=== PATIENT | male | born 1950 | race Caucasian/White ===

== ENCOUNTER → 2017-10-13 13:36 | Outpatient (CLI) | payer MEDICARE, SELFPAY ==
[2017-10-13 14:50] LABS: Prostate Specific Ag, Diagnost 7.73 ng/mL (0.0-4.0)
== END ==
PROVIDERS: Visit Provider Urology
DX: R97.20 Elevated prostate specific antigen [PSA] (principal)
CPT/HCPCS: 36415; 84153

== ENCOUNTER → 2017-10-31 13:07 | Outpatient (CLI) | payer MEDICARE, SELFPAY ==
--- NOTE | 2017-10-31 13:09 | XR_ITS ---
XR foot wt bearing LT 3V HISTORY: Left foot pain ORDERING PHYSICIAN: Aleena Tobin DPM PATIENT AGE: 67 years COMPARISON: None FINDINGS: No fracture or dislocation. No lytic or blastic change. There is normal mineralization.. Minimal osteoarthritic changes at the first metatarsophalangeal joint with minimal pes planus. Vascular calcifications are present. Small bone island involves the proximal phalanx of the second toe distally. IMPRESSION: 1. No acute finding. 2. Minimal osteoarthritic change first metatarsophalangeal joint with mild pes planus
== END ==
PROVIDERS: Visit Provider Podiatrist
DX: M79.673 Pain in unspecified foot (principal); B35.1 Tinea unguium
CPT/HCPCS: 73630; 87102; 87206; 87220

== ENCOUNTER → 2017-11-07 09:15 | Outpatient (CLI) | payer MEDICARE, OTHER, SELFPAY ==
--- NOTE | 2017-11-07 09:21 | US_ITS ---
US Arterial Ankle Brachial Ind ITS.REASON: skin changes, previous smoker ORDERING PHYSICIAN: Aleena Tobin DPM PATIENT AGE: 67 years TECHNIQUE: Segmental pressures obtained of both right and left leg. These are compared to brachial blood pressure to yield index at each level sampled including summary CORY. The data sheets from the procedure are available in PACS FINDINGS Rest study only performed today No prior studies available for comparison. Blood pressures reported are in millimeters mercury. RIGHT LEG CORY = 1.4. Right TBI is 1.0 Brachial BP: 169 Thigh BP: 173 Calf BP: 226 Ankle PT: 235 Ankle DP : 226 Digit =168 LEFT LEG CORY = 1.4 Left TBI is 0.8 Brachial BPD: 155 Thigh BP: 178 Calf BP: 247 Ankle PT:238 Ankle DP: 228 Digit = 133 Pulses and waveforms: Normal IMPRESSION: The ABIs as reported above are upper limits of normal at. The TBI's are within normal limits. Waveforms and pulses are unremarkable.
== END ==
PROVIDERS: Family Provider Nurse Practitioner Family; PCP Nurse Practitioner Family; Visit Provider Podiatrist
DX: R09.89 Other specified symptoms and signs involving the circulatory and respiratory systems (principal); R23.4 Changes in skin texture
CPT/HCPCS: 93922

== ENCOUNTER → 2018-04-19 08:45 | Outpatient (CLI) | payer MEDICARE, OTHER, SELFPAY ==
[2018-04-19 09:32] LABS: Blood Urea Nitrogen 12 mg/dL (7-18); Creatinine,Serum 0.98 mg/dL (0.70-1.30); Estimated Glomerular Filt Rate 77 ml/min (>60); GFR (African American) 93 ML/MIN (>60)
--- NOTE | 2018-04-19 09:44 | CT_ITS ---
CT chest w con HISTORY: Anemia, acute hemorrhagic anemia ITS.REASON: ANEMIA ORDERING PHYSICIAN: Olga Licea PATIENT AGE: 67 years COMPARISON: None TECHNIQUE: Axial images obtained following the administration of 75 mL of Isovue 370 . Sagittal, and coronal reformatted images are also generated and reviewed. All CT scans at the facility use one or more dose reduction, viz: automated exposure control, ma/kV adjustment per patient size (including targeted exams where dose is matched to indication, i.e. head), or iterative reconstruction technique. FINDINGS: No mediastinal or hilar mass or adenopathy. There are coronary artery calcifications present. No evidence of aortic aneurysm or dissection. No central pulmonary embolus. No central obstructing lesions are evident. No suspicious pulmonary masses. There is bronchiectasis involving the right lower lobe bronchi with bronchial thickening with some mild right basilar atelectasis. A nodular opacity is present in the right lung base medially at 8 mm and may contain some central calcification No lobar consolidation or collapse. There are minimal fibrotic changes in left apex. There are mild degenerative changes in the thoracic spine. IMPRESSION: 1. Mild diffuse bronchiectasis in the basilar segments of the right lower lobe with mild atelectatic change. 2. Otherwise negative the chest with contrast
--- NOTE | 2018-04-19 09:45 | CT_ITS ---
CT abdomen pelvis w con CLINICAL INDICATION: ITS.REASON: ANEMIA ORDERING PHYSICIAN: Olga Licea PATIENT AGE: 67 years COMPARISON: None TECHNIQUE: Axial images obtained with sagittal and coronal reformats. All CT scans at the facility use one or more dose reduction, viz: automated exposure control, ma/kV adjustment per patient size (including targeted exams where dose is matched to indication, i.e. head), or iterative reconstruction technique. PROCEDURE: Oral Contrast: Redicat IV Contrast: 75 mL of Isovue-370 performed in conjunction with chest CT. FINDINGS: The liver, gallbladder, spleen, adrenal glands, and pancreas have an unremarkable appearance. There are punctate bilateral renal calculi measuring up to 3 mm in the lower pole on the right and 3 mm in the mid polar region on the left. No renal mass or hydronephrosis. No ureteral calculi. No evidence of appendicitis or diverticulitis. There is mild diffuse diverticulosis of the descending and sigmoid colon. No pelvic mass abnormal fluid collection or focal inflammatory change evident within the pelvis. The prostate measures approximately 4 x 5 x 3.7 cm. Prior left inguinal hernia repair. There are degenerative changes in the lumbar spine with bulging disc at L2-L3, L3-L4, L4-L5, and L5-S1 IMPRESSION: 1. No acute abdominal or pelvic findings. 2. Diffuse diverticulosis of the descending and sigmoid colon. 3. Nonobstructing bilateral renal calculi. 4. Mild prostate enlargement
== END ==
PROVIDERS: Family Provider Nurse Practitioner Family; PCP Nurse Practitioner Family; Visit Provider Nurse Practitioner Family
DX: D62 Acute posthemorrhagic anemia (principal)
CPT/HCPCS: 36415; 71260; 74177; 82565; 84520; Q9967

== ENCOUNTER → 2018-08-14 08:51 | Outpatient (POV) | payer MEDICARE, OTHER, SELFPAY | PROVIDERS: Visit Provider Nurse Practitioner Acute Care | DX: Z00.00 Encounter for general adult medical examination without abnormal findings (principal) ==

== ENCOUNTER → 2018-11-09 11:45 | Outpatient (CLI) | payer MEDICARE, OTHER, SELFPAY ==
[2018-11-11 06:42] LABS: PSA, Free 7.24 ng/mL; Prostate Specific Ag 14.8 ng/mL (0.0-4.0)
== END ==
PROVIDERS: Visit Provider Urology
DX: R97.20 Elevated prostate specific antigen [PSA] (principal)
CPT/HCPCS: 36415; 84153; 84154

== ENCOUNTER → 2019-02-26 14:13 | Outpatient (POV) | payer MEDICARE, OTHER, SELFPAY | PROVIDERS: PCP Nurse Practitioner Family; Visit Provider Nurse Practitioner Family | DX: Z00.00 Encounter for general adult medical examination without abnormal findings (principal) ==

== ENCOUNTER → 2019-03-08 14:01 | Outpatient (CLI) | payer MEDICARE, OTHER, SELFPAY ==
[2019-03-08 14:37] LABS: Basophils % 0.5 % (0.1-2.0); Eosinophils # 0.2 K/mm3 (0.0-0.4); Eosinophils % 2.7 % (0.1-12.0); Hematocrit 39.5 % (42.0-52.0); Hemoglobin 13.1 g/dL (14.1-18.0); Lymphocytes # 1.5 K/mm3 (0.7-4.5); Lymphocytes % 16.3 % (10-50); Mean Corpuscular HGB Conc 33.3 g/dL (31.8-35.4); Mean Corpuscular Hemoglobin 31.1 pg (27.0-31.2); Mean Corpuscular Volume 93.3 fl (80-94); Mean Platelet Volume 6.8 fl (7.4-10.4); Monocytes # 0.6 K/mm3 (0.1-1.0); Monocytes % 6.7 % (1.7-9.3); Neutrophils # 6.8 K/mm3 (1.8-7.8); Platelet Count 202 K/mm3 (142-424); Red Blood Count 4.23 M/mm3 (4.60-6.20); Red Cell Distribution Width 13.1 % (11.5-17.5); White Blood Count 9.2 K/mm3 (4.8-10.8)
[2019-03-08 16:36] LABS: Alanine Aminotransferase 19 U/L (12-78); Albumin Level 3.8 gm/dL (3.4-5.0); Albumin/Globulin Ratio 1.5 (1.1-1.8); Alkaline Phosphatase 68 U/L (46-116); Anion Gap 11.6 mEq/L (5-15); Aspartate Amino Transferase 17 U/L (15-37); Bilirubin,Total 0.4 mg/dL (0.2-1.0); Blood Urea Nitrogen 12 mg/dL (7-18); C-Reactive Protein 0.3 mg/dL (0.0-0.9); Calcium 8.6 mg/dL (8.5-10.1); Carbon Dioxide 27 mmol/L (21.0-32.0); Chloride 104 mmol/L (98-107); Creatinine,Serum 1.06 mg/dL (0.70-1.30); Estimated Glomerular Filt Rate 70 ml/min (>60); Ferritin 25 ng/mL (8-388); GFR (African American) 85 ML/MIN (>60); Globulin 2.6 gm/dl (1.3-3.2); Glucose 89 mg/dL (74-106); Potassium 3.6 mmoL/L (3.5-5.1); Sodium 139 mmol/L (136-145); Total Protein,Serum 6.4 gm/dL (6.4-8.2)
[2019-03-08 16:39] LABS: Prostate Specific Ag, Diagnost 4.56 ng/mL (0.0-4.0)
[2019-03-08 17:38] LABS: Erythrocyte Sedimentation Rate 17 mm/hr (0-20)
[2019-03-10 08:26] LABS: Iron 79 ug/dL (38-169); UIBC 203 ug/dL (111-343)
[2019-03-10 12:50] LABS: Iron Saturation 28 % (15-55)
[2019-03-10 12:51] LABS: Vitamin B12 811 pg/mL (232-1245); Vitamin D 25 Hydroxy 35.8 ng/mL (30.0-100.0)
== END ==
PROVIDERS: Nurse Practitioner Family; Visit Provider Urology
DX: R97.20 Elevated prostate specific antigen [PSA] (principal); K51.90 Ulcerative colitis, unspecified, without complications; K92.1 Melena
CPT/HCPCS: 36415; 80053; 82607; 82652; 82728; 83540; 83550; 84153; 85025; 85651; 86140

== ENCOUNTER → 2019-04-16 15:51 | Outpatient (POV) | payer MEDICARE, OTHER, SELFPAY | PROVIDERS: PCP Nurse Practitioner; Visit Provider Nurse Practitioner Family | DX: Z00.00 Encounter for general adult medical examination without abnormal findings (principal) ==

== ENCOUNTER → 2019-06-21 12:38 | Outpatient (CLI) | payer MEDICARE, OTHER, SELFPAY ==
[2019-06-22 10:48] LABS: PSA, Free 5.57 ng/mL; Prostate Specific Ag 12.2 ng/mL (0.0-4.0)
== END ==
PROVIDERS: Visit Provider Urology
DX: R97.20 Elevated prostate specific antigen [PSA] (principal); N39.9 Disorder of urinary system, unspecified
CPT/HCPCS: 36415; 84153; 84154

== ENCOUNTER → 2020-06-23 13:39 | Outpatient (CLI) | payer MEDICARE, OTHER, SELFPAY ==
[2020-06-25 11:53] LABS: PSA, Free 3.53 ng/mL; Prostate Specific Ag 8.9 ng/mL (0.0-4.0)
== END ==
PROVIDERS: Visit Provider Urology
DX: R97.20 Elevated prostate specific antigen [PSA] (principal)
CPT/HCPCS: 36415; 84153; 84154

== ENCOUNTER → 2021-01-29 10:20 | Outpatient (CLI) | payer MEDICARE, OTHER, SELFPAY ==
--- NOTE | 2021-01-29 10:23 | CT_ITS ---
PROCEDURE: CT CHEST WO/W CON CLINCAL INDICATION: COUGH Cough and left-sided chest COMPARISON: CT CHESTW CT chest w con from 04/19/2018 TECHNIQUE: IV Contrast: 75ml Isovue 370 Axial images obtained with sagittal and coronal reformats. All CT scans at the facility use one or more dose reduction, viz: automated exposure control, ma/kV adjustment per patient size (including targeted exams where dose is matched to indication, i.e. head), or iterative reconstruction technique. FINDINGS: HEART AND MEDIASTINAL STRUCTURES: No mediastinal or hilar mass or adenopathy. Coronary artery calcifications are present. The LUNGS AND PLEURAL SPACES: There is some scarring in the left apex. The right hemidiaphragm is elevated with atelectatic changes in the right lower lobe. Bronchiectasis is noted in the right lower lobe. 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 This has developed since the previous exam BONY STRUCTURES: There is an old 8th rib fracture posterior laterally on the left which was not present previously. There is also widening of the left 7th and 8th rib interspace with some herniation of lung into that interspace laterally. Has the patient had interval surgery or trauma on the left? Pleural thickening is present at the region of the 8th rib fracture. Atelectatic or fibrotic changes are present in the left lung base posterior laterally. ADDITIONAL FINDINGS: Fatty liver IMPRESSION: Persistent bronchiectasis in the right lower lobe. 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 There is some minimal pleural calcification between the 7th and 8th rib. Dictated by: Justice Santiago MD 01/29/2021 12:33 Justice Santiago MD in [place] 01/29/2021 12:33
[2021-01-29 11:08] LABS: Chloride 105 mmol/L (98-107)
[2021-01-29 11:09] LABS: Potassium 4.2 mmoL/L (3.5-5.1); Sodium 138 mmol/L (136-145)
[2021-01-29 11:11] LABS: Alanine Aminotransferase 16 U/L (12-78); Alkaline Phosphatase 79 U/L (38-126); Anion Gap 12.2 mEq/L (5-15); Aspartate Amino Transferase 28 U/L (17-59); Bilirubin,Total 0.7 mg/dl (0.2-1.3); Blood Urea Nitrogen 6 mg/dl (9-20); Carbon Dioxide 25 mmol/L (22.0-30.0); Estimated Glomerular Filt Rate 84 ml/min (>60); GFR (African American) 102 ML/MIN (>60)
[2021-01-29 11:12] LABS: Albumin Level 4.1 g/dl (3.5-5.0); Albumin/Globulin Ratio 1.5 (1.1-1.8); Globulin 2.7 g/dL (1.3-3.2); Glucose 97 mg/dl (74-100); Total Protein,Serum 6.8 g/dl (6.3-8.2)
== END ==
PROVIDERS: PCP Nurse Practitioner; Visit Provider Nurse Practitioner
DX: R05 Cough (principal); I10 Essential (primary) hypertension
CPT/HCPCS: 36415; 71270; 80053; Q9967

== ENCOUNTER → 2021-03-03 11:27 | Outpatient (CLI) | payer MEDICARE, OTHER, SELFPAY ==
[2021-03-03 10:40] VITALS: PULSE 78; PULSE 80
== END ==
PROVIDERS: PCP Nurse Practitioner; Visit Provider Internal Medicine Pulmonary Disease
DX: R06.00 Dyspnea, unspecified (principal)
CPT/HCPCS: 94060; 94618; 94640; 94726; 94729

== ENCOUNTER → 2021-03-06 12:42 | Outpatient (CLI) | payer MEDICARE, OTHER, SELFPAY | PROVIDERS: PCP Nurse Practitioner; Visit Provider Internal Medicine Pulmonary Disease | DX: R06.00 Dyspnea, unspecified (principal) | CPT/HCPCS: 94762 ==

== ENCOUNTER → 2021-06-23 13:27 | Outpatient (CLI) | payer MEDICARE, OTHER, SELFPAY ==
[2021-06-25 08:16] LABS: Prostate Specific Ag 10.3 ng/mL (0.0-4.0)
== END ==
PROVIDERS: Visit Provider Urology
DX: R97.20 Elevated prostate specific antigen [PSA] (principal)
CPT/HCPCS: 36415; 84153; 84154

== ENCOUNTER → 2021-10-29 11:12 | Outpatient (CLI) | payer MEDICARE, OTHER, SELFPAY ==
[2021-10-29 14:29] LABS: Alanine Aminotransferase 27 U/L (12-78); Albumin Level 3.7 g/dl (3.5-5.0); Albumin/Globulin Ratio 1.5 (1.1-1.8); Alkaline Phosphatase 61 U/L (38-126); Anion Gap 9.4 mEq/L (5-15); Aspartate Amino Transferase 27 U/L (17-59); Basophils # 0.1 K/mm3 (0-0.2); Basophils % 0.7 % (0.1-2.0); Bilirubin,Total 0.6 mg/dl (0.2-1.3); Blood Urea Nitrogen 12 mg/dl (9-20); Calcium 8.3 mg/dl (8.4-10.2); Carbon Dioxide 26 mmol/L (22.0-30.0); Chloride 106 mmol/L (98-107); Eosinophils # 0.2 K/mm3 (0.0-0.4); Eosinophils % 2.5 % (0.1-12.0); Estimated Glomerular Filt Rate 96 ml/min (>60); GFR (African American) 116 ML/MIN (>60); Globulin 2.4 g/dL (1.3-3.2); Glucose 146 mg/dl (74-100); Hematocrit 37.2 % (42.0-52.0); Hemoglobin 12.4 g/dL (14.1-18.0); Lymphocytes # 1.5 K/mm3 (0.7-4.5); Mean Corpuscular HGB Conc 33.4 g/dL (31.8-35.4); Mean Corpuscular Volume 95.8 fl (80-94); Mean Platelet Volume 7.9 fl (7.4-10.4); Monocytes # 0.5 K/mm3 (0.1-1.0); Monocytes % 6.7 % (1.7-9.3); Neutrophils # 5.6 K/mm3 (1.8-7.8); Platelet Count 181 K/mm3 (142-424); Potassium 3.4 mmoL/L (3.5-5.1); Red Blood Count 3.89 M/mm3 (4.60-6.20); Red Cell Distribution Width 14.4 % (11.5-17.5); Sodium 138 mmol/L (136-145); Total Protein,Serum 6.1 g/dl (6.3-8.2); White Blood Count 7.8 K/mm3 (4.8-10.8)
[2021-10-29 14:47] LABS: 25-OH Vitamin D, Total 33.4 ng/mL (30-100)
[2021-10-29 15:18] LABS: Vitamin B12 762 pg/mL (239-931)
== END ==
PROVIDERS: Visit Provider Nurse Practitioner Family
DX: K52.9 Noninfective gastroenteritis and colitis, unspecified (principal); E55.9 Vitamin D deficiency, unspecified; R14.0 Abdominal distension (gaseous)
CPT/HCPCS: 36415; 80053; 82306; 82607; 85025

== ENCOUNTER → 2021-11-12 09:03 | Outpatient (CLI) | payer MEDICARE, OTHER, SELFPAY ==
[2021-11-12 14:30] LABS: Iron 84 ug/dL (49-181)
[2021-11-12 14:39] LABS: Total Iron Binding Capacity 337 ug/dL (261-462)
[2021-11-12 15:05] LABS: Ferritin 13.5 ng/ml (17.9-464)
== END ==
PROVIDERS: Visit Provider Nurse Practitioner Family
DX: D64.9 Anemia, unspecified (principal)
CPT/HCPCS: 36415; 82728; 83540; 83550

== ENCOUNTER → 2021-12-05 09:00 | Outpatient (CLI) | payer MEDICARE, OTHER, SELFPAY ==
[2021-12-08 14:37] LABS: Occult Blood,Stool Negative (Negative)
== END ==
PROVIDERS: Visit Provider Nurse Practitioner Family
DX: D64.9 Anemia, unspecified (principal)
CPT/HCPCS: 82272; G0328

== ENCOUNTER → 2021-12-06 09:40 | Outpatient (CLI) | payer MEDICARE, OTHER, SELFPAY ==
[2021-12-08 14:38] LABS: Occult Blood,Stool Negative (Negative)
== END ==
PROVIDERS: Visit Provider Nurse Practitioner Family
DX: D64.9 Anemia, unspecified (principal)
CPT/HCPCS: 82272; G0328

== ENCOUNTER → 2021-12-07 09:20 | Outpatient (CLI) | payer MEDICARE, OTHER, SELFPAY ==
[2021-12-08 14:38] LABS: Occult Blood,Stool Negative (Negative)
== END ==
PROVIDERS: Visit Provider Nurse Practitioner Family
DX: D64.9 Anemia, unspecified (principal)
CPT/HCPCS: 82272; G0328

== ENCOUNTER 2024-06-06 06:56 | Day surgery (SDC) | payer MEDICARE, OTHER, SELFPAY ==
[2024-06-05 08:33] VITALS: BMI 38.0
[2024-06-06 07:12] VITALS: BP 156/81; PULSE 86; RESP 16; TEMP 36.6; O2SAT 96
[2024-06-06] MEDS: LACTATED RINGERS 1000ML 1,000 ML 25 ML IV (07:19)
--- NOTE | 2024-06-06 07:24 | EXP.ANES.CKL ---
[facility] Disclaimer: The information contained in this section may have been updated after the patient was seen, as this information can be updated by other users. Medical History Seasonal allergies BPH (benign prostatic hyperplasia) Hypertension Surgical History History of bilateral knee arthroplasty H/O colonoscopy Family History Other No significant family history Social History Smoking Status: Never smoker alcohol intake: current alcohol intake frequency: a few times a month substance use type: denies use current occupational status: employed Travel in the last 8 weeks: None household members: spouse housing: house caffeine: No [facility] Anesthesia Checklist Patient Identification Patient Identification: Arm Band Structural Data Admitted From: Home Planned Operative Procedure/s: Colonoscopy Consent for Planned Operative Procedure(s) Verified: Yes Verified Documents: Surgical Consent and History and Physical NPO Status Verified Time NPO: 00:00 Additional verifications Anesthesia Reactions: No Hx Blood Transfusions: No Blood Transfusion Reaction: No Airway Assessment Mallampati Score:: Class II C-Spine Mobility Assessed: Yes TMJ Mobility Assessed: Yes Dentition: Dentures-good fit (removed) Neurological Assessment Level of Consciousness: Awake, Alert and Appropriate Anesthesia Plan Anesthesia Risk discussed: Yes Anesthesia Plan: Verified ASA Class: II Anesthesia Type: MAC
[2024-06-06 07:56] VITALS: O2SAT 96
--- NOTE | 2024-06-06 07:59 | P.HP_ITS ---
History of Present Illness *Admission Date: 06/06/24 *Reason for visit:: Personal history of adenomatous colon polyps *History of present illness: Mr. Mendieta is a 73-year-old gentleman who is here for surveillance colonoscopy secondary to a personal history of adenomatous polyps. He had a colonoscopy in May 2018 and had a 6 to 7 mm ascending tubular adenoma removed. He had another colonoscopy last year with me at which time a large advanced adenoma was removed. The examination is deemed medically necessary for colonoscopy. The patient has been seen, interviewed and examined prior to the procedure by both myself and the anesthesia provider. [facility] Disclaimer: The information contained in this section may have been updated after the patient was seen, as this information can be updated by other users. Medical History (Updated 06/06/24 @ 08:00 by Drake Mix II, MD) Seasonal allergies BPH (benign prostatic hyperplasia) Hypertension Surgical History History of bilateral knee arthroplasty H/O colonoscopy Family History Other No significant family history Social History Smoking Status: Never smoker alcohol intake: current alcohol intake frequency: a few times a month substance use type: denies use current occupational status: employed Travel in the last 8 weeks: None household members: spouse housing: house caffeine: No Other Medical History Have you received the Flu Vaccine for this season: Yes Have you received the Pneumonia Vaccine: Yes Review of Systems Review of Systems Review of systems (narrative): Negative *Cardiovascular Comments: Negative *Gastrointestinal Comments: Negative *Genitourinary Comments: Negative *Musculoskeletal Comments: Negative *Neurologic Comments: Negative Meds Home Medications and Allergies Home Medications ?Medication ?Instructions ?Recorded ?Confirmed ?Type finasteride 5 mg tablet 5 mg PO DAILY prostate 10/13/17 06/05/24 History lorazepam 1 mg tablet 0.5 mg PO QHS Anxiety 10/13/17 06/05/24 History montelukast 10 mg tablet 10 mg PO QHS allergies 10/13/17 06/05/24 History duloxetine 30 mg capsule,delayed 30 mg PO BID Depression 10/31/17 06/05/24 History release tamsulosin 0.4 mg capsule 0.4 mg PO DAILY prostate 04/13/18 06/05/24 History trazodone 150 mg tablet 150 mg PO DAILY sleep 04/13/18 06/05/24 History sulfasalazine 500 mg tablet 0.5 g PO BID 11/09/18 06/05/24 History albuterol sulfate 90 mcg/actuation 1 inh inhalation QID PRN shortness 02/05/21 06/05/24 Rx aerosol inhaler of breath or wheezing #8.5 grams azelastine 137 mcg (0.1 %) nasal 1 spray intranasal BID #30 mL 02/05/21 06/05/24 Rx spray esomeprazole magnesium 40 mg 40 mg PO DAILY #30 caps 02/05/21 06/05/24 Rx capsule,delayed release (Nexium) fluticasone propionate 50 1 spray intranasal DAILY #16 grams 02/05/21 06/05/24 Rx mcg/actuation nasal spray,suspension (Children's Flonase Allergy Relief) gabapentin 300 mg capsule 300 mg PO TID 02/05/21 06/05/24 History loratadine 10 mg tablet (Allergy 10 mg PO DAILY 02/05/21 06/05/24 History Relief (loratadine)) losartan 100 mg tablet 100 mg PO DAILY 02/05/21 06/05/24 History New Prescriptions to Start Prescriptions: Allergies Allergy/AdvReac Type Severity Reaction Status Date / Time No Known Allergies Allergy Verified 06/06/24 07:11 Exam Data for Last 24 hours Vital signs and Labs for Last 24 Hours: Temp Pulse Resp BP Pulse Ox O2 Del Method 97.8 F 86 16 156/81 H 96 Room Air 06/06/24 07:12 06/06/24 07:12 06/06/24 07:12 06/06/24 07:12 06/06/24 07:12 06/06/24 07:12 I & O for Last 24 hours: Intake & Output 06/03/24 06/04/24 06/05/24 06/06/24 23:59 23:59 23:59 23:59 Weight 250 lb *Routine HEENT Exam Head: Present normocephalic Eye: Present EOMI and PERRL ENT: Present mucous membranes moist *Routine Neck Exam Neck: Present supple *Routine Respiratory Exam Respiratory: Present CTA bilaterally *Routine Cardiovascular Exam Cardiovascular: Present RRR *Routine Abdominal Exam Abdominal: Present soft and normoactive bowel sounds; Absent tenderness *Routine Rectal Exam Rectal:: deferred *Routine Genitalia Exam Genitalia:: deferred *Routine Extremities Exam Extremities: Absent cyanosis, clubbing or edema *Routine Skin Exam Skin: Present warm; Absent rash *Routine Neurological Exam Neurological: Present alert and oriented X3 Assessment and Plan *Assessment and plan (1) Personal history of adenomatous and serrated colon polyps: Status: Acute Category: Medical Code(s): Z86.0101 - Personal history of adenomatous and serrated colon polyps Plan A/P: 1. Personal history of adenomatous polyps is the preprocedural diagnosis. The patient will be anesthetized/sedated using MAC sedation. The patient has been seen and examined. Cardiac and lung assessment prior to the examination is stable. Proceed with planned colonoscopy
--- NOTE | 2024-06-06 08:03 | HMH.PROCNOTE ---
[facility] Procedure Note Date: 06/06/24 Time: 08:21 Procedure Note:: Colonoscopy Procedure Report: Colonoscopy with cold snare polypectomy Endoscopist: Drake Mix II, MD Referring physician: BARRON Sexton Date of Procedure: June 06, 2024 Equipment: Olympus 190 variable stiffness pediatric colonoscope Sedation: MAC sedation Indication: Mr. Mendieta is a 73-year-old gentleman with a personal history of Colon polyps. He had a colonoscopy in May 2018 at which time a single ascending 6 to 7 mm tubular adenoma was removed. His follow-up surveillance colonoscopy last year revealed a larger advanced adenoma and adenomatous polyps. He is here for repeat surveillance. The patient reports no abdominal pain, weight loss, change in his bowel habits or rectal bleeding. He reports no family history of colon cancer. Procedure: Prior to the procedure, a history and physical exam was performed, and patient's medications and allergies were reviewed. The risks, benefits and alternatives of the sedation and procedure were discussed with the patient. All questions were answered and informed consent was obtained. The patient was brought to the procedure room. Patient identification and proposed procedure were verified by the physician and the nurse. The patient was placed in a left lateral decubitus position and the scope was passed under direct vision. Throughout the procedure, the patient's blood pressure, pulse, and oxygen saturations were monitored continuously. The colonoscopy was accomplished without difficulty. The patient tolerated the procedure well. Findings: On digital rectal examination there was normal rectal tone. There were no external hemorrhoids. The prostate was 2+, mildly firm but symmetric without nodules. The colonoscope was introduced through the anal canal to the rectum and advanced to the cecum. The ileocecal valve and appendiceal orifice were identified. The scope was advanced a short distance into the ileum which appeared grossly normal. The scope was then withdrawn into the colon. There were 6 polyps (cecum x 1 (4 mm), ascending x 2 (4 and 8 mm) and descending x 3 (3, 4 and 4 mm)). These were all removed via cold snare polypectomy. The remaining cecum, ascending and transverse colon and mucosa were grossly normal. There were scattered extensive diverticuli throughout the descending and sigmoid colon (LEFT colon). The rectum itself was normal. Upon retroflexion within the rectum there were grade 2 internal hemorrhoids. The preparation was excellent throughout with [place] Preparation Score of 9. The cecal time was 14 minutes. Impression: 1. Diminutive colonic polyps x 6 2. Extensive left-sided diverticulosis 3. Grade 2 internal hemorrhoids Plan: I will follow-up the polyp histology and recommend repeat surveillance colonoscopy in 3 years based upon his personal history of multiple adenomatous polyps and advanced adenoma. I would continue psyllium fiber supplementation on a maintenance basis.
[2024-06-06 08:26] VITALS: BP 102/65; PULSE 86; RESP 16; TEMP 36.6; O2SAT 91
[2024-06-06 08:36] VITALS: BP 104/66; PULSE 81; RESP 16; O2SAT 93
[2024-06-06 08:46] VITALS: BP 114/76; PULSE 87; RESP 18; O2SAT 93
[2024-06-06 08:56] VITALS: BP 127/68; PULSE 92; RESP 18; O2SAT 94
== END 2024-06-06 09:05 | disposition home or self-care (01) ==
PROVIDERS: PCP Nurse Practitioner; Visit Provider Internal Medicine Gastroenterology
PROC: (CPT 45385; principal; 2024-06-06 08:30)
DX: Z86.0101 Personal history of adenomatous and serrated colon polyps (principal); K63.5 Polyp of colon; K57.30 Diverticulosis of large intestine without perforation or abscess without bleeding; K64.1 Second degree hemorrhoids
CPT/HCPCS: 45385; 88305; J7120

== ENCOUNTER 2024-07-29 15:36 | Emergency (ER) | payer MEDICARE, OTHER, SELFPAY ==
[2024-07-29 15:38] VITALS: BP 174/105; PULSE 93; RESP 20; TEMP 36.8; O2SAT 93; BMI 36.9
--- NOTE | 2024-07-29 15:38 | ED_ITS ---
<Statement entered by India Clements DO - 07/29/24 18:43> I was consulted by the HORACIO, and we discussed the complexity of the problems being addressed. I approved the treatment and management plan for this patient's care in the emergency department, thus performing a substantive portion of the medical decision making. India Clements DO Discharge Plan Disposition Patient Disposition: Home, Self-Care Condition: Good Prescriptions Prescriptions: New prednisone 50 mg tablet 50 mg PO DAILY 5 Days Qty: 5 0RF albuterol sulfate 90 mcg/actuation HFA aerosol inhaler 1 inh inhalation Q4H PRN (Reason: shortness of breath or wheezing) Qty: 8.5 0RF [id number] [Bromfed DM] 2-30-10 mg/5 mL syrup 5 ml PO Q4H PRN (Reason: sinus symptoms) Qty: 118 0RF doxycycline hyclate 100 mg capsule 100 mg PO BID 10 Days Qty: 20 0RF No Action lorazepam 1 mg tablet 0.5 mg PO QHS montelukast 10 mg tablet 10 mg PO QHS finasteride 5 mg tablet 5 mg PO DAILY tamsulosin 0.4 mg capsule 0.4 mg PO DAILY trazodone 150 mg tablet 150 mg PO DAILY sulfasalazine 500 mg tablet 0.5 g PO BID losartan 100 mg tablet 100 mg PO DAILY loratadine [Allergy Relief (loratadine)] 10 mg tablet 10 mg PO DAILY gabapentin 300 mg capsule 300 mg PO TID azelastine 137 mcg (0.1 %) aerosol,spray 1 spray INTRANASAL BID Qty: 30 3RF Rx Instructions: administer into each nostril fluticasone propionate [Children's Flonase Allergy Rlf] 50 mcg/actuation spray,suspension 1 spray INTRANASAL DAILY Qty: 16 4RF Rx Instructions: administer into each nostril albuterol sulfate 90 mcg/actuation HFA aerosol inhaler 1 inh INHALATION QID PRN (Reason: shortness of breath or wheezing) Qty: 8.5 12RF esomeprazole magnesium [Nexium] 40 mg capsule,delayed release(DR/EC) 40 mg PO DAILY Qty: 30 2RF duloxetine 30 mg capsule,delayed release(DR/EC) 30 mg PO BID Referrals Follow up/Referrals: Maya Torres, [facility] [Primary Care Provider] - See instructions Chelsey Larsen MD [Physician] - See instructions Activity Restrictions/Add. Instructions Additional Instructions/Restrictions: Please take your antibiotic till it is all gone. Please call tomorrow to make your appointment with pulmonology. Follow-up with your PCP if your symptoms do not improve change or worsen or return to the ER as needed. Clinical Impressions Clinical Impression: Bronchiectasis Qualifiers: Bronchiectasis type: with acute lower respiratory infection Qualified Code(s): J47.0 - Bronchiectasis with acute lower respiratory infection Print Language Print Language: Urdu Discharge ED Provider: India Clements HPI <SOILA Johns - Last Filed: 07/29/24 18:30> General Chief Complaint: Shortness of Breath/Dyspnea Stated Complaint: SOA,congestion Time Seen by Provider: 07/29/24 15:38 History of Present Illness HPI narrative: Patient presents for 3 days of increasing shortness of breath/dyspnea. Patient reports that he has been feeling short of breath with a deep coarse nonproductive cough as well. He denies fever chills hemoptysis hematochezia melena nausea vomiting diarrhea chest pain headache diaphoresis. He does have a known history of bronchiectasis but is not on maintenance medication currently according to him. Related Data Home Medications ?Medication ?Instructions ?Recorded ?Confirmed finasteride 5 mg tablet 5 mg PO DAILY prostate 10/13/17 06/05/24 lorazepam 1 mg tablet 0.5 mg PO QHS Anxiety 10/13/17 06/05/24 montelukast 10 mg tablet 10 mg PO QHS allergies 10/13/17 06/05/24 duloxetine 30 mg capsule,delayed 30 mg PO BID Depression 10/31/17 06/05/24 release tamsulosin 0.4 mg capsule 0.4 mg PO DAILY prostate 04/13/18 06/05/24 trazodone 150 mg tablet 150 mg PO DAILY sleep 04/13/18 06/05/24 sulfasalazine 500 mg tablet 0.5 g PO BID 11/09/18 06/05/24 gabapentin 300 mg capsule 300 mg PO TID 02/05/21 06/05/24 loratadine 10 mg tablet (Allergy 10 mg PO DAILY 02/05/21 06/05/24 Relief (loratadine)) losartan 100 mg tablet 100 mg PO DAILY 02/05/21 06/05/24 Previous Rx's ?Medication ?Instructions ?Recorded albuterol sulfate 90 mcg/actuation 1 inh inhalation QID PRN shortness 02/05/21 aerosol inhaler of breath or wheezing #8.5 grams azelastine 137 mcg (0.1 %) nasal 1 spray intranasal BID #30 mL 02/05/21 spray esomeprazole magnesium 40 mg 40 mg PO DAILY #30 caps 02/05/21 capsule,delayed release (Nexium) fluticasone propionate 50 1 spray intranasal DAILY #16 grams 02/05/21 mcg/actuation nasal spray,suspension (Children's Flonase Allergy Relief) albuterol sulfate 90 mcg/actuation 1 inh inhalation Q4H PRN shortness 07/29/24 aerosol inhaler of breath or wheezing #8.5 grams kqoxjfouwjqeinu-jwmypjpxkyfhetj-FZ 5 ml PO Q4H PRN sinus symptoms 07/29/24 2 mg-30 mg-10 mg/5 mL oral syrup #118 mL (Bromfed DM) doxycycline hyclate 100 mg capsule 100 mg PO BID 10 days #20 caps 07/29/24 prednisone 50 mg tablet 50 mg PO DAILY 5 days #5 tabs 07/29/24 Allergies Allergy/AdvReac Type Severity Reaction Status Date / Time No Known Allergies Allergy Verified 06/06/24 07:11 [facility] <SOILA Johns - Last Filed: 07/29/24 18:30> [facility] Disclaimer: The information contained in this section may have been updated after the patient was seen, as this information can be updated by other users. Medical History (Updated 07/29/24 @ 17:02 by SOILA Johns) Seasonal allergies BPH (benign prostatic hyperplasia) Hypertension Surgical History History of bilateral knee arthroplasty H/O colonoscopy Family History Other No significant family history Social History Smoking Status: Never smoker alcohol intake: current alcohol intake frequency: a few times a month substance use type: denies use current occupational status: employed Travel in the last 8 weeks: None household members: spouse housing: house caffeine: No Have you lived/traveled outside [place] in past 30 days?: No Contact w/someone who lives/traveled outside [place] past 30 days?: No Exposure to someone with infectious disease in past 14 days?: No Do you have a fever (greater than 100.4 F or 38 C)?: No Have you tested positive for COVID-19: No Exposed to someone with COVID-19 in past 14 days?: No Do you have a sore throat?: No Do you have a cough?: Yes Do you have any weakness?: No Do you have any diarrhea?: No Are you experiencing any unusual bleeding?: No Do you have any muscle aches/pain?: No Do you have any abdominal pain?: No Are you experiencing loss of taste or smell?: No Other Medical History Have you received the Flu Vaccine for this season: Yes Have you received the Pneumonia Vaccine: Yes <SOILA Johns - Last Filed: 07/29/24 18:30> ROS Obtained: Yes Systems reviewed as appropriate & no additional complaints except as documented Physical Exam <SOILA Johns - Last Filed: 07/29/24 18:30> General General appearance: alert and in no apparent distress Respiratory Respiratory exam: Present normal lung sounds bilaterally Cardiovascular Cardiovascular exam: Present regular rate Neurological Exam Neurological exam: Present alert and oriented X3 HEART Score <SOILA Johns - Last Filed: 07/29/24 18:30> HEART Score HEART Score assessment performed?: Yes History (anamnesis): Slightly suspicious ECG: Non-specific disturbance Age: >65 years Risk factors: 3 or more risk factors Troponin: </= normal limit HEART Score: 5 Critical Care <SOILA Johns - Last Filed: 07/29/24 18:30> Critical Care Time Critical Care Time: No Medical Decision Making <SOILA Johns - Last Filed: 07/29/24 18:30> Medical Records Medical records reviewed: Yes I reviewed the patient's medical records. Joel Inquiry Pt receiving controlled substance: No Vital Signs Vital Signs: 07/29/24 15:38 07/29/24 16:00 07/29/24 16:30 Temperature 98.2 F Temperature Source Oral Pulse Rate 92 H 91 H Pulse Rate [Right Radial] 93 H Respiratory Rate 20 13 20 Blood Pressure 156/85 H 146/80 H Blood Pressure [Right Arm] 174/105 H Blood Pressure Mean [Right Arm] 128 02 Sat by Pulse Oximetry 93 L 91 L 92 L Oxygen Delivery Method Room Air Room Air Room Air 07/29/24 17:20 Temperature 97.8 F Temperature Source Oral Pulse Rate 84 Pulse Rate [Right Radial] Respiratory Rate 21 Blood Pressure 146/80 H Blood Pressure [Right Arm] Blood Pressure Mean [Right Arm] 02 Sat by Pulse Oximetry Oxygen Delivery Method Room Air Lab Data Lab results reviewed: Yes I reviewed the patient's lab results. Labs: Lab Results 07/29/24 15:40: SARS-CoV-2 (PCR) Not detected, Influenza Type A (PCR) Not detected, Influenza Type B (PCR) Not detected, RSV (PCR) Not detected, Rhinovirus (PCR) Not detected 07/29/24 15:46: WBC 9.1, RBC 4.10 L, Hgb 12.6 L, Hct 37.0 L, MCV 90.2, MCH 30.7, MCHC 34.1, RDW 12.9, Plt Count 233, MPV 9.5, Neut % (Auto) 64.8, Lymph % (Auto) 18.8, Harmon % (Auto) 9.2, Eos % (Auto) 5.4, Baso % (Auto) 0.9, Neut # (Auto) 5.9, Lymph # (Auto) 1.7, Harmon # (Auto) 0.8, Eos # (Auto) 0.5 H, Baso # (Auto) 0.1, PT 10.8, INR 0.96, D-Dimer 0.93 H, Sodium 141, Potassium 3.7, Chloride 104, Carbon Dioxide 31 H, Anion Gap 9.7, BUN 12, Creatinine 0.90, Estimated Creat Clear 109, Estimated GFR 83, Est GFR ( Amer) 101, Glucose 97, Calcium 8.9, Total Bilirubin 0.3, AST 33, ALT 25, Alkaline Phosphatase 67, Troponin I < 0.01, NT-Pro-B Natriuret Pep 46.4, Total Protein 6.7, Albumin 4.0, Globulin 2.7, Albumin/Globulin Ratio 1.5, Procalcitonin 0.049, TSH 2.82, Free T4 Index 1.9 L, Thyroxine (T4) 5.4 L, T3 Uptake 35 07/29/24 15:51: VBG pH 7.37, VBG pCO2 45.6, VBG pO2 54.6 H, VBG HCO3 25.8, VBG Total CO2 27.2 H, VBG O2 Saturation 87.0 H, VBG Base Excess 0.5, VBG Lactic Acid 1.8, Urine Color Yellow, Urine Appearance Clear, Urine pH 7.5, Ur Specific [place] 1.020, Urine Protein Negative, Urine Glucose (UA) Negative, Urine Ketones Negative, Urine Blood Negative, Urine Nitrate Negative, Urine Bilirubin Negative, Urine Urobilinogen 0.2, Ur Leukocyte Esterase Negative, Urine RBC None, Urine WBC Occasional, Ur Squamous Epith Cells Occasional, Urine Bacteria Trace 07/29/24 15:46 07/29/24 15:46 Response Orders (Tests/Meds): ED MEDICATIONS Discontinued Medications Generic Name Dose Route Start Last Admin Trade Name Freq PRN Reason Stop Dose Admin Albuterol/Ipratropium 3 ml 07/29/24 15:49 07/29/24 16:17 Ipratropium/Albuterol 3 Ml Neb IH 07/29/24 15:50 3 ml ONCE ONE Administration Dexamethasone Sodium Phosphate 10 mg 07/29/24 15:49 07/29/24 16:17 Dexamethasone 4mg/Ml 5ml Mdv IV 07/29/24 15:50 10 mg ONCE ONE Administration Doxycycline Hyclate 100 mg 07/29/24 17:03 07/29/24 17:12 Doxycycline Hycl 100 Mg Tablet PO 07/29/24 17:04 100 mg ONCE ONE Administration ORDERS Category Date Time Status Chest XR 2 view (NOT portable) [XR chest 2V] Stat Exams 07/29/24 15:49 Completed BNP [NT Pro Brain Natriuretic Pep.] Stat Lab 07/29/24 15:46 Completed CBC w/Auto Diff [Complete Blood Count Auto Diff] Stat Lab 07/29/24 15:46 Completed CMP [Comprehensive Metabolic Panel] Stat Lab 07/29/24 15:46 Completed D-Dimer Stat Lab 07/29/24 15:46 Completed INR [Prothrombin Time INR] Stat Lab 07/29/24 15:46 Completed Mini Respiratory Panel Stat Lab 07/29/24 15:40 Completed Procalcitonin Stat Lab 07/29/24 15:46 Completed Thyroid Panel Stat Lab 07/29/24 15:46 Completed Trop I [Troponin I] Stat Lab 07/29/24 15:46 Completed UA [Urinalysis and Microscopic] Stat Lab 07/29/24 15:51 Completed Blood Culture Stat Micro 07/29/24 15:51 Received VBG [Venous Blood Gas] Stat RT 07/29/24 15:51 Completed MDM Narrative Medical Decision Narrative: In summary patient is a 73-year-old male who presents to the emergency department for evaluation of cough and shortness of breath. Patient is initially hypertensive at 174/105 with a pulse of 93 breathing 20 times a minute satting at 93% on room air upon arrival, and afebrile at 98.2. Physical exam is remarkable for tachypnea and increased work of breathing but no accessory muscle use currently, breath sounds show late inspiratory and expiratory wheezes/rales. Heart sounds are normal patient has 2+ dependent edema in the bilateral lower extremities but denies history of heart failure or heart attack. Differential diagnosis includes bronchiectasis flare versus lower respiratory tract infection versus ACS versus CHF etc. Initial workup will be conducted with hematologic labs respiratory swabs urinalysis plain film chest x-ray. Initial interventions include DuoNeb Decadron for now. Initial workup reviewed by me and his CBC shows a white count of 9.1 with no shift, INR is 0.96, D-dimer 0.93 and via years criteria patient is excluded for PE, VBG shows a pH of 7.37 with a pCO2 of 45.6 venous blood gas shows a lactate of 1.8, CMP is significant for CO2 of 31 and the remainder of his CMP is nonactionable, his initial troponin is undetectable at less than 0.01, urinalysis is bland with no protein or blood or ketones, and his respiratory panel is negative for flu COVID RSV and rhinovirus. My informal interpretation of his plain film chest x-ray shows questionable opacities in the right lower lobe prior to radiology read.. Upon repeat evaluation patient actually is breathing better is not coughing now after initial interventions. Breath sounds are now clear and equal bilaterally to the bases. Given this patient is appropriate for discharge with a prescription for prednisone albuterol inhaler and a prescription for doxycycline with the first dose given here. He will also be referred back to pulmonology for further evaluation and ongoing management. <India Clements, DO - Last Filed: 07/29/24 17:39> Vital Signs Vital Signs: 07/29/24 15:38 07/29/24 16:00 07/29/24 16:30 Temperature 98.2 F Temperature Source Oral Pulse Rate 92 H 91 H Pulse Rate [Right Radial] 93 H Respiratory Rate 20 13 20 Blood Pressure 156/85 H 146/80 H Blood Pressure [Right Arm] 174/105 H Blood Pressure Mean [Right Arm] 128 02 Sat by Pulse Oximetry 93 L 91 L 92 L Oxygen Delivery Method Room Air Room Air Room Air 07/29/24 17:20 Temperature 97.8 F Temperature Source Oral Pulse Rate 84 Pulse Rate [Right Radial] Respiratory Rate 21 Blood Pressure 146/80 H Blood Pressure [Right Arm] Blood Pressure Mean [Right Arm] 02 Sat by Pulse Oximetry Oxygen Delivery Method Room Air Lab Data Labs: Lab Results 07/29/24 15:40: SARS-CoV-2 (PCR) Not detected, Influenza Type A (PCR) Not detected, Influenza Type B (PCR) Not detected, RSV (PCR) Not detected, Rhinovirus (PCR) Not detected 07/29/24 15:46: WBC 9.1, RBC 4.10 L, Hgb 12.6 L, Hct 37.0 L, MCV 90.2, MCH 30.7, MCHC 34.1, RDW 12.9, Plt Count 233, MPV 9.5, Neut % (Auto) 64.8, Lymph % (Auto) 18.8, Harmon % (Auto) 9.2, Eos % (Auto) 5.4, Baso % (Auto) 0.9, Neut # (Auto) 5.9, Lymph # (Auto) 1.7, Harmon # (Auto) 0.8, Eos # (Auto) 0.5 H, Baso # (Auto) 0.1, PT 10.8, INR 0.96, D-Dimer 0.93 H, Sodium 141, Potassium 3.7, Chloride 104, Carbon Dioxide 31 H, Anion Gap 9.7, BUN 12, Creatinine 0.90, Estimated Creat Clear 109, Estimated GFR 83, Est GFR ( Amer) 101, Glucose 97, Calcium 8.9, Total Bilirubin 0.3, AST 33, ALT 25, Alkaline Phosphatase 67, Troponin I < 0.01, NT-Pro-B Natriuret Pep 46.4, Total Protein 6.7, Albumin 4.0, Globulin 2.7, Albumin/Globulin Ratio 1.5, Procalcitonin 0.049, TSH 2.82, Free T4 Index 1.9 L, Thyroxine (T4) 5.4 L, T3 Uptake 35 07/29/24 15:51: VBG pH 7.37, VBG pCO2 45.6, VBG pO2 54.6 H, VBG HCO3 25.8, VBG Total CO2 27.2 H, VBG O2 Saturation 87.0 H, VBG Base Excess 0.5, VBG Lactic Acid 1.8, Urine Color Yellow, Urine Appearance Clear, Urine pH 7.5, Ur Specific [place] 1.020, Urine Protein Negative, Urine Glucose (UA) Negative, Urine Ketones Negative, Urine Blood Negative, Urine Nitrate Negative, Urine Bilirubin Negative, Urine Urobilinogen 0.2, Ur Leukocyte Esterase Negative, Urine RBC None, Urine WBC Occasional, Ur Squamous Epith Cells Occasional, Urine Bacteria Trace Response Orders (Tests/Meds): ED MEDICATIONS Discontinued Medications Generic Name Dose Route Start Last Admin Trade Name Freq PRN Reason Stop Dose Admin Albuterol/Ipratropium 3 ml 07/29/24 15:49 07/29/24 16:17 Ipratropium/Albuterol 3 Ml Neb IH 07/29/24 15:50 3 ml ONCE ONE Administration Dexamethasone Sodium Phosphate 10 mg 07/29/24 15:49 07/29/24 16:17 Dexamethasone 4mg/Ml 5ml Mdv IV 07/29/24 15:50 10 mg ONCE ONE Administration Doxycycline Hyclate 100 mg 07/29/24 17:03 07/29/24 17:12 Doxycycline Hycl 100 Mg Tablet PO 07/29/24 17:04 100 mg ONCE ONE Administration ORDERS Category Date Time Status Chest XR 2 view (NOT portable) [XR chest 2V] Stat Exams 07/29/24 15:49 Completed BNP [NT Pro Brain Natriuretic Pep.] Stat Lab 07/29/24 15:46 Completed CBC w/Auto Diff [Complete Blood Count Auto Diff] Stat Lab 07/29/24 15:46 Completed CMP [Comprehensive Metabolic Panel] Stat Lab 07/29/24 15:46 Completed D-Dimer Stat Lab 07/29/24 15:46 Completed INR [Prothrombin Time INR] Stat Lab 07/29/24 15:46 Completed Mini Respiratory Panel Stat Lab 07/29/24 15:40 Completed Procalcitonin Stat Lab 07/29/24 15:46 Completed Thyroid Panel Stat Lab 07/29/24 15:46 Completed Trop I [Troponin I] Stat Lab 07/29/24 15:46 Completed UA [Urinalysis and Microscopic] Stat Lab 07/29/24 15:51 Completed Blood Culture Stat Micro 07/29/24 15:51 Received VBG [Venous Blood Gas] Stat RT 07/29/24 15:51 Completed ECG Data Tracing #1: Attestation: I reviewed this ECG and interpreted as documented below: ECG Narrative: First-degree AV block with a ventricular rate of 88 bpm. PVCs noted. No acute STEMI. ECG initial impression date: 07/29/24 ECG initial impression time: 15:48
--- NOTE | 2024-07-29 15:46 | ECG_ITS ---
APPROVED REPORT Exam: Resting ECG HR:88 bpm ECG Measurements Heart Rate 88 AXES QRSd 125 QRS -50 QT 359 T 76 QTc 405 Conclusion UNCERTAIN IRREGULAR RHYTHM POSSIBLE RIGHT VENTRICULAR CONDUCTION DELAY [RSR (QR) IN V1/V2] LEFT ANTERIOR FASCICULAR BLOCK [QRS AXIS <= -45, QR IN I, RS IN II] NONSPECIFIC T-WAVE ABNORMALITY Electronically signed by : KIMBERLY CASAREZ, 07/29/2024 23:40:46
--- NOTE | 2024-07-29 15:49 | XR_ITS ---
PROCEDURE INFORMATION: Exam: XR Chest Exam date and time: 07/29/2024 3:52 PM Age: 73 years old Clinical indication: Cough and dyspnea TECHNIQUE: Imaging protocol: Radiologic exam of the chest. Views: 2 views. COMPARISON: CT CHEST WO/W CON 01/29/2021 11:27 AM FINDINGS: Tubes, catheters and devices: Neurostimulator overlies the thoracic canal Lungs: Opacity in the right middle lobe and right lower lobe may represent atelectasis or pneumonia. Pleural spaces: Unremarkable. No pleural effusion. No pneumothorax. Heart/Mediastinum: Unremarkable. No cardiomegaly. Bones/joints: Unremarkable. IMPRESSION: Opacity in the right middle lobe and right lower lobe may represent atelectasis or pneumonia.
[2024-07-29 16:00] VITALS: BP 156/85; PULSE 92; RESP 13; O2SAT 91
[2024-07-29 16:03] LABS: Basophils # 0.1 K/mm3 (0-0.2); Basophils % 0.9 % (0.1-2.0); Eosinophils # 0.5 K/mm3 (0.0-0.4); Eosinophils % 5.4 % (0.1-12.0); Hemoglobin 12.6 g/dL (14.1-18.0); Lymphocytes # 1.7 K/mm3 (0.7-4.5); Lymphocytes % 18.8 % (10-50); Mean Corpuscular HGB Conc 34.1 g/dL (31.8-35.4); Mean Corpuscular Hemoglobin 30.7 pg (27.0-31.2); Mean Corpuscular Volume 90.2 fl (80-94); Mean Platelet Volume 9.5 fl (7.4-10.4); Monocytes # 0.8 K/mm3 (0.1-1.0); Monocytes % 9.2 % (1.7-9.3); Neutrophils # 5.9 K/mm3 (1.8-7.8); Neutrophils % 64.8 % (37.0-80.0); Platelet Count 233 K/mm3 (142-424); Red Cell Distribution Width 12.9 % (11.5-17.5); White Blood Count 9.1 K/mm3 (4.8-10.8)
[2024-07-29 16:09] LABS: Alanine Aminotransferase 25 U/L (12-78); Albumin/Globulin Ratio 1.5 (1.1-1.8); Anion Gap 9.7 mEq/L (5-15); Aspartate Amino Transferase 33 U/L (17-59); Bilirubin,Total 0.3 mg/dl (0.2-1.3); Blood Urea Nitrogen 12 mg/dl (9-20); Calcium 8.9 mg/dl (8.4-10.2); Carbon Dioxide 31 mmol/L (22.0-30.0); Chloride 104 mmol/L (98-107); Creatinine Clearance Estimated 109 mL/min (50-200); Estimated Glomerular Filt Rate 83 ml/min (>60); GFR (African American) 101 ML/MIN (>60); Globulin 2.7 g/dL (1.3-3.2); Glucose 97 mg/dl (74-100); Potassium 3.7 mmoL/L (3.5-5.1); Sodium 141 mmol/L (136-145); Total Protein,Serum 6.7 g/dl (6.3-8.2)
[2024-07-29 16:10] LABS: Alkaline Phosphatase 67 U/L (38-126); INR 0.96 (0.9-1.1); Prothrombin Time 10.8 seconds (10.1-12.5)
[2024-07-29 16:15] LABS: Lactate Venous 1.8 mmol/L (0.4-2.0); VBG Base Excess 0.5 mmol/L (-2.4-2.3); VBG HCO3 25.8 mmol/L (23-30); VBG PCO2 45.6 mmol/L (35-51); VBG PH 7.37 mmol/L (7.31-7.41); VBG PO2 54.6 mmol/L (28-40); VBG Total CO2 27.2 mmol/L (23-27)
[2024-07-29 16:16] LABS: D-Dimer 0.93 ug/mL (0.0-0.5)
[2024-07-29] MEDS: IPRATROPIUM/ALBUTEROL 3 ML NEB IH (16:17)
[2024-07-29] MEDS: DEXAMETHASONE 4MG/ML 5ML MDV 10 MG IV (16:17)
[2024-07-29 16:19] LABS: Coronavirus 19, PCR Not Detected (NotDetected); Human Rhinovirus Not Detected (NotDetected); Influenza A, PCR Not Detected (NotDetected); Influenza B, PCR Not Detected (NotDetected); Respiratory Syncytial Virus Not Detected (NotDetected)
[2024-07-29 16:21] LABS: NT Pro Brain Natriuretic Pep. 46.4 pg/mL (0-125); Troponin I < 0.01 ng/ml (0.00-0.034)
[2024-07-29 16:26] LABS: Procalcitonin 0.049 ng/mL (0.0-2.0)
[2024-07-29 16:30] VITALS: BP 146/80; PULSE 91; RESP 20; O2SAT 92
[2024-07-29 16:40] LABS: Free Thyroxine Index 1.9 ug/dL (5.93-13.13); T4 (Thyroxine) 5.4 ug/dl (5.53-11.0); Triiodothryronine (T3) Uptake 35 % (23.5-40.5)
[2024-07-29 16:54] LABS: Thyroid Stimulating Hormone 2.82 uIU/mL (0.465-4.68)
[2024-07-29 16:55] LABS: Microscopic, Urine URINE MICROSCOPIC (MICROSCOPIC)
[2024-07-29 16:56] LABS: Appearance,Urine CLEAR (Clear); Bilirubin,Urine Negative (Negative); Blood, Urine Negative (Negative); Color,Urine YELLOW (Yellow); Glucose,Urine (UA) Negative (Negative); Ketones,Urine Negative (Negative); Leukocyte Esterase,Urine Negative (Negative); Nitrate,Urine Negative (Negative); PH,Urine 7.5 (5.0-8.5); Protein,Urine Negative (Negative); Urobilinogen,Urine 0.2 EU/dl (0.2)
[2024-07-29] MEDS: DOXYCYCLINE HYCL 100 MG TABLET PO (17:12)
[2024-07-29 17:20] VITALS: BP 146/80; PULSE 84; RESP 21; TEMP 36.6; O2SAT 89
[2024-07-29 17:40] LABS: Squamous Epithelial Cell,Urine Occasional #/hpf (0-5); WBC,Urine Occasional #/hpf (0-3)
[2024-07-29 17:41] LABS: Bacteria,Urine Trace /lpf
== END 2024-07-29 17:21 | disposition home or self-care (01) ==
PROVIDERS: Physician Assistant; Emergency Provider Emergency Medicine; PCP Nurse Practitioner
DX: J47.0 Bronchiectasis with acute lower respiratory infection (principal); R06.02 Shortness of breath; R06.00 Dyspnea, unspecified; R05.9 Cough, unspecified; R09.81 Nasal congestion
CPT/HCPCS: 71046; 80053; 81001; 82803; 83880; 84145; 84436; 84443; 84479; 84484; 85025; 85378; 85610; 87040; 87631; 93005; 96374; 99284; J1100; J7620

== ENCOUNTER 2025-07-06 10:14 | Outpatient (CLI) | payer MEDICARE, OTHER, SELFPAY ==
--- OUTSIDE RECORDS SUMMARY | 2022-12-01 11:56 | XMS_ITS | Encounter Summary ---
[facility] [address] [place] [address] Care Team Providers Care Broadcast Supervisor Name Role Phone Maya Torres Primary Care Provider + [phone] Encounter Details Date Type Department Care Team (Late st Contact Info) Description 12/01/2022 12:56 PM EDT Hospital Encounter [facility] PULMONARY & CRITICAL CARE MEDICINE [facility] [place] [address] Social History Tobacco Use Types [...] Narrative 12/01/2022 1:31 PM EDT Stephane Annton [id number] 12/01/2022 Chest X-Ray PA & Lateral Indication: [...] but occasionally words are mistranscribed. us Roman Caballeor DO IMG DIAGNOSTIC IMAG ING ORDERABLES Final Result documented in this encounter Visit Diagnoses Not on filedocumented in this encounter Care Teams Broadcast Supervisor Relationship Specialty Start Date End Date Maya Torres [address] [place] [address] PCP - General Nurse Practitioner 09/28/22 documented as of this encounter
--- OUTSIDE RECORDS SUMMARY | 2024-04-27 06:30 | XMS_ITS ---
Author Organization [facility] Address [address] [place] [address] Care Team Providers Care Channel Development Director Name Role Phone Jerome Morrissey II Unavailable Michael COLEMAN -Pramod Velazquez MD, Issa Unavailable [phone] Allergies No Known Allergies REASON FOR VISIT [...] Diagnosis [facility] [address] [place] [address] 04/27/2024 Jerome Morrissey Other correction (current) drug therapy Z79.899 ; Spondylosis without myelopathy or radiculopathy, cervical region M47.812 ; Postlaminectomy syndrome, not elsewhere classified M96.1 and Spondylosis without myelopathy or radiculopathy, lumbar region M47.816 Assessments Encounter Date Diagnosis (ICD Code) Assessment Notes Treatment Notes Treatment Clinical Notes Section Notes 04/27/2024 Other terminal clerk (current) drug therapy (ICD-10 - Z79.899) 04/02/2024 1. Discontinue [place] 5/325mg QD PRN 2. FU 1 month with [facility] 3. [facility] to change SCS settings 4. S/P [...] no relief with TFESI LT in January. [facility] rep in the room changing SCS settings. [...] no relief with TFESI LT in January. Stunable rep in the room changing SCS settings. [...] no relief with TFESI LT in January. Stunable rep in the room changing SCS settings. [...] no relief with TFESI LT in January. Stunable rep in the room changing SCS settings. [...] correction (current) drug therapy 04/02/2024 1. Discontinue [place] 5/325mg QD PRN 2. FU 1 month with Yuni 3. [facility]able rep to change SCS settings 4. S/P [...] Stephane YANEZ ADOB: 3 (74 yo M)Acc No.[id number]:04/27/2024 FollowUP Patient: Stephane RODRIGUEZ Provider: Reji Morrissey II, M.D. :1950 A ge:73 Y S ex:Male Date:04/27/2024 Address:[address] [place], [place] [id number] Subjective: * Chief Complaints: * 1 . [...] relief for 1 hour 0 08/09/2022SCS Trial [place] 80% relief for 1 week 0 02/13/2024#1 [...] * Vitals: * Examination: G eneral Examination: Nurse/Bricklayer'S Assistant: Phill McnamaraMA-Shamar)Madeleine 04/02/2024 9:48:48 AM > . [...] Assessment: * Assessment: 1. O ther terminal clerk (current) drug therapy - Z79.899 (Primary) 2 [...] no relief with TFESI LT in January. [facility]able rep in the room changing SCS settings. [...] signature of Raymon Morrissey II, M.D. on 07/06/2025 at 09:20 AM SILK TRIMMER Sign off status: Pending * Provider: Reji Morrissey II, M.D. Date: 1 Generated for Irwin spears/Davon/Bentleyitting on: 1 09/06/2024 09:20 AM SILK TRIMMER History and Physical Notes * HPI (History [...] to advanced foraminal encroachment PHYSICAL/AQUA THERAPY/DME/OTHER HISTORY: 6744-8314 Chiropractic therapy program complete 06/2023-Present: Patient continues a prescribed home exercise program 3-5 times per week which includes walking, lumbar stretches, and alternating leg lifts PERTINENT SURGICAL EVALUATIONS/SPECIALIST CONSULTS 04/2022 - Dr. Rodriguez - No surgery recommened, recommends SCS trial PREVIOUS INJECTION\PROCEDURE HISTORY: 08/21/2019 #1 SIJI RT 20% relief for 1 hour 08/09/2022 SCS Trial [place] 80% relief for 1 week 02/13/2024 #1 [...] wi th an antalgic gait, pitched forward Nurse/Bricklayer'S Assistant: Mendez SHARMA-Shamar)Francisco J 04/02/2024 9:48:48 AM > [...]
--- OUTSIDE RECORDS SUMMARY | 2024-05-28 10:30 | XMS_ITS ---
Author Organization [facility] Address [address] [place] [address] Care Team Providers Care Men'S Golf Coach Name Role Phone Jerome Morrissey II Unavailable [phone] Michael COLEMAN -Pramod Velazquez MD, Issa Unavailable [phone] Allergies No Known Allergies REASON FOR VISIT [...] Diagnosis [facility] [address] [address] 05/28/2024 Jerome Morrissey Other watermaster (current) drug therapy Z79.899 ; Spondylosis without myelopathy or radiculopathy, cervical region M47.812 ; Postlaminectomy syndrome, not elsewhere classified M96.1 and Spondylosis without myelopathy or radiculopathy, lumbar region M47.816 Assessments Encounter Date Diagnosis (ICD Code) Assessment Notes Treatment Notes Treatment Clinical Notes Section Notes 05/28/2024 Other chcf (current) drug therapy (ICD-10 - Z79.899) 04/02/2024 1. Discontinue [place] 5/325mg QD PRN 2. FU 1 month with [facility] 3. [employer] rep to change SCS settings 4. S/P [...] no relief with TFESI LT in January. [employer] rep in the room changing SCS settings. [...] no relief with TFESI LT in January. [employer] rep in the room changing SCS settings. [...] no relief with TFESI LT in January. [employer] in the room changing SCS settings. Patient [...] no relief with TFESI LT in January. [employer] rep in the room changing SCS settings. [...] Of Treatment Treatment Notes Assessment Notes Other watermaster (current) drug therapy 04/02/2024 1. Discontinue [place] 5/325mg QD PRN 2. FU 1 month with [facility] 3. [employer] rep to change SCS settings 4. S/P [...] Stephane MENDIETA ADOB: 3 (74 yo M)Acc No.[id number]:05/28/2024 Progress NOte Patient: Stephane RODRIGUEZ Provider: Reji Morrissey II, M.D. :1950 A ge:73 Y S ex:Male Date:05/28/2024 Address:[address] [place] [phone] Subjective: * Chief Complaints: * 1 . [...] for 1 hour 0 08/09/2022 SCS Trial Hymvjj82% relief for 1 week 0 02/08/2024- #1 [...] * Vitals: * Examination: G eneral Examination: Nurse/Freezer Person: Madeleine Gonzalez (MA-Lex) 04/02/2024 9:48:48 AM > [...] scars. Assessment: * Assessment: 1. O ther chcf (current) drug therapy - Z79.899 (Primary) 2 [...] no relief with TFESI LT in January. [employer] rep in the room changing SCS settings. [...] Raymon Morrissey II, M.D. on 07/06/2025 at 09:21 AM HANDBAG OPERATOR Sign off status: Pending * Provider: Reji Morrissey II, M.D. Date: 07/28/2023 Generated for Irwin spears/Davon/Nicholasransmitting on: 09/06/2024 09:21 AM HANDBAG OPERATOR History and Physical Notes * HPI [...] to advanced foraminal encroachment PHYSICAL/AQUA THERAPY/DME/OTHER HISTORY: 1812-3318 Chiropractic therapy program complete 06/2023-Present: Patient continues a prescribed home exercise program 3-5 times per week which includes walking, lumbar stretches, and alternating leg lifts PERTINENT SURGICAL EVALUATIONS/SPECIALIST CONSULTS 04/2022 - Dr. Rodriguez - No surgery recommened, recommends SCS trial PREVIOUS INJECTION\PROCEDURE HISTORY: 08/21/2019 #1 SIJAYLYN RT 20% relief for 1 hour 08/09/2022 SCS Trial [place] 80% relief for 1 week 02/08/2024 - [...] wi th an antalgic gait, pitched forward Nurse/Freezer Person: Mendez (ALEJANDRINA-Shamar)Francisco J 04/02/2024 9:48:48 AM > [...]
--- OUTSIDE RECORDS SUMMARY | 2025-07-06 10:19 | XMS_ITS | Encounter Summary ---
Author Organization [employer] ([place], [place], [place], [place], [place]) Address [address] [place] [address] Care Team Providers Care Wound/Ostomy Clinical Nurse Specialist Name Role Phone Maya Torres Reji BELCHER Primary Care Provider [phone]- [phone] Encounter Details Date Type Department Care Team (Late st Contact Info) Description 10/27/2020 Transcribed Document [facility] Family Medicine [address] [place] [address] ProviderJean MD [address] [place] [address] Social History Tobacco Use Types Packs/Day Years Used Date Smoking Tobacco: Never Assessed Sex and Gender Information Value Date Recorded Sex Assigned at Not on file Legal Sex Male 5:19 PM CDT Gender Identity Not on file Sexual Orientation Not on file documented as of this encounter Miscellaneous Notes * [employer] Conversion Note - Jean ProviderMD - 10/27/2020 11:59 AM CDT [place] Violence Assessment Entered On: 10/27/2020 12:32 EDT Performed On: 10/27/2020 12:21 EDT by Jasmin Thornton RN Broset Violence Assessment Broset Violence Checklist of Symptoms : None Broset Violence Symptoms Subtotal : 0 Broset Violence Symptoms Indicator : Low risk (0) Jasmin Thornton RN - 10/27/2020 12:21 EDT Electronically signed by Becky Tejeda Conversion Wet And Dry Sugar Bin Operator [employer] at 11/04/2022 3:33 PM CDT documented in this encounter Plan of Treatment Not on file documented as of this encounter Visit Diagnoses Not on filedocumented in this encounter Care Teams Wound/Ostomy Clinical Nurse Specialist Relationship Specialty Start Date End Date Maya Torres, SECOND HAND [address] [phone] PCP - General Family Medicine 08/27/22 documented as of this encounter
--- OUTSIDE RECORDS SUMMARY | 2025-07-06 10:19 | XMS_ITS | Encounter Summary ---
Author Organization [employer] ([place], [place], [place], [place], [place]) Address [address] [place] [address] Care Team Providers Care Flatwork Finisher Name Role Phone Maya Torres Reji BELCHER Primary Care Provider +1- [phone] Encounter Details Date Type Department Care Team (Late st Contact Info) Description 10/27/2020 Transcribed Document [facility] Family Medicine [address] [place] [address] ProviderJean MD [address] [id number] Social History Tobacco Use Types Packs/Day Years Used Date Smoking Tobacco: Never Assessed Sex and Gender Information Value Date Recorded Sex Assigned at Not on file Legal Sex Male 5:19 PM CDT Gender Identity Not on file Sexual Orientation Not on file documented as of this encounter Miscellaneous Notes * Cerner Conversion Note - Jean ProviderMD - 10/27/2020 11:59 AM CDT [place] Suicide Severity Rating Scale (C-SSRS) Entered On: 10/27/2020 12:32 EDT Performed On: 10/27/2020 12:21 EDT by Jasmin Thornton RN [place] Suicide Severity Rating Scale (C-SSRS) CSSRS Past Month Wish to be : No CSSRS Past Month Suicidal Thoughts : No CSSRS Lifetime Suicide Behavior : No Suicide Severity Rating Score : 0 Suicide Severity Rating : No Additional Care Required at this time Jasmin Thornton RN - 10/27/2020 12:21 EDT Electronically signed by Becky Tejeda Conversion President And Chief Operating Officer [employer] at 11/04/2022 3:15 PM CDT documented in this encounter Plan of Treatment Not on file documented as of this encounter Visit Diagnoses Not on filedocumented in this encounter Care Teams Flatwork Finisher Relationship Specialty Start Date End Date Maya Torres, CIVIL DRAFTSMAN [address] [phone] PCP - General Family Medicine 08/27/22 documented as of this encounter
--- OUTSIDE RECORDS SUMMARY | 2025-07-06 10:19 | XMS_ITS | Encounter Summary ---
Author Organization [employer] ([place], [place], [place], [place], [place]) Address [address] [place] [address] Care Team Providers Care Key Filer Name Role Phone Maya Torres Reji BELCHER Primary Care Provider [phone]- [phone] Encounter Details Date Type Department Care Team (Late st Contact Info) Description 10/27/2020 Transcribed Document [facility] [place] Family Medicine [address] [place] [address] ProviderJean MD [address] [place] [address] Social History Tobacco Use Types Packs/Day Years Used Date Smoking Tobacco: Never Assessed Sex and Gender Information Value Date Recorded Sex Assigned at Not on file Legal Sex Male 5:19 PM CDT Gender Identity Not on file Sexual Orientation Not on file documented as of this encounter Miscellaneous Notes * Cerner Conversion Note - Jean Sawant MD - 10/27/2020 12:36 PM CDT Vital Signs ED Entered On: 10/27/2020 12:36 EDT Performed On: 10/27/2020 12:36 EDT by Jasmin Thornton RN Vital Signs ED Temperature Mode : Fahrenheit Blood Pressure Location : Arm, left upper Systolic Blood Pressure : 123 mmHg Diastolic Blood Pressure : 75 mmHg Jasmin Thornton RN - 10/27/2020 12:36 EDT documented in this encounter Plan of Treatment Not on file documented as of this encounter Visit Diagnoses Not on filedocumented in this encounter Care Teams Key Filer Relationship Specialty Start Date End Date Maya Torres, STEAM BOX TENDER [address] [phone] PCP - General Family Medicine 08/27/22 documented as of this encounter
--- OUTSIDE RECORDS SUMMARY | 2025-07-06 10:19 | XMS_ITS | Clinical Summary ---
Author Organization Healthcare Address [address] [place] [address] Care Team Providers Care Bottom Filler Name Role Phone Unavailable Primary Care Provider Unavailabl e Family History Medical History Relation Name Comments Lung cancer Father Diabetes Mother Relation Name Status Comments Father Mother Social History Tobacco Use Types Packs/Day Years Used Date Smoking Tobacco: Former Alcohol Use Standard Drinks/Week Comments No 0 (1 standard drink = 0.6 oz pur e alcohol) Sex and Gender Information Value Date Recorded Sex Assigned at Not on file Legal Sex Male 7:32 PM EDT Gender Identity Not on file Sexual Orientation Not on file Last Filed Vital Signs Vital Sign Reading Time Taken Comments Blood Pressure - - Pulse - - Temperature - - Respiratory Rate - - Oxygen Saturation - - Inhaled Oxygen Concentration - - Weight 88 kg (194 lb 0.1 oz) 05/14/2015 2:50 PM EDT Height 175.3 cm (5' 9 ) 05/14/2015 2:50 PM EDT Body Mass Index 28.65 05/14/2015 2:50 PM EDT Plan of Treatment Not on file
--- OUTSIDE RECORDS SUMMARY | 2025-07-06 10:19 | XMS_ITS | Encounter Summary ---
Author Organization [employer] ([place], [place], [place], [place], [place]) Address [address] [place] [address] Care Team Providers Care Under Trimmer Name Role Phone Maya Torres Reji BELCHER Primary Care Provider [phone] Encounter Details Date Type Department Care Team (Late st Contact Info) Description 10/27/2020 Transcribed Document [facility] [place] Family Medicine [address] [place] [address] ProviderJean MD [address] [place] [address] Social History Tobacco Use Types Packs/Day Years Used Date Smoking Tobacco: Never Assessed Sex and Gender Information Value Date Recorded Sex Assigned at Not on file Legal Sex Male 5:19 PM CDT Gender Identity Not on file Sexual Orientation Not on file documented as of this encounter Miscellaneous Notes * Cerner Conversion Note - Jean Sawant MD - 10/27/2020 6:36 PM CDT [facility] [place], [place] [id number] ISATU MENDIETA :1950 Visit Time:10/27/2020 Your Visit Summary Your Care Team Primary Provider: ROSAURA THEODORE Secondary Provider: Your Diagnosis General medical Intercostal muscle tear Medical screening exam Traumatic hematoma of abdominal wall Medical Information You may obtain a copy of your Emergency Department visit from Medical Records by calling the hospital phone number listed above and asking to be directed to the Medical Records Department. If you had special tests, such as EKG???s or X-rays, the interpretation of your tests given to you by the Emergency Department Physician is a preliminary report. Some fractures and illnesses fail to show up on preliminary tests. These will be reviewed again and we will call you if there are any new suggestions. If your symptoms continue notify your physician. After you leave, you should follow the instructions provided. What to do next Follow-Up Appointments Follow Up with MAYA TORRES When Within 2 to 3 days Where: [place] [place] [address] [facility] (1) Allergies No Known Medication Allergies Immunizations This Visit No Immunizations Found Medications What How Much When Instructions Next Dose codeine-guaifenesin (codeine-guaifenesin 6.3 mg-100 mg/ 5 mL oral liquid) 7.5 Milliliter(s) Oral Every 6 Hours as needed for for cough dextromethorphan-guaifenesin (dextromethorphan-guaifenesin 5 mg-100 mg/ 5 mL oral liquid) 5 Milliliter(s) Oral Every 6 Hours as needed for Cough DULoxetine (Cymbalta 60 mg oral delayed release capsule) 1 Capsule(s) Oral Every Day (do not crush or chew) finasteride (finasteride 5 mg oral tablet) 1 Tablet(s) Oral Every Evening lansoprazole (Prevacid OTC 15 mg oral delayed release capsule) 1 Capsule(s) Oral Every Day loratadine-pseudoephedrine (Claritin-D 24 Hour) 1 Tablet(s) Oral Every Day LORazepam (LORazepam 1 mg oral tablet) 1 Tablet(s) Oral Two Times A Day losartan (losartan 100 mg oral tablet) 1 Tablet(s) Oral Every Evening montelukast (montelukast 10 mg oral tablet) 1 Tablet(s) Oral Every Evening predniSONE (predniSONE 5 mg oral tablet) See instructions Taper, patient still taking for upper respiratory infection sulfaSALAzine (sulfaSALAzine 500 mg oral delayed release tablet) 1 Tablet(s) Oral Two Times A Day tamsulosin (tamsulosin 0.4 mg oral capsule) 1 Capsule(s) Oral Two Times A Day traZODone (traZODone 150 mg oral tablet) 1 Tablet(s) Oral At Bedtime triamcinolone nasal (Nasacort Allergy 24HR 55 mcg/ inh nasal spray) 1 Rankin(s) Nasal Two Times A Day The home medications listed are only as accurate as the information you provided. Please continue taking all of your medications prescribed by your Primary Care Provider unless specifically told to change or discontinue the medication. Please direct any questions regarding your home medications to your Primary Care Provider. Take your medications faithfully. Do NOT skip medication. Do NOT stop taking medications without the direction of a physician. Carry a list of your medications with you at all times, and take this medication list with you to your first follow up visit. Report any side effects. Avoid herbal remedies unless discussed with your physician. As part of your treatment plan, your physician may have prescribed a limited course of a controlled substance. This medication may be given to help people with moderate or severe pain or for other medical conditions, but there are risks involved with treatment. Common side effects may include nausea, constipation, drowsiness, sweating, itching, dry mouth, and rash. More serious side effects may include cognitive and motor impairment, like problems with thinking, concentrating, alertness, and movement (e.g. slowed reflexes), and driving and operating heavy machinery can be dangerous. It is important for you to talk to your physician if you have these side effects or questions. These controlled substances can produce physical dependence and be habit-forming if taken for an extended period of time, which means that the body has gotten used to them and may experience withdrawal symptoms if they are abruptly stopped. Withdrawal symptoms can include runny nose, sweating, goose bumps, diarrhea, abdominal cramping, rapid heartbeat, difficulty sleeping, and nervousness. Please dispose of unused and medications per pharmacy guidance. Test Results Laboratory or Other Results This Visit (last charted value for your 10/27/2020 visit) Hematology 10/27/2020 12:53 PM WBC: 13.4 K/uL -- Normal range between ( 3.6 and 9.5 ) RBC: 4.03 Million/uL -- Normal range between ( 4.20 and 5.70 ) Hct: 37.9 % -- Normal range between ( 40.1 and 51.0 ) Hgb: 12.2 g/dL -- Normal range between ( 13.5 and 17.3 ) Platelet Count: 217 K/uL -- Normal range between ( 163 and 369 ) MCH: 30.3 pg -- Normal range between ( 25.6 and 32.2 ) MCHC: 32.2 Gram/dL -- Normal range between ( 32.2 and 36.5 ) MCV: 94.0 fL -- Normal range between ( 79.0 and 94.8 ) Slide Review: Add Diff Man Myelo Percent Man: 2 % -- Normal range between ( 0 and 1 ) ALYC #: 1 K/uL Band Percent Man: 2 % -- Normal range between ( 5 and 11 ) RBC Morphology: Normal RDW: 13.2 % -- Normal range between ( 11.7 and 14.9 ) ANC #: 12 K/uL [place] Percent Man: 2 % -- Normal range between ( 4 and 5 ) Baso Percent Man: 1 % -- Normal range between ( 0 and 1 ) Neutrophil Percent Man: 84 % -- Normal range between ( 50 and 65 ) Eos Percent Man: 1 % -- Normal range between ( 0 and 3 ) Platelet Ct Estimate: Adequate MPV: 8.9 fL -- Normal range between ( 9.4 and 12.4 ) Lymph Percent Man: 8 % -- Normal range between ( 24 and 44 ) Urinalysis 10/27/2020 2:01 PM Urine Nitrite: Negative Urine Leukocyte Esterase: Negative Urine Appearance: Clear Urine Glucose Dipstick: Negative Urine Blood Dipstick: Negative Urine Urobilinogen Dipstick: 0.2 EU/dL Urine Protein Dipstick: Negative Urine Color: Yellow Urine Ketones Dipstick: Negative Urine pH Dipstick: 6.5 -- Normal range between ( 6.0 and 8.0 ) Urine Bilirubin Dipstick: Negative Urine Specific Hustler: 1.006 -- Normal range between ( 1.005 and 1.030 ) Urine Type.: U CleanCatch Urine Culture if Indicated: Not Indicated Microbiology 10/27/2020 12:53 PM SARS-CoV-2 (COVID19 PCR): Negative General Chemistry 10/27/2020 12:53 PM Creatinine Level: 1.00 mg/dL -- Normal range between ( 0.70 and 1.30 ) Sodium Level: 137 mmol/L -- Normal range between ( 136 and 146 ) Potassium Level: 3.8 mmol/L -- Normal range between ( 3.5 and 5.1 ) Chloride Level: 106 mmol/L -- Normal range between ( 102 and 112 ) Carbon Dioxide Level: 29 mmol/L -- Normal range between ( 21 and 32 ) Anion Gap: 6 -- Normal range between ( 9 and 20 ) Bilirubin Total: 0.5 mg/dL -- Normal range between ( 0.2 and 1.2 ) A/G Ratio: 1.0 -- Normal range between ( 1.1 and 2.5 ) ALT: 25 Units/Liter -- Normal range between ( 16 and 61 ) AST: 19 Units/Liter -- Normal range between ( 5 and 37 ) Globulin: 3.2 Gram/dL -- Normal range between ( 1.5 and 4.5 ) Alk Phos: 74 Units/Liter -- Normal range between ( 27 and 136 ) Bun/Creatinine: 13.0 -- Normal range between ( 8.0 and 20.0 ) Calcium Level: 8.9 mg/dL -- Normal range between ( 8.4 and 10.1 ) eGFR : >60 mL/min/1.73m2 eGFR NonAfrican: >60 mL/min/1.73m2 Glucose Level: 102 mg/dL -- Normal range between ( 74 and 106 ) Magnesium Level: 2.1 mg/dL -- Normal range between ( 1.5 and 2.4 ) Blood Urea Nitrogen: 13 mg/dL -- Normal range between ( 7 and 22 ) Lactic Acid Level: 1.6 mmol/L -- Normal range between ( 0.4 and 2.0 ) Protein Total: 6.3 Gram/dL -- Normal range between ( 6.4 and 8.2 ) Albumin Level: 3.1 Gram/dL -- Normal range between ( 3.4 and 5.0 ) Lipase Level: 157 Units/Liter -- Normal range between ( 73 and 393 ) Cardiac Specific Markers 10/27/2020 12:53 PM Troponin I Ultra: <0.015 ng/mL -- Normal range between ( 0.015 and 0.045 ) ProBNP: 22 pg/mL -- Normal range between ( 0 and 125 ) Coagulation 10/27/2020 12:53 PM INR: 0.9 -- Normal range between ( 0.9 and 1.2 ) PTT: 25.2 Second(s) -- Normal range between ( 22.0 and 33.0 ) PT: 9.9 Second(s) -- Normal range between ( 9.2 and 12.0 ) Endocrinology 10/27/2020 12:53 PM Procalcitonin: <0.25 ng/mL -- Normal range between ( 0.00 and 2.00 ) Education Materials Contusion A contusion is a deep bruise. Contusions are the result of a blunt injury to tissues and muscle fibers under the skin. The injury causes bleeding under the skin. The skin overlying the contusion may turn blue, purple, or yellow. Minor injuries will give you a painless contusion, but more severe injuries cause contusions that may stay painful and swollen for a few weeks. Follow these instructions at home: Pay attention to any changes in your symptoms. Let your health care provider know about them. Take these actions to relieve your pain. Managing pain, stiffness, and swelling ??? Use resting, icing, applying pressure (compression), and raising (elevating) the injured area. This is often called the RICE strategy. ? Rest the injured area. Return to your normal activities as told by your health care provider. Ask your health care provider what activities are safe for you. ? If directed, put ice on the injured area: ? Put ice in a plastic bag. ? Place a towel between your skin and the bag. ? Leave the ice on for 20 minutes, 2???3 times per day. ? If directed, apply light compression to the injured area using an elastic bandage. Make sure the bandage is not wrapped too tightly. Remove and reapply the bandage as directed by your health care provider. ? If possible, raise (elevate) the injured area above the level of your heart while you are sitting or lying down. General instructions ??? Take irsu-pco-tgdfyis and prescription medicines only as told by your health care provider. ??? Keep all follow-up visits as told by your health care provider. This is important. Contact a health care provider if: ??? Your symptoms do not improve after several days of treatment. ??? Your symptoms get worse. ??? You have difficulty moving the injured area. Get help right away if: ??? You have severe pain. ??? You have numbness in a hand or foot. ??? Your hand or foot turns pale or cold. Summary ??? A contusion is a deep bruise. ??? Contusions are the result of a blunt injury to tissues and muscle fibers under the skin. ??? It is treated with rest, ice, compression, and elevation. You may be given zdtx-kib-sazphkj medicines for pain. ??? Contact a health care provider if your symptoms do not improve, or get worse. ??? Get help right away if you have severe pain, have numbness, or the area turns pale or cold. This information is not intended to replace advice given to you by your health care provider. Make sure you discuss any questions you have with your health care provider. Document Revised: 02/22/2019 Document Reviewed: 02/22/2019 [employer] Patient Education ?? 2020 [employer]. Emergency Awareness and Preventative Care STROKE is an EMERGENCY Every Minute Counts Act FAST and Check for these signs: FACE Does the face look uneven? ARM Does one arm drift down? SPEECH Does their speech sound strange? TIME Call at any sign of stroke Stroke Risk Factors Atrial Fibrillation (irregular heartbeat) Diabetes Family history of stroke Heart Disease Heavy alcohol use High Blood Pressure High Cholesterol Physical inactivity and obesity Smoking Cigarette Smoking The facts are clear, cigarette smoking will shorten your life. Smoking can cause many illnesses along the way. As a healthcare provider, we recommend that you stop smoking. Assistance with quitting is available by contacting 3-506-NMQL-NOW. This is a free resource providing counseling, support, and referral. Or you may contact your personal physician. National Suicide Prevention Lifeline: The National Suicide Prevention Lifeline is a national network of local crisis centers that provides free and confidential emotional support to people in suicidal crisis or emotional distress 24 hours a day, 7 days a week. Don't Wait! Stop a Heart Attack Before it Starts What is a heart attack? A heart attack is damage or to a part of the heart from severely decreased or lack of blood flow to the heart. Over time, arteries can become narrow from the buildup of fat and cholesterol, which is called plaque. The plaque can rupture causing a blood clot to form. When the blood clot forms, the artery can become severely narrowed or completely blocked, causing a heart attack. Heart attack is the leading cause of in the [place]. 85% of muscle damage occurs within the first 2 hours. Delay in the recognition of heart attack symptoms increases the chances of . Know the early symptoms of a heart attack: Nausea Feeling of fullness in chest Jaw Pain Pain that travels down one or both arms Fatigue/being tired Anxiety Back Pain Chest pressure, squeezing, or discomfort Shortness of breath Sweating, or a cold sweat Feeling of impending doom There are unusual signs of a heart attack, too! Women, the elderly, and diabetics may present with atypical symptoms: Fainting/dizziness Weakness Confusion Risk Factors for a Heart Attack Some heart disease risk factors, such as age and family history, cannot be changed. Others, like smoking and lack of exercise, can be changed. Smoking High Cholesterol High Blood Pressure Family History Obesity Age Gender (Males are at higher risk) Lack of Exercise Diabetes Diet Stress Excessive Alcohol Intake If you or someone you know is experiencing the signs and symptoms of a heart attack, DON???T DELAY. Call immediately and seek help. If someone collapses, perform CPR! Do not attempt to drive if you are having symptoms of heart attack. Hands-Only CPR Why Hands-Only CPR? Hands-Only CPR has been shown to be as effective as conventional CPR for cardiac arrests that occur outside of a hospital. Survival depends on immediately receiving CPR from someone nearby. How do you perform Hands-Only CPR? There are two easy steps: Call if you see a teen or adult collapse Push hard and fast in the center of the chest at a beat of 100 beats per minute. Save a life! 4 WAYS TO GET AHEAD OF SEPSIS SEPSIS is a MEDICAL EMERGENCY. Time matters! Infections put you and your family at risk for a life-threatening condition called sepsis. Sepsis is the body's extreme response to an infection. It is life-threatening, and without timely treatment, sepsis can rapidly lead to tissue damage, organ failure, and . Sepsis happens when an infection you already have-in your skin, lungs, urinary tract or somewhere else-triggers a chain reaction throughout your body. 1 PREVENT INFECTIONS Take good care of chronic conditions. Talk to your doctor about getting the recommended vaccines. 2 PRACTICE GOOD HYGIENE Wash your hands frequently. Keep cuts or open sores clean and covered until they are healed. 3 KNOW THE SYMPTOMS Confusion or disorientation Shortness of breath High heart rate Fever, shivering, or feeling very cold Extreme pain or discomfort Clammy or sweaty skin 4 ACT FAST Get medical care IMMEDIATELY if you suspect sepsis or if you have an infection that is not getting better or is getting worse. To learn more about sepsis and how to prevent infections, visit www.cdc.gov/sepsis. The examination and treatment you have received in the Emergency Department has been done to provide an appropriate evaluation and stabilizing treatment on an emergency basis only. Given the limited resources, it is not meant to be a substitute for complete medical care. The follow-up doctor you named will receive a copy of your records and all test reports. IT IS IMPORTANT THAT YOU SCHEDULE A FOLLOW-UP APPOINTMENT AND ARE RE-EVALUATED. You should report any new complaints, symptoms, or remaining problems at that time. IT IS IMPOSSIBLE FOR THE EMERGENCY DEPARTMENT TO RECOGNIZE AND TREAT ALL ELEMENTS OF INJURY OR ILLNESS IN A SINGLE VISIT. If you have been referred to a specialist physician, it means that we believe you may have a condition that requires the expertise of a specialist. These physicians work in partnership with the hospital and have agreed to see referred patients in their office for further evaluation. KEEP IN MIND THAT THE SPECIALIST HAS HIS/HER OWN OFFICE POLICIES WHICH MAY REQUIRE PROPER INSURANCE OR PAYMENT UP FRONT BEFORE THE SPECIALIST WILL SEE YOU. It is your responsibility to call the specialist physician to make an appointment. We do not have the ability to refer patients to specialists/physicians that work with specific insurance companies. Please be advised that all financial charges or billing practices are determined by that practice, not the hospital. If your insurance company requires that you see a specialist from their approved list, it is your responsibility to contact your insurance company to make those arrangements. It is also your responsibility to follow any other requirements of your insurance company necessary to obtain coverage for claims submitted. We will bill your insurance; however, you are responsible today for any co-pay amounts. You will receive a separate bill for any services you may have received including: emergency, radiology, or pathology physicians. Patient Name:ISATU MENDIETA I have received this information and was given the opportunity to ask questions. Patient/Executive Associate Name: Patient/Executive Associate Signature: Relationship to Patient: Clinician/Hospital Executive Associate Signature: Please Provide a Telephone Number Where You Can Be Reached: Is it Permissible To Leave a Message? Date: documented in this encounter Plan of Treatment Not on file documented as of this encounter Visit Diagnoses Not on filedocumented in this encounter Care Teams Under Trimmer Relationship Specialty Start Date End Date Maya Torres, SIMI [address] [phone] PCP - General Family Medicine 08/27/22 documented as of this encounter
--- OUTSIDE RECORDS SUMMARY | 2025-07-06 10:19 | XMS_ITS | Encounter Summary ---
Author Organization [email or web address] ([place], [place], [place], [place], [place]) Address [address] [place] [address] Care Team Providers Care Boiler Setter Name Role Phone Maya Torres Reji BELCHER Primary Care Provider [phone]- [phone] Encounter Details Date Type Department Care Team (Late st Contact Info) Description 10/27/2020 Transcribed Document [facility] [place] Family Medicine [address] [place] [address] ProviderJean MD [address] [place] [address] Social History Tobacco Use Types Packs/Day Years Used Date Smoking Tobacco: Never Assessed Sex and Gender Information Value Date Recorded Sex Assigned at Not on file Legal Sex Male 5:19 PM CDT Gender Identity Not on file Sexual Orientation Not on file documented as of this encounter Miscellaneous Notes * Cerner Conversion Note - Jean Sawant MD - 10/27/2020 12:44 PM CDT Pain Assessment Entered On: 10/27/2020 14:11 EDT Performed On: 10/27/2020 14:11 EDT by Omar Solorzano Rn Intervention Information: [email or web address] Performed by Omar Solorzano Rn on 10/27/2020 12:55:00 EDT fentaNYL,50mcg IV Push,Left Antecubital Crapo Pain Assessment Pain Scale Used : 0-10 Scale Pain Improved by Intervention : Yes Omar Solorzano Rn - 10/27/2020 14:11 EDT Pain Scale Intensity : 4 Omar Solorzano Rn - 10/27/2020 14:11 EDT Image 4 - Images currently included in the form version of this document have not been included in the text rendition version of the form. documented in this encounter Plan of Treatment Not on file documented as of this encounter Visit Diagnoses Not on filedocumented in this encounter Care Teams Boiler Setter Relationship Specialty Start Date End Date Maya Torres, CLINICAL TRANSFORMATION SPECIALIST [address] [phone] PCP - General Family Medicine 08/27/22 documented as of this encounter
--- OUTSIDE RECORDS SUMMARY | 2025-07-06 10:19 | XMS_ITS | Encounter Summary ---
Author Organization [employer] ([place], [place], [place], [place], [place]) Address [address] [place] [address] Care Team Providers Care Laundry Attendant Name Role Phone Maya Torres SIMI Primary Care Provider +1- [phone] Encounter Details Date Type Department Care Team (Late st Contact Info) Description 10/27/2020 Transcribed Document [facility] [place] Family Medicine [facility] [place] [address] ProviderJean MD [address] [place] [id number] Social History Tobacco Use Types Packs/Day Years Used Date Smoking Tobacco: Never Assessed Sex and Gender Information Value Date Recorded Sex Assigned at Not on file Legal Sex Male 5:19 PM CDT Gender Identity Not on file Sexual Orientation Not on file documented as of this encounter Miscellaneous Notes * Cerner Conversion Note - Jean Sawant MD - 10/27/2020 12:46 PM CDT Patient: ISATU MENDIETA Age: 70 years Sex: Male : 1950 Associated Diagnoses: Traumatic hematoma of abdominal wall; Intercostal muscle tear Author: NONA GALICIA MD-EMR Basic Information Additional information: Chief Complaint from Nursing Triage Note : Chief Complaint 10/27/2020 12:04 EDT Chief Complaint pt here for abn bruising to lower abd ,states tore a muscle last week, had FU but not any better, states no blood thinners, pt c/o fullnes to abd, . History of Present Illness The patient is a 70-year-old white male. He presents with ongoing chest wall and abdominal wall pain. He was seen on 10/18/2020 for left-sided intercostal injury. 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 He also reports that he was coughing significantly during the time of the injury. He presents at this time with increasing pain on the left chest wall as well as abdominal wall. He has developed significant ecchymosis of the abdominal wall. No fever no chills. He still continues to have a dry nonproductive cough. He reports he has been tested negative for Covid within the last couple of weeks. No known Covid exposure. He is a non-smoker nondrinker. Very minimal NSAID use. He is not anticoagulated. Review of Systems Constitutional symptoms: Negative except as documented in HPI. Skin symptoms: Negative except as documented in HPI. Eye symptoms: Negative except as documented in HPI. ENMT symptoms: Negative except as documented in HPI. Respiratory symptoms: Negative except as documented in HPI. Cardiovascular symptoms: Negative except as documented in HPI. Gastrointestinal symptoms: Negative except as documented in HPI. Genitourinary symptoms: Negative except as documented in HPI. Musculoskeletal symptoms: Negative except as documented in HPI. Neurologic symptoms: Negative except as documented in HPI. Psychiatric symptoms: Negative except as documented in HPI. Endocrine symptoms: Negative except as documented in HPI. Hematologic/Lymphatic symptoms: Negative except as documented in HPI. Allergy/immunologic symptoms: Negative except as documented in HPI. Additional review of systems information: All other systems reviewed and otherwise negative, All systems reviewed as documented in chart. Health Status Allergies: Allergic Reactions (Selected) No Known Medication Allergies. Past Medical/ Family/ Social History Surgical history: right shoulder rotator cuff. hernia. skin cancer removal. cyst removed from left hand. bilateral cataracts. colonoscopy.. Family history: No family history items have been selected or recorded.. Social history: Social & Psychosocial Habits Alcohol 06/16/2018 Alcohol Use History, Social Habits Yes Alcohol Use Frequency Rarely Nutrition/Health 06/16/2018 Type of diet: Regular Substance Abuse 06/16/2018 Recreational Drug Use History No Tobacco 06/16/2018 Smoking Status Former smoker, quit more Smokeless Tobacco Status Never Month Tobacco Last Used quit 10 yr ago . Problem list: Active Problems (4) At risk for sleep apnea Enlarged prostate Hypertension Seasonal allergies . Physical Examination Vital Signs Vital Signs/Vital Measures 10/27/2020 12:36 EDT Blood Pressure Location Arm, left upper Systolic Blood Pressure 123 mmHg Diastolic Blood Pressure 75 mmHg Temperature Mode Fahrenheit 10/27/2020 12:35 EDT Blood Pressure Location Arm, right upper Systolic Blood Pressure 145 mmHg HI Diastolic Blood Pressure 73 mmHg Temperature Mode Fahrenheit 10/27/2020 12:04 EDT Systolic Blood Pressure 163 mmHg HI Diastolic Blood Pressure 80 mmHg Temperature Source Oral Temperature Mode Fahrenheit Temperature, Fahrenheit 97.9 Deg F Clinical Temperature, C 36.6 Deg C Peripheral Pulse Rate 91 bpm Respiratory Rate 18 Breaths/Min Oxygen Saturation 96 % Oxygen Therapy Mode Room air . Measurements 10/27/2020 12:04 EDT Height Source Stated Height Entry Format [place] Height/Length, BARBADIAN (ft) 5 ft Height/Length BARBADIAN 8 Inch CLINICALHEIGHT 172.72 cm Preston Body Weight 67.45 kg Weight Source, ED Critical estimated dosing weight Weight Entry Format [place] Weight Marshallese lb 250 lb CLINICALWEIGHT 113.64 kg Body Surface Area (BSA) 2.25 m2 Body Mass Index 38.1 kg/m2 HI . Oxygen Saturation 10/27/2020 12:04 EDT Oxygen Saturation 96 % . General: Alert, no acute distress. Skin: Ecchymosis noted in bilateral lower quadrants. Head: Normocephalic, atraumatic. Neck: Supple. Eye: Pupils are equal, round and reactive to light, extraocular movements are intact. Ears, nose, mouth and throat: Oral mucosa moist. Cardiovascular: Regular rate and rhythm, No murmur. Respiratory: Decreased breath sounds in the bases otherwise clear. Chest wall: Tenderness left anterior chest wall without crepitus.. Musculoskeletal: Normal ROM, normal strength. Gastrointestinal: Abdomen is obese normal bowel sounds. There is mild to moderate tenderness bilateral lower quadrants most concentrated in the left lower quadrant. No guarding no rebound. Neurological: Alert and oriented to person, place, time, and situation, No focal neurological deficit observed, normal sensory observed, normal motor observed. Psychiatric: Cooperative. Medical Decision Making Documents reviewed: Emergency department nurses' notes. Electrocardiogram: Time 10/27/2020 12:17:00, rate 83, normal sinus rhythm, Normal sinus rhythm with first-degree AV block. No acute ST-T wave changes. Results review: Lab results : Lab Results 10/27/2020 14:01 EDT Urine Type. U CleanCatch Urine Color Yellow Urine Appearance Clear Urine Specific [place] 1.006 Urine pH Dipstick 6.5 Urine Leukocyte Esterase Negative Urine Nitrite Negative Urine Protein Dipstick Negative Urine Glucose Dipstick Negative Urine Ketones Dipstick Negative Urine Urobilinogen Dipstick 0.2 EU/dL Urine Bilirubin Dipstick Negative Urine Blood Dipstick Negative Urine Culture if Indicated Not Indicated 10/27/2020 12:53 EDT Sodium Level 137 mmol/L Potassium Level 3.8 mmol/L Chloride Level 106 mmol/L Carbon Dioxide Level 29 mmol/L Anion Gap 6 LOW Glucose Level 102 mg/dL Blood Urea Nitrogen 13 mg/dL Creatinine Level 1.00 mg/dL eGFR >60 mL/min/1.73m2 eGFR NonAfrican >60 mL/min/1.73m2 Bun/Creatinine 13.0 Calcium Level 8.9 mg/dL Protein Total 6.3 Gram/dL LOW Albumin Level 3.1 Gram/dL LOW Globulin 3.2 Gram/dL A/G Ratio 1.0 LOW Bilirubin Total 0.5 mg/dL Alk Phos 74 Units/Liter AST 19 Units/Liter ALT 25 Units/Liter Magnesium Level 2.1 mg/dL Lipase Level 157 Units/Liter Lactic Acid Level 1.6 mmol/L Troponin I Ultra <0.015 ng/mL ProBNP 22 pg/mL WBC 13.4 K/uL HI RBC 4.03 Million/uL LOW Hgb 12.2 g/dL LOW Hct 37.9 % LOW MCV 94.0 fL MCH 30.3 pg MCHC 32.2 Gram/dL Platelet Count 217 K/uL MPV 8.9 fL LOW RDW 13.2 % Neutrophil Percent Man 84 % HI Band Percent Man 2 % LOW ANC # 12 K/uL NA Lymph Percent Man 8 % LOW ALYC # 1 K/uL NA Wilkes Percent Man 2 % LOW Eos Percent Man 1 % Baso Percent Man 1 % Myelo Percent Man 2 % HI RBC Morphology Normal Platelet Ct Estimate Adequate Slide Review Add Diff Man PT 9.9 Second(s) INR 0.9 PTT 25.2 Second(s) Procalcitonin <0.25 ng/mL SARS-CoV-2 (COVID19 PCR) Negative . Radiology results: Radiology Results (Last 48 hours) [id number] -- 10/27/2020 11:59 CT Abdomen Pelvis W (10/27/2020 17:14) Result: CT OF THE CHEST, ABDOMEN AND PELVISHISTORY: Abdominal trauma, blunt.PROCEDURE: Routine axial images were obtained from the lung apices tothe pubic symphysis following IV contrast administration. This study wasperformed with techniques to keep radiation doses as low as reasonablyachievable, (ALARA). Individualized dose reduction techniques usingautomated exposure control or adjustment of mA and/or kV according tothe patient size were employed.COMPARISON: None.FINDINGS: Chest: There is a small left pleural effusion. There is increaseddistance between the left seventh and eighth ribs with broad-basedherniation of lung between them. There is right basilar atelectasis. Thelungs are otherwise clear. There is no adenopathy.Abdomen: The gallbladder is unremarkable. There are small/tiny bilateralnonobstructing renal calculi, 2 on the right and one on the left side.The solid abdominal organs and ureters are otherwise unremarkable. TheGI tract is unremarkable, with no sign of appendicitis. There is deepsubcutaneous fat stranding involving the left greater than rightflank's, probably due to contusion given the history of recent trauma.Pelvis: The urinary bladder is unremarkable. There is no pelvic orabdominal ascites, adenopathy or acute osseous abnormality.IMPRESSION: Mild right basilar atelectasis and small left pleuraleffusion. Left greater than right flank contusion. Small bilateralnonobstructing renal calculi.Images reviewed, interpreted, and dictated by Dr. Isatu Porter.Transcribed by Saman Prakash. CT Chest W (10/27/2020 17:14) Result: CT OF THE CHEST, ABDOMEN AND PELVISHISTORY: Abdominal trauma, blunt.PROCEDURE: Routine axial images were obtained from the lung apices tothe pubic symphysis following IV contrast administration. This study wasperformed with techniques to keep radiation doses as low as reasonablyachievable, (ALARA). Individualized dose reduction techniques usingautomated exposure control or adjustment of mA and/or kV according tothe patient size were employed.COMPARISON: None.FINDINGS: Chest: There is a small left pleural effusion. There is increaseddistance between the left seventh and eighth ribs with broad-basedherniation of lung between them. There is right basilar atelectasis. Thelungs are otherwise clear. There is no adenopathy.Abdomen: The gallbladder is unremarkable. There are small/tiny bilateralnonobstructing renal calculi, 2 on the right and one on the left side.The solid abdominal organs and ureters are otherwise unremarkable. TheGI tract is unremarkable, with no sign of appendicitis. There is deepsubcutaneous fat stranding involving the left greater than rightflank's, probably due to contusion given the history of recent trauma.Pelvis: The urinary bladder is unremarkable. There is no pelvic orabdominal ascites, adenopathy or acute osseous abnormality.IMPRESSION: Mild right basilar atelectasis and small left pleuraleffusion. Left greater than right flank contusion. Small bilateralnonobstructing renal calculi.Images reviewed, interpreted, and dictated by Dr. Isatu Porter.Transcribed by Saman Prakash. . Reexamination/ Reevaluation Time: 10/27/2020 16:26:00 . Interventions: At this time patient is stable. Still awaiting CAT scan of chest and abdomen. Time: 10/27/2020 18:30:00 . Notes: On reevaluation, patient is feeling better. Abdominal pain is improved. The redness and sloughing is consistent with deep muscle bruising. As far as the chest CT goes, there is no significant change from previous. The patient did follow-up with cardiothoracic surgery. There is no operative involvement. The patient will maintain his previously scheduled cardiothoracic surgery follow-up. Patient was given strict return precautions. Verbalized understanding.. Impression and Plan Diagnosis Traumatic hematoma of abdominal wall - Discharge, Medical Intercostal muscle tear - Discharge, Medical Plan Condition: Improved. Disposition: Discharged Admit/Transfer/Discharge: Discharge (Order): Start: 10/27/2020 18:32 EDT, Discharge to: Home , Patient care transitioned to: Time: 10/27/2020 16:26:00, ROSAURA THEODORE MD. Patient was given the following educational materials: Contusion. Follow up with: MAYA TORRES Within 2 to 3 days. Counseled: Patient, Regarding diagnosis, Regarding diagnostic results, Regarding treatment plan, Patient indicated understanding of instructions. documented in this encounter Plan of Treatment Not on file documented as of this encounter Visit Diagnoses Not on filedocumented in this encounter Care Teams Laundry Attendant Relationship Specialty Start Date End Date Maya Torres, AUTOMATION TENDER [address] [phone] PCP - General Family Medicine 08/27/22 documented as of this encounter
--- OUTSIDE RECORDS SUMMARY | 2025-07-06 10:19 | XMS_ITS | Encounter Summary ---
Author Organization [employer] ([place], [place], [place], [place], [place]) Address [address] [place] [address] Care Team Providers Care Survey Methodologist Name Role Phone Maya Torres Reji BELCHER Primary Care Provider +1- [phone] Encounter Details Date Type Department Care Team (Late st Contact Info) Description 10/27/2020 Transcribed Document [facility] [place] Family Medicine [facility] [place] [address] ProviderJean MD [address] [place] [address] Social History Tobacco Use Types Packs/Day Years Used Date Smoking Tobacco: Never Assessed Sex and Gender Information Value Date Recorded Sex Assigned at Not on file Legal Sex Male 5:19 PM CDT Gender Identity Not on file Sexual Orientation Not on file documented as of this encounter Miscellaneous Notes * Cerner Conversion Note - Jean Sawant MD - 10/27/2020 12:35 PM CDT Vital Signs ED Entered On: 10/27/2020 12:36 EDT Performed On: 10/27/2020 12:35 EDT by Jasmin Thornton RN Vital Signs ED Temperature Mode : Fahrenheit Blood Pressure Location : Arm, right upper Systolic Blood Pressure : 145 mmHg (HI) Diastolic Blood Pressure : 73 mmHg Jasmin Thornton RN - 10/27/2020 12:35 EDT Electronically signed by Becky Tejeda Conversion Laser Beam Color Scanner Operator Cerner at 11/04/2022 3:22 PM CDT documented in this encounter Plan of Treatment Not on file documented as of this encounter Visit Diagnoses Not on filedocumented in this encounter Care Teams Survey Methodologist Relationship Specialty Start Date End Date Maya Torres, DECONTAMINATION TECHNICIAN [address] [phone] PCP - General Family Medicine 08/27/22 documented as of this encounter
--- OUTSIDE RECORDS SUMMARY | 2025-07-06 10:19 | XMS_ITS | Encounter Summary ---
Author Organization [employer] ([place], [place], [place], [place], [place]) Address [address] [place] [address] Care Team Providers Care Mathematical Physicist Name Role Phone Maya Torres Reji BELCHER Primary Care Provider +1- [phone] Encounter Details Date Type Department Care Team (Late st Contact Info) Description 10/27/2020 Transcribed Document [facility] [place] [facility] [place] [address] ProviderJean MD [address] [place] [address] Social History Tobacco Use Types Packs/Day Years Used Date Smoking Tobacco: Never Assessed Sex and Gender Information Value Date Recorded Sex Assigned at Not on file Legal Sex Male 5:19 PM CDT Gender Identity Not on file Sexual Orientation Not on file documented as of this encounter Miscellaneous Notes * Cerner Conversion Note - Jean Sawant MD - 10/27/2020 11:59 AM CDT ED Triage Entered On: 10/27/2020 12:07 EDT Performed On: 10/27/2020 12:04 EDT by Alina Easley Flex Team parts representative Triage Across the Room Chief Complaint : pt here for abn bruising to lower abd ,states tore a muscle last week, had FU but not any better, states no blood thinners, pt c/o fullnes to abd, Triage Date/Time : 10/27/2020 12:04 EDT Alina Easley Flex Team Rn - 10/27/2020 12:04 EDT DCP GENERIC CODE Tracking Acuity : 2 - Emergent Tracking Group : [facility] ED Alina Easley Flex Team Rn - 10/27/2020 12:04 EDT Mode of Arrival : Ambulatory Transported to ED by : Private vehicle To Room Via : Wheelchair Accompanied By : Spouse ED Vital Signs : Document Height & Weight : Document ED Allergies : Document ED Reason for Visit : Document Tetanus Immunization : Less than 5 years Help Desk Consultant Needed : No Alina Easley Flex Team Rn - 10/27/2020 12:04 EDT Infectious Disease History Has the patient ever been tested for COVID-19? : No, Patient stated Does patient have symptoms of COVID-19? : No COVID19 Screening : No Experiencing Infectious Disease Symptoms : No symptoms Physical contact outside [place] in the last 30 days : No Infectious Disease History : Influenza, Measles, Mumps Tuberculosis Symptoms : None Alina Easley Flex Team Rn - 10/27/2020 12:04 EDT Vital Signs ED Temperature Source : Oral Temperature Mode : Fahrenheit Temperature, Fahrenheit : 97.9 Deg F ED Pain : Yes Clinical Temperature, C : 36.6 Deg C Oxygen Therapy Mode : Room air Peripheral Pulse Rate : 91 bpm Respiratory Rate : 18 Breaths/Min Systolic Blood Pressure : 163 mmHg (HI) Diastolic Blood Pressure : 80 mmHg Oxygen Saturation : 96 % Alina Easley Flex Team Rn - 10/27/2020 12:04 EDT Allergy (As Of: 10/27/2020 12:07:02 EDT) Allergies (Active) No Known Medication Allergies Estimated Onset Date: Unspecified ; Created By: Shavonne Jimenez RN; Reaction Status: Active ; Category: Drug ; Substance: No Known Medication Allergies ; Type: Allergy ; Updated By: Shavonne Jimenez RN; Reviewed Date: 10/27/2020 12:06 EDT Diagnosis Control ED (As Of: 10/27/2020 12:07:02 EDT) Problems(Active) At risk for sleep apnea (IMO :47087847 ) Name of Problem: At risk for sleep apnea ; Recorder: SYSTEM, SYSTEM; Confirmation: Confirmed ; Classification: Medical ; Code: [id number] ; Last Updated: 06/16/2018 8:18 EST ; Life Cycle Date: 06/16/2018 ; Life Cycle Status: Active ; Vocabulary: IMO Enlarged prostate (SNOMED CT :917101358 ) Name of Problem: Enlarged prostate ; Recorder: Shavonne Jimenez RN; Confirmation: Confirmed ; Classification: Medical ; Code: [id number] ; Contributor System: PowerChart ; Last Updated: 06/16/2018 8:22 EST ; Life Cycle Date: 06/16/2018 ; Life Cycle Status: Active ; Vocabulary: SNOMED CT Hypertension (SNOMED CT :4749202524 ) Name of Problem: Hypertension ; Recorder: Shavonne Jimenez RN; Confirmation: Confirmed ; Classification: Medical ; Code: [id number] ; Contributor System: PowerChart ; Last Updated: 06/16/2018 8:21 EST ; Life Cycle Date: 06/16/2018 ; Life Cycle Status: Active ; Vocabulary: SNOMED CT Seasonal allergies (SNOMED CT :7564209617 ) Name of Problem: Seasonal allergies ; Recorder: Shavonne Jimenez RN; Confirmation: Confirmed ; Classification: Medical ; Code: [id number] ; Contributor System: MEDEMChart ; Last Updated: 06/16/2018 8:22 EST ; Life Cycle Date: 06/16/2018 ; Life Cycle Status: Active ; Vocabulary: SNOMED CT Diagnoses(Active) Medical screening exam Date: 10/27/2020 ; Diagnosis Type: Reason For Visit ; Confirmation: Complaint of ; Clinical Dx: Medical screening exam ; Classification: Medical ; Clinical Service: Non-Specified ; Code: PNED ; Probability: 0 ; Diagnosis Code: [id number] ED Height and Weight Height Source : Stated Height Entry Format : [place] Height, Feet : 5 ft(Converted to: 152 cm, 60 Inch) Height, Inches : 8 Inch(Converted to: 0 ft 8 Inch, 20.32 cm) Clinical Height : 172.72 cm Weight Source, ED : Critical estimated dosing weight Weight Entry Format : [place] Weight, Pounds : 250 lb Clinical Dosing Weight : 113.64 kg Body Surface Area (BSA) : 2.25 m2 Body Mass Index : 38.1 kg/m2 (HI) Higgins Body Weight (IBW) : 67.45 kg Alina Easley Flex Team Bean - 10/27/2020 12:04 EDT Pain Assessment Pain Assessment : Initial assessment Pain Scale Used : 0-10 Scale Location : Abdominal Alina Easley Flex Team Rn - 10/27/2020 12:04 EDT Pain Scale Intensity : 7 Alina Easley Flex Team Rn - 10/27/2020 12:04 EDT Image 4 - Images currently included in the form version of this document have not been included in the text rendition version of the form. documented in this encounter Plan of Treatment Not on file documented as of this encounter Visit Diagnoses Not on filedocumented in this encounter Care Teams Mathematical Physicist Relationship Specialty Start Date End Date Maya Torres, CUSTOMER PRICING MANAGER [address] [phone] PCP - General Family Medicine 08/27/22 documented as of this encounter
--- OUTSIDE RECORDS SUMMARY | 2025-07-06 10:19 | XMS_ITS | Encounter Summary ---
Author Organization [employer] ([place], [place], [place], [place], [place]) Address [address] [place] [address] Care Team Providers Care Primary Care Pediatrician Name Role Phone Maya Torres Reji BELCHER Primary Care Provider +1- [phone] Encounter Details Date Type Department Care Team (Late st Contact Info) Description 10/27/2020 Transcribed Document [facility] [place] [facility] [place] [address] ProviderJean MD [address] [place], [place] [id number] Social History Tobacco Use Types Packs/Day Years Used Date Smoking Tobacco: Never Assessed Sex and Gender Information Value Date Recorded Sex Assigned at Not on file Legal Sex Male 5:19 PM CDT Gender Identity Not on file Sexual Orientation Not on file documented as of this encounter Miscellaneous Notes * Cerner Conversion Note - Jean Sawant MD - 10/27/2020 6:35 PM CDT ED Discharge Entered On: 10/27/2020 18:36 EDT Performed On: 10/27/2020 18:35 EDT by Omar Solorzano Rn Discharge Process Patient Disposition : Discharge Personal Belongings With Patient : Yes Patient Education Completed : Yes Teaching Evaluation : Verbalizes understanding IV Discontinued : Yes Nursing Documentation Completed : Yes Omar Solorzano Rn - 10/27/2020 18:35 EDT ED Discharge Discharge To : Home with ambulatory/outpatient follow-up Mode Of Departure : Private vehicle Discharge Instructions Reviewed With, Opportunity For Questions Given : Patient Omar Solorzano Rn - 10/27/2020 18:35 EDT documented in this encounter Plan of Treatment Not on file documented as of this encounter Visit Diagnoses Not on filedocumented in this encounter Care Teams Primary Care Pediatrician Relationship Specialty Start Date End Date Maya Torres, INDUSTRIAL GREEN SYSTEMS DESIGNER [address] [phone] PCP - General Family Medicine 08/27/22 documented as of this encounter
--- OUTSIDE RECORDS SUMMARY | 2025-07-06 10:19 | XMS_ITS | Encounter Summary ---
Author Organization [employer] ([place], [place], [place], [place], [place]) Address [address] [place] [address] Care Team Providers Care Polytechnic Teacher Name Role Phone Maya Torres APRN Primary Care Provider +1- [phone] Encounter Details Date Type Department Care Team (Late st Contact Info) Description 10/27/2020 Transcribed Document [facility] [place] Family [place] [address] [place] [address] ProviderJean MD [address] [place] [address] Social History Tobacco Use Types Packs/Day Years Used Date Smoking Tobacco: Never Assessed Sex and Gender Information Value Date Recorded Sex Assigned at Not on file Legal Sex Male 5:19 PM CDT Gender Identity Not on file Sexual Orientation Not on file documented as of this encounter Miscellaneous Notes * Cerner Conversion Note - Historical ProviderMD - 10/27/2020 6:32 PM CDT Electronically signed by [facility] Conversion Construction Mgr Cerner at 11/04/2022 3:28 PM CDT documented in this encounter Plan of Treatment Not on file documented as of this encounter Visit Diagnoses Not on filedocumented in this encounter Care Teams Polytechnic Teacher Relationship Specialty Start Date End Date Maya Torres APRN [address] [facility] [address] [place] [phone] PCP - General Family Medicine 08/27/22 documented as of this encounter
--- OUTSIDE RECORDS SUMMARY | 2025-07-06 10:20 | XMS_ITS | Clinical Summary ---
Author Organization [facility] , [facility] Address [address] [place] [address] Phone Care Team Providers Care Wine Steward/Stewardess Name Role Phone Jose Cruz COLEMAN, Domingo Jett Unavailable [phone] Olga Licea APRN Unavailable [phone] Reason for Visit and Chief Complaint [Patient Encounter] Problems Includes: Problems addressed during this encounter and other active Problems All Visits Onset Date Date of Diagnosis Resolved Date Provider Condition Status Soft Tissue Pain Hand 12/05/2024 12/05/2024 Flako Pulido PA-C Active Last Documented On 5 1:43AM ; [facility], [facility] History of Lower Back Pain M idline Right Side 04/12/2022 04/12/2022 Holden Modi PA-C Active Last Documented On 5 1:41AM ; [facility], [facility] Joint Pain Left Thumb 03/12/2021 03/12/2021 Charles Hernandez MD Active Last Documented On 5 1:40AM ; [facility], [facility] Joint Pain in Both Knees 04/05/2019 04/05/2019 Arlet Billingsley MD Active Last Documented On 5 1:39AM ; [facility], [facility] Plan of Treatment Future Appointments Date Time Location Provi t[place]ira Post Op 07/19/2025 11:00AM [facility] Holden Modi PA-C Last Documented On 5 10:29AM ; [facility], [facility] Assessments Includes: Assessments from this encounter No Assessments Recorded Medical Equipment - Implanted Devices Includes: Current Devices No Medical Equipment Recorded Medications Includes: Medications discussed during this encounter and other current Medications New / Renewed during this visit Issa Rodriguez MD on 07/03/2025 Percocet 5-325 MG Oral Tablet Provider: Issa Rodriguez MD 15 day supply: 40 tablet, 0 refills Diagnosis: 1 po q 4h prn pain Pharmacy: [facility][id number] - [address] , [facility], [id number] - Last Documented On 8:39AM By Issa Rodriguez ; [facility], [facility] Current Medications (continue as prescribed) Clindamycin HCl 300 MG Oral Capsule 01/07/2025 Provi tahira: Holden Modi PA-C Diagnosis: Last Documented On 10:36AM By Quentin Burk ; [facility], [facility] oxyCODONE-Acetaminophen 5-325 MG Oral Tablet Provider: Issa Rodriguez MD Diagnosis: Last Documented On 9:50AM By Quentin Burk ; [facility], [facility] Pantoprazole Sodium 40 MG Or al Tablet Delayed Release 12/09/2024 Provider: Maya Torres [employer]ER [employer]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 Diagnosis: Last Documented On 9:50AM By Quentin Burk ; [facility], [facility] LORazepam 1 MG Oral Tablet 12/04/2024 Provider: Nancy Torres [employer]ER Diagnosis: Last Documented On 9:50AM By Quentin Burk ; [facility], [facility] Doxycycline Hyclate 100 MG Oral Capsule 12/04/2024 P rosoniader: Diagnosis: Last Documented On 9:50AM By Quentin Burk ; [facility], [facility] sulfaSALAzine 500 MG Oral Tablet 11/27/2024 Provider : Maya Torres [employer] DES[employer]ER Diagnosis: Last Documented On 9:50AM By Quentin Burk ; [facility], [facility] Albuterol Sulfate HFA 108 (9 0 Base) MCG/ACT Inhalation Aerosol Solution 11/07/2024 Provider: Maya anderson [employer]ER Diagnosis: Last Documented On 06/13/202 5 9:50AM By Quentin Burk ; [facility] Finasteride 5 MG Oral Tablet 11/03/2024 Provider: Maya Torres APRN Diagnosis: Last Documented On 5 9:50AM By Quentin Burk ; [facility] Tamsulosin HCl 0.4 MG Oral Capsule 11/03/2024 Provid er: Maya Torres APRN Diagnosis: Last Documented On 5 3:49PM By Marifer Nuñez ; [facility] Amoxicillin 875 MG Oral Tablet 09/11/2024 Provider: Diagnosis: Last Documented On 5 9:50AM By Quentin Burk ; [facility] predniSONE 10 MG Oral Tablet 03/11/2021 Provider: Jarek Muñiz DO Diagnosis: Last Documented On 8:34AM By Deborah Lowery ; [facility] Amoxicillin 500 MG Oral Capsule 03/11/2021 Provider: Jarek Muñiz DO Diagnosis: Last Documented On 8:34AM By Deborah Lowery ; [facility] Cephalexin 500 MG Oral Capsule 03/10/2021 Provider: Diagnosis: Last Documented On 8:34AM By Deborah Lowery ; [facility] HYDROcodone-Acetaminophen 5-325 MG Oral Tablet 021 Provider: Diagnosis: Last Documented On 8:34AM By Deborah Lowery ; [facility] Gabapentin 300 MG Oral Capsule 03/06/2021 Provider: Diagnosis: Last Documented On 8:34AM By Deborah Lowery ; [facility] LORazepam 1 MG Oral Tablet 03/06/2021 Provider: Diagnosis: Last Documented On 8:34AM By Deborah Lowery ; [facility] Esomeprazole Magnesium 40 MG Oral Capsule Delayed Rele ase 03/04/2021 Provider: Diagnosis: Last Documented On 8:34AM By Deborah Lowery ; [facility] Esomeprazole Magnesium 40 MG Oral Capsule Delayed Rele ase 03/04/2021 Provider: Diagnosis: Last Documented On 8:34AM By Deborah Lowery ; [facility] Fluticasone Propionate 50 MCG/ACT Nasal Suspension Provider: Diagnosis: Last Documented On 8:35AM By Deborah Lowery ; [facility] Medications Administered Includes: Administered Medications from this encounter No Administered Medications Recorded Results Includes: Results discussed during this encounter No Results Recorded For Specified Dates History of Present Illness Includes: History of Present Illness from this encounter No History of Present Illness Recorded Social History Description Last Updated Sex - Male 07/05/2025 Last Documented On 5 2:08PM ; [facility], [facility] Smoking Status Unknown Medical History Includes: Medical History addressed during this encounter No Medical History Recorded Family History Includes: Family History addressed during this encounter No Family History Recorded Review of Systems Includes: Review of Systems from this encounter No Review of Systems Recorded Physical Exam Includes: Physical Exam from this encounter No Physical Exam Recorded Allergies Includes: Active Allergies No Known Allergies Care Wine Steward/Stewardess Name (Identifier) Role/Relation Location/Telecom Last Documented By Domingo Billingsley MD ([id number]) Assigned practitioner (occupation) tel:[phone] Last Documented On 07/05/2025 2:08PM ; [facility], [facility] Olga Vicki Licea APRN ([id number]) [address] [place] [address], [facility], [address] tel:[phone] Last Documented On 04/05/2019 9:06AM ; [facility] Encounters Encounter Provider Location (Healthcare Service Location) Date Check-In Time Check-Out Time Diagnosis Encounter Disposition [Patient Encounter] Issa Rodriguez MD 2024 8:31AM 11:59PM Payer Includes: Active Insurance Policies Plan Name (Payer ID) Coverage Type Member ID Group # Subscriber (ID) Relationship Effective Dates 1 - Medicare Part B [facility] ([id number]) [id number] Stephane Mendieta Self (Checked on 06/03/2025) Last Documented On 9 7:57AM ; [facility] [id number] Stephane [place] 09/15/2017 - Unknown Last Documented On 9 8:40AM ; [facility], [facility]
--- OUTSIDE RECORDS SUMMARY | 2025-07-06 10:20 | XMS_ITS | Continuity of Care Document ---
Author Organization [employer] [facility]un [facility] Address [address] [place] [address] Assessment No assessment recorded. Plan of Treatment Reminders Order Date Submit Date Provider Last Modified By Organization Details Last Modified Time Details Appointments SAME DAY ACCESS 30 2025 02:30P M Stephanie Torres APRN Not available Not available Not available FOLLOW UP 15 2025 10:30A M Stephanie Torres APRN Not available Not available Not available Lab None recorded. Referral None recorded. Procedures None recorded. Surgeries None recorded. Imaging None recorded. Medication Orders lorazepam 1 mg tablet 2024 025 [facility] (Now [facility]), [address] [facility], [place], [address], 05/09/2025 18:00:59 Patient TargetsNo targets recorded. Patient InstructionsNo instructions recorded. Reason for Referral None Reported. Problems Name Problem SNOMED Code Status Onset Date Resolution Date Notes Provider Name and Address Organization Details Recorded Time Generali zed anxiety disorder [id number] Completed 201609/21/2016 Problem Code: F41.1; Problem Code Type: ICD-10; Maya Torres APRN [address] [place], [address] , [employer] 3 11:40:35 Allergic rhinitis caused by pollen 88900526 Completed 201610/08/2016 Problem Code: J30.1; Problem Code Type: ICD-10; Not Available [facility] 2 21:50:51 Pain in right knee Completed 201608/23/2016 Problem Code: M25.561; Problem Code Type: ICD-10; Not Available [facility] 21:50:53 Pain in left knee Completed 201608/23/2016 Problem Code: M25.562; Problem Code Type: ICD-10; Not Available [facility] 21:51:03 Knee pain Completed 201608/23/2016 Problem Code: 719.46; Problem Code Type: ICD-9; [facility] Acute sinusiti s [id number] Completed 201610/05/2016 Problem Code: J01.90; Problem Code Type: ICD-10; JUAN ANTONIO mortensen, [employer] 11:16:05 Pain in right knee Completed 201611/04/2016 Problem Code: M25.561; Problem Code Type: ICD-10; Not Available [facility] 21:50:53 Prepatel lar bursitis of right knee [id number] 9100 Completed 201612/20/2016 Not Available [facility] 21:50:54 Knee pain Completed 201611/04/2016 Problem Code: 719.46; Problem Code Type: ICD-9; JUAN ANTONIO mortensen [employer] 11:16:05 Prepatel lar bursitis 53581237 Completed 201612/20/2016 Problem Code: 726.65; Problem Code Type: ICD-9; Not Available [facility] 21:51:17 Pain in right knee Completed 201612/13/2016 Problem Code: M25.561; Problem Code Type: ICD-10; Not Available [facility] 21:51:02 Knee pain Completed 201612/13/2016 Problem Code: 719.46; Problem Code Type: ICD-9; JUAN ANTONIO mortensen [employer] 10/18/202 2 11:16:05 Allergic rhinitis 46487400 Completed 201603/11/2017 Problem Code: J30.9; Problem Code Type: ICD-10; Not Available [facility] 2 21:50:51 Allergic rhinitis 53661643 Completed 201605/06/2017 Problem Code: J30.9; Problem Code Type: ICD-10; Not Available [facility] 2 21:50:51 Allergic rhinitis caused by pollen 08818571 Completed 201608/02/2017 Problem Code: J30.1; Problem Code Type: ICD-10; Not Available [facility] 2 21:50:51 Hyperten sive disorder 60755873 Completed 201708/30/2017 Problem Code: I10; Problem Code Type: ICD-10; Not Available [facility] 2 21:50:50 Acute sinusiti s 52329274 Completed 201708/12/2017 Problem Code: J01.90; Problem Code Type: ICD-10; JUAN ANTONIO mortensen [employer] 11:16:05 Benign essentia l hyperten marquis 4775549 Completed 201701/17/2018 Problem Code: 401.1; Problem Code Type: ICD-9; Not Available [facility] 2 21:51:06 Tinea pedis 1350989 Completed 201711/25/2017 Problem Code: B35.3; Problem Code Type: ICD-10; Not Available [facility] 2 21:50:48 Neck pain 54284133 Completed 201711/25/2017 Not Available [facility] 2 21:50:53 Hyperest hesia 41039180 Completed 201711/25/2017 Problem Code: R20.3; Problem Code Type: ICD-10; Not Available [facility] 2 21:50:55 Skin sensatio n disturba nce 70795163 Completed 201711/25/2017 Problem Code: 782.0; Problem Code Type: ICD-9; Not Available [facility] 2 21:51:11 Acquired deformit y of toe 91826522 Completed 201701/09/2021 Problem Code: 735.8; Problem Code Type: ICD-9; Not Available [facility] 2 21:51:11 Onychomy cosis due to dermatop hyte 275288348 Completed 201711/25/2017 Problem Code: 110.1; Problem Code Type: ICD-9; Not Available [facility] 2 21:51:15 Acute sinusiti s 11026722 Completed 201701/31/2018 Problem Code: J01.90; Problem Code Type: ICD-10; JUAN ANTONIO mortensen, [employer] 11:16:05 Non-neop lastic nevus 800386667 Completed 201706/28/2019 Not Available [facility] 2 21:50:58 Large prostate 603671193 Completed 201703/10/2018 Problem Code: N40.0; Problem Code Type: ICD-10; Not Available [facility] 2 21:51:05 Generali zed atherosc lerosis 28196710 Completed 201701/09/2021 Problem Code: 440.9; Problem Code Type: ICD-9; Not Available [facility] 2 21:51:08 Benign prostati c hyperpla mel 916031958 Completed 201701/09/2021 Problem Code: 600.00; Problem Code Type: ICD-9; Not Available [facility] 2 21:51:09 Lacerati on of finger with foreign body 495618308 Completed 201704/25/2018 Problem Code: S61.222A ; Problem Code Type: ICD-10; Not Available [facility] 2 21:50:56 Pre-surg marjorie evaluati on Completed 201704/25/2018 Not Available [facility] 2 21:50:58 Open wound of finger with complica tion 79688289 Completed 201704/25/2018 Problem Code: 883.1; Problem Code Type: ICD-9; Not Available [facility] 21:51:10 Abnormal weight gain 826489487 Completed 201705/09/2018 Problem Code: R63.5; Problem Code Type: ICD-10; Not Available [facility] 21:50:55 Mixed hyperlip idemia 491273470 Completed 201701/09/2021 Problem Code: 272.2; Problem Code Type: ICD-9; Tamar mortensen [facility] [employer] [facility]. 09:56:03 Anemia of chronic disease 449596203 Completed 201706/28/2019 Problem Code: D63.8; Problem Code Type: ICD-10; Not Available [facility] 21:50:49 Prostate specific antigen above referenc e range 573516085 Completed 201705/12/2018 Problem Code: R97.20; Problem Code Type: ICD-10; Not Available [facility] 21:50:56 Iron deficien cy anemia secondar y to inadequa te dietary iron intake 582688645 Completed 201705/27/2018 Problem Code: D50.8; Problem Code Type: ICD-10; Not Available [facility] 21:50:49 Ulcerati ve pancolit is 942307751 Completed 201706/28/2019 Problem Code: K51.00; Problem Code Type: ICD-10; Not Available [facility] 21:50:52 Abscess of limb 218234136 Completed 201705/27/2018 Problem Code: L02.415; Problem Code Type: ICD-10; Not Available [facility] 21:51:00 Abscess of leg, except foot 06911999 Completed 201705/27/2018 Not Available [facility] 21:51:10 Ulcerati ve colitis 14213499 Completed 201701/09/2021 Problem Code: 556.6; Problem Code Type: ICD-9; Not Available [facility] 21:51:16 Anemia due to chronic blood loss 925347136 Active 2017 Problem Code: D50.0; Problem Code Type: ICD-10; Not Available [facility] 2 21:50:49 Ulcerati ve pancolit is 296409117 Completed 201706/28/2019 Problem Code: K51.00; Problem Code Type: ICD-10; Not Available [facility] 2 21:50:52 Ulcerati ve colitis 04050216 Completed 201701/09/2021 Problem Code: 556.6; Problem Code Type: ICD-9; Not Available [facility] 2 21:51:17 Acute posthemo rrhagic anemia 223510752 Completed 201706/12/2018 Problem Code: D62; Problem Code Type: ICD-10; Not Available [facility] 2 21:50:49 Acute posthemo rrhagic anemia 654241632 Completed 201706/17/2018 Problem Code: D62; Problem Code Type: ICD-10; Not Available [facility] 2 21:50:49 Acute posthemo rrhagic anemia 110635926 Completed 201706/24/2018 Problem Code: D62; Problem Code Type: ICD-10; Not Available [facility] 2 21:50:49 Pain in right knee Completed 201705/01/2018 Problem Code: M25.561; Problem Code Type: ICD-10; Not Available [facility] 2 21:50:53 Pain in left knee Completed 201705/01/2018 Problem Code: M25.562; Problem Code Type: ICD-10; Not Available [facility] 2 21:50:54 Knee pain Completed 201705/04/2022 Problem Code: 719.46; Problem Code Type: ICD-9; JUAN ANTONIO mortensen [employer] 2 11:16:05 Acute sinusiti s 70363126 Completed 201707/03/2018 Problem Code: J01.90; Problem Code Type: ICD-10; JUAN ANTONIO mortensen [employer] 11:16:05 Acute bronchit is 57665239 Completed 201708/18/2018 Problem Code: J20.9; Problem Code Type: ICD-10; Not Available [facility] 2 21:50:51 Idiopath ic osteoart hritis 497207479 Active 2018 Problem Code: M17.0; Problem Code Type: ICD-10; Not Available [facility] 2 21:51:01 Allergic sensitiz ation 273627150 Completed 201805/04/2022 JUAN ANTONIO mortensen, [employer] 11:16:05 Mixed hyperlip idemia 383985843 Active 2018 Problem Code: E78.2; Problem Code Type: ICD-10; Tamar mortensen, [employer] 5 09:56:03 Large prostate 573436476 Active 2018 Problem Code: N40.0; Problem Code Type: ICD-10; Not Available [facility] 2 21:50:54 Dysthymi a 68265424 Active 2018 Problem Code: R53.81; Problem Code Type: ICD-10; Not Available [facility] 21:51:11 Primary insomnia 7901293 Active 2018 Problem Code: F51.01; Problem Code Type: ICD-10; Not Available [facility] 2 21:50:50 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 11:16:05 Body mass index 30+ - obesity 629294783 Active 2018 Problem Code: Z68.35; Problem Code Type: ICD-10; Not Available [facility] 2 21:50:59 Diabetes mellitus screenin g Completed 201805/04/2022 Problem Code: Z13.1; Problem Code Type: ICD-10; JUAN ANTONIO mortensen [employer] 2 11:16:05 Body mass index 30+ - obesity 434630692 Completed 201807/17/2020 Problem Code: Z68.35; Problem Code Type: ICD-10; Not Available [facility] 21:51:01 Atelecta sis 22307508 Completed 201812/14/2019 Problem Code: J98.11; Problem Code Type: ICD-10; Not Available [facility] 2 21:50:52 General examinat ion of patient Completed 201806/28/2019 JUAN ANTONIO mortensen [employer] 2 11:16:05 Body mass index 30+ - obesity 717027907 Completed 201807/17/2020 Problem Code: Z68.35; Problem Code Type: ICD-10; Not Available [facility] 2 21:51:01 Body mass index 30+ - obesity 065641788 Completed 201807/17/2020 Problem Code: Z68.35; Problem Code Type: ICD-10; Not Available [facility] 2 21:51:00 Body mass index 30+ - obesity 156911843 Completed 201907/17/2020 Problem Code: Z68.36; Problem Code Type: ICD-10; Not Available [facility] 2 21:51:13 Disorder of skin and/or subcutan eous tissue 32091946 Completed 201905/04/2022 JUAN ANTONIO mortensen, [employer] 11:16:05 Body mass index 30+ - obesity 768818620 Completed 201907/17/2020 Problem Code: Z68.36; Problem Code Type: ICD-10; Not Available [facility] 21:51:00 General examinat ion of patient Completed 201905/04/2022 JUAN ANTONIO mortensen, [employer] 11:16:05 General examinat ion of patient Completed 202009/15/2020 JUAN ANTONIO mortensen, [employer] 11:16:05 Body mass index 30+ - obesity 849444909 Completed 202009/15/2020 Problem Code: Z68.36; Problem Code Type: ICD-10; Not Available [facility] 21:51:14 Cough 69803337 Completed 202004/02/2021 Problem Code: R05; Problem Code Type: ICD-10; Not Available [facility] 21:50:54 Acute sinusiti s 80603517 Completed 202005/04/2022 Problem Code: J01; Problem Code Type: ICD-10; JUAN ANTONIO mortensen, [employer] 11:16:05 Eruption 278263757 Completed 202005/04/2022 Problem Code: R21; Problem Code Type: ICD-10; JUAN ANTONIO mortensen, [employer] 11:16:05 Contusio n of anterior abdomina l wall 201659315 Completed 202005/04/2022 JUAN ANTONIO mortensen, [employer] 11:16:05 Malignan t neoplasm of skin 592541040 Completed 202004/02/2021 Problem Code: C44.90; Problem Code Type: ICD-10; Not Available [facility] 09/05/202 2 21:50:49 Allergic rhinitis 29079727 Active 2020 Problem Code: J30.9; Problem Code Type: ICD-10; Not Available [facility] 2 21:50:52 Abrasion of skin of palm of hand 704314564 Completed 202109/24/2021 Not Available [facility] 2 21:50:56 Current drug user 537187806 Active 2021 Problem Code: Z79.899; Problem Code Type: ICD-10; Not Available [facility] 2 21:51:02 Acute frontal sinusiti s 30741203 Completed 202105/04/2022 Problem Code: J01.1; Problem Code Type: ICD-10; JUAN ANTONIO mortensen, [employer] 2 11:16:06 Generali zed anxiety disorder 79960596 Active 2022 Problem Code: F41.1; Problem Code Type: ICD-10; Maya Torres, SIMI [address] [place] [address], [address] , [employer] 3 11:40:35 Problem Notes None recorded. Procedures Surgical History Date Name Laterality Status Provider Name and Address Organization Details Recorded Time 7 hernia repair completed Not Available [facility] 03/23/2022 22:56:15 Imaging Results None recorded. Procedure Notes None recorded. Medical Equipment None Reported. Allergies No known drug allergies Medications Name Sig Start Date Stop Date Status Note LastModified by Organization Details LastModified Time losartan 50 mg tablet Take 1 tablet(s) by mouth daily 01/17 completed Not Available Not Available Not Available cetirizine 5 mg-pseudoep hedrine ER 120 mg tablet,exte nded release,12h r Take 1 tablet(s) by mouth daily 10/01 completed Not Available Not Available Not Available amoxicillin 500 mg capsule TAKE 1 CAPSULE BY MOUTH THREE TIMES DAILY 05/04 completed Not Available Not Available Not Available methocarbam ol 500 mg tablet TAKE 2 TABLETS BY MOUTH EVERY 6 HOURS NEEDED 01/30 completed Not Available Not Available Not Available prednisone 10 mg tablet TAKE 1 TABLET EVERY DAY 2024 active Not Available Not Available Not Avai lable doxycycline hyclate 100 mg capsule TAKE 1 CAPSULE BY MOUTH TWICE DAILY WITH MEALS FOR 7 DAYS FOR POSTOPERA TIVE CARE 02/01 completed Not Available Not Available Not Available ipratropium 0.5 mg-albutero l 3 mg (2.5 mg base)/3 mL nebulizatio n soln Inhale 3 mL 4 times a day by nebulizat ion route as needed. 2024 active Not Available Not Available Not Avai [employer]able sulfasalazi ne 500 mg tablet TAKE 2 TABLETS TWICE DAILY 2024 active Not Available Not Available Not [employer] clindamycin HCl 300 mg capsule TAKE 1 CAPSULE BY MOUTH THREE TIMES DAILY 01/29 completed Not Available Not Available Not Available cetirizine 10 mg tablet TAKE 1 TABLET AT BEDTIME 2024 active Not Available Not Available Not Avai [employer]able azithromyci n 250 mg tablet 09/27 completed Not Available Not Available Not Available hydrocodone 5 mg-acetamin ophen 325 mg tablet TAKE 1 TABLET BY MOUTH EVERY 4 HOURS FOR PAIN 09/27 completed Not Available Not Available Not Available ondansetron HCl 4 mg tablet TAKE 1 TABLET BY MOUTH EVERY 6 HOURS NEEDED FOR NAUSEA AND VOMITING 05/04 completed Not Available Not Available Not Available prednisone 20 mg tablet TAKE 3 TABLETS BY MOUTH ONCE DAILY FOR 3 DAYS THEN 2 ONCE DAILY FOR 3 DAYS THEN 1 ONCE DAILY FOR 3 DAYS active Not Available Not Available No t Available prednisone 5 mg tablet TAKE 1 TABLET ONE TIME DAILY 02/01 completed Not Available Not Available Not Available potassium chloride ER 10 mEq tablet,exte nded release Take 1 tablet(s) by mouth daily 01/16 completed Not Available Not Available Not Available dextrometho rphan-guaif enesin 10 mg-100 mg/5 mL oral syrup Take 1 teaspoon by mouth q4h prn for cough 08/01 completed Not Available Not Available Not Available ciprofloxac in 500 mg tablet 09/27 completed Not Available Not Available Not Available sulfamethox azole 800 mg-trimetho prim 160 mg tablet TAKE 1 TABLET BY MOUTH EVERY 12 HOURS 05/09 completed Not Available Not Available Not Available omeprazole 40 mg capsule,del ayed release TAKE 1 CAPSULE ONE TIME DAILY BEFORE A MEAL 12/31 completed Not Available Not Available Not Available tramadol 50 mg tablet Take 1 tablet(s) by mouth q 4 to 6 hr 06/24 completed Not Available Not Available Not Available Depo-Medrol 80 mg/mL suspension for injection Take 1 mL by injection route. 01/30 completed Not Available Not Available Not Available prednisone 10 mg tablets in a dose pack TAKE 6 TABLETS ON DAY 1 THEN TAKE 5 TABLETS ON DAY 2 THEN TAKE 4 TABLETS ON DAY 3 THEN TAKE 3 TABLETS ON DAY 4 THEN TAKE 2 TABLETS ON DAY 5 THEN TAKE 1 TABLET ON DAY 6. TAKE ALL DOSES WITH FOOD. 02/01 completed Not Available Not Available Not Available ceftriaxone 1 gram solution for injection Take 1 g by injection route. 09/27 completed Not Available Not Available Not Available amoxicillin 875 mg tablet TAKE 1 TABLET BY MOUTH TWICE DAILY FOR 10 DAYS active Not Available Not Available No t Available amitriptyli ne 25 mg tablet 07/15 completed Not Available Not Available Not Available Claritin-D 24 Hour 10 mg-240 mg tablet,exte nded release Take 1 tablet(s) by mouth daily prn for allergies 11/18 completed Not Available Not Available Not Available tamsulosin 0.4 mg capsule TAKE 1 CAPSULE TWICE DAILY 2024 active Not Available Not Available Not Avai lable benzonatate 100 mg capsule Take 1 capsule 3 times a day by oral route as directed for 10 days. 08/02 completed Not Available Not Available Not Available cephalexin 500 mg capsule TAKE 1 CAPSULE BY MOUTH TWICE DAILY FOR 10 DAYS 04/03 completed Not Available Not Available Not Available pantoprazol e 40 mg tablet,emma yed release TAKE 1 TABLET EVERY DAY 2024 active Not Available Not Available Not Avai lable trazodone 150 mg tablet TAKE 1 TABLET AT BEDTIME 2024 active Not Available Not Available Not Avai lable esomeprazol e magnesium 40 mg capsule,del ayed release TAKE 1 CAPSULE BY MOUTH ONCE DAILY 10/18 /2022 completed Not Available Not Available Not Available Promethazin e VC 6.25 mg-5 mg/5 mL oral syrup TAKE 5 ML BY MOUTH EVERY 6 HOURS NEEDED FOR CONGESTIO N AND FOR COUGH AND COLD MAY CAUSE DROWSINES S 05/04 completed Not Available Not Available Not Available lisinopril 10 mg tablet Take 1 tablet(s) by mouth daily 08/16 completed Not Available Not Available Not Available prednisone 50 mg tablet 09/27 completed Not Available Not Available Not Available promethazin e 25 mg tablet take 1 tablet (25 mg) by oral route q HS PRN for cough 11/11 completed Not Available Not Available Not Available fluticasone 500 mcg-salmete rol 50 mcg/dose blistr powdr for inhalation INHALE 1 PUFF TWICE DAILY active Not Available Not Available No t Available gabapentin 300 mg capsule Take 1 capsule(s ) by mouth at bedtime 07/31 completed Not Available Not Available Not Available Claritin-D 12 Hour 5 mg-120 mg tablet,exte nded release Take 1 tablet(s) by mouth bid 04/22 completed Not Available Not Available Not Available balsalazide 750 mg capsule Take 3 capsule(s ) by mouth tid 02/24 completed Not Available Not Available Not Available diclofenac sodium 75 mg tablet,emma yed release Take 1 tablet(s) by mouth bid 01/16 completed Not Available Not Available Not Available montelukast 10 mg tablet TAKE 1 TABLET EVERY EVENING 2024 active Not Available Not Available Not Avai lable codeine 10 mg-guaifene sin 100 mg/5 mL oral liquid take 10 millilite rs by oral route every 4 hours as needed 11/11 completed Not Available Not Available Not Available mupirocin 2 % topical ointment APPLY TOPICALLY TO THE AFFECTED AREA THREE TIMES DAILY 05/04 completed Not Available Not Available Not Available lorazepam 1 mg tablet Take 1 tablet(s) by mouth tid 2024 active Not Available Not Available Not Avai lable azelastine 137 mcg (0.1 %) nasal spray spray 1 spray (137 mcg) in each nostril by intranasa l route 2 times per day 05/29 completed Not Available Not Available Not Available levofloxaci n 500 mg tablet TAKE 1 TABLET BY MOUTH EVERY 24 HOURS FOR 6 DAYS 10/01 completed Not Available Not Available Not Available levofloxaci n 750 mg tablet TAKE 1 TABLET BY MOUTH ONCE DAILY 10/02 completed Not Available Not Available Not Available methylpredn isolone 4 mg tablets in a dose pack TAKE BY MOUTH DIRECTED ON INSIDE OF PACKAGE 04/03 completed Not Available Not Available Not Available hydrocodone 10 mg-chlorphe niramine 8 mg/5 mL oral susp extend.rel 12hr take 5 millilite rs by oral route every 12 hours PRN cough 05/04 completed Not Available Not Available Not Available albuterol sulfate HFA 90 mcg/actuati on aerosol inhaler INHALE 1 PUFF BY MOUTH EVERY 4 HOURS NEEDED FOR SHORTNESS OF BREATH OR WHEEZING active Not Available Not Available No t Available ipratropium bromide 42 mcg (0.06 %) nasal spray USE 2 SPRAY(S) IN EACH NOSTRIL THREE TIMES DAILY active Not Available Not Available No t Available ketorolac 60 mg/2 mL intramuscul ar solution Inject 2 mL every day by intramusc ular route for 1 day. 01/30 completed Not Available Not Available Not Available celecoxib 100 mg capsule take 1 capsule (100 mg) by oral route 2 times per day 05/04 completed Not Available Not Available Not Available bromphenira mine-pseudo ephedrine-D M 2 mg-30 mg-10 mg/5 mL oral syrup TAKE 5 ML BY MOUTH EVERY 4 HOURS NEEDED FOR SINUS SYMPTOMS 09/27 completed Not Available Not Available Not Available cefdinir 300 mg capsule TAKE 1 CAPSULE BY MOUTH TWICE DAILY 02/01 completed Not Available Not Available Not Available losartan 100 mg tablet TAKE 1 TABLET EVERY DAY 2024 active Not Available Not Available Not Avai lable fluticasone propionate 50 mcg/actuati on nasal spray,suspe nsion USE 1 SPRAY IN EACH NOSTRIL TWICE DAILY 2024 active Not Available Not Available Not Avai lable doxycycline hyclate 100 mg tablet TAKE 1 TABLET BY MOUTH TWICE DAILY WITH MEALS FOR 5 DAYS FOR POSTOPERA TIVE CARE 12/03 completed Not Available Not Available Not Available finasteride 5 mg tablet TAKE 1 TABLET EVERY DAY 2024 active Not Available Not Available Not Avai lable loratadine 10 mg tablet Take 1 tablet(s) by mouth daily 07/20 completed Not Available Not Available Not Available amoxicillin 875 mg-potassiu m clavulanate 125 mg tablet Take 1 tablet every 12 hours by oral route for 10 days. 03/25 completed Not Available Not Available Not Available amoxicillin 500 mg-potassiu m clavulanate 125 mg tablet take 1 tablet by oral route every 12 hours 05/04 completed Not Available Not Available Not Available Advil Cold and Sinus 30 mg-200 mg tablet TAKE 1 TABLET BY MOUTH EVERY 4 TO 6 HOURS NEEDED 10/01 completed Not Available Not Available Not Available Mucinex 600 mg tablet, extended release Take 1 tablet every 12 hours by oral route. 08/04 completed Not Available Not Available Not Available Sucraid 8,500 unit/mL oral solution 05/04 completed Not Available Not Available Not Available nitrofurant oin monohydrate /macrocryst als 100 mg capsule TAKE 1 CAPSULE BY MOUTH TWICE DAILY FOR 7 DAYS 01/30 completed Not Available Not Available Not Available duloxetine 30 mg capsule,del ayed release 3 pills daily 01/17 completed Not Available Not Available Not Available duloxetine 60 mg capsule,del ayed release TAKE 1 CAPSULE EVERY DAY 2024 active Not Available Not Available Not Avai lable Prevacid OTC 1 qd 05/29 completed Not Available Not Available Not Available Advil Allergy Sinus one tablet 3 times a day active Not Available Not Available No t Available cholecalcif santa (vitamin D3) 1,250 mcg (50,000 unit) capsule Take 1 capsule(s ) by mouth q week 01/16 completed Not Available Not Available Not Available Xyzal 5 mg tablet Take 1 tablet(s) by mouth each evening 05/17 completed Not Available Not Available Not Available Mucinex 1,200 mg tablet, extended release Take 1 tablet twice a day by oral route. 08/04 completed Not Available Not Available Not Available omeprazole 20 mg tablet,emma yed release gerd 05/04 completed Not Available Not Available Not Available BD Allergy Syringe 1 mL 28 gauge USE DIRECTED active Not Available Not Available No t Available Gavilyte-C 240 gram-22.72 gram-6.72 gram-5.84 gram oral solution TAKE DIRECTED 12/31 completed Not Available Not Available Not Available sodium,pota ssium,mag sulfates 17.5 gram-3.13 gram-1.6 gram oral soln DILUTE AND DRINK FULL AMOUNT EARLY EVENING BEFORE AND THE NEXT MORNING AT LEAST 2 HOURS BEFORE PROCEDURE . FOLLOW WITH 960ML OF WATER BY MOUTH active Not Available Not Available No t Available potassium chloride ER 20 mEq tablet,exte nded release TAKE ONE TABLET BY MOUTH EVERY DAY FOR 3 DAYS active Not Available Not Available No t Available Nasacort 55 mcg nasal spray aerosol 2 spray(s) in each nostril daily 12/13 completed Not Available Not Available Not Available Vitals Date Recorded Body height Body mass index (BMI) Body weight Heart rate Oxygen saturation Systolic And Diastolic Provider Name and Address Organization Details Last Updated DateTime 5 175.26 cm 36.8 kg/m2 804836. 5 g 83 /min 91 % 134/85 mm[Hg] Tamar Durham [employer] 5 10:47:28 Social History Question Answer Notes LastModified by Organizat ion Details LastModified Time Tobacco Smoking Status Former Smoker JUAN ANTONIO mortensen, [employer], [employer] 05/04/2022 11:17:53 Do You Have An Advance Directive? No [email or web address] Information n ot available 06/04/2022 Are You Blind Or Do You Have Difficulty Seeing? No [email or web address] Information n ot available 05/04/2022 What Is Your Level Of Caffeine Consumption? Moderate Information not available 11/30/2022 Are You A Caregiver? No [email or web address] Information not available 06/04/2022 In The 14 Days Before Symptom Onset, Have You Had Close Contact With A Laboratory-confirm ed COVID-19 While That Case Was Ill? No [email or web address] Information n ot available 10/01/2022 In The 14 Days Before Symptom Onset, Have You Had Close Contact With A Person Who Is Under Investigation For COVID-19 While That Person Was Ill? No [email or web address] Information not available 10/01/2022 Have You Been To An Area Known To Be High Risk For COVID-19? No [email or web address] Information not available 10/01/2022 Are You Deaf Or Do You Have Serious Difficulty Hearing? No Information not available 05/04/2022 What Type Of Diet Are You Following? REGULAR [email or web address] Information n ot available 06/04/2022 Have There Been Any Changes To Your Family Or Social Situation? No [email or web address] Information no t available 06/04/2022 When Did You Quit Smoking? 6-10yearssinc elastcigarett e Information not available 06/01/2024 Do You Have A Medical Power Of Janitorial Services Supervisor? No Information not available 06/04/2022 What Was The Date Of Your Most Recent Tobacco Screening? 05/09/2025 Information not available 05/09/2025 What Is Your Current Pack Years? 20-29packyear s [email or web address] Information not available 05/04/2022 What Is Your Relationship Status? [email or web address] Information not available 05/04/2022 Do You Use Your Seat Belt Or Car Seat Routinely? Yes Information not available 06/04/2022 Do You Have Smoke And Carbon Monoxide Detectors In Your Home? Yes [email or web address] Information not available 06/04/2022 How Much Tobacco Do You Smoke? 1 PPD Information not available 06/01/2024 Do You Use Sunscreen Routinely? No [email or web address] Information not available 06/04/2022 Have You Recently Traveled Abroad? No [email or web address] Information not available 06/04/2022 Do You Have Difficulty Walking Or Climbing Stairs? No Information not available 05/04/2022 Are You Currently In School? No [email or web address] Information not available 06/04/2022 Do You Have Any Dietary Restrictions? No Information not available 06/04/2022 Sex: Male Functional Status Question Answer Note LastModified by Organizat ion Details LastModified Time Do you use any illicit or recreational drugs? No Information not available 11/30/2022 What is your level of alcohol consumption? None [email or web address] Information not available 05/04/2022 Are you currently employed? No [email or web address] Information not available 06/04/2022 Do you have transportation difficulties? No Information not available 05/04/2022 Are you able to walk independently without assistance or assistive devices? YESWOREST [email or web address] Information not available 05/04/2022 Do you have difficulty doing errands alone? No [email or web address] Information not available 05/04/2022 Are you able to care for yourself independently? Yes [email or web address] Information not available 05/04/2022 Do you have difficulty dressing, bathing, grooming, or toileting? No [email or web address] Information not available 05/04/2022 What is your exercise level? None [email or web address] Information not available 06/04/2022 Mental Status Question Answer Note LastModified by Organization D etails LastModified Time Do you have difficulty concentrating, remembering or making decisions? No [email or web address] Information no t available 05/04/2022 Family History Relationship Description Onset Age of this Age Resolved Age Notes LastModified by Organization Details LastModified Time Unspecified Relation Family history of Hypertension [email or web address] Not available 11:16:26 Unspecified Relation Family history of malignant neoplasm [email or web address] Not available 05/04 11:16:34 Unspecified Relation Family history of polyp of colon [email or web address] Not available 05/04 11:16:39 Medical History Condition Response Allergies (Food, seasonal, environmental ) Y Hypertension Y GI Problems Y Immunizations Vaccine Type Date Status Note Provider Name and Address Organization Details Recorded Time zoster recombinant 024 cancelled patient objection Maya Torres APRN [address] [place], [address], [employer] 10/03/2023 13:15:21 pneumococcal polysaccharide PPV23 019 completed Tamar mortensen, [employer] 05/09/2025 10:23:09 Pneumococcal conjugate PCV 13 10/08/2 018 completed Tamar Durham null, [employer] 05/09/2025 10:23:09 COVID-19, mRNA, LNP-S, PF, 100 mcg/0.5mL dose or 50 mcg/0.25mL dose 021 completed Tamar Castellony null, [employer] 05/09/2025 10:23:09 COVID-19, mRNA, LNP-S, PF, 100 mcg/0.5mL dose or 50 mcg/0.25mL dose 021 completed Tamar Castellony null, [employer] 05/09/2025 10:23:09 COVID-19, mRNA, LNP-S, PF, 100 mcg/0.5mL dose or 50 mcg/0.25mL dose 021 completed Tamar Marva null, [employer] 05/09/2025 10:23:09 Influenza, high-dose, trivalent, PF 019 completed JUAN ANTONIO EILEEN null, [employer] 07/02/2022 11:24:10 Influenza, split virus, trivalent, PF 017 completed JUAN ANTONIO EILEEN null, [employer] 07/02/2022 11:24:10 Influenza, MDCK, quadrivalent, PF completed JUAN ANTONIO EILEEN null, [employer] 07/02/2022 11:24:10 Tdap 016 completed JUAN ANTONIO EILEEN null, [employer] 07/02/2022 11:24:10 Influenza, high-dose, trivalent, PF 018 completed JUAN ANTONIO EILEEN null, [employer] 07/02/2022 11:24:10 COVID-19, mRNA, LNP-S, bivalent, PF, 50 mcg/0.5 mL or 25mcg/0.25 mL dose 022 completed JUAN ANTONIO EILEEN null, [employer] 07/02/2022 11:24:10 Influenza, high-dose, quadrivalent, PF 022 completed [facility] ANTONIO mort[facility], [facility] 07/02/2022 11:24:10 Influenza, high-dose, quadrivalent, PF 021 completed [facility]ensen [facility] 07/02/2022 11:24:10 RSV, recombinant, protein subunit RSVpreF, adjuvant reconstituted, 0.5 mL, PF 023 completed Not Available [facility] 05/09/2025 10:21:48 Influenza, high-dose, quadrivalent, PF 023 completed Not Available [facility] 05/09/2025 10:21:48 Influenza, high-dose, trivalent, PF 024 completed Not Available [facility] 05/09/2025 10:21:48 Pneumococcal conjugate PCV20, polysaccharide [id number] conjugate, adjuvant, PF 025 completed Not Available [facility] 05/09/2025 10:21:48 Influenza, high-dose, trivalent, PF 025 completed Not Available [facility] 05/09/2025 10:21:48 Influenza, high-dose, quadrivalent, PF 020 completed [facility] mortensen, [facility] 05/09/2025 10:23:09 Past Encounters Encounter ID Performer Location Encounter Start Date Encounter Closed Date Diagnosis/Indication Diagnosis SNOMED-CT Code Diagnosis ICD10 Code Diagnosis IMO Codes Diagnosis Note [id number] Maya Torres [address] [address] 05/09/2025 10:20:23 05/09/2025 11:27:11 Generalized anxiety disorder 87994498 F41.1 controlled substance agreement and drug screen UTD at this time. Essential hypertension 08430303 I10 Gastroesop hageal reflux disease without esophagitis 814266855 K21.9 Allergic rhinitis 038290 04 J30.9 Body mass index 30+ - obesity 323183058 Z68.36 365307 Health Concerns Section Related Observation LastModified by Organization Detai ls LastModified Time None Recorded Concern Status LastModified by Organization Details LastModified Time None Recorded Payers Encounter Date Sequence Insurance Name Policy Number Policy [place] Covered Member ID [place] Member ID Guarantor Name 05/09/2025 2 [employer] - [employer] (MEDICARE SUPPLEMENT) Stephane Lozano Anam [id number] Stephane Mendieta 05/09/2025 1 [place] Stephane Mendieta [id number] Stephane Mnedieta Notes Date Note Type Note Provider Name and Address Organization Details Recorded Time 05/09/2025 text/html pt here today for medication refills. pt states hes doing well on current medication regime and has no new complaints today. pt requested more trelegy samples and i gave him 4. Maya Torres, FAMILY SUPPORT SPECIALIST [address] [facility], [place], [address], [facility] [employer] 05/09/2025 18:02:01
--- OUTSIDE RECORDS SUMMARY | 2025-07-06 10:20 | XMS_ITS | Clinical Summary ---
Author Organization [employer] ([place], [place], [place], [place], [place]) Address [address] [place] [address] Care Team Providers Care Customer Service Clerk Name Role Phone Maya Torres APRN Primary Care Provider [phone] Allergies No known active allergies Medications traZODone (DESYREL) 150 MG tablet Take by mouth. 08/20/2022 Active tamsulosin (FLOMAX) 0.4 mg Cap 24 hr capsule Take by mouth. 08/20/2022 Active sulfaSALAzine (AZULFIDINE) 500 mg tablet Take by mouth. 07/02/2022 Active predniSONE (DELTASONE) 5 MG tablet Take by mouth. 08/20/2022 Active omeprazole (PriLOSEC) 40 MG capsule Take by mouth. 07/22/2022 Active montelukast (SINGULAIR) 10 mg tablet Take by mouth. 07/30/2022 Active methylPREDNISolo ne (MEDROL DOSEPACK) 4 mg tablet Take by mouth. 07/15/2022 Active losartan (COZAAR) 100 MG tablet Take by mouth. 07/30/2022 Active LORazepam (ATIVAN) 1 MG tablet Take by mouth. 08/03/2022 Active gabapentin (NEURONTIN) 300 MG capsule Take by mouth. 08/03/2022 Active finasteride (PROSCAR) 5 mg tablet Take by mouth. 08/20/2022 Active DULoxetine (CYMBALTA) 60 MG capsule Take by mouth. 08/20/2022 Active doxycycline (VIBRAMYCIN) 100 MG capsule Take by mouth. 07/15/2022 Active benzonatate (TESSALON) 100 MG capsule Take by mouth. 07/15/2022 Active Social History Tobacco Use Types Packs/Day Years Used Date Smoking Tobacco: Former Smokeless Tobacco: Never Alcohol Use Standard Drinks/Week Comments Never 0 (1 standard drink = 0.6 oz pur e alcohol) Employment Answer Date Recorded Help finding and keeping a job Not on file 0 08/04/2023 Family and Community Support Answer Mick e Recorded Help with Day to Day Activities Not on file 08/04/2023 Feeling Lonely or Isolated Not on file 08/04 Educational Attainment Answer Date Jan rded Speak language other than Croatian at home Not on file 08/04/2023 Want help with school or training Not on file 08/04/2023 Substance Use Answer Date Recorded Used prescription meds for non-medical reasons N ot on file 08/04/2023 Used illegal drugs past 12 months Not on file 08/04/2023 Sex and Gender Information Value Date Recorded Sex Assigned at Not on file Legal Sex Male 5:19 PM CDT Gender Identity Not on file Sexual Orientation Not on file Plan of Treatment Health Maintenance Due Date Last Done Comments CT Colonography 1952 Colonoscopy 1952 Colorectal Cancer Screening 1952 FOBT/FIT 1952 Fit-DNA (Cologuard) 1952 Sigmoidoscopy 1952 Depression Screening (12+) 1964 Tobacco Cessation Counseling and Screening (12+) 1964 Hepatitis C Screening 1970 Shingles Vaccine (Zoster) (1 of 2) 2002 Medicare Initial AWV [id number] 09/16/2018 Falls Risk Screening 07/18/2024 COVID-19 VACCINE (2024-2 6 season) 2025 04/28/2022, 04/28/2022, 05/09/2021, Additional history exists Influenza Vaccine (#1) 2025 , 03/25/2023, 04/28/2022, Additional history exists DTAP/TDAP/TD VACCINES (2 - T d or Tdap) 11/19/2025 11/20/2015 Respiratory Syncytial Virus (RSV) Adult or (1 - 1-dose 75+ series) 10/07/2027 Pneumococcal 50+ years Completed 04/24/2019, 2017 Insurance MEDICARE PART A B [facility] Care Teams Customer Service Clerk Relationship Specialty Start Date End Date Maya Torres, REGISTERED RESPIRATORY THERAPIST [address] [address] PCP - General Family Medicine 08/27/22
--- OUTSIDE RECORDS SUMMARY | 2025-07-06 10:20 | XMS_ITS | Clinical Summary ---
Author Organization [facility] Address [address] [place] [address] Phone Care Team Providers Care Sheet Metal Apprentice Name Role Phone Jose Cruz COLEMAN, Domingo Jett Unavailable [phone] Olga Licea APRN Unavailable [phone] Reason for Visit and Chief Complaint The Chief Complaint is: back pain Problems Includes: Problems addressed during this encounter and other active Problems All Visits Onset Date Date of Diagnosis Resolved Date Provider Condition Status Soft Tissue Pain Hand 12/05/2024 12/05/2024 Flako Pulido PA-C Active Last Documented On 5 1:43AM ; [facility] History of Lower Back Pain M idline Right Side 04/12/2022 04/12/2022 Holden Mdoi PA-C Active Last Documented On 5 1:41AM ; [facility], [facility] Joint Pain Left Thumb 03/12/2021 03/12/2021 Charles Hernandez MD Active Last Documented On 5 1:40AM ; [facility], [facility] Joint Pain in Both Knees 04/05/2019 04/05/2019 Arlet Billingsley MD Active Last Documented On 5 1:39AM ; [facility] Plan of Treatment - Patient screened for future fall risk: documentation of any fall with injury in past year - Last Documented On 06/11/2025 1:20PM ; [facility], [facility] Fall Risk Assessment: This patient has been identified as a fall risk. Balance/gait along with postural blood pressure, vision and home fall hazards have been assessed. Medications have been reviewed, and recommendations made with regard to contributing factors for future falls. Plan of care: Consideration of vitamin D supplementation along with balance and strength training with consideration for formal physical therapy has been discussed with the patient. - Last Documented On 06/11/2025 1:20PM ; [facility], [facility] Future Appointments Date Time Location Provi tahira Post Op 07/19/2025 11:00AM [facility] MIAH Modi PA-C Last Documented On 5 10:29AM ; [facility], [facility] Instructions to patient Lose weight Last Documented On 8:58AM ; [facility], [facility] Assessments Includes: Assessments from this encounter Findings - Overweight - Last Documented On 06/11/2025 1:20PM ; [facility], [facility] Instructions Includes: Instructions from this encounter Instructions to patient Lose weight Last Documented On 8:58AM ; [facility], [facility] Medical Equipment - Implanted Devices Includes: Current Devices No Medical Equipment Recorded Medications Includes: Medications discussed during this encounter and other current Medications Current Medications (continue as prescribed) Percocet 5-325 MG Oral Tablet 07/03/2025 - 07/18/2025 Provider: Issa Rodriguez MD Diagnosis: 1 po q 4h prn pain Last Documented On 5 8:39AM By Issa Rodriguez ; [facility], [facility] Clindamycin HCl 300 MG Oral Capsule 01/07/2025 Provi tahira: Holden Modi PA-C Diagnosis: Last Documented On 5 10:36AM By Quentin Burk ; [facility], [facility] oxyCODONE-Acetaminophen 5-325 MG Oral Tablet Provider: Issa Rodriguez MD Diagnosis: Last Documented On 5 9:50AM By Quentin Burk ; [facility], [facility] Pantoprazole Sodium 40 MG Or al Tablet Delayed Release 12/09/2024 Provider: Maya Torres APRN Diagnosis: Last Documented On 5 9:50AM By Quentin Burk ; [facility], [facility] LORazepam 1 MG Oral Tablet 12/04/2024 Provider: M ichelle Stone GAS PUMPER Diagnosis: Last Documented On 5 9:50AM By Quentin Burk ; [facility], [facility] Doxycycline Hyclate 100 MG Oral Capsule 12/04/2024 Papito washingtonder: Diagnosis: Last Documented On 5 9:50AM By Quentin Burk ; [facility], [facility] sulfaSALAzine 500 MG Oral Tablet 11/27/2024 Provider : Maya Torres GAS PUMPER Diagnosis: Last Documented On 5 9:50AM By Quentin Burk ; [facility], [facility] Albuterol Sulfate HFA 108 (9 0 Base) MCG/ACT Inhalation Aerosol Solution 11/07/2024 Provider: Maya anderson GAS PUMPER Diagnosis: Last Documented On 5 9:50AM By Quentin Burk ; [facility], [facility] Finasteride 5 MG Oral Tablet 11/03/2024 Provider: Maya Torres GAS PUMPER Diagnosis: Last Documented On 5 9:50AM By Quentin Burk ; [facility], [facility] Tamsulosin HCl 0.4 MG Oral Capsule 11/03/2024 Provid er: Maya Torres GAS PUMPER Diagnosis: Last Documented On 5 3:49PM By Marifer Nuñez ; [facility] Amoxicillin 875 MG Oral Tablet 09/11/2024 Provider: Diagnosis: Last Documented On 5 9:50AM By Quentin Burk ; [facility], [facility] predniSONE 10 MG Oral Tablet 03/11/2021 Provider: Jarek Muñiz DO Diagnosis: Last Documented On 8:34AM By Deborah Lowery ; [facility] Amoxicillin 500 MG Oral Capsule 03/11/2021 Provider: Jarek Muñiz DO Diagnosis: Last Documented On 8:34AM By Deborah Lowery ; [facility] Cephalexin 500 MG Oral Capsule 03/10/2021 Provider: Diagnosis: Last Documented On 8:34AM By Deborah Lowery ; [facility], [facility] HYDROcodone-Acetaminophen 5-325 MG Oral Tablet Provider: Diagnosis: Last Documented On 8:34AM By Deborah Lowery ; [facility] Gabapentin 300 MG Oral Capsule 03/06/2021 Provider: Diagnosis: Last Documented On 8:34AM By Deborah Lowery ; [facility], [facility] LORazepam 1 MG Oral Tablet 03/06/2021 Provider: Diagnosis: Last Documented On 8:34AM By Deborah Lowery ; [facility], [facility] Esomeprazole Magnesium 40 MG Oral Capsule Delayed Rele ase 03/04/2021 Provider: Diagnosis: Last Documented On 8:34AM By Deborah Lowery ; [facility], [facility] Esomeprazole Magnesium 40 MG Oral Capsule Delayed Rele ase 03/04/2021 Provider: Diagnosis: Last Documented On 8:34AM By Deborah Lowery ; [facility] Fluticasone Propionate 50 MCG/ACT Nasal Suspension Provider: Diagnosis: Last Documented On 8:35AM By Deborah Lowery ; [facility], [facility] Past Medications on file Clindamycin HCl 300 MG Oral Capsule 01/07/2025 - 01/09/2025 Provider: Holden Steiner Diagnosis: take 2 pills, 3 three times a day Last Documented On 5 11:06AM By Quentin Burk ; [facility] Clindamycin HCl 300 MG Oral Capsule 12/28/2024 - 01/08/2025 Provider: Holden Steiner Diagnosis: three times a day Last Documented On 5 10:10AM By Quentin Burk ; [facility], [facility] Percocet 5-325 MG Oral Tablet 12/19/2024 - 01/03/2025 Provider: Issa Rodriguez MD Diagnosis: 1 po q 4h prn pain Last Documented On 5 8:40AM By Issa Rodriguez ; [facility], [facility] Losartan Potassium 100 MG Oral Tablet 12/05/2024 - Provider: Diagnosis: Last Documented On 5 3:50PM By Marifer Nuñez ; [facility], [facility] DULoxetine HCl 60 MG Oral Ca psule Delayed Release Particles 12/05/2024 - 03/05/2025 Provider: Diagnosis: Last Documented On 5 3:49PM By Marifer Nuñez ; [facility], [facility] Montelukast Sodium 10 MG Oral Tablet 12/05/2024 - 02/15 Provider: Diagnosis: Last Documented On 5 3:49PM By Marifer Nuñez ; [facility] Medications Administered Includes: Administered Medications from this encounter No Administered Medications Recorded Vital Signs Includes: Vital Signs from this encounter Vital Name 06/06/2025 09:02A Height (in) 69 Weight (lb) 252 Body Mass Index 37.2 Body Surface Area 2.3 Pain Level 5 Last Documented: On 06/06/2025 9:02AM ; [facility], [facility] Results Includes: Results discussed during this encounter No Results Recorded For Specified Dates History of Present Illness Includes: History of Present Illness from this encounter RAMEZ Mendieta is a 74 year old male. - Allergy list reviewed - Problem list reviewed - Medication list reviewed - No previous treatment. - - Review of medications documented Social History Description Last Updated Tobacco non-user 04/22/2022 Last Documented On 5 8:58AM ; [facility] No recent change in diet 04/22/2022 Last Documented On 5 8:58AM ; [facility] Not a current smoker. 04/22/2022 Last Documented On 5 8:58AM ; [facility] Non-smoker 03/12/2021 Last Documented On 5 8:58AM ; [facility] No tobacco use 04/05/2019 Last Documented On 5 8:58AM ; [facility] Smoking status : Never smoker 04/05/2019 Last Documented On 5 8:58AM ; [facility], [facility] Caffeine use 04/05/2019 Last Documented On 5 8:58AM ; [facility] No recent change in diet 04/05/2019 Last Documented On 5 8:58AM ; [facility] Not a current smoker 04/05/2019 Last Documented On 5 8:58AM ; [facility] Not exercising regularly 04/05/2019 Last Documented On 5 8:58AM ; [facility] Not using alcohol 04/05/2019 Last Documented On 5 8:58AM ; [facility] Not using drugs 04/05/2019 Last Documented On 5 8:58AM ; [facility] Sex - Male 07/05/2025 Last Documented On 5 2:08PM ; [facility] Procedures and Surgical History Includes: Procedures from this encounter Procedures Code Diagnosis Performing Provider Service Location Service Date X-RAY EXAM OF TRUNK SPINE [address] Encntr for adjust and mgmt of implanted nervous sys device, Presence of neurostimulator Issa Rodriguez [facility] 06/06/2025 Last Documented On 5 2:21PM ; [facility] Surgical History Last Updated History of hernia repair 04/05/2019 Last Documented On 5 8:58AM ; [facility] Medical History Includes: Medical History addressed during this encounter Description Last Updated No recent immunization for flu Last Documented On 5 8:58AM ; [facility] No recent immunization for pneumococcal pneumonia 03/12/2021 Last Documented On 5 8:58AM ; [facility] cataracs 04/05/2019 Last Documented On 5 8:58AM ; [facility] Arthritic joint problems 04/05/2019 Last Documented On 5 8:58AM ; [facility] Intermittent hypertension 04/05/2019 Last Documented On 5 8:58AM ; [facility] Family History Includes: Family History addressed during this encounter Description Last Updated Family history of cancer 04/05/2019 Last Documented On 5 8:58AM ; [facility] Family history of hypertension 9 Last Documented On 5 8:58AM ; [facility] Review of Systems Includes: Review of Systems from this encounter Systemic: No symptoms, not feeling tired, no recent weight loss, and no recent weight gain. Head: No headache and no sinus pain. Eyes: No vision problems, no Cataracts, no Glasses/Contacts, and no Glaucoma. Otolaryngeal: Hearing loss. No tinnitus. Cardiovascular: No chest pain or discomfort, no palpitations, no Hypertension, and no High Cholesterol. Pulmonary: No daytime asthma symptoms and no chronic cough. No wheezing. Gastrointestinal: No heartburn and no abdominal pain. No Indigestion, no Peptic Ulcer, no GI Stomach Bleed, no Ulcers, and no Acid Reflux. Endocrine: No hot flashes, no muscle weakness, no Diabetes, no Hypothyroid, and no Hyperthyroid. Hematologic: No easy bleeding, no tendency for easy bruising, and no Anemia. Musculoskeletal: No Arthritis and no lower back pain. No soft tissue swelling and no localized joint pain. Neurological: No dizziness, no convulsions, and no numbness. Psychological: Anxiety. No emotional lability, no depression, and no insomnia. Not crying for no reason. Skin: No dry skin. No Ulcers, no Scars, and no rash. Allergic and Immunologic: No complaint of seasonal allergic reaction. Mental Status Includes: Mental Status from this encounter Description Anxiety Last Documented On 5 8:58AM ; [facility] Physical Exam Includes: Physical Exam from this encounter Allergies Includes: Active Allergies No Known Allergies Care Sheet Metal Apprentice Name (Identifier) Role/Relation Location/Telecom Last Documented By Domingo Billingsley MD ([id number]) Assigned practitioner (occupation) tel:[phone] Last Documented On 07/05/2025 2:08PM ; [facility] Olga Cohen Vinayak BELCHER ([id number]) [address] [place] [address], [address] tel:[phone] Last Documented On 04/05/2019 9:06AM ; [facility] Encounters Encounter Provider Location (Healthcare Service Location) Date Check-In Time Check-Out Time Diagnosis Encounter Disposition Follow Up Issa Rodriguez MD [facility] 2024 8:53AM 10:11AM Overweight Payer Includes: Active Insurance Policies Plan Name (Payer ID) Coverage Type Member ID Group # Subscriber (ID) Relationship Effective Dates 1 - Medicare Part B [facility] ([id number]) [id number] Stephane Lozano Anam Self (Checked on 06/03/2025) Last Documented On 9 7:57AM ; [facility] 2 - [employer] Medicare Supplemen t Insurance [id number] Stephane Mendieta Self 09/15/2017 - Unknown Last Documented On 9 8:40AM ; [facility], [facility] Clinical Notes Includes: Clinical Notes from this encounter * Progress note Date Encounter Last Documented by 06/06/2025 Follow Up Last documented on 06/11/2025; 1:20 PM, Issa Rodriguez MD; [facility], [facility] Active Problems & Conditions - History of Lower Back Pain Midline Right Side - Joint Pain in Both Knees - Joint Pain Left Thumb - Soft Tissue Pain Hand Chief Complaint - back pain Referred Here Referred by self. History of Present Illness Stephane Mendieta is a 74 year old male. - Allergy list reviewed - Problem list reviewed - Medication list reviewed - No previous treatment. - - Review of medications documented Current Medication - Albuterol Sulfate HFA 108 (90 Base) MCG/ACT Inhalation Aerosol Solution 50 days, 0 refills - Amoxicillin 500 MG Oral Capsule take as directed 10 days, 0 refills - Amoxicillin 875 MG Oral Tablet 14 days, 0 refills - Cephalexin 500 MG Oral Capsule take as directed 7 days, 0 refills - Clindamycin HCl 300 MG Oral Capsule 4 days, 0 refills - Doxycycline Hyclate 100 MG Oral Capsule 7 days, 0 refills - Esomeprazole Magnesium 40 MG Oral Capsule Delayed Release take as directed 30 days, 0 refills - Esomeprazole Magnesium 40 MG Oral Capsule Delayed Release take as directed 30 days, 0 refills - Finasteride 5 MG Oral Tablet 90 days, 0 refills - Fluticasone Propionate 50 MCG/ACT Nasal Suspension take as directed 90 days, 0 refills - Gabapentin 300 MG Oral Capsule take as directed 30 days, 0 refills - HYDROcodone-Acetaminophen 5-325 MG Oral Tablet take as directed 2 days, 0 refills - LORazepam 1 MG Oral Tablet take as directed 30 days, 0 refills - LORazepam 1 MG Oral Tablet 30 days, 0 refills - oxyCODONE-Acetaminophen 5-325 MG Oral Tablet 15 days, 0 refills - Pantoprazole Sodium 40 MG Oral Tablet Delayed Release 90 days, 0 refills - predniSONE 10 MG Oral Tablet take as directed 15 days, 0 refills - sulfaSALAzine 500 MG Oral Tablet 90 days, 0 refills - Tamsulosin HCl 0.4 MG Oral Capsule 90 days, 0 refills Past Medical/Surgical History Reported: Medical: Arthritic joint problems. Intermittent hypertension. Immunization History: No recent immunization for flu and not for pneumococcal pneumonia. Cataracs. Surgical: - Hernia repair Social History Not a current smoker. Current diet: No recent change in diet. No recent change in diet. Behavioral: Tobacco non-user. Not a current smoker. Caffeine: Caffeine use. Tobacco use: No tobacco use. Non-smoker. Smoking status: Never smoker. Alcohol: Not using alcohol. Drug Use: Not using drugs. Habits: Not exercising regularly. Allergies - No Known Allergies Family History Malignant neoplasm Systemic hypertension Review Of Systems Systemic: No symptoms, not feeling tired, no recent weight loss, and no recent weight gain. Head: No headache and no sinus pain. Eyes: No vision problems, no Cataracts, no Glasses/Contacts, and no Glaucoma. Otolaryngeal: Hearing loss. No tinnitus. Cardiovascular: No chest pain or discomfort, no palpitations, no Hypertension, and no High Cholesterol. Pulmonary: No daytime asthma symptoms and no chronic cough. No wheezing. Gastrointestinal: No heartburn and no abdominal pain. No Indigestion, no Peptic Ulcer, no GI Stomach Bleed, no Ulcers, and no Acid Reflux. Endocrine: No hot flashes, no muscle weakness, no Diabetes, no Hypothyroid, and no Hyperthyroid. Hematologic: No easy bleeding, no tendency for easy bruising, and no Anemia. Musculoskeletal: No Arthritis and no lower back pain. No soft tissue swelling and no localized joint pain. Neurological: No dizziness, no convulsions, and no numbness. Psychological: Anxiety. No emotional lability, no depression, and no insomnia. Not crying for no reason. Skin: No dry skin. No Ulcers, no Scars, and no rash. Allergic and Immunologic: No complaint of seasonal allergic reaction. Physical Findings - Vitals taken 06/06/2025 09:02 am Height 69 in Weight 252 lbs Body Mass Index 37.2 kg/m2 Body Surface Area 2.3 m2 Pain Level 5 Assessment - Overweight Previous Tests Available previous imaging studies were reviewed Available previous history reviewed Counseling/Education - Tobacco non-user - Use of tobacco assessment performed - Lose weight Plan - Patient screened for future fall risk: documentation of any fall with injury in past year Fall Risk Assessment: This patient has been identified as a fall risk. Balance/gait along with postural blood pressure, vision and home fall hazards have been assessed. Medications have been reviewed, and recommendations made with regard to contributing factors for future falls. Plan of care: Consideration of vitamin D supplementation along with balance and strength training with consideration for formal physical therapy has been discussed with the patient. Notes This dictation was done with voice recognition software and may contain errors and omissions. 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 The battery is uncomfortable and he has an ulceration because it is becoming superficial. X- rays show the path of the battery. I have recommended we revised the battery and make it deeper and a different pocket. I discussed the risks benefits alternatives of surgery with him and he wishes to proceed Care Team - Olga Licea APRN - [employer] Health Reminders - Assess BMI satisfied 06/06/2025. - Assess Tobacco Use satisfied 04/05/2019. - Follow Up Plan BMI Management satisfied 06/06/2025.
--- OUTSIDE RECORDS SUMMARY | 2025-07-06 10:20 | XMS_ITS | Encounter Summary ---
Author Organization [email or web address] ([place], [place], [place], [place], [place]) Address [address] [place] [address] Care Team Providers Care Quantometer Operator Name Role Phone Maya Torres APRN Primary Care Provider [phone] Encounter Details Date Type Department Care Team (Late st Contact Info) Description 10/30/2020 Transcribed Document [facility] [place] [address] ProviderJean MD [address] [place] [address] Social History Tobacco Use Types Packs/Day Years Used Date Smoking Tobacco: Never Assessed Sex and Gender Information Value Date Recorded Sex Assigned at Not on file Legal Sex Male 5:19 PM CDT Gender Identity Not on file Sexual Orientation Not on file documented as of this encounter Miscellaneous Notes * Cerner Conversion Note - Historical ProviderMD - 10/30/2020 1:42 PM CDT SARS-CoV-2 (COVID19 PCR) - - Negative 10/27/2020 15:43 10/30/2020 13:42 (MILLIE ANAYA PA-C) Reviewed by Provider, No further action required documented in this encounter Plan of Treatment Not on file documented as of this encounter Visit Diagnoses Not on filedocumented in this encounter Care Teams Quantometer Operator Relationship Specialty Start Date End Date Maya Torres APRN [address] [facility] [address] [place] [address] PCP - General Family Medicine 08/27/22 documented as of this encounter
--- OUTSIDE RECORDS SUMMARY | 2025-07-06 10:20 | XMS_ITS ---
Care Plan - [facility], [facility] Created on: July 06, 2025 Stephane Mendieta : 1950 Sex: Male Author Organization [facility] Address [address] [place] [address] Phone Care Team Providers Care Radio Reporter Name Role Phone Jose Cruz COLEMAN, Domingo Jett Unavailable [phone] Olga Licea APRN Unavailable [phone]
--- OUTSIDE RECORDS SUMMARY | 2025-07-06 10:20 | XMS_ITS | Referral Summary ---
Author Organization [employer] ([place], [place], [place], [place], [place]) Address [address] [place] [address] Care Team Providers Care [employer] Senior Officer Name Role Phone Maya Torres APRN Primary Care Provider [phone] Allergies No known active allergies Medications traZODone [...] Date Jan rded Speak language other than German at home Not on file 08/04/2023 Want [...] Orientation Not on file Plan of Treatment Not on file [facility] Care Teams [employer] Senior Officer Relationship Specialty Start Date End Date Maya Torres, GOVERNMENT SERVICES PROFESSIONAL [address] [id number] PCP - General Family Medicine 08/27/22
--- OUTSIDE RECORDS SUMMARY | 2025-07-06 10:21 | XMS_ITS | Data Portability ---
Author Organization [employer] Address [address] [place] [address] Assessment No assessment recorded. Plan of Treatment Reminders Order Date Submit Date Provider Last Modified By Organization Details Last Modified Time Details Appointments SAME DAY ACCESS 2025 02:30P Nancy Torres APRN Not available Not available Not available FOLLOW UP 2025 10:30A M Stephanie Torres APRN Not available Not available Not available Lab lipid panel, serum 2024 025 [facility]), [address] [place], [address], 03/09/2025 08:10:55 CBC w/ auto diff 2024 025 [place] [facility] [address] [place], [address], 03/09/2025 08:10:54 TSH + free T4, serum 2024 025 [place] [facility]), [address] [place], [address], 03/09/2025 08:10:54 CMP, serum or plasma 2024 025 [place] [facility]), [address] [place], [address], 03/09/2025 08:10:55 HbA1c (hemoglob in A1c), blood 2024 025 [facility]), [address] [place], [address], 03/09/2025 08:10:56 vitamin D, 25-hydrox y, total, serum 2024 025 [facility]), [address] [place], [address], 03/09/2025 08:10:57 PSA, total, serum or plasma 2024 025 [facility]), [address] [place], [address], 03/09/2025 08:10:56 cobalamin and folate panel, serum 2024 025 [facility]), [address] [place], [address], 03/09/2025 08:10:56 drug screen, 14 drugs (detect ed), urine - Lorazepam last taken this AM. 2024 025 [facility]), [address] [place], [address], 10/04/2024 14:08:41 Referral None recorded. Procedures None recorded. Surgeries None recorded. Imaging None recorded. Medication Orders lorazepam 1 mg tablet 2024 [facility] (Now [facility]), [address], [place], [address], 05/09/2025 18:00:59 amoxicill in 875 mg-potass ium clavulana te 125 mg tablet 2024 [facility], [address] [place] [address], [address], 03/25/2025 05:01:32 duloxetin e 60 mg capsule,d elayed release 2024 [facility], [address] [facility], [place], [address], 02/01/2025 12:20:54 cetirizin e 10 mg tablet 2024 025 [facility], [address] [facility], [place], [address], 02/01/2025 12:20:59 fluticaso ne propionat e 50 mcg/actua tion nasal spray,kvng pension 2024 025 [facility], [address] [facility], [place], [address], 02/01/2025 12:20:55 finasteri de 5 mg tablet 2024 025 [facility], [address] [facility], [place], [address], 02/01/2025 12:20:56 tamsulosi n 0.4 mg capsule 2024 025 [facility], [address] [facility], [place], [address], 02/01/2025 12:20:55 prednison e 10 mg tablet 2024 025 [facility], [address] [facility], [place], [address], 02/01/2025 12:20:58 ipratropi um 0.5 mg-albute rol 3 mg (2.5 mg base)/3 mL nebulizat ion soln 2024 025 [facility], [address] [facility], [place], [address], 02/01/2025 12:20:58 prednison e 5 mg tablet 2024 025 [facility], [address] [facility], [place], [address], 02/01/2025 10:52:54 lorazepam 1 mg tablet 2024 025 [facility], [address] , [place], [address], 12/03/2024 14:16:48 pantopraz ole 40 mg tablet,de layed release 2024 025 [facility], [address] , [place], [address], 09/27/2024 11:49:11 Patient TargetsNo targets recorded. Patient Instructions Encounter Date Encounter Id Patient Instructions Last Modified By Organization Details Last Modified Time 09/27/2024 [id number] controlled substance agreement* [email or web address] Not available 09/27/2024 11:49:09 02/01/2025 [id number] learning about healthy weight [email or web address] Not available 02/01/2025 18:33:18 Reason for Referral None Reported. Results Created Date Observation Date Name Description Value Unit Range Abnormal Flag Note LastModifiedBy Organization Detail LastModifiedTime 09/28/1910/04/2024 COMPL IANCE DRUG CHARISSA SIS, UR summary report (summary) FINAL ===== ===== ===== ===== ===== ===== ===== ===== ===== ===== ===== ===== ===== === TOXAS SURE COMP DRUG CHARISSA SIS,U R ===== ===== ===== ===== ===== ===== ===== ===== ===== ===== ===== ===== ===== === Test Resul t Flag Units Drug Prese nt Loraz epam 1183 ng/mg creat Sourc e of loraz epam is a sched uled presc ripti on medic ation . Ephed rine/ Pseud oephe drine PRESE NT Pheny lprop anola mine PRESE NT Sourc e of ephed rine/ pseud oephe drine is most commo nly pseud oephe drine in over- the-c ounte r or presc ripti on cold and aller gy medic ation s. Pheny lprop anola mine is an expec mginon metab olite of ephed rine/ pseud oephe drine . Trazo done PRESE NT 1,3 chlor ophen yl piper azine PRESE NT 1,3-c hloro pheny l piper azine is an expec mignon metab olite of trazo done. Aceta minop hen PRESE NT Salic ylate PRESE NT Ibupr ofen PRESE NT Guaif enesi n PRESE NT Guaif enesi n may be admin ister ed as an over- the-c ounte r or presc ripti on drug; it may also be prese nt as a break down produ ct of metho carba mol. ===== ===== ===== ===== ===== ===== ===== ===== ===== ===== ===== ===== ===== === Test Resul t Flag Units Ref Range Creat inine 41 mg/dL >=20 ===== ===== ===== ===== ===== ===== ===== ===== ===== ===== ===== ===== ===== === Decla red Medic ation s: Medic ation list was not provi ded. ===== ===== ===== ===== ===== ===== ===== ===== ===== ===== ===== ===== ===== === For clini mirella consu ltati on, pleas e call . ===== ===== ===== ===== ===== ===== ===== ===== ===== ===== ===== ===== ===== === Not Available [facility] [address] [facility] [place], [address], 10/04/2024 14:08:41 09/28/19 25 10/04/2024 COMPL IANCE DRUG CHARISSA SIS, UR pdf . Not Available [facility]) [address] [place], [address], 10/04/2024 14:08:41 03/08/20 25 03/09/2025 TSH+F REE T4 TSH 3.680 uIU/m L 0.450- 4.500 normal Not Available [facility]) [address] [facility], [place], [address], 03/09/2025 08:10:54 03/08/20 25 03/09/2025 TSH+F REE T4 T4,free(dire ct) 0.89 NG/dL 0.82-1 .77 normal Not Available [facility] [address] [place], [address], 03/09/2025 08:10:54 03/08/20 25 03/09/2025 CBC WITH DIFFE RENTI AL/PL ATELE T WBC 8.4 x10e3 /uL 3.4-10 .8 normal Not Available [facility]) [address] [place], [address], 03/09/2025 08:10:54 03/08/20 25 03/09/2025 CBC WITH DIFFE RENTI AL/PL ATELE T RBC 3.97 x10e6 /uL 4.14-5 .80 below low normal Not Available [facility] [address] [place], [address], 03/09/2025 08:10:54 03/08/20 25 03/09/2025 CBC WITH DIFFE RENTI AL/PL ATELE T hemoglobin 11.1 g/dL 13.0-1 7.7 below low normal Not Available [facility]) [address] [place], [address], 03/09/2025 08:10:54 03/08/20 25 03/09/2025 CBC WITH DIFFE RENTI AL/PL ATELE T hematocrit 35.3 % 37.5-5 1.0 below low normal Not Available [facility]) [address] [place], [address], 03/09/2025 08:10:54 03/08/2003/09/2025 CBC WITH DIFFE RENTI AL/PL ATELE T MCV 89 fL 79-97 normal Not Available [facility]) [address] [place], [address], 03/09/2025 08:10:54 03/08/20 25 03/09/2025 CBC WITH DIFFE RENTI AL/PL ATELE T MCH 28.0 pg 26.6-3 3.0 normal Not Available [facility]) [address] [place], [address], 03/09/2025 08:10:54 03/08/20 25 03/09/2025 CBC WITH DIFFE RENTI AL/PL ATELE T MCHC 31.4 g/dL 31.5-3 5.7 below low normal Not Available [facility]) [address] [place], [address], 03/09/2025 08:10:54 03/08/20 25 03/09/2025 CBC WITH DIFFE RENTI AL/PL ATELE T RDW 14.4 % 11.6-1 5.4 Not Available [facility]) [address] [place], [address], 03/09/2025 08:10:54 03/08/20 25 03/09/2025 CBC WITH DIFFE RENTI AL/PL ATELE T platelets 238 x10e3 /uL 150-45 0 normal Not Available [facility] [address] [place], [address], 03/09/2025 08:10:54 03/08/20 25 03/09/2025 CBC WITH DIFFE RENTI AL/PL ATELE T neutrophils 68 % not estab. normal Not Available [facility] [address] [place], [address], 03/09/2025 08:10:54 03/08/20 25 03/09/2025 CBC WITH DIFFE RENTI AL/PL ATELE T lymphs 18 % not estab. normal Not Available [facility]) [address] [place], [address], 03/09/2025 08:10:54 03/08/20 25 03/09/2025 CBC WITH DIFFE RENTI AL/PL ATELE T monocytes 9 % not estab. normal Not Available [facility]) [address] [place], [address], 03/09/2025 08:10:54 03/08/20 25 03/09/2025 CBC WITH DIFFE RENTI AL/PL ATELE T eos 3 % not estab. normal Not Available [facility]) [address] [place], [address], 03/09/2025 08:10:54 03/08/20 25 03/09/2025 CBC WITH DIFFE RENTI AL/PL ATELE T basos 1 % not estab. normal Not Available [facility] [address] [place], [address], 03/09/2025 08:10:54 03/08/20 25 03/09/2025 CBC WITH DIFFE RENTI AL/PL ATELE T immature cells ASSISTANT ENGINEER Not Available [facility]) [address] [facility] [place], [address], 03/09/2025 08:10:54 03/08/20 25 03/09/2025 CBC WITH DIFFE RENTI AL/PL ATELE T neutrophils (absolute) 5.9 x10e3 /uL 1.4-7. 0 normal Not Available [facility] [address] [facility], [place], [address], 03/09/2025 08:10:54 03/08/20 25 03/09/2025 CBC WITH DIFFE RENTI AL/PL ATELE T lymphs (absolute) 1.5 x10e3 /uL 0.7-3. 1 normal Not Available [facility] [address] [facility], [place], [address], 03/09/2025 08:10:54 03/08/20 25 03/09/2025 CBC WITH DIFFE RENTI AL/PL ATELE T monocytes(ab solute) 0.8 x10e3 /uL 0.1-0. 9 normal Not Available [facility] [address] [place], [address], 03/09/2025 08:10:54 03/08/20 25 03/09/2025 CBC WITH DIFFE RENTI AL/PL ATELE T eos (absolute) 0.2 x10e3 /uL 0.0-0. 4 normal Not Available [facility] [address] [facility], [place], [address], 03/09/2025 08:10:54 03/08/20 25 03/09/2025 CBC WITH DIFFE RENTI AL/PL ATELE T baso (absolute) 0.1 x10e3 /uL 0.0-0. 2 normal Not Available [facility] [address] [place], [address], 03/09/2025 08:10:54 03/08/20 25 03/09/2025 CBC WITH DIFFE RENTI AL/PL ATELE T immature granulocytes 1 % not estab. Not Available [facility] [address] [facility], [place], [address], 03/09/2025 08:10:54 03/08/20 25 03/09/2025 CBC WITH DIFFE RENTI AL/PL ATELE T immature grans (abs) 0.1 x10e3 /uL 0.0-0. 1 Not Available [facility] [address] [facility], [place], [address], 03/09/2025 08:10:54 03/08/20 25 03/09/2025 CBC WITH DIFFE RENTI AL/PL ATELE T NRBC ASSISTANT ENGINEER Not Available [facility] [address] [facility], [place], [address], 03/09/2025 08:10:54 03/08/20 25 03/09/2025 CBC WITH DIFFE RENTI AL/PL ATELE T hematology comments: ASSISTANT ENGINEER Not Available [facility] [address] [facility], [place], [address], 03/09/2025 08:10:54 03/08/20 25 03/09/2025 COMP. METAB OLIC PANEL (14) glucose 84 mg/dL 70-99 normal Not Available [facility] [address] [place], [address], 03/09/2025 08:10:55 03/08/20 25 03/09/2025 COMP. METAB OLIC PANEL (14) BUN 12 mg/dL 8-27 normal Not Available [facility] [address] [place], [address], 03/09/2025 08:10:55 03/08/20 25 03/09/2025 COMP. METAB OLIC PANEL (14) creatinine 0.89 mg/dL 0.76-1 .27 normal Not Available [facility] [address] [facility], [place], [address], 03/09/2025 08:10:55 03/08/20 25 03/09/2025 COMP. METAB OLIC PANEL (14) eGFR 91 mL/mi n/1.7 3 >59 normal Not Available [facility] [address] [place], [address], 03/09/2025 08:10:55 03/08/20 25 03/09/2025 COMP. METAB OLIC PANEL (14) BUN/creatini ne ratio 13 10-24 normal Not Available [facility] [address] [place], [address], 03/09/2025 08:10:55 03/08/20 25 03/09/2025 COMP. METAB OLIC PANEL (14) sodium 139 mmol/ L 134-14 4 normal Not Available [facility] [address] [place], [address], 03/09/2025 08:10:55 03/08/20 25 03/09/2025 COMP. METAB OLIC PANEL (14) potassium 3.5 mmol/ L 3.5-5. 2 normal Not Available [facility] [address] [place], [address], 03/09/2025 08:10:55 03/08/20 25 03/09/2025 COMP. METAB OLIC PANEL (14) chloride 103 mmol/ L 96-106 normal Not Available [facility] [address] [place], [address], 03/09/2025 08:10:55 03/08/20 25 03/09/2025 COMP. METAB OLIC PANEL (14) carbon dioxide, total 21 mmol/ L 20-29 normal Not Available [facility] [address] [place], [address], 03/09/2025 08:10:55 03/08/20 25 03/09/2025 COMP. METAB OLIC PANEL (14) calcium 8.8 mg/dL 8.6-10 .2 normal Not Available [facility] [address] [place], [address], 03/09/2025 08:10:55 03/08/20 25 03/09/2025 COMP. METAB OLIC PANEL (14) protein, total 6.7 g/dL 6.0-8. 5 normal Not Available [facility] [address] [place], [address], 03/09/2025 08:10:55 03/08/20 25 03/09/2025 COMP. METAB OLIC PANEL (14) albumin 4.2 g/dL 3.8-4. 8 normal Not Available [facility] [address] [place], [address], 03/09/2025 08:10:55 03/08/20 25 03/09/2025 COMP. METAB OLIC PANEL (14) globulin, total 2.5 g/dL 1.5-4. 5 Not Available [facility] [address] [place], [address], 03/09/2025 08:10:55 03/08/20 25 03/09/2025 COMP. METAB OLIC PANEL (14) bilirubin, total 0.6 mg/dL 0.0-1. 2 normal Not Available [facility] [address] [place], [address], 03/09/2025 08:10:55 03/08/20 25 03/09/2025 COMP. METAB OLIC PANEL (14) alkaline phosphatase 61 IU/L 44-121 normal Not Available [facility] [address] [place], [address], 03/09/2025 08:10:55 03/08/20 25 03/09/2025 COMP. METAB OLIC PANEL (14) AST (SGOT) 18 IU/L 0-40 normal Not Available [facility] [address] [place], [address], 03/09/2025 08:10:55 03/08/20 25 03/09/2025 COMP. METAB OLIC PANEL (14) ALT (SGPT) 14 IU/L 0-44 normal Not Available [facility] [address] [place], [address], 03/09/2025 08:10:55 03/08/20 25 03/09/2025 LIPID PANEL cholesterol, total 144 mg/dL 100-19 9 normal Not Available [facility] [address] [place], [address], 03/09/2025 08:10:55 03/08/20 25 03/09/2025 LIPID PANEL triglyceride s 165 mg/dL 0-149 above high normal Not Available [facility]) [address] [place], [address], 03/09/2025 08:10:55 03/08/20 25 03/09/2025 LIPID PANEL HDL cholesterol 40 mg/dL >39 normal Not Available [facility] [address] [place], [address], 03/09/2025 08:10:55 03/08/20 25 03/09/2025 LIPID PANEL VLDL cholesterol mirella 28 mg/dL 5-40 Not Available [facility] [address] [place], [address], 03/09/2025 08:10:55 03/08/20 25 03/09/2025 LIPID PANEL LDL chol calc ([facility]) 76 mg/dL 0-99 Not Available [facility]) [address] [place], [address], 03/09/2025 08:10:55 03/08/2003/09/2025 LIPID PANEL LDL calc comment: ASSISTANT ENGINEER Not Available [facility] [address] [facility], [place], [address], 03/09/2025 08:10:55 03/08/20 25 03/09/2025 VITAM IN B12 AND FOLAT E vitamin B12 399 pg/mL 232-12 45 normal Not Available [facility]) [address] [facility], [place], [address], 03/09/2025 08:10:56 03/08/2003/09/2025 VITAM IN B12 AND FOLAT E folate (folic acid), serum 5.0 NG/mL >3.0 normal A serum folat e scar ntrat ion of less than 3.1 ng/mL is consi dered to repre sent clini mirella defic iency . Not Available [facility] ([facility]) [address] [facility], [place], [address], 03/09/2025 08:10:56 03/08/2003/09/2025 HEMOG LOBIN A1C hemoglobin A1C 5.7 % 4.8-5. 6 above high normal Predi abete s: 5.7 - 6.4 Diabe sami: >6.4 Glyce mathew contr ol for adult s with diabe sami: <7.0 Not Available [facility] ([facility]) [address] [facility], [place], [address], 03/09/2025 08:10:56 03/08/2003/09/2025 PROST ATE-S PECIF IC AG prostate specific Ag 5.7 NG/mL 0.0-4. 0 above high normal Isabelle ECLIA metho dolog y. Accor ding to the Ameri can Urolo gical Assoc iatio n, Serum PSA shoul d decre ase and remai n at undet ectab le level s after radic al prost atect ish. The AUA defin es bioch emica l recur rence as an initi al PSA value 0.2 ng/mL or great er follo wed by a subse quent confi rmato ry PSA value 0.2 ng/mL or great er. Value s obtai jason with diffe rent assay metho ds or kits canno t be used inter mckeon eably . Resul ts canno t be inter prete d as absol antwon evide nce of the prese nce or absen ce of jadyn restrepo se. Not Available [facility] ([facility]) [address] [facility], [place], [address], 03/09/2025 08:10:56 03/08/2003/09/2025 VITAM IN D, 25-HY DROXY vitamin D, 25-hydroxy 30.5 NG/mL 30.0-1 00.0 Vitam in D defic iency has been defin ed by the Insti tute of Medic ine and an Endoc rine Socie ty pract ice guide line as a level of serum 25-OH vitam in D less than 20 ng/mL (1,2) . The Endoc rine Socie ty went on to furth er defin e vitam in D insuf ficie ncy as a level betwe en 21 and 29 ng/mL (2). 1. IOM (Inst itute of Medic ine). 2009. Dieta ry refer ence intak es for calci um and D. Evelio amaya [place]: The Natio nal [facility] Press . 2. Myah rose [place], Romana laurent [place], Ambrose off-F errar i RODRIGES, et al. Evalu ation , treat ment, and preve ntion of vitam in D defic iency : an Endoc rine Socie ty clini mirella pract ice guide line. JCEM. 2010; 96(7) :1911 -30. Not Available [facility] ([facility]) [address] [facility], [place], [address], 03/09/2025 08:10:57 Result Notes None recorded. Problems Name Problem SNOMED Code Status Onset Date Resolution Date Notes Provider Name and Address Organization Details Recorded Time Generali zed anxiety disorder 18213073 Completed 201609/21/2016 Problem Code: F41.1; Problem Code Type: ICD-10; Maya Torres, T[employer] OPERATOR [address] [place], [address] , [employer] 3 11:40:35 Allergic rhinitis caused by pollen [id number] Completed 201610/08/2016 Problem Code: J30.1; Problem Code Type: ICD-10; Not Available [facility] 2 21:50:51 Pain in right knee Completed 201608/23/2016 Problem Code: M25.561; Problem Code Type: ICD-10; Not Available [facility] 2 21:50:53 Pain in left knee Completed 201608/23/2016 Problem Code: M25.562; Problem Code Type: ICD-10; Not Available [facility] 2 21:51:03 Knee pain Completed 201608/23/2016 Problem Code: 719.46; Problem Code Type: ICD-9; JUAN ANTONIO mortensen, [employer] 2 11:16:05 Acute sinusiti s [id number] Completed 201610/05/2016 Problem Code: J01.90; Problem Code Type: ICD-10; JUAN ANTONIO mortensen, [employer] 2 11:16:05 Pain in right knee Completed 201611/04/2016 Problem Code: M25.561; Problem Code Type: ICD-10; Not Available [facility] 2 21:50:53 Prepatel lar bursitis of right knee [id number] Completed 201612/20/2016 Not Available [facility] 2 21:50:54 Knee pain Completed 201611/04/2016 Problem Code: 719.46; Problem Code Type: ICD-9; JUAN ANTONIO mortensen [employer] 2 11:16:05 Prepatel lar bursitis [id number] Completed 201612/20/2016 Problem Code: 726.65; Problem Code Type: ICD-9; Not Available [facility] 2 21:51:17 Pain in right knee Completed 201612/13/2016 Problem Code: M25.561; Problem Code Type: ICD-10; Not Available [facility] 2 21:51:02 Knee pain Completed 201612/13/2016 Problem Code: 719.46; Problem Code Type: ICD-9; JUAN ANTONIO mortensen [employer] 2 11:16:05 Allergic rhinitis 49994820 Completed 201603/11/2017 Problem Code: J30.9; Problem Code Type: ICD-10; Not Available [facility] 2 21:50:51 Allergic rhinitis 35182588 Completed 201605/06/2017 Problem Code: J30.9; Problem Code Type: ICD-10; Not Available [facility] 2 21:50:51 Allergic rhinitis caused by pollen 78121591 Completed 201608/02/2017 Problem Code: J30.1; Problem Code Type: ICD-10; Not Available [facility] 2 21:50:51 Hyperten sive disorder 42702022 Completed 201708/30/2017 Problem Code: I10; Problem Code Type: ICD-10; Not Available [facility] 2 21:50:50 Acute sinusiti s 82341548 Completed 201708/12/2017 Problem Code: J01.90; Problem Code Type: ICD-10; JUAN ANTONIO mortensen [employer] 2 11:16:05 Benign essentia l hyperten marquis 3161162 Completed 201701/17/2018 Problem Code: 401.1; Problem Code Type: ICD-9; Not Available [facility] 2 21:51:06 Tinea pedis 8123426 Completed 201711/25/2017 Problem Code: B35.3; Problem Code Type: ICD-10; Not Available [facility] 2 21:50:48 Neck pain 76486260 Completed 201711/25/2017 Not Available [facility] 21:50:53 Hyperest hesia 69691630 Completed 201711/25/2017 Problem Code: R20.3; Problem Code Type: ICD-10; Not Available [facility] 2 21:50:55 Skin sensatio n disturba nce 92341102 Completed 201711/25/2017 Problem Code: 782.0; Problem Code Type: ICD-9; Not Available [facility] 2 21:51:11 Acquired deformit y of toe 89153375 Completed 201701/09/2021 Problem Code: 735.8; Problem Code Type: ICD-9; Not Available [facility] 21:51:11 Onychomy cosis due to dermatop hyte 313021737 Completed 201711/25/2017 Problem Code: 110.1; Problem Code Type: ICD-9; Not Available [facility] 2 21:51:15 Acute sinusiti s 91591362 Completed 201701/31/2018 Problem Code: J01.90; Problem Code Type: ICD-10; JUAN ANTONIO mortensen, [place] [employer] 11:16:05 Non-neop lastic nevus 616213605 Completed 201706/28/2019 Not Available [facility] 21:50:58 Large prostate 610197836 Completed 201703/10/2018 Problem Code: N40.0; Problem Code Type: ICD-10; Not Available [facility] 2 21:51:05 Generali zed atherosc lerosis 41581166 Completed 201701/09/2021 Problem Code: 440.9; Problem Code Type: ICD-9; Not Available [facility] 2 21:51:08 Benign prostati c hyperpla mel 089857765 Completed 201701/09/2021 Problem Code: 600.00; Problem Code Type: ICD-9; Not Available [facility] 2 21:51:09 Lacerati on of finger with foreign body 519019974 Completed 201704/25/2018 Problem Code: S61.222A ; Problem Code Type: ICD-10; Not Available [facility] 21:50:56 Pre-surg marjorie evaluati on Completed 201704/25/2018 Not Available [facility] 21:50:58 Open wound of finger with complica tion 86855780 Completed 201704/25/2018 Problem Code: 883.1; Problem Code Type: ICD-9; Not Available [facility] 21:51:10 Abnormal weight gain 479448880 Completed 201705/09/2018 Problem Code: R63.5; Problem Code Type: ICD-10; Not Available [facility] 21:50:55 Mixed hyperlip idemia 461125149 Completed 201701/09/2021 Problem Code: 272.2; Problem Code Type: ICD-9; Tamar mortensen, [employer] 5 09:56:03 Anemia of chronic disease 701113631 Completed 201706/28/2019 Problem Code: D63.8; Problem Code Type: ICD-10; Not Available [facility] 21:50:49 Prostate specific antigen above referenc e range 675189231 Completed 201705/12/2018 Problem Code: R97.20; Problem Code Type: ICD-10; Not Available [facility] 21:50:56 Iron deficien cy anemia secondar y to inadequa te dietary iron intake [id number] Completed 201705/27/2018 Problem Code: D50.8; Problem Code Type: ICD-10; Not Available [facility] 21:50:49 Ulcerati ve pancolit is 785952581 Completed 201706/28/2019 Problem Code: K51.00; Problem Code Type: ICD-10; Not Available [facility] 21:50:52 Abscess of limb 079286555 Completed 201705/27/2018 Problem Code: L02.415; Problem Code Type: ICD-10; Not Available [facility] 2 21:51:00 Abscess of leg, except foot 47909163 Completed 201705/27/2018 Not Available [facility] 2 21:51:10 Ulcerati ve colitis 63711015 Completed 201701/09/2021 Problem Code: 556.6; Problem Code Type: ICD-9; Not Available [facility] 2 21:51:16 Anemia due to chronic blood loss 146052738 Active 2017 Problem Code: D50.0; Problem Code Type: ICD-10; Not Available [facility] 21:50:49 Ulcerati ve pancolit is 243070151 Completed 201706/28/2019 Problem Code: K51.00; Problem Code Type: ICD-10; Not Available [facility] 2 21:50:52 Ulcerati ve colitis 54272969 Completed 201701/09/2021 Problem Code: 556.6; Problem Code Type: ICD-9; Not Available [facility] 2 21:51:17 Acute posthemo rrhagic anemia 333064365 Completed 201706/12/2018 Problem Code: D62; Problem Code Type: ICD-10; Not Available [facility] 2 21:50:49 Acute posthemo rrhagic anemia 577516522 Completed 201706/17/2018 Problem Code: D62; Problem Code Type: ICD-10; Not Available [facility] 2 21:50:49 Acute posthemo rrhagic anemia 079318290 Completed 201706/24/2018 Problem Code: D62; Problem Code Type: ICD-10; Not Available [facility] 2 21:50:49 Pain in right knee Completed 201705/01/2018 Problem Code: M25.561; Problem Code Type: ICD-10; Not Available [facility] 2 21:50:53 Pain in left knee Completed 201705/01/2018 Problem Code: M25.562; Problem Code Type: ICD-10; Not Available [facility] 2 21:50:54 Knee pain Completed 201705/04/2022 Problem Code: 719.46; Problem Code Type: ICD-9; JUAN ANTONIO BROWNNER festus, [employer] 2 11:16:05 Acute sinusiti s 88061998 Completed 201707/03/2018 Problem Code: J01.90; Problem Code Type: ICD-10; JUAN ANTONIO BROWNNER festus, [employer] 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 Active 2018 Problem Code: M17.0; Problem Code Type: ICD-10; Not Available [facility] 2 21:51:01 Allergic sensitiz ation 320127022 Completed 201805/04/2022 JUAN ANTONIO mortensen, [employer] 2 11:16:05 Mixed hyperlip idemia 678486709 Active 2018 Problem Code: E78.2; Problem Code Type: ICD-10; Tamar Durham festus, [employer] 5 09:56:03 Large prostate 001653693 Active 2018 Problem Code: N40.0; Problem Code Type: ICD-10; Not Available [facility] 2 21:50:54 Dysthymi a 74970414 Active 2018 Problem Code: R53.81; Problem Code Type: ICD-10; Not Available [facility] 2 21:51:11 Primary insomnia 0715711 Active 2018 Problem Code: F51.01; Problem Code Type: ICD-10; Not Available [facility] 2 21:50:50 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 23295294 Active 2018 Problem Code: M50.00; Problem Code Type: ICD-10; Not Available [facility] 21:50:54 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 55849502 Active 2018 Problem Code: G90.09; Problem Code Type: ICD-10; Not Available [facility] 21:50:50 Pain in left knee Active 2018 Problem Code: M25.562; Problem Code Type: ICD-10; Not Available [facility] 2 21:50:53 Post-mahesh gical wound care Completed 201805/04/2022 Problem Code: Z48.02; Problem Code Type: ICD-10; JUAN ANTOINO mortensen [employer] 11:16:05 Body mass index 30+ - obesity 388021450 Active 2018 Problem Code: Z68.35; Problem Code Type: ICD-10; Not Available [facility] 21:50:59 Diabetes mellitus screenin g Completed 201805/04/2022 Problem Code: Z13.1; Problem Code Type: ICD-10; JUAN ANTONIO mortensen [employer]. 11:16:05 Body mass index 30+ - obesity 033978349 Completed 201807/17/2020 Problem Code: Z68.35; Problem Code Type: ICD-10; Not Available [facility] 2 21:51:01 [facility] 37597641 Completed 201812/14/2019 Problem Code: J98.11; Problem Code Type: ICD-10; Not Available [facility] 21:50:52 General examinat ion of patient Completed 201806/28/2019 JUAN ANTONIO mortensen [employer] 2 11:16:05 Body mass index 30+ - obesity 935425938 Completed 201807/17/2020 Problem Code: Z68.35; Problem Code Type: ICD-10; Not Available [facility] 21:51:01 Body mass index 30+ - obesity 848516434 Completed 201807/17/2020 Problem Code: Z68.35; Problem Code Type: ICD-10; Not Available [facility] 2 21:51:00 Body mass index 30+ - obesity 212937185 Completed 201907/17/2020 Problem Code: Z68.36; Problem Code Type: ICD-10; Not Available [facility] 2 21:51:13 Disorder of skin and/or subcutan eous tissue 88250493 Completed 201905/04/2022 JUAN ANTONIO mortensen, [employer]. 11:16:05 Body mass index 30+ - obesity 260424124 Completed 201907/17/2020 Problem Code: Z68.36; Problem Code Type: ICD-10; Not Available [facility] 2 21:51:00 General examinat ion of patient Completed 201905/04/2022 JUAN ANTONIO ARELLANO [employer], [employer] 2 11:16:05 General examinat ion of patient Completed 202009/15/2020 JUAN ANTONIO EILEEN [employer], [employer]. 11:16:05 Body mass index 30+ - obesity 594497039 Completed 202009/15/2020 Problem Code: Z68.36; Problem Code Type: ICD-10; Not Available [facility] 2 21:51:14 Cough 07341575 Completed 202004/02/2021 Problem Code: R05; Problem Code Type: ICD-10; Not Available [facility] 21:50:54 Acute sinusiti s 32039084 Completed 202005/04/2022 Problem Code: J01; Problem Code Type: ICD-10; JUAN ANTONIO mortensen, [employer] 2 11:16:05 Eruption 070466763 Completed 202005/04/2022 Problem Code: R21; Problem Code Type: ICD-10; JUAN ANTONIO mortensen, [employer] 2 11:16:05 Contusio n of anterior abdomina l wall 730961283 Completed 202005/04/2022 JUAN ANTONIO mortensen, [employer] 2 11:16:05 Malignan t neoplasm of skin 971461906 Completed 202004/02/2021 Problem Code: C44.90; Problem Code Type: ICD-10; Not Available [facility] 2 21:50:49 Allergic rhinitis 46703541 Active 2020 Problem Code: J30.9; Problem Code Type: ICD-10; Not Available [facility] 21:50:52 Abrasion of skin of palm of hand 759999605 Completed 202109/24/2021 Not Available [facility] 21:50:56 Current drug user 540784533 Active 2021 Problem Code: Z79.899; Problem Code Type: ICD-10; Not Available [facility] 2 21:51:02 Acute frontal sinusiti s 93383269 Completed 202105/04/2022 Problem Code: J01.1; Problem Code Type: ICD-10; JUAN ANTONIO mortensen, [employer] 2 11:16:06 Generali zed anxiety disorder 61046545 Active 2022 Problem Code: F41.1; Problem Code Type: ICD-10; Maya Torres APRN [address] [place] [address], [id number] , [employer] 3 11:40:35 Problem Notes None recorded. Procedures Surgical History Date Name Laterality Status Provider Name and Address Organization Details Recorded Time 7 hernia repair completed Not Available [facility] 03/23/2022 22:56:15 Imaging Results None recorded. [...] TAKE 1 CAPSULE BY MOUTH ONCE DAILY 05/04 completed Not Available Not Available [...] Heart rate Oxygen saturation Systolic And Diastolic Systolic And Diastolic Systolic And Diastolic Provider Name and Address Organization Details Last Updated DateTime 5 175.26 cm 37.7 kg/m2 346106. 05 g 87 /min 94 % 192/72 mm[Hg] 158/78 mm[Hg] 132/76 mm[Hg] Tamar Durham [facility] [employer] 5 11:32:00 Date Recorded Body height Body mass index (BMI) Body weight Heart rate Oxygen saturation Systolic And Diastolic Provider Name and Address Organization Details Last Updated DateTime 5 175.26 cm 38.3 kg/m2 746503. 82 g 96 /min 92 % 130/80 mm[Hg] Tamar Durham [employer] 5 13:49:03 Date Recorded Body height Body mass index (BMI) Body weight Heart rate Oxygen saturation Systolic And Diastolic Provider Name and Address Organization Details Last Updated DateTime 5 175.26 cm 36.9 kg/m2 649929. 09 g 101 /min 92 % 130/79 mm[Hg] Tamar Durham [employer] 5 10:51:45 Date Recorded Body height Body mass index (BMI) Body weight Body temperature Heart rate Oxygen saturation Systolic And Diastolic Provider Name and Address Organization Details Last Updated DateTime 5 175.26 cm 36.9 kg/m2 352815. 09 g 97.3 [degF] 71 /min 90 % 138/81 mm[Hg] Tamar [employer] 5 08:44:21 Date Recorded Body height Body mass index (BMI) Body weight Heart rate Oxygen saturation Systolic And Diastolic Provider Name and Address Organization Details Last Updated DateTime 5 175.26 cm 36.8 kg/m2 318006. 5 g 83 /min 91 % 134/85 mm[Hg] Tamar [employer] 5 10:47:28 Social History Question Answer Notes LastModified by Organizat ion Details LastModified Time Tobacco Smoking Status Former Smoker JUAN ANTONIO mortensen [employer] 05/04/2022 11:17:53 Do You Have An Advance Directive? No [email or web address] Information n ot available 06/04/2022 Are You Blind Or Do You Have Difficulty Seeing? No [email or web address] Information n ot available 05/04/2022 What Is Your Level Of Caffeine Consumption? Moderate Information not available 11/30/2022 Are You A Caregiver? No Information not available 06/04/2022 In The 14 [...] Do You Have Serious Difficulty Hearing? No [email or web address] Information not available 05/04/2022 What Type Of Diet Are You Following? REGULAR [email or web address] Information n ot available 06/04/2022 Have There Been Any Changes To Your Family Or Social Situation? No [email or web address] Information no t available 06/04/2022 When Did You Quit Smoking? 6-10yearssinc [email or web address] e Information not available 06/01/2024 Do You Have A Medical Power Of Bed Bug Exterminator? No [email or web address] Information not available 06/04/2022 What Was The Date Of Your Most Recent Tobacco Screening? 05/09/2025 Information not available 05/09/2025 What Is Your Current Pack Years? 20-29packyear s Information not available 05/04/2022 What Is Your Relationship Status? [email or web address] Information not available 05/04/2022 Do You Use Your Seat Belt Or Car Seat Routinely? Yes [email or web address] Information not available 06/04/2022 Do You Have Smoke And Carbon Monoxide Detectors In Your Home? Yes [email or web address] Information not available 06/04/2022 How Much Tobacco Do You Smoke? 1 PPD Information not available 06/01/2024 Do You Use Sunscreen Routinely? No [email or web address] Information not available 06/04/2022 Have You Recently Traveled Abroad? No [email or web address] Information not available 06/04/2022 Do You Have Difficulty Walking Or Climbing Stairs? No Information not available 05/04/2022 Are You Currently In School? No [email or web address] Information not available 06/04/2022 Do You Have Any Dietary Restrictions? No [email or web address] Information not available 06/04/2022 Sex: Male Functional Status Question Answer Note LastModified by Organizat ion Details LastModified Time Do you use any illicit or recreational drugs? No Information not available 11/30/2022 What is your level of alcohol consumption? None [email or web address] Information not available 05/04/2022 Are you currently employed? No [email or web address] Information not available 06/04/2022 Do you have transportation difficulties? No [email or web address] Information not available 05/04/2022 Are you able to walk independently without assistance or assistive devices? YESWOREST [email or web address] Information not available 05/04/2022 Do you have difficulty doing errands alone? No [email or web address] Information not available 05/04/2022 Are you able to care for yourself independently? Yes [email or web address] Information not available 05/04/2022 Do you have difficulty dressing, bathing, grooming, or toileting? No [email or web address] Information not available 05/04/2022 What is your exercise level? None [email or web address] Information not available 06/04/2022 Mental Status Question Answer Note LastModified by Organization D etails LastModified Time Do you have difficulty concentrating, remembering or making decisions? No [email or web address] Information no t available 05/04/2022 Family History Relationship Description Onset Age of this Age Resolved Age Notes LastModified by Organization Details LastModified Time Unspecified Relation Family history of Hypertension [email or web address] Not available 11:16:26 Unspecified Relation Family history of malignant neoplasm [email or web address] Not available 05/04 11:16:34 Unspecified Relation Family history of polyp of colon [email or web address] Not available 05/04 11:16:39 Medical History Condition Response Allergies (Food, seasonal, environmental ) Y GI Problems Y Hypertension Y Immunizations Vaccine Type Date Status Note Provider Name and Address Organization Details Recorded Time zoster recombinant 024 cancelled patient objection Maya Torres APRN [address] [place], [id number], [employer] 10/03/2023 13:15:21 pneumococcal polysaccharide PPV23 019 completed Tamar mortensen [employer] 05/09/2025 10:23:09 Pneumococcal conjugate PCV 13 018 completed Tamar Durham null, [employer] 05/09/2025 10:23:09 COVID-19, mRNA, LNP-S, PF, 100 mcg/0.5mL dose or 50 mcg/0.25mL dose 021 completed Tamar Durham null, [employer] 05/09/2025 10:23:09 COVID-19, mRNA, LNP-S, PF, 100 mcg/0.5mL dose or 50 mcg/0.25mL dose 021 completed Tamar Durham null, [employer] 05/09/2025 10:23:09 COVID-19, mRNA, LNP-S, PF, 100 mcg/0.5mL dose or 50 mcg/0.25mL dose 021 completed Tamar Durham null, [employer] 05/09/2025 10:23:09 Influenza, high-dose, trivalent, PF 019 completed JUAN ANTONIO ARELLANO null, [employer] 07/02/2022 11:24:10 Influenza, split virus, trivalent, PF 017 completed JUAN ANTONIO ARELLANO null, [employer] 07/02/2022 11:24:10 Influenza, MDCK, quadrivalent, PF 016 completed JUAN ANTONIO ARELLANO null, [employer] 07/02/2022 11:24:10 Tdap 016 completed JUAN ANTONIO ARELLANO null, [employer] 07/02/2022 11:24:10 Influenza, high-dose, trivalent, PF 018 completed JUAN ANTONIO ARELLANO null, [employer] 07/02/2022 11:24:10 COVID-19, mRNA, LNP-S, bivalent, PF, 50 mcg/0.5 mL or 25mcg/0.25 mL dose 022 completed JUAN ANTONIO mortensen, [employer] 07/02/2022 11:24:10 Influenza, high-dose, quadrivalent, PF 022 completed JUAN ANTONIO mortensen, [employer] 07/02/2022 11:24:10 Influenza, high-dose, quadrivalent, PF 021 completed JUAN ANTONIO mortensen [employer] 07/02/2022 11:24:10 RSV, recombinant, protein subunit RSVpreF, adjuvant reconstituted, 0.5 mL, PF 023 completed Not Available [facility] 05/09/2025 10:21:48 Influenza, high-dose, quadrivalent, PF 023 completed Not Available [facility] 05/09/2025 10:21:48 Influenza, high-dose, trivalent, PF 024 completed Not Available [facility] 05/09/2025 10:21:48 Pneumococcal conjugate PCV20, polysaccharide [id number] conjugate, adjuvant, PF 025 completed Not Available [facility] 05/09/2025 10:21:48 Influenza, high-dose, trivalent, PF 025 completed Not Available [facility] 05/09/2025 10:21:48 Influenza, high-dose, quadrivalent, PF 020 completed Tamar mortensen, [employer] 05/09/2025 10:23:09 Past Encounters Encounter ID Performer Location Encounter Start Date Encounter Closed Date Diagnosis/Indication Diagnosis SNOMED-CT Code Diagnosis ICD10 Code Diagnosis IMO Codes Diagnosis Note [id number] Maya Torres [address] [address] 05/04/2022 11:06:44 05/04/2022 11:36:23 Dysthymia 73981787 R53.81 Idiopathic peripheral autonomic neuropathy 98844050 G90.09 [id number] Maya Torres [address] [address] 06/04/2022 10:50:55 06/04/2022 11:05:53 Idiopathic peripheral autonomic neuropathy 84215081 G90.09 Anxiety 16409742 F41.9 Allergic rhinitis 078121 04 J30.9 Body mass index 30+ - obesity 938620434 Z68.38 Acute sinusitis 67048123 J01.90 Dysthymia 90671195 R53.8 1 [id number] [place] [address] 07/02/2022 11:05:52 07/02/2022 11:41:18 Idiopathic peripheral autonomic neuropathy 45032158 G90.09 Mixed hyperlipidemia 267 674338 E78.2 Anxiety 96949069 F41.9 Body mass index 30+ - obesity 075851304 Z68.38 [id number] [place] [address] 07/15/2022 10:31:53 07/15/2022 13:11:18 Acute upper respiratory infection 13073886 J06.9 [id number] [place] [address] 0 08/02/2022 11:24:44 08/02/2022 11:46:36 Anxiety 17877644 F41.9 Allergic rhinitis 812009 04 J30.9 Idiopathic peripheral autonomic neuropathy 76865903 G90.09 Body mass index 30+ - obesity 935314611 Z68.38 [id number] [place] [address] 09/02/2022 11:07:10 09/02/2022 11:51:01 Dysthymia 10082175 R53.81 Anxiety 07838647 F41.9 Idiopathic peripheral autonomic neuropathy 65523774 G90.09 Body mass index 30+ - obesity 100284464 Z68.38 [id number] Maya Torres [place] [address] 0 10/01/2022 11:06:15 10/01/2022 11:37:36 Idiopathic peripheral autonomic neuropathy 70002813 G90.09 Anxiety 44295940 F41.9 Acute sinusitis 87363442 J01.90 [id number] [place] [address] 11/01/2022 10:18:50 11/01/2022 10:51:54 Cough 15910649 R05.9 Wheezing 21374487 R06.2 Idiopathic peripheral autonomic neuropathy 12573593 G90.09 Anxiety 02639877 F41.9 Body mass index 30+ - obesity 399267163 Z68.38 [id number] Maya Torres [address] 0 11/30/2022 10:11:55 11/30/2022 10:33:30 Gastroesophageal reflux disease without esophagitis 611285720 K21.9 Anxiety 98802513 F41.9 Idiopathic peripheral autonomic neuropathy 79779909 G90.09 Allergic rhinitis 697489 04 J30.9 [id number] Maya Torres [place] [address] 0 12/31/2022 10:19:21 12/31/2022 11:25:07 Fatigue 26348402 R53.83 Mixed hyperlipidemia 267 621082 E78.2 Nocturia 331318128 R35.1 Long-term drug therapy 203013449 Z79.899 Idiopathic peripheral autonomic neuropathy 23875008 G90.09 Anxiety 69894567 F41.9 Body mass index 30+ - obesity 475391118 Z68.38 [id number] [place] [address] 01/31/2023 10:35:26 01/31/2023 11:13:41 Idiopathic peripheral autonomic neuropathy 42712302 G90.09 Anxiety 11656484 F41.9 [id number] [place] [address] 03/03/2023 10:21:47 03/03/2023 10:54:56 Idiopathic peripheral autonomic neuropathy 36887332 G90.09 Anxiety 04235698 F41.9 Body mass index 30+ - obesity 898802886 Z68.38 [id number] [place] [address] 0 04/04/2023 11:25:04 04/04/2023 11:54:55 Allergic rhinitis 11771560 J30.9 Anxiety 67411623 F41.9 Idiopathic peripheral autonomic neuropathy 28654040 G90.09 Body mass index 30+ - obesity 306516745 Z68.38 [id number] [place] [address] 0 06/03/2023 10:34:54 06/03/2023 11:28:21 Dyspnea on exertion 14146484 R06.09 Essential hypertension 31285014 I10 Mixed hyperlipidemia 267 303226 E78.2 Idiopathic peripheral autonomic neuropathy 57755271 G90.09 Generalize d anxiety disorder 42014455 F41.1 Body mass index 30+ - obesity 811066336 Z68.38 [id number] [place] [address] 0 08/04/2023 10:38:40 08/04/2023 11:02:33 Dyspnea on exertion 25019045 R06.09 Anxiety 73462942 F41.9 Idiopathic peripheral autonomic neuropathy 33375507 G90.09 Body mass index 30+ - obesity 005971607 Z68.38 [id number] [place] [address] 0 10/03/2023 10:34:44 10/03/2023 11:27:11 Long-term drug therapy 435063179 Z79.899 Body mass index 30+ - obesity 897731439 Z68.38 Adult [facility] th examination 699541232 Z00.[address] vaccination declined 9632753931 102 Z28.20 Anxiety 06043273 F41.9 Idiopathic peripheral autonomic neuropathy 91694992 G90.09 Large prostate 654145551 N40.0 Mixed hyperlipidemia 267 684926 E78.2 Fatigue 12343186 R53.83 Chronic cough 10423130 R 05.3 [id number] Maya Torres, [employer] [place] [address] 12/02/2023 10:24:11 12/02/2023 11:04:47 Pain of left hip joint 1317723836 30946 M25.552 Anxiety 80178290 F41.9 Idiopathic peripheral autonomic neuropathy 14288420 G90.09 Body mass index 30+ - obesity 306462146 Z68.38 [id number] [place] [address] 01/31/2024 10:36:29 01/31/2024 11:31:01 Idiopathic peripheral autonomic neuropathy 69300374 G90.09 Anxiety 20399248 F41.9 Pain of le ft hip joint 2875414800 48866 M25.552 Body mass index 30+ - obesity 137263962 Z68.38 [id number] [place] [address] 04/03/2024 10:26:32 04/03/2024 10:52:47 Pain of left hip joint 9388001051 56524 M25.552 Idiopathic peripheral autonomic neuropathy 69854663 G90.09 Generalize d anxiety disorder 32682939 F41.1 Body mass index 30+ - obesity 861237592 Z68.38 [id number] [place] [address] 06/01/2024 13:40:03 06/01/2024 14:09:33 Idiopathic osteoarthritis 378347104 M17.0 Acute sinusitis 85813297 J01.90 Generalize d anxiety disorder 04005730 F41.1 Idiopathic peripheral autonomic neuropathy 46030045 G90.09 Body mass index 30+ - obesity 010217252 Z68.38 [id number] Maya Torres [place] [address] 07/31/2024 10:27:29 07/31/2024 13:01:30 Generalized anxiety disorder 95980504 F41.1 Pneumonia 020185781 J18. 9 Chronic ob structive pulmonary disease 97196231 J44.9 Abdominal pain 04005933 R10.9 Fatigue 16205203 R53.83 Hyperlipidemia 64112034 E78.5 Hyperglycemia 95892353 R 73.9 Vitamin D deficiency 347 60750 E55.9 Vitamin B deficiency 479 83203 E53.9 Nocturia 945236741 R35.1 Iron defic iency anemia 31104395 D50.9 Body mass index 30+ - obesity 492791443 Z68.38 [id number] [place] [address] 09/27/2024 11:09:36 09/27/2024 11:58:20 Long-term drug therapy 349284221 Z79.899 Gastroesop hageal reflux disease without esophagitis 922264990 K21.9 Generalize d anxiety disorder 77439229 F41.1 Body mass index 30+ - obesity 262579868 Z68.38 [id number] [place] [address] 12/03/2024 13:33:16 12/03/2024 14:18:36 Generalized anxiety disorder 56550001 F41.1 Idiopathic osteoarthritis 771734056 M17.0 Body mass index 30+ - obesity 623127542 Z68.38 626889 [id number] [place] [address] 02/01/2025 10:37:10 02/01/2025 11:13:22 Generalized anxiety disorder 75992497 F41.1 controlled substance agreement and drug screen UTD at this time. Body mass index 30+ - obesity 561565422 Z68.38 043965 Allergic rhinitis 533670 04 J30.9 Dysthymia 32029095 R53.8 1 Large prostate 431365409 N40.0 Chronic ob structive pulmonary disease 48347067 J44.9 Pain of mu ltiple joints 07676860 M25.50 974924 [id number] [place] [address] 03/08/2025 08:21:58 03/08/2025 10:43:55 Acute bacterial sinusitis 73462799 J01.90 B96.89 19784 Fatigue 03585879 R53.83 5046753 Mixed hyperlipidemia 267 590381 E78.2 92103 Hyperglycemia 88811964 R 73.9 68989 Nocturia 412561959 R35.1 32596 Vitamin D deficiency 347 20155 E55.9 92570 Cobalamin deficiency 190 739172 E53.8 81444 History an d physical examination, annual for health maintenance 93773295 Z00.00 2303821188 Body mass index 30+ - obesity 988634598 Z68.36 [id number] [place] [address] 05/09/2025 10:20:23 05/09/2025 11:27:11 Generalized anxiety disorder 59870737 F41.1 controlled substance agreement and drug screen UTD at this time. Essential hypertension 96503771 I10 Gastroesop hageal reflux disease without esophagitis 324113256 K21.9 Allergic rhinitis 903973 04 J30.9 Body mass index 30+ - obesity 090654777 Z68.36 614887 Health Concerns Section Related Observation LastModified by Organization Detai ls LastModified Time None Recorded Concern Status LastModified by Organization Details LastModified Time None Recorded Advance Directives Directive N: Payers Insurance Date Sequence Insurance Name Policy Number Policy Sutherland Covered Member ID Sutherland Member ID Guarantor Name 12/05/2024 [place] [employer] [facility] Stephane Mendieta [id number] Stephane Mendieta 05/06/2025 [place] [employer] [facility] Stephane Mendieta [id number] Stephane Mendieta 05/06/2025 2 [employer] SU[employer]LEMENTAL - [employer]URANCE (MEDICARE SUPPLEMENT) Stephane Mendieta [id number] Stephane Mendieta 05/06/2025 1 [place] Stephane Mendieta [id number] 4 Stephane Mendieta Notes Date Note Type Note Provider Name and Address Organization Details Recorded Time 09/27/2024 text/html 73 year old male presents for chronic disease fu. Denies acute concerns at this time. [facility] pulm gave him samples of trelegy but is unable to afford it monthly. Will give him samples today. States cough has improved. He recently got refill on lorazepam since he forgot to request febs refill. He is to let us know when he need his next refill. pt agrees Maya Torres APRN [address] [place], [id number], [employer], [employer] 09/27/2024 12:37:03 12/03/2024 text/html pt here today for medication refills. pt states hes doing well on current medication regime and has no new complaints today. pt states that he has recently had more skin cancers removed, and needs another one removed. he is having spinal sx again the first of december to replace a lead. Maya Torres APRN [address] [place], [id number], [employer], [employer]. 12/03/2024 15:29:36 02/01/2025 text/html pt here today for medication refills. pt states hes doing well on current medication regime. pt states that he has been doing alot of work lately on his truck and working on an old trailer trying to fix it up and his joints are hurting. states that he used to be prescribed 10mg of prednisone and it worked better with his joint pain. pt states that he is aware of the affects that it can cause on his bones and states that he is in so much pain now that he doesnt care. Maya Torres APRN [address] [place], [address], [employer] 02/01/2025 12:22:29 03/08/2025 text/html Annual WellnessReported by Patient pt here today for AWV and medication refills. pt states hes doing well on current medication regime. pt states that he has had sinus issues for the past week. states that he has green drainage and that he can taste the infection . on exam, pt sounds nasally, sinuses tender, lungs decreased. i will order abx. edcuated pt on new med. pt voiced understanding. increase fluids. return for worsening symptoms. Tamar mortensen, [employer] 03/08/2025 10:12:47 05/09/2025 text/html pt here today for medication refills. pt states hes doing well on current medication regime and has no new complaints today. pt requested more trelegy samples and i gave him 4. Maya Torres, SIMI [address] [place], [id number], [facility] [employer] 05/09/2025 18:02:01
--- OUTSIDE RECORDS SUMMARY | 2025-07-06 10:21 | XMS_ITS | Data Portability ---
Author Organization [facility] BROOKS GutierrezS [place] CLOSED Address [address] [place] [address] Care Team Providers Care University Extension Specialist Name Role Phone HERIBERTO PATEL Orthopedic Surgeon [phone] SHARMIN WHITAKER Primary Care Provider Assessment No assessment recorded. Plan of Treatment Reminders Order Date Submit Date Provider Last Modified By Organization Details Last Modified Time Details Appointments DERM ESTABLISH ED 2025 10:30A Nancy GONZALEZ MD Not available Not available Not available Lab surgical pathology study - Excision: Biopsy proven BCC check for clear margins 2024 05 025 [facility], [address] [place] [address], [phone], 11/22/2024 12:08:26 Referral None recorded. Procedures None recorded. Surgeries None recorded. Imaging None recorded. Medication Orders None recorded. Patient TargetsNo targets recorded. Patient InstructionsNo instructions recorded. Reason for Referral None Reported. Results Created Date Observation Date Name Description Value Unit Range Abnormal Flag Note LastModifiedBy Organization Detail LastModifiedTime 10/30/19 25 10/29/2024 SURGI MIRELLA surgical SEE BELOW abnormal Champion topat holog y Repor t NAME: ISATU CORMIER PATH: [id number] PROCE DURE DATE: 10/29 SIGNO UT DATE: 10/31 Copy to: Diagn osis: A: Right Poste rior Base of Neck - BASAL CELL CARCI NOMA, NODUL AR Comme nt: The de ns are free of tumor in the secti ons exami jason. AJCC: T1, Nx, Mx B: Right Dorsa l Forea rm - BASAL CELL CARCI NOMA Comme nt: One perip heral and deep de n is invol aden with tumor . AJCC: T1, Nx, Mx C: Right Radia l Forea rm - BASAL CELL CARCI NOMA Comme nt: The perip heral and deep de ns are invol aden with tumor . AJCC: T1, Nx, Mx D: Left Midli ne Tempo ral Scalp - BASAL CELL CARCI NOMA Comme nt: The perip heral and deep de ns are invol aden with tumor , AJCC: T1, Nx, Mx E: Right Super ior Foreh ead -SQUA MOUS CELL CARCI NOMA, SUPER FICIA L Comme nt: The de ns are free of tumor in the secti ons exami jason. AJCC: T1, Nx, Mx SOURC E OF SPECI MEN: 1) SKIN, R POSTE RIOR BASE OF NECK 2) SKIN, R DORSA L FOREA RM 3) SKIN, R RADIA L FOREA RM 4) SKIN, L MIDLI NE TEMPO RAL SCALP 5) SKIN, R SUPER IOR FOREH EAD CLINI MIRELLA INFOR MATIO N: A) R/O: BCC B) R/O: BCC C) R/O: BCC D) R/O: BCC E) R/O: BCC VS. SCC Gross Descr iptio n: A: The speci men consi sted of a loza fragm ent which was bisec mignon and measu red 8 x 6 x 1 mm. All submi tted in one casse tte. B: The speci men consi sted of a singl e loza tissu e fragm ent which measu red 12 x 7 x 1 mm. Speci men is seria lly secti oned (x4). All is submi tted in one casse tte. C: The speci men consi sted of a loza fragm ent which was trise cted and measu red 9 x 5 x 1 mm. All submi tted in one casse tte. D: The speci men consi sted of a loza fragm ent which was trise cted and measu red 9 x 7 x 1 mm. All submi tted in one casse tte. E: The speci men consi sted of a loza fragm ent which was bisec mignon and measu red 7 x 5 x 1 mm. All submi tted in one casse tte. Micro scopi c Descr iptio n: A: Solid aggre stovall of basal oid cells exhib it perip heral palis ading . B: Nests and aggre stovall of immat ure basal oid epith elial cells with perip heral palis ading are prese nt in the dermi s. C: Nests and aggre stovall of immat ure basal oid epith elial cells with perip heral palis ading are prese nt in the dermi s. D: Nests and aggre stovall of immat ure basal oid epith elial cells with perip heral palis ading are prese nt in the dermi s. E: The epide rmis conta ins foci of full thick ness kerat inocy te atypi a and disor ganiz ation . Small frond s of atypi mirella kerat inocy sami exten d into the super ficia l dermi s. NIKINA CORRINE PEREIRA MD Khalida d Out Date: 10/31 10:38 1 Not Available [facility] [address], [place], [address], 10/31/2024 10:39:11 11/21/19 25 11/20/2024 SURGI MIRELLA surgical SEE BELOW abnormal Champion topat holog y Repor t NAME: LANCE Irais ISATU PATH: [id number] PROCE DURE DATE: 11/20 SIGNO UT DATE: 11/22 Copy to: Diagn osis: A: Right Dorsa l Forea rm - REPAR ATIVE REACT ION FOLLO WING PREVI OUS PROCE DURE Comme nt: Subcu taneo us fat is ident ified . B: Right Radia l Forea rm - BASAL CELL CARCI NOMA Comme nt: The de ns are free of tumor . Subcu taneo us fat is ident ified . AJCC: T1, Nx, Mx SOURC E OF SPECI MEN: 1) SKIN, R DORSA L FOREA RM 2) SKIN, R RADIA L FOREA RM CLINI MIRELLA INFOR MATIO N: A: BX PROVE N: BCC. CHECK FOR CLEAR DE NS. B: BX PROVE N: BCC. CHECK FOR CLEAR DE NS. Gross Descr iptio n: A: Recei aden times one loza oval- shape d excis ion which measu red 21 x 18 x 4 mm. Speci men is inked with blue dye for de ns and seria lly secti oned (x6). All is submi tted in three casse ttes. B: Recei aden times one loza oval- shape d excis ion which measu red 18 x 18 x 3 mm. Speci men is inked with blue dye for de ns and seria lly secti oned (x6). All is submi tted in three casse ttes. Micro scopi c Descr iptio n: A: Focal granu latio n tissu e weaver the site of the previ ous proce dure. These is no evide nce of resid ual neopl asm. B: Nests and aggre stovall of immat ure basal oid epith elial cells with perip heral palis ading are prese nt in the dermi s. LETTY PEREIRA MD Khalida d Out Date: 11/22 12:08 1 Not Available [facility] [address] [place] [address], [phone], 11/22/2024 12:08:26 Result Notes None recorded. Problems No Known Problems Procedures Surgical History Date Name Laterality Status Provider Name and Address Organization Details Recorded Time 12/12/19 25 Suture/Staple removal completed Henny [facility] 12/11/2024 07:41:19 11/21/19 25 DAK - Lesion Excision, [place]; trunk,arms,legs completed NUVIA SIDDIQUI JR, MD [address] [place] [address], [phone], [facility] 11/20/2024 14:00:58 10/30/19 25 DAK - Biopsy, Tangential completed Janna [facility] 10/29/2024 10:31:00 12/26/19 24 Biopsy Skin Lesion; Tangential completed Kelsey RAME[facility] - [facility] 12/26/2023 11:19:57 12/26/19 24 Destruction Premalignant Lesion(s) completed Kelsey RAMEY - [facility] 12/26/2023 11:19:17 06/23/20 23 Biopsy Skin Lesion; Tangential completed Kelsey RAMEY - [facility] 06/23/2023 11:49:07 06/23/20 23 Destruction Premalignant Lesion(s) completed Kelseytiny RAMEY - [facility] 06/23/2023 11:45:10 03/24/20 18 Stress Test - Echo Dobutamine completed GILDA LAGUNAS [facility] [address] [place], [address], [facility] 03/24/2018 12:52:45 03/24/20 18 Echocardiogram - Dobutamine Stress Test completed GILDA LAGUNAS MD [address] [place], [phone] [place] [address] 03/24/2018 12:42:39 Hernia Repair completed Jazmin Short [facility] 02/14/2018 10:09:44 Other completed Jazmin Short [place] [facility] 02/14/2018 10:10:04 Other completed Jazmin Short [place] [facility] 02/14/2018 10:10:14 Other completed Jazmin Short [place] [facility] 02/14/2018 10:10:30 Other completed Jazmin Short [place] [facility] 02/14/2018 10:10:35 Other completed Jazmin Short [place] [facility] 03/03/2018 10:09:36 Imaging Results None recorded. Procedure Notes None recorded. Medical Equipment None Reported. Allergies No known drug allergies Medications Name Sig Start Date Stop Date Status Note LastModified by Organization Details LastModified Time doxycycli ne hyclate 100 mg capsule Take 1 capsule twice a day by oral route with meal(s) for 7 days, for postoper ative care. 12/18 completed Not Available Not Available Not Available Cardura 4 mg tablet Daily 03/03 completed Frequenc y: daily;Me dication Descript ion: doxazosi n; Dosage:1 ; Route:or al; refills: 0; Quantity :30 tablet Not Available Not Available Not Available Zyrtec 10 mg tablet Daily 03/03 completed Duration : 10 days;Jonas quency: daily;Me dication Descript ion: cetirizi ne; Dosage:1 ; Route:or al; refills: 0; Quantity :30 tablet Not Available Not Available Not Available tamsulosi n 0.4 mg capsule Take 1 capsule twice a day by oral route. 06/23 completed Not Available Not Available Not Available trazodone 150 mg tablet Take 1 tablet every day by oral route. 06/23 completed Not Available Not Available Not Available diclofena c sodium 75 mg tablet,de layed release Take 1 tablet twice a day by oral route. 06/23 completed Not Available Not Available Not Available monteluka st 10 mg tablet Take 1 tablet every day by oral route. 06/23 completed Not Available Not Available Not Available lorazepam 1 mg tablet Take 1 tablet 3 times a day by oral route. 06/23 completed Not Available Not Available Not Available losartan 100 mg tablet Take 1 tablet every day by oral route. 06/23 completed Not Available Not Available Not Available doxycycli ne hyclate 100 mg tablet Take 1 tablet twice a day by oral route with meal(s) for 5 days, for postoper ative care. 2024 active Not Available Not Available Not Avai lable finasteri de 5 mg tablet Take 1 tablet every day by oral route. 06/23 completed Not Available Not Available Not Available Asacol 400 mg tablet,de layed release Every four hours 03/03 completed Frequenc y: q4h;Medi cation Descript ion: mesalami ne; Dosage:1 ; Route:or al; refills: 0; Quantity :22 enteric coated tablet Not Available Not Available Not Available duloxetin e 60 mg capsule,d elayed release Take 1 capsule every day by oral route. 06/23 completed Not Available Not Available Not Available loratadin e active Not Available Not Available Not Available finasteri de active Not Available Not Available Not Available tamsulosi n active Not Available Not Available Not Available omeprazol e active Not Available Not Available Not Available lorazepam active Not Available Not Paola ilable Not Available sulfasala zine active Not Available Not Available Not Available monteluka st active Not Available Not Available Not Available losartan active Not Available Not Avai lable Not Available trazodone active Not Available Not Paola ilable Not Available gabapenti n active Not Available Not Available Not Available balsalazi de 250mg TID 06/23 completed Not Available Not Available Not Available duloxetin e active Not Available Not Available Not Available Vitals Date Recorded Systolic And Diastolic Provider Name and Address Organization Details Last Updated DateTime 11/20/2024 131/87 mm[Hg] Henny Tijerina [facility] 11/20/2024 11:58:18 Social History Question Answer Notes LastModified by Organizat ion Details LastModified Time Tobacco Smoking Status [facility]14[facility]2018 10:08:49 When Did You Quit Smoking? 16+yearssince lastcigarette Information not available 03/03/2018 Live Alone Or With Others? With Others [email or web address] Information not available 03/03/2018 Marital Status [email or web address] Informatio n not available 03/03/2018 What Was The Date Of Your Most Recent Tobacco Screening? 03/03/2018 Information n ot available 09/04/2019 Sex: Male Functional Status Question Answer Note LastModified by Organizat ion Details LastModified Time What is your level of alcohol consumption? None [email or web address] Information not available 02/14/2018 What is your occupation? [employer] Information not available 03/03/2018 Mental Status None recorded. Family History Relationship Description Onset Age of this Age Resolved Age Notes LastModified by Organization Details LastModified Time Unspecified Relation Family history of malignant neoplasm [email or web address] Not available 2017 10:08:14 Unspecified Relation Hypertensive disorder [email or web address] Not available 2017 10:08:34 Unspecified Relation Arthritis [email or web address] Not available 2017 10:08:43 Medical History Condition Response Arthritis Y Basal Cell Carcinoma Y Past Encounters Encounter ID Performer Location Encounter Start Date Encounter Closed Date Diagnosis/Indication Diagnosis SNOMED-CT Code Diagnosis ICD10 Code Diagnosis IMO Codes Diagnosis Note [id number] DEE FERNÁNDEZ MD CARDIOLOG Y [facility] CLOSED [address] [place] [address] 03/03/2018 09:58:12 03/03/2018 11:04:15 Atherosclerosis of arteries of the extremities [id number] I70.209 The patient has normal lower extremity pulses and essentiall y normal CORY. With findings of vascular calcificat ion recommend considerat ion for addition of statins and low-dose aspirin to his regimen. No further testing of his lower extremitie s is indicated at this time. Preoperati ve cardiovascular examination [id number] Z01.810 The patient requires knee replacemen t. He has no evidence of aortic stenosis, angina or CHF and therefore I would anticipate a low cardiovasc ular risk. In light of the presence of atheroscle rosis, I suggest a preoperati ve dobutamine stress echocardio gram. Results will be forwarded to his orthopedic surgeon once available. [id number] GILDA LAGUNAS MD [facility] CLOSED [address] [place] [address] 03/24/2018 08:18:43 03/31/2018 15:16:10 Coronary arteriosclerosis in [place] artery [id number] 107 I25.10 [id number] GILDA LAGUNAS MD [facility] [address] [facility] [address] [place] [address] 03/24/2018 08:19:09 03/24/2018 13:23:26 Coronary arteriosclerosis 73667409 I25.10 [id number] GIAN Espino, [employer] DAK [facility] [address] [place] [address] 06/23/2023 10:45:12 06/23/2023 11:56:59 History of malignant neoplasm of skin 246054185 Z85.828 Last skin cancer - 07/2022 - No evidence of recurrence today- Call with any worrisome lesions or if treated lesions return- Return at regular intervals for skin exam as recommende d Multiple b enign melanocytic nevi 931217871 D22.5 - Benign moles seen on exam today - SPF 30 or higher broad-spec trum sunscreen recommende d with re-applica tion every 2 hours - Discussed sun protection measures, including wide-brimm ed hat, sun-protec tive clothing, and avoidance of sun during peak hours of 10am-4pm - Avoid tanning beds as these can increase the chances of all 3 types of skin cancer - Instructed to monitor for changes and to call us for appointmen t with any changing or worrisome lesions Seborrheic keratosis 394 169355 L82.1 - Benign overgrowth s of skin - Hereditary Senile angioma 2285085 I 78.1 - Benign blood vessel growths - Hereditary Solar lentigo 07687124 L 81.4 - Benign brown spots - Sun-induce d Actinic keratosis 926027 007 L57.0 Actinic keratoses are precancero us lesions that may progress to squamous cell carcinoma if untreated. UV light and genetics may increase risk. Treated lesions should blister, scab over, and heal within a few weeks. If treated lesion(s) does not resolve within 1-2 months, patient agrees to follow up for re-evaluat ion. Neoplasm o f uncertain behavior of skin 64588738 D48.5 Recommend blade biopsy. Risks, benefit, and procedure discussed with patient. Consent obtained. [id number] RINKU KELLY MD [address] [address] 08/16/2023 08:26:04 08/19/2023 14:47:05 [id number] GIAN Espino APRN [address] [address] 12/26/2023 10:46:06 12/26/2023 11:27:25 History of malignant neoplasm of skin 370023846 Z85.828 last skin cancer - 06/2023 - No evidence of recurrence today- Call with any worrisome lesions or if treated lesions return- Return at regular intervals for skin exam as recommende d Multiple b enign melanocytic nevi 230223173 D22.5 - Benign moles seen on exam today - SPF 30 or higher broad-spec trum sunscreen recommende d with re-applica tion every 2 hours - Discussed sun protection measures, including wide-brimm ed hat, sun-protec tive clothing, and avoidance of sun during peak hours of 10am-4pm - Avoid tanning beds as these can increase the chances of all 3 types of skin cancer - Instructed to monitor for changes and to call us for appointmen t with any changing or worrisome lesions Seborrheic keratosis 394 861497 L82.1 - Benign overgrowth s of skin - Hereditary Senile angioma 7476926 I 78.1 - Benign blood vessel growths - Hereditary Solar lentigo 44080767 L 81.4 - Benign brown spots - Sun-induce d Neoplasm o f uncertain behavior of skin 34528720 D48.5 Recommend blade biopsy. Risks, benefit, and procedure discussed with patient. Consent obtained. Discussed the biopsy only takes the top layer of the lesion for testing. This does NOT treat the skin cancer if it is one. Advised they would need to return for more treatment given the type and depth of the skin cancer when the results come in. Actinic keratosis 007 L57.0 Actinic keratoses are precancero us lesions that may progress to squamous cell carcinoma if untreated. UV light and genetics may increase risk. Treated lesions should blister, scab over, and heal within a few weeks. If treated lesion(s) does not resolve within 1-2 months, patient agrees to follow up for re-evaluat ion. [id number] RINKU KELLY MD [address] [place] [address] 02/14/2024 08:21:31 02/16/2024 14:44:35 [id number] RINKU KELLY MD [address] [place] [address] 03/14/2024 09:34:47 03/22/2024 04:26:11 Postoperative visit 330486370 Z09 Scar 256687826 L90.5 History of malignant basal cell neoplasm of skin 779977813 Z85.828 No evidence of recurrence . Discussed risk of recurrence and new skin cancers, so regular self exam and profession al skin checks are recommende d. Sun protection with broad spectrum SPF 30 sunscreen and broad-brim med hat is recommende d. Sun protection with SPF 30 broad spectrum sunscreen and protective gear discussed. [id number] GIAN Espino APRN [address] [place] [address] 10/29/2024 09:42:30 10/29/2024 10:46:53 History of malignant neoplasm of skin 109736615 Z85.828 Most recent skin cancer 12/2023 - No evidence of recurrence today- Call with any worrisome lesions or if treated lesions return- Return at regular intervals for skin exam as recommende d Multiple b enign melanocytic nevi 799485326 D22.5 - Benign moles seen on exam today - SPF 30 or higher broad-spec trum sunscreen recommende d with re-applica tion every 2 hours - Discussed sun protection measures, including wide-brimm ed hat, sun-protec tive clothing, and avoidance of sun during peak hours of 10am-4pm - Avoid tanning beds as these can increase the chances of all 3 types of skin cancer - Instructed to monitor for changes and to call us for appointmen t with any changing or worrisome lesions Seborrheic keratosis 394 237301 L82.1 - Benign overgrowth s of skin - Hereditary Senile angioma 0395515 I 78.1 - Benign blood vessel growths - Hereditary Solar lentigo 21552463 L 81.4 - Benign brown spots - Sun-induce d Neoplasm o f uncertain behavior of skin 80294129 D48.5 Recommend blade biopsy. Risks, benefit, and procedure discussed with patient. Consent obtained. Discussed the biopsy only takes the top layer of the lesion for testing. This does NOT treat the skin cancer if it is one. Advised they would need to return for more treatment given the type and depth of the skin cancer when the results come in. [id number] MD DANNY HINKLE JR [place] [address] [facility] [address] 11/13/2024 09:51:03 11/13/2024 12:10:30 [id number] MD DANNY HINKLE [place] [address] [facility] [address] 11/20/2024 11:19:12 11/20/2024 13:33:38 Basal cell carcinoma of upper extremity 075288894 C44.612 [id number] MD DANNY HINKLE JR [place] [address] [place] [address] 11/27/2024 10:53:15 11/27/2024 14:06:05 [id number] NUVIA SIDDIQUI JR, MD [place] [address] [place] [address] 12/04/2024 09:54:33 12/04/2024 11:37:08 [id number] NUVIA SIDDIQUI JR, MD [place] [address] [place] [address] 12/11/2024 09:21:24 12/11/2024 09:46:54 Scar 520356927 L90.5 Wound in appropriat e stages of healing.No acute s/s of infection present.St aples removed at appt today, bandage applied.Candelario freedman instructed to continue to apply Vaseline BID for three days, may leave uncovered. Patient to follow up if any questions or concerns arise. Health Concerns Section Related Observation LastModified by Organization Detai ls LastModified Time None Recorded Concern Status LastModified by Organization Details LastModified Time None Recorded Advance Directives Directive None Recorded Payers Insurance Date Sequence Insurance Name Policy Number Policy Sutherland Covered Member ID Sutherland Member ID Guarantor Name 04/26/2025 2 [employer] SUPPLEMENTAL - [employer] INSURANCE (MEDICARE SUPPLEMENT) PLAN G Isatu Marta Anam [id number] Isatu Marta Anam 04/26/2025 1 [place] Isatu Marta Anam [id number] Isatu Mendieta 08/05/2023 2 [employer] Isatu Mendieta [id number] Isatu Mendieta 08/05/2023 1 [place] [id number] Isatu Menditea [id number] Isatu Mendieta Notes Date Note Type Note Provider Name and Address Organization Details Recorded Time 11/13/2024 text/html ROS as noted in the [facility] Patient presents today for an excision to right posterior base of neck for treatment of BCC. Procedure changed to Mohs procedure. Not Available [facility] 11/19/2024 08:16:02 11/20/2024 text/html ROS as noted in the [facility] Patient presents today for an excision to Right Dorsal Forearm and Right Radial Forearm for treatment of biopsy proven BCC. NUVIA SIDDIQUI JR, MD [address] [place] [address], [phone], [facility] 11/20/2024 14:03:55 12/11/2024 text/html ROS as noted in the HPI Patient present today for fourteen day staple removal following Excision procedure on 11/27/2024 toLeft Midline Temporal Scalp for treatment of BCC. NUVIA SIDDIQUI JR, MD [address] [place] [address], [phone], [facility] 12/11/2024 10:11:03
--- OUTSIDE RECORDS SUMMARY | 2025-07-06 10:21 | XMS_ITS | Clinical Summary ---
Author Organization [facility] Address [address] [place] [address] Care Team Providers Care Internal Medicine Hospitalist Name Role Phone Maya Torres Primary Care Provider + [phone] Allergies No known active allergies Medications DULoxetine (CYMBALTA) 60 MG capsule Take 1 capsule by mouth Daily. 5 9 Active finasteride (PROSCAR) 5 MG tablet Take 1 tablet by mouth Daily. 5 9 Active gabapentin (NEURONTIN) 300 MG capsule Take 1 capsule by mouth every night at bedtime. 2 9 Active LORazepam (ATIVAN) 1 MG tablet Take 1 tablet by mouth 3 (Three) Times a Day. 0 9 Active losartan (COZAAR) 100 MG tablet Take 1 tablet by mouth Daily. 9 Active montelukast (SINGULAIR) 10 MG tablet 9 Active traZODone (DESYREL) 150 MG tablet Take 1 tablet by mouth every night at bedtime. 5 9 Active Cetirizine HCl 10 MG capsule Take by mouth. A ctive multivitamin with minerals tablet tablet Take 1 tablet by mouth Daily. Active acetaminophen (TYLENOL) 500 MG tablet Take 1 tablet by mouth Every 6 (Six) Hours As Needed for Mild Pain. Active sulfaSALAzine (AZULFIDINE) 500 MG tablet 3 Active tamsulosin (FLOMAX) 0.4 MG capsule 24 hr capsule Take 1 capsule by mouth Daily. 3 Active fluticasone (FLONASE) 50 MCG/ACT nasal spray fluticasone propionate 50 mcg/actuation nasal spray,suspensio n Active GaviLyte-C 240 g solution See Admin Instructions. 3 Active Pseudoephedrine- Ibuprofen 30-200 MG tablet Advil Cold and Sinus 30 mg-200 mg tablet TAKE 1 TABLET BY MOUTH EVERY 4 TO 6 HOURS NEEDED Active pantoprazole (PROTONIX) 40 MG EC tabletIndication s:GERD without esophagitis Take 1 tablet by mouth 2 (Two) Times a Day. 180 tablet 11 3 Active guaiFENesin (Mucinex) 600 MG 12 hr tabletIndication s:Bronchiectasis without acute exacerbation Take 2 tablets by mouth 2 (Two) Times a Day. 90 tablet 3 3 Active predniSONE (DELTASONE) 10 MG tabletIndication s:Bronchiectasis with acute exacerbation Take 4 tabs daily x 4 days, then take 3 daily x 3 days, then take 2 daily for 2 days, then take 1 daily x 2 days 31 tablet 3 Active levoFLOXacin (Levaquin) 750 MG tabletIndication s:Bronchiectasis with acute exacerbation Take 1 tablet by mouth Daily. 7 tablet 3 Active pantoprazole (Protonix) 40 MG EC tablet Take once daily 30 minutes prior to eating on empty stomach. Elevate the head of the bed 2 to 6 inches and not eat or drink 2 hours prior to going to sleep. 90 tablet 3 3 Active albuterol sulfate HFA 108 (90 Base) MCG/ACT inhalerIndicatio ns:Bronchiectasi s without acute exacerbation INHALE 2 PUFFS EVERY 4 HOURS NEEDED FOR WHEEZING. APPT IS NEEDED FOR REFILLS 8 g 3 4 Active pantoprazole (PROTONIX) 40 MG EC tablet TAKE 1 TAB DAILY 30 MIN BEFORE EATING ON EMPTY STOMACH. ELEVATE HEAD OF BED 2-6 INCH AND NOT EAT/ DRINK 2 HRS PRIIOR TO BED 90 tablet 1 4 Active Active Problems Problem Noted Date Diagnosed Date Degenerative lumbar disc 04/05/2019 Cervical stenosis of spinal canal 02/01/2019 Immunizations Immunization Administration Dates Next Due Arexvy (RSV, Adults 60+ yrs) 03/25/2023 COVID-19 (MODERNA) 1st,2nd,3 rd Dose Monovalent 05/09/2021,10/16/2020,09/18/2020 COVID-19 (MODERNA) BIVALENT 12+YRS 04/28/2022 Flu Vaccine Split Quad 03/27/2020 Fluzone >6mos 03/29/2017 Fluzone High-Dose 65+YRS 04/24/2019,04/24/2018 Fluzone High-Dose 65+yrs 03/25/2023,04/28/2022,1 Tdap 11/20/2015 flucelvax quad pfs =>4 YRS 05/15/2016 Family History Medical History Relation Name Comments Cancer Father Relation Name Status Comments Father Mother Alive Social History Tobacco Use Types Packs/Day Years [...] Sign Reading Time Taken Comments Blood Pressure 140/82 05/27/2023 9:49 AM EST Pulse 73 05/27/2023 9:49 AM EST Temperature 37.1 C (98.7 F) 05/27/2023 9:49 AM EST Respiratory Rate 18 01/24/2023 2:21 PM EDT Oxygen Saturation 93% 05/27/2023 9:4 9 AM EST Room air at rest Inhaled Oxygen Concentration - - Weight 113 kg (249 lb 8 oz) 05/27/2023 9:49 AM EST Height 175.3 cm (5' 9.02 ) 05/27/2023 9 :49 AM EST Body Mass Index 36.82 05/27/2023 9:49 AM EST Plan of Treatment Health Maintenance Due Date Last Done Comments COLOGUARD 1997 COLON CANCER SCREENING 5 YEA R SIGMOIDOSCOPY 1997 COLONOSCOPY 1997 COLORECTAL CANCER SCREENING 1997 CT COLONOGRAPHY 1997 FECAL OCCULT BLOOD TEST 1997 FIT Testing (1 year) 1997 Pneumococcal Vaccine 50+ (1 of 1 - PCV) 2002 ZOSTER VACCINE (1 of 2) 2002 ANNUAL WELLNESS VISIT 02/01/2019 HEPATITIS C SCREENING 02/01/2019 INFLUENZA VACCINE 02/15/2025 03/25/2023, , 05/04/2021, Additional history exists COVID-19 Vaccine (5 - 2024-2 6 season) 2025 04/28/2022, 05/09/2021, 10/16/2020, Additional history exists TDAP/TD VACCINES (2 - Td or Tdap) 11/19/2025 016 AAA SCREEN ONCE Completed 10/27/2020 Medical Devices Implanted Type Area Principal Programmer Device Identifier Shelf Expiration Date Model / Serial / Lot Ld Stim Precsn Trial Lnr 8contct St/Tp50 - [id number] - [id number] Implanted:Qty : 1 on 10/05/2022 by Jerome Morrissey MD at [facility] Implant N/A: Spine Thoracic [employer] 08/30/2024 [id number] / [id number] / Ld Stim Precsn Trial Lnr 8contct St/Tp50 - [id number] - [id number] Implanted:Qty : 1 on 10/05/2022 by Jerome Morrissey MD at [facility] Implant N/A: Spine Thoracic [employer] 08/26/2024 [id number] / [id number] / Anchr Ld Scs Clikx Ea/St/2 - [id number] Implanted:Qty : 1 on 10/05/2022 by Jerome Morrissey MD at [facility] Implant N/A: Spine Thoracic [employer] 01/06/2024 [id number] / / [id number] Kt Ipg Wavewriter Alpha 16/Contct - [id number] - [id number] Implanted:Qty : 1 on 10/05/2022 by Jerome Morrissey MD at [facility] Implant N/A: Spine Thoracic [employer] [id number] 09/13/2024 [id number] / [id number] / [id number] Insurance MEDICARE A & B Member Subscriber Plan / Payer (Ef fective 2017-Present) Name:Stephane Mendieta Member ID:[id number] Relation to Subscriber:Self Name:Stephane Mendieta Subscriber ID:[id number] Payer ID:[id number] Group ID:Not on file Type:Not on file Address: [facility] [id number] [place] [id number] [facility] Pocket Change Care Teams Internal Medicine Hospitalist Relationship Specialty Start Date End Date Maya Torres Kaylyn [place] [id number] PCP - General Nurse Practitioner 09/28/22
--- OUTSIDE RECORDS SUMMARY | 2025-07-06 10:21 | XMS_ITS | Encounter Summary ---
Author Organization [facility] ([place], [place], [place], [place], [place]) Address [address] [place] [address] Care Team Providers Care Facility Maintenance Manager Name Role Phone Maya Torres Reji BELCHER Primary Care Provider [phone] Encounter Details Date Type Department Care Team (Late st Contact Info) Description 10/18/2020 Transcribed Document [facility] [place] Family [place] [facility] [place] [address] ProviderJean MD [address] [place] [address] Social History Tobacco Use Types Packs/Day Years Used Date Smoking Tobacco: Never Assessed Sex and Gender Information Value Date Recorded Sex Assigned at Not on file Legal Sex Male 5:19 PM CDT Gender Identity Not on file Sexual Orientation Not on file documented as of this encounter Miscellaneous Notes * Cerner Conversion Note - Jean Sawant MD - 10/18/2020 9:39 PM CDT ED Discharge Entered On: 10/18/2020 21:42 EDT Performed On: 10/18/2020 21:39 EDT by Dee Ocampo RN Discharge Process Patient Disposition : Discharge Personal Belongings With Patient : Yes Patient Education Completed : Yes Teaching Evaluation : Verbalizes understanding IV Discontinued : Not applicable Nursing Documentation Completed : Yes Dee Ocampo RN - 10/18/2020 21:39 EDT ED Discharge Discharge To : Home with ambulatory/outpatient follow-up Mode Of Departure : Ambulatory Accompanied By : Spouse Discharge Instructions Reviewed With, Opportunity For Questions Given : Patient Prescriptions Given to Patient : Yes Number of Prescriptions Given : 1 Medications Given to Patient : No Dee Ocampo RN - 10/18/2020 21:39 EDT documented in this encounter Plan of Treatment Not on file documented as of this encounter Visit Diagnoses Not on filedocumented in this encounter Care Teams Facility Maintenance Manager Relationship Specialty Start Date End Date Maya Torres, INSURANCE MARKETING SPECIALIST [address] [id number] PCP - General Family Medicine 08/27/22 documented as of this encounter
--- OUTSIDE RECORDS SUMMARY | 2025-07-06 10:21 | XMS_ITS | Patient Health Record ---
Author Organization [facility] Address [address] [facility] [address] [place] [address] Care Team Providers Care Fire Adjuster Name Role Phone Jerome Morrissey II Unavailable Michael COLEMAN -Issa Barry MD Unavailable [phone] Allergies No Known Allergies Reason For Referral No Information Medications Medication SIG (Take, Route, Frequency, Duration) Notes Start Date End Date Status Losartan 100 mg ; Duration: 90 Active montelukast 10 mg 1 tab(s) orally once a day; Duration: 30 day(s) 05/20/2022 Active LORazepam 1 mg 1 tab(s) orally once daily Active gabapentin 300 mg 1 cap(s) orally once a day Active sulfaSALAzine 500 mg ; Duration: 90 Active Fluticasone Propionate 50 mcg intranasal use 05/20/2022 Active omeprazole 40 mg ; Duration: 90 Active finasteride 5 mg ; Duration: 90 Active DULoxetine 60 mg 1 cap(s) orally once a day; Duration: 30 day(s) 05/20/2022 Active levoFLOXacin 500 mg 1 tab(s) orally ever y 24 hours; Duration: 6 day(s) 08/09/2022 Active tamsulosin 0.4 mg 1 cap(s) orally once a day; Duration: 30 day(s) 05/20/2022 Active traZODone 150 mg as directed orally 05/20/2022 Active Problems Problem Type SNOMED Code ICD Code Onset Dates Problem Status W/U Status Risk Notes Problem Chronic pain syndrome (550423316) Chronic pain syndrome (G89.4) Active confirmed Problem Complex regional pain syndrome of lower limb (disorder) (665509251) Complex regional pain syndrome I of unspecified lower limb (G90.529) Active confirmed Problem Cervical spondylosis without myelopathy (354129984) Other spondylosis with radiculopathy, cervical region (M47.22) Active confirmed Problem Cervical spondylosis without myelopathy (824804881) Spondylosis without myelopathy or radiculopathy, cervical region (M47.812) Active confirmed Problem Lumbosacral spondylosis without myelopathy (85285576) Spondylosis without myelopathy or radiculopathy, lumbar region (M47.816) Active confirmed Problem Cervicalgia (25427892) Cervicalgia (M54.2) Active confirmed Problem Post-laminectom y syndrome (79016051) Postlaminectomy syndrome, not elsewhere classified (M96.1) Active confirmed Problem Long-term current use of drug therapy (612603053) Other intermodal dispatcher (current) drug therapy (Z79.899) Active confirmed Problem Lumbar spondylosis (434938218) lumbar spondylosis (M47.816) Active confirmed Vital Signs Heart Rate 80 /min 10/19/2024 Blood pressure diastolic 75 mm Hg 10/19/2024 Height 69 in 10/19/2024 Blood pressure systolic 158 mm Hg 10/19/2024 Weight 250 lbs 10/19/2024 BMI 36.91 kg/m2 10/19/2024 Encounters Encounter Location Date Provider Diagnosis [facility] [address] [address] [place] [address] 10/19/2024 Jerome Morrissey Other group home (current) drug therapy Z79.899 ; Spondylosis without myelopathy or radiculopathy, cervical region M47.812 ; Postlaminectomy syndrome, not elsewhere classified M96.1 and Spondylosis without myelopathy or radiculopathy, lumbar region M47.816 Assessments Encounter Date Diagnosis (ICD Code) Assessment Notes Treatment Notes Treatment Clinical Notes Section Notes 10/19/2024 Spondylosis without myelopathy or radiculopathy, cervical region (ICD-10 - M47.812) Mr. Mendieta returns today for an office visit. He has been having some issues with stimulation in the appropriate distribution. The spinal cord stimulator was reprogrammed today and we were able to capture the painful distribution in the right hip and leg. Hopefully with these new parameters he will get back on cruise control. He did wonderfully with the stimulator for about a year and then the programming changed somewhat we have been trying to recapture that initial success hopefully today's changes will benefit him once again for the long-term. 10/19/2024 Other intermodal dispatcher (current) drug therapy (ICD-10 - Z79.899) 04/02/2024 1. Discontinue Humble 5/325mg QD PRN 2. FU PRn Mr. Mendieta returns today for an office visit. He has been having some issues with stimulation in the appropriate distribution. The spinal cord stimulator was reprogrammed today and we were able to capture the painful distribution in the right hip and leg. Hopefully with these new parameters he will get back on cruise control. He did wonderfully with the stimulator for about a year and then the programming changed somewhat we have been trying to recapture that initial success hopefully today's changes will benefit him once again for the long-term. 10/19/2024 Postlaminectomy syndrome, not elsewhere classified (ICD-10 - M96.1) Mr. Mendieta returns today for an office visit. He has been having some issues with stimulation in the appropriate distribution. The spinal cord stimulator was reprogrammed today and we were able to capture the painful distribution in the right hip and leg. Hopefully with these new parameters he will get back on cruise control. He did wonderfully with the stimulator for about a year and then the programming changed somewhat we have been trying to recapture that initial success hopefully today's changes will benefit him once again for the long-term. 10/19/2024 Spondylosis without myelopathy or radiculopathy, lumbar region (ICD-10 - M47.816) Mr. Mendieta returns today for an office visit. He has been having some issues with stimulation in the appropriate distribution. The spinal cord stimulator was reprogrammed today and we were able to capture the painful distribution in the right hip and leg. Hopefully with these new parameters he will get back on cruise control. He did wonderfully with the stimulator for about a year and then the programming changed somewhat we have been trying to recapture that initial success hopefully today's changes will benefit him once again for the long-term. Plan Of Treatment Pending Test Test Name Order Date Urine Test ANALYZER 05/26/2022 Urine Test ANALYZER 08/16/2022 Urine Test ANALYZER 09/23/2022 Urine Test ANALYZER 10/19/2024 Urine Test ANALYZER 01/03/2024 Urine Test ANALYZER 10/15/2022 Insurance Providers Payer Name Payer Address Payer Phone Subscriber Number Group Number Insured Name Patient Relationship to Insured Coverage Start Date Coverage End [place] [address] [place] [address] [id number] Stephane Mendieta Self - patient is the insured 8 [employer] Medicare Supplement [address] [place] [phone] [id number] Stephane Mendieta Self - patient is the insured 8 Medical (General) History Medical History History ICD Code anxiety / Managed by PCP Surgical History Surgery Date(Month/Year) Back surgery / Dr. Rodriguez 09/2019 right knee replacement
--- OUTSIDE RECORDS SUMMARY | 2025-07-06 10:21 | XMS_ITS | Encounter Summary ---
Author Organization [facility] ([place], [place], [place], [place], [place]) Address [address] [place] [address] Care Team Providers Care Crowning Hammer Operator Name Role Phone Maya Torres Reji BELCHER Primary Care Provider [phone]- [phone] Encounter Details Date Type Department Care Team (Late st Contact Info) Description 10/18/2020 Transcribed Document [facility] [place] [facility] [place] [address] [place] [address] ProviderJean MD [address] [place], [place] [address] Social History Tobacco Use Types Packs/Day Years Used Date Smoking Tobacco: Never Assessed Sex and Gender Information Value Date Recorded Sex Assigned at Not on file Legal Sex Male 5:19 PM CDT Gender Identity Not on file Sexual Orientation Not on file documented as of this encounter Miscellaneous Notes * Cerner Conversion Note - Jean ProviderMD - 10/18/2020 7:05 PM CDT [place] Suicide Severity Rating Scale (C-SSRS) Entered On: 10/18/2020 19:42 EDT Performed On: 10/18/2020 19:41 EDT by Dee Ocampo RN [place] Suicide Severity Rating Scale (C-SSRS) CSSRS Past Month Wish to be : No CSSRS Past Month Suicidal Thoughts : No CSSRS Lifetime Suicide Behavior : No Suicide Severity Rating Score : 0 Suicide Severity Rating : No Additional Care Required at this time Thoughts of Harming/Killing Others : No Dee Ocampo RN - 10/18/2020 19:41 EDT documented in this encounter Plan of Treatment Not on file documented as of this encounter Visit Diagnoses Not on filedocumented in this encounter Care Teams Crowning Hammer Operator Relationship Specialty Start Date End Date Maya Torres, METAL BUILDINGS ASSEMBLER [address] [address] PCP - General Family Medicine 08/27/22 documented as of this encounter
--- OUTSIDE RECORDS SUMMARY | 2025-07-06 10:21 | XMS_ITS | Encounter Summary ---
Author Organization [facility] ([place], [place], [place], [place], [place]) Address [address] [place] [address] Care Team Providers Care Metal Burnisher Name Role Phone Maya Torres APRN Primary Care Provider [phone]- [phone] Encounter Details Date Type Department Care Team (Late st Contact Info) Description 10/18/2020 Transcribed Document [facility] [place] [address] [place] [address] ProviderJean MD [address] [place] [address] Social History Tobacco Use Types Packs/Day Years Used Date Smoking Tobacco: Never Assessed Sex and Gender Information Value Date Recorded Sex Assigned at Not on file Legal Sex Male 5:19 PM CDT Gender Identity Not on file Sexual Orientation Not on file documented as of this encounter Miscellaneous Notes * Cerner Conversion Note - Historical ProviderMD - 10/18/2020 9:20 PM CDT Electronically signed by [facility] Conversion Thermostat Machine Tender Cerner at 11/04/2022 3:18 PM CDT documented in this encounter Plan of Treatment Not on file documented as of this encounter Visit Diagnoses Not on filedocumented in this encounter Care Teams Metal Burnisher Relationship Specialty Start Date End Date Maya Torres APRN [address] [facility] [address] [place] [address] PCP - General Family Medicine 08/27/22 documented as of this encounter
--- OUTSIDE RECORDS SUMMARY | 2025-07-06 10:21 | XMS_ITS | Clinical Summary ---
Author Organization [facility] , [facility] Address [address] [place] [address] Phone Care Team Providers Care Blurb Writer Name Role Phone Jose Cruz COLEMAN, Domingo Jett Unavailable [phone] Olga Licea APRN Unavailable [phone] Reason for Visit and Chief Complaint The Chief Complaint is: back pain Problems Includes: Problems addressed during this encounter and other active Problems All Visits Onset Date Date of Diagnosis Resolved Date Provider Condition Status Soft Tissue Pain Hand 12/05/2024 12/05/2024 Flako Pulido PA-C Active Last Documented On 5 1:43AM ; [facility], [facility] History of Lower Back Pain M idline Right Side 04/12/2022 04/12/2022 Holden Modi PA-C Active Last Documented On 5 1:41AM ; [facility], [facility] Joint Pain Left Thumb 03/12/2021 03/12/2021 Charles Hernandez MD Active Last Documented On 5 1:40AM ; [facility], [facility] Joint Pain in Both Knees 04/05/2019 04/05/2019 Arlet Billingsley MD Active Last Documented On 5 1:39AM ; [facility], [facility] Plan of Treatment Patient screened for future fall risk: documentation of any fall with injury in past year. - Last Documented On 12/28/2024 12:21PM ; [facility], [facility] Patient was seen by myself Holden Modi PA-C. Patient will follow up in his next regular scheduled appointment with me I did tell him though if this continues to drain a or get worse to let us know and we need to have him see Dr. Rodriguez next week. We will place him on antibiotic they need to continue to do a pressure dressing with this we just put an ABD pad with some paper tape over the incision sites at the battery site area and just a dressing over the laminectomy sites with paper tape and gauze - Last Documented On 12/28/2024 12:21PM ; [facility], [facility] Pending Tests Order Diagnosis Results Due Ordering P xena Radiology - MRI MRI Lumbar Spine 04/26/22 Chas Modi PA-C Last Documented On 2 1:06PM ; [facility], [facility] Future Appointments Date Time Location Provi t[place]ira Post Op 07/19/2025 11:00AM [facility] Holden Modi PA-C Last Documented On 5 10:29AM ; [facility] Instructions to patient Lose weight Last Documented On 5 9:50AM ; [facility] Assessments Includes: Assessments from this encounter Findings - Overweight - Last Documented On 12/28/2024 12:21PM ; [facility] Spinal cord stimulator placement with paddles system December 19, 2024 - Last Documented On 12/28/2024 12:21PM ; [facility] Instructions Includes: Instructions from this encounter Instructions to patient Lose weight Last Documented On 5 9:50AM ; [facility] Medical Equipment - Implanted Devices Includes: Current Devices No Medical Equipment Recorded Medications Includes: Medications discussed during this encounter and other current Medications New / Renewed during this visit Holden Modi PA-C on 12/28/2024 Clindamycin HCl 300 MG Oral Capsule Provider: Holden Modi PA-C 11 day supply: 33 capsule, 0 refills Diagnosis: three times a day Pharmacy: [facility] [id number] , [place], [id number] - Last Documented On 5 10:10AM By Quentin Burk ; [facility], [facility] Current Medications (continue as prescribed) Percocet 5-325 MG Oral Tablet 07/03/2025 - 07/18/2025 Provider: Issa Rodriguez MD Diagnosis: 1 po q 4h prn pain Last Documented On 5 8:39AM By Issa Rodriguez ; [facility], [facility] Clindamycin HCl 300 MG Oral Capsule 01/07/2025 Provi tahira: Holden Modi PA-C Diagnosis: Last Documented On 5 10:36AM By Quentin Burk ; [facility], [facility] oxyCODONE-Acetaminophen 5-325 MG Oral Tablet Provider: Issa Rodriguez MD Diagnosis: Last Documented On 5 9:50AM By Quentin Burk ; [facility], [facility] Pantoprazole Sodium 40 MG Or al Tablet Delayed Release 12/09/2024 Provider: Maya Torres [employer] Diagnosis: Last Documented On 5 9:50AM By Quentin Burk ; [facility], [facility] LORazepam 1 MG Oral Tablet 12/04/2024 Provider: Nancy Torres [employer] Diagnosis: Last Documented On 5 9:50AM By Quentin Burk ; [facility], [facility] Doxycycline Hyclate 100 MG Oral Capsule 12/04/2024 P rovider: Diagnosis: Last Documented On 5 9:50AM By Quentin Burk ; [facility], [facility] sulfaSALAzine 500 MG Oral Tablet 11/27/2024 Provider : Maya Torres [employer] Diagnosis: Last Documented On 5 9:50AM By Quentin Burk ; [facility], [facility] Albuterol Sulfate HFA 108 (9 0 Base) MCG/ACT Inhalation Aerosol Solution 11/07/2024 Provider: Maya anderson [employer] Diagnosis: Last Documented On 5 9:50AM By Quentin Burk ; [facility], [facility] Finasteride 5 MG Oral Tablet 11/03/2024 Provider: Maya Torres [employer] Diagnosis: Last Documented On 5 9:50AM By Quentin Burk ; [facility], [facility] Tamsulosin HCl 0.4 MG Oral Capsule 11/03/2024 Provid er: Maya Torres [employer] Diagnosis: Last Documented On 5 3:49PM By Marifer Nuñez ; [facility], [facility] Amoxicillin 875 MG Oral Tablet 09/11/2024 Provider: Diagnosis: Last Documented On 9:50AM By Quentin Burk ; [facility], [facility] predniSONE 10 MG Oral Tablet 03/11/2021 Provider: Jarek Muñiz DO Diagnosis: Last Documented On 8:34AM By Deborah Lowery ; [facility], [facility] Amoxicillin 500 MG Oral Capsule 03/11/2021 Provider: Jarek Muñiz DO Diagnosis: Last Documented On 8:34AM By Deborah Lowery ; [facility], [facility] Cephalexin 500 MG Oral Capsule 03/10/2021 Provider: Diagnosis: Last Documented On 8:34AM By Deborah Lowery ; [facility], [facility] HYDROcodone-Acetaminophen 5-325 MG Oral Tablet Provider: Diagnosis: Last Documented On 8:34AM By Deborah Lowery ; [facility], [facility] Gabapentin 300 MG Oral Capsule 03/06/2021 Provider: Diagnosis: Last Documented On 8:34AM By Deborah Lowery ; [facility], [facility] LORazepam 1 MG Oral Tablet 03/06/2021 Provider: Diagnosis: Last Documented On 8:34AM By Deborah Lowery ; [facility], [facility] Esomeprazole Magnesium 40 MG Oral Capsule Delayed Rele ase 03/04/2021 Provider: Diagnosis: Last Documented On 8:34AM By Deborah Lowery ; [facility], [facility] Esomeprazole Magnesium 40 MG Oral Capsule Delayed Rele ase 03/04/2021 Provider: Diagnosis: Last Documented On 8:34AM By Deborah Lowery ; [facility], [facility] Fluticasone Propionate 50 MCG/ACT Nasal Suspension Provider: Diagnosis: Last Documented On 8:35AM By Deborah Lowery ; [facility], [facility] Past Medications on file Clindamycin HCl 300 MG Oral Capsule 01/07/2025 - 01/09/2025 Provider: Holden Steiner Diagnosis: take 2 pills, 3 three times a day Last Documented On 5 11:06AM By Quentin Burk ; [facility], [facility] Percocet 5-325 MG Oral Tablet 12/19/2024 - 01/03/2025 Provider: Issa Rodriguez MD Diagnosis: 1 po q 4h prn pain Last Documented On 8:40AM By Issa Rodriguez ; [facility] Losartan Potassium 100 MG Oral Tablet 12/05/2024 - Provider: Diagnosis: Last Documented On 3:50PM By Marifer Nuñez ; [facility] DULoxetine HCl 60 MG Oral Ca psule Delayed Release Particles 12/05/2024 - 03/05/2025 Provider: Diagnosis: Last Documented On 3:49PM By Marifer Nuñez ; [facility] Montelukast Sodium 10 MG Oral Tablet 12/05/2024 - 02/15 Provider: Diagnosis: Last Documented On 3:49PM By Marifer Nuñez ; [facility] Medications Administered Includes: Administered Medications from this encounter No Administered Medications Recorded Vital Signs Includes: Vital Signs from this encounter Vital Name 12/28/2024 09:51A Height (in) 69 Weight (lb) 250 Body Mass Index 36.9 Body Surface Area 2.3 Last Documented: On 12/28/2024 9:51AM ; [facility] Results Includes: Results discussed during this encounter No Results Recorded For Specified Dates History of Present Illness Includes: History of Present Illness from this encounter RAMEZ Mendieta is a 74 year old male. - Allergy list reviewed - Problem list reviewed - Medication list reviewed - No previous treatment. - Review of medications documented Patient is here today for follow up he had a replacement of spinal cord stimulator with a paddle system he has been noticing since the surgery he has had some drainage over the left-sided battery site no fevers Social History Description Last Updated Tobacco non-user 04/22/2022 Last Documented On 5 9:50AM ; [facility] No recent change in diet 04/22/2022 Last Documented On 5 9:50AM ; [facility] Not a current smoker. 04/22/2022 Last Documented On 5 9:50AM ; [facility] Non-smoker 03/12/2021 Last Documented On 5 9:50AM ; [facility] No tobacco use 04/05/2019 Last Documented On 5 9:50AM ; [facility] Smoking status : Never smoker 04/05/2019 Last Documented On 5 9:50AM ; [facility] Caffeine use 04/05/2019 Last Documented On 5 9:50AM ; [facility] No recent change in diet 04/05/2019 Last Documented On 5 9:50AM ; [facility] Not a current smoker 04/05/2019 Last Documented On 5 9:50AM ; [facility] Not exercising regularly 04/05/2019 Last Documented On 5 9:50AM ; [facility] Not using alcohol 04/05/2019 Last Documented On 5 9:50AM ; [facility] Not using drugs 04/05/2019 Last Documented On 5 9:50AM ; [facility], [facility] Sex - Male 07/05/2025 Last Documented On 5 2:08PM ; [facility], [facility] Procedures and Surgical History Surgical History Last Updated History of hernia repair 04/05/2019 Last Documented On 5 9:50AM ; [facility], [facility] Medical History Includes: Medical History addressed during this encounter Description Last Updated No recent immunization for flu Last Documented On 5 9:50AM ; [facility] No recent immunization for pneumococcal pneumonia 03/12/2021 Last Documented On 5 9:50AM ; [facility] cataracs 04/05/2019 Last Documented On 5 9:50AM ; [facility] Arthritic joint problems 04/05/2019 Last Documented On 5 9:50AM ; [facility] Intermittent hypertension 04/05/2019 Last Documented On 5 9:50AM ; [facility] Family History Includes: Family History addressed during this encounter Description Last Updated Family history of cancer 04/05/2019 Last Documented On 5 9:50AM ; [facility] Family history of hypertension 9 Last Documented On 5 9:50AM ; [facility] Review of Systems Includes: Review of Systems [...] encounter Description Anxiety Last Documented On 5 9:50AM ; [facility] Physical Exam Includes: Physical Exam from this encounter Allergies Includes: Active Allergies No Known Allergies Care Blurb Writer Name (Identifier) Role/Relation Location/Telecom Last Documented By Domingo Billingsley MD ([id number]) Assigned practitioner (occupation) tel: Last Documented On 07/05/2025 2:08PM ; [facility] Olga Licea APRN ([id number]) [address] [place] [address], [id number] tel: Last Documented On 04/05/2019 9:06AM ; [facility] Encounters Encounter Provider Location (Healthcare Service Location) Date Check-In Time Check-Out Time Diagnosis Encounter Disposition Post Op Holden Modi PA-C [facility] 2024 9:29AM 10:09AM Overweight Payer Includes: Active Insurance Policies Plan Name (Payer ID) Coverage Type Member ID Group # Subscriber (ID) Relationship Effective Dates 1 - Medicare Part B [facility] ([id number]) [id number] Stephane Mendieta Self (Checked on 06/03/2025) Last Documented On 9 7:57AM ; [facility], [facility] 2 - [employer] Medicare Supplemen t Insurance [id number] Stephane Mendieta Self 09/15/2017 - Unknown Last Documented On 9 8:40AM ; [facility], [facility] Clinical Notes Includes: Clinical Notes from this encounter * Progress note Date Encounter Last Documented by 12/28/2024 Post Op Last documented on 12/28/2024; 12:21 PM, Holden Modi PA-C; [facility], [facility] Active Problems & Conditions - History of Lower Back Pain Midline Right Side - Joint Pain in Both Knees - Joint Pain Left Thumb - Pain in the Hands Chief Complaint The Chief Complaint is: Back pain. History of Present Illness Stephane Mendieta is a 74 year old male. - Allergy list reviewed - Problem list reviewed - Medication list reviewed - No previous treatment. - Review of medications documented Patient is here today for follow up he had a replacement of spinal cord stimulator with a paddle system he has been noticing since the surgery he has had some drainage over the left-sided battery site no fevers Current Medication - Albuterol Sulfate HFA 108 (90 Base) MCG/ACT Inhalation Aerosol Solution 50 days, 0 refills - Amoxicillin 500 MG Oral Capsule take as directed 10 days, 0 refills - Amoxicillin 875 MG Oral Tablet 14 days, 0 refills - Cephalexin 500 MG Oral Capsule take as directed 7 days, 0 refills - Doxycycline Hyclate 100 MG Oral Capsule 7 days, 0 refills - DULoxetine HCl 60 MG Oral Capsule Delayed Release Particles take as directed 90 days, 0 refills - Esomeprazole Magnesium 40 [...] Oral Tablet 30 days, 0 refills - Losartan Potassium 100 MG Oral Tablet take as directed 90 days, 0 refills - Montelukast Sodium 10 MG Oral Tablet take as directed 90 days, 0 refills - oxyCODONE-Acetaminophen 5-325 MG Oral Tablet 15 days, 0 refills - Pantoprazole Sodium 40 MG Oral Tablet Delayed Release 90 days, 0 refills - Percocet 5-325 MG Oral Tablet 1 po q 4h prn pain, 15 days, 0 refills - predniSONE 10 MG [...] Allergies - No Known Allergies Family History Cancer Systemic hypertension Review Of Systems Systemic: No [...] allergic reaction. Physical Findings - Vitals taken 12/28/2024 09:51 am Height 69 in Weight 250 lbs Body Mass Index 36.9 kg/m2 Body Surface Area 2.3 m2 He has some skin irritation to all the incisions from the likely adhesive that they has been using for the dressings. There is some serous drainage from the battery site there is no significant erythema from the laminectomy sites he has some mild erythema around the battery site Assessment - Overweight Spinal cord stimulator placement with paddles system December 19, 2024 Previous Tests Available previous imaging studies were reviewed Available previous history reviewed Counseling/Education Tobacco non-user. use of tobacco assessment performed. - Lose weight Plan StartCited - Other Clindamycin HCl 300 MG capsule three times a day, 11 days, 0 refills EndCited Patient screened for future fall risk: documentation of any fall with injury in past year. Patient was seen by myself Holden Modi PA-C. Patient will follow up in his next regular scheduled appointment with me I did tell him though if this continues to drain a or get worse to let us know and we need to have him see Dr. Rodriguez next week. We will place him on antibiotic they need to continue to do a pressure dressing with this we just put an ABD pad with some paper tape over the incision sites at the battery site area and just a dressing over the laminectomy sites with paper tape and gauze Notes This dictation was done with voice recognition software and may contain errors and omissions. Care Team - Olga Licea APRN - [employer] COORDINATOR
--- OUTSIDE RECORDS SUMMARY | 2025-07-06 10:21 | XMS_ITS | Clinical Summary ---
Author Organization [facility] , [facility] Address [address] [place] [address] Phone Care Team Providers Care Revenue Field Auditor Name Role Phone Jose Cruz COLEMAN, Domingo Jett Unavailable [phone] Olga Licea APRN Unavailable [phone] Reason for Visit and Chief Complaint The Chief Complaint is: back pain Problems Includes: Problems addressed during this encounter and other active Problems All Visits Onset Date Date of Diagnosis Resolved Date Provider Condition Status Soft Tissue Pain Hand 12/05/2024 12/05/2024 Flako Pulido PA-C Active Last Documented On 5 1:43AM ; [facility], [facility] History of Lower Back Pain M idline Right Side 04/12/2022 04/12/2022 Holden Modi PA-C Active Last Documented On 5 1:41AM ; [facility], [facility] Joint Pain Left Thumb 03/12/2021 03/12/2021 Charles Hernandez MD Active Last Documented On 5 1:40AM ; [facility], [facility] Joint Pain in Both Knees 04/05/2019 04/05/2019 Arlet Billingsley MD Active Last Documented On 5 1:39AM ; [facility], [facility] Plan of Treatment Patient screened for future fall risk: documentation of any fall with injury in past year. - Last Documented On 01/28/2025 11:48AM ; [facility], [facility] Patient was seen by myself Holden Modi PA-C. Patient will follow up 1 week we are going to keep him on clindamycin we will take the geronimo out of all the incisions today and recheck this in a week - Last Documented On 01/28/2025 11:48AM ; [facility] Pending Tests Order Diagnosis Results Due Ordering P xena Radiology - MRI MRI Lumbar Spine 04/26/22 Chas Modi PA-C Last Documented On 2 1:06PM ; [facility], [facility] Future Appointments Date Time Location Provi tahira Post Op 07/19/2025 11:00AM 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 - Last Documented On 01/28/2025 11:48AM ; [facility] Instructions Includes: Instructions from this encounter Instructions to patient Lose weight Last Documented On 5 10:49AM ; [facility] Medical Equipment - Implanted Devices Includes: Current Devices No Medical Equipment Recorded Medications Includes: Medications discussed during this encounter and other current Medications New / Renewed during this visit Holden Modi PA-C on 01/07/2025 Clindamycin HCl 300 MG Oral Capsule Provider: Holden Modi PA-C 2 day supply: 21 capsule, 0 refills Diagnosis: take 2 pills, 3 three times a day Pharmacy: [id number] [address] , [facility], [id number] - Last Documented On 5 11:06AM By Quentin Burk ; [facility] Current Medications (continue as prescribed) Percocet 5-325 MG Oral Tablet 07/03/2025 - 07/18/2025 Provider: Issa Rodriguez MD Diagnosis: 1 po q 4h prn pain Last Documented On 5 8:39AM By Issa Rodriguez ; [facility] Clindamycin HCl 300 MG Oral Capsule 01/07/2025 Provi tahira: Holden Modi PA-C Diagnosis: Last Documented On 5 10:36AM By Quentin Burk ; [facility], [facility] oxyCODONE-Acetaminophen 5-325 MG Oral Tablet Provider: Issa Rodriguez MD Diagnosis: Last Documented On 5 9:50AM By Quentin Burk ; [facility], [facility] Pantoprazole Sodium 40 MG Or al Tablet Delayed Release 12/09/2024 Provider: Maya Torres MEASUREMENT AND SENSING TECHNICIAN Diagnosis: Last Documented On 5 9:50AM By Quentin Burk ; [facility], [facility] LORazepam 1 MG Oral Tablet 12/04/2024 Provider: Nancy Torres MEASUREMENT AND SENSING TECHNICIAN Diagnosis: Last Documented On 5 9:50AM By Quentin Burk ; [facility], [facility] Doxycycline Hyclate 100 MG Oral Capsule 12/04/2024 P padminider: Diagnosis: Last Documented On 5 9:50AM By Quentin Burk ; [facility], [facility] sulfaSALAzine 500 MG Oral Tablet 11/27/2024 Provider : Maya Torres MEASUREMENT AND SENSING TECHNICIAN Diagnosis: Last Documented On 5 9:50AM By Quentin Burk ; [facility], [facility] Albuterol Sulfate HFA 108 (9 0 Base) MCG/ACT Inhalation Aerosol Solution 11/07/2024 Provider: Maya anderson MEASUREMENT AND SENSING TECHNICIAN Diagnosis: Last Documented On 5 9:50AM By Quentin Burk ; [facility], [facility] Finasteride 5 MG Oral Tablet 11/03/2024 Provider: Maya Torres MEASUREMENT AND SENSING TECHNICIAN Diagnosis: Last Documented On 5 9:50AM By Quentin Burk ; [facility], [facility] Tamsulosin HCl 0.4 MG Oral Capsule 11/03/2024 Provid er: Maya Torres MEASUREMENT AND SENSING TECHNICIAN Diagnosis: Last Documented On 5 3:49PM By Marifer Nuñez ; [facility], [facility] Amoxicillin 875 MG Oral Tablet 09/11/2024 Provider: Diagnosis: Last Documented On 5 9:50AM By Quentin Burk ; [facility], [facility] predniSONE 10 MG Oral Tablet 03/11/2021 Provider: Jarek Muñiz DO Diagnosis: Last Documented On 8:34AM By Deborah Lowery ; [facility], [facility] Amoxicillin 500 MG Oral Capsule 03/11/2021 Provider: Jarek Muñiz DO Diagnosis: Last Documented On 8:34AM By Deboarh Lowery ; [facility] Cephalexin 500 MG Oral Capsule 03/10/2021 Provider: Diagnosis: Last Documented On 8:34AM By Deborah Lowery ; [facility], [facility] HYDROcodone-Acetaminophen 5-325 MG Oral Tablet 021 Provider: Diagnosis: Last Documented On 8:34AM By Deborah Lowery ; [facility], [facility] Gabapentin 300 MG Oral Capsule 03/06/2021 Provider: Diagnosis: Last Documented On 8:34AM By Deborah Lowery ; [facility], [facility] LORazepam 1 MG Oral Tablet 03/06/2021 Provider: Diagnosis: Last Documented On 8:34AM By Deborah Lowery ; [facility], [facility] Esomeprazole Magnesium 40 MG Oral Capsule Delayed Rele ase 03/04/2021 Provider: Diagnosis: Last Documented On 8:34AM By Deborah Lowery ; [facility], [facility] Esomeprazole Magnesium 40 MG Oral Capsule Delayed Rele ase 03/04/2021 Provider: Diagnosis: Last Documented On 8:34AM By Deborah Lowery ; [facility], [facility] Fluticasone Propionate 50 MCG/ACT Nasal Suspension Provider: Diagnosis: Last Documented On 8:35AM By Deborah Lowery ; [facility], [facility] Past Medications on file Clindamycin HCl 300 MG Oral Capsule 12/28/2024 - 01/08/2025 Provider: Holden Steiner Diagnosis: three times a day Last Documented On 5 10:10AM By Quentin Burk ; [facility], [facility] Percocet 5-325 MG Oral Tablet 12/19/2024 - 01/03/2025 Provider: Issa Rodriguez MD Diagnosis: 1 po q 4h prn pain Last Documented On 5 8:40AM By Issa Rodriguez ; [facility], [facility] Losartan Potassium 100 MG Oral Tablet 12/05/2024 - Provider: Diagnosis: Last Documented On 3:50PM By Marifer Nuñez ; [facility] DULoxetine HCl 60 MG Oral Ca psule Delayed Release Particles 12/05/2024 - 03/05/2025 Provider: Diagnosis: Last Documented On 3:49PM By Marifer Nuñez ; [facility] Montelukast Sodium 10 MG Oral Tablet 12/05/2024 - 02/15 Provider: Diagnosis: Last Documented On 3:49PM By Marifer Nuñez ; [facility], [facility] Medications Administered Includes: Administered Medications from this encounter No Administered Medications Recorded Vital Signs Includes: Vital Signs from this encounter Vital Name 01/07/2025 11:15A 01/07/2025 10: 50A Temp-Oral (F) 97.5 Height (in) 69 Weight (lb) 250 Body Mass Index 36.9 Body Surface Area 2.3 Pain Level 2 Last Documented: On 01/07/2025 11:15A M ; [facility] On 01/07/2025 10:50AM ; [facility] Results Includes: Results discussed during this encounter No Results Recorded For Specified Dates History of Present Illness Includes: History of Present Illness from this encounter HPI Stephane Mendieta is a 74 year old male. - Allergy list reviewed - Problem list reviewed - Medication list reviewed - No previous treatment. - Review of medications documented Follow up on his spinal cord stimulator replacement with paddles systems 12/20/23 still noticing with the battery mainly a clear serous drainage. He is not having any pain has not any fevers Social History Description Last Updated Tobacco non-user 04/22/2022 Last Documented On 5 10:49AM ; [facility] No recent change in diet 04/22/2022 Last Documented On 5 10:49AM ; [facility] Not a current smoker. 04/22/2022 Last Documented On 5 10:49AM ; [facility] Non-smoker 03/12/2021 Last Documented On 5 10:49AM ; [facility] No tobacco use 04/05/2019 Last Documented On 5 10:49AM ; [facility], [facility] Smoking status : Never smoker 04/05/2019 Last Documented On 5 10:49AM ; [facility] Caffeine use 04/05/2019 Last Documented On 5 10:49AM ; [facility], [facility] No recent change in diet 04/05/2019 Last Documented On 5 10:49AM ; [facility] Not a current smoker 04/05/2019 Last Documented On 5 10:49AM ; [facility] Not exercising regularly 04/05/2019 Last Documented On 5 10:49AM ; [facility] Not using alcohol 04/05/2019 Last Documented On 5 10:49AM ; [facility], [facility] Not using drugs 04/05/2019 Last Documented On 5 10:49AM ; [facility], [facility] Sex - Male 07/05/2025 Last Documented On 5 2:08PM ; [facility], [facility] Procedures and Surgical History Surgical History Last Updated History of hernia repair 04/05/2019 Last Documented On 5 10:49AM ; [facility], [facility] Medical History Includes: Medical History addressed during this encounter Description Last Updated No recent immunization for flu Last Documented On 5 10:49AM ; [facility], [facility] No recent immunization for pneumococcal pneumonia 03/12/2021 Last Documented On 5 10:49AM ; [facility], [facility] cataracs 04/05/2019 Last Documented On 5 10:49AM ; [facility], [facility] Arthritic joint problems 04/05/2019 Last Documented On 5 10:49AM ; [facility], [facility] Intermittent hypertension 04/05/2019 Last Documented On 5 10:49AM ; [facility], [facility] Family History Includes: Family History addressed during this encounter Description Last Updated Family history of cancer 04/05/2019 Last Documented On 5 10:49AM ; [facility], [facility] Family history of hypertension 9 Last Documented On 10:49AM ; [facility] Review of Systems Includes: Review of [...] encounter Description Anxiety Last Documented On 5 10:49AM ; [facility] Physical Exam Includes: Physical Exam from this encounter Allergies Includes: Active Allergies No Known Allergies Care Revenue Field Auditor Name (Identifier) Role/Relation Location/Telecom Last Documented By Domingo Billingsley MD ([id number]) Assigned practitioner (occupation) tel: Last Documented On 07/05/2025 2:08PM ; [facility] Olga Lieca APRN ([id number]) [address] [place] [address], [id number] tel: Last Documented On 04/05/2019 9:06AM ; [facility] Encounters Encounter Provider Location (Healthcare Service Location) Date Check-In Time Check-Out Time Diagnosis Encounter Disposition Post Op Holden Modi PA-C [facility] 2024 10:33AM 11:15AM Overweight Payer Includes: Active Insurance Policies Plan Name (Payer ID) Coverage Type Member ID Group # Subscriber (ID) Relationship Effective Dates 1 - Medicare Part B [facility] ([id number]) [id number] Stephane Mendieta Self (Checked on 06/03/2025) Last Documented On 9 7:57AM ; [facility], [facility] 2 - [employer] [facility] [id number] Stephane Mendieta Self 09/15/2017 - Unknown Last Documented On 9 8:40AM ; [facility], [facility] Clinical Notes Includes: Clinical Notes from this encounter * Progress note Date Encounter Last Documented by 01/07/2025 Post Op Last documented on 01/28/2025; 11:48 AM, Holden Modi PA-C; [facility], [facility] Active Problems & Conditions - History of [...] previous treatment. - Review of medications documented Follow up on his spinal cord stimulator replacement with paddles systems 12/20/23 still noticing with the battery mainly a clear serous drainage. He is not having any pain has not any fevers Current Medication - Albuterol Sulfate HFA [...] allergic reaction. 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 use of tobacco assessment performed. - Lose weight Plan StartCited - Other Clindamycin HCl 300 MG capsule take 2 pills, 3 three times a day, 2 days, 0 refills EndCited Patient screened for future fall risk: documentation of any fall with injury in past year. Patient was seen by myself Holden Modi PA-C. Patient will follow up 1 week we are going to keep him on clindamycin we will take the geronimo out of all the incisions today and recheck this in a week Notes This dictation was done with voice recognition software and may contain errors and omissions. Care Team - Olga Licea APRN - VAT CLEANER
--- OUTSIDE RECORDS SUMMARY | 2025-07-06 10:21 | XMS_ITS | Encounter Summary ---
Author Organization [employer] ([place], [place], [place], [place], [place]) Address [address] [place] [address] Care Team Providers Care Landscaping Manager Name Role Phone Maya Torres Reji BELCHER Primary Care Provider [phone] Encounter Details Date Type Department Care Team (Late st Contact Info) Description 10/18/2020 Transcribed Document [facility] Family [place] [facility] [place] [address] ProviderJean MD [address] [place] [address] Social History Tobacco Use Types Packs/Day Years Used Date Smoking Tobacco: Never Assessed Sex and Gender Information Value Date Recorded Sex Assigned at Not on file Legal Sex Male 5:19 PM CDT Gender Identity Not on file Sexual Orientation Not on file documented as of this encounter Miscellaneous Notes * Cerner Conversion Note - Jean Sawant MD - 10/18/2020 9:38 PM CDT [facility] [place], [place] [id number] ISATU MENDIETA :1950 Visit Time:10/18/2020 Your Visit Summary Your Care Team Primary Provider: ROGER SONG PA-C Secondary Provider: Your Diagnosis Herniation of left lung Intercostal muscle tear Rib/trunk pain-swelling Medical Information You may obtain a copy [...] do next Follow-Up Appointments Follow Up with PADMINI GALLAGHER When Within 2 to 3 days Comments Call for follow-up appointment to be evaluated by cardiothoracic surgery. Take medications as prescribed. Return to ED if symptoms worsen. Where: [address] [facility] [address] [place] [address] Business (1) Follow Up with JACKIE LEONARD When Within 2 to 3 days Allergies No Known Medication Allergies Immunizations This Visit No Immunizations Found Medications What How Much When Instructions Next Dose codeine-guaifenesin (codeine-guaifenesin 6.3 mg-100 mg/ 5 mL oral liquid) 7.5 Milliliter(s) Oral Every 6 Hours as needed for for cough Pickup at [facility] dextromethorphan-guaifenesin (dextromethorphan-guaifenesin 5 mg-100 mg/ 5 mL [...] 24HR 55 mcg/ inh nasal spray) 1 Nash(s) Nasal Two Times A Day Pharmacy Information [facility]: [address] [place], [place] [id number] [phone] The home medications listed are only as [...] This Visit (last charted value for your 10/18/2020 visit) Computed Tomography 10/18/2020 7:[address] Chest WO: CT Chest WO Education Materials Chest Wall Pain Chest wall pain is pain in or around the bones and muscles of your chest. Sometimes, an injury causes this pain. Excessive coughing or overuse of arm and chest muscles may also cause chest wall pain. Sometimes, the cause may not be known. This pain may take several weeks or longer to get better. Follow these instructions at home: Managing pain, stiffness, and swelling ??? If directed, put ice on the painful area: ? Put ice in a plastic bag. ? Place a towel between your skin and the bag. ? Leave the ice on for 20 minutes, 2???3 times per day. Activity ??? Rest as told by your health care provider. ??? Avoid activities that cause pain. These include any activities that use your chest muscles or your abdominal and side muscles to lift heavy items. Ask your health care provider what activities are safe for you. General instructions ??? Take [id number]-[id number] and prescription medicines only as told by your health care provider. ??? Do not use any products that contain nicotine or tobacco, such as cigarettes, e-cigarettes, and chewing tobacco. These can delay healing after injury. If you need help quitting, ask your health care provider. ??? Keep all follow-up visits as told by your health care provider. This is important. Contact a health care provider if: ??? You have a fever. ??? Your chest pain becomes worse. ??? You have new symptoms. Get help right away if: ??? You have nausea or vomiting. ??? You feel sweaty or light-headed. ??? You have a cough with mucus from your lungs (sputum) or you cough up blood. ??? You develop shortness of breath. These symptoms may represent a serious problem that is an emergency. Do not wait to see if the symptoms will go away. Get medical help right away. Call your local emergency services (911 in the [place] Do not drive yourself to the hospital. Summary ??? Chest wall pain is pain in or around the bones and muscles of your chest. ??? Depending on the cause, it may be treated with ice, rest, medicines, and avoiding activities that cause pain. ??? Contact a health care provider if you have a fever, worsening chest pain, or new symptoms. ??? Get help right away if you feel light-headed or you develop shortness of breath. These symptoms may be an emergency. This information is not intended to replace advice given to you by your health care provider. Make sure you discuss any questions you have with your health care provider. Document Revised: 01/04/2019 Document Reviewed: 01/04/2019 [employer] Patient Education ?? 2020 [employer] Emergency Awareness and Preventative Care STROKE is [...] Assistance with quitting is available by contacting 3-278-IIOP-NOW. This is a free resource providing counseling, [...] was given the opportunity to ask questions. Patient/Electronic Assembler Group Leader Name: Patient/Electronic Assembler Group Leader Signature: Relationship to Patient: Clinician/Hospital Electronic Assembler Group Leader Signature: Please Provide a Telephone Number Where You Can Be Reached: Is it Permissible To Leave a Message? Date: documented in this encounter Plan of Treatment Not on file documented as of this encounter Visit Diagnoses Not on filedocumented in this encounter Care Teams Landscaping Manager Relationship Specialty Start Date End Date Maya Torres, SIMI [address] [id number] PCP - General Family Medicine 08/27/22 documented as of this encounter
--- OUTSIDE RECORDS SUMMARY | 2025-07-06 10:21 | XMS_ITS | Encounter Summary ---
Author Organization [employer] [facility] ([place], [place], [place], [place], [place]) Address [address] [place] [address] Care Team Providers Care Section Laborer Name Role Phone Maya Torres SIMI Primary Care Provider [phone] Encounter Details Date Type Department Care Team (Late st Contact Info) Description 10/18/2020 Transcribed Document [facility] [place] [facility] [address] [place] [address] ProviderJean MD [address] [place] [place], [place] [address] Social History Tobacco Use Types Packs/Day Years Used Date Smoking Tobacco: Never Assessed Sex and Gender Information Value Date Recorded Sex Assigned at Not on file Legal Sex Male 5:19 PM CDT Gender Identity Not on file Sexual Orientation Not on file documented as of this encounter Miscellaneous Notes * Cerner Conversion Note - Jean ProviderMD - 10/18/2020 7:05 PM CDT ED Assessment Entered On: 10/18/2020 19:42 EDT Performed On: 10/18/2020 19:41 EDT by Dee Ocampo RN ED Quick Look Assessment Level of Consciousness : Alert, Awake Affect/Behavior : Appropriate, Calm, Cooperative Orientation : Oriented x 4 Skin Temperature : Warm Dee Ocampo RN - 10/18/2020 19:41 EDT ED General-Functional Assess Information Obtained From : Patient Preferred Communication Mode : Verbal Communication Barrier : None Primary Language : Croatian Any Spiritual/Cultural Needs or Requests : No Currently in Unsafe Situation : No Dee Ocampo RN - 10/18/2020 19:41 EDT Social Habits Smoking Status : Former smoker, quit more than 30 days ago Smokeless Tobacco Status : Never Desires Tobacco Cessation Calc : 0 Dee Ocampo RN - 10/18/2020 19:41 EDT Social History (As Of: 10/18/2020 19:42:31 EDT) Tobacco: Former smoker, quit more than 30 days ago Smoking Status. Never Smokeless Tobacco Status. Last Used: quit 10 yr ago. (Last Updated: 06/16/2018 08:14:43 EST by Shavonne Jimenez, HOLA) Alcohol: Alcohol Use History Yes. Alcohol Use Frequency Rarely. (Last Updated: 06/16/2018 08:14:43 EST by Shavonne Jimenez, HOLA) Substance Abuse: Drug Use Hx: No. (Last Updated: 06/16/2018 08:14:43 EST by Shavonne Jimenez, HOLA) Nutrition/Health: Regular (Last Updated: 06/16/2018 08:14:43 EST by Shavonne Jimenez, HOLA) Cardiovascular ASMT, ED Cardiovascular Assessment WDL : WDL Dee Ocampo RN - 10/18/2020 19:41 EDT Respiratory Respiratory Assessment WDL : WDL Dee Ocampo RN - 10/18/2020 19:41 EDT Musculoskeletal Musculoskeletal Assessment WDL : WDL with exceptions (Comment: Pt has pain to the left chest wall, states around his ribs under his arm it feels like he has pulled a muscle or something. [Dee Ocampo RN - 10/18/2020 19:41 EDT] ) Dee Ocampo RN - 10/18/2020 19:41 EDT documented in this encounter Plan of Treatment Not on file documented as of this encounter Visit Diagnoses Not on filedocumented in this encounter Care Teams Section Laborer Relationship Specialty Start Date End Date Maya Torres, DIRECTOR OF COMMUNITY SERVICES [address] [id number] PCP - General Family Medicine 08/27/22 documented as of this encounter
--- OUTSIDE RECORDS SUMMARY | 2025-07-06 10:21 | XMS_ITS ---
Author Organization [facility] Address [address] [place] [address] Phone Care Team Providers Care Inside Polisher Name Role Phone Jose Cruz COLEMAN, Domingo Jett Unavailable [phone] Olga Licea APRN Unavailable [phone] Reason for Referral 11/29/2024 Encounter for Follow Up Date Recorded Target Due Date Referral Type Referring Prov ider Reason For Referral 11/29/2024 Issa Rodriguez MD See PCP for BP Last Documented On 5 3:07PM ; [facility], [facility] 11/29/2024 Issa Rodriguez MD referral to physician Last Documented On 5 3:07PM ; [facility] 04/22/2022 Encounter for Follow Up Date Recorded Target Due Date Referral Type Referring Prov ider Reason For Referral 04/22/2022 Issa Rodriguez MD See PCP for BP Last Documented On 2 10:14AM ; [facility], [facility] 05/02/2022 Issa Rodriguez MD referral to physician Last Documented On 2 10:49AM ; [facility], [facility] 04/12/2022 Encounter for Follow Up Date Recorded Target Due Date Referral Type Referring Prov ider Reason For Referral 04/12/2022 Holden Modi PA-C See PC P for BP Last Documented On 2 9:57AM ; [facility], [facility] 04/07/2021 Encounter for Follow Up Date Recorded Target Due Date Referral Type Referring Prov ider Reason For Referral 04/07/2021 Charles Hernandez MD See PCP for BP Last Documented On 1 8:13AM ; [facility] 03/12/2021 Encounter for Physician Specified Date Recorded Target Due Date Referral Type Referring Prov ider Reason For Referral 03/12/2021 Charles Hernandez MD See PCP for BP Last Documented On 1 8:43AM ; [facility], [facility] Problems Includes: Active, inactive, and resolved Problems All Visits Onset Date Date of Diagnosis Resolved Date Provider Condition Status Soft Tissue Pain Hand 12/05/2024 12/05/2024 Flako Puldio PA-C Active Last Documented On 5 1:43AM ; [facility] History of Lower Back Pain M idline Right Side 04/12/2022 04/12/2022 Holden Modi PA-C Active Last Documented On 5 1:41AM ; [facility] Joint Pain Left Thumb 03/12/2021 03/12/2021 Charles Hernandez MD Active Last Documented On 5 1:40AM ; [facility], [facility] Joint Pain in Both Knees 04/05/2019 04/05/2019 [facility] zachary Billingsley MD Active Last Documented On 5 1:39AM ; [facility], [facility] Plan of Treatment Findings Encounter Date Patient screened for future fall risk: documentation of any fall with injury in past year Follow Up with Issa Rodriguez MD 06/06/2025 Last Documented On 5 8:58AM ; [facility], [facility] Patient screened for future fall risk: documentation of any fall with injury in past year Post Op with Holden Modi PA-C 01/14/2025 Last Documented On 5 10:36AM ; [facility], [facility] Patient screened for future fall risk: documentation of any fall with injury in past year Post Op with Holden Modi PA-C 01/07/2025 Last Documented On 5 10:49AM ; [facility], [facility] Patient screened for future fall risk: documentation of any fall with injury in past year Post Op with Holden Modi PA-C 12/28/2024 Last Documented On 5 9:50AM ; [facility] Patient screened for future fall risk: documentation of any fall with injury in past year IN HOUSE REFERRAL with Flako Pulido PA-C 12/05/2024 Last Documented On 5 2:27PM ; [facility] Pending Tests Order Diagnosis Results Due Ordering P rovider Radiology - MRI MRI Lumbar Spine 04/26/22 Chas Modi PA-C Last Documented On 2 1:06PM ; [facility] Future Appointments Date Time Location Provi tahira Post Op 07/19/2025 11:00AM [facility] ELY SHOSHONEIrais Modi PA-C Last Documented On 5 10:29AM ; [facility] Instructions to patient Lose weight Last Documented On 5 8:58AM ; [facility] Lose weight Last Documented On 5 10:36AM ; [facility] Lose weight Last Documented On 5 10:49AM ; [facility] Lose weight Last Documented On 5 9:50AM ; [facility] Lose weight Last Documented On 5 2:27PM ; [facility] Lose weight Last Documented On 5 3:07PM ; [facility] Lose weight Last Documented On 2 10:14AM ; [facility] Lose weight Last Documented On 2 9:57AM ; [facility] Lose weight Last Documented On 1 8:13AM ; [facility] Lose weight Last Documented On 1 8:43AM ; [facility] Instructions for patient SEE PCP FOR BP AND WT Last Documented On 0 11:13AM ; [facility] Instructions for patient Last Documented On 0 3:05PM ; [facility] Instructions for patient Last Documented On 0 1:32PM ; [facility] Instructions for patient to see pcp for bp Last Documented On 0 1:48PM ; [facility] Instructions for patient to see pcp for bp Last Documented On 9 3:13PM ; [facility] Instructions for patient to see pcp for bp Last Documented On 9 2:58PM ; [facility] Instructions for patient to see pcp for bp Last Documented On 9 9:14AM ; [facility] Assessments Includes: Assessments for all patient encounters Findings Encounter Date Overweight Follow Up with Issa Rodriguez MD 06/06/2025 Last Documented On 5 8:58AM ; [facility] Overweight Post Op with Holden Modi PA-C 01/14/2025 Last Documented On 5 10:36AM ; [facility] Overweight Post Op with Holden Modi PA-C 01/07/2025 Last Documented On 5 10:49AM ; [facility] Overweight Post Op with Holden Modi PA-C 12/28/2024 Last Documented On 5 9:50AM ; [facility] Overweight IN HOUSE REFERRAL with Flako youssef PA-C 12/05/2024 Last Documented On 5 2:27PM ; [facility] Instructions Includes: Instructions for all patient encounters Instructions to patient Lose weight Last Documented On 5 8:58AM ; [facility] Lose weight Last Documented On 5 10:36AM ; [facility] Lose weight Last Documented On 5 10:49AM ; [facility] Lose weight Last Documented On 5 9:50AM ; [facility] Lose weight Last Documented On 5 2:27PM ; [facility] Lose weight Last Documented On 5 3:07PM ; [facility] Lose weight Last Documented On 2 10:14AM ; [facility] Lose weight Last Documented On 2 9:57AM ; [facility] Lose weight Last Documented On 1 8:13AM ; [facility] Lose weight Last Documented On 1 8:43AM ; [facility] Instructions for patient SEE PCP FOR BP AND WT Last Documented On 0 11:13AM ; [facility] Instructions for patient Last Documented On 0 3:05PM ; [facility] Instructions for patient Last Documented On 0 1:32PM ; [facility] Instructions for patient to see pcp for bp Last Documented On 0 1:48PM ; [facility] Instructions for patient to see pcp for bp Last Documented On 9 3:13PM ; [facility] Instructions for patient to see pcp for bp Last Documented On 9 2:58PM ; [facility], [facility] Instructions for patient to see pcp for bp Last Documented On 9 9:14AM ; [facility], [facility] Medical Equipment - Implanted Devices Includes: Current and historical Devices No Medical Equipment Recorded Medications Includes: Current and historical Medications Current Medications (continue as prescribed) Percocet 5-325 MG Oral Tablet 07/03/2025 - 07/18/2025 Provider: Issa Rodriguez MD Diagnosis: 1 po q 4h prn pain Last Documented On 5 8:39AM By Issa Rodriguez ; [facility], [facility] Clindamycin HCl 300 MG Oral Capsule 01/07/2025 Provi tahira: Holden Modi PA-C Diagnosis: Last Documented On 5 10:36AM By Quentin Burk ; [facility], [facility] oxyCODONE-Acetaminophen 5-325 MG Oral Tablet 5 Provider: Issa Rodriguez MD Diagnosis: Last Documented On 5 9:50AM By Quentin Burk ; [facility], [facility] Pantoprazole Sodium 40 MG Or al Tablet Delayed Release 12/09/2024 Provider: Maya Torres WHIP SAWYER Diagnosis: Last Documented On 5 9:50AM By Quentin Burk ; [facility], [facility] LORazepam 1 MG Oral Tablet 12/04/2024 Provider: Nancy Torres WHIP SAWYER Diagnosis: Last Documented On 5 9:50AM By Quentin Burk ; [facility], [facility] Doxycycline Hyclate 100 MG Oral Capsule 12/04/2024 Papito mccallum: Diagnosis: Last Documented On 5 9:50AM By Quentin Burk ; [facility] sulfaSALAzine 500 MG Oral Tablet 11/27/2024 Provider : Maya Torres WHIP SAWYER Diagnosis: Last Documented On 5 9:50AM By Quentin Burk ; [facility] Albuterol Sulfate HFA 108 (9 0 Base) MCG/ACT Inhalation Aerosol Solution 11/07/2024 Provider: Maya anderson WHIP SAWYER Diagnosis: Last Documented On 5 9:50AM By Quentin Burk ; [facility] Finasteride 5 MG Oral Tablet 11/03/2024 Provider: Maya Torres WHIP SAWYER Diagnosis: Last Documented On 5 9:50AM By Quentin Burk ; [facility] Tamsulosin HCl 0.4 MG Oral Capsule 11/03/2024 Provid er: Maya Torres WHIP SAWYER Diagnosis: Last Documented On 5 3:49PM By Marifer Nuñez ; [facility], [facility] Amoxicillin 875 MG Oral Tablet 09/11/2024 Provider: Diagnosis: Last Documented On 5 9:50AM By Quentin Burk ; [facility] predniSONE 10 MG Oral Tablet 03/11/2021 Provider: Jarek Muñiz DO Diagnosis: Last Documented On 8:34AM By Deborah Lowery ; [facility] Amoxicillin 500 MG Oral Capsule 03/11/2021 Provider: Jarek Muñiz DO Diagnosis: Last Documented On 8:34AM By Deborah Lowery ; [facility] Cephalexin 500 MG Oral Capsule 03/10/2021 Provider: Diagnosis: Last Documented On 8:34AM By Deborah Lowery ; [facility] HYDROcodone-Acetaminophen 5-325 MG Oral Tablet Provider: Diagnosis: Last Documented On 8:34AM By Deborah Lowery ; [facility] Gabapentin 300 MG Oral Capsule 03/06/2021 Provider: Diagnosis: Last Documented On 8:34AM By Deborah Lowery ; [facility] LORazepam 1 MG Oral Tablet 03/06/2021 Provider: Diagnosis: Last Documented On 1 8:34AM By Deborah Lowery ; [facility] Esomeprazole Magnesium 40 MG Oral Capsule Delayed Rele ase 03/04/2021 Provider: Diagnosis: Last Documented On 8:34AM By Deborah Lowery ; [facility], [facility] Esomeprazole Magnesium 40 MG Oral Capsule Delayed Rele ase 03/04/2021 Provider: Diagnosis: Last Documented On 1 8:34AM By Deborah Lowery ; [facility], [facility] Fluticasone Propionate 50 MCG/ACT Nasal Suspension Provider: Diagnosis: Last Documented On 8:35AM By Deborah Lowery ; [facility] Past Medications on file Clindamycin HCl 300 MG Oral Capsule 01/07/2025 - 01/09/2025 Provider: Holden Steiner Diagnosis: take 2 pills, 3 three times a day Last Documented On 5 11:06AM By Quentin Burk ; [facility] Clindamycin HCl 300 MG Oral Capsule 12/28/2024 - 01/08/2025 Provider: Holden Steiner Diagnosis: three times a day Last Documented On 5 10:10AM By Quentin Burk ; [facility] Percocet 5-325 MG Oral Tablet 12/19/2024 - 01/03/2025 Provider: Issa Rodriguez MD Diagnosis: 1 po q 4h prn pain Last Documented On 5 8:40AM By Issa Rodriguez ; [facility] Losartan Potassium 100 MG Oral Tablet 12/05/2024 - Provider: Diagnosis: Last Documented On 5 3:50PM By Marifer Nuñez ; [facility], [facility] DULoxetine HCl 60 MG Oral Ca psule Delayed Release Particles 12/05/2024 - 03/05/2025 Provider: Diagnosis: Last Documented On 5 3:49PM By Marifer Nuñez ; [facility], [facility] Montelukast Sodium 10 MG Oral Tablet 12/05/2024 - 02/15 Provider: Diagnosis: Last Documented On 5 3:49PM By Marifer Nuñez ; [facility], [facility] Losartan Potassium 100 MG Oral Tablet 03/03/2021 - Provider: Diagnosis: Last Documented On 5 3:50PM By Marifer Nuñez ; [facility], [facility] Montelukast Sodium 10 MG Oral Tablet 02/16/2021 - 11/16 Provider: Diagnosis: Last Documented On 5 3:49PM By Marifer Nuñez ; [facility], [facility] DULoxetine HCl 60 MG Oral Ca psule Delayed Release Particles 02/16/2021 - 12/05/2024 Provider: Diagnosis: Last Documented On 5 3:49PM By Marifer Nuñez ; [facility], [facility] Percocet 5-325 MG OR TABS 10/05/2019 - 03/12/2021 Prov ider: Issa Rodriguez MD Diagnosis: prn pain Last Documented On 1 8:36AM By Deborah Lowery ; [facility], [facility] Dilaudid 2 MG Oral Tablet 05/02/2019 - 03/12/2021 Provider: Domingo tan MD Diagnosis: 1-2 po q6h prn pain (RESCUE PAIN) DO NOT FILL TILL 05/04/2019 FOR SURGERY Last Documented On 1 8:36AM By Deborah Lowery ; [facility], [facility] Neurontin 300 MG Oral Capsule 05/02/2019 - 03/12/2021 Provider: Domingo tan MD Diagnosis: 1 every bedtime DO NOT SELVIN L TILL 05/04/2019 FOR SURGERY Last Documented On 1 8:36AM By Deborah Lowery ; [facility], [facility] traMADol HCl 50 MG Oral Tablet 05/02/2019 - 03/12/2021 Provider: Domingo tan MD Diagnosis: 1-2 po q6h prn pain DO NOT FILL TILL 05/04/2019 FOR SURGERY Last Documented On 1 8:35AM By Deborah Lowery ; [facility], [facility] oxyCODONE HCl 5 MG Oral Tablet 05/02/2019 - 03/12/2021 Provider: Domingo tan MD Diagnosis: 1-2 po q6h prn pain DO NOT FILL TILL 05/04/2019 FOR SURGERY Last Documented On 1 8:36AM By Deborah Lowery ; [facility] Zofran 4 MG Oral Tablet 05/02/2019 - 03/12/2021 Provid er: Domingo Billingsley MD Diagnosis: [id number] DO NOT FILL TILL 05/04/2019 FOR SURGERY Last Documented On 1 8:35AM By Deborah Lowery ; [facility] Keflex 500 MG Oral Capsule 05/02/2019 - 03/12/2021 Provider: Domingo tan MD Diagnosis: 1 every 6 hours DO NOT SELVIN L TILL 05/04/2019 FOR SURGERY Last Documented On 1 8:36AM By Deborah Lowery ; [facility] Acetaminophen 500 MG Oral Tablet 05/02/2019 - 03/12/2021 Provider: Domingo Billingsley MD Diagnosis: 2 three times a day DO NOT FILL TILL 05/04/2019 FOR SURGERY Last Documented On 1 8:36AM By Deborah Lowery ; [facility] Colace 100 MG Oral Capsule 05/02/2019 - 03/12/2021 Provider: Domingo tan MD Diagnosis: 1-2 tabs daily DO NOT FILL TILL 05/04/2019 FOR SURGERY Last Documented On 1 8:36AM By Deborah Lowery ; [facility], [facility] Mobic 15 MG Oral Tablet 05/02/2019 - 03/12/2021 Provid er: Domingo Billingsley MD Diagnosis: once a day DO NOT FILL TIL L 05/04/2019 FOR SURGERY Last Documented On 1 8:36AM By Deborah Lowery ; [facility] Mupirocin 2% External Ointment 04/09/2019 - 03/12/2021 Provider: Domingo tan MD Diagnosis: Apply to nostrils 3 times a day 5 days prior to surgery. Last Documented On 1 8:35AM By Deborah Lowery ; [facility] Gabapentin 300MG Oral Capsule 04/05/2019 - 03/12/2021 Provider: Diagnosis: Last Documented On 1 8:35AM By Deborah Lowery ; [facility], [facility] HM Loratadine 10MG Oral Tablet 04/05/2019 - 03/12/2021 Provider: Diagnosis: Last Documented On 1 8:35AM By Deborah Lowery ; [facility], [facility] sulfaSALAzine 500MG Oral Tablet 03/24/2019 - Provider: Olga Licea WHIP SAWYER Diagnosis: Last Documented On 1 8:35AM By Deborah Lowery ; [facility], [facility] Losartan Potassium 100MG Ora l Tablet 03/05/2019 - 03/12/2021 Provider: Olga Lozano PRN Diagnosis: Last Documented On 8:35AM By Deborah Lowery ; [facility], [facility] Montelukast Sodium 10MG Oral Tablet 03/04/2019 - 03/12/2021 Provider: Ogla Lozano PRN Diagnosis: Last Documented On 8:35AM By Deborah Lowery ; [facility], [facility] Tamsulosin HCl 0.4MG Oral Capsule 03/04/2019 - 03/12/2021 Provider: Olga Lozano PRN Diagnosis: Last Documented On 8:35AM By Deborah Lowery ; [facility], [facility] LORazepam 1MG Oral Tablet 02/22/2019 - 03/12/2021 Prov ider: Olga Licea WHIP SAWYER Diagnosis: Last Documented On 8:35AM By Deborah Lowery ; [facility], [facility] DULoxetine HCl 60MG Oral Capsule Delayed Release Particles 02/09/2019 - 03/12/2021 Provider: Olga Lozano PRN Diagnosis: Last Documented On 1 8:35AM By Deborah Lowery ; [facility], [facility] Finasteride 5MG Oral Tablet 01/21/2019 - 03/12/2021 Pr ovider: Olga Licea WHIP SAWYER Diagnosis: Last Documented On 1 8:35AM By Deborah Lowery ; [facility], [facility] traZODone HCl 150MG Oral Tablet 01/21/2019 - Provider: Olga Licea WHIP SAWYER Diagnosis: Last Documented On 8:35AM By Deborah Lowery ; [facility] Omeprazole 20MG Oral Tablet Delayed Release 12/07/2018 - 03/12/2021 Provider: ANDREA Abbott II, MD Diagnosis: Last Documented On 8:35AM By Deborah Lowery ; [facility] Medications Administered Includes: Administered Medications in patient's chart No Administered Medications Recorded Vital Signs Includes: Vital Signs from 07/06/2024 through 07/06/2025 Vital Name 06/06/2025 09:02A 01/14/2025 10:36A 01/07/2025 11:15A 01/07/2025 10:50A 12/28/2024 09:51A Height (in) 69 69 69 69 Weight (lb) 252 250 250 250 Body Mass Index 37.2 36.9 36.9 36.9 Body Surface Area 2.3 2.3 2.3 2.3 Pain Level 5 3 2 Temp-Oral (F) 97.5 Last Documented: On 06/06/2025 9:02AM ; [facility] On 01/14/2025 10:36AM ; [facility], [facility] On 01/07/2025 11:15AM ; [facility], [facility] On 01/07/2025 10:50AM ; [facility] On 12/28/2024 9:51AM ; [facility] Vital Name 12/05/2024 02:27P 11/29/2024 03: 21P Height (in) 69 68 Weight (lb) 250 250 Body Mass Index 36.9 38 Body Surface Area 2.3 2.2 Pain Level 8 Note: MCG Last Documented: On 12/05/2024 3:51PM ; [facility], [facility] On 11/29/2024 3:22PM ; [facility], [facility] Results Includes: Results from 07/06/2024 through 07/06/2025 No Results Recorded For Specified Dates Social History Description Last Updated Tobacco non-user 04/22/2022 Last Documented On 2 10:50AM ; [facility] No recent change in diet 04/22/2022 Last Documented On 2 10:50AM ; [facility] Not a current smoker. 04/22/2022 Last Documented On 2 10:50AM ; [facility] Non-smoker 03/12/2021 Last Documented On 1 8:44AM ; [facility] No tobacco use 04/05/2019 Last Documented On 9 10:53AM ; [facility], [facility] Smoking status : Never smoker 04/05/2019 Last Documented On 9 10:53AM ; [facility] Caffeine use 04/05/2019 Last Documented On 9 10:53AM ; [facility], [facility] No recent change in diet 04/05/2019 Last Documented On 9 10:53AM ; [facility], [facility] Not a current smoker 04/05/2019 Last Documented On 9 10:53AM ; [facility], [facility] Not exercising regularly 04/05/2019 Last Documented On 9 10:53AM ; [facility], [facility] Not using alcohol 04/05/2019 Last Documented On 9 10:53AM ; [facility], [facility] Not using drugs 04/05/2019 Last Documented On 9 10:53AM ; [facility], [facility] Sex - Male 07/05/2025 Last Documented On 5 2:08PM ; [facility], [facility] Procedures and Surgical History Includes: Procedures from 07/06/2024 through 07/06/2025 Procedures Code Diagnosis Performing Provider Service Location Service Date X-RAY EXAM OF TRUNK SPINE [address] Encntr for adjust and mgmt of implanted nervous sys device, Presence of neurostimulator Issa Rodriguez MD [facility] 06[facility]06/2025 Last Documented On 5 2:21PM ; [facility], [facility] Insertion or replacement of spinal neurostimulator pulse gen (Distinct procedure) [id number] Chronic pain syndrome Issa Rodriguez MD [facility] 12/19/2024 Last Documented On 5 5:16PM ; [facility], [facility] Revision including replacement, when [place] [id number] [facility] compl of implnt elec nstim of spinal cord lead, init Issa Rodriguez MD [facility] 12/19/2024 Last Documented On 5 5:16PM ; [facility] X-RAY EXAM OF FINGER(S) 2-3 VIEWS (Bilateral Procedure) [id number] Trigger finger, left middle finger, 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 [facility] 12/05/2024 Last Documented On 5 3:22PM ; [facility], [facility] Injection, betamethasone acetate 6mg per cc and betamethason J0702 Trigger finger, left middle finger, 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, r hand [facility] 12/05/2024 Last Documented On 5 3:22PM ; [facility] INJ TENDON SHEATH/LIGAMENT (LEFT HAND, THIRD DIGIT) 57636 Trigger finger, left middle finger [facility] 12/05/2024 Last Documented On 5 3:22PM ; [facility] DRAIN/INJECT, JOINT/BURSA (RIGHT) 16013 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, r hand [facility] 12/05/2024 Last Documented On 5 3:22PM ; [facility] X-RAY EXAM OF LOWER SPINE 2-3 VIEWS LIMITED 79266 Chronic pain syndrome Issa Rodriguez MD [facility] 11/29/2024 Last Documented On 5 11:33AM ; [facility] X-RAY EXAM OF THORACIC SPINE 2 VIEWS 27728 Chronic pain syndrome Issa Rodriguez MD [facility] 11/29/2024 Last Documented On 5 11:33AM ; [facility] Surgical History Last Updated History of hernia repair 04/05/2019 Last Documented On 9 10:53AM ; [facility], [facility] Medical History Includes: Medical History in patient's chart Description Last Updated No recent immunization for flu 1 Last Documented On 1 8:44AM ; [facility] No recent immunization for pneumococcal pneumonia 03/12/2021 Last Documented On 1 8:44AM ; [facility] cataracs 04/05/2019 Last Documented On 9 10:53AM ; [facility] Arthritic joint problems 04/05/2019 Last Documented On 9 10:53AM ; [facility] Intermittent hypertension 04/05/2019 Last Documented On 9 10:53AM ; [facility] Family History Includes: Family History in patient's chart Description Last Updated Family history of cancer 04/05/2019 Last Documented On 9 10:53AM ; [facility] Family history of hypertension 9 Last Documented On 9 10:53AM ; [facility] Mental Status Description Anxiety Last Documented On 5 8:58AM ; [facility] Anxiety Last Documented On 5 10:36AM ; [facility] Anxiety Last Documented On 5 10:49AM ; [facility] Anxiety Last Documented On 5 9:50AM ; [facility] Anxiety Last Documented On 5 2:27PM ; [facility] No anxiety Last Documented On 5 3:07PM ; [facility] No anxiety Last Documented On 2 10:16AM ; [facility] Anxiety Last Documented On 2 9:57AM ; [facility] Anxiety Last Documented On 1 8:55AM ; [facility] Anxiety Last Documented On 0 11:12AM ; [facility] Anxiety Last Documented On 0 3:05PM ; [facility] Anxiety Last Documented On 0 1:32PM ; [facility] Anxiety Last Documented On 0 1:48PM ; [facility] Anxiety Last Documented On 9 3:13PM ; [facility] Anxiety Last Documented On 9 2:58PM ; [facility] Anxiety Last Documented On 9 9:14AM ; [facility] Allergies Includes: Active, inactive, and resolved Allergies No Known Allergies Care Inside Polisher Name (Identifier) Role/Relation Location/Telecom Last Documented By Domingo Billingsley MD ([id number]) Assigned practitioner (occupation) tel:[phone] Last Documented On 07/05/2025 2:08PM ; [facility] Olga Licea WHIP SAWYER ([id number]) [address] [place] [address], [id number] tel: Last Documented On 04/05/2019 9:06AM ; [facility] Encounters Includes: Encounters from 07/06/2024 through 07/06/2025 Encounter Provider Location (Healthcare Service Location) Date Check-In Time Check-Out Time Diagnosis Encounter Disposition [Patient Encounter] Issa Rodriguez MD 202406/06/2025 8:31AM 06/06/2025 11:59PM Follow Up Issa Rodriguez MD [facility] 2024 8:53AM 10:11AM Overweight Post Op Holden Modi PA-C [facility] 2024 10:30AM 10:40AM Overweight Post Op Holden Modi PA-C [facility] 2024 10:33AM 11:15AM Overweight Post Op Holden Modi PA-C [facility] 2024 9:29AM 10:09AM Overweight [Patient Encounter] Issa Rodriguez MD 202412/05/2024 8:36AM 12/05/2024 11:59PM [facility] Issa Rodriguez MD Surgery 202412/23/2024 5:01PM 12/05/2024 11:59PM IN HOUSE REFERRAL Flako Pulido PA-C [facility] 2024 2:26PM 3:21PM Overweight Follow Up Issa Rodriguez MD [facility] 2024 3:04PM 3:32PM Payer Includes: Active Insurance Policies Plan Name (Payer ID) Coverage Type Member ID Group # Subscriber (ID) Relationship Effective Dates 1 - Medicare Part B [facility] ([id number]) [id number] Stephane Mendieta Self (Checked on 06/03/2025) Last Documented On 9 7:57AM ; [facility] 2 - [employer] Medicare Supplemen t Insurance [id number] Stephane Mendieta Self 09/15/2017 - Unknown Last Documented On 9 8:40AM ; [facility], [facility] Clinical Notes Includes: Signed Clinical Notes starting from 07/01/2022 * Progress note Date Encounter Last Documented by 06/06/2025 Follow Up Last documented on 06/11/2025; 1:20 PM, Issa Rodriguez MD; [facility], [facility] Active Problems & Conditions - [...] Care Team - Olga Licea APRN - SPECIAL INSPECTOR Health Reminders - Assess BMI satisfied 06/06/2025. - Assess Tobacco Use satisfied 04/05/2019. - Follow Up Plan BMI Management satisfied 06/06/2025. * Progress note Date Encounter Last Documented by 01/14/2025 Post Op Last documented on 01/14/2025; 10:41 AM, Holden Modi PA-C; [facility] Active Problems & Conditions - [...] Patient is here today for follow up of his replacement of the battery for spinal cord stimulator. The drainage has significantly slowed down with this is hardly draining at this point in time I did have him on antibiotic. His states over the last few days they have not noticed any drainage with this. Current Medication - Albuterol Sulfate HFA 108 [...] allergic reaction. Physical Findings - Vitals taken 01/14/2025 10:36 am Height 69 in Weight 250 lbs Body Mass Index 36.9 kg/m2 Body Surface Area 2.3 m2 Pain Level 3 The incision looks healed no significant active drainage no erythema Assessment - Overweight 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 December 19, 2024 Previous Tests Available previous imaging studies were reviewed Available previous history reviewed Counseling/Education Tobacco non-user. use of tobacco assessment performed. - Lose weight Plan Patient screened for future fall risk: documentation of any fall with injury in past year. Patient was seen by myself Holden Modi PA-C. Patient will follow up [address] Rodriguez we will finish out his antibiotic if something starts looking worse with the incision or starts draining more again then he is to let us know he can gradually start to do activities as tolerated. He can keep a dressing off of the incision at this point in time Notes This dictation was done with voice recognition software and may contain errors and omissions. Care Team - Olga Licea APRN - SPECIAL INSPECTOR * Progress note Date Encounter Last Documented by 01/07/2025 Post Op Last documented on 01/28/2025; 11:48 AM, Holden Modi PA-C; [facility], [facility] Active Problems & Conditions - [...] Care Team - Olga Licea APRN - SPECIAL INSPECTOR * Progress note Date Encounter Last Documented by 12/28/2024 Post Op Last documented on 12/28/2024; 12:21 PM, Holden Modi PA-C; [facility] Active Problems & Conditions - [...] Care Team - Olga Licea APRN - SPECIAL INSPECTOR * Progress note Date Encounter Last Documented by 12/05/2024 IN HOUSE REFERRAL Last documente d on 12/05/2024; 4:17 PM, Flako Pulido PA-C; [facility] Active Problems & Conditions - History of Lower Back Pain Midline Right Side - Joint Pain in Both Knees - Joint Pain Left Thumb - Pain in the Hands Chief Complaint The Chief Complaint is: Harshal Hand Pain. History of Present Illness Stephane Mendieta is a 74 year old male. - Symptoms Locking. - Allergy list reviewed - Problem list reviewed - Medication list reviewed - No previous treatment. - Review of medications documented 74-year-old male here for evaluation of his bilateral hand pain. He locates the majority of his left hand pain near the middle finger A1 yelitza. He has catching and locking of the middle finger. Symptoms have been present for about a month and not getting any better. Locates his right hand pain near the base of the right thumb. Denies any triggering of digits on the right. No numbness and tingling in the hands. Denies any previous treatment for these specific problems. Current Medication - Amoxicillin 500 MG Oral Capsule take as directed 10 days, 0 refills - Cephalexin 500 MG Oral Capsule take as directed 7 days, 0 refills - DULoxetine HCl 60 MG Oral Capsule Delayed Release Particles take as directed 90 days, 0 refills - Esomeprazole Magnesium 40 MG Oral Capsule Delayed Release take as directed 30 days, 0 refills - Esomeprazole Magnesium 40 MG Oral Capsule Delayed Release take as directed 30 days, 0 refills - Fluticasone Propionate 50 MCG/ACT Nasal Suspension take as directed 90 days, 0 refills - Gabapentin 300 MG Oral Capsule take as directed 30 days, 0 refills - HYDROcodone-Acetaminophen 5-325 MG Oral Tablet take as directed 2 days, 0 refills - LORazepam 1 MG Oral Tablet take as directed 30 days, 0 refills - Losartan Potassium 100 MG Oral Tablet take as directed 90 days, 0 refills - Montelukast Sodium 10 MG Oral Tablet take as directed 90 days, 0 refills - predniSONE 10 MG Oral Tablet take as directed 15 days, 0 refills - Tamsulosin HCl 0.4 [...] allergic reaction. Physical Findings - Vitals taken 12/05/2024 02:27 pm MCG Height 69 in Weight 250 lbs Body Mass Index 36.9 kg/m2 Body Surface Area 2.3 m2 PHYSICAL EXAM: CONSTITUTIONAL: Well developed, well groomed, well nourished patient in no acute distress who appears stated age, height and weight. PSYCHIATRIC: The patient is alert and oriented to person, place, date and situation. Mood and affect are normal for current situation. NEUROLOGICAL: Sensation normal bilateral upper and lower extremities. LYMPHATIC: No pitting edema noted in the lower extremities. SKIN: No lesions noted on upper or lower extremities. Skin is dry, warm and with normal turgor. VASCULAR: No swelling in upper or lower extremities other than described below in extremity exam. Pulses normal in both upper (radial) extremities. GAIT AND STATION: Normal gait without assistive devices. Station normal. BILATERAL WRIST/HAND: Able to make a full composite fist Able to fully flex and extend all fingers Hand is warm and well perfused Sensation intact to light touch distally in all nerve distributions Carpal compression test is negative Tinel of the median nerve at the wrist is negative There is tenderness to palpation of the left middle A1 yelitza with a tender palpable nodule, crepitus and triggering CMC is tender to palpation bilaterally CMC grind is positive for pain and crepitus bilaterally There is no tenderness to palpation over the dorsal compartments. Finklesteins is negative Flexion: 90 degrees Extension: 70 degrees Pronation: 90 degrees Supination: 90 degrees Strength: 5/5 wrist flexion, 5/5 extension, 5/5 supination, 5/5 pronation. User Defined 5 Three-view x-rays of bilateral hand x-rays shows no acute bony abnormality. There is evidence of wrist house 0 chondrosis. There is degenerative changes seen throughout the carpus as well as the 1st CMC. 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 Seems to be most symptomatic from the right CMC and left middle trigger digit. Recommend a right middle trigger injection in a right CMC injection. He agrees to proceed. I will have him follow up in 1 month for clinical recheck. The risks and benefits of a left MF trigger finger injection were discussed. I answered all of the patient's questions and they verbally consented to the procedure. The skin over the A1 yelitza was prepped with isopropyl alcohol and allowed to dry. Utilizing a sterile needle, I injected 1/2 cc of betamethasone and 1/2 cc of 1% lidocaine into the flexor tendon sheath. The needle was withdrawn and the injection site was dressed with a sterile Band-Aid. The patient tolerated the procedure well without any apparent complication. Post-injection instructions were discussed. The risks and benefits of a right CMC injection were discussed. I answered all of the patient's questions and they verbally consented to the procedure. The skin over the CMC joint was prepped with isopropyl alcohol and allowed to dry. Utilizing a sterile needle, I injected 1/2 cc of betamethasone and 1/2 cc of 1% lidocaine into the joint. The needle was withdrawn and the injection site was dressed with a sterile Band- Aid. The patient tolerated the procedure well without any apparent complication. Post-injection instructions were discussed. Assessment - Overweight Counseling/Education Tobacco non-user. use of tobacco assessment performed. - Lose weight Plan Patient screened for future fall risk: documentation of any fall with injury in past year. Notes This dictation was done with voice recognition software and may contain errors and omissions. Care Team - Olga Licea APRN - SPECIAL INSPECTOR * Progress note Date Encounter Last Documented by 11/29/2024 Follow Up Last documented on 12/17/2024; 10:39 AM, Issa Rodriguez MD; [facility] Active Problems & Conditions - History of Lower Back Pain Midline Right Side - Joint Pain in Both Knees - Joint Pain Left Thumb - Pain in the Hands Chief Complaint The Chief Complaint is: Lower back pain. Referred Here Referred by [facility]. History of Present Illness Stephane Mendieta is a 74 year old male. - Allergy list reviewed - Problem list reviewed - Medication reconciliation performed - Medication list reviewed - Medication list reviewed with patient Current Medication - Amoxicillin 500 MG Oral Capsule take as directed 10 days, 0 refills - Cephalexin 500 MG Oral Capsule take as directed 7 days, 0 refills - DULoxetine HCl 60 MG Oral Capsule Delayed Release Particles take as directed 90 days, 0 refills - Esomeprazole Magnesium 40 MG Oral Capsule Delayed Release take as directed 30 days, 0 refills - Esomeprazole Magnesium 40 MG Oral Capsule Delayed Release take as directed 30 days, 0 refills - Fluticasone Propionate 50 MCG/ACT Nasal Suspension take as directed 90 days, 0 refills - Gabapentin 300 MG Oral Capsule take as directed 30 days, 0 refills - HYDROcodone-Acetaminophen 5-325 MG Oral Tablet take as directed 2 days, 0 refills - LORazepam 1 MG Oral Tablet take as directed 30 days, 0 refills - Losartan Potassium 100 MG Oral Tablet take as directed 90 days, 0 refills - Montelukast Sodium 10 MG Oral Tablet take as directed 90 days, 0 refills - predniSONE 10 MG Oral Tablet take as directed 15 days, 0 refills - Tamsulosin HCl 0.4 [...] Cancer Systemic hypertension Review Of Systems Systemic: Not feeling tired, no recent weight loss, and no recent weight gain. No edema. Head: No headache and no sinus pain. Eyes: No vision problems and no glaucomatous visual field defect. Cataracts. No Glasses/Contacts and no Glaucoma. Otolaryngeal: No hearing loss and no tinnitus. No nasal symptoms. Cardiovascular: No chest pain or discomfort and no palpitations. Hypertension. No High Cholesterol. Pulmonary: No daytime asthma symptoms, no cough, and no chronic cough. No wheezing. Gastrointestinal: No heartburn and no abdominal pain. No Indigestion, no Peptic Ulcer, no GI Stomach Bleed, and no Ulcers. Acid Reflux. Endocrine: No hot flashes, no muscle weakness, no Diabetes, no Hypothyroid, and no Hyperthyroid. Hematologic: No easy bleeding, no tendency for easy bruising, and no Anemia. Musculoskeletal: Arthritis. No lower back pain. No soft tissue swelling and no localized joint pain. Neurological: No dizziness, no convulsions, and no numbness. Psychological: No anxiety, no emotional lability, no depression, and no insomnia. Not crying for no reason. Skin: No dry skin. No Ulcers, no Scars, no rash, and no ulcers. Allergic and Immunologic: Complaint of seasonal allergic reaction. Physical Findings - Vitals taken 11/29/2024 03:21 pm Height 68 in Weight 250 lbs Body Mass Index 38 kg/m2 Body Surface Area 2.2 m2 Pain Level 8 Standard Measurements: - Patient was overweight. Previous Tests Available previous imaging studies were reviewed Available previous history reviewed Therapy - Follow-up visit in one month. - Referral to physician See PCP for BP and to physician. - Pt received screening for fall risk. Counseling/Education - Lose weight Plan Fall Risk Assessment: This patient has been [...] contain errors and omissions. Patient is here with complaints of the spinal cord stimulator is not working for him. He had a percutaneous array placed in the past. The battery appears to be working 1 day interrogated by the [employer] reps. He is neurovascularly intact. He is overweight. X-rays show that the leads have been pulled out of where they are supposed to be originally placed. He would like to keep the stimulator and we discussed the risks benefits alternatives of thoracic laminectomy for insertion of a permanent paddle up behind T9 where it was originally placed. He understands the risks and wishes to proceed Practice Management Use of tobacco assessment performed and patient screened for future fall risk documentation of any fall with injury in past year. Care Team - Olga Licea APRN - SPECIAL INSPECTOR Health Reminders - Assess BMI satisfied 11/29/2024. - Assess Tobacco Use satisfied 04/05/2019. - Follow Up Plan BMI Management satisfied 11/29/2024.
--- OUTSIDE RECORDS SUMMARY | 2025-07-06 10:21 | XMS_ITS | Encounter Summary ---
Author Organization [facility] [employer] ([place], [place], [place], [place], [place]) Address [address] [place] [address] Care Team Providers Care Supervisor Mail Carriers Name Role Phone Maya Torres Reji BELCHER Primary Care Provider [phone]- [phone] Encounter Details Date Type Department Care Team (Late st Contact Info) Description 06/16/2018 Transcribed Document [facility] [place] Family Medicine [facility]ly [facility] [address] ProviderJean MD [address] [place], [place] [address] Social History Tobacco Use Types Packs/Day Years Used Date Smoking Tobacco: Never Assessed Sex and Gender Information Value Date Recorded Sex Assigned at Not on file Legal Sex Male 5:19 PM CDT Gender Identity Not on file Sexual Orientation Not on file documented as of this encounter Miscellaneous Notes * Cerner Conversion Note - Jean Sawant MD - 06/16/2018 8:43 AM SET UP MECHANIC COIL WINDING MACHINES Patient: ISATU MENDIETA Age: 67 Years Sex: Male : 1950 Chief Complaint Right Knee Pain PCP Olga Licea History of Present Illness This patient is a pleasant 67 yo WM who presents with right knee pain. The pain has been going on for 6 months but has gotten progressively worse. He describes it as an ache. It is now to the point that it is affecting his ADLs. He has tried NSAIDs and injections without relief of his pain. He has not fallen. He has not used an assistive device. 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 Pt was offered a Right Total Knee Arthroplasty and agreed to the procedure. Pt denies a h/o DVT/PE. No trouble with anesthesia in the past. No respiratory conditions including COPD/SUHAS/asthma. Review of Systems Constitutional: Neg for fevers or chills. Eyes: Neg for blurry vision or change in vision. ENT: Neg for sore throat, ear pain, or dizziness. Cardiac: Neg for chest pain or dyspnea on exertion. Respiratory: Neg for shortness of breath. Gastrointestinal: Neg for nausea, vomiting, diarrhea, or constipation. Musculoskeletal: Pos for right knee pain. Neurologic: Neg for headaches or seizures. Psychiatric: Neg for anxiety and depression. Integumentary: Neg for rash. Physical Exam Vitals & Measurements T: 37.1 ??C HR: 88 (Peripheral) RR: 20 BP: 131/85 SpO2: 97% HT: 175.26 cm WT: 100 kg BMI: 32.6 Constitutional: This is a pleasant 67 yo WM in no acute distress. HEENT: Normocephalic, atraumatic. PEERLA. Extraocular muscles intact. Conjunctiva pink without exudate. Oropharynx pink and moist. Neck supple. No JVD. Cardiac: SI, S2. RRR. No M/R/G. Respiratory: Lungs CTA bilaterally. No wheezes, rales, or rhonchi. Abdomen: Soft, nontender, nondistended. Active bowel sounds. No visible masses. Musculoskeletal: Bilateral LE without clubbing, cyanosis or edema. Integumentary: Skin is pink, warm and dry. No rashes. Neurologic: CN II-XII grossly intact. Psychiatric: Judgment and affect appropriate. Assessment/Plan 1. Preoperative Evaluation- Right Knee Pain secondary to DJD: Proceed with surgery as scheduled with Dr King on 06/21/2018. Pt underwent preoperative laboratory workup and diagnostic studies. 2. Hypertension- Continue Losartan. 3. BPH- Continue Finasteride and Flomax. 4. Depression- Continue Duloxetine. 5. Anxiety- Continue Lorazepam. 6. Seasonal Allergies- Continue Singulair. Problem List/Past Medical History At risk for sleep apnea Enlarged prostate Hypertension Seasonal allergies Procedure/Surgical History bilateral cataracts, colonoscopy, cyst removed from left hand, hernia, right shoulder rotator cuff, skin cancer removal. Medications Home DULoxetine, 60 mg, Oral, Daily finasteride 5 mg oral tablet, 5 mg, 1 Tab, Oral, Daily LORazepam 1 mg oral tablet, 1 mg, 1 Tab, Oral, BID losartan 100 mg oral tablet, 100 mg, 1 Tab, Oral, QPM montelukast 10 mg oral tablet, 10 mg, 1 Tab, Oral, Daily sulfaSALAzine 500 mg oral delayed release tablet, 500 mg, 1 Tab, Oral, BID tamsulosin 0.4 mg oral capsule, 0.4 mg, 1 Cap, Oral, BID traZODone 150 mg oral tablet, 150 mg, 1 Tab, Oral, Once a day (at bedtime) Allergies No Known Medication Allergies Social History Alcohol Alcohol Use History Yes. Alcohol Use Frequency Rarely. Nutrition/Health Regular Substance Abuse Drug Use Hx: No. Tobacco Former smoker, quit more than 30 days ago Smoking Status. Never Smokeless Tobacco Status. Last Used: quit 10 yr ago. Family History Pt mother is alive with Diabetes Mellitus. Pt father from Lung Cancer at 56. Lab Results UA- neg nitrites, neg LE CBC Results (Current Encounter/Past 24 Hours) WBC 8.4 K/uL 06/16/2018 10:05 Hct 39.5 % LOW 06/16/2018 10:05 Hgb 13.2 Gram/dL LOW 06/16/2018 10:05 Platelet Count 176 K/uL 06/16/2018 10:05 CMP Results (Current Encounter/Past 24 Hours) eGFR >60 mL/min/1.73m2 06/16/2018 10:24 eGFR NonAfrican >60 mL/min/1.73m2 06/16/2018 10:24 A/G Ratio 1.3 06/16/2018 10:24 Globulin 2.8 Gram/dL 06/16/2018 10:24 Creatinine Level 0.93 mg/dL 06/16/2018 10:24 Protein Total 6.5 Gram/dL 06/16/2018 10:24 Bun/Creatinine 16.1 06/16/2018 10:24 Sodium Level 139 mmol/L 06/16/2018 10:24 Potassium Level 3.7 mmol/L 06/16/2018 10:24 Chloride Level 106 mmol/L 06/16/2018 10:24 Carbon Dioxide Level 27 mmol/L 06/16/2018 10:24 Anion Gap 10 06/16/2018 10:24 Alk Phos 74 Units/Liter 06/16/2018 10:24 ALT 22 Units/Liter 06/16/2018 10:24 AST 13 Units/Liter 06/16/2018 10:24 Blood Urea Nitrogen 15 mg/dL 06/16/2018 10:24 Glucose Level 79 mg/dL 06/16/2018 10:24 Albumin Level 3.7 Gram/dL 06/16/2018 10:24 Bilirubin Total 0.4 mg/dL 06/16/2018 10:24 Calcium Level 8.6 mg/dL 06/16/2018 10:24 Diagnostic Results EKG- NSR, 84 CXR- NAD documented in this encounter Plan of Treatment Not on file documented as of this encounter Visit Diagnoses Not on filedocumented in this encounter Care Teams Supervisor Mail Carriers Relationship Specialty Start Date End Date Maya Torres, TRAY ROOM WORKER [address] [phone] PCP - General Family Medicine 08/27/22 documented as of this encounter
--- OUTSIDE RECORDS SUMMARY | 2025-07-06 10:22 | XMS_ITS | Encounter Summary ---
Author Organization [employer] ([place], [place], [place], [place], [place]) Address [address] [place] [address] Care Team Providers Care Performing Arts Technicians Name Role Phone Maya Torres Reji BELCHER Primary Care Provider [phone]- [phone] Encounter Details Date Type Department Care Team (Late st Contact Info) Description 10/18/2020 Transcribed Document [facility] [place] [facility] [place] [address] ProviderJean MD [address] [place], [place] [id number] Social History Tobacco Use Types Packs/Day Years Used Date Smoking Tobacco: Never Assessed Sex and Gender Information Value Date Recorded Sex Assigned at Not on file Legal Sex Male 5:19 PM CDT Gender Identity Not on file Sexual Orientation Not on file documented as of this encounter Miscellaneous Notes * Cerner Conversion Note - Jean Sawant MD - 10/18/2020 7:05 PM CDT ED Triage Entered On: 10/18/2020 19:13 EDT Performed On: 10/18/2020 19:09 EDT by SUSHMA MARQUEZ, PRINTED CIRCUIT BOARDS CONTACT PRINTER Triage Across the Room Chief Complaint : c/o LUQ/L rib pain after working under a house . denies trauma, but states it felt like he tore something. has a compression band around it, states this helps the pain. worse c cough Triage Date/Time : 10/18/2020 19:09 EDT SUSHMA MARQUEZ, RN - 10/18/2020 19:09 EDT DCP GENERIC CODE Tracking Acuity : 3 - Urgent Tracking Group : [facility] ED SUSHMA MARQUEZ RN - 10/18/2020 19:09 EDT Mode of Arrival : Ambulatory Transported to ED by : Private vehicle To Room Via : Ambulate Accompanied By : Spouse ED Vital Signs : Document Height & Weight : Document ED Allergies : Document ED Reason for Visit : Document Tetanus Immunization : Less than 5 years SUSHMA MARQUEZ RN - 10/18/2020 19:09 EDT Infectious Disease History Has the patient ever been tested for COVID-19? : Yes, Patient stated results Negative Date of COVID-19 test known? : No Does patient have symptoms of COVID-19? : No COVID19 Screening : No Experiencing Infectious Disease Symptoms : No symptoms Physical contact outside [place] in the last 30 days : No Infectious Disease History : Influenza, Measles, Mumps Tuberculosis Symptoms : None SUSHMA MARQUEZ RN - 10/18/2020 19:09 EDT Vital Signs ED Temperature Source : Temporal artery scanning Temperature Mode : Fahrenheit Temperature, Fahrenheit : 98.3 Deg F Clinical Temperature, C : 36.8 Deg C Oxygen Therapy Mode : Room air Peripheral Pulse Rate : 109 bpm (HI) Respiratory Rate : 17 Breaths/Min Systolic Blood Pressure : 157 mmHg (HI) Diastolic Blood Pressure : 75 mmHg Oxygen Saturation : 95 % SUSHMA MARQUEZ RN - 10/18/2020 19:09 EDT Allergy (As Of: 10/18/2020 19:13:26 EDT) Allergies (Active) No Known Medication Allergies Estimated Onset Date: Unspecified ; Created By: Shavonne Jimenez RN; Reaction Status: Active ; Category: Drug ; Substance: No Known Medication Allergies ; Type: Allergy ; Updated By: Shavonne Jimenez RN; Reviewed Date: 10/18/2020 19:09 EDT Diagnosis Control ED (As Of: 10/18/2020 19:13:26 EDT) Problems(Active) At risk for sleep apnea (IMO :30966671 ) Name of Problem: At risk for sleep apnea ; Recorder: SYSTEM, SYSTEM; Confirmation: Confirmed ; Classification: Medical ; Code: [id number] ; Last Updated: 06/16/2018 8:18 EST ; Life Cycle Date: 06/16/2018 ; Life Cycle Status: Active ; Vocabulary: IMO Enlarged prostate (SNOMED CT :498827835 ) Name of Problem: Enlarged prostate ; Recorder: Shavonne Jimenez RN; Confirmation: Confirmed ; Classification: Medical ; Code: [id number] ; Contributor System: ViajaNetChart ; Last Updated: 06/16/2018 8:22 EST ; Life Cycle Date: 06/16/2018 ; Life Cycle Status: Active ; Vocabulary: SNOMED CT Hypertension (SNOMED CT :6337751983 ) Name of Problem: Hypertension ; Recorder: Shavonne Jimenez RN; Confirmation: Confirmed ; Classification: Medical ; Code: [id number] ; Contributor System: ViajaNetChart ; Last Updated: 06/16/2018 8:21 EST ; Life Cycle Date: 06/16/2018 ; Life Cycle Status: Active ; Vocabulary: SNOMED CT Seasonal allergies (SNOMED CT :5792622090 ) Name of Problem: Seasonal allergies ; Recorder: Shavonne Jimeenz RN; Confirmation: Confirmed ; Classification: Medical ; Code: [id number] ; Contributor System: PowerChart ; Last Updated: 06/16/2018 8:22 EST ; Life Cycle Date: 06/16/2018 ; Life Cycle Status: Active ; Vocabulary: SNOMED CT Diagnoses(Active) Rib/trunk pain-swelling Date: 10/18/2020 ; Diagnosis Type: Reason For Visit ; Confirmation: Complaint of ; Clinical Dx: Rib/trunk pain-swelling ; Classification: Medical ; Clinical Service: Emergency medicine ; Code: PNED ; Probability: 0 ; Diagnosis Code: [id number] ED Height and Weight Height Source : Stated Height Entry Format : [place] Height, Feet : 5 ft(Converted to: 152 cm, 60 Inch) Height, Inches : 8 Inch(Converted to: 0 ft 8 Inch, 20.32 cm) Clinical Height : 172.72 cm Weight Source, ED : Critical estimated dosing weight Weight Entry Format : [place] Weight, Pounds : 240 lb Clinical Dosing Weight : 109.09 kg Body Surface Area (BSA) : 2.21 m2 Body Mass Index : 36.6 kg/m2 (HI) [place] Body Weight (IBW) : 67.45 kg SUSHMA MARQUEZ RN - 10/18/2020 19:09 EDT documented in this encounter Plan of Treatment Not on file documented as of this encounter Visit Diagnoses Not on filedocumented in this encounter Care Teams Performing Arts Technicians Relationship Specialty Start Date End Date Maya Torres, EMERGENCY DEPARTMENT COORDINATOR [address] [phone] PCP - General Family Medicine 08/27/22 documented as of this encounter
--- OUTSIDE RECORDS SUMMARY | 2025-07-06 10:22 | XMS_ITS | Encounter Summary ---
Author Organization [employer] ([place], [place], [place], [place], [place]) Address [address] [place] [address] Care Team Providers Care Commercial Lending Relationship Manager Name Role Phone Maya Torres Reji BELCHER Primary Care Provider +1- [phone] Encounter Details Date Type Department Care Team (Late st Contact Info) Description 10/18/[address] [facility] [place] Family Medicine [address] [place] [address] ProviderJean MD [address] [place] [address] Social History Tobacco Use Types Packs/Day Years Used Date Smoking Tobacco: Never Assessed Sex and Gender Information Value Date Recorded Sex Assigned at Not on file Legal Sex Male 5:19 PM CDT Gender Identity Not on file Sexual Orientation Not on file documented as of this encounter Miscellaneous Notes * Cerner Conversion Note - Jean ProviderMD - 10/18/2020 7:05 PM CDT Bro[place] Violence Assessment Entered On: 10/18/2020 19:42 EDT Performed On: 10/18/2020 19:41 EDT by Dee Ocampo RN Broset Violence Assessment Broset Violence Checklist of Symptoms : None Broset Violence Symptoms Subtotal : 0 Broset Violence Symptoms Indicator : Low risk (0) Broset Interventions : [place] precautions for safety used Dee Ocampo, HOLA - 10/18/2020 19:41 EDT Electronically signed by Ileana [place] Conversion Nursing Staff Development Coordinator Cerner at 11/04/2022 3:34 PM CDT documented in this encounter Plan of Treatment Not on file documented as of this encounter Visit Diagnoses Not on filedocumented in this encounter Care Teams Commercial Lending Relationship Manager Relationship Specialty Start Date End Date Maya Torres, LIVESTOCK TRUCKER [address] [phone] PCP - General Family Medicine 08/27/22 documented as of this encounter
--- OUTSIDE RECORDS SUMMARY | 2025-07-06 10:22 | XMS_ITS | Encounter Summary ---
Author Organization [employer] ([place], [place], [place], [place], [place]) Address [address] [place] [address] Care Team Providers Care Principal Trainer Name Role Phone Maya Torres Reji BELCHER Primary Care Provider +1- [phone] Encounter Details Date Type Department Care Team (Late st Contact Info) Description 10/27/2020 Transcribed Document [facility] Family Medicine [address] [place] [address] ProviderJean MD [address] [place] [address] Social History Tobacco Use Types Packs/Day Years Used Date Smoking Tobacco: Never Assessed Sex and Gender Information Value Date Recorded Sex Assigned at Not on file Legal Sex Male 5:19 PM CDT Gender Identity Not on file Sexual Orientation Not on file documented as of this encounter Miscellaneous Notes * Cerner Conversion Note - Jean ProviderMD - 10/27/2020 11:59 AM CDT ED Assessment Entered On: 10/27/2020 12:32 EDT Performed On: 10/27/2020 12:21 EDT by Jasmin Thornton SMASHER General-Functional Assess Preferred Communication Mode : Verbal Communication Barrier : None Primary Language : Guamanian Any Spiritual/Cultural Needs or Requests : No Currently in Unsafe Situation : No Jasmin Thornton RN - 10/27/2020 12:21 EDT Social Habits Smoking Status : Refused tobacco status screen Smokeless Tobacco Status : Refused tobacco status screen Desires Tobacco Cessation Calc : 0 Jasmin Thornton RN - 10/27/2020 12:21 EDT Social History (As Of: 10/27/2020 12:32:13 EDT) Tobacco: Former smoker, quit more than [...] Shavonne Jimenez, HOLA) Cardiovascular ASMT, ED Cardiovascular Symptoms : None Heart Rhythm : Regular Nail Bed Color : [place] Chest Pain : No Capillary Refill, Left Hand : Less than/Equal to (</=) 2 seconds Capillary Refill, Right Hand : Less than/Equal to (</=) 2 seconds Capillary Refill, Left Foot : Less than/Equal to (</=) 2 seconds Capillary Refill, Right Foot : Less than/Equal to (</=) 2 seconds Detailed Cardiovascular Assessment : Open Jasmin Thornton RN - 10/27/2020 12:21 EDT Cardiovascular ASMT, Detailed Cardiac Rhythm : Normal sinus rhythm, AV block, first degree Jasmin Thornton RN - 10/27/2020 12:21 EDT Respiratory Breath Sounds Auscultated : Posterior, Anterior Respiratory Assessment WDL : WDL with exceptions (Comment: pt c/o increase in soa, reports increase in a deep cough . pt shows no signs of respiratory distress. seen here october 19 2020 for a torn muscle in his abdomen and lung/rib area . pt reports fullness in abdomen causing increase in soa, adds a ripping/tearing feeling that does radiate to his back. denies any history of AAA. abdomen is soft, distended in nature, nontender upon palpation. + bruising noted to lower abdominal area (horizontal in nature) [Jasmin Thornton RN - 10/27/2020 12:21 EDT] ) Cough : None Jasmin Thornton RN - 10/27/2020 12:21 EDT Breath Sounds Assessment Grid All Lobes Breath Sounds : Clear FELIX : Clear LLL : Clear RUL : Clear RML : Clear RLL : Clear Jasmin Thornton RN - 10/27/2020 12:21 EDT Neurologic ASMT, ED Neurological Symptoms : None Level of Consciousness : Alert, Awake Affect/Behavior : Appropriate, Calm Speech : Clear Orientation : Oriented x 4 Pupils Equal, Round, Reactive to Light : Yes Pupil Description, Left : Regular, Round Pupil Reaction, Left : Brisk Pupil Description, Right : Regular, Round Pupil Reaction, Right : Brisk Pupil Size, Left : 3 mm Pupil Size, Right : 3 mm [place] Coma Scale Link : Open GCS Jasmin Thornton RN - 10/27/2020 12:21 EDT Diana Coma Diana Best Motor Response : Obey commands Diana Best Verbal Response : Oriented [place] Eye Opening Response : Spontaneous [place] Coma Score : 15 Jasmin Thornton RN - 10/27/2020 12:21 EDT Electronically signed by [facility] Conversion Credit Counselor Cerner at 11/04/2022 3:11 PM CDT documented in this encounter Plan of Treatment Not on file documented as of this encounter Visit Diagnoses Not on filedocumented in this encounter Care Teams Principal Trainer Relationship Specialty Start Date End Date Maya Torres, BUSINESS ANALYSIS CONSULTANT [address] [phone] PCP - General Family Medicine 08/27/22 documented as of this encounter
--- OUTSIDE RECORDS SUMMARY | 2025-07-06 10:22 | XMS_ITS | Clinical Summary ---
Author Organization [facility] , [facility] Address [address] [place] [address] Phone Care Team Providers Care Cylinder Machine Operator Name Role Phone Jose Cruz COLEMAN, Domingo Jett Unavailable [phone] Olga Licea APRN Unavailable [phone] Reason for Visit and Chief Complaint The Chief Complaint is: back pain Problems Includes: Problems addressed during this encounter and other active Problems All Visits Onset Date Date of Diagnosis Resolved Date Provider Condition Status Soft Tissue Pain Hand 12/05/2024 12/05/2024 Flako Pulido PA-C Active Last Documented On 5 1:43AM ; [facility], [facility] History of Lower Back Pain M idline Right Side 04/12/2022 04/12/2022 Holden Modi PA-C Active Last Documented On 5 1:41AM ; [facility], [facility] Joint Pain Left Thumb 03/12/2021 03/12/2021 Charles Hernandez MD Active Last Documented On 5 1:40AM ; [facility], [facility] Joint Pain in Both Knees 04/05/2019 04/05/2019 Arlet Billingsley MD Active Last Documented On 5 1:39AM ; [facility], [facility] Plan of Treatment Patient screened for future fall risk: documentation of any fall with injury in past year. - Last Documented On 01/14/2025 10:41AM ; [facility], [facility] Patient was seen by myself Holden [...] the incision at this point in time - Last Documented On 01/14/2025 10:41AM ; [facility], [facility] Pending Tests Order Diagnosis Results Due Ordering P rovider Radiology - MRI MRI Lumbar Spine 04/26/22 Chas Modi PA-C Last Documented On 2 1:06PM ; [facility], [facility] Future Appointments Date Time Location Provi tahira Post Op 07/19/2025 11:00AM [facility] Holden Modi PA-C Last Documented On 5 10:29AM ; [facility] Instructions to patient Lose weight Last Documented On 10:36AM ; [facility] Assessments Includes: Assessments from this encounter Findings - Overweight - Last Documented On 01/14/2025 10:41AM ; [facility] 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 December 19, 2024 - Last Documented On 01/14/2025 10:41AM ; [facility] Instructions Includes: Instructions from this encounter Instructions to patient Lose weight Last Documented On 10:36AM ; [facility] Medical Equipment - Implanted Devices Includes: Current Devices No Medical Equipment Recorded Medications Includes: Medications discussed during this encounter and other current Medications Current Medications (continue as prescribed) Percocet 5-325 MG Oral Tablet 07/03/2025 - 07/18/2025 Provider: Issa Rodriguez MD Diagnosis: 1 po q 4h prn pain Last Documented On 5 8:39AM By Issa Rodriguez ; [facility] Clindamycin HCl 300 MG Oral Capsule 01/07/2025 Provi tahira: Holden Modi PA-C Diagnosis: Last Documented On 5 10:36AM By Quentin Wm ; [facility] oxyCODONE-Acetaminophen 5-325 MG Oral Tablet Provider: Issa Rodriguez MD Diagnosis: Last Documented On 5 9:50AM By Quentin Burk ; [facility], [facility] Pantoprazole Sodium 40 MG Or al Tablet Delayed Release 12/09/2024 Provider: Maya Torres YARN SKEINS EXAMINER Diagnosis: Last Documented On 5 9:50AM By Quentin Burk ; [facility], [facility] LORazepam 1 MG Oral Tablet 12/04/2024 Provider: Nancy Torres YARN SKEINS EXAMINER Diagnosis: Last Documented On 5 9:50AM By Quentin Burk ; [facility], [facility] Doxycycline Hyclate 100 MG Oral Capsule 12/04/2024 P rosoniader: Diagnosis: Last Documented On 5 9:50AM By Quentin Burk ; [facility], [facility] sulfaSALAzine 500 MG Oral Tablet 11/27/2024 Provider : Maya Torres YARN SKEINS EXAMINER Diagnosis: Last Documented On 5 9:50AM By Quentin Burk ; [facility], [facility] Albuterol Sulfate HFA 108 (9 0 Base) MCG/ACT Inhalation Aerosol Solution 11/07/2024 Provider: Maya anderson YARN SKEINS EXAMINER Diagnosis: Last Documented On 5 9:50AM By Quentin Burk ; [facility], [facility] Finasteride 5 MG Oral Tablet 11/03/2024 Provider: Maya Torres YARN SKEINS EXAMINER Diagnosis: Last Documented On 5 9:50AM By Quentin Burk ; [facility], [facility] Tamsulosin HCl 0.4 MG Oral Capsule 11/03/2024 Provid er: Maya Torres YARN SKEINS EXAMINER Diagnosis: Last Documented On 5 3:49PM By Marifer Nuñez ; [facility], [facility] Amoxicillin 875 MG Oral Tablet 09/11/2024 Provider: Diagnosis: Last Documented On 5 9:50AM By Quentin Burk ; [facility], [facility] predniSONE 10 MG Oral Tablet 03/11/2021 Provider: Jarek Muñiz DO Diagnosis: Last Documented On 1 8:34AM By Deborah Lowery ; [facility], [facility] Amoxicillin 500 MG Oral Capsule 03/11/2021 Provider: Jarek Muñiz DO Diagnosis: Last Documented On 1 8:34AM By Deborah Lowery ; [facility], [facility] Cephalexin 500 MG Oral Capsule 03/10/2021 Provider: Diagnosis: Last Documented On 8:34AM By Deborah Lowery ; [facility], [facility] HYDROcodone-Acetaminophen 5-325 MG Oral Tablet 021 Provider: Diagnosis: Last Documented On 8:34AM By Deborah Lowery ; [facility], [facility] Gabapentin 300 MG Oral Capsule 03/06/2021 Provider: Diagnosis: Last Documented On 8:34AM By Deborah Lowery ; [facility], [facility] LORazepam 1 MG Oral Tablet 03/06/2021 Provider: Diagnosis: Last Documented On 8:34AM By Deborah Lowery ; [facility], [facility] Esomeprazole Magnesium 40 MG Oral Capsule Delayed Rele ase 03/04/2021 Provider: Diagnosis: Last Documented On 8:34AM By Deborah Lowery ; [facility], [facility] Esomeprazole Magnesium 40 MG Oral Capsule Delayed Rele ase 03/04/2021 Provider: Diagnosis: Last Documented On 8:34AM By Deborah Lowery ; [facility], [facility] Fluticasone Propionate 50 MCG/ACT Nasal Suspension Provider: Diagnosis: Last Documented On 8:35AM By Deborah Lowery ; [facility], [facility] Past Medications on file Clindamycin HCl 300 MG Oral Capsule 01/07/2025 - 01/09/2025 Provider: Holden Steiner Diagnosis: take 2 pills, 3 three times a day Last Documented On 5 11:06AM By Quentin Burk ; [facility], [facility] Clindamycin HCl 300 MG Oral Capsule 12/28/2024 - 01/08/2025 Provider: Holden Steiner Diagnosis: three times a day Last Documented On 5 10:10AM By Quentin Burk ; [facility], [facility] Percocet 5-325 MG Oral Tablet 12/19/2024 - 01/03/2025 Provider: Issa Rodriguez MD Diagnosis: 1 po q 4h prn pain Last Documented On 5 8:40AM By Issa Rodriguez ; [facility], [facility] Losartan Potassium 100 MG Oral Tablet 12/05/2024 - Provider: Diagnosis: Last Documented On 5 3:50PM By Marifer Nuñez ; [facility] DULoxetine HCl 60 MG Oral Ca psule Delayed Release Particles 12/05/2024 - 03/05/2025 Provider: Diagnosis: Last Documented On 5 3:49PM By Marifer [facility] Montelukast Sodium 10 MG Oral Tablet 12/05/2024 - 02/15 Provider: Diagnosis: Last Documented On 5 3:49PM By Marifer Nuñez ; [facility] Medications Administered Includes: Administered Medications from this encounter No Administered Medications Recorded Vital Signs Includes: Vital Signs from this encounter Vital Name 01/14/2025 10:36A Height (in) 69 Weight (lb) 250 Body Mass Index 36.9 Body Surface Area 2.3 Pain Level 3 Last Documented: On 01/14/2025 10:36A M ; [facility] Results Includes: Results discussed during this [...] have not noticed any drainage with this. Social History Description Last Updated Tobacco non-user 04/22/2022 Last Documented On 5 10:36AM ; [facility] No recent change in diet 04/22/2022 Last Documented On 5 10:36AM ; [facility] Not a current smoker. 04/22/2022 Last Documented On 5 10:36AM ; [facility] Non-smoker 03/12/2021 Last Documented On 5 10:36AM ; [facility] No tobacco use 04/05/2019 Last Documented On 5 10:36AM ; [facility] Smoking status : Never smoker 04/05/2019 Last Documented On 5 10:36AM ; [facility], [facility] Caffeine use 04/05/2019 Last Documented On 5 10:36AM ; [facility], [facility] No recent change in diet 04/05/2019 Last Documented On 5 10:36AM ; [facility], [facility] Not a current smoker 04/05/2019 Last Documented On 5 10:36AM ; [facility], [facility] Not exercising regularly 04/05/2019 Last Documented On 5 10:36AM ; [facility], [facility] Not using alcohol 04/05/2019 Last Documented On 5 10:36AM ; [facility], [facility] Not using drugs 04/05/2019 Last Documented On 5 10:36AM ; [facility], [facility] Sex - Male 07/05/2025 Last Documented On 5 2:08PM ; [facility], [facility] Procedures and Surgical History Surgical History Last Updated History of hernia repair 04/05/2019 Last Documented On 5 10:36AM ; [facility], [facility] Medical History Includes: Medical History addressed during this encounter Description Last Updated No recent immunization for flu Last Documented On 5 10:36AM ; [facility], [facility] No recent immunization for pneumococcal pneumonia 03/12/2021 Last Documented On 5 10:36AM ; [facility], [facility] cataracs 04/05/2019 Last Documented On 5 10:36AM ; [facility], [facility] Arthritic joint problems 04/05/2019 Last Documented On 5 10:36AM ; [facility], [facility] Intermittent hypertension 04/05/2019 Last Documented On 5 10:36AM ; [facility], [facility] Family History Includes: Family History addressed during this encounter Description Last Updated Family history of cancer 04/05/2019 Last Documented On 5 10:36AM ; [facility], [facility] Family history of hypertension 9 Last Documented On 5 10:36AM ; [facility], [facility] Review of Systems Includes: Review of [...] this encounter Description Anxiety Last Documented On 10:36AM ; [facility] Physical Exam Includes: Physical Exam from this encounter Allergies Includes: Active Allergies No Known Allergies Care Cylinder Machine Operator Name (Identifier) Role/Relation Location/Telecom Last Documented By Domingo Billingsley MD ([id number]) Assigned practitioner (occupation) tel:[phone] Last Documented On 07/05/2025 2:08PM ; [facility] Olga Vicki Licea APRN ([id number]) [address] [place] [address], [address] tel:[phone] Last Documented On 04/05/2019 9:06AM ; [facility] Encounters Encounter Provider Location (Healthcare Service Location) Date Check-In Time Check-Out Time Diagnosis Encounter Disposition Post Op [facility] 10:40AM Overweight Payer Includes: Active Insurance Policies Plan Name (Payer ID) Coverage Type Member ID Group # Subscriber (ID) Relationship Effective Dates 1 - Medicare Part B [facility] ([id number]) [id number] Stephane Mendieta Self (Checked on 06/03/2025) Last Documented On 9 7:57AM ; [facility], [facility] 2 - [employer] Medicare Supplemen t Insurance [id number] Stephane Mendieta Self 09/15/2017 - Unknown Last Documented On 9 8:40AM ; [facility], [facility] Clinical Notes Includes: Clinical Notes from this encounter * Progress note Date Encounter Last Documented by 01/14/2025 Post Op Last documented on 01/14/2025; 10:41 AM, Holden Modi PA-C; [facility], [facility] Active Problems & Conditions - History [...] Replacement spinal cord stimulator battery with the padShowroomprives system. December 19, 2024 Previous Tests Available [...] Care Team - Olga Licea APRN - CATEGORY PLANNER
[2025-07-06 10:24] VITALS: BP 190/95; PULSE 76; RESP 18; TEMP 36.6; O2SAT 96
[2025-07-06 10:33] VITALS: BMI 38.0
[2025-07-06 10:52] LABS: Hematocrit 34.4 % (42.0-52.0); Hemoglobin 11.1 g/dL (14.1-18.0); Immature Granulocytes % 1.1 %; Mean Corpuscular HGB Conc 32.3 g/dL (31.8-35.4); Mean Corpuscular Hemoglobin 28.5 pg (27.0-31.2); Mean Corpuscular Volume 88.4 fl (80-94); Nucleated Red Blood Cells % 0 %; Platelet Count 208 K/mm3 (142-424); Red Blood Count 3.89 M/mm3 (4.60-6.20); Red Cell Distribution Width-SD 46.3 fL; White Blood Count 12.0 K/mm3 (4.8-10.8)
[2025-07-06] MEDS: DAPTOmycin 1,000 MG in 0.9 % SODIUM CHLORIDE 50 ML 100 MG IV (10:59)
[2025-07-06] MEDS: SODIUM CHLORIDE 0.9% 10ML FLUSH SYRINGE 10 ML IV (11:00)
[2025-07-06 11:04] LABS: Albumin Level 4.1 g/dl (3.5-5.0); Chloride 104 mmol/L (98-107)
[2025-07-06 11:05] LABS: Potassium 3.6 mmoL/L (3.5-5.1); Sodium 137 mmol/L (136-145)
[2025-07-06 11:07] LABS: Alanine Aminotransferase 21 U/L (12-78); Alkaline Phosphatase 61 U/L (38-126); Anion Gap 8.6 mEq/L (5-15); Aspartate Amino Transferase 27 U/L (17-59); Bilirubin,Total 0.7 mg/dl (0.2-1.3); Blood Urea Nitrogen 12 mg/dl (9-20); Carbon Dioxide 28 mmol/L (22.0-30.0); Creatinine Clearance Estimated 107 mL/min (50-200); Creatinine,Serum 0.80 mg/dl (0.66-1.25); Estimated Glomerular Filt Rate 95 ml/min (>60); GFR (African American) 115 ML/MIN (>60)
[2025-07-06 11:08] LABS: Albumin/Globulin Ratio 1.4 (1.1-1.8); Calcium 9.4 mg/dl (8.4-10.2); Creatine Kinase 114 U/L (55-170); Globulin 3.0 g/dL (1.3-3.2); Glucose 127 mg/dl (74-100); Total Protein,Serum 7.1 g/dl (6.3-8.2)
[2025-07-06 11:13] LABS: C-Reactive Protein 52.8 mg/L (0-4)
[2025-07-06 12:29] VITALS: BP 187/103; PULSE 78; RESP 20; TEMP 36.7; O2SAT 97
== END 2025-07-06 12:25 | disposition home or self-care (01) ==
LOC: ED.OUT 10:18 → INF 10:22
PROVIDERS: Internal Medicine Infectious Disease; PCP Nurse Practitioner; Visit Provider Nurse Practitioner
DX: T85.73 Infection and inflammatory reaction due to nervous system devices, implants and graft (principal)
CPT/HCPCS: 80053; 82550; 85025; 85651; 86140; 96365; J0878

== ENCOUNTER 2025-07-07 10:15 | Outpatient (CLI) | payer MEDICARE, OTHER, SELFPAY ==
--- OUTSIDE RECORDS SUMMARY | 2022-12-01 11:56 | XMS_ITS | Encounter Summary ---
[facility] [address] [place] [address] Care Team Providers Care Supervisor Small Appliance Assembly Name Role Phone Maya Torres Primary Care Provider + [phone] Encounter Details Date Type Department Care Team (Late st Contact Info) Description 12/01/2022 12:56 PM EDT Hospital Encounter [facility] PULMONARY & CRITICAL CARE MEDICINE [facility] [place] [address] Social History Tobacco Use Types [...] Narrative 12/01/2022 1:31 PM EDT Stephane Annton [id number] 12/01/2022 Chest X-Ray PA & Lateral Indication: [...] on filedocumented in this encounter Care Teams Supervisor Small Appliance Assembly Relationship Specialty Start Date End Date Maya Torres [address] [place] [address] PCP - General Nurse Practitioner 09/28/22 documented as of this encounter
--- OUTSIDE RECORDS SUMMARY | 2024-04-27 06:30 | XMS_ITS ---
Author Organization [facility] Address [address] [place] [address] Care Team Providers Care Inspector Heating And Refrigeration Name Role Phone Jerome Morrissey II Unavailable Michael COLEMAN -Pramod Velazquez MD, Issa Unavailable [phone] Allergies No Known Allergies REASON FOR VISIT [...] Diagnosis [facility] [address] [place] [address] 04/27/2024 Jerome Morrissey Other penitentiary (current) drug therapy Z79.899 ; Spondylosis without myelopathy or radiculopathy, cervical region M47.812 ; Postlaminectomy syndrome, not elsewhere classified M96.1 and Spondylosis without myelopathy or radiculopathy, lumbar region M47.816 Assessments Encounter Date Diagnosis (ICD Code) Assessment Notes Treatment Notes Treatment Clinical Notes Section Notes 04/27/2024 Other medical terminologist (current) drug therapy (ICD-10 - Z79.899) 04/02/2024 1. Discontinue [place] 5/325mg QD PRN 2. FU 1 month with Yuni 3. [facility] to change SCS settings 4. S/P TFESI [...] no relief with TFESI LT in January. [employer] rep in the room changing SCS settings. [...] no relief with TFESI LT in January. [employer] rep in the room changing SCS settings. [...] no relief with TFESI LT in January. [employer] rep in the room changing SCS settings. [...] no relief with TFESI LT in January. [employer] rep in the room changing SCS settings. [...] Of Treatment Treatment Notes Assessment Notes Other penitentiary (current) drug therapy 04/02/2024 1. Discontinue [place] 5/325mg QD PRN 2. FU 1 month with [facility]uni 3. [employer] rep to change SCS settings 4. S/P [...] Stephane YANEZ ADOB: 3 (74 yo M)Acc No.[id number]:04/27/2024 FollowUP Patient: Stephane RODRIGUEZ Provider: Reji Morrissey II, M.D. :1950 A ge:73 Y S ex:Male Date:04/27/2024 Address:[address] [place], [place] [id number] Subjective: * Chief Complaints: * 1 . [...] relief for 1 hour 0 08/09/2022SCS Trial [place] 80% relief for 1 week 0 02/13/2024#1 [...] * Vitals: * Examination: G eneral Examination: Nurse/Tire Center Manager: Phill McnamaraMA-Shamar)Madeleine 04/02/2024 9:48:48 AM > . [...] scars. Assessment: * Assessment: 1. O ther medical terminologist (current) drug therapy - Z79.899 (Primary) 2 [...] no relief with TFESI LT in January. [employer] rep in the room changing SCS settings. [...] signature of Raymon Morrissey II, M.D. on 07/07/2025 at 09:17 AM COLLATING MACHINE OPERATOR Sign off status: Pending * Provider: Reji Morrissey II, M.D. Date: 1 Generated for Irwin spears/Davon/Eric on: 1 09/07/2024 09:17 AM COLLATING MACHINE OPERATOR History and Physical Notes * HPI [...] to advanced foraminal encroachment PHYSICAL/AQUA THERAPY/DME/OTHER HISTORY: 7235-7459 Chiropractic therapy program complete 06/2023-Present: Patient continues a prescribed home exercise program 3-5 times per week which includes walking, lumbar stretches, and alternating leg lifts PERTINENT SURGICAL EVALUATIONS/SPECIALIST CONSULTS 04/2022 - Dr. Rodriguez - No surgery recommened, recommends SCS trial PREVIOUS INJECTION\PROCEDURE HISTORY: 08/21/2019 #1 SIJI RT 20% relief for 1 hour 08/09/2022 SCS Trial [place] 80% relief for 1 week 02/13/2024 #1 [...] wi th an antalgic gait, pitched forward Nurse/Tire Center Manager: Mendez SHARMA-Shamar)Francisco J 04/02/2024 9:48:48 AM > [...]
--- OUTSIDE RECORDS SUMMARY | 2024-05-28 10:30 | XMS_ITS ---
Author Organization [facility] Address [address] [place] [address] Care Team Providers Care Heel Seat Fitter Machine Name Role Phone Jerome Morrissey II Unavailable Michael COLEMAN -Pramod Velazquez MD, Issa Unavailable [phone] Allergies No Known Allergies REASON FOR VISIT [...] Diagnosis [facility] [address] [address] 05/28/2024 Jerome Morrissey Other buttermaker (current) drug therapy Z79.899 ; Spondylosis without myelopathy or radiculopathy, cervical region M47.812 ; Postlaminectomy syndrome, not elsewhere classified M96.1 and Spondylosis without myelopathy or radiculopathy, lumbar region M47.816 Assessments Encounter Date Diagnosis (ICD Code) Assessment Notes Treatment Notes Treatment Clinical Notes Section Notes 05/28/2024 Other skilled nursing (current) drug therapy (ICD-10 - Z79.899) 04/02/2024 1. Discontinue [place] 5/325mg QD PRN 2. FU 1 month with [facility] 3. [employer] rep to change SCS settings 4. S/P [...] no relief with TFESI LT in January. [employer] rep in the room changing SCS settings. [...] no relief with TFESI LT in January. [employer] rep in the room changing SCS settings. [...] no relief with TFESI LT in January. [employer] in the room changing SCS settings. Patient [...] no relief with TFESI LT in January. [employer] rep in the room changing SCS settings. [...] Of Treatment Treatment Notes Assessment Notes Other buttermaker (current) drug therapy 04/02/2024 1. Discontinue [place] 5/325mg QD PRN 2. FU 1 month with [facility] 3. [employer] rep to change SCS settings 4. S/P [...] Stephane MENDIETA ADOB: 3 (74 yo M)Acc No.[id number]:05/28/2024 Progress NOte Patient: Stehpane RODRIGUEZ Provider: Reji Morrissey II, M.D. :1950 A ge:73 Y S ex:Male Date:05/28/2024 Address:[address] [place] [phone] Subjective: * Chief Complaints: * 1 . [...] for 1 hour 0 08/09/2022 SCS Trial Kdbbkl85% relief for 1 week 0 02/08/2024- #1 [...] * Vitals: * Examination: G eneral Examination: Nurse/Decal Transferrer: Madeleine Gonzalez (MA-Lex) 04/02/2024 9:48:48 AM > [...] scars. Assessment: * Assessment: 1. O ther skilled nursing (current) drug therapy - Z79.899 (Primary) 2 [...] no relief with TFESI LT in January. [employer] rep in the room changing SCS settings. [...] Raymon Morrissey II, M.D. on 07/07/2025 at 09:18 AM INTERNSHIP Sign off status: Pending * Provider: Reji Morrissey II, M.D. Date: 07/28/2023 Generated for Irwin spears/Davon/Nicholasransmitting on: 09/07/2024 09:18 AM INTERNSHIP History and Physical Notes * HPI (History [...] to advanced foraminal encroachment PHYSICAL/AQUA THERAPY/DME/OTHER HISTORY: 7046-2834 Chiropractic therapy program complete 06/2023-Present: Patient continues a prescribed home exercise program 3-5 times per week which includes walking, lumbar stretches, and alternating leg lifts PERTINENT SURGICAL EVALUATIONS/SPECIALIST CONSULTS 04/2022 - Dr. Rodriguez - No surgery recommened, recommends SCS trial PREVIOUS INJECTION\PROCEDURE HISTORY: 08/21/2019 #1 SIJAYLYN RT 20% relief for 1 hour 08/09/2022 SCS Trial [place] 80% relief for 1 week 02/08/2024 - [...] wi th an antalgic gait, pitched forward Nurse/Decal Transferrer: Mendez (ALEJANDRINA-Shamar)Francisco J 04/02/2024 9:48:48 AM > [...]
--- OUTSIDE RECORDS SUMMARY | 2025-07-05 15:39 | XMS_ITS | Continuity of Care Document ---
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 ; Obesity ; FAMILY HISTORY RELATION: Father Status: Cause of : Malignant tumor of lung Age at : 55 SNOMED-CT Diagnosis Age At Onset Information not available RELATION: Mother Status: Cause of : Unknown Age at : Unknown SNOMED-CT Diagnosis Age At Onset [id number] Diabetes mellitus PROBLEMS PATIENT PROBLEMS Code Description/Comments Category Status Upda gigi By [id number] Chronic back pain active [id number] on July 03, 2025 5:48:08 PM UT [id number] 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 active [id number] o n July 04, 2025 12:32:46 PM UT [id number] Obesity active [id number] on Jun 12:33:01 PM UT RESULTS Patient: RENATA Lozano Date of : [birth year] 4 LABORATORY RESULTS ORDER 2800: C-REACTIVE PROTE IN CRP (LOINC: 1987-5) ORDER DATE: July 03, 2025 10:18:00 PM UTC Specimen Source: PLASMA Specimen Type: Plasma specim en PERFORMING LAB: [address] [id number] Result Comment: Final Result Date: July 04, 2025 1:20:00 AM UTC (TECH: ME) LOINC TEST FLAG RESULT REFERENCE RANGE UPDA GIGI BY 1988-5 C reactive protein [Mass/volume] in Serum or Plasma H 0.9 mg/dL 0.05 mg/dL - 0.300 mg/dL July 04, 2025 1:20:00 AM UTC (TECH: ME) ORDER 2900: SED RATE (LOINC: 4537-7) ORDER DATE: July 03, 2025 10:18:00 PM UTC Specimen Source: EDTA Specimen Type: Blood specime n with EDTA PERFORMING LAB: [address] [id number] Result Comment: Final Result Date: July 04, 2025 1:08:00 AM UT (TECH: AY) LOINC TEST FLAG RESULT REFERENCE RANGE UPDA GIGI BY 4537-7 Erythrocyte sedimentation rate by Westergren method N 13 0 - 15 July 04, 2025 1:08:00 AM UTC (TECH: AY) ORDER 3000: CBC AUTO W DIFF (LOINC: 26633-0) ORDER DATE: July 03, 2025 10:18:00 PM UTC Specimen Source: EDTA Specimen Type: Blood specime n with EDTA PERFORMING LAB: [address] [id number] Result Comment: Final Result Date: July 04, 2025 2:36:00 AM UTC (TECH: AY) LOINC TEST FLAG RESULT REFERENCE RANGE UPDA GIGI BY 6690-2 Leukocytes [#/volume] in Blood by Automated count H 14.3 K/ul 4.0 K/ul - 10.5 K/ul July 04, 2025 2:36:00 AM UTC (TECH: AY) 789-8 Erythrocytes [#/volume] in Blood by Automated count L 3.9 M/mm3 4.7 M/mm3 - 6.1 M/mm3 July 04, 2025 2:36:00 AM UTC (TECH: AY) 718-7 Hemoglobin [Mass/volume] in Blood L 11.1 gm/dl 13.5 gm/dl - 18.0 gm/dl July 04, 2025 2:36:00 AM UTC (TECH: AY) 13965-0 Hematocrit [Volume Fraction] of Blood L 34.5 % 42.0 % - 52.0 % July 04, 2025 2:36:00 AM UTC (TECH: AY) 787-2 Erythrocyte mean corpuscular volume [Entitic volume] by Automated count N 89.4 fl 78 fl - 100 fl July 04, 2025 2:36:00 AM UTC (TECH: AY) 785-6 Erythrocyte mean corpuscular hemoglobin [Entitic mass] by Automated count N 28.8 pg 27 pg - 31 pg July 04, 2025 2:36:00 AM UTC (TECH: AY) 786-4 Erythrocyte mean corpuscular hemoglobin concentration [Mass/volume] by Automated count N 32.2 g/dl 32 g/dl - 36 g/dl July 04, 2025 2:36:00 AM UTC (TECH: AY) 58402-0 Erythrocyte distribution width [Ratio] H 14.1 % 11.5 % - 14.0 % July 04, 2025 2:36:00 AM UTC (TECH: AY) 777-3 Platelets [#/volume] in Blood by Automated count N 238 K/ul 150 K/ul - 450 K/ul July 04, 2025 2:36:00 AM UTC (TECH: AY) 33379-3 Platelet mean volume [Entitic volume] in Blood by Automated count N 9.2 fl 6 fl - 9.5 fl July 04, 2025 2:36:00 AM UTC (TECH: AY) 40585-0 Neutrophils/100 leukocytes in Blood H 94.3 % 43 % - 65 % July 04, 2025 2:36:00 AM UTC (TECH: AY) 736-9 Lymphocytes/100 leukocytes in Blood by Automated count L 3.3 % 20.5 % - 45.5 % July 04, 2025 2:36:00 AM UTC (TECH: AY) 5905-5 Monocytes/100 leukocytes in Blood by Automated count L 1.0 % 5.5 % - 11.7 % July 04, 2025 2:36:00 AM UTC (TECH: AY) 713-8 Eosinophils/100 leukocytes in Blood by Automated count L 0.0 % 0.9 % - 2.9 % July 04, 2025 2:36:00 AM UTC (TECH: AY) 706-2 Basophils/100 leukocytes in Blood by Automated count N 0.2 % 0.2 % - 1.0 % July 04, 2025 2:36:00 AM UT (TECH: AY) 60258-7 Immature granulocytes/100 leukocytes in Blood by Automated count H 1.2 % 0.0 % - 0.8 % July 04, 2025 2:36:00 AM UTC (TECH: AY) 72165-5 Nucleated cells [#/volume] in Blood N 0.0 % July 04, 2025 2:36:00 AM UTC (TECH: AY) 67755-7 Neutrophils [#/volume] in Blood H 13.5 K/uL 2.2 K/uL - 4.8 K/uL July 04, 2025 2:36:00 AM UT (TECH: AY) 731-0 Lymphocytes [#/volume] in Blood by Automated count L 0.5 CELL/MCL 1.3 CELL/MCL - 2.9 CELL/MCL July 04, 2025 2:36:00 AM UT (TECH: AY) 742-7 Monocytes [#/volume] in Blood by Automated count L 0.2 CELL/MCL 0.3 CELL/MCL - 0.8 CELL/MCL July 04, 2025 2:36:00 AM UT (TECH: AY) 711-2 Eosinophils [#/volume] in Blood by Automated count N 0.0 CELL/MCL 0 CELL/MCL - 0.2 CELL/MCL July 04, 2025 2:36:00 AM UT (TECH: AY) 704-7 Basophils [#/volume] in Blood by Automated count N 0.0 CELL/MCL 0.0 CELL/MCL - 1.0 CELL/MCL July 04, 2025 2:36:00 AM UTC (TECH: AY) 31888-0 Immature granulocytes [#/volume] in Blood N 0.17 K/ul July 04, 2025 2:36:00 AM UT (TECH: AY) 77227-5 Nucleated cells [#/volume] in Blood N 0.00 K/uL July 04, 2025 2:36:00 AM UT (TECH: AY) 93631-9 Manual Differential panel - Blood N YES July 04, 2025 2:36:00 AM UTC (TECH: AY) 90035-9 Neutrophils.segmente d/100 leukocytes in Blood by Automated count H 90 % 42 % - 76 % July 04, 2025 2:36:00 AM UTC (TECH: AY) 736-9 Lymphocytes/100 leukocytes in Blood by Automated count L 8 % 15 % - 41 % July 04, 2025 2:36:00 AM UTC (TECH: AY) 5905-5 Monocytes/100 leukocytes in Blood by Automated count N 2 % 2 % - 9 % July 04, 2025 2:36:00 AM UTC (TECH: AY) 778-1 Platelets [#/volume] in Blood by Manual count N ADEQUATE ADEQUATE July 04, 2025 2:36:00 AM UT (TECH: AY) 9317-9 Platelet adequacy [Presence] in Blood by Light microscopy N NORMAL NORMAL July 04, 2025 2:36:00 AM UT (TECH: AY) 88251-6 Erythrocytes [Morphology] in Blood by Automated count N NORMAL NORMAL July 04, 2025 2:36:00 AM UT (TECH: AY) ORDER 3100: COMP METABOLIC P SURINDER (LOINC: 65039-1) ORDER DATE: July 03, 2025 10:18:00 PM UT Specimen Source: PLASMA Specimen Type: Plasma specim en PERFORMING LAB: [address] [id number] Result Comment: Final Result Date: July 04, 2025 1:20:00 AM UT (TECH: ME) LOINC TEST FLAG RESULT REFERENCE RANGE UPDA GIGI BY 2951-2 Sodium [Moles/volume ] in Serum or Plasma N 139 mmol/L 136 mmol/L - 145 mmol/L July 04, 2025 1:20:00 AM UT (TECH: ME) 2823-3 Potassium [Moles/volume] in Serum or Plasma N 3.8 mmol/L 3.6 mmol/L - 5.0 mmol/L July 04, 2025 1:20:00 AM UT (TECH: ME) 2075-0 Chloride [Moles/volume] in Serum or Plasma N 101 mmol/L 98 mmol/L - 107 mmol/L July 04, 2025 1:20:00 AM UT ([employer]) 2027- Carbon dioxide, tota l [Moles/volume] in Serum or Plasma N 25.2 mmol/L 21.0 mmol/L - 32.0 mmol/L July 04, 2025 1:20:00 AM [facility] ([employer]) 89596-5 Anion gap in Blood N 16.6 D [id number] 1:20:00 AM UT (TECH: [place]) 2345-7 Glucose [Mass/volume ] in Serum or Plasma H 263 mg/dl 70 mg/dl - 120 mg/dl July 04, 2025 1:20:00 AM [facility] ([facility]: [place]) 6299-2 Urea nitrogen [Mass/volume] in Blood N 12 mg/dL 7 mg/dL - 18 mg/dL July 04, 2025 1:20:00 AM [facility] ([employer]) 97928-8 Creatinine [Moles/volume] in Blood N 1.3 mg/dL 0.6 mg/dL - 1.3 mg/dL July 04, 2025 1:20:00 AM [facility] ([employer]) 66663-2 Glomerular filtratio n rate/1.73 sq M.predicted by Creatinine-based formula (MDRD) L 58 mlpermin 60 mlpermin July 04, 2025 1:20:00 AM [facility] ([employer]) 78289-8 Osmolality of Serum or Plasma by calculated by sum of electrolytes N 298 mosm/kg 275 mosm/kg - 301 mosm/kg July 04, 2025 1:20:00 AM [facility] ([employer]) 2885-2 Protein [Mass/volume ] in Serum or Plasma N 7.1 g/dl 6.4 g/dl - 8.2 g/dl July 04, 2025 1:20:00 AM [facility] (TECH: [place]) 1751-7 Albumin [Mass/volume ] in Serum or Plasma N 3.6 g/dl 3.4 g/dl - 5.0 g/dl July 04, 2025 1:20:00 AM [facility] ([facility]: [place]) 2336-6 Globulin [Mass/volum e] in Serum N 3.5 July 04, 2025 1:20:00 AM [facility] (TECH: [place]) 1759-0 Albumin/Globulin [Ma ss Ratio] in Serum or Plasma N 1.0 0.7 - 2 July 04, 2025 1:20:00 AM [facility] (TECH: [place]) 56386-3 Calcium [Mass/volume ] in Serum or Plasma N 8.7 mg/dl 8.5 mg/dl - 10.5 mg/dl July 04, 2025 1:20:00 AM [facility] (TECH: ME) 1975-2 Bilirubin.total [Mass/volume] in Serum or Plasma N 0.40 mg/dL 0.10 mg/dL - 1.00 mg/dL July 04, 2025 1:20:00 AM UT (TECH: ME) 1920-8 Aspartate aminotransferase [Enzymatic activity/volume] in Serum or Plasma N 14 U/L 0 U/L - 37 U/L July 04, 2025 1:20:00 AM [facility] (TECH: ME) 1742-6 Alanine aminotransferase [Enzymatic activity/volume] in Serum or Plasma N 23 U/L 0 U/L - 65 U/L July 04, 2025 1:20:00 AM [facility] (TECH: ME) 6768-6 Alkaline phosphatase [Enzymatic activity/volume] in Serum or Plasma N 69 U/L 46 U/L - 116 U/L July 04, 2025 1:20:00 AM [facility] (TECH: ME) ORDER 3500: BASIC METABOLIC PANEL (LOINC: 14205-7) ORDER DATE: July 03, 2025 10:19:00 PM [facility] Specimen Source: PLASMA Specimen Type: Plasma specim en PERFORMING LAB: [address] [id number] Result Comment: Final Result Date: July 04, 2025 11:56:00 AM UT (TECH: ARR) LOINC TEST FLAG RESULT REFERENCE RANGE UPDA GIGI BY 2951-2 Sodium [Moles/volume] in Serum or Plasma N 138 mmol/L 136 mmol/L - 145 mmol/L July 04, 2025 11:56:00 AM UT (TECH: ARR) 2823-3 Potassium [Moles/volume] in Serum or Plasma L 3.4 mmol/L 3.6 mmol/L - 5.0 mmol/L July 04, 2025 11:56:00 AM UT (TECH: ARR) 2075-0 Chloride [Moles/volume] in Serum or Plasma N 101 mmol/L 98 mmol/L - 107 mmol/L July 04, 2025 11:56:00 AM UTC (TECH: ARR) 8-9 Carbon dioxide, total [Moles/volume] in Serum or Plasma N 26.0 mmol/L 21.0 mmol/L - 32.0 mmol/L July 04, 2025 11:56:00 AM UTC (TECH: ARR) 91180-7 Anion gap in Blood N 14.4 D ec2024 11:56:00 AM UTC (TECH: ARR) 2345-7 Glucose [Mass/volume] in Serum or Plasma H 147 mg/dl 70 mg/dl - 120 mg/dl July 04, 2025 11:56:00 AM UTC (TECH: ARR) 6299-2 Urea nitrogen [Mass/volume] in Blood N 11 mg/dL 7 mg/dL - 18 mg/dL July 04, 2025 11:56:00 AM UTC (TECH: ARR) 84115-8 Creatinine [Moles/volume] in Blood N 1.2 mg/dL 0.6 mg/dL - 1.3 mg/dL July 04, 2025 11:56:00 AM UTC (TECH: ARR) 70496-5 Glomerular filtration rate/1.73 sq M.predicted by Creatinine-based formula (MDRD) N 64 mlpermin 60 mlpermin July 04, 2025 11:56:00 AM UTC (TECH: ARR) 86070-0 Osmolality of Serum or Plasma by calculated by sum of electrolytes N 289 mosm/kg 275 mosm/kg - 301 mosm/kg July 04, 2025 11:56:00 AM UTC (TECH: ARR) 64608-0 Calcium [Mass/volume] in Serum or Plasma L 8.4 mg/dl 8.5 mg/dl - 10.5 mg/dl July 04, 2025 11:56:00 AM UTC (TECH: ARR) ORDER 3600: PROCALCITONIN (L OINC: 61852-0) ORDER DATE: July 03, 2025 10:19:00 PM UT Specimen Source: PLASMA Specimen Type: Plasma specim en PERFORMING LAB: [address] [id number] Result Comment: Final Result Date: July 04, 2025 1:30:00 AM UT (TECH: AY) LOINC TEST FLAG [place] [address]-1 Procalcitonin [Mass/volume] in Serum or Plasma by Immunoassay N <0.05 ng/mL 0.00 ng/mL - 0.5 ng/mL July 04, 2025 1:30:00 AM UTC (TECH: AY) ORDER 3700: VANCOMYCIN TROUG H (LOINC: 4092-3) ORDER DATE: July 04, 2025 12:18:00 PM UTC Specimen Source: SERUM Specimen Type: Serum specime n PERFORMING LAB: [address] [id number] Result Comment: Final Result Date: July 05, 2025 9:58:00 AM UTC (TECH: TGD) LOINC TEST FLAG RESULT REFERENCE RANGE UPDA GIGI BY 4092-3 Vancomycin [Mass/volume] in Serum or Plasma --trough N 12.4 ug/mL 12 ug/mL - 20 ug/mL July 05, 2025 9:58:00 AM UTC (TECH: TGD) ORDER 4700: CREATINE KINASE CK (LOINC: 2157-6) ORDER DATE: July 05, 2025 12:17:00 PM UTC Specimen Source: PLASMA Specimen Type: Plasma specim en PERFORMING LAB: [address] [id number] Result Comment: Final Result Date: July 05, 2025 12:34:00 PM UTC (TECH: ADB) LOINC TEST FLAG RESULT REFERENCE RANGE UPDA GIGI BY 2157-6 Creatine kinase [Enzymatic activity/volume] in Serum or Plasma N 221 IU/l 35 IU/l - 232 IU/l July 05, 2025 12:34:00 PM UTC (TECH: ADB) LABORATORY NARRATIVE RESULTS Information is not available RADIOLOGY RESULTS ORDER 3200: CHEST PORTABLE ( LOINC: 50435-9) ORDER DATE: July 03, 2025 10:18:00 PM UTC PERFORMING LAB: [address] [id number] Final Result Date: July 04, 2025 1:49:26 PM UTC [facility] l [address] [place] [address] Name: ISATU YANEZ Exam Date: 07/04/2025 : 1950 Age 74 years Gender: M Physician: LANDON GARCIA Facility: [facility] Facility HSV: Outpatient Exam: CHEST PORTABLE PROCEDURE: XR CHEST 1 VIEW PORTABLE, 07/04/2025 2:02 AM [employer] CLINICAL INDICATION: pneumonia. COMPARISON: June 25, 2024 TECHNIQUE: Single frontal projection of the chest FINDINGS: Lines/Tubes: None Lungs: Hypoinflation. Costodiaphragmatic angles are within normal limits. No large pneumothorax. No large effusion. Mediastinum: Cardiomediastinal silhouette is within normal limits. Bones: Unremarkable. Soft tissues: Unremarkable. IMPRESSION: No specific evidence of acute cardiopulmonary process, within the limitations of hypoventilation. Electronically signed by: Nikki Szymanski MD 07/04/2025 08:49 AM [facility] Dictated By: Nikki Szymanski Transcribed By: Transcribed On: 07/04/2025 8:49 AM Electronically signed by: Nikki Szymanski 07/04/2025 Thank you for referring ISATU YANEZ to [facility]. Legally authenticated by KAMLA SHAVER 2025-07-04 08:49:26 PATHOLOGY NARRATIVE RESULTS Information is not available MICROBIOLOGY RESULTS No Micro Labs/Results Exist for Patient BLOOD ADMIN RESULTS Information is not available TREATMENT PLAN DISCHARGE MEDICATIONS Status RXNORM Medication Dose Route Frequency Dates Comments U pdated By Continued 775685 Losartan Potassium Oral Tablet 100 MG 100 MG ORAL ONCE DAILY Prescribe d: July 05, 2025 1:21:51 PM UT [id number] on July 05, 2025 1:21:51 PM UT Continued 306907 DAPTOMYCIN 1000 MG INTRAVENOUS EVERY 24 HOURS Prescribe d: July 05, 2025 1:21:51 PM UTC 100 ML/HR 10 MG/KG FOR ENDOCARDIT IS ONLY [id number] on July 05, 2025 1:21:51 PM UTC Continued 419584 LORazepam Oral Tablet 1 MG 1 MG ORAL THREE TIMES A DAY Prescribe d: July 05, 2025 1:21:51 PM UTC [id number] on July 05, 2025 1:21:51 PM UT Continued 6163620 sodium chloride 0.9% 50 ML INTRAVENOUS EVERY 24 HOURS Prescribe d: July 05, 2025 1:21:51 PM UT 100 ML/HR 10 MG/KG FOR ENDOCARDIT IS ONLY [id number] on July 05, 2025 1:21:51 PM UT Continued 623793 Finasteride Oral Tablet 5 MG 5 MG ORAL ONCE DAILY Prescribe d: July 05, 2025 1:21:51 PM UT [id number] on July 05, 2025 1:21:51 PM UT Continued 825352 DULoxetine HCl Oral Capsule Delayed Release Particles 60 MG 60 MG ORAL ONCE DAILY Prescribe d: July 05, 2025 1:21:51 PM UT [id number] on July 05, 2025 1:21:51 PM UT Continued 3826431 Trelegy Ellipta Inhalation Aerosol Powder Breath Activated 100-62.5-25 MCG/ACT 1 PUF INHALED ONCE DAILY Prescribe d: July 05, 2025 1:21:51 PM UT [id number] on July 05, 2025 1:21:51 PM UT Continued 467602 Tamsulosin HCl Oral Capsule 0.4 MG 2 TAB ORAL ONCE DAILY Prescribe d: July 05, 2025 1:21:51 PM UT [id number] on July 05, 2025 1:21:51 PM UT Continued 651808 Singulair Oral Tablet 10 MG 10 MG ORAL ONCE DAILY Prescribe d: July 05, 2025 1:21:51 PM UT [id number] on July 05, 2025 1:21:51 PM UT Continued 046323 Pantoprazol e Sodium Oral Tablet Delayed Release 40 MG 40 MG ORAL ONCE DAILY Prescribe d: July 05, 2025 1:21:51 PM UT [id number] on July 05, 2025 1:21:51 PM UT Continued 870601 traZODone HCl Oral Tablet 150 MG 150 MG ORAL ONCE DAILY Prescribe d: July 05, 2025 1:21:51 PM UT [id number] on July 05, 2025 1:21:51 PM UT Continued 7598611 Percocet Oral Tablet 5-325 MG 5 MG ORAL EVERY FOUR HOURS NEEDED Prescribe d: July 05, 2025 1:21:51 PM UT [id number] on July 05, 2025 1:21:51 PM [facility] PATIENT OPEN ORDERS Code System Descripti on Frequency Occurrenc es Priority Category Start Date Ordering Physicia n Updated By 6462-6 LOINC Bacteria identifie d in Wound by Culture ONE TIME 0 Routine July 03, 2025 5:20:00 PM UT MARINO TANYA [id number] on July 03, 2025 5:58:00 PM [facility] 8100-0 LOINC Specimen preparati on [Type] of Unspecifi ed spec ONE TIME 0 Routine July 03, 2025 5:22:00 PM UT PICHARDO TANYA [id number] on July 03, 2025 5:58:00 PM UT 635-3 LOINC Bacteria identifie d in Unspecifi ed specimen by ONE TIME 0 Routine July 03, 2025 5:32:00 PM UT PICHARDO TANYA [id number] on July 03, 2025 5:58:00 PM [facility] 600-7 LOINC Bacteria identifie d in Blood by Culture ONE TIME 0 Routine July 03, 2025 10:16:00 PM [facility] JOSE Stephen [id number] on July 03, 2025 10:16:00 PM [facility] 600-7 LOINC Bacteria identifie d in Blood by Culture ONE TIME 0 Routine July 03, 2025 10:16:00 PM [facility] JOSE Stephen [id number] on July 03, 2025 10:16:00 PM [facility] SCHEDULED PROCEDURES Code System Description Status Scheduled Date Upd ated By Patient scheduled procedure information is not available. MEDICATIONS HOME MEDICATIONS Status RXNORM [facility] Medication Dose Route Frequency Dates Comments Reported By Updated By Active 083867 17158 93095 0 DULoxetine HCl Oral Capsule Delayed Release Particles 60 MG 60.0 MG ORAL DAILY Last Dose: [facility] 2024 10:00: 00 PM [facility] [id number] on July 03, 2025 3:49:50 PM [facility] Active 549846 78957 57413 6 Finasteride Oral Tablet 5 MG 5.0 MG ORAL DAILY Last Dose: [id number] on June 27, 2025 4:37:32 PM [facility] Active 342822 96273 70105 1 LORazepam Oral Tablet 1 MG 1.0 MG ORAL TID Last Dose: [facility] 2024 1:00:0 0 PM [facility] [id number] on July 03, 2025 3:49:20 PM UT Active 509476 16338 73074 0 Losartan Potassium Oral Tablet 100 MG 100.0 MG ORAL DAILY Last Dose: [facility] 2024 3:30:0 0 AM [facility] [id number] on July 03, 2025 3:49:59 PM UT Active 041833 84895 67788 0 Pantoprazole Sodium Oral Tablet Delayed Release 40 MG 40.0 MG ORAL DAILY Last Dose: [id number] on June 27, 2025 4:37:40 PM UT Active 305141 52821 81543 3 Singulair Oral Tablet 10 MG 10.0 MG ORAL DAILY Last Dose: [facility] 2024 10:00: 00 PM [facility] [id number] on July 03, 2025 3:50:09 PM UT Active 161946 62142 16479 1 Tamsulosin HCl Oral Capsule 0.4 MG 2.0 TAB ORAL DAILY Last Dose: [facility] 2024 10:00: 00 PM [facility] [id number] on July 03, 2025 5:50:25 PM [facility] Active 071188 08406 78901 1 traZODone HCl Oral Tablet 150 MG 150.0 MG ORAL DAILY Last Dose: [facility] 2024 3:30:0 0 AM [facility] [id number] on July 03, 2025 3:50:33 PM [facility] Active 5947543 23737 01527 0 Trelegy Ellipta Inhalation Aerosol Powder Breath Activated 100-62.5-25 MCG/ACT 1.0 PUF INHALA TION DAILY Last Dose: [facility] 2024 1:00:0 0 PM [facility] [id number] on July 03, 2025 5:52:50 PM UT DISCHARGE MEDICATIONS Status RXNORM [facility] Medication Dose Route Frequency Dates Dis pense Data Comments Physician Updated By [facility] ed [id number] 1732 2019 330 Losartan Potassium Oral Tablet 100 MG 100.0 MG ORAL ONCE DAILY Prescr ibed: [facility] 2024 1:21:5 1 PM UT Fill Status = Unknown, Repeat Number = 0, Quantity = 0 AJ CM [id number] on July 05, 2025 1:21:51 PM [facility] ed [id number] 4424 2353 350 DAPTOMYCIN 1000. 0 MG INTRAV ENOUS EVERY 24 HOURS Prescr ibed: [facility] 2024 1:21:5 1 PM UT Fill Status = Unknown, Repeat Number = 0, Quantity = 0 100 ML/HR 10 MG/KG FOR ENDOCARDI TIS ONLY AJ CM [id number] on July 05, 2025 1:21:51 PM UT Continu ed 939203 9197 9391 301 LORazepam Oral Tablet 1 MG 1.0 MG ORAL THREE TIMES A DAY Prescr ibed: [facility] 2024 1:21:5 1 PM UTC Fill Status = Unknown, Repeat Number = 0, Quantity = 0 AJ CM [id number] on July 05, 2025 1:21:51 PM [facility] Continu ed [id number] 5146 8004 941 sodium chloride 0.9% 50.0 ML INTRAV ENOUS EVERY 24 HOURS Prescr ibed: [facility] 2024 1:21:5 1 PM UTC Fill Status = Unknown, Repeat Number = 0, Quantity = 0 100 ML/HR 10 MG/KG FOR ENDOCARDI TIS ONLY JA CM [id number] on July 05, 2025 1:21:51 PM [facility] Continu ed 572308 0506 3735 556 Finasteride Oral Tablet 5 MG 5.0 MG ORAL ONCE DAILY Prescr ibed: [facility] 2024 1:21:5 1 PM UTC Fill Status = Unknown, Repeat Number = 0, Quantity = 0 AJ CM [id number] on July 05, 2025 1:21:51 PM [facility] Continu ed [id number] 5325 7001 993 DULoxetine HCl Oral Capsule Delayed Release Particles 60 MG 60.0 MG ORAL ONCE DAILY Prescr ibed: [facility] 2024 1:21:5 1 PM UTC Fill Status = Unknown, Repeat Number = 0, Quantity = 0 AJ CM [id number] on July 05, 2025 1:21:51 PM UT Continu ed [id number] 5234 3087 710 Trelegy Ellipta Inhalation Aerosol Powder Breath Activated 100-62.5-25 MCG/ACT 1.0 PUF INHALE D ONCE DAILY Prescr ibed: [facility] 2024 1:21:5 1 PM UTC Fill Status = Unknown, Repeat Number = 0, Quantity = 0 AJ CM [id number] on July 05, 2025 1:21:51 PM UT Continu ed 379716 9981 120 601 Tamsulosin HCl Oral Capsule 0.4 MG 2.0 TAB ORAL ONCE DAILY Prescr ibed: [facility] 2024 1:21:5 1 PM UTC Fill Status = Unknown, Repeat Number = 0, Quantity = 0 AJ CM [id number] on July 05, 2025 1:21:51 PM [facility] Continu ed 323321 6967 5016 403 Singulair Oral Tablet 10 MG 10.0 MG ORAL ONCE DAILY Prescr ibed: [facility] 2024 1:21:5 1 PM UTC Fill Status = Unknown, Repeat Number = 0, Quantity = 0 AJ CM [id number] on July 05, 2025 1:21:51 PM [facility] Continu ed [id number] Pantoprazol e Sodium Oral Tablet Delayed Release 40 MG 40.0 MG ORAL ONCE DAILY Prescr ibed: [facility] 2024 1:21:5 1 PM UT Fill Status = Unknown, Repeat Number = 0, Quantity = 0 AJ CM [id number] on July 05, 2025 1:21:51 PM [facility] Continu ed [id number] traZODone HCl Oral Tablet 150 MG 150.0 MG ORAL ONCE DAILY Prescr ibed: [facility] 2024 1:21:5 1 PM UT Fill Status = Unknown, Repeat Number = 0, Quantity = 0 AJ CM [id number] on July 05, 2025 1:21:51 PM [facility] Continu ed [id number] Percocet Oral Tablet 5-325 MG 5.0 MG ORAL EVERY FOUR HOURS NEEDED Prescr ibed: [facility] 2024 1:21:5 1 PM UT Fill Status = Unknown, Repeat Number = 0, Quantity = 0 AJ CM [id number] on July 05, 2025 1:21:51 PM [facility] INPATIENT MEDICATIONS Status RXNORM [facility] Medication Dose Route Frequency Rat e Quantity Dates Indication Dispense Data Comments Physician Updated [facility] [phone] NOZIN NASAL BRIM CURLER POPSWAB SWAB 1.0 EA NASAL ONE TIME ADMINISTRA TION (UNSCHEDUL ED) Start: [facility] 2024 11:00: 00 AM UT End: [facility] 2024 3:48:2 3 PM UT Fill Status = Completed , Repeat Number = 0, Quantity = 0.000 AJ CM [id number] on July 03, 2025 3:48:00 PM UTC Discont inued [id number] 2086 7084 001 ceFAZolin (ANCEF) 2 GM SOLR 2.0 GM INTRAV ENOUS ONE TIME ADMINISTRA TION (UNSCHEDUL ED) Start: [facility] 2024 11:00: 00 AM UTC End: [facility] 2024 3:48:2 3 PM UTC Fill Status = Completed , Repeat Number = 0, Quantity = 0.000 AJ CM [id number] on July 03, 2025 3:48:00 PM UTC Discont inued 075204 6962 8011 704 LACTATED RINGERS SOLN 1000. 0 ML INTRAV ENOUS ONE TIME ONLY (PACU) 25.0 ML/HR Start: [facility] 2024 10:56: 00 PM UTC End: [facility] 2024 9:50:3 6 PM UTC Fill Status = Completed , Repeat Number = 0, Quantity = 0.000 HENRIK Vanessa [id number] on July 03, 2025 9:50:00 PM UTC Discont inued [id number] 0040 9117 630 meperidine (DEMEROL) 25 MG/ML SOLN 12.5 MG INTRAV ENOUS NEEDED (PACU) Start: [facility] 2024 10:56: 00 PM UTC End: [facility] 2024 9:50:3 6 PM UTC Fill Status = Completed , Repeat Number = 0, Quantity = 0.000 HENRIK Vanessa [id number] on July 03, 2025 9:50:00 PM UTC Discont inued 1967194 0064 1624 725 fentaNYL (SUBLIMAZE) VIAL 50 MGC/ML SOLN 25.0 MCG INTRAV ENOUS EVERY 5 MINUTES NEEDED (PACU) Start: [facility] 2024 10:56: 00 PM UTC End: [facility] 2024 9:50:3 6 PM UTC Fill Status = Completed , Repeat Number = 0, Quantity = 0.000 HENRIK Vanessa [id number] on July 03, 2025 9:50:00 PM UTC Discont inued [id number] 5085 9426 401 HYDROmorpho ne (DILAUDID) 0.5 MG/0.5ML SOLN 0.5 MG INTRAV ENOUS EVERY 10 MINUTES NEEDED (PACU) Start: [facility] 2024 10:56: 00 PM UTC End: [facility] 2024 9:50:3 6 PM UTC Fill Status = Completed , Repeat Number = 0, Quantity = 0.000 HENRIK Vanessa [id number] on July 03, 2025 9:50:00 PM UTC Discont inued [id number] 5669 9128 331 HYDROmorpho ne (DILAUDID) 1 MG/ML SOLN 1.0 MG INTRAV ENOUS EVERY 10 MINUTES NEEDED (PACU) Start: [facility] 2024 10:56: 00 PM UTC End: [facility] 2024 9:50:3 6 PM UTC Fill Status = Completed , Repeat Number = 0, Quantity = 0.000 HENRIK Vanessa [id number] on July 03, 2025 9:50:00 PM UTC Discont inued [id number] 5239 5613 000 ondansetron (ZOFRAN) INJ 4 MG/2 ML SOLN 4.0 MG INTRAV ENOUS NEEDED (PACU) Start: [facility] 2024 10:56: 00 PM UTC End: [facility] 2024 9:50:3 6 PM UTC Fill Status = Completed , Repeat Number = 0, Quantity = 0.000 HENRIK Vanessa [id number] on July 03, 2025 9:50:00 PM UTC Discont inued 4707189 0051 7970 201 droperidol (INAPSINE) 2.5 MG/ML SOLN 0.625 MG INTRAV ENOUS NEEDED (PACU) Start: [facility] 2024 10:56: 00 PM UTC End: [facility] 2024 2:12:5 7 PM UTC Fill Status = Completed , Repeat Number = 0, Quantity = 0.000 HENRIK Vanessa [id number] on July 04, 2025 2:12:00 PM UTC Discont inued [id number] 7830 3041 112 midazolam (VERSED) 2 MG/2 ML SOLN 1.0 MG INTRAV ENOUS EVERY FIVE MINUTES NEEDED Start: [facility] 2024 10:56: 00 PM UTC End: [facility] 2024 9:50:3 6 PM UTC Fill Status = Completed , Repeat Number = 0, Quantity = 0.000 HENRIK Vanessa [id number] on July 03, 2025 9:50:00 PM UTC Discont inued [id number] 8566 1092 825 promethazin e (PHENERGAN) 25 MG/ML SOLN 12.5 MG INTRAV ENOUS NEEDED (PACU) Start: [facility] 2024 10:56: 00 PM UTC End: [facility] 2024 9:50:3 6 PM UTC Fill Status = Completed , Repeat Number = 0, Quantity = 0.000 HENRIK Vanessa [id number] on July 03, 2025 9:50:00 PM UTC Discont inued XXXX XXX0 011 promethazin e (PHENERGAN) 12.5 MG GEL 12.5 MG TOPICA L NEEDED (PACU) Start: [facility] 2024 10:56: 00 PM UTC End: [facility] 2024 9:50:3 7 PM UTC Fill Status = Completed , Repeat Number = 0, Quantity = 0.000 HENRIK Vanessa [id number] on July 03, 2025 9:50:00 PM UTC Discont inued [id number] 5446 9909 332 PACU - fentaNYL (SUBLIMAZE) 100 MCG/2ML SOLN 100.0 MCG INTRAV ENOUS ONE TIME ONLY (SCHEDULED DOSE) Start: [facility] 2024 3:37:0 0 PM UTC End: [facility] 2024 3:37:0 0 PM UTC Fill Status = Completed , Repeat Number = 0, Quantity = 1.000 PICHARDO TANYA INTERFAC ED on July 03, 2025 3:36:00 PM UTC Discont inued [id number] 8960 3046 817 bupivacaine -MPF 0.25% w/EPI 10 ML SOLN 10.0 ML INTRAV ENOUS ONE TIME ONLY (SCHEDULED DOSE) Start: [facility] 2024 4:49:0 0 PM UTC End: [facility] 2024 4:49:0 0 PM UTC Fill Status = Completed , Repeat Number = 0, Quantity = 1.000 PICHARDO TANYA INTERFAC ED on July 03, 2025 4:48:00 PM UTC Discont inued 8043959 5611 3028 420 vancomycin (VANCOCIN) 1000 MG SOLR 1000. 0 MG INTRAV ENOUS ONE TIME ONLY (SCHEDULED DOSE) Start: [facility] 2024 5:23:0 0 PM UTC End: [facility] 2024 5:23:0 0 PM UTC Fill Status = Completed , Repeat Number = 0, Quantity = 1.000 MARINO MARTÍNEZ [facility] ED on July 03, 2025 5:22:00 PM UTC Discont inued 232991 6012 6016 088 tamsulosin (FLOMAX) 0.4 MG CAPS 0.4 MG ORAL ONCE DAILY Start: [facility] 2024 2:00:0 0 PM UTC End: [facility] 2024 2:00:0 0 PM UTC Fill Status = Completed , Repeat Number = 0, Quantity = 0.000 YVETTE Stephen [id number] on July 03, 2025 6:56:00 PM UTC Discont inued 8942886 5154 3088 714 TRELEGY ELLIPTA 100-62.5-25 MCG/ACT AEPB 1.0 INH INHALE D ONCE DAILY Start: [facility] 2024 2:00:0 0 PM UTC End: [facility] 2024 1:21:5 1 PM UTC Fill Status = Completed , Repeat Number = 0, Quantity = 1.000 YVETTE Stephen [id number] on July 03, 2025 5:54:00 PM UTC Discont inued Free Text Med Singulair Oral Tablet 10 MG 10.0 MG ORAL ONCE DAILY Start: [facility] 2024 2:00:0 0 PM UTC End: [facility] 2024 2:00:0 0 PM UTC Fill Status = Completed , Repeat Number = 0, Quantity = 0.000 YVETTE Stephen [id number] on July 03, 2025 6:54:00 PM UTC Discont inued Free Text Med traZODone HCl Oral Tablet 150 MG 150.0 MG ORAL ONCE DAILY Start: [facility] 2024 2:00:0 0 PM UTC End: [facility] 2024 2:00:0 0 PM UTC Fill Status = Completed , Repeat Number = 0, Quantity = 0.000 YVETTE Stephen [id number] on July 03, 2025 6:55:00 PM UT Active 553049 6850 2070 290 losartan potassium (COZAAR) 100 MG TABS 100.0 MG ORAL ONCE DAILY Start: [facility] 2024 2:00:0 0 PM UTC End: [facility] 2024 7:39:0 0 PM UTC Fill Status = Completed , Repeat Number = 0, Quantity = 2.000 YVETTE KIERRA T [id number] on July 03, 2025 5:54:00 PM UT Active 673765 4191 4081 309 pantoprazol e (PROTONIX) 40 MG TBEC 40.0 MG ORAL ONCE DAILY Start: [facility] 2024 2:00:0 0 PM UTC End: [facility] 2024 7:39:0 0 PM UTC Fill Status = Completed , Repeat Number = 0, Quantity = 2.000 YVETTE KIERRA T [id number] on July 03, 2025 5:54:00 PM UT Active 335768 2549 9009 001 finasteride (PROSCAR) 5 MG TABS 5.0 MG ORAL ONCE DAILY Start: [facility] 2024 2:00:0 0 PM UTC End: [facility] 2024 7:39:0 0 PM UTC Fill Status = Completed , Repeat Number = 0, Quantity = 2.000 YVETTE KIERRA T [id number] on July 03, 2025 5:54:00 PM UT Active 422673 0977 1024 105 LORazepam (ATIVAN) 1 MG TABS 1.0 MG ORAL THREE TIMES A DAY Start: [facility] 2024 7:00:0 0 PM UTC End: [facility] 2024 7:39:0 0 PM UTC Fill Status = Completed , Repeat Number = 0, Quantity = 6.000 YVETTE KIERRA T [id number] on July 03, 2025 5:54:00 PM UT Discont inued Free Text Med DULoxetine HCl Oral Capsule Delayed Release Particles 60 MG 60.0 MG ORAL ONCE DAILY Start: [facility] 2024 2:00:0 0 PM UTC End: [facility] 2024 2:00:0 0 PM UTC Fill Status = Completed , Repeat Number = 0, Quantity = 0.000 YVETTEHO Stephen [id number] on July 03, 2025 6:55:00 PM UTC Discont inued 0829 0306 546 sodium chloride 0.9% FLUSH 10 ML SOLN 10.0 ML INTRAV ENOUS NEEDED Start: [facility] 2024 5:54:0 0 PM UTC End: [facility] 2024 1:21:5 1 PM UTC Fill Status = Completed , Repeat Number = 0, Quantity = 0.000 YVETTE Stephen [id number] on July 03, 2025 6:11:00 PM UTC Discont inued 0057334 8619 8010 250 PERCOCET 5-325 MG TABS 1.0 TAB ORAL EVERY FOUR HOURS NEEDED Start: [facility] 2024 5:54:0 0 PM UTC End: [facility] 2024 1:21:5 1 PM UTC Fill Status = Completed , Repeat Number = 0, Quantity = 0.000 YVETTE Stephen [id number] on July 03, 2025 6:11:00 PM UTC Discont inued 4104622 6332 3045 201 morphine sulfate (FK) 2 MG/ML SOLN 2.0 MG INTRAV ENOUS EVERY TWO HOURS NEEDED Start: [facility] 2024 5:54:0 0 PM UTC End: [facility] 2024 1:21:5 1 PM UTC Fill Status = Completed , Repeat Number = 0, Quantity = 0.000 YVETTE Stephen [id number] on July 03, 2025 6:11:00 PM UTC Discont inued 0090 4053 961 multiple vitamin (ONE-A-DAY) TABS 1.0 TAB ORAL ONCE DAILY Start: [facility] 2024 2:00:0 0 PM UTC End: [facility] 2024 1:21:5 1 PM UTC Fill Status = Completed , Repeat Number = 0, Quantity = 2.000 YVETTE Stephen [id number] on July 03, 2025 6:11:00 PM UTC Discont inued 9865072 2842 7012 901 docusate sodium (COLACE) 100 MG CAPS 100.0 MG ORAL EVERY TWELVE HOURS NEEDED Start: [facility] 2024 5:54:0 0 PM UTC End: [facility] 2024 1:21:5 1 PM UTC Fill Status = Completed , Repeat Number = 0, Quantity = 0.000 YVETTE Stephen [id number] on July 03, 2025 6:11:00 PM UTC Discont inued 0012 1043 130 MILK OF MAGNESIA 7.75 % 400 MG/5 ML SUSP 15.0 ML ORAL ONCE DAILY NEEDED Start: [facility] 2024 5:54:0 0 PM UTC End: [facility] 2024 1:21:5 1 PM UTC Fill Status = Completed , Repeat Number = 0, Quantity = 0.000 YVETTE Stephen [id number] on July 03, 2025 6:11:00 PM UTC Discont inued 708537 1643 4705 012 BISACODYL 10 MG SUPP 10.0 MG PER RECTUM - COMBAT SYSTEMS OFFICER AL ONCE DAILY NEEDED Start: [facility] 2024 5:54:0 0 PM UTC End: [facility] 2024 1:21:5 1 PM UTC Fill Status = Completed , Repeat Number = 0, Quantity = 0.000 YVETTE Stephen [id number] on July 03, 2025 6:11:00 PM UTC Discont inued 287341 3065 1034 708 famotidine (PEPCID) 20 MG TABS 20.0 MG ORAL TWICE A DAY Start: [facility] 2024 2:00:0 0 AM UTC End: [facility] 2024 1:21:5 1 PM UTC Fill Status = Completed , Repeat Number = 0, Quantity = 4.000 YVETTE Stephen [id number] on July 03, 2025 6:11:00 PM UTC Discont inued 815965 4166 0041 501 cyclobenzap rine (FLEXERIL) 10 MG TABS 10.0 MG ORAL EVERY EIGHT HOURS NEEDED Start: [facility] 2024 5:54:0 0 PM UTC End: [facility] 2024 1:21:5 1 PM UTC Fill Status = Completed , Repeat Number = 0, Quantity = 1.000 YVETTE Stephen [id number] on July 03, 2025 6:11:00 PM UTC Discont inued 455071 3107 4017 901 zolpidem tartrate (AMBIEN) 5 MG TABS 5.0 MG ORAL AT BEDTIME NEEDED Start: [facility] 2024 2:00:0 0 AM UTC End: [facility] 2024 1:21:5 1 PM UTC Fill Status = Completed , Repeat Number = 0, Quantity = 0.000 YVETTE Stephen [id number] on July 03, 2025 6:11:00 PM UTC Discont inued 4779553 0040 9710 102 sodium chloride 0.9% SOLN 250.0 ML INTRAV ENOUS EVERY TWELVE HOURS 275.0 ML/HR Start: [facility] 2024 5:54:0 0 PM UTC End: [facility] 2024 8:27:0 4 PM UTC Fill Status = Completed , Repeat Number = 0, Quantity = 0.000 YVETTE RIA Zafar [id number] on July 03, 2025 8:27:00 PM UTC Active 131928 0236 4087 501 montelukast sodium (SINGULAIR) 10 MG TABS 10.0 MG ORAL ONCE DAILY Start: [facility] 2024 2:00:0 0 PM UTC End: [facility] 2024 7:39:0 0 PM UTC Fill Status = Completed , Repeat Number = 0, Quantity = 2.000 YVETTE RIA Zafar [id number] on July 03, 2025 6:54:00 PM UTC Discont inued 382805 7615 2084 501 traZODone (DESYREL) 50 MG TABS 150.0 MG ORAL AT BEDTIME Start: [facility] 2024 2:00:0 0 AM UTC End: [facility] 2024 1:21:5 1 PM UTC Fill Status = Completed , Repeat Number = 0, Quantity = 6.000 YVETTE Stephen [id number] on July 03, 2025 6:55:00 PM UTC Discont inued 856877 4588 1009 809 DULoxetine (CYMBALTA) 30 MG CPEP 60.0 MG ORAL ONCE DAILY Start: [facility] 2024 2:00:0 0 PM UTC End: [facility] 2024 1:21:5 1 PM UTC Fill Status = Completed , Repeat Number = 0, Quantity = 4.000 YVETTEIrais Stephen [id number] on July 03, 2025 6:55:00 PM UTC Discont inued 1382309 6745 7082 499 vancomycin (VANCOCIN) 1500 MG SOLR 1500. 0 MG INTRAV ENOUS EVERY TWELVE HOURS 250.0 ML/HR Start: [facility] 2024 9:00:0 0 PM UTC End: [facility] 2024 11:46: 38 AM UTC Fill Status = Completed , Repeat Number = 0, Quantity = 16.000 YVETTE Stephen [id number] on July 05, 2025 11:46:00 AM UTC Discont inued 9524113 5105 9020 901 PROPOFOL 200 MG/20ML EMUL 400.0 MG INTRAV ENOUS ONE TIME ONLY (SCHEDULED DOSE) 16.667 MG/HR Start: [facility] 2024 8:39:0 0 PM UTC End: [facility] 2024 8:40:5 5 PM UTC Fill Status = Completed , Repeat Number = 0, Quantity = 2.000 MARINO MARTÍNEZ [id number] on July 03, 2025 8:41:00 PM UTC Discont inued 2806321 6967 3016 505 DEXAMETHASO NE SODIUM PHOSPHATE 20.0 MG INTRAV ENOUS ONE TIME ONLY (SCHEDULED DOSE) 0.833 MG/HR Start: [facility] 2024 8:39:0 0 PM UTC End: [facility] 2024 8:40:5 5 PM UTC Fill Status = Completed , Repeat Number = 0, Quantity = 1.000 MARINO TANYA [id number] on July 03, 2025 8:41:00 PM UTC Discont inued 0596418 3849 5613 000 ONDANSETRON HCL 4 MG/2ML SOLN 4.0 MG INTRAV ENOUS ONE TIME ONLY (SCHEDULED DOSE) 0.167 MG/HR Start: [facility] 2024 8:39:0 0 PM UTC End: [facility] 2024 8:40:5 5 PM UTC Fill Status = Completed , Repeat Number = 0, Quantity = 1.000 PICHARDO TANYA [id number] on July 03, 2025 8:41:00 PM UTC Discont inued 6702269 9793 9662 902 QUELICIN 20 MG/ML SOLN 200.0 MG INTRAV ENOUS ONE TIME ONLY (SCHEDULED DOSE) 8.333 MG/HR Start: [facility] 2024 8:39:0 0 PM UTC End: [facility] 2024 8:40:5 5 PM UTC Fill Status = Completed , Repeat Number = 0, Quantity = 1.000 MARINO [id number] on July 03, 2025 8:41:00 PM UTC Discont inued 9785 8409 101 PHENYLEPHRI NE HCL (PRESSORS) 1 1.0 MG INTRAV ENOUS ONE TIME ONLY (SCHEDULED DOSE) 0.042 MG/HR Start: [facility] 2024 8:39:0 0 PM UTC End: [facility] 2024 8:40:5 5 PM UTC Fill Status = Completed , Repeat Number = 0, Quantity = 1.000 MARINO MARTÍNEZ [id number] on July 03, 2025 8:41:00 PM UTC Discont inued 576337 [id number] 1828 7180 525 GLYCOPYRROL ATE 1 MG/5ML SOLN 1.0 MG INTRAV ENOUS ONE TIME ONLY (SCHEDULED DOSE) 0.042 MG/HR Start: [facility] 2024 8:39:0 0 PM UTC End: [facility] 2024 8:40:5 5 PM UTC Fill Status = Completed , Repeat Number = 0, Quantity = 1.000 MARINO [id number] on July 03, 2025 8:41:00 PM UTC Discont inued 7676177 1878 9467 202 LIDOCAINE HCL (PF) 2 % SOLN 10.0 ML ONE TIME ONLY (SCHEDULED DOSE) Start: [facility] 2024 8:39:0 0 PM UTC End: [facility] 2024 8:40:5 5 PM UTC Fill Status = Completed , Repeat Number = 0, Quantity = 1.000 MARINO MARTÍNEZ [id number] on July 03, 2025 8:41:00 PM UTC Discont inued 9826922 1839 7024 110 cefepime (MAXIPIME) 2 GM SOLR 2.0 GM INTRAV ENOUS EVERY TWELVE HOURS 25.0 ML/HR Start: [facility] 2024 1:00:0 0 PM UTC End: [facility] 2024 11:46: 38 AM UTC Fill Status = Completed , Repeat Number = 0, Quantity = 14.000 JOSE Stephen [id number] on July 05, 2025 11:46:00 AM UTC Discont inued 6232837 4849 4036 009 potassium chloride (K-DUR) 20 MEQ TBCR 40.0 MEQ ORAL GIVE ONE DOSE NOW Start: [facility] 2024 6:18:0 0 PM UTC End: [facility] 2024 6:34:4 6 PM UTC Fill Status = Completed , Repeat Number = 0, Quantity = 2.000 KYLEIGH TORRES [id number] on July 04, 2025 6:34:00 PM UTC Discont inued 118714 0444 3061 401 hydrALAZINE (APRESOLINE ) 20 MG/ML SOLN 10.0 MG INTRAV ENOUS GIVE ONE DOSE NOW Start: [facility] 2024 8:30:0 0 AM UTC End: [facility] 2024 8:40:1 2 AM UTC Fill Status = Completed , Repeat Number = 0, Quantity = 1.000 YOLIS BRYANT [id number] on July 05, 2025 8:40:00 AM UT Active 2063458 6745 7081 350 DAPTOMYCIN 500 MG SOLR 1000. 0 MG INTRAV ENOUS EVERY 24 HOURS 100.0 ML/HR Start: [facility] 2024 5:00:0 0 PM UTC End: [facility] 2024 7:39:0 0 PM UTC Fill Status = Completed , Repeat Number = 0, Quantity = 6.000 JOSE Stephen [id number] on July 05, 2025 11:47:00 AM UT Active 1263696 0033 8004 941 sodium chloride 0.9% SOLN 50.0 ML INTRAV ENOUS EVERY 24 HOURS 100.0 ML/HR Start: [facility] 2024 5:00:0 0 PM UTC End: [facility] 2024 7:39:0 0 PM UTC Fill Status = Completed , Repeat Number = 0, Quantity = 6.000 JOSE Stephen [id number] on July 05, 2025 11:47:00 AM UT SOCIAL HISTORY SOCIAL HISTORY - Smoking Status SNOMED-CT Social History Element Description Effective Dates Offered Cessation Comment Updated By [id number] Current Tobacco smoking status Former Smoker [id number] on June 27, 2025 4:39:10 PM UT SOCIAL HISTORY - Gender Sex: Male SOCIAL HISTORY - Status : status i nformation is not available Intention in Next Year: intention information is not available SOCIAL HISTORY - Assessments Code System Description Status Date Value of Assessment Updated By Comment Assessment Information is no t available SOCIAL HISTORY - [employer] Affiliation [employer] information is not av ailable SOCIAL HISTORY - Legal Sex Legal Sex : Male (finding) SOCIAL HISTORY - Sexual Behavior Sexual Orientation Gender Identity SNOMED-CT Description SNO MED -CT Description Activity Level No of Partners Partner Type UpdatedBy Information is not available SOCIAL HISTORY - Occupation Occupation information is no t available VITAL SIGNS PATIENT VITAL SIGNS This section displays the mo st recent value for each vital sign as of July 05, 2025 8:39:05 PM UTC Loinc Code Vital Sign Activity Date Result Updated By 8302-2 Body height July 03 3:48:50 PM UTC 172.72 cm (68.0 in) [id number] on July 03, 2025 3:48:50 PM UTC 76948-4 Body mass index (BMI ) [Ratio] July 03, 2025 3:48:50 PM UTC 39.052 kg/m2 [id number] on July 03, 2025 3:48:50 PM UTC 3140-1 Body Surface Area Derived From Formula July 03, 2025 3:48:50 PM UTC 2.2732 m2 [id number] on July 03, 2025 3:48:50 PM UTC 8310-5 Body temperature July 05 5:16:00 PM UTC 97.6 [degF] [id number] on July 05, 2025 8:09:50 PM UTC 50009-6 Body weight Measured June 3:48:50 PM UTC 116.5 kg (257.0 lb) [id number] on July 03, 2025 3:48:50 PM UTC 8462-4 Diastolic blood pressure July 05, 2025 5:49:00 PM UTC 102.0 mm[Hg] [id number] on July 05, 2025 5:49:36 PM UTC 8867-4 Heart rate July 05 5:52:00 PM UTC 84 /min [id number] on July 05, 2025 5:52:47 PM UTC 8478-0 Mean blood pressure July 05, 2025 4:59:00 AM UTC 127.0 mm[Hg] [id number] on July 05, 2025 4:59:31 AM [facility] 08604-9 Oxygen saturation in Arterial blood by Pulse oximetry July 05, 2025 5:16:00 PM UTC 96.0 % [id number] on July 05, 2025 8:09:50 PM [place] 9279-1 Respiratory rate July 05 5:16:00 PM UTC 20 /min [id number] on July 05, 2025 8:09:50 PM [facility] 8480-6 Systolic blood pressure July 05, 2025 5:49:00 PM UTC 181.0 mm[Hg] [id number] on July 05, 2025 5:49:36 PM [facility] 99442-4 Vital capacity [Volume] Respiratory system by Spirometry July 05, 2025 1:45:00 PM [place] 1250.0 ml [id number] on July 05, 2025 4:39:43 PM [facility] PEDIATRIC GROWTH CHART - VITAL SIGNS This section displays Head C ircumference Percentile, Weight for Length Percentile and BMI Percentile Loinc Code Pediatric Measure Age (Months) Result Updat ed By No Pediatric Growth Chart Pe rcentile Information Available. ENCOUNTERS ENCOUNTER INFORMATION Reason for Visit REVISION OF SCS AUBRIE ROGEL IN LEFT BUTTOCK Admission July 04, 2025 6:08:[address] [address] Discharge July 05, 2025 7:39:00 PM [facility] DISCHARGED TO HOME OR SELF CARE ENCOUNTER DIAGNOSES Notes information is not christa ilable. Code System Diagnosis Onset Date Diagnosis information is not available. 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 HOSPITAL DISCHARGE INSTRUCTION DISCHARGE INSTRUCTION Encounter [id number] Admit Date July 04, 2025 6: 08:00 PM UTC Discharge Date July 05, 2025 7: 39:00 PM [facility] PATIENT EDUCATION SUMMARY Patient/Visit Information: Patient Name: ISATU YANEZ Diag: Attending Caregiver: MARIANA HUMPHREY Discharge Instruction Sheets Provided: Medication Side Effects Suicide - Managing your Feelings Dr. Pichardo Spinal Cord Stimulator Fall Prevention in Hospitals and in the Home Anesthesia, [facility] DC Instructions After BEFAST-Stroke Warning Signs Discharge Information [facility] - Medication Management KYNECT- HELP Chronic Back Pain, [id number] Patient Instructions: Followup Appointments/Instructions: CONSULTATION NOTE DISCHARGE SUMMARY NOTE DISCHARGE SUMMARY NOTE Note Title Dr. Garcia Infusion Orders for Home Health Date Of Service July 05, 2025 12 :18:23 PM [facility] Created By [id number] on July 05, 2025 12:18:23 PM [place] Signed By DAVON on July 05, 2025 12:19:30 PM [facility] Dr. Garcia Office Informati on [facility] Infectious Disease LANDON GARCIA MD [address] [place] [address] Diagnosis Spinal stimulator infection Antibiotic dose, frequency, and duration Daptomycin 1000 mg intravenously Q 24 hours through 08/15/24. Weekly labs to be drawn and faxed weekly to Dr. Garcia at [phone] Total CK, CRP, ESR, CMP, CBC PICC line dressing weekly Home health for PICC line dressing changes (weekly) and IV antibiotic instructions. THANH Kit THANH kit to be supplied to patient (home health instruct on use) Electronically signed by JOSE DAMON on 0719 PROGRESS NOTE CARE TEAM CARE wildlife ecologist Role on Team Location Telecom Status Start Date End Mick e Updated By MARIANA DAMON Consulting [address] [place] [address] normal July 04, 2025 5:54:31 PM [facility] July 05, 2025 7:39:00 PM [facility] [id number] on July 04, 2025 5:54:31 PM [facility] JOSE DAMON Consulting [facility] [address] [place] [address] normal July 03, 2025 6:55:39 PM [facility] July 05, 2025 7:39:00 PM [facility] [id number] on July 04, 2025 5:54:31 PM [facility] MARIANA DAMON Attending [address] [place] [address] normal July 03, 2025 6:53:21 PM UTC July 05, 2025 7:39:00 PM UTC [id number] on July 04, 2025 5:54:31 PM UTC PICHARDO TANYA PHY Consulting [address] , [facility], [place], [address] normal July 03, 2025 6:11:50 PM UTC July 05, 2025 7:39:00 PM UTC [id number] on July 04, 2025 5:54:31 PM UTC SHERMAN Mendoza [facility] [address], [place], [address] normal June 17, 2025 7:33:53 PM UTC July 04, 2025 6:08:26 PM UTC [id number] on July 04, 2025 5:54:31 PM UTC PICHARDO TANYA MAY Attending [address] , [facility], [place], [address] normal June 17, 2025 7:33:53 PM UTC July 03, 2025 6:53:21 PM UTC [id number] on July 04, 2025 5:54:31 PM UTC PICHARDO TANYA PHY Admitting [address] [facility], [place], [address] normal June 17, 2025 7:33:53 PM UTC July 05, 2025 7:39:00 PM UTC [id number] on July 04, 2025 5:54:31 PM UTC INSURANCE PROVIDERS INSURANCE PROVIDER Coverage Status - Effective Date Coverage Type Payor Plan Order Relationship To Subscriber Insurance Plan No Insurance Plan 2027-07-18 M PRIMARY 18 [id number] MEDICARE 2027-07-18 C SECONDARY [id number] [facility]
[2025-07-07 10:15] VITALS: BMI 38.0
--- OUTSIDE RECORDS SUMMARY | 2025-07-07 10:17 | XMS_ITS | Encounter Summary ---
Author Organization [employer] ([place], [place], [place], [place], [place]) Address [address] [place] [address] Care Team Providers Care Elementary [employer] Science Teacher Name Role Phone Maya Torres Reji BELCHER Primary Care Provider [phone] Encounter Details Date Type Department Care Team (Late st Contact Info) Description 10/27/2020 Transcribed Document [facility] [place] Family Medicine [address] [place] [address] ProviderJean MD [address] [place], [place] [id number] Social History Tobacco Use Types Packs/Day Years Used Date Smoking Tobacco: Never Assessed Sex and Gender Information Value Date Recorded Sex Assigned at Not on file Legal Sex Male 5:19 PM CDT Gender Identity Not on file Sexual Orientation Not on file documented as of this encounter Miscellaneous Notes * Cerner Conversion Note - Jean ProviderMD - 10/27/2020 11:59 AM CDT [place] Suicide Severity Rating Scale (C-SSRS) Entered On: 10/27/2020 12:32 EDT Performed On: 10/27/2020 12:21 EDT by Jasmin Thornton RN [place] Suicide Severity Rating Scale (C-SSRS) CSSRS Past Month Wish to be : No CSSRS Past Month Suicidal Thoughts : No CSSRS Lifetime Suicide Behavior : No Suicide Severity Rating Score : 0 Suicide Severity Rating : No Additional Care Required at this time Jasmin Thornton RN - 10/27/2020 12:21 EDT documented in this encounter Plan of Treatment Not on file documented as of this encounter Visit Diagnoses Not on filedocumented in this encounter Care Teams Elementary [employer] Science Teacher Relationship Specialty Start Date End Date Maya Torres, BEHAVIORAL HEALTH ASSOCIATE [address] [phone] PCP - General Family Medicine 08/27/22 documented as of this encounter
--- OUTSIDE RECORDS SUMMARY | 2025-07-07 10:17 | XMS_ITS | Encounter Summary ---
Author Organization [employer] ([place], [place], [place], [place], [place]) Address [address] [place] [address] Care Team Providers Care Professor Of Spanish Name Role Phone Maya Torres Reji BELCHER Primary Care Provider [phone] Encounter Details Date Type Department Care Team (Late st Contact Info) Description 10/27/2020 Transcribed Document [facility] [place] [facility] [place] [address] ProviderJean MD [address] [place] [address] Social History Tobacco Use Types [...] Jasmin Thornton RN - 10/27/2020 12:35 EDT documented in this encounter Plan of Treatment Not on file documented as of this encounter Visit Diagnoses Not on filedocumented in this encounter Care Teams Professor Of Spanish Relationship Specialty Start Date End Date Maya Torres, COMPUTER EQUIPMENT INSTALLER [address] [phone] PCP - General Family Medicine 08/27/22 documented as of this encounter
--- OUTSIDE RECORDS SUMMARY | 2025-07-07 10:17 | XMS_ITS | Encounter Summary ---
Author Organization [employer] ([place], [place], [place], [place], [place]) Address [address] [place] [address] Care Team Providers Care Barrel Cutter Name Role Phone Maya Torres Reji BELCHER Primary Care Provider [phone] Encounter Details Date Type Department Care Team (Late st Contact Info) Description 10/27/2020 Transcribed Document [facility] [place] Family Medicine [address] [place] [address] ProviderJean MD [address] [place] [address] Social History Tobacco Use Types [...] on filedocumented in this encounter Care Teams Barrel Cutter Relationship Specialty Start Date End Date Maya Torres, APARTMENT MAINTENANCE [address] [phone] PCP - General Family Medicine 08/27/22 documented as of this encounter
--- OUTSIDE RECORDS SUMMARY | 2025-07-07 10:17 | XMS_ITS | Clinical Summary ---
Author Organization [facility] Address [address] [place] [address] Care Team Providers Care Motorboat Operator Name Role Phone Unavailable Primary Care Provider [...]
--- OUTSIDE RECORDS SUMMARY | 2025-07-07 10:17 | XMS_ITS | Encounter Summary ---
Author Organization [employer] ([place], [place], [place], [place], [place]) Address [address] [place] [address] Care Team Providers Care Production Line Operator Name Role Phone Maya Torres Reji BELCHER Primary Care Provider [phone]- [phone] Encounter Details Date Type Department Care Team (Late st Contact Info) Description 10/27/2020 Transcribed Document [facility] [place] [address] ProviderJean MD [address] [place], [place] [id number] Social History Tobacco Use Types Packs/Day Years [...] on filedocumented in this encounter Care Teams Production Line Operator Relationship Specialty Start Date End Date Maya Torres, CABINET ASSEMBLER [address] [phone] PCP - General Family Medicine 08/27/22 documented as of this encounter
--- OUTSIDE RECORDS SUMMARY | 2025-07-07 10:17 | XMS_ITS | Encounter Summary ---
Author Organization [employer] ([place], [place], [place], [place], [place]) Address [address] [place] [address] Care Team Providers Care Emt/Dispatcher Name Role Phone Maya Torres Reji BELCHER Primary Care Provider [phone]- [phone] Encounter Details Date Type Department Care Team (Late st Contact Info) Description 10/27/2020 Transcribed Document [facility] [place] [address] [place] [address] ProviderJean MD [address] [place] [address] Social History Tobacco Use Types [...] 10/27/2020 12:55:00 EDT fentaNYL,50mcg IV Push,Left Antecubital [place] Pain Assessment Pain Scale Used : 0-10 [...] on filedocumented in this encounter Care Teams Emt/Dispatcher Relationship Specialty Start Date End Date Maya Torres, TOBACCO SORTER [address] [phone] PCP - General Family Medicine 08/27/22 documented as of this encounter
--- OUTSIDE RECORDS SUMMARY | 2025-07-07 10:18 | XMS_ITS | Clinical Summary ---
Author Organization [facility] Address [address] [place] [address] Phone Care Team Providers Care Crap Game Box Person Name Role Phone Jose Cruz COLEMAN, Domingo Jett Unavailable [phone] Olga Licea APRN Unavailable [phone] Reason for Visit and Chief Complaint The Chief Complaint is: back pain Problems Includes: Problems addressed during this encounter and other active Problems All Visits Onset Date Date of Diagnosis Resolved Date Provider Condition Status Soft Tissue Pain Hand 12/05/2024 12/05/2024 Flako Pulido PA-C Active Last Documented On 5 1:43AM ; [facility] History of Lower Back Pain M idline Right Side 04/12/2022 04/12/2022 Holden Modi PA-C Active Last Documented On 5 1:41AM ; [facility] Joint Pain Left Thumb 03/12/2021 03/12/2021 Charles Hernandez MD Active Last Documented On 5 1:40AM ; [facility] Joint Pain in Both Knees 04/05/2019 04/05/2019 Arlet Billingsley MD Active Last Documented On 5 1:39AM ; [facility] Plan of Treatment - Patient screened for future fall risk: documentation of any fall with injury in past year - Last Documented On 06/11/2025 1:20PM ; [facility], [facility] Fall Risk Assessment: This patient has [...] - Last Documented On 06/11/2025 1:20PM ; [facility] Future Appointments Date Time Location Provi t[place] Post Op 07/19/2025 11:00AM [facility] MIAH Modi PA-C Last Documented On 5 10:29AM ; [facility] Instructions to patient Lose weight Last Documented On 8:58AM ; [facility] Assessments Includes: Assessments from this encounter Findings - Overweight - Last Documented On 06/11/2025 1:20PM ; [facility] Instructions Includes: Instructions from this encounter Instructions to patient Lose weight Last Documented On 8:58AM ; [facility] Medical Equipment - Implanted Devices Includes: Current Devices No Medical Equipment Recorded Medications Includes: Medications discussed during this encounter and other current Medications Current Medications (continue as prescribed) Percocet 5-325 MG Oral Tablet 07/03/2025 - 07/18/2025 Provider: Issa Rodriguez MD Diagnosis: 1 po q 4h prn pain Last Documented On 5 8:39AM By Issa Rodriguez ; [facility] Clindamycin HCl 300 MG Oral Capsule 01/07/2025 Provi tahira: Holden Modi PA-C Diagnosis: Last Documented On 5 10:36AM By Quentin Burk ; [facility] oxyCODONE-Acetaminophen 5-325 MG Oral Tablet Provider: Issa Rodriguez MD Diagnosis: Last Documented On 5 9:50AM By Quentin Burk ; [facility] Pantoprazole Sodium 40 MG Or al Tablet Delayed Release 12/09/2024 Provider: Maya Torres APRN Diagnosis: Last Documented On 5 9:50AM By Quentin Burk ; [facility] LORazepam 1 MG Oral Tablet 12/04/2024 Provider: M ichelle Stone MANAGER COUNTRY Diagnosis: Last Documented On 5 9:50AM By Quentin Burk ; [facility] Doxycycline Hyclate 100 MG Oral Capsule 12/04/2024 Papito washingtonder: Diagnosis: Last Documented On 5 9:50AM By Quentin Burk ; [facility] sulfaSALAzine 500 MG Oral Tablet 11/27/2024 Provider : Maya Torres MANAGER COUNTRY Diagnosis: Last Documented On 5 9:50AM By Quentin Burk ; [facility] Albuterol Sulfate HFA 108 (9 0 Base) MCG/ACT Inhalation Aerosol Solution 11/07/2024 Provider: Maya anderson MANAGER COUNTRY Diagnosis: Last Documented On 5 9:50AM By Quentin Burk ; [facility] Finasteride 5 MG Oral Tablet 11/03/2024 Provider: Maya Torres MANAGER COUNTRY Diagnosis: Last Documented On 5 9:50AM By Quentin Burk ; [facility] Tamsulosin HCl 0.4 MG Oral Capsule 11/03/2024 Provid er: Maya Torres MANAGER COUNTRY Diagnosis: Last Documented On 5 3:49PM By Marifer Nuñez ; [facility] Amoxicillin 875 MG Oral Tablet 09/11/2024 Provider: Diagnosis: Last Documented On 5 9:50AM By Quentin Burk ; [facility] predniSONE 10 MG Oral Tablet 03/11/2021 Provider: Jarek Muñiz DO Diagnosis: Last Documented On 8:34AM By Deborah Lowery ; [facility] Amoxicillin 500 MG Oral Capsule 03/11/2021 Provider: Jarek Muñiz DO Diagnosis: Last Documented On 8:34AM By Deborah Lowery ; [facility] Cephalexin 500 MG Oral Capsule 03/10/2021 Provider: Diagnosis: Last Documented On 8:34AM By Deborah Lowery ; [facility] HYDROcodone-Acetaminophen 5-325 MG Oral Tablet Provider: Diagnosis: Last Documented On 8:34AM By Deborah Lowery ; [facility] Gabapentin 300 MG Oral Capsule 03/06/2021 Provider: Diagnosis: Last Documented On 8:34AM By Deborah Lowery ; [facility] LORazepam 1 MG Oral Tablet 03/06/2021 Provider: Diagnosis: Last Documented On 8:34AM By Deborah Lowery ; [facility] Esomeprazole Magnesium 40 MG Oral Capsule Delayed Rele ase 03/04/2021 Provider: Diagnosis: Last Documented On 8:34AM By Deborah Lowery ; [facility] Esomeprazole Magnesium 40 MG Oral Capsule Delayed Rele ase 03/04/2021 Provider: Diagnosis: Last Documented On 8:34AM By Deborah Lowery ; [facility] Fluticasone Propionate 50 MCG/ACT Nasal Suspension Provider: Diagnosis: Last Documented On 8:35AM By Deborah Lowery ; [facility] Past Medications on file Clindamycin HCl 300 MG Oral Capsule 01/07/2025 - 01/09/2025 Provider: Holden Steiner Diagnosis: take 2 pills, 3 three times a day Last Documented On 5 11:06AM By Quentin Burk ; [facility] Clindamycin HCl 300 MG Oral Capsule 12/28/2024 - 01/08/2025 Provider: Holden Steiner Diagnosis: three times a day Last Documented On 5 10:10AM By Quentin Burk ; [facility] Percocet 5-325 MG Oral Tablet 12/19/2024 - 01/03/2025 Provider: Issa Rodriguez MD Diagnosis: 1 po q 4h prn pain Last Documented On 5 8:40AM By Issa Rodriguez ; [facility] Losartan Potassium 100 MG Oral Tablet 12/05/2024 - Provider: Diagnosis: Last Documented On 5 3:50PM By Marifer Nuñez ; [facility] DULoxetine HCl 60 MG Oral Ca psule Delayed Release Particles 12/05/2024 - 03/05/2025 Provider: Diagnosis: Last Documented On 5 3:49PM By Marifer Nuñez ; [facility] Montelukast Sodium 10 MG Oral Tablet 12/05/2024 - 02/15 Provider: Diagnosis: Last Documented On 5 3:49PM By Marifer Nuñez ; [facility] Medications Administered Includes: Administered Medications from this encounter No Administered Medications Recorded Vital Signs Includes: Vital Signs from this encounter Vital Name 06/06/2025 09:02A Height (in) 69 Weight (lb) 252 Body Mass Index 37.2 Body Surface Area 2.3 Pain Level 5 Last Documented: On 06/06/2025 9:02AM ; [facility] Results Includes: Results discussed during [...] Documented On 5 8:58AM ; [facility] No recent change in diet 04/22/2022 Last Documented On 5 8:58AM ; [facility] Not a current smoker. 04/22/2022 Last Documented On 5 8:58AM ; [facility] Non-smoker 03/12/2021 Last Documented On 5 8:58AM ; [facility] No tobacco use 04/05/2019 Last Documented On 5 8:58AM ; [facility] Smoking status : Never smoker 04/05/2019 Last Documented On 5 8:58AM ; [facility] Caffeine use 04/05/2019 Last Documented On 5 8:58AM ; [facility] No recent change in diet 04/05/2019 Last Documented On 5 8:58AM ; [facility] Not a current smoker 04/05/2019 Last Documented On 5 8:58AM ; [facility] Not exercising regularly 04/05/2019 Last Documented On 5 8:58AM ; [facility] Not using alcohol 04/05/2019 Last Documented On 5 8:58AM ; [facility] Not using drugs 04/05/2019 Last Documented On 5 8:58AM ; [facility] Sex - Male 07/05/2025 Last Documented On 5 2:08PM ; [facility] Procedures and Surgical History Includes: Procedures from this encounter Procedures Code Diagnosis Performing Provider Service Location Service Date X-RAY EXAM OF TRUNK SPINE [address] Encntr for adjust and mgmt of implanted nervous sys device, Presence of neurostimulator Issa Rodriguez MD [facility] 06/06/2025 Last Documented On 5 2:21PM ; [facility] Surgical History Last Updated History of hernia repair 04/05/2019 Last Documented On 5 8:58AM ; [facility] Medical History Includes: Medical History addressed during this encounter Description Last Updated No recent immunization for flu Last Documented On 5 8:58AM ; [facility] No recent immunization for pneumococcal pneumonia 03/12/2021 Last Documented On 5 8:58AM ; [facility] cataracs 04/05/2019 Last Documented On 5 8:58AM ; [facility] Arthritic joint problems 04/05/2019 Last Documented On 5 8:58AM ; [facility] Intermittent hypertension 04/05/2019 Last Documented On 5 8:58AM ; [facility] Family History Includes: Family History addressed during this encounter Description Last Updated Family history of cancer 04/05/2019 Last Documented On 5 8:58AM ; [facility] Family history of hypertension 9 Last Documented On 5 8:58AM ; [facility] Review of Systems Includes: Review of [...] Anxiety Last Documented On 5 8:58AM ; [facility] Physical Exam Includes: Physical Exam from this encounter Allergies Includes: Active Allergies No Known Allergies Care Crap Game Box Person Name (Identifier) Role/Relation Location/Telecom Last Documented By Domingo Billingsley MD ([id number]) Assigned practitioner (occupation) tel:[phone] Last Documented On 07/05/2025 2:08PM ; [facility] Olga Cohen Vinayak BELCHER ([id number]) [address] [place] [address], [address] tel:[phone] Last Documented On 04/05/2019 9:06AM ; [facility] Encounters Encounter Provider Location (Healthcare Service Location) Date Check-In Time Check-Out Time Diagnosis Encounter Disposition Follow Up Issa Rodriguez MD [facility] 2024 8:53AM 10:11AM Overweight Payer Includes: Active Insurance Policies Plan Name (Payer ID) Coverage Type Member ID Group # Subscriber (ID) Relationship Effective Dates 1 - Medicare Part B [facility] ([id number]) [id number] Stephane Lozano Anam Self (Checked on 06/03/2025) Last Documented On 9 7:57AM ; [facility] 2 - C[employer] Medicare Supplemen t Insurance [id number] Stephane Mendieta Self 09/15/2017 - Unknown Last Documented On 9 8:40AM ; [facility] Clinical Notes Includes: Clinical Notes from this encounter * Progress note Date Encounter Last Documented by 06/06/2025 Follow Up Last documented on 06/11/2025; 1:20 PM, Issa Rodriguez MD; [facility] Active Problems & Conditions - [...] Care Team - Olga Licea APRN - TRIM STENCIL MAKER Health Reminders - Assess BMI satisfied 06/06/2025. - Assess Tobacco Use satisfied 04/05/2019. - Follow Up Plan BMI Management satisfied 06/06/2025.
--- OUTSIDE RECORDS SUMMARY | 2025-07-07 10:18 | XMS_ITS | Encounter Summary ---
Author Organization [employer] ([place], [place], [place], [place], [place]) Address [address] [place] [address] Care Team Providers Care Potable Water Treatment Operator Name Role Phone Maya Torres Reji BELCHER Primary Care Provider [phone] Encounter Details Date Type Department Care Team (Late st Contact Info) Description 10/18/2020 Transcribed Document [facility] [place] [address] ProviderJean MD [address] [place] [address] Social History Tobacco Use Types Packs/Day Years [...] Dee Ocampo RN - 10/18/2020 21:39 EDT Electronically signed by Ile[facility] Conversion Logging Equipment Operator Cerner at 11/04/2022 3:31 PM CDT documented in this encounter Plan of Treatment Not on file documented as of this encounter Visit Diagnoses Not on filedocumented in this encounter Care Teams Potable Water Treatment Operator Relationship Specialty Start Date End Date Maya Torres, MARKETING AUTOMATION MANAGER [address] [phone] PCP - General Family Medicine 08/27/22 documented as of this encounter
--- OUTSIDE RECORDS SUMMARY | 2025-07-07 10:18 | XMS_ITS | Encounter Summary ---
Author Organization [employer] ([place], [place], [place], [place], [place]) Address [address] [place] [address] Care Team Providers Care Director Financial Systems Name Role Phone Maya Torres Reji BELCHER Primary Care Provider [phone] Encounter Details Date Type Department Care Team (Late st Contact Info) Description 06/16/2018 Transcribed Document [facility] [place] [facility] [address] ProviderJean MD [address] [place], [place] [id number] Social History Tobacco Use Types Packs/Day Years Used Date Smoking Tobacco: Never Assessed Sex and Gender Information Value Date Recorded Sex Assigned at Not on file Legal Sex Male 5:19 PM CDT Gender Identity Not on file Sexual Orientation Not on file documented as of this encounter Miscellaneous Notes * Cerner Conversion Note - Jean Sawant MD - 06/16/2018 8:43 AM CAREER DEVELOPMENT DIRECTOR Patient: ISATU MENDIETA Age: 67 Years Sex: [...] Diagnostic Results EKG- NSR, 84 CXR- NAD Electronically signed by Ileana, [facility] Conversion Gas Welder Apprentice Cerner at 11/04/2022 3:24 PM CDT documented in this encounter Plan of Treatment Not on file documented as of this encounter Visit Diagnoses Not on filedocumented in this encounter Care Teams Director Financial Systems Relationship Specialty Start Date End Date Maya Torres, CLINICAL TRIAL ASSOCIATE [address] [phone] PCP - General Family Medicine 08/27/22 documented as of this encounter
--- OUTSIDE RECORDS SUMMARY | 2025-07-07 10:18 | XMS_ITS | Encounter Summary ---
Author Organization [employer] ([place], [place], [place], [place], [place]) Address [address] [place] [address] Care Team Providers Care Copy Center Operator Name Role Phone Maya Torres SIMI Primary Care Provider [phone]- [phone] Encounter Details Date Type Department Care Team (Late st Contact Info) Description 10/18/2020 Transcribed Document [facility] [place] [place] Family Medicine [address] [place] [address] ProviderJean MD [address] [place], [place] [address] Social History Tobacco Use Types Packs/Day Years [...] Communication Barrier : None Primary Language : Spanish Any Spiritual/Cultural Needs or Requests : No [...] on filedocumented in this encounter Care Teams Copy Center Operator Relationship Specialty Start Date End Date Maya Torres, BEAUTY CULTURIST APPRENTICE [address] [phone] PCP - General Family Medicine 08/27/22 documented as of this encounter
--- OUTSIDE RECORDS SUMMARY | 2025-07-07 10:18 | XMS_ITS | Encounter Summary ---
Author Organization [employer] ([place], [place], [place], [place], [place]) Address [address] [place] [address] Care Team Providers Care School Health Assistant Name Role Phone Maya Torres APRN Primary Care Provider +1- [phone] Encounter Details Date Type Department Care Team (Late st Contact Info) Description 10/27/2020 Transcribed Document [facility] [place] Family Medicine [address] [place] [address] ProviderJean MD [address] [place], [place] [id number] Social History Tobacco Use Types Packs/Day Years [...] 10/27/2020 6:32 PM CDT Electronically signed by [facility] Conversion Black Top Raker Cerner at 11/04/2022 3:28 PM CDT documented in this encounter Plan of Treatment Not on file documented as of this encounter Visit Diagnoses Not on filedocumented in this encounter Care Teams School Health Assistant Relationship Specialty Start Date End Date Maya Torres APRN [address] [facility] [address] [place] [address] PCP - General Family Medicine 08/27/22 documented as of this encounter
--- OUTSIDE RECORDS SUMMARY | 2025-07-07 10:18 | XMS_ITS | Encounter Summary ---
Author Organization [employer] ([place], [place], [place], [place], [place]) Address [address] [place] [address] Care Team Providers Care Corn Detasseler Name Role Phone Maya Torres Reji BELCHER Primary Care Provider [phone]- [phone] Encounter Details Date Type Department Care Team (Late st Contact Info) Description 10/27/2020 Transcribed Document [facility] [place] [facility] [place] [address] ProviderJean MD [address] [place] [address] Social History Tobacco Use Types [...] 12:04 EDT by Alina Easley Flex Team construction operations manager Triage Across the Room Chief Complaint : pt here for abn bruising to lower abd ,states tore a muscle last week, had FU but not any better, states no blood thinners, pt c/o fullnes to abd, Triage Date/Time : 10/27/2020 12:04 EDT Alina Easley Flex Team Rn - 10/27/2020 12:04 EDT DCP GENERIC CODE Tracking Acuity : 2 - Emergent Tracking Group : [facility] ED Alina Easley Flex Team Rn - 10/27/2020 12:04 EDT Mode of Arrival : Ambulatory Transported to ED by : Private vehicle To Room Via : Wheelchair Accompanied By : Spouse ED Vital Signs : Document Height & Weight : Document ED Allergies : Document ED Reason for Visit : Document Tetanus Immunization : Less than 5 years Pollution Control Engineer Needed : No Alina Easley Flex Team [...] Problems(Active) At risk for sleep apnea (IMO :43161382 ) Name of Problem: At risk for sleep apnea ; Recorder: SYSTEM, SYSTEM; Confirmation: Confirmed ; Classification: Medical ; Code: [id number] ; Last Updated: 06/16/2018 8:18 EST ; Life Cycle Date: 06/16/2018 ; Life Cycle Status: Active ; Vocabulary: IMO Enlarged prostate (SNOMED CT :212777505 ) Name of Problem: Enlarged prostate ; Recorder: Shavonne Jimenez RN; Confirmation: Confirmed ; Classification: Medical ; Code: [id number] ; Contributor System: Power[employer] ; Last Updated: 06/16/2018 8:22 EST ; Life Cycle Date: 06/16/2018 ; Life Cycle Status: Active ; Vocabulary: SNOMED CT Hypertension (SNOMED CT :2790264786 ) Name of Problem: Hypertension ; Recorder: Shavonne Jimenez RN; Confirmation: Confirmed ; Classification: Medical ; Code: [id number] ; Contributor System: PowerChart ; Last Updated: 06/16/2018 8:21 EST ; Life Cycle Date: 06/16/2018 ; Life Cycle Status: Active ; Vocabulary: SNOMED CT Seasonal allergies (SNOMED CT :7486060690 ) Name of Problem: Seasonal allergies ; Recorder: Shavonne Jimenez RN; Confirmation: Confirmed ; Classification: Medical ; Code: [id number] ; Contributor System: [employer] ; Last Updated: 06/16/2018 8:22 EST ; Life Cycle Date: 06/16/2018 ; Life Cycle Status: Active ; Vocabulary: SNOMED CT Diagnoses(Active) Medical screening exam Date: 10/27/2020 ; Diagnosis Type: Reason For Visit ; Confirmation: Complaint of ; Clinical Dx: Medical screening exam ; Classification: Medical ; Clinical Service: Non-Specified ; Code: PNED ; Probability: 0 ; Diagnosis Code: [id number] ED Height and Weight Height Source : Stated Height Entry Format : [place] Height, Feet : 5 ft(Converted to: 152 cm, 60 Inch) Height, Inches : 8 Inch(Converted to: 0 ft 8 Inch, 20.32 cm) Clinical Height : 172.72 cm Weight Source, ED : Critical estimated dosing weight Weight Entry Format : [place] Weight, Pounds : 250 lb Clinical Dosing Weight : 113.64 kg Body Surface Area (BSA) : 2.25 m2 Body Mass Index : 38.1 kg/m2 (HI) [place] Body Weight (IBW) : 67.45 kg Alina [...] on filedocumented in this encounter Care Teams Corn Detasseler Relationship Specialty Start Date End Date Maya Torres, [employer] MEMBER [address] [phone] PCP - General Family Medicine 08/27/22 documented as of this encounter
--- OUTSIDE RECORDS SUMMARY | 2025-07-07 10:18 | XMS_ITS | Encounter Summary ---
Author Organization [employer] ([place], [place], [place], [place], [place]) Address [address] [place] [address] Care Team Providers Care Insurance Claims Adjuster Name Role Phone Maya Torres Reji BELCHER Primary Care Provider [phone]- [phone] Encounter Details Date Type Department Care Team (Late st Contact Info) Description 10/27/2020 Transcribed Document [facility] [place] [address] [place] [address] ProviderJean MD [address] [place] [address] Social History Tobacco Use Types [...] on filedocumented in this encounter Care Teams Insurance Claims Adjuster Relationship Specialty Start Date End Date Maya Torres, ASSISTANT GUEST SERVICES MANAGER [address] [phone] PCP - General Family Medicine 08/27/22 documented as of this encounter
--- OUTSIDE RECORDS SUMMARY | 2025-07-07 10:18 | XMS_ITS ---
Care Plan - [facility], [facility] Created on: July 07, 2025 Stephane Mendieta : 1950 Sex: Male Author Organization [facility] Address [address] [place] [address] Phone Care Team Providers Care Engineer Assistant Name Role Phone Jose Cruz COLEMAN, Domingo Jett Unavailable [phone] Olga Licea APRN Unavailable [phone]
--- OUTSIDE RECORDS SUMMARY | 2025-07-07 10:18 | XMS_ITS | Clinical Summary ---
Author Organization [facility] , [facility] Address [address] [place] [address] Phone Care Team Providers Care It Applications Manager Name Role Phone Jose Cruz COLEMAN, Domingo Jett Unavailable [phone] Olga Licea APRN Unavailable [phone] Reason for Visit and Chief Complaint The Chief Complaint is: back pain Problems Includes: Problems addressed during this encounter and other active Problems All Visits Onset Date Date of Diagnosis Resolved Date Provider Condition Status Soft Tissue Pain Hand 12/05/2024 12/05/2024 Flako Pulido PA-C Active Last Documented On 5 1:43AM ; [facility], [facility] History of Lower Back Pain M idline Right Side 04/12/2022 04/12/2022 Holden Modi PA-C Active Last Documented On 5 1:41AM ; [facility], [facility] Joint Pain Left Thumb 03/12/2021 03/12/2021 Charles Hernandez MD Active Last Documented On 5 1:40AM ; [facility], [facility] Joint Pain in Both Knees 04/05/2019 04/05/2019 Arlet Billingsley MD Active Last Documented On 5 1:39AM ; [facility], [facility] Plan of Treatment Patient screened for future fall risk: documentation of any fall with injury in past year. - Last Documented On 12/28/2024 12:21PM ; [facility], [facility] Patient was seen by myself [...] - Last Documented On 12/28/2024 12:21PM ; [facility], [facility] Pending Tests Order Diagnosis Results Due Ordering P xena Radiology - MRI MRI Lumbar Spine 04/26/22 Chas Modi PA-C Last Documented On 2 1:06PM ; [facility], [facility] Future Appointments Date Time Location Provi tahira Post Op 07/19/2025 11:00AM [facility] Holden Modi PA-C Last Documented On 5 10:29AM ; [facility] Instructions to patient Lose weight Last Documented On 5 9:50AM ; [facility] Assessments Includes: Assessments from this encounter Findings - Overweight - Last Documented On 12/28/2024 12:21PM ; [facility] Spinal cord stimulator placement with paddles system December 19, 2024 - Last Documented On 12/28/2024 12:21PM ; [facility] Instructions Includes: Instructions from this encounter Instructions to patient Lose weight Last Documented On 5 9:50AM ; [facility] Medical Equipment - Implanted Devices Includes: Current Devices No Medical Equipment Recorded Medications Includes: Medications discussed during this encounter and other current Medications New / Renewed during this visit Holden Modi PA-C on 12/28/2024 Clindamycin HCl 300 MG Oral Capsule Provider: Holden Modi PA-C 11 day supply: 33 capsule, 0 refills Diagnosis: three times a day Pharmacy: [facility] [address] , [facility], [id number] - Last Documented On 5 10:10AM By Quentin Burk ; [facility], [facility] Current Medications (continue as prescribed) Percocet 5-325 MG Oral Tablet 07/03/2025 - 07/18/2025 Provider: Issa Rodriguez MD Diagnosis: 1 po q 4h prn pain Last Documented On 5 8:39AM By Issa Rodriguez ; [facility], [facility] Clindamycin HCl 300 MG Oral Capsule 01/07/2025 Provi thaira: Holden Modi PA-C Diagnosis: Last Documented On 5 10:36AM By Quentin Burk ; [facility], [facility] oxyCODONE-Acetaminophen 5-325 MG Oral Tablet Provider: Issa Rodriguez MD Diagnosis: Last Documented On 5 9:50AM By Quentin Burk ; [facility], [facility] Pantoprazole Sodium 40 MG Or al Tablet Delayed Release 12/09/2024 Provider: Maya Torres BOOTMAKER HAND Diagnosis: Last Documented On 5 9:50AM By Quentin Burk ; [facility], [facility] LORazepam 1 MG Oral Tablet 12/04/2024 Provider: Nancy Torres [employer]OTMAKER HAND Diagnosis: Last Documented On 5 9:50AM By Quentin Burk ; [facility], [facility] Doxycycline Hyclate 100 MG Oral Capsule 12/04/2024 P rovider: Diagnosis: Last Documented On 5 9:50AM By Quentin Burk ; [facility], [facility] sulfaSALAzine 500 MG Oral Tablet 11/27/2024 Provider : Maya Torres [employer]OTMAKER HAND Diagnosis: Last Documented On 5 9:50AM By Quentin Burk ; [facility], [facility] Albuterol Sulfate HFA 108 (9 0 Base) MCG/ACT Inhalation Aerosol Solution 11/07/2024 Provider: Maya anderson [employer]KER HAND Diagnosis: Last Documented On 5 9:50AM By Quentin Burk ; [facility], [facility] Finasteride 5 MG Oral Tablet 11/03/2024 Provider: Maya Torres BOOTMAKER HAND Diagnosis: Last Documented On 5 9:50AM By Quentin Burk ; [facility], [facility] Tamsulosin HCl 0.4 MG Oral Capsule 11/03/2024 Provid er: Maya Torres [employer]OTMAKER HAND Diagnosis: Last Documented On 5 3:49PM By Marifer Nuñez ; [facility], [facility] Amoxicillin 875 MG Oral Tablet 09/11/2024 Provider: Diagnosis: Last Documented On 9:50AM By Quentin Burk ; [facility], [facility] predniSONE 10 MG Oral Tablet 03/11/2021 Provider: Jarek Muñiz DO Diagnosis: Last Documented On 8:34AM By Deborah Lowery ; [facility], [facility] Amoxicillin 500 MG Oral Capsule 03/11/2021 Provider: Jarek Muñiz DO Diagnosis: Last Documented On 8:34AM By Deborah Lowery ; [facility], [facility] Cephalexin 500 MG Oral Capsule 03/10/2021 Provider: Diagnosis: Last Documented On 8:34AM By Deborah Lowery ; [facility], [facility] HYDROcodone-Acetaminophen 5-325 MG Oral Tablet Provider: Diagnosis: Last Documented On 8:34AM By Deborah Lowery ; [facility], [facility] Gabapentin 300 MG Oral Capsule 03/06/2021 Provider: Diagnosis: Last Documented On 8:34AM By Deborah Lowery ; [facility], [facility] LORazepam 1 MG Oral Tablet 03/06/2021 Provider: Diagnosis: Last Documented On 8:34AM By Deborah Lowery ; [facility], [facility] Esomeprazole Magnesium 40 MG Oral Capsule Delayed Rele ase 03/04/2021 Provider: Diagnosis: Last Documented On 8:34AM By Deborah Lowery ; [facility], [facility] Esomeprazole Magnesium 40 MG Oral Capsule Delayed Rele ase 03/04/2021 Provider: Diagnosis: Last Documented On 8:34AM By Deborah Lowery ; [facility], [facility] Fluticasone Propionate 50 MCG/ACT Nasal Suspension Provider: Diagnosis: Last Documented On 8:35AM By Deborah Lowery ; [facility], [facility] Past Medications on file Clindamycin HCl 300 MG Oral Capsule 01/07/2025 - 01/09/2025 Provider: Holden Steiner Diagnosis: take 2 pills, 3 three times a day Last Documented On 5 11:06AM By Quentin Burk ; [facility], [facility] Percocet 5-325 MG Oral Tablet 12/19/2024 - 01/03/2025 Provider: Issa Rodriguez MD Diagnosis: 1 po q 4h prn pain Last Documented On 8:40AM By Issa Rodriguez ; [facility] Losartan Potassium 100 MG Oral Tablet 12/05/2024 - Provider: Diagnosis: Last Documented On 3:50PM By Marifer Nuñez ; [facility] DULoxetine HCl 60 MG Oral Ca psule Delayed Release Particles 12/05/2024 - 03/05/2025 Provider: Diagnosis: Last Documented On 3:49PM By Marifer Nuñez ; [facility] Montelukast Sodium 10 MG Oral Tablet 12/05/2024 - 02/15 Provider: Diagnosis: Last Documented On 3:49PM By Marifer Nuñez ; [facility] Medications Administered Includes: Administered Medications from this encounter No Administered Medications Recorded Vital Signs Includes: Vital Signs from this encounter Vital Name 12/28/2024 09:51A Height (in) 69 Weight (lb) 250 Body Mass Index 36.9 Body Surface Area 2.3 Last Documented: On 12/28/2024 9:51AM ; [facility] Results Includes: Results discussed during [...] Documented On 5 9:50AM ; [facility] No recent change in diet 04/22/2022 Last Documented On 5 9:50AM ; [facility] Not a current smoker. 04/22/2022 Last Documented On 5 9:50AM ; [facility] Non-smoker 03/12/2021 Last Documented On 5 9:50AM ; [facility], [facility] No tobacco use 04/05/2019 Last Documented On 5 9:50AM ; [facility], [facility] Smoking status : Never smoker 04/05/2019 Last Documented On 5 9:50AM ; [facility] Caffeine use 04/05/2019 Last Documented On 5 9:50AM ; [facility] No recent change in diet 04/05/2019 Last Documented On 5 9:50AM ; [facility] Not a current smoker 04/05/2019 Last Documented On 5 9:50AM ; [facility] Not exercising regularly 04/05/2019 Last Documented On 5 9:50AM ; [facility] Not using alcohol 04/05/2019 Last Documented On 5 9:50AM ; [facility], [facility] Not using drugs 04/05/2019 Last Documented On 5 9:50AM ; [facility], [facility] Sex - Male 07/05/2025 Last Documented On 5 2:08PM ; [facility], [facility] Procedures and Surgical History Surgical History Last Updated History of hernia repair 04/05/2019 Last Documented On 5 9:50AM ; [facility], [facility] Medical History Includes: Medical History addressed during this encounter Description Last Updated No recent immunization for flu Last Documented On 5 9:50AM ; [facility], [facility] No recent immunization for pneumococcal pneumonia 03/12/2021 Last Documented On 5 9:50AM ; [facility], [facility] cataracs 04/05/2019 Last Documented On 5 9:50AM ; [facility], [facility] Arthritic joint problems 04/05/2019 Last Documented On 5 9:50AM ; [facility], [facility] Intermittent hypertension 04/05/2019 Last Documented On 5 9:50AM ; [facility], [facility] Family History Includes: Family History addressed during this encounter Description Last Updated Family history of cancer 04/05/2019 Last Documented On 5 9:50AM ; [facility] Family history of hypertension 9 Last Documented On 5 9:50AM ; [facility] Review of Systems Includes: Review of Systems [...] Anxiety Last Documented On 5 9:50AM ; [facility] Physical Exam Includes: Physical Exam from this encounter Allergies Includes: Active Allergies No Known Allergies Care It Applications Manager Name (Identifier) Role/Relation Location/Telecom Last Documented By Domingo Billingsley MD ([id number]) Assigned practitioner (occupation) tel: Last Documented On 07/05/2025 2:08PM ; [facility] Olga Licea APRN ([phone]) [address] [place] [address], [id number] tel: Last Documented On 04/05/2019 9:06AM ; [facility] Encounters Encounter Provider Location (Healthcare Service Location) Date Check-In Time Check-Out Time Diagnosis Encounter Disposition Post Op Holden Modi PA-C [facility] 2024 9:29AM 10:09AM Overweight Payer Includes: Active Insurance Policies Plan Name (Payer ID) Coverage Type Member ID Group # Subscriber (ID) Relationship Effective Dates 1 - Medicare Part B [facility] ([id number]) [id number] Stephane Mendieta Self (Checked on 06/03/2025) Last Documented On 9 7:57AM ; [facility], [facility] 2 - [employer] Medicare Supplemen t Insurance [id number] Stephane Mendieta Self 09/15/2017 - Unknown Last Documented On 9 8:40AM ; [facility], [facility] Clinical Notes Includes: Clinical Notes from this encounter * Progress note Date Encounter Last Documented by 12/28/2024 Post Op Last documented on 12/28/2024; 12:21 PM, Holden Modi PA-C; [facility], [facility] Active Problems & Conditions [...] Care Team - Olga Licea APRN - SUPERVISOR [employer]
--- OUTSIDE RECORDS SUMMARY | 2025-07-07 10:18 | XMS_ITS | Clinical Summary ---
Author Organization [facility] Address [address] [place] [address] Phone Care Team Providers Care Radiologist Physician Name Role Phone Jose Cruz COLEMAN, Domingo Jett Unavailable [phone] Olga Licea APRN Unavailable [phone] Reason for Visit and Chief Complaint The Chief Complaint is: back pain Problems Includes: Problems addressed during this encounter and other active Problems All Visits Onset Date Date of Diagnosis Resolved Date Provider Condition Status Soft Tissue Pain Hand 12/05/2024 12/05/2024 Flako Pulido PA-C Active Last Documented On 5 1:43AM ; [facility], [facility] History of Lower Back Pain M idline Right Side 04/12/2022 04/12/2022 Holden Modi PA-C Active Last Documented On 5 1:41AM ; [facility], [facility] Joint Pain Left Thumb 03/12/2021 03/12/2021 Charles Hernandez MD Active Last Documented On 5 1:40AM ; [facility], [facility] Joint Pain in Both Knees 04/05/2019 04/05/2019 Arlet Billingsley MD Active Last Documented On 5 1:39AM ; [facility], [facility] Plan of Treatment Patient screened for future fall risk: documentation of any fall with injury in past year. - Last Documented On 01/28/2025 11:48AM ; [facility], [facility] Patient was seen by myself Holden Modi PA-C. Patient will follow up 1 week we are going to keep him on clindamycin we will take the geronimo out of all the incisions today and recheck this in a week - Last Documented On 01/28/2025 11:48AM ; [facility] Pending Tests Order Diagnosis Results Due Ordering P xena Radiology - MRI MRI Lumbar Spine 04/26/22 Chas Modi PA-C Last Documented On 2 1:06PM ; [facility], [facility] Future Appointments Date Time Location Provi tahira Post Op 07/19/2025 11:00AM [facility] Holden Modi PA-C Last Documented On 5 10:29AM ; [facility] Instructions to patient Lose weight Last Documented On 5 10:49AM ; [facility] Assessments Includes: Assessments from this encounter Findings - Overweight - Last Documented On 01/28/2025 11:48AM ; [facility] 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 - Last Documented On 01/28/2025 11:48AM ; [facility] Instructions Includes: Instructions from this encounter Instructions to patient Lose weight Last Documented On 5 10:49AM ; [facility] Medical Equipment - Implanted Devices Includes: Current Devices No Medical Equipment Recorded Medications Includes: Medications discussed during this encounter and other current Medications New / Renewed during this visit Holden Modi PA-C on 01/07/2025 Clindamycin HCl 300 MG Oral Capsule Provider: Holden Modi PA-C 2 day supply: 21 capsule, 0 refills Diagnosis: take 2 pills, 3 three times a day Pharmacy: [facility] [id number] , [facility], [address] - Last Documented On 5 11:06AM By Quentin Burk ; [facility] Current Medications (continue as prescribed) Percocet 5-325 MG Oral Tablet 07/03/2025 - 07/18/2025 Provider: Issa Rodriguez MD Diagnosis: 1 po q 4h prn pain Last Documented On 5 8:39AM By Issa Rodriguez ; [facility] Clindamycin HCl 300 MG Oral Capsule 01/07/2025 Provi tahira: Holden Modi PA-C Diagnosis: Last Documented On 5 10:36AM By Quentin Burk ; [facility], [facility] oxyCODONE-Acetaminophen 5-325 MG Oral Tablet Provider: Issa Rodriguez MD Diagnosis: Last Documented On 5 9:50AM By Quentin Burk ; [facility], [facility] Pantoprazole Sodium 40 MG Or al Tablet Delayed Release 12/09/2024 Provider: Maya Torres BUTTON PUSHER Diagnosis: Last Documented On 5 9:50AM By Quentin Burk ; [facility], [facility] LORazepam 1 MG Oral Tablet 12/04/2024 Provider: Nancy Torres BUTTON PUSHER Diagnosis: Last Documented On 5 9:50AM By Quentin Burk ; [facility], [facility] Doxycycline Hyclate 100 MG Oral Capsule 12/04/2024 P padminider: Diagnosis: Last Documented On 5 9:50AM By Quentin Burk ; [facility], [facility] sulfaSALAzine 500 MG Oral Tablet 11/27/2024 Provider : Maya Torres BUTTON PUSHER Diagnosis: Last Documented On 5 9:50AM By Quentin Burk ; [facility], [facility] Albuterol Sulfate HFA 108 (9 0 Base) MCG/ACT Inhalation Aerosol Solution 11/07/2024 Provider: Maya anderson BUTTON PUSHER Diagnosis: Last Documented On 5 9:50AM By Quentin Burk ; [facility], [facility] Finasteride 5 MG Oral Tablet 11/03/2024 Provider: Maya Torres BUTTON PUSHER Diagnosis: Last Documented On 5 9:50AM By Quentin Burk ; [facility], [facility] Tamsulosin HCl 0.4 MG Oral Capsule 11/03/2024 Provid er: Maya Torres BUTTON PUSHER Diagnosis: Last Documented On 5 3:49PM By Marifer Nuñez ; [facility] Amoxicillin 875 MG Oral Tablet 09/11/2024 Provider: Diagnosis: Last Documented On 5 9:50AM By Quentin Burk ; [facility], [facility] predniSONE 10 MG Oral Tablet 03/11/2021 Provider: Jarek Muñiz DO Diagnosis: Last Documented On 8:34AM By Deborah Lowery ; [facility] Amoxicillin 500 MG Oral Capsule 03/11/2021 Provider: Jarek Muñiz DO Diagnosis: Last Documented On 8:34AM By Deborah Lowery ; [facility] Cephalexin 500 MG Oral Capsule 03/10/2021 Provider: Diagnosis: Last Documented On 8:34AM By Deborah Lowery ; [facility], [facility] HYDROcodone-Acetaminophen 5-325 MG Oral Tablet 021 Provider: Diagnosis: Last Documented On 8:34AM By Deborah Lowery ; [facility], [facility] Gabapentin 300 MG Oral Capsule 03/06/2021 Provider: Diagnosis: Last Documented On 8:34AM By Deborah Lowery ; [facility], [facility] LORazepam 1 MG Oral Tablet 03/06/2021 Provider: Diagnosis: Last Documented On 8:34AM By Deborah Lowery ; [facility] Esomeprazole Magnesium 40 MG Oral Capsule Delayed Rele ase 03/04/2021 Provider: Diagnosis: Last Documented On 8:34AM By Deborah Lowery ; [facility] Esomeprazole Magnesium 40 MG Oral Capsule Delayed Rele ase 03/04/2021 Provider: Diagnosis: Last Documented On 8:34AM By Deborah Lowery ; [facility], [facility] Fluticasone Propionate 50 MCG/ACT Nasal Suspension Provider: Diagnosis: Last Documented On 8:35AM By Deborah Lowery ; [facility], [facility] Past Medications on file Clindamycin HCl 300 MG Oral Capsule 12/28/2024 - 01/08/2025 Provider: Holdne Steiner Diagnosis: three times a day Last Documented On 5 10:10AM By Quentin Burk ; [facility] Percocet 5-325 MG Oral Tablet 12/19/2024 - 01/03/2025 Provider: Issa Rodriguez MD Diagnosis: 1 po q 4h prn pain Last Documented On 5 8:40AM By Issa Rodriguez ; [facility] Losartan Potassium 100 MG Oral Tablet 12/05/2024 - Provider: Diagnosis: Last Documented On 3:50PM By Marifer Nuñez ; [facility] DULoxetine HCl 60 MG Oral Ca psule Delayed Release Particles 12/05/2024 - 03/05/2025 Provider: Diagnosis: Last Documented On 3:49PM By Marifer Nuñez ; [facility] Montelukast Sodium 10 MG Oral Tablet 12/05/2024 - 02/15 Provider: Diagnosis: Last Documented On 3:49PM By Marifer Nuñez ; [facility] Medications Administered Includes: Administered Medications from this encounter No Administered Medications Recorded Vital Signs Includes: Vital Signs from this encounter Vital Name 01/07/2025 11:15A 01/07/2025 10: 50A Temp-Oral (F) 97.5 Height (in) 69 Weight (lb) 250 Body Mass Index 36.9 Body Surface Area 2.3 Pain Level 2 Last Documented: On 01/07/2025 11:15A M ; [facility] On 01/07/2025 10:50AM ; [facility] Results Includes: Results discussed during [...] Documented On 5 10:49AM ; [facility] No recent change in diet 04/22/2022 Last Documented On 5 10:49AM ; [facility] Not a current smoker. 04/22/2022 Last Documented On 5 10:49AM ; [facility] Non-smoker 03/12/2021 Last Documented On 5 10:49AM ; [facility] No tobacco use 04/05/2019 Last Documented On 5 10:49AM ; [facility] Smoking status : Never smoker 04/05/2019 Last Documented On 5 10:49AM ; [facility] Caffeine use 04/05/2019 Last Documented On 5 10:49AM ; [facility] No recent change in diet 04/05/2019 Last Documented On 5 10:49AM ; [facility] Not a current smoker 04/05/2019 Last Documented On 5 10:49AM ; [facility] Not exercising regularly 04/05/2019 Last Documented On 5 10:49AM ; [facility] Not using alcohol 04/05/2019 Last Documented On 5 10:49AM ; [facility] Not using drugs 04/05/2019 Last Documented On 5 10:49AM ; [facility] Sex - Male 07/05/2025 Last Documented On 5 2:08PM ; [facility] Procedures and Surgical History Surgical History Last Updated History of hernia repair 04/05/2019 Last Documented On 5 10:49AM ; [facility] Medical History Includes: Medical History addressed during this encounter Description Last Updated No recent immunization for flu Last Documented On 5 10:49AM ; [facility] No recent immunization for pneumococcal pneumonia 03/12/2021 Last Documented On 5 10:49AM ; [facility] cataracs 04/05/2019 Last Documented On 5 10:49AM ; [facility] Arthritic joint problems 04/05/2019 Last Documented On 5 10:49AM ; [facility] Intermittent hypertension 04/05/2019 Last Documented On 5 10:49AM ; [facility] Family History Includes: Family History addressed during this encounter Description Last Updated Family history of cancer 04/05/2019 Last Documented On 5 10:49AM ; [facility] Family history of hypertension 9 Last Documented On 10:49AM ; [facility] Review of Systems Includes: Review of [...] Anxiety Last Documented On 5 10:49AM ; [facility] Physical Exam Includes: Physical Exam from this encounter Allergies Includes: Active Allergies No Known Allergies Care Radiologist Physician Name (Identifier) Role/Relation Location/Telecom Last Documented By Domingo Billingsley MD ([id number]) Assigned practitioner (occupation) tel: Last Documented On 07/05/2025 2:08PM ; [facility] Olga Licea APRN ([id number]) [address] [place] [address], [address] tel: Last Documented On 04/05/2019 9:06AM ; [facility] Encounters Encounter Provider Location (Healthcare Service Location) Date Check-In Time Check-Out Time Diagnosis Encounter Disposition Post Op Holden Modi PA-C [facility] 2024 10:33AM 11:15AM Overweight Payer Includes: Active Insurance Policies Plan Name (Payer ID) Coverage Type Member ID Group # Subscriber (ID) Relationship Effective Dates 1 - Medicare Part B [facility] ([id number]) [id number] Stephane Mendieta Self (Checked on 06/03/2025) Last Documented On 9 7:57AM ; [facility], [facility] 2 - [employer] [facility] [id number] Stephane Mendieta Self 09/15/2017 - Unknown Last Documented On 9 8:40AM ; [facility], [facility] Clinical Notes Includes: Clinical Notes from this encounter * Progress note Date Encounter Last Documented by 01/07/2025 Post Op Last documented on 01/28/2025; 11:48 AM, Holden Modi PA-C; [facility], [facility] Active Problems & Conditions - [...] Care Team - Olga Licea APRN - WEBSITE DEVELOPER
--- OUTSIDE RECORDS SUMMARY | 2025-07-07 10:18 | XMS_ITS | Encounter Summary ---
Author Organization [employer] ([place], [place], [place], [place], [place]) Address [address] [place] [address] Care Team Providers Care Race Engine Builder Name Role Phone Maya Torres APRN Primary Care Provider [phone] Encounter Details Date Type Department Care Team (Late st Contact Info) Description 10/30/2020 Transcribed Document [facility] Family Medicine [facility] [place] [address] ProviderJean MD [address] [place] [address] Social History Tobacco Use Types [...] on filedocumented in this encounter Care Teams Race Engine Builder Relationship Specialty Start Date End Date Maya Torres APRN [address] [facility] [address] [place] [address] PCP - General Family Medicine 08/27/22 documented as of this encounter
--- OUTSIDE RECORDS SUMMARY | 2025-07-07 10:18 | XMS_ITS | Encounter Summary ---
Author Organization [employer] ([place], [place], [place], [place], [place]) Address [address] [place] [address] Care Team Providers Care Filterer Name Role Phone Maya Torres Reji BELCHER Primary Care Provider [phone] Encounter Details Date Type Department Care Team (Late st Contact Info) Description 10/27/2020 Transcribed Document [facility] Family Medicine [address] [place] [address] ProviderJean MD [address] [place] [address] Social History Tobacco Use Types [...] Sawant MD - 10/27/2020 6:36 PM CDT [facility] [place], [place] [id number] ISATU MENDIETA :1950 Visit Time:10/27/2020 Your Visit [...] to 3 days Where: [place] [address] [facility] (1) Allergies No Known Medication Allergies [...] 24HR 55 mcg/ inh nasal spray) 1 [place](s) Nasal Two Times A Day The home [...] and 14.9 ) ANC #: 12 K/uL [place] Percent Man: 2 % -- Normal range [...] ) Urine Bilirubin Dipstick: Negative Urine Specific [place]: 1.006 -- Normal range between ( 1.005 [...] or lying down. General instructions ??? Take ebbb-qua-ssjnlob and prescription medicines only as told by [...] compression, and elevation. You may be given myip-lyq-ihcaqsl medicines for pain. ??? Contact a health [...] provider. Document Revised: 02/22/2019 Document Reviewed: 02/22/2019 [employer] Patient Education ?? 2020 [employer]. Emergency Awareness and Preventative Care STROKE is [...] Assistance with quitting is available by contacting 0-360-TOJD-NOW. This is a free resource providing counseling, [...] was given the opportunity to ask questions. Patient/C Winforms Developer Name: Patient/C Winforms Developer Signature: Relationship to Patient: Clinician/Hospital C Winforms Developer Signature: Please Provide a Telephone Number Where You Can Be Reached: Is it Permissible To Leave a Message? Date: documented in this encounter Plan of Treatment Not on file documented as of this encounter Visit Diagnoses Not on filedocumented in this encounter Care Teams Filterer Relationship Specialty Start Date End Date Maya Torres, SIMI [address] [id number] PCP - General Family Medicine 08/27/22 documented as of this encounter
--- OUTSIDE RECORDS SUMMARY | 2025-07-07 10:18 | XMS_ITS | Clinical Summary ---
Author Organization [facility] Address [address] [place] [address] Phone Care Team Providers Care Information Consultant Name Role Phone Jose Cruz COLEMAN, Domingo Jett Unavailable [phone] Olga Licea APRN Unavailable [phone] Reason for Visit and Chief Complaint [Patient Encounter] Problems Includes: Problems addressed during this encounter and other active Problems All Visits Onset Date Date of Diagnosis Resolved Date Provider Condition Status Soft Tissue Pain Hand 12/05/2024 12/05/2024 Flako Pulido PA-C Active Last Documented On 5 1:43AM ; [facility] History of Lower Back Pain M idline Right Side 04/12/2022 04/12/2022 Holden Modi PA-C Active Last Documented On 5 1:41AM ; [facility] Joint Pain Left Thumb 03/12/2021 03/12/2021 Charles Hernandez MD Active Last Documented On 5 1:40AM ; [facility] Joint Pain in Both Knees 04/05/2019 04/05/2019 Arlet Billingsley MD Active Last Documented On 5 1:39AM ; [facility] Plan of Treatment Future Appointments Date Time Location Provi tahira Post Op 07/19/2025 11:00AM [facility] Holden Modi PA-C Last Documented On 5 10:29AM ; [facility] Assessments Includes: Assessments from this encounter No [...] q 4h prn pain Pharmacy: [facility] #[id number] - [address] , [place], [address] - Last Documented On 8:39AM By Issa Rodriguez ; [facility] Current Medications (continue as prescribed) Clindamycin HCl 300 MG Oral Capsule 01/07/2025 Provi tahira: Holden Modi PA-C Diagnosis: Last Documented On 10:36AM By Quentin Burk ; [facility], [facility] oxyCODONE-Acetaminophen 5-325 MG Oral Tablet Provider: Issa Rodriguez MD Diagnosis: Last Documented On 9:50AM By Quentin Burk ; [facility], [facility] Pantoprazole Sodium 40 MG Or al Tablet Delayed Release 12/09/2024 Provider: Maya Torres QUALITY ASSURANCE INTERN Diagnosis: Last Documented On 9:50AM By Quentin Burk ; [facility], [facility] LORazepam 1 MG Oral Tablet 12/04/2024 Provider: Nancy Torres QUALITY ASSURANCE INTERN Diagnosis: Last Documented On 9:50AM By Quentin Burk ; [facility], [facility] Doxycycline Hyclate 100 MG Oral Capsule 12/04/2024 P rosoniader: Diagnosis: Last Documented On 9:50AM By Quentin Burk ; [facility] sulfaSALAzine 500 MG Oral Tablet 11/27/2024 Provider : Maya Torres QUALITY ASSURANCE INTERN Diagnosis: Last Documented On 9:50AM By Quentin Burk ; [facility], [facility] Albuterol Sulfate HFA 108 (9 0 Base) MCG/ACT Inhalation Aerosol Solution 11/07/2024 Provider: Maya anderson QUALITY ASSURANCE INTERN Diagnosis: Last Documented On 06/13/202 5 9:50AM By Quentin Burk ; [facility] Finasteride 5 MG Oral Tablet 11/03/2024 Provider: Maya Torres APRN Diagnosis: Last Documented On 5 9:50AM By Quentin Burk ; [facility] Tamsulosin HCl 0.4 MG Oral Capsule 11/03/2024 Provid er: Maya Torres APRN Diagnosis: Last Documented On 5 3:49PM By Marifer Nuñez ; [facility] Amoxicillin 875 MG Oral Tablet 09/11/2024 Provider: Diagnosis: Last Documented On 5 9:50AM By Quentin Burk ; [facility] predniSONE 10 MG Oral Tablet 03/11/2021 Provider: Jarek Muñiz DO Diagnosis: Last Documented On 8:34AM By Deborah Lowery ; [facility] Amoxicillin 500 MG Oral Capsule 03/11/2021 Provider: Jarek Muñiz DO Diagnosis: Last Documented On 8:34AM By Deborah Lowery ; [facility] Cephalexin 500 MG Oral Capsule 03/10/2021 Provider: Diagnosis: Last Documented On 8:34AM By Deborah Lowery ; [facility] HYDROcodone-Acetaminophen 5-325 MG Oral Tablet 021 Provider: Diagnosis: Last Documented On 8:34AM By Deborah Lowery ; [facility] Gabapentin 300 MG Oral Capsule 03/06/2021 Provider: Diagnosis: Last Documented On 8:34AM By Deborah Lowery ; [facility] LORazepam 1 MG Oral Tablet 03/06/2021 Provider: Diagnosis: Last Documented On 8:34AM By Deborah Lowery ; [facility] Esomeprazole Magnesium 40 MG Oral Capsule Delayed Rele ase 03/04/2021 Provider: Diagnosis: Last Documented On 8:34AM By Deborah Lowery ; [facility] Esomeprazole Magnesium 40 MG Oral Capsule Delayed Rele ase 03/04/2021 Provider: Diagnosis: Last Documented On 8:34AM By Deborah Lowery ; [facility] Fluticasone Propionate 50 MCG/ACT Nasal Suspension Provider: Diagnosis: Last Documented On 8:35AM By Deborah Lowery ; [facility] Medications Administered Includes: Administered Medications from this encounter No Administered Medications Recorded Results Includes: Results discussed during this encounter No Results Recorded For Specified Dates History of Present Illness Includes: History of Present Illness from this encounter No History of Present Illness Recorded Social History Description Last Updated Sex - Male 07/05/2025 Last Documented On 5 2:08PM ; [facility] Smoking Status Unknown Medical History Includes: Medical [...] Includes: Active Allergies No Known Allergies Care Information Consultant Name (Identifier) Role/Relation Location/Telecom Last Documented By Domingo Billingsley MD ([id number]) Assigned practitioner (occupation) tel:[phone] Last Documented On 07/05/2025 2:08PM ; [facility] Olga Vicki Licea APRN ([id number]) [address] [place] [address], [facility], [address] tel:[phone] Last Documented On 04/05/2019 9:06AM ; [facility] Encounters Encounter Provider Location (Healthcare Service Location) Date Check-In Time Check-Out Time Diagnosis Encounter Disposition [Patient Encounter] Issa Rodriguez MD 2024 8:31AM 11:59PM Payer Includes: Active Insurance Policies Plan Name (Payer ID) Coverage Type Member ID Group # Subscriber (ID) Relationship Effective Dates 1 - Medicare Part B [facility] ([id number]) [id number] Stephane Mendieta Self (Checked on 06/03/2025) Last Documented On 9 7:57AM ; [facility] [id number] Stephane Marta AnnBland Self 09/15/2017 - Unknown Last Documented On 9 8:40AM ; [facility]
--- OUTSIDE RECORDS SUMMARY | 2025-07-07 10:18 | XMS_ITS | Encounter Summary ---
Author Organization [employer] ([place], [place], [place], [place], [place]) Address [address] [place] [address] Care Team Providers Care Hot Head Machine Operator Name Role Phone Maya Torres APRN Primary Care Provider +1- [phone] Encounter Details Date Type Department Care Team (Late st Contact Info) Description 10/18/2020 Transcribed Document [facility] [place] [address] [place] [address] ProviderJean MD [address] [place] [address] Social History Tobacco Use Types [...] 10/18/2020 9:20 PM CDT Electronically signed by [facility] Conversion Foot Tender Cerner at 11/04/2022 3:18 PM CDT documented in this encounter Plan of Treatment Not on file documented as of this encounter Visit Diagnoses Not on filedocumented in this encounter Care Teams Hot Head Machine Operator Relationship Specialty Start Date End Date Maya Torres APRN [address] [facility] [address] [place] [address] PCP - General Family Medicine 08/27/22 documented as of this encounter
--- OUTSIDE RECORDS SUMMARY | 2025-07-07 10:18 | XMS_ITS | Encounter Summary ---
Author Organization [employer] ([place], [place], [place], [place], [place]) Address [address] [place] [address] Care Team Providers Care Corner Cutter Machine Operator Name Role Phone Maya Torres Reji BELCHER Primary Care Provider +1- [phone] Encounter Details Date Type Department Care Team (Late st Contact Info) Description 10/18/2020 Transcribed Document [facility] Family Medicine [address] [place] [address] ProviderJean MD [address] [place], [place] [id number] Social History Tobacco Use Types Packs/Day Years Used Date Smoking Tobacco: Never Assessed Sex and Gender Information Value Date Recorded Sex Assigned at Not on file Legal Sex Male 5:19 PM CDT Gender Identity Not on file Sexual Orientation Not on file documented as of this encounter Miscellaneous Notes * Cerner Conversion Note - Jean ProviderMD - 10/18/2020 7:05 PM CDT [place] Suicide Severity Rating Scale (C-SSRS) Entered On: 10/18/2020 19:42 EDT Performed On: 10/18/2020 19:41 EDT by Dee Ocampo RN [place] Suicide Severity Rating Scale (C-SSRS) CSSRS Past [...] on filedocumented in this encounter Care Teams Corner Cutter Machine Operator Relationship Specialty Start Date End Date Maya Torres, LEVELER HELPER [address] [address] PCP - General Family Medicine 08/27/22 documented as of this encounter
--- OUTSIDE RECORDS SUMMARY | 2025-07-07 10:18 | XMS_ITS | Clinical Summary ---
Author Organization [employer] ([place], [place], [place], [place], [place]) Address [address] [place] [address] Care Team Providers Care Arm Maker Name Role Phone Maya Torres APRN Primary Care Provider +1- [phone] Allergies No known active allergies Medications traZODone [...] Date Jan rded Speak language other than Hungarian at home Not on file 08/04/2023 Want [...] 04/24/2019, 2017 Insurance MEDICARE PART A B [facility] Care Teams Arm Maker Relationship Specialty Start Date End Date Maya Torres, COBBLER UPPER [address] [phone] PCP - General Family Medicine 08/27/22
--- OUTSIDE RECORDS SUMMARY | 2025-07-07 10:18 | XMS_ITS | Encounter Summary ---
Author Organization [employer] ([place], [place], [place], [place], [place]) Address [address] [place] [address] Care Team Providers Care Senior Stock Plan Administrator Name Role Phone Maya Torres SIMI Primary Care Provider +1- [phone] Encounter Details Date Type Department Care Team (Late st Contact Info) Description 10/27/2020 Transcribed Document [facility] [place] [facility] [place] [address] ProviderJean MD [address] [place] [id number] Social History Tobacco Use Types Packs/Day Years [...] EDT Height Source Stated Height Entry Format [place] Height/Length, BAHRAINI (ft) 5 ft Height/Length BAHRAINI 8 Inch CLINICALHEIGHT 172.72 cm [place] Body Weight 67.45 kg Weight Source, ED Critical estimated dosing weight Weight Entry Format [place] Weight Malagasy lb 250 lb CLINICALWEIGHT 113.64 kg Body [...] Color Yellow Urine Appearance Clear Urine Specific [place] 1.006 Urine pH Dipstick 6.5 Urine Leukocyte [...] % LOW ALYC # 1 K/uL NA [place] Percent Man 2 % LOW Eos Percent Man 1 % Baso Percent Man 1 % Myelo Percent Man 2 % HI RBC Morphology Normal Platelet Ct Estimate Adequate Slide Review Add Diff Man PT 9.9 Second(s) INR 0.9 PTT 25.2 Second(s) Procalcitonin <0.25 ng/mL SARS-CoV-2 (COVID19 PCR) Negative . Radiology results: Radiology Results (Last 48 hours) [id number] -- 10/27/2020 11:59 CT Abdomen Pelvis W [...] on filedocumented in this encounter Care Teams Senior Stock Plan Administrator Relationship Specialty Start Date End Date Maya Torres, BLOCK AND CASE MAKER [address] [address] PCP - General Family Medicine 08/27/22 documented as of this encounter
--- OUTSIDE RECORDS SUMMARY | 2025-07-07 10:18 | XMS_ITS | Referral Summary ---
Author Organization [employer] ([place], [place], [place], [place], [place]) Address [address] [place] [address] Care Team Providers Care Technical Writing Lead/Mgr Name Role Phone Maya Torres APRN Primary Care Provider +1- [phone] Allergies No known active allergies Medications traZODone [...] Date Jan rded Speak language other than Kiswahili at home Not on file 08/04/2023 Want [...] on file Insurance MEDICARE PART A [facility] [place] [address] Care Teams Technical Writing Lead/Mgr Relationship Specialty Start Date End Date Maya Torres, CEMENT [address] [phone] PCP - General Family Medicine 08/27/22
--- OUTSIDE RECORDS SUMMARY | 2025-07-07 10:19 | XMS_ITS | Encounter Summary ---
Author Organization [employer] ([place], [place], [place], [place], [place]) Address [address] [place] [address] Care Team Providers Care Transportation Engineer Name Role Phone Maya Torres Reji BELCHER Primary Care Provider +1- [phone] Encounter Details Date Type Department Care Team (Late st Contact Info) Description 10/18/2020 Transcribed Document [facility] [place] [address] [place] [address] ProviderJean MD [address] [place], [place] [id number] Social History Tobacco Use Types Packs/Day Years [...] : Low risk (0) [place] Interventions : [place] precautions for safety used Dee Ocampo, HOLA - 10/18/2020 19:41 EDT Electronically signed by [facility] Conversion Leather Whitener Cerner at 11/04/2022 3:34 PM CDT documented in this encounter Plan of Treatment Not on file documented as of this encounter Visit Diagnoses Not on filedocumented in this encounter Care Teams Transportation Engineer Relationship Specialty Start Date End Date Maya Torres, TEMPERATURE REGULATOR [address] [phone] PCP - General Family Medicine 08/27/22 documented as of this encounter
--- OUTSIDE RECORDS SUMMARY | 2025-07-07 10:19 | XMS_ITS | Patient Health Record ---
Author Organization [facility] Address [address] [facility] [address] [place] [address] Care Team Providers Care Cdc Associate Name Role Phone Jerome Morrissey II Unavailable Michael COLEMAN -Issa Barry MD Unavailable [phone] Allergies No Known Allergies Reason For Referral [...] Status Risk Notes Problem Chronic pain syndrome (128718828) Chronic pain syndrome (G89.4) Active confirmed Problem Complex regional pain syndrome of lower limb (disorder) (565891315) Complex regional pain syndrome I of unspecified lower limb (G90.529) Active confirmed Problem Cervical spondylosis without myelopathy (924491476) Other spondylosis with radiculopathy, cervical region (M47.22) Active confirmed Problem Cervical spondylosis without myelopathy (723079961) Spondylosis without myelopathy or radiculopathy, cervical region (M47.812) Active confirmed Problem Lumbosacral spondylosis without myelopathy (27362275) Spondylosis without myelopathy or radiculopathy, lumbar region (M47.816) Active confirmed Problem Cervicalgia (08660609) Cervicalgia (M54.2) Active confirmed Problem Post-laminectom y syndrome (74627905) Postlaminectomy syndrome, not elsewhere classified (M96.1) Active confirmed Problem Long-term current use of drug therapy (102641593) Other termite exterminator (current) drug therapy (Z79.899) Active confirmed Problem Lumbar spondylosis (658392851) lumbar spondylosis (M47.816) Active confirmed Vital Signs Heart Rate 80 /min 10/19/2024 Blood pressure diastolic 75 mm Hg 10/19/2024 Height 69 in 10/19/2024 Blood pressure systolic 158 mm Hg 10/19/2024 Weight 250 lbs 10/19/2024 BMI 36.91 kg/m2 10/19/2024 Encounters Encounter Location Date Provider Diagnosis [facility] [address] [place] [address] [place] [address] 10/19/2024 Jerome Morrissey Other residential (current) drug therapy Z79.899 ; Spondylosis without [...] once again for the long-term. 10/19/2024 Other termite exterminator (current) drug therapy (ICD-10 - Z79.899) 04/02/2024 1. Discontinue Perkins 5/325mg QD PRN 2. FU PRn Mr. [...] Urine Test ANALYZER 08/16/2022 Urine Test ANALYZER 10/19/2024 Urine Test ANALYZER 09/23/2022 Urine Test ANALYZER 01/03/2024 Urine Test ANALYZER 10/15/2022 Insurance Providers Payer Name Payer Address Payer Phone Subscriber Number Group Number Insured Name Patient Relationship to Insured Coverage Start Date Coverage End Date [place] [address] [place] [address] [id number] Stephane Mendieta Self - patient is the insured 8 [employer] Medicare Supplement [address] [place] [phone] [id number] Stephane Mendieta Self - patient is the insured 8 Medical (General) History Medical History History ICD Code anxiety / Managed by PCP Surgical History Surgery Date(Month/Year) Back surgery / Dr. Rodriguez 09/2019 right knee replacement
--- OUTSIDE RECORDS SUMMARY | 2025-07-07 10:19 | XMS_ITS | Encounter Summary ---
Author Organization [employer] ([place], [place], [place], [place], [place]) Address [address] [place] [address] Care Team Providers Care Shearing Machine Operator Name Role Phone Maya Torres Reji BELCHER Primary Care Provider +1- [phone] Encounter Details Date Type Department Care Team (Late st Contact Info) Description 10/18/2020 Transcribed Document [facility] [place] [address] ProviderJean MD [address] [place], [place] [id number] Social History Tobacco Use Types Packs/Day Years [...] On: 10/18/2020 19:09 EDT by SUSHMA MARQUEZ, SALESPERSON [place] Triage Across the Room Chief Complaint : [...] : 3 - Urgent Tracking Group : [facility] ED SUSHMA MARQUEZ RN - 10/18/2020 19:09 [...] Measles, Mumps Tuberculosis Symptoms : None SUSHMA MARQEUZ RN - 10/18/2020 19:09 EDT Vital Signs [...] Problems(Active) At risk for sleep apnea (IMO :76278906 ) Name of Problem: At risk for sleep apnea ; Recorder: SYSTEM, SYSTEM; Confirmation: Confirmed ; Classification: Medical ; Code: [id number] ; Last Updated: 06/16/2018 8:18 EST ; Life Cycle Date: 06/16/2018 ; Life Cycle Status: Active ; Vocabulary: IMO Enlarged prostate (SNOMED CT :492889230 ) Name of Problem: Enlarged prostate ; Recorder: Shavonne Jimenez RN; Confirmation: Confirmed ; Classification: Medical ; Code: [id number] ; Contributor System: FortnoxChart ; Last Updated: 06/16/2018 8:22 EST ; Life Cycle Date: 06/16/2018 ; Life Cycle Status: Active ; Vocabulary: SNOMED CT Hypertension (SNOMED CT :0982915684 ) Name of Problem: Hypertension ; Recorder: Shavonne Jimenez RN; Confirmation: Confirmed ; Classification: Medical ; Code: [id number] ; Contributor System: FortnoxChart ; Last Updated: 06/16/2018 8:21 EST ; Life Cycle Date: 06/16/2018 ; Life Cycle Status: Active ; Vocabulary: SNOMED CT Seasonal allergies (SNOMED CT :3278229383 ) Name of Problem: Seasonal allergies ; Recorder: Shavonne Jimenez RN; Confirmation: Confirmed ; Classification: Medical ; Code: [id number] ; Contributor System: PowerChart ; Last Updated: 06/16/2018 8:22 EST ; Life Cycle Date: 06/16/2018 ; Life Cycle Status: Active ; Vocabulary: SNOMED CT Diagnoses(Active) Rib/trunk pain-swelling Date: 10/18/2020 ; Diagnosis Type: Reason For Visit ; Confirmation: Complaint of ; Clinical Dx: Rib/trunk pain-swelling ; Classification: Medical ; Clinical Service: Emergency medicine ; Code: PNED ; Probability: 0 ; Diagnosis Code: [id number] ED Height and Weight Height Source : Stated Height Entry Format : [place] Height, Feet : 5 ft(Converted to: 152 cm, 60 Inch) Height, Inches : 8 Inch(Converted to: 0 ft 8 Inch, 20.32 cm) Clinical Height : 172.72 cm Weight Source, ED : Critical estimated dosing weight Weight Entry Format : [place] Weight, Pounds : 240 lb Clinical Dosing Weight : 109.09 kg Body Surface Area (BSA) : 2.21 m2 Body Mass Index : 36.6 kg/m2 (HI) [place] Body Weight (IBW) : 67.45 kg SUSHMA MARQUEZ RN - 10/18/2020 19:09 EDT documented in this encounter Plan of Treatment Not on file documented as of this encounter Visit Diagnoses Not on filedocumented in this encounter Care Teams Shearing Machine Operator Relationship Specialty Start Date End Date Maya Torres, SILK SCREEN PRINTER [address] [phone] PCP - General Family Medicine 08/27/22 documented as of this encounter
--- OUTSIDE RECORDS SUMMARY | 2025-07-07 10:19 | XMS_ITS ---
Author Organization [facility] Address [address] [place] [address] Phone Care Team Providers Care Outside Food Server Name Role Phone Jose Cruz COLEMAN, Domingo Jett Unavailable [phone] Olga Licea APRN Unavailable [phone] Reason for Referral 11/29/2024 Encounter for Follow Up Date Recorded Target Due Date Referral Type Referring Prov ider Reason For Referral 11/29/2024 Issa Rodriguez MD See PCP for BP Last Documented On 5 3:07PM ; [facility] 11/29/2024 Issa Rodriguez MD referral to physician Last Documented On 5 3:07PM ; [facility] 04/22/2022 Encounter for Follow Up Date Recorded Target Due Date Referral Type Referring Prov ider Reason For Referral 04/22/2022 Issa Rodriguez MD See PCP for BP Last Documented On 2 10:14AM ; [facility] 05/02/2022 Issa Rodriguez MD referral to physician Last Documented On 2 10:49AM ; [facility] 04/12/2022 Encounter for Follow Up Date Recorded Target Due Date Referral Type Referring Prov ider Reason For Referral 04/12/2022 Holden Modi PA-C See PC P for BP Last Documented On 2 9:57AM ; [facility] 04/07/2021 Encounter for Follow Up Date Recorded [...] BP Last Documented On 1 8:43AM ; [facility] Problems Includes: Active, inactive, and resolved Problems All Visits Onset Date Date of Diagnosis Resolved Date Provider Condition Status Soft Tissue Pain Hand 12/05/2024 12/05/2024 Flako Pulido PA-C Active Last Documented On 5 1:43AM ; [facility] History of Lower Back Pain M idline Right Side 04/12/2022 04/12/2022 Holden Modi PA-C Active Last Documented On 5 1:41AM ; [facility] Joint Pain Left Thumb 03/12/2021 03/12/2021 Charles Hernandez MD Active Last Documented On 5 1:40AM ; [facility] Joint Pain in Both Knees 04/05/2019 04/05/2019 [facility] zachary Billingsley MD Active Last Documented On 5 1:39AM ; [facility] Plan of Treatment Findings Encounter Date Patient screened for future fall risk: documentation of any fall with injury in past year Follow Up with Issa Rodriguez MD 06/06/2025 Last Documented On 5 8:58AM ; [facility] Patient screened for future fall risk: documentation of any fall with injury in past year Post Op with Holden Modi PA-C 01/14/2025 Last Documented On 5 10:36AM ; [facility] Patient screened for future fall risk: documentation of any fall with injury in past year Post Op with Holden Modi PA-C 01/07/2025 Last Documented On 5 10:49AM ; [facility] Patient screened for future fall risk: documentation of any fall with injury in past year Post Op with Holden Modi PA-C 12/28/2024 Last Documented On 5 9:50AM ; [facility] Patient screened for future fall risk: documentation of any fall with injury in past year IN HOUSE REFERRAL with Flako Pulido PA-C 12/05/2024 Last Documented On 5 2:27PM ; [facility] Pending Tests Order Diagnosis Results Due Ordering P rovider Radiology - MRI MRI Lumbar Spine 04/26/22 Chas Modi PA-C Last Documented On 2 1:06PM ; [facility] Future Appointments Date Time Location Provi tahira Post Op 07/19/2025 11:00AM [facility] TAZLINAIrais Modi PA-C Last Documented On 5 10:29AM ; [facility] Instructions to patient Lose weight Last Documented On 5 8:58AM ; [facility] Lose weight Last Documented On 5 10:36AM ; [facility] Lose weight Last Documented On 5 10:49AM ; [facility] Lose weight Last Documented On 5 9:50AM ; [facility] Lose weight Last Documented On 5 2:27PM ; [facility] Lose weight Last Documented On 5 3:07PM ; [facility] Lose weight Last Documented On 2 10:14AM ; [facility] Lose weight Last Documented On 2 9:57AM ; [facility] Lose weight Last Documented On 1 8:13AM ; [facility] Lose weight Last Documented On 1 8:43AM ; [facility] Instructions for patient SEE PCP FOR BP AND WT Last Documented On 0 11:13AM ; [facility] Instructions for patient Last Documented On 0 3:05PM ; [facility] Instructions for patient Last Documented On 0 1:32PM ; [facility] Instructions for patient to see [...] 12/28/2024 Last Documented On 5 9:50AM ; [facility] Overweight IN HOUSE REFERRAL with [...] WT Last Documented On 0 11:13AM ; [facility] Instructions for patient Last Documented On 0 3:05PM ; [facility] Instructions for patient Last Documented On 0 1:32PM ; [facility] Instructions for patient to see pcp for bp Last Documented On 0 1:48PM ; [facility] Instructions for patient to see pcp for bp Last Documented On 9 3:13PM ; [facility] Instructions for patient to see pcp for bp Last Documented On 9 2:58PM ; [facility] Instructions for patient to see pcp for bp Last Documented On 9 9:14AM ; [facility] Medical Equipment - Implanted Devices Includes: Current and historical Devices No Medical Equipment Recorded Medications Includes: Current and historical Medications Current Medications (continue as prescribed) Percocet 5-325 MG Oral Tablet 07/03/2025 - 07/18/2025 Provider: Issa Rodriguez MD Diagnosis: 1 po q 4h prn pain Last Documented On 5 8:39AM By Issa Rodriguez ; [facility] Clindamycin HCl 300 MG Oral Capsule 01/07/2025 Provi tahira: Holden Modi PA-C Diagnosis: Last Documented On 5 10:36AM By Quentin Burk ; [facility] oxyCODONE-Acetaminophen 5-325 MG Oral Tablet 5 Provider: Issa Rodriguez MD Diagnosis: Last Documented On 5 9:50AM By Quentin Burk ; [facility] Pantoprazole Sodium 40 MG Or al Tablet Delayed Release 12/09/2024 Provider: Maya Torres RIFFLER TENDER Diagnosis: Last Documented On 5 9:50AM By Quentin Burk ; [facility] LORazepam 1 MG Oral Tablet 12/04/2024 Provider: Nancy Torres RIFFLER TENDER Diagnosis: Last Documented On 5 9:50AM By Quentin Burk ; [facility] Doxycycline Hyclate 100 MG Oral Capsule 12/04/2024 Papito mccallum: Diagnosis: Last Documented On 5 9:50AM By Quentin Burk ; [facility] sulfaSALAzine 500 MG Oral Tablet 11/27/2024 Provider : Maya Torres RIFFLER TENDER Diagnosis: Last Documented On 5 9:50AM By Quentin Burk ; [facility] Albuterol Sulfate HFA 108 (9 0 Base) MCG/ACT Inhalation Aerosol Solution 11/07/2024 Provider: Maya anderson RIFFLER TENDER Diagnosis: Last Documented On 5 9:50AM By Quentin Burk ; [facility] Finasteride 5 MG Oral Tablet 11/03/2024 Provider: Maya Torres RIFFLER TENDER Diagnosis: Last Documented On 5 9:50AM By Quentin Burk ; [facility] Tamsulosin HCl 0.4 MG Oral Capsule 11/03/2024 Provid er: Maya Torres RIFFLER TENDER Diagnosis: Last Documented On 5 3:49PM By Marifer Nuñez ; [facility] Amoxicillin 875 MG Oral Tablet 09/11/2024 Provider: Diagnosis: Last Documented On 5 9:50AM By Quentin Burk ; [facility] predniSONE 10 MG Oral Tablet 03/11/2021 Provider: Jarek Muñiz DO Diagnosis: Last Documented On 8:34AM By Deborah Lowery ; [facility] Amoxicillin 500 MG Oral Capsule 03/11/2021 Provider: Jarek Muñiz DO Diagnosis: Last Documented On 8:34AM By Deborah Lowery ; [facility] Cephalexin 500 MG Oral Capsule 03/10/2021 Provider: Diagnosis: Last Documented On 8:34AM By Deborah Lowery ; [facility] HYDROcodone-Acetaminophen 5-325 MG Oral Tablet Provider: Diagnosis: Last Documented On 8:34AM By Deborah Lowery ; [facility] Gabapentin 300 MG Oral Capsule 03/06/2021 Provider: Diagnosis: Last Documented On 8:34AM By Deborah Lowery ; [facility] LORazepam 1 MG Oral Tablet 03/06/2021 Provider: Diagnosis: Last Documented On 1 8:34AM By Deborah Lowery ; [facility] Esomeprazole Magnesium 40 MG Oral Capsule Delayed Rele ase 03/04/2021 Provider: Diagnosis: Last Documented On 8:34AM By Deborah Lowery ; [facility] Esomeprazole Magnesium 40 MG Oral Capsule Delayed Rele ase 03/04/2021 Provider: Diagnosis: Last Documented On 1 8:34AM By Deborah Lowery ; [facility] Fluticasone Propionate 50 MCG/ACT Nasal Suspension Provider: Diagnosis: Last Documented On 8:35AM By Deborah Lowery ; [facility] Past Medications on file Clindamycin HCl 300 MG Oral Capsule 01/07/2025 - 01/09/2025 Provider: Holden Steiner Diagnosis: take 2 pills, 3 three times a day Last Documented On 5 11:06AM By Quentin Burk ; [facility] Clindamycin HCl 300 MG Oral Capsule 12/28/2024 - 01/08/2025 Provider: Holden Steiner Diagnosis: three times a day Last Documented On 5 10:10AM By Quentin Burk ; [facility] Percocet 5-325 MG Oral Tablet 12/19/2024 - 01/03/2025 Provider: Issa Rodriguez MD Diagnosis: 1 po q 4h prn pain Last Documented On 5 8:40AM By Issa Rodriguez ; [facility] Losartan Potassium 100 MG Oral Tablet 12/05/2024 - Provider: Diagnosis: Last Documented On 5 3:50PM By Marifer Nuñez ; [facility] DULoxetine HCl 60 MG Oral Ca psule Delayed Release Particles 12/05/2024 - 03/05/2025 Provider: Diagnosis: Last Documented On 5 3:49PM By Marifer Nuñez ; [facility] Montelukast Sodium 10 MG Oral Tablet 12/05/2024 - 02/15 Provider: Diagnosis: Last Documented On 5 3:49PM By Marifer Nuñez ; [facility] Losartan Potassium 100 MG Oral Tablet 03/03/2021 - Provider: Diagnosis: Last Documented On 5 3:50PM By Marifer Nuñez ; [facility] Montelukast Sodium 10 MG Oral Tablet 02/16/2021 - 11/16 Provider: Diagnosis: Last Documented On 5 3:49PM By Marifer Nuñez ; [facility] DULoxetine HCl 60 MG Oral Ca psule Delayed Release Particles 02/16/2021 - 12/05/2024 Provider: Diagnosis: Last Documented On 5 3:49PM By Marifer Nuñez ; [facility] Percocet 5-325 MG OR TABS 10/05/2019 - 03/12/2021 Prov ider: Issa Rodriguez MD Diagnosis: prn pain Last Documented On 1 8:36AM By Deborah Lowery ; [facility] Dilaudid 2 MG Oral Tablet 05/02/2019 - 03/12/2021 Provider: Domingo tan MD Diagnosis: 1-2 po q6h prn pain (RESCUE PAIN) DO NOT FILL TILL 05/04/2019 FOR SURGERY Last Documented On 1 8:36AM By Deborah Lowery ; [facility] Neurontin 300 MG Oral Capsule 05/02/2019 - 03/12/2021 Provider: Domingo tan MD Diagnosis: 1 every bedtime DO NOT SELVIN L TILL 05/04/2019 FOR SURGERY Last Documented On 1 8:36AM By Deborah Lowery ; [facility] traMADol HCl 50 MG Oral Tablet 05/02/2019 - 03/12/2021 Provider: Domingo tan MD Diagnosis: 1-2 po q6h prn pain DO NOT FILL TILL 05/04/2019 FOR SURGERY Last Documented On 1 8:35AM By Deboarh Lowery ; [facility] oxyCODONE HCl 5 MG Oral Tablet 05/02/2019 - 03/12/2021 Provider: Domingo tna MD Diagnosis: 1-2 po q6h prn pain DO NOT FILL TILL 05/04/2019 FOR SURGERY Last Documented On 1 8:36AM By Deborah Lowery ; [facility] Zofran 4 MG Oral Tablet 05/02/2019 - 03/12/2021 Provid er: Domingo Billingsley MD Diagnosis: [id number] DO NOT FILL TILL 05/04/2019 FOR SURGERY Last Documented On 1 8:35AM By Deborah Lowery ; [facility] Keflex 500 MG Oral Capsule 05/02/2019 - 03/12/2021 Provider: Domingo tan MD Diagnosis: 1 every 6 hours DO NOT SELVIN L TILL 05/04/2019 FOR SURGERY Last Documented On 1 8:36AM By Deborah Lowery ; [facility] Acetaminophen 500 MG Oral Tablet 05/02/2019 - 03/12/2021 Provider: Domingo Billingsley MD Diagnosis: 2 three times a day DO NOT FILL TILL 05/04/2019 FOR SURGERY Last Documented On 1 8:36AM By Deborah Lowery ; [facility] Colace 100 MG Oral Capsule 05/02/2019 - 03/12/2021 Provider: Domingo tan MD Diagnosis: 1-2 tabs daily DO NOT FILL TILL 05/04/2019 FOR SURGERY Last Documented On 1 8:36AM By Deborah Lowery ; [facility] Mobic 15 MG Oral Tablet 05/02/2019 - 03/12/2021 Provid er: Domingo Billingsley MD Diagnosis: once a day DO NOT FILL TIL L 05/04/2019 FOR SURGERY Last Documented On 1 8:36AM By Deborah Lowery ; [facility] Mupirocin 2% External Ointment 04/09/2019 - 03/12/2021 Provider: Domingo tan MD Diagnosis: Apply to nostrils 3 times a day 5 days prior to surgery. Last Documented On 1 8:35AM By Deborah Lowery ; [facility] Gabapentin 300MG Oral Capsule 04/05/2019 - 03/12/2021 Provider: Diagnosis: Last Documented On 1 8:35AM By Deborah Lowery ; [facility] HM Loratadine 10MG Oral Tablet 04/05/2019 - 03/12/2021 Provider: Diagnosis: Last Documented On 1 8:35AM By Deborah Lowery ; [facility] sulfaSALAzine 500MG Oral Tablet 03/24/2019 - Provider: Olga Licea RIFFLER TENDER Diagnosis: Last Documented On 1 8:35AM By Deborah Lowery ; [facility] Losartan Potassium 100MG Ora l Tablet 03/05/2019 - 03/12/2021 Provider: Olga Lozano PRN Diagnosis: Last Documented On 8:35AM By Deborah Lowery ; [facility] Montelukast Sodium 10MG Oral Tablet 03/04/2019 - 03/12/2021 Provider: Olga Lozano PRN Diagnosis: Last Documented On 8:35AM By Deborah Lowery ; [facility] Tamsulosin HCl 0.4MG Oral Capsule 03/04/2019 - 03/12/2021 Provider: Olga Lozano PRN Diagnosis: Last Documented On 8:35AM By Deborah Lowery ; [facility] LORazepam 1MG Oral Tablet 02/22/2019 - 03/12/2021 Prov ider: Olga Licea RIFFLER TENDER Diagnosis: Last Documented On 8:35AM By Deborah Lowery ; [facility] DULoxetine HCl 60MG Oral Capsule Delayed Release Particles 02/09/2019 - 03/12/2021 Provider: Olga Lozano PRN Diagnosis: Last Documented On 1 8:35AM By Deborah Lowery ; [facility] Finasteride 5MG Oral Tablet 01/21/2019 - 03/12/2021 Pr ovider: Olga Licea RIFFLER TENDER Diagnosis: Last Documented On 1 8:35AM By Deborah Loewry ; [facility] traZODone HCl 150MG Oral Tablet 01/21/2019 - Provider: Olga Licea RIFFLER TENDER Diagnosis: Last Documented On 8:35AM By Deborah Lowery ; [facility] Omeprazole 20MG Oral Tablet Delayed Release 12/07/2018 - 03/12/2021 Provider: ANDREA Abbott II, MD Diagnosis: Last Documented On 8:35AM By Deborah Lowery ; [facility] Medications Administered Includes: Administered Medications in patient's chart No Administered Medications Recorded Vital Signs Includes: Vital Signs from 07/07/2024 through 07/07/2025 Vital Name 06/06/2025 09:02A 01/14/2025 10:36A 01/07/2025 11:15A 01/07/2025 10:50A 12/28/2024 09:51A Height (in) 69 69 69 69 Weight (lb) 252 250 250 250 Body Mass Index 37.2 36.9 36.9 36.9 Body Surface Area 2.3 2.3 2.3 2.3 Pain Level 5 3 2 Temp-Oral (F) 97.5 Last Documented: On 06/06/2025 9:02AM ; [facility] On 01/14/2025 10:36AM ; [facility] On 01/07/2025 11:15AM ; [facility] On 01/07/2025 10:50AM ; [facility] On 12/28/2024 9:51AM ; [facility] Vital Name 12/05/2024 02:27P 11/29/2024 03: 21P Height (in) 69 68 Weight (lb) 250 250 Body Mass Index 36.9 38 Body Surface Area 2.3 2.2 Pain Level 8 Note: MCG Last Documented: On 12/05/2024 3:51PM ; [facility] On 11/29/2024 3:22PM ; [facility] Results Includes: Results from 07/07/2024 through 07/07/2025 No Results Recorded For Specified Dates Social History Description Last Updated Tobacco non-user 04/22/2022 Last Documented On 2 10:50AM ; [facility] No recent change in diet 04/22/2022 Last Documented On 2 10:50AM ; [facility] Not a current smoker. 04/22/2022 Last Documented On 2 10:50AM ; [facility] Non-smoker 03/12/2021 Last Documented On 1 8:44AM ; [facility] No tobacco use 04/05/2019 Last Documented On 9 10:53AM ; [facility] Smoking status : Never smoker 04/05/2019 Last Documented On 9 10:53AM ; [facility] Caffeine use 04/05/2019 Last Documented On 9 10:53AM ; [facility] No recent change in diet 04/05/2019 Last Documented On 9 10:53AM ; [facility] Not a current smoker 04/05/2019 Last Documented On 9 10:53AM ; [facility] Not exercising regularly 04/05/2019 Last Documented On 9 10:53AM ; [facility] Not using alcohol 04/05/2019 Last Documented On 9 10:53AM ; [facility] Not using drugs 04/05/2019 Last Documented On 9 10:53AM ; [facility] Sex - Male 07/05/2025 Last Documented On 5 2:08PM ; [facility] Procedures and Surgical History Includes: Procedures from 07/07/2024 through 07/07/2025 Procedures Code Diagnosis Performing Provider Service Location Service Date X-RAY EXAM OF TRUNK SPINE 478[address] Encntr for adjust and mgmt of implanted nervous sys device, Presence of neurostimulator Issa Rodriguez MD [facility] 06/06/2025 Last Documented On 5 2:21PM ; [facility] Insertion or replacement of spinal neurostimulator pulse gen (Distinct procedure) 43417 Chronic pain syndrome Issa Rodriguez MD [facility] 12/19/2024 Last Documented On 5 5:16PM ; [facility] Revision including replacement, [place] [address] [facility] compl of implnt elec nstim of spinal cord lead, init Issa Rodriguez MD [facility] 12/19/2024 Last Documented On 5 5:16PM ; [facility] X-RAY EXAM OF FINGER(S) 2-3 VIEWS (Bilateral Procedure) 47571 Trigger finger, left middle finger, 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 12/05/2024 Last Documented On 5 3:22PM ; [facility] INJ TENDON SHEATH/LIGAMENT (LEFT HAND, THIRD DIGIT) 92973 Trigger finger, left middle finger 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 12/05/2024 Last Documented On 5 3:22PM ; [facility] X-RAY EXAM OF LOWER SPINE 2-3 VIEWS LIMITED 35179 Chronic pain syndrome Issa Rodriguez MD [facility] 11/29/2024 Last Documented On 5 11:33AM ; [facility] X-RAY EXAM OF THORACIC SPINE 2 VIEWS 12082 Chronic pain syndrome Issa Rodriguez MD [facility] 11/29/2024 Last Documented On 5 11:33AM ; [facility] Surgical History Last Updated History of hernia repair 04/05/2019 Last Documented On 9 10:53AM ; [facility] Medical History Includes: Medical History in patient's [...] and resolved Allergies No Known Allergies Care Outside Food Server Name (Identifier) Role/Relation Location/Telecom Last Documented By Domingo Billingsley MD ([id number]) Assigned practitioner (occupation) tel:[phone] Last Documented On 07/05/2025 2:08PM ; [facility] Olga Licea RIFFLER TENDER ([id number]) [address] [place] [address], [phone] tel: Last Documented On 04/05/2019 9:06AM ; [facility] Encounters Includes: Encounters from 07/07/2024 through 07/07/2025 Encounter Provider Location (Healthcare Service Location) Date Check-In Time Check-Out Time Diagnosis Encounter Disposition [Patient Encounter] Issa Rodriguez MD 202406/06/2025 8:31AM 06/06/2025 11:59PM Follow Up Issa Rodriguez MD [facility] 2024 8:53AM 10:11AM Overweight Post Op Holden Modi PA-C [facility] 2024 10:30AM 10:40AM Overweight Post Op Holden Modi PA-C [facility] 2024 10:33AM 11:15AM Overweight Post Op Holden Modi PA-C [facility] 2024 9:29AM 10:09AM Overweight [Patient Encounter] Issa Rodriguez MD 202412/05/2024 8:36AM 12/05/2024 11:59PM [facility] Issa [facility] MD Surgery 202412/23/2024 5:01PM 12/05/2024 11:59PM IN HOUSE REFERRAL Flako Pulido PA-C [facility] 2024 2:26PM 3:21PM Overweight Follow Up Issa Rodriguez MD [facility] 2024 3:04PM 3:32PM Payer Includes: Active Insurance Policies Plan Name (Payer ID) Coverage Type Member ID Group # Subscriber (ID) Relationship Effective Dates 1 - Medicare Part B [facility] ([id number]) [id number] Stephane Mendieta Self (Checked on 06/03/2025) Last Documented On 9 7:57AM ; [facility] 2 - [employer] Medicare Supplemen t Insurance [id number] Stephane Mendieta Self 09/15/2017 - Unknown Last Documented On 9 8:40AM ; [facility] [facility] Clinical Notes Includes: Signed Clinical Notes starting from 07/01/2022 * Progress note Date Encounter Last Documented by 06/06/2025 Follow Up Last documented on 06/11/2025; 1:20 PM, Issa Rodriguez MD; [facility] Active Problems & Conditions - [...] Care Team - Olga Licea APRN - [facility] Reminders - Assess BMI satisfied 06/06/2025. - Assess Tobacco Use satisfied 04/05/2019. - Follow Up Plan BMI Management satisfied 06/06/2025. * Progress note Date Encounter Last Documented by 01/14/2025 Post Op Last documented on 01/14/2025; 10:41 AM, Holden Modi PA-C; [facility] Active Problems & Conditions - [...] Care Team - Olga Licea APRN - [facility] * Progress note Date Encounter Last Documented by 01/07/2025 Post Op Last documented on 01/28/2025; 11:48 AM, Holden Modi PA-C; [facility] Active Problems & Conditions - [...] Care Team - Olga Licea APRN - [facility] * Progress note Date Encounter Last Documented by 12/28/2024 Post Op Last documented on 12/28/2024; 12:21 PM, Holden Modi PA-C; [facility] Active Problems & Conditions - [...] Care Team - Olga Licea APRN - [facility] * Progress note Date Encounter Last Documented by 12/05/2024 IN HOUSE REFERRAL Last documente d on 12/05/2024; 4:17 PM, Flako Pulido PA-C; [facility] Active Problems & Conditions - [...] Care Team - Olga Licea APRN - [facility] * Progress note Date Encounter Last Documented by 11/29/2024 Follow Up Last documented on 12/17/2024; 10:39 AM, Issa Rodriguez MD; [facility] Active Problems & Conditions - [...] 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 He is neurovascularly intact. He is [...] Care Team - Olga Licea APRN - [facility] Reminders - Assess BMI satisfied 11/29/2024. - Assess Tobacco Use satisfied 04/05/2019. - Follow Up Plan BMI Management satisfied 11/29/2024.
--- OUTSIDE RECORDS SUMMARY | 2025-07-07 10:19 | XMS_ITS | Clinical Summary ---
Author Organization [facility] Address [address] [place] [address] Care Team Providers Care Creative Engagement Director Name Role Phone Maya Torres Primary Care Provider + [phone] Allergies No known active allergies Medications DULoxetine [...] Completed 10/27/2020 Medical Devices Implanted Type Area Pillowcase Cleaner Device Identifier Shelf Expiration Date Model / Serial / Lot Ld Stim Precsn Trial Lnr 8contct St/Tp50 - [id number] - [id number] Implanted:Qty : 1 on 10/05/2022 by Jerome Morrissey MD at [facility] Implant N/A: Spine Thoracic [employer] 08/30/2024 [id number] / [id number] / Ld Stim Precsn Trial Lnr 8contct St/Tp50 - [id number] - [id number] Implanted:Qty : 1 on 10/05/2022 by Jerome Morrissey MD at [facility] Implant N/A: Spine Thoracic [employer] 08/26/2024 [id number] / [id number] / Anchr Ld Scs Clikx Ea/St/2 - [id number] Implanted:Qty : 1 on 10/05/2022 by Jerome Morrissey MD at [facility] Implant N/A: Spine Thoracic [employer] 01/06/2024 [id number] / / [id number] Kt Ipg Wavewriter Alpha 16/Contct - [id number] - [id number] Implanted:Qty : 1 on 10/05/2022 by Jerome Morrissey MD at [facility] Implant N/A: Spine Thoracic [employer] [id number] 09/13/2024 [id number] / [id number] / [id number] Insurance MEDICARE A & B Member Subscriber Plan / Payer (Ef fective 2017-Present) Name:Stephane Mendieta Member ID:[id number] Relation to Subscriber:Self Name:Stephane Mendieta Subscriber ID:[id number] Payer ID:[id number] Group ID:Not on file Type:Not on file Address: [facility] [id number] [place] [id number] [facility] Decisionlink Care Teams Creative Engagement Director Relationship Specialty Start Date End Date Maya Torres Kaylyn [place] [id number] PCP - General Nurse Practitioner 09/28/22
--- OUTSIDE RECORDS SUMMARY | 2025-07-07 10:19 | XMS_ITS | Clinical Summary ---
Author Organization [facility] Address [address] [place] [address] Phone Care Team Providers Care Hair Spinning Machine Operator Name Role Phone Jose Cruz COLEMAN, Domingo Jett Unavailable [phone] Olga Licea APRN Unavailable [phone] Reason for Visit and Chief Complaint The Chief Complaint is: back pain Problems Includes: Problems addressed during this encounter and other active Problems All Visits Onset Date Date of Diagnosis Resolved Date Provider Condition Status Soft Tissue Pain Hand 12/05/2024 12/05/2024 Flako Pulido PA-C Active Last Documented On 5 1:43AM ; [facility], [facility] History of Lower Back Pain M idline Right Side 04/12/2022 04/12/2022 Holden Modi PA-C Active Last Documented On 5 1:41AM ; [facility], [facility] Joint Pain Left Thumb 03/12/2021 03/12/2021 Charles Hernandez MD Active Last Documented On 5 1:40AM ; [facility], [facility] Joint Pain in Both Knees 04/05/2019 04/05/2019 Arlet Billingsley MD Active Last Documented On 5 1:39AM ; [facility] Plan of Treatment Patient screened for future fall risk: documentation of any fall with injury in past year. - Last Documented On 01/14/2025 10:41AM ; [facility] Patient was seen by myself [...] - Last Documented On 01/14/2025 10:41AM ; [facility], [facility] Pending Tests Order Diagnosis Results Due Ordering P rovider Radiology - MRI MRI Lumbar Spine 04/26/22 Chas Modi PA-C Last Documented On 2 1:06PM ; [facility], [facility] Future Appointments Date Time Location Provi tahira Post Op 07/19/2025 11:00AM [facility] Holden Modi PA-C Last Documented On 5 10:29AM ; [facility] Instructions to patient Lose weight Last Documented On 10:36AM ; [facility] Assessments Includes: Assessments from this encounter Findings - Overweight - Last Documented On 01/14/2025 10:41AM ; [facility] 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 December 19, 2024 - Last Documented On 01/14/2025 10:41AM ; [facility] Instructions Includes: Instructions from this encounter Instructions to patient Lose weight Last Documented On 10:36AM ; [facility] Medical Equipment - Implanted Devices Includes: Current Devices No Medical Equipment Recorded Medications Includes: Medications discussed during this encounter and other current Medications Current Medications (continue as prescribed) Percocet 5-325 MG Oral Tablet 07/03/2025 - 07/18/2025 Provider: Issa Rodriguez MD Diagnosis: 1 po q 4h prn pain Last Documented On 5 8:39AM By Issa Rodriguez ; [facility] Clindamycin HCl 300 MG Oral Capsule 01/07/2025 Provi tahira: Holden Modi PA-C Diagnosis: Last Documented On 5 10:36AM By Quentin Wm ; [facility] oxyCODONE-Acetaminophen 5-325 MG Oral Tablet Provider: Issa Rodriguez MD Diagnosis: Last Documented On 5 9:50AM By Quentin Burk ; [facility], [facility] Pantoprazole Sodium 40 MG Or al Tablet Delayed Release 12/09/2024 Provider: Maya Torres ARTIFICIAL FLY TIER Diagnosis: Last Documented On 5 9:50AM By Quentin Burk ; [facility], [facility] LORazepam 1 MG Oral Tablet 12/04/2024 Provider: Nancy Torres ARTIFICIAL FLY TIER Diagnosis: Last Documented On 5 9:50AM By Quentin Burk ; [facility], [facility] Doxycycline Hyclate 100 MG Oral Capsule 12/04/2024 P rosoniader: Diagnosis: Last Documented On 5 9:50AM By Quentin Burk ; [facility], [facility] sulfaSALAzine 500 MG Oral Tablet 11/27/2024 Provider : Maya Torres ARTIFICIAL FLY TIER Diagnosis: Last Documented On 5 9:50AM By Quentin Burk ; [facility], [facility] Albuterol Sulfate HFA 108 (9 0 Base) MCG/ACT Inhalation Aerosol Solution 11/07/2024 Provider: Maya anderson ARTIFICIAL FLY TIER Diagnosis: Last Documented On 5 9:50AM By Quentin Burk ; [facility], [facility] Finasteride 5 MG Oral Tablet 11/03/2024 Provider: Maya Torres ARTIFICIAL FLY TIER Diagnosis: Last Documented On 5 9:50AM By Quentin Burk ; [facility], [facility] Tamsulosin HCl 0.4 MG Oral Capsule 11/03/2024 Provid er: Maya Torres ARTIFICIAL FLY TIER Diagnosis: Last Documented On 5 3:49PM By Marifer Nuñez ; [facility] Amoxicillin 875 MG Oral Tablet 09/11/2024 Provider: Diagnosis: Last Documented On 5 9:50AM By Quentin Burk ; [facility], [facility] predniSONE 10 MG Oral Tablet 03/11/2021 Provider: Jarek Muñiz DO Diagnosis: Last Documented On 1 8:34AM By Deborah Lowery ; [facility], [facility] Amoxicillin 500 MG Oral Capsule 03/11/2021 Provider: Jarek Muñiz DO Diagnosis: Last Documented On 1 8:34AM By Deborah Lowery ; [facility] Cephalexin 500 MG Oral Capsule 03/10/2021 Provider: Diagnosis: Last Documented On 8:34AM By Deborah Lowery ; [facility] HYDROcodone-Acetaminophen 5-325 MG Oral Tablet 021 Provider: Diagnosis: Last Documented On 8:34AM By Deborah Lowery ; [facility], [facility] Gabapentin 300 MG Oral Capsule 03/06/2021 Provider: Diagnosis: Last Documented On 8:34AM By Deborah Lowery ; [facility] LORazepam 1 MG Oral Tablet 03/06/2021 Provider: Diagnosis: Last Documented On 8:34AM By Deborah Lowery ; [facility], [facility] Esomeprazole Magnesium 40 MG Oral Capsule Delayed Rele ase 03/04/2021 Provider: Diagnosis: Last Documented On 8:34AM By Deborah Lowery ; [facility], [facility] Esomeprazole Magnesium 40 MG Oral Capsule Delayed Rele ase 03/04/2021 Provider: Diagnosis: Last Documented On 8:34AM By Deborah Lowery ; [facility], [facility] Fluticasone Propionate 50 MCG/ACT Nasal Suspension Provider: Diagnosis: Last Documented On 8:35AM By Deborah Lowery ; [facility] Past Medications on file Clindamycin HCl 300 MG Oral Capsule 01/07/2025 - 01/09/2025 Provider: Holden Steiner Diagnosis: take 2 pills, 3 three times a day Last Documented On 5 11:06AM By Quentin Burk ; [facility], [facility] Clindamycin HCl 300 MG Oral Capsule 12/28/2024 - 01/08/2025 Provider: Holden Steiner Diagnosis: three times a day Last Documented On 5 10:10AM By Quentin Burk ; [facility], [facility] Percocet 5-325 MG Oral Tablet 12/19/2024 - 01/03/2025 Provider: Issa Rodriguez MD Diagnosis: 1 po q 4h prn pain Last Documented On 5 8:40AM By Issa Rodriguez ; [facility], [facility] Losartan Potassium 100 MG Oral Tablet 12/05/2024 - Provider: Diagnosis: Last Documented On 5 3:50PM By Marifer Nuñez ; [facility] DULoxetine HCl 60 MG Oral Ca psule Delayed Release Particles 12/05/2024 - 03/05/2025 Provider: Diagnosis: Last Documented On 5 3:49PM By Marifer [facility] Montelukast Sodium 10 MG Oral Tablet 12/05/2024 - 02/15 Provider: Diagnosis: Last Documented On 5 3:49PM By Marifer Nuñez ; [facility] Medications Administered Includes: Administered Medications from this encounter No Administered Medications Recorded Vital Signs Includes: Vital Signs from this encounter Vital Name 01/14/2025 10:36A Height (in) 69 Weight (lb) 250 Body Mass Index 36.9 Body Surface Area 2.3 Pain Level 3 Last Documented: On 01/14/2025 10:36A M ; [facility] Results Includes: Results discussed during [...] Documented On 5 10:36AM ; [facility] No recent change in diet 04/22/2022 Last Documented On 5 10:36AM ; [facility] Not a current smoker. 04/22/2022 Last Documented On 5 10:36AM ; [facility] Non-smoker 03/12/2021 Last Documented On 5 10:36AM ; [facility] No tobacco use 04/05/2019 Last Documented On 5 10:36AM ; [facility] Smoking status : Never smoker 04/05/2019 Last Documented On 5 10:36AM ; [facility] Caffeine use 04/05/2019 Last Documented On 5 10:36AM ; [facility] No recent change in diet 04/05/2019 Last Documented On 5 10:36AM ; [facility] Not a current smoker 04/05/2019 Last Documented On 5 10:36AM ; [facility] Not exercising regularly 04/05/2019 Last Documented On 5 10:36AM ; [facility] Not using alcohol 04/05/2019 Last Documented On 5 10:36AM ; [facility] Not using drugs 04/05/2019 Last Documented On 5 10:36AM ; [facility] Sex - Male 07/05/2025 Last Documented On 5 2:08PM ; [facility] Procedures and Surgical History Surgical History Last Updated History of hernia repair 04/05/2019 Last Documented On 5 10:36AM ; [facility] Medical History Includes: Medical History addressed during this encounter Description Last Updated No recent immunization for flu Last Documented On 5 10:36AM ; [facility] No recent immunization for pneumococcal pneumonia 03/12/2021 Last Documented On 5 10:36AM ; [facility] cataracs 04/05/2019 Last Documented On 5 10:36AM ; [facility] Arthritic joint problems 04/05/2019 Last Documented On 5 10:36AM ; [facility] Intermittent hypertension 04/05/2019 Last Documented On 5 10:36AM ; [facility] Family History Includes: Family History addressed during this encounter Description Last Updated Family history of cancer 04/05/2019 Last Documented On 5 10:36AM ; [facility] Family history of hypertension 9 Last Documented On 5 10:36AM ; [facility] Review of Systems Includes: Review [...] Description Anxiety Last Documented On 10:36AM ; [facility] Physical Exam Includes: Physical Exam from this encounter Allergies Includes: Active Allergies No Known Allergies Care Hair Spinning Machine Operator Name (Identifier) Role/Relation Location/Telecom Last Documented By Domingo Billingsley MD ([id number]) Assigned practitioner (occupation) tel:[phone] Last Documented On 07/05/2025 2:08PM ; [facility] Ogla Vicki Licea APRN ([id number]) [address] [place] [address], [address] tel:[phone] Last Documented On 04/05/2019 9:06AM ; [facility] Encounters Encounter Provider Location (Healthcare Service Location) Date Check-In Time Check-Out Time Diagnosis Encounter Disposition Post Op [facility]:30[facility] 10:40AM Overweight Payer Includes: Active Insurance Policies Plan Name (Payer ID) Coverage Type Member ID Group # Subscriber (ID) Relationship Effective Dates 1 - Medicare Part B [facility] ([id number]) [id number] Stephane Mendieta Self (Checked on 06/03/2025) Last Documented On 9 7:57AM ; [facility] 2 - [employer] Medicare Supplemen t Insurance [id number] Stephane Mendieta Self 09/15/2017 - Unknown Last Documented On 9 8:40AM ; [facility] Clinical Notes Includes: Clinical Notes from this encounter * Progress note Date Encounter Last Documented by 01/14/2025 Post Op Last documented on 01/14/2025; 10:41 AM, Holden Modi PA-C; [facility] Active Problems & Conditions - History of Lower Back Pain Midline Right Side - Joint Pain in Both Knees - Joint Pain Left Thumb - Pain in the Hands Chief Complaint The Chief Complaint is: Back pain. History of Present Illness tSephane Mendieta is a 74 year old male. [...] Replacement spinal cord stimulator battery with the padOpenovate Labss system. December 19, 2024 Previous Tests Available [...] Care Team - Olga Licea APRN - CONSTRUCTION ACCOUNTANT
--- OUTSIDE RECORDS SUMMARY | 2025-07-07 10:19 | XMS_ITS | Encounter Summary ---
Author Organization [employer] ([place], [place], [place], [place], [place]) Address [address] [place] [address] Care Team Providers Care Administrative Services Manager Name Role Phone Maya Torres Reji BELCHER Primary Care Provider [phone] Encounter Details Date Type Department Care Team (Late st Contact Info) Description 10/18/2020 Transcribed Document [facility] [place] [facility] [place] [address] ProviderJean MD [address] [place] [address] Social History Tobacco Use Types [...] Sawant MD - 10/18/2020 9:38 PM CDT [facility] [place], [place] [id number] ISATU MENDIETA :1950 Visit Time:10/18/2020 Your Visit [...] to ED if symptoms worsen. Where: [address] [facility] [address] [place] [address] Business (1) Follow Up with JACKIE LEONARD When Within 2 to 3 days Allergies No Known Medication Allergies Immunizations This Visit No Immunizations Found Medications What How Much When Instructions Next Dose codeine-guaifenesin (codeine-guaifenesin 6.3 mg-100 mg/ 5 mL oral liquid) 7.5 Milliliter(s) Oral Every 6 Hours as needed for for cough Pickup at [facility] dextromethorphan-guaifenesin (dextromethorphan-guaifenesin 5 mg-100 [...] 24HR 55 mcg/ inh nasal spray) 1 Napanoch(s) Nasal Two Times A Day Pharmacy Information [facility]: [address] [place], [place] [phone] The home medications listed are only as [...] safe for you. General instructions ??? Take czum-fzz-hzkhmyr and prescription medicines only as told by [...] Reviewed: 01/04/2019 Vince Patient Education ?? 2020 [employer]. Emergency Awareness and Preventative Care STROKE is [...] Assistance with quitting is available by contacting 9-000-MGXU-NOW. This is a free resource providing counseling, [...] was given the opportunity to ask questions. Patient/Plant Pathology Teacher Name: Patient/Plant Pathology Teacher Signature: Relationship to Patient: Clinician/Hospital Plant Pathology Teacher Signature: Please Provide a Telephone Number Where You Can Be Reached: Is it Permissible To Leave a Message? Date: documented in this encounter Plan of Treatment Not on file documented as of this encounter Visit Diagnoses Not on filedocumented in this encounter Care Teams Administrative Services Manager Relationship Specialty Start Date End Date Maya Torres, SIMI [address] [phone] PCP - General Family Medicine 08/27/22 documented as of this encounter
--- OUTSIDE RECORDS SUMMARY | 2025-07-07 10:19 | XMS_ITS | Encounter Summary ---
Author Organization [employer] ([place], [place], [place], [place], [place]) Address [address] [place] [address] Care Team Providers Care Public Address Systems Mechanic Name Role Phone Maya Torres Reji BELCHER Primary Care Provider [phone] Encounter Details Date Type Department Care Team (Late st Contact Info) Description 10/27/2020 Transcribed Document [facility] Family Medicine [address] [place] [address] ProviderJean MD [address] [place] [address] Social History Tobacco Use Types [...] On: 10/27/2020 12:21 EDT by Jasmin Thornton STRATEGIC INTELLIGENCE OFFICER General-Functional Assess Preferred Communication Mode : Verbal Communication Barrier : None Primary Language : Slovak Any Spiritual/Cultural Needs or Requests : No [...] Rhythm : Regular Nail Bed Color : [place] Chest Pain : No Capillary Refill, Left [...] mm Pupil Size, Right : 3 mm Peralta Coma Scale Link : Open [facility] Jasmin Thornton RN - 10/27/2020 12:21 EDT Diana Coma Diana Best Motor Response : Obey commands Diana Best Verbal Response : Oriented Peralta Eye Opening Response : Spontaneous Peralta Coma Score : 15 Jasmin Thornton RN - 10/27/2020 12:21 EDT Electronically signed by [facility] Conversion Esthetician Cerner at 11/04/2022 3:11 PM CDT documented in this encounter Plan of Treatment Not on file documented as of this encounter Visit Diagnoses Not on filedocumented in this encounter Care Teams Public Address Systems Mechanic Relationship Specialty Start Date End Date Maya Torres, AREA SECRETARY [address] [phone] PCP - General Family Medicine 08/27/22 documented as of this encounter
[2025-07-07 10:30] VITALS: BP 134/89; PULSE 79; RESP 18; TEMP 36.8; O2SAT 98
[2025-07-07] MEDS: DAPTOmycin 1,000 MG in 0.9 % SODIUM CHLORIDE 50 ML 100 MG IV (11:09)
[2025-07-07] MEDS: SODIUM CHLORIDE 0.9% 10ML FLUSH SYRINGE 10 ML IV (11:10)
[2025-07-07 12:14] VITALS: BP 182/91; PULSE 76; RESP 18; TEMP 36.7; O2SAT 97
== END 2025-07-07 12:15 | disposition home or self-care (01) ==
LOC: INF 10:16
PROVIDERS: PCP Nurse Practitioner; Visit Provider Nurse Practitioner
DX: T85.73 Infection and inflammatory reaction due to nervous system devices, implants and graft (principal)
CPT/HCPCS: 96365; 99212; G0463; J0878

== ENCOUNTER 2025-07-08 10:22 | Outpatient (CLI) | payer MEDICARE, OTHER, SELFPAY ==
--- OUTSIDE RECORDS SUMMARY | 2022-12-01 11:56 | XMS_ITS | Encounter Summary ---
[facility] [address] [place] [address] Care Team Providers Care Feed House Supervisor Name Role Phone Maya Torres Primary Care Provider + [phone] Encounter Details Date Type Department Care Team (Late st Contact Info) Description 12/01/2022 12:56 PM EDT Hospital Encounter [facility] PULMONARY & CRITICAL CARE MEDICINE [facility] [place] [address] Social History Tobacco Use Types [...] Narrative 12/01/2022 1:31 PM EDT Stephane Annton [id number] 12/01/2022 Chest X-Ray PA & Lateral Indication: [...] on filedocumented in this encounter Care Teams Feed House Supervisor Relationship Specialty Start Date End Date Maya Torres [address] [place] [address] PCP - General Nurse Practitioner 09/28/22 documented as of this encounter
--- OUTSIDE RECORDS SUMMARY | 2024-04-27 06:30 | XMS_ITS ---
Author Organization [facility] Address [address] [place] [address] Care Team Providers Care Technical Sales Engineer Name Role Phone Jerome Morrissey II Unavailable Michael COLEMAN -Pramod Velazquez MD, Issa Unavailable [phone] Allergies No Known Allergies REASON FOR VISIT [...] Diagnosis [facility] [address] [place] [address] 04/27/2024 Jerome Morrissey Other longterm (current) drug therapy Z79.899 ; Spondylosis without myelopathy or radiculopathy, cervical region M47.812 ; Postlaminectomy syndrome, not elsewhere classified M96.1 and Spondylosis without myelopathy or radiculopathy, lumbar region M47.816 Assessments Encounter Date Diagnosis (ICD Code) Assessment Notes Treatment Notes Treatment Clinical Notes Section Notes 04/27/2024 Other red cross worker (current) drug therapy (ICD-10 - Z79.899) 04/02/2024 1. Discontinue [place] 5/325mg QD PRN 2. FU 1 month with [facility] 3. [employer] [facility] to change SCS settings 4. [...] no relief with TFESI LT in January. [employer] rep in the room changing SCS settings. [...] no relief with TFESI LT in January. [employer] rep in the room changing SCS settings. [...] no relief with TFESI LT in January. [employer] rep in the room changing SCS settings. [...] no relief with TFESI LT in January. [employer] rep in the room changing SCS settings. [...] Of Treatment Treatment Notes Assessment Notes Other longterm (current) drug therapy 04/02/2024 1. Discontinue [place] 5/325mg QD PRN 2. FU 1 month with [facility] 3. [employer] rep to change SCS settings 4. S/P [...] Stephane YANEZ ADOB: 3 (74 yo M)Acc No.[id number]:04/27/2024 FollowUP Patient: Stephane RODRIGUEZ Provider: Reji Morrissey II, M.D. :1950 A ge:73 Y S ex:Male Date:04/27/2024 Address:[address] [place], [place] [id number] Subjective: * Chief Complaints: * 1 . [...] relief for 1 hour 0 08/09/2022SCS Trial [place] 80% relief for 1 week 0 02/13/2024#1 [...] * Vitals: * Examination: G eneral Examination: Nurse/Dowel Pin Worker: Phill McnamaraMA-Shamar)Madeleine 04/02/2024 9:48:48 AM > . [...] scars. Assessment: * Assessment: 1. O ther red cross worker (current) drug therapy - Z79.899 (Primary) 2 [...] no relief with TFESI LT in January. [employer] rep in the room changing SCS settings. [...] signature of Raymon Morrissey II, M.D. on 07/08/2025 at 09:27 AM ESCROW CLOSER Sign off status: Pending * Provider: Reji Morrissey II, M.D. Date: 1 Generated for Irwin spears/Davon/Eric on: 1 09/08/2024 09:27 AM ESCROW CLOSER History and Physical Notes * HPI (History [...] to advanced foraminal encroachment PHYSICAL/AQUA THERAPY/DME/OTHER HISTORY: 5475-7321 Chiropractic therapy program complete 06/2023-Present: Patient continues a prescribed home exercise program 3-5 times per week which includes walking, lumbar stretches, and alternating leg lifts PERTINENT SURGICAL EVALUATIONS/SPECIALIST CONSULTS 04/2022 - Dr. Rodriguez - No surgery recommened, recommends SCS trial PREVIOUS INJECTION\PROCEDURE HISTORY: 08/21/2019 #1 SIJI RT 20% relief for 1 hour 08/09/2022 SCS Trial [place] 80% relief for 1 week 02/13/2024 #1 [...] wi th an antalgic gait, pitched forward Nurse/Dowel Pin Worker: Mendez SHARMA-Shamar)Francisco J 04/02/2024 9:48:48 AM > [...]
--- OUTSIDE RECORDS SUMMARY | 2024-05-28 10:30 | XMS_ITS ---
Author Organization [facility] Address [address] [place] [address] Care Team Providers Care Physician/Allergy/Immunology Name Role Phone Jerome Morrissey II Unavailable [phone] Michael COLEMAN -Pramod Velazquez MD, Issa Unavailable [phone] Allergies No Known Allergies REASON FOR VISIT [...] Diagnosis [facility] [address] [address] 05/28/2024 Jerome Morrissey Other ticket collector or usher (current) drug therapy Z79.899 ; Spondylosis without myelopathy or radiculopathy, cervical region M47.812 ; Postlaminectomy syndrome, not elsewhere classified M96.1 and Spondylosis without myelopathy or radiculopathy, lumbar region M47.816 Assessments Encounter Date Diagnosis (ICD Code) Assessment Notes Treatment Notes Treatment Clinical Notes Section Notes 05/28/2024 Other penitentiary (current) drug therapy (ICD-10 - Z79.899) 04/02/2024 1. Discontinue [place] 5/325mg QD PRN 2. FU 1 month with [facility] 3. [employer] rep to change SCS settings 4. S/P [...] no relief with TFESI LT in January. [employer] rep in the room changing SCS settings. [...] no relief with TFESI LT in January. [employer] rep in the room changing SCS settings. [...] no relief with TFESI LT in January. [employer] in the room changing SCS settings. Patient [...] no relief with TFESI LT in January. [employer] rep in the room changing SCS settings. [...] Of Treatment Treatment Notes Assessment Notes Other ticket collector or usher (current) drug therapy 04/02/2024 1. Discontinue [place] 5/325mg QD PRN 2. FU 1 month with [facility] 3. [employer] rep to change SCS settings 4. S/P [...] Stephane MENDIETA ADOB: 3 (74 yo M)Acc No.[id number]:05/28/2024 Progress NOte Patient: Stephane RODRIGUEZ Provider: Reji Morrissey II, M.D. :1950 A ge:73 Y S ex:Male Date:05/28/2024 Address:[address] [place] [phone] Subjective: * Chief Complaints: * 1 . [...] for 1 hour 0 08/09/2022 SCS Trial Xwmles89% relief for 1 week 0 02/08/2024- #1 [...] * Vitals: * Examination: G eneral Examination: Nurse/Operations Support Analyst: Madeleine Gonzalez (MA-Lex) 04/02/2024 9:48:48 AM > [...] scars. Assessment: * Assessment: 1. O ther penitentiary (current) drug therapy - Z79.899 (Primary) 2 [...] no relief with TFESI LT in January. [employer] rep in the room changing SCS settings. [...] Raymon Morrissey II, M.D. on 07/08/2025 at 09:28 AM REFRIGERATING ENGINEER HEAD Sign off status: Pending * Provider: Reji Morrissey II, M.D. Date: 07/28/2023 Generated for Irwin spears/Davon/Nicholasransmitting on: 09/08/2024 09:28 AM REFRIGERATING ENGINEER HEAD History and Physical Notes * HPI (History [...] to advanced foraminal encroachment PHYSICAL/AQUA THERAPY/DME/OTHER HISTORY: 6404-1814 Chiropractic therapy program complete 06/2023-Present: Patient continues a prescribed home exercise program 3-5 times per week which includes walking, lumbar stretches, and alternating leg lifts PERTINENT SURGICAL EVALUATIONS/SPECIALIST CONSULTS 04/2022 - Dr. Rodriguez - No surgery recommened, recommends SCS trial PREVIOUS INJECTION\PROCEDURE HISTORY: 08/21/2019 #1 SIJAYLYN RT 20% relief for 1 hour 08/09/2022 SCS Trial [place] 80% relief for 1 week 02/08/2024 - [...] wi th an antalgic gait, pitched forward Nurse/Operations Support Analyst: Mendez (ALEJANDRINA-[facility])Francisco J 04/02/2024 9:48:48 AM > [...]
--- OUTSIDE RECORDS SUMMARY | 2025-07-08 10:27 | XMS_ITS | Encounter Summary ---
Author Organization [employer] ([place], [place], [place], [place], [place]) Address [address] [place] [address] Care Team Providers Care Computer Operations Analyst Name Role Phone Maya Trores Reji BELCHER Primary Care Provider [phone] Encounter Details Date Type Department Care Team (Late st Contact Info) Description 10/27/[address] [facility] [place] [place] Family Medicine [address] [place] [address] ProviderJean MD [address] [place] [address] Social History Tobacco Use Types [...] 10/27/2020 12:55:00 EDT fentaNYL,50mcg IV Push,Left Antecubital [place] Pain Assessment Pain Scale Used : 0-10 [...] on filedocumented in this encounter Care Teams Computer Operations Analyst Relationship Specialty Start Date End Date Maya Torres, PROGRAM OFFICER [address] [phone] PCP - General Family Medicine 08/27/22 documented as of this encounter
--- OUTSIDE RECORDS SUMMARY | 2025-07-08 10:27 | XMS_ITS | Referral Summary ---
Author Organization [employer] ([place], [place], [place], [place], [place]) Address [address] [place] [address] Care Team Providers Care Boomswing Operator Name Role Phone Maya Torres APRN Primary Care Provider [phone] Allergies No known active allergies Medications traZODone [...] Date Jan rded Speak language other than Greenlandic at home Not on file 08/04/2023 Want [...] on file Insurance MEDICARE PART A B [facility] Care Teams Boomswing Operator Relationship Specialty Start Date End Date Maya Torres, CONTACT REPRESENTATIVE [address] [phone] PCP - General Family Medicine 08/27/22
--- OUTSIDE RECORDS SUMMARY | 2025-07-08 10:27 | XMS_ITS | Clinical Summary ---
Author Organization [facility] Address [address] [place] [address] Care Team Providers Care Gear Cutting Machine Set Up Operator Name Role Phone Unavailable Primary Care [...]
--- OUTSIDE RECORDS SUMMARY | 2025-07-08 10:27 | XMS_ITS | Encounter Summary ---
Author Organization [employer] ([place], [place], [place], [place], [place]) Address [address] [place] [address] Care Team Providers Care Flange Turner Name Role Phone Maya Torres Reji BELCHER Primary Care Provider [phone]- [phone] Encounter Details Date Type Department Care Team (Late st Contact Info) Description 10/27/2020 Transcribed Document [facility] [place] [facility] [place] [address] ProviderJean MD [address] [place], [place] [address] Social History Tobacco Use Types Packs/Day Years [...] on filedocumented in this encounter Care Teams Flange Turner Relationship Specialty Start Date End Date Maya Torres, ELECTRICAL PROSPECTING OPERATOR [address] [phone] PCP - General Family Medicine 08/27/22 documented as of this encounter
--- OUTSIDE RECORDS SUMMARY | 2025-07-08 10:27 | XMS_ITS | Encounter Summary ---
Author Organization [employer] ([place], [place], [place], [place], [place]) Address [address] [place] [address] Care Team Providers Care Metal Window Screen Assembler Name Role Phone Maya Torres Reji BELCHER Primary Care Provider [phone] Encounter Details Date Type Department Care Team (Late st Contact Info) Description 10/27/2020 Transcribed Document [facility] Family Medicine [facility] [place] [address] ProviderJean MD [address] [place] [address] Social History Tobacco Use Types [...] 12:04 EDT by Alina Easley Flex Team clam sorter Triage Across the Room Chief Complaint : pt here for abn bruising to lower abd ,states tore a muscle last week, had FU but not any better, states no blood thinners, pt c/o fullnes to abd, Triage Date/Time : 10/27/2020 12:04 EDT Alina Easley Flex Team Rn - 10/27/2020 12:04 EDT DCP GENERIC CODE Tracking Acuity : 2 - Emergent Tracking Group : [facility] ED Alina Easley Flex Team Rn - 10/27/2020 12:04 EDT Mode of Arrival : Ambulatory Transported to ED by : Private vehicle To Room Via : Wheelchair Accompanied By : Spouse ED Vital Signs : Document Height & Weight : Document ED Allergies : Document ED Reason for Visit : Document Tetanus Immunization : Less than 5 years Civil Rights Representative Needed : No Alina Easley Flex Team [...] Problems(Active) At risk for sleep apnea (IMO :34959670 ) Name of Problem: At risk for sleep apnea ; Recorder: SYSTEM, SYSTEM; Confirmation: Confirmed ; Classification: Medical ; Code: [id number] ; Last Updated: 06/16/2018 8:18 EST ; Life Cycle Date: 06/16/2018 ; Life Cycle Status: Active ; Vocabulary: IMO Enlarged prostate (SNOMED CT :169242843 ) Name of Problem: Enlarged prostate ; Recorder: Shavonne Jimenez RN; Confirmation: Confirmed ; Classification: Medical ; Code: [id number] ; Contributor System: PowerChart ; Last Updated: 06/16/2018 8:22 EST ; Life Cycle Date: 06/16/2018 ; Life Cycle Status: Active ; Vocabulary: SNOMED CT Hypertension (SNOMED CT :9315610315 ) Name of Problem: Hypertension ; Recorder: Shavonne Jimenez RN; Confirmation: Confirmed ; Classification: Medical ; Code: [id number] ; Contributor System: PowerChart ; Last Updated: 06/16/2018 8:21 EST ; Life Cycle Date: 06/16/2018 ; Life Cycle Status: Active ; Vocabulary: SNOMED CT Seasonal allergies (SNOMED CT :8412686019 ) Name of Problem: Seasonal allergies ; Recorder: Shavonne Jimenez RN; Confirmation: Confirmed ; Classification: Medical ; Code: [id number] ; Contributor System: MedineChart ; Last Updated: 06/16/2018 8:22 EST ; Life Cycle Date: 06/16/2018 ; Life Cycle Status: Active ; Vocabulary: SNOMED CT Diagnoses(Active) Medical screening exam Date: 10/27/2020 ; Diagnosis Type: Reason For Visit ; Confirmation: Complaint of ; Clinical Dx: Medical screening exam ; Classification: Medical ; Clinical Service: Non-Specified ; Code: PNED ; Probability: 0 ; Diagnosis Code: [id number] ED Height and Weight Height Source : Stated Height Entry Format : [place] Height, Feet : 5 ft(Converted to: 152 cm, 60 Inch) Height, Inches : 8 Inch(Converted to: 0 ft 8 Inch, 20.32 cm) Clinical Height : 172.72 cm Weight Source, ED : Critical estimated dosing weight Weight Entry Format : [place] Weight, Pounds : 250 lb Clinical Dosing Weight : 113.64 kg Body Surface Area (BSA) : 2.25 m2 Body Mass Index : 38.1 kg/m2 (HI) [place] Body Weight (IBW) : 67.45 kg Alina [...] filedocumented in this encounter Care Teams Metal Window Screen Assembler Relationship Specialty Start Date End Date Maya Torres, FIRE TECHNICIAN [address] [phone] PCP - General Family Medicine 08/27/22 documented as of this encounter
--- OUTSIDE RECORDS SUMMARY | 2025-07-08 10:27 | XMS_ITS | Encounter Summary ---
Author Organization [employer] ([place], [place], [place], [place], [place]) Address [address] [place] [address] Care Team Providers Care Bulk Plant Supervisor Name Role Phone Maya Torres Reji BELCHER Primary Care Provider [phone]- [phone] Encounter Details Date Type Department Care Team (Late st Contact Info) Description 10/27/2020 Transcribed Document [facility] [place] [address] [place] [address] ProviderJean MD [address] [place], [place] [id number] Social History Tobacco Use Types Packs/Day Years Used Date Smoking Tobacco: Never Assessed Sex and Gender Information Value Date Recorded Sex Assigned at Not on file Legal Sex Male 5:19 PM CDT Gender Identity Not on file Sexual Orientation Not on file documented as of this encounter Miscellaneous Notes * Cerner Conversion Note - Jean ProviderMD - 10/27/2020 11:59 AM CDT [place] Suicide Severity Rating Scale (C-SSRS) Entered On: 10/27/2020 12:32 EDT Performed On: 10/27/2020 12:21 EDT by Jasmin Thornton RN [place] Suicide Severity Rating Scale (C-SSRS) CSSRS Past Month Wish to be : No CSSRS Past Month Suicidal Thoughts : No CSSRS Lifetime Suicide Behavior : No Suicide Severity Rating Score : 0 Suicide Severity Rating : No Additional Care Required at this time Jasmin Thornton RN - 10/27/2020 12:21 EDT Electronically signed by Becky Tejeda Conversion Edge Banding Machine Offbearer Cerner at 11/04/2022 3:15 PM CDT documented in this encounter Plan of Treatment Not on file documented as of this encounter Visit Diagnoses Not on filedocumented in this encounter Care Teams Bulk Plant Supervisor Relationship Specialty Start Date End Date Maya Torres, BILINGUAL MANAGER [address] [phone] PCP - General Family Medicine 08/27/22 documented as of this encounter
--- OUTSIDE RECORDS SUMMARY | 2025-07-08 10:27 | XMS_ITS | Encounter Summary ---
Author Organization [employer] ([place], [place], [place], [place], [place]) Address [address] [place] [address] Care Team Providers Care Showroom Salesperson Name Role Phone Maya Torres Reji BELCHER Primary Care Provider [phone]- [phone] Encounter Details Date Type Department Care Team (Late st Contact Info) Description 10/18/2020 Transcribed Document [facility] [place] Family Medicine [address] [place] [address] ProviderJean MD [address] [place], [place] [id number] Social History Tobacco Use Types Packs/Day Years Used Date Smoking Tobacco: Never Assessed Sex and Gender Information Value Date Recorded Sex Assigned at Not on file Legal Sex Male 5:19 PM CDT Gender Identity Not on file Sexual Orientation Not on file documented as of this encounter Miscellaneous Notes * Cerner Conversion Note - Jean ProviderMD - 10/18/2020 7:05 PM CDT [place] Suicide Severity Rating Scale (C-SSRS) Entered On: 10/18/2020 19:42 EDT Performed On: 10/18/2020 19:41 EDT by Dee Ocampo RN [place] Suicide Severity Rating Scale (C-SSRS) CSSRS Past [...] on filedocumented in this encounter Care Teams Showroom Salesperson Relationship Specialty Start Date End Date Maya Torres, OIL WELL SERVICES SUPERINTENDENT [address] [phone] PCP - General Family Medicine 08/27/22 documented as of this encounter
--- OUTSIDE RECORDS SUMMARY | 2025-07-08 10:27 | XMS_ITS | Clinical Summary ---
Author Organization [facility] Address [address] [place] [address] Phone Care Team Providers Care Biodiesel Production Associate Name Role Phone Jose Cruz COLEMAN, Domingo Jett Unavailable [phone] Olga Licea APRN Unavailable [phone] Reason for Visit and Chief Complaint The Chief Complaint is: back pain Problems Includes: Problems addressed during this encounter and other active Problems All Visits Onset Date Date of Diagnosis Resolved Date Provider Condition Status Soft Tissue Pain Hand 12/05/2024 12/05/2024 Flako Pulido PA-C Active Last Documented On 5 1:43AM ; [facility] History of Lower Back Pain M idline Right Side 04/12/2022 04/12/2022 Holden Modi PA-C Active Last Documented On 5 1:41AM ; [facility] Joint Pain Left Thumb 03/12/2021 03/12/2021 Charles Hernandez MD Active Last Documented On 5 1:40AM ; [facility] Joint Pain in Both Knees 04/05/2019 04/05/2019 Arlet Billingsley MD Active Last Documented On 5 1:39AM ; [facility] Plan of Treatment Patient screened for future fall risk: documentation of any fall with injury in past year. - Last Documented On 01/28/2025 11:48AM ; [facility] Patient was seen by myself Holden Modi PA-C. Patient will follow up 1 week we are going to keep him on clindamycin we will take the geronimo out of all the incisions today and recheck this in a week - Last Documented On 01/28/2025 11:48AM ; [facility] Pending Tests Order Diagnosis Results Due Ordering P xena Radiology - MRI MRI Lumbar Spine 04/26/22 Chas Modi PA-C Last Documented On 2 1:06PM ; [facility] Future Appointments Date Time Location Provi tahira Post Op 07/19/2025 11:00AM [facility] Holden Modi PA-C Last Documented On 5 10:29AM ; [facility] Instructions to patient Lose weight Last Documented On 5 10:49AM ; [facility] Assessments Includes: Assessments from this encounter Findings - Overweight - Last Documented On 01/28/2025 11:48AM ; [facility] 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 - Last Documented On 01/28/2025 11:48AM ; [facility] Instructions Includes: Instructions from this encounter Instructions to patient Lose weight Last Documented On 5 10:49AM ; [facility] Medical Equipment - Implanted [...] pills, 3 three times a day Pharmacy: [facility] [id number] , [facility], [address] - Last Documented On 5 11:06AM By Quentin Burk ; [facility] Current Medications (continue as prescribed) Percocet 5-325 MG Oral Tablet 07/03/2025 - 07/18/2025 Provider: Issa Rodriguez MD Diagnosis: 1 po q 4h prn pain Last Documented On 5 8:39AM By Issa Rodriguez ; [facility] Clindamycin HCl 300 MG Oral Capsule 01/07/2025 Provi tahira: Holden Modi PA-C Diagnosis: Last Documented On 5 10:36AM By Quentin Burk ; [facility] oxyCODONE-Acetaminophen 5-325 MG Oral Tablet Provider: Issa Rodriguez MD Diagnosis: Last Documented On 5 9:50AM By Quentin Burk ; [facility] Pantoprazole Sodium 40 MG Or al Tablet Delayed Release 12/09/2024 Provider: Maya Torres RFID ENGINEER Diagnosis: Last Documented On 5 9:50AM By Quentin Burk ; [facility] LORazepam 1 MG Oral Tablet 12/04/2024 Provider: Nancy Torres RFID ENGINEER Diagnosis: Last Documented On 5 9:50AM By Quentin Burk ; [facility] Doxycycline Hyclate 100 MG Oral Capsule 12/04/2024 P padminider: Diagnosis: Last Documented On 5 9:50AM By Quentin Burk ; [facility] sulfaSALAzine 500 MG Oral Tablet 11/27/2024 Provider : Maya Torres RFID ENGINEER Diagnosis: Last Documented On 5 9:50AM By Quentin Burk ; [facility] Albuterol Sulfate HFA 108 (9 0 Base) MCG/ACT Inhalation Aerosol Solution 11/07/2024 Provider: Maya anderson RFID ENGINEER Diagnosis: Last Documented On 5 9:50AM By Quentin Burk ; [facility] Finasteride 5 MG Oral Tablet 11/03/2024 Provider: Maya Torres RFID ENGINEER Diagnosis: Last Documented On 5 9:50AM By Quentin Burk ; [facility] Tamsulosin HCl 0.4 MG Oral Capsule 11/03/2024 Provid er: Maya Torres RFID ENGINEER Diagnosis: Last Documented On 5 3:49PM By Marifer Nuñez ; [facility] Amoxicillin 875 MG Oral Tablet 09/11/2024 Provider: Diagnosis: Last Documented On 5 9:50AM By Quentin Burk ; [facility] predniSONE 10 MG Oral Tablet 03/11/2021 Provider: Jarek Muñiz DO Diagnosis: Last Documented On 8:34AM By Deborah Lowery ; [facility] Amoxicillin 500 MG Oral Capsule 03/11/2021 Provider: Jarek Muñiz DO Diagnosis: Last Documented On 8:34AM By Deborah Lowery ; [facility] Cephalexin 500 MG Oral Capsule 03/10/2021 Provider: Diagnosis: Last Documented On 8:34AM By Deborah Lowery ; [facility] HYDROcodone-Acetaminophen 5-325 MG Oral Tablet 021 Provider: Diagnosis: Last Documented On 8:34AM By Deborah Lowery ; [facility] Gabapentin 300 MG Oral Capsule 03/06/2021 Provider: Diagnosis: Last Documented On 8:34AM By Deborah Lowery ; [facility] LORazepam 1 MG Oral Tablet 03/06/2021 Provider: Diagnosis: Last Documented On 8:34AM By Deborah Lowery ; [facility] Esomeprazole Magnesium 40 MG Oral Capsule Delayed Rele ase 03/04/2021 Provider: Diagnosis: Last Documented On 8:34AM By Deborah Lowery ; [facility] Esomeprazole Magnesium 40 MG Oral Capsule Delayed Rele ase 03/04/2021 Provider: Diagnosis: Last Documented On 8:34AM By Deborah Lowery ; [facility] Fluticasone Propionate 50 MCG/ACT Nasal Suspension Provider: Diagnosis: Last Documented On 8:35AM By Deborah Lowery ; [facility] Past Medications on file Clindamycin HCl 300 MG Oral Capsule 12/28/2024 - 01/08/2025 Provider: Holden Steiner Diagnosis: three times a day Last Documented On 5 10:10AM By Quentin Burk ; [facility] Percocet 5-325 MG Oral Tablet 12/19/2024 - 01/03/2025 Provider: Issa Rodriguez MD Diagnosis: 1 po q 4h prn pain Last Documented On 5 8:40AM By Issa Rodriguez ; [facility] Losartan Potassium 100 MG Oral Tablet 12/05/2024 - Provider: Diagnosis: Last Documented On 3:50PM By Marifer Nuñez ; [facility] DULoxetine HCl 60 MG Oral Ca psule Delayed Release Particles 12/05/2024 - 03/05/2025 Provider: Diagnosis: Last Documented On 3:49PM By Marifer Nuñez ; [facility] Montelukast Sodium 10 MG Oral Tablet 12/05/2024 - 02/15 Provider: Diagnosis: Last Documented On 3:49PM By Marifer Nuñez ; [facility] Medications Administered Includes: Administered Medications from this encounter No Administered Medications Recorded Vital Signs Includes: Vital Signs from this encounter Vital Name 01/07/2025 11:15A 01/07/2025 10: 50A Temp-Oral (F) 97.5 Height (in) 69 Weight (lb) 250 Body Mass Index 36.9 Body Surface Area 2.3 Pain Level 2 Last Documented: On 01/07/2025 11:15A M ; [facility] On 01/07/2025 10:50AM ; [facility] Results Includes: Results discussed during [...] Documented On 5 10:49AM ; [facility] No recent change in diet 04/22/2022 Last Documented On 5 10:49AM ; [facility] Not a current smoker. 04/22/2022 Last Documented On 5 10:49AM ; [facility] Non-smoker 03/12/2021 Last Documented On 5 10:49AM ; [facility] No tobacco use 04/05/2019 Last Documented On 5 10:49AM ; [facility] Smoking status : Never smoker 04/05/2019 Last Documented On 5 10:49AM ; [facility] Caffeine use 04/05/2019 Last Documented On 5 10:49AM ; [facility] No recent change in diet 04/05/2019 Last Documented On 5 10:49AM ; [facility] Not a current smoker 04/05/2019 Last Documented On 5 10:49AM ; [facility] Not exercising regularly 04/05/2019 Last Documented On 5 10:49AM ; [facility] Not using alcohol 04/05/2019 Last Documented On 5 10:49AM ; [facility] Not using drugs 04/05/2019 Last Documented On 5 10:49AM ; [facility] Sex - Male 07/05/2025 Last Documented On 5 2:08PM ; [facility] Procedures and Surgical History Surgical History Last Updated History of hernia repair 04/05/2019 Last Documented On 5 10:49AM ; [facility] Medical History Includes: Medical History addressed during this encounter Description Last Updated No recent immunization for flu Last Documented On 5 10:49AM ; [facility] No recent immunization for pneumococcal pneumonia 03/12/2021 Last Documented On 5 10:49AM ; [facility] cataracs 04/05/2019 Last Documented On 5 10:49AM ; [facility] Arthritic joint problems 04/05/2019 Last Documented On 5 10:49AM ; [facility] Intermittent hypertension 04/05/2019 Last Documented On 5 10:49AM ; [facility] Family History Includes: Family History addressed during this encounter Description Last Updated Family history of cancer 04/05/2019 Last Documented On 5 10:49AM ; [facility] Family history of hypertension 9 Last Documented On 10:49AM ; [facility] Review of Systems Includes: [...] Anxiety Last Documented On 5 10:49AM ; [facility] Physical Exam Includes: Physical Exam from this encounter Allergies Includes: Active Allergies No Known Allergies Care Biodiesel Production Associate Name (Identifier) Role/Relation Location/Telecom Last Documented By Domingo Billingsley MD ([id number]) Assigned practitioner (occupation) tel: Last Documented On 07/05/2025 2:08PM ; [facility] Olga Licea APRN ([id number]) [address] [place] [address], [id number] tel: Last Documented On 04/05/2019 9:06AM ; [facility] Encounters Encounter Provider Location (Healthcare Service Location) Date Check-In Time Check-Out Time Diagnosis Encounter Disposition Post Op Hloden Modi PA-C [facility] 2024 10:33AM 11:15AM Overweight Payer Includes: Active Insurance Policies Plan Name (Payer ID) Coverage Type Member ID Group # Subscriber (ID) Relationship Effective Dates 1 - Medicare Part B [facility] ([id number]) [id number] Stephane Mendieta Self (Checked on 06/03/2025) Last Documented On 9 7:57AM ; [facility] 2 - [employer] Medicare [facility] [id number] Stephane Mendieta Self 09/15/2017 - Unknown Last Documented On 9 8:40AM ; [facility] Clinical Notes Includes: Clinical Notes from this encounter * Progress note Date Encounter Last Documented by 01/07/2025 Post Op Last documented on 01/28/2025; 11:48 AM, Holden Modi PA-C; [facility] Active Problems & Conditions - [...] Care Team - Olga Licea APRN - INVESTIGATIONS DIRECTOR
--- OUTSIDE RECORDS SUMMARY | 2025-07-08 10:27 | XMS_ITS | Encounter Summary ---
Author Organization [employer] ([place], [place], [place], [place], [place]) Address [address] [place] [address] Care Team Providers Care Pricing Coordinator Name Role Phone Maya Torres SIMI Primary Care Provider [phone] Encounter Details Date Type Department Care Team (Late st Contact Info) Description 10/27/2020 Transcribed Document [facility] [place] [facility] [place] [address] ProviderJean MD [address] [place] [id number] Social History Tobacco Use Types Packs/Day Years [...] EDT Height Source Stated Height Entry Format [place] Height/Length, NEPALESE (ft) 5 ft Height/Length NEPALESE 8 Inch CLINICALHEIGHT 172.72 cm Serafina Body Weight 67.45 kg Weight Source, ED Critical estimated dosing weight Weight Entry Format [place] Weight [place] lb 250 lb CLINICALWEIGHT 113.64 kg Body [...] Color Yellow Urine Appearance Clear Urine Specific Metaline 1.006 Urine pH Dipstick 6.5 Urine Leukocyte [...] % LOW ALYC # 1 K/uL NA [place] Percent Man 2 % LOW Eos Percent Man 1 % Baso Percent Man 1 % Myelo Percent Man 2 % HI RBC Morphology Normal Platelet Ct Estimate Adequate Slide Review Add Diff Man PT 9.9 Second(s) INR 0.9 PTT 25.2 Second(s) Procalcitonin <0.25 ng/mL SARS-CoV-2 (COVID19 PCR) Negative . Radiology results: Radiology Results (Last 48 hours) [id number] -- 10/27/2020 11:59 CT Abdomen Pelvis W [...] treatment plan, Patient indicated understanding of instructions. Electronically signed by Becky Tejeda Conversion Workers' Compensation Claims Supervisor [employer]ner at 11/04/2022 3:20 PM CDT documented in this encounter Plan of Treatment Not on file documented as of this encounter Visit Diagnoses Not on filedocumented in this encounter Care Teams Pricing Coordinator Relationship Specialty Start Date End Date Maya Torres, FOSTER CARE WORKER [address] [address] PCP - General Family Medicine 08/27/22 documented as of this encounter
--- OUTSIDE RECORDS SUMMARY | 2025-07-08 10:27 | XMS_ITS ---
Care Plan - [facility] Created on: July 08, 2025 Stephane Mendieta : 1950 Sex: Male Author Organization [facility] Address [address] [place] [address] Phone Care Team Providers Care Companion Caregiver Name Role Phone Jose Cruz COLEMAN, Domingo Jett Unavailable [phone] Olga Licea APRN Unavailable [phone]
--- OUTSIDE RECORDS SUMMARY | 2025-07-08 10:27 | XMS_ITS | Clinical Summary ---
Author Organization [facility] Address [address] [place] [address] Phone Care Team Providers Care Research And Development Specialist Name Role Phone Jose Cruz COLEMAN, Domingo Jett Unavailable + [phone] Olga Licea APRN Unavailable [phone] Reason for Visit and Chief Complaint The Chief Complaint is: back pain Problems Includes: Problems addressed during this encounter and other active Problems All Visits Onset Date Date of Diagnosis Resolved Date Provider Condition Status Soft Tissue Pain Hand 12/05/2024 12/05/2024 Flako Pulido PA-C Active Last Documented On 5 1:43AM ; [facility], [facility] History of Lower Back Pain M idline Right Side 04/12/2022 04/12/2022 Holden Modi PA-C Active Last Documented On 5 1:41AM ; [facility], [facility] Joint Pain Left Thumb 03/12/2021 03/12/2021 Charles Hernandez MD Active Last Documented On 5 1:40AM ; [facility], [facility] Joint Pain in Both Knees 04/05/2019 04/05/2019 Arlet Billingsley MD Active Last Documented On 5 1:39AM ; [facility], [facility] Plan of Treatment Patient screened for future fall risk: documentation of any fall with injury in past year. - Last Documented On 12/28/2024 12:21PM ; [facility], [facility] Patient was seen by myself Holden Modi [...] - Last Documented On 12/28/2024 12:21PM ; [facility], [facility] Pending Tests Order Diagnosis Results Due Ordering P xena Radiology - MRI MRI Lumbar Spine 04/26/22 Chas Modi PA-C Last Documented On 2 1:06PM ; [facility], [facility] Future Appointments Date Time Location Provi tahira Post Op 07/19/2025 11:00AM [facility] Holden Modi PA-C Last Documented On 5 10:29AM ; [facility] Instructions to patient Lose weight Last Documented On 5 9:50AM ; [facility] Assessments Includes: Assessments from this encounter Findings - Overweight - Last Documented On 12/28/2024 12:21PM ; [facility] Spinal cord stimulator placement with paddles system December 19, 2024 - Last Documented On 12/28/2024 12:21PM ; [facility] Instructions Includes: Instructions from this encounter Instructions to patient Lose weight Last Documented On 5 9:50AM ; [facility] Medical Equipment - Implanted Devices Includes: Current Devices No Medical Equipment Recorded Medications Includes: Medications discussed during this encounter and other current Medications New / Renewed during this visit Holden Modi PA-C on 12/28/2024 Clindamycin HCl 300 MG Oral Capsule Provider: Holden Modi PA-C 11 day supply: 33 capsule, 0 refills Diagnosis: three times a day Pharmacy: [facility] [address] , [facility], [address] - Last Documented On 5 10:10AM By Quentin Burk ; [facility], [facility] Current Medications (continue as prescribed) Percocet 5-325 MG Oral Tablet 07/03/2025 - 07/18/2025 Provider: Issa Rodriguez MD Diagnosis: 1 po q 4h prn pain Last Documented On 5 8:39AM By Issa Rodriguez ; [facility], [facility] Clindamycin HCl 300 MG Oral Capsule 01/07/2025 Provi tahira: Holden Modi PA-C Diagnosis: Last Documented On 5 10:36AM By Quentin Burk ; [facility], [facility] oxyCODONE-Acetaminophen 5-325 MG Oral Tablet Provider: Issa Rodriguez MD Diagnosis: Last Documented On 5 9:50AM By Quentin Burk ; [facility], [facility] Pantoprazole Sodium 40 MG Or al Tablet Delayed Release 12/09/2024 Provider: Maya Torres ORTHOPHOTO TECH/DRAFTSMAN Diagnosis: Last Documented On 5 9:50AM By Quentin Burk ; [facility], [facility] LORazepam 1 MG Oral Tablet 12/04/2024 Provider: Nancy Torres ORTHOPHOTO TECH/DRAFTSMAN Diagnosis: Last Documented On 5 9:50AM By Quentin Burk ; [facility], [facility] Doxycycline Hyclate 100 MG Oral Capsule 12/04/2024 P rovider: Diagnosis: Last Documented On 5 9:50AM By Quentin Burk ; [facility], [facility] sulfaSALAzine 500 MG Oral Tablet 11/27/2024 Provider : Maya Torres ORTHOPHOTO TECH/DRAFTSMAN Diagnosis: Last Documented On 5 9:50AM By Quentin Burk ; [facility], [facility] Albuterol Sulfate HFA 108 (9 0 Base) MCG/ACT Inhalation Aerosol Solution 11/07/2024 Provider: Maya anderson ORTHOPHOTO TECH/DRAFTSMAN Diagnosis: Last Documented On 5 9:50AM By Quentin Burk ; [facility], [facility] Finasteride 5 MG Oral Tablet 11/03/2024 Provider: Maya Torres ORTHOPHOTO TECH/DRAFTSMAN Diagnosis: Last Documented On 5 9:50AM By Quentin Burk ; [facility], [facility] Tamsulosin HCl 0.4 MG Oral Capsule 11/03/2024 Provid er: Maya Torres ORTHOPHOTO TECH/DRAFTSMAN Diagnosis: Last Documented On 5 3:49PM By Marifer Nuñez ; [facility], [facility] Amoxicillin 875 MG Oral Tablet 09/11/2024 Provider: Diagnosis: Last Documented On 9:50AM By Quentin Burk ; [facility] predniSONE 10 MG Oral Tablet 03/11/2021 Provider: Jarek Muñiz DO Diagnosis: Last Documented On 8:34AM By Deborah Lowery ; [facility], [facility] Amoxicillin 500 MG Oral Capsule 03/11/2021 Provider: Jarek Muñiz DO Diagnosis: Last Documented On 8:34AM By Deborah Lowery ; [facility] Cephalexin 500 MG Oral Capsule 03/10/2021 Provider: Diagnosis: Last Documented On 8:34AM By Deborah Lowery ; [facility] HYDROcodone-Acetaminophen 5-325 MG Oral Tablet Provider: Diagnosis: Last Documented On 8:34AM By Deborah Lowery ; [facility] Gabapentin 300 MG Oral Capsule 03/06/2021 Provider: Diagnosis: Last Documented On 8:34AM By Deborah Lowery ; [facility], [facility] LORazepam 1 MG Oral Tablet 03/06/2021 Provider: Diagnosis: Last Documented On 8:34AM By Deborah Lowery ; [facility], [facility] Esomeprazole Magnesium 40 MG Oral Capsule Delayed Rele ase 03/04/2021 Provider: Diagnosis: Last Documented On 8:34AM By Deborah Lowery ; [facility] Esomeprazole Magnesium 40 MG Oral Capsule Delayed Rele ase 03/04/2021 Provider: Diagnosis: Last Documented On 8:34AM By Deborah Lowery ; [facility] Fluticasone Propionate 50 MCG/ACT Nasal Suspension Provider: Diagnosis: Last Documented On 8:35AM By Deborah Lowery ; [facility], [facility] Past Medications on file Clindamycin HCl 300 MG Oral Capsule 01/07/2025 - 01/09/2025 Provider: Holden Steiner Diagnosis: take 2 pills, 3 three times a day Last Documented On 5 11:06AM By Quentin Burk ; [facility], [facility] Percocet 5-325 MG Oral Tablet 12/19/2024 - 01/03/2025 Provider: Issa Rodriguez MD Diagnosis: 1 po q 4h prn pain Last Documented On 8:40AM By Issa Rodriguez ; [facility] Losartan Potassium 100 MG Oral Tablet 12/05/2024 - Provider: Diagnosis: Last Documented On 3:50PM By Marifer Nuñez ; [facility] DULoxetine HCl 60 MG Oral Ca psule Delayed Release Particles 12/05/2024 - 03/05/2025 Provider: Diagnosis: Last Documented On 3:49PM By Marifer Nuñez ; [facility] Montelukast Sodium 10 MG Oral Tablet 12/05/2024 - 02/15 Provider: Diagnosis: Last Documented On 3:49PM By Marifer Nuñez ; [facility] Medications Administered Includes: Administered Medications from this encounter No Administered Medications Recorded Vital Signs Includes: Vital Signs from this encounter Vital Name 12/28/2024 09:51A Height (in) 69 Weight (lb) 250 Body Mass Index 36.9 Body Surface Area 2.3 Last Documented: On 12/28/2024 9:51AM ; [facility] Results Includes: Results discussed during this encounter [...] Documented On 5 9:50AM ; [facility] No recent change in diet 04/22/2022 Last Documented On 5 9:50AM ; [facility] Not a current smoker. 04/22/2022 Last Documented On 5 9:50AM ; [facility] Non-smoker 03/12/2021 Last Documented On 5 9:50AM ; [facility], [facility] No tobacco use 04/05/2019 Last Documented On 5 9:50AM ; [facility] Smoking status : Never smoker 04/05/2019 Last Documented On 5 9:50AM ; [facility] Caffeine use 04/05/2019 Last Documented On 5 9:50AM ; [facility] No recent change in diet 04/05/2019 Last Documented On 5 9:50AM ; [facility] Not a current smoker 04/05/2019 Last Documented On 5 9:50AM ; [facility] Not exercising regularly 04/05/2019 Last Documented On 5 9:50AM ; [facility] Not using alcohol 04/05/2019 Last Documented On 5 9:50AM ; [facility], [facility] Not using drugs 04/05/2019 Last Documented On 5 9:50AM ; [facility] Sex - Male 07/05/2025 Last Documented On 5 2:08PM ; [facility] Procedures and Surgical History Surgical History Last Updated History of hernia repair 04/05/2019 Last Documented On 5 9:50AM ; [facility] Medical History Includes: Medical History addressed during this encounter Description Last Updated No recent immunization for flu Last Documented On 5 9:50AM ; [facility] No recent immunization for pneumococcal pneumonia 03/12/2021 Last Documented On 5 9:50AM ; [facility] cataracs 04/05/2019 Last Documented On 5 9:50AM ; [facility] Arthritic joint problems 04/05/2019 Last Documented On 5 9:50AM ; [facility] Intermittent hypertension 04/05/2019 Last Documented On 5 9:50AM ; [facility] Family History Includes: Family History addressed during this encounter Description Last Updated Family history of cancer 04/05/2019 Last Documented On 5 9:50AM ; [facility] Family history of hypertension 9 Last Documented On 5 9:50AM ; [facility] Review of Systems Includes: Review of [...] Anxiety Last Documented On 5 9:50AM ; [facility] Physical Exam Includes: Physical Exam from this encounter Allergies Includes: Active Allergies No Known Allergies Care Research And Development Specialist Name (Identifier) Role/Relation Location/Telecom Last Documented By Domingo Billingsley MD ([id number]) Assigned practitioner (occupation) tel: Last Documented On 07/05/2025 2:08PM ; [facility] Olga Licea APRN ([id number]) [address] [place] [address], [id number] tel: Last Documented On 04/05/2019 9:06AM ; [facility] Encounters Encounter Provider Location (Healthcare Service Location) Date Check-In Time Check-Out Time Diagnosis Encounter Disposition Post Op Holden Modi PA-C [facility] CRAIG 2024 9:29AM 10:09AM Overweight Payer Includes: Active Insurance Policies Plan Name (Payer ID) Coverage Type Member ID Group # Subscriber (ID) Relationship Effective Dates 1 - Medicare Part B [facility] ([id number]) [id number] Stephane Mendieta Self (Checked on 06/03/2025) Last Documented On 9 7:57AM ; [facility] 2 - [employer] Medicare Supplemen t Insurance [id number] Stephane Mendieta Self 09/15/2017 - Unknown Last Documented On 9 8:40AM ; [facility], [facility] Clinical Notes Includes: Clinical Notes from this encounter * Progress note Date Encounter Last Documented by 12/28/2024 Post Op Last documented on 12/28/2024; 12:21 PM, Holden Modi PA-C; [facility] Active Problems & Conditions - History of [...] Care Team - Olga Licea APRN - REINFORCING STEEL MACHINE OPERATOR
--- OUTSIDE RECORDS SUMMARY | 2025-07-08 10:27 | XMS_ITS | Encounter Summary ---
Author Organization [employer] ([place], [place], [place], [place], [place]) Address [address] [place] [address] Care Team Providers Care Poultry Culler Name Role Phone Maya Torres Reji BELCHER Primary Care Provider [phone] Encounter Details Date Type Department Care Team (Late st Contact Info) Description 10/27/2020 Transcribed Document [facility] [place] [address] [place] [address] ProviderJean MD [address] [place] [address] Social History Tobacco Use Types [...] Sawant MD - 10/27/2020 6:36 PM CDT [facility] [place], [place] [id number] ISATU MENDIETA :1950 Visit Time:10/27/2020 Your Visit [...] to 3 days Where: [place] [place] [address] [facility] (1) Allergies No Known Medication Allergies [...] 24HR 55 mcg/ inh nasal spray) 1 [place](s) Nasal Two Times A Day The home [...] and 14.9 ) ANC #: 12 K/uL [place] Percent Man: 2 % -- Normal range [...] ) Urine Bilirubin Dipstick: Negative Urine Specific [place]: 1.006 -- Normal range between ( 1.005 [...] or lying down. General instructions ??? Take fyvx-dhn-oyenagt and prescription medicines only as told by [...] compression, and elevation. You may be given sebj-ouq-bsyjplz medicines for pain. ??? Contact a health [...] provider. Document Revised: 02/22/2019 Document Reviewed: 02/22/2019 [employer] Patient Education ?? 2020 [employer]. Emergency Awareness and Preventative Care STROKE is [...] Assistance with quitting is available by contacting 2-674-IBCK-NOW. This is a free resource providing counseling, [...] was given the opportunity to ask questions. Patient/Corporate Communications Intern Name: Patient/Corporate Communications Intern Signature: Relationship to Patient: Clinician/Hospital Corporate Communications Intern Signature: Please Provide a Telephone Number Where You Can Be Reached: Is it Permissible To Leave a Message? Date: documented in this encounter Plan of Treatment Not on file documented as of this encounter Visit Diagnoses Not on filedocumented in this encounter Care Teams Poultry Culler Relationship Specialty Start Date End Date Maya Torres, SIMI [address] [phone] PCP - General Family Medicine 08/27/22 documented as of this encounter
--- OUTSIDE RECORDS SUMMARY | 2025-07-08 10:27 | XMS_ITS | Encounter Summary ---
Author Organization [employer] ([place], [place], [place], [place], [place]) Address [address] [place] [address] Care Team Providers Care Food Service Employee Name Role Phone Maya Torres Reji BELCHER Primary Care Provider [phone]- [phone] Encounter Details Date Type Department Care Team (Late st Contact Info) Description 10/27/2020 Transcribed Document [facility] [address] [place] [address] ProviderJean MD [address] [place] [address] Social History Tobacco Use Types [...] on filedocumented in this encounter Care Teams Food Service Employee Relationship Specialty Start Date End Date Maya Torres, SOAKER HIDES [address] [phone] PCP - General Family Medicine 08/27/22 documented as of this encounter
--- OUTSIDE RECORDS SUMMARY | 2025-07-08 10:27 | XMS_ITS | Encounter Summary ---
Author Organization [employer] ([place], [place], [place], [place], [place]) Address [address] [place] [address] Care Team Providers Care Professor Of Counseling Name Role Phone Maya Torres SIMI Primary Care Provider [phone]- [phone] Encounter Details Date Type Department Care Team (Late st Contact Info) Description 10/18/2020 Transcribed Document [facility] Family Medicine [address] [place] [address] ProviderJean MD [address] [place], [place] [address] Social History Tobacco Use Types Packs/Day Years [...] Communication Barrier : None Primary Language : American Any Spiritual/Cultural Needs or Requests : No [...] in this encounter Care Teams Professor Of Counseling Relationship Specialty Start Date End Date Maya Torres, QUALITY CONTROL SYSTEMS MANAGER [address] [phone] PCP - General Family Medicine 08/27/22 documented as of this encounter
--- OUTSIDE RECORDS SUMMARY | 2025-07-08 10:27 | XMS_ITS | Encounter Summary ---
Author Organization [employer] ([place], [place], [place], [place], [place]) Address [address] [place] [address] Care Team Providers Care Wafer Line Worker Name Role Phone Maya Torres APRN Primary Care Provider [phone]- [phone] Encounter Details Date Type Department Care Team (Late st Contact Info) Description 10/27/2020 Transcribed Document [facility] [address] [place] [address] ProviderJean MD [address] [place] [address] Social History Tobacco Use Types [...] 10/27/2020 6:32 PM CDT Electronically signed by [facility] Conversion Transformer Shop Supervisor Cerner at 11/04/2022 3:28 PM CDT documented in this encounter Plan of Treatment Not on file documented as of this encounter Visit Diagnoses Not on filedocumented in this encounter Care Teams Wafer Line Worker Relationship Specialty Start Date End Date Maya Torres APRN [address] [facility] [address] [place] [address] PCP - General Family Medicine 08/27/22 documented as of this encounter
--- OUTSIDE RECORDS SUMMARY | 2025-07-08 10:27 | XMS_ITS | Encounter Summary ---
Author Organization [employer] ([place], [place], [place], [place], [place]) Address [address] [place] [address] Care Team Providers Care Groover And Turner Name Role Phone Maya Torres APRN Primary Care Provider [phone]- [phone] Encounter Details Date Type Department Care Team (Late st Contact Info) Description 10/18/2020 Transcribed Document [facility] [place] Family Medicine [address] [place] [address] ProviderJean MD [address] [place] [address] Social History Tobacco Use Types [...] 10/18/2020 9:20 PM CDT Electronically signed by [facility] Conversion Knowledge Management Consultant Cerner at 11/04/2022 3:18 PM CDT documented in this encounter Plan of Treatment Not on file documented as of this encounter Visit Diagnoses Not on filedocumented in this encounter Care Teams Groover And Turner Relationship Specialty Start Date End Date Maya Torres APRN [address] [facility] [address] [place] [address] PCP - General Family Medicine 08/27/22 documented as of this encounter
--- OUTSIDE RECORDS SUMMARY | 2025-07-08 10:27 | XMS_ITS | Clinical Summary ---
Author Organization [facility] , [facility] Address [address] [place] [address] Phone Care Team Providers Care Animal Husbandry Worker Name Role Phone Jose Cruz COLEMAN, Domingo Jett Unavailable + [phone] Olag Licea APRN Unavailable [phone] Reason for Visit and Chief Complaint The Chief Complaint is: back pain Problems Includes: Problems addressed during this encounter and other active Problems All Visits Onset Date Date of Diagnosis Resolved Date Provider Condition Status Soft Tissue Pain Hand 12/05/2024 12/05/2024 Flako Pulido PA-C Active Last Documented On 5 1:43AM ; [facility] History of Lower Back Pain M idline Right Side 04/12/2022 04/12/2022 Holden Modi PA-C Active Last Documented On 5 1:41AM ; [facility], [facility] Joint Pain Left Thumb 03/12/2021 03/12/2021 Charles Hernandez MD Active Last Documented On 5 1:40AM ; [facility], [facility] Joint Pain in Both Knees 04/05/2019 04/05/2019 Arlet Billingsley MD Active Last Documented On 5 1:39AM ; [facility] Plan of Treatment - Patient screened for future fall risk: documentation of any fall with injury in past year - Last Documented On 06/11/2025 1:20PM ; [facility], [facility] Fall Risk Assessment: This patient has [...] - Last Documented On 06/11/2025 1:20PM ; [facility], [facility] Future Appointments Date Time Location Provi tahira Post Op 07/19/2025 11:00AM [facility] MIAH Modi PA-C Last Documented On 5 10:29AM ; [facility], [facility] Instructions to patient Lose weight Last Documented On 8:58AM ; [facility], [facility] Assessments Includes: Assessments from this encounter Findings - Overweight - Last Documented On 06/11/2025 1:20PM ; [facility], [facility] Instructions Includes: Instructions from this encounter Instructions to patient Lose weight Last Documented On 8:58AM ; [facility], [facility] Medical Equipment - Implanted Devices Includes: Current Devices No Medical Equipment Recorded Medications Includes: Medications discussed during this encounter and other current Medications Current Medications (continue as prescribed) Percocet 5-325 MG Oral Tablet 07/03/2025 - 07/18/2025 Provider: Issa Rodriguez MD Diagnosis: 1 po q 4h prn pain Last Documented On 5 8:39AM By Issa Rodriguez ; [facility], [facility] Clindamycin HCl 300 MG Oral Capsule 01/07/2025 Provi tahira: Holden Modi PA-C Diagnosis: Last Documented On 5 10:36AM By Quentin Burk ; [facility], [facility] oxyCODONE-Acetaminophen 5-325 MG Oral Tablet Provider: Issa Rodriguez MD Diagnosis: Last Documented On 5 9:50AM By Quentin Burk ; [facility], [facility] Pantoprazole Sodium 40 MG Or al Tablet Delayed Release 12/09/2024 Provider: Maya Torres APRN Diagnosis: Last Documented On 5 9:50AM By Quentin Burk ; [facility], [facility] LORazepam 1 MG Oral Tablet 12/04/2024 Provider: M ichelle Stone PRINTED CIRCUIT BOARDS ROUTER Diagnosis: Last Documented On 5 9:50AM By Quentin Burk ; [facility], [facility] Doxycycline Hyclate 100 MG Oral Capsule 12/04/2024 Papito washingtonder: Diagnosis: Last Documented On 5 9:50AM By Quentin Burk ; [facility], [facility] sulfaSALAzine 500 MG Oral Tablet 11/27/2024 Provider : Maya Torres [employer]ED [employer] BOAR[employer] ROUTER Diagnosis: Last Documented On 5 9:50AM By Quentin Burk ; [facility], [facility] Albuterol Sulfate HFA 108 (9 0 Base) MCG/ACT Inhalation Aerosol Solution 11/07/2024 Provider: Maya anderson [employer]AR[employer] ROUTER Diagnosis: Last Documented On 5 9:50AM By Quentin Burk ; [facility], [facility] Finasteride 5 MG Oral Tablet 11/03/2024 Provider: Maya Torres [employer]AR[employer]OUTER Diagnosis: Last Documented On 5 9:50AM By Quentin Burk ; [facility], [facility] Tamsulosin HCl 0.4 MG Oral Capsule 11/03/2024 Provid er: Maya Torres [employer]AR[employer]TER Diagnosis: Last Documented On 5 3:49PM By Marifer Nuñez ; [facility], [facility] Amoxicillin 875 MG Oral Tablet 09/11/2024 Provider: Diagnosis: Last Documented On 5 9:50AM By Quentin Burk ; [facility], [facility] predniSONE 10 MG Oral Tablet 03/11/2021 Provider: Jarek Muñiz DO Diagnosis: Last Documented On 8:34AM By Deborah Lowery ; [facility], [facility] Amoxicillin 500 MG Oral Capsule 03/11/2021 Provider: Jarek Muñiz DO Diagnosis: Last Documented On 8:34AM By Deborah Lowery ; [facility], [facility] Cephalexin 500 MG Oral Capsule 03/10/2021 Provider: Diagnosis: Last Documented On 8:34AM By Deborah Lowery ; [facility], [facility] HYDROcodone-Acetaminophen 5-325 MG Oral Tablet Provider: Diagnosis: Last Documented On 8:34AM By Deborah Lowery ; [facility] Gabapentin 300 MG Oral Capsule 03/06/2021 Provider: Diagnosis: Last Documented On 8:34AM By Deborah Lowery ; [facility], [facility] LORazepam 1 MG Oral Tablet 03/06/2021 Provider: Diagnosis: Last Documented On 8:34AM By Deborah Lowery ; [facility], [facility] Esomeprazole Magnesium 40 MG Oral Capsule Delayed Rele ase 03/04/2021 Provider: Diagnosis: Last Documented On 8:34AM By Deborah Lowery ; [facility], [facility] Esomeprazole Magnesium 40 MG Oral Capsule Delayed Rele ase 03/04/2021 Provider: Diagnosis: Last Documented On 8:34AM By Deborah Lowery ; [facility], [facility] Fluticasone Propionate 50 MCG/ACT Nasal Suspension Provider: Diagnosis: Last Documented On 8:35AM By Deborah Lowery ; [facility], [facility] Past Medications on file Clindamycin HCl 300 MG Oral Capsule 01/07/2025 - 01/09/2025 Provider: Holden Steiner Diagnosis: take 2 pills, 3 three times a day Last Documented On 5 11:06AM By Quentin Burk ; [facility], [facility] Clindamycin HCl 300 MG Oral Capsule 12/28/2024 - 01/08/2025 Provider: Holden Steiner Diagnosis: three times a day Last Documented On 5 10:10AM By Quentin Burk ; [facility], [facility] Percocet 5-325 MG Oral Tablet 12/19/2024 - 01/03/2025 Provider: Issa Rodriguez MD Diagnosis: 1 po q 4h prn pain Last Documented On 5 8:40AM By Issa Rodriguez ; [facility], [facility] Losartan Potassium 100 MG Oral Tablet 12/05/2024 - Provider: Diagnosis: Last Documented On 5 3:50PM By Marifer Nuñez ; [facility], [facility] DULoxetine HCl 60 MG Oral Ca psule Delayed Release Particles 12/05/2024 - 03/05/2025 Provider: Diagnosis: Last Documented On 5 3:49PM By Marifer Nuñez ; [facility], [facility] Montelukast Sodium 10 MG Oral Tablet 12/05/2024 - 02/15 Provider: Diagnosis: Last Documented On 5 3:49PM By Marifer Nuñez ; [facility] Medications Administered Includes: Administered Medications from this encounter No Administered Medications Recorded Vital Signs Includes: Vital Signs from this encounter Vital Name 06/06/2025 09:02A Height (in) 69 Weight (lb) 252 Body Mass Index 37.2 Body Surface Area 2.3 Pain Level 5 Last Documented: On 06/06/2025 9:02AM ; [facility] Results Includes: Results discussed during this [...] Documented On 5 8:58AM ; [facility], [facility] No recent change in diet 04/22/2022 Last Documented On 5 8:58AM ; [facility] Not a current smoker. 04/22/2022 Last Documented On 5 8:58AM ; [facility] Non-smoker 03/12/2021 Last Documented On 5 8:58AM ; [facility] No tobacco use 04/05/2019 Last Documented On 5 8:58AM ; [facility] Smoking status : Never smoker 04/05/2019 Last Documented On 5 8:58AM ; [facility], [facility] Caffeine use 04/05/2019 Last Documented On 5 8:58AM ; [facility] No recent change in diet 04/05/2019 Last Documented On 5 8:58AM ; [facility] Not a current smoker 04/05/2019 Last Documented On 5 8:58AM ; [facility] Not exercising regularly 04/05/2019 Last Documented On 5 8:58AM ; [facility] Not using alcohol 04/05/2019 Last Documented On 5 8:58AM ; [facility] Not using drugs 04/05/2019 Last Documented On 5 8:58AM ; [facility] Sex - Male 07/05/2025 Last Documented On 5 2:08PM ; [facility] Procedures and Surgical History Includes: Procedures from this encounter Procedures Code Diagnosis Performing Provider Service Location Service Date X-RAY EXAM OF TRUNK SPINE [address] Encntr for adjust and mgmt of implanted nervous sys device, Presence of neurostimulator Issa Rodriguez MD [facility] 06/06/2025 Last Documented On 5 2:21PM ; [facility] Surgical History Last Updated History of hernia repair 04/05/2019 Last Documented On 5 8:58AM ; [facility] Medical History Includes: Medical History addressed during this encounter Description Last Updated No recent immunization for flu Last Documented On 5 8:58AM ; [facility] No recent immunization for pneumococcal pneumonia 03/12/2021 Last Documented On 5 8:58AM ; [facility] cataracs 04/05/2019 Last Documented On 5 8:58AM ; [facility] Arthritic joint problems 04/05/2019 Last Documented On 5 8:58AM ; [facility] Intermittent hypertension 04/05/2019 Last Documented On 5 8:58AM ; [facility] Family History Includes: Family History addressed during this encounter Description Last Updated Family history of cancer 04/05/2019 Last Documented On 5 8:58AM ; [facility] Family history of hypertension 9 Last Documented On 5 8:58AM ; [facility] Review of Systems Includes: Review [...] Anxiety Last Documented On 5 8:58AM ; [facility] Physical Exam Includes: Physical Exam from this encounter Allergies Includes: Active Allergies No Known Allergies Care Animal Husbandry Worker Name (Identifier) Role/Relation Location/Telecom Last Documented By Domingo Billingsley MD ([id number]) Assigned practitioner (occupation) tel:[phone] Last Documented On 07/05/2025 2:08PM ; [facility] Olga Cohen Vinayak BELCHER ([id number]) [address] [place] [address], [address] tel:[phone] Last Documented On 04/05/2019 9:06AM ; [facility] Encounters Encounter Provider Location (Healthcare Service Location) Date Check-In Time Check-Out Time Diagnosis Encounter Disposition Follow Up Issa Rodriguez MD [facility] 2024 8:53AM 10:11AM Overweight Payer Includes: Active Insurance Policies Plan Name (Payer ID) Coverage Type Member ID Group # Subscriber (ID) Relationship Effective Dates 1 - Medicare Part B [facility] ([id number]) [id number] Stephane Lozano Anam Self (Checked on 06/03/2025) Last Documented On 9 7:57AM ; [facility] 2 - [employer] Medicare Supplemen t Insurance [id number] Stephane Mendieta Self 09/15/2017 - Unknown Last Documented On 9 8:40AM ; [facility], [facility] Clinical Notes Includes: Clinical Notes from this encounter * Progress note Date Encounter Last Documented by 06/06/2025 Follow Up Last documented on 06/11/2025; 1:20 PM, Issa Rodriguez MD; [facility], [facility] Active Problems & Conditions - History [...] Care Team - Olga Licea APRN - OUTSIDE PLANT ENGINEER Health Reminders - Assess BMI satisfied 06/06/2025. - Assess Tobacco Use satisfied 04/05/2019. - Follow Up Plan BMI Management satisfied 06/06/2025.
--- OUTSIDE RECORDS SUMMARY | 2025-07-08 10:27 | XMS_ITS | Encounter Summary ---
Author Organization [employer] ([place], [place], [place], [place], [place]) Address [address] [place] [address] Care Team Providers Care Automobile Body Customizer Name Role Phone Maya Torres Reji BELCHER Primary Care Provider [phone] Encounter Details Date Type Department Care Team (Late st Contact Info) Description 10/18/2020 Transcribed Document [facility] [place] [facility] [place] [address] ProviderJean MD [address] [place] [address] Social History Tobacco Use Types Packs/Day Years [...] 10/18/2020 21:39 EDT Electronically signed by Ileana [facility] Conversion Slag Dumper Cerner at 11/04/2022 3:31 PM CDT documented in this encounter Plan of Treatment Not on file documented as of this encounter Visit Diagnoses Not on filedocumented in this encounter Care Teams Automobile Body Customizer Relationship Specialty Start Date End Date Maya Torres, DECORATING EQUIPMENT SETTER [address] [phone] PCP - General Family Medicine 08/27/22 documented as of this encounter
--- OUTSIDE RECORDS SUMMARY | 2025-07-08 10:27 | XMS_ITS | Clinical Summary ---
Author Organization [employer] ([place], [place], [place], [place], [place]) Address [address] [place] [address] Care Team Providers Care Clinical Dietetic Technician Name Role Phone Maya Torres APRN Primary Care Provider [phone] Allergies No known active allergies Medications traZODone [...] Date Jan rded Speak language other than Kinyarwanda at home Not on file 08/04/2023 Want [...] 04/24/2019, 2017 Insurance MEDICARE PART A B [facility] Care Teams Clinical Dietetic Technician Relationship Specialty Start Date End Date Maya Torres, ENVIRONMENTAL PROGRAMS MANAGER [address] [phone] PCP - General Family Medicine 08/27/22
--- OUTSIDE RECORDS SUMMARY | 2025-07-08 10:27 | XMS_ITS | Encounter Summary ---
Author Organization [employer] ([place], [place], [place], [place]) Address [address] [place] [address] Care Team Providers Care Carbon Accountant Name Role Phone Maya Torres APRN Primary Care Provider [phone]- [phone] Encounter Details Date Type Department Care Team (Late st Contact Info) Description 10/30/2020 Transcribed Document [facility] [place] Family Medicine [facility] [place] [address] ProviderJean MD [address] [place] [address] Social History Tobacco Use Types [...] on filedocumented in this encounter Care Teams Carbon Accountant Relationship Specialty Start Date End Date Maya Torres APRN [address] [facility] [address] [place] [address] PCP - General Family Medicine 08/27/22 documented as of this encounter
--- OUTSIDE RECORDS SUMMARY | 2025-07-08 10:27 | XMS_ITS | Encounter Summary ---
Author Organization [employer] ([place], [place], [place], [place], [place]) Address [address] [place] [address] Care Team Providers Care Sales Engagement Manager Name Role Phone Maya Torres Reji BELCHER Primary Care Provider [phone]- [phone] Encounter Details Date Type Department Care Team (Late st Contact Info) Description 10/27/2020 Transcribed Document [facility] [place] [address] [place] [address] ProviderJean MD [address] [place] [address] Social History Tobacco Use Types [...] on filedocumented in this encounter Care Teams Sales Engagement Manager Relationship Specialty Start Date End Date Maya Torres, BOND ANALYST [address] [phone] PCP - General Family Medicine 08/27/22 documented as of this encounter
--- OUTSIDE RECORDS SUMMARY | 2025-07-08 10:27 | XMS_ITS | Encounter Summary ---
Author Organization [employer] ([place], [place], [place], [place], [place]) Address [address] [place] [address] Care Team Providers Care Hat Body Sorter Name Role Phone Maya Torres Reji BELCHER Primary Care Provider [phone]- [phone] Encounter Details Date Type Department Care Team (Late st Contact Info) Description 10/27/2020 Transcribed Document [facility] [place] [facility] [place] [address] ProviderJean MD [address] [place] [address] Social History Tobacco Use Types [...] on filedocumented in this encounter Care Teams Hat Body Sorter Relationship Specialty Start Date End Date Maya Torres, ANTHROPOLOGY PROFESSOR [address] [phone] PCP - General Family Medicine 08/27/22 documented as of this encounter
--- OUTSIDE RECORDS SUMMARY | 2025-07-08 10:27 | XMS_ITS | Encounter Summary ---
Author Organization [employer] ([place], [place], [place], [place], [place]) Address [address] [place] [address] Care Team Providers Care Fleet Sales Manager Name Role Phone Maya Torres Reji BELCHER Primary Care Provider [phone]- [phone] Encounter Details Date Type Department Care Team (Late st Contact Info) Description 06/16/2018 Transcribed Document [facility] [place] [facility] [place] [address] ProviderJean MD [address] [place], [place] [id number] Social History Tobacco Use Types Packs/Day Years Used Date Smoking Tobacco: Never Assessed Sex and Gender Information Value Date Recorded Sex Assigned at Not on file Legal Sex Male 5:19 PM CDT Gender Identity Not on file Sexual Orientation Not on file documented as of this encounter Miscellaneous Notes * Cerner Conversion Note - Jean Sawant MD - 06/16/2018 8:43 AM ELECTRICIAN MAINTENANCE Patient: ISATU MENDIETA Age: 67 Years Sex: [...] 84 CXR- NAD Electronically signed by Ileana, [facility] Conversion Broadcast Operations Director Cerner at 11/04/2022 3:24 PM CDT documented in this encounter Plan of Treatment Not on file documented as of this encounter Visit Diagnoses Not on filedocumented in this encounter Care Teams Fleet Sales Manager Relationship Specialty Start Date End Date Maya Torres, RN ACLS [address] [phone] PCP - General Family Medicine 08/27/22 documented as of this encounter
[2025-07-08 10:28] VITALS: BP 158/81; PULSE 80; RESP 16; TEMP 36.7; O2SAT 98; BMI 38.0
--- OUTSIDE RECORDS SUMMARY | 2025-07-08 10:28 | XMS_ITS | Clinical Summary ---
Author Organization [facility] , [facility] Address [address] [place] [address] Phone Care Team Providers Care Cardiology Nurse Practitioner Name Role Phone Jose Cruz COLEMAN, Domingo Jett Unavailable [phone] Olga Licea APRN Unavailable [phone] Reason for Visit and Chief Complaint [Patient Encounter] Problems Includes: Problems addressed during this encounter and other active Problems All Visits Onset Date Date of Diagnosis Resolved Date Provider Condition Status Soft Tissue Pain Hand 12/05/2024 12/05/2024 Flako Pulido PA-C Active Last Documented On 5 1:43AM ; [facility], [facility] History of Lower Back Pain M idline Right Side 04/12/2022 04/12/2022 Holden Modi PA-C Active Last Documented On 5 1:41AM ; [facility], [facility] Joint Pain Left Thumb 03/12/2021 03/12/2021 Charles Hernandez MD Active Last Documented On 5 1:40AM ; [facility], [facility] Joint Pain in Both Knees 04/05/2019 04/05/2019 Arlet Billingsley MD Active Last Documented On 5 1:39AM ; [facility], [facility] Plan of Treatment Future Appointments Date Time Location Provi tahira Post Op 07/19/2025 11:00AM [facility] [place] Holden Modi PA-C Last Documented On 5 10:29AM ; [facility], [facility] Assessments Includes: Assessments from this encounter [...] 4h prn pain Pharmacy: GERARDO SANTOS [facility][id number] - [address] , [facility], [id number] - Last Documented On 8:39AM By Issa Rodriguez ; [facility], [facility] Current Medications (continue as prescribed) Clindamycin HCl 300 MG Oral Capsule 01/07/2025 Provi tahira: Holden Modi PA-C Diagnosis: Last Documented On 10:36AM By Quentin Burk ; [facility], [facility] oxyCODONE-Acetaminophen 5-325 MG Oral Tablet Provider: Issa Rodriguez MD Diagnosis: Last Documented On 9:50AM By Quentin Burk ; [facility], [facility] Pantoprazole Sodium 40 MG Or al Tablet Delayed Release 12/09/2024 Provider: Maya Torres TITLE INVESTIGATOR Diagnosis: Last Documented On 9:50AM By Quentin Burk ; [facility], [facility] LORazepam 1 MG Oral Tablet 12/04/2024 Provider: Nancy Torres TITLE INVESTIGATOR Diagnosis: Last Documented On 9:50AM By Quentin Burk ; [facility], [facility] Doxycycline Hyclate 100 MG Oral Capsule 12/04/2024 P rosoniader: Diagnosis: Last Documented On 9:50AM By Quentin Burk ; [facility], [facility] sulfaSALAzine 500 MG Oral Tablet 11/27/2024 Provider : Maya Torres TITLE INVESTIGATOR Diagnosis: Last Documented On 9:50AM By Quentin Burk ; [facility], [facility] Albuterol Sulfate HFA 108 (9 0 Base) MCG/ACT Inhalation Aerosol Solution 11/07/2024 Provider: Maya anderson TITLE INVESTIGATOR Diagnosis: Last Documented On 06/13/202 5 9:50AM By Quentin Burk ; [facility] Finasteride 5 MG Oral Tablet 11/03/2024 Provider: Maya Torres APRN Diagnosis: Last Documented On 5 9:50AM By Quentin Burk ; [facility] Tamsulosin HCl 0.4 MG Oral Capsule 11/03/2024 Provid er: Maya Torres APRN Diagnosis: Last Documented On 5 3:49PM By Marifer Nuñez ; [facility] Amoxicillin 875 MG Oral Tablet 09/11/2024 Provider: Diagnosis: Last Documented On 5 9:50AM By Quentin Burk ; [facility] predniSONE 10 MG Oral Tablet 03/11/2021 Provider: Jarek Muñiz DO Diagnosis: Last Documented On 8:34AM By Deborah Lowery ; [facility] Amoxicillin 500 MG Oral Capsule 03/11/2021 Provider: Jarek Muñiz DO Diagnosis: Last Documented On 8:34AM By Deborah Lowery ; [facility] Cephalexin 500 MG Oral Capsule 03/10/2021 Provider: Diagnosis: Last Documented On 8:34AM By Deborah Lowery ; [facility] HYDROcodone-Acetaminophen 5-325 MG Oral Tablet 021 Provider: Diagnosis: Last Documented On 8:34AM By Deborah Lowery ; [facility] Gabapentin 300 MG Oral Capsule 03/06/2021 Provider: Diagnosis: Last Documented On 8:34AM By Deborah Lowery ; [facility] LORazepam 1 MG Oral Tablet 03/06/2021 Provider: Diagnosis: Last Documented On 8:34AM By Deborah Lowery ; [facility] Esomeprazole Magnesium 40 MG Oral Capsule Delayed Rele ase 03/04/2021 Provider: Diagnosis: Last Documented On 8:34AM By Deborah Lowery ; [facility] Esomeprazole Magnesium 40 MG Oral Capsule Delayed Rele ase 03/04/2021 Provider: Diagnosis: Last Documented On 8:34AM By Deborah Lowery ; [facility] Fluticasone Propionate 50 MCG/ACT Nasal Suspension Provider: Diagnosis: Last Documented On 8:35AM By Deborah Lowery ; [facility] Medications Administered Includes: Administered Medications from this encounter No Administered Medications Recorded Results Includes: Results discussed during this encounter No Results Recorded For Specified Dates History of Present Illness Includes: History of Present Illness from this encounter No History of Present Illness Recorded Social History Description Last Updated Sex - Male 07/05/2025 Last Documented On 5 2:08PM ; [facility], [facility] Smoking Status Unknown Medical History Includes: [...] Includes: Active Allergies No Known Allergies Care Cardiology Nurse Practitioner Name (Identifier) Role/Relation Location/Telecom Last Documented By Domingo Billingsley MD ([id number]) Assigned practitioner (occupation) tel:[phone] Last Documented On 07/05/2025 2:08PM ; [facility] Olga Vicki Licea APRN ([id number]) [address] [place] [address], [facility], [address] tel:[phone] Last Documented On 04/05/2019 9:06AM ; [facility] Encounters Encounter Provider Location (Healthcare Service Location) Date Check-In Time Check-Out Time Diagnosis Encounter Disposition [Patient Encounter] Issa Rodriguez MD 2024 8:31AM 11:59PM Payer Includes: Active Insurance Policies Plan Name (Payer ID) Coverage Type Member ID Group # Subscriber (ID) Relationship Effective Dates 1 - Medicare Part B [facility] ([id number]) [id number] Stephane Mendieta Self (Checked on 06/03/2025) Last Documented On 9 7:57AM ; [facility] Insurance [id number] Stephane Marta [facility] Self 09/15/2017 - Unknown Last Documented On 9 8:40AM ; [facility], [facility]
--- OUTSIDE RECORDS SUMMARY | 2025-07-08 10:28 | XMS_ITS | Encounter Summary ---
Author Organization [employer] ([place], [place], [place], [place], [place]) Address [address] [place] [address] Care Team Providers Care Ceramic Artist Name Role Phone Maya Torres Reji BELCHER Primary Care Provider [phone] Encounter Details Date Type Department Care Team (Late st Contact Info) Description 10/18/2020 Transcribed Document [facility] Family Medicine [address] [place] [address] ProviderJean MD [address] [place] [address] Social History Tobacco Use Types [...] : Low risk (0) [place] Interventions : [place] precautions for safety used Dee Ocampo, HOLA - 10/18/2020 19:41 EDT Electronically signed by Ileana [facility] Conversion [employer] Developer Cerner at 11/04/2022 3:34 PM CDT documented in this encounter Plan of Treatment Not on file documented as of this encounter Visit Diagnoses Not on filedocumented in this encounter Care Teams Ceramic Artist Relationship Specialty Start Date End Date Maya Torres, SCREEN CUTTER AND TRIMMER [address] [id number] PCP - General Family Medicine 08/27/22 documented as of this encounter
--- OUTSIDE RECORDS SUMMARY | 2025-07-08 10:28 | XMS_ITS | Clinical Summary ---
Author Organization [facility] , [facility] Address [address] [place] [address] Phone Care Team Providers Care Mds Coordinator Name Role Phone Jose Cruz COLEMAN, Domingo Jett Unavailable [phone] Olga Licea APRN Unavailable [phone] Reason for Visit and Chief Complaint The Chief Complaint is: back pain Problems Includes: Problems addressed during this encounter and other active Problems All Visits Onset Date Date of Diagnosis Resolved Date Provider Condition Status Soft Tissue Pain Hand 12/05/2024 12/05/2024 Flako Pulido PA-C Active Last Documented On 5 1:43AM ; [facility], [facility] History of Lower Back Pain M idline Right Side 04/12/2022 04/12/2022 Holden Modi PA-C Active Last Documented On 5 1:41AM ; [facility], [facility] Joint Pain Left Thumb 03/12/2021 03/12/2021 Charles Hernandez MD Active Last Documented On 5 1:40AM ; [facility], [facility] Joint Pain in Both Knees 04/05/2019 04/05/2019 Arlet Billingsley MD Active Last Documented On 5 1:39AM ; [facility], [facility] Plan of Treatment Patient screened for future fall risk: documentation of any fall with injury in past year. - Last Documented On 01/14/2025 10:41AM ; [facility], [facility] Patient was seen by myself Holden Modi [...] - Last Documented On 01/14/2025 10:41AM ; [facility], [facility] Pending Tests Order Diagnosis Results Due Ordering P rovider Radiology - MRI MRI Lumbar Spine 04/26/22 Chas Modi PA-C Last Documented On 2 1:06PM ; [facility], [facility] Future Appointments Date Time Location Provi tahira Post Op 07/19/2025 11:00AM [facility] Holden Modi PA-C Last Documented On 5 10:29AM ; [facility] Instructions to patient Lose weight Last Documented On 10:36AM ; [facility] Assessments Includes: Assessments from this encounter Findings - Overweight - Last Documented On 01/14/2025 10:41AM ; [facility] 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 December 19, 2024 - Last Documented On 01/14/2025 10:41AM ; [facility] Instructions Includes: Instructions from this encounter Instructions to patient Lose weight Last Documented On 10:36AM ; [facility] Medical Equipment - Implanted Devices Includes: Current Devices No Medical Equipment Recorded Medications Includes: Medications discussed during this encounter and other current Medications Current Medications (continue as prescribed) Percocet 5-325 MG Oral Tablet 07/03/2025 - 07/18/2025 Provider: Issa Rodriguez MD Diagnosis: 1 po q 4h prn pain Last Documented On 5 8:39AM By Issa Rodriguez ; [facility] Clindamycin HCl 300 MG Oral Capsule 01/07/2025 Provi tahira: Holden Modi PA-C Diagnosis: Last Documented On 5 10:36AM By Quentin Wm ; [facility] oxyCODONE-Acetaminophen 5-325 MG Oral Tablet Provider: Issa Rodriguez MD Diagnosis: Last Documented On 5 9:50AM By Quentin Burk ; [facility], [facility] Pantoprazole Sodium 40 MG Or al Tablet Delayed Release 12/09/2024 Provider: Maya Torres SEED CLEANER Diagnosis: Last Documented On 5 9:50AM By Quentin Burk ; [facility], [facility] LORazepam 1 MG Oral Tablet 12/04/2024 Provider: Nancy Torres SEED CLEANER Diagnosis: Last Documented On 5 9:50AM By Quentin Burk ; [facility], [facility] Doxycycline Hyclate 100 MG Oral Capsule 12/04/2024 P rosoniader: Diagnosis: Last Documented On 5 9:50AM By Quentin Burk ; [facility], [facility] sulfaSALAzine 500 MG Oral Tablet 11/27/2024 Provider : Maya Torres SEED CLEANER Diagnosis: Last Documented On 5 9:50AM By Quentin Burk ; [facility], [facility] Albuterol Sulfate HFA 108 (9 0 Base) MCG/ACT Inhalation Aerosol Solution 11/07/2024 Provider: Maya anderson SEED CLEANER Diagnosis: Last Documented On 5 9:50AM By Quentin Burk ; [facility], [facility] Finasteride 5 MG Oral Tablet 11/03/2024 Provider: Maya Torres SEED CLEANER Diagnosis: Last Documented On 5 9:50AM By Quentin Burk ; [facility], [facility] Tamsulosin HCl 0.4 MG Oral Capsule 11/03/2024 Provid er: Maya Torres SEED CLEANER Diagnosis: Last Documented On 5 3:49PM By Marifer Nuñez ; [facility], [facility] Amoxicillin 875 MG Oral Tablet 09/11/2024 Provider: Diagnosis: Last Documented On 5 9:50AM By Quentin Burk ; [facility], [facility] predniSONE 10 MG Oral Tablet 03/11/2021 Provider: Jarek Muñiz DO Diagnosis: Last Documented On 1 8:34AM By Deborah Lowery ; [facility], [facility] Amoxicillin 500 MG Oral Capsule 03/11/2021 Provider: Jarek Muñiz DO Diagnosis: Last Documented On 1 8:34AM By Deborah Lowery ; [facility], [facility] Cephalexin 500 MG Oral Capsule 03/10/2021 Provider: Diagnosis: Last Documented On 8:34AM By Deborah Lowery ; [facility], [facility] HYDROcodone-Acetaminophen 5-325 MG Oral Tablet 021 Provider: Diagnosis: Last Documented On 8:34AM By Deborah Lowery ; [facility], [facility] Gabapentin 300 MG Oral Capsule 03/06/2021 Provider: Diagnosis: Last Documented On 8:34AM By Deborah Lowery ; [facility], [facility] LORazepam 1 MG Oral Tablet 03/06/2021 Provider: Diagnosis: Last Documented On 8:34AM By Deborah Lowery ; [facility], [facility] Esomeprazole Magnesium 40 MG Oral Capsule Delayed Rele ase 03/04/2021 Provider: Diagnosis: Last Documented On 8:34AM By Deborah Lowery ; [facility], [facility] Esomeprazole Magnesium 40 MG Oral Capsule Delayed Rele ase 03/04/2021 Provider: Diagnosis: Last Documented On 8:34AM By Deborah Lowery ; [facility], [facility] Fluticasone Propionate 50 MCG/ACT Nasal Suspension Provider: Diagnosis: Last Documented On 8:35AM By Deborah Lowery ; [facility], [facility] Past Medications on file Clindamycin HCl 300 MG Oral Capsule 01/07/2025 - 01/09/2025 Provider: Holden Steiner Diagnosis: take 2 pills, 3 three times a day Last Documented On 5 11:06AM By Quentin Burk ; [facility], [facility] Clindamycin HCl 300 MG Oral Capsule 12/28/2024 - 01/08/2025 Provider: Holden Steiner Diagnosis: three times a day Last Documented On 5 10:10AM By Quentin Burk ; [facility], [facility] Percocet 5-325 MG Oral Tablet 12/19/2024 - 01/03/2025 Provider: Issa Rodriguez MD Diagnosis: 1 po q 4h prn pain Last Documented On 5 8:40AM By Issa Rodriguez ; [facility], [facility] Losartan Potassium 100 MG Oral Tablet 12/05/2024 - Provider: Diagnosis: Last Documented On 5 3:50PM By Mariefr Nuñez ; [facility] DULoxetine HCl 60 MG Oral Ca psule Delayed Release Particles 12/05/2024 - 03/05/2025 Provider: Diagnosis: Last Documented On 5 3:49PM By Marifer DANGELO [facility] Montelukast Sodium 10 MG Oral Tablet 12/05/2024 - 02/15 Provider: Diagnosis: Last Documented On 5 3:49PM By Marifer Nuñez ; [facility] Medications Administered Includes: Administered Medications from this encounter No Administered Medications Recorded Vital Signs Includes: Vital Signs from this encounter Vital Name 01/14/2025 10:36A Height (in) 69 Weight (lb) 250 Body Mass Index 36.9 Body Surface Area 2.3 Pain Level 3 Last Documented: On 01/14/2025 10:36A M ; [facility] Results Includes: Results discussed during this encounter [...] Documented On 5 10:36AM ; [facility], [facility] No recent change in diet 04/22/2022 Last Documented On 5 10:36AM ; [facility], [facility] Not a current smoker. 04/22/2022 Last Documented On 5 10:36AM ; [facility], [facility] Non-smoker 03/12/2021 Last Documented On 5 10:36AM ; [facility], [facility] No tobacco use 04/05/2019 Last Documented On 5 10:36AM ; [facility] Smoking status : Never smoker 04/05/2019 Last Documented On 5 10:36AM ; [facility], [facility] Caffeine use 04/05/2019 Last Documented On 5 10:36AM ; [facility], [facility] No recent change in diet 04/05/2019 Last Documented On 5 10:36AM ; [facility], [facility] Not a current smoker 04/05/2019 Last Documented On 5 10:36AM ; [facility], [facility] Not exercising regularly 04/05/2019 Last Documented On 5 10:36AM ; [facility], [facility] Not using alcohol 04/05/2019 Last Documented On 5 10:36AM ; [facility], [facility] Not using drugs 04/05/2019 Last Documented On 5 10:36AM ; [facility], [facility] Sex - Male 07/05/2025 Last Documented On 5 2:08PM ; [facility], [facility] Procedures and Surgical History Surgical History Last Updated History of hernia repair 04/05/2019 Last Documented On 5 10:36AM ; [facility], [facility] Medical History Includes: Medical History addressed during this encounter Description Last Updated No recent immunization for flu Last Documented On 5 10:36AM ; [facility], [facility] No recent immunization for pneumococcal pneumonia 03/12/2021 Last Documented On 5 10:36AM ; [facility], [facility] cataracs 04/05/2019 Last Documented On 5 10:36AM ; [facility], [facility] Arthritic joint problems 04/05/2019 Last Documented On 5 10:36AM ; [facility], [facility] Intermittent hypertension 04/05/2019 Last Documented On 5 10:36AM ; [facility], [facility] Family History Includes: Family History addressed during this encounter Description Last Updated Family history of cancer 04/05/2019 Last Documented On 5 10:36AM ; [facility], [facility] Family history of hypertension 9 Last Documented On 5 10:36AM ; [facility], [facility] Review of Systems Includes: Review of Systems [...] Description Anxiety Last Documented On 10:36AM ; [facility] Physical Exam Includes: Physical Exam from this encounter Allergies Includes: Active Allergies No Known Allergies Care Mds Coordinator Name (Identifier) Role/Relation Location/Telecom Last Documented By Domingo Billingsley MD ([id number]) Assigned practitioner (occupation) tel:[phone] Last Documented On 07/05/2025 2:08PM ; [facility] Olga Vicki Licea APRN ([id number]) [address] [place] [address], [address] tel:[phone] Last Documented On 04/05/2019 9:06AM ; [facility] Encounters Encounter Provider Location (Healthcare Service Location) Date Check-In Time Check-Out Time Diagnosis Encounter Disposition Post Op [facility] 10:40AM Overweight Payer Includes: Active Insurance Policies Plan Name (Payer ID) Coverage Type Member ID Group # Subscriber (ID) Relationship Effective Dates 1 - Medicare Part B [facility] ([id number]) [id number] Stephane Mendieta Self (Checked on 06/03/2025) Last Documented On 9 7:57AM ; [facility], [facility] 2 - [employer] Medicare Supplemen t Insurance [id number] Stephane Mendieta Self 09/15/2017 - Unknown Last Documented On 9 8:40AM ; [facility], [facility] Clinical Notes Includes: Clinical Notes from this encounter * Progress note Date Encounter Last Documented by 01/14/2025 Post Op Last documented on 01/14/2025; 10:41 AM, Holden Modi PA-C; [facility], [facility] Active Problems & Conditions - History of [...] Replacement spinal cord stimulator battery with the padCertify Data Systemss system. December 19, 2024 Previous Tests Available [...] Care Team - Olga Licea APRN - WASTEWATER TREATMENT OPERATOR
--- OUTSIDE RECORDS SUMMARY | 2025-07-08 10:28 | XMS_ITS | Patient Health Record ---
Author Organization [facility] Address [address] [facility] [address] [place] [address] Care Team Providers Care Program Scheduler Name Role Phone Jerome Morrissey II Unavailable [phone] Michael COLEMAN -Issa Barry MD Unavailable [phone] Allergies No Known Allergies Reason For Referral [...] Status Risk Notes Problem Chronic pain syndrome (347953888) Chronic pain syndrome (G89.4) Active confirmed Problem Complex regional pain syndrome of lower limb (disorder) (878250357) Complex regional pain syndrome I of unspecified lower limb (G90.529) Active confirmed Problem Cervical spondylosis without myelopathy (946967487) Other spondylosis with radiculopathy, cervical region (M47.22) Active confirmed Problem Cervical spondylosis without myelopathy (829079873) Spondylosis without myelopathy or radiculopathy, cervical region (M47.812) Active confirmed Problem Lumbosacral spondylosis without myelopathy (90582336) Spondylosis without myelopathy or radiculopathy, lumbar region (M47.816) Active confirmed Problem Cervicalgia (13970907) Cervicalgia (M54.2) Active confirmed Problem Post-laminectom y syndrome (58446618) Postlaminectomy syndrome, not elsewhere classified (M96.1) Active confirmed Problem Long-term current use of drug therapy (964455253) Other watermaster (current) drug therapy (Z79.899) Active confirmed Problem Lumbar spondylosis (312501540) lumbar spondylosis (M47.816) Active confirmed Vital Signs Heart Rate 80 /min 10/19/2024 Blood pressure diastolic 75 mm Hg 10/19/2024 Height 69 in 10/19/2024 Blood pressure systolic 158 mm Hg 10/19/2024 Weight 250 lbs 10/19/2024 BMI 36.91 kg/m2 10/19/2024 Encounters Encounter Location Date Provider Diagnosis [facility] [address] [facility] [address] [place] [address] 10/19/2024 Jerome Morrissey Other mcc (current) drug therapy Z79.899 ; Spondylosis without [...] once again for the long-term. 10/19/2024 Other watermaster (current) drug therapy (ICD-10 - Z79.899) 04/02/2024 1. Discontinue [place] 5/325mg QD PRN 2. FU PRn Mr. [...] Urine Test ANALYZER 09/23/2022 Urine Test ANALYZER 10/15/2022 Urine Test ANALYZER 01/03/2024 Urine Test ANALYZER 10/19/2024 Insurance Providers Payer Name Payer Address Payer Phone Subscriber Number Group Number Insured Name Patient Relationship to Insured Coverage Start Date Coverage End [place] [address] [place] [address] [id number] Stephane Mendieta Self - patient is the insured 8 [employer] Medicare Supplement [address] [place] [phone] [id number] Stephane Mendieta Self - patient is the insured 8 Medical (General) History Medical History History ICD Code anxiety / Managed by PCP Surgical History Surgery Date(Month/Year) Back surgery / Dr. Rodriguez 09/2019 right knee replacement
--- OUTSIDE RECORDS SUMMARY | 2025-07-08 10:28 | XMS_ITS | Encounter Summary ---
Author Organization [employer] ([place], [place], [place], [place], [place]) Address [address] [place] [address] Care Team Providers Care Chain Maker Machine Name Role Phone Maya Torres Reji BELCHER Primary Care Provider [phone]- [phone] Encounter Details Date Type Department Care Team (Late st Contact Info) Description 10/18/2020 Transcribed Document [facility] [place] [facility] [place] [address] ProviderJean MD [address] [place] [address] Social History Tobacco Use Types [...] Sawant MD - 10/18/2020 9:38 PM CDT [facility] [place], [place] [id number] ISATU MENDIETA :1950 Visit Time:10/18/2020 Your Visit [...] to ED if symptoms worsen. Where: [address] [facility] [address] [place] [address] Business (1) Follow Up with JACKIE LEONARD When Within 2 to 3 days Allergies No Known Medication Allergies Immunizations This Visit No Immunizations Found Medications What How Much When Instructions Next Dose codeine-guaifenesin (codeine-guaifenesin 6.3 mg-100 mg/ 5 mL oral liquid) 7.5 Milliliter(s) Oral Every 6 Hours as needed for for cough Pickup at [facility] dextromethorphan-guaifenesin (dextromethorphan-guaifenesin 5 mg-100 [...] 24HR 55 mcg/ inh nasal spray) 1 Leggett(s) Nasal Two Times A Day Pharmacy Information [facility]: [address] [place], [place] [id number] [phone] The home medications listed are only as [...] safe for you. General instructions ??? Take edce-zwg-sdkhjvd and prescription medicines only as told by [...] Reviewed: 01/04/2019 Vince Patient Education ?? 2020 Targeter App. Emergency Awareness and Preventative Care STROKE is [...] Assistance with quitting is available by contacting 6-563-ARRI-NOW. This is a free resource providing counseling, [...] was given the opportunity to ask questions. Patient/Call Center Assistant Name: Patient/Call Center Assistant Signature: Relationship to Patient: Clinician/Hospital Call Center Assistant Signature: Please Provide a Telephone Number Where You Can Be Reached: Is it Permissible To Leave a Message? Date: documented in this encounter Plan of Treatment Not on file documented as of this encounter Visit Diagnoses Not on filedocumented in this encounter Care Teams Chain Maker Machine Relationship Specialty Start Date End Date Maya Torres, SIMI [address] [id number] PCP - General Family Medicine 08/27/22 documented as of this encounter
--- OUTSIDE RECORDS SUMMARY | 2025-07-08 10:28 | XMS_ITS | Encounter Summary ---
Author Organization [employer] ([place], [place], [place], [place], [place]) Address [address] [place] [address] Care Team Providers Care Coding Compliance Auditor Name Role Phone Maya Torres Reji BELCHER Primary Care Provider [phone]- [phone] Encounter Details Date Type Department Care Team (Late st Contact Info) Description 10/18/2020 Transcribed Document [facility] [place] [address] ProviderJean MD [address] [place], [place] [id number] Social History Tobacco Use Types Packs/Day Years [...] On: 10/18/2020 19:09 EDT by SUSHMA MARQUEZ, MAT CLEANING MACHINE OPERATOR Triage Across the Room Chief Complaint : [...] : 3 - Urgent Tracking Group : [facility] SUSHMA MARQUEZ RN - 10/18/2020 [...] Problems(Active) At risk for sleep apnea (IMO :82553353 ) Name of Problem: At risk for sleep apnea ; Recorder: SYSTEM, SYSTEM; Confirmation: Confirmed ; Classification: Medical ; Code: [id number] ; Last Updated: 06/16/2018 8:18 EST ; Life Cycle Date: 06/16/2018 ; Life Cycle Status: Active ; Vocabulary: IMO Enlarged prostate (SNOMED CT :303071205 ) Name of Problem: Enlarged prostate ; Recorder: Shavonne Jimenez RN; Confirmation: Confirmed ; Classification: Medical ; Code: [id number] ; Contributor System: IndeedChart ; Last Updated: 06/16/2018 8:22 EST ; Life Cycle Date: 06/16/2018 ; Life Cycle Status: Active ; Vocabulary: SNOMED CT Hypertension (SNOMED CT :0271490605 ) Name of Problem: Hypertension ; Recorder: Shavonne Jimenez RN; Confirmation: Confirmed ; Classification: Medical ; Code: [id number] ; Contributor System: IndeedChart ; Last Updated: 06/16/2018 8:21 EST ; Life Cycle Date: 06/16/2018 ; Life Cycle Status: Active ; Vocabulary: SNOMED CT Seasonal allergies (SNOMED CT :3222680824 ) Name of Problem: Seasonal allergies ; Recorder: Shavonne Jimenez RN; Confirmation: Confirmed ; Classification: Medical ; Code: [id number] ; Contributor System: PowerChart ; Last Updated: 06/16/2018 8:22 EST ; Life Cycle Date: 06/16/2018 ; Life Cycle Status: Active ; Vocabulary: SNOMED CT Diagnoses(Active) Rib/trunk pain-swelling Date: 10/18/2020 ; Diagnosis Type: Reason For Visit ; Confirmation: Complaint of ; Clinical Dx: Rib/trunk pain-swelling ; Classification: Medical ; Clinical Service: Emergency medicine ; Code: PNED ; Probability: 0 ; Diagnosis Code: [id number] ED Height and Weight Height Source : Stated Height Entry Format : [place] Height, Feet : 5 ft(Converted to: 152 cm, 60 Inch) Height, Inches : 8 Inch(Converted to: 0 ft 8 Inch, 20.32 cm) Clinical Height : 172.72 cm Weight Source, ED : Critical estimated dosing weight Weight Entry Format : [place] Weight, Pounds : 240 lb Clinical Dosing Weight : 109.09 kg Body Surface Area (BSA) : 2.21 m2 Body Mass Index : 36.6 kg/m2 (HI) Cache Body Weight (IBW) : 67.45 kg SUSHMA MARQUEZ RN - 10/18/2020 19:09 EDT documented in this encounter Plan of Treatment Not on file documented as of this encounter Visit Diagnoses Not on filedocumented in this encounter Care Teams Coding Compliance Auditor Relationship Specialty Start Date End Date Maya Torres, PRODUCTION INSPECTOR [address] [phone] PCP - General Family Medicine 08/27/22 documented as of this encounter
--- OUTSIDE RECORDS SUMMARY | 2025-07-08 10:28 | XMS_ITS ---
Author Organization [facility] Address [address] [place] [address] Phone Care Team Providers Care Sexual Abuse Counsellor Name Role Phone Jose Cruz COLEMAN, Domingo Jett Unavailable [phone] Olga Licea APRN Unavailable [phone] Reason for Referral 11/29/2024 Encounter for Follow Up Date Recorded Target Due Date Referral Type Referring Prov ider Reason For Referral 11/29/2024 Issa Rodriguez MD See PCP for BP Last Documented On 5 3:07PM ; [facility] 11/29/2024 Issa Rodriguez MD referral to physician Last Documented On 5 3:07PM ; [facility] 04/22/2022 Encounter for Follow Up Date Recorded Target Due Date Referral Type Referring Prov ider Reason For Referral 04/22/2022 Issa Rodriguez MD See PCP for BP Last Documented On 2 10:14AM ; [facility] 05/02/2022 Issa Rodriguez MD referral to physician Last Documented On 2 10:49AM ; [facility] 04/12/2022 Encounter for Follow Up Date Recorded Target Due Date Referral Type Referring Prov ider Reason For Referral 04/12/2022 Holden Modi PA-C See PC P for BP Last Documented On 2 9:57AM ; [facility] 04/07/2021 Encounter for Follow Up [...] BP Last Documented On 1 8:43AM ; [facility] Problems Includes: Active, inactive, and resolved Problems All Visits Onset Date Date of Diagnosis Resolved Date Provider Condition Status Soft Tissue Pain Hand 12/05/2024 12/05/2024 Flako Pulido PA-C Active Last Documented On 5 1:43AM ; [facility] History of Lower Back Pain M idline Right Side 04/12/2022 04/12/2022 Holden Modi PA-C Active Last Documented On 5 1:41AM ; [facility] Joint Pain Left Thumb 03/12/2021 03/12/2021 Charles Hernandez MD Active Last Documented On 5 1:40AM ; [facility] Joint Pain in Both Knees 04/05/2019 04/05/2019 [facility] zachary Billingsley MD Active Last Documented On 5 1:39AM ; [facility] Plan of Treatment Findings Encounter Date Patient screened for future fall risk: documentation of any fall with injury in past year Follow Up with Issa Rodriguez MD 06/06/2025 Last Documented On 5 8:58AM ; [facility] Patient screened for future fall risk: documentation of any fall with injury in past year Post Op with Holden Modi PA-C 01/14/2025 Last Documented On 5 10:36AM ; [facility] Patient screened for future fall risk: documentation of any fall with injury in past year Post Op with Holden Modi PA-C 01/07/2025 Last Documented On 5 10:49AM ; [facility] Patient screened for future fall risk: documentation of any fall with injury in past year Post Op with Holden Modi PA-C 12/28/2024 Last Documented On 5 9:50AM ; [facility] Patient screened for future fall risk: documentation of any fall with injury in past year IN HOUSE REFERRAL with Flako Pulido PA-C 12/05/2024 Last Documented On 5 2:27PM ; [facility] Pending Tests Order Diagnosis Results Due Ordering P rovider Radiology - MRI MRI Lumbar Spine 04/26/22 Chas Modi PA-C Last Documented On 2 1:06PM ; [facility] Future Appointments Date Time Location Provi tahira Post Op 07/19/2025 11:00AM [facility]OCK[place]IDGEIrais Modi PA-C Last Documented On 5 10:29AM ; [facility] Instructions to patient Lose weight Last Documented On 5 8:58AM ; [facility] Lose weight Last Documented On 5 10:36AM ; [facility] Lose weight Last Documented On 5 10:49AM ; [facility] Lose weight Last Documented On 5 9:50AM ; [facility] Lose weight Last Documented On 5 2:27PM ; [facility] Lose weight Last Documented On 5 3:07PM ; [facility] Lose weight Last Documented On 2 10:14AM ; [facility] Lose weight Last Documented On 2 9:57AM ; [facility] Lose weight Last Documented On 1 8:13AM ; [facility] Lose weight Last Documented On 1 8:43AM ; [facility] Instructions for patient SEE PCP FOR BP AND WT Last Documented On 0 11:13AM ; [facility] Instructions for patient Last Documented On 0 3:05PM ; [facility] Instructions for patient Last Documented On 0 1:32PM ; [facility] Instructions for patient [...] 12/28/2024 Last Documented On 5 9:50AM ; [facility] Overweight IN HOUSE [...] bp Last Documented On 0 1:48PM ; [facility] Instructions for patient to see pcp for bp Last Documented On 9 3:13PM ; [facility] Instructions for patient to see pcp for bp Last Documented On 9 2:58PM ; [facility] Instructions for patient to see pcp for bp Last Documented On 9 9:14AM ; [facility] Medical Equipment - Implanted Devices Includes: Current and historical Devices No Medical Equipment Recorded Medications Includes: Current and historical Medications Current Medications (continue as prescribed) Percocet 5-325 MG Oral Tablet 07/03/2025 - 07/18/2025 Provider: Issa Rodriguez MD Diagnosis: 1 po q 4h prn pain Last Documented On 5 8:39AM By Issa Rodriguez ; [facility] Clindamycin HCl 300 MG Oral Capsule 01/07/2025 Provi tahira: Holden Modi PA-C Diagnosis: Last Documented On 5 10:36AM By Quentin Burk ; [facility] oxyCODONE-Acetaminophen 5-325 MG Oral Tablet 5 Provider: Issa Rodriguez MD Diagnosis: Last Documented On 5 9:50AM By Quentin Burk ; [facility] Pantoprazole Sodium 40 MG Or al Tablet Delayed Release 12/09/2024 Provider: Maya Torres [employer] Diagnosis: Last Documented On 5 9:50AM By Quentin Burk ; [facility] LORazepam 1 MG Oral Tablet 12/04/2024 Provider: Nancy Torres [employer] Diagnosis: Last Documented On 5 9:50AM By Quentin Burk ; [facility] Doxycycline Hyclate 100 MG Oral Capsule 12/04/2024 Papito mccallum: Diagnosis: Last Documented On 5 9:50AM By Quentin Burk ; [facility] sulfaSALAzine 500 MG Oral Tablet 11/27/2024 Provider : Maya Torres [employer] Diagnosis: Last Documented On 5 9:50AM By Quentin Burk ; [facility] Albuterol Sulfate HFA 108 (9 0 Base) MCG/ACT Inhalation Aerosol Solution 11/07/2024 Provider: Maya anderson [employer] Diagnosis: Last Documented On 5 9:50AM By Quentin Burk ; [facility] Finasteride 5 MG Oral Tablet 11/03/2024 Provider: Maya Torres [employer] Diagnosis: Last Documented On 5 9:50AM By Quentin Burk ; [facility] Tamsulosin HCl 0.4 MG Oral Capsule 11/03/2024 Provid er: Maya Torres [employer] Diagnosis: Last Documented On 5 3:49PM By Marifer Nuñez ; [facility] Amoxicillin 875 MG Oral Tablet 09/11/2024 Provider: Diagnosis: Last Documented On 5 9:50AM By Quentin Burk ; [facility] predniSONE 10 MG Oral Tablet 03/11/2021 Provider: Jarek Muñiz DO Diagnosis: Last Documented On 8:34AM By Deborah Lowery ; [facility] Amoxicillin 500 MG Oral Capsule 03/11/2021 Provider: Jarek Muñiz DO Diagnosis: Last Documented On 8:34AM By Deborah Lowery ; [facility] Cephalexin 500 MG Oral Capsule 03/10/2021 Provider: Diagnosis: Last Documented On 8:34AM By Deborah Lowery ; [facility] HYDROcodone-Acetaminophen 5-325 MG Oral Tablet Provider: Diagnosis: Last Documented On 8:34AM By Deborah Lowery ; [facility] Gabapentin 300 MG Oral Capsule 03/06/2021 Provider: Diagnosis: Last Documented On 8:34AM By Deborah Lowery ; [facility] LORazepam 1 MG Oral Tablet 03/06/2021 Provider: Diagnosis: Last Documented On 1 8:34AM By Deborah Lowery ; [facility] Esomeprazole Magnesium 40 MG Oral Capsule Delayed Rele ase 03/04/2021 Provider: Diagnosis: Last Documented On 8:34AM By Deborah Lowery ; [facility] Esomeprazole Magnesium 40 MG Oral Capsule Delayed Rele ase 03/04/2021 Provider: Diagnosis: Last Documented On 1 8:34AM By Deborah Lowery ; [facility] Fluticasone Propionate 50 MCG/ACT Nasal Suspension Provider: Diagnosis: Last Documented On 8:35AM By Deborah Lowery ; [facility] Past Medications on file Clindamycin HCl 300 MG Oral Capsule 01/07/2025 - 01/09/2025 Provider: Holden Steiner Diagnosis: take 2 pills, 3 three times a day Last Documented On 5 11:06AM By Quentin Burk ; [facility] Clindamycin HCl 300 MG Oral Capsule 12/28/2024 - 01/08/2025 Provider: Holden Steiner Diagnosis: three times a day Last Documented On 5 10:10AM By Quentin Burk ; [facility] Percocet 5-325 MG Oral Tablet 12/19/2024 - 01/03/2025 Provider: Issa Rodriguez MD Diagnosis: 1 po q 4h prn pain Last Documented On 5 8:40AM By Issa Rodriguez ; [facility] Losartan Potassium 100 MG Oral Tablet 12/05/2024 - Provider: Diagnosis: Last Documented On 5 3:50PM By Marifer Nuñez ; [facility] DULoxetine HCl 60 MG Oral Ca psule Delayed Release Particles 12/05/2024 - 03/05/2025 Provider: Diagnosis: Last Documented On 5 3:49PM By Marifer Nuñez ; [facility] Montelukast Sodium 10 MG Oral Tablet 12/05/2024 - 02/15 Provider: Diagnosis: Last Documented On 5 3:49PM By Marifer Nuñez ; [facility] Losartan Potassium 100 MG Oral Tablet 03/03/2021 - Provider: Diagnosis: Last Documented On 5 3:50PM By Marifer Nuñez ; [facility] Montelukast Sodium 10 MG Oral Tablet 02/16/2021 - 11/16 Provider: Diagnosis: Last Documented On 5 3:49PM By Marifer Nuñez ; [facility] DULoxetine HCl 60 MG Oral Ca psule Delayed Release Particles 02/16/2021 - 12/05/2024 Provider: Diagnosis: Last Documented On 5 3:49PM By Marifer Nuñez ; [facility] Percocet 5-325 MG OR TABS 10/05/2019 - 03/12/2021 Prov ider: Issa Rodriguez MD Diagnosis: prn pain Last Documented On 1 8:36AM By Deborah Lowery ; [facility] Dilaudid 2 MG Oral Tablet 05/02/2019 - 03/12/2021 Provider: Domingo tan MD Diagnosis: 1-2 po q6h prn pain (RESCUE PAIN) DO NOT FILL TILL 05/04/2019 FOR SURGERY Last Documented On 1 8:36AM By Deborah Lowery ; [facility] Neurontin 300 MG Oral Capsule 05/02/2019 - 03/12/2021 Provider: Domingo tan MD Diagnosis: 1 every bedtime DO NOT SELVIN L TILL 05/04/2019 FOR SURGERY Last Documented On 1 8:36AM By Deborah Lowery ; [facility] traMADol HCl 50 MG Oral Tablet 05/02/2019 - 03/12/2021 Provider: Domingo tan MD Diagnosis: 1-2 po q6h prn pain DO NOT FILL TILL 05/04/2019 FOR SURGERY Last Documented On 1 8:35AM By Deborah Lowery ; [facility] oxyCODONE HCl 5 MG Oral Tablet 05/02/2019 - 03/12/2021 Provider: Domingo tan MD Diagnosis: 1-2 po q6h prn pain DO NOT FILL TILL 05/04/2019 FOR SURGERY Last Documented On 1 8:36AM By Deborah Lowery ; [facility] Zofran 4 MG Oral Tablet 05/02/2019 - 03/12/2021 Provid er: Domingo Billingsley MD Diagnosis: 3ezx7-8q DO NOT FILL TILL 05/04/2019 FOR SURGERY Last Documented On 1 8:35AM By Deborah Lowery ; [facility] Keflex 500 MG Oral Capsule 05/02/2019 - 03/12/2021 Provider: Domingo tan MD Diagnosis: 1 every 6 hours DO NOT SELVIN L TILL 05/04/2019 FOR SURGERY Last Documented On 1 8:36AM By Deborah Lowery ; [facility] Acetaminophen 500 MG Oral Tablet 05/02/2019 - 03/12/2021 Provider: Domingo Billingsley MD Diagnosis: 2 three times a day DO NOT FILL TILL 05/04/2019 FOR SURGERY Last Documented On 1 8:36AM By Deborah Lowery ; [facility] Colace 100 MG Oral Capsule 05/02/2019 - 03/12/2021 Provider: Domingo tan MD Diagnosis: 1-2 tabs daily DO NOT FILL TILL 05/04/2019 FOR SURGERY Last Documented On 1 8:36AM By Deborah Lowery ; [facility] Mobic 15 MG Oral Tablet 05/02/2019 - 03/12/2021 Provid er: Domingo Billingsley MD Diagnosis: once a day DO NOT FILL TIL L 05/04/2019 FOR SURGERY Last Documented On 1 8:36AM By Deborah Lowery ; [facility] Mupirocin 2% External Ointment 04/09/2019 - 03/12/2021 Provider: Domingo tan MD Diagnosis: Apply to nostrils 3 times a day 5 days prior to surgery. Last Documented On 1 8:35AM By Deborah Lowery ; [facility] Gabapentin 300MG Oral Capsule 04/05/2019 - 03/12/2021 Provider: Diagnosis: Last Documented On 1 8:35AM By Deborah Lowery ; [facility] HM Loratadine 10MG Oral Tablet 04/05/2019 - 03/12/2021 Provider: Diagnosis: Last Documented On 1 8:35AM By Deborah Lowery ; [facility] sulfaSALAzine 500MG Oral Tablet 03/24/2019 - Provider: Olga Licea [employer] Diagnosis: Last Documented On 1 8:35AM By Deborah Lowery ; [facility] Losartan Potassium 100MG Ora l Tablet 03/05/2019 - 03/12/2021 Provider: Olga Lozano PRN Diagnosis: Last Documented On 8:35AM By Deborah Lowery ; [facility] Montelukast Sodium 10MG Oral Tablet 03/04/2019 - 03/12/2021 Provider: Olga Lozano PRN Diagnosis: Last Documented On 8:35AM By Deborah Lowery ; [facility] Tamsulosin HCl 0.4MG Oral Capsule 03/04/2019 - 03/12/2021 Provider: Olga Lozano PRN Diagnosis: Last Documented On 8:35AM By Deborah Lowery ; [facility] LORazepam 1MG Oral Tablet 02/22/2019 - 03/12/2021 Prov ider: Olga Licea [employer] Diagnosis: Last Documented On 8:35AM By Deborah Lowery ; [facility] DULoxetine HCl 60MG Oral Capsule Delayed Release Particles 02/09/2019 - 03/12/2021 Provider: Olga Lozano PRN Diagnosis: Last Documented On 1 8:35AM By Deborah Lowery ; [facility] Finasteride 5MG Oral Tablet 01/21/2019 - 03/12/2021 Pr ovider: Olga Licea [employer] Diagnosis: Last Documented On 1 8:35AM By Deborah Lowery ; [facility] traZODone HCl 150MG Oral Tablet 01/21/2019 - Provider: Olga Licea [employer] Diagnosis: Last Documented On 8:35AM By Deborah Lowery ; [facility] Omeprazole 20MG Oral Tablet Delayed Release 12/07/2018 - 03/12/2021 Provider: ANDREA Abbott II, MD Diagnosis: Last Documented On 8:35AM By Deborah Lowery ; [facility] Medications Administered Includes: Administered Medications in patient's chart No Administered Medications Recorded Vital Signs Includes: Vital Signs from 07/08/2024 through 07/08/2025 Vital Name 06/06/2025 09:02A 01/14/2025 10:36A 01/07/2025 11:15A 01/07/2025 10:50A 12/28/2024 09:51A Height (in) 69 69 69 69 Weight (lb) 252 250 250 250 Body Mass Index 37.2 36.9 36.9 36.9 Body Surface Area 2.3 2.3 2.3 2.3 Pain Level 5 3 2 Temp-Oral (F) 97.5 Last Documented: On 06/06/2025 9:02AM ; [facility] On 01/14/2025 10:36AM ; [facility] On 01/07/2025 11:15AM ; [facility] On 01/07/2025 10:50AM ; [facility] On 12/28/2024 9:51AM ; [facility] Vital Name 12/05/2024 02:27P 11/29/2024 03: 21P Height (in) 69 68 Weight (lb) 250 250 Body Mass Index 36.9 38 Body Surface Area 2.3 2.2 Pain Level 8 Note: MCG Last Documented: On 12/05/2024 3:51PM ; [facility] On 11/29/2024 3:22PM ; [facility] Results Includes: Results from 07/08/2024 through 07/08/2025 No Results Recorded For Specified Dates Social History Description Last Updated Tobacco non-user 04/22/2022 Last Documented On 2 10:50AM ; [facility] No recent change in diet 04/22/2022 Last Documented On 2 10:50AM ; [facility] Not a current smoker. 04/22/2022 Last Documented On 2 10:50AM ; [facility] Non-smoker 03/12/2021 Last Documented On 1 8:44AM ; [facility] No tobacco use 04/05/2019 Last Documented On 9 10:53AM ; [facility] Smoking status : Never smoker 04/05/2019 Last Documented On 9 10:53AM ; [facility] Caffeine use 04/05/2019 Last Documented On 9 10:53AM ; [facility] No recent change in diet 04/05/2019 Last Documented On 9 10:53AM ; [facility] Not a current smoker 04/05/2019 Last Documented On 9 10:53AM ; [facility] Not exercising regularly 04/05/2019 Last Documented On 9 10:53AM ; [facility] Not using alcohol 04/05/2019 Last Documented On 9 10:53AM ; [facility] Not using drugs 04/05/2019 Last Documented On 9 10:53AM ; [facility] Sex - Male 07/05/2025 Last Documented On 5 2:08PM ; [facility] Procedures and Surgical History Includes: Procedures from 07/08/2024 through 07/08/2025 Procedures Code Diagnosis Performing Provider Service Location Service Date X-RAY EXAM OF TRUNK SPINE 24967 Encntr for adjust and mgmt of implanted nervous sys device, Presence of neurostimulator Issa Rodriguez MD [facility] 06/06/2025 Last Documented On 5 2:21PM ; [facility] Insertion or replacement of spinal neurostimulator pulse gen (Distinct procedure) 31928 Chronic pain syndrome Issa Rodriguez MD [facility] 12/19/2024 Last Documented On 5 5:16PM ; [facility] Revision including replacement, when [place] [address] [facility] compl of implnt elec nstim of spinal cord lead, init Issa Rodriguez MD [facility] 12/19/2024 Last Documented On 5 5:16PM ; [facility] X-RAY EXAM OF FINGER(S) 2-3 VIEWS (Bilateral Procedure) 63172 Trigger finger, left middle finger, 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 [facility] 12/05/2024 Last Documented On 5 3:22PM ; [facility] Injection, betamethasone acetate 6mg per cc and betamethason J0702 Trigger finger, left middle finger, 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, r hand [facility] 12/05/2024 Last Documented On 5 3:22PM ; [facility] INJ TENDON SHEATH/LIGAMENT (LEFT HAND, THIRD DIGIT) 85413 Trigger finger, left middle finger [facility] 12/05/2024 Last Documented On 5 3:22PM ; [facility] DRAIN/INJECT, JOINT/BURSA (RIGHT) 49940 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, r hand [facility] 12/05/2024 Last Documented On 5 3:22PM ; [facility] X-RAY EXAM OF LOWER SPINE 2-3 VIEWS LIMITED 88058 Chronic pain syndrome Issa Rodriguez MD [facility] 11/29/2024 Last Documented On 5 11:33AM ; [facility] X-RAY EXAM OF THORACIC SPINE 2 VIEWS 78217 Chronic pain syndrome Issa Rodriguez MD [facility] 11/29/2024 Last Documented On 5 11:33AM ; [facility] Surgical History Last Updated History of hernia repair 04/05/2019 Last Documented On 9 10:53AM ; [facility] Medical History Includes: Medical History [...] and resolved Allergies No Known Allergies Care Sexual Abuse Counsellor Name (Identifier) Role/Relation Location/Telecom Last Documented By Domingo Billingsley MD ([id number]) Assigned practitioner (occupation) tel:[phone] Last Documented On 07/05/2025 2:08PM ; [facility] Olga Licea [employer] ([id number]) [address] [place] [address], [address] tel: Last Documented On 04/05/2019 9:06AM ; [facility] Encounters Includes: Encounters from 07/08/2024 through 07/08/2025 Encounter Provider Location (Healthcare Service Location) Date Check-In Time Check-Out Time Diagnosis Encounter Disposition [Patient Encounter] Issa Rodriguez MD 202406/06/2025 8:31AM 06/06/2025 11:59PM Follow Up Issa Rodriguez MD [facility] 2024 8:53AM 10:11AM Overweight Post Op Holden Modi PA-C [facility] 2024 10:30AM 10:40AM Overweight Post Op Holden Modi PA-C [facility] 2024 10:33AM 11:15AM Overweight Post Op Holden Modi PA-C [facility] 2024 9:29AM 10:09AM Overweight [Patient Encounter] Issa Rodriguez MD 202412/05/2024 8:36AM 12/05/2024 11:59PM [facility] Issa Rodriguez MD Surgery 202412/23/2024 5:01PM 12/05/2024 11:59PM IN HOUSE REFERRAL Flako Pulido PA-C [facility] 2024 2:26PM 3:21PM Overweight Follow Up Issa Rodriguez MD [facility] 2024 3:04PM 3:32PM Payer Includes: Active Insurance Policies Plan Name (Payer ID) Coverage Type Member ID Group # Subscriber (ID) Relationship Effective Dates 1 - Medicare Part B [facility] ([id number]) [id number] Stephane Mendieta Self (Checked on 06/03/2025) Last Documented On 9 7:57AM ; [facility] 2 - [employer] Medicare Supplemen t Insurance [id number] Stephane Mendieta Self 09/15/2017 - Unknown Last Documented On 9 8:40AM ; [facility] Clinical Notes Includes: Signed Clinical Notes starting from 07/01/2022 * Progress note Date Encounter Last Documented by 06/06/2025 Follow Up Last documented on 06/11/2025; 1:20 PM, Issa Rodriguez MD; [facility] Active Problems & Conditions - [...] Care Team - Olga Licea APRN - [employer] SALES CONSULTANT Health Reminders - Assess BMI satisfied 06/06/2025. - Assess Tobacco Use satisfied 04/05/2019. - Follow Up Plan BMI Management satisfied 06/06/2025. * Progress note Date Encounter Last Documented by 01/14/2025 Post Op Last documented on 01/14/2025; 10:41 AM, Holden Modi PA-C; [facility], [facility] Active Problems & Conditions - [...] Care Team - Olga Licea APRN - [employer] SALES CONSULTANT * Progress note Date Encounter Last Documented by 01/07/2025 Post Op Last documented on 01/28/2025; 11:48 AM, Holden Modi PA-C; [facility] Active Problems & Conditions - [...] Care Team - Olga Licea APRN - BRIDAL SALES CONSULTANT * Progress note Date Encounter Last Documented by 12/28/2024 Post Op Last documented on 12/28/2024; 12:21 PM, Holden Mdoi PA-C; [facility] Active Problems & Conditions - [...] Care Team - Olga Licea APRN - [employer]IDAL SALES CONSULTANT * Progress note Date Encounter Last Documented by 12/05/2024 IN HOUSE REFERRAL Last documente d on 12/05/2024; 4:17 PM, Flako Pulido PA-C; [facility] Active Problems & Conditions - [...] Care Team - Olga Licea APRN - [employer]AL SALES CONSULTANT * Progress note Date Encounter Last Documented by 11/29/2024 Follow Up Last documented on 12/17/2024; 10:39 AM, Issa Rodriguez MD; [facility] Active Problems & Conditions - [...] be working 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 He is neurovascularly intact. He is [...] Care Team - Olga Licea APRN - [employer] SALES CONSULTANT Health Reminders - Assess BMI satisfied 11/29/2024. - Assess Tobacco Use satisfied 04/05/2019. - Follow Up Plan BMI Management satisfied 11/29/2024.
--- OUTSIDE RECORDS SUMMARY | 2025-07-08 10:28 | XMS_ITS | Clinical Summary ---
[facility] Address [address] [place] [address] Care Team Providers Care Storyboard Artist Name Role Phone Maya Torres Primary Care Provider + [phone] Allergies No known active allergies Medications DULoxetine [...] Completed 10/27/2020 Medical Devices Implanted Type Area Convention Services Director Device Identifier Shelf Expiration Date Model / Serial / Lot Ld Stim Precsn Trial Lnr 8contct St/Tp50 - [id number] - [id number] Implanted:Qty : 1 on 10/05/2022 by Jerome Morrissey MD at [facility] Implant N/A: Spine Thoracic [employer] 08/30/2024 [id number] / [id number] / Ld Stim Precsn Trial Lnr 8contct St/Tp50 - [id number] - [id number] Implanted:Qty : 1 on 10/05/2022 by Jerome Morrissey MD at [facility] Implant N/A: Spine Thoracic [employer] 08/26/2024 [id number] / [id number] / Anchr Ld Scs Clikx Ea/St/2 - [id number] Implanted:Qty : 1 on 10/05/2022 by Jerome Morrissey MD at [facility] Implant N/A: Spine Thoracic [employer] 01/06/2024 [id number] / / [id number] Kt Ipg Wavewriter Alpha 16/Contct - [id number] - [id number] Implanted:Qty : 1 on 10/05/2022 by Jerome Morrissey MD at [facility] Implant N/A: Spine Thoracic [employer] [id number] 09/13/2024 [id number] / [id number] / [id number] Insurance MEDICARE A & B Member Subscriber Plan / Payer (Ef fective 2017-Present) Name:Stephane Mendieta Member ID:[id number] Relation to Subscriber:Self Name:Stephane Mendieta Subscriber ID:[id number] Payer ID:[id number] Group ID:Not on file Type:Not on file Address: [facility] [id number] [place] [id number] [facility] [employer] Care Teams Storyboard Artist Relationship Specialty Start Date End Date Maya Torres Kaylyn [place] [phone] PCP - General Nurse Practitioner 09/28/22
--- OUTSIDE RECORDS SUMMARY | 2025-07-08 10:29 | XMS_ITS | Encounter Summary ---
Author Organization [facility] ([place], [place], [place], [place], [place]) Address [address] [place] [address] Care Team Providers Care Mixer Runner Name Role Phone Maya Torres Reji BELCHER Primary Care Provider [phone]- [phone] Encounter Details Date Type Department Care Team (Late st Contact Info) Description 10/27/2020 Transcribed Document [facility] Family Medicine [address] [place] [address] ProviderJean MD [address] [place] [address] Social History Tobacco Use Types [...] On: 10/27/2020 12:21 EDT by Jasmin Thornton D[employer]UTTER [employer]OND General-Functional Assess Preferred Communication Mode : Verbal Communication Barrier : None Primary Language : Argentine Any Spiritual/Cultural Needs or Requests : No [...] (Last Updated: 06/16/2018 08:14:43 EST by Shavonne iJmenez, HOLA) Alcohol: Alcohol Use History Yes. Alcohol Use Frequency Rarely. (Last Updated: 06/16/2018 08:14:43 EST by Shavonne Jimenez, HOLA) Substance Abuse: Drug Use Hx: No. (Last Updated: 06/16/2018 08:14:43 EST by Shavonne Jimenez, HOLA) Nutrition/Health: Regular (Last Updated: 06/16/2018 08:14:43 EST by Shavonne Jimenez, HOLA) Cardiovascular ASMT, ED Cardiovascular Symptoms : None Heart Rhythm : Regular Nail Bed Color : Doyle Chest Pain : No Capillary Refill, Left [...] mm Pupil Size, Right : 3 mm [place] Coma Scale Link : Open GCS Jasmin Thornton RN - 10/27/2020 12:21 EDT Diana Coma Diana Best Motor Response : Obey commands Diana Best Verbal Response : Oriented [place] Eye Opening Response : Spontaneous [place] Coma Score : 15 Jasmin Thornton RN - 10/27/2020 12:21 EDT Electronically signed by [facility] Conversion Adult Services Librarian Cerner at 11/04/2022 3:11 PM CDT documented in this encounter Plan of Treatment Not on file documented as of this encounter Visit Diagnoses Not on filedocumented in this encounter Care Teams Mixer Runner Relationship Specialty Start Date End Date Maya Torres, [facility] DIRECTOR [address] [phone] PCP - General Family Medicine 08/27/22 documented as of this encounter
[2025-07-08 10:42] LABS: Hematocrit 32.7 % (42.0-52.0); Hemoglobin 10.5 g/dL (14.1-18.0); Immature Granulocytes % 1.1 %; Mean Corpuscular HGB Conc 32.1 g/dL (31.8-35.4); Mean Corpuscular Hemoglobin 28.6 pg (27.0-31.2); Mean Corpuscular Volume 89.1 fl (80-94); Nucleated Red Blood Cells % 0 %; Platelet Count 221 K/mm3 (142-424); Red Blood Count 3.67 M/mm3 (4.60-6.20); Red Cell Distribution Width-SD 46.0 fL; White Blood Count 10.5 K/mm3 (4.8-10.8)
[2025-07-08 10:50] LABS: Alanine Aminotransferase 22 U/L (12-78); Albumin Level 4.0 g/dl (3.5-5.0); Albumin/Globulin Ratio 1.3 (1.1-1.8); Alkaline Phosphatase 67 U/L (38-126); Anion Gap 9.1 mEq/L (5-15); Aspartate Amino Transferase 30 U/L (17-59); Bilirubin,Total 0.7 mg/dl (0.2-1.3); Blood Urea Nitrogen 12 mg/dl (9-20); Calcium 8.9 mg/dl (8.4-10.2); Carbon Dioxide 28 mmol/L (22.0-30.0); Chloride 104 mmol/L (98-107); Creatine Kinase 117 U/L (55-170); Creatinine Clearance Estimated 107 mL/min (50-200); Creatinine,Serum 1.00 mg/dl (0.66-1.25); Estimated Glomerular Filt Rate 73 ml/min (>60); GFR (African American) 89 ML/MIN (>60); Globulin 3.1 g/dL (1.3-3.2); Glucose 159 mg/dl (74-100); Potassium 3.1 mmoL/L (3.5-5.1); Sodium 138 mmol/L (136-145); Total Protein,Serum 7.1 g/dl (6.3-8.2)
[2025-07-08] MEDS: DAPTOmycin 1,000 MG in 0.9 % SODIUM CHLORIDE 50 ML 100 MG IV (10:52)
[2025-07-08 10:55] LABS: C-Reactive Protein 33.5 mg/L (0-4)
[2025-07-08 11:30] VITALS: BP 165/90; PULSE 74; RESP 16; TEMP 36.7; O2SAT 94
[2025-07-08] MEDS: SODIUM CHLORIDE 0.9% 10ML FLUSH SYRINGE 10 ML IV (12:10)
== END 2025-07-08 11:40 | disposition home or self-care (01) ==
LOC: INF 10:24
PROVIDERS: PCP Nurse Practitioner; Visit Provider Internal Medicine Infectious Disease
DX: T85.73 Infection and inflammatory reaction due to nervous system devices, implants and graft (principal)
CPT/HCPCS: 80053; 82550; 85025; 85651; 86140; 96365; J0878

== ENCOUNTER 2025-07-09 10:25 | Outpatient (CLI) | payer MEDICARE, OTHER, SELFPAY ==
--- OUTSIDE RECORDS SUMMARY | 2022-12-01 11:56 | XMS_ITS | Encounter Summary ---
[facility] [address] [place] [address] Care Team Providers Care Marketing Intelligence Manager Name Role Phone Maya Torres Primary Care Provider + [phone] Encounter Details Date Type Department Care Team (Late st Contact Info) Description 12/01/2022 12:56 PM EDT Hospital Encounter [facility] PULMONARY & CRITICAL CARE MEDICINE [facility] [place] [address] Social History Tobacco Use Types [...] Narrative 12/01/2022 1:31 PM EDT Stephane Annton [id number] 12/01/2022 Chest X-Ray PA & Lateral Indication: [...] on filedocumented in this encounter Care Teams Marketing Intelligence Manager Relationship Specialty Start Date End Date Maya Torres [address] [place] [address] PCP - General Nurse Practitioner 09/28/22 documented as of this encounter
--- OUTSIDE RECORDS SUMMARY | 2024-04-27 06:30 | XMS_ITS ---
Author Organization [facility] Address [address] [place] [address] Care Team Providers Care National Account Manager Name Role Phone Jerome Morrissey II Unavailable [phone] Michael COLEMAN -Pramod Velazquez MD, Issa Unavailable [phone] Allergies No Known Allergies REASON FOR VISIT [...] Diagnosis [facility] [address] [place] [address] 04/27/2024 Jerome Morrissey Other alf (current) drug therapy Z79.899 ; Spondylosis without myelopathy or radiculopathy, cervical region M47.812 ; Postlaminectomy syndrome, not elsewhere classified M96.1 and Spondylosis without myelopathy or radiculopathy, lumbar region M47.816 Assessments Encounter Date Diagnosis (ICD Code) Assessment Notes Treatment Notes Treatment Clinical Notes Section Notes 04/27/2024 Other terminal operations manager (current) drug therapy (ICD-10 - Z79.899) 04/02/2024 1. Discontinue [place] 5/325mg QD PRN 2. FU 1 month with Yuni 3. [facility] to change SCS settings 4. [...] no relief with TFESI LT in January. [facility] rep in the room changing SCS settings. [...] no relief with TFESI LT in January. [facility] rep in the room changing SCS settings. [...] no relief with TFESI LT in January. [facility] rep in the room changing SCS settings. [...] no relief with TFESI LT in January. [facility]um rep in the room changing SCS settings. [...] Of Treatment Treatment Notes Assessment Notes Other alf (current) drug therapy 04/02/2024 1. Discontinue [place] 5/325mg QD PRN 2. FU 1 month with Yuni 3. [facility] rep to change SCS settings 4. S/P [...] Stephane YANEZ ADOB: 3 (74 yo M)Acc No.[id number]:04/27/2024 FollowUP Patient: Stephane RODRIGUEZ Provider: Reji Morrissey II, M.D. :1950 A ge:73 Y S ex:Male Date:04/27/2024 Address:[address] [place], [place] [id number] Subjective: * Chief Complaints: * 1 . [...] relief for 1 hour 0 08/09/2022SCS Trial [place] 80% relief for 1 week 0 02/13/2024#1 [...] * Vitals: * Examination: G eneral Examination: Nurse/Court Liaison: Phill McnamaraMA-Shamar)Madeleine 04/02/2024 9:48:48 AM > . [...] Assessment: * Assessment: 1. O ther terminal operations manager (current) drug therapy - Z79.899 (Primary) 2 [...] no relief with TFESI LT in January. Plum rep in the room changing SCS settings. [...] signature of Raymon Morrissey II, M.D. on 07/09/2025 at 09:30 AM JACQUARD LOOM FIXER Sign off status: Pending * Provider: Reji Morrissey II, M.D. Date: 1 Generated for Irwin spears/Davon/Bentleyitting on: 1 09/09/2024 09:30 AM JACQUARD LOOM FIXER History and Physical Notes * HPI (History [...] to advanced foraminal encroachment PHYSICAL/AQUA THERAPY/DME/OTHER HISTORY: 1120-1462 Chiropractic therapy program complete 06/2023-Present: Patient continues a prescribed home exercise program 3-5 times per week which includes walking, lumbar stretches, and alternating leg lifts PERTINENT SURGICAL EVALUATIONS/SPECIALIST CONSULTS 04/2022 - Dr. Rodriguez - No surgery recommened, recommends SCS trial PREVIOUS INJECTION\PROCEDURE HISTORY: 08/21/2019 #1 SIJI RT 20% relief for 1 hour 08/09/2022 SCS Trial [place] 80% relief for 1 week 02/13/2024 #1 [...] wi th an antalgic gait, pitched forward Nurse/Court Liaison: Mendez SHARMA-Shamar)Francisco J 04/02/2024 9:48:48 AM > [...]
--- OUTSIDE RECORDS SUMMARY | 2024-05-28 10:30 | XMS_ITS ---
Author Organization [facility] Address [address] [place] [address] Care Team Providers Care Hydro Generation Supervisor Name Role Phone Jerome Morrissey II Unavailable Michael COLEMAN -Pramod Velazquez MD, Issa Unavailable [phone] Allergies No Known Allergies REASON FOR VISIT Leg Pain (LT), Low back pain Medications Medication SIG (Take, Route, Frequency, Duration) Notes Start Date End Date Status finasteride 5 mg ; Duration: 90 Active DULoxetine 60 mg 1 cap(s) orally once a day; Duration: 30 day(s) 05/20/2022 Active traZODone 150 mg as directed orally 05/20/2022 Active tamsulosin 0.4 mg 1 cap(s) orally once a day; Duration: 30 day(s) 05/20/2022 Active Fluticasone Propionate 50 mcg intranasal use 05/20/2022 Active sulfaSALAzine 500 mg ; Duration: 90 Active omeprazole 40 mg ; Duration: 90 Active montelukast 10 mg 1 tab(s) orally once a day; Duration: 30 day(s) 05/20/2022 Active Losartan 100 mg ; Duration: 90 Active gabapentin 300 mg 1 cap(s) orally once a day Active LORazepam 1 mg 1 tab(s) orally once daily Active levoFLOXacin 500 mg 1 tab(s) orally ever y 24 hours; Duration: 6 day(s) 08/09/2022 Active Encounters Encounter Location Date Provider Diagnosis [facility] [address] [address] 05/28/2024 Jerome Morrissey Other termite exterminator helper (current) drug therapy Z79.899 ; Spondylosis without myelopathy or radiculopathy, cervical region M47.812 ; Postlaminectomy syndrome, not elsewhere classified M96.1 and Spondylosis without myelopathy or radiculopathy, lumbar region M47.816 Assessments Encounter Date Diagnosis (ICD Code) Assessment Notes Treatment Notes Treatment Clinical Notes Section Notes 05/28/2024 Other mcc (current) drug therapy (ICD-10 - Z79.899) 04/02/2024 1. Discontinue [place] 5/325mg QD PRN 2. FU 1 month with [facility] 3. [employer] rep to change SCS settings 4. S/P TFESI LT L5/S1 Mr. Mendieta returns today for an office visit. He [...] no relief with TFESI LT in January. [employer] rep in the room changing SCS settings. [...] - #1 TFESI LT L5/S1 no relief 05/28/2024 Spondylosis without myelopathy or radiculopathy, cervical region (ICD-10 - M47.812) Mr. Mendieta returns today for an office visit. He [...] no relief with TFESI LT in January. [employer] rep in the room changing SCS settings. [...] - #1 TFESI LT L5/S1 no relief 05/28/2024 Postlaminectomy syndrome, not elsewhere classified (ICD-10 - M96.1) Mr. Mendieta returns today for an office visit. He [...] no relief with TFESI LT in January. [employer] in the room changing SCS settings. Patient [...] - #1 TFESI LT L5/S1 no relief 05/28/2024 Spondylosis without myelopathy or radiculopathy, lumbar region (ICD-10 - M47.816) Mr. Mendieta returns today for an office visit. He [...] no relief with TFESI LT in January. [employer] rep in the room changing SCS settings. [...] Of Treatment Treatment Notes Assessment Notes Other termite exterminator helper (current) drug therapy 04/02/2024 1. Discontinue [place] 5/325mg QD PRN 2. FU 1 month with [facility] 3. [employer] rep to change SCS settings 4. S/P TFESI LT L5/S1 Pending Test Test Name Order Date Urine Test ANALYZER 05/28/2024 Procedure Notes * Category Sub-Category Detail Notes PROVIDER ENCOUNTER AND OVERSIGHT Consult Performed By: Cedric GARLAND-Mack DOCKERY 04/02/2024 9:45:22 AM > collaborated treatment plan with Jerome crandall M.D., supervising physician who was present in office during consultation Progress Notes * Stephane MENDIETA ADOB: 3 (74 yo M)Acc No.[id number]:05/28/2024 Progress NOte Patient: Stephane RODRIGUEZ Provider: Reji Morrissey II, M.D. :1950 A ge:73 Y S ex:Male Date:05/28/2024 Address:[address] [place] [id number] Subjective: * Chief Complaints: * 1 . Leg Pain (LT). 2. Low back pain. * HPI: T ODAYS PAIN EVALUATION: 73 year old male presents with c/o MEDICATION FOLLOW UP: P atient does not wnat any more opioids. CURRENT PAIN SYMPTOMS: L ocation of Worst Pain: L ow Back, Leg(s) Left, P ain Frequency: c onstant, P ain Description: s Marta angulo verstanton Pain Score VAS: 1 0, P ain Exacerbation: walking, P ain Alleviation: s itting, A DL/Quality of Life Interference: Everything. P AIN MANAGEMENT TREATMENT HISTORY: IMAGING HISTORY: 1 MRI Lumbar:Interval postoperative changes at L4/5. Overall stable to slightly progressed degenerative changes of the lumbar spine with multilevel moderate to advanced foraminal encroachment . P REVIOUS INJECTION\PROCEDURE HISTORY:? 0 08/21/2019 #1 SIJI RT20% relief for 1 hour 0 08/09/2022 SCS Trial Ieiobc07% relief for 1 week 0 02/08/2024- #1 TFESI LT L5/S1 no relief. P HYSICAL/AQUA THERAPY/DME/OTHER HISTORY: 2 -2023 Chiropractic therapy program complete 1 08/2022-Present: Patient continues a prescribed home exercise program 3-5 times per week which includes walking, lumbar stretches, and alternating leg lifts . P ERTINENT SURGICAL EVALUATIONS/SPECIALIST CONSULTS 1 - Dr. Rodriguez - No surgery recommened, recommends SCS trial . P REVIOUS PAIN CLINIC CARE: D richardies . S MIGEL OF INITIAL EVALUATION: 1 : New patient consult referred by Michael COLEMAN for chronic back pain onset in 2019 without incident ?Stephane was referred here in consultation for evaluation [...] C igarettes Denies. * Medications: T aking finasteride 5 mg tablet , Taking levoFLOXacin 500 mg tablet 1 tab(s) orally [...] capsule 1 cap(s) orally once a day * Allergies: N .K.D.A. Objective: * Vitals: * Examination: G eneral Examination: Nurse/Automatic Mold Sander: Madeleine Gonzalez (MA-Lex) 04/02/2024 9:48:48 AM > . General Appearance: [...] scars. Assessment: * Assessment: 1. O ther mcc (current) drug therapy - Z79.899 (Primary) 2 . S pondylosis without myelopathy or radiculopathy, cervical region - M47.812 3 . P ostlaminectomy syndrome, not elsewhere classified - M96.1 4 . S pondylosis without myelopathy or radiculopathy, lumbar region - M47.816 Mr. Mendieta returns today for an office visit. He [...] no relief with TFESI LT in January. [employer] rep in the room changing SCS settings. [...] AND OVERSIGHT: Consult Performed By: Dania apodaca (SIMI-Mack DOCKERY 04/02/2024 9:45:22 AM > . c ollaborated treatment plan with Reji Morrissey M.D., supervising physician who was present in office during consultation. * * Electronic signature of Raymon Morrissey II, M.D. on 07/09/2025 at 09:31 AM GREENHOUSE SPECIALIST Sign off status: Pending * Provider: Reji Morrissey II, M.D. Date: 07/28/2023 Generated for Irwin spears/Davon/Nicholasransmitting on: 09/09/2024 09:31 AM GREENHOUSE SPECIALIST History and Physical Notes * HPI (History of Present Illness) Category Sub-Category Detail Notes Category Not es PAIN MANAGEMENT TREATMENT HISTORY SUMMARY OF INITIAL EVALUATION: 04/19/2019: New patient consult referred by Michael COLEMAN [...] to advanced foraminal encroachment PHYSICAL/AQUA THERAPY/DME/OTHER HISTORY: 6224-6705 Chiropractic therapy program complete 06/2023-Present: Patient continues a prescribed home exercise program 3-5 times per week which includes walking, lumbar stretches, and alternating leg lifts PERTINENT SURGICAL EVALUATIONS/SPECIALIST CONSULTS 04/2022 - Dr. Rodriguez - No surgery recommened, recommends SCS trial PREVIOUS INJECTION\PROCEDURE HISTORY: 08/21/2019 #1 SIJAYLYN RT 20% relief for 1 hour 08/09/2022 SCS Trial [place] 80% relief for 1 week 02/08/2024 - #1 TFESI LT L5/S1 no relief PREVIOUS PAIN CLINIC CARE: Denies COMPLIANCE RISK ASSESSMENT AND STRATIFICATI ON: RISK GROUP: MODERATE RISK URINE DRUG TESTIN01/11/2024 Screen Expected Definitive Expected 02/08/2024 Screen Expected Definitive Expected 04/02/2024 Screen Expected MONITORING: Morphine Equivalent (MME): 0 HANY reviewed today and appropriate TESTING/RISK ASSESSMENTS ORT Score/Result: TODAYS PAIN EVALUATION MEDICATION FOLLOW UP: Micaela ient does not wnat any more opioids CURRENT [...] wi th an antalgic gait, pitched forward Nurse/Automatic Mold Sander: Mendez (ALEJANDRINA-[facility])Francisco J 04/02/2024 9:48:48 AM > Cervical Spine/Neck [...]
--- OUTSIDE RECORDS SUMMARY | 2025-07-09 10:18 | XMS_ITS | Continuity of Care Document ---
Author Organization 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 ; Obesity ; FAMILY HISTORY RELATION: Father Status: Cause of : Malignant tumor of lung Age at : 55 SNOMED-CT Diagnosis Age At Onset Information not available RELATION: Mother Status: Cause of : Unknown Age at : Unknown SNOMED-CT Diagnosis Age At Onset [id number] Diabetes mellitus PROBLEMS PATIENT PROBLEMS Code Description/Comments Category Status Upda gigi By [id number] Chronic back pain active [id number] on July 03, 2025 5:48:08 PM UT [id number] 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 active [id number] o n July 04, 2025 12:32:46 PM UT [id number] Obesity active [id number] on Jun 12:33:01 PM UT RESULTS Patient: RENATA Lozano Date of : [birth year] 4 LABORATORY RESULTS ORDER 2800: C-REACTIVE PROTE IN CRP (LOINC: 1987-11) ORDER DATE: July 03, 2025 10:18:00 PM UTC Specimen Source: PLASMA Specimen Type: Plasma specim en PERFORMING LAB: [address] [id number] Result Comment: Final Result Date: July 04, 2025 1:20:00 AM UTC (TECH: ME) LOINC TEST FLAG RESULT REFERENCE RANGE UPDA GIGI BY 1987- C reactive protein [Mass/volume] in Serum or Plasma H 0.9 mg/dL 0.05 mg/dL - 0.300 mg/dL July 04, 2025 1:20:00 AM UTC (TECH: ME) ORDER 2900: SED RATE (LOINC: 4537-7) ORDER DATE: July 03, 2025 10:18:00 PM UTC Specimen Source: EDTA Specimen Type: Blood specime n with EDTA PERFORMING LAB: [address] [id number] Result Comment: Final Result Date: July 04, 2025 1:08:00 AM UTC (TECH: AY) LOINC TEST FLAG RESULT REFERENCE RANGE UPDA GIGI BY 4537-7 Erythrocyte sedimentation rate by Westergren method N 13 0 - 15 July 04, 2025 1:08:00 AM UTC (TECH: AY) ORDER 3000: CBC AUTO W DIFF (LOINC: 08041-3) ORDER DATE: July 03, 2025 10:18:00 PM UTC Specimen Source: EDTA Specimen Type: Blood specime n with EDTA PERFORMING LAB: [address] [id number] Result Comment: Final Result Date: July 04, [...] 04, 2025 2:36:00 AM UTC (TECH: AY) 74896-0 Hematocrit [Volume Fraction] of Blood L 34.5 [...] 04, 2025 2:36:00 AM UTC (TECH: AY) 04349-0 Erythrocyte distribution width [Ratio] H 14.1 % 11.5 % - 14.0 % July 04, 2025 2:36:00 AM UTC (TECH: AY) 777-3 Platelets [#/volume] in Blood by Automated count N 238 K/ul 150 K/ul - 450 K/ul July 04, 2025 2:36:00 AM UT (TECH: AY) 67680-1 Platelet mean volume [Entitic volume] in Blood by Automated count N 9.2 fl 6 fl - 9.5 fl July 04, 2025 2:36:00 AM UTC (TECH: AY) 47940-2 Neutrophils/100 leukocytes in Blood H 94.3 % [...] 1.0 % July 04, 2025 2:36:00 AM UTC (TECH: AY) 63896-3 Immature granulocytes/100 leukocytes in Blood by Automated count H 1.2 % 0.0 % - 0.8 % July 04, 2025 2:36:00 AM UTC (TECH: AY) 39800-5 Nucleated cells [#/volume] in Blood N 0.0 % July 04, 2025 2:36:00 AM UTC (TECH: AY) 70467-4 Neutrophils [#/volume] in Blood H 13.5 K/uL 2.2 K/uL - 4.8 K/uL July 04, 2025 2:36:00 AM UTC (TECH: AY) 731-0 Lymphocytes [#/volume] in Blood by Automated count L 0.5 CELL/MCL 1.3 CELL/MCL - 2.9 CELL/MCL July 04, 2025 2:36:00 AM UTC (TECH: AY) 742-7 Monocytes [#/volume] in Blood by Automated count L 0.2 CELL/MCL 0.3 CELL/MCL - 0.8 CELL/MCL July 04, 2025 2:36:00 AM UTC (TECH: AY) 711-2 Eosinophils [#/volume] in Blood by Automated count N 0.0 CELL/MCL 0 CELL/MCL - 0.2 CELL/MCL July 04, 2025 2:36:00 AM UTC (TECH: AY) 704-7 Basophils [#/volume] in Blood by Automated count N 0.0 CELL/MCL 0.0 CELL/MCL - 1.0 CELL/MCL July 04, 2025 2:36:00 AM UTC (TECH: AY) 51197-8 Immature granulocytes [#/volume] in Blood N 0.17 K/ul July 04, 2025 2:36:00 AM UTC (TECH: AY) 01119-4 Nucleated cells [#/volume] in Blood N 0.00 K/uL July 04, 2025 2:36:00 AM UTC (TECH: AY) 72039-0 Manual Differential panel - Blood N YES July 04, 2025 2:36:00 AM UT (TECH: AY) 46036-7 Neutrophils.segmente d/100 leukocytes in Blood by Automated count H 90 % 42 % - 76 % July 04, 2025 2:36:00 AM UT (TECH: AY) 736-9 Lymphocytes/100 leukocytes in Blood by Automated count L 8 % 15 % - 41 % July 04, 2025 2:36:00 AM UTC (TECH: AY) 5905-5 Monocytes/100 leukocytes in Blood by Automated count N 2 % 2 % - 9 % July 04, 2025 2:36:00 AM UT (TECH: AY) 778-1 Platelets [#/volume] in Blood by Manual count N ADEQUATE ADEQUATE July 04, 2025 2:36:00 AM UT (TECH: AY) 9317-9 Platelet adequacy [Presence] in Blood by Light microscopy N NORMAL NORMAL July 04, 2025 2:36:00 AM UT (TECH: AY) 09458-9 Erythrocytes [Morphology] in Blood by Automated count N NORMAL NORMAL July 04, 2025 2:36:00 AM [facility] (TECH: AY) ORDER 3100: COMP METABOLIC P SURINDER (LOINC: 68727-1) ORDER DATE: July 03, 2025 10:18:00 PM UT Specimen Source: PLASMA Specimen Type: Plasma specim en PERFORMING LAB: [address] [id number] Result Comment: Final Result Date: July 04, 2025 1:20:00 AM UT (TECH: [employer]) LOINC TEST FLAG RESULT REFERENCE RANGE UPDA [...] July 04, 2025 1:20:00 AM UT (TECH: [employer]) 8-9 Carbon dioxide, tota l [Moles/volume] in Serum or Plasma N 25.2 mmol/L 21.0 mmol/L - 32.0 mmol/L July 04, 2025 1:20:00 AM UT (TECH: [employer]) 67653-7 Anion gap in Blood N 16.6 D [id number] 1:20:00 AM UTC (TECH: [employer]) 2345-7 Glucose [Mass/volume ] in Serum or Plasma H 263 mg/dl 70 mg/dl - 120 mg/dl July 04, 2025 1:20:00 AM UT (TECH: [employer]) 6299-2 Urea nitrogen [Mass/volume] in Blood N 12 mg/dL 7 mg/dL - 18 mg/dL July 04, 2025 1:20:00 AM UT (TECH: [employer]) 64732-5 Creatinine [Moles/volume] in Blood N 1.3 mg/dL 0.6 mg/dL - 1.3 mg/dL July 04, 2025 1:20:00 AM UT (TECH: [employer]) 01948-9 Glomerular filtratio n rate/1.73 sq M.predicted by Creatinine-based formula (MDRD) L 58 mlpermin 60 mlpermin July 04, 2025 1:20:00 AM [facility] (TECH: [employer]) 83466-7 Osmolality of Serum or Plasma by calculated by sum of electrolytes N 298 mosm/kg 275 mosm/kg - 301 mosm/kg July 04, 2025 1:20:00 AM UT (TECH: [employer]) 2885-2 Protein [Mass/volume ] in Serum or Plasma N 7.1 g/dl 6.4 g/dl - 8.2 g/dl July 04, 2025 1:20:00 AM UT (TECH: [employer]) 1751-7 Albumin [Mass/volume ] in Serum or Plasma N 3.6 g/dl 3.4 g/dl - 5.0 g/dl July 04, 2025 1:20:00 AM UT (TECH: [employer]) 2336-6 Globulin [Mass/volum e] in Serum N 3.5 July 04, 2025 1:20:00 AM UT (TECH: ME) 1759-0 Albumin/Globulin [Ma ss Ratio] in Serum or Plasma N 1.0 0.7 - 2 July 04, 2025 1:20:00 AM [facility] (TECH: ME) 15690-1 Calcium [Mass/volume ] in Serum or Plasma N 8.7 mg/dl 8.5 mg/dl - 10.5 mg/dl July 04, 2025 1:20:00 AM [facility] (TECH: ME) 1975-2 Bilirubin.total [Mass/volume] in Serum or Plasma N 0.40 mg/dL 0.10 mg/dL - 1.00 mg/dL July 04, 2025 1:20:00 AM [facility] (TECH: ME) 1920-8 Aspartate aminotransferase [Enzymatic activity/volume] in Serum or Plasma N 14 U/L 0 U/L - 37 U/L July 04, 2025 1:20:00 AM [facility] (TECH: [employer]) 1742-6 Alanine aminotransferase [Enzymatic activity/volume] in Serum or Plasma N 23 U/L 0 U/L - 65 U/L July 04, 2025 1:20:00 AM [facility] (TECH: ME) 6768-6 Alkaline phosphatase [Enzymatic activity/volume] in Serum or Plasma N 69 U/L 46 U/L - 116 U/L July 04, 2025 1:20:00 AM [facility] (TECH: ME) ORDER 3500: BASIC METABOLIC PANEL (LOINC: 42895-2) ORDER DATE: July 03, 2025 10:19:00 PM [facility] Specimen Source: PLASMA Specimen Type: Plasma specim en PERFORMING LAB: [address] [id number] Result Comment: Final Result Date: July 04, 2025 11:56:00 AM [facility] (TECH: ARR) LOINC TEST FLAG RESULT REFERENCE [...] 04, 2025 11:56:00 AM UTC (TECH: ARR) 2028-03 Carbon dioxide, total [Moles/volume] in Serum or Plasma N 26.0 mmol/L 21.0 mmol/L - 32.0 mmol/L July 04, 2025 11:56:00 AM UTC (TECH: ARR) 35377-7 Anion gap in Blood N 14.4 D [id number] 11:56:00 AM UTC (TECH: ARR) 2345-7 Glucose [Mass/volume] in Serum or Plasma H 147 mg/dl 70 mg/dl - 120 mg/dl July 04, 2025 11:56:00 AM UTC (TECH: ARR) 6299-2 Urea nitrogen [Mass/volume] in Blood N 11 mg/dL 7 mg/dL - 18 mg/dL July 04, 2025 11:56:00 AM UTC (TECH: ARR) 11743-5 Creatinine [Moles/volume] in Blood N 1.2 mg/dL 0.6 mg/dL - 1.3 mg/dL July 04, 2025 11:56:00 AM UTC (TECH: ARR) 66505-2 Glomerular filtration rate/1.73 sq M.predicted by Creatinine-based formula (MDRD) N 64 mlpermin 60 mlpermin July 04, 2025 11:56:00 AM UT (TECH: ARR) 70828-5 Osmolality of Serum or Plasma by calculated by sum of electrolytes N 289 mosm/kg 275 mosm/kg - 301 mosm/kg July 04, 2025 11:56:00 AM UTC (TECH: ARR) 30668-4 Calcium [Mass/volume] in Serum or Plasma L 8.4 mg/dl 8.5 mg/dl - 10.5 mg/dl July 04, 2025 11:56:00 AM UT (TECH: ARR) ORDER 3600: PROCALCITONIN (L OINC: 33413-2) ORDER DATE: July 03, 2025 10:19:00 PM UT Specimen Source: PLASMA Specimen Type: Plasma specim en PERFORMING LAB: [address] [id number] Result Comment: Final Result Date: July 04, 2025 1:30:00 AM UTC (TECH: AY) LOINC TEST [place] [address]-3 Procalcitonin [Mass/volume] in Serum or Plasma by Immunoassay N <0.05 ng/mL 0.00 ng/mL - 0.5 ng/mL July 04, 2025 1:30:00 AM UTC (TECH: AY) ORDER 3700: VANCOMYCIN TROUG H (LOINC: 4092-3) ORDER DATE: July 04, 2025 12:18:00 PM UTC Specimen Source: SERUM Specimen Type: Serum specime n PERFORMING LAB: [address] [id number] Result Comment: Final Result Date: July 05, [...] Specimen Type: Plasma specim en PERFORMING LAB: [address] [id number] Result Comment: Final Result Date: July 05, 2025 12:34:00 PM UTC (TECH: ADB) LOINC TEST FLAG RESULT REFERENCE RANGE UPDA GIGI BY 2157-6 Creatine kinase [Enzymatic activity/volume] in Serum or Plasma N 221 IU/l 35 IU/l - 232 IU/l July 05, 2025 12:34:00 PM UTC (TECH: ADB) LABORATORY NARRATIVE RESULTS Information is not available RADIOLOGY RESULTS ORDER 3200: CHEST PORTABLE ( LOINC: 27978-3) ORDER DATE: July 03, 2025 10:18:00 PM UTC PERFORMING LAB: [address] [id number] Final Result Date: July 04, 2025 1:49:26 PM UTC [facility] [address] [address] Name: ISATU YANEZ Exam Date: 07/04/2025 : 1950 Age 74 years Gender: M Physician: LANDON GARCIA Facility: [facility] Facility HSV: Outpatient Exam: CHEST PORTABLE PROCEDURE: XR CHEST 1 VIEW 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 COMPARISON: June 25, 2024 [...] by: Nikki Szymanski MD 07/04/2025 08:49 AM [facility] Dictated By: Nikki Szymanski Transcribed By: Transcribed On: 07/04/2025 8:49 AM Electronically signed by: Nikki Szymanski 07/04/2025 Thank you for referring [facility]. Legally authenticated by KAMLA SHAVER 2025-07-04 08:49:26 PATHOLOGY NARRATIVE RESULTS Information is not available MICROBIOLOGY RESULTS ORDER 700: CULTURE WOUND ( INC: 6462-6) ORDER DATE: July 03, 2025 5:58:00 PM UTC PERFORMING LAB: [address] [id number] Specimen Source: OTHER Specimen Type: Result Comment: July 04, 2025 2:59:00 PM UTC (TECH: MH2) INSUFFICIENT GROWTH; REINCUBATE Result Comment: July 05, 2025 8:54:00 AM UTC (TECH: MH2) FURTHER ISOLATION REQUIRED Result Comment: July 06, 2025 12:08:00 PM UTC (TECH: MH2) Moderate Growth Coagulase Positive Staphlococcus Final Result Date: July 07, 2025 10:38:00 AM UTC (TECH: MH2) ISOLATE #1 Organism: METHICILLIN RESISTANT STAPHLOCOCCUS AUREUS Result Comment: Final Result Date: July 07, 2025 10:38:00 AM UTC (TECH: MH2) [facility] ANTIBIOTIC JN TYPE VALUE U[place] B Y 02988-4 Amox/K Clav <= 0.0 Systemic R July 07, 2025 10:38:00 AM UTC (TECH: MH2) 21349-9 Ampicillin >8.0 Systemic R July 07, 2025 10:38:00 AM UTC (TECH: MH2) 38851-4 Amp/Sulbactam <= 0.0 Systemic R Decemb er 2024 10:38:00 AM UTC (TECH: MH2) 77166-4 Azithromycin >4.0 Systemic R Decembe r 2024 10:38:00 AM UTC (TECH: MH2) Cefoxitin Screen >4.0 Systemic R Dec ember 2024 10:38:00 AM UTC (TECH: MH2) Ceftaroline <= 0.5 Systemic S July 07, 2025 10:38:00 AM UTC (TECH: MH2) Daptomycin <= 1.0 Systemic S July 07, 2025 10:38:00 AM UTC (TECH: MH2) Inducible Clindamy 0.5 Systemic S D ecember 2024 10:38:00 AM UTC (TECH: MH2) Levofloxacin <= 1.0 Systemic S Decembe r 2024 10:38:00 AM UTC (TECH: MH2) Linezolid <= 2.0 Systemic S June 182024 10:38:00 AM UTC (TECH: MH2) Meropenem <= 4.0 Systemic R June 182024 10:38:00 AM UTC (TECH: MH2) 02754-7 Cefazolin <= 8.0 Systemic R June 182024 10:38:00 AM UTC (TECH: MH2) 26025-9 Ceftriaxone <= 8.0 Systemic R July 07, 2025 10:38:00 AM UTC (TECH: MH2) 15204-0 Ciprofloxacin <= 1.0 Systemic S Decemb er 2024 10:38:00 AM UTC (TECH: MH2) 80411-7 Clindamycin 1.0 Systemic I July 07, 2025 10:38:00 AM UTC (TECH: MH2) 94940-0 Erythromycin >4.0 Systemic R Decembe r 2024 10:38:00 AM UTC (TECH: MH2) 35180-1 Gentamicin <= 4.0 Systemic S July 07, 2025 10:38:00 AM UTC (TECH: MH2) 94635-8 Oxacillin >2.0 Systemic R June 182024 10:38:00 AM UTC (TECH: MH2) 63073-5 Penicillin >8.0 Systemic R July 07, 2025 10:38:00 AM UTC (TECH: MH2) 65156-5 Rifampin <= 1.0 Systemic S June 182024 10:38:00 AM UTC (TECH: MH2) 22331-1 Tetracycline <= 4.0 Systemic S Decembe r 2024 10:38:00 AM UTC (TECH: MH2) 00171-9 Trimeth/Sulfa 0.5 Systemic S Decemb er 2024 10:38:00 AM UTC (TECH: MH2) 52953-1 Vancomycin 2.0 Systemic S July 07, 2025 10:38:00 AM UTC (TECH: MH2) BLOOD ADMIN RESULTS Information is not available TREATMENT PLAN DISCHARGE MEDICATIONS Status RXNORM Medication Dose Route Frequency Dates Comments U pdated By Continued 737506 Losartan Potassium Oral Tablet 100 MG 100 MG ORAL ONCE DAILY Prescribe d: July 05, 2025 1:21:51 PM UT [id number] on July 05, 2025 1:21:51 PM UT Continued 223744 DAPTOMYCIN 1000 MG INTRAVENOUS EVERY 24 HOURS Prescribe d: July 05, 2025 1:21:51 PM UTC 100 ML/HR 10 MG/KG FOR ENDOCARDIT IS ONLY [id number] on July 05, 2025 1:21:51 PM UTC Continued 131436 LORazepam Oral Tablet 1 MG 1 MG ORAL THREE TIMES A DAY Prescribe d: July 05, 2025 1:21:51 PM UTC [id number] on July 05, 2025 1:21:51 PM UT Continued 2597120 sodium chloride 0.9% 50 ML INTRAVENOUS EVERY 24 HOURS Prescribe d: July 05, 2025 1:21:51 PM UTC 100 ML/HR 10 MG/KG FOR ENDOCARDIT IS ONLY [id number] on July 05, 2025 1:21:51 PM UTC Continued 727864 Finasteride Oral Tablet 5 MG 5 MG ORAL ONCE DAILY Prescribe d: July 05, 2025 1:21:51 PM [facility] [id number] on July 05, 2025 1:21:51 PM [facility] Continued 510910 DULoxetine HCl Oral Capsule Delayed Release Particles 60 MG 60 MG ORAL ONCE DAILY Prescribe d: July 05, 2025 1:21:51 PM [facility] [id number] on July 05, 2025 1:21:51 PM [facility] Continued 3770321 Trelegy Ellipta Inhalation Aerosol Powder Breath Activated 100-62.5-25 MCG/ACT 1 PUF INHALED ONCE DAILY Prescribe d: July 05, 2025 1:21:51 PM [facility] [id number] on July 05, 2025 1:21:51 PM [facility] Continued 356273 Tamsulosin HCl Oral Capsule 0.4 MG 2 TAB ORAL ONCE DAILY Prescribe d: July 05, 2025 1:21:51 PM [facility] [id number] on July 05, 2025 1:21:51 PM [facility] Continued 583738 Singulair Oral Tablet 10 MG 10 MG ORAL ONCE DAILY Prescribe d: July 05, 2025 1:21:51 PM [facility] [id number] on July 05, 2025 1:21:51 PM [facility] Continued 081929 Pantoprazol e Sodium Oral Tablet Delayed Release 40 MG 40 MG ORAL ONCE DAILY Prescribe d: July 05, 2025 1:21:51 PM [facility] [id number] on July 05, 2025 1:21:51 PM [facility] Continued 716943 traZODone HCl Oral Tablet 150 MG 150 MG ORAL ONCE DAILY Prescribe d: July 05, 2025 1:21:51 PM [facility] [id number] on July 05, 2025 1:21:51 PM [facility] Continued 6603627 Percocet Oral Tablet 5-325 MG 5 MG ORAL EVERY FOUR HOURS NEEDED Prescribe d: July 05, 2025 1:21:51 PM [facility] [id number] on July 05, 2025 1:21:51 PM [facility] PATIENT OPEN ORDERS Code System Descripti on Frequency Occurrenc es Priority Category Start Date Ordering Physicia n Updated By 8100-0 [facility] Specimen preparati on [Type] of Unspecifi ed spec ONE TIME 0 Routine July 03, 2025 5:22:00 PM [facility] MARINO MARTÍNEZ [id number] on July 03, 2025 5:58:00 PM [facility] SCHEDULED PROCEDURES Code System Description Status Scheduled Date Upd ated By Patient scheduled procedure information is not available. MEDICATIONS HOME MEDICATIONS Status RXNORM [facility] Medication Dose Route Frequency Dates Comments Reported By Updated By Active 910906 48463 36152 0 DULoxetine HCl Oral Capsule Delayed Release Particles 60 MG 60.0 MG ORAL DAILY Last Dose: [facility] 2024 10:00: 00 PM [facility] [id number] on July 03, 2025 3:49:50 PM [facility] Active 622445 80003 85770 6 Finasteride Oral Tablet 5 MG 5.0 MG ORAL DAILY Last Dose: [id number] on June 27, 2025 4:37:32 PM UT Active 829316 34854 92218 1 LORazepam Oral Tablet 1 MG 1.0 MG ORAL TID Last Dose: [facility] 2024 1:00:0 0 PM [facility] [id number] on July 03, 2025 3:49:20 PM [facility] Active 549460 26265 21225 0 Losartan Potassium Oral Tablet 100 MG 100.0 MG ORAL DAILY Last Dose: [facility] 2024 3:30:0 0 AM [facility] [id number] on July 03, 2025 3:49:59 PM [facility] Active 369382 00583 91245 0 Pantoprazole Sodium Oral Tablet Delayed Release 40 MG 40.0 MG ORAL DAILY Last Dose: [id number] on June 27, 2025 4:37:40 PM [facility] Active 956857 02627 37116 3 Singulair Oral Tablet 10 MG 10.0 MG ORAL DAILY Last Dose: [facility] 2024 10:00: 00 PM [facility] [id number] on July 03, 2025 3:50:09 PM [facility] Active 670501 16038 99983 1 Tamsulosin HCl Oral Capsule 0.4 MG 2.0 TAB ORAL DAILY Last Dose: [facility] 2024 10:00: 00 PM [facility] [id number] on July 03, 2025 5:50:25 PM [facility] Active 658468 65492 47191 1 traZODone HCl Oral Tablet 150 MG 150.0 MG ORAL DAILY Last Dose: [facility] 2024 3:30:0 0 AM [facility] [id number] on July 03, 2025 3:50:33 PM [facility] Active 5490189 34992 33609 0 Trelegy Ellipta Inhalation Aerosol Powder Breath Activated 100-62.5-25 MCG/ACT 1.0 PUF INHALA TION DAILY Last Dose: [facility] 2024 1:00:0 0 PM UT [id number] on July 03, 2025 5:52:50 PM UT DISCHARGE MEDICATIONS Status RXNORM [facility] Medication Dose Route Frequency Dates Dis pense Data Comments Physician Updated By Continu ed [id number] 6603 5006 471 Losartan Potassium Oral Tablet 100 MG 100.0 MG ORAL ONCE DAILY Prescr ibed: [facility] 2024 1:21:5 1 PM UTC Fill Status = Unknown, Repeat Number = 0, Quantity = 0 AJ CM [id number] on July 05, 2025 1:21:51 PM UT Continu ed [id number] 3950 7004 350 DAPTOMYCIN 1000. 0 MG INTRAV ENOUS EVERY 24 HOURS Prescr ibed: [facility] 2024 1:21:5 1 PM UTC Fill Status = Unknown, Repeat Number = 0, Quantity = 0 100 ML/HR 10 MG/KG FOR ENDOCARDI TIS ONLY AJ CM [id number] on July 05, 2025 1:21:51 PM UT Continu ed [id number] 6461 2884 301 LORazepam Oral Tablet 1 MG 1.0 MG ORAL THREE TIMES A DAY Prescr ibed: [facility] 2024 1:21:5 1 PM UTC Fill Status = Unknown, Repeat Number = 0, Quantity = 0 AJ CM [id number] on July 05, 2025 1:21:51 PM UT Continu ed [id number] 5636 8004 941 sodium chloride 0.9% 50.0 ML INTRAV ENOUS EVERY 24 HOURS Prescr ibed: [facility] 2024 1:21:5 1 PM UTC Fill Status = Unknown, Repeat Number = 0, Quantity = 0 100 ML/HR 10 MG/KG FOR ENDOCARDI TIS ONLY AJ CM [id number] on July 05, 2025 1:21:51 PM UT Continu ed [id number] 8390 3735 556 Finasteride Oral Tablet 5 MG 5.0 MG ORAL ONCE DAILY Prescr ibed: [facility] 2024 1:21:5 1 PM UTC Fill Status = Unknown, Repeat Number = 0, Quantity = 0 AJ CM [id number] on July 05, 2025 1:21:51 PM [facility] Continu ed [id number] 9642 171 DULoxetine HCl Oral Capsule Delayed Release Particles 60 MG 60.0 MG ORAL ONCE DAILY Prescr ibed: [facility] 2024 1:21:5 1 PM UTC Fill Status = Unknown, Repeat Number = 0, Quantity = 0 AJ CM [id number] on July 05, 2025 1:21:51 PM [facility] Continu ed [id number] 1430 3088 710 Trelegy Ellipta Inhalation Aerosol Powder Breath Activated 100-62.5-25 MCG/ACT 1.0 PUF INHALE D ONCE DAILY Prescr ibed: [facility] 2024 1:21:5 1 PM UTC Fill Status = Unknown, Repeat Number = 0, Quantity = 0 AJ CM [id number] on July 05, 2025 1:21:51 PM [facility] Continu ed [id number] 8116 1207 601 Tamsulosin HCl Oral Capsule 0.4 MG 2.0 TAB ORAL ONCE DAILY Prescr ibed: [facility] 2024 1:21:5 1 PM UTC Fill Status = Unknown, Repeat Number = 0, Quantity = 0 AJ CM [id number] on July 05, 2025 1:21:51 PM [facility] Continu ed [id number] 0019 5016 403 Singulair Oral Tablet 10 MG 10.0 MG ORAL ONCE DAILY Prescr ibed: [facility] 2024 1:21:5 1 PM UTC Fill Status = Unknown, Repeat Number = 0, Quantity = 0 AJ CM [id number] on July 05, 2025 1:21:51 PM [facility] Continu ed [id number] 6444 1078 230 Pantoprazol e Sodium Oral Tablet Delayed Release 40 MG 40.0 MG ORAL ONCE DAILY Prescr ibed: [facility] 2024 1:21:5 1 PM UTC Fill Status = Unknown, Repeat Number = 0, Quantity = 0 AJ CM [id number] on July 05, 2025 1:21:51 PM UT Continu ed [id number] 7538 273 traZODone HCl Oral Tablet 150 MG 150.0 MG ORAL ONCE DAILY Prescr ibed: [facility] 2024 1:21:5 1 PM UTC Fill Status = Unknown, Repeat Number = 0, Quantity = 0 AJ CM [id number] on July 05, 2025 1:21:51 PM UT Continu ed [id number] Percocet Oral Tablet 5-325 MG 5.0 MG ORAL EVERY FOUR HOURS NEEDED Prescr ibed: [facility] 2024 1:21:5 1 PM UTC Fill Status = Unknown, Repeat Number = 0, Quantity = 0 AJ CM [id number] on July 05, 2025 1:21:51 PM [facility] INPATIENT MEDICATIONS Status RXNORM [facility] Medication Dose Route Frequency Rat e Quantity Dates Indication Dispense Data Comments Physician Updated By Discont inued [id number] 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 POPSWAB SWAB 1.0 EA NASAL ONE TIME ADMINISTRA TION (UNSCHEDUL ED) Start: [facility] 2024 11:00: 00 AM UTC End: [facility] 2024 3:48:2 3 PM UTC Fill Status = Completed , Repeat Number = 0, Quantity = 0.000 AJ CM [id number] on July 03, 2025 3:48:00 PM UTC Discont inued [id number] ceFAZolin (ANCEF) 2 GM SOLR 2.0 GM INTRAV ENOUS ONE TIME ADMINISTRA TION (UNSCHEDUL ED) Start: [facility] 2024 11:00: 00 AM UTC End: [facility] 2024 3:48:2 3 PM UTC Fill Status = Completed , Repeat Number = 0, Quantity = 0.000 AJ CM [id number] on July 03, 2025 3:48:00 PM UTC Discont inued [id number] LACTATED RINGERS SOLN 1000. 0 ML INTRAV ENOUS ONE TIME ONLY (PACU) 25.0 ML/HR Start: [facility] 2024 10:56: 00 PM UTC End: [facility] 2024 9:50:3 6 PM UTC Fill Status = Completed , Repeat Number = 0, Quantity = 0.000 HENRIK Vanessa [id number] on July 03, 2025 9:50:00 PM UTC Discont inued [id number] meperidine (DEMEROL) 25 MG/ML SOLN 12.5 MG INTRAV ENOUS NEEDED (PACU) Start: [facility] er 2024 10:56: 00 PM UTC End: [facility] er 2024 9:50:3 6 PM UTC Fill Status = Completed , Repeat Number = 0, Quantity = 0.000 HENRIK Vanessa [id number] on July 03, 2025 9:50:00 PM UTC Discont inued [id number] 0064 1624 725 fentaNYL (SUBLIMAZE) VIAL 50 MGC/ML SOLN 25.0 MCG INTRAV ENOUS EVERY 5 MINUTES NEEDED (PACU) Start: [facility] er 2024 10:56: 00 PM UTC End: [facility] er 2024 9:50:3 6 PM UTC Fill Status = Completed , Repeat Number = 0, Quantity = 0.000 HENRIK Vanessa [id number] on July 03, 2025 9:50:00 PM UTC Discont inued [id number] 0168 9426 401 HYDROmorpho ne (DILAUDID) 0.5 MG/0.5ML SOLN 0.5 MG INTRAV ENOUS EVERY 10 MINUTES NEEDED (PACU) Start: [facility] er 2024 10:56: 00 PM UTC End: [facility] er 2024 9:50:3 6 PM UTC Fill Status = Completed , Repeat Number = 0, Quantity = 0.000 HENRIK Vanessa [id number] on July 03, 2025 9:50:00 PM UTC Discont inued [id number] 3055 9128 331 HYDROmorpho ne (DILAUDID) 1 MG/ML SOLN 1.0 MG INTRAV ENOUS EVERY 10 MINUTES NEEDED (PACU) Start: [facility] er 2024 10:56: 00 PM UTC End: [facility] er 2024 9:50:3 6 PM UTC Fill Status = Completed , Repeat Number = 0, Quantity = 0.000 HENRIK Vanessa [id number] on July 03, 2025 9:50:00 PM UTC Discont inued [id number] 5458 5613 000 ondansetron (ZOFRAN) INJ 4 MG/2 ML SOLN 4.0 MG INTRAV ENOUS NEEDED (PACU) Start: [facility] 2024 10:56: 00 PM UTC End: [facility] 2024 9:50:3 6 PM UTC Fill Status = Completed , Repeat Number = 0, Quantity = 0.000 HENRIK Vanessa [id number] on July 03, 2025 9:50:00 PM UTC Discont inued [id number] 0051 7970 201 droperidol (INAPSINE) 2.5 MG/ML SOLN 0.625 MG INTRAV ENOUS NEEDED (PACU) Start: [facility] 2024 10:56: 00 PM UTC End: [facility] 2024 2:12:5 7 PM UTC Fill Status = Completed , Repeat Number = 0, Quantity = 0.000 HENRIK Vanessa [id number] on July 04, 2025 2:12:00 PM UTC Discont inued [id number] 6561 3041 112 midazolam (VERSED) 2 MG/2 ML SOLN 1.0 MG INTRAV ENOUS EVERY FIVE MINUTES NEEDED Start: [facility] 2024 10:56: 00 PM UTC End: [facility] 2024 9:50:3 6 PM UTC Fill Status = Completed , Repeat Number = 0, Quantity = 0.000 HENRIK Vanessa [id number] on July 03, 2025 9:50:00 PM UTC Discont inued 797331 6578 1092 825 promethazin e (PHENERGAN) 25 MG/ML SOLN 12.5 MG INTRAV ENOUS NEEDED (PACU) Start: [facility] 2024 10:56: 00 PM UTC End: [facility] 2024 9:50:3 6 PM UTC Fill Status = Completed , Repeat Number = 0, Quantity = 0.000 HENRIK Vanessa [id number] on July 03, 2025 9:50:00 PM UTC Discont inued XXXX [id number] 011 promethazin e (PHENERGAN) 12.5 MG GEL 12.5 MG TOPICA L NEEDED (PACU) Start: [facility] 2024 10:56: 00 PM UTC End: [facility] 2024 9:50:3 7 PM UTC Fill Status = Completed , Repeat Number = 0, Quantity = 0.000 HENRIK Vanessa [id number] on July 03, 2025 9:50:00 PM UTC Discont inued [id number] 8754 9909 332 PACU - fentaNYL (SUBLIMAZE) 100 MCG/2ML SOLN 100.0 MCG INTRAV ENOUS ONE TIME ONLY (SCHEDULED DOSE) Start: [facility] 2024 3:37:0 0 PM UTC End: [facility] 2024 3:37:0 0 PM UTC Fill Status = Completed , Repeat Number = 0, Quantity = 1.000 [facility] on July 03, 2025 3:36:00 PM UTC Discont inued 0490249 7773 3046 817 bupivacaine -MPF 0.25% w/EPI 10 ML SOLN 10.0 ML INTRAV ENOUS ONE TIME ONLY (SCHEDULED DOSE) Start: [facility] 2024 4:49:0 0 PM UTC End: [facility] 2024 4:49:0 0 PM UTC Fill Status = Completed , Repeat Number = 0, Quantity = 1.000 [facility] ED on July 03, 2025 4:48:00 PM UTC Discont inued [id number] 9262 3028 420 vancomycin (VANCOCIN) 1000 MG SOLR 1000. 0 MG INTRAV ENOUS ONE TIME ONLY (SCHEDULED DOSE) Start: [facility] 2024 5:23:0 0 PM UTC End: [facility] 2024 5:23:0 0 PM UTC Fill Status = Completed , Repeat Number = 0, Quantity = 1.000 [facility] ED on July 03, 2025 5:22:00 PM UTC Discont inued 793250 0595 6016 088 tamsulosin (FLOMAX) 0.4 MG CAPS 0.4 MG ORAL ONCE DAILY Start: [facility] 2024 2:00:0 0 PM UTC End: [facility] 2024 2:00:0 0 PM UTC Fill Status = Completed , Repeat Number = 0, Quantity = 0.000 YVETTE Stephen [id number] on July 03, 2025 6:56:00 PM UTC Discont inued [id number] 1403 3088 714 TRELEGY ELLIPTA 100-62.5-25 MCG/ACT AEPB 1.0 INH INHALE D ONCE DAILY Start: [facility] 2024 2:00:0 0 PM UTC End: [facility] 2024 1:21:5 1 PM UTC Fill Status = Completed , Repeat Number = 0, Quantity = 1.000 YVETTEIrais Stephen [id number] on July 06, 2025 5:25:00 AM UTC Discont inued Free Text Med Singulair Oral Tablet 10 MG 10.0 MG ORAL ONCE DAILY Start: [facility] 2024 2:00:0 0 PM UTC End: [facility] 2024 2:00:0 0 PM UTC Fill Status = Completed , Repeat Number = 0, Quantity = 0.000 YVETTE RIA T [id number] on July 03, 2025 6:54:00 PM UTC Discont inued Free Text Med traZODone HCl Oral Tablet 150 MG 150.0 MG ORAL ONCE DAILY Start: [facility] 2024 2:00:0 0 PM UTC End: [facility] 2024 2:00:0 0 PM UTC Fill Status = Completed , Repeat Number = 0, Quantity = 0.000 YVETTE LOZADA T [id number] on July 03, 2025 6:55:00 PM UTC Discont inued [id number] 5113 2070 290 losartan potassium (COZAAR) 100 MG TABS 100.0 MG ORAL ONCE DAILY Start: [facility] 2024 2:00:0 0 PM UTC End: [facility] 2024 7:39:0 0 PM UTC Fill Status = Completed , Repeat Number = 0, Quantity = 2.000 YVETTE LOZADA T [id number] on July 06, 2025 5:25:00 AM UTC Discont inued 814712 0512 4081 309 pantoprazol e (PROTONIX) 40 MG TBEC 40.0 MG ORAL ONCE DAILY Start: [facility] 2024 2:00:0 0 PM UTC End: [facility] 2024 7:39:0 0 PM UTC Fill Status = Completed , Repeat Number = 0, Quantity = 2.000 YVETTE LOZADA T [id number] on July 06, 2025 5:25:00 AM UTC Discont inued [id number] 5353008 8187 7825 001 finasteride (PROSCAR) 5 MG TABS 5.0 MG ORAL ONCE DAILY Start: [facility] 2024 2:00:0 0 PM UTC End: [facility] 2024 7:39:0 0 PM UTC Fill Status = Completed , Repeat Number = 0, Quantity = 2.000 YVETTE KIERRA T [id number] on July 06, 2025 5:25:00 AM UTC Discont inued 453689 8669 1024 105 LORazepam (ATIVAN) 1 MG TABS 1.0 MG ORAL THREE TIMES A DAY Start: [facility] 2024 7:00:0 0 PM UTC End: [facility] 2024 7:39:0 0 PM UTC Fill Status = Completed , Repeat Number = 0, Quantity = 6.000 YVETTE KIERRA T [id number] on July 06, 2025 5:25:00 AM UTC Discont inued Free Text Med DULoxetine HCl Oral Capsule Delayed Release Particles 60 MG 60.0 MG ORAL ONCE DAILY Start: [facility] 2024 2:00:0 0 PM UTC End: [facility] 2024 2:00:0 0 PM UTC Fill Status = Completed , Repeat Number = 0, Quantity = 0.000 YVETTE KIERRA T [id number] on July 03, 2025 6:55:00 PM UTC Discont inued 0586 0396 546 sodium chloride 0.9% FLUSH 10 ML SOLN 10.0 ML INTRAV ENOUS NEEDED Start: [facility] 2024 5:54:0 0 PM UTC End: [facility] 2024 1:21:5 1 PM UTC Fill Status = Completed , Repeat Number = 0, Quantity = 0.000 YVETTE KIERRA T [id number] on July 06, 2025 5:25:00 AM UTC Discont inued 6462915 6110 8010 250 PERCOCET 5-325 MG TABS 1.0 TAB ORAL EVERY FOUR HOURS NEEDED Start: [facility] 2024 5:54:0 0 PM UTC End: [facility] 2024 1:21:5 1 PM UTC Fill Status = Completed , Repeat Number = 0, Quantity = 0.000 YVETTE KIERRA T [id number] on July 06, 2025 5:25:00 AM UTC Discont inued 4851473 6332 9326 201 morphine sulfate (FK) 2 MG/ML SOLN 2.0 MG INTRAV ENOUS EVERY TWO HOURS NEEDED Start: [facility] 2024 5:54:0 0 PM UTC End: [facility] 2024 1:21:5 1 PM UTC Fill Status = Completed , Repeat Number = 0, Quantity = 0.000 YVETTE KIERRA T [id number] on July 06, 2025 5:25:00 AM UTC Discont inued 0090 3668 961 multiple vitamin (ONE-A-DAY) TABS 1.0 TAB ORAL ONCE DAILY Start: [facility] 2024 2:00:0 0 PM UTC End: [facility] 2024 1:21:5 1 PM UTC Fill Status = Completed , Repeat Number = 0, Quantity = 2.000 YVETTE KIERRA T [id number] on July 06, 2025 5:25:00 AM UTC Discont inued 0489862 0108 7053 901 docusate sodium (COLACE) 100 MG CAPS 100.0 MG ORAL EVERY TWELVE HOURS NEEDED Start: [facility] 2024 5:54:0 0 PM UTC End: [facility] 2024 1:21:5 1 PM UTC Fill Status = Completed , Repeat Number = 0, Quantity = 0.000 YVETTE KIERRA T [id number] on July 06, 2025 5:25:00 AM UTC Discont inued 0012 1043 130 MILK OF MAGNESIA 7.75 % 400 MG/5 ML SUSP 15.0 ML ORAL ONCE DAILY NEEDED Start: [facility] 2024 5:54:0 0 PM UTC End: [facility] 2024 1:21:5 1 PM UTC Fill Status = Completed , Repeat Number = 0, Quantity = 0.000 YVETTE KIERRA T [id number] on July 06, 2025 5:25:00 AM UTC Discont inued 276623 4873 4700 012 BISACODYL 10 MG SUPP 10.0 MG PER RECTUM - SPEECH LANGUAGE SPECIALIST AL ONCE DAILY NEEDED Start: [facility] 2024 5:54:0 0 PM UTC End: [facility] 2024 1:21:5 1 PM UTC Fill Status = Completed , Repeat Number = 0, Quantity = 0.000 YVETTE KIERRA T [id number] on July 06, 2025 5:25:00 AM UTC Discont inued 790231 3506 1039 708 famotidine (PEPCID) 20 MG TABS 20.0 MG ORAL TWICE A DAY Start: [facility] 2024 2:00:0 0 AM UTC End: [facility] 2024 1:21:5 1 PM UTC Fill Status = Completed , Repeat Number = 0, Quantity = 4.000 YVETTEIrais Stephen [id number] on July 06, 2025 5:25:00 AM UTC Discont inued 728948 3931 0041 501 cyclobenzap rine (FLEXERIL) 10 MG TABS 10.0 MG ORAL EVERY EIGHT HOURS NEEDED Start: [facility] 2024 5:54:0 0 PM UTC End: [facility] 2024 1:21:5 1 PM UTC Fill Status = Completed , Repeat Number = 0, Quantity = 1.000 YVETTE Stephen [id number] on July 06, 2025 5:25:00 AM UTC Discont inued 776261 2035 4018 901 zolpidem tartrate (AMBIEN) 5 MG TABS 5.0 MG ORAL AT BEDTIME NEEDED Start: [facility] 2024 2:00:0 0 AM UTC End: [facility] 2024 1:21:5 1 PM UTC Fill Status = Completed , Repeat Number = 0, Quantity = 0.000 YVETTE LOZADA T [id number] on July 06, 2025 5:25:00 AM UTC Discont inued 2434418 0040 9710 102 sodium chloride 0.9% SOLN 250.0 ML INTRAV ENOUS EVERY TWELVE HOURS 275.0 ML/HR Start: [facility] 2024 5:54:0 0 PM UTC End: [facility] 2024 8:27:0 4 PM UTC Fill Status = Completed , Repeat Number = 0, Quantity = 0.000 YVETTE Stephen [id number] on July 03, 2025 8:27:00 PM UTC Discont inued 081265 7921 4087 501 montelukast sodium (SINGULAIR) 10 MG TABS 10.0 MG ORAL ONCE DAILY Start: [facility] 2024 2:00:0 0 PM UTC End: [facility] 2024 7:39:0 0 PM UTC Fill Status = Completed , Repeat Number = 0, Quantity = 2.000 YVETTE Stephen [id number] on July 06, 2025 5:25:00 AM UTC Discont inued [id number] 8275 356 traZODone (DESYREL) 50 MG TABS 150.0 MG ORAL AT BEDTIME Start: [facility] 2024 2:00:0 0 AM UTC End: [facility] 2024 1:21:5 1 PM UTC Fill Status = Completed , Repeat Number = 0, Quantity = 6.000 YVETTE Stephen [id number] on July 06, 2025 5:25:00 AM UTC Discont inued 007341 7111 1009 809 DULoxetine (CYMBALTA) 30 MG CPEP 60.0 MG ORAL ONCE DAILY Start: [facility] 2024 2:00:0 0 PM UTC End: [facility] 2024 1:21:5 1 PM UTC Fill Status = Completed , Repeat Number = 0, Quantity = 4.000 YVETTE Stephen [id number] on July 06, 2025 5:25:00 AM UTC Discont inued [id number] 8436 1440 499 vancomycin (VANCOCIN) 1500 MG SOLR 1500. 0 MG INTRAV ENOUS EVERY TWELVE HOURS 250.0 ML/HR Start: [facility] 2024 9:00:0 0 PM UTC End: [facility] 2024 11:46: 38 AM UTC Fill Status = Completed , Repeat Number = 0, Quantity = 16.000 YVETTE Stephen [id number] on July 05, 2025 11:46:00 AM UTC Discont inued 0881747 9943 9020 901 PROPOFOL 200 MG/20ML EMUL 400.0 MG INTRAV ENOUS ONE TIME ONLY (SCHEDULED DOSE) 16.667 MG/HR Start: [facility] 2024 8:39:0 0 PM UTC End: [facility] 2024 8:40:5 5 PM UTC Fill Status = Completed , Repeat Number = 0, Quantity = 2.000 PICHARDO TANYA [id number] on July 03, 2025 8:41:00 PM UTC Discont inued 4897117 7943 3016 505 DEXAMETHASO NE SODIUM PHOSPHATE 20.0 MG INTRAV ENOUS ONE TIME ONLY (SCHEDULED DOSE) 0.833 MG/HR Start: [facility] 2024 8:39:0 0 PM UTC End: [facility] 2024 8:40:5 5 PM UTC Fill Status = Completed , Repeat Number = 0, Quantity = 1.000 MARINO TANYA [id number] on July 03, 2025 8:41:00 PM UTC Discont inued 5391568 0453 5619 000 ONDANSETRON HCL 4 MG/2ML SOLN 4.0 MG INTRAV ENOUS ONE TIME ONLY (SCHEDULED DOSE) 0.167 MG/HR Start: [facility] 2024 8:39:0 0 PM UTC End: [facility] 2024 8:40:5 5 PM UTC Fill Status = Completed , Repeat Number = 0, Quantity = 1.000 MARINO TANYA [id number] on July 03, 2025 8:41:00 PM UTC Discont inued 6729990 1041 5314 352 QUELICIN 20 MG/ML SOLN 200.0 MG INTRAV ENOUS ONE TIME ONLY (SCHEDULED DOSE) 8.333 MG/HR Start: [facility] 2024 8:39:0 0 PM UTC End: [facility] 2024 8:40:5 5 PM UTC Fill Status = Completed , Repeat Number = 0, Quantity = 1.000 MARINO TANYA [id number] on July 03, 2025 8:41:00 PM UTC Discont inued 5026 6901 101 PHENYLEPHRI NE HCL (PRESSORS) 1 1.0 MG INTRAV ENOUS ONE TIME ONLY (SCHEDULED DOSE) 0.042 MG/HR Start: [facility] 2024 8:39:0 0 PM UTC End: [facility] 2024 8:40:5 5 PM UTC Fill Status = Completed , Repeat Number = 0, Quantity = 1.000 MARINO TANYA [id number] on July 03, 2025 8:41:00 PM UTC Discont inued 275725 2898 7460 525 GLYCOPYRROL ATE 1 MG/5ML SOLN 1.0 MG INTRAV ENOUS ONE TIME ONLY (SCHEDULED DOSE) 0.042 MG/HR Start: [facility] 2024 8:39:0 0 PM UTC End: [facility] 2024 8:40:5 5 PM UTC Fill Status = Completed , Repeat Number = 0, Quantity = 1.000 MARINO [id number] on July 03, 2025 8:41:00 PM UTC Discont inued 9729193 9944 9490 202 LIDOCAINE HCL (PF) 2 % SOLN 10.0 ML ONE TIME ONLY (SCHEDULED DOSE) Start: [facility] 2024 8:39:0 0 PM UTC End: [facility] 2024 8:40:5 5 PM UTC Fill Status = Completed , Repeat Number = 0, Quantity = 1.000 MARINO MARTÍNEZ [id number] on July 03, 2025 8:41:00 PM UTC Discont inued 8025127 3507 7024 110 cefepime (MAXIPIME) 2 GM SOLR 2.0 GM INTRAV ENOUS EVERY TWELVE HOURS 25.0 ML/HR Start: [facility] 2024 1:00:0 0 PM UTC End: [facility] 2024 11:46: 38 AM UTC Fill Status = Completed , Repeat Number = 0, Quantity = 14.000 JOSE Stephen [id number] on July 05, 2025 11:46:00 AM UTC Discont inued 7066786 8951 4033 009 potassium chloride (K-DUR) 20 MEQ TBCR 40.0 MEQ ORAL GIVE ONE DOSE NOW Start: [facility] 2024 6:18:0 0 PM UTC End: [facility] 2024 6:34:4 6 PM UTC Fill Status = Completed , Repeat Number = 0, Quantity = 2.000 KYLEIGH TORRES [id number] on July 04, 2025 6:34:00 PM UTC Discont inued 748771 6775 3065 401 hydrALAZINE (APRESOLINE ) 20 MG/ML SOLN 10.0 MG INTRAV ENOUS GIVE ONE DOSE NOW Start: [facility] 2024 8:30:0 0 AM UTC End: [facility] 2024 8:40:1 2 AM UTC Fill Status = Completed , Repeat Number = 0, Quantity = 1.000 YOLIS BRYANT [id number] on July 05, 2025 8:40:00 AM UTC Discont inued 9969409 6745 7081 350 DAPTOMYCIN 500 MG SOLR 1000. 0 MG INTRAV ENOUS EVERY 24 HOURS 100.0 ML/HR Start: [facility] er 2024 5:00:0 0 PM UTC End: [facility] 2024 7:39:0 0 PM UTC Fill Status = Completed , Repeat Number = 0, Quantity = 6.000 JOSE Stephen [id number] on July 06, 2025 5:25:00 AM UT SOCIAL HISTORY SOCIAL HISTORY - Smoking Status SNOMED-CT Social History Element Description Effective Dates Offered Cessation Comment Updated By [id number] Current Tobacco smoking status Former Smoker [id number] on June 27, 2025 4:39:10 PM UT SOCIAL HISTORY - Gender Sex: Male SOCIAL HISTORY - Status : status i nformation is not available Intention in Next Year: intention information is not available SOCIAL HISTORY - Assessments Code System Description Status Date Value of Assessment Updated By Comment Assessment Information is no t available SOCIAL HISTORY - Pic[place]une Affiliation Picayune information is not av ailable SOCIAL HISTORY [...] for each vital sign as of July 09, 2025 3:18:25 PM UT Loinc Code Vital Sign Activity Date Result Updated By 8302-2 Body height July 03 3:48:50 PM UTC 172.72 cm (68.0 in) [id number] on July 03, 2025 3:48:50 [place] [address]-0 Body mass index (BMI ) [Ratio] July 03, 2025 3:48:50 PM UTC 39.052 kg/m2 [id number] on July 03, 2025 3:48:50 PM UT 3140-1 Body Surface Area Derived From Formula July 03, 2025 3:48:50 PM UTC 2.2732 m2 [id number] on July 03, 2025 3:48:50 PM UT 8310-5 Body temperature July 05 5:16:00 PM UT 97.6 [degF] [id number] on July 05, 2025 8:09:50 PM UTC 17842-0 Body weight Measured June 3:48:50 PM UTC 116.5 kg (257.0 lb) [id number] on July 03, 2025 3:48:50 PM UTC 8462-4 Diastolic blood pressure July 05, 2025 5:49:00 PM UTC 102.0 mm[Hg] [id number] on July 05, 2025 5:49:36 PM UTC 8867-4 Heart rate July 05 5:52:00 PM UTC 84 /min [id number] on July 05, 2025 5:52:47 PM UTC 8478-0 Mean blood pressure July 05, 2025 4:59:00 AM UTC 127.0 mm[Hg] [id number] on July 05, 2025 4:59:31 AM UTC 27636-6 Oxygen saturation in Arterial blood by Pulse oximetry July 05, 2025 5:16:00 PM UTC 96.0 % [id number] on July 05, 2025 8:09:50 PM UTC 9279-1 Respiratory rate July 05 5:16:00 PM UTC 20 /min [id number] on July 05, 2025 8:09:50 PM UTC 8480-6 Systolic blood pressure July 05, 2025 5:49:00 PM UTC 181.0 mm[Hg] [id number] on July 05, 2025 5:49:36 PM UTC 04703-4 Vital capacity [Volume] Respiratory system by Spirometry July 05, 2025 1:45:00 PM UTC 1250.0 ml [id number] on July 05, 2025 4:39:43 PM UT PEDIATRIC GROWTH CHART - VITAL SIGNS This section displays Head C ircumference Percentile, Weight for Length Percentile and BMI Percentile Loinc Code Pediatric Measure Age (Months) Result Updat ed By No Pediatric Growth Chart Pe rcentile Information Available. ENCOUNTERS ENCOUNTER INFORMATION Reason for Visit REVISION OF SCS AUBRIE ROGLE IN LEFT BUTTOCK Admission July 04, 2025 6:08:00 PM UTC [facility] [address] [facility] [address] Discharge July 05, 2025 7:39:00 PM UT DISCHARGED TO HOME OR SELF CARE ENCOUNTER DIAGNOSES Notes information is not christa ilable. Code System Diagnosis Onset Date Diagnosis information is not available. 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 [id number] on July 08, 2025 3:13:33 PM UTC I10 ICD10 ESSENTIAL (PRIMA RY) HYPERTENSION [id number] on July 08, 2025 3:13:33 PM UT E66.9 ICD10 OBESITY, UNSPECIFIED [id number] on July 08, 2025 3:13:33 PM UT F41.9 ICD10 ANXIETY DISORDER, UNSPECIFIE D [id number] on July 08, 2025 3:13:33 PM UT K21.9 ICD10 GASTRO-ESOPHAGEA L REFLUX DISEASE WITHOUT ESOPHAGITIS [id number] on July 08, 2025 3:13:33 PM UTC E78.5 ICD10 HYPERLIPIDEMIA, UNSPECIFIED [id number] on July 08, 2025 3:13:33 PM UT Z87.891 ICD10 PERSONAL HISTORY OF NICOTINE DEPENDENCE [id number] on July 08, 2025 3:13:33 PM UT F39 ICD10 UNSPECIFIED MOOD [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 [id number] on July 08, 2025 3:13:33 PM UT G89.29 ICD10 OTHER CHRONIC PAIN [id number] o n July 08, 2025 3:13:33 PM UTC M54.9 ICD10 DORSALGIA, UNSPECIFIED [id number] 11 on July 08, 2025 3:13:33 PM UTC F32.A ICD10 DEPRESSION, UNSPECIFIED [id number] 811 on July 08, 2025 3:13:33 PM UT A49.01 ICD10 METHICILLIN SUSC EPTIBLE STAPHYLOCOCCUS AUREUS INFECTION, UNSPECIFIED SITE [id number] on July 08, 2025 3:13:33 PM UTC Z68.39 ICD10 BODY MASS INDEX [BMI] 39.0-39.9, ADULT [id number] on July 08, 2025 3:13:33 PM UTC CARE TEAM Care Fishing Captain Role TANYA PICHARDO Admitting MILAGRO PEÑA Primary Attending TANYA PICHARDO Consulting MILAGRO PEÑA Consulting LANDON GARCIA Consulting SHARMIN WHITAKER Primary Care TANYA PICHARDO Surgeon HOSPITAL DISCHARGE INSTRUCTION DISCHARGE INSTRUCTION Encounter [id number] Admit Date July 04, 2025 6: 08:00 PM UTC Discharge Date July 05, 2025 7: 39:00 PM UT PATIENT EDUCATION SUMMARY Patient/Visit Information: Patient Name: ISATU YANEZ Diag: Attending Caregiver: MARIANA HUMPHREY Discharge Instruction Sheets Provided: Medication Side Effects Suicide - Managing your Feelings Dr. Pichardo Spinal Cord Stimulator Fall Prevention in Hospitals and in the Home Anesthesia, [facility] DC Instructions After BEFAST-Stroke Warning Signs Discharge Information [facility] - Medication Management KYNECT- HELP Chronic Back Pain, [id number] Patient Instructions: Followup Appointments/Instructions: CONSULTATION NOTE DISCHARGE SUMMARY NOTE DISCHARGE SUMMARY NOTE Note Title Dr. Garcia Infusion Orders for Home Health Date Of Service July 05, 2025 12 :18:23 PM UT Created By [id number] on July 05, 2025 12:18:23 PM UTC Signed By DAVON on July 05, 2025 12:19:30 PM [facility] Dr. Garcia Office Informati on [facility] Infectious Disease LANDON GARCIA MD [address] [place] [address], [address] [place] [address] Diagnosis Spinal stimulator infection Antibiotic dose, frequency, and duration Daptomycin 1000 mg intravenously Q 24 hours through 08/15/24. Weekly labs to be drawn and faxed weekly to Dr. Garcia at [phone] Total CK, CRP, ESR, CMP, CBC PICC line dressing weekly Home health for PICC line dressing changes (weekly) and IV antibiotic instructions. THANH Kit THANH kit to be supplied to patient (home health instruct on use) Electronically signed by JOSE DAMON on 0719 PROGRESS NOTE CARE TEAM CARE music specialist Role on Team Location Telecom Status Start Date End Mick e Updated By MARINO DAMON Surgeon [address] [place] [address], [phone] normal July 05, 2025 6:00:00 AM UTC July 05, 2025 7:39:00 PM UTC [id number] on July 08, 2025 3:14:00 PM UTC MARIANA ISMAEEL [facility] [address] [place], [address] normal July 04, 2025 5:54:31 PM UTC July 05, 2025 7:39:00 PM UTC [id number] on July 08, 2025 3:14:00 PM UTC JOSE Stephen [facility] [address] [facility] [address], [place], [address] normal July 03, 2025 6:55:39 PM UTC July 05, 2025 7:39:00 PM UTC [id number] on July 08, 2025 3:14:00 PM UTC MARIANA ISSOLANGEL PHY Attending [address] [place] [address], [address] normal July 03, 2025 6:53:21 PM UTC July 04, 2025 5:00:00 AM UTC [id number] on July 08, 2025 3:14:00 PM UTC PICHARDO TANYA PHY Consulting [address] [facility], [place], [address] normal July 03, 2025 6:11:50 PM UTC July 05, 2025 7:39:00 PM UTC [id number] on July 08, 2025 3:14:00 PM UTC SHERMAN Mendoza PCP [address] [facility] [place], [address] normal June 17, 2025 7:33:53 PM UTC July 04, 2025 6:08:26 PM UTC [id number] on July 08, 2025 3:14:00 PM UTC PICHARDO TANYA PHY Attending [address] [place], [address] normal June 17, 2025 7:33:53 PM UTC July 03, 2025 6:53:21 PM UTC [id number] on July 08, 2025 3:14:00 PM UTC PICHARDO TANYA PHY Admitting [address] [place], [address] normal June 17, 2025 7:33:53 PM UTC July 04, 2025 5:00:00 AM [facility] [id number] on July 08, 2025 3:14:00 PM [facility] INSURANCE PROVIDERS INSURANCE PROVIDER Coverage Status - Effective Date Coverage Type Payor Plan Order Relationship To Subscriber Insurance Plan No Insurance Plan 2027-07-18 M PRIMARY 18 [id number] MEDICARE 2027-07-18 C SECONDARY [id number] [facility]
--- OUTSIDE RECORDS SUMMARY | 2025-07-09 10:29 | XMS_ITS | Clinical Summary ---
Author Organization [employer] ([place], [place], [place], [place], [place]) Address [address] [place] [address] Care Team Providers Care Body Trimmer Upholsterer Name Role Phone Maya Torres APRN Primary Care Provider +1- [phone] Allergies No known active allergies Medications traZODone [...] Date Jan rded Speak language other than Italian at home Not on file 08/04/2023 Want [...] 04/24/2019, 2017 Insurance MEDICARE PART A B [facility] Care Teams Body Trimmer Upholsterer Relationship Specialty Start Date End Date Maya Torres, PRODUCT SAFETY SPECIALIST [address] [address] PCP - General Family Medicine 08/27/22
--- OUTSIDE RECORDS SUMMARY | 2025-07-09 10:29 | XMS_ITS ---
Care Plan - [facility], [facility] Created on: July 09, 2025 Stephane Mendieta : 1950 Sex: Male Author Organization [facility] Address [address] [place] [address] Phone Care Team Providers Care Wave Soldering Machine Operator Name Role Phone Jose Cruz COLEMAN, Domingo Jett Unavailable + [phone] Olga Licea APRN Unavailable [phone]
--- OUTSIDE RECORDS SUMMARY | 2025-07-09 10:29 | XMS_ITS | Encounter Summary ---
Author Organization [employer] ([place], [place], [place], [place], [place]) Address [address] [place] [address] Care Team Providers Care Visual Artist Name Role Phone Maya Torres SIMI Primary Care Provider +1- [phone] Encounter Details Date Type Department Care Team (Late st Contact Info) Description 10/27/2020 Transcribed Document [facility] [place] Medicine [facility] [place] [address] ProviderJean MD [address] [place] [id number] Social History Tobacco Use Types Packs/Day Years [...] EDT Height Source Stated Height Entry Format Isabella Height/Length, GRENADIAN (ft) 5 ft Height/Length GRENADIAN 8 Inch CLINICALHEIGHT 172.72 cm Dupont Body Weight 67.45 kg Weight Source, ED Critical estimated dosing weight Weight Entry Format Isabella Weight [place] Citizen lb 250 lb CLINICALWEIGHT 113.64 kg Body [...] Color Yellow Urine Appearance Clear Urine Specific Pheba 1.006 Urine pH Dipstick 6.5 Urine Leukocyte [...] % LOW ALYC # 1 K/uL NA Cottle Percent Man 2 % LOW Eos Percent Man 1 % Baso Percent Man 1 % Myelo Percent Man 2 % HI RBC Morphology Normal Platelet Ct Estimate Adequate Slide Review Add Diff Man PT 9.9 Second(s) INR 0.9 PTT 25.2 Second(s) Procalcitonin <0.25 ng/mL SARS-CoV-2 (COVID19 PCR) Negative . Radiology results: Radiology Results (Last 48 hours) [id number] -- 10/27/2020 11:59 CT Abdomen Pelvis W [...] on filedocumented in this encounter Care Teams Visual Artist Relationship Specialty Start Date End Date Maya Torres, ENGINEERING TEAM SUPERVISOR [address] [address] PCP - General Family Medicine 08/27/22 documented as of this encounter
--- OUTSIDE RECORDS SUMMARY | 2025-07-09 10:29 | XMS_ITS | Referral Summary ---
Author Organization [employer] ([place], [place], [place], [place], [place]) Address [address] [place] [address] Care Team Providers Care Carburetor Rebuilder Name Role Phone Maya Torres APRN Primary Care Provider +1- [phone] Allergies No known active allergies Medications traZODone [...] Date Jan rded Speak language other than Macedonian at home Not on file 08/04/2023 Want [...] on file Insurance MEDIC[facility] Care Teams Carburetor Rebuilder Relationship Specialty Start Date End Date Maya Torres, 911 OPERATOR [address] [phone] PCP - General Family Medicine 08/27/22
--- OUTSIDE RECORDS SUMMARY | 2025-07-09 10:29 | XMS_ITS | Encounter Summary ---
Author Organization [employer] ([place], [place], [place], [place], [place]) Address [address] [place] [address] Care Team Providers Care Corn Sheller Name Role Phone Maya Torres Reji BELCHER Primary Care Provider +1- [phone] Encounter Details Date Type Department Care Team (Late st Contact Info) Description 10/27/2020 Transcribed Document [facility] [place] Family [place] [facility] [address] ProviderJean MD [address] [place] [address] Social History Tobacco Use Types [...] filedocumented in this encounter Care Teams Corn Sheller Relationship Specialty Start Date End Date Maya Torres, WEAVER TIRE CORD [address] [phone] PCP - General Family Medicine 08/27/22 documented as of this encounter
--- OUTSIDE RECORDS SUMMARY | 2025-07-09 10:29 | XMS_ITS | Encounter Summary ---
Author Organization [employer] ([place], [place], [place], [place]) Address [address] [place] [address] Care Team Providers Care Entry Level Machine Operator Name Role Phone Maya Torres Reji BELCHER Primary Care Provider +1- [phone] Encounter Details Date Type Department Care Team (Late st Contact Info) Description 10/27/2020 Transcribed Document [facility] [place] [address] [place] [address] ProviderJean MD [address] [place] [address] Social History Tobacco Use Types [...] 10/27/2020 12:55:00 EDT fentaNYL,50mcg IV Push,Left Antecubital [place] Pain Assessment Pain Scale Used : 0-10 [...] on filedocumented in this encounter Care Teams Entry Level Machine Operator Relationship Specialty Start Date End Date Maya Torres, BODY PRESS OPERATOR [address] [address] PCP - General Family Medicine 08/27/22 documented as of this encounter
--- OUTSIDE RECORDS SUMMARY | 2025-07-09 10:29 | XMS_ITS | Encounter Summary ---
Author Organization [employer] ([place], [place], [place], [place], [place]) Address [address] [place] [address] Care Team Providers Care Imaging Nurse Name Role Phone Maya Torres APRN Primary Care Provider +1- [phone] Encounter Details Date Type Department Care Team (Late st Contact Info) Description 10/30/2020 Transcribed Document [facility] [place] [facility] [place] [address] ProviderJean MD [address] [place] [address] Social History Tobacco Use Types [...] on filedocumented in this encounter Care Teams Imaging Nurse Relationship Specialty Start Date End Date Maya Torres APRN [address] [facility] [address] [place] [address] PCP - General Family Medicine 08/27/22 documented as of this encounter
--- OUTSIDE RECORDS SUMMARY | 2025-07-09 10:29 | XMS_ITS | Encounter Summary ---
Author Organization [employer] ([place], [place], [place], [place], [place]) Address [address] [place] [address] Care Team Providers Care Astrochemist Name Role Phone Maya Torres Reji BELCHER Primary Care Provider +1- [phone] Encounter Details Date Type Department Care Team (Late st Contact Info) Description 10/27/2020 Transcribed Document [facility] [place] [facility] [place] [address] ProviderJean MD [address] [place], [place] [address] Social History Tobacco Use Types Packs/Day Years [...] on filedocumented in this encounter Care Teams Astrochemist Relationship Specialty Start Date End Date Maya Torres, COLD WORKING SUPERVISOR [address] [address] PCP - General Family Medicine 08/27/22 documented as of this encounter
--- OUTSIDE RECORDS SUMMARY | 2025-07-09 10:29 | XMS_ITS | Encounter Summary ---
Author Organization [employer] ([place], [place], [place], [place], [place]) Address [address] [place] [address] Care Team Providers Care Electronics Research Engineer Name Role Phone Maya Torres Reji BELCHER Primary Care Provider +1- [phone] Encounter Details Date Type Department Care Team (Late st Contact Info) Description 10/27/2020 Transcribed Document [facility] [place] [address] [place] [address] ProviderJean MD [address] [place] [address] Social History Tobacco Use Types [...] Sawant MD - 10/27/2020 6:36 PM CDT [facility] [place], [place] [id number] ISATU MENDIETA :1950 Visit Time:10/27/2020 Your Visit [...] to 3 days Where: [place] [address] [facility] (1) Allergies No Known Medication Allergies Immunizations [...] 24HR 55 mcg/ inh nasal spray) 1 Gause(s) Nasal Two Times A Day The home [...] and 14.9 ) ANC #: 12 K/uL Dickens Percent Man: 2 % -- Normal range [...] ) Urine Bilirubin Dipstick: Negative Urine Specific Stone[place]: 1.006 -- Normal range between ( 1.005 [...] or lying down. General instructions ??? Take qdhk-dkw-pcrlchf and prescription medicines only as told by [...] compression, and elevation. You may be given ijrp-gsz-gszdise medicines for pain. ??? Contact a health [...] provider. Document Revised: 02/22/2019 Document Reviewed: 02/22/2019 [employer] Patient Education ?? 2020 [employer]. Emergency Awareness and Preventative Care STROKE is [...] Assistance with quitting is available by contacting 6-163-SYLT-NOW. This is a free resource providing counseling, [...] was given the opportunity to ask questions. Patient/Correction Lieutenant Name: Patient/Correction Lieutenant Signature: Relationship to Patient: Clinician/Hospital Correction Lieutenant Signature: Please Provide a Telephone Number Where You Can Be Reached: Is it Permissible To Leave a Message? Date: documented in this encounter Plan of Treatment Not on file documented as of this encounter Visit Diagnoses Not on filedocumented in this encounter Care Teams Electronics Research Engineer Relationship Specialty Start Date End Date Maya Torres, SIMI [address] [phone] PCP - General Family Medicine 08/27/22 documented as of this encounter
--- OUTSIDE RECORDS SUMMARY | 2025-07-09 10:29 | XMS_ITS | Encounter Summary ---
Author Organization [employer] ([place], [place], [place], [place], [place]) Address [address] [place] [address] Care Team Providers Care Glassware Finisher Name Role Phone Maya Torres Reji BELCHER Primary Care Provider +1- [phone] Encounter Details Date Type Department Care Team (Late st Contact Info) Description 10/27/2020 Transcribed Document [facility] [place] Family Medicine [address] [place] [address] ProviderJean MD [address] [place] [address] Social History Tobacco Use Types [...] on filedocumented in this encounter Care Teams Glassware Finisher Relationship Specialty Start Date End Date Maya Torres, MOLDING LINE OPERATOR [address] [phone] PCP - General Family Medicine 08/27/22 documented as of this encounter
--- OUTSIDE RECORDS SUMMARY | 2025-07-09 10:29 | XMS_ITS | Encounter Summary ---
Author Organization [employer] ([place], [place], [place], [place], [place]) Address [address] [place] [address] Care Team Providers Care Instrument Mechanic Name Role Phone Maya Torres Reji BELCHER Primary Care Provider +1- [phone] Encounter Details Date Type Department Care Team (Late st Contact Info) Description 10/27/2020 Transcribed Document [facility] [place] [address] [place] [address] ProviderJean MD [address] [place] [address] Social History Tobacco Use Types [...] on filedocumented in this encounter Care Teams Instrument Mechanic Relationship Specialty Start Date End Date Maya Torres, CARPET CLEANING TECHNICIAN [address] [phone] PCP - General Family Medicine 08/27/22 documented as of this encounter
--- OUTSIDE RECORDS SUMMARY | 2025-07-09 10:29 | XMS_ITS | Encounter Summary ---
Author Organization [employer] ([place], [place], [place], [place], [place]) Address [address] [place] [address] Care Team Providers Care Geological Engineering Teacher Name Role Phone Maya Torres Reji BELCHER Primary Care Provider +1- [phone] Encounter Details Date Type Department Care Team (Late st Contact Info) Description 10/27/2020 Transcribed Document [facility] [place] Family Medicine [address] [place] [address] ProviderJean MD [address] [place], [place] [id number] Social History Tobacco Use Types Packs/Day Years Used Date Smoking Tobacco: Never Assessed Sex and Gender Information Value Date Recorded Sex Assigned at Not on file Legal Sex Male 5:19 PM CDT Gender Identity Not on file Sexual Orientation Not on file documented as of this encounter Miscellaneous Notes * [employer] Conversion Note - Jean ProviderMD - 10/27/2020 11:59 AM CDT [place] Suicide Severity Rating Scale (C-SSRS) Entered On: 10/27/2020 12:32 EDT Performed On: 10/27/2020 12:21 EDT by Jasmin Thornton RN [place] Suicide Severity Rating Scale (C-SSRS) CSSRS Past [...] on filedocumented in this encounter Care Teams Geological Engineering Teacher Relationship Specialty Start Date End Date Maya Torres, BLOW MOLD MACHINE OPERATOR [address] [phone] PCP - General Family Medicine 08/27/22 documented as of this encounter
--- OUTSIDE RECORDS SUMMARY | 2025-07-09 10:29 | XMS_ITS | Encounter Summary ---
Author Organization [employer] ([place], [place], [place], [place], [place]) Address [address] [place] [address] Care Team Providers Care Cylinder Batcher Name Role Phone Maya Torres Reji BELCHER Primary Care Provider +1- [phone] Encounter Details Date Type Department Care Team (Late st Contact Info) Description 10/27/2020 Transcribed Document [facility] [place] Family Medicine [facility] [place] [address] ProviderJean MD [address] [place] [address] Social History Tobacco Use Types [...] 12:04 EDT by Alina Easley Flex Team service advisor Triage Across the Room Chief Complaint : [...] Tetanus Immunization : Less than 5 years Steam Distribution Supervisor Needed : No Alina Easley Flex Team [...] Problems(Active) At risk for sleep apnea (IMO :05373713 ) Name of Problem: At risk for sleep apnea ; Recorder: SYSTEM, SYSTEM; Confirmation: Confirmed ; Classification: Medical ; Code: [id number] ; Last Updated: 06/16/2018 8:18 EST ; Life Cycle Date: 06/16/2018 ; Life Cycle Status: Active ; Vocabulary: IMO Enlarged prostate (SNOMED CT :342836482 ) Name of Problem: Enlarged prostate ; Recorder: Shavonne Jimenez RN; Confirmation: Confirmed ; Classification: Medical ; Code: [id number] ; Contributor System: PowerChart ; Last Updated: 06/16/2018 8:22 EST ; Life Cycle Date: 06/16/2018 ; Life Cycle Status: Active ; Vocabulary: SNOMED CT Hypertension (SNOMED CT :4621984960 ) Name of Problem: Hypertension ; Recorder: Shavonne Jimenez RN; Confirmation: Confirmed ; Classification: Medical ; Code: [id number] ; Contributor System: PowerChart ; Last Updated: 06/16/2018 8:21 EST ; Life Cycle Date: 06/16/2018 ; Life Cycle Status: Active ; Vocabulary: SNOMED CT Seasonal allergies (SNOMED CT :0258150018 ) Name of Problem: Seasonal allergies ; Recorder: Shavonne Jimenez RN; Confirmation: Confirmed ; Classification: Medical ; Code: [id number] ; Contributor System: [employer]Chart ; Last Updated: 06/16/2018 8:22 EST ; Life Cycle Date: 06/16/2018 ; Life Cycle Status: Active ; Vocabulary: SNOMED CT Diagnoses(Active) Medical screening exam Date: 10/27/2020 ; Diagnosis Type: Reason For Visit ; Confirmation: Complaint of ; Clinical Dx: Medical screening exam ; Classification: Medical ; Clinical Service: Non-Specified ; Code: PNED ; Probability: 0 ; Diagnosis Code: [id number] ED Height and Weight Height Source : Stated Height Entry Format : Angelina Height, Feet : 5 ft(Converted to: 152 cm, 60 Inch) Height, Inches : 8 Inch(Converted to: 0 ft 8 Inch, 20.32 cm) Clinical Height : 172.72 cm Weight Source, ED : Critical estimated dosing weight Weight Entry Format : Angelina Weight, Pounds : 250 lb Clinical Dosing Weight : 113.64 kg Body Surface Area (BSA) : 2.25 m2 Body Mass Index : 38.1 kg/m2 (HI) [place] Body Weight (IBW) : 67.45 kg Alina [...] the text rendition version of the form. Electronically signed by Becky Tejeda Conversion Smooth And Burr Worker [employer]posites Cerner at 11/04/2022 3:20 PM CDT documented in this encounter Plan of Treatment Not on file documented as of this encounter Visit Diagnoses Not on filedocumented in this encounter Care Teams Cylinder Batcher Relationship Specialty Start Date End Date Maya Torres, MANAGER PAYROLL [address] [phone] PCP - General Family Medicine 08/27/22 documented as of this encounter
--- OUTSIDE RECORDS SUMMARY | 2025-07-09 10:29 | XMS_ITS | Clinical Summary ---
Author Organization [facility] Address [address] [place] [address] Care Team Providers Care Clerk Entry Level Name Role Phone Unavailable Primary Care Provider [...]
--- OUTSIDE RECORDS SUMMARY | 2025-07-09 10:29 | XMS_ITS | Encounter Summary ---
Author Organization [employer] ([place], [place], [place], [place], [place]) Address [address] [place] [address] Care Team Providers Care Bakery Manager Name Role Phone Maya Torres APRN Primary Care Provider +1- [phone] Encounter Details Date Type Department Care Team (Late st Contact Info) Description 10/27/2020 Transcribed Document [facility] [place] [address] [place] [address] ProviderJean MD [address] [place] [address] Social History Tobacco Use Types [...] 10/27/2020 6:32 PM CDT Electronically signed by [facility] Conversion Site Planner Cerner at 11/04/2022 3:28 PM CDT documented in this encounter Plan of Treatment Not on file documented as of this encounter Visit Diagnoses Not on filedocumented in this encounter Care Teams Bakery Manager Relationship Specialty Start Date End Date Maya Torres APRN [address] [facility] [address] [place] [phone] PCP - General Family Medicine 08/27/22 documented as of this encounter
--- OUTSIDE RECORDS SUMMARY | 2025-07-09 10:30 | XMS_ITS | Clinical Summary ---
Author Organization [facility] Address [address] [place] [address] Phone Care Team Providers Care Threader Name Role Phone Jose Cruz COLEMAN, Domingo Jett Unavailable [phone] Olga Licea APRN Unavailable [phone] Reason for Visit and Chief Complaint [Patient Encounter] Problems Includes: Problems addressed during this encounter and other active Problems All Visits Onset Date Date of Diagnosis Resolved Date Provider Condition Status Soft Tissue Pain Hand 12/05/2024 12/05/2024 Flako Pulido PA-C Active Last Documented On 5 1:43AM ; [facility], [facility] History of Lower Back Pain M idline Right Side 04/12/2022 04/12/2022 Holden Modi PA-C Active Last Documented On 5 1:41AM ; [facility], [facility] Joint Pain Left Thumb 03/12/2021 03/12/2021 Charles Hernandez MD Active Last Documented On 5 1:40AM ; [facility], [facility] Joint Pain in Both Knees 04/05/2019 04/05/2019 Arlet Billingsley MD Active Last Documented On 5 1:39AM ; [facility], [facility] Plan of Treatment Future Appointments Date Time Location Provi [place] Post Op 07/19/2025 11:00AM [facility] Holden Modi PA-C Last Documented On 5 10:29AM ; [facility], [facility] Assessments Includes: Assessments from this [...] q 4h prn pain Pharmacy: [facility] #[id number] - [address] , [facility], [address] - Last Documented On 8:39AM By Issa Rodriguez ; [facility], [facility] Current Medications (continue as prescribed) Clindamycin HCl 300 MG Oral Capsule 01/07/2025 Provi tahira: Holden Modi PA-C Diagnosis: Last Documented On 10:36AM By Quentin Burk ; [facility], [facility] oxyCODONE-Acetaminophen 5-325 MG Oral Tablet Provider: Issa Rodriguez MD Diagnosis: Last Documented On 9:50AM By Quentin Burk ; [facility], [facility] Pantoprazole Sodium 40 MG Or al Tablet Delayed Release 12/09/2024 Provider: Maya Torres TECHNOLOGY SPECIALIST Diagnosis: Last Documented On 9:50AM By Quentin Burk ; [facility], [facility] LORazepam 1 MG Oral Tablet 12/04/2024 Provider: Nancy Torres TECHNOLOGY SPECIALIST Diagnosis: Last Documented On 9:50AM By Quentin Burk ; [facility], [facility] Doxycycline Hyclate 100 MG Oral Capsule 12/04/2024 P rosoniader: Diagnosis: Last Documented On 9:50AM By Quentin Burk ; [facility], [facility] sulfaSALAzine 500 MG Oral Tablet 11/27/2024 Provider : Maya Torres TECHNOLOGY SPECIALIST Diagnosis: Last Documented On 9:50AM By Quentin Burk ; [facility], [facility] Albuterol Sulfate HFA 108 (9 0 Base) MCG/ACT Inhalation Aerosol Solution 11/07/2024 Provider: Maya anderson TECHNOLOGY SPECIALIST Diagnosis: Last Documented On 06/13/202 5 9:50AM By Quentin Burk ; [facility] Finasteride 5 MG Oral Tablet 11/03/2024 Provider: Maya Torres APRN Diagnosis: Last Documented On 5 9:50AM By Quentin Burk ; [facility] Tamsulosin HCl 0.4 MG Oral Capsule 11/03/2024 Provid er: Maya Torres APRN Diagnosis: Last Documented On 5 3:49PM By Marifer Nuñez ; [facility] Amoxicillin 875 MG Oral Tablet 09/11/2024 Provider: Diagnosis: Last Documented On 5 9:50AM By Quentin Burk ; [facility] predniSONE 10 MG Oral Tablet 03/11/2021 Provider: Jarek Muñiz DO Diagnosis: Last Documented On 8:34AM By Deborah Lowery ; [facility] Amoxicillin 500 MG Oral Capsule 03/11/2021 Provider: Jarek Muñiz DO Diagnosis: Last Documented On 8:34AM By Deborah Lowery ; [facility] Cephalexin 500 MG Oral Capsule 03/10/2021 Provider: Diagnosis: Last Documented On 8:34AM By Deborah Lowery ; [facility] HYDROcodone-Acetaminophen 5-325 MG Oral Tablet 021 Provider: Diagnosis: Last Documented On 8:34AM By Deborah Lowery ; [facility] Gabapentin 300 MG Oral Capsule 03/06/2021 Provider: Diagnosis: Last Documented On 8:34AM By Deborah Lowery ; [facility] LORazepam 1 MG Oral Tablet 03/06/2021 Provider: Diagnosis: Last Documented On 8:34AM By Deborah Lowery ; [facility] Esomeprazole Magnesium 40 MG Oral Capsule Delayed Rele ase 03/04/2021 Provider: Diagnosis: Last Documented On 8:34AM By Deborah Lowery ; [facility] Esomeprazole Magnesium 40 MG Oral Capsule Delayed Rele ase 03/04/2021 Provider: Diagnosis: Last Documented On 8:34AM By Deborah Lowery ; [facility] Fluticasone Propionate 50 MCG/ACT Nasal Suspension Provider: Diagnosis: Last Documented On 8:35AM By Deborah Lowery ; [facility] Medications Administered Includes: Administered Medications from this encounter No Administered Medications Recorded Results Includes: Results discussed during this encounter No Results Recorded For Specified Dates History of Present Illness Includes: History of Present Illness from this encounter No History of Present Illness Recorded Social History Description Last Updated Sex - Male 07/05/2025 Last Documented On 5 2:08PM ; [facility] Smoking Status Unknown Medical History Includes: [...] Includes: Active Allergies No Known Allergies Care Threader Name (Identifier) Role/Relation Location/Telecom Last Documented By Domingo Billingsley MD ([id number]) Assigned practitioner (occupation) tel:[phone] Last Documented On 07/05/2025 2:08PM ; [facility] Olga Vicki Licea APRN ([id number]) [address] [place] [address], [facility], [address] tel:[phone] Last Documented On 04/05/2019 9:06AM ; [facility] Encounters Encounter Provider Location (Healthcare Service Location) Date Check-In Time Check-Out Time Diagnosis Encounter Disposition [Patient Encounter] Issa Rodriguez MD 2024 8:31AM 11:59PM Payer Includes: Active Insurance Policies Plan Name (Payer ID) Coverage Type Member ID Group # Subscriber (ID) Relationship Effective Dates 1 - Medicare Part B [facility] ([id number]) [id number] Stephane Mendieta Self (Checked on 06/03/2025) Last Documented On 9 7:57AM ; [facility] [id number] [place] 09/15/2017 - Unknown Last Documented On 9 8:40AM ; [facility]
--- OUTSIDE RECORDS SUMMARY | 2025-07-09 10:30 | XMS_ITS | Continuity of Care Document ---
Author Organization [employer] [facility] Address [address] [place] [address] Assessment No assessment recorded. Plan of Treatment [...] Orders lorazepam 1 mg tablet 2024 025 [facility] (Now [facility]), [address] [facility], [place], [address], 05/09/2025 18:00:59 Patient TargetsNo targets recorded. Patient InstructionsNo instructions recorded. Reason for Referral None Reported. Problems Name Problem SNOMED Code Status Onset Date Resolution Date Notes Provider Name and Address Organization Details Recorded Time Generali zed anxiety disorder [id number] Completed 201609/21/2016 Problem Code: F41.1; Problem Code Type: ICD-10; Maya Torres APRN [address] [place], [address] , [employer]. 3 11:40:35 Allergic rhinitis caused by pollen 48626161 Completed 201610/08/2016 Problem Code: J30.1; Problem Code Type: ICD-10; Not Available [facility] 2 21:50:51 Pain in right knee Completed 201608/23/2016 Problem Code: M25.561; Problem Code Type: ICD-10; Not Available [facility] 21:50:53 Pain in left knee Completed 201608/23/2016 Problem Code: M25.562; Problem Code Type: ICD-10; Not Available [facility] 21:51:03 Knee pain Completed 201608/23/2016 Problem Code: 719.46; Problem Code Type: ICD-9; [employer]. 11:16:05 Acute sinusiti s 86364875 Completed 201610/05/2016 Problem Code: J01.90; Problem Code Type: ICD-10; JUAN ANTONIO mortensen, [employer]. 11:16:05 Pain in right knee Completed 201611/04/2016 Problem Code: M25.561; Problem Code Type: ICD-10; Not Available [facility] 21:50:53 Prepatel lar bursitis of right knee [id number] 9100 Completed 201612/20/2016 Not Available [facility] 21:50:54 Knee pain Completed 201611/04/2016 Problem Code: 719.46; Problem Code Type: ICD-9; JUAN ANTONIO mortensen [employer]. 11:16:05 Prepatel lar bursitis 80336309 Completed 201612/20/2016 Problem Code: 726.65; Problem Code Type: ICD-9; Not Available [facility] 21:51:17 Pain in right knee Completed 201612/13/2016 Problem Code: M25.561; Problem Code Type: ICD-10; Not Available [facility] 21:51:02 Knee pain Completed 201612/13/2016 Problem Code: 719.46; Problem Code Type: ICD-9; JUAN ANTONIO mortensen [employer]. 10/18/202 2 11:16:05 Allergic rhinitis 50789612 Completed 201603/11/2017 Problem Code: J30.9; Problem Code Type: ICD-10; Not Available [facility] 2 21:50:51 Allergic rhinitis 53381685 Completed 201605/06/2017 Problem Code: J30.9; Problem Code Type: ICD-10; Not Available [facility] 2 21:50:51 Allergic rhinitis caused by pollen 38804030 Completed 201608/02/2017 Problem Code: J30.1; Problem Code Type: ICD-10; Not Available [facility] 2 21:50:51 Hyperten sive disorder 01644721 Completed 201708/30/2017 Problem Code: I10; Problem Code Type: ICD-10; Not Available [facility] 2 21:50:50 Acute sinusiti s 76935726 Completed 201708/12/2017 Problem Code: J01.90; Problem Code Type: ICD-10; JUAN ANTONIO mortensen [employer]. 11:16:05 Benign essentia l hyperten marquis 5959713 Completed 201701/17/2018 Problem Code: 401.1; Problem Code Type: ICD-9; Not Available [facility] 2 21:51:06 Tinea pedis 9436144 Completed 201711/25/2017 Problem Code: B35.3; Problem Code Type: ICD-10; Not Available [facility] 2 21:50:48 Neck pain 61827213 Completed 201711/25/2017 Not Available [facility] 2 21:50:53 Hyperest hesia 19807331 Completed 201711/25/2017 Problem Code: R20.3; Problem Code Type: ICD-10; Not Available [facility] 2 21:50:55 Skin sensatio n disturba nce 71274160 Completed 201711/25/2017 Problem Code: 782.0; Problem Code Type: ICD-9; Not Available [facility] 2 21:51:11 Acquired deformit y of toe 65467229 Completed 201701/09/2021 Problem Code: 735.8; Problem Code Type: ICD-9; Not Available [facility] 2 21:51:11 Onychomy cosis due to dermatop hyte 229424464 Completed 201711/25/2017 Problem Code: 110.1; Problem Code Type: ICD-9; Not Available [facility] 2 21:51:15 Acute sinusiti s 24275345 Completed 201701/31/2018 Problem Code: J01.90; Problem Code Type: ICD-10; JUAN ANTONIO mortensen, [employer]. 11:16:05 Non-neop lastic nevus 692568309 Completed 201706/28/2019 Not Available [facility] 2 21:50:58 Large prostate 209635551 Completed 201703/10/2018 Problem Code: N40.0; Problem Code Type: ICD-10; Not Available [facility] 2 21:51:05 Generali zed atherosc lerosis 11628045 Completed 201701/09/2021 Problem Code: 440.9; Problem Code Type: ICD-9; Not Available [facility] 2 21:51:08 Benign prostati c hyperpla mel 868602561 Completed 201701/09/2021 Problem Code: 600.00; Problem Code Type: ICD-9; Not Available [facility] 2 21:51:09 Lacerati on of finger with foreign body 347873636 Completed 201704/25/2018 Problem Code: S61.222A ; Problem Code Type: ICD-10; Not Available [facility] 2 21:50:56 Pre-surg marjorie evaluati on Completed 201704/25/2018 Not Available [facility] 2 21:50:58 Open wound of finger with complica tion 89734255 Completed 201704/25/2018 Problem Code: 883.1; Problem Code Type: ICD-9; [facility] Available [facility] 21:51:10 Abnormal weight gain 047940159 Completed 201705/09/2018 Problem Code: R63.5; Problem Code Type: ICD-10; Not Available [facility] 21:50:55 Mixed hyperlip idemia 519924706 Completed 201701/09/2021 Problem Code: 272.2; Problem Code Type: ICD-9; Tamar mortensen [facility]. 09:56:03 Anemia of chronic disease 877076013 Completed 201706/28/2019 Problem Code: D63.8; Problem Code Type: ICD-10; Not Available [facility] 21:50:49 Prostate specific antigen above referenc e range 304009374 Completed 201705/12/2018 Problem Code: R97.20; Problem Code Type: ICD-10; Not Available [facility] 21:50:56 Iron deficien cy anemia secondar y to inadequa te dietary iron intake 873268152 Completed 201705/27/2018 Problem Code: D50.8; Problem Code Type: ICD-10; Not Available [facility] 21:50:49 Ulcerati ve pancolit is 435057138 Completed 201706/28/2019 Problem Code: K51.00; Problem Code Type: ICD-10; Not Available [facility] 21:50:52 Abscess of limb 073679160 Completed 201705/27/2018 Problem Code: L02.415; Problem Code Type: ICD-10; Not Available [facility] 21:51:00 Abscess of leg, except foot 14686292 Completed 201705/27/2018 Not Available [facility] 21:51:10 Ulcerati ve colitis 33289972 Completed 201701/09/2021 Problem Code: 556.6; Problem Code Type: ICD-9; Not Available [facility] 21:51:16 Anemia due to chronic blood loss 332891832 Active 2017 Problem Code: D50.0; Problem Code Type: ICD-10; Not Available [facility] 2 21:50:49 Ulcerati ve pancolit is 896393537 Completed 201706/28/2019 Problem Code: K51.00; Problem Code Type: ICD-10; Not Available [facility] 2 21:50:52 Ulcerati ve colitis 27736833 Completed 201701/09/2021 Problem Code: 556.6; Problem Code Type: ICD-9; Not Available [facility] 2 21:51:17 Acute posthemo rrhagic anemia 137907684 Completed 201706/12/2018 Problem Code: D62; Problem Code Type: ICD-10; Not Available [facility] 2 21:50:49 Acute posthemo rrhagic anemia 149859783 Completed 201706/17/2018 Problem Code: D62; Problem Code Type: ICD-10; Not Available [facility] 2 21:50:49 Acute posthemo rrhagic anemia 258771622 Completed 201706/24/2018 Problem Code: D62; Problem Code Type: ICD-10; Not Available [facility] 2 21:50:49 Pain in right knee Completed 201705/01/2018 Problem Code: M25.561; Problem Code Type: ICD-10; Not Available [facility] 2 21:50:53 Pain in left knee Completed 201705/01/2018 Problem Code: M25.562; Problem Code Type: ICD-10; Not Available [facility] 2 21:50:54 Knee pain Completed 201705/04/2022 Problem Code: 719.46; Problem Code Type: ICD-9; JUAN ANTONIO mortensen [employer] 2 11:16:05 Acute sinusiti s 33702902 Completed 201707/03/2018 Problem Code: J01.90; Problem Code Type: ICD-10; JUAN ANTONIO mortensen [employer] 11:16:05 Acute bronchit is 13667177 Completed 201708/18/2018 Problem Code: J20.9; Problem Code Type: ICD-10; Not Available [facility] 2 21:50:51 Idiopath ic osteoart hritis 703492970 Active 2018 Problem Code: M17.0; Problem Code Type: ICD-10; Not Available [facility] 2 21:51:01 Allergic sensitiz ation 300998015 Completed 201805/04/2022 JUAN ANTONIO mortensen, [employer] 11:16:05 Mixed hyperlip idemia 825240469 Active 2018 Problem Code: E78.2; Problem Code Type: ICD-10; Tamar mortensen, [employer] 5 09:56:03 Large prostate 497739812 Active 2018 Problem Code: N40.0; Problem Code Type: ICD-10; Not Available [facility] 2 21:50:54 Dysthymi a 90570512 Active 2018 Problem Code: R53.81; Problem Code Type: ICD-10; Not Available [facility] 21:51:11 Primary insomnia 6041707 Active 2018 Problem Code: F51.01; Problem Code Type: ICD-10; Not Available [facility] 2 21:50:50 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 11:16:05 Body mass index 30+ - obesity 804301735 Active 2018 Problem Code: Z68.35; Problem Code Type: ICD-10; Not Available [facility] 2 21:50:59 Diabetes mellitus screenin g Completed 201805/04/2022 Problem Code: Z13.1; Problem Code Type: ICD-10; JUAN ANTONIO mortensen [employer] 2 11:16:05 Body mass index 30+ - obesity 541260124 Completed 201807/17/2020 Problem Code: Z68.35; Problem Code Type: ICD-10; Not Available [facility] 21:51:01 Atelecta sis 79293084 Completed 201812/14/2019 Problem Code: J98.11; Problem Code Type: ICD-10; Not Available [facility] 2 21:50:52 General examinat ion of patient Completed 201806/28/2019 JUAN ANTONIO mortensen [employer] 2 11:16:05 Body mass index 30+ - obesity 041542242 Completed 201807/17/2020 Problem Code: Z68.35; Problem Code Type: ICD-10; Not Available [facility] 2 21:51:01 Body mass index 30+ - obesity 675377871 Completed 201807/17/2020 Problem Code: Z68.35; Problem Code Type: ICD-10; Not Available [facility] 2 21:51:00 Body mass index 30+ - obesity 503428689 Completed 201907/17/2020 Problem Code: Z68.36; Problem Code Type: ICD-10; Not Available [facility] 2 21:51:13 Disorder of skin and/or subcutan eous tissue 12031661 Completed 201905/04/2022 JUAN ANTONIO mortensen, [employer]. 11:16:05 Body mass index 30+ - obesity 665615024 Completed 201907/17/2020 Problem Code: Z68.36; Problem Code Type: ICD-10; Not Available [facility] 21:51:00 General examinat ion of patient Completed 201905/04/2022 JUAN ANTONIO mortensen, [employer] 11:16:05 General examinat ion of patient Completed 202009/15/2020 JUAN ANTONIO mortensen, [employer]. 11:16:05 Body mass index 30+ - obesity 104690459 Completed 202009/15/2020 Problem Code: Z68.36; Problem Code Type: ICD-10; Not Available [facility] 21:51:14 Cough 24088028 Completed 202004/02/2021 Problem Code: R05; Problem Code Type: ICD-10; Not Available [facility] 21:50:54 Acute sinusiti s 91249798 Completed 202005/04/2022 Problem Code: J01; Problem Code Type: ICD-10; JUAN ANTONIO mortensen, [employer]. 11:16:05 Eruption 798060784 Completed 202005/04/2022 Problem Code: R21; Problem Code Type: ICD-10; JUAN ANTONIO mortensen, [employer]. 11:16:05 Contusio n of anterior abdomina l wall 606874567 Completed 202005/04/2022 JUAN ANTONIO mortensen, [employer]. 11:16:05 Malignan t neoplasm of skin 304646101 Completed 202004/02/2021 Problem Code: C44.90; Problem Code Type: ICD-10; Not Available [facility] 09/05/202 2 21:50:49 Allergic rhinitis 99892140 Active 2020 Problem Code: J30.9; Problem Code Type: ICD-10; Not Available [facility] 2 21:50:52 Abrasion of skin of palm of hand 749529941 Completed 202109/24/2021 Not Available [facility] 2 21:50:56 Current drug user 301846126 Active 2021 Problem Code: Z79.899; Problem Code Type: ICD-10; Not Available [facility] 2 21:51:02 Acute frontal sinusiti s 26624925 Completed 202105/04/2022 Problem Code: J01.1; Problem Code Type: ICD-10; JUAN ANTONIO mortensen, [employer] 2 11:16:06 Generali zed anxiety disorder 04893281 Active 2022 Problem Code: F41.1; Problem Code Type: ICD-10; Maya Torres, SIMI [address] [place] [address], [address] , [employer] 3 11:40:35 Problem Notes None recorded. Procedures Surgical History Date Name Laterality Status Provider Name and Address Organization Details Recorded Time 7 hernia repair completed Not Available [facility] 03/23/2022 22:56:15 Imaging Results None recorded. Procedure [...] Updated DateTime 5 175.26 cm 36.8 kg/m2 957571. 5 g 83 /min 91 % 134/85 mm[Hg] Tamar Durham [employer] 5 10:47:28 Social History Question Answer Notes LastModified by Organizat ion Details LastModified Time Tobacco Smoking Status Former Smoker JUAN ANTONIO mortensen, [employer] 05/04/2022 11:17:53 Do You Have An Advance Directive? No Information n ot available 06/04/2022 Are You Blind Or Do You Have Difficulty Seeing? No Information n ot available 05/04/2022 What Is Your Level Of Caffeine Consumption? Moderate Information not available 11/30/2022 Are You A Caregiver? No [email or web address] Information not available 06/04/2022 In The 14 [...] Type Of Diet Are You Following? REGULAR [email or web address] Information n ot available 06/04/2022 Have There Been Any Changes To Your Family Or Social Situation? No [email or web address] Information no t available 06/04/2022 When Did You Quit Smoking? 6-10yearssinc [email or web address] e Information not available 06/01/2024 Do You Have A Medical Power Of Veterinary Bacteriologist? No Information not available 06/04/2022 What Was The Date Of Your Most Recent Tobacco Screening? 05/09/2025 Information not available 05/09/2025 What Is Your Current Pack Years? 20-29packyear s [email or web address] Information not available 05/04/2022 What Is Your Relationship Status? [email or web address] Information not available 05/04/2022 Do You Use Your Seat Belt Or Car Seat Routinely? Yes [email or web address] Information not available 06/04/2022 Do You Have Smoke And Carbon Monoxide Detectors In Your Home? Yes [email or web address] Information not available 06/04/2022 How Much Tobacco Do You Smoke? 1 PPD Information not available 06/01/2024 Do You Use Sunscreen Routinely? No Information not available 06/04/2022 Have You Recently Traveled Abroad? No [email or web address] Information not available 06/04/2022 Do You Have Difficulty Walking Or Climbing Stairs? No [email or web address] Information not available 05/04/2022 Are You Currently In School? No [email or web address] Information not available 06/04/2022 Do You Have Any Dietary Restrictions? No Information not available 06/04/2022 Sex: Male Functional Status Question Answer Note LastModified by Organizat ion Details LastModified Time Do you use any illicit or recreational drugs? No Information not available 11/30/2022 What is your level of alcohol consumption? None [email or web address] Information not available 05/04/2022 Are you currently employed? No [email or web address] Information not available 06/04/2022 Do you have transportation difficulties? No [email or web address] Information not available 05/04/2022 Are you able to walk independently without assistance or assistive devices? YESWOREST [email or web address] Information not available 05/04/2022 Do you have difficulty doing errands alone? No [email or web address] Information not available 05/04/2022 Are you able to care for yourself independently? Yes [email or web address] Information not available 05/04/2022 Do you have difficulty dressing, bathing, grooming, or toileting? No Information not available 05/04/2022 What is your exercise level? None [email or web address] Information not available 06/04/2022 Mental Status Question Answer Note LastModified by Organization D etails LastModified Time Do you have difficulty concentrating, remembering or making decisions? No [email or web address] Information no t available 05/04/2022 Family History Relationship Description Onset Age of this Age Resolved Age Notes LastModified by Organization Details LastModified Time Unspecified Relation Family history of Hypertension [email or web address] Not available 11:16:26 Unspecified Relation Family history of malignant neoplasm Not available 05/04 11:16:34 Unspecified Relation Family history of polyp of colon [email or web address] Not available 05/04 11:16:39 Medical History Condition Response Allergies (Food, seasonal, environmental ) Y Hypertension Y GI Problems Y Immunizations Vaccine Type Date Status Note Provider Name and Address Organization Details Recorded Time zoster recombinant 024 cancelled patient objection Maya Torres APRN [address] [place], [address], [employer] 10/03/2023 13:15:21 pneumococcal polysaccharide PPV23 019 completed Tamar mortensen, [employer] 05/09/2025 10:23:09 Pneumococcal conjugate PCV 13 10/08/2 018 completed Tamar Durham null, [employer] 05/09/2025 10:23:09 COVID-19, mRNA, LNP-S, PF, 100 mcg/0.5mL dose or 50 mcg/0.25mL dose 021 completed Tamar Castellony null, [employer] 05/09/2025 10:23:09 COVID-19, mRNA, LNP-S, PF, 100 mcg/0.5mL dose or 50 mcg/0.25mL dose 021 completed Tamar Castellony null, [employer] 05/09/2025 10:23:09 COVID-19, mRNA, LNP-S, PF, 100 mcg/0.5mL dose or 50 mcg/0.25mL dose 021 completed Tamar Marva null, [employer] 05/09/2025 10:23:09 Influenza, high-dose, trivalent, PF 019 completed JUAN ANTONIO EILEEN null, [employer] 07/02/2022 11:24:10 Influenza, split virus, trivalent, PF 017 completed JUAN ANTONIO EILEEN null, [employer] 07/02/2022 11:24:10 Influenza, MDCK, quadrivalent, PF completed JUAN ANTONIO EILEEN null, [employer] 07/02/2022 11:24:10 Tdap 016 completed JUAN ANTONIO EILEEN null, [employer] 07/02/2022 11:24:10 Influenza, high-dose, trivalent, PF 018 completed JUAN ANTONIO EILEEN null, [employer] 07/02/2022 11:24:10 COVID-19, mRNA, LNP-S, bivalent, PF, 50 mcg/0.5 mL or 25mcg/0.25 mL dose 022 completed JUAN ANTONIO EILEEN null, [employer] 07/02/2022 11:24:10 Influenza, high-dose, quadrivalent, PF 022 completed JUAN ANTONIO mortensen, [facility] 07/02/2022 11:24:10 Influenza, high-dose, quadrivalent, PF 021 completed JUAN ANTONIO mortensen [facility] 07/02/2022 11:24:10 RSV, recombinant, protein subunit RSVpreF, adjuvant reconstituted, 0.5 mL, PF 023 completed Not Available [facility] 05/09/2025 10:21:48 Influenza, high-dose, quadrivalent, PF 023 completed Not Available [facility] 05/09/2025 10:21:48 Influenza, high-dose, trivalent, PF 024 completed Not Available [facility] 05/09/2025 10:21:48 Pneumococcal conjugate PCV20, polysaccharide NJT022 conjugate, adjuvant, PF 025 completed Not Available [facility] 05/09/2025 10:21:48 Influenza, high-dose, trivalent, PF 025 completed Not Available [facility] 05/09/2025 10:21:48 Influenza, high-dose, quadrivalent, PF 020 completed Tamar mortensen, [facility] 05/09/2025 10:23:09 Past Encounters Encounter ID Performer Location Encounter Start Date Encounter Closed Date Diagnosis/Indication Diagnosis SNOMED-CT Code Diagnosis ICD10 Code Diagnosis IMO Codes Diagnosis Note [id number] Maya Torres [address] [address] 05/09/2025 10:20:23 05/09/2025 11:27:11 Generalized anxiety disorder 80779247 F41.1 controlled substance agreement and drug screen UTD at this time. Essential hypertension 92950572 I10 Gastroesop hageal reflux disease without esophagitis 084640412 K21.9 Allergic rhinitis 129798 04 J30.9 Body mass index 30+ - obesity 205337983 Z68.36 814241 Health Concerns Section Related Observation LastModified by Organization Detai ls LastModified Time None Recorded Concern Status LastModified by Organization Details LastModified Time None Recorded Payers Encounter Date Sequence Insurance Name Policy Number Policy Sutherland Covered Member ID Sutherland Member ID Guarantor Name 05/09/2025 1 [place] Stephane Mendieta [id number] Stephane Mendieta 05/09/2025 2 [employer] SUPPLEMENTAL - [employer] (MEDICARE SUPPLEMENT) Stephane Lozano Anam [id number] Stephane Mendieta Notes Date Note Type Note Provider Name and Address Organization Details Recorded Time 05/09/2025 text/html pt here today for medication refills. pt states hes doing well on current medication regime and has no new complaints today. pt requested more trelegy samples and i gave him 4. Maya Torres, [employer] [address] [facility], [place], [address], [facility] [[email or web address] for[employer] 05/09/2025 18:02:01
--- OUTSIDE RECORDS SUMMARY | 2025-07-09 10:30 | XMS_ITS | Clinical Summary ---
Author Organization [facility] , [facility] Address [address] [place] [address] Phone Care Team Providers Care Form Press Operator Name Role Phone Jose Cruz COLEMAN, Domingo Jett Unavailable [phone] Olga Licea APRN Unavailable [phone] Reason for Visit and Chief Complaint The Chief Complaint is: back pain Problems Includes: Problems addressed during this encounter and other active Problems All Visits Onset Date Date of Diagnosis Resolved Date Provider Condition Status Soft Tissue Pain Hand 12/05/2024 12/05/2024 Flako Pulido PA-C Active Last Documented On 5 1:43AM ; [facility], [facility] History of Lower Back Pain M idline Right Side 04/12/2022 04/12/2022 Holden Modi PA-C Active Last Documented On 5 1:41AM ; [facility], [facility] Joint Pain Left Thumb 03/12/2021 03/12/2021 Charles Hernandez MD Active Last Documented On 5 1:40AM ; [facility], [facility] Joint Pain in Both Knees 04/05/2019 04/05/2019 Arlet Billingsley MD Active Last Documented On 5 1:39AM ; [facility] Plan of Treatment - Patient screened for future fall risk: documentation of any fall with injury in past year - Last Documented On 06/11/2025 1:20PM ; [facility], [facility] Fall Risk Assessment: This patient has been [...] - Last Documented On 06/11/2025 1:20PM ; [facility], [facility] Future Appointments Date Time Location Provi tahira Post Op 07/19/2025 11:00AM [facility] MIAH Modi PA-C Last Documented On 5 10:29AM ; [facility], [facility] Instructions to patient Lose weight Last Documented On 8:58AM ; [facility], [facility] Assessments Includes: Assessments from this encounter Findings - Overweight - Last Documented On 06/11/2025 1:20PM ; [facility], [facility] Instructions Includes: Instructions from this encounter Instructions to patient Lose weight Last Documented On 8:58AM ; [facility], [facility] Medical Equipment - Implanted Devices Includes: Current Devices No Medical Equipment Recorded Medications Includes: Medications discussed during this encounter and other current Medications Current Medications (continue as prescribed) Percocet 5-325 MG Oral Tablet 07/03/2025 - 07/18/2025 Provider: Issa Rodriguez MD Diagnosis: 1 po q 4h prn pain Last Documented On 5 8:39AM By Issa Rodriguez ; [facility], [facility] Clindamycin HCl 300 MG Oral Capsule 01/07/2025 Provi tahira: Holden Modi PA-C Diagnosis: Last Documented On 5 10:36AM By Quentin Burk ; [facility], [facility] oxyCODONE-Acetaminophen 5-325 MG Oral Tablet Provider: Issa Rodriguez MD Diagnosis: Last Documented On 5 9:50AM By Quentin Burk ; [facility], [facility] Pantoprazole Sodium 40 MG Or al Tablet Delayed Release 12/09/2024 Provider: Maya Torres APRN Diagnosis: Last Documented On 5 9:50AM By Quentin Burk ; [facility], [facility] LORazepam 1 MG Oral Tablet 12/04/2024 Provider: M ichelle Stone AVIATION SAFETY INSPECTOR Diagnosis: Last Documented On 5 9:50AM By Quentin Burk ; [facility], [facility] Doxycycline Hyclate 100 MG Oral Capsule 12/04/2024 Papito washingtonder: Diagnosis: Last Documented On 5 9:50AM By Quentin Burk ; [facility], [facility] sulfaSALAzine 500 MG Oral Tablet 11/27/2024 Provider : Maya Torres AVIATION SAFETY INSPECTOR Diagnosis: Last Documented On 5 9:50AM By Quentin Burk ; [facility], [facility] Albuterol Sulfate HFA 108 (9 0 Base) MCG/ACT Inhalation Aerosol Solution 11/07/2024 Provider: Maya anderson AVIATION SAFETY INSPECTOR Diagnosis: Last Documented On 5 9:50AM By Quentin Burk ; [facility], [facility] Finasteride 5 MG Oral Tablet 11/03/2024 Provider: Maya Torres AVIATION SAFETY INSPECTOR Diagnosis: Last Documented On 5 9:50AM By Quentin Burk ; [facility], [facility] Tamsulosin HCl 0.4 MG Oral Capsule 11/03/2024 Provid er: Maya Torres AVIATION SAFETY INSPECTOR Diagnosis: Last Documented On 5 3:49PM By Marifer Nuñez ; [facility], [facility] Amoxicillin 875 MG Oral Tablet 09/11/2024 Provider: Diagnosis: Last Documented On 5 9:50AM By Quentin Burk ; [facility], [facility] predniSONE 10 MG Oral Tablet 03/11/2021 Provider: Jarek Muñiz DO Diagnosis: Last Documented On 8:34AM By Deborah Lowery ; [facility], [facility] Amoxicillin 500 MG Oral Capsule 03/11/2021 Provider: Jarek Muñiz DO Diagnosis: Last Documented On 8:34AM By Deborah Lowery ; [facility], [facility] Cephalexin 500 MG Oral Capsule 03/10/2021 Provider: Diagnosis: Last Documented On 8:34AM By Deborah Lowery ; [facility], [facility] HYDROcodone-Acetaminophen 5-325 MG Oral Tablet Provider: Diagnosis: Last Documented On 8:34AM By Deborah Lowery ; [facility] Gabapentin 300 MG Oral Capsule 03/06/2021 Provider: Diagnosis: Last Documented On 8:34AM By Deborah Lowery ; [facility], [facility] LORazepam 1 MG Oral Tablet 03/06/2021 Provider: Diagnosis: Last Documented On 8:34AM By Deborah Lowery ; [facility], [facility] Esomeprazole Magnesium 40 MG Oral Capsule Delayed Rele ase 03/04/2021 Provider: Diagnosis: Last Documented On 8:34AM By Deborah Lowery ; [facility], [facility] Esomeprazole Magnesium 40 MG Oral Capsule Delayed Rele ase 03/04/2021 Provider: Diagnosis: Last Documented On 8:34AM By Deborah Lowery ; [facility], [facility] Fluticasone Propionate 50 MCG/ACT Nasal Suspension Provider: Diagnosis: Last Documented On 8:35AM By Deborah Lowery ; [facility], [facility] Past Medications on file Clindamycin HCl 300 MG Oral Capsule 01/07/2025 - 01/09/2025 Provider: Holden Steiner Diagnosis: take 2 pills, 3 three times a day Last Documented On 5 11:06AM By Quentin Burk ; [facility], [facility] Clindamycin HCl 300 MG Oral Capsule 12/28/2024 - 01/08/2025 Provider: Holden Steiner Diagnosis: three times a day Last Documented On 5 10:10AM By Quentin Burk ; [facility], [facility] Percocet 5-325 MG Oral Tablet 12/19/2024 - 01/03/2025 Provider: Issa Rodriguez MD Diagnosis: 1 po q 4h prn pain Last Documented On 5 8:40AM By Issa Rodriguez ; [facility], [facility] Losartan Potassium 100 MG Oral Tablet 12/05/2024 - Provider: Diagnosis: Last Documented On 5 3:50PM By Marifer Nuñez ; [facility], [facility] DULoxetine HCl 60 MG Oral Ca psule Delayed Release Particles 12/05/2024 - 03/05/2025 Provider: Diagnosis: Last Documented On 5 3:49PM By Marifer Nuñez ; [facility], [facility] Montelukast Sodium 10 MG Oral Tablet 12/05/2024 - 02/15 Provider: Diagnosis: Last Documented On 5 3:49PM By Marifer Nuñez ; [facility] Medications Administered Includes: Administered Medications from this encounter No Administered Medications Recorded Vital Signs Includes: Vital Signs from this encounter Vital Name 06/06/2025 09:02A Height (in) 69 Weight (lb) 252 Body Mass Index 37.2 Body Surface Area 2.3 Pain Level 5 Last Documented: On 06/06/2025 9:02AM ; [facility], [facility] Results Includes: Results discussed during this encounter [...] Documented On 5 8:58AM ; [facility], [facility] No recent change in diet 04/22/2022 Last Documented On 5 8:58AM ; [facility], [facility] Not a current smoker. 04/22/2022 Last Documented On 5 8:58AM ; [facility] Non-smoker 03/12/2021 Last Documented On 5 8:58AM ; [facility], [facility] No tobacco use 04/05/2019 Last Documented On 5 8:58AM ; [facility], [facility] Smoking status : Never smoker 04/05/2019 Last Documented On 5 8:58AM ; [facility], [facility] Caffeine use 04/05/2019 Last Documented On 5 8:58AM ; [facility], [facility] No recent change in diet 04/05/2019 Last Documented On 5 8:58AM ; [facility], [facility] Not a current smoker 04/05/2019 Last Documented On 5 8:58AM ; [facility], [facility] Not exercising regularly 04/05/2019 Last Documented On 5 8:58AM ; [facility], [facility] Not using alcohol 04/05/2019 Last Documented On 5 8:58AM ; [facility] Not using drugs 04/05/2019 Last Documented On 5 8:58AM ; [facility] Sex - Male 07/05/2025 Last Documented On 5 2:08PM ; [facility] Procedures and Surgical History Includes: Procedures from this encounter Procedures Code Diagnosis Performing Provider Service Location Service Date X-RAY EXAM OF TRUNK SPINE [address] Encntr for adjust and mgmt of implanted nervous sys device, Presence of neurostimulator Issa Rodriguez MD [facility] 06/06/2025 Last Documented On 5 2:21PM ; [facility] Surgical History Last Updated History of hernia repair 04/05/2019 Last Documented On 5 8:58AM ; [facility] Medical History Includes: Medical History addressed during this encounter Description Last Updated No recent immunization for flu Last Documented On 5 8:58AM ; [facility] No recent immunization for pneumococcal pneumonia 03/12/2021 Last Documented On 5 8:58AM ; [facility] cataracs 04/05/2019 Last Documented On 5 8:58AM ; [facility] Arthritic joint problems 04/05/2019 Last Documented On 5 8:58AM ; [facility] Intermittent hypertension 04/05/2019 Last Documented On 5 8:58AM ; [facility] Family History Includes: Family History addressed during this encounter Description Last Updated Family history of cancer 04/05/2019 Last Documented On 5 8:58AM ; [facility] Family history of hypertension 9 Last Documented On 5 8:58AM ; [facility] Review of Systems Includes: Review [...] Anxiety Last Documented On 5 8:58AM ; [facility] Physical Exam Includes: Physical Exam from this encounter Allergies Includes: Active Allergies No Known Allergies Care Form Press Operator Name (Identifier) Role/Relation Location/Telecom Last Documented By Domingo Billingsley MD ([id number]) Assigned practitioner (occupation) tel:[phone] Last Documented On 07/05/2025 2:08PM ; [facility] Olga Cohen Vinayak BELCHER ([id number]) [address] [place] [address], [id number] tel:[phone] Last Documented On 04/05/2019 9:06AM ; [facility] Encounters Encounter Provider Location (Healthcare Service Location) Date Check-In Time Check-Out Time Diagnosis Encounter Disposition Follow Up Issa Rodriguez MD [facility] 2024 8:53AM 10:11AM Overweight Payer Includes: Active Insurance Policies Plan Name (Payer ID) Coverage Type Member ID Group # Subscriber (ID) Relationship Effective Dates 1 - Medicare Part B [facility] ([id number]) [id number] Stephane Lozano Anam Self (Checked on 06/03/2025) Last Documented On 9 7:57AM ; [facility] 2 - [employer] Medicare Supplemen t Insurance [id number] Stephane Mendieta Self 09/15/2017 - Unknown Last Documented On 9 8:40AM ; [facility], [facility] Clinical Notes Includes: Clinical Notes from this encounter * Progress note Date Encounter Last Documented by 06/06/2025 Follow Up Last documented on 06/11/2025; 1:20 PM, Issa Rodriguez MD; [facility], [facility] Active Problems & Conditions - History of [...] Care Team - Olga Licea APRN - FILE DRAWER FINISHER Health Reminders - Assess BMI satisfied 06/06/2025. - Assess Tobacco Use satisfied 04/05/2019. - Follow Up Plan BMI Management satisfied 06/06/2025.
--- OUTSIDE RECORDS SUMMARY | 2025-07-09 10:31 | XMS_ITS | Encounter Summary ---
Author Organization [employer] ([place], [place], [place], [place], [place]) Address [address] [place] [address] Care Team Providers Care Icu Registered Nurse Name Role Phone Maya Torres Reji BELCHER Primary Care Provider [phone] Encounter Details Date Type Department Care Team (Late st Contact Info) Description 06/16/2018 Transcribed Document [facility] Family Medicine [facility] [place] [address] ProviderJean MD [address] [place], [place] [id number] Social History Tobacco Use Types Packs/Day Years Used Date Smoking Tobacco: Never Assessed Sex and Gender Information Value Date Recorded Sex Assigned at Not on file Legal Sex Male 5:19 PM CDT Gender Identity Not on file Sexual Orientation Not on file documented as of this encounter Miscellaneous Notes * [employer]ner Conversion Note - Jean Sawant MD - 06/16/2018 8:43 AM VOLUNTEER SERVICES COORDINATOR Patient: ISATU MENDIETA Age: 67 Years Sex: [...] 84 CXR- NAD Electronically signed by Ileana, [facility] Conversion Curatorial Assistant Cerner at 11/04/2022 3:24 PM CDT documented in this encounter Plan of Treatment Not on file documented as of this encounter Visit Diagnoses Not on filedocumented in this encounter Care Teams Icu Registered Nurse Relationship Specialty Start Date End Date Maya Torres, JEWELRY DIPPER [address] [id number] PCP - General Family Medicine 08/27/22 documented as of this encounter
--- OUTSIDE RECORDS SUMMARY | 2025-07-09 10:31 | XMS_ITS | Clinical Summary ---
Author Organization [facility] , [facility] Address [address] [place] [address] Phone Care Team Providers Care Labels Molder Name Role Phone Jose Cruz COLEMAN, Domingo Jett Unavailable [phone] Olga Licea APRN Unavailable [phone] Reason for Visit and Chief Complaint The Chief Complaint is: back pain Problems Includes: Problems addressed during this encounter and other active Problems All Visits Onset Date Date of Diagnosis Resolved Date Provider Condition Status Soft Tissue Pain Hand 12/05/2024 12/05/2024 Flako Pulido PA-C Active Last Documented On 5 1:43AM ; [facility], [facility] History of Lower Back Pain M idline Right Side 04/12/2022 04/12/2022 Holden Modi PA-C Active Last Documented On 5 1:41AM ; [facility], [facility] Joint Pain Left Thumb 03/12/2021 03/12/2021 Charles Hernandez MD Active Last Documented On 5 1:40AM ; [facility], [facility] Joint Pain in Both Knees 04/05/2019 04/05/2019 Arlet Billingsley MD Active Last Documented On 5 1:39AM ; [facility], [facility] Plan of Treatment Patient screened for future fall risk: documentation of any fall with injury in past year. - Last Documented On 01/14/2025 10:41AM ; [facility], [facility] Patient was seen by myself Holden [...] - Last Documented On 01/14/2025 10:41AM ; [facility], [facility] Pending Tests Order Diagnosis Results Due Ordering P rovider Radiology - MRI MRI Lumbar Spine 04/26/22 Chas Modi PA-C Last Documented On 2 1:06PM ; [facility], [facility] Future Appointments Date Time Location Provi tahira Post Op 07/19/2025 11:00AM [facility] Holden Modi PA-C Last Documented On 5 10:29AM ; [facility] Instructions to patient Lose weight Last Documented On 10:36AM ; [facility] Assessments Includes: Assessments from this encounter Findings - Overweight - Last Documented On 01/14/2025 10:41AM ; 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 December 19, 2024 - Last Documented On 01/14/2025 10:41AM ; [facility] Instructions Includes: Instructions from this encounter Instructions to patient Lose weight Last Documented On 10:36AM ; [facility] Medical Equipment - Implanted Devices Includes: Current Devices No Medical Equipment Recorded Medications Includes: Medications discussed during this encounter and other current Medications Current Medications (continue as prescribed) Percocet 5-325 MG Oral Tablet 07/03/2025 - 07/18/2025 Provider: Issa Rodriguez MD Diagnosis: 1 po q 4h prn pain Last Documented On 5 8:39AM By Issa Rodriguez ; [facility] Clindamycin HCl 300 MG Oral Capsule 01/07/2025 Provi tahira: Holden Modi PA-C Diagnosis: Last Documented On 5 10:36AM By Quentin Wm ; [facility] oxyCODONE-Acetaminophen 5-325 MG Oral Tablet Provider: Issa Rodriguez MD Diagnosis: Last Documented On 5 9:50AM By Quentin Burk ; [facility], [facility] Pantoprazole Sodium 40 MG Or al Tablet Delayed Release 12/09/2024 Provider: Maya Torres TIMBER FELLER Diagnosis: Last Documented On 5 9:50AM By Quentin Burk ; [facility], [facility] LORazepam 1 MG Oral Tablet 12/04/2024 Provider: Nancy Torres TIMBER FELLER Diagnosis: Last Documented On 5 9:50AM By Quentin Burk ; [facility], [facility] Doxycycline Hyclate 100 MG Oral Capsule 12/04/2024 P rosoniader: Diagnosis: Last Documented On 5 9:50AM By Quentin Burk ; [facility], [facility] sulfaSALAzine 500 MG Oral Tablet 11/27/2024 Provider : Maya Torres TIMBER FELLER Diagnosis: Last Documented On 5 9:50AM By Quentin Burk ; [facility], [facility] Albuterol Sulfate HFA 108 (9 0 Base) MCG/ACT Inhalation Aerosol Solution 11/07/2024 Provider: Maya anderson TIMBER FELLER Diagnosis: Last Documented On 5 9:50AM By Quentin Burk ; [facility], [facility] Finasteride 5 MG Oral Tablet 11/03/2024 Provider: aMya Torres TIMBER FELLER Diagnosis: Last Documented On 5 9:50AM By Quentin Burk ; [facility], [facility] Tamsulosin HCl 0.4 MG Oral Capsule 11/03/2024 Provid er: Maya Torres TIMBER FELLER Diagnosis: Last Documented On 5 3:49PM By Marifer Nuñez ; [facility], [facility] Amoxicillin 875 MG Oral Tablet 09/11/2024 Provider: Diagnosis: Last Documented On 5 9:50AM By Quentin Burk ; [facility], [facility] predniSONE 10 MG Oral Tablet 03/11/2021 Provider: Jarek Muñiz DO Diagnosis: Last Documented On 1 8:34AM By Deborah Lowery ; [facility], [facility] Amoxicillin 500 MG Oral Capsule 03/11/2021 Provider: Jarek Muñiz DO Diagnosis: Last Documented On 1 8:34AM By Deborah Lowery ; [facility], [facility] Cephalexin 500 MG Oral Capsule 03/10/2021 Provider: Diagnosis: Last Documented On 8:34AM By Deborah Lowery ; [facility], [facility] HYDROcodone-Acetaminophen 5-325 MG Oral Tablet 021 Provider: Diagnosis: Last Documented On 8:34AM By Deborah Lowery ; [facility], [facility] Gabapentin 300 MG Oral Capsule 03/06/2021 Provider: Diagnosis: Last Documented On 8:34AM By Deborah Lowery ; [facility], [facility] LORazepam 1 MG Oral Tablet 03/06/2021 Provider: Diagnosis: Last Documented On 8:34AM By Deborah Lowery ; [facility], [facility] Esomeprazole Magnesium 40 MG Oral Capsule Delayed Rele ase 03/04/2021 Provider: Diagnosis: Last Documented On 8:34AM By Deborah Lowery ; [facility], [facility] Esomeprazole Magnesium 40 MG Oral Capsule Delayed Rele ase 03/04/2021 Provider: Diagnosis: Last Documented On 8:34AM By Deborah Lowery ; [facility], [facility] Fluticasone Propionate 50 MCG/ACT Nasal Suspension Provider: Diagnosis: Last Documented On 8:35AM By Deborah Lowery ; [facility], [facility] Past Medications on file Clindamycin HCl 300 MG Oral Capsule 01/07/2025 - 01/09/2025 Provider: Holden Steiner Diagnosis: take 2 pills, 3 three times a day Last Documented On 5 11:06AM By Quentin Burk ; [facility], [facility] Clindamycin HCl 300 MG Oral Capsule 12/28/2024 - 01/08/2025 Provider: Holden Steiner Diagnosis: three times a day Last Documented On 5 10:10AM By Quentin Burk ; [facility], [facility] Percocet 5-325 MG Oral Tablet 12/19/2024 - 01/03/2025 Provider: Issa Rodriguez MD Diagnosis: 1 po q 4h prn pain Last Documented On 5 8:40AM By Issa Rodriguez ; [facility], [facility] Losartan Potassium 100 MG Oral Tablet 12/05/2024 - Provider: Diagnosis: Last Documented On 5 3:50PM By Marifer Nuñez ; [facility] DULoxetine HCl 60 MG Oral Ca psule Delayed Release Particles 12/05/2024 - 03/05/2025 Provider: Diagnosis: Last Documented On 5 3:49PM By Marifer DANGELO [facility] Montelukast Sodium 10 MG Oral Tablet 12/05/2024 - 02/15 Provider: Diagnosis: Last Documented On 5 3:49PM By Marifer Nuñez ; [facility], [facility] Medications Administered Includes: Administered Medications from this encounter No Administered Medications Recorded Vital Signs Includes: Vital Signs from this encounter Vital Name 01/14/2025 10:36A Height (in) 69 Weight (lb) 250 Body Mass Index 36.9 Body Surface Area 2.3 Pain Level 3 Last Documented: On 01/14/2025 10:36A M ; [facility] Results Includes: Results discussed during this [...] Documented On 5 10:36AM ; [facility], [facility] No recent change in diet 04/22/2022 Last Documented On 5 10:36AM ; [facility], [facility] Not a current smoker. 04/22/2022 Last Documented On 5 10:36AM ; [facility], [facility] Non-smoker 03/12/2021 Last Documented On 5 10:36AM ; [facility], [facility] No tobacco use 04/05/2019 Last Documented On 5 10:36AM ; [facility] Smoking status : Never smoker 04/05/2019 Last Documented On 5 10:36AM ; [facility], [facility] Caffeine use 04/05/2019 Last Documented On 5 10:36AM ; [facility], [facility] No recent change in diet 04/05/2019 Last Documented On 5 10:36AM ; [facility], [facility] Not a current smoker 04/05/2019 Last Documented On 5 10:36AM ; [facility], [facility] Not exercising regularly 04/05/2019 Last Documented On 5 10:36AM ; [facility], [facility] Not using alcohol 04/05/2019 Last Documented On 5 10:36AM ; [facility], [facility] Not using drugs 04/05/2019 Last Documented On 5 10:36AM ; [facility], [facility] Sex - Male 07/05/2025 Last Documented On 5 2:08PM ; [facility], [facility] Procedures and Surgical History Surgical History Last Updated History of hernia repair 04/05/2019 Last Documented On 5 10:36AM ; [facility], [facility] Medical History Includes: Medical History addressed during this encounter Description Last Updated No recent immunization for flu Last Documented On 5 10:36AM ; [facility], [facility] No recent immunization for pneumococcal pneumonia 03/12/2021 Last Documented On 5 10:36AM ; [facility], [facility] cataracs 04/05/2019 Last Documented On 5 10:36AM ; [facility], [facility] Arthritic joint problems 04/05/2019 Last Documented On 5 10:36AM ; [facility], [facility] Intermittent hypertension 04/05/2019 Last Documented On 5 10:36AM ; [facility], [facility] Family History Includes: Family History addressed during this encounter Description Last Updated Family history of cancer 04/05/2019 Last Documented On 5 10:36AM ; [facility], [facility] Family history of hypertension 9 Last Documented On 5 10:36AM ; [facility], [facility] Review of Systems Includes: Review of [...] Description Anxiety Last Documented On 10:36AM ; [facility] Physical Exam Includes: Physical Exam from this encounter Allergies Includes: Active Allergies No Known Allergies Care Labels Molder Name (Identifier) Role/Relation Location/Telecom Last Documented By Domingo Billingsley MD ([id number]) Assigned practitioner (occupation) tel:[phone] Last Documented On 07/05/2025 2:08PM ; [facility] Olga Vicki Licea APRN ([id number]) [address] [place] [address], [address] tel:[phone] Last Documented On 04/05/2019 9:06AM ; [facility] Encounters Encounter Provider Location (Healthcare Service Location) Date Check-In Time Check-Out Time Diagnosis Encounter Disposition Post [facility]:30[facility] 10:40AM Overweight Payer Includes: Active Insurance Policies Plan Name (Payer ID) Coverage Type Member ID Group # Subscriber (ID) Relationship Effective Dates 1 - Medicare Part B [facility] ([id number]) [id number] Stephane Mendieta Self (Checked on 06/03/2025) Last Documented On 9 7:57AM ; [facility], [facility] 2 - Cigna Medicare Supplemen t Insurance [id number] Stephane Mendieta Self 09/15/2017 - Unknown Last Documented On 9 8:40AM ; [facility], [facility] Clinical Notes Includes: Clinical Notes from this encounter * Progress note Date Encounter Last Documented by 01/14/2025 Post Op Last documented on 01/14/2025; 10:41 AM, Holden Modi PA-C; [facility], [facility] Active Problems & Conditions - History [...] Replacement spinal cord stimulator battery with the padTwinklrs system. December 19, 2024 Previous Tests Available [...] Care Team - Olga Licea APRN - PIPE LINE GAUGER
--- OUTSIDE RECORDS SUMMARY | 2025-07-09 10:31 | XMS_ITS | Encounter Summary ---
Author Organization [employer] ([place], [place], [place], [place], [place]) Address [address] [place] [address] Care Team Providers Care Tubing Drier Name Role Phone Maya Torres Reji BELCHER Primary Care Provider [phone] Encounter Details Date Type Department Care Team (Late st Contact Info) Description 10/18/2020 Transcribed Document [facility] [place] [address] [place] [address] ProviderJean MD [address], [place] [id number] Social History Tobacco Use Types Packs/Day Years [...] : Low risk (0) Broset Interventions : Sunray precautions for safety used Dee Ocampo, HOLA - 10/18/2020 19:41 EDT Electronically signed by I[facility] Conversion Lead Handler Cerner at 11/04/2022 3:34 PM CDT documented in this encounter Plan of Treatment Not on file documented as of this encounter Visit Diagnoses Not on filedocumented in this encounter Care Teams Tubing Drier Relationship Specialty Start Date End Date Maya Torres, CUSTOMER SUCCESS MANAGER [address] [phone] PCP - General Family Medicine 08/27/22 documented as of this encounter
--- OUTSIDE RECORDS SUMMARY | 2025-07-09 10:31 | XMS_ITS | Encounter Summary ---
Author Organization [employer] ([place], [place], [place], [place], [place]) Address [address] [place] [address] Care Team Providers Care Roof Designer Name Role Phone Maya Torres Reji BELCHER Primary Care Provider [phone] Encounter Details Date Type Department Care Team (Late st Contact Info) Description 10/18/2020 Transcribed Document [facility] [place] [address] [place] [address] ProviderJean MD [address], [place] [id number] Social History Tobacco Use Types Packs/Day Years Used Date Smoking Tobacco: Never Assessed Sex and Gender Information Value Date Recorded Sex Assigned at Not on file Legal Sex Male 5:19 PM CDT Gender Identity Not on file Sexual Orientation Not on file documented as of this encounter Miscellaneous Notes * [employer]ner Conversion Note - Jean ProviderMD - 10/18/2020 7:05 PM CDT Sob[place]ki Suicide Severity Rating Scale (C-SSRS) Entered On: 10/18/2020 19:42 EDT Performed On: 10/18/2020 19:41 EDT by Dee Ocampo RN [place] Suicide Severity Rating Scale (C-SSRS) CSSRS Past [...] on filedocumented in this encounter Care Teams Roof Designer Relationship Specialty Start Date End Date Maya Torres, AIRLINE RADIO OPERATOR [address] [phone] PCP - General Family Medicine 08/27/22 documented as of this encounter
--- OUTSIDE RECORDS SUMMARY | 2025-07-09 10:31 | XMS_ITS | Patient Health Record ---
Author Organization [facility] Address [address] [facility] [address] [place] [address] Care Team Providers Care Supply Cataloguer Name Role Phone Jerome Morrissey II Unavailable Michael COLEMAN -Issa Barry MD Unavailable [phone] Allergies No Known Allergies Reason For Referral [...] Status Risk Notes Problem Chronic pain syndrome (662352998) Chronic pain syndrome (G89.4) Active confirmed Problem Complex regional pain syndrome of lower limb (disorder) (860307163) Complex regional pain syndrome I of unspecified lower limb (G90.529) Active confirmed Problem Cervical spondylosis without myelopathy (840686218) Other spondylosis with radiculopathy, cervical region (M47.22) Active confirmed Problem Cervical spondylosis without myelopathy (143191425) Spondylosis without myelopathy or radiculopathy, cervical region (M47.812) Active confirmed Problem Lumbosacral spondylosis without myelopathy (81983314) Spondylosis without myelopathy or radiculopathy, lumbar region (M47.816) Active confirmed Problem Cervicalgia (79797269) Cervicalgia (M54.2) Active confirmed Problem Post-laminectom y syndrome (48069674) Postlaminectomy syndrome, not elsewhere classified (M96.1) Active confirmed Problem Long-term current use of drug therapy (274310493) Other predatory animal exterminator (current) drug therapy (Z79.899) Active confirmed Problem Lumbar spondylosis (649614481) lumbar spondylosis (M47.816) Active confirmed Vital Signs Heart Rate 80 /min 10/19/2024 Blood pressure diastolic 75 mm Hg 10/19/2024 Height 69 in 10/19/2024 Blood pressure systolic 158 mm Hg 10/19/2024 Weight 250 lbs 10/19/2024 BMI 36.91 kg/m2 10/19/2024 Encounters Encounter Location Date Provider Diagnosis [facility] [address] [place] [address] [place] [address] 10/19/2024 Jerome Morrissey Other [facility] (current) drug therapy [...] once again for the long-term. 10/19/2024 Other predatory animal exterminator (current) drug therapy (ICD-10 - Z79.899) 04/02/2024 1. Discontinue Smock 5/325mg QD PRN 2. FU PRn Mr. [...] Urine Test ANALYZER 05/26/2022 Urine Test ANALYZER 09/23/2022 Urine Test ANALYZER 10/15/2022 Urine Test ANALYZER 10/19/2024 Urine Test ANALYZER 01/03/2024 Urine Test ANALYZER 08/16/2022 Insurance Providers Payer Name Payer Address Payer Phone Subscriber Number Group Number Insured Name Patient Relationship to Insured Coverage Start Date Coverage End Date [place] [address] [place] [address] [id number] Stephane Mendieta Self - patient is the insured 8 C[employer] Medicare Supplement [address] [place] [phone] [id number] Stephane Mendieta Self - patient is the insured 8 Medical (General) History Medical History History ICD Code anxiety / Managed by PCP Surgical History Surgery Date(Month/Year) Back surgery / Dr. Rodriguez 09/2019 right knee replacement
--- OUTSIDE RECORDS SUMMARY | 2025-07-09 10:31 | XMS_ITS | Encounter Summary ---
Author Organization [employer] ([place], [place], [place], [place], [place]) Address [address] [place] [address] Care Team Providers Care X Ray Equipment Tester Name Role Phone Maya Torres SIMI Primary Care Provider [phone] Encounter Details Date Type Department Care Team (Late st Contact Info) Description 10/18/2020 Transcribed Document [facility] [place] [address] [place] [address] ProviderJean MD [address], [place] [address] Social History Tobacco Use Types Packs/Day Years [...] Communication Barrier : None Primary Language : Faroese Any Spiritual/Cultural Needs or Requests : No [...] on filedocumented in this encounter Care Teams X Ray Equipment Tester Relationship Specialty Start Date End Date Maya Torres, TOY ASSEMBLY SUPERVISOR [address] [phone] PCP - General Family Medicine 08/27/22 documented as of this encounter
--- OUTSIDE RECORDS SUMMARY | 2025-07-09 10:31 | XMS_ITS | Encounter Summary ---
Author Organization [employer] ([place], [place], [place], [place], [place]) Address [address] [place] [address] Care Team Providers Care Wallpaper Hanger Name Role Phone Maya Torres Reji BELCHER Primary Care Provider [phone]- [phone] Encounter Details Date Type Department Care Team (Late st Contact Info) Description 10/27/2020 Transcribed Document [facility] [place] [address] [place] [address] ProviderJean MD [address] [place] [address] Social History Tobacco Use Types [...] On: 10/27/2020 12:21 EDT by Jasmin Thornton DEALER ACCOUNTS INVESTIGATOR General-Functional Assess Preferred Communication Mode : Verbal Communication Barrier : None Primary Language : Nigerian Any Spiritual/Cultural Needs or Requests : No [...] Rhythm : Regular Nail Bed Color : Refton Chest Pain : No Capillary Refill, Left [...] mm Pupil Size, Right : 3 mm [place] Coma Scale Link : Open GCS Jasmin Thornton RN - 10/27/2020 12:21 EDT Diana Coma Diana Best Motor Response : Obey commands Diana Best Verbal Response : Oriented [place] Eye Opening Response : Spontaneous [place] Coma Score : 15 Jasmin Thornton RN - 10/27/2020 12:21 EDT Electronically signed by [facility] Conversion Manager Hvac Cerner at 11/04/2022 3:11 PM CDT documented in this encounter Plan of Treatment Not on file documented as of this encounter Visit Diagnoses Not on filedocumented in this encounter Care Teams Wallpaper Hanger Relationship Specialty Start Date End Date Maya Torres, SHAMPOOER [address] [phone] PCP - General Family Medicine 08/27/22 documented as of this encounter
--- OUTSIDE RECORDS SUMMARY | 2025-07-09 10:31 | XMS_ITS | Data Portability ---
Author Organization [facility] Address [address] [place] [address] Assessment No assessment recorded. Plan of Treatment Reminders Order Date Submit Date Provider Last Modified By Organization Details Last Modified Time Details Appointments SAME DAY ACCESS 2025 02:30P Nancy Torres APRN Not available Not available Not available FOLLOW UP 2025 10:30A M Stephanie Torres APRN Not available Not available Not available Lab lipid panel, serum 2024 025 [facility] [address] [place], [address], 03/09/2025 08:10:55 CBC w/ auto diff 2024 025 [place] [facility] [address] [place], [address], 03/09/2025 08:10:54 TSH + free T4, serum 2024 025 [place] [facility] [address] [place], [address], 03/09/2025 08:10:54 CMP, serum or plasma 2024 025 [place] [facility] [address] [place], [address], 03/09/2025 08:10:55 HbA1c (hemoglob in A1c), blood 2024 025 [facility]), [address] [place], [address], 03/09/2025 08:10:56 vitamin D, 25-hydrox y, total, serum 2024 025 [facility]), [address] [place], [address], 03/09/2025 08:10:57 PSA, total, serum or plasma 2024 025 [facility]), [address] [place], [address], 03/09/2025 08:10:56 cobalamin and folate panel, serum 2024 025 [facility]), [address] [place], [address], 03/09/2025 08:10:56 drug screen, 14 drugs (detect ed), urine - Lorazepam last taken this AM. 2024 025 [facility]), [address] [place], [address], 10/04/2024 14:08:41 Referral None recorded. Procedures None recorded. Surgeries None recorded. Imaging None recorded. Medication Orders lorazepam 1 mg tablet 2024 [facility] (Now [facility]), [address], [place], [address], 05/09/2025 18:00:59 amoxicill in 875 mg-potass ium clavulana te 125 mg tablet 2024 [facility], [address] [place] [address], [address], 03/25/2025 05:01:32 duloxetin e 60 mg capsule,d elayed release 2024 [facility], [address], [place], [address], 02/01/2025 12:20:54 cetirizin e 10 mg tablet 2024 025 [facility], [address], [place], [address], 02/01/2025 12:20:59 fluticaso ne propionat e 50 mcg/actua tion nasal spray,kvng pension 2024 025 [facility], [address], [place], [address], 02/01/2025 12:20:55 finasteri de 5 mg tablet 2024 025 [facility], [address], [place], [address], 02/01/2025 12:20:56 tamsulosi n 0.4 mg capsule 2024 025 [facility], [address], [place], [address], 02/01/2025 12:20:55 prednison e 10 mg tablet 2024 025 [facility], [address], [place], [address], 02/01/2025 12:20:58 ipratropi um 0.5 mg-albute rol 3 mg (2.5 mg base)/3 mL nebulizat ion soln 2024 025 [facility], [address], [place], [address], 02/01/2025 12:20:58 prednison e 5 mg tablet 2024 025 [facility], [address], [place], [address], 02/01/2025 10:52:54 lorazepam 1 mg tablet 2024 025 [facility], [address] , [place], [address], 12/03/2024 14:16:48 pantopraz ole 40 mg tablet,de layed release 2024 025 [facility], [address] , [place], [address], 09/27/2024 11:49:11 Patient TargetsNo targets recorded. Patient Instructions Encounter Date Encounter Id Patient Instructions Last Modified By Organization Details Last Modified Time 09/27/2024 [id number] controlled substance agreement* [email or web address] Not available 09/27/2024 11:49:09 02/01/2025 [id number] learning about healthy weight [email or web address] Not available 02/01/2025 18:33:18 Reason for Referral [...] Pheny lprop anola mine is an expec mignon metab olite of ephed rine/ pseud oephe [...] mirella consu ltati on, pleas e call [phone]. ===== ===== ===== ===== ===== ===== ===== ===== ===== ===== ===== ===== ===== === Not Available [facility] ([facility]) [address] [facility] [place], [address], 10/04/2024 14:08:41 09/28/19 25 10/04/2024 COMPL IANCE DRUG CHARISSA SIS, UR pdf . Not Available [facility] ([facility]) [address] [facility] [place], [address], 10/04/2024 14:08:41 03/08/20 25 03/09/2025 TSH+F REE T4 TSH 3.680 uIU/m L 0.450- 4.500 normal Not Available [facility] ([facility]) [address] [facility], [place], [address], 03/09/2025 08:10:54 03/08/20 25 03/09/2025 TSH+F REE T4 T4,free(dire ct) 0.89 NG/dL 0.82-1 .77 normal Not Available [facility] ([facility]) [address] [facility] [place], [address], 03/09/2025 08:10:54 03/08/20 25 03/09/2025 CBC WITH DIFFE RENTI AL/PL ATELE T WBC 8.4 x10e3 /uL 3.4-10 .8 normal Not Available [facility] ([facility]) [address] [place], [address], 03/09/2025 08:10:54 03/08/20 25 03/09/2025 CBC WITH DIFFE RENTI AL/PL ATELE T RBC 3.97 x10e6 /uL 4.14-5 .80 below low normal Not Available [facility] ([facility]) [address] [facility] [place], [address], 03/09/2025 08:10:54 03/08/20 25 03/09/2025 CBC WITH DIFFE RENTI AL/PL ATELE T hemoglobin 11.1 g/dL 13.0-1 7.7 below low normal Not Available [facility] ([facility]) [address] [place], [address], 03/09/2025 08:10:54 03/08/20 25 03/09/2025 CBC WITH DIFFE RENTI AL/PL ATELE T hematocrit 35.3 % 37.5-5 1.0 below low normal Not Available [facility] ([facility]) [address] [place], [address], 03/09/2025 08:10:54 03/08/2003/09/2025 CBC WITH DIFFE RENTI AL/PL ATELE T MCV 89 fL 79-97 normal Not Available [facility] ([facility]) [address] [place], [address], 03/09/2025 08:10:54 03/08/20 25 03/09/2025 CBC WITH DIFFE RENTI AL/PL ATELE T MCH 28.0 pg 26.6-3 3.0 normal Not Available [facility] ([facility]) [address] [place], [address], 03/09/2025 08:10:54 03/08/20 25 03/09/2025 CBC WITH DIFFE RENTI AL/PL ATELE T MCHC 31.4 g/dL 31.5-3 5.7 below low normal Not Available [facility] ([facility]) [address] [place], [address], 03/09/2025 08:10:54 03/08/20 25 03/09/2025 CBC WITH DIFFE RENTI AL/PL ATELE T RDW 14.4 % 11.6-1 5.4 Not Available [facility] ([facility]) [address] [place], [address], 03/09/2025 08:10:54 03/08/20 25 03/09/2025 CBC WITH DIFFE RENTI AL/PL ATELE T platelets 238 x10e3 /uL 150-45 0 normal Not Available [facility] ([facility]) [address] [place], [address], 03/09/2025 08:10:54 03/08/20 25 03/09/2025 CBC WITH DIFFE RENTI AL/PL ATELE T neutrophils 68 % not estab. normal Not Available [facility] ([facility]) [address] [place], [address], 03/09/2025 08:10:54 03/08/20 25 03/09/2025 CBC WITH DIFFE RENTI AL/PL ATELE T lymphs 18 % not estab. normal Not Available [facility] ([facility]) [address] [place], [address], 03/09/2025 08:10:54 03/08/20 25 03/09/2025 CBC WITH DIFFE RENTI AL/PL ATELE T monocytes 9 % not estab. normal Not Available [facility] ([facility]) [address] [place], [address], 03/09/2025 08:10:54 03/08/20 25 03/09/2025 CBC WITH DIFFE RENTI AL/PL ATELE T eos 3 % not estab. normal Not Available [facility] ([facility]) [address] [place], [address], 03/09/2025 08:10:54 03/08/20 25 03/09/2025 CBC WITH DIFFE RENTI AL/PL ATELE T basos 1 % not estab. normal Not Available [facility] ([facility]) [address] [place], [address], 03/09/2025 08:10:54 03/08/20 25 03/09/2025 CBC WITH DIFFE RENTI AL/PL ATELE T immature cells TRADE PROMOTION ANALYST Not Available [facility] ([facility]) [address] [place], [address], 03/09/2025 08:10:54 03/08/20 25 03/09/2025 CBC WITH DIFFE RENTI AL/PL ATELE T neutrophils (absolute) 5.9 x10e3 /uL 1.4-7. 0 normal Not Available [facility] ([facility]) [address] [facility], [place], [address], 03/09/2025 08:10:54 03/08/20 25 03/09/2025 CBC WITH DIFFE RENTI AL/PL ATELE T lymphs (absolute) 1.5 x10e3 /uL 0.7-3. 1 normal Not Available [facility] ([facility]) [address] [facility], [place], [address], 03/09/2025 08:10:54 03/08/20 25 03/09/2025 CBC WITH DIFFE RENTI AL/PL ATELE T monocytes(ab solute) 0.8 x10e3 /uL 0.1-0. 9 normal Not Available [facility] ([facility]) [address] [place], [address], 03/09/2025 08:10:54 03/08/20 25 03/09/2025 CBC WITH DIFFE RENTI AL/PL ATELE T eos (absolute) 0.2 x10e3 /uL 0.0-0. 4 normal Not Available [facility] ([facility]) [address] [facility], [place], [address], 03/09/2025 08:10:54 03/08/20 25 03/09/2025 CBC WITH DIFFE RENTI AL/PL ATELE T baso (absolute) 0.1 x10e3 /uL 0.0-0. 2 normal Not Available [facility] ([facility]) [address] [place], [address], 03/09/2025 08:10:54 03/08/20 25 03/09/2025 CBC WITH DIFFE RENTI AL/PL ATELE T immature granulocytes 1 % not estab. Not Available [facility] ([facility]) [address] [facility], [place], [address], 03/09/2025 08:10:54 03/08/20 25 03/09/2025 CBC WITH DIFFE RENTI AL/PL ATELE T immature grans (abs) 0.1 x10e3 /uL 0.0-0. 1 Not Available [facility] ([facility]) [address] [facility], [place], [address], 03/09/2025 08:10:54 03/08/20 25 03/09/2025 CBC WITH DIFFE RENTI AL/PL ATELE T NRBC TRADE PROMOTION ANALYST Not Available [facility] ([facility]) [address] [facility], [place], [address], 03/09/2025 08:10:54 03/08/20 25 03/09/2025 CBC WITH DIFFE RENTI AL/PL ATELE T hematology comments: TRADE PROMOTION ANALYST Not Available [facility] ([facility]) [address] [facility], [place], [address], 03/09/2025 08:10:54 03/08/20 25 03/09/2025 COMP. METAB OLIC PANEL (14) glucose 84 mg/dL 70-99 normal Not Available [facility] ([facility]) [address] [place], [address], 03/09/2025 08:10:55 03/08/20 25 03/09/2025 COMP. METAB OLIC PANEL (14) BUN 12 mg/dL 8-27 normal Not Available [facility] ([facility]) [address] [place], [address], 03/09/2025 08:10:55 03/08/20 25 03/09/2025 COMP. METAB OLIC PANEL (14) creatinine 0.89 mg/dL 0.76-1 .27 normal Not Available [facility] ([facility]) [address] [facility], [place], [address], 03/09/2025 08:10:55 03/08/20 25 03/09/2025 COMP. METAB OLIC PANEL (14) eGFR 91 mL/mi n/1.7 3 >59 normal Not Available [facility] ([facility]) [address] [facility] [place], [address], 03/09/2025 08:10:55 03/08/20 25 03/09/2025 COMP. METAB OLIC PANEL (14) BUN/creatini ne ratio 13 10-24 normal Not Available [facility] ([facility]) [address] [facility] [place], [address], 03/09/2025 08:10:55 03/08/20 25 03/09/2025 COMP. METAB OLIC PANEL (14) sodium 139 mmol/ L 134-14 4 normal Not Available [facility] ([facility]) [address] [facility] [place], [address], 03/09/2025 08:10:55 03/08/20 25 03/09/2025 COMP. METAB OLIC PANEL (14) potassium 3.5 mmol/ L 3.5-5. 2 normal Not Available [facility] ([facility]) [address] [facility] [place], [address], 03/09/2025 08:10:55 03/08/20 25 03/09/2025 COMP. METAB OLIC PANEL (14) chloride 103 mmol/ L 96-106 normal Not Available [facility] ([facility]) [address] [facility] [place], [address], 03/09/2025 08:10:55 03/08/20 25 03/09/2025 COMP. METAB OLIC PANEL (14) carbon dioxide, total 21 mmol/ L 20-29 normal Not Available [facility] ([facility]) [address] [facility] [place], [address], 03/09/2025 08:10:55 03/08/20 25 03/09/2025 COMP. METAB OLIC PANEL (14) calcium 8.8 mg/dL 8.6-10 .2 normal Not Available [facility] ([facility]) [address] [facility] [place], [address], 03/09/2025 08:10:55 03/08/20 25 03/09/2025 COMP. METAB OLIC PANEL (14) protein, total 6.7 g/dL 6.0-8. 5 normal Not Available [facility] ([facility]) [address] [facility] [place], [address], 03/09/2025 08:10:55 03/08/20 25 03/09/2025 COMP. METAB OLIC PANEL (14) albumin 4.2 g/dL 3.8-4. 8 normal Not Available [facility] ([facility]) [address] [facility] [place], [address], 03/09/2025 08:10:55 03/08/20 25 03/09/2025 COMP. METAB OLIC PANEL (14) globulin, total 2.5 g/dL 1.5-4. 5 Not Available [facility] ([facility]) [address] [facility] [place], [address], 03/09/2025 08:10:55 03/08/20 25 03/09/2025 COMP. METAB OLIC PANEL (14) bilirubin, total 0.6 mg/dL 0.0-1. 2 normal Not Available [facility] ([facility]) [address] [facility] [place], [address], 03/09/2025 08:10:55 03/08/20 25 03/09/2025 COMP. METAB OLIC PANEL (14) alkaline phosphatase 61 IU/L 44-121 normal Not Available [facility] ([facility]) [address] [facility] [place], [address], 03/09/2025 08:10:55 03/08/20 25 03/09/2025 COMP. METAB OLIC PANEL (14) AST (SGOT) 18 IU/L 0-40 normal Not Available [facility] ([facility]) [address] [facility] [place], [address], 03/09/2025 08:10:55 03/08/20 25 03/09/2025 COMP. METAB OLIC PANEL (14) ALT (SGPT) 14 IU/L 0-44 normal Not Available [facility] ([facility]) [address] [facility] [place], [address], 03/09/2025 08:10:55 03/08/20 25 03/09/2025 LIPID PANEL cholesterol, total 144 mg/dL 100-19 9 normal Not Available [facility] ([facility]) [address] [place], [address], 03/09/2025 08:10:55 03/08/20 25 03/09/2025 LIPID PANEL triglyceride s 165 mg/dL 0-149 above high normal Not Available [facility] ([facility]) [address] [place], [address], 03/09/2025 08:10:55 03/08/20 25 03/09/2025 LIPID PANEL HDL cholesterol 40 mg/dL >39 normal Not Available [facility] ([facility]) [address] [place], [address], 03/09/2025 08:10:55 03/08/20 25 03/09/2025 LIPID PANEL VLDL cholesterol mirella 28 mg/dL 5-40 Not Available [facility] ([facility]) [address] [place], [address], 03/09/2025 08:10:55 03/08/20 25 03/09/2025 LIPID PANEL LDL chol calc ([facility]) 76 mg/dL 0-99 Not Available [facility] ([facility]) [address] [place], [address], 03/09/2025 08:10:55 03/08/2003/09/2025 LIPID PANEL LDL calc comment: TRADE PROMOTION ANALYST Not Available [facility] ([facility]) [address] [facility], [place], [address], 03/09/2025 08:10:55 03/08/20 25 03/09/2025 VITAM IN B12 AND FOLAT E vitamin B12 399 pg/mL 232-12 45 normal Not Available [facility] ([facility]) [address] [facility], [place], [address], 03/09/2025 08:10:56 03/08/2003/09/2025 VITAM IN B12 AND FOLAT E folate (folic acid), serum 5.0 NG/mL >3.0 normal A serum folat e scar ntrat ion of less than 3.1 ng/mL is consi dered to repre sent clini mirella defic iency . Not Available [facility] ([facility]) [address] [facility], [place], [address], 03/09/2025 08:10:56 03/08/2003/09/2025 HEMOG LOBIN A1C hemoglobin A1C 5.7 % 4.8-5. 6 above high normal Predi abete s: 5.7 - 6.4 Diabe sami: >6.4 Glyce mathew contr ol for adult s with diabe sami: <7.0 Not Available [facility] ([facility]) [address] [facility], [place], [address], 03/09/2025 08:10:56 03/08/2003/09/2025 PROST ATE-S PECIF IC [...] of jadyn restrepo se. Not Available [facility] ([facility]) [address] [facility], [place], [address], 03/09/2025 08:10:56 03/08/2003/09/2025 VITAM IN D, 25-HY [...] Evelio amaya [place]: [employer] [facility] [employer] . 2. Myah rose [place], Romana laurent [place], Ambrose off-F errar i RODRIGES, et al. Evalu ation , treat ment, and preve ntion of vitam in D defic iency : an Endoc rine Socie ty clini mirella pract ice guide line. JCEM. 2010; 96(7) :1911 -30. Not Available [facility] ([facility]) [address] [facility], [place], [address], 03/09/2025 08:10:57 Result Notes None recorded. Problems Name Problem SNOMED Code Status Onset Date Resolution Date Notes Provider Name and Address Organization Details Recorded Time Generali zed anxiety disorder [id number] Completed 201609/21/2016 Problem Code: F41.1; Problem Code Type: ICD-10; Maya Torres, TECHNICAL SERVICES ANALYST [address] [place], [address] , [employer] 3 11:40:35 Allergic rhinitis caused by pollen [id number] Completed 201610/08/2016 Problem Code: J30.1; Problem Code Type: ICD-10; Not Available [facility] 2 21:50:51 Pain in right knee Completed 201608/23/2016 Problem Code: M25.561; Problem Code Type: ICD-10; Not Available [facility] 2 21:50:53 Pain in left knee Completed 201608/23/2016 Problem Code: M25.562; Problem Code Type: ICD-10; Not Available [facility] 2 21:51:03 Knee pain Completed 201608/23/2016 Problem Code: 719.46; Problem Code Type: ICD-9; JUAN ANTONIO mortensen, [employer] 2 11:16:05 Acute sinusiti s [id number] Completed 201610/05/2016 Problem Code: J01.90; Problem Code Type: ICD-10; JUAN ANTONIO mortensen, [employer] 2 11:16:05 Pain in right knee Completed 201611/04/2016 Problem Code: M25.561; Problem Code Type: ICD-10; Not Available [facility] 2 21:50:53 Prepatel lar bursitis of right knee [id number] Completed 201612/20/2016 Not Available [facility] 2 21:50:54 Knee pain Completed 201611/04/2016 Problem Code: 719.46; Problem Code Type: ICD-9; JUAN ANTONIO mortensen [employer] 2 11:16:05 Prepatel lar bursitis 10091735 Completed 201612/20/2016 Problem Code: 726.65; Problem Code Type: ICD-9; Not Available [facility] 2 21:51:17 Pain in right knee Completed 201612/13/2016 Problem Code: M25.561; Problem Code Type: ICD-10; Not Available [facility] 2 21:51:02 Knee pain Completed 201612/13/2016 Problem Code: 719.46; Problem Code Type: ICD-9; JUAN ANTONIO mortensen [employer] 2 11:16:05 Allergic rhinitis 00329774 Completed 201603/11/2017 Problem Code: J30.9; Problem Code Type: ICD-10; Not Available [facility] 2 21:50:51 Allergic rhinitis 00248807 Completed 201605/06/2017 Problem Code: J30.9; Problem Code Type: ICD-10; Not Available [facility] 2 21:50:51 Allergic rhinitis caused by pollen 59737380 Completed 201608/02/2017 Problem Code: J30.1; Problem Code Type: ICD-10; Not Available [facility] 2 21:50:51 Hyperten sive disorder 70383357 Completed 201708/30/2017 Problem Code: I10; Problem Code Type: ICD-10; Not Available [facility] 2 21:50:50 Acute sinusiti s 36842592 Completed 201708/12/2017 Problem Code: J01.90; Problem Code Type: ICD-10; JUAN ANTONIO mortensen [employer] 2 11:16:05 Benign essentia l hyperten marquis 8849317 Completed 201701/17/2018 Problem Code: 401.1; Problem Code Type: ICD-9; Not Available [facility] 2 21:51:06 Tinea pedis 3142065 Completed 201711/25/2017 Problem Code: B35.3; Problem Code Type: ICD-10; Not Available [facility] 2 21:50:48 Neck pain 53007335 Completed 201711/25/2017 Not Available [facility] 21:50:53 Hyperest hesia 52442274 Completed 201711/25/2017 Problem Code: R20.3; Problem Code Type: ICD-10; Not Available [facility] 2 21:50:55 Skin sensatio n disturba nce 19338679 Completed 201711/25/2017 Problem Code: 782.0; Problem Code Type: ICD-9; Not Available [facility] 2 21:51:11 Acquired deformit y of toe 74233290 Completed 201701/09/2021 Problem Code: 735.8; Problem Code Type: ICD-9; Not Available [facility] 21:51:11 Onychomy cosis due to dermatop hyte 595821301 Completed 201711/25/2017 Problem Code: 110.1; Problem Code Type: ICD-9; Not Available [facility] 2 21:51:15 Acute sinusiti s 98821886 Completed 201701/31/2018 Problem Code: J01.90; Problem Code Type: ICD-10; JUAN ANTONIO mortensen, [place] [employer] 11:16:05 Non-neop lastic nevus 412612247 Completed 201706/28/2019 Not Available [facility] 21:50:58 Large prostate 264880692 Completed 201703/10/2018 Problem Code: N40.0; Problem Code Type: ICD-10; Not Available [facility] 2 21:51:05 Generali zed atherosc lerosis 50726804 Completed 201701/09/2021 Problem Code: 440.9; Problem Code Type: ICD-9; Not Available [facility] 2 21:51:08 Benign prostati c hyperpla mel 134089470 Completed 201701/09/2021 Problem Code: 600.00; Problem Code Type: ICD-9; Not Available [facility] 2 21:51:09 Lacerati on of finger with foreign body 692381567 Completed 201704/25/2018 Problem Code: S61.222A ; Problem Code Type: ICD-10; Not Available [facility] 21:50:56 Pre-surg marjorie evaluati on Completed 201704/25/2018 Not Available [facility] 21:50:58 Open wound of finger with complica tion 01080044 Completed 201704/25/2018 Problem Code: 883.1; Problem Code Type: ICD-9; Not Available [facility] 21:51:10 Abnormal weight gain 063914520 Completed 201705/09/2018 Problem Code: R63.5; Problem Code Type: ICD-10; Not Available [facility] 21:50:55 Mixed hyperlip idemia 373209447 Completed 201701/09/2021 Problem Code: 272.2; Problem Code Type: ICD-9; Tamar mortensen, [employer] 5 09:56:03 Anemia of chronic disease 007455221 Completed 201706/28/2019 Problem Code: D63.8; Problem Code Type: ICD-10; Not Available [facility] 21:50:49 Prostate specific antigen above referenc e range 728555024 Completed 201705/12/2018 Problem Code: R97.20; Problem Code Type: ICD-10; Not Available [facility] 21:50:56 Iron deficien cy anemia secondar y to inadequa te dietary iron intake 515777693 Completed 201705/27/2018 Problem Code: D50.8; Problem Code Type: ICD-10; Not Available [facility] 21:50:49 Ulcerati ve pancolit is 362588196 Completed 201706/28/2019 Problem Code: K51.00; Problem Code Type: ICD-10; Not Available [facility] 21:50:52 Abscess of limb 706206400 Completed 201705/27/2018 Problem Code: L02.415; Problem Code Type: ICD-10; Not Available [facility] 2 21:51:00 Abscess of leg, except foot 22898575 Completed 201705/27/2018 Not Available [facility] 2 21:51:10 Ulcerati ve colitis 64337778 Completed 201701/09/2021 Problem Code: 556.6; Problem Code Type: ICD-9; Not Available [facility] 2 21:51:16 Anemia due to chronic blood loss 887961627 Active 2017 Problem Code: D50.0; Problem Code Type: ICD-10; Not Available [facility] 21:50:49 Ulcerati ve pancolit is 045478677 Completed 201706/28/2019 Problem Code: K51.00; Problem Code Type: ICD-10; Not Available [facility] 2 21:50:52 Ulcerati ve colitis 28228578 Completed 201701/09/2021 Problem Code: 556.6; Problem Code Type: ICD-9; Not Available [facility] 2 21:51:17 Acute posthemo rrhagic anemia 882120305 Completed 201706/12/2018 Problem Code: D62; Problem Code Type: ICD-10; Not Available [facility] 2 21:50:49 Acute posthemo rrhagic anemia 218864131 Completed 201706/17/2018 Problem Code: D62; Problem Code Type: ICD-10; Not Available [facility] 2 21:50:49 Acute posthemo rrhagic anemia 237513843 Completed 201706/24/2018 Problem Code: D62; Problem Code Type: ICD-10; Not Available [facility] 2 21:50:49 Pain in right knee Completed 201705/01/2018 Problem Code: M25.561; Problem Code Type: ICD-10; Not Available [facility] 2 21:50:53 Pain in left knee Completed 201705/01/2018 Problem Code: M25.562; Problem Code Type: ICD-10; Not Available [facility] 2 21:50:54 Knee pain Completed 201705/04/2022 Problem Code: 719.46; Problem Code Type: ICD-9; JUAN ANTONIO BROWNNER [facility], [facility] 2 11:16:05 Acute sinusiti s 20633408 Completed 201707/03/2018 Problem Code: J01.90; Problem Code Type: ICD-10; JUAN ANTONIO BROWNNER [facility], [facility] 2 11:16:05 Acute bronchit is 96504785 Completed 201708/18/2018 Problem Code: J20.9; Problem Code Type: ICD-10; Not Available [facility] 2 21:50:51 Idiopath ic osteoart hritis 888196872 Active 2018 Problem Code: M17.0; Problem Code Type: ICD-10; Not Available [facility] 2 21:51:01 Allergic sensitiz ation 920106212 Completed 201805/04/2022 JUAN ANTONIO mortensen, [employer] 2 11:16:05 Mixed hyperlip idemia 190847290 Active 2018 Problem Code: E78.2; Problem Code Type: ICD-10; Tamar Durham [place], [facility] 5 09:56:03 Large prostate 139367487 Active 2018 Problem Code: N40.0; Problem Code Type: ICD-10; Not Available [facility] 2 21:50:54 Dysthymi a 40466336 Active 2018 Problem Code: R53.81; Problem Code Type: ICD-10; Not Available [facility] 2 21:51:11 Primary insomnia 5481145 Active 2018 Problem Code: F51.01; Problem Code Type: ICD-10; Not Available [facility] 2 21:50:50 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 05117750 Active 2018 Problem Code: M50.00; Problem Code Type: ICD-10; Not Available [facility] 21:50:54 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 93250959 Active 2018 Problem Code: G90.09; Problem Code Type: ICD-10; Not Available [facility] 21:50:50 Pain in left knee Active 2018 Problem Code: M25.562; Problem Code Type: ICD-10; Not Available [facility] 2 21:50:53 Post-mahesh gical wound care Completed 201805/04/2022 Problem Code: Z48.02; Problem Code Type: ICD-10; JUAN ANTONIO mortensen [facility] 11:16:05 Body mass index 30+ - obesity 141125352 Active 2018 Problem Code: Z68.35; Problem Code Type: ICD-10; Not Available [facility] 21:50:59 Diabetes mellitus screenin g Completed 201805/04/2022 Problem Code: Z13.1; Problem Code Type: ICD-10; JUAN ANTONIO mortensen [facility]. 11:16:05 Body mass index 30+ - obesity 375054606 Completed 201807/17/2020 Problem Code: Z68.35; Problem Code Type: ICD-10; Not Available [facility] 2 21:51:01 [facility] 16510010 Completed 201812/14/2019 Problem Code: J98.11; Problem Code Type: ICD-10; Not Available [facility] 21:50:52 General examinat ion of patient Completed 201806/28/2019 JUAN ANTONIO mortensen [facility] 2 11:16:05 Body mass index 30+ - obesity 956379716 Completed 201807/17/2020 Problem Code: Z68.35; Problem Code Type: ICD-10; Not Available [facility] 21:51:01 Body mass index 30+ - obesity 407998985 Completed 201807/17/2020 Problem Code: Z68.35; Problem Code Type: ICD-10; Not Available [facility] 2 21:51:00 Body mass index 30+ - obesity 810014818 Completed 201907/17/2020 Problem Code: Z68.36; Problem Code Type: ICD-10; Not Available [facility] 2 21:51:13 Disorder of skin and/or subcutan eous tissue 39275908 Completed 201905/04/2022 JUAN ANTONIO mortensen, [facility]. 11:16:05 Body mass index 30+ - obesity 207138010 Completed 201907/17/2020 Problem Code: Z68.36; Problem Code Type: ICD-10; Not Available [facility] 2 21:51:00 General examinat ion of patient Completed 201905/04/2022 JUAN ANTONIO ARELLANO [employer] 2 11:16:05 General examinat ion of patient Completed 202009/15/2020 JUAN ANTONIO EILEEN [employer], [facility] 11:16:05 Body mass index 30+ - obesity 588283723 Completed 202009/15/2020 Problem Code: Z68.36; Problem Code Type: ICD-10; Not Available [facility] 2 21:51:14 Cough 78928109 Completed 202004/02/2021 Problem Code: R05; Problem Code Type: ICD-10; Not Available [facility] 21:50:54 Acute sinusiti s 66640645 Completed 202005/04/2022 Problem Code: J01; Problem Code Type: ICD-10; JUAN ANTONIO mortensen, [employer] 2 11:16:05 Eruption 083825864 Completed 202005/04/2022 Problem Code: R21; Problem Code Type: ICD-10; JUAN ANTONIO mortensen, [employer] 2 11:16:05 Contusio n of anterior abdomina l wall 846838925 Completed 202005/04/2022 JUAN ANTONIO mortensen, [employer] 2 11:16:05 Malignan t neoplasm of skin 217444832 Completed 202004/02/2021 Problem Code: C44.90; Problem Code Type: ICD-10; Not Available [facility] 2 21:50:49 Allergic rhinitis 45029386 Active 2020 Problem Code: J30.9; Problem Code Type: ICD-10; Not Available [facility] 21:50:52 Abrasion of skin of palm of hand 642210212 Completed 202109/24/2021 Not Available [facility] 21:50:56 Current drug user 305217310 Active 2021 Problem Code: Z79.899; Problem Code Type: ICD-10; Not Available [facility] 2 21:51:02 Acute frontal sinusiti s 47337718 Completed 202105/04/2022 Problem Code: J01.1; Problem Code Type: ICD-10; UJAN ANTONIO mortensen, [employer] 2 11:16:06 Generali zed anxiety disorder 95619447 Active 2022 Problem Code: F41.1; Problem Code Type: ICD-10; Maya Torres APRN [address] [place] [address], [address] , [employer] 3 11:40:35 Problem Notes None recorded. Procedures Surgical History Date Name Laterality Status Provider Name and Address Organization Details Recorded Time 7 hernia repair completed Not Available [facility] 03/23/2022 22:56:15 Imaging Results None recorded. Procedure [...] Updated DateTime 5 175.26 cm 37.7 kg/m2 672433. 05 g 87 /min 94 % 192/72 mm[Hg] 158/78 mm[Hg] 132/76 mm[Hg] Tamar Durham [facility] [employer] 5 11:32:00 Date Recorded Body height Body mass index (BMI) Body weight Heart rate Oxygen saturation Systolic And Diastolic Provider Name and Address Organization Details Last Updated DateTime 5 175.26 cm 38.3 kg/m2 265543. 82 g 96 /min 92 % 130/80 mm[Hg] Tamar Durham [employer] 5 13:49:03 Date Recorded Body height Body mass index (BMI) Body weight Heart rate Oxygen saturation Systolic And Diastolic Provider Name and Address Organization Details Last Updated DateTime 5 175.26 cm 36.9 kg/m2 839467. 09 g 101 /min 92 % 130/79 mm[Hg] Tamar Durham [employer] 5 10:51:45 Date Recorded Body height Body mass index (BMI) Body weight Body temperature Heart rate Oxygen saturation Systolic And Diastolic Provider Name and Address Organization Details Last Updated DateTime 5 175.26 cm 36.9 kg/m2 487087. 09 g 97.3 [degF] 71 /min 90 % 138/81 mm[Hg] Tamar [employer] 5 08:44:21 Date Recorded Body height Body mass index (BMI) Body weight Heart rate Oxygen saturation Systolic And Diastolic Provider Name and Address Organization Details Last Updated DateTime 5 175.26 cm 36.8 kg/m2 712824. 5 g 83 /min 91 % 134/85 mm[Hg] Tamar [employer] 5 10:47:28 Social History Question Answer Notes LastModified by Organizat ion Details LastModified Time Tobacco Smoking Status Former Smoker JUAN ANTONIO mortensen [facility] 05/04/2022 11:17:53 Do You Have An Advance Directive? No [email or web address] Information n ot available 06/04/2022 Are You Blind Or Do You Have Difficulty Seeing? No [email or web address] Information n ot available 05/04/2022 What Is Your Level Of Caffeine Consumption? Moderate Information not available 11/30/2022 Are You A Caregiver? No [email or web address] Information not available 06/04/2022 In The 14 [...] Type Of Diet Are You Following? REGULAR Information n ot available 06/04/2022 Have There Been Any Changes To Your Family Or Social Situation? No [email or web address] Information no t available 06/04/2022 When Did You Quit Smoking? 6-10yearssinc [email or web address] e Information not available 06/01/2024 Do You Have A Medical Power Of Commercial Intern? No Information not available 06/04/2022 What Was The Date Of Your Most Recent Tobacco Screening? 05/09/2025 Information not available 05/09/2025 What Is Your Current Pack Years? 20-29packyear s [email or web address] Information not available 05/04/2022 What Is Your Relationship Status? Information not available 05/04/2022 Do You Use Your Seat Belt Or Car Seat Routinely? Yes [email or web address] Information not available 06/04/2022 Do You Have Smoke And Carbon Monoxide Detectors In Your Home? Yes [email or web address] Information not available 06/04/2022 How Much Tobacco Do You Smoke? 1 PPD Information not available 06/01/2024 Do You Use Sunscreen Routinely? No [email or web address] Information not available 06/04/2022 Have You Recently Traveled Abroad? No Information not available 06/04/2022 Do You Have Difficulty Walking Or Climbing Stairs? No [email or web address] Information not available 05/04/2022 Are You Currently In School? No Information not available 06/04/2022 Do You Have Any Dietary Restrictions? No [email or web address] Information not available 06/04/2022 Sex: Male Functional Status Question Answer Note LastModified by Organizat ion Details LastModified Time Do you use any illicit or recreational drugs? No Information not available 11/30/2022 What is your level of alcohol consumption? None Information not available 05/04/2022 Are you currently employed? No [email or web address] Information not available 06/04/2022 Do you have transportation difficulties? No [email or web address] Information not available 05/04/2022 Are you able to walk independently without assistance or assistive devices? YESWOREST [email or web address] Information not available 05/04/2022 Do you have difficulty doing errands alone? No [email or web address] Information not available 05/04/2022 Are you able to care for yourself independently? Yes [email or web address] Information not available 05/04/2022 Do you have difficulty dressing, bathing, grooming, or toileting? No [email or web address] Information not available 05/04/2022 What is your exercise level? None [email or web address] Information not available 06/04/2022 Mental Status Question Answer Note LastModified by Organization D etails LastModified Time Do you have difficulty concentrating, remembering or making decisions? No Information no t available 05/04/2022 Family History Relationship Description Onset Age of this Age Resolved Age Notes LastModified by Organization Details LastModified Time Unspecified Relation Family history of Hypertension [email or web address] Not available 11:16:26 Unspecified Relation Family history of malignant neoplasm Not available 05/04 11:16:34 Unspecified Relation Family history of polyp of colon [email or web address] Not available 05/04 11:16:39 Medical History Condition Response Allergies (Food, seasonal, environmental ) Y Hypertension Y GI Problems Y Immunizations Vaccine Type Date Status Note Provider Name and Address Organization Details Recorded Time zoster recombinant 024 cancelled patient objection Maya Torres APRN [address] [place], [address], [employer] 10/03/2023 13:15:21 pneumococcal polysaccharide PPV23 019 completed Tamar mortensen [employer] 05/09/2025 10:23:09 Pneumococcal conjugate PCV 13 018 completed Tamar Durham null, [employer] 05/09/2025 10:23:09 COVID-19, mRNA, LNP-S, PF, 100 mcg/0.5mL dose or 50 mcg/0.25mL dose 021 completed Tamar Durham null, [employer] 05/09/2025 10:23:09 COVID-19, mRNA, LNP-S, PF, 100 mcg/0.5mL dose or 50 mcg/0.25mL dose 021 completed Tamar Durham null, [employer] 05/09/2025 10:23:09 COVID-19, mRNA, LNP-S, PF, 100 mcg/0.5mL dose or 50 mcg/0.25mL dose 021 completed Tamar Durham null, [employer] 05/09/2025 10:23:09 Influenza, high-dose, trivalent, PF 019 completed JUAN ANTONIO ARELLANO null, [employer] 07/02/2022 11:24:10 Influenza, split virus, trivalent, PF 017 completed JUAN ANTONIO ARELLANO null, [employer] 07/02/2022 11:24:10 Influenza, MDCK, quadrivalent, PF 016 completed JUAN ANTONIO ARELLANO null, [employer] 07/02/2022 11:24:10 Tdap 016 completed JUAN ANTONIO ARELLANO null, [employer] 07/02/2022 11:24:10 Influenza, high-dose, trivalent, PF 018 completed JUAN ANTONIO ARELLANO null, [employer] 07/02/2022 11:24:10 COVID-19, mRNA, LNP-S, bivalent, PF, 50 mcg/0.5 mL or 25mcg/0.25 mL dose 022 completed JUAN ANTONIO mortensen, [employer] 07/02/2022 11:24:10 Influenza, high-dose, quadrivalent, PF 022 completed JUAN ANTONIO mortensen, [employer] 07/02/2022 11:24:10 Influenza, high-dose, quadrivalent, PF 021 completed JUAN ANTONIO mortensen [employer] 07/02/2022 11:24:10 RSV, recombinant, protein subunit RSVpreF, adjuvant reconstituted, 0.5 mL, PF 023 completed Not Available [facility] 05/09/2025 10:21:48 Influenza, high-dose, quadrivalent, PF 023 completed Not Available [facility] 05/09/2025 10:21:48 Influenza, high-dose, trivalent, PF 024 completed Not Available [facility] 05/09/2025 10:21:48 Pneumococcal conjugate PCV20, polysaccharide [id number] conjugate, adjuvant, PF 025 completed Not Available [facility] 05/09/2025 10:21:48 Influenza, high-dose, trivalent, PF 025 completed Not Available [facility] 05/09/2025 10:21:48 Influenza, high-dose, quadrivalent, PF 020 completed Tamar mortensen, [place] [employer] 05/09/2025 10:23:09 Past Encounters Encounter ID Performer Location Encounter Start Date Encounter Closed Date Diagnosis/Indication Diagnosis SNOMED-CT Code Diagnosis ICD10 Code Diagnosis IMO Codes Diagnosis Note [id number] Maya Torres [address] [address] 05/04/2022 11:06:44 05/04/2022 11:36:23 Dysthymia 29179540 R53.81 Idiopathic peripheral autonomic neuropathy 99095445 G90.09 [id number] Maya Torres [address] [address] 06/04/2022 10:50:55 06/04/2022 11:05:53 Idiopathic peripheral autonomic neuropathy 63969000 G90.09 Anxiety 82884235 F41.9 Allergic rhinitis 334759 04 J30.9 Body mass index 30+ - obesity 669878903 Z68.38 Acute sinusitis 46562140 J01.90 Dysthymia 92454532 R53.8 1 [id number] [place] [address] 07/02/2022 11:05:52 07/02/2022 11:41:18 Idiopathic peripheral autonomic neuropathy 91856224 G90.09 Mixed hyperlipidemia 267 912148 E78.2 Anxiety 84996103 F41.9 Body mass index 30+ - obesity 211570594 Z68.38 [id number] [place] [address] 0 07/15/2022 10:31:53 07/15/2022 13:11:18 Acute upper respiratory infection 06588000 J06.9 [id number] [place] [address] 0 08/02/2022 11:24:44 08/02/2022 11:46:36 Anxiety 56672179 F41.9 Allergic rhinitis 796898 04 J30.9 Idiopathic peripheral autonomic neuropathy 38915881 G90.09 Body mass index 30+ - obesity 340701200 Z68.38 [id number] [place] [address] 0 09/02/2022 11:07:10 09/02/2022 11:51:01 Dysthymia 41266466 R53.81 Anxiety 90505391 F41.9 Idiopathic peripheral autonomic neuropathy 75485383 G90.09 Body mass index 30+ - obesity 454164769 Z68.38 [id number] Maya Torres [place] [address] 0 10/01/2022 11:06:15 10/01/2022 11:37:36 Idiopathic peripheral autonomic neuropathy 74821978 G90.09 Anxiety 55796360 F41.9 Acute sinusitis 07503525 J01.90 [id number] [place] [address] 11/01/2022 10:18:50 11/01/2022 10:51:54 Cough 19578436 R05.9 Wheezing 98285035 R06.2 Idiopathic peripheral autonomic neuropathy 12233392 G90.09 Anxiety 71517004 F41.9 Body mass index 30+ - obesity 273231015 Z68.38 [id number] Maya Torres [address] 0 11/30/2022 10:11:55 11/30/2022 10:33:30 Gastroesophageal reflux disease without esophagitis 878278910 K21.9 Anxiety 86920926 F41.9 Idiopathic peripheral autonomic neuropathy 60031886 G90.09 Allergic rhinitis 467808 04 J30.9 [id number] Maya Torres [place] [address] 0 12/31/2022 10:19:21 12/31/2022 11:25:07 Fatigue 12071505 R53.83 Mixed hyperlipidemia 267 600142 E78.2 Nocturia 844202737 R35.1 Long-term drug therapy 743626699 Z79.899 Idiopathic peripheral autonomic neuropathy 00943666 G90.09 Anxiety 78469226 F41.9 Body mass index 30+ - obesity 804121848 Z68.38 [id number] [place] [address] 01/31/2023 10:35:26 01/31/2023 11:13:41 Idiopathic peripheral autonomic neuropathy 78288901 G90.09 Anxiety 79945214 F41.9 [id number] [place] [address] 03/03/2023 10:21:47 03/03/2023 10:54:56 Idiopathic peripheral autonomic neuropathy 67926458 G90.09 Anxiety 89264325 F41.9 Body mass index 30+ - obesity 429208263 Z68.38 [id number] [place] [address] 0 04/04/2023 11:25:04 04/04/2023 11:54:55 Allergic rhinitis 75292425 J30.9 Anxiety 48320575 F41.9 Idiopathic peripheral autonomic neuropathy 92317716 G90.09 Body mass index 30+ - obesity 082034645 Z68.38 [id number] [place] [address] 0 06/03/2023 10:34:54 06/03/2023 11:28:21 Dyspnea on exertion 62600311 R06.09 Essential hypertension 90665285 I10 Mixed hyperlipidemia 267 300837 E78.2 Idiopathic peripheral autonomic neuropathy 82193064 G90.09 Generalize d anxiety disorder 20095565 F41.1 Body mass index 30+ - obesity 575899274 Z68.38 [id number] [place] [address] 0 08/04/2023 10:38:40 08/04/2023 11:02:33 Dyspnea on exertion 11702392 R06.09 Anxiety 38781066 F41.9 Idiopathic peripheral autonomic neuropathy 56315552 G90.09 Body mass index 30+ - obesity 241132177 Z68.38 [id number] [place] [address] 0 10/03/2023 10:34:44 10/03/2023 11:27:11 Long-term drug therapy 032332320 Z79.899 Body mass index 30+ - obesity 922701875 Z68.38 Adult [facility] th examination 529306521 Z00.[address] vaccination declined 1436695469 102 Z28.20 Anxiety 74435392 F41.9 Idiopathic peripheral autonomic neuropathy 18353394 G90.09 Large prostate 357354847 N40.0 Mixed hyperlipidemia 267 255446 E78.2 Fatigue 48985969 R53.83 Chronic cough 95407224 R 05.3 [id number] Maya Torres, TECHNICAL SERVICES ANALYST [place] [address] 12/02/2023 10:24:11 12/02/2023 11:04:47 Pain of left hip joint 8584050949 26341 M25.552 Anxiety 68934956 F41.9 Idiopathic peripheral autonomic neuropathy 38982416 G90.09 Body mass index 30+ - obesity 554940520 Z68.38 [id number] [place] [address] 01/31/2024 10:36:29 01/31/2024 11:31:01 Idiopathic peripheral autonomic neuropathy 59606675 G90.09 Anxiety 25919050 F41.9 Pain of le ft hip joint 6425937567 01063 M25.552 Body mass index 30+ - obesity 011998239 Z68.38 [id number] [place] [address] 04/03/2024 10:26:32 04/03/2024 10:52:47 Pain of left hip joint 3449618159 34808 M25.552 Idiopathic peripheral autonomic neuropathy 52617438 G90.09 Generalize d anxiety disorder 99447838 F41.1 Body mass index 30+ - obesity 134328274 Z68.38 [id number] [place] [address] 06/01/2024 13:40:03 06/01/2024 14:09:33 Idiopathic osteoarthritis 987299436 M17.0 Acute sinusitis 25539648 J01.90 Generalize d anxiety disorder 82984192 F41.1 Idiopathic peripheral autonomic neuropathy 38062541 G90.09 Body mass index 30+ - obesity 465012978 Z68.38 [id number] Maya Torres [place] [address] 07/31/2024 10:27:29 07/31/2024 13:01:30 Generalized anxiety disorder 40171240 F41.1 Pneumonia 823549034 J18. 9 Chronic ob structive pulmonary disease 78981129 J44.9 Abdominal pain 85047105 R10.9 Fatigue 50046282 R53.83 Hyperlipidemia 90876402 E78.5 Hyperglycemia 97528914 R 73.9 Vitamin D deficiency 347 92159 E55.9 Vitamin B deficiency 479 36591 E53.9 Nocturia 170323237 R35.1 Iron defic iency anemia 10473823 D50.9 Body mass index 30+ - obesity 855485789 Z68.38 [id number] [place] [address] 09/27/2024 11:09:36 09/27/2024 11:58:20 Long-term drug therapy 374011460 Z79.899 Gastroesop hageal reflux disease without esophagitis 606978125 K21.9 Generalize d anxiety disorder 18756570 F41.1 Body mass index 30+ - obesity 082577564 Z68.38 [id number] [place] [address] 12/03/2024 13:33:16 12/03/2024 14:18:36 Generalized anxiety disorder 10312062 F41.1 Idiopathic osteoarthritis 782037586 M17.0 Body mass index 30+ - obesity 046438133 Z68.38 510117 [id number] [place] [address] 02/01/2025 10:37:10 02/01/2025 11:13:22 Generalized anxiety disorder 55976406 F41.1 controlled substance agreement and drug screen UTD at this time. Body mass index 30+ - obesity 792364479 Z68.38 646482 Allergic rhinitis 762216 04 J30.9 Dysthymia 79830400 R53.8 1 Large prostate 550000846 N40.0 Chronic ob structive pulmonary disease 33457301 J44.9 Pain of mu ltiple joints 29421755 M25.50 939854 [id number] [place] [address] 03/08/2025 08:21:58 03/08/2025 10:43:55 Acute bacterial sinusitis 44319096 J01.90 B96.89 76453 Fatigue 55220995 R53.83 8238343 Mixed hyperlipidemia 267 435471 E78.2 90347 Hyperglycemia 45284975 R 73.9 77498 Nocturia 137843360 R35.1 91671 Vitamin D deficiency 347 17585 E55.9 80417 Cobalamin deficiency 190 056592 E53.8 32130 History an d physical examination, annual for health maintenance 98940359 Z00.00 8488625318 Body mass index 30+ - obesity 318247627 Z68.36 833723 [id number] [place] [address] 05/09/2025 10:20:23 05/09/2025 11:27:11 Generalized anxiety disorder 62763581 F41.1 controlled substance agreement and drug screen UTD at this time. Essential hypertension 52003357 I10 Gastroesop hageal reflux disease without esophagitis 724165054 K21.9 Allergic rhinitis 817422 04 J30.9 Body mass index 30+ - obesity 454770208 Z68.36 789638 Health Concerns Section Related Observation LastModified by Organization Detai ls LastModified Time None Recorded Concern Status LastModified by Organization Details LastModified Time None Recorded Advance Directives Directive N: Payers Insurance Date Sequence Insurance Name Policy Number Policy Sutherland Covered Member ID Sutherland Member ID Guarantor Name 12/05/2024 [place] [facility] Stephane Mendieta [id number] Stephane Mendieta 05/06/2025 [place] [facility] Stephane Mendieta [id number] Stephane Mendieta 05/06/2025 2 [employer] SU[employer]AL - [employer] (MEDICARE SUPPLEMENT) Stephane Mendieta [id number] Stephane Mendieta 05/06/2025 1 [place] Stephane Mendieta [id number] Stephane Mendieta Notes Date Note Type Note Provider Name and Address Organization Details Recorded Time 09/27/2024 text/html 73 year old male presents for chronic disease fu. Denies acute concerns at this time. [facility] pulm gave him samples of trelegy but is unable to afford it monthly. Will give him samples today. States cough has improved. He recently got refill on lorazepam since he forgot to request febs refill. He is to let us know when he need his next refill. pt agrees Maya Torres APRN [address] [place], [address], [employer] 09/27/2024 12:37:03 12/03/2024 text/html pt here today for medication refills. pt states hes doing well on current medication regime and has no new complaints today. pt states that he has recently had more skin cancers removed, and needs another one removed. he is having spinal sx again the first of december to replace a lead. Maya Torres APRN [address] [place], [address], [employer], [employer] 12/03/2024 15:29:36 02/01/2025 text/html pt here today [...] he doesnt care. Maya Torres APRN [address] [place], [address], [employer] 02/01/2025 12:22:29 03/08/2025 text/html Annual WellnessReported [...] fluids. return for worsening symptoms. Tamar mortensen, [employer] 03/08/2025 10:12:47 05/09/2025 text/html pt here today for medication refills. pt states hes doing well on current medication regime and has no new complaints today. pt requested more trelegy samples and i gave him 4. Maya Torres, SIM[address] [place], [address], [employer] 05/09/2025 18:02:01
--- OUTSIDE RECORDS SUMMARY | 2025-07-09 10:31 | XMS_ITS | Clinical Summary ---
[facility] Organization [facility] Address [address] [place] [address] Care Team Providers Care Quality Process Lead Name Role Phone Maya Torres Primary Care Provider + [phone] Allergies No known active allergies Medications DULoxetine [...] Completed 10/27/2020 Medical Devices Implanted Type Area Emergency Department Manager Device Identifier Shelf Expiration Date Model / Serial / Lot Ld Stim Precsn Trial Lnr 8contct St/Tp50 - [id number] - [id number] Implanted:Qty : 1 on 10/05/2022 by Jerome Morrissey MD at [facility] Implant N/A: Spine Thoracic [employer] 08/30/2024 [id number] / [id number] / Ld Stim Precsn Trial Lnr 8contct St/Tp50 - [id number] - [id number] Implanted:Qty : 1 on 10/05/2022 by Jerome Morrissey MD at [facility] Implant N/A: Spine Thoracic [employer] 08/26/2024 [id number] / [id number] / Anchr Ld Scs Clikx Ea/St/2 - [id number] Implanted:Qty : 1 on 10/05/2022 by Jerome Morrissey MD at [facility] Implant N/A: Spine Thoracic [employer] 01/06/2024 [id number] / / [id number] Kt Ipg Wave[employer] Alpha 16/Contct - [id number] - [id number] Implanted:Qty : 1 on 10/05/2022 by Jerome Morrissey MD at [facility] Implant N/A: Spine Thoracic [employer] [id number] 09/13/2024 [id number] / [id number] / [id number] Insurance MEDICARE A & B Member Subscriber Plan / Payer (Ef fective 2017-Present) Name:Stephane Mendieta Member ID:[id number] Relation to Subscriber:Self Name:Stephane Mendieta Subscriber ID:[id number] Payer ID:[id number] Group ID:Not on file Type:Not on file Address: [facility] [id number] [place] [id number] [facility] [employer] Care Teams Quality Process Lead Relationship Specialty Start Date End Date Maya Torres Kaylyn [place] [id number] PCP - General Nurse Practitioner 09/28/22
--- OUTSIDE RECORDS SUMMARY | 2025-07-09 10:31 | XMS_ITS | Encounter Summary ---
Author Organization [employer] ([place], [place], [place], [place], [place]) Address [address] [place] [address] Care Team Providers Care Data Abstractor Name Role Phone Maya Torres APRN Primary Care Provider [phone]- [phone] Encounter Details Date Type Department Care Team (Late st Contact Info) Description 10/18/2020 Transcribed Document [facility] [place] [address] [place] [address] ProviderJean MD [address] [place] [address] Social History Tobacco Use Types [...] 10/18/2020 9:20 PM CDT Electronically signed by [facility] [employer]version [employer] Machine [employer]ner at 11/04/2022 3:18 PM CDT documented in this encounter Plan of Treatment Not on file documented as of this encounter Visit Diagnoses Not on filedocumented in this encounter Care Teams Data Abstractor Relationship Specialty Start Date End Date Maya Torres APRN [address] [facility] [address] [place] [address] PCP - General Family Medicine 08/27/22 documented as of this encounter
--- OUTSIDE RECORDS SUMMARY | 2025-07-09 10:31 | XMS_ITS ---
Author Organization [facility] Address [address] [place] [address] Phone Care Team Providers Care Vocational Education Teacher Name Role Phone Jose Cruz COLEMAN, Domingo Jett Unavailable [phone] Olga Licea APRN Unavailable [phone] Reason for Referral 11/29/2024 Encounter for Follow Up Date Recorded Target Due Date Referral Type Referring Prov ider Reason For Referral 11/29/2024 Issa Rodriguez MD See PCP for BP Last Documented On 5 3:07PM ; [facility] 11/29/2024 Issa Rodriguez MD referral to physician Last Documented On 5 3:07PM ; [facility] 04/22/2022 Encounter for Follow Up Date Recorded Target Due Date Referral Type Referring Prov ider Reason For Referral 04/22/2022 Issa Rodriguez MD See PCP for BP Last Documented On 2 10:14AM ; [facility] 05/02/2022 Issa Rodriguez MD referral to physician Last Documented On 2 10:49AM ; [facility], [facility] 04/12/2022 Encounter for Follow Up Date Recorded Target Due Date Referral Type Referring Prov ider Reason For Referral 04/12/2022 Holden Modi PA-C See PC P for BP Last Documented On 2 9:57AM ; [facility] 04/07/2021 Encounter for Follow Up Date Recorded [...] 1 8:43AM ; [facility] Problems Includes: Active, inactive, and resolved Problems [...] 5 1:40AM ; [facility] Joint Pain in Both Knees 04/05/2019 04/05/2019 [facility] zachary Billingsley MD Active Last Documented On 5 1:39AM ; [facility] Plan of Treatment Findings Encounter Date Patient screened for future fall risk: documentation of any fall with injury in past year Follow Up with Issa Rodriguez MD 06/06/2025 Last Documented On 5 8:58AM ; [facility] Patient screened for future fall risk: documentation of any fall with injury in past year Post Op with Holden Modi PA-C 01/14/2025 Last Documented On 5 10:36AM ; [facility] Patient screened for future fall risk: documentation of any fall with injury in past year Post Op with Holden Modi PA-C 01/07/2025 Last Documented On 5 10:49AM ; [facility] Patient screened for future fall risk: documentation of any fall with injury in past year Post Op with Holden Modi PA-C 12/28/2024 Last Documented On 5 9:50AM ; [facility] Patient screened [...] PA-C Last Documented On 2 1:06PM ; [facility] Future Appointments Date Time Location Provi tahira Post Op 07/19/2025 11:00AM [facility] PAIUTE-SHOSHONEIrais Modi PA-C Last Documented On 5 10:29AM ; [facility] Instructions to patient Lose weight Last Documented On 5 8:58AM ; [facility] Lose weight Last Documented On 5 10:36AM ; [facility] Lose weight Last Documented On 5 10:49AM ; [facility] Lose weight Last Documented On 5 9:50AM ; [facility] Lose weight Last Documented On 5 2:27PM ; [facility] Lose weight Last Documented On 5 3:07PM ; [facility] Lose weight Last Documented On 2 10:14AM ; [facility] Lose weight Last Documented On 2 9:57AM ; [facility] Lose weight Last Documented On 1 8:13AM ; [facility] Lose weight Last Documented On 1 8:43AM ; [facility] Instructions for patient SEE PCP FOR BP AND WT Last Documented On 0 11:13AM ; [facility] Instructions for patient Last Documented On 0 3:05PM ; [facility] Instructions for patient Last Documented On 0 1:32PM ; [facility] Instructions for [...] 12/28/2024 Last Documented On 5 9:50AM ; [facility] Overweight IN [...] WT Last Documented On 0 11:13AM ; [facility] Instructions for patient Last Documented On 0 3:05PM ; [facility] Instructions for patient Last Documented On 0 1:32PM ; [facility] Instructions for patient to see pcp for bp Last Documented On 0 1:48PM ; [facility] Instructions for patient to see pcp for bp Last Documented On 9 3:13PM ; [facility] Instructions for patient to see pcp for bp Last Documented On 9 2:58PM ; [facility], [facility] Instructions for patient to see pcp for bp Last Documented On 9 9:14AM ; [facility], [facility] Medical Equipment - Implanted Devices Includes: Current and historical Devices No Medical Equipment Recorded Medications Includes: Current and historical Medications Current Medications (continue as prescribed) Percocet 5-325 MG Oral Tablet 07/03/2025 - 07/18/2025 Provider: Issa Rodriguez MD Diagnosis: 1 po q 4h prn pain Last Documented On 5 8:39AM By Issa Rodriguez ; [facility], [facility] Clindamycin HCl 300 MG Oral Capsule 01/07/2025 Provi tahira: Holden Modi PA-C Diagnosis: Last Documented On 5 10:36AM By Quentin Burk ; [facility], [facility] oxyCODONE-Acetaminophen 5-325 MG Oral Tablet 5 Provider: Issa Rodriguez MD Diagnosis: Last Documented On 5 9:50AM By Quentin Burk ; [facility], [facility] Pantoprazole Sodium 40 MG Or al Tablet Delayed Release 12/09/2024 Provider: Maya Torres AVIATION ELECTRONIC WARFARE OPERATOR Diagnosis: Last Documented On 5 9:50AM By Quentin Burk ; [facility] LORazepam 1 MG Oral Tablet 12/04/2024 Provider: Nancy Torres AVIATION ELECTRONIC WARFARE OPERATOR Diagnosis: Last Documented On 5 9:50AM By Quentin Burk ; [facility], [facility] Doxycycline Hyclate 100 MG Oral Capsule 12/04/2024 Papito mccallum: Diagnosis: Last Documented On 5 9:50AM By Quentin Burk ; [facility] sulfaSALAzine 500 MG Oral Tablet 11/27/2024 Provider : Maya Torres AVIATION ELECTRONIC WARFARE OPERATOR Diagnosis: Last Documented On 5 9:50AM By Quentin Burk ; [facility] Albuterol Sulfate HFA 108 (9 0 Base) MCG/ACT Inhalation Aerosol Solution 11/07/2024 Provider: Maya anderson AVIATION ELECTRONIC WARFARE OPERATOR Diagnosis: Last Documented On 5 9:50AM By Quentin Burk ; [facility] Finasteride 5 MG Oral Tablet 11/03/2024 Provider: Maya Torres AVIATION ELECTRONIC WARFARE OPERATOR Diagnosis: Last Documented On 5 9:50AM By Quentin Burk ; [facility] Tamsulosin HCl 0.4 MG Oral Capsule 11/03/2024 Provid er: Maya Torres AVIATION ELECTRONIC WARFARE OPERATOR Diagnosis: Last Documented On 5 3:49PM By Marifer Nuñez ; [facility], [facility] Amoxicillin 875 MG Oral Tablet 09/11/2024 Provider: Diagnosis: Last Documented On 5 9:50AM By Quentin Burk ; [facility] predniSONE 10 MG Oral Tablet [...] On 1 8:34AM By Deborah Lowery ; [facility] Esomeprazole Magnesium 40 MG Oral Capsule Delayed Rele ase 03/04/2021 Provider: Diagnosis: Last Documented On 8:34AM By Deborah Lowery ; [facility], [facility] Esomeprazole Magnesium 40 MG Oral Capsule Delayed Rele ase 03/04/2021 Provider: Diagnosis: Last Documented On 1 8:34AM By Deborah Lowery ; [facility], [facility] Fluticasone Propionate 50 MCG/ACT Nasal Suspension Provider: Diagnosis: Last Documented On 8:35AM By Deborah Lowery ; [facility] Past Medications on file Clindamycin HCl 300 MG Oral Capsule 01/07/2025 - 01/09/2025 Provider: Holden Steiner Diagnosis: take 2 pills, 3 three times a day Last Documented On 5 11:06AM By Quentin Burk ; [facility] Clindamycin HCl 300 MG Oral Capsule 12/28/2024 - 01/08/2025 Provider: Holden Steiner Diagnosis: three times a day Last Documented On 5 10:10AM By Quentin Burk ; [facility] Percocet 5-325 MG Oral Tablet 12/19/2024 - 01/03/2025 Provider: Issa Rodriguez MD Diagnosis: 1 po q 4h prn pain Last Documented On 5 8:40AM By Issa Rodriguez ; [facility] Losartan Potassium 100 MG Oral Tablet 12/05/2024 - Provider: Diagnosis: Last Documented On 5 3:50PM By Marifer Nuñez ; [facility], [facility] DULoxetine HCl 60 MG Oral Ca psule Delayed Release Particles 12/05/2024 - 03/05/2025 Provider: Diagnosis: Last Documented On 5 3:49PM By Marifer Nuñez ; [facility], [facility] Montelukast Sodium 10 MG Oral Tablet 12/05/2024 - 02/15 Provider: Diagnosis: Last Documented On 5 3:49PM By Marifer Nuñez ; [facility] Losartan Potassium 100 MG Oral Tablet 03/03/2021 - Provider: Diagnosis: Last Documented On 5 3:50PM By Marifer Nuñez ; [facility], [facility] Montelukast Sodium 10 MG Oral Tablet 02/16/2021 - 11/16 Provider: Diagnosis: Last Documented On 5 3:49PM By Marifer Nuñez ; [facility], [facility] DULoxetine HCl 60 MG Oral Ca psule Delayed Release Particles 02/16/2021 - 12/05/2024 Provider: Diagnosis: Last Documented On 5 3:49PM By Marifer Nuñez ; [facility], [facility] Percocet 5-325 MG OR TABS 10/05/2019 - 03/12/2021 Prov ider: Issa Rodriguez MD Diagnosis: prn pain Last Documented On 1 8:36AM By Deborah Lowery ; [facility] Dilaudid 2 MG Oral Tablet 05/02/2019 - 03/12/2021 Provider: Domingo tan MD Diagnosis: 1-2 po q6h prn pain (RESCUE PAIN) DO NOT FILL TILL 05/04/2019 FOR SURGERY Last Documented On 1 8:36AM By Deborah Lowery ; [facility], [facility] Neurontin 300 MG Oral Capsule 05/02/2019 - 03/12/2021 Provider: Domingo tan MD Diagnosis: 1 every bedtime DO NOT SELVIN L TILL 05/04/2019 FOR SURGERY Last Documented On 1 8:36AM By Deborah Lowery ; [facility] traMADol HCl 50 MG Oral Tablet 05/02/2019 - 03/12/2021 Provider: Domingo tan MD Diagnosis: 1-2 po q6h prn pain DO NOT FILL TILL 05/04/2019 FOR SURGERY Last Documented On 1 8:35AM By Deborah Lowery ; [facility] oxyCODONE HCl 5 MG Oral Tablet 05/02/2019 - 03/12/2021 Provider: Domingo tan MD Diagnosis: 1-2 po q6h prn pain DO NOT FILL TILL 05/04/2019 FOR SURGERY Last Documented On 1 8:36AM By Deborah Lowery ; [facility] Zofran 4 MG Oral Tablet 05/02/2019 - 03/12/2021 Provid er: Domingo Billingsley MD Diagnosis: 6zlo3-9g DO NOT FILL TILL 05/04/2019 FOR SURGERY [...] Deborah Lowery ; [facility] Mobic 15 MG Oral Tablet 05/02/2019 - 03/12/2021 Provid er: Domingo Billingsley MD Diagnosis: once a day DO NOT FILL TIL L 05/04/2019 FOR SURGERY Last Documented On 1 8:36AM By Deborah Lowery ; [facility] Mupirocin 2% External Ointment 04/09/2019 - 03/12/2021 Provider: Domingo tan MD Diagnosis: Apply to nostrils 3 times a day 5 days prior to surgery. Last Documented On 1 8:35AM By Deborah Lowery ; [facility] Gabapentin 300MG Oral Capsule 04/05/2019 - 03/12/2021 Provider: Diagnosis: Last Documented On 1 8:35AM By Deborah Lowery ; [facility] HM Loratadine 10MG Oral Tablet 04/05/2019 - 03/12/2021 Provider: Diagnosis: Last Documented On 1 8:35AM By Deborah Lowery ; [facility] sulfaSALAzine 500MG Oral Tablet 03/24/2019 - Provider: Olga Licea AV[employer] ELECTRONIC WARFARE OPERATOR Diagnosis: Last Documented On 1 8:35AM By Deborah Lowery ; [facility] Losartan Potassium 100MG Ora l Tablet 03/05/2019 - 03/12/2021 Provider: Olga Lozano PRN Diagnosis: Last Documented On 8:35AM By Deborah Lowery ; [facility] Montelukast Sodium 10MG Oral Tablet 03/04/2019 - 03/12/2021 Provider: Olga Lozano PRN Diagnosis: Last Documented On 8:35AM By Deborah Lowery ; [facility] Tamsulosin HCl 0.4MG Oral Capsule 03/04/2019 - 03/12/2021 Provider: Olga Lozano PRN Diagnosis: Last Documented On 8:35AM By Deborah Lowery ; [facility] LORazepam 1MG Oral Tablet 02/22/2019 - 03/12/2021 Prov ider: Olga Licea AVIATION ELECTRONIC WARFARE OPERATOR Diagnosis: Last Documented On 8:35AM By Deborah Lwoery ; [facility] DULoxetine HCl 60MG Oral Capsule Delayed Release Particles 02/09/2019 - 03/12/2021 Provider: Olga Lozano PRN Diagnosis: Last Documented On 1 8:35AM By Deborah Lowery ; [facility] Finasteride 5MG Oral Tablet 01/21/2019 - 03/12/2021 Pr ovider: Olga Licea AV[employer] ELECTRONIC WARFARE OPERATOR Diagnosis: Last Documented On 1 8:35AM By Deborah Lowery ; [facility] traZODone HCl 150MG Oral Tablet 01/21/2019 - Provider: Olga Licea AV[employer] ELECTRON[employer] WARFARE OPERATOR Diagnosis: Last Documented On 8:35AM By Deborah Lowery ; [facility] Omeprazole 20MG Oral Tablet Delayed Release 12/07/2018 - 03/12/2021 Provider: ANDREA Abbott II, MD Diagnosis: Last Documented On 8:35AM By Deborah Lowery ; [facility] Medications Administered Includes: Administered Medications in patient's chart No Administered Medications Recorded Vital Signs Includes: Vital Signs from 07/09/2024 through 07/09/2025 Vital Name 06/06/2025 09:02A 01/14/2025 10:36A 01/07/2025 11:15A 01/07/2025 10:50A 12/28/2024 09:51A Height (in) 69 69 69 69 Weight (lb) 252 250 250 250 Body Mass Index 37.2 36.9 36.9 36.9 Body Surface Area 2.3 2.3 2.3 2.3 Pain Level 5 3 2 Temp-Oral (F) 97.5 Last Documented: On 06/06/2025 9:02AM ; [facility] On 01/14/2025 10:36AM ; [facility] On 01/07/2025 11:15AM ; [facility] On 01/07/2025 10:50AM ; [facility] On 12/28/2024 9:51AM ; [facility] Vital Name 12/05/2024 02:27P 11/29/2024 03: 21P Height (in) 69 68 Weight (lb) 250 250 Body Mass Index 36.9 38 Body Surface Area 2.3 2.2 Pain Level 8 Note: MCG Last Documented: On 12/05/2024 3:51PM ; [facility] On 11/29/2024 3:22PM ; [facility] Results Includes: Results from 07/09/2024 through 07/09/2025 No Results Recorded For Specified Dates Social History Description Last Updated Tobacco non-user 04/22/2022 Last Documented On 2 10:50AM ; [facility] No recent change in diet 04/22/2022 Last Documented On 2 10:50AM ; [facility] Not a current smoker. 04/22/2022 Last Documented On 2 10:50AM ; [facility] Non-smoker 03/12/2021 Last Documented On 1 8:44AM ; [facility] No tobacco use 04/05/2019 Last Documented On 9 10:53AM ; [facility] Smoking status : Never smoker 04/05/2019 Last Documented On 9 10:53AM ; [facility] Caffeine use 04/05/2019 Last Documented On 9 10:53AM ; [facility] No recent change in diet 04/05/2019 Last Documented On 9 10:53AM ; [facility] Not a current smoker 04/05/2019 Last Documented On 9 10:53AM ; [facility] Not exercising regularly 04/05/2019 Last Documented On 9 10:53AM ; [facility] Not using alcohol 04/05/2019 Last Documented On 9 10:53AM ; [facility] Not using drugs 04/05/2019 Last Documented On 9 10:53AM ; [facility] Sex - Male 07/05/2025 Last Documented On 5 2:08PM ; [facility] Procedures and Surgical History Includes: Procedures from 07/09/2024 through 07/09/2025 Procedures Code Diagnosis Performing Provider Service Location Service Date X-RAY EXAM OF TRUNK SPINE 62225 Encntr for adjust and mgmt of implanted nervous sys device, Presence of neurostimulator Issa Rodriguez MD [facility] 06/06/2025 Last Documented On 5 2:21PM ; [facility] Insertion or replacement of spinal neurostimulator pulse gen (Distinct procedure) 09717 Chronic pain syndrome Issa Rodriguez MD [facility] 12/19/2024 Last Documented On 5 5:16PM ; [facility] Revision including replacement, when [place] [address] [facility] compl of implnt elec nstim of spinal cord lead, init Issa Rodriguez MD [facility] 12/19/2024 Last Documented On 5 5:16PM ; [facility] X-RAY EXAM OF FINGER(S) 2-3 VIEWS (Bilateral Procedure) 42492 Trigger finger, left middle finger, 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 [facility] 12/05/2024 Last Documented On 5 3:22PM ; [facility] Injection, betamethasone acetate 6mg per cc and betamethason J0702 Trigger finger, left middle finger, 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, r hand [facility] 12/05/2024 Last Documented On 5 3:22PM ; [facility] INJ TENDON SHEATH/LIGAMENT (LEFT HAND, THIRD DIGIT) 72132 Trigger finger, left middle finger [facility] 12/05/2024 Last Documented On 5 3:22PM ; [facility] DRAIN/INJECT, JOINT/BURSA (RIGHT) 43905 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, r hand [facility] 12/05/2024 Last Documented On 5 3:22PM ; [facility] X-RAY EXAM OF LOWER SPINE 2-3 VIEWS LIMITED 96719 Chronic pain syndrome Issa Rodriguez MD [facility] 11/29/2024 Last Documented On 5 11:33AM ; [facility] X-RAY EXAM OF THORACIC SPINE 2 VIEWS 38315 Chronic pain syndrome Issa Rodriguez MD [facility] 11/29/2024 Last Documented On 5 11:33AM ; [facility] Surgical History Last Updated History of hernia repair 04/05/2019 Last Documented On 9 10:53AM ; [facility] Medical History Includes: Medical History in patient's [...] and resolved Allergies No Known Allergies Care Vocational Education Teacher Name (Identifier) Role/Relation Location/Telecom Last Documented By Domingo Billingsley MD ([id number]) Assigned practitioner (occupation) tel:[phone] Last Documented On 07/05/2025 2:08PM ; [facility] Olga Licea AVIATION ELECTRONIC WARFARE OPERATOR ([id number]) [address] [place] [address], [id number] tel: Last Documented On 04/05/2019 9:06AM ; [facility] Encounters Includes: Encounters from 07/09/2024 through 07/09/2025 Encounter Provider Location (Healthcare Service Location) Date Check-In Time Check-Out Time Diagnosis Encounter Disposition [Patient Encounter] Issa Rodriguez MD 202406/06/2025 8:31AM 06/06/2025 11:59PM Follow Up Issa Rodriguez MD [facility] 2024 8:53AM 10:11AM Overweight Post Op Holden Modi PA-C [facility] 2024 10:30AM 10:40AM Overweight Post Op Holden Modi PA-C [facility] 2024 10:33AM 11:15AM Overweight Post Op Holden Modi PA-C [facility] 2024 9:29AM 10:09AM Overweight [Patient Encounter] Issa Rodriguez MD 202412/05/2024 8:36AM 12/05/2024 11:59PM [facility] Issa Rodriguez MD Surgery 202412/23/2024 5:01PM 12/05/2024 11:59PM IN HOUSE REFERRAL Flako Pulido PA-C [facility] 2024 2:26PM 3:21PM Overweight Follow Up Issa Rodriguez MD [facility] 2024 3:04PM 3:32PM Payer Includes: Active Insurance Policies Plan Name (Payer ID) Coverage Type Member ID Group # Subscriber (ID) Relationship Effective Dates 1 - Medicare Part B [facility] ([id number]) [id number] Stephane Mendieta Self (Checked on 06/03/2025) Last Documented On 9 7:57AM ; [facility] 2 - [employer] Medicare Supplemen t Insurance [id number] Stephane Mendieta Self 09/15/2017 - Unknown Last Documented On 9 8:40AM ; [facility] Clinical Notes Includes: Signed Clinical Notes starting from 07/01/2022 * Progress note Date Encounter Last Documented by 06/06/2025 Follow Up Last documented on 06/11/2025; 1:20 PM, Issa Rodriguez MD; [facility] Active Problems & Conditions - History of [...] Care Team - Olga Licea APRN - HELP DESK SPECIALIST Health Reminders - Assess BMI satisfied 06/06/2025. - Assess Tobacco Use satisfied 04/05/2019. - Follow Up Plan BMI Management satisfied 06/06/2025. * Progress note Date Encounter Last Documented by 01/14/2025 Post Op Last documented on 01/14/2025; 10:41 AM, Holden Modi PA-C; [facility] Active Problems & Conditions - History of [...] Care Team - Olga Licea APRN - HELP DESK SPECIALIST * Progress note Date Encounter Last Documented by 01/07/2025 Post Op Last documented on 01/28/2025; 11:48 AM, Holden Modi PA-C; [facility] Active Problems & Conditions - History of [...] Care Team - Olga Licea APRN - HELP DESK SPECIALIST * Progress note Date Encounter Last Documented by 12/28/2024 Post Op Last documented on 12/28/2024; 12:21 PM, Holden Modi PA-C; [facility] Active Problems & Conditions - History of [...] year. Patient was seen by myself Holden Mdoi PA-C. Patient will follow up in his [...] Care Team - Olga Licea APRN - HELP DESK SPECIALIST * Progress note Date Encounter Last Documented by 12/05/2024 IN HOUSE REFERRAL Last documente d on 12/05/2024; 4:17 PM, Flako Pulido PA-C; [facility] Active Problems & Conditions - History of [...] Care Team - Olga Licea APRN - HELP DESK SPECIALIST * Progress note Date Encounter Last Documented by 11/29/2024 Follow Up Last documented on 12/17/2024; 10:39 AM, Issa Rodriguez MD; [facility] Active Problems & Conditions - History of [...] 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 He is neurovascularly intact. He is [...] Care Team - Olga Licea APRN - HELP DESK SPECIALIST Health Reminders - Assess BMI satisfied 11/29/2024. - Assess Tobacco Use satisfied 04/05/2019. - Follow Up Plan BMI Management satisfied 11/29/2024.
--- OUTSIDE RECORDS SUMMARY | 2025-07-09 10:31 | XMS_ITS | Data Portability ---
Author Organization [facility] BROOKS GutierrezS COMMERCE CLOSED Address [address] [facility] [address] [place] [address] Care Team Providers Care Property Loss Insurance Claim Adjuster Name Role Phone HERIBERTO PATEL Orthopedic Surgeon [phone] SHARMIN WHITAKER Primary Care Provider [phone] Assessment No assessment recorded. Plan of Treatment Reminders Order Date Submit Date Provider Last Modified By Organization Details Last Modified Time Details Appointments DERM ESTABLISH ED 2025 10:30A Nancy GONZALEZ MD Not available Not available Not available Lab surgical pathology study - Excision: Biopsy proven BCC check for clear margins 2024 05 025 [facility], [address] [place] [address], [phone], 11/22/2024 12:08:26 Referral None recorded. Procedures None recorded. Surgeries None recorded. Imaging None recorded. Medication Orders None recorded. Patient TargetsNo targets recorded. Patient InstructionsNo instructions recorded. Reason for Referral None Reported. Results Created Date Observation Date Name Description Value Unit Range Abnormal Flag Note LastModifiedBy Organization Detail LastModifiedTime 10/30/1910/29/2024 SURGI MIRELLA surgical SEE BELOW abnormal [place] topat holog y Repor t NAME: ISATU [...] Out Date: 10/31 10:38 1 Not Available [facility] [address], [place], [address], 10/31/2024 10:39:11 11/21/19 25 11/20/2024 SURGI MIRELLA surgical SEE BELOW abnormal [place] topat holog y Repor t NAME: LANCE [...] BX PROVE N: BCC. CHECK FOR CLEAR ED NS. B: BX PROVE N: BCC. CHECK [...] Out Date: 11/22 12:08 1 Not Available [facility] [address] [place] [address], [phone], 11/22/2024 12:08:26 Result Notes None recorded. Problems No Known Problems Procedures Surgical History Date Name Laterality Status Provider Name and Address Organization Details Recorded Time 12/12/19 25 Suture/Staple removal completed Henny Wheatland [facility] 12/11/2024 07:41:19 11/21/19 25 DAK - Lesion Excision, [place]; trunk,arms,legs completed NUVIA SIDDIQUI JR, MD [address] [place] [address], [phone], [facility] 11/20/2024 14:00:58 10/30/19 25 DAK - Biopsy, Tangential completed Janna Zhou [facility] 10/29/2024 10:31:00 12/26/19 24 Biopsy Skin Lesion; Tangential completed Kelsey RAMEY - [facility] 12/26/2023 11:19:57 12/26/19 24 Destruction Premalignant Lesion(s) completed Kelsey RAMEY - [facility] 12/26/2023 11:19:17 06/23/20 23 Biopsy Skin Lesion; Tangential completed Kelsey RAMEY - [facility] 06/23/2023 11:49:07 06/23/20 23 Destruction Premalignant Lesion(s) completed Kelseytiny RAMEY - [facility] 06/23/2023 11:45:10 03/24/20 18 Stress Test - Echo Dobutamine completed GILDA LAGUNAS MD [address] [place], [address], [facility] 03/24/2018 12:52:45 03/24/20 18 Echocardiogram - Dobutamine Stress Test completed GILDA LAGUNAS MD [address] [place], [id number] [place] [address] 03/24/2018 12:42:39 Hernia Repair completed Jazmin Short [facility] 02/14/2018 10:09:44 Other completed Jazmin Short [place] [facility] 02/14/2018 10:10:04 Other completed Jazmin Short [place] - [facility] 02/14/2018 10:10:14 Other completed Jazmin Short [place] [facility] 02/14/2018 10:10:30 Other completed Jazmin Short [place] [facility] 02/14/2018 10:10:35 Other completed Jazmin Short [place] [facility] 03/03/2018 10:09:36 Imaging Results None recorded. Procedure [...] Updated DateTime 11/20/2024 131/87 mm[Hg] Henny [facility] 11/20/2024 11:58:18 Social History Question Answer Notes LastModified by Organizat ion Details LastModified Time Tobacco Smoking Status [facility] 02/14/2018 10:08:49 When Did You Quit Smoking? 16+yearssince lastcigarette [email or web address] Information not available 03/03/2018 Live Alone Or With Others? With Others [email or web address] Information not available 03/03/2018 Marital Status Informatio n not available 03/03/2018 What Was The Date Of Your Most Recent Tobacco Screening? 03/03/2018 Information n ot available 09/04/2019 Sex: Male Functional Status Question Answer Note LastModified by Organizat ion Details LastModified Time What is your level of alcohol consumption? None [email or web address] Information not available 02/14/2018 What is your occupation? [employer] [email or web address] Information not available 03/03/2018 Mental Status None recorded. Family History Relationship Description Onset Age of this Age Resolved Age Notes LastModified by Organization Details LastModified Time Unspecified Relation Family history of malignant neoplasm [email or web address] Not available 2017 10:08:14 Unspecified Relation Hypertensive disorder [email or web address] Not available 2017 10:08:34 Unspecified Relation Arthritis [email or web address] Not available 2017 10:08:43 Medical History Condition Response Arthritis Y Basal Cell Carcinoma Y Past Encounters Encounter ID Performer Location Encounter Start Date Encounter Closed Date Diagnosis/Indication Diagnosis SNOMED-CT Code Diagnosis ICD10 Code Diagnosis IMO Codes Diagnosis Note [id number] DEE FERNÁNDEZ MD CARDIOLOG Y [facility] CLOSED [address] [place] [address] 03/03/2018 09:58:12 03/03/2018 11:04:15 Atherosclerosis of arteries of the extremities 91677621 I70.209 The patient has normal lower extremity pulses and essentiall y normal CORY. With findings of vascular calcificat ion recommend considerat ion for addition of statins and low-dose aspirin to his regimen. No further testing of his lower extremitie s is indicated at this time. Preoperati ve cardiovascular examination 745238752 Z01.810 The patient requires knee replacemen t. He has no evidence of aortic stenosis, angina or CHF and therefore I would anticipate a low cardiovasc ular risk. In light of the presence of atheroscle rosis, I suggest a preoperati ve dobutamine stress echocardio gram. Results will be forwarded to his orthopedic surgeon once available. [id number] GILDA LAGUNAS MD [facility] CLOSED [address] [facility] [place] [address] 03/24/2018 08:18:43 03/31/2018 15:16:10 Coronary arteriosclerosis in [place] artery [id number] 107 I25.10 [id number] GILDA LAGUNAS MD [facility] [address] [facility] [address] [place] [address] 03/24/2018 08:19:09 03/24/2018 13:23:26 Coronary arteriosclerosis 24993542 I25.10 [id number] GIAN Espino, HOT BLAST WORKER DAK [facility] [address] [place] [address] 06/23/2023 10:45:12 06/23/2023 11:56:59 History of malignant neoplasm of skin 834040529 Z85.828 Last skin cancer - 07/2022 - No evidence of recurrence today- Call with any worrisome lesions or if treated lesions return- Return at regular intervals for skin exam as recommende d Multiple b enign melanocytic nevi 199738731 D22.5 - Benign moles seen on exam [...] changing or worrisome lesions Seborrheic keratosis 394 637214 L82.1 - Benign overgrowth s of skin - Hereditary Senile angioma 2151430 I 78.1 - Benign blood vessel growths - Hereditary Solar lentigo 35525935 L 81.4 - Benign brown spots - Sun-induce d Actinic keratosis 778694 007 L57.0 Actinic keratoses are precancero us lesions that may progress to squamous cell carcinoma if untreated. UV light and genetics may increase risk. Treated lesions should blister, scab over, and heal within a few weeks. If treated lesion(s) does not resolve within 1-2 months, patient agrees to follow up for re-evaluat ion. Neoplasm o f uncertain behavior of skin 17286066 D48.5 Recommend blade biopsy. Risks, benefit, and procedure discussed with patient. Consent obtained. [id number] RINKU KELLY MD [address] [address] 08/16/2023 08:26:04 08/19/2023 14:47:05 [id number] GIAN Espino APRN [address] [address] 12/26/2023 10:46:06 12/26/2023 11:27:25 History of malignant neoplasm of skin 074682192 Z85.828 last skin cancer - 06/2023 - No evidence of recurrence today- Call with any worrisome lesions or if treated lesions return- Return at regular intervals for skin exam as recommende d Multiple b enign melanocytic nevi 922697922 D22.5 - Benign moles seen on exam [...] changing or worrisome lesions Seborrheic keratosis 394 295680 L82.1 - Benign overgrowth s of skin - Hereditary Senile angioma 4672433 I 78.1 - Benign blood vessel growths - Hereditary Solar lentigo 56432199 L 81.4 - Benign brown spots - Sun-induce d Neoplasm o f uncertain behavior of skin 82085539 D48.5 Recommend blade biopsy. Risks, benefit, and [...] agrees to follow up for re-evaluat ion. [id number] RINKU KELLY MD [address] [place] [address] 02/14/2024 08:21:31 02/16/2024 14:44:35 [id number] RINKU KELLY MD [address] [place] [address] 03/14/2024 09:34:47 03/22/2024 04:26:11 Postoperative visit 567711542 Z09 Scar 260149038 L90.5 History of malignant basal cell neoplasm of skin 029458711 Z85.828 No evidence of recurrence . Discussed risk of recurrence and new skin cancers, so regular self exam and profession al skin checks are recommende d. Sun protection with broad spectrum SPF 30 sunscreen and broad-brim med hat is recommende d. Sun protection with SPF 30 broad spectrum sunscreen and protective gear discussed. [id number] GIAN Espino APRN [address] [place] [address] 10/29/2024 09:42:30 10/29/2024 10:46:53 History of malignant neoplasm of skin 696519172 Z85.828 Most recent skin cancer 12/2023 - No evidence of recurrence today- Call with any worrisome lesions or if treated lesions return- Return at regular intervals for skin exam as recommende d Multiple b enign melanocytic nevi 682785236 D22.5 - Benign moles seen on exam [...] changing or worrisome lesions Seborrheic keratosis 394 774434 L82.1 - Benign overgrowth s of skin - Hereditary Senile angioma 4281005 I 78.1 - Benign blood vessel growths - Hereditary Solar lentigo 77905594 L 81.4 - Benign brown spots - Sun-induce d Neoplasm o f uncertain behavior of skin 30697100 D48.5 Recommend blade biopsy. Risks, benefit, and procedure discussed with patient. Consent obtained. Discussed the biopsy only takes the top layer of the lesion for testing. This does NOT treat the skin cancer if it is one. Advised they would need to return for more treatment given the type and depth of the skin cancer when the results come in. [id number] MD DANNY HINKLE JR [place] [address] [facility] [place] [address] 11/13/2024 09:51:03 11/13/2024 12:10:30 [id number] MD DANNY HINKLE JR [place] [address] [facility] [place] [address] 11/20/2024 11:19:12 11/20/2024 13:33:38 Basal cell carcinoma of upper extremity 837730832 C44.612 [id number] MD DANNY HINKLE JR [place] [address] [place] [address] 11/27/2024 10:53:15 11/27/2024 14:06:05 [id number] NUVIA SIDDIQUI JR, MD [place] [address] [place] [address] 12/04/2024 09:54:33 12/04/2024 11:37:08 [id number] NUVIA SIDDIQUI JR, MD [place] [address] [place] [address] 12/11/2024 09:21:24 12/11/2024 09:46:54 Scar 665248720 L90.5 Wound in appropriat e stages of [...] (MEDICARE SUPPLEMENT) PLAN G Isatu Marta Anam [id number] Isatu Marta Anam 04/26/2025 1 [place] (MED[place] Isatu Marta Anam [id number] Isatu Mendieta 08/05/2023 2 [employer] Isatu Mendieta [id number] Isatu Mendieta 08/05/2023 1 [place] [id number] Isatu Mendieta [id number] Isatu Mendieta Notes Date Note Type Note Provider Name and Address Organization Details Recorded Time 11/13/2024 text/html ROS as noted in the [facility] Patient presents today for an excision to right posterior base of neck for treatment of BCC. Procedure changed to Mohs procedure. Not Available [employer] 11/19/2024 08:16:02 11/20/2024 text/html ROS as noted in the [facility] Patient presents today for an excision to Right Dorsal Forearm and Right Radial Forearm for treatment of biopsy proven BCC. NUVIA SIDDIQUI JR, MD [address] [place] [address], [phone], [facility] 11/20/2024 14:03:55 12/11/2024 text/html ROS as noted in the HPI Patient present today for fourteen day staple removal following Excision procedure on 11/27/2024 toLeft Midline Temporal Scalp for treatment of BCC. NUVIA SIDDIQUI JR, MD [address] [place] [address], [phone], [facility] 12/11/2024 10:11:03
--- OUTSIDE RECORDS SUMMARY | 2025-07-09 10:31 | XMS_ITS | Encounter Summary ---
Author Organization [employer] ([place], [place], [place], [place], [place]) Address [address] [place] [address] Care Team Providers Care Electrical Technology Instructor Name Role Phone Maya Torres Reji BELCHER Primary Care Provider [phone] Encounter Details Date Type Department Care Team (Late st Contact Info) Description 10/18/2020 Transcribed Document [facility] Family Medicine [facility] [place] [address] ProviderJean MD [address] [place] [address] Social History Tobacco Use Types Packs/Day Years [...] 10/18/2020 21:39 EDT Electronically signed by Ileana [facility] Conversion Reporting Consultant Cerner at 11/04/2022 3:31 PM CDT documented in this encounter Plan of Treatment Not on file documented as of this encounter Visit Diagnoses Not on filedocumented in this encounter Care Teams Electrical Technology Instructor Relationship Specialty Start Date End Date Maya Torres, SURFACE LOGGING SYSTEMS LOGGER [address] [address] PCP - General Family Medicine 08/27/22 documented as of this encounter
--- OUTSIDE RECORDS SUMMARY | 2025-07-09 10:31 | XMS_ITS | Clinical Summary ---
Author Organization [facility] , [facility] Address [address] [place] [address] Phone Care Team Providers Care Quality Controller Name Role Phone Jose Cruz COLEMAN, Domingo Jett Unavailable [phone] Olga Licea APRN Unavailable [phone] Reason for Visit and Chief Complaint The Chief Complaint is: back pain Problems Includes: Problems addressed during this encounter and other active Problems All Visits Onset Date Date of Diagnosis Resolved Date Provider Condition Status Soft Tissue Pain Hand 12/05/2024 12/05/2024 Flako Pulido PA-C Active Last Documented On 5 1:43AM ; [facility], [facility] History of Lower Back Pain M idline Right Side 04/12/2022 04/12/2022 Holden Modi PA-C Active Last Documented On 5 1:41AM ; [facility], [facility] Joint Pain Left Thumb 03/12/2021 03/12/2021 Charles Hernandez MD Active Last Documented On 5 1:40AM ; [facility], [facility] Joint Pain in Both Knees 04/05/2019 04/05/2019 Arlet Billingsley MD Active Last Documented On 5 1:39AM ; [facility], [facility] Plan of Treatment Patient screened for future fall risk: documentation of any fall with injury in past year. - Last Documented On 12/28/2024 12:21PM ; [facility], [facility] Patient was seen by myself Holden [...] - Last Documented On 12/28/2024 12:21PM ; [facility], [facility] Pending Tests Order Diagnosis Results Due Ordering P xena Radiology - MRI MRI Lumbar Spine 04/26/22 Chas Modi PA-C Last Documented On 2 1:06PM ; [facility], [facility] Future Appointments Date Time Location Provi tahira Post Op 07/19/2025 11:00AM [facility] Holden Modi PA-C Last Documented On 5 10:29AM ; [facility] Instructions to patient Lose weight Last Documented On 5 9:50AM ; [facility] Assessments Includes: Assessments from this encounter Findings - Overweight - Last Documented On 12/28/2024 12:21PM ; [facility] Spinal cord stimulator placement with paddles system December 19, 2024 - Last Documented On 12/28/2024 12:21PM ; [facility] Instructions Includes: Instructions from this encounter Instructions to patient Lose weight Last Documented On 5 9:50AM ; [facility] Medical Equipment - Implanted Devices Includes: Current Devices No Medical Equipment Recorded Medications Includes: Medications discussed during this encounter and other current Medications New / Renewed during this visit Holden Modi PA-C on 12/28/2024 Clindamycin HCl 300 MG Oral Capsule Provider: Holden Modi PA-C 11 day supply: 33 capsule, 0 refills Diagnosis: three times a day Pharmacy: [facility] [phone] , [facility], [id number] - Last Documented On 5 10:10AM By Quentin Burk ; [facility], [facility] Current Medications (continue as prescribed) Percocet 5-325 MG Oral Tablet 07/03/2025 - 07/18/2025 Provider: Issa Rodriguez MD Diagnosis: 1 po q 4h prn pain Last Documented On 5 8:39AM By Issa Rodriguez ; [facility], [facility] Clindamycin HCl 300 MG Oral Capsule 01/07/2025 Provi tahira: Holden Modi PA-C Diagnosis: Last Documented On 5 10:36AM By Quentin Burk ; [facility], [facility] oxyCODONE-Acetaminophen 5-325 MG Oral Tablet Provider: Issa Rodriguez MD Diagnosis: Last Documented On 5 9:50AM By Quentin Burk ; [facility], [facility] Pantoprazole Sodium 40 MG Or al Tablet Delayed Release 12/09/2024 Provider: Maya Torres TOP CAGER Diagnosis: Last Documented On 5 9:50AM By Quentin Burk ; [facility], [facility] LORazepam 1 MG Oral Tablet 12/04/2024 Provider: Nancy Torres TOP CAGER Diagnosis: Last Documented On 5 9:50AM By Quentin Burk ; [facility], [facility] Doxycycline Hyclate 100 MG Oral Capsule 12/04/2024 P rovider: Diagnosis: Last Documented On 5 9:50AM By Quentin Burk ; [facility], [facility] sulfaSALAzine 500 MG Oral Tablet 11/27/2024 Provider : Maya Torres TOP CAGER Diagnosis: Last Documented On 5 9:50AM By Quentin Burk ; [facility], [facility] Albuterol Sulfate HFA 108 (9 0 Base) MCG/ACT Inhalation Aerosol Solution 11/07/2024 Provider: Maya anderson TOP CAGER Diagnosis: Last Documented On 5 9:50AM By Quentin Burk ; [facility], [facility] Finasteride 5 MG Oral Tablet 11/03/2024 Provider: Maya Torres TOP CAGER Diagnosis: Last Documented On 5 9:50AM By Quentin Burk ; [facility], [facility] Tamsulosin HCl 0.4 MG Oral Capsule 11/03/2024 Provid er: Maya Torres TOP CAGER Diagnosis: Last Documented On 5 3:49PM By Marifer Nuñez ; [facility], [facility] Amoxicillin 875 MG Oral Tablet 09/11/2024 Provider: Diagnosis: Last Documented On 9:50AM By Quentin Burk ; [facility], [facility] predniSONE 10 MG Oral Tablet 03/11/2021 Provider: Jarek Muñiz DO Diagnosis: Last Documented On 8:34AM By Deborah Lowery ; [facility], [facility] Amoxicillin 500 MG Oral Capsule 03/11/2021 Provider: Jarek Muñiz DO Diagnosis: Last Documented On 8:34AM By Deborah Lowery ; [facility], [facility] Cephalexin 500 MG Oral Capsule 03/10/2021 Provider: Diagnosis: Last Documented On 8:34AM By Deborah Lowery ; [facility], [facility] HYDROcodone-Acetaminophen 5-325 MG Oral Tablet Provider: Diagnosis: Last Documented On 8:34AM By Deborah Lowery ; [facility], [facility] Gabapentin 300 MG Oral Capsule 03/06/2021 Provider: Diagnosis: Last Documented On 8:34AM By Deborah Lowery ; [facility], [facility] LORazepam 1 MG Oral Tablet 03/06/2021 Provider: Diagnosis: Last Documented On 8:34AM By Deborah Lowery ; [facility], [facility] Esomeprazole Magnesium 40 MG Oral Capsule Delayed Rele ase 03/04/2021 Provider: Diagnosis: Last Documented On 8:34AM By Deborah Lowery ; [facility], [facility] Esomeprazole Magnesium 40 MG Oral Capsule Delayed Rele ase 03/04/2021 Provider: Diagnosis: Last Documented On 8:34AM By Deborah Lowery ; [facility], [facility] Fluticasone Propionate 50 MCG/ACT Nasal Suspension Provider: Diagnosis: Last Documented On 8:35AM By Deborah Lowery ; [facility], [facility] Past Medications on file Clindamycin HCl 300 MG Oral Capsule 01/07/2025 - 01/09/2025 Provider: Holden Stiener Diagnosis: take 2 pills, 3 three times a day Last Documented On 5 11:06AM By Quentin Burk ; [facility], [facility] Percocet 5-325 MG Oral Tablet 12/19/2024 - 01/03/2025 Provider: Issa Rodriguez MD Diagnosis: 1 po q 4h prn pain Last Documented On 8:40AM By Issa Rodriguez ; [facility] Losartan Potassium 100 MG Oral Tablet 12/05/2024 - Provider: Diagnosis: Last Documented On 3:50PM By Marifer Nuñez ; [facility] DULoxetine HCl 60 MG Oral Ca psule Delayed Release Particles 12/05/2024 - 03/05/2025 Provider: Diagnosis: Last Documented On 3:49PM By Marifer Nuñez ; [facility] Montelukast Sodium 10 MG Oral Tablet 12/05/2024 - 02/15 Provider: Diagnosis: Last Documented On 3:49PM By Marifer Nuñez ; [facility] Medications Administered Includes: Administered Medications from this encounter No Administered Medications Recorded Vital Signs Includes: Vital Signs from this encounter Vital Name 12/28/2024 09:51A Height (in) 69 Weight (lb) 250 Body Mass Index 36.9 Body Surface Area 2.3 Last Documented: On 12/28/2024 9:51AM ; [facility] Results Includes: Results discussed during this [...] Documented On 5 9:50AM ; [facility] No recent change in diet 04/22/2022 Last Documented On 5 9:50AM ; [facility] Not a current smoker. 04/22/2022 Last Documented On 5 9:50AM ; [facility] Non-smoker 03/12/2021 Last Documented On 5 9:50AM ; [facility] No tobacco use 04/05/2019 Last Documented On 5 9:50AM ; [facility] Smoking status : Never smoker 04/05/2019 Last Documented On 5 9:50AM ; [facility] Caffeine use 04/05/2019 Last Documented On 5 9:50AM ; [facility] No recent change in diet 04/05/2019 Last Documented On 5 9:50AM ; [facility] Not a current smoker 04/05/2019 Last Documented On 5 9:50AM ; [facility] Not exercising regularly 04/05/2019 Last Documented On 5 9:50AM ; [facility] Not using alcohol 04/05/2019 Last Documented On 5 9:50AM ; [facility] Not using drugs 04/05/2019 Last Documented On 5 9:50AM ; [facility] Sex - Male 07/05/2025 Last Documented On 5 2:08PM ; [facility] Procedures and Surgical History Surgical History Last Updated History of hernia repair 04/05/2019 Last Documented On 5 9:50AM ; [facility] Medical History Includes: Medical History addressed during this encounter Description Last Updated No recent immunization for flu Last Documented On 5 9:50AM ; [facility] No recent immunization for pneumococcal pneumonia 03/12/2021 Last Documented On 5 9:50AM ; [facility] cataracs 04/05/2019 Last Documented On 5 9:50AM ; [facility] Arthritic joint problems 04/05/2019 Last Documented On 5 9:50AM ; [facility] Intermittent hypertension 04/05/2019 Last Documented On 5 9:50AM ; [facility] Family History Includes: Family History addressed during this encounter Description Last Updated Family history of cancer 04/05/2019 Last Documented On 5 9:50AM ; [facility] Family history of hypertension 9 Last Documented On 5 9:50AM ; [facility] Review of Systems Includes: Review [...] Anxiety Last Documented On 5 9:50AM ; [facility] Physical Exam Includes: Physical Exam from this encounter Allergies Includes: Active Allergies No Known Allergies Care Quality Controller Name (Identifier) Role/Relation Location/Telecom Last Documented By Domingo Billingsley MD ([id number]) Assigned practitioner (occupation) tel: Last Documented On 07/05/2025 2:08PM ; [facility] Olga Licea APRN ([id number]) [address] [place] [address], [id number] tel: Last Documented On 04/05/2019 9:06AM ; [facility] Encounters Encounter Provider Location (Healthcare Service Location) Date Check-In Time Check-Out Time Diagnosis Encounter Disposition Post Op Holden Modi PA-C [facility] [place] 2024 9:29AM 10:09AM Overweight Payer Includes: Active Insurance Policies Plan Name (Payer ID) Coverage Type Member ID Group # Subscriber (ID) Relationship Effective Dates 1 - Medicare Part B [place] ([id number]) [id number] Stephane Mendieta Self (Checked on 06/03/2025) Last Documented On 9 7:57AM ; [facility], [facility] 2 - [employer] Medicare Supplemen t Insurance [id number] Stephane Mendieta Self 09/15/2017 - Unknown Last Documented On 9 8:40AM ; [facility] Clinical Notes Includes: Clinical Notes from this encounter * Progress note Date Encounter Last Documented by 12/28/2024 Post Op Last documented on 12/28/2024; 12:21 PM, Holden Modi PA-C; [facility] Active Problems & Conditions - History [...] Care Team - Olga Licea APRN - [facility]
--- OUTSIDE RECORDS SUMMARY | 2025-07-09 10:31 | XMS_ITS | Clinical Summary ---
Author Organization [facility] , [facility] Address [address] [place] [address] Phone Care Team Providers Care Senior Bi Architect Name Role Phone Jose Cruz COLEMAN, Domingo Jett Unavailable [phone] Olga Licea APRN Unavailable [phone] Reason for Visit and Chief Complaint The Chief Complaint is: back pain Problems Includes: Problems addressed during this encounter and other active Problems All Visits Onset Date Date of Diagnosis Resolved Date Provider Condition Status Soft Tissue Pain Hand 12/05/2024 12/05/2024 Flako Pulido PA-C Active Last Documented On 5 1:43AM ; [facility], [facility] History of Lower Back Pain M idline Right Side 04/12/2022 04/12/2022 Holden Modi PA-C Active Last Documented On 5 1:41AM ; [facility] Joint Pain Left Thumb 03/12/2021 03/12/2021 Charles Hernandez MD Active Last Documented On 5 1:40AM ; [facility] Joint Pain in Both Knees 04/05/2019 04/05/2019 Arlet Billingsley MD Active Last Documented On 5 1:39AM ; [facility], [facility] Plan of Treatment Patient screened for future fall risk: documentation of any fall with injury in past year. - Last Documented On 01/28/2025 11:48AM ; [facility], [facility] Patient was seen by myself Holden Modi PA-C. Patient will follow up 1 week we are going to keep him on clindamycin we will take the geronimo out of all the incisions today and recheck this in a week - Last Documented On 01/28/2025 11:48AM ; [facility] Pending Tests Order Diagnosis Results Due Ordering P xena Radiology - MRI MRI Lumbar Spine 04/26/22 Chas Modi PA-C Last Documented On 2 1:06PM ; [facility] Future Appointments Date Time Location Provi tahira Post Op 07/19/2025 11:00AM 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 - Last Documented On 01/28/2025 11:48AM ; [facility] Instructions Includes: Instructions from this encounter Instructions to patient Lose weight Last Documented On 5 10:49AM ; [facility] Medical Equipment - [...] pills, 3 three times a day Pharmacy: [facility] [phone] , [facility], [id number] - Last Documented On 5 11:06AM By Quentin Burk ; [facility] Current Medications (continue as prescribed) Percocet 5-325 MG Oral Tablet 07/03/2025 - 07/18/2025 Provider: Issa Rodriguez MD Diagnosis: 1 po q 4h prn pain Last Documented On 5 8:39AM By Issa Rodriguez ; [facility] Clindamycin HCl 300 MG Oral Capsule 01/07/2025 Provi tahira: Holden Modi PA-C Diagnosis: Last Documented On 5 10:36AM By Quentin Burk ; [facility] oxyCODONE-Acetaminophen 5-325 MG Oral Tablet Provider: Issa Rodriguez MD Diagnosis: Last Documented On 5 9:50AM By Quentin Burk ; [facility] Pantoprazole Sodium 40 MG Or al Tablet Delayed Release 12/09/2024 Provider: Maya Torres DIRECTORY CARRIER Diagnosis: Last Documented On 5 9:50AM By Quentin Burk ; [facility] LORazepam 1 MG Oral Tablet 12/04/2024 Provider: Nancy Torres DIRECTORY CARRIER Diagnosis: Last Documented On 5 9:50AM By Quentin Burk ; [facility] Doxycycline Hyclate 100 MG Oral Capsule 12/04/2024 P padminider: Diagnosis: Last Documented On 5 9:50AM By Quentin Burk ; [facility] sulfaSALAzine 500 MG Oral Tablet 11/27/2024 Provider : Maya Torres DIRECTORY CARRIER Diagnosis: Last Documented On 5 9:50AM By Quentin Burk ; [facility] Albuterol Sulfate HFA 108 (9 0 Base) MCG/ACT Inhalation Aerosol Solution 11/07/2024 Provider: Maya anderson DIRECTORY CARRIER Diagnosis: Last Documented On 5 9:50AM By Quentin Burk ; [facility] Finasteride 5 MG Oral Tablet 11/03/2024 Provider: Maya Torres DIRECTORY CARRIER Diagnosis: Last Documented On 5 9:50AM By Quentin Burk ; [facility] Tamsulosin HCl 0.4 MG Oral Capsule 11/03/2024 Provid er: Maya Torres DIRECTORY CARRIER Diagnosis: Last Documented On 5 3:49PM By Marifer Nuñez ; [facility] Amoxicillin 875 MG Oral Tablet 09/11/2024 Provider: Diagnosis: Last Documented On 5 9:50AM By Quentin Burk ; [facility] predniSONE 10 MG Oral Tablet 03/11/2021 Provider: Jarek Muñiz DO Diagnosis: Last Documented On 8:34AM By Deborah Lowery ; [facility], [facility] Amoxicillin 500 MG Oral Capsule 03/11/2021 Provider: Jarek Muñiz DO Diagnosis: Last Documented On 8:34AM By Deborah Lowery ; [facility] Cephalexin 500 MG Oral Capsule 03/10/2021 Provider: Diagnosis: Last Documented On 8:34AM By Deborah Lowery ; [facility], [facility] HYDROcodone-Acetaminophen 5-325 MG Oral Tablet 021 Provider: Diagnosis: Last Documented On 8:34AM By Deborah Lowery ; [facility] Gabapentin 300 MG Oral Capsule 03/06/2021 Provider: Diagnosis: Last Documented On 8:34AM By Deborah Lowery ; [facility], [facility] LORazepam 1 MG Oral Tablet 03/06/2021 Provider: Diagnosis: Last Documented On 8:34AM By Deborah Lowery ; [facility], [facility] Esomeprazole Magnesium 40 MG Oral Capsule Delayed Rele ase 03/04/2021 Provider: Diagnosis: Last Documented On 8:34AM By Deborah Lowery ; [facility] Esomeprazole Magnesium 40 MG Oral Capsule Delayed Rele ase 03/04/2021 Provider: Diagnosis: Last Documented On 8:34AM By Deborah Lowery ; [facility], [facility] Fluticasone Propionate 50 MCG/ACT Nasal Suspension Provider: Diagnosis: Last Documented On 8:35AM By Deborah Lowery ; [facility] Past Medications on file Clindamycin HCl 300 MG Oral Capsule 12/28/2024 - 01/08/2025 Provider: Holden Steiner Diagnosis: three times a day Last Documented On 5 10:10AM By Quentin Burk ; [facility] Percocet 5-325 MG Oral Tablet 12/19/2024 - 01/03/2025 Provider: Issa Rodriguez MD Diagnosis: 1 po q 4h prn pain Last Documented On 5 8:40AM By Issa Rodriguez ; [facility] Losartan Potassium 100 MG Oral Tablet 12/05/2024 - Provider: Diagnosis: Last Documented On 3:50PM By Marifer Nuñez ; [facility] DULoxetine HCl 60 MG Oral Ca psule Delayed Release Particles 12/05/2024 - 03/05/2025 Provider: Diagnosis: Last Documented On 3:49PM By Marifer Nuñez ; [facility] Montelukast Sodium 10 MG Oral Tablet 12/05/2024 - 02/15 Provider: Diagnosis: Last Documented On 3:49PM By Marifer Nuñez ; [facility], [facility] Medications Administered Includes: Administered Medications from this encounter No Administered Medications Recorded Vital Signs Includes: Vital Signs from this encounter Vital Name 01/07/2025 11:15A 01/07/2025 10: 50A Temp-Oral (F) 97.5 Height (in) 69 Weight (lb) 250 Body Mass Index 36.9 Body Surface Area 2.3 Pain Level 2 Last Documented: On 01/07/2025 11:15A M ; [facility] On 01/07/2025 10:50AM ; [facility] Results Includes: Results discussed during this encounter [...] Documented On 5 10:49AM ; [facility] No recent change in diet 04/22/2022 Last Documented On 5 10:49AM ; [facility] Not a current smoker. 04/22/2022 Last Documented On 5 10:49AM ; [facility] Non-smoker 03/12/2021 Last Documented On 5 10:49AM ; [facility] No tobacco use 04/05/2019 Last Documented On 5 10:49AM ; [facility] Smoking status : Never smoker 04/05/2019 Last Documented On 5 10:49AM ; [facility] Caffeine use 04/05/2019 Last Documented On 5 10:49AM ; [facility] No recent change in diet 04/05/2019 Last Documented On 5 10:49AM ; [facility] Not a current smoker 04/05/2019 Last Documented On 5 10:49AM ; [facility] Not exercising regularly 04/05/2019 Last Documented On 5 10:49AM ; [facility] Not using alcohol 04/05/2019 Last Documented On 5 10:49AM ; [facility] Not using drugs 04/05/2019 Last Documented On 5 10:49AM ; [facility] Sex - Male 07/05/2025 Last Documented On 5 2:08PM ; [facility] Procedures and Surgical History Surgical History Last Updated History of hernia repair 04/05/2019 Last Documented On 5 10:49AM ; [facility] Medical History Includes: Medical History addressed during this encounter Description Last Updated No recent immunization for flu Last Documented On 5 10:49AM ; [facility] No recent immunization for pneumococcal pneumonia 03/12/2021 Last Documented On 5 10:49AM ; [facility] cataracs 04/05/2019 Last Documented On 5 10:49AM ; [facility] Arthritic joint problems 04/05/2019 Last Documented On 5 10:49AM ; [facility] Intermittent hypertension 04/05/2019 Last Documented On 5 10:49AM ; [facility] Family History Includes: Family History addressed during this encounter Description Last Updated Family history of cancer 04/05/2019 Last Documented On 5 10:49AM ; [facility] Family history of hypertension 9 Last Documented On 10:49AM ; [facility] Review of Systems [...] Anxiety Last Documented On 5 10:49AM ; [facility] Physical Exam Includes: Physical Exam from this encounter Allergies Includes: Active Allergies No Known Allergies Care Senior Bi Architect Name (Identifier) Role/Relation Location/Telecom Last Documented By Domingo Billingsley MD ([id number]) Assigned practitioner (occupation) tel: Last Documented On 07/05/2025 2:08PM ; [facility] Olga Licea APRN ([id number]) [address] [place] [address], [address] tel: Last Documented On 04/05/2019 9:06AM ; [facility] Encounters Encounter Provider Location (Healthcare Service Location) Date Check-In Time Check-Out Time Diagnosis Encounter Disposition Post Op Holden Modi PA-C [facility] 2024 10:33AM 11:15AM Overweight Payer Includes: Active Insurance Policies Plan Name (Payer ID) Coverage Type Member ID Group # Subscriber (ID) Relationship Effective Dates 1 - Medicare Part B [facility] ([id number]) [id number] Stephane Mendieta Self (Checked on 06/03/2025) Last Documented On 9 7:57AM ; [facility], [facility] 2 - [employer] Medicare [facility] [id number] Stephane Mendieta Self 09/15/2017 - Unknown Last Documented On 9 8:40AM ; [facility], [facility] Clinical Notes Includes: Clinical Notes from this encounter * Progress note Date Encounter Last Documented by 01/07/2025 Post Op Last documented on 01/28/2025; 11:48 AM, Holden Modi PA-C; [facility] Active Problems & Conditions - History of [...] Care Team - Olga Licea APRN - CASINO MANAGER
--- OUTSIDE RECORDS SUMMARY | 2025-07-09 10:31 | XMS_ITS | Encounter Summary ---
Author Organization [employer] ([place], [place], [place], [place], [place]) Address [address] [place] [address] Care Team Providers Care Tobacco Curer Name Role Phone Maya Torres Reji BELCHER Primary Care Provider [phone] Encounter Details Date Type Department Care Team (Late st Contact Info) Description 10/18/2020 Transcribed Document [facility] Family [facility] [place] [address] ProviderJean MD [address] [place], [place] [id number] Social History Tobacco Use Types Packs/Day Years [...] On: 10/18/2020 19:09 EDT by SUSHMA MARQUEZ, AEROSPACE PROJECT MANAGER Triage Across the Room Chief Complaint : [...] : 3 - Urgent Tracking Group : [facility] ED SUSHMA MARQUEZ RN - [...] Problems(Active) At risk for sleep apnea (IMO :[id number] ) Name of Problem: At risk for sleep apnea ; Recorder: SYSTEM, SYSTEM; Confirmation: Confirmed ; Classification: Medical ; Code: [id number] ; Last Updated: 06/16/2018 8:18 EST ; Life Cycle Date: 06/16/2018 ; Life Cycle Status: Active ; Vocabulary: IMO Enlarged prostate (SNOMED CT :988818267 ) Name of Problem: Enlarged prostate ; Recorder: Shavonne Jimenez RN; Confirmation: Confirmed ; Classification: Medical ; Code: [id number] ; Contributor System: LinkytChart ; Last Updated: 06/16/2018 8:22 EST ; Life Cycle Date: 06/16/2018 ; Life Cycle Status: Active ; Vocabulary: SNOMED CT Hypertension (SNOMED CT :1358953793 ) Name of Problem: Hypertension ; Recorder: Shavonne Jimenez RN; Confirmation: Confirmed ; Classification: Medical ; Code: [id number] ; Contributor System: LinkytChart ; Last Updated: 06/16/2018 8:21 EST ; Life Cycle Date: 06/16/2018 ; Life Cycle Status: Active ; Vocabulary: SNOMED CT Seasonal allergies (SNOMED CT :1118471737 ) Name of Problem: Seasonal allergies ; Recorder: Shavonne Jimenez RN; Confirmation: Confirmed ; Classification: Medical ; Code: [id number] ; Contributor System: PowerChart ; Last Updated: 06/16/2018 8:22 EST ; Life Cycle Date: 06/16/2018 ; Life Cycle Status: Active ; Vocabulary: SNOMED CT Diagnoses(Active) Rib/trunk pain-swelling Date: 10/18/2020 ; Diagnosis Type: Reason For Visit ; Confirmation: Complaint of ; Clinical Dx: Rib/trunk pain-swelling ; Classification: Medical ; Clinical Service: Emergency medicine ; Code: PNED ; Probability: 0 ; Diagnosis Code: [id number] ED Height and Weight Height Source : Stated Height Entry Format : [place] Height, Feet : 5 ft(Converted to: 152 cm, 60 Inch) Height, Inches : 8 Inch(Converted to: 0 ft 8 Inch, 20.32 cm) Clinical Height : 172.72 cm Weight Source, ED : Critical estimated dosing weight Weight Entry Format : [place] Weight, Pounds : 240 lb Clinical Dosing Weight : 109.09 kg Body Surface Area (BSA) : 2.21 m2 Body Mass Index : 36.6 kg/m2 (HI) [place] Body Weight (IBW) : 67.45 kg SUSHMA MARQUEZ RN - 10/18/2020 19:09 EDT documented in this encounter Plan of Treatment Not on file documented as of this encounter Visit Diagnoses Not on filedocumented in this encounter Care Teams Tobacco Curer Relationship Specialty Start Date End Date Maya Torres, [employer] [address] [phone] PCP - General Family Medicine 08/27/22 documented as of this encounter
--- OUTSIDE RECORDS SUMMARY | 2025-07-09 10:31 | XMS_ITS | Encounter Summary ---
Author Organization [employer] ([place], [place], [place], [place], [place]) Address [address] [place] [address] Care Team Providers Care Professional Services Manager Name Role Phone Maya Torres Reji BELCHER Primary Care Provider [phone] Encounter Details Date Type Department Care Team (Late st Contact Info) Description 10/18/[address] [facility] Family Medicine [facility] [address] ProviderJean MD [address] [place] [address] Social History Tobacco Use Types [...] Sawant MD - 10/18/2020 9:38 PM CDT [facility] [place], [place] [id number] ISATU MENDIETA :1950 Visit Time:10/18/2020 Your Visit [...] to ED if symptoms worsen. Where: [address] [facility] [address] [place] [address] Business (1) Follow Up with JACKIE LEONARD When Within 2 to 3 days Allergies No Known Medication Allergies Immunizations This Visit No Immunizations Found Medications What How Much When Instructions Next Dose codeine-guaifenesin (codeine-guaifenesin 6.3 mg-100 mg/ 5 mL oral liquid) 7.5 Milliliter(s) Oral Every 6 Hours as needed for for cough Pickup at [facility] dextromethorphan-guaifenesin (dextromethorphan-guaifenesin 5 mg-100 mg/ [...] 24HR 55 mcg/ inh nasal spray) 1 Brilliant(s) Nasal Two Times A Day Pharmacy Information [facility]: [address] [place], [place] [id number] [phone] The home medications listed are only as [...] safe for you. General instructions ??? Take cnra-lje-ggfzmyv and prescription medicines only as told by [...] Reviewed: 01/04/2019 Vince Patient Education ?? 2020 [employer] Emergency Awareness and Preventative Care STROKE is [...] Assistance with quitting is available by contacting 3-881-HVHJ-NOW. This is a free resource providing counseling, [...] given the opportunity to ask questions. Patient/Executive Staff Assistant Name: Patient/Executive Staff Assistant Signature: Relationship to Patient: Clinician/Hospital Executive Staff Assistant Signature: Please Provide a Telephone Number Where You Can Be Reached: Is it Permissible To Leave a Message? Date: documented in this encounter Plan of Treatment Not on file documented as of this encounter Visit Diagnoses Not on filedocumented in this encounter Care Teams Professional Services Manager Relationship Specialty Start Date End Date Maya Torres, SIMI [address] [phone] PCP - General Family Medicine 08/27/22 documented as of this encounter
[2025-07-09] MEDS: DAPTOmycin 1,000 MG in 0.9 % SODIUM CHLORIDE 50 ML 100 MG IV (10:49)
[2025-07-09 10:50] VITALS: BP 174/85; PULSE 73; RESP 16; TEMP 36.9; O2SAT 96
[2025-07-09 11:22] VITALS: BP 161/82; PULSE 71; RESP 15; TEMP 36.7; O2SAT 96
[2025-07-09] MEDS: SODIUM CHLORIDE 0.9% 10ML FLUSH SYRINGE 10 ML IV (11:25)
== END 2025-07-09 11:30 | disposition home or self-care (01) ==
PROVIDERS: PCP Nurse Practitioner; Visit Provider Internal Medicine Infectious Disease
DX: T85.73 Infection and inflammatory reaction due to nervous system devices, implants and graft (principal)
CPT/HCPCS: 96365; J0878

== ENCOUNTER 2025-07-10 10:01 | Outpatient (CLI) | payer MEDICARE, OTHER, SELFPAY ==
--- OUTSIDE RECORDS SUMMARY | 2022-12-01 11:56 | XMS_ITS | Encounter Summary ---
[facility] [address] [place] [address] Care Team Providers Care Commissary Helper Name Role Phone Maya Torres Primary Care Provider + [phone] Encounter Details Date Type Department Care Team (Late st Contact Info) Description 12/01/2022 12:56 PM EDT Hospital Encounter [facility] PULMON[facility] & CRITICAL CARE MEDICINE [facility] [place] [address] Social History Tobacco Use Types Packs/Day Years Used Date Smoking Tobacco: Former Cigarettes Q uit: 2002 Smokeless Tobacco: Never Alcohol Use Standard Drinks/Week Comments Not Currently 0 (1 standard drink = 0.6 oz pur e alcohol) Abuse Screen Answer Date Recorded Unsafe at Home or Work/School Not on file Feels Threatened by Someone? Not on file Does Anyone Keep You from Co ntacting Others or Doint Things Outside the Home? Not on file 10/30/2023 Physical Sign of Abuse Present Not on file 0 10/30/2023 Housing Stability Answer Date Recorded Current Living Arrangements Not on file 10/16 Potentially Unsafe Housing Conditions Not on sy e 10/30/2023 Family and Community Support Answer Mick e Recorded Help with Day-to-Day Activities Not on file 04/28/2023 Lonely or Isolated Not on file 04/28/2023 Employment Answer Date Recorded Do you want help finding or keeping work or a birgit b? Not on file 04/28/2023 Disabilities Answer Date Recorded Concentrating, Remembering, or Making Decisions Difficulty Not on file 10/30/2023 Doing Errands Independently Difficulty Not on fi le 10/30/2023 Education Answer Date Recorded Help with school or training? Not on file Preferred Language Not on file 10/03/2023 Sex and Gender Information Value Date Recorded Sex Assigned at Not on file Legal Sex Male 10:48 AM EDT Gender Identity Not on file Sexual Orientation Not on file documented as of this encounter Plan of Treatment Not on file documented as of this encounter Procedures Procedure Name Priority Date/Time Associated Diagnosis Comments XR CHEST PA AND LATERAL Routine 12/01/2022 12:56 PM EDT Chronic cough documented in this encounter Results * XR Chest PA & Lateral (12/01/2022 12:56 PM EDT) Anatomical Region Laterality Modality Body, Chest N/A Radiographic Opal ging Narrative 12/01/2022 1:31 PM EDT Stephane Annton [id number] 12/01/2022 Chest X-Ray PA & Lateral Indication: Shortness of breath Findings: 2.2 cm right lower lobe nodular density. No effusions. Heart and mediastinum unremarkable. No pneumothorax. Interpretation: Is a 2.2 cm right lower lobe nodular density, likely some atelectatic changes, recommend CT of the chest for further evaluation. Cooper Caballero, DO Please note that portions of this note may have been completed with a voice recognition program. Efforts were made to edit the dictations, but occasionally words are mistranscribed. us Roman Caballero DO IMG DIAGNOSTIC IMAG ING ORDERABLES Final Result documented in this encounter Visit Diagnoses Not on filedocumented in this encounter Care Teams Commissary Helper Relationship Specialty Start Date End Date Maya Torres [address] [place] [address] PCP - General Nurse Practitioner 09/28/22 documented as of this encounter
--- OUTSIDE RECORDS SUMMARY | 2024-04-27 06:30 | XMS_ITS ---
Author Organization [facility] Address [address] [place] [address] Care Team Providers Care Director Of Direct Marketing Name Role Phone Jerome Morrissey II Unavailable [phone] Michael COLEMAN -Pramod Velazquez MD, Issa Unavailable [phone] Allergies No Known Allergies REASON FOR VISIT [...] Diagnosis [facility] [address] [place] [address] 04/27/2024 Jerome Morrissey Other fci (current) drug therapy Z79.899 ; Spondylosis without myelopathy or radiculopathy, cervical region M47.812 ; Postlaminectomy syndrome, not elsewhere classified M96.1 and Spondylosis without myelopathy or radiculopathy, lumbar region M47.816 Assessments Encounter Date Diagnosis (ICD Code) Assessment Notes Treatment Notes Treatment Clinical Notes Section Notes 04/27/2024 Other middle or intermediate school principal (current) drug therapy (ICD-10 - Z79.899) 04/02/2024 1. Discontinue [place] 5/325mg QD PRN 2. FU 1 month with [facility] 3. [facility] to change SCS settings 4. [...] no relief with TFESI LT in January. [facility] rep in the room changing SCS settings. [...] no relief with TFESI LT in January. [employer] rep in the room changing SCS settings. [...] no relief with TFESI LT in January. [employer] rep in the room changing SCS settings. [...] no relief with TFESI LT in January. [employer] rep in the room changing SCS settings. [...] Of Treatment Treatment Notes Assessment Notes Other fci (current) drug therapy 04/02/2024 1. Discontinue [place] 5/325mg QD PRN 2. FU 1 month with Yuni 3. [facility] rep to change SCS settings 4. S/P [...] Stephane YANEZ ADOB: 3 (74 yo M)Acc No.[id number]:04/27/2024 FollowUP Patient: Stephane RODRIGUEZ Provider: Reji Morrissey II, M.D. :1950 A ge:73 Y S ex:Male Date:04/27/2024 Address:[address] [place], [place] [id number] Subjective: * Chief Complaints: * 1 . [...] relief for 1 hour 0 08/09/2022SCS Trial [place] 80% relief for 1 week 0 02/13/2024#1 [...] * Vitals: * Examination: G eneral Examination: Nurse/Production Counter: Phill McnamaraMA-Shamar)Madeleine 04/02/2024 9:48:48 AM > . [...] no relief with TFESI LT in January. [facility] rep in the room changing SCS settings. [...] signature of Raymon Morrissey II, M.D. on 07/10/2025 at 09:04 AM SENIOR DATABASE PROGRAMMER Sign off status: Pending * Provider: Reji Morrissey II, M.D. Date: 1 Generated for Irwin spears/Davon/Eric on: 1 09/10/2024 09:04 AM SENIOR DATABASE PROGRAMMER History and Physical Notes * HPI (History [...] to advanced foraminal encroachment PHYSICAL/AQUA THERAPY/DME/OTHER HISTORY: 5421-4412 Chiropractic therapy program complete 06/2023-Present: Patient continues a prescribed home exercise program 3-5 times per week which includes walking, lumbar stretches, and alternating leg lifts PERTINENT SURGICAL EVALUATIONS/SPECIALIST CONSULTS 04/2022 - Dr. Rodriguez - No surgery recommened, recommends SCS trial PREVIOUS INJECTION\PROCEDURE HISTORY: 08/21/2019 #1 SIJI RT 20% relief for 1 hour 08/09/2022 SCS Trial [place] 80% relief for 1 week 02/13/2024 #1 [...] wi th an antalgic gait, pitched forward Nurse/Production Counter: Mendez SHARMA-Shamar)Francisco J 04/02/2024 9:48:48 AM > [...]
--- OUTSIDE RECORDS SUMMARY | 2024-05-28 10:30 | XMS_ITS ---
Author Organization [facility] Address [address] [place] [address] Care Team Providers Care Clinical Applications Specialist Name Role Phone Jerome Morrissey II Unavailable [phone] Michael COLEMAN -Pramod Velazquez MD, Issa Unavailable [phone] Allergies No Known Allergies REASON FOR VISIT [...] Diagnosis [facility] [address] [address] 05/28/2024 Jerome Morrissey Other oil heaterman (current) drug therapy Z79.899 ; Spondylosis without myelopathy or radiculopathy, cervical region M47.812 ; Postlaminectomy syndrome, not elsewhere classified M96.1 and Spondylosis without myelopathy or radiculopathy, lumbar region M47.816 Assessments Encounter Date Diagnosis (ICD Code) Assessment Notes Treatment Notes Treatment Clinical Notes Section Notes 05/28/2024 Other custodial (current) drug therapy (ICD-10 - Z79.899) 04/02/2024 1. Discontinue [place] 5/325mg QD PRN 2. FU 1 month with [facility] 3. [employer] rep to change SCS settings 4. S/P [...] no relief with TFESI LT in January. [employer] rep in the room changing SCS settings. [...] no relief with TFESI LT in January. [employer] rep in the room changing SCS settings. [...] no relief with TFESI LT in January. [employer] in the room changing SCS settings. Patient [...] no relief with TFESI LT in January. [employer] rep in the room changing SCS settings. [...] Of Treatment Treatment Notes Assessment Notes Other oil heaterman (current) drug therapy 04/02/2024 1. Discontinue [place] 5/325mg QD PRN 2. FU 1 month with [facility] 3. [employer] rep to change SCS settings 4. S/P [...] Stephane MENDIETA ADOB: 3 (74 yo M)Acc No.[id number]:05/28/2024 Progress NOte Patient: Stephane RODRIGUEZ Provider: Reji Morrissey II, M.D. :1950 A ge:73 Y S ex:Male Date:05/28/2024 Address:[address] [place] [phone] Subjective: * Chief Complaints: * 1 . [...] for 1 hour 0 08/09/2022 SCS Trial Fwqcdj17% relief for 1 week 0 02/08/2024- #1 [...] * Vitals: * Examination: G eneral Examination: Nurse/Technical Support Intern: Madeleine Gonzalez (MA-Lex) 04/02/2024 9:48:48 AM > [...] scars. Assessment: * Assessment: 1. O ther custodial (current) drug therapy - Z79.899 (Primary) 2 [...] no relief with TFESI LT in January. [employer] rep in the room changing SCS settings. [...] Raymon Morrissey II, M.D. on 07/10/2025 at 09:05 AM CYTOTECHNOLOGIST/HISTOTECHNOLOGIST Sign off status: Pending * Provider: Reji Morrissey II, M.D. Date: 07/28/2023 Generated for Irwin spears/Davon/Rumasmitting on: 09/10/2024 09:05 AM CYTOTECHNOLOGIST/HISTOTECHNOLOGIST History and Physical Notes * HPI (History [...] to advanced foraminal encroachment PHYSICAL/AQUA THERAPY/DME/OTHER HISTORY: 2163-5365 Chiropractic therapy program complete 06/2023-Present: Patient continues a prescribed home exercise program 3-5 times per week which includes walking, lumbar stretches, and alternating leg lifts PERTINENT SURGICAL EVALUATIONS/SPECIALIST CONSULTS 04/2022 - Dr. Rodriguez - No surgery recommened, recommends SCS trial PREVIOUS INJECTION\PROCEDURE HISTORY: 08/21/2019 #1 SIJAYLYN RT 20% relief for 1 hour 08/09/2022 SCS Trial [place] 80% relief for 1 week 02/08/2024 - [...] wi th an antalgic gait, pitched forward Nurse/Technical Support Intern: Mendez (ALEJANDRINA-Shamar)Francisco J 04/02/2024 9:48:48 AM > [...]
--- OUTSIDE RECORDS SUMMARY | 2025-07-09 21:00 | XMS_ITS | Continuity of Care Document ---
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 ; Obesity ; FAMILY HISTORY RELATION: Father Status: Cause of : Malignant tumor of lung Age at : 55 SNOMED-CT Diagnosis Age At Onset Information not available RELATION: Mother Status: Cause of : Unknown Age at : Unknown SNOMED-CT Diagnosis Age At Onset [id number] Diabetes mellitus PROBLEMS PATIENT PROBLEMS Code Description/Comments Category Status Upda gigi By [id number] Chronic back pain active [id number] on July 03, 2025 5:48:08 PM UT [id number] 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 active [id number] o n July 04, 2025 12:32:46 PM UT [id number] Obesity active [id number] on Jun 12:33:01 PM UT RESULTS Patient: RENATA Lozano Date of : [birth year] 4 LABORATORY RESULTS ORDER 2800: C-REACTIVE PROTE IN CRP (LOINC: 1987-11) ORDER DATE: July 03, 2025 10:18:00 PM UTC Specimen Source: PLASMA Specimen Type: Plasma specim en PERFORMING LAB: [address] [id number] Result Comment: Final Result Date: July 04, [...] Blood specime n with EDTA PERFORMING LAB: [address] [id number] Result Comment: Final Result Date: July 04, 2025 1:08:00 AM UTC (TECH: AY) LOINC TEST FLAG RESULT REFERENCE RANGE UPDA GIGI BY 4537-7 Erythrocyte sedimentation rate by Westergren method N 13 0 - 15 July 04, 2025 1:08:00 AM UTC (TECH: AY) ORDER 3000: CBC AUTO W DIFF (LOINC: 37886-7) ORDER DATE: July 03, 2025 10:18:00 PM UTC Specimen Source: EDTA Specimen Type: Blood specime n with EDTA PERFORMING LAB: [address] [id number] Result Comment: Final Result Date: July 04, [...] 04, 2025 2:36:00 AM UTC (TECH: AY) 34701-9 Hematocrit [Volume Fraction] of Blood L 34.5 [...] 04, 2025 2:36:00 AM UTC (TECH: AY) 65586-7 Erythrocyte distribution width [Ratio] H 14.1 % 11.5 % - 14.0 % July 04, 2025 2:36:00 AM UTC (TECH: AY) 777-3 Platelets [#/volume] in Blood by Automated count N 238 K/ul 150 K/ul - 450 K/ul July 04, 2025 2:36:00 AM UT (TECH: AY) 55578-2 Platelet mean volume [Entitic volume] in Blood by Automated count N 9.2 fl 6 fl - 9.5 fl July 04, 2025 2:36:00 AM UTC (TECH: AY) 47762-9 Neutrophils/100 leukocytes in Blood H 94.3 % [...] 04, 2025 2:36:00 AM UTC (TECH: AY) 02866-4 Immature granulocytes/100 leukocytes in Blood by Automated count H 1.2 % 0.0 % - 0.8 % July 04, 2025 2:36:00 AM UTC (TECH: AY) 39384-8 Nucleated cells [#/volume] in Blood N 0.0 % July 04, 2025 2:36:00 AM UTC (TECH: AY) 17641-1 Neutrophils [#/volume] in Blood H 13.5 K/uL [...] 04, 2025 2:36:00 AM UTC (TECH: AY) 18095-7 Immature granulocytes [#/volume] in Blood N 0.17 K/ul July 04, 2025 2:36:00 AM UTC (TECH: AY) 22905-3 Nucleated cells [#/volume] in Blood N 0.00 K/uL July 04, 2025 2:36:00 AM UTC (TECH: AY) 53615-2 Manual Differential panel - Blood N YES July 04, 2025 2:36:00 AM UT (TECH: AY) 14970-2 Neutrophils.segmente d/100 leukocytes in Blood by Automated [...] 04, 2025 2:36:00 AM UT (TECH: AY) 96729-1 Erythrocytes [Morphology] in Blood by Automated count N NORMAL NORMAL July 04, 2025 2:36:00 AM [facility] (TECH: AY) ORDER 3100: COMP METABOLIC P SURINDER (LOINC: 31033-8) ORDER DATE: July 03, 2025 10:18:00 PM UT Specimen Source: PLASMA Specimen Type: Plasma specim en PERFORMING LAB: [address] [id number] Result Comment: Final Result Date: July 04, 2025 1:20:00 AM UT (TECH: LOOKSIMA) LOINC TEST FLAG RESULT REFERENCE RANGE UPDA [...] July 04, 2025 1:20:00 AM UT (TECH: LOOKSIMA) 8-9 Carbon dioxide, tota l [Moles/volume] in Serum or Plasma N 25.2 mmol/L 21.0 mmol/L - 32.0 mmol/L July 04, 2025 1:20:00 AM UT (TECH: LOOKSIMA) 12763-7 Anion gap in Blood N 16.6 D ec2024 1:20:00 AM UTC (TECH: LOOKSIMA) 2345-7 Glucose [Mass/volume ] in Serum or Plasma H 263 mg/dl 70 mg/dl - 120 mg/dl July 04, 2025 1:20:00 AM UT (TECH: LOOKSIMA) 6299-2 Urea nitrogen [Mass/volume] in Blood N 12 mg/dL 7 mg/dL - 18 mg/dL July 04, 2025 1:20:00 AM UT (TECH: LOOKSIMA) 30637-9 Creatinine [Moles/volume] in Blood N 1.3 mg/dL 0.6 mg/dL - 1.3 mg/dL July 04, 2025 1:20:00 AM UT (TECH: LOOKSIMA) 63525-2 Glomerular filtratio n rate/1.73 sq M.predicted by Creatinine-based formula (MDRD) L 58 mlpermin 60 mlpermin July 04, 2025 1:20:00 AM [facility] (TECH: LOOKSIMA) 21077-9 Osmolality of Serum or Plasma by calculated by sum of electrolytes N 298 mosm/kg 275 mosm/kg - 301 mosm/kg July 04, 2025 1:20:00 AM UT (TECH: LOOKSIMA) 2885-2 Protein [Mass/volume ] in Serum or Plasma N 7.1 g/dl 6.4 g/dl - 8.2 g/dl July 04, 2025 1:20:00 AM UT (TECH: LOOKSIMA) 1751-7 Albumin [Mass/volume ] in Serum or Plasma N 3.6 g/dl 3.4 g/dl - 5.0 g/dl July 04, 2025 1:20:00 AM UT (TECH: LOOKSIMA) 2336-6 Globulin [Mass/volum e] in Serum N 3.5 July 04, 2025 1:20:00 AM UT (TECH: ME) 1759-0 Albumin/Globulin [Ma ss Ratio] in Serum or Plasma N 1.0 0.7 - 2 July 04, 2025 1:20:00 AM [facility] (TECH: ME) 43705-1 Calcium [Mass/volume ] in Serum or Plasma N 8.7 mg/dl 8.5 mg/dl - 10.5 mg/dl July 04, 2025 1:20:00 AM [facility] (TECH: ME) 1975-2 Bilirubin.total [Mass/volume] in Serum or Plasma N 0.40 mg/dL 0.10 mg/dL - 1.00 mg/dL July 04, 2025 1:20:00 AM [facility] (TECH: ME) 1920-8 Aspartate aminotransferase [Enzymatic activity/volume] in Serum or Plasma N 14 U/L 0 U/L - 37 U/L July 04, 2025 1:20:00 AM [facility] (TECH: LOOKSIMA) 1742-6 Alanine aminotransferase [Enzymatic activity/volume] in Serum or Plasma N 23 U/L 0 U/L - 65 U/L July 04, 2025 1:20:00 AM [facility] (TECH: ME) 6768-6 Alkaline phosphatase [Enzymatic activity/volume] in Serum or Plasma N 69 U/L 46 U/L - 116 U/L July 04, 2025 1:20:00 AM [facility] (TECH: ME) ORDER 3500: BASIC METABOLIC PANEL (LOINC: 80901-3) ORDER DATE: July 03, 2025 10:19:00 PM [facility] Specimen Source: PLASMA Specimen Type: Plasma specim en PERFORMING LAB: [address] [id number] Result Comment: Final Result Date: July 04, 2025 11:56:00 AM [facility] (TECH: ARR) LOINC TEST FLAG RESULT REFERENCE [...] 04, 2025 11:56:00 AM UTC (TECH: ARR) 53699-9 Anion gap in Blood N 14.4 D ec2024 11:56:00 AM UTC (TECH: ARR) 2345-7 Glucose [Mass/volume] in Serum or Plasma H 147 mg/dl 70 mg/dl - 120 mg/dl July 04, 2025 11:56:00 AM UTC (TECH: ARR) 6299-2 Urea nitrogen [Mass/volume] in Blood N 11 mg/dL 7 mg/dL - 18 mg/dL July 04, 2025 11:56:00 AM UTC (TECH: ARR) 90549-1 Creatinine [Moles/volume] in Blood N 1.2 mg/dL 0.6 mg/dL - 1.3 mg/dL July 04, 2025 11:56:00 AM UTC (TECH: ARR) 13353-4 Glomerular filtration rate/1.73 sq M.predicted by Creatinine-based formula (MDRD) N 64 mlpermin 60 mlpermin July 04, 2025 11:56:00 AM UT (TECH: ARR) 38422-6 Osmolality of Serum or Plasma by calculated by sum of electrolytes N 289 mosm/kg 275 mosm/kg - 301 mosm/kg July 04, 2025 11:56:00 AM UTC (TECH: ARR) 10292-5 Calcium [Mass/volume] in Serum or Plasma L 8.4 mg/dl 8.5 mg/dl - 10.5 mg/dl July 04, 2025 11:56:00 AM UT (TECH: ARR) ORDER 3600: PROCALCITONIN (L OINC: 48899-2) ORDER DATE: July 03, 2025 10:19:00 PM UT Specimen Source: PLASMA Specimen Type: Plasma specim en PERFORMING LAB: [address] [id number] Result Comment: Final Result Date: July 04, 2025 1:30:00 AM UTC (TECH: AY) LOINC TEST [place] [address]-6 Procalcitonin [Mass/volume] in Serum or Plasma by Immunoassay N <0.05 ng/mL 0.00 ng/mL - 0.5 ng/mL July 04, 2025 1:30:00 AM UTC (TECH: AY) ORDER 3700: VANCOMYCIN TROUG H (LOINC: 4092-3) ORDER DATE: July 04, 2025 12:18:00 PM UTC Specimen Source: SERUM Specimen Type: Serum specime n PERFORMING LAB: [address] [id number] Result Comment: Final Result Date: July 05, [...] Specimen Type: Plasma specim en PERFORMING LAB: [address] [id number] Result Comment: Final Result Date: July 05, 2025 12:34:00 PM UTC (TECH: ADB) LOINC TEST FLAG RESULT REFERENCE RANGE UPDA GIGI BY 2157-6 Creatine kinase [Enzymatic activity/volume] in Serum or Plasma N 221 IU/l 35 IU/l - 232 IU/l July 05, 2025 12:34:00 PM UTC (TECH: ADB) LABORATORY NARRATIVE RESULTS Information is not available RADIOLOGY RESULTS ORDER 3200: CHEST PORTABLE ( LOINC: 12126-6) ORDER DATE: July 03, 2025 10:18:00 PM UTC PERFORMING LAB: [address] [id number] Final Result Date: July 04, 2025 1:49:26 PM UTC [facility] [address] [address] Name: ISATU YANEZ Exam Date: 07/04/2025 : 1950 Age 74 years Gender: M Physician: LANDON GARCIA Facility: [facility] Facility HSV: Outpatient Exam: CHEST PORTABLE PROCEDURE: XR CHEST 1 VIEW PORTABLE, 07/04/2025 2:02 AM 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 COMPARISON: June 25, 2024 [...] 07/04/2025 08:49 AM [facility] [place] [place] Dictated By: Nikki Szymanski Transcribed By: Transcribed On: 07/04/2025 8:49 AM Electronically signed by: Nikki Szymanski 07/04/2025 Thank you for referring ISATU YANEZ to [facility]. Legally authenticated by KAMLA SHAVER 2025-07-04 08:49:26 PATHOLOGY NARRATIVE RESULTS Information is not available MICROBIOLOGY RESULTS ORDER 700: CULTURE WOUND ( INC: 6462-6) ORDER DATE: July 03, 2025 5:58:00 PM UTC PERFORMING LAB: [address] [id number] Specimen Source: OTHER Specimen Type: Result Comment: [...] 07, 2025 10:38:00 AM UTC (TECH: MH2) [facility] ANTIBIOTIC JN TYPE VALUE UPDATED B Y 97273-7 Amox/K Clav <= 0.0 Systemic R July 07, 2025 10:38:00 AM UTC (TECH: MH2) 81293-7 Ampicillin >8.0 Systemic R July 07, 2025 10:38:00 AM UTC (TECH: MH2) 37659-0 Amp/Sulbactam <= 0.0 Systemic R Decemb er 2024 10:38:00 AM UTC (TECH: MH2) 72024-7 Azithromycin >4.0 Systemic R Decembe r 2024 [...] June 182024 10:38:00 AM UTC (TECH: MH2) 48065-2 Cefazolin <= 8.0 Systemic R June 182024 10:38:00 AM UTC (TECH: MH2) 15493-7 Ceftriaxone <= 8.0 Systemic R July 07, 2025 10:38:00 AM UTC (TECH: MH2) 32220-9 Ciprofloxacin <= 1.0 Systemic S Decemb er 2024 10:38:00 AM UTC (TECH: MH2) 48687-9 Clindamycin 1.0 Systemic I July 07, 2025 10:38:00 AM UTC (TECH: MH2) 36413-8 Erythromycin >4.0 Systemic R Decembe r 2024 10:38:00 AM UTC (TECH: MH2) 57706-5 Gentamicin <= 4.0 Systemic S July 07, 2025 10:38:00 AM UTC (TECH: MH2) 86150-6 Oxacillin >2.0 Systemic R June 182024 10:38:00 AM UTC (TECH: MH2) 21330-9 Penicillin >8.0 Systemic R July 07, 2025 10:38:00 AM UTC (TECH: MH2) 08067-1 Rifampin <= 1.0 Systemic S June 182024 10:38:00 AM UTC (TECH: MH2) 15312-9 Tetracycline <= 4.0 Systemic S Decembe r 2024 10:38:00 AM UTC (TECH: MH2) 95051-2 Trimeth/Sulfa 0.5 Systemic S Decemb er 2024 10:38:00 AM UTC (TECH: MH2) 13038-7 Vancomycin 2.0 Systemic S July 07, 2025 10:38:00 AM UTC (TECH: MH2) BLOOD ADMIN RESULTS Information is not available TREATMENT PLAN DISCHARGE MEDICATIONS Status RXNORM Medication Dose Route Frequency Dates Comments U pdated By Continued 878311 Losartan Potassium Oral Tablet 100 MG 100 MG ORAL ONCE DAILY Prescribe d: July 05, 2025 1:21:51 PM UT [id number] on July 05, 2025 1:21:51 PM UT Continued 463396 DAPTOMYCIN 1000 MG INTRAVENOUS EVERY 24 HOURS Prescribe d: July 05, 2025 1:21:51 PM UTC 100 ML/HR 10 MG/KG FOR ENDOCARDIT IS ONLY [id number] on July 05, 2025 1:21:51 PM UTC Continued 906474 LORazepam Oral Tablet 1 MG 1 MG ORAL THREE TIMES A DAY Prescribe d: July 05, 2025 1:21:51 PM UTC [id number] on July 05, 2025 1:21:51 PM UT Continued 0977386 sodium chloride 0.9% 50 ML INTRAVENOUS EVERY 24 HOURS Prescribe d: July 05, 2025 1:21:51 PM UTC 100 ML/HR 10 MG/KG FOR ENDOCARDIT IS ONLY [id number] on July 05, 2025 1:21:51 PM UTC Continued 810617 Finasteride Oral Tablet 5 MG 5 MG ORAL ONCE DAILY Prescribe d: July 05, 2025 1:21:51 PM [facility] [id number] on July 05, 2025 1:21:51 PM [facility] Continued 981271 DULoxetine HCl Oral Capsule Delayed Release Particles 60 MG 60 MG ORAL ONCE DAILY Prescribe d: July 05, 2025 1:21:51 PM [facility] [id number] on July 05, 2025 1:21:51 PM [facility] Continued 3480438 Trelegy Ellipta Inhalation Aerosol Powder Breath Activated 100-62.5-25 MCG/ACT 1 PUF INHALED ONCE DAILY Prescribe d: July 05, 2025 1:21:51 PM [facility] [id number] on July 05, 2025 1:21:51 PM [facility] Continued 115450 Tamsulosin HCl Oral Capsule 0.4 MG 2 TAB ORAL ONCE DAILY Prescribe d: July 05, 2025 1:21:51 PM [facility] [id number] on July 05, 2025 1:21:51 PM [facility] Continued 113972 Singulair Oral Tablet 10 MG 10 MG ORAL ONCE DAILY Prescribe d: July 05, 2025 1:21:51 PM [facility] [id number] on July 05, 2025 1:21:51 PM [facility] Continued 910722 Pantoprazol e Sodium Oral Tablet Delayed Release 40 MG 40 MG ORAL ONCE DAILY Prescribe d: July 05, 2025 1:21:51 PM [facility] [id number] on July 05, 2025 1:21:51 PM [facility] Continued 606327 traZODone HCl Oral Tablet 150 MG 150 MG ORAL ONCE DAILY Prescribe d: July 05, 2025 1:21:51 PM [facility] [id number] on July 05, 2025 1:21:51 PM [facility] Continued 1280297 Percocet Oral Tablet 5-325 MG 5 MG ORAL EVERY FOUR HOURS NEEDED Prescribe d: July 05, 2025 1:21:51 PM [facility] [id number] on July 05, 2025 1:21:51 PM [facility] PATIENT OPEN ORDERS Code System Descripti on Frequency Occurrenc es Priority Category Start Date Ordering Physicia n Updated By 8100-0 [facility] Specimen preparati on [Type] of Unspecifi ed spec ONE TIME 0 Routine July 03, 2025 5:22:00 PM [facility] MARINO MARTÍNEZ [id number] on July 03, 2025 5:58:00 PM [facility] SCHEDULED PROCEDURES Code System Description Status Scheduled Date Upd ated By Patient scheduled procedure information is not available. MEDICATIONS HOME MEDICATIONS Status RXNORM [facility] Medication Dose Route Frequency Dates Comments Reported By Updated By Active 373575 08310 75840 0 DULoxetine HCl Oral Capsule Delayed Release Particles 60 MG 60.0 MG ORAL DAILY Last Dose: [facility] 2024 10:00: 00 PM [facility] [id number] on July 03, 2025 3:49:50 PM [facility] Active 653230 33451 70112 6 Finasteride Oral Tablet 5 MG 5.0 MG ORAL DAILY Last Dose: [id number] on June 27, 2025 4:37:32 PM UT Active 527237 33697 81150 1 LORazepam Oral Tablet 1 MG 1.0 MG ORAL TID Last Dose: [facility] 2024 1:00:0 0 PM [facility] [id number] on July 03, 2025 3:49:20 PM [facility] Active 059972 35399 59658 0 Losartan Potassium Oral Tablet 100 MG 100.0 MG ORAL DAILY Last Dose: [facility] 2024 3:30:0 0 AM [facility] [id number] on July 03, 2025 3:49:59 PM [facility] Active 179304 13861 58722 0 Pantoprazole Sodium Oral Tablet Delayed Release 40 MG 40.0 MG ORAL DAILY Last Dose: [id number] on June 27, 2025 4:37:40 PM [facility] Active 250931 57439 15966 3 Singulair Oral Tablet 10 MG 10.0 MG ORAL DAILY Last Dose: [facility] 2024 10:00: 00 PM [facility] [id number] on July 03, 2025 3:50:09 PM [facility] Active 342335 15909 51451 1 Tamsulosin HCl Oral Capsule 0.4 MG 2.0 TAB ORAL DAILY Last Dose: [facility] 2024 10:00: 00 PM [facility] [id number] on July 03, 2025 5:50:25 PM [facility] Active 860137 28692 99289 1 traZODone HCl Oral Tablet 150 MG 150.0 MG ORAL DAILY Last Dose: [facility] 2024 3:30:0 0 AM [facility] [id number] on July 03, 2025 3:50:33 PM [facility] Active 7739844 39468 37364 0 Trelegy Ellipta Inhalation Aerosol Powder Breath Activated 100-62.5-25 MCG/ACT 1.0 PUF INHALA TION DAILY Last Dose: [facility] 2024 1:00:0 0 PM UT [id number] on July 03, 2025 5:52:50 PM UT DISCHARGE MEDICATIONS Status RXNORM [facility] Medication Dose Route Frequency Dates Dis pense Data Comments Physician Updated By Continu ed [id number] 6113 8734 251 Losartan Potassium Oral Tablet 100 MG 100.0 MG ORAL ONCE DAILY Prescr ibed: [facility] 2024 1:21:5 1 PM UTC Fill Status = Unknown, Repeat Number = 0, Quantity = 0 AJ CM [id number] on July 05, 2025 1:21:51 PM UT Continu ed 274146 5453 7091 350 DAPTOMYCIN 1000. 0 MG INTRAV ENOUS EVERY 24 HOURS Prescr ibed: [facility] 2024 1:21:5 1 PM UTC Fill Status = Unknown, Repeat Number = 0, Quantity = 0 100 ML/HR 10 MG/KG FOR ENDOCARDI TIS ONLY AJ CM [id number] on July 05, 2025 1:21:51 PM UT Continu ed 591486 2902 4074 301 LORazepam Oral Tablet 1 MG 1.0 MG ORAL THREE TIMES A DAY Prescr ibed: [facility] 2024 1:21:5 1 PM UTC Fill Status = Unknown, Repeat Number = 0, Quantity = 0 AJ CM [id number] on July 05, 2025 1:21:51 PM UT Continu ed 3042473 2694 8004 941 sodium chloride 0.9% 50.0 ML INTRAV ENOUS EVERY 24 HOURS Prescr ibed: [facility] 2024 1:21:5 1 PM UTC Fill Status = Unknown, Repeat Number = 0, Quantity = 0 100 ML/HR 10 MG/KG FOR ENDOCARDI TIS ONLY AJ CM [id number] on July 05, 2025 1:21:51 PM UT Continu ed 827199 0582 3735 556 Finasteride Oral Tablet 5 MG 5.0 MG ORAL ONCE DAILY Prescr ibed: [facility] 2024 1:21:5 1 PM UTC Fill Status = Unknown, Repeat Number = 0, Quantity = 0 AJ CM [id number] on July 05, 2025 1:21:51 PM [facility] Continu ed [id number] 1751 433 DULoxetine HCl Oral Capsule Delayed Release Particles 60 MG 60.0 MG ORAL ONCE DAILY Prescr ibed: [facility] 2024 1:21:5 1 PM UTC Fill Status = Unknown, Repeat Number = 0, Quantity = 0 AJ CM [id number] on July 05, 2025 1:21:51 PM [facility] Continu ed 1270875 5364 3088 710 Trelegy Ellipta Inhalation Aerosol Powder Breath Activated 100-62.5-25 MCG/ACT 1.0 PUF INHALE D ONCE DAILY Prescr ibed: [facility] 2024 1:21:5 1 PM UTC Fill Status = Unknown, Repeat Number = 0, Quantity = 0 AJ CM [id number] on July 05, 2025 1:21:51 PM [facility] Continu ed 320904 5986 1207 601 Tamsulosin HCl Oral Capsule 0.4 MG 2.0 TAB ORAL ONCE DAILY Prescr ibed: [facility] 2024 1:21:5 1 PM UTC Fill Status = Unknown, Repeat Number = 0, Quantity = 0 AJ CM [id number] on July 05, 2025 1:21:51 PM [facility] Continu ed 702047 6876 5016 403 Singulair Oral Tablet 10 MG 10.0 MG ORAL ONCE DAILY Prescr ibed: [facility] 2024 1:21:5 1 PM UTC Fill Status = Unknown, Repeat Number = 0, Quantity = 0 AJ CM [id number] on July 05, 2025 1:21:51 PM [facility] Continu ed 621986 2469 1078 230 Pantoprazol e Sodium Oral Tablet Delayed Release 40 MG 40.0 MG ORAL ONCE DAILY Prescr ibed: [facility] 2024 1:21:5 1 PM UTC Fill Status = Unknown, Repeat Number = 0, Quantity = 0 AJ CM [id number] on July 05, 2025 1:21:51 PM UT Continu ed [id number] 49867509 1510 481 traZODone HCl Oral Tablet 150 MG 150.0 MG ORAL ONCE DAILY Prescr ibed: [facility] 2024 1:21:5 1 PM UTC Fill Status = Unknown, Repeat Number = 0, Quantity = 0 AJ CM [id number] on July 05, 2025 1:21:51 PM UT Continu ed [id number] 4070 1062 370 Percocet Oral Tablet 5-325 MG 5.0 MG ORAL EVERY FOUR HOURS NEEDED Prescr ibed: [facility] 2024 1:21:5 1 PM UTC Fill Status = Unknown, Repeat Number = 0, Quantity = 0 AJ CM [id number] on July 05, 2025 1:21:51 PM [facility] INPATIENT MEDICATIONS Status RXNORM [facility] Medication Dose Route Frequency Rat e Quantity Dates Indication Dispense Data Comments Physician Updated By Discont inued 8355 2786 655 NOZIN 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 POPSWAB SWAB 1.0 EA NASAL ONE TIME ADMINISTRA TION (UNSCHEDUL ED) Start: [facility] 2024 11:00: 00 AM UTC End: [facility] 2024 3:48:2 3 PM UTC Fill Status = Completed , Repeat Number = 0, Quantity = 0.000 AJ CM [id number] on July 03, 2025 3:48:00 PM UTC Discont inued [id number] 3945 7084 001 ceFAZolin (ANCEF) 2 GM SOLR 2.0 GM INTRAV ENOUS ONE TIME ADMINISTRA TION (UNSCHEDUL ED) Start: [facility] 2024 11:00: 00 AM UTC End: [facility] 2024 3:48:2 3 PM UTC Fill Status = Completed , Repeat Number = 0, Quantity = 0.000 AJ CM [id number] on July 03, 2025 3:48:00 PM UTC Discont inued 753655 3338 8011 704 LACTATED RINGERS SOLN 1000. 0 ML INTRAV ENOUS ONE TIME ONLY (PACU) 25.0 ML/HR Start: [facility] 2024 10:56: 00 PM UTC End: [facility] 2024 9:50:3 6 PM UTC Fill Status = Completed , Repeat Number = 0, Quantity = 0.000 HENRIK Vanessa [id number] on July 03, 2025 9:50:00 PM UTC Discont inued [id number] 0049 9163 630 meperidine (DEMEROL) 25 MG/ML SOLN 12.5 MG INTRAV ENOUS NEEDED (PACU) Start: [facility] 2024 10:56: 00 PM UTC End: [facility] 2024 9:50:3 6 PM UTC Fill Status = Completed , Repeat Number = 0, Quantity = 0.000 HENRIK Vanessa [id number] on July 03, 2025 9:50:00 PM UTC Discont inued 6354385 0064 1624 725 fentaNYL (SUBLIMAZE) VIAL 50 MGC/ML SOLN 25.0 MCG INTRAV ENOUS EVERY 5 MINUTES NEEDED (PACU) Start: [facility] 2024 10:56: 00 PM UTC End: [facility] 2024 9:50:3 6 PM UTC Fill Status = Completed , Repeat Number = 0, Quantity = 0.000 HENRIK Vanessa [id number] on July 03, 2025 9:50:00 PM UTC Discont inued 4591032 0562 9426 401 HYDROmorpho ne (DILAUDID) 0.5 MG/0.5ML SOLN 0.5 MG INTRAV ENOUS EVERY 10 MINUTES NEEDED (PACU) Start: [facility] 2024 10:56: 00 PM UTC End: [facility] 2024 9:50:3 6 PM UTC Fill Status = Completed , Repeat Number = 0, Quantity = 0.000 HENRIK Vanessa [id number] on July 03, 2025 9:50:00 PM UTC Discont inued 8062825 7986 9128 331 HYDROmorpho ne (DILAUDID) 1 MG/ML SOLN 1.0 MG INTRAV ENOUS EVERY 10 MINUTES NEEDED (PACU) Start: [facility] 2024 10:56: 00 PM UTC End: [facility] 2024 9:50:3 6 PM UTC Fill Status = Completed , Repeat Number = 0, Quantity = 0.000 HENRIK Vanessa [id number] on July 03, 2025 9:50:00 PM UTC Discont inued 1934921 4475 5613 000 ondansetron (ZOFRAN) INJ 4 MG/2 ML SOLN 4.0 MG INTRAV ENOUS NEEDED (PACU) Start: [facility] 2024 10:56: 00 PM UTC End: [facility] 2024 9:50:3 6 PM UTC Fill Status = Completed , Repeat Number = 0, Quantity = 0.000 HENRIK Vanessa [id number] on July 03, 2025 9:50:00 PM UTC Discont inued [id number] droperidol (INAPSINE) 2.5 MG/ML SOLN 0.625 MG INTRAV ENOUS NEEDED (PACU) Start: [facility] 2024 10:56: 00 PM UTC End: [facility] 2024 2:12:5 7 PM UTC Fill Status = Completed , Repeat Number = 0, Quantity = 0.000 HENRIK Vanessa [id number] on July 04, 2025 2:12:00 PM UTC Discont inued [id number] midazolam (VERSED) 2 MG/2 ML SOLN 1.0 MG INTRAV ENOUS EVERY FIVE MINUTES NEEDED Start: [facility] 2024 10:56: 00 PM UTC End: [facility] 2024 9:50:3 6 PM UTC Fill Status = Completed , Repeat Number = 0, Quantity = 0.000 HENRIK Vanessa [id number] on July 03, 2025 9:50:00 PM UTC Discont inued [id number] 6717 1092 825 promethazin e (PHENERGAN) 25 MG/ML SOLN 12.5 MG INTRAV ENOUS NEEDED (PACU) Start: [facility] 2024 10:56: 00 PM UTC End: [facility] 2024 9:50:3 6 PM UTC Fill Status = Completed , Repeat Number = 0, Quantity = 0.000 HENRIK Vanessa [id number] on July 03, 2025 9:50:00 PM UTC Discont inued XXXX XXX0 011 promethazin e (PHENERGAN) 12.5 MG GEL 12.5 MG TOPICA L NEEDED (PACU) Start: [facility] 2024 10:56: 00 PM UTC End: [facility] 2024 9:50:3 7 PM UTC Fill Status = Completed , Repeat Number = 0, Quantity = 0.000 HENRIK Vanessa [id number] on July 03, 2025 9:50:00 PM UTC Discont inued [id number] 4631 9909 332 PACU - fentaNYL (SUBLIMAZE) 100 MCG/2ML SOLN 100.0 MCG INTRAV ENOUS ONE TIME ONLY (SCHEDULED DOSE) Start: [facility] 2024 3:37:0 0 PM UTC End: [facility] 2024 3:37:0 0 PM UTC Fill Status = Completed , Repeat Number = 0, [facility]ity = [facility].000 [facility] on July 03, 2025 3:36:00 PM UTC Discont inued [id number] 1730 3046 817 bupivacaine -MPF 0.25% w/EPI 10 ML SOLN 10.0 ML INTRAV ENOUS ONE TIME ONLY (SCHEDULED DOSE) Start: [facility] 2024 4:49:0 0 PM UTC End: [facility] 2024 4:49:0 0 PM UTC Fill Status = Completed , Repeat Number = 0, Quantity = 1.000 [facility] ED on July 03, 2025 4:48:00 PM UTC Discont inued [id number] 5148 3028 420 vancomycin (VANCOCIN) 1000 MG SOLR 1000. 0 MG INTRAV ENOUS ONE TIME ONLY (SCHEDULED DOSE) Start: [facility] 2024 5:23:0 0 PM UTC End: [facility] 2024 5:23:0 0 PM UTC Fill Status = Completed , Repeat Number = 0, Quantity = 1.000 [facility] ED on July 03, 2025 5:22:00 PM UTC Discont inued 905232 2914 6016 088 tamsulosin (FLOMAX) 0.4 MG CAPS 0.4 MG ORAL ONCE DAILY Start: [facility] 2024 2:00:0 0 PM UTC End: [facility] 2024 2:00:0 0 PM UTC Fill Status = Completed , Repeat Number = 0, Quantity = 0.000 YVETTE Stephen [id number] on July 03, 2025 6:56:00 PM UTC Discont inued [id number] 8378 3088 714 TRELEGY ELLIPTA 100-62.5-25 MCG/ACT AEPB 1.0 INH INHALE D ONCE DAILY Start: [facility] 2024 2:00:0 0 PM UTC End: [facility] 2024 1:21:5 1 PM UTC Fill Status = Completed , Repeat Number = 0, Quantity = 1.000 YVETTEIrais Stephen [id number] on July 06, 2025 5:25:00 AM UTC Discont inued Free Text Med Singulair Oral Tablet 10 MG 10.0 MG ORAL ONCE DAILY Start: [facility] 2024 2:00:0 0 PM UTC End: [facility] 2024 2:00:0 0 PM UTC Fill Status = Completed , Repeat Number = 0, Quantity = 0.000 YVETTE RIA T [id number] on July 03, 2025 6:54:00 PM UTC Discont inued Free Text Med traZODone HCl Oral Tablet 150 MG 150.0 MG ORAL ONCE DAILY Start: [facility] 2024 2:00:0 0 PM UTC End: [facility] 2024 2:00:0 0 PM UTC Fill Status = Completed , Repeat Number = 0, Quantity = 0.000 YVETTE LOZADA T [id number] on July 03, 2025 6:55:00 PM UTC Discont inued [id number] 6913 2070 290 losartan potassium (COZAAR) 100 MG TABS 100.0 MG ORAL ONCE DAILY Start: [facility] 2024 2:00:0 0 PM UTC End: [facility] 2024 7:39:0 0 PM UTC Fill Status = Completed , Repeat Number = 0, Quantity = 2.000 YVETTE LOZADA T [id number] on July 06, 2025 5:25:00 AM UTC Discont inued 561736 2391 4081 309 pantoprazol e (PROTONIX) 40 MG TBEC 40.0 MG ORAL ONCE DAILY Start: [facility] 2024 2:00:0 0 PM UTC End: [facility] 2024 7:39:0 0 PM UTC Fill Status = Completed , Repeat Number = 0, Quantity = 2.000 YVETTE LZOADA T [id number] on July 06, 2025 5:25:00 AM UTC Discont inued 790735 2994238 9907 7431 001 finasteride (PROSCAR) 5 MG TABS 5.0 MG ORAL ONCE DAILY Start: [facility] 2024 2:00:0 0 PM UTC End: [facility] 2024 7:39:0 0 PM UTC Fill Status = Completed , Repeat Number = 0, Quantity = 2.000 YVETTE KIERRA T [id number] on July 06, 2025 5:25:00 AM UTC Discont inued 070494 8126 1024 105 LORazepam (ATIVAN) 1 MG TABS 1.0 MG ORAL THREE TIMES A DAY Start: [facility] 2024 7:00:0 0 PM UTC End: [facility] 2024 7:39:0 0 PM UTC Fill Status = Completed , Repeat Number = 0, Quantity = 6.000 YVETTE KIERRA T [id number] on July 06, 2025 5:25:00 AM UTC Discont inued Free Text Med DULoxetine HCl Oral Capsule Delayed Release Particles 60 MG 60.0 MG ORAL ONCE DAILY Start: [facility] 2024 2:00:0 0 PM UTC End: [facility] 2024 2:00:0 0 PM UTC Fill Status = Completed , Repeat Number = 0, Quantity = 0.000 YVETTE KIERRA T [id number] on July 03, 2025 6:55:00 PM UTC Discont inued 0277 4325 546 sodium chloride 0.9% FLUSH 10 ML SOLN 10.0 ML INTRAV ENOUS NEEDED Start: [facility] 2024 5:54:0 0 PM UTC End: [facility] 2024 1:21:5 1 PM UTC Fill Status = Completed , Repeat Number = 0, Quantity = 0.000 YVETTE KIERRA T [id number] on July 06, 2025 5:25:00 AM UTC Discont inued 9344476 5659 8010 250 PERCOCET 5-325 MG TABS 1.0 TAB ORAL EVERY FOUR HOURS NEEDED Start: [facility] 2024 5:54:0 0 PM UTC End: [facility] 2024 1:21:5 1 PM UTC Fill Status = Completed , Repeat Number = 0, Quantity = 0.000 YVETTE KIERRA T [id number] on July 06, 2025 5:25:00 AM UTC Discont inued 5378942 6332 6501 201 morphine sulfate (FK) 2 MG/ML SOLN 2.0 MG INTRAV ENOUS EVERY TWO HOURS NEEDED Start: [facility] 2024 5:54:0 0 PM UTC End: [facility] 2024 1:21:5 1 PM UTC Fill Status = Completed , Repeat Number = 0, Quantity = 0.000 YVETTE KIERRA T [id number] on July 06, 2025 5:25:00 AM UTC Discont inued 0090 5242 961 multiple vitamin (ONE-A-DAY) TABS 1.0 TAB ORAL ONCE DAILY Start: [facility] 2024 2:00:0 0 PM UTC End: [facility] 2024 1:21:5 1 PM UTC Fill Status = Completed , Repeat Number = 0, Quantity = 2.000 YVETTE KIERRA T [id number] on July 06, 2025 5:25:00 AM UTC Discont inued 4451429 3204 7023 901 docusate sodium (COLACE) 100 MG CAPS 100.0 MG ORAL EVERY TWELVE HOURS NEEDED Start: [facility] 2024 5:54:0 0 PM UTC End: [facility] 2024 1:21:5 1 PM UTC Fill Status = Completed , Repeat Number = 0, Quantity = 0.000 YVETTE KIERRA T [id number] on July 06, 2025 5:25:00 AM UTC Discont inued 0012 1043 130 MILK OF MAGNESIA 7.75 % 400 MG/5 ML SUSP 15.0 ML ORAL ONCE DAILY NEEDED Start: [facility] 2024 5:54:0 0 PM UTC End: [facility] 2024 1:21:5 1 PM UTC Fill Status = Completed , Repeat Number = 0, Quantity = 0.000 YVETTE KIERRA T [id number] on July 06, 2025 5:25:00 AM UTC Discont inued 373780 0901 4704 012 BISACODYL 10 MG SUPP 10.0 MG PER RECTUM - IT SECURITY MANAGER AL ONCE DAILY NEEDED Start: [facility] 2024 5:54:0 0 PM UTC End: [facility] 2024 1:21:5 1 PM UTC Fill Status = Completed , Repeat Number = 0, Quantity = 0.000 YVETTE KIERRA T [id number] on July 06, 2025 5:25:00 AM UTC Discont inued 044905 3416 1039 708 famotidine (PEPCID) 20 MG TABS 20.0 MG ORAL TWICE A DAY Start: [facility] 2024 2:00:0 0 AM UTC End: [facility] 2024 1:21:5 1 PM UTC Fill Status = Completed , Repeat Number = 0, Quantity = 4.000 YVETTEIrais Stephen [id number] on July 06, 2025 5:25:00 AM UTC Discont inued 574330 2566 0041 501 cyclobenzap rine (FLEXERIL) 10 MG TABS 10.0 MG ORAL EVERY EIGHT HOURS NEEDED Start: [facility] 2024 5:54:0 0 PM UTC End: [facility] 2024 1:21:5 1 PM UTC Fill Status = Completed , Repeat Number = 0, Quantity = 1.000 YVETTE Stephen [id number] on July 06, 2025 5:25:00 AM UTC Discont inued 715794 7984 4018 901 zolpidem tartrate (AMBIEN) 5 MG TABS 5.0 MG ORAL AT BEDTIME NEEDED Start: [facility] 2024 2:00:0 0 AM UTC End: [facility] 2024 1:21:5 1 PM UTC Fill Status = Completed , Repeat Number = 0, Quantity = 0.000 YVETET LOZADA T [id number] on July 06, 2025 5:25:00 AM UTC Discont inued 4351619 0040 9710 102 sodium chloride 0.9% SOLN 250.0 ML INTRAV ENOUS EVERY TWELVE HOURS 275.0 ML/HR Start: [facility] 2024 5:54:0 0 PM UTC End: [facility] 2024 8:27:0 4 PM UTC Fill Status = Completed , Repeat Number = 0, Quantity = 0.000 YVETTE Stephen [id number] on July 03, 2025 8:27:00 PM UTC Discont inued 941618 4455 4087 501 montelukast sodium (SINGULAIR) 10 MG TABS 10.0 MG ORAL ONCE DAILY Start: [facility] 2024 2:00:0 0 PM UTC End: [facility] 2024 7:39:0 0 PM UTC Fill Status = Completed , Repeat Number = 0, Quantity = 2.000 YVETTE Stephen [id number] on July 06, 2025 5:25:00 AM UTC Discont inued 175638 62580471 1849 338 traZODone (DESYREL) 50 MG TABS 150.0 MG ORAL AT BEDTIME Start: [facility] 2024 2:00:0 0 AM UTC End: [facility] 2024 1:21:5 1 PM UTC Fill Status = Completed , Repeat Number = 0, Quantity = 6.000 YVETTE Stephen RX0P23 on July 06, 2025 5:25:00 AM UTC Discont inued 874632 5347 1009 809 DULoxetine (CYMBALTA) 30 MG CPEP 60.0 MG ORAL ONCE DAILY Start: [facility] 2024 2:00:0 0 PM UTC End: [facility] 2024 1:21:5 1 PM UTC Fill Status = Completed , Repeat Number = 0, Quantity = 4.000 YVETTE Stephen [id number] on July 06, 2025 5:25:00 AM UTC Discont inued 4267029 4938 7988 499 vancomycin (VANCOCIN) 1500 MG SOLR 1500. 0 MG INTRAV ENOUS EVERY TWELVE HOURS 250.0 ML/HR Start: [facility] 2024 9:00:0 0 PM UTC End: [facility] 2024 11:46: 38 AM UTC Fill Status = Completed , Repeat Number = 0, Quantity = 16.000 YVETTE Stephen [id number] on July 05, 2025 11:46:00 AM UTC Discont inued 3932627 6282 9020 901 PROPOFOL 200 MG/20ML EMUL 400.0 MG INTRAV ENOUS ONE TIME ONLY (SCHEDULED DOSE) 16.667 MG/HR Start: [facility] 2024 8:39:0 0 PM UTC End: [facility] 2024 8:40:5 5 PM UTC Fill Status = Completed , Repeat Number = 0, Quantity = 2.000 PICHARDO TANYA [id number] on July 03, 2025 8:41:00 PM UTC Discont inued 8103879 0987 3016 505 DEXAMETHASO NE SODIUM PHOSPHATE 20.0 MG INTRAV ENOUS ONE TIME ONLY (SCHEDULED DOSE) 0.833 MG/HR Start: [facility] 2024 8:39:0 0 PM UTC End: [facility] 2024 8:40:5 5 PM UTC Fill Status = Completed , Repeat Number = 0, Quantity = 1.000 MARINO TANYA [id number] on July 03, 2025 8:41:00 PM UTC Discont inued 6866244 0158 561 000 ONDANSETRON HCL 4 MG/2ML SOLN 4.0 MG INTRAV ENOUS ONE TIME ONLY (SCHEDULED DOSE) 0.167 MG/HR Start: [facility] 2024 8:39:0 0 PM UTC End: [facility] 2024 8:40:5 5 PM UTC Fill Status = Completed , Repeat Number = 0, Quantity = 1.000 MARINO TANYA [id number] on July 03, 2025 8:41:00 PM UTC Discont inued 5495425 9820 7052 512 QUELICIN 20 MG/ML SOLN 200.0 MG INTRAV ENOUS ONE TIME ONLY (SCHEDULED DOSE) 8.333 MG/HR Start: [facility] 2024 8:39:0 0 PM UTC End: [facility] 2024 8:40:5 5 PM UTC Fill Status = Completed , Repeat Number = 0, Quantity = 1.000 MARINO TANYA [id number] on July 03, 2025 8:41:00 PM UTC Discont inued 9826 6901 101 PHENYLEPHRI NE HCL (PRESSORS) 1 1.0 MG INTRAV ENOUS ONE TIME ONLY (SCHEDULED DOSE) 0.042 MG/HR Start: [facility] 2024 8:39:0 0 PM UTC End: [facility] 2024 8:40:5 5 PM UTC Fill Status = Completed , Repeat Number = 0, Quantity = 1.000 MARINO TANYA [id number] on July 03, 2025 8:41:00 PM UTC Discont inued 620518 2764 7460 525 GLYCOPYRROL ATE 1 MG/5ML SOLN 1.0 MG INTRAV ENOUS ONE TIME ONLY (SCHEDULED DOSE) 0.042 MG/HR Start: [facility] 2024 8:39:0 0 PM UTC End: [facility] 2024 8:40:5 5 PM UTC Fill Status = Completed , Repeat Number = 0, Quantity = 1.000 MARINO [id number] on July 03, 2025 8:41:00 PM UTC Discont inued 9795345 5043 9410 202 LIDOCAINE HCL (PF) 2 % SOLN 10.0 ML ONE TIME ONLY (SCHEDULED DOSE) Start: [facility] 2024 8:39:0 0 PM UTC End: [facility] 2024 8:40:5 5 PM UTC Fill Status = Completed , Repeat Number = 0, Quantity = 1.000 MARINO MARTÍNEZ [id number] on July 03, 2025 8:41:00 PM UTC Discont inued 2302631 8265 7024 110 cefepime (MAXIPIME) 2 GM SOLR 2.0 GM INTRAV ENOUS EVERY TWELVE HOURS 25.0 ML/HR Start: [facility] 2024 1:00:0 0 PM UTC End: [facility] 2024 11:46: 38 AM UTC Fill Status = Completed , Repeat Number = 0, Quantity = 14.000 JOSE Stephen [id number] on July 05, 2025 11:46:00 AM UTC Discont inued 3229676 2739 4037 009 potassium chloride (K-DUR) 20 MEQ TBCR 40.0 MEQ ORAL GIVE ONE DOSE NOW Start: [facility] 2024 6:18:0 0 PM UTC End: [facility] 2024 6:34:4 6 PM UTC Fill Status = Completed , Repeat Number = 0, Quantity = 2.000 KYLEIGH TORRES [id number] on July 04, 2025 6:34:00 PM UTC Discont inued 264567 7536 3060 401 hydrALAZINE (APRESOLINE ) 20 MG/ML SOLN 10.0 MG INTRAV ENOUS GIVE ONE DOSE NOW Start: [facility] 2024 8:30:0 0 AM UTC End: [facility] 2024 8:40:1 2 AM UTC Fill Status = Completed , Repeat Number = 0, Quantity = 1.000 YOLIS BRYANT [id number] on July 05, 2025 8:40:00 AM UTC Discont inued 2583105 6745 7081 350 DAPTOMYCIN 500 MG SOLR 1000. 0 MG INTRAV ENOUS EVERY 24 HOURS 100.0 ML/HR Start: [facility] 2024 5:00:0 0 PM UTC End: [facility] 2024 7:39:0 0 PM UTC Fill Status = Completed , Repeat Number = 0, Quantity = 6.000 JOSE Stephen [id number] on July 06, 2025 5:25:00 AM UT SOCIAL HISTORY SOCIAL HISTORY - Smoking Status SNOMED-CT Social History Element Description Effective Dates Offered Cessation Comment Updated By [id number] Current Tobacco smoking status Former Smoker [id number] on June 27, 2025 4:39:10 PM UT SOCIAL HISTORY - Gender Sex: Male SOCIAL HISTORY - Status : status i nformation is not available Intention in Next Year: intention information is not available SOCIAL HISTORY - Assessments Code System Description Status Date Value of Assessment Updated By Comment Assessment Information is no t available SOCIAL HISTORY - [place] Affiliation [place] information is not av ailable SOCIAL HISTORY [...] for each vital sign as of July 10, 2025 2:00:40 AM UT Loinc Code Vital Sign Activity Date Result Updated By 8302-2 Body height July 03 3:48:50 PM UT 172.72 cm (68.0 in) [id number] on July 03, 2025 3:48:50 [place] [address]-0 Body mass index (BMI ) [Ratio] July 03, 2025 3:48:50 PM UTC 39.052 kg/m2 [id number] on July 03, 2025 3:48:50 PM UT 3140-1 Body Surface Area Derived From Formula July 03, 2025 3:48:50 PM UTC 2.2732 m2 [id number] on July 03, 2025 3:48:50 PM UT 8310-5 Body temperature July 05 5:16:00 PM UT 97.6 [degF] [id number] on July 05, 2025 8:09:50 PM UTC 71374-4 Body weight Measured June 3:48:50 PM UTC 116.5 kg (257.0 lb) [id number] on July 03, 2025 3:48:50 PM UTC 8462-4 Diastolic blood pressure July 05, 2025 5:49:00 PM UTC 102.0 mm[Hg] [id number] on July 05, 2025 5:49:36 PM UTC 8867-4 Heart rate July 05 5:52:00 PM UTC 84 /min [id number] on July 05, 2025 5:52:47 PM UTC 8478-0 Mean blood pressure July 05, 2025 4:59:00 AM UTC 127.0 mm[Hg] [id number] on July 05, 2025 4:59:31 AM UTC 35619-6 Oxygen saturation in Arterial blood by Pulse oximetry July 05, 2025 5:16:00 PM UTC 96.0 % [id number] on July 05, 2025 8:09:50 PM UTC 9279-1 Respiratory rate July 05 5:16:00 PM UTC 20 /min [id number] on July 05, 2025 8:09:50 PM UTC 8480-6 Systolic blood pressure July 05, 2025 5:49:00 PM UTC 181.0 mm[Hg] [id number] on July 05, 2025 5:49:36 PM UTC 68166-1 Vital capacity [Volume] Respiratory system by Spirometry July 05, 2025 1:45:00 PM UTC 1250.0 ml [id number] on July 05, 2025 4:39:43 PM UT [...] Admission July 04, 2025 6:08:00 PM UTC [facility] [address] [facility] [id number] Discharge July 05, 2025 7:39:00 PM UT DISCHARGED TO HOME OR SELF CARE ENCOUNTER DIAGNOSES Notes information is not christa ilable. Code System Diagnosis Onset Date Diagnosis information is not available. 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 [id number] on July 08, 2025 3:13:33 PM UTC I10 ICD10 ESSENTIAL (PRIMA RY) HYPERTENSION [id number] on July 08, 2025 3:13:33 PM UT E66.9 ICD10 OBESITY, UNSPECIFIED [id number] on July 08, 2025 3:13:33 PM UT F41.9 ICD10 ANXIETY DISORDER, UNSPECIFIE D [id number] on July 08, 2025 3:13:33 PM UT K21.9 ICD10 GASTRO-ESOPHAGEA L REFLUX DISEASE WITHOUT ESOPHAGITIS [id number] on July 08, 2025 3:13:33 PM UTC E78.5 ICD10 HYPERLIPIDEMIA, UNSPECIFIED [id number] on July 08, 2025 3:13:33 PM UT Z87.891 ICD10 PERSONAL HISTORY OF NICOTINE DEPENDENCE [id number] on July 08, 2025 3:13:33 PM UT F39 ICD10 UNSPECIFIED MOOD [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 [id number] on July 08, 2025 3:13:33 PM UT G89.29 ICD10 OTHER CHRONIC PAIN [id number] o n July 08, 2025 3:13:33 PM UTC M54.9 ICD10 DORSALGIA, UNSPECIFIED [id number] on July 08, 2025 3:13:33 PM UTC F32.A ICD10 DEPRESSION, UNSPECIFIED [id number] on July 08, 2025 3:13:33 PM UT A49.01 ICD10 METHICILLIN SUSC EPTIBLE STAPHYLOCOCCUS AUREUS INFECTION, UNSPECIFIED SITE [id number] on July 08, 2025 3:13:33 PM UTC Z68.39 ICD10 BODY MASS INDEX [BMI] 39.0-39.9, ADULT [id number] on July 08, 2025 3:13:33 PM UTC CARE TEAM Care Rn Heart Role TANYA PICHARDO Admitting MILAGRO PEÑA Primary Attending TANYA PICHARDO Consulting MILAGRO PEÑA Consulting LANDON GARCIA Consulting SHARMIN WHITAKER Primary Care TANYA PICHARDO Surgeon HOSPITAL DISCHARGE INSTRUCTION DISCHARGE INSTRUCTION Encounter [id number] Admit Date July 04, 2025 6: 08:00 PM UTC Discharge Date July 05, 2025 7: 39:00 PM UT PATIENT EDUCATION SUMMARY Patient/Visit Information: Patient Name: ISATU YANEZ Diag: Attending Caregiver: MARIANA HUMPHREY Discharge Instruction Sheets Provided: Medication Side Effects Suicide - Managing your Feelings Dr. Pichardo Spinal Cord Stimulator Fall Prevention in Hospitals and in the Home Anesthesia, [facility] DC Instructions After BEFAST-Stroke Warning Signs Discharge Information [facility] - Medication Management KYNECT- HELP Chronic Back Pain, Skhg-kr-Xchu Patient Instructions: Followup Appointments/Instructions: CONSULTATION NOTE DISCHARGE SUMMARY NOTE DISCHARGE SUMMARY NOTE Note Title Dr. Garcia Infusion Orders for Home Health Date Of Service July 05, 2025 12 :18:23 PM UT Created By [id number] on July 05, 2025 12:18:23 PM UTC Signed By DAVON on July 05, 2025 12:19:30 PM [facility] Dr. Garcia Office Informati on [facility] Infectious Disease LANDON GARCIA MD [address] [place] [address], [address] [place] [address] Diagnosis Spinal stimulator infection Antibiotic dose, frequency, and duration Daptomycin 1000 mg intravenously Q 24 hours through 08/15/24. Weekly labs to be drawn and faxed weekly to Dr. Garcia at [phone] Total CK, CRP, ESR, CMP, CBC PICC line dressing weekly Home health for PICC line dressing changes (weekly) and IV antibiotic instructions. THANH Kit THANH kit to be supplied to patient (home health instruct on use) Electronically signed by JOSE DAMON on 0719 PROGRESS NOTE CARE TEAM CARE pathology laboratory aides teacher Role on Team Location Telecom Status Start Date End Mick e Updated By MARINO DAMON Surgeon [address] [place] [address], [phone] normal July 05, 2025 6:00:00 AM UTC July 05, 2025 7:39:00 PM UTC [id number] on July 08, 2025 3:14:00 PM UTC MARIANA ISMAEEL PHY Consulting [address] [place], [address] normal July 04, 2025 5:54:31 PM UTC July 05, 2025 7:39:00 PM UTC [id number] on July 08, 2025 3:14:00 PM UTC JOSE Stephen PHY Consulting [address] [facility] [address], [place], [address] normal July 03, 2025 6:55:39 PM UTC July 05, 2025 7:39:00 PM UTC [id number] on July 08, 2025 3:14:00 PM UTC MARIANA ISSOLANGEL PHY Attending [address] [place] [address], [address] normal July 03, 2025 6:53:21 PM UTC July 04, 2025 5:00:00 AM UTC [id number] on July 08, 2025 3:14:00 PM UTC PICHARDO TANYA PHY Consulting [address] [facility], [place], [address] normal July 03, 2025 6:11:50 PM UTC July 05, 2025 7:39:00 PM UTC [id number] on July 08, 2025 3:14:00 PM UTC SHERMAN Mendoza PCP [address] [facility] , [place], [address] normal June 17, 2025 7:33:53 PM UTC July 04, 2025 6:08:26 PM UTC [id number] on July 08, 2025 3:14:00 PM UTC PICHARDO TANYA PHY Attending [address] [place], [address] normal June 17, 2025 7:33:53 PM UTC July 03, 2025 6:53:21 PM UTC [id number] on July 08, 2025 3:14:00 PM UTC PICHARDO TANYA PHY Admitting [address] [place], [address] normal June 17, 2025 7:33:53 PM UTC July 04, 2025 5:00:00 AM [facility] [id number] on July 08, 2025 3:14:00 PM [facility] INSURANCE PROVIDERS INSURANCE PROVIDER Coverage Status - Effective Date Coverage Type Payor Plan Order Relationship To Subscriber Insurance Plan No Insurance Plan 2027-07-18 M PRIMARY [id number] MEDICARE 2027-07-18 C SECONDARY [id number] [facility]
--- OUTSIDE RECORDS SUMMARY | 2025-07-10 10:04 | XMS_ITS | Encounter Summary ---
Author Organization [employer] ([place], [place], [place], [place], [place]) Address [address] [place] [address] Care Team Providers Care Electronic Drafter Name Role Phone Maya Torres Reji BELCHER Primary Care Provider +1- [phone] Encounter Details Date Type Department Care Team (Late st Contact Info) Description 10/27/2020 Transcribed Document [facility] [place] [address] [place] [address] ProviderJean MD [address] [place] [address] Social History Tobacco Use Types [...] on filedocumented in this encounter Care Teams Electronic Drafter Relationship Specialty Start Date End Date Maya Torres, MOLDED PARTS INSPECTOR [address] [phone] PCP - General Family Medicine 08/27/22 documented as of this encounter
--- OUTSIDE RECORDS SUMMARY | 2025-07-10 10:04 | XMS_ITS | Clinical Summary ---
Author Organization [employer] ([place], [place], [place], [place], [place]) Address [address] [place] [address] Care Team Providers Care Ship'S Master Name Role Phone Maya Torres APRN Primary Care Provider +1- [phone] Allergies No known active allergies Medications traZODone [...] 04/24/2019, 2017 Insurance MEDICARE PART A B [facility] Care Teams Ship'S Master Relationship Specialty Start Date End Date Maya Torres, MOTORCYCLE DELIVERY DRIVER [address] [phone] PCP - General Family Medicine 08/27/22
--- OUTSIDE RECORDS SUMMARY | 2025-07-10 10:04 | XMS_ITS | Encounter Summary ---
Author Organization [employer] ([place], [place], [place], [place], [place]) Address [address] [place] [address] Care Team Providers Care Personal Injury Law Specialist Name Role Phone Maya Torres Reji BELCHER Primary Care Provider +1- [phone] Encounter Details Date Type Department Care Team (Late st Contact Info) Description 10/27/2020 Transcribed Document [facility] [place] [address] [place] [address] ProviderJean MD [address] [place] [address] Social History Tobacco Use Types [...] Sawant MD - 10/27/2020 6:36 PM CDT [facility] [place], [place] [id number] ISATU MENDIETA :1950 Visit Time:10/27/2020 Your Visit [...] to 3 days Where: [place] [address] [facility] (1) Allergies No Known Medication Allergies [...] 24HR 55 mcg/ inh nasal spray) 1 [place](s) Nasal Two Times A Day The home [...] and 14.9 ) ANC #: 12 K/uL [place] Percent Man: 2 % -- Normal range [...] ) Urine Bilirubin Dipstick: Negative Urine Specific [place]: 1.006 -- Normal range between ( 1.005 [...] or lying down. General instructions ??? Take ynbm-hro-rhxghuf and prescription medicines only as told by [...] compression, and elevation. You may be given vzma-sol-uqffntg medicines for pain. ??? Contact a health [...] provider. Document Revised: 02/22/2019 Document Reviewed: 02/22/2019 [employer] Patient Education ?? 2020 [employer]. Emergency Awareness and Preventative Care STROKE is [...] Assistance with quitting is available by contacting 3-764-FVUK-NOW. This is a free resource providing counseling, [...] was given the opportunity to ask questions. Patient/Sheet Metal Shop Helper Name: Patient/Sheet Metal Shop Helper Signature: Relationship to Patient: Clinician/Hospital Sheet Metal Shop Helper Signature: Please Provide a Telephone Number Where You Can Be Reached: Is it Permissible To Leave a Message? Date: documented in this encounter Plan of Treatment Not on file documented as of this encounter Visit Diagnoses Not on filedocumented in this encounter Care Teams Personal Injury Law Specialist Relationship Specialty Start Date End Date Maya Torres, SIMI [address] [phone] PCP - General Family Medicine 08/27/22 documented as of this encounter
--- OUTSIDE RECORDS SUMMARY | 2025-07-10 10:04 | XMS_ITS | Encounter Summary ---
Author Organization [employer] ([place], [place], [place], [place], [place]) Address [address] [place] [address] Care Team Providers Care Morgue Keeper Name Role Phone Maya Torres APRN Primary Care Provider +1- [phone] Encounter Details Date Type Department Care Team (Late st Contact Info) Description 10/30/2020 Transcribed Document [facility] [place] [facility] [place] [address] ProviderJean MD [address] [place] [address] Social History Tobacco Use Types [...] on filedocumented in this encounter Care Teams Morgue Keeper Relationship Specialty Start Date End Date Maya Torres APRN [address] [facility] [address] [place] [address] PCP - General Family Medicine 08/27/22 documented as of this encounter
--- OUTSIDE RECORDS SUMMARY | 2025-07-10 10:04 | XMS_ITS | Encounter Summary ---
Author Organization [employer] ([place], [place], [place], [place], [place]) Address [address] [place] [address] Care Team Providers Care Natural Resources Professor Name Role Phone Maya Torres Reji BELCHER Primary Care Provider +1- [phone] Encounter Details Date Type Department Care Team (Late st Contact Info) Description 10/27/2020 Transcribed Document [facility] [place] Medicine [facility] [place] [address] ProviderJean MD [address] [place] [address] Social History Tobacco Use Types [...] 12:04 EDT by Alina Easley Flex Team child support case officer Triage Across the Room Chief Complaint : pt here for abn bruising to lower abd ,states tore a muscle last week, had FU but not any better, states no blood thinners, pt c/o fullnes to abd, Triage Date/Time : 10/27/2020 12:04 EDT Alina Easley Flex Team Rn - 10/27/2020 12:04 EDT DCP GENERIC CODE Tracking Acuity : 2 - Emergent Tracking Group : [facility] ED Ailna Easley Flex Team Rn - 10/27/2020 12:04 EDT Mode of Arrival : Ambulatory Transported to ED by : Private vehicle To Room Via : Wheelchair Accompanied By : Spouse ED Vital Signs : Document Height & Weight : Document ED Allergies : Document ED Reason for Visit : Document Tetanus Immunization : Less than 5 years Health And Wellness Coordinator Needed : No Alina Easley Flex Team [...] Problems(Active) At risk for sleep apnea (IMO :33331100 ) Name of Problem: At risk for sleep apnea ; Recorder: SYSTEM, SYSTEM; Confirmation: Confirmed ; Classification: Medical ; Code: [id number] ; Last Updated: 06/16/2018 8:18 EST ; Life Cycle Date: 06/16/2018 ; Life Cycle Status: Active ; Vocabulary: IMO Enlarged prostate (SNOMED CT :726072704 ) Name of Problem: Enlarged prostate ; Recorder: Shavonne Jimenez RN; Confirmation: Confirmed ; Classification: Medical ; Code: [id number] ; Contributor System: PowerChart ; Last Updated: 06/16/2018 8:22 EST ; Life Cycle Date: 06/16/2018 ; Life Cycle Status: Active ; Vocabulary: SNOMED CT Hypertension (SNOMED CT :5453534629 ) Name of Problem: Hypertension ; Recorder: Shavonne Jimenez RN; Confirmation: Confirmed ; Classification: Medical ; Code: [id number] ; Contributor System: PowerChart ; Last Updated: 06/16/2018 8:21 EST ; Life Cycle Date: 06/16/2018 ; Life Cycle Status: Active ; Vocabulary: SNOMED CT Seasonal allergies (SNOMED CT :1225905396 ) Name of Problem: Seasonal allergies ; Recorder: Shavonne Jimenez RN; Confirmation: Confirmed ; Classification: Medical ; Code: [id number] ; Contributor System: Aware LabsChart ; Last Updated: 06/16/2018 8:22 EST ; Life Cycle Date: 06/16/2018 ; Life Cycle Status: Active ; Vocabulary: SNOMED CT Diagnoses(Active) Medical screening exam Date: 10/27/2020 ; Diagnosis Type: Reason For Visit ; Confirmation: Complaint of ; Clinical Dx: Medical screening exam ; Classification: Medical ; Clinical Service: Non-Specified ; Code: PNED ; Probability: 0 ; Diagnosis Code: [id number] ED Height and Weight Height Source : Stated Height Entry Format : [place] Height, Feet : 5 ft(Converted to: 152 cm, 60 Inch) Height, Inches : 8 Inch(Converted to: 0 ft 8 Inch, 20.32 cm) Clinical Height : 172.72 cm Weight Source, ED : Critical estimated dosing weight Weight Entry Format : [place] Weight, Pounds : 250 lb Clinical Dosing Weight : 113.64 kg Body Surface Area (BSA) : 2.25 m2 Body Mass Index : 38.1 kg/m2 (HI) [place] Body Weight (IBW) : 67.45 kg Alina [...] on filedocumented in this encounter Care Teams Natural Resources Professor Relationship Specialty Start Date End Date Maya Torres, TENNIS NET MAKER [address] [phone] PCP - General Family Medicine 08/27/22 documented as of this encounter
--- OUTSIDE RECORDS SUMMARY | 2025-07-10 10:04 | XMS_ITS | Encounter Summary ---
Author Organization [employer] ([place], [place], [place], [place], [place]) Address [address] [place] [address] Care Team Providers Care Property Damage Claims Adjustor Name Role Phone Maya Torres APRN Primary Care Provider +1- [phone] Encounter Details Date Type Department Care Team (Late st Contact Info) Description 10/27/2020 Transcribed Document [facility] [place] Family Medicine [address] [place] [address] ProviderJean MD [address] [place] [address] Social History Tobacco Use Types [...] 10/27/2020 6:32 PM CDT Electronically signed by [facility] Conversion Special Agent In Charge Cerner at 11/04/2022 3:28 PM CDT documented in this encounter Plan of Treatment Not on file documented as of this encounter Visit Diagnoses Not on filedocumented in this encounter Care Teams Property Damage Claims Adjustor Relationship Specialty Start Date End Date Maya Torres APRN [address] [facility] [address] [place] [address] PCP - General Family Medicine 08/27/22 documented as of this encounter
--- OUTSIDE RECORDS SUMMARY | 2025-07-10 10:04 | XMS_ITS | Referral Summary ---
Author Organization [employer] ([place], [place], [place], [place], [place]) Address [address] [place] [address] Care Team Providers Care Special Educator Name Role Phone Maya Torres APRN Primary Care Provider +1- [phone] Allergies No known active allergies Medications traZODone [...] Date Jan rded Speak language other than Japanese at home Not on file 08/04/2023 Want [...] on file Insurance [facility] Care Teams Special Educator Relationship Specialty Start Date End Date Maya Torres, DERRICKMAN HELPER [address] [phone] PCP - General Family Medicine 08/27/22
--- OUTSIDE RECORDS SUMMARY | 2025-07-10 10:04 | XMS_ITS | Encounter Summary ---
Author Organization [employer] ([place], [place], [place], [place], [place]) Address [address] [place] [address] Care Team Providers Care Field Foreman Name Role Phone Maya Torres Reji BELCHER Primary Care Provider +1- [phone] Encounter Details Date Type Department Care Team (Late st Contact Info) Description 10/27/2020 Transcribed Document [facility] [place] [facility] [place] [address] ProviderJean MD [address] [place] [address] Social History Tobacco Use Types [...] on filedocumented in this encounter Care Teams Field Foreman Relationship Specialty Start Date End Date Maya Torres, STEAM TURBINE ASSEMBLER [address] [phone] PCP - General Family Medicine 08/27/22 documented as of this encounter
--- OUTSIDE RECORDS SUMMARY | 2025-07-10 10:04 | XMS_ITS | Encounter Summary ---
Author Organization [employer] ([place], [place], [place], [place], [place]) Address [address] [place] [address] Care Team Providers Care Wrister Name Role Phone Maya Torres SIMI Primary Care Provider +1- [phone] Encounter Details Date Type Department Care Team (Late st Contact Info) Description 10/27/2020 Transcribed Document [facility] [place] Medicine [facility] [place] [address] ProviderJean MD [address] [place] [id number] Social History Tobacco Use Types Packs/Day Years [...] EDT Height Source Stated Height Entry Format [place] Height/Length, [place] ISLANDER (ft) 5 ft Height/Length [place] ISLANDER 8 Inch CLINICALHEIGHT 172.72 cm Keymar Body Weight 67.45 kg Weight Source, ED Critical estimated dosing weight Weight Entry Format [place] Weight Mauritian lb 250 lb CLINICALWEIGHT 113.64 kg Body [...] Color Yellow Urine Appearance Clear Urine Specific [place] 1.006 Urine pH Dipstick 6.5 Urine Leukocyte [...] % LOW ALYC # 1 K/uL NA [place] Percent Man 2 % LOW Eos Percent Man 1 % Baso Percent Man 1 % Myelo Percent Man 2 % HI RBC Morphology Normal Platelet Ct Estimate Adequate Slide Review Add Diff Man PT 9.9 Second(s) INR 0.9 PTT 25.2 Second(s) Procalcitonin <0.25 ng/mL SARS-CoV-2 (COVID19 PCR) Negative . Radiology results: Radiology Results (Last 48 hours) [id number] -- 10/27/2020 11:59 CT Abdomen Pelvis W [...] on filedocumented in this encounter Care Teams Wrister Relationship Specialty Start Date End Date Maya Torres, EDITORIAL PROJECT MANAGER [address] [phone] PCP - General Family Medicine 08/27/22 documented as of this encounter
--- OUTSIDE RECORDS SUMMARY | 2025-07-10 10:04 | XMS_ITS | Encounter Summary ---
Author Organization [employer] ([place], [place], [place], [place], [place]) Address [address] [place] [address] Care Team Providers Care Safety Council Director Name Role Phone Maya Torres Reji BELCHER Primary Care Provider +1- [phone] Encounter Details Date Type Department Care Team (Late st Contact Info) Description 10/27/2020 Transcribed Document [facility] [place] Family Medicine [address] [place] [address] ProviderJean MD [address] [place], [place] [id number] Social History Tobacco Use Types Packs/Day Years Used Date Smoking Tobacco: Never Assessed Sex and Gender Information Value Date Recorded Sex Assigned at Not on file Legal Sex Male 5:19 PM CDT Gender Identity Not on file Sexual Orientation Not on file documented as of this encounter Miscellaneous Notes * [employer] Conversion Note - Jean ProviderMD - 10/27/2020 11:59 AM CDT [place] Suicide Severity Rating Scale (C-SSRS) Entered On: 10/27/2020 12:32 EDT Performed On: 10/27/2020 12:21 EDT by Jasmin Thornton RN [place] Suicide Severity Rating Scale (C-SSRS) CSSRS Past [...] on filedocumented in this encounter Care Teams Safety Council Director Relationship Specialty Start Date End Date Maya Torres, LEGAL COMPLIANCE OFFICER [address] [phone] PCP - General Family Medicine 08/27/22 documented as of this encounter
--- OUTSIDE RECORDS SUMMARY | 2025-07-10 10:04 | XMS_ITS | Clinical Summary ---
Author Organization [facility] Address [address] [place] [address] Care Team Providers Care Web Database Developer Name Role Phone Unavailable Primary Care Provider [...]
--- OUTSIDE RECORDS SUMMARY | 2025-07-10 10:04 | XMS_ITS | Encounter Summary ---
Author Organization [employer] ([place], [place], [place], [place], [place]) Address [address] [place] [address] Care Team Providers Care Creative Designer Name Role Phone Maya Torres Reji BELCHER Primary Care Provider +1- [phone] Encounter Details Date Type Department Care Team (Late st Contact Info) Description 10/27/2020 Transcribed Document [facility] [place] Family Medicine [address] [place] [address] ProviderJean MD [address] [place] [address] Social History Tobacco Use Types [...] EDT Performed On: 10/27/2020 12:36 EDT by Jasimn Thornton RN Vital Signs ED Temperature Mode : Fahrenheit Blood Pressure Location : Arm, left upper Systolic Blood Pressure : 123 mmHg Diastolic Blood Pressure : 75 mmHg Jasmin Thornton RN - 10/27/2020 12:36 EDT documented in this encounter Plan of Treatment Not on file documented as of this encounter Visit Diagnoses Not on filedocumented in this encounter Care Teams Creative Designer Relationship Specialty Start Date End Date Maya Torres, BARREL ASSEMBLER [address] [phone] PCP - General Family Medicine 08/27/22 documented as of this encounter
--- OUTSIDE RECORDS SUMMARY | 2025-07-10 10:04 | XMS_ITS | Encounter Summary ---
Author Organization [employer] ([place], [place], [place], [place], [place]) Address [address] [place] [address] Care Team Providers Care Elevator Mechanic Apprentice Name Role Phone Maya Torres Reji BELCHER Primary Care Provider +1- [phone] Encounter Details Date Type Department Care Team (Late st Contact Info) Description 10/27/2020 Transcribed Document [facility] [place] [address] ProviderJean MD [address] [place], [place] [address] Social History Tobacco Use Types Packs/Day Years [...] on filedocumented in this encounter Care Teams Elevator Mechanic Apprentice Relationship Specialty Start Date End Date Maya Torres, MANAGEMENT MANAGER [address] [phone] PCP - General Family Medicine 08/27/22 documented as of this encounter
--- OUTSIDE RECORDS SUMMARY | 2025-07-10 10:04 | XMS_ITS | Encounter Summary ---
Author Organization [employer] ([place], [place], [place], [place], [place]) Address [address] [place] [address] Care Team Providers Care Riveter Helper Name Role Phone Maya Torres Reji BELCHER Primary Care Provider +1- [phone] Encounter Details Date Type Department Care Team (Late st Contact Info) Description 10/27/2020 Transcribed Document [facility] [place] Family Medicine [address] [place] [address] ProviderJean MD [address] [place] [address] Social History Tobacco Use Types [...] 10/27/2020 12:55:00 EDT fentaNYL,50mcg IV Push,Left Antecubital [place] Pain Assessment Pain Scale Used : 0-10 [...] on filedocumented in this encounter Care Teams Riveter Helper Relationship Specialty Start Date End Date Maya Torres, ART PREPARATOR [address] [phone] PCP - General Family Medicine 08/27/22 documented as of this encounter
--- OUTSIDE RECORDS SUMMARY | 2025-07-10 10:05 | XMS_ITS | Encounter Summary ---
Author Organization [employer] ([place], [place], [place], [place], [place]) Address [address] [place] [address] Care Team Providers Care Foot Piece Assembler Name Role Phone Maya Torres SIMI Primary Care Provider +1- [phone] Encounter Details Date Type Department Care Team (Late st Contact Info) Description 10/18/2020 Transcribed Document [facility] [facility] [place] [address] [place] [address] ProviderJean MD [address] [place], [place] [address] Social History Tobacco Use Types Packs/Day Years [...] Communication Barrier : None Primary Language : Gambian Any Spiritual/Cultural Needs or Requests : No [...] Dee Ocampo RN - 10/18/2020 19:41 EDT Electronically signed by Becky Tejeda Conversion Database Administration Project Manager Cerner at 11/04/2022 3:29 PM CDT documented in this encounter Plan of Treatment Not on file documented as of this encounter Visit Diagnoses Not on filedocumented in this encounter Care Teams Foot Piece Assembler Relationship Specialty Start Date End Date Maya Torres, ENVIRONMENTAL HEALTH SAFETY MANAGER [address] [phone] PCP - General Family Medicine 08/27/22 documented as of this encounter
--- OUTSIDE RECORDS SUMMARY | 2025-07-10 10:05 | XMS_ITS | Encounter Summary ---
Author Organization [employer] ([place], [place], [place], [place], [place]) Address [address] [place] [address] Care Team Providers Care Typesetting Machine Tender Name Role Phone Maya Torres Reji BELCHER Primary Care Provider +1- [phone] Encounter Details Date Type Department Care Team (Late st Contact Info) Description 10/18/2020 Transcribed Document [facility] [place] Family Medicine [facility] [place] [address] ProviderJean MD [address] [place] [address] Social History Tobacco Use Types Packs/Day Years [...] 10/18/2020 21:39 EDT Electronically signed by [facility] Conversion Rn [employer] Cerner at 11/04/2022 3:31 PM CDT documented in this encounter Plan of Treatment Not on file documented as of this encounter Visit Diagnoses Not on filedocumented in this encounter Care Teams Typesetting Machine Tender Relationship Specialty Start Date End Date Maya Torres, HAY SORTER [address] [phone] PCP - General Family Medicine 08/27/22 documented as of this encounter
--- OUTSIDE RECORDS SUMMARY | 2025-07-10 10:05 | XMS_ITS | Encounter Summary ---
Author Organization [employer] ([place], [place], [place], [place], [place]) Address [address] [place] [address] Care Team Providers Care Managing Consultant Clinical Professor Name Role Phone Maya Torres Reji BELCHER Primary Care Provider +1- [phone] Encounter Details Date Type Department Care Team (Late st Contact Info) Description 10/27/2020 Transcribed Document [facility] [place] Family Medicine [address] [place] [address] ProviderJean MD [address] [place] [address] Social History Tobacco Use Types [...] On: 10/27/2020 12:21 EDT by Jasmin Thornton PAYROLL EXAMINER General-Functional Assess Preferred Communication Mode : Verbal [...] Rhythm : Regular Nail Bed Color : [place] Chest Pain : No Capillary Refill, Left [...] mm Pupil Size, Right : 3 mm [place] Coma Scale Link : Open GCS Jasmin Thornton RN - 10/27/2020 12:21 EDT Diana Coma Diana Best Motor Response : Obey commands Diana Best Verbal Response : Oriented [place] Eye Opening Response : Spontaneous [place] Coma Score : 15 Jasmin Thornton RN - 10/27/2020 12:21 EDT Electronically signed by [facility] Conversion Trim And Burr Operator Cerner at 11/04/2022 3:11 PM CDT documented in this encounter Plan of Treatment Not on file documented as of this encounter Visit Diagnoses Not on filedocumented in this encounter Care Teams Managing Consultant Clinical Professor Relationship Specialty Start Date End Date Maya Torres, CONGRESSIONAL AIDE [address] [phone] PCP - General Family Medicine 08/27/22 documented as of this encounter
--- OUTSIDE RECORDS SUMMARY | 2025-07-10 10:05 | XMS_ITS | Encounter Summary ---
Author Organization [employer] ([place], [place], [place], [place], [place]) Address [address] [place] [address] Care Team Providers Care 1St Pressman Name Role Phone Maya Torres Reji BELCHER Primary Care Provider +1- [phone] Encounter Details Date Type Department Care Team (Late st Contact Info) Description 10/18/2020 Transcribed Document [facility] [place] [facility] [place] [address] ProviderJean MD [address] [place], [place] [id number] Social History Tobacco Use Types Packs/Day Years [...] On: 10/18/2020 19:09 EDT by SUSHMA MARQUEZ, CCNA Triage Across the Room Chief Complaint : [...] : 3 - Urgent Tracking Group : [facility] ED SUSHMA MARQUEZ RN - 10/18/2020 [...] Problems(Active) At risk for sleep apnea (IMO :70152330 ) Name of Problem: At risk for sleep apnea ; Recorder: SYSTEM, SYSTEM; Confirmation: Confirmed ; Classification: Medical ; Code: 15028570 ; Last Updated: 06/16/2018 8:18 EST ; Life Cycle Date: 06/16/2018 ; Life Cycle Status: Active ; Vocabulary: IMO Enlarged prostate (SNOMED CT :794191392 ) Name of Problem: Enlarged prostate ; Recorder: Shavonne Jimenez RN; Confirmation: Confirmed ; Classification: Medical ; Code: 800794618 ; Contributor System: AxialMEDChart ; Last Updated: 06/16/2018 8:22 EST ; Life Cycle Date: 06/16/2018 ; Life Cycle Status: Active ; Vocabulary: SNOMED CT Hypertension (SNOMED CT :3789105430 ) Name of Problem: Hypertension ; Recorder: Shavonne Jimenez RN; Confirmation: Confirmed ; Classification: Medical ; Code: 5371748754 ; Contributor System: AxialMEDChart ; Last Updated: 06/16/2018 8:21 EST ; Life Cycle Date: 06/16/2018 ; Life Cycle Status: Active ; Vocabulary: SNOMED CT Seasonal allergies (SNOMED CT :3340562480 ) Name of Problem: Seasonal allergies ; Recorder: Shavonne Jimenez RN; Confirmation: Confirmed ; Classification: Medical ; Code: 2351047000 ; Contributor System: PowerChart ; Last Updated: 06/16/2018 8:22 EST ; Life Cycle Date: 06/16/2018 ; Life Cycle Status: Active ; Vocabulary: SNOMED CT Diagnoses(Active) Rib/trunk pain-swelling Date: 10/18/2020 ; Diagnosis Type: Reason For Visit ; Confirmation: Complaint of ; Clinical Dx: Rib/trunk pain-swelling ; Classification: Medical ; Clinical Service: Emergency medicine ; Code: PNED ; Probability: 0 ; Diagnosis Code: [id number] ED Height and Weight Height Source : Stated Height Entry Format : [place] Height, Feet : 5 ft(Converted to: 152 cm, 60 Inch) Height, Inches : 8 Inch(Converted to: 0 ft 8 Inch, 20.32 cm) Clinical Height : 172.72 cm Weight Source, ED : Critical estimated dosing weight Weight Entry Format : [place] Weight, Pounds : 240 lb Clinical Dosing Weight : 109.09 kg Body Surface Area (BSA) : 2.21 m2 Body Mass Index : 36.6 kg/m2 (HI) [place] Body Weight (IBW) : 67.45 kg SUSHMA MARQUEZ RN - 10/18/2020 19:09 EDT documented in this encounter Plan of Treatment Not on file documented as of this encounter Visit Diagnoses Not on filedocumented in this encounter Care Teams 1St Pressman Relationship Specialty Start Date End Date Maya Torres, BIT AND SHANK DEPARTMENT SUPERVISOR [address] [phone] PCP - General Family Medicine 08/27/22 documented as of this encounter
--- OUTSIDE RECORDS SUMMARY | 2025-07-10 10:05 | XMS_ITS | Encounter Summary ---
Author Organization [employer] ([place], [place], [place], [place], [place]) Address [address] [place] [address] Care Team Providers Care Rejected Items Clerk Name Role Phone Maya Torres Rjei BELCHER Primary Care Provider +1- [phone] Encounter Details Date Type Department Care Team (Late st Contact Info) Description 10/18/2020 Transcribed Document [facility] [place] Family Medicine [address] [place] [address] ProviderJean MD [address] [place], [place] [id number] Social History Tobacco Use Types Packs/Day Years [...] : Low risk (0) [place] Interventions : [place] precautions for safety used Dee Ocampo, HOLA - 10/18/2020 19:41 EDT Electronically signed by Ileana [facility] Conversion Ethics Instructor Cerner at 11/04/2022 3:34 PM CDT documented in this encounter Plan of Treatment Not on file documented as of this encounter Visit Diagnoses Not on filedocumented in this encounter Care Teams Rejected Items Clerk Relationship Specialty Start Date End Date Maya Torres, EXECUTIVE ADMINISTRATOR [address] [phone] PCP - General Family Medicine 08/27/22 documented as of this encounter
--- OUTSIDE RECORDS SUMMARY | 2025-07-10 10:05 | XMS_ITS | Encounter Summary ---
Author Organization [employer] ([place], [place], [place], [place], [place]) Address [address] [place] [address] Care Team Providers Care Global Engineering Manager Name Role Phone Maya Torres APRN Primary Care Provider +1- [phone] Encounter Details Date Type Department Care Team (Late st Contact Info) Description 10/18/2020 Transcribed Document [facility] [place] Family Medicine [address] [place] [address] ProviderJean MD [address] [place] [address] Social History Tobacco Use Types [...] CDT Electronically signed by [facility] Conversion Steam Pressure Chamber Operator Cerner at 11/04/2022 3:18 PM CDT documented in this encounter Plan of Treatment Not on file documented as of this encounter Visit Diagnoses Not on filedocumented in this encounter Care Teams Global Engineering Manager Relationship Specialty Start Date End Date Maya Torres APRN [address] [facility] [address] [place] [address] PCP - General Family Medicine 08/27/22 documented as of this encounter
--- OUTSIDE RECORDS SUMMARY | 2025-07-10 10:05 | XMS_ITS | Encounter Summary ---
Author Organization [employer] ([place], [place], [place], [place], [place]) Address [address] [place] [address] Care Team Providers Care Beam Carrier Hauler Pusher Name Role Phone Maya Torres Reji BELCHER Primary Care Provider +1- [phone] Encounter Details Date Type Department Care Team (Late st Contact Info) Description 06/16/2018 Transcribed Document [facility] [place] Medicine [facility] [place] [address] ProviderJean MD [address] [place], [place] [address] Social History Tobacco Use Types Packs/Day Years Used Date Smoking Tobacco: Never Assessed Sex and Gender Information Value Date Recorded Sex Assigned at Not on file Legal Sex Male 5:19 PM CDT Gender Identity Not on file Sexual Orientation Not on file documented as of this encounter Miscellaneous Notes * Cerner Conversion Note - Jean Sawant MD - 06/16/2018 8:43 AM ROTATING FIELD ASSEMBLER Patient: ISATU MENDIETA Age: 67 Years Sex: [...] 84 CXR- NAD Electronically signed by Ileana, [facility] Conversion Group Work Program Director Cerner at 11/04/2022 3:24 PM CDT documented in this encounter Plan of Treatment Not on file documented as of this encounter Visit Diagnoses Not on filedocumented in this encounter Care Teams Beam Carrier Hauler Pusher Relationship Specialty Start Date End Date Maya Torres, RETRIMMER [address] [phone] PCP - General Family Medicine 08/27/22 documented as of this encounter
--- OUTSIDE RECORDS SUMMARY | 2025-07-10 10:05 | XMS_ITS | Clinical Summary ---
[facility] Organization [facility] Address [address] [place] [address] Care Team Providers Care Cutter In Name Role Phone Maya Torres Primary Care Provider + [phone] Allergies No known active allergies Medications DULoxetine [...] e 10/30/2023 Family and Community Support Answer Imck e Recorded Help with Day-to-Day Activities Not [...] Completed 10/27/2020 Medical Devices Implanted Type Area Sail Maker Device Identifier Shelf Expiration Date Model / Serial / Lot Ld Stim Precsn Trial Lnr 8contct St/Tp50 - [id number] - [id number] Implanted:Qty : 1 on 10/05/2022 by Jerome Morrissey MD at [facility] Implant N/A: Spine Thoracic [employer] 08/30/2024 [id number] / [id number] / Ld Stim Precsn Trial Lnr 8contct St/Tp50 - [id number] - [id number] Implanted:Qty : 1 on 10/05/2022 by Jerome Morrissey MD at [facility] Implant N/A: Spine Thoracic [employer] 08/26/2024 [id number] / [id number] / Anchr Ld Scs Clikx Ea/St/2 - [id number] Implanted:Qty : 1 on 10/05/2022 by Jerome Morrissey MD at [facility] Implant N/A: Spine Thoracic [employer] 01/06/2024 [id number] / / [id number] Kt Ipg Wavewriter Alpha 16/Contct - [id number] - [id number] Implanted:Qty : 1 on 10/05/2022 by Jerome Morrissey MD at [facility] Implant N/A: Spine Thoracic [employer] [id number] 09/13/2024 [id number] / [id number] Insurance MEDICARE A & B Member Subscriber Plan / Payer (Ef fective 2017-Present) Name:Stephane Mendieta Member ID:[id number] Relation to Subscriber:Self Name:Stephane Mendieta Subscriber ID:[id number] Payer ID:[id number] Group ID:Not on file Type:Not on file Address: [facility] [address] [place] [id number] [facility] Care Teams Cutter In Relationship Specialty Start Date End Date Maya Torres Kaylyn [place] [id number] PCP - General Nurse Practitioner 09/28/22
--- OUTSIDE RECORDS SUMMARY | 2025-07-10 10:05 | XMS_ITS | Patient Health Record ---
Author Organization [facility] Address [address] [facility] [address] [place] [address] Care Team Providers Care Leasing Manager Name Role Phone Jerome Morrissey II Unavailable [phone] Michael COLEMAN -Issa Barry MD Unavailable [phone] Allergies No Known Allergies Reason For Referral [...] Status Risk Notes Problem Chronic pain syndrome (171495609) Chronic pain syndrome (G89.4) Active confirmed Problem Complex regional pain syndrome of lower limb (disorder) (141114547) Complex regional pain syndrome I of unspecified lower limb (G90.529) Active confirmed Problem Cervical spondylosis without myelopathy (262888507) Other spondylosis with radiculopathy, cervical region (M47.22) Active confirmed Problem Cervical spondylosis without myelopathy (586098437) Spondylosis without myelopathy or radiculopathy, cervical region (M47.812) Active confirmed Problem Lumbosacral spondylosis without myelopathy (87622085) Spondylosis without myelopathy or radiculopathy, lumbar region (M47.816) Active confirmed Problem Cervicalgia (72430239) Cervicalgia (M54.2) Active confirmed Problem Post-laminectom y syndrome (99860627) Postlaminectomy syndrome, not elsewhere classified (M96.1) Active confirmed Problem Long-term current use of drug therapy (484742117) 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 marine oil terminal superintendent (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) drug therapy (Z79.899) Active confirmed Problem Lumbar spondylosis (559336149) lumbar spondylosis (M47.816) Active confirmed Vital Signs Heart Rate 80 /min 10/19/2024 Blood pressure diastolic 75 mm Hg 10/19/2024 Height 69 in 10/19/2024 Blood pressure systolic 158 mm Hg 10/19/2024 Weight 250 lbs 10/19/2024 BMI 36.91 kg/m2 10/19/2024 Encounters Encounter Location Date Provider Diagnosis [facility] [address] [place] [address] [place] [address] 10/19/2024 Jerome Morrissey Other assisted (current) drug therapy Z79.899 ; Spondylosis without [...] once again for the long-term. 10/19/2024 Other marine oil terminal superintendent (current) drug therapy (ICD-10 - Z79.899) 04/02/2024 1. Discontinue Comfort 5/325mg QD PRN 2. FU PRn Mr. [...] Test Name Order Date Urine Test ANALYZER 08/16/2022 Urine Test ANALYZER 09/23/2022 Urine Test ANALYZER 10/15/2022 Urine Test ANALYZER 01/03/2024 Urine Test ANALYZER 10/19/2024 Urine Test ANALYZER 05/26/2022 Insurance Providers Payer Name Payer Address Payer Phone Subscriber Number Group Number Insured Name Patient Relationship to Insured Coverage Start Date Coverage End Date [place] [address] [place] [address] [id number] Stephane Mendieta Self - patient is the insured 8 [employer] Medicare Supplement [address] [place] [phone] [id number] Stephane Mendieta Self - patient is the insured 8 Medical (General) History Medical History History ICD Code anxiety / Managed by PCP Surgical History Surgery Date(Month/Year) right knee replacement Back surgery / Dr. Rodriguez 09/2019
--- OUTSIDE RECORDS SUMMARY | 2025-07-10 10:05 | XMS_ITS | Encounter Summary ---
Author Organization [employer] ([place], [place], [place], [place], [place]) Address [address] [place] [address] Care Team Providers Care Gyroscopic Instrument Tester Name Role Phone Maya Torres Reji BELCHER Primary Care Provider +1- [phone] Encounter Details Date Type Department Care Team (Late st Contact Info) Description 10/18/2020 Transcribed Document [facility] [place] Family Medicine [facility] [place] [address] ProviderJean MD [address] [place] [address] Social History Tobacco Use Types [...] MD - 10/18/2020 9:38 PM CDT [facility] [place], [place] [id number] ISATU MENDIETA :1950 Visit Time:10/18/2020 Your Visit [...] to ED if symptoms worsen. Where: [address] [facility] [address] [place] [address] Business (1) Follow Up with JACKIE LEONARD When Within 2 to 3 days Allergies No Known Medication Allergies Immunizations This Visit No Immunizations Found Medications What How Much When Instructions Next Dose codeine-guaifenesin (codeine-guaifenesin 6.3 mg-100 mg/ 5 mL oral liquid) 7.5 Milliliter(s) Oral Every 6 Hours as needed for for cough Pickup at [facility] dextromethorphan-guaifenesin (dextromethorphan-guaifenesin 5 mg-100 [...] 24HR 55 mcg/ inh nasal spray) 1 Polk(s) Nasal Two Times A Day Pharmacy Information [facility]: [address] [place], [place] [id number] [phone] The home medications listed are only as [...] safe for you. General instructions ??? Take gikv-fmo-tlastqo and prescription medicines only as told by [...] Reviewed: 01/04/2019 Vince Patient Education ?? 2020 iPositioning. Emergency Awareness and Preventative Care STROKE is [...] Assistance with quitting is available by contacting 5-699-DUCL-NOW. This is a free resource providing counseling, [...] was given the opportunity to ask questions. Patient/B2B Appointment Setter Name: Patient/B2B Appointment Setter Signature: Relationship to Patient: Clinician/Hospital B2B Appointment Setter Signature: Please Provide a Telephone Number Where You Can Be Reached: Is it Permissible To Leave a Message? Date: documented in this encounter Plan of Treatment Not on file documented as of this encounter Visit Diagnoses Not on filedocumented in this encounter Care Teams Gyroscopic Instrument Tester Relationship Specialty Start Date End Date Maya Torres, SIMI [address] [phone] PCP - General Family Medicine 08/27/22 documented as of this encounter
--- OUTSIDE RECORDS SUMMARY | 2025-07-10 10:05 | XMS_ITS | Encounter Summary ---
Author Organization [employer] ([place], [place], [place], [place], [place]) Address [address] [place] [address] Care Team Providers Care Vascular Tech Name Role Phone Maya Torres Reji BELCHER Primary Care Provider +1- [phone] Encounter Details Date Type Department Care Team (Late st Contact Info) Description 10/18/2020 Transcribed Document [facility] [place] [address] [place] [address] ProviderJean MD [address] [place], [place] [address] Social History Tobacco Use Types Packs/Day Years Used Date Smoking Tobacco: Never Assessed Sex and Gender Information Value Date Recorded Sex Assigned at Not on file Legal Sex Male 5:19 PM CDT Gender Identity Not on file Sexual Orientation Not on file documented as of this encounter Miscellaneous Notes * Cerner Conversion Note - Jean ProviderMD - 10/18/2020 7:05 PM CDT [place] Suicide Severity Rating Scale (C-SSRS) Entered On: 10/18/2020 19:42 EDT Performed On: 10/18/2020 19:41 EDT by Dee Ocampo RN [place] Suicide Severity Rating Scale (C-SSRS) CSSRS Past [...] on filedocumented in this encounter Care Teams Vascular Tech Relationship Specialty Start Date End Date Maya Torres, AUTO TECH [address] [phone] PCP - General Family Medicine 08/27/22 documented as of this encounter
[2025-07-10] MEDS: DAPTOmycin 1,000 MG in 0.9 % SODIUM CHLORIDE 50 ML 100 MG IV (11:11)
[2025-07-10 11:23] VITALS: BMI 38.0
== END 2025-07-10 23:59 | disposition home or self-care (01) ==
LOC: INF 10:02
PROVIDERS: PCP Nurse Practitioner; Visit Provider Internal Medicine Infectious Disease
DX: T85.73 Infection and inflammatory reaction due to nervous system devices, implants and graft (principal)
CPT/HCPCS: 96365; J0878

== ENCOUNTER 2025-07-11 10:02 | Outpatient (CLI) | payer MEDICARE, OTHER, SELFPAY ==
--- OUTSIDE RECORDS SUMMARY | 2022-12-01 11:56 | XMS_ITS | Encounter Summary ---
[facility] [address] [place] [address] Care Team Providers Care Physical Science Professor Name Role Phone Maya Torres Primary Care Provider + [phone] Encounter Details Date Type Department Care Team (Late st Contact Info) Description 12/01/2022 12:56 PM EDT Hospital Encounter [facility] PULMONARY & CRITICAL CARE MEDICINE [facility] [place] [address] Social History Tobacco Use Types [...] Narrative 12/01/2022 1:31 PM EDT Stephane Annton [id number] 12/01/2022 Chest X-Ray PA & Lateral Indication: [...] on filedocumented in this encounter Care Teams Physical Science Professor Relationship Specialty Start Date End Date Maya Torres [address] [place] [address] PCP - General Nurse Practitioner 09/28/22 documented as of this encounter
--- OUTSIDE RECORDS SUMMARY | 2024-04-27 06:30 | XMS_ITS ---
Author Organization [facility] Address [address] [place] [address] Care Team Providers Care Screw Machine Setter Name Role Phone Jerome Morrissey II Unavailable Michael COLEMAN -Pramod Velazquez MD, Issa Unavailable [phone] Allergies No Known Allergies REASON FOR VISIT [...] Diagnosis [facility] [address] [place] [address] 04/27/2024 Jerome Morrissey Other fpc (current) drug therapy Z79.899 ; Spondylosis without myelopathy or radiculopathy, cervical region M47.812 ; Postlaminectomy syndrome, not elsewhere classified M96.1 and Spondylosis without myelopathy or radiculopathy, lumbar region M47.816 Assessments Encounter Date Diagnosis (ICD Code) Assessment Notes Treatment Notes Treatment Clinical Notes Section Notes 04/27/2024 Other tank terminal gauger (current) drug therapy (ICD-10 - Z79.899) 04/02/2024 1. Discontinue [place] 5/325mg QD PRN 2. FU 1 month with [facility] 3. [facility] [facility] to change SCS settings 4. [...] no relief with TFESI LT in January. [employer] rep in the room changing SCS settings. [...] no relief with TFESI LT in January. [employer] rep in the room changing SCS settings. [...] no relief with TFESI LT in January. [employer] rep in the room changing SCS settings. [...] no relief with TFESI LT in January. [employer] rep in the room changing SCS settings. [...] Of Treatment Treatment Notes Assessment Notes Other fpc (current) drug therapy 04/02/2024 1. Discontinue [place] 5/325mg QD PRN 2. FU 1 month with [facility] 3. [employer] rep to change SCS settings 4. S/P [...] Stephane YANEZ ADOB: 3 (74 yo M)Acc No.[id number]:04/27/2024 FollowUP Patient: Stephane RODRIGUEZ Provider: Reji Morrissey II, M.D. :1950 A ge:73 Y S ex:Male Date:04/27/2024 Address:[address] [place], [place] [id number] Subjective: * Chief Complaints: * 1 . [...] relief for 1 hour 0 08/09/2022SCS Trial [place] 80% relief for 1 week 0 02/13/2024#1 [...] * Vitals: * Examination: G eneral Examination: Nurse/Pipe Setter: Phill McnamaraMA-Shamar)Madeleine 04/02/2024 9:48:48 AM > . [...] scars. Assessment: * Assessment: 1. O ther tank terminal gauger (current) drug therapy - Z79.899 [...] no relief with TFESI LT in January. [employer] rep in the room changing SCS settings. [...] signature of Raymon Morrissey II, M.D. on 07/11/2025 at 09:08 AM BAT CARRIER Sign off status: Pending * Provider: Reji Morrissey II, M.D. Date: 1 Generated for Irwin spears/Davon/Eric on: 1 09/11/2024 09:08 AM BAT CARRIER History and Physical Notes * HPI (History [...] to advanced foraminal encroachment PHYSICAL/AQUA THERAPY/DME/OTHER HISTORY: 9954-9667 Chiropractic therapy program complete 06/2023-Present: Patient continues a prescribed home exercise program 3-5 times per week which includes walking, lumbar stretches, and alternating leg lifts PERTINENT SURGICAL EVALUATIONS/SPECIALIST CONSULTS 04/2022 - Dr. Rodriguez - No surgery recommened, recommends SCS trial PREVIOUS INJECTION\PROCEDURE HISTORY: 08/21/2019 #1 SIJI RT 20% relief for 1 hour 08/09/2022 SCS Trial [place] 80% relief for 1 week 02/13/2024 #1 [...] wi th an antalgic gait, pitched forward Nurse/Pipe Setter: Mendez SHARMA-Shamar)Francisco J 04/02/2024 9:48:48 AM > [...]
--- OUTSIDE RECORDS SUMMARY | 2024-05-28 10:30 | XMS_ITS ---
Author Organization [facility] Address [address] [place] [address] Care Team Providers Care Attending Ambulatory Care Name Role Phone Jerome Morrissey II Unavailable [phone] Michael COLEMAN -Pramod Velazquez MD, Issa Unavailable [phone] Allergies No Known Allergies REASON FOR VISIT [...] Diagnosis [facility] [address] [address] 05/28/2024 Jerome Morrissey Other truck terminal manager (current) drug therapy Z79.899 ; Spondylosis without myelopathy or radiculopathy, cervical region M47.812 ; Postlaminectomy syndrome, not elsewhere classified M96.1 and Spondylosis without myelopathy or radiculopathy, lumbar region M47.816 Assessments Encounter Date Diagnosis (ICD Code) Assessment Notes Treatment Notes Treatment Clinical Notes Section Notes 05/28/2024 Other fpc (current) drug therapy (ICD-10 - Z79.899) 04/02/2024 1. Discontinue [place] 5/325mg QD PRN 2. FU 1 month with [facility] 3. [facility] rep to change SCS settings 4. S/P [...] no relief with TFESI LT in January. [facility] rep in the room changing SCS settings. [...] no relief with TFESI LT in January. [facility] rep in the room changing SCS settings. [...] no relief with TFESI LT in January. [employer] in the room changing SCS settings. Patient [...] no relief with TFESI LT in January. [facility] rep in the room changing SCS settings. [...] Of Treatment Treatment Notes Assessment Notes Other truck terminal manager (current) drug therapy 04/02/2024 1. Discontinue [place] 5/325mg QD PRN 2. FU 1 month with [facility] 3. [facility] rep to change SCS settings 4. S/P [...] Stephane MENDIETA ADOB: 3 (74 yo M)Acc No.[id number]:05/28/2024 Progress NOte Patient: Stephane RODRIGUEZ Provider: Reji Morrissey II, M.D. :1950 A ge:73 Y S ex:Male Date:05/28/2024 Address:[address] [place] [phone] Subjective: * Chief Complaints: * 1 . [...] for 1 hour 0 08/09/2022 SCS Trial Nvduar85% relief for 1 week 0 02/08/2024- #1 [...] * Vitals: * Examination: G eneral Examination: Nurse/Tax Accounting Assistant: Madeleine Gonzalez (MA-Lex) 04/02/2024 9:48:48 AM > [...] scars. Assessment: * Assessment: 1. O ther fpc (current) drug therapy - Z79.899 (Primary) 2 [...] no relief with TFESI LT in January. [facility] rep in the room changing SCS settings. [...] Raymon Morrissey II, M.D. on 07/11/2025 at 09:09 AM SPOT BILLING CLERK Sign off status: Pending * Provider: Reji Morrissey II, M.D. Date: 07/28/2023 Generated for Irwin spears/Davon/Nicholasransmitting on: 09/11/2024 09:09 AM SPOT BILLING CLERK History and Physical Notes * HPI (History [...] to advanced foraminal encroachment PHYSICAL/AQUA THERAPY/DME/OTHER HISTORY: 7659-5022 Chiropractic therapy program complete 06/2023-Present: Patient continues a prescribed home exercise program 3-5 times per week which includes walking, lumbar stretches, and alternating leg lifts PERTINENT SURGICAL EVALUATIONS/SPECIALIST CONSULTS 04/2022 - Dr. Rodriguez - No surgery recommened, recommends SCS trial PREVIOUS INJECTION\PROCEDURE HISTORY: 08/21/2019 #1 SIJAYLYN RT 20% relief for 1 hour 08/09/2022 SCS Trial [place] 80% relief for 1 week 02/08/2024 - [...] wi th an antalgic gait, pitched forward Nurse/Tax Accounting Assistant: Mendez (ALEJANDRINA-Shamar)Francisco J 04/02/2024 9:48:48 AM > [...]
[2025-07-11 10:02] VITALS: BP 169/109; PULSE 72; RESP 18; TEMP 36.5; O2SAT 92
--- OUTSIDE RECORDS SUMMARY | 2025-07-11 10:08 | XMS_ITS | Encounter Summary ---
Author Organization [employer] ([place], [place], [place], [place], [place]) Address [address] [place] [address] Care Team Providers Care Meteorological Engineer Name Role Phone Maya Torres Reji BELCHER Primary Care Provider +1- [phone] Encounter Details Date Type Department Care Team (Late st Contact Info) Description 10/27/2020 Transcribed Document [facility] [place] [facility] [place] [address] ProviderJean MD [address] [place] [address] Social History Tobacco Use Types [...] 12:04 EDT by Alina Easley Flex Team oil field rig builder Triage Across the Room Chief Complaint : pt here for abn bruising to lower abd ,states tore a muscle last week, had FU but not any better, states no blood thinners, pt c/o fullnes to abd, Triage Date/Time : 10/27/2020 12:04 EDT Alina Easley Flex Team Rn - 10/27/2020 12:04 EDT DCP GENERIC CODE Tracking Acuity : 2 - Emergent Tracking Group : [facility] ED Alina Easley Flex Team Rn - 10/27/2020 12:04 EDT Mode of Arrival : Ambulatory Transported to ED by : Private vehicle To Room Via : Wheelchair Accompanied By : Spouse ED Vital Signs : Document Height & Weight : Document ED Allergies : Document ED Reason for Visit : Document Tetanus Immunization : Less than 5 years Pipe Fitter Ammonia Needed : No Alina Easley Flex Team [...] Problems(Active) At risk for sleep apnea (IMO :45097938 ) Name of Problem: At risk for sleep apnea ; Recorder: SYSTEM, SYSTEM; Confirmation: Confirmed ; Classification: Medical ; Code: 34198668 ; Last Updated: 06/16/2018 8:18 EST ; Life Cycle Date: 06/16/2018 ; Life Cycle Status: Active ; Vocabulary: IMO Enlarged prostate (SNOMED CT :765115966 ) Name of Problem: Enlarged prostate ; Recorder: Shavonne Jimenez RN; Confirmation: Confirmed ; Classification: Medical ; Code: 072607057 ; Contributor System: PowerChart ; Last Updated: 06/16/2018 8:22 EST ; Life Cycle Date: 06/16/2018 ; Life Cycle Status: Active ; Vocabulary: SNOMED CT Hypertension (SNOMED CT :1736359620 ) Name of Problem: Hypertension ; Recorder: Shavonne Jimenez RN; Confirmation: Confirmed ; Classification: Medical ; Code: 7148486339 ; Contributor System: PowerChart ; Last Updated: 06/16/2018 8:21 EST ; Life Cycle Date: 06/16/2018 ; Life Cycle Status: Active ; Vocabulary: SNOMED CT Seasonal allergies (SNOMED CT :7274110346 ) Name of Problem: Seasonal allergies ; Recorder: Shavonne Jimenez RN; Confirmation: Confirmed ; Classification: Medical ; Code: 0072536106 ; Contributor System: UserEventsChart ; Last Updated: 06/16/2018 8:22 EST ; Life Cycle Date: 06/16/2018 ; Life Cycle Status: Active ; Vocabulary: SNOMED CT Diagnoses(Active) Medical screening exam Date: 10/27/2020 ; Diagnosis Type: Reason For Visit ; Confirmation: Complaint of ; Clinical Dx: Medical screening exam ; Classification: Medical ; Clinical Service: Non-Specified ; Code: PNED ; Probability: 0 ; Diagnosis Code: [id number] ED Height and Weight Height Source : Stated Height Entry Format : [place] Height, Feet : 5 ft(Converted to: 152 cm, 60 Inch) Height, Inches : 8 Inch(Converted to: 0 ft 8 Inch, 20.32 cm) Clinical Height : 172.72 cm Weight Source, ED : Critical estimated dosing weight Weight Entry Format : [place] Weight, Pounds : 250 lb Clinical Dosing Weight : 113.64 kg Body Surface Area (BSA) : 2.25 m2 Body Mass Index : 38.1 kg/m2 (HI) [place] Body Weight (IBW) : 67.45 kg Alina [...] on filedocumented in this encounter Care Teams Meteorological Engineer Relationship Specialty Start Date End Date Maya Torres, CLOTH EXAMINER HAND [address] [phone] PCP - General Family Medicine 08/27/22 documented as of this encounter
--- OUTSIDE RECORDS SUMMARY | 2025-07-11 10:08 | XMS_ITS | Encounter Summary ---
Author Organization [employer] ([place], [place], [place], [place], [place]) Address [address] [place] [address] Care Team Providers Care Mine Shifter Name Role Phone Maya Torres Reji BELCHER Primary Care Provider +1- [phone] Encounter Details Date Type Department Care Team (Late st Contact Info) Description 10/27/2020 Transcribed Document [facility] [place] [address] [place] [address] ProviderJean MD [address] [place], [place] [address] Social History Tobacco Use Types Packs/Day Years Used Date Smoking Tobacco: Never Assessed Sex and Gender Information Value Date Recorded Sex Assigned at Not on file Legal Sex Male 5:19 PM CDT Gender Identity Not on file Sexual Orientation Not on file documented as of this encounter Miscellaneous Notes * Cerner Conversion Note - Jean ProviderMD - 10/27/2020 11:59 AM CDT [place] Suicide Severity Rating Scale (C-SSRS) Entered On: 10/27/2020 12:32 EDT Performed On: 10/27/2020 12:21 EDT by Jasmin Thornton RN [place] Suicide Severity Rating Scale (C-SSRS) CSSRS Past Month Wish to be : No CSSRS Past Month Suicidal Thoughts : No CSSRS Lifetime Suicide Behavior : No Suicide Severity Rating Score : 0 Suicide Severity Rating : No Additional Care Required at this time Jasmin Thornton RN - 10/27/2020 12:21 EDT Electronically signed by Becky Tejeda Conversion Wave Soldering Machine Operator Cerner at 11/04/2022 3:15 PM CDT documented in this encounter Plan of Treatment Not on file documented as of this encounter Visit Diagnoses Not on filedocumented in this encounter Care Teams Mine Shifter Relationship Specialty Start Date End Date Maya Torres, STAGE HAND [address] [phone] PCP - General Family Medicine 08/27/22 documented as of this encounter
--- OUTSIDE RECORDS SUMMARY | 2025-07-11 10:08 | XMS_ITS | Encounter Summary ---
Author Organization [employer] ([place], [place], [place], [place], [place]) Address [address] [place] [address] Care Team Providers Care Greenhouse Florist Name Role Phone Maya Torres Reji BELCHER Primary Care Provider +1- [phone] Encounter Details Date Type Department Care Team (Late st Contact Info) Description 10/27/2020 Transcribed Document [facility] [place] [facility] [place] [address] ProviderJean MD [address] [place], [place] [address] Social History Tobacco Use Types Packs/Day Years [...] on filedocumented in this encounter Care Teams Greenhouse Florist Relationship Specialty Start Date End Date Maya Torres, CUSTODIAN [address] [phone] PCP - General Family Medicine 08/27/22 documented as of this encounter
--- OUTSIDE RECORDS SUMMARY | 2025-07-11 10:08 | XMS_ITS | Encounter Summary ---
Author Organization [employer] ([place], [place], [place], [place], [place]) Address [address] [place] [address] Care Team Providers Care Acupressure Therapist Name Role Phone Maya Torres Reji BELCHER Primary Care Provider +1- [phone] Encounter Details Date Type Department Care Team (Late st Contact Info) Description 10/27/2020 Transcribed Document [facility] [place] [facility] [place] [address] ProviderJean MD [address] [place] [address] Social History Tobacco Use Types [...] on filedocumented in this encounter Care Teams Acupressure Therapist Relationship Specialty Start Date End Date Maya Torres, SLAB INSTALLER [address] [phone] PCP - General Family Medicine 08/27/22 documented as of this encounter
--- OUTSIDE RECORDS SUMMARY | 2025-07-11 10:08 | XMS_ITS | Encounter Summary ---
Author Organization [employer] ([place], [place], [place], [place], [place]) Address [address] [place] [address] Care Team Providers Care Greenskeeper Supervisor Name Role Phone Maya Torres Reji BELCHER Primary Care Provider +1- [phone] Encounter Details Date Type Department Care Team (Late st Contact Info) Description 10/27/2020 Transcribed Document [facility] [place] [address] [place] [address] ProviderJean MD [address] [place] [address] Social History Tobacco Use Types [...] on filedocumented in this encounter Care Teams Greenskeeper Supervisor Relationship Specialty Start Date End Date Maya Torres, STEAM SERVICE INSPECTOR [address] [phone] PCP - General Family Medicine 08/27/22 documented as of this encounter
--- OUTSIDE RECORDS SUMMARY | 2025-07-11 10:08 | XMS_ITS | Clinical Summary ---
Author Organization Healthcare Address [address] [place] [address] Care Team Providers Care Staffing Coordinator Name Role Phone Unavailable Primary Care Provider [...]
--- OUTSIDE RECORDS SUMMARY | 2025-07-11 10:08 | XMS_ITS | Encounter Summary ---
Author Organization [employer] ([place], [place], [place], [place], [place]) Address [address] [place] [address] Care Team Providers Care Glove Tagger Name Role Phone Maya Torres Reji BELCHER Primary Care Provider +1- [phone] Encounter Details Date Type Department Care Team (Late st Contact Info) Description 10/27/2020 Transcribed Document [facility] [place] Medicine [address] [place] [address] ProviderJean MD [address] [place] [address] Social History Tobacco Use Types [...] 10/27/2020 12:55:00 EDT fentaNYL,50mcg IV Push,Left Antecubital [place] Pain Assessment Pain Scale Used : 0-10 [...] on filedocumented in this encounter Care Teams Glove Tagger Relationship Specialty Start Date End Date Maya Torres, CHOCOLATE REFINING ROLLER [address] [phone] PCP - General Family Medicine 08/27/22 documented as of this encounter
--- OUTSIDE RECORDS SUMMARY | 2025-07-11 10:09 | XMS_ITS | Clinical Summary ---
Author Organization [employer] ([place], [place], [place], [place], [place]) Address [address] [place] [address] Care Team Providers Care Medical Imaging Technologist Name Role Phone Maya Torres APRN Primary Care Provider +1- [phone] Allergies No known active allergies Medications traZODone [...] Date Jan rded Speak language other than Surinamese at home Not on file 08/04/2023 Want [...] 04/24/2019, 2017 Insurance MEDICARE PART A B [facility] Care Teams Medical Imaging Technologist Relationship Specialty Start Date End Date Maya Torres, GAME SHOW HOST [address] [phone] PCP - General Family Medicine 08/27/22
--- OUTSIDE RECORDS SUMMARY | 2025-07-11 10:09 | XMS_ITS | Encounter Summary ---
Author Organization [employer] ([place], [place], [place], [place], [place]) Address [address] [place] [address] Care Team Providers Care Edge Bonder Name Role Phone Maya Torres APRN Primary Care Provider +1- [phone] Encounter Details Date Type Department Care Team (Late st Contact Info) Description 10/30/2020 Transcribed Document [facility] [place] Family Medicine [facility] [place] [address] ProviderJean MD [address] [place] [address] Social History Tobacco Use Types [...] on filedocumented in this encounter Care Teams Edge Bonder Relationship Specialty Start Date End Date Maya Torres APRN [address] [facility] [address] [place] [address] PCP - General Family Medicine 08/27/22 documented as of this encounter
--- OUTSIDE RECORDS SUMMARY | 2025-07-11 10:09 | XMS_ITS | Encounter Summary ---
Author Organization [employer] ([place], [place], [place], [place], [place]) Address [address] [place] [address] Care Team Providers Care Plug Wirer Name Role Phone Maya Torres SIMI Primary Care Provider +1- [phone] Encounter Details Date Type Department Care Team (Late st Contact Info) Description 10/27/2020 Transcribed Document [facility] Family Medicine [facility] [place] [address] ProviderJean MD [address] [place] [id number] Social History Tobacco Use Types Packs/Day Years [...] EDT Height Source Stated Height Entry Format [place] Height/Length, LEBANESE (ft) 5 ft Height/Length LEBANESE 8 Inch CLINICALHEIGHT 172.72 cm [place] Body Weight 67.45 kg Weight Source, ED Critical estimated dosing weight Weight Entry Format [place] Weight Gibraltarian lb 250 lb CLINICALWEIGHT 113.64 kg Body [...] Color Yellow Urine Appearance Clear Urine Specific [place] 1.006 Urine pH Dipstick 6.5 Urine Leukocyte [...] % LOW ALYC # 1 K/uL NA [place] Percent Man 2 % LOW Eos Percent Man 1 % Baso Percent Man 1 % Myelo Percent Man 2 % HI RBC Morphology Normal Platelet Ct Estimate Adequate Slide Review Add Diff Man PT 9.9 Second(s) INR 0.9 PTT 25.2 Second(s) Procalcitonin <0.25 ng/mL SARS-CoV-2 (COVID19 PCR) Negative . Radiology results: Radiology Results (Last 48 hours) [id number] -- 10/27/2020 11:59 CT Abdomen Pelvis W [...] on filedocumented in this encounter Care Teams Plug Wirer Relationship Specialty Start Date End Date Maya Torres, DEICER REPAIRER [address] [phone] PCP - General Family Medicine 08/27/22 documented as of this encounter
--- OUTSIDE RECORDS SUMMARY | 2025-07-11 10:09 | XMS_ITS | Referral Summary ---
Author Organization [employer] ([place], [place], [place], [place], [place]) Address [address] [place] [address] Care Team Providers Care Geothermal Production Manager Name Role Phone Maya Torres APRN Primary Care Provider +1- [phone] Allergies No known active allergies Medications traZODone [...] Date Jan rded Speak language other than Syriac at home Not on file 08/04/2023 Want [...] on file Insurance MEDIC[facility] Care Teams Geothermal Production Manager Relationship Specialty Start Date End Date Maya Torres, BUSINESS CONTINUITY SPECIALIST [address] [phone] PCP - General Family Medicine 08/27/22
--- OUTSIDE RECORDS SUMMARY | 2025-07-11 10:09 | XMS_ITS | Encounter Summary ---
Author Organization [employer] ([place], [place], [place], [place], [place]) Address [address] [place] [address] Care Team Providers Care Boatswain Mate Name Role Phone Maya Torres Reji BELCHER Primary Care Provider +1- [phone] Encounter Details Date Type Department Care Team (Late st Contact Info) Description 10/27/2020 Transcribed Document [facility] [place] [address] [place] [address] ProviderJean MD [address] [place] [address] Social History Tobacco Use Types [...] Sawant MD - 10/27/2020 6:36 PM CDT [facility] [place], [place] [id number] ISATU MENDIETA :1950 Visit Time:10/27/2020 Your Visit [...] to 3 days Where: [place] [address] [place] [address] [facility] (1) Allergies No Known Medication Allergies [...] 24HR 55 mcg/ inh nasal spray) 1 [place]thorne(s) Nasal Two Times A Day The home [...] and 14.9 ) ANC #: 12 K/uL [place] Percent Man: 2 % -- Normal range [...] ) Urine Bilirubin Dipstick: Negative Urine Specific [place]: 1.006 -- Normal range between ( 1.005 [...] or lying down. General instructions ??? Take fcjt-hde-hefuoos and prescription medicines only as told by [...] compression, and elevation. You may be given fxok-vew-qsaiehd medicines for pain. ??? Contact a health [...] provider. Document Revised: 02/22/2019 Document Reviewed: 02/22/2019 [employer] Patient Education ?? 2020 [employer]. Emergency Awareness and Preventative Care STROKE is [...] Assistance with quitting is available by contacting 1-693-JYDF-NOW. This is a free resource providing counseling, [...] was given the opportunity to ask questions. Patient/Tree Scout Name: Patient/Tree Scout Signature: Relationship to Patient: Clinician/Hospital Tree Scout Signature: Please Provide a Telephone Number Where You Can Be Reached: Is it Permissible To Leave a Message? Date: documented in this encounter Plan of Treatment Not on file documented as of this encounter Visit Diagnoses Not on filedocumented in this encounter Care Teams Boatswain Mate Relationship Specialty Start Date End Date Maya Torres, SIMI [address] [phone] PCP - General Family Medicine 08/27/22 documented as of this encounter
--- OUTSIDE RECORDS SUMMARY | 2025-07-11 10:09 | XMS_ITS | Encounter Summary ---
Author Organization [employer] ([place], [place], [place], [place], [place]) Address [address] [place] [address] Care Team Providers Care Institutional Asset Manager Name Role Phone Maya Torres APRN Primary Care Provider +1- [phone] Encounter Details Date Type Department Care Team (Late st Contact Info) Description 10/27/2020 Transcribed Document [facility] [place] Medicine [address] [place] [address] ProviderJean MD [address] [place] [address] Social History Tobacco Use Types [...] 10/27/2020 6:32 PM CDT Electronically signed by [facility] Conversion Director Day Care Center Cerner at 11/04/2022 3:28 PM CDT documented in this encounter Plan of Treatment Not on file documented as of this encounter Visit Diagnoses Not on filedocumented in this encounter Care Teams Institutional Asset Manager Relationship Specialty Start Date End Date Maya Torres APRN [address] [facility] [address] [place] [address] PCP - General Family Medicine 08/27/22 documented as of this encounter
--- OUTSIDE RECORDS SUMMARY | 2025-07-11 10:09 | XMS_ITS | Encounter Summary ---
Author Organization [employer] ([place], [place], [place], [place], [place]) Address [address] [place] [address] Care Team Providers Care Speech Pathology Teacher Name Role Phone Maya Torres Reji BELCHER Primary Care Provider +1- [phone] Encounter Details Date Type Department Care Team (Late st Contact Info) Description 10/27/2020 Transcribed Document [facility] [place] [address] [place] [address] ProviderJean MD [address] [place] [address] Social History Tobacco Use Types [...] on filedocumented in this encounter Care Teams Speech Pathology Teacher Relationship Specialty Start Date End Date Maya Torres, BALL TRUING MACHINE OPERATOR [address] [phone] PCP - General Family Medicine 08/27/22 documented as of this encounter
--- OUTSIDE RECORDS SUMMARY | 2025-07-11 10:10 | XMS_ITS | Encounter Summary ---
Author Organization [employer] ([place], [place], [place], [place], [place]) Address [address] [place] [address] Care Team Providers Care Heating And Blending Supervisor Name Role Phone Maya Torres Reji BELCHER Primary Care Provider +1- [phone] Encounter Details Date Type Department Care Team (Late st Contact Info) Description 10/18/2020 Transcribed Document [facility] [place] [address] ProviderJean MD [address] [place] [address] Social History Tobacco Use Types Packs/Day Years [...] 10/18/2020 21:39 EDT Electronically signed by [facility] Conversion Mushroom Picker Cerner at 11/04/2022 3:31 PM CDT documented in this encounter Plan of Treatment Not on file documented as of this encounter Visit Diagnoses Not on filedocumented in this encounter Care Teams Heating And Blending Supervisor Relationship Specialty Start Date End Date Maya Torres, AIR CONDITIONING UNIT TESTER [address] [phone] PCP - General Family Medicine 08/27/22 documented as of this encounter
--- OUTSIDE RECORDS SUMMARY | 2025-07-11 10:10 | XMS_ITS | Encounter Summary ---
Author Organization [employer] ([place], [place], [place], [place], [place]) Address [address] [place] [address] Care Team Providers Care Truck Hopper Name Role Phone Maya Torres Reji BELCHER Primary Care Provider +1- [phone] Encounter Details Date Type Department Care Team (Late st Contact Info) Description 10/27/2020 Transcribed Document [facility] [place] [address] [place] [address] ProviderJean MD [address] [place] [address] Social History Tobacco Use Types [...] 10/27/2020 12:21 EDT by Jasmin Thornton DIE MAKER General-Functional Assess Preferred Communication Mode : Verbal Communication Barrier : None Primary Language : Portuguese Any Spiritual/Cultural Needs or Requests : No [...] Rhythm : Regular Nail Bed Color : [place] Chest Pain : No Capillary Refill, Left [...] mm Pupil Size, Right : 3 mm [place] Coma Scale Link : Open GCS Jasmin Thornton RN - 10/27/2020 12:21 EDT Diana Coma Diana Best Motor Response : Obey commands Diana Best Verbal Response : Oriented [place] Eye Opening Response : Spontaneous [place] Coma Score : 15 Jasmin Thornton RN - 10/27/2020 12:21 EDT Electronically signed by [facility] Conversion Quality Assurance Supervisor Trim Cerner at 11/04/2022 3:11 PM CDT documented in this encounter Plan of Treatment Not on file documented as of this encounter Visit Diagnoses Not on filedocumented in this encounter Care Teams Truck Hopper Relationship Specialty Start Date End Date Maya Torres, DIVING SUPERVISOR [address] [phone] PCP - General Family Medicine 08/27/22 documented as of this encounter
--- OUTSIDE RECORDS SUMMARY | 2025-07-11 10:10 | XMS_ITS | Clinical Summary ---
Author Organization [facility] Address [address] [place] [address] Care Team Providers Care Poker Supervisor Name Role Phone Maya Torres Primary Care Provider + [phone] Allergies No known active allergies Medications DULoxetine [...] Completed 10/27/2020 Medical Devices Implanted Type Area Ice Carver Device Identifier Shelf Expiration Date Model / Serial / Lot Ld Stim Precsn Trial Lnr 8contct St/Tp50 - [id number] - [id number] Implanted:Qty : 1 on 10/05/2022 by Jerome Morrissey MD at Implant N/A: Spine Thoracic [employer] 08/30/2024 [id number] / [id number] / Ld Stim Precsn Trial Lnr 8contct St/Tp50 - [id number] - [id number] Implanted:Qty : 1 on 10/05/2022 by Jerome Morrissey MD at Implant N/A: Spine Thoracic [employer] 08/26/2024 [id number] / [id number] / Anchr Ld Scs Clikx Ea/St/2 - [id number] Implanted:Qty : 1 on 10/05/2022 by Jerome Morrissey MD at Implant N/A: Spine Thoracic [employer] 01/06/2024 [id number] / / [id number] Kt Ipg Wavewriter Alpha 16/Contct - [id number] - [id number] Implanted:Qty : 1 on 10/05/2022 by Jerome Morrissey MD at Implant N/A: Spine Thoracic [employer] [id number] 09/13/2024 [id number] / [id number] Insurance MEDICARE A & B Member Subscriber Plan / Payer (Ef fective 2017-Present) Name:Stephane Mendieta Member ID:[id number] Relation to Subscriber:Self Name:Stephane Mendieta Subscriber ID:[id number] Payer ID:[id number] Group ID:Not on file Type:Not on file Address: [facility] [id number] [place] [id number] [facility] [employer] Care Teams Poker Supervisor Relationship Specialty Start Date End Date Maya Torres [address] [place] [place] [phone] PCP - General Nurse Practitioner 09/28/22
--- OUTSIDE RECORDS SUMMARY | 2025-07-11 10:10 | XMS_ITS | Continuity of Care Document ---
Author Organization [employer] [facility]un [facility] Address [address] [place] [address] Assessment No assessment recorded. Plan of Treatment [...] Orders lorazepam 1 mg tablet 2024 025 [facility] (Now [facility]), [address] [facility], [place], [address], 05/09/2025 18:00:59 Patient TargetsNo targets recorded. Patient InstructionsNo instructions recorded. Reason for Referral None Reported. Problems Name Problem SNOMED Code Status Onset Date Resolution Date Notes Provider Name and Address Organization Details Recorded Time Generali zed anxiety disorder [id number] Completed 201609/21/2016 Problem Code: F41.1; Problem Code Type: ICD-10; Maya Torres APRN [address] [place], [address] , [employer]. 3 11:40:35 Allergic rhinitis caused by pollen 87383425 Completed 201610/08/2016 Problem Code: J30.1; Problem Code Type: ICD-10; Not Available [facility] 2 21:50:51 Pain in right knee Completed 201608/23/2016 Problem Code: M25.561; Problem Code Type: ICD-10; Not Available [facility] 21:50:53 Pain in left knee Completed 201608/23/2016 Problem Code: M25.562; Problem Code Type: ICD-10; Not Available [facility] 21:51:03 Knee pain Completed 201608/23/2016 Problem Code: 719.46; Problem Code Type: ICD-9; [facility]AN ANTON[facility]. 11:16:05 Acute sinusiti s 02243822 Completed 201610/05/2016 Problem Code: J01.90; Problem Code Type: ICD-10; JUAN ANTONIO mortensen, [employer]. 11:16:05 Pain in right knee Completed 201611/04/2016 Problem Code: M25.561; Problem Code Type: ICD-10; Not Available [facility] 21:50:53 Prepatel lar bursitis of right knee [id number] 9100 Completed 201612/20/2016 Not Available [facility] 21:50:54 Knee pain Completed 201611/04/2016 Problem Code: 719.46; Problem Code Type: ICD-9; JUAN ANTONIO mortensen [employer]. 11:16:05 Prepatel lar bursitis 12530162 Completed 201612/20/2016 Problem Code: 726.65; Problem Code Type: ICD-9; Not Available [facility] 21:51:17 Pain in right knee Completed 201612/13/2016 Problem Code: M25.561; Problem Code Type: ICD-10; Not Available [facility] 21:51:02 Knee pain Completed 201612/13/2016 Problem Code: 719.46; Problem Code Type: ICD-9; JUAN ANTONIO mortensen [employer]. 10/18/202 2 11:16:05 Allergic rhinitis 97566097 Completed 201603/11/2017 Problem Code: J30.9; Problem Code Type: ICD-10; Not Available [facility] 2 21:50:51 Allergic rhinitis 03069515 Completed 201605/06/2017 Problem Code: J30.9; Problem Code Type: ICD-10; Not Available [facility] 2 21:50:51 Allergic rhinitis caused by pollen 27504742 Completed 201608/02/2017 Problem Code: J30.1; Problem Code Type: ICD-10; Not Available [facility] 2 21:50:51 Hyperten sive disorder 50211617 Completed 201708/30/2017 Problem Code: I10; Problem Code Type: ICD-10; Not Available [facility] 2 21:50:50 Acute sinusiti s 58056546 Completed 201708/12/2017 Problem Code: J01.90; Problem Code Type: ICD-10; JUAN ANTONIO mortensen [employer]. 11:16:05 Benign essentia l hyperten marquis 4457783 Completed 201701/17/2018 Problem Code: 401.1; Problem Code Type: ICD-9; Not Available [facility] 2 21:51:06 Tinea pedis 1608091 Completed 201711/25/2017 Problem Code: B35.3; Problem Code Type: ICD-10; Not Available [facility] 2 21:50:48 Neck pain 71969258 Completed 201711/25/2017 Not Available [facility] 2 21:50:53 Hyperest hesia 73288721 Completed 201711/25/2017 Problem Code: R20.3; Problem Code Type: ICD-10; Not Available [facility] 2 21:50:55 Skin sensatio n disturba nce 81750330 Completed 201711/25/2017 Problem Code: 782.0; Problem Code Type: ICD-9; Not Available [facility] 2 21:51:11 Acquired deformit y of toe 45598829 Completed 201701/09/2021 Problem Code: 735.8; Problem Code Type: ICD-9; Not Available [facility] 2 21:51:11 Onychomy cosis due to dermatop hyte 266400771 Completed 201711/25/2017 Problem Code: 110.1; Problem Code Type: ICD-9; Not Available [facility] 2 21:51:15 Acute sinusiti s 16440435 Completed 201701/31/2018 Problem Code: J01.90; Problem Code Type: ICD-10; JUAN ANTONIO mortensen, [employer]. 11:16:05 Non-neop lastic nevus 166396063 Completed 201706/28/2019 Not Available [facility] 2 21:50:58 Large prostate 480668992 Completed 201703/10/2018 Problem Code: N40.0; Problem Code Type: ICD-10; Not Available [facility] 2 21:51:05 Generali zed atherosc lerosis 76714516 Completed 201701/09/2021 Problem Code: 440.9; Problem Code Type: ICD-9; Not Available [facility] 2 21:51:08 Benign prostati c hyperpla mel 181346872 Completed 201701/09/2021 Problem Code: 600.00; Problem Code Type: ICD-9; Not Available [facility] 2 21:51:09 Lacerati on of finger with foreign body 533428182 Completed 201704/25/2018 Problem Code: S61.222A ; Problem Code Type: ICD-10; Not Available [facility] 2 21:50:56 Pre-surg marjorie evaluati on Completed 201704/25/2018 Not Available [facility] 2 21:50:58 Open wound of finger with complica tion 17217707 Completed 201704/25/2018 Problem Code: 883.1; Problem Code Type: ICD-9; Not Available [facility] 21:51:10 Abnormal weight gain 370969424 Completed 201705/09/2018 Problem Code: R63.5; Problem Code Type: ICD-10; Not Available [facility] 21:50:55 Mixed hyperlip idemia 478083338 Completed 201701/09/2021 Problem Code: 272.2; Problem Code Type: ICD-9; Tamar mortensen [facility]. 09:56:03 Anemia of chronic disease 166483966 Completed 201706/28/2019 Problem Code: D63.8; Problem Code Type: ICD-10; Not Available [facility] 21:50:49 Prostate specific antigen above referenc e range 525469914 Completed 201705/12/2018 Problem Code: R97.20; Problem Code Type: ICD-10; Not Available [facility] 21:50:56 Iron deficien cy anemia secondar y to inadequa te dietary iron intake 973214960 Completed 201705/27/2018 Problem Code: D50.8; Problem Code Type: ICD-10; Not Available [facility] 21:50:49 Ulcerati ve pancolit is 349055096 Completed 201706/28/2019 Problem Code: K51.00; Problem Code Type: ICD-10; Not Available [facility] 21:50:52 Abscess of limb 556319043 Completed 201705/27/2018 Problem Code: L02.415; Problem Code Type: ICD-10; Not Available [facility] 21:51:00 Abscess of leg, except foot 78670709 Completed 201705/27/2018 Not Available [facility] 21:51:10 Ulcerati ve colitis 60866558 Completed 201701/09/2021 Problem Code: 556.6; Problem Code Type: ICD-9; Not Available [facility] 21:51:16 Anemia due to chronic blood loss 957157383 Active 2017 Problem Code: D50.0; Problem Code Type: ICD-10; Not Available [facility] 2 21:50:49 Ulcerati ve pancolit is 390382962 Completed 201706/28/2019 Problem Code: K51.00; Problem Code Type: ICD-10; Not Available [facility] 2 21:50:52 Ulcerati ve colitis 72013718 Completed 201701/09/2021 Problem Code: 556.6; Problem Code Type: ICD-9; Not Available [facility] 2 21:51:17 Acute posthemo rrhagic anemia 059251622 Completed 201706/12/2018 Problem Code: D62; Problem Code Type: ICD-10; Not Available [facility] 2 21:50:49 Acute posthemo rrhagic anemia 837152960 Completed 201706/17/2018 Problem Code: D62; Problem Code Type: ICD-10; Not Available [facility] 2 21:50:49 Acute posthemo rrhagic anemia 017786949 Completed 201706/24/2018 Problem Code: D62; Problem Code Type: ICD-10; Not Available [facility] 2 21:50:49 Pain in right knee Completed 201705/01/2018 Problem Code: M25.561; Problem Code Type: ICD-10; Not Available [facility] 2 21:50:53 Pain in left knee Completed 201705/01/2018 Problem Code: M25.562; Problem Code Type: ICD-10; Not Available [facility] 2 21:50:54 Knee pain Completed 201705/04/2022 Problem Code: 719.46; Problem Code Type: ICD-9; JUAN ANTONIO mortensen [employer] 2 11:16:05 Acute sinusiti s 86785426 Completed 201707/03/2018 Problem Code: J01.90; Problem Code Type: ICD-10; JUAN ANTONIO mortensen [employer] 11:16:05 Acute bronchit is 06946260 Completed 201708/18/2018 Problem Code: J20.9; Problem Code Type: ICD-10; Not Available [facility] 2 21:50:51 Idiopath ic osteoart hritis 518367405 Active 2018 Problem Code: M17.0; Problem Code Type: ICD-10; Not Available [facility] 2 21:51:01 Allergic sensitiz ation 635828260 Completed 201805/04/2022 JUAN ANTONIO mortensen, [employer] 11:16:05 Mixed hyperlip idemia 862741675 Active 2018 Problem Code: E78.2; Problem Code Type: ICD-10; Tamar mortensen, [employer] 5 09:56:03 Large prostate 122806588 Active 2018 Problem Code: N40.0; Problem Code Type: ICD-10; Not Available [facility] 2 21:50:54 Dysthymi a 23339397 Active 2018 Problem Code: R53.81; Problem Code Type: ICD-10; Not Available [facility] 21:51:11 Primary insomnia 8526382 Active 2018 Problem Code: F51.01; Problem Code Type: ICD-10; Not Available [facility] 2 21:50:50 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 29237441 Active 2018 Problem Code: M50.00; Problem Code Type: ICD-10; Not Available [facility] 2 21:50:54 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 11:16:05 Body mass index 30+ - obesity 831697698 Active 2018 Problem Code: Z68.35; Problem Code Type: ICD-10; Not Available [facility] 2 21:50:59 Diabetes mellitus screenin g Completed 201805/04/2022 Problem Code: Z13.1; Problem Code Type: ICD-10; JUAN ANTONIO mortensen [employer] 2 11:16:05 Body mass index 30+ - obesity 714685994 Completed 201807/17/2020 Problem Code: Z68.35; Problem Code Type: ICD-10; Not Available [facility] 21:51:01 Atelecta sis 53033855 Completed 201812/14/2019 Problem Code: J98.11; Problem Code Type: ICD-10; Not Available [facility] 2 21:50:52 General examinat ion of patient Completed 201806/28/2019 JUAN ANTONIO mortensen [employer] 2 11:16:05 Body mass index 30+ - obesity 258812718 Completed 201807/17/2020 Problem Code: Z68.35; Problem Code Type: ICD-10; Not Available [facility] 2 21:51:01 Body mass index 30+ - obesity 828708997 Completed 201807/17/2020 Problem Code: Z68.35; Problem Code Type: ICD-10; Not Available [facility] 2 21:51:00 Body mass index 30+ - obesity 177583972 Completed 201907/17/2020 Problem Code: Z68.36; Problem Code Type: ICD-10; Not Available [facility] 2 21:51:13 Disorder of skin and/or subcutan eous tissue 07126977 Completed 201905/04/2022 JUAN ANTONIO mortensen, [employer]. 11:16:05 Body mass index 30+ - obesity 627219867 Completed 201907/17/2020 Problem Code: Z68.36; Problem Code Type: ICD-10; Not Available [facility] 21:51:00 General examinat ion of patient Completed 201905/04/2022 JUAN ANTONIO mortensen, [employer] 11:16:05 General examinat ion of patient Completed 202009/15/2020 JUAN ANTONIO mortensen, [employer]. 11:16:05 Body mass index 30+ - obesity 578136815 Completed 202009/15/2020 Problem Code: Z68.36; Problem Code Type: ICD-10; Not Available [facility] 21:51:14 Cough 12974434 Completed 202004/02/2021 Problem Code: R05; Problem Code Type: ICD-10; Not Available [facility] 21:50:54 Acute sinusiti s 85204045 Completed 202005/04/2022 Problem Code: J01; Problem Code Type: ICD-10; JUAN ANTONIO mortensen, [employer]. 11:16:05 Eruption 935477943 Completed 202005/04/2022 Problem Code: R21; Problem Code Type: ICD-10; JUAN ANTONIO mortensen, [employer]. 11:16:05 Contusio n of anterior abdomina l wall 774627872 Completed 202005/04/2022 JUAN ANTONIO mortensen, [employer]. 11:16:05 Malignan t neoplasm of skin 725380257 Completed 202004/02/2021 Problem Code: C44.90; Problem Code Type: ICD-10; Not Available [facility] 09/05/202 2 21:50:49 Allergic rhinitis 86075945 Active 2020 Problem Code: J30.9; Problem Code Type: ICD-10; Not Available [facility] 2 21:50:52 Abrasion of skin of palm of hand 894511971 Completed 202109/24/2021 Not Available [facility] 2 21:50:56 Current drug user 242264289 Active 2021 Problem Code: Z79.899; Problem Code Type: ICD-10; Not Available [facility] 2 21:51:02 Acute frontal sinusiti s 59932694 Completed 202105/04/2022 Problem Code: J01.1; Problem Code Type: ICD-10; JUAN ANTONIO mortensen, [employer] 2 11:16:06 Generali zed anxiety disorder 10109041 Active 2022 Problem Code: F41.1; Problem Code Type: ICD-10; Maya Torres, SIMI [address] [place] [address], [address] , [employer] 3 11:40:35 Problem Notes None recorded. Procedures Surgical History Date Name Laterality Status Provider Name and Address Organization Details Recorded Time 7 hernia repair completed Not Available [facility] 03/23/2022 22:56:15 Imaging Results None recorded. [...] Updated DateTime 5 175.26 cm 36.8 kg/m2 099771. 5 g 83 /min 91 % 134/85 mm[Hg] Tamar Durham [employer] 5 10:47:28 Social History Question Answer Notes LastModified by Organizat ion Details LastModified Time Tobacco Smoking Status Former Smoker JUAN ANTONIO mortensen, [employer] 05/04/2022 11:17:53 Do You Have An Advance Directive? No [email or web address] Information n ot available 06/04/2022 Are You Blind Or Do You Have Difficulty Seeing? No [email or web address] Information n ot available 05/04/2022 What Is Your Level Of Caffeine Consumption? Moderate Information not available 11/30/2022 Are You A Caregiver? No [email or web address] Information not available 06/04/2022 In The 14 [...] Do You Have Serious Difficulty Hearing? No [email or web address] Information not available 05/04/2022 What Type Of Diet Are You Following? REGULAR [email or web address] Information n ot available 06/04/2022 Have There Been Any Changes To Your Family Or Social Situation? No [email or web address] Information no t available 06/04/2022 When Did You Quit Smoking? 6-10yearssinc elastcigarett e Information not available 06/01/2024 Do You Have A Medical Power Of Telegraph Office Route Aide? No [email or web address] Information not available 06/04/2022 What Was The Date Of Your Most Recent Tobacco Screening? 05/09/2025 Information not available 05/09/2025 What Is Your Current Pack Years? 20-29packyear s [email or web address] Information not available 05/04/2022 What Is Your Relationship Status? [email or web address] Information not available 05/04/2022 Do You Use Your Seat Belt Or Car Seat Routinely? Yes [email or web address] Information not available 06/04/2022 Do You Have Smoke And Carbon Monoxide Detectors In Your Home? Yes [email or web address] Information not available 06/04/2022 How Much Tobacco Do You Smoke? 1 PPD Information not available 06/01/2024 Do You Use Sunscreen Routinely? No [email or web address] Information not available 06/04/2022 Have You Recently Traveled Abroad? No [email or web address] Information not available 06/04/2022 Do You Have Difficulty Walking Or Climbing Stairs? No [email or web address] Information not available 05/04/2022 Are You Currently In School? No [email or web address] Information not available 06/04/2022 Do You Have Any Dietary Restrictions? No [email or web address] Information not available 06/04/2022 Sex: Male Functional Status Question Answer Note LastModified by Organizat ion Details LastModified Time Do you use any illicit or recreational drugs? No Information not available 11/30/2022 What is your level of alcohol consumption? None [email or web address] Information not available 05/04/2022 Are you currently employed? No [email or web address] Information not available 06/04/2022 Do you have transportation difficulties? No [email or web address] Information not available 05/04/2022 Are you able to walk independently without assistance or assistive devices? YESWOREST [email or web address] Information not available 05/04/2022 Do you have difficulty doing errands alone? No [email or web address] Information not available 05/04/2022 Are you able to care for yourself independently? Yes [email or web address] Information not available 05/04/2022 Do you have difficulty dressing, bathing, grooming, or toileting? No [email or web address] Information not available 05/04/2022 What is your exercise level? None [email or web address] Information not available 06/04/2022 Mental Status Question Answer Note LastModified by Organization D etails LastModified Time Do you have difficulty concentrating, remembering or making decisions? No [email or web address] Information no t available 05/04/2022 Family History Relationship Description Onset Age of this Age Resolved Age Notes LastModified by Organization Details LastModified Time Unspecified Relation Family history of Hypertension [email or web address] Not available 11:16:26 Unspecified Relation Family history of malignant neoplasm [email or web address] Not available 05/04 11:16:34 Unspecified Relation Family history of polyp of colon [email or web address] Not available 05/04 11:16:39 Medical History Condition Response Allergies (Food, seasonal, environmental ) Y Hypertension Y GI Problems Y Immunizations Vaccine Type Date Status Note Provider Name and Address Organization Details Recorded Time zoster recombinant 024 cancelled patient objection Maya Torres APRN [address] [place], [address], [employer] 10/03/2023 13:15:21 pneumococcal polysaccharide PPV23 019 completed Tamar mortensen, [employer] 05/09/2025 10:23:09 Pneumococcal conjugate PCV 13 10/08/2 018 completed Tamar Durham null, [employer] 05/09/2025 10:23:09 COVID-19, mRNA, LNP-S, PF, 100 mcg/0.5mL dose or 50 mcg/0.25mL dose 021 completed Tamar Castellony null, [employer] 05/09/2025 10:23:09 COVID-19, mRNA, LNP-S, PF, 100 mcg/0.5mL dose or 50 mcg/0.25mL dose 021 completed Tamar Castellony null, [employer] 05/09/2025 10:23:09 COVID-19, mRNA, LNP-S, PF, 100 mcg/0.5mL dose or 50 mcg/0.25mL dose 021 completed Tamar Marva null, [employer] 05/09/2025 10:23:09 Influenza, high-dose, trivalent, PF 019 completed JUAN ANTONIO EILEEN null, [employer] 07/02/2022 11:24:10 Influenza, split virus, trivalent, PF 017 completed JUAN ANTONIO EILEEN null, [employer] 07/02/2022 11:24:10 Influenza, MDCK, quadrivalent, PF completed JUAN ANTONIO EILEEN null, [employer] 07/02/2022 11:24:10 Tdap 016 completed JUAN ANTONIO EILEEN null, [employer] 07/02/2022 11:24:10 Influenza, high-dose, trivalent, PF 018 completed JUAN ANTONIO EILEEN null, [employer] 07/02/2022 11:24:10 COVID-19, mRNA, LNP-S, bivalent, PF, 50 mcg/0.5 mL or 25mcg/0.25 mL dose 022 completed JUAN ANTONIO EILEEN null, [employer] 07/02/2022 11:24:10 Influenza, high-dose, quadrivalent, PF 022 completed [facility] ANTONIO mortensen, [facility] 07/02/2022 11:24:10 Influenza, high-dose, quadrivalent, PF 021 completed [facility] ANTONIO [facility]ensen [facility] 07/02/2022 11:24:10 RSV, recombinant, protein subunit RSVpreF, adjuvant reconstituted, 0.5 mL, PF 023 completed Not Available [facility] 05/09/2025 10:21:48 Influenza, high-dose, quadrivalent, PF 023 completed Not Available [facility] 05/09/2025 10:21:48 Influenza, high-dose, trivalent, PF 024 completed Not Available [facility] 05/09/2025 10:21:48 Pneumococcal conjugate PCV20, polysaccharide TMR192 conjugate, adjuvant, PF 025 completed Not Available [facility] 05/09/2025 10:21:48 Influenza, high-dose, trivalent, PF 025 completed Not Available [facility] 05/09/2025 10:21:48 Influenza, high-dose, quadrivalent, PF 020 completed Tamar mortensen, [facility] 05/09/2025 10:23:09 Past Encounters Encounter ID Performer Location Encounter Start Date Encounter Closed Date Diagnosis/Indication Diagnosis SNOMED-CT Code Diagnosis ICD10 Code Diagnosis IMO Codes Diagnosis Note [id number] Maya Torres [address] [address] 05/09/2025 10:20:23 05/09/2025 11:27:11 Generalized anxiety disorder 20631735 F41.1 controlled substance agreement and drug screen UTD at this time. Essential hypertension 76229854 I10 Gastroesop hageal reflux disease without esophagitis 779249248 K21.9 Allergic rhinitis 571044 04 J30.9 Body mass index 30+ - obesity 995768892 Z68.36 [id number] Health Concerns Section Related Observation LastModified by Organization Detai ls LastModified Time None Recorded Concern Status LastModified by Organization Details LastModified Time None Recorded Payers Encounter Date Sequence Insurance Name Policy Number Policy Sutherland Covered Member ID Sutherland Member ID Guarantor Name 05/09/2025 1 [place] Stephane Mendieta [id number] Stephane Mendieta 05/09/2025 2 [employer] SUPPLEMENTAL - [employer]UR[employer] (MEDICARE SUPPLEMENT) Stephane Lozano Anam [id number] Stephane Mendieta Notes Date Note Type Note Provider Name and Address Organization Details Recorded Time 05/09/2025 text/html pt here today for medication refills. pt states hes doing well on current medication regime and has no new complaints today. pt requested more trelegy samples and i gave him 4. Maya Torres, PIN TICKET MACHINE OPERATOR [address] [facility], [place], [address], [facility] [employer] 05/09/2025 18:02:01
--- OUTSIDE RECORDS SUMMARY | 2025-07-11 10:10 | XMS_ITS | Encounter Summary ---
Author Organization [employer] ([place], [place], [place], [place], [place]) Address [address] [place] [address] Care Team Providers Care Senior Electrical Project Manager Name Role Phone Maya Torres APRN Primary Care Provider [phone] Encounter Details Date Type Department Care Team (Late st Contact Info) Description 10/18/2020 Transcribed Document [facility] Family Medicine [address] [place] [address] ProviderJean MD [address] [place] [address] Social History Tobacco Use Types [...] 10/18/2020 9:20 PM CDT Electronically signed by [facility] Conversion Picker / [employer] Cerner at 11/04/2022 3:18 PM CDT documented in this encounter Plan of Treatment Not on file documented as of this encounter Visit Diagnoses Not on filedocumented in this encounter Care Teams Senior Electrical Project Manager Relationship Specialty Start Date End Date Maya Torres APRN [address] [facility] [address] [place] [address] PCP - General Family Medicine 08/27/22 documented as of this encounter
--- OUTSIDE RECORDS SUMMARY | 2025-07-11 10:10 | XMS_ITS | Encounter Summary ---
Author Organization [employer] ([place], [place], [place], [place], [place]) Address [address] [place] [address] Care Team Providers Care Lead Case Manager Name Role Phone Maya oTrres SIMI Primary Care Provider +1- [phone] Encounter Details Date Type Department Care Team (Late st Contact Info) Description 10/18/2020 Transcribed Document [facility] [place] [address] [place] [address] ProviderJean MD [address] [place], [place] [address] Social History Tobacco Use Types Packs/Day Years [...] Communication Barrier : None Primary Language : Mexican Any Spiritual/Cultural Needs or Requests : No [...] on filedocumented in this encounter Care Teams Lead Case Manager Relationship Specialty Start Date End Date Maya Torres, ENVELOPE FOLDER [address] [phone] PCP - General Family Medicine 08/27/22 documented as of this encounter
--- OUTSIDE RECORDS SUMMARY | 2025-07-11 10:10 | XMS_ITS | Encounter Summary ---
Author Organization [employer] ([place], [place], [place], [place], [place]) Address [address] [place] [address] Care Team Providers Care Truck Driver Flatbed Name Role Phone Maya Torres Reji BELCHER Primary Care Provider [phone]- [phone] Encounter Details Date Type Department Care Team (Late st Contact Info) Description 10/18/2020 Transcribed Document [facility] [place] [facility] [address] ProviderJean MD [address] [place], [place] [id number] Social History Tobacco Use Types Packs/Day Years [...] On: 10/18/2020 19:09 EDT by SUSHMA MARQUEZ, PRODUCTION MAINTENANCE MECHANIC Triage Across the Room Chief Complaint : [...] : 3 - Urgent Tracking Group : [facility] ED SUSHMA MARQUEZ RN - 10/18/2020 [...] Problems(Active) At risk for sleep apnea (IMO :56755929 ) Name of Problem: At risk for sleep apnea ; Recorder: SYSTEM, SYSTEM; Confirmation: Confirmed ; Classification: Medical ; Code: [id number] ; Last Updated: 06/16/2018 8:18 EST ; Life Cycle Date: 06/16/2018 ; Life Cycle Status: Active ; Vocabulary: IMO Enlarged prostate (SNOMED CT :442752271 ) Name of Problem: Enlarged prostate ; Recorder: Shavonne Jimenez RN; Confirmation: Confirmed ; Classification: Medical ; Code: 989193351 ; Contributor System: PlaceBloggerChart ; Last Updated: 06/16/2018 8:22 EST ; Life Cycle Date: 06/16/2018 ; Life Cycle Status: Active ; Vocabulary: SNOMED CT Hypertension (SNOMED CT :7872063952 ) Name of Problem: Hypertension ; Recorder: Shavonne Jimenez RN; Confirmation: Confirmed ; Classification: Medical ; Code: 5076989034 ; Contributor System: PlaceBloggerChart ; Last Updated: 06/16/2018 8:21 EST ; Life Cycle Date: 06/16/2018 ; Life Cycle Status: Active ; Vocabulary: SNOMED CT Seasonal allergies (SNOMED CT :2039937997 ) Name of Problem: Seasonal allergies ; Recorder: Shavonne Jimenez RN; Confirmation: Confirmed ; Classification: Medical ; Code: [id number] ; Contributor System: PowerChart ; Last Updated: 06/16/2018 8:22 EST ; Life Cycle Date: 06/16/2018 ; Life Cycle Status: Active ; Vocabulary: SNOMED CT Diagnoses(Active) Rib/trunk pain-swelling Date: 10/18/2020 ; Diagnosis Type: Reason For Visit ; Confirmation: Complaint of ; Clinical Dx: Rib/trunk pain-swelling ; Classification: Medical ; Clinical Service: Emergency medicine ; Code: PNED ; Probability: 0 ; Diagnosis Code: [id number] ED Height and Weight Height Source : Stated Height Entry Format : [place] Height, Feet : 5 ft(Converted to: 152 cm, 60 Inch) Height, Inches : 8 Inch(Converted to: 0 ft 8 Inch, 20.32 cm) Clinical Height : 172.72 cm Weight Source, ED : Critical estimated dosing weight Weight Entry Format : [place] Weight, Pounds : 240 lb Clinical Dosing Weight : 109.09 kg Body Surface Area (BSA) : 2.21 m2 Body Mass Index : 36.6 kg/m2 (HI) [place] Body Weight (IBW) : 67.45 kg SUSHMA MARQUEZ RN - 10/18/2020 19:09 EDT documented in this encounter Plan of Treatment Not on file documented as of this encounter Visit Diagnoses Not on filedocumented in this encounter Care Teams Truck Driver Flatbed Relationship Specialty Start Date End Date Maya Torres, SOAP MIXER [address] [phone] PCP - General Family Medicine 08/27/22 documented as of this encounter
--- OUTSIDE RECORDS SUMMARY | 2025-07-11 10:10 | XMS_ITS | Encounter Summary ---
Author Organization [employer] ([place], [place], [place], [place], [place]) Address [address] [place] [address] Care Team Providers Care Automotive Worker Name Role Phone Maya Torres Reji BELCHER Primary Care Provider +1- [phone] Encounter Details Date Type Department Care Team (Late st Contact Info) Description 06/16/2018 Transcribed Document [facility] [place] [facility] [place] [address] ProviderJean MD [address] [place], [place] [address] Social History Tobacco Use Types Packs/Day Years Used Date Smoking Tobacco: Never Assessed Sex and Gender Information Value Date Recorded Sex Assigned at Not on file Legal Sex Male 5:19 PM CDT Gender Identity Not on file Sexual Orientation Not on file documented as of this encounter Miscellaneous Notes * Cerner Conversion Note - Jean Sawant MD - 06/16/2018 8:43 AM SENIOR ONLINE MARKETING MANAGER Patient: ISATU MENDIETA Age: 67 Years Sex: [...] 84 CXR- NAD Electronically signed by Ileana, [facility] Conversion Clinical Athletic Instructor Cerner at 11/04/2022 3:24 PM CDT documented in this encounter Plan of Treatment Not on file documented as of this encounter Visit Diagnoses Not on filedocumented in this encounter Care Teams Automotive Worker Relationship Specialty Start Date End Date Maya Torres, CLAMSHELL OPERATOR [address] [phone] PCP - General Family Medicine 08/27/22 documented as of this encounter
--- OUTSIDE RECORDS SUMMARY | 2025-07-11 10:10 | XMS_ITS | Encounter Summary ---
Author Organization [employer] ([place], [place], [place], [place], [place]) Address [address] [place] [address] Care Team Providers Care Supervisor Machining Name Role Phone Maya Torres Reji BELCHER Primary Care Provider +1- [phone] Encounter Details Date Type Department Care Team (Late st Contact Info) Description 10/18/2020 Transcribed Document [facility] [place] [facility] [place] [place] [address] ProviderJean MD [address] [place] [address] Social History Tobacco Use Types [...] Sawant MD - 10/18/2020 9:38 PM CDT [facility] [place], [place] [id number] ISATU MENDIETA :1950 Visit Time:10/18/2020 Your Visit [...] to ED if symptoms worsen. Where: [facility] [address] [place] [address] Business (1) Follow Up with JACKIE LEONARD When Within 2 to 3 days Allergies No Known Medication Allergies Immunizations This Visit No Immunizations Found Medications What How Much When Instructions Next Dose codeine-guaifenesin (codeine-guaifenesin 6.3 mg-100 mg/ 5 mL oral liquid) 7.5 Milliliter(s) Oral Every 6 Hours as needed for for cough Pickup at [facility] dextromethorphan-guaifenesin (dextromethorphan-guaifenesin 5 mg-100 [...] 24HR 55 mcg/ inh nasal spray) 1 [place](s) Nasal Two Times A Day Pharmacy Information [facility]: [address] [place], [place] [id number] [phone] The home medications listed are only as [...] safe for you. General instructions ??? Take [id number] and prescription medicines only as told by [...] Reviewed: 01/04/2019 Vince Patient Education ?? 2020 [employer] Emergency Awareness and Preventative Care STROKE is [...] Assistance with quitting is available by contacting 4-052-BNWP-NOW. This is a free resource providing counseling, [...] was given the opportunity to ask questions. Patient/Lathe Sander Name: Patient/Lathe Sander Signature: Relationship to Patient: Clinician/Hospital Lathe Sander Signature: Please Provide a Telephone Number Where You Can Be Reached: Is it Permissible To Leave a Message? Date: documented in this encounter Plan of Treatment Not on file documented as of this encounter Visit Diagnoses Not on filedocumented in this encounter Care Teams Supervisor Machining Relationship Specialty Start Date End Date Maya Torres, SIMI [address] [phone] PCP - General Family Medicine 08/27/22 documented as of this encounter
--- OUTSIDE RECORDS SUMMARY | 2025-07-11 10:10 | XMS_ITS | Patient Health Record ---
Author Organization [facility] Address [address] [facility] [address] [place] [address] Care Team Providers Care Behavioral Health Care Coordinator Name Role Phone Jerome Morrissey II Unavailable Michael COLEMAN -Issa Barry MD Unavailable [phone] Allergies No Known Allergies Reason For Referral [...] Status Risk Notes Problem Chronic pain syndrome (689959908) Chronic pain syndrome (G89.4) Active confirmed Problem Complex regional pain syndrome of lower limb (disorder) (308063941) Complex regional pain syndrome I of unspecified lower limb (G90.529) Active confirmed Problem Cervical spondylosis without myelopathy (962870607) Other spondylosis with radiculopathy, cervical region (M47.22) Active confirmed Problem Cervical spondylosis without myelopathy (469473536) Spondylosis without myelopathy or radiculopathy, cervical region (M47.812) Active confirmed Problem Lumbosacral spondylosis without myelopathy (57095254) Spondylosis without myelopathy or radiculopathy, lumbar region (M47.816) Active confirmed Problem Cervicalgia (08555085) Cervicalgia (M54.2) Active confirmed Problem Post-laminectom y syndrome (88163583) Postlaminectomy syndrome, not elsewhere classified (M96.1) Active confirmed Problem Long-term current use of drug therapy (349838663) Other remote computer terminal operator (current) drug therapy (Z79.899) Active confirmed Problem Lumbar spondylosis (065662641) lumbar spondylosis (M47.816) Active confirmed Vital Signs Heart Rate 80 /min 10/19/2024 Blood pressure diastolic 75 mm Hg 10/19/2024 Height 69 in 10/19/2024 Blood pressure systolic 158 mm Hg 10/19/2024 Weight 250 lbs 10/19/2024 BMI 36.91 kg/m2 10/19/2024 Encounters Encounter Location Date Provider Diagnosis [facility] [address] [place] [address] [place] [address] 10/19/2024 Jerome Morrissey Other [facility] (current) drug therapy [...] once again for the long-term. 10/19/2024 Other remote computer terminal operator (current) drug therapy (ICD-10 - Z79.899) 04/02/2024 1. Discontinue [place] 5/325mg QD PRN 2. FU PRn Mr. [...] Coverage End [place] [address] [place] [address] [id number] Stephane Mendieta Self - patient is the insured 8 [employer] Medicare Supplement [address] [place] [phone] [id number] Stephane Mendieta Self - patient is the insured 8 Medical (General) History Medical History History ICD Code anxiety / Managed by PCP Surgical History Surgery Date(Month/Year) Back surgery / Dr. Rodriguez 09/2019 right knee replacement
--- OUTSIDE RECORDS SUMMARY | 2025-07-11 10:10 | XMS_ITS | Encounter Summary ---
Author Organization [employer] ([place], [place], [place], [place], [place]) Address [address] [place] [address] Care Team Providers Care Barrel Bander Name Role Phone Maya Torres Reji BELCHER Primary Care Provider +1- [phone] Encounter Details Date Type Department Care Team (Late st Contact Info) Description 10/18/2020 Transcribed Document [facility] [place] [address] [place] [address] ProviderJean MD [address] [place], [place] [address] Social History Tobacco Use Types Packs/Day Years Used Date Smoking Tobacco: Never Assessed Sex and Gender Information Value Date Recorded Sex Assigned at Not on file Legal Sex Male 5:19 PM CDT Gender Identity Not on file Sexual Orientation Not on file documented as of this encounter Miscellaneous Notes * [employer]ner Conversion Note - Jean ProviderMD - 10/18/2020 7:05 PM CDT [place] Suicide Severity Rating Scale (C-SSRS) Entered On: 10/18/2020 19:42 EDT Performed On: 10/18/2020 19:41 EDT by Dee Ocampo RN [place] Suicide Severity Rating Scale (C-SSRS) CSSRS Past [...] filedocumented in this encounter Care Teams Barrel Bander Relationship Specialty Start Date End Date Maya Torres, AIR EXPORT OPERATIONS AGENT [address] [phone] PCP - General Family Medicine 08/27/22 documented as of this encounter
--- OUTSIDE RECORDS SUMMARY | 2025-07-11 10:10 | XMS_ITS | Data Portability ---
Author Organization [facility] BROOKS GutierrezS DYER CLOSED Address [address] [place] [address] Care Team Providers Care Biological Inspector Name Role Phone HERIBERTO PATEL Orthopedic Surgeon [phone] SHARMIN WHITAKER Primary Care Provider [phone] Assessment No assessment recorded. Plan of Treatment Reminders Order Date Submit Date Provider Last Modified By Organization Details Last Modified Time Details Appointments DERM ESTABLISH ED 2025 10:30A Nancy GONZALEZ MD Not available Not available Not available Lab surgical pathology study - Excision: Biopsy proven BCC check for clear margins 2024 05 025 [facility], [address] [place] [address], [phone], 11/22/2024 12:08:26 Referral None recorded. Procedures None recorded. Surgeries None recorded. Imaging None recorded. Medication Orders None recorded. Patient TargetsNo targets recorded. Patient InstructionsNo instructions recorded. Reason for Referral None Reported. Results Created Date Observation Date Name Description Value Unit Range Abnormal Flag Note LastModifiedBy Organization Detail LastModifiedTime 10/30/19 25 10/29/2024 SURGI MIRELLA surgical SEE BELOW abnormal [place] topat holog y Repor t NAME: ISATU [...] Out Date: 10/31 10:38 1 Not Available [facility] [address], [place], [address], 10/31/2024 10:39:11 11/21/19 25 11/20/2024 SURGI MIRELLA surgical SEE BELOW abnormal [place] topat holog y Repor t NAME: LANCE [...] BASAL CELL CARCI NOMA Comme nt: The ed ns are free of tumor . Subcu [...] Out Date: 11/22 12:08 1 Not Available [facility] [address] [place] [address], [phone], 11/22/2024 12:08:26 Result Notes None recorded. Problems No Known Problems Procedures Surgical History Date Name Laterality Status Provider Name and Address Organization Details Recorded Time 12/12/19 25 Suture/Staple removal completed Henny Kremlin [facility] 12/11/2024 07:41:19 11/21/19 25 DAK - Lesion Excision, [place]; trunk,arms,legs completed NUVIA SIDDIQUI JR, MD [address] [place] [address], [phone], [facility] 11/20/2024 14:00:58 10/30/19 25 DAK - Biopsy, Tangential completed Janna Zhou [facility] 10/29/2024 10:31:00 12/26/19 24 Biopsy Skin Lesion; Tangential completed Kelsey RAMEY - [facility] 12/26/2023 11:19:57 12/26/19 24 Destruction Premalignant Lesion(s) completed Kelsey RAMEY - [facility] 12/26/2023 11:19:17 06/23/20 23 Biopsy Skin Lesion; Tangential completed Kelsey RAMEY - [facility] 06/23/2023 11:49:07 06/23/20 23 Destruction Premalignant Lesion(s) completed Kelseytiny RAMEY - [facility] 06/23/2023 11:45:10 03/24/20 18 Stress Test - Echo Dobutamine completed GILDA LAGUNAS MD [address] [place], [address], [facility] 03/24/2018 12:52:45 03/24/20 18 Echocardiogram - Dobutamine Stress Test completed GILDA LAGUNAS MD [address] [place], [id number] [place] [address] 03/24/2018 12:42:39 Hernia Repair completed Jazmin Short [facility] 02/14/2018 10:09:44 Other completed Jazmin Short [place] [facility] 02/14/2018 10:10:04 Other completed Jazmin Short [place] [facility] 02/14/2018 10:10:14 Other completed Jazmin Short [place] 02/14/2018 10:10:30 Other completed Jazmin Short [place] 02/14/2018 10:10:35 Other completed Jazmin Short [place] 03/03/2018 10:09:36 Imaging Results None [...] Updated DateTime 11/20/2024 131/87 mm[Hg] Henny Tijerina [facility] 11/20/2024 11:58:18 Social History Question Answer Notes LastModified by Organizat ion Details LastModified Time Tobacco Smoking Status [facility]/14/2018 10:08:49 When Did You Quit Smoking? 16+yearssince lastcigarette [email or web address] Information not available 03/03/2018 Live Alone Or With Others? With Others [email or web address] Information not available 03/03/2018 Marital Status [email or web address] Informatio n not available 03/03/2018 What Was The Date Of Your Most Recent Tobacco Screening? 03/03/2018 Information n ot available 09/04/2019 Sex: Male Functional Status Question Answer Note LastModified by Organizat ion Details LastModified Time What is your level of alcohol consumption? None Information not available 02/14/2018 What is your occupation? [employer] [email or web address] Information not available 03/03/2018 Mental Status None recorded. Family History Relationship Description Onset Age of this Age Resolved Age Notes LastModified by Organization Details LastModified Time Unspecified Relation Family history of malignant neoplasm [email or web address] Not available 2017 10:08:14 Unspecified Relation Hypertensive disorder [email or web address] Not available 2017 10:08:34 Unspecified Relation Arthritis Not available 2017 10:08:43 Medical History Condition Response Arthritis Y Basal Cell Carcinoma Y Past Encounters Encounter ID Performer Location Encounter Start Date Encounter Closed Date Diagnosis/Indication Diagnosis SNOMED-CT Code Diagnosis ICD10 Code Diagnosis IMO Codes Diagnosis Note [id number] DEE FERNÁNDEZ MD CARDIOLOG Y [facility] CLOSED [address] [place] [address] 03/03/2018 09:58:12 03/03/2018 11:04:15 Atherosclerosis of arteries of the extremities 86717151 I70.209 The patient has normal lower extremity pulses and essentiall y normal CORY. With findings of vascular calcificat ion recommend considerat ion for addition of statins and low-dose aspirin to his regimen. No further testing of his lower extremitie s is indicated at this time. Preoperati ve cardiovascular examination [id number] Z01.810 The patient requires knee replacemen t. He has no evidence of aortic stenosis, angina or CHF and therefore I would anticipate a low cardiovasc ular risk. In light of the presence of atheroscle rosis, I suggest a preoperati ve dobutamine stress echocardio gram. Results will be forwarded to his orthopedic surgeon once available. [id number] GILDA LAGUNAS MD [facility] CLOSED [address] [facility] [place] [address] 03/24/2018 08:18:43 03/31/2018 15:16:10 Coronary arteriosclerosis in cheesh-na artery 5777968480 107 I25.10 [id number] GILDA LAGUNAS MD [facility] [address] [facility] [address] [place] [address] 03/24/2018 08:19:09 03/24/2018 13:23:26 Coronary arteriosclerosis 09851370 I25.10 [id number] GIAN Espino, PLAQUE MAKER DAK [facility] [address] [place] [address] 06/23/2023 10:45:12 06/23/2023 11:56:59 History of malignant neoplasm of skin 263292582 Z85.828 Last skin cancer - 07/2022 - No evidence of recurrence today- Call with any worrisome lesions or if treated lesions return- Return at regular intervals for skin exam as recommende d Multiple b enign melanocytic nevi 099338730 D22.5 - Benign moles seen on exam [...] changing or worrisome lesions Seborrheic keratosis 394 508671 L82.1 - Benign overgrowth s of skin - Hereditary Senile angioma 9213626 I 78.1 - Benign blood vessel growths - Hereditary Solar lentigo 15244676 L 81.4 - Benign brown spots - Sun-induce d Actinic keratosis 811656 007 L57.0 Actinic keratoses are precancero us lesions that may progress to squamous cell carcinoma if untreated. UV light and genetics may increase risk. Treated lesions should blister, scab over, and heal within a few weeks. If treated lesion(s) does not resolve within 1-2 months, patient agrees to follow up for re-evaluat ion. Neoplasm o f uncertain behavior of skin 62641976 D48.5 Recommend blade biopsy. Risks, benefit, and procedure discussed with patient. Consent obtained. [id number] RINKU KELLY MD [address] [address] 08/16/2023 08:26:04 08/19/2023 14:47:05 [id number] GIAN Espino APRN [address] [address] 12/26/2023 10:46:06 12/26/2023 11:27:25 History of malignant neoplasm of skin 381452998 Z85.828 last skin cancer - 06/2023 - No evidence of recurrence today- Call with any worrisome lesions or if treated lesions return- Return at regular intervals for skin exam as recommende d Multiple b enign melanocytic nevi 827933359 D22.5 - Benign moles seen on exam [...] changing or worrisome lesions Seborrheic keratosis 394 361891 L82.1 - Benign overgrowth s of skin - Hereditary Senile angioma 9718173 I 78.1 - Benign blood vessel growths - Hereditary Solar lentigo 14252709 L 81.4 - Benign brown spots - Sun-induce d Neoplasm o f uncertain behavior of skin 97626542 D48.5 Recommend blade biopsy. Risks, benefit, and [...] agrees to follow up for re-evaluat ion. [id number] RINKU KELLY MD [address] [address] 02/14/2024 08:21:31 02/16/2024 14:44:35 [id number] RINKU KELLY MD [address] [place] [address] 03/14/2024 09:34:47 03/22/2024 04:26:11 Postoperative visit 610946341 Z09 Scar 604123525 L90.5 History of malignant basal cell neoplasm of skin 806543685 Z85.828 No evidence of recurrence . Discussed risk of recurrence and new skin cancers, so regular self exam and profession al skin checks are recommende d. Sun protection with broad spectrum SPF 30 sunscreen and broad-brim med hat is recommende d. Sun protection with SPF 30 broad spectrum sunscreen and protective gear discussed. [id number] GIAN Espino APRN [address] [address] 10/29/2024 09:42:30 10/29/2024 10:46:53 History of malignant neoplasm of skin 250164891 Z85.828 Most recent skin cancer 12/2023 - No evidence of recurrence today- Call with any worrisome lesions or if treated lesions return- Return at regular intervals for skin exam as recommende d Multiple b enign melanocytic nevi 520297320 D22.5 - Benign moles seen on exam [...] changing or worrisome lesions Seborrheic keratosis 394 507394 L82.1 - Benign overgrowth s of skin - Hereditary Senile angioma 0745772 I 78.1 - Benign blood vessel growths - Hereditary Solar lentigo 94501483 L 81.4 - Benign brown spots - Sun-induce d Neoplasm o f uncertain behavior of skin 53235498 D48.5 Recommend blade biopsy. Risks, benefit, and procedure discussed with patient. Consent obtained. Discussed the biopsy only takes the top layer of the lesion for testing. This does NOT treat the skin cancer if it is one. Advised they would need to return for more treatment given the type and depth of the skin cancer when the results come in. [id number] MD DANNY HINKLE JR [place] [address] [facility] [place] [address] 11/13/2024 09:51:03 11/13/2024 12:10:30 [id number] MD DANNY HINKLE JR [place] [address] [facility] [place] [address] 11/20/2024 11:19:12 11/20/2024 13:33:38 Basal cell carcinoma of upper extremity 310624999 C44.612 [id number] MD DANNY HINKLE JR [place] [address] [place] [address] 11/27/2024 10:53:15 11/27/2024 14:06:05 [id number] NUVIA SIDDIQUI JR, MD [place] [address] [place] [address] 12/04/2024 09:54:33 12/04/2024 11:37:08 [id number] NUVIA SIDDIQUI JR, MD [place] [address] [place] [address] 12/11/2024 09:21:24 12/11/2024 09:46:54 Scar 402372797 L90.5 Wound in appropriat e stages of [...] (MEDICARE SUPPLEMENT) PLAN G Isatu Marta Anam [id number] Isatu Marta Anam 04/26/2025 1 [place] Isatu Marta Anam [id number] Isatu Mendieta 08/05/2023 2 [employer] Isatu Mendieta [id number] Isatu Mendieta 08/05/2023 1 [place] [id number] Isatu Mendieta [id number] Isatu Mendieta Notes Date Note Type Note Provider Name and Address Organization Details Recorded Time 11/13/2024 text/html ROS as noted in the [facility] Patient presents today for an excision to right posterior base of neck for treatment of BCC. Procedure changed to Mohs procedure. Not Available [employer] 11/19/2024 08:16:02 11/20/2024 text/html ROS as noted in the [facility] Patient presents today for an excision to Right Dorsal Forearm and Right Radial Forearm for treatment of biopsy proven BCC. NUVIA SIDDIQUI JR, MD [address] [place] [address], [phone], [facility] 11/20/2024 14:03:55 12/11/2024 text/html ROS as noted in the HPI Patient present today for fourteen day staple removal following Excision procedure on 11/27/2024 toLeft Midline Temporal Scalp for treatment of BCC. NUVIA SIDDIQUI JR, MD [address] [place] [address], [phone], [facility] 12/11/2024 10:11:03
--- OUTSIDE RECORDS SUMMARY | 2025-07-11 10:10 | XMS_ITS | Encounter Summary ---
Author Organization [employer] ([place], [place], [place], [place], [place]) Address [address] [place] [address] Care Team Providers Care Underwater Photographer Name Role Phone Maya Torres Reji BELCHER Primary Care Provider [phone] Encounter Details Date Type Department Care Team (Late st Contact Info) Description 10/18/2020 Transcribed Document [facility] Family Medicine [address] [place] [address] ProviderJean MD [address] [place] [address] Social History Tobacco Use Types [...] : Low risk (0) Broset Interventions : [place] precautions for safety used Dee Ocampo, HOLA - 10/18/2020 19:41 EDT Electronically signed by Ileana [facility] Conversion Material Planner Cerner at 11/04/2022 3:34 PM CDT documented in this encounter Plan of Treatment Not on file documented as of this encounter Visit Diagnoses Not on filedocumented in this encounter Care Teams Underwater Photographer Relationship Specialty Start Date End Date Maya Torres, STAMP REDEMPTION CLERK [address] [phone] PCP - General Family Medicine 08/27/22 documented as of this encounter
--- OUTSIDE RECORDS SUMMARY | 2025-07-11 10:10 | XMS_ITS | Data Portability ---
Author Organization [email or web address], [facility] Address [address] [place] [address] Assessment No assessment recorded. Plan of Treatment Reminders Order Date Submit Date Provider Last Modified By Organization Details Last Modified Time Details Appointments SAME DAY ACCESS 2025 02:30P Nancy Torres APRN Not available Not available Not available FOLLOW UP 2025 10:30A M Stephanie Torres APRN Not available Not available Not available Lab lipid panel, serum 2024 025 [facility] [address] [place], [address], 03/09/2025 08:10:55 CBC w/ auto diff 2024 025 [place] [address] [place], [address], 03/09/2025 08:10:54 TSH + free T4, serum 2024 025 [place] [place] [address] [place], [address], 03/09/2025 08:10:54 CMP, serum or plasma 2024 025 [place] [facility] [address] [place], [address], 03/09/2025 08:10:55 HbA1c (hemoglob in A1c), blood 2024 025 [facility]), [address] [place], [address], 03/09/2025 08:10:56 vitamin D, 25-hydrox y, total, serum 2024 025 [facility]), [address] [place], [address], 03/09/2025 08:10:57 PSA, total, serum or plasma 2024 025 [facility]), [address] [place], [address], 03/09/2025 08:10:56 cobalamin and folate panel, serum 2024 025 [facility]), [address] [place], [address], 03/09/2025 08:10:56 drug screen, 14 drugs (detect ed), urine - Lorazepam last taken this AM. 2024 025 [facility]), [address] [place], [address], 10/04/2024 14:08:41 Referral None recorded. Procedures None recorded. Surgeries None recorded. Imaging None recorded. Medication Orders lorazepam 1 mg tablet 2024 [facility] (Now [facility]), [address], [place], [address], 05/09/2025 18:00:59 amoxicill in 875 mg-potass ium clavulana te 125 mg tablet 2024 [facility], [address] [place] [address], [address], 03/25/2025 05:01:32 duloxetin e 60 mg capsule,d elayed release 2024 [facility], [address] [facility], [place], [address], 02/01/2025 12:20:54 cetirizin e 10 mg tablet 2024 025 [facility], [address] [facility], [place], [address], 02/01/2025 12:20:59 fluticaso ne propionat e 50 mcg/actua tion nasal spray,kvng pension 2024 025 [facility], [address] [facility], [place], [address], 02/01/2025 12:20:55 finasteri de 5 mg tablet 2024 025 [facility], [address] [facility], [place], [address], 02/01/2025 12:20:56 tamsulosi n 0.4 mg capsule 2024 025 [facility], [address] [facility], [place], [address], 02/01/2025 12:20:55 prednison e 10 mg tablet 2024 025 [facility], [address] [facility], [place], [address], 02/01/2025 12:20:58 ipratropi um 0.5 mg-albute rol 3 mg (2.5 mg base)/3 mL nebulizat ion soln 2024 025 [facility], [address] [facility], [place], [address], 02/01/2025 12:20:58 prednison e 5 mg tablet 2024 025 [facility], [address] [facility], [place], [address], 02/01/2025 10:52:54 lorazepam 1 mg tablet 2024 025 [facility], [address] , [place], [address], 12/03/2024 14:16:48 pantopraz ole 40 mg tablet,de layed release 2024 025 [facility], [address] , [place], [address], 09/27/2024 11:49:11 Patient TargetsNo targets recorded. Patient Instructions Encounter Date Encounter Id Patient Instructions Last Modified By Organization Details Last Modified Time 09/27/2024 [id number] controlled substance agreement* [email or web address] Not available 09/27/2024 11:49:09 02/01/2025 [id number] learning about healthy weight [email or web address] Not available 02/01/2025 18:33:18 Reason for Referral [...] mirella consu ltati on, pleas e call [phone]. ===== ===== ===== ===== ===== ===== ===== ===== ===== ===== ===== ===== ===== === Not Available [facility] ([facility]) [address] [place], [address], 10/04/2024 14:08:41 09/28/19 25 10/04/2024 COMPL IANCE DRUG CHARISSA SIS, UR pdf . Not Available [facility] ([facility]) [address] [place], [address], 10/04/2024 14:08:41 03/08/20 25 03/09/2025 TSH+F REE T4 TSH 3.680 uIU/m L 0.450- 4.500 normal Not Available [facility] ([facility]) [address] [facility], [place], [address], 03/09/2025 08:10:54 03/08/20 25 03/09/2025 TSH+F REE T4 T4,free(dire ct) 0.89 NG/dL 0.82-1 .77 normal Not Available [facility] ([facility]) [address] [place], [address], 03/09/2025 08:10:54 03/08/20 25 03/09/2025 CBC WITH DIFFE RENTI AL/PL ATELE T WBC 8.4 x10e3 /uL 3.4-10 .8 normal Not Available [facility] ([facility]) [address] [place], [address], 03/09/2025 08:10:54 03/08/20 25 03/09/2025 CBC WITH DIFFE RENTI AL/PL ATELE T RBC 3.97 x10e6 /uL 4.14-5 .80 below low normal Not Available [facility] ([facility]) [address] [place], [address], 03/09/2025 08:10:54 03/08/20 25 03/09/2025 CBC WITH DIFFE RENTI AL/PL ATELE T hemoglobin 11.1 g/dL 13.0-1 7.7 below low normal Not Available [facility] ([facility]) [address] [place], [address], 03/09/2025 08:10:54 03/08/20 25 03/09/2025 CBC WITH DIFFE RENTI AL/PL ATELE T hematocrit 35.3 % 37.5-5 1.0 below low normal Not Available [facility] ([facility]) [address] [place], [address], 03/09/2025 08:10:54 03/08/2003/09/2025 CBC WITH DIFFE RENTI AL/PL ATELE T MCV 89 fL 79-97 normal Not Available [facility] ([facility]) [address] [place], [address], 03/09/2025 08:10:54 03/08/20 25 03/09/2025 CBC WITH DIFFE RENTI AL/PL ATELE T MCH 28.0 pg 26.6-3 3.0 normal Not Available [facility] ([facility]) [address] [place], [address], 03/09/2025 08:10:54 03/08/20 25 03/09/2025 CBC WITH DIFFE RENTI AL/PL ATELE T MCHC 31.4 g/dL 31.5-3 5.7 below low normal Not Available [facility] ([facility]) [address] [place], [address], 03/09/2025 08:10:54 03/08/20 25 03/09/2025 CBC WITH DIFFE RENTI AL/PL ATELE T RDW 14.4 % 11.6-1 5.4 Not Available [facility] ([facility]) [address] [place], [address], 03/09/2025 08:10:54 03/08/20 25 03/09/2025 CBC WITH DIFFE RENTI AL/PL ATELE T platelets 238 x10e3 /uL 150-45 0 normal Not Available [facility] ([facility]) [address] [place], [address], 03/09/2025 08:10:54 03/08/20 25 03/09/2025 CBC WITH DIFFE RENTI AL/PL ATELE T neutrophils 68 % not estab. normal Not Available [facility] ([facility]) [address] [place], [address], 03/09/2025 08:10:54 03/08/20 25 03/09/2025 CBC WITH DIFFE RENTI AL/PL ATELE T lymphs 18 % not estab. normal Not Available [facility] ([facility]) [address] [place], [address], 03/09/2025 08:10:54 03/08/20 25 03/09/2025 CBC WITH DIFFE RENTI AL/PL ATELE T monocytes 9 % not estab. normal Not Available [facility] ([facility]) [address] [place], [address], 03/09/2025 08:10:54 03/08/20 25 03/09/2025 CBC WITH DIFFE RENTI AL/PL ATELE T eos 3 % not estab. normal Not Available [facility] ([facility]) [address] [place], [address], 03/09/2025 08:10:54 03/08/20 25 03/09/2025 CBC WITH DIFFE RENTI AL/PL ATELE T basos 1 % not estab. normal Not Available [facility] ([facility]) [address] [place], [address], 03/09/2025 08:10:54 03/08/20 25 03/09/2025 CBC WITH DIFFE RENTI AL/PL ATELE T immature cells MOLD TOOLER Not Available [facility] ([facility]) [address] [facility], [address], 03/09/2025 08:10:54 03/08/20 25 03/09/2025 CBC WITH DIFFE RENTI AL/PL ATELE T neutrophils (absolute) 5.9 x10e3 /uL 1.4-7. 0 normal Not Available [facility] ([facility]) [address] [facility], [place], [address], 03/09/2025 08:10:54 03/08/20 25 03/09/2025 CBC WITH DIFFE RENTI AL/PL ATELE T lymphs (absolute) 1.5 x10e3 /uL 0.7-3. 1 normal Not Available [facility] ([facility]) [address] [facility], [place], [address], 03/09/2025 08:10:54 03/08/20 25 03/09/2025 CBC WITH DIFFE RENTI AL/PL ATELE T monocytes(ab solute) 0.8 x10e3 /uL 0.1-0. 9 normal Not Available [facility] ([facility]) [address] [place], [address], 03/09/2025 08:10:54 03/08/20 25 03/09/2025 CBC WITH DIFFE RENTI AL/PL ATELE T eos (absolute) 0.2 x10e3 /uL 0.0-0. 4 normal Not Available [facility] ([facility]) [address] [facility], [place], [address], 03/09/2025 08:10:54 03/08/20 25 03/09/2025 CBC WITH DIFFE RENTI AL/PL ATELE T baso (absolute) 0.1 x10e3 /uL 0.0-0. 2 normal Not Available [facility] ([facility]) [address] [place], [address], 03/09/2025 08:10:54 03/08/20 25 03/09/2025 CBC WITH DIFFE RENTI AL/PL ATELE T immature granulocytes 1 % not estab. Not Available [facility] ([facility]) [address] [facility], [place], [address], 03/09/2025 08:10:54 03/08/20 25 03/09/2025 CBC WITH DIFFE RENTI AL/PL ATELE T immature grans (abs) 0.1 x10e3 /uL 0.0-0. 1 Not Available [facility] ([facility]) [address] [facility], [place], [address], 03/09/2025 08:10:54 03/08/20 25 03/09/2025 CBC WITH DIFFE RENTI AL/PL ATELE T NRBC MOLD TOOLER Not Available [facility] ([facility]) [address] [facility], [place], [address], 03/09/2025 08:10:54 03/08/20 25 03/09/2025 CBC WITH DIFFE RENTI AL/PL ATELE T hematology comments: MOLD TOOLER Not Available [facility] ([facility]) [address] [facility], [place], [address], 03/09/2025 08:10:54 03/08/20 25 03/09/2025 COMP. METAB OLIC PANEL (14) glucose 84 mg/dL 70-99 normal Not Available [facility] ([facility]) [address] [place], [address], 03/09/2025 08:10:55 03/08/20 25 03/09/2025 COMP. METAB OLIC PANEL (14) BUN 12 mg/dL 8-27 normal Not Available [facility] ([facility]) [address] [place], [address], 03/09/2025 08:10:55 03/08/20 25 03/09/2025 COMP. METAB OLIC PANEL (14) creatinine 0.89 mg/dL 0.76-1 .27 normal Not Available [facility] ([facility]) [address] [facility], [place], [address], 03/09/2025 08:10:55 03/08/20 25 03/09/2025 COMP. METAB OLIC PANEL (14) eGFR 91 mL/mi n/1.7 3 >59 normal Not Available [facility] ([facility]) [address] [place], [address], 03/09/2025 08:10:55 03/08/20 25 03/09/2025 COMP. METAB OLIC PANEL (14) BUN/creatini ne ratio 13 10-24 normal Not Available [facility] ([facility]) [address] [place], [address], 03/09/2025 08:10:55 03/08/20 25 03/09/2025 COMP. METAB OLIC PANEL (14) sodium 139 mmol/ L 134-14 4 normal Not Available [facility] ([facility]) [address] [place], [address], 03/09/2025 08:10:55 03/08/20 25 03/09/2025 COMP. METAB OLIC PANEL (14) potassium 3.5 mmol/ L 3.5-5. 2 normal Not Available [facility] ([facility]) [address] [place], [address], 03/09/2025 08:10:55 03/08/20 25 03/09/2025 COMP. METAB OLIC PANEL (14) chloride 103 mmol/ L 96-106 normal Not Available [facility] ([facility]) [address] [place], [address], 03/09/2025 08:10:55 03/08/20 25 03/09/2025 COMP. METAB OLIC PANEL (14) carbon dioxide, total 21 mmol/ L 20-29 normal Not Available [facility] ([facility]) [address] [place], [address], 03/09/2025 08:10:55 03/08/20 25 03/09/2025 COMP. METAB OLIC PANEL (14) calcium 8.8 mg/dL 8.6-10 .2 normal Not Available [facility] ([facility]) [address] [place], [address], 03/09/2025 08:10:55 03/08/20 25 03/09/2025 COMP. METAB OLIC PANEL (14) protein, total 6.7 g/dL 6.0-8. 5 normal Not Available [facility] ([facility]) [address] [place], [address], 03/09/2025 08:10:55 03/08/20 25 03/09/2025 COMP. METAB OLIC PANEL (14) albumin 4.2 g/dL 3.8-4. 8 normal Not Available [facility] ([facility]) [address] [place], [address], 03/09/2025 08:10:55 03/08/20 25 03/09/2025 COMP. METAB OLIC PANEL (14) globulin, total 2.5 g/dL 1.5-4. 5 Not Available [facility] ([facility]) [address] [place], [address], 03/09/2025 08:10:55 03/08/20 25 03/09/2025 COMP. METAB OLIC PANEL (14) bilirubin, total 0.6 mg/dL 0.0-1. 2 normal Not Available [facility] ([facility]) [address] [place], [address], 03/09/2025 08:10:55 03/08/20 25 03/09/2025 COMP. METAB OLIC PANEL (14) alkaline phosphatase 61 IU/L 44-121 normal Not Available [facility] ([facility]) [address] [place], [address], 03/09/2025 08:10:55 03/08/20 25 03/09/2025 COMP. METAB OLIC PANEL (14) AST (SGOT) 18 IU/L 0-40 normal Not Available [facility] ([facility]) [address] [place], [address], 03/09/2025 08:10:55 03/08/20 25 03/09/2025 COMP. METAB OLIC PANEL (14) ALT (SGPT) 14 IU/L 0-44 normal Not Available [facility] ([facility]) [address] [place], [address], 03/09/2025 08:10:55 03/08/20 25 03/09/2025 LIPID PANEL cholesterol, total 144 mg/dL 100-19 9 normal Not Available [facility] ([facility]) [address] [place], [address], 03/09/2025 08:10:55 03/08/20 25 03/09/2025 LIPID PANEL triglyceride s 165 mg/dL 0-149 above high normal Not Available [facility] ([facility]) [address] [place], [address], 03/09/2025 08:10:55 03/08/20 25 03/09/2025 LIPID PANEL HDL cholesterol 40 mg/dL >39 normal Not Available [facility] ([facility]) [address] [place], [address], 03/09/2025 08:10:55 03/08/20 25 03/09/2025 LIPID PANEL VLDL cholesterol mirella 28 mg/dL 5-40 Not Available [facility] ([facility]) [address] [place], [address], 03/09/2025 08:10:55 03/08/20 25 03/09/2025 LIPID PANEL LDL chol calc ([facility]) 76 mg/dL 0-99 Not Available [facility] ([facility]) [address] [place], [address], 03/09/2025 08:10:55 03/08/2003/09/2025 LIPID PANEL LDL calc comment: MOLD TOOLER Not Available [facility] ([facility]) [address] [facility], [place], [address], 03/09/2025 08:10:55 03/08/20 25 03/09/2025 VITAM IN B12 AND FOLAT E vitamin B12 399 pg/mL 232-12 45 normal Not Available [facility] ([facility]) [address] [facility], [place], [address], 03/09/2025 08:10:56 03/08/2003/09/2025 VITAM IN B12 AND FOLAT E folate (folic acid), serum 5.0 NG/mL >3.0 normal A serum folat e scar ntrat ion of less than 3.1 ng/mL is consi dered to repre sent clini mirella defic iency . Not Available [facility] ([facility]) [address] [facility], [place], [address], 03/09/2025 08:10:56 03/08/2003/09/2025 HEMOG LOBIN A1C hemoglobin A1C 5.7 % 4.8-5. 6 above high normal Predi abete s: 5.7 - 6.4 Diabe sami: >6.4 Glyce mathew contr ol for adult s with diabe sami: <7.0 Not Available [facility] ([facility]) [address] [facility], [place], [address], 03/09/2025 08:10:56 03/08/2003/09/2025 PROST ATE-S PECIF IC [...] of jadyn restrepo se. Not Available [facility] ([facility]) [address] [facility], [place], [address], 03/09/2025 08:10:56 03/08/2003/09/2025 VITAM IN D, 25-HY [...] Evelio amaya [place]: [facility] [employer] . 2. Myah rose MF, Romana laurent [place], [place] off-F errar i RODRIGES, et al. Evalu ation , treat ment, and preve ntion of vitam in D defic iency : an Endoc rine Socie ty clini mirella pract ice guide line. JCEM. 2010; 96(7) :1911 -30. Not Available [facility] ([facility]) [address] [facility], [place], [address], 03/09/2025 08:10:57 Result Notes None recorded. Problems Name Problem SNOMED Code Status Onset Date Resolution Date Notes Provider Name and Address Organization Details Recorded Time Generali zed anxiety disorder [id number] Completed 201609/21/2016 Problem Code: F41.1; Problem Code Type: ICD-10; Maya Torres, [employer] [address] [place], [address] , [employer] 3 11:40:35 Allergic rhinitis caused by pollen 00942691 Completed 201610/08/2016 Problem Code: J30.1; Problem Code Type: ICD-10; Not Available [facility] 2 21:50:51 Pain in right knee Completed 201608/23/2016 Problem Code: M25.561; Problem Code Type: ICD-10; Not Available [facility] 2 21:50:53 Pain in left knee Completed 201608/23/2016 Problem Code: M25.562; Problem Code Type: ICD-10; Not Available [facility] 2 21:51:03 Knee pain Completed 201608/23/2016 Problem Code: 719.46; Problem Code Type: ICD-9; JUAN ANTONIO mortensen, [employer] 2 11:16:05 Acute sinusiti s 18539951 Completed 201610/05/2016 Problem Code: J01.90; Problem Code Type: ICD-10; JUAN ANTONIO mortensen, [employer] 2 11:16:05 Pain in right knee Completed 201611/04/2016 Problem Code: M25.561; Problem Code Type: ICD-10; Not Available [facility] 2 21:50:53 Prepatel lar bursitis of right knee [id number] 9100 Completed 201612/20/2016 Not Available [facility] 2 21:50:54 Knee pain Completed 201611/04/2016 Problem Code: 719.46; Problem Code Type: ICD-9; JUAN ANTONIO mortensen [employer] 2 11:16:05 Prepatel lar bursitis 89270952 Completed 201612/20/2016 Problem Code: 726.65; Problem Code Type: ICD-9; Not Available [facility] 2 21:51:17 Pain in right knee Completed 201612/13/2016 Problem Code: M25.561; Problem Code Type: ICD-10; Not Available [facility] 2 21:51:02 Knee pain Completed 201612/13/2016 Problem Code: 719.46; Problem Code Type: ICD-9; JUAN ANTONIO mortensen [employer] 2 11:16:05 Allergic rhinitis 63549408 Completed 201603/11/2017 Problem Code: J30.9; Problem Code Type: ICD-10; Not Available [facility] 2 21:50:51 Allergic rhinitis 42510145 Completed 201605/06/2017 Problem Code: J30.9; Problem Code Type: ICD-10; Not Available [facility] 2 21:50:51 Allergic rhinitis caused by pollen 45152902 Completed 201608/02/2017 Problem Code: J30.1; Problem Code Type: ICD-10; Not Available [facility] 2 21:50:51 Hyperten sive disorder 27813833 Completed 201708/30/2017 Problem Code: I10; Problem Code Type: ICD-10; Not Available [facility] 2 21:50:50 Acute sinusiti s 58144303 Completed 201708/12/2017 Problem Code: J01.90; Problem Code Type: ICD-10; JUAN ANTONIO mortensen [employer] 2 11:16:05 Benign essentia l hyperten marquis 2045656 Completed 201701/17/2018 Problem Code: 401.1; Problem Code Type: ICD-9; Not Available [facility] 2 21:51:06 Tinea pedis 2821961 Completed 201711/25/2017 Problem Code: B35.3; Problem Code Type: ICD-10; Not Available [facility] 2 21:50:48 Neck pain 43141745 Completed 201711/25/2017 Not Available [facility] 21:50:53 Hyperest hesia 27160989 Completed 201711/25/2017 Problem Code: R20.3; Problem Code Type: ICD-10; Not Available [facility] 2 21:50:55 Skin sensatio n disturba nce 19105778 Completed 201711/25/2017 Problem Code: 782.0; Problem Code Type: ICD-9; Not Available [facility] 2 21:51:11 Acquired deformit y of toe 59552296 Completed 201701/09/2021 Problem Code: 735.8; Problem Code Type: ICD-9; Not Available [facility] 21:51:11 Onychomy cosis due to dermatop hyte 634978045 Completed 201711/25/2017 Problem Code: 110.1; Problem Code Type: ICD-9; Not Available [facility] 2 21:51:15 Acute sinusiti s 23433184 Completed 201701/31/2018 Problem Code: J01.90; Problem Code Type: ICD-10; JUAN ANTONIO mortensen, [place] [employer] 11:16:05 Non-neop lastic nevus 899469357 Completed 201706/28/2019 Not Available [facility] 21:50:58 Large prostate 369221892 Completed 201703/10/2018 Problem Code: N40.0; Problem Code Type: ICD-10; Not Available [facility] 2 21:51:05 Generali zed atherosc lerosis 28840411 Completed 201701/09/2021 Problem Code: 440.9; Problem Code Type: ICD-9; Not Available [facility] 2 21:51:08 Benign prostati c hyperpla mel 216086611 Completed 201701/09/2021 Problem Code: 600.00; Problem Code Type: ICD-9; Not Available [facility] 2 21:51:09 Lacerati on of finger with foreign body 284305297 Completed 201704/25/2018 Problem Code: S61.222A ; Problem Code Type: ICD-10; Not Available [facility] 21:50:56 Pre-surg marjorie evaluati on Completed 201704/25/2018 Not Available [facility] 21:50:58 Open wound of finger with complica tion 36979782 Completed 201704/25/2018 Problem Code: 883.1; Problem Code Type: ICD-9; Not Available [facility] 21:51:10 Abnormal weight gain 280600721 Completed 201705/09/2018 Problem Code: R63.5; Problem Code Type: ICD-10; Not Available [facility] 21:50:55 Mixed hyperlip idemia 883918604 Completed 201701/09/2021 Problem Code: 272.2; Problem Code Type: ICD-9; Tamar mortensen, [employer]. 5 09:56:03 Anemia of chronic disease 466976331 Completed 201706/28/2019 Problem Code: D63.8; Problem Code Type: ICD-10; Not Available [facility] 21:50:49 Prostate specific antigen above referenc e range 656076555 Completed 201705/12/2018 Problem Code: R97.20; Problem Code Type: ICD-10; Not Available [facility] 21:50:56 Iron deficien cy anemia secondar y to inadequa te dietary iron intake 166586014 Completed 201705/27/2018 Problem Code: D50.8; Problem Code Type: ICD-10; Not Available [facility] 21:50:49 Ulcerati ve pancolit is 897802223 Completed 201706/28/2019 Problem Code: K51.00; Problem Code Type: ICD-10; Not Available [facility] 21:50:52 Abscess of limb 495744380 Completed 201705/27/2018 Problem Code: L02.415; Problem Code Type: ICD-10; Not Available [facility] 2 21:51:00 Abscess of leg, except foot 99622698 Completed 201705/27/2018 Not Available [facility] 2 21:51:10 Ulcerati ve colitis 52209512 Completed 201701/09/2021 Problem Code: 556.6; Problem Code Type: ICD-9; Not Available [facility] 2 21:51:16 Anemia due to chronic blood loss 594567199 Active 2017 Problem Code: D50.0; Problem Code Type: ICD-10; Not Available [facility] 21:50:49 Ulcerati ve pancolit is 820457151 Completed 201706/28/2019 Problem Code: K51.00; Problem Code Type: ICD-10; Not Available [facility] 2 21:50:52 Ulcerati ve colitis 58766091 Completed 201701/09/2021 Problem Code: 556.6; Problem Code Type: ICD-9; Not Available [facility] 2 21:51:17 Acute posthemo rrhagic anemia 648468009 Completed 201706/12/2018 Problem Code: D62; Problem Code Type: ICD-10; Not Available [facility] 2 21:50:49 Acute posthemo rrhagic anemia 406498952 Completed 201706/17/2018 Problem Code: D62; Problem Code Type: ICD-10; Not Available [facility] 2 21:50:49 Acute posthemo rrhagic anemia 879586942 Completed 201706/24/2018 Problem Code: D62; Problem Code Type: ICD-10; Not Available [facility] 2 21:50:49 Pain in right knee Completed 201705/01/2018 Problem Code: M25.561; Problem Code Type: ICD-10; Not Available [facility] 2 21:50:53 Pain in left knee Completed 201705/01/2018 Problem Code: M25.562; Problem Code Type: ICD-10; Not Available [facility] 2 21:50:54 Knee pain Completed 201705/04/2022 Problem Code: 719.46; Problem Code Type: ICD-9; JUAN ANTONIO BROWNNER festus, Third Age. 2 11:16:05 Acute sinusiti s 02508467 Completed 201707/03/2018 Problem Code: J01.90; Problem Code Type: ICD-10; JUAN ANTONIO BROWNNER festus, Third Age. 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 Active 2018 Problem Code: M17.0; Problem Code Type: ICD-10; Not Available [facility] 2 21:51:01 Allergic sensitiz ation 255534764 Completed 201805/04/2022 JUAN ANTONIO mortensen, [email or web address] 2 11:16:05 Mixed hyperlip idemia 552545566 Active 2018 Problem Code: E78.2; Problem Code Type: ICD-10; Tamar Durham festus, [email or web address] 5 09:56:03 Large prostate 559791407 Active 2018 Problem Code: N40.0; Problem Code Type: ICD-10; Not Available [facility] 2 21:50:54 Dysthymi a 20626345 Active 2018 Problem Code: R53.81; Problem Code Type: ICD-10; Not Available [facility] 2 21:51:11 Primary insomnia 5810649 Active 2018 Problem Code: F51.01; Problem Code Type: ICD-10; Not Available [facility] 2 21:50:50 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 72809103 Active 2018 Problem Code: M50.00; Problem Code Type: ICD-10; Not Available [facility] 21:50:54 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 64364512 Active 2018 Problem Code: G90.09; Problem Code Type: ICD-10; Not Available [facility] 21:50:50 Pain in left knee Active 2018 Problem Code: M25.562; Problem Code Type: ICD-10; Not Available [facility] 2 21:50:53 Post-mahesh gical wound care Completed 201805/04/2022 Problem Code: Z48.02; Problem Code Type: ICD-10; JUAN ANTONIO mortensen [email or web address] 11:16:05 Body mass index 30+ - obesity 215572776 Active 2018 Problem Code: Z68.35; Problem Code Type: ICD-10; Not Available [facility] 21:50:59 Diabetes mellitus screenin g Completed 201805/04/2022 Problem Code: Z13.1; Problem Code Type: ICD-10; JUAN ANTONIO mortensen Third Age. 11:16:05 Body mass index 30+ - obesity 232383056 Completed 201807/17/2020 Problem Code: Z68.35; Problem Code Type: ICD-10; Not Available [facility] 2 21:51:01 [facility] 32384871 Completed 201812/14/2019 Problem Code: J98.11; Problem Code Type: ICD-10; Not Available [facility] 21:50:52 General examinat ion of patient Completed 201806/28/2019 JUAN ANTONIO mortensen [employer] [facility]. 2 11:16:05 Body mass index 30+ - obesity 220051841 Completed 201807/17/2020 Problem Code: Z68.35; Problem Code Type: ICD-10; Not Available [facility] 21:51:01 Body mass index 30+ - obesity 027476260 Completed 201807/17/2020 Problem Code: Z68.35; Problem Code Type: ICD-10; Not Available [facility] 2 21:51:00 Body mass index 30+ - obesity 696288007 Completed 201907/17/2020 Problem Code: Z68.36; Problem Code Type: ICD-10; Not Available [facility] 2 21:51:13 Disorder of skin and/or subcutan eous tissue 05341993 Completed 201905/04/2022 JUAN ANTONIO mortensen, Third Age. 11:16:05 Body mass index 30+ - obesity 287315940 Completed 201907/17/2020 Problem Code: Z68.36; Problem Code Type: ICD-10; Not Available [facility] 2 21:51:00 General examinat ion of patient Completed 201905/04/2022 JUAN ANTONIO ARELLANO [employer], [employer] 2 11:16:05 General examinat ion of patient Completed 202009/15/2020 JUAN ANTONIO EILEEN [employer], Third Age. 11:16:05 Body mass index 30+ - obesity 747306658 Completed 202009/15/2020 Problem Code: Z68.36; Problem Code Type: ICD-10; Not Available [facility] 2 21:51:14 Cough 94454900 Completed 202004/02/2021 Problem Code: R05; Problem Code Type: ICD-10; Not Available [facility] 21:50:54 Acute sinusiti s 49054261 Completed 202005/04/2022 Problem Code: J01; Problem Code Type: ICD-10; JUAN ANTONIO mortensen, [employer] 2 11:16:05 Eruption 794289110 Completed 202005/04/2022 Problem Code: R21; Problem Code Type: ICD-10; JUAN ANTONIO mortensen, [employer] 2 11:16:05 Contusio n of anterior abdomina l wall 585114982 Completed 202005/04/2022 JUAN ANTONIO mortensen, [employer] 2 11:16:05 Malignan t neoplasm of skin 516416449 Completed 202004/02/2021 Problem Code: C44.90; Problem Code Type: ICD-10; Not Available [facility] 2 21:50:49 Allergic rhinitis 67109183 Active 2020 Problem Code: J30.9; Problem Code Type: ICD-10; Not Available [facility] 21:50:52 Abrasion of skin of palm of hand 381671121 Completed 202109/24/2021 Not Available [facility] 21:50:56 Current drug user 465362555 Active 2021 Problem Code: Z79.899; Problem Code Type: ICD-10; Not Available [facility] 2 21:51:02 Acute frontal sinusiti s 06284156 Completed 202105/04/2022 Problem Code: J01.1; Problem Code Type: ICD-10; JUAN ANTONIO mortensen, [employer] 2 11:16:06 Generali zed anxiety disorder 92817726 Active 2022 Problem Code: F41.1; Problem Code Type: ICD-10; Maya Torres APRN [address] [place] [address], [address] , [employer] 3 11:40:35 Problem Notes None recorded. Procedures Surgical History Date Name Laterality Status Provider Name and Address Organization Details Recorded Time 7 hernia repair completed Not Available [facility] 03/23/2022 22:56:15 Imaging Results None recorded. Procedure [...] Updated DateTime 5 175.26 cm 37.7 kg/m2 027702. 05 g 87 /min 94 % 192/72 mm[Hg] 158/78 mm[Hg] 132/76 mm[Hg] Tamar Durham [facility] [employer] 5 11:32:00 Date Recorded Body height Body mass index (BMI) Body weight Heart rate Oxygen saturation Systolic And Diastolic Provider Name and Address Organization Details Last Updated DateTime 5 175.26 cm 38.3 kg/m2 679715. 82 g 96 /min 92 % 130/80 mm[Hg] Tamar Durham [email or web address] 5 13:49:03 Date Recorded Body height Body mass index (BMI) Body weight Heart rate Oxygen saturation Systolic And Diastolic Provider Name and Address Organization Details Last Updated DateTime 5 175.26 cm 36.9 kg/m2 525022. 09 g 101 /min 92 % 130/79 mm[Hg] Tamar Durham [email or web address] 5 10:51:45 Date Recorded Body height Body mass index (BMI) Body weight Body temperature Heart rate Oxygen saturation Systolic And Diastolic Provider Name and Address Organization Details Last Updated DateTime 5 175.26 cm 36.9 kg/m2 673807. 09 g 97.3 [degF] 71 /min 90 % 138/81 mm[Hg] [facility] 5 08:44:21 Date Recorded Body height Body mass index (BMI) Body weight Heart rate Oxygen saturation Systolic And Diastolic Provider Name and Address Organization Details Last Updated DateTime 5 175.26 cm 36.8 kg/m2 174528. 5 g 83 /min 91 % 134/85 mm[Hg] Tamar [facility] 5 10:47:28 Social History Question Answer Notes LastModified by Organizat ion Details LastModified Time Tobacco Smoking Status Former Smoker JUAN ANTONIO mortensen [employer] [facility]. 05/04/2022 11:17:53 Do You Have An Advance Directive? No [email or web address] Information n ot available 06/04/2022 Are You Blind Or Do You Have Difficulty Seeing? No [email or web address] Information n ot available 05/04/2022 What Is Your Level Of Caffeine Consumption? Moderate Information not available 11/30/2022 Are You A Caregiver? No [email or web address] Information not available 06/04/2022 In The 14 [...] Do You Have Serious Difficulty Hearing? No [email or web address] Information not available 05/04/2022 What Type Of Diet Are You Following? REGULAR [email or web address] Information n ot available 06/04/2022 Have There Been Any Changes To Your Family Or Social Situation? No [email or web address] Information no t available 06/04/2022 When Did You Quit Smoking? 6-10yearssinc elastcigarett e Information not available 06/01/2024 Do You Have A Medical Power Of Export Agent? No [email or web address] Information not available 06/04/2022 What Was The Date Of Your Most Recent Tobacco Screening? 05/09/2025 Information not available 05/09/2025 What Is Your Current Pack Years? 20-29packyear s [email or web address] Information not available 05/04/2022 What Is Your Relationship Status? [email or web address] Information not available 05/04/2022 Do You Use Your Seat Belt Or Car Seat Routinely? Yes [email or web address] Information not available 06/04/2022 Do You Have Smoke And Carbon Monoxide Detectors In Your Home? Yes [email or web address] Information not available 06/04/2022 How Much Tobacco Do You Smoke? 1 PPD Information not available 06/01/2024 Do You Use Sunscreen Routinely? No [email or web address] Information not available 06/04/2022 Have You Recently Traveled Abroad? No [email or web address] Information not available 06/04/2022 Do You Have Difficulty Walking Or Climbing Stairs? No [email or web address] Information not available 05/04/2022 Are You Currently In School? No [email or web address] Information not available 06/04/2022 Do You Have Any Dietary Restrictions? No [email or web address] Information not available 06/04/2022 Sex: Male Functional Status Question Answer Note LastModified by Organizat ion Details LastModified Time Do you use any illicit or recreational drugs? No Information not available 11/30/2022 What is your level of alcohol consumption? None [email or web address] Information not available 05/04/2022 Are you currently employed? No [email or web address] Information not available 06/04/2022 Do you have transportation difficulties? No [email or web address] Information not available 05/04/2022 Are you able to walk independently without assistance or assistive devices? YESWOREST Information not available 05/04/2022 Do you have difficulty doing errands alone? No [email or web address] Information not available 05/04/2022 Are you able to care for yourself independently? Yes [email or web address] Information not available 05/04/2022 Do you have difficulty dressing, bathing, grooming, or toileting? No [email or web address] Information not available 05/04/2022 What is your exercise level? None [email or web address] Information not available 06/04/2022 Mental Status Question Answer Note LastModified by Organization D etails LastModified Time Do you have difficulty concentrating, remembering or making decisions? No Information no t available 05/04/2022 Family History Relationship Description Onset Age of this Age Resolved Age Notes LastModified by Organization Details LastModified Time Unspecified Relation Family history of Hypertension [email or web address] Not available 11:16:26 Unspecified Relation Family history of malignant neoplasm Not available 05/04 11:16:34 Unspecified Relation Family history of polyp of colon [email or web address] Not available 05/04 11:16:39 Medical History Condition Response Allergies (Food, seasonal, environmental ) Y Hypertension Y GI Problems Y Immunizations Vaccine Type Date Status Note Provider Name and Address Organization Details Recorded Time zoster recombinant 024 cancelled patient objection Maya Torres APRN [address] [place], [address], [employer] 10/03/2023 13:15:21 pneumococcal polysaccharide PPV23 019 completed Tamar mortensen [employer] 05/09/2025 10:23:09 Pneumococcal conjugate PCV 13 018 completed Tamar Durham null, [employer] 05/09/2025 10:23:09 COVID-19, mRNA, LNP-S, PF, 100 mcg/0.5mL dose or 50 mcg/0.25mL dose 021 completed Tamar Durham null, [employer] 05/09/2025 10:23:09 COVID-19, mRNA, LNP-S, PF, 100 mcg/0.5mL dose or 50 mcg/0.25mL dose 021 completed Tamar Durham null, [employer] 05/09/2025 10:23:09 COVID-19, mRNA, LNP-S, PF, 100 mcg/0.5mL dose or 50 mcg/0.25mL dose 021 completed Tamar Durham null, [employer] 05/09/2025 10:23:09 Influenza, high-dose, trivalent, PF 019 completed JUAN ANTONIO ARELLANO null, [employer] 07/02/2022 11:24:10 Influenza, split virus, trivalent, PF 017 completed JUAN ANTONIO ARELLANO null, [employer] 07/02/2022 11:24:10 Influenza, MDCK, quadrivalent, PF 016 completed JUAN ANTONIO ARELLANO null, [employer] 07/02/2022 11:24:10 Tdap 016 completed JUAN ANTONIO ARELLANO null, [employer] 07/02/2022 11:24:10 Influenza, high-dose, trivalent, PF 018 completed JUAN ANTONIO ARELLANO null, [employer] 07/02/2022 11:24:10 COVID-19, mRNA, LNP-S, bivalent, PF, 50 mcg/0.5 mL or 25mcg/0.25 mL dose 022 completed JUAN ANTONIO mortensen, [employer] 07/02/2022 11:24:10 Influenza, high-dose, quadrivalent, PF 022 completed JUAN ANTONIO mortensen, [employer] 07/02/2022 11:24:10 Influenza, high-dose, quadrivalent, PF 021 completed JUAN ANTONIO mortensen [employer] 07/02/2022 11:24:10 RSV, recombinant, protein subunit RSVpreF, adjuvant reconstituted, 0.5 mL, PF 023 completed Not Available [facility] 05/09/2025 10:21:48 Influenza, high-dose, quadrivalent, PF 023 completed Not Available [facility] 05/09/2025 10:21:48 Influenza, high-dose, trivalent, PF 024 completed Not Available [facility] 05/09/2025 10:21:48 Pneumococcal conjugate PCV20, polysaccharide [id number] conjugate, adjuvant, PF 025 completed Not Available [facility] 05/09/2025 10:21:48 Influenza, high-dose, trivalent, PF 025 completed Not Available [facility] 05/09/2025 10:21:48 Influenza, high-dose, quadrivalent, PF 020 completed Tamar mortensen, [place] [employer] 05/09/2025 10:23:09 Past Encounters Encounter ID Performer Location Encounter Start Date Encounter Closed Date Diagnosis/Indication Diagnosis SNOMED-CT Code Diagnosis ICD10 Code Diagnosis IMO Codes Diagnosis Note [id number] Maya Torres [address] [address] 05/04/2022 11:06:44 05/04/2022 11:36:23 Dysthymia 26327185 R53.81 Idiopathic peripheral autonomic neuropathy 71770283 G90.09 [id number] Maya Torres [address] [address] 06/04/2022 10:50:55 06/04/2022 11:05:53 Idiopathic peripheral autonomic neuropathy 67097241 G90.09 Anxiety 16480032 F41.9 Allergic rhinitis 278803 04 J30.9 Body mass index 30+ - obesity 149364229 Z68.38 Acute sinusitis 49301510 J01.90 Dysthymia 57370028 R53.8 1 [id number] [place] [address] 07/02/2022 11:05:52 07/02/2022 11:41:18 Idiopathic peripheral autonomic neuropathy 27267263 G90.09 Mixed hyperlipidemia 267 568391 E78.2 Anxiety 65089621 F41.9 Body mass index 30+ - obesity 405288337 Z68.38 [id number] [place] [address] 07/15/2022 10:31:53 07/15/2022 13:11:18 Acute upper respiratory infection 82036617 J06.9 [id number] [place] [address] 08/02/2022 11:24:44 08/02/2022 11:46:36 Anxiety 87303873 F41.9 Allergic rhinitis 215137 04 J30.9 Idiopathic peripheral autonomic neuropathy 69559077 G90.09 Body mass index 30+ - obesity 418670791 Z68.38 [id number] [place] [address] 09/02/2022 11:07:10 09/02/2022 11:51:01 Dysthymia 58165779 R53.81 Anxiety 53370565 F41.9 Idiopathic peripheral autonomic neuropathy 60010851 G90.09 Body mass index 30+ - obesity 929290784 Z68.38 [id number] Maya Torres [place] [address] 10/01/2022 11:06:15 10/01/2022 11:37:36 Idiopathic peripheral autonomic neuropathy 50769014 G90.09 Anxiety 43867623 F41.9 Acute sinusitis 32447918 J01.90 [id number] [place] [address] 11/01/2022 10:18:50 11/01/2022 10:51:54 Cough 13420878 R05.9 Wheezing 88757592 R06.2 Idiopathic peripheral autonomic neuropathy 04101366 G90.09 Anxiety 83221860 F41.9 Body mass index 30+ - obesity 304741943 Z68.38 [id number] Maya Torres [address] 0 11/30/2022 10:11:55 11/30/2022 10:33:30 Gastroesophageal reflux disease without esophagitis 346202573 K21.9 Anxiety 33183699 F41.9 Idiopathic peripheral autonomic neuropathy 12940464 G90.09 Allergic rhinitis 680165 04 J30.9 [id number] Maya Torres [place] [address] 0 12/31/2022 10:19:21 12/31/2022 11:25:07 Fatigue 65369727 R53.83 Mixed hyperlipidemia 267 991337 E78.2 Nocturia 882201561 R35.1 Long-term drug therapy 905900163 Z79.899 Idiopathic peripheral autonomic neuropathy 49314688 G90.09 Anxiety 84985980 F41.9 Body mass index 30+ - obesity 657356686 Z68.38 [id number] [place] [address] 01/31/2023 10:35:26 01/31/2023 11:13:41 Idiopathic peripheral autonomic neuropathy 95678243 G90.09 Anxiety 65493003 F41.9 [id number] [place] [address] 03/03/2023 10:21:47 03/03/2023 10:54:56 Idiopathic peripheral autonomic neuropathy 95356547 G90.09 Anxiety 34847081 F41.9 Body mass index 30+ - obesity 297205684 Z68.38 [id number] [place] [address] 04/04/2023 11:25:04 04/04/2023 11:54:55 Allergic rhinitis 97939990 J30.9 Anxiety 77802819 F41.9 Idiopathic peripheral autonomic neuropathy 79640211 G90.09 Body mass index 30+ - obesity 766284441 Z68.38 [id number] [place] [address] 06/03/2023 10:34:54 06/03/2023 11:28:21 Dyspnea on exertion 13537834 R06.09 Essential hypertension 23204477 I10 Mixed hyperlipidemia 267 419603 E78.2 Idiopathic peripheral autonomic neuropathy 83964522 G90.09 Generalize d anxiety disorder 96237017 F41.1 Body mass index 30+ - obesity 634999157 Z68.38 [id number] [place] [address] 08/04/2023 10:38:40 08/04/2023 11:02:33 Dyspnea on exertion 80649707 R06.09 Anxiety 34856338 F41.9 Idiopathic peripheral autonomic neuropathy 25723684 G90.09 Body mass index 30+ - obesity 051693604 Z68.38 [id number] [place] [address] 10/03/2023 10:34:44 10/03/2023 11:27:11 Long-term drug therapy 529574267 Z79.899 Body mass index 30+ - obesity 536899332 Z68.38 Adult [facility] th examination 650774712 Z00.[address] vaccination declined 7485594508 102 Z28.20 Anxiety 35684629 F41.9 Idiopathic peripheral autonomic neuropathy 69371070 G90.09 Large prostate 884771132 N40.0 Mixed hyperlipidemia 267 804739 E78.2 Fatigue 62451691 R53.83 Chronic cough 51110004 R 05.3 [id number] Maya Torres, [employer] [place] [address] 12/02/2023 10:24:11 12/02/2023 11:04:47 Pain of left hip joint 8049850319 39627 M25.552 Anxiety 09226381 F41.9 Idiopathic peripheral autonomic neuropathy 45109383 G90.09 Body mass index 30+ - obesity 297162524 Z68.38 [id number] [place] [address] 01/31/2024 10:36:29 01/31/2024 11:31:01 Idiopathic peripheral autonomic neuropathy 29406155 G90.09 Anxiety 03189853 F41.9 Pain of le ft hip joint 5239259732 23638 M25.552 Body mass index 30+ - obesity 924130606 Z68.38 [id number] [place] [address] 04/03/2024 10:26:32 04/03/2024 10:52:47 Pain of left hip joint 3016456843 51031 M25.552 Idiopathic peripheral autonomic neuropathy 92035283 G90.09 Generalize d anxiety disorder 76658460 F41.1 Body mass index 30+ - obesity 618322040 Z68.38 [id number] [place] [address] 06/01/2024 13:40:03 06/01/2024 14:09:33 Idiopathic osteoarthritis 774917331 M17.0 Acute sinusitis 79077557 J01.90 Generalize d anxiety disorder 47738735 F41.1 Idiopathic peripheral autonomic neuropathy 92192853 G90.09 Body mass index 30+ - obesity 899967150 Z68.38 [id number] Maya Torres [place] [address] 07/31/2024 10:27:29 07/31/2024 13:01:30 Generalized anxiety disorder 40213325 F41.1 Pneumonia 298541410 J18. 9 Chronic ob structive pulmonary disease 91059708 J44.9 Abdominal pain 24384250 R10.9 Fatigue 90018673 R53.83 Hyperlipidemia 13387204 E78.5 Hyperglycemia 69956552 R 73.9 Vitamin D deficiency 347 66491 E55.9 Vitamin B deficiency 479 42587 E53.9 Nocturia 519552246 R35.1 Iron defic iency anemia 56974891 D50.9 Body mass index 30+ - obesity 940899967 Z68.38 [id number] [place] [id number] 09/27/2024 11:09:36 09/27/2024 11:58:20 Long-term drug therapy 105162840 Z79.899 Gastroesop hageal reflux disease without esophagitis 439109497 K21.9 Generalize d anxiety disorder 90213441 F41.1 Body mass index 30+ - obesity 566369287 Z68.38 [id number] [place] [address] 12/03/2024 13:33:16 12/03/2024 14:18:36 Generalized anxiety disorder 06100114 F41.1 Idiopathic osteoarthritis 053973462 M17.0 Body mass index 30+ - obesity 873284422 Z68.38 597026 [id number] [place] [address] 02/01/2025 10:37:10 02/01/2025 11:13:22 Generalized anxiety disorder 58810809 F41.1 controlled substance agreement and drug screen UTD at this time. Body mass index 30+ - obesity 454087855 Z68.38 367074 Allergic rhinitis 905610 04 J30.9 Dysthymia 05351945 R53.8 1 Large prostate 673973849 N40.0 Chronic ob structive pulmonary disease 50503257 J44.9 Pain of mu ltiple joints 59267942 M25.50 872474 [id number] [place] [address] 03/08/2025 08:21:58 03/08/2025 10:43:55 Acute bacterial sinusitis 75382572 J01.90 B96.89 22516 Fatigue 79176731 R53.83 2672902 Mixed hyperlipidemia 267 176272 E78.2 94303 Hyperglycemia 49623240 R 73.9 90944 Nocturia 187944542 R35.1 62390 Vitamin D deficiency 347 75179 E55.9 06460 Cobalamin deficiency 190 314008 E53.8 92289 History an d physical examination, annual for health maintenance 35593339 Z00.00 6482443719 Body mass index 30+ - obesity 451623558 Z68.36 034914 [id number] [place] [id number] 05/09/2025 10:20:23 05/09/2025 11:27:11 Generalized anxiety disorder 72242612 F41.1 controlled substance agreement and drug screen UTD at this time. Essential hypertension 78175891 I10 Gastroesop hageal reflux disease without esophagitis 379637613 K21.9 Allergic rhinitis 694678 04 J30.9 Body mass index 30+ - obesity 615739137 Z68.36 559871 Health Concerns Section Related Observation LastModified by Organization Detai ls LastModified Time None Recorded Concern Status LastModified by Organization Details LastModified Time None Recorded Advance Directives Directive N: Payers Insurance Date Sequence Insurance Name Policy Number Policy Sutherland Covered Member ID Sutherland Member ID Guarantor Name 12/05/2024 [place] [employer] - [facility] Stephane Mendieta [id number] Stephane Mendieta 05/06/2025 [place] [employer] [facility] Stephane Mendieta [id number] Stephane Mendieta 05/06/2025 2 [employer] SUPPLEMENTAL - [employer]URANCE (MEDICARE SUPPLEMENT) Stephane Mendieta [id number] Stephane Mendieta 05/06/2025 1 [place] Stephane Mendieta [id number] Stephane Mendieta Notes Date Note Type Note Provider Name and Address Organization Details Recorded Time 09/27/2024 text/html 73 year old male presents for chronic disease fu. Denies acute concerns at this time. [facility] pulm gave him samples of trelegy but is unable to afford it monthly. Will give him samples today. States cough has improved. He recently got refill on lorazepam since he forgot to request febs refill. He is to let us know when he need his next refill. pt agrees Maya Torres APRN [address] [place], [address], [employer] 09/27/2024 12:37:03 12/03/2024 text/html pt here today for medication refills. pt states hes doing well on current medication regime and has no new complaints today. pt states that he has recently had more skin cancers removed, and needs another one removed. he is having spinal sx again the first of december to replace a lead. Maya Torres APRN [address] [place], [address], [employer] 12/03/2024 15:29:36 02/01/2025 text/html pt here today [...] he doesnt care. Maya Torres APRN [address] [place], [address], [employer] 02/01/2025 12:22:29 03/08/2025 text/html Annual WellnessReported [...] fluids. return for worsening symptoms. Tamar mortensen, [employer] 03/08/2025 10:12:47 05/09/2025 text/html pt here today for medication refills. pt states hes doing well on current medication regime and has no new complaints today. pt requested more trelegy samples and i gave him 4. Maya oTrres, SIMI [address] [place], [address], [employer] 05/09/2025 18:02:01
[2025-07-11 10:28] VITALS: BP 161/96; PULSE 76; RESP 20; TEMP 36.8; O2SAT 92; BMI 38.0
[2025-07-11] MEDS: DAPTOmycin 1,000 MG in 0.9 % SODIUM CHLORIDE 50 ML 100 MG IV (10:35)
[2025-07-11] MEDS: SODIUM CHLORIDE 0.9% 10ML FLUSH SYRINGE 10 ML IV (11:44)
== END 2025-07-11 23:59 | disposition home or self-care (01) ==
PROVIDERS: PCP Nurse Practitioner; Visit Provider Internal Medicine Infectious Disease
DX: T85.73 Infection and inflammatory reaction due to nervous system devices, implants and graft (principal)
CPT/HCPCS: 96365; J0878

== ENCOUNTER 2025-07-12 10:05 | Outpatient (CLI) | payer MEDICARE, OTHER, SELFPAY ==
--- OUTSIDE RECORDS SUMMARY | 2022-12-01 11:56 | XMS_ITS | Encounter Summary ---
[facility] [address] [place] [address] Care Team Providers Care Dye Colorist Formulator Name Role Phone Maya Torres Primary Care Provider + [phone] Encounter Details Date Type Department Care Team (Late st Contact Info) Description 12/01/2022 12:56 PM EDT Hospital Encounter [facility] PULMONARY & CRITICAL CARE MEDICINE [facility] [place] [address] Social History Tobacco Use Types [...] Narrative 12/01/2022 1:31 PM EDT Stephane Annton [id number] 12/01/2022 Chest X-Ray PA & Lateral Indication: [...] on filedocumented in this encounter Care Teams Dye Colorist Formulator Relationship Specialty Start Date End Date Maya Torres [address] [place] [address] PCP - General Nurse Practitioner 09/28/22 documented as of this encounter
--- OUTSIDE RECORDS SUMMARY | 2024-04-27 06:30 | XMS_ITS ---
Author Organization [facility] Address [address] [place] [address] Care Team Providers Care Fuel Cell Systems Engineer Name Role Phone Jerome Morrissey II Unavailable [phone] Michael COLEMAN -Pramod Velazquez MD, Issa Unavailable [phone] Allergies No Known Allergies REASON FOR VISIT [...] Diagnosis [facility] [address] [place] [address] 04/27/2024 Jerome Morrissey Other shelter (current) drug therapy Z79.899 ; Spondylosis without myelopathy or radiculopathy, cervical region M47.812 ; Postlaminectomy syndrome, not elsewhere classified M96.1 and Spondylosis without myelopathy or radiculopathy, lumbar region M47.816 Assessments Encounter Date Diagnosis (ICD Code) Assessment Notes Treatment Notes Treatment Clinical Notes Section Notes 04/27/2024 Other terminal gauger (current) drug therapy (ICD-10 - Z79.899) 04/02/2024 1. Discontinue [place] 5/325mg QD PRN 2. FU 1 month with [facility] 3. [employer] [facility] to change SCS settings 4. S/P [...] no relief with TFESI LT in January. [employer] rep in the room changing SCS settings. [...] no relief with TFESI LT in January. [employer] rep in the room changing SCS settings. [...] no relief with TFESI LT in January. [employer] rep in the room changing SCS settings. [...] no relief with TFESI LT in January. [employer] rep in the room changing SCS settings. [...] Of Treatment Treatment Notes Assessment Notes Other shelter (current) drug therapy 04/02/2024 1. Discontinue [place] 5/325mg QD PRN 2. FU 1 month with [facility] 3. [employer] rep to change SCS settings 4. S/P [...] Stephane YANEZ ADOB: 3 (74 yo M)Acc No.[id number]:04/27/2024 FollowUP Patient: Stephane RODRIGUEZ Provider: Reji Morrissey II, M.D. :1950 A ge:73 Y S ex:Male Date:04/27/2024 Address:[address] [place], [place] [id number] Subjective: * Chief Complaints: * 1 . [...] relief for 1 hour 0 08/09/2022SCS Trial [place] 80% relief for 1 week 0 02/13/2024#1 [...] back pain onset in 2018 without incident tOf javed was referred here in consultation for [...] * Vitals: * Examination: G eneral Examination: Nurse/Process Automation Engineer: Phill McnamaraMA-Shamar)Madeleine 04/02/2024 9:48:48 AM > . [...] scars. Assessment: * Assessment: 1. O ther terminal gauger (current) drug therapy - Z79.899 (Primary) 2 [...] no relief with TFESI LT in January. [employer] rep in the room changing SCS settings. [...] signature of Raymon Morrissey II, M.D. on 07/12/2025 at 09:08 AM SHEET METAL WORK FURNACE INSTALLER Sign off status: Pending * Provider: Reji Morrissey II, M.D. Date: 1 Generated for Irwin spears/Davon/Bentleyitting on: 1 09/12/2024 09:08 AM SHEET METAL WORK FURNACE INSTALLER History and Physical Notes * HPI (History [...] to advanced foraminal encroachment PHYSICAL/AQUA THERAPY/DME/OTHER HISTORY: 3698-4944 Chiropractic therapy program complete 06/2023-Present: Patient continues a prescribed home exercise program 3-5 times per week which includes walking, lumbar stretches, and alternating leg lifts PERTINENT SURGICAL EVALUATIONS/SPECIALIST CONSULTS 04/2022 - Dr. Rodriugez - No surgery recommened, recommends SCS trial PREVIOUS INJECTION\PROCEDURE HISTORY: 08/21/2019 #1 SIJI RT 20% relief for 1 hour 08/09/2022 SCS Trial [place] 80% relief for 1 week 02/13/2024 #1 [...] wi th an antalgic gait, pitched forward Nurse/Process Automation Engineer: Mendez SHARMA-Shamar)Francisco J 04/02/2024 9:48:48 AM > [...]
--- OUTSIDE RECORDS SUMMARY | 2024-05-28 10:30 | XMS_ITS ---
Author Organization [facility] Address [address] [place] [address] Care Team Providers Care Cash Accountant Name Role Phone Jerome Morrissey II Unavailable [phone] Michael COLEMAN -Pramod Velazquez MD, Issa Unavailable [phone] Allergies No Known Allergies REASON FOR VISIT [...] Diagnosis [facility] [address] [address] 05/28/2024 Jerome Morrissey Other terminal block assembler (current) drug therapy Z79.899 ; Spondylosis without myelopathy or radiculopathy, cervical region M47.812 ; Postlaminectomy syndrome, not elsewhere classified M96.1 and Spondylosis without myelopathy or radiculopathy, lumbar region M47.816 Assessments Encounter Date Diagnosis (ICD Code) Assessment Notes Treatment Notes Treatment Clinical Notes Section Notes 05/28/2024 Other penitentiary (current) drug therapy (ICD-10 - Z79.899) 04/02/2024 1. Discontinue [place] 5/325mg QD PRN 2. FU 1 month with [facility] 3. [employer] rep to change SCS settings 4. S/P [...] no relief with TFESI LT in January. [employer] rep in the room changing SCS settings. [...] no relief with TFESI LT in January. [employer] rep in the room changing SCS settings. [...] no relief with TFESI LT in January. [employer] in the room changing SCS settings. Patient [...] no relief with TFESI LT in January. [employer] rep in the room changing SCS settings. [...] Of Treatment Treatment Notes Assessment Notes Other terminal block assembler (current) drug therapy 04/02/2024 1. Discontinue [place] 5/325mg QD PRN 2. FU 1 month with [facility] 3. [employer] rep to change SCS settings 4. S/P [...] Stephane MENDIETA ADOB: 3 (74 yo M)Acc No.[id number]:05/28/2024 Progress NOte Patient: Stephane RODRIGUEZ Provider: Reji Morrissey II, M.D. :1950 A ge:73 Y S ex:Male Date:05/28/2024 Address:[address] [place] [phone] Subjective: * Chief Complaints: * 1 . [...] for 1 hour 0 08/09/2022 SCS Trial Cltxza12% relief for 1 week 0 02/08/2024- #1 [...] * Vitals: * Examination: G eneral Examination: Nurse/Parking Enforcement Technician: Madeleine Gonzalez (MA-Lex) 04/02/2024 9:48:48 AM > [...] no relief with TFESI LT in January. [employer] rep in the room changing SCS settings. [...] Raymon Morrissey II, M.D. on 07/12/2025 at 09:09 AM MASON APPRENTICE Sign off status: Pending * Provider: Reji Morrissey II, M.D. Date: 07/28/2023 Generated for Irwin spears/Davon/Nicholasransmitting on: 09/12/2024 09:09 AM MASON APPRENTICE History and Physical Notes * HPI (History [...] to advanced foraminal encroachment PHYSICAL/AQUA THERAPY/DME/OTHER HISTORY: 8081-8308 Chiropractic therapy program complete 06/2023-Present: Patient continues a prescribed home exercise program 3-5 times per week which includes walking, lumbar stretches, and alternating leg lifts PERTINENT SURGICAL EVALUATIONS/SPECIALIST CONSULTS 04/2022 - Dr. Rodriguez - No surgery recommened, recommends SCS trial PREVIOUS INJECTION\PROCEDURE HISTORY: 08/21/2019 #1 SIJAYLYN RT 20% relief for 1 hour 08/09/2022 SCS Trial [place] 80% relief for 1 week 02/08/2024 - [...] wi th an antalgic gait, pitched forward Nurse/Parking Enforcement Technician: Mendez (ALEJANDRINA-Shamar)Francisco J 04/02/2024 9:48:48 AM > [...]
--- OUTSIDE RECORDS SUMMARY | 2025-07-12 10:08 | XMS_ITS | Clinical Summary ---
Author Organization [employer] ([place], [place], [place], [place], [place]) Address [address] [place] [address] Care Team Providers Care Regulator Tester Name Role Phone Maya Torres APRN Primary Care Provider +1- [phone] Allergies No known active allergies Medications traZODone [...] Date Jan rded Speak language other than Vietnamese at home Not on file 08/04/2023 Want [...] 04/24/2019, 2017 Insurance MEDICARE PART A [place] [address] Care Teams Regulator Tester Relationship Specialty Start Date End Date Maya Torres, BUSINESS UNIT LEADER [address] [phone] PCP - General Family Medicine 08/27/22
--- OUTSIDE RECORDS SUMMARY | 2025-07-12 10:08 | XMS_ITS | Encounter Summary ---
Author Organization [employer] ([place], [place], [place], [place]) Address [address] [place] [address] Care Team Providers Care Disability Attorney Name Role Phone Maya Torres Reji BELCHER Primary Care Provider +1- [phone] Encounter Details Date Type Department Care Team (Late st Contact Info) Description 10/27/2020 Transcribed Document [facility] [place] Family Medicine [address] [place] [address] ProviderJean MD [address] [place] [address] Social History Tobacco Use Types [...] on filedocumented in this encounter Care Teams Disability Attorney Relationship Specialty Start Date End Date Maya Torres, BUNG REMOVER [address] [phone] PCP - General Family Medicine 08/27/22 documented as of this encounter
--- OUTSIDE RECORDS SUMMARY | 2025-07-12 10:08 | XMS_ITS | Encounter Summary ---
Author Organization [employer] ([place], [place], [place], [place]) Address [address] [place] [address] Care Team Providers Care Manager Room Name Role Phone Maya Torres Reji BELCHER Primary Care Provider +1- [phone] Encounter Details Date Type Department Care Team (Late st Contact Info) Description 10/27/2020 Transcribed Document [facility] Family Medicine [facility] [place] [address] ProviderJean MD [address] [place] [address] Social History Tobacco Use Types Packs/Day Years Used Date Smoking Tobacco: Never Assessed Sex and Gender Information Value Date Recorded Sex Assigned at Not on file Legal Sex Male 5:19 PM CDT Gender Identity Not on file Sexual Orientation Not on file documented as of this encounter Miscellaneous Notes * Cerner Conversion Note - eJan Sawant MD - 10/27/2020 12:36 PM CDT [...] filedocumented in this encounter Care Teams Manager Room Relationship Specialty Start Date End Date Maya Torres, AUTO APPRENTICE MECHANIC [address] [phone] PCP - General Family Medicine 08/27/22 documented as of this encounter
--- OUTSIDE RECORDS SUMMARY | 2025-07-12 10:08 | XMS_ITS | Encounter Summary ---
Author Organization [employer] ([place], [place], [place], [place]) Address [address] [place] [address] Care Team Providers Care Director Of Medical Services Name Role Phone Maya Torres Reji BELCHER Primary Care Provider +1- [phone] Encounter Details Date Type Department Care Team (Late st Contact Info) Description 10/27/2020 Transcribed Document [facility] [facility] [place] [address] ProviderJean MD [address] [place], [place] [address] Social History Tobacco Use Types Packs/Day Years [...] filedocumented in this encounter Care Teams Director Of Medical Services Relationship Specialty Start Date End Date Maay Torres, DOCTOR OF PHARMACY [address] [phone] PCP - General Family Medicine 08/27/22 documented as of this encounter
--- OUTSIDE RECORDS SUMMARY | 2025-07-12 10:08 | XMS_ITS | Encounter Summary ---
Author Organization [facility] ([place], [place], [place], [place], [place]) Address [address] [place] [address] Care Team Providers Care Armor Reconnaissance Specialist Name Role Phone Maya Torres Reji BELCHER Primary Care Provider +1- [phone] Encounter Details Date Type Department Care Team (Late st Contact Info) Description 10/27/2020 Transcribed Document [facility] [facility] [place] [address] ProviderJean MD [address] [place] [address] Social History Tobacco Use Types [...] 12:04 EDT by Alina Easley Flex Team system manager Triage Across the Room Chief Complaint [...] Tracking Group : [facility] ED Alina Easley Flex Team Rn - 10/27/2020 12:04 EDT Mode of Arrival : Ambulatory Transported to ED by : Private vehicle To Room Via : Wheelchair Accompanied By : Spouse ED Vital Signs : Document Height & Weight : Document ED Allergies : Document ED Reason for Visit : Document Tetanus Immunization : Less than 5 years Air Liaison And Special Staff Needed : No Alina Easley Flex Team [...] Problems(Active) At risk for sleep apnea (IMO :72691586 ) Name of Problem: At risk for sleep apnea ; Recorder: SYSTEM, SYSTEM; Confirmation: Confirmed ; Classification: Medical ; Code: [id number] ; Last Updated: 06/16/2018 8:18 EST ; Life Cycle Date: 06/16/2018 ; Life Cycle Status: Active ; Vocabulary: IMO Enlarged prostate (SNOMED CT :217816049 ) Name of Problem: Enlarged prostate ; Recorder: Shavonne Jimenez RN; Confirmation: Confirmed ; Classification: Medical ; Code: 676237705 ; Contributor System: PowerChart ; Last Updated: 06/16/2018 8:22 EST ; Life Cycle Date: 06/16/2018 ; Life Cycle Status: Active ; Vocabulary: SNOMED CT Hypertension (SNOMED CT :2486651788 ) Name of Problem: Hypertension ; Recorder: Shavonne Jimenez RN; Confirmation: Confirmed ; Classification: Medical ; Code: 1102968196 ; Contributor System: PowerChart ; Last Updated: 06/16/2018 8:21 EST ; Life Cycle Date: 06/16/2018 ; Life Cycle Status: Active ; Vocabulary: SNOMED CT Seasonal allergies (SNOMED CT :3177250676 ) Name of Problem: Seasonal allergies ; Recorder: Shavonne Jimenez RN; Confirmation: Confirmed ; Classification: Medical ; Code: [id number] ; Contributor System: reMailChart ; Last Updated: 06/16/2018 8:22 EST ; Life Cycle Date: 06/16/2018 ; Life Cycle Status: Active ; Vocabulary: SNOMED CT Diagnoses(Active) Medical screening exam Date: 10/27/2020 ; Diagnosis Type: Reason For Visit ; Confirmation: Complaint of ; Clinical Dx: Medical screening exam ; Classification: Medical ; Clinical Service: Non-Specified ; Code: PNED ; Probability: 0 ; Diagnosis Code: [id number] ED Height and Weight Height Source : Stated Height Entry Format : [place] Height, Feet : 5 ft(Converted to: 152 cm, 60 Inch) Height, Inches : 8 Inch(Converted to: 0 ft 8 Inch, 20.32 cm) Clinical Height : 172.72 cm Weight Source, ED : Critical estimated dosing weight Weight Entry Format : [place] Weight, Pounds : 250 lb Clinical Dosing Weight : 113.64 kg Body Surface Area (BSA) : 2.25 m2 Body Mass Index : 38.1 kg/m2 (HI) [place] Body Weight (IBW) : 67.45 kg Alina [...] on filedocumented in this encounter Care Teams Armor Reconnaissance Specialist Relationship Specialty Start Date End Date Maya Torres, PUBLIC HEALTH DENTIST [address] [phone] PCP - General Family Medicine 08/27/22 documented as of this encounter
--- OUTSIDE RECORDS SUMMARY | 2025-07-12 10:08 | XMS_ITS | Encounter Summary ---
Author Organization [employer] ([place], [place], [place], [place], [place]) Address [address] [place] [address] Care Team Providers Care Affirmative Action Officer Name Role Phone Maya Torres APRN Primary Care Provider +1- [phone] Encounter Details Date Type Department Care Team (Late st Contact Info) Description 10/27/2020 Transcribed Document [facility] Family Medicine [address] [place] [address] ProviderJean MD [address] [place] [address] Social History Tobacco Use Types [...] 10/27/2020 6:32 PM CDT Electronically signed by Ileana [facility] Conversion International Exchange Coordinator Cerner at 11/04/2022 3:28 PM CDT documented in this encounter Plan of Treatment Not on file documented as of this encounter Visit Diagnoses Not on filedocumented in this encounter Care Teams Affirmative Action Officer Relationship Specialty Start Date End Date Maya Torres APRN [address] [facility] [address] [place] [address] PCP - General Family Medicine 08/27/22 documented as of this encounter
--- OUTSIDE RECORDS SUMMARY | 2025-07-12 10:08 | XMS_ITS | Encounter Summary ---
Author Organization [employer] ([place], [place], [place], [place], [place]) Address [address] [place] [address] Care Team Providers Care Humidifier Maintenance Worker Name Role Phone Maya Torres APRN Primary Care Provider +1- [phone] Encounter Details Date Type Department Care Team (Late st Contact Info) Description 10/30/2020 Transcribed Document [facility] [facility] [place] [address] ProviderJean MD [address] [place] [address] Social History Tobacco Use Types [...] on filedocumented in this encounter Care Teams Humidifier Maintenance Worker Relationship Specialty Start Date End Date Maya Torres APRN [address] [facility] [address] [place] [address] PCP - General Family Medicine 08/27/22 documented as of this encounter
--- OUTSIDE RECORDS SUMMARY | 2025-07-12 10:08 | XMS_ITS | Referral Summary ---
Author Organization [employer] ([place], [place], [place], [place], [place]) Address [address] [place] [address] Care Team Providers Care Systems Requirements Planner Name Role Phone Maya Torres APRN Primary Care Provider +1- [phone] Allergies No known active allergies Medications traZODone [...] Date Jan rded Speak language other than Thai at home Not on file 08/04/2023 Want [...] on file Insurance [facility] Care Teams Systems Requirements Planner Relationship Specialty Start Date End Date Maya Torres, SUBMARINE ELEMENT COORDINATOR [address] [phone] PCP - General Family Medicine 08/27/22
--- OUTSIDE RECORDS SUMMARY | 2025-07-12 10:08 | XMS_ITS | Clinical Summary ---
Author Organization [facility] Address [address] [place] [address] Care Team Providers Care Screener And Blender Operator Name Role Phone Unavailable Primary Care [...]
--- OUTSIDE RECORDS SUMMARY | 2025-07-12 10:08 | XMS_ITS | Encounter Summary ---
Author Organization [employer] ([place], [place], [place], [place], [place]) Address [address] [place] [address] Care Team Providers Care Facilities Mechanical Design Engineer Name Role Phone Maya Torres Reji BELCHER Primary Care Provider +1- [phone] Encounter Details Date Type Department Care Team (Late st Contact Info) Description 10/27/2020 Transcribed Document [facility] [facility] [place] [address] ProviderJean MD [address] [place] [address] Social History Tobacco Use Types [...] on filedocumented in this encounter Care Teams Facilities Mechanical Design Engineer Relationship Specialty Start Date End Date Maya Torres, SAND MOLDER [address] [phone] PCP - General Family Medicine 08/27/22 documented as of this encounter
--- OUTSIDE RECORDS SUMMARY | 2025-07-12 10:08 | XMS_ITS | Encounter Summary ---
Author Organization [employer] ([place], [place], [place], [place], [place]) Address [address] [place] [address] Care Team Providers Care Children'S Librarian Name Role Phone Maya Torres Reji BELCHER Primary Care Provider +1- [phone] Encounter Details Date Type Department Care Team (Late st Contact Info) Description 10/27/2020 Transcribed Document [facility] Family Medicine [address] [place] [address] ProviderJean MD [address] [place] [address] Social History Tobacco Use Types [...] - 10/27/2020 6:36 PM CDT [facility] [place], [place] [id number] ISATU MENDIETA :1950 Visit Time:10/27/2020 Your Visit [...] to 3 days Where: [place] [address] [place] [address] [facility] (1) Allergies No Known Medication [...] 24HR 55 mcg/ inh nasal spray) 1 [place](s) Nasal Two Times A Day The home [...] and 14.9 ) ANC #: 12 K/uL [place] Percent Man: 2 % -- Normal range [...] ) Urine Bilirubin Dipstick: Negative Urine Specific [place]: 1.006 -- Normal range between ( 1.005 [...] or lying down. General instructions ??? Take cthm-gzc-rfrnhvj and prescription medicines only as told by [...] compression, and elevation. You may be given cwbo-iqy-bifktoj medicines for pain. ??? Contact a health [...] provider. Document Revised: 02/22/2019 Document Reviewed: 02/22/2019 [employer] Patient Education ?? 2020 [employer]. Emergency Awareness and Preventative Care STROKE is [...] Assistance with quitting is available by contacting 1-543-TCWZ-NOW. This is a free resource providing counseling, [...] was given the opportunity to ask questions. Patient/Stogie Packer Name: Patient/Stogie Packer Signature: Relationship to Patient: Clinician/Hospital Stogie Packer Signature: Please Provide a Telephone Number Where You Can Be Reached: Is it Permissible To Leave a Message? Date: documented in this encounter Plan of Treatment Not on file documented as of this encounter Visit Diagnoses Not on filedocumented in this encounter Care Teams Children'S Librarian Relationship Specialty Start Date End Date Maya Torres, SIMI [address] [phone] PCP - General Family Medicine 08/27/22 documented as of this encounter
--- OUTSIDE RECORDS SUMMARY | 2025-07-12 10:08 | XMS_ITS | Encounter Summary ---
Author Organization [employer] ([place], [place], [place], [place], [place]) Address [address] [place] [address] Care Team Providers Care Special Officer Name Role Phone Maya Torres SIMI Primary Care Provider +1- [phone] Encounter Details Date Type Department Care Team (Late st Contact Info) Description 10/27/2020 Transcribed Document [facility] Family Medicine [facility] [address] ProviderJean MD [address] [place] [address] Social History Tobacco Use Types Packs/Day Years [...] EDT Height Source Stated Height Entry Format [place] Height/Length, [place] (ft) 5 ft Height/Length [place] 8 Inch CLINICALHEIGHT 172.72 cm [place] Body Weight 67.45 kg Weight Source, ED Critical estimated dosing weight Weight Entry Format [place] Weight [place] lb 250 lb CLINICALWEIGHT 113.64 kg Body [...] Color Yellow Urine Appearance Clear Urine Specific [place] 1.006 Urine pH Dipstick 6.5 Urine Leukocyte [...] % LOW ALYC # 1 K/uL NA [place] Percent Man 2 % LOW Eos Percent Man 1 % Baso Percent Man 1 % Myelo Percent Man 2 % HI RBC Morphology Normal Platelet Ct Estimate Adequate Slide Review Add Diff Man PT 9.9 Second(s) INR 0.9 PTT 25.2 Second(s) Procalcitonin <0.25 ng/mL SARS-CoV-2 (COVID19 PCR) Negative . Radiology results: Radiology Results (Last 48 hours) [id number] -- 10/27/2020 11:59 CT Abdomen Pelvis W [...] on filedocumented in this encounter Care Teams Special Officer Relationship Specialty Start Date End Date Maya Torres, SHOVEL HANDLE ASSEMBLER [address] [phone] PCP - General Family Medicine 08/27/22 documented as of this encounter
--- OUTSIDE RECORDS SUMMARY | 2025-07-12 10:08 | XMS_ITS | Encounter Summary ---
Author Organization [employer] ([place], [place], [place], [place], [place]) Address [address] [place] [address] Care Team Providers Care Franchise Development Manager Name Role Phone Maya Torres Reji BELCHER Primary Care Provider +1- [phone] Encounter Details Date Type Department Care Team (Late st Contact Info) Description 10/27/2020 Transcribed Document [facility] [place] [facility] [place] [address] ProviderJean MD [address] [place] [address] Social History Tobacco Use [...] 10/27/2020 12:55:00 EDT fentaNYL,50mcg IV Push,Left Antecubital [place] Pain Assessment Pain Scale Used : 0-10 [...] on filedocumented in this encounter Care Teams Franchise Development Manager Relationship Specialty Start Date End Date Maya Torres, OFFICE SYSTEMS TECHNOLOGY INSTRUCTOR [address] [phone] PCP - General Family Medicine 08/27/22 documented as of this encounter
--- OUTSIDE RECORDS SUMMARY | 2025-07-12 10:08 | XMS_ITS | Encounter Summary ---
Author Organization [employer] ([place], [place], [place], [place], [place]) Address [address] [place] [address] Care Team Providers Care Logistics Planner Name Role Phone aMya Torres Reji BELCHER Primary Care Provider +1- [phone] Encounter Details Date Type Department Care Team (Late st Contact Info) Description 10/27/2020 Transcribed Document [facility] Family Medicine [address] [place] [address] ProviderJean MD [address] [place], [place] [id number] Social History Tobacco Use Types Packs/Day Years Used Date Smoking Tobacco: Never Assessed Sex and Gender Information Value Date Recorded Sex Assigned at Not on file Legal Sex Male 5:19 PM CDT Gender Identity Not on file Sexual Orientation Not on file documented as of this encounter Miscellaneous Notes * [employer]ner Conversion Note - Jean ProviderMD - 10/27/2020 11:59 AM CDT [place] Suicide Severity Rating Scale (C-SSRS) Entered On: 10/27/2020 12:32 EDT Performed On: 10/27/2020 12:21 EDT by Jasmin Thornton RN [place] Suicide Severity Rating Scale (C-SSRS) CSSRS Past [...] on filedocumented in this encounter Care Teams Logistics Planner Relationship Specialty Start Date End Date Maya Torres, IMPROVEMENT SPEC [address] [phone] PCP - General Family Medicine 08/27/22 documented as of this encounter
--- OUTSIDE RECORDS SUMMARY | 2025-07-12 10:09 | XMS_ITS | Encounter Summary ---
Author Organization [employer] ([place], [place], [place], [place], [place]) Address [address] [place] [address] Care Team Providers Care Associate Data Scientist Name Role Phone Maya Torres Reji BELCHER Primary Care Provider +1- [phone] Encounter Details Date Type Department Care Team (Late st Contact Info) Description 10/18/2020 Transcribed Document [facility] [place] [facility] [place] [address] ProviderJean MD [address] [place] [address] Social History Tobacco Use Types Packs/Day Years [...] on filedocumented in this encounter Care Teams Associate Data Scientist Relationship Specialty Start Date End Date Maya Torres, ENERGY SALES CONSULTANT [address] [phone] PCP - General Family Medicine 08/27/22 documented as of this encounter
--- OUTSIDE RECORDS SUMMARY | 2025-07-12 10:09 | XMS_ITS | Patient Health Record ---
Author Organization [facility] Address [address] [facility] [address] [place] [address] Care Team Providers Care Artist And Repertoire Manager Name Role Phone Jerome Morrissey II Unavailable [phone] Michael COLEMAN -Issa Barry MD Unavailable [phone] Allergies No Known Allergies Reason For Referral [...] Status Risk Notes Problem Chronic pain syndrome (742323555) Chronic pain syndrome (G89.4) Active confirmed Problem Complex regional pain syndrome of lower limb (disorder) (861494485) Complex regional pain syndrome I of unspecified lower limb (G90.529) Active confirmed Problem Cervical spondylosis without myelopathy (716888110) Other spondylosis with radiculopathy, cervical region (M47.22) Active confirmed Problem Cervical spondylosis without myelopathy (516540543) Spondylosis without myelopathy or radiculopathy, cervical region (M47.812) Active confirmed Problem Lumbosacral spondylosis without myelopathy (02801079) Spondylosis without myelopathy or radiculopathy, lumbar region (M47.816) Active confirmed Problem Cervicalgia (31529503) Cervicalgia (M54.2) Active confirmed Problem Post-laminectom y syndrome (14343818) Postlaminectomy syndrome, not elsewhere classified (M96.1) Active confirmed Problem Long-term current use of drug therapy (308961779) Other parts counterman (current) drug therapy (Z79.899) Active confirmed Problem Lumbar spondylosis (278601454) lumbar spondylosis (M47.816) Active confirmed Vital Signs Heart Rate 80 /min 10/19/2024 Blood pressure diastolic 75 mm Hg 10/19/2024 Height 69 in 10/19/2024 Blood pressure systolic 158 mm Hg 10/19/2024 Weight 250 lbs 10/19/2024 BMI 36.91 kg/m2 10/19/2024 Encounters Encounter Location Date Provider Diagnosis [facility] [address] [facility] [address] [place] [address] 10/19/2024 Jerome Morrissey Other correction (current) drug therapy [...] once again for the long-term. 10/19/2024 Other parts counterman (current) drug therapy (ICD-10 - Z79.899) 04/02/2024 1. Discontinue [place] 5/325mg QD PRN 2. FU PRn Mr. [...] Coverage End Date [place] [address] [id number] Stephane Mendieta Self - patient is the insured 8 [employer] Medicare Supplement [address] [place] [phone] [id number] Stephane Mendieta Self - patient is the insured 8 Medical (General) History Medical History History ICD Code anxiety / Managed by PCP Surgical History Surgery Date(Month/Year) Back surgery / Dr. Rodriguez 09/2019 right knee replacement
--- OUTSIDE RECORDS SUMMARY | 2025-07-12 10:09 | XMS_ITS | Encounter Summary ---
Author Organization [employer] ([place], [place], [place], [place], [place]) Address [address] [place] [address] Care Team Providers Care Measuring Machine Tender Name Role Phone Maya Torres Reji BELCHER Primary Care Provider +1- [phone] Encounter Details Date Type Department Care Team (Late st Contact Info) Description 10/18/2020 Transcribed Document [facility] [place] [address] [place] [address] ProviderJean MD [address] [place], [place] [address] Social History Tobacco Use Types Packs/Day Years Used Date Smoking Tobacco: Never Assessed Sex and Gender Information Value Date Recorded Sex Assigned at Not on file Legal Sex Male 5:19 PM CDT Gender Identity Not on file Sexual Orientation Not on file documented as of this encounter Miscellaneous Notes * [employer]ner Conversion Note - Jean ProviderMD - 10/18/2020 7:05 PM CDT [place] Suicide Severity Rating Scale (C-SSRS) Entered On: 10/18/2020 19:42 EDT Performed On: 10/18/2020 19:41 EDT by Dee Ocampo RN [place] Suicide Severity Rating Scale (C-SSRS) CSSRS Past [...] on filedocumented in this encounter Care Teams Measuring Machine Tender Relationship Specialty Start Date End Date Maya Torres, STRIKE PLATE ATTACHER [address] [phone] PCP - General Family Medicine 08/27/22 documented as of this encounter
--- OUTSIDE RECORDS SUMMARY | 2025-07-12 10:09 | XMS_ITS | Encounter Summary ---
Author Organization [employer] ([place], [place], [place], [place], [place]) Address [address] [place] [address] Care Team Providers Care Manager Sports Name Role Phone Maya Torres Reji BELCHER Primary Care Provider +1- [phone] Encounter Details Date Type Department Care Team (Late st Contact Info) Description 06/16/2018 Transcribed Document [facility] [place] [facility] [place] [address] ProviderJean MD [address] [place], [place] [address] Social History Tobacco Use Types Packs/Day Years Used Date Smoking Tobacco: Never Assessed Sex and Gender Information Value Date Recorded Sex Assigned at Not on file Legal Sex Male 5:19 PM CDT Gender Identity Not on file Sexual Orientation Not on file documented as of this encounter Miscellaneous Notes * [employer]ner Conversion Note - Jean Sawant MD - 06/16/2018 8:43 AM BICYCLE REPAIRMAN Patient: ISATU MENDIETA Age: 67 Years Sex: [...] 84 CXR- NAD Electronically signed by Ileana, [facility] Conversion Cardiac Sonographer [employer]ner at 11/04/2022 3:24 PM CDT documented in this encounter Plan of Treatment Not on file documented as of this encounter Visit Diagnoses Not on filedocumented in this encounter Care Teams Manager Sports Relationship Specialty Start Date End Date Maya Torres, DISHROOM ATTENDANT [address] [phone] PCP - General Family Medicine 08/27/22 documented as of this encounter
--- OUTSIDE RECORDS SUMMARY | 2025-07-12 10:09 | XMS_ITS | Encounter Summary ---
Author Organization [employer] ([place], [place], [place], [place], [place]) Address [address] [place] [address] Care Team Providers Care Supply Analyst Name Role Phone Maya Torres Reji BELCHER Primary Care Provider +1- [phone] Encounter Details Date Type Department Care Team (Late st Contact Info) Description 10/18/2020 Transcribed Document [facility] [place] Family Medicine [address] [place] [address] ProviderJean MD [address] [place] [address] Social History Tobacco Use [...] : Low risk (0) [place] Interventions : [place] precautions for safety used Dee Ocampo, HOLA - 10/18/2020 19:41 EDT Electronically signed by I[facility] Conversion Engineering Operations Leader Cerner at 11/04/2022 3:34 PM CDT documented in this encounter Plan of Treatment Not on file documented as of this encounter Visit Diagnoses Not on filedocumented in this encounter Care Teams Supply Analyst Relationship Specialty Start Date End Date Maya Torres, ABAP DEVELOPER [address] [phone] PCP - General Family Medicine 08/27/22 documented as of this encounter
--- OUTSIDE RECORDS SUMMARY | 2025-07-12 10:09 | XMS_ITS | Encounter Summary ---
Author Organization [employer] ([place], [place], [place], [place], [place]) Address [address] [place] [address] Care Team Providers Care Mat Machine Operator Name Role Phone Maya Torres APRN Primary Care Provider +1- [phone] Encounter Details Date Type Department Care Team (Late st Contact Info) Description 10/18/2020 Transcribed Document [facility] [place] [address] [place] [address] ProviderJean MD [address] [place] [address] Social History Tobacco Use Types [...] 10/18/2020 9:20 PM CDT Electronically signed by [facility] Conversion Telephone Recorder Cerner at 11/04/2022 3:18 PM CDT documented in this encounter Plan of Treatment Not on file documented as of this encounter Visit Diagnoses Not on filedocumented in this encounter Care Teams Mat Machine Operator Relationship Specialty Start Date End Date Maya Torres APRN [address] [facility] [address] [place] [address] PCP - General Family Medicine 08/27/22 documented as of this encounter
--- OUTSIDE RECORDS SUMMARY | 2025-07-12 10:09 | XMS_ITS | Clinical Summary ---
[facility] Organization [facility] Address [address] [place] [address] Care Team Providers Care Snailer Name Role Phone Maya Torres Primary Care Provider + [phone] Allergies No known active allergies Medications DULoxetine [...] Completed 10/27/2020 Medical Devices Implanted Type Area Automotive Fuel Injection Servicer Device Identifier Shelf Expiration Date Model / Serial / Lot Ld Stim Precsn Trial Lnr 8contct St/Tp50 - [id number] - [id number] Implanted:Qty : 1 on 10/05/2022 by Jerome oMrrissey MD at [facility] Implant N/A: Spine Thoracic [employer] 08/30/2024 [id number] / [id number] / Ld Stim Precsn Trial Lnr 8contct St/Tp50 - [id number] - [id number] Implanted:Qty : 1 on 10/05/2022 by Jerome Morrissey MD at [facility] Implant N/A: Spine Thoracic [employer] 08/26/2024 [id number] / [id number] / Anchr Ld Scs Clikx Ea/St/2 - [id number] Implanted:Qty : 1 on 10/05/2022 by Jerome Morrissey MD at [facility] Implant N/A: Spine Thoracic [employer] 01/06/2024 [id number] / / [id number] Kt Ipg Wavewriter Alpha 16/Contct - [id number] - [id number] Implanted:Qty : 1 on 10/05/2022 by Jerome Morrissey MD at [facility] Implant N/A: Spine Thoracic [employer] [id number] 09/13/2024 [id number] / [id number] / [id number] Insurance MEDICARE A & B Member Subscriber Plan / Payer (Ef fective 2017-Present) Name:Stephane Mendieta Member ID:[id number] Relation to Subscriber:Self Name:Stephane Mendieta Subscriber ID:[id number] Payer ID:[id number] Group ID:Not on file Type:Not on file Address: [facility] [id number] [place] [id number] [facility] [employer] Care Teams Snailer Relationship Specialty Start Date End Date Maya Torres Kaylyn [place] [id number] PCP - General Nurse Practitioner 09/28/22
--- OUTSIDE RECORDS SUMMARY | 2025-07-12 10:09 | XMS_ITS | Encounter Summary ---
Author Organization [employer] ([place], [place], [place], [place], [place]) Address [address] [place] [address] Care Team Providers Care Color Straining Bag Washer Name Role Phone Maya Torres SIMI Primary Care Provider +1- [phone] Encounter Details Date Type Department Care Team (Late st Contact Info) Description 10/18/2020 Transcribed Document [facility] [place] Family Medicine [address] [place] [address] ProviderJean MD [address] [place], [place] [address] Social History Tobacco Use Types Packs/Day Years [...] Communication Barrier : None Primary Language : Moldovan Any Spiritual/Cultural Needs or Requests : No [...] on filedocumented in this encounter Care Teams Color Straining Bag Washer Relationship Specialty Start Date End Date Maya Torres, BAR MACHINE OPERATOR PRODUCTION [address] [phone] PCP - General Family Medicine 08/27/22 documented as of this encounter
--- OUTSIDE RECORDS SUMMARY | 2025-07-12 10:09 | XMS_ITS | Encounter Summary ---
Author Organization [employer] ([place], [place], [place], [place], [place]) Address [address] [place] [address] Care Team Providers Care Resource Conservationist Name Role Phone Maya Torres Reji BELCHER Primary Care Provider +1- [phone] Encounter Details Date Type Department Care Team (Late st Contact Info) Description 10/18/2020 Transcribed Document [facility] [place] Family Medicine [facility] [place] [address] ProviderJean MD [address] [place], [place] [id number] Social History Tobacco Use Types Packs/Day Years [...] On: 10/18/2020 19:09 EDT by SUSHMA MARQUEZ, CAMPAIGN MARKETING MANAGER Triage Across the Room Chief Complaint [...] : 3 - Urgent Tracking Group : [facility] SUSHMA MARQUEZ RN - 10/18/2020 19:09 [...] Problems(Active) At risk for sleep apnea (IMO :76862923 ) Name of Problem: At risk for sleep apnea ; Recorder: SYSTEM, SYSTEM; Confirmation: Confirmed ; Classification: Medical ; Code: [id number] ; Last Updated: 06/16/2018 8:18 EST ; Life Cycle Date: 06/16/2018 ; Life Cycle Status: Active ; Vocabulary: IMO Enlarged prostate (SNOMED CT :091234292 ) Name of Problem: Enlarged prostate ; Recorder: Shavonne Jimenez RN; Confirmation: Confirmed ; Classification: Medical ; Code: 179298938 ; Contributor System: CMP.LYChart ; Last Updated: 06/16/2018 8:22 EST ; Life Cycle Date: 06/16/2018 ; Life Cycle Status: Active ; Vocabulary: SNOMED CT Hypertension (SNOMED CT :7339512124 ) Name of Problem: Hypertension ; Recorder: Shavonne Jimenez RN; Confirmation: Confirmed ; Classification: Medical ; Code: 0411101616 ; Contributor System: CMP.LYChart ; Last Updated: 06/16/2018 8:21 EST ; Life Cycle Date: 06/16/2018 ; Life Cycle Status: Active ; Vocabulary: SNOMED CT Seasonal allergies (SNOMED CT :5949134446 ) Name of Problem: Seasonal allergies ; Recorder: Shavonne Jimenez RN; Confirmation: Confirmed ; Classification: Medical ; Code: 5250262184 ; Contributor System: PowerChart ; Last Updated: 06/16/2018 8:22 EST ; Life Cycle Date: 06/16/2018 ; Life Cycle Status: Active ; Vocabulary: SNOMED CT Diagnoses(Active) Rib/trunk pain-swelling Date: 10/18/2020 ; Diagnosis Type: Reason For Visit ; Confirmation: Complaint of ; Clinical Dx: Rib/trunk pain-swelling ; Classification: Medical ; Clinical Service: Emergency medicine ; Code: PNED ; Probability: 0 ; Diagnosis Code: [id number] ED Height and Weight Height Source : Stated Height Entry Format : [place] Height, Feet : 5 ft(Converted to: 152 cm, 60 Inch) Height, Inches : 8 Inch(Converted to: 0 ft 8 Inch, 20.32 cm) Clinical Height : 172.72 cm Weight Source, ED : Critical estimated dosing weight Weight Entry Format : [place] Weight, Pounds : 240 lb Clinical Dosing Weight : 109.09 kg Body Surface Area (BSA) : 2.21 m2 Body Mass Index : 36.6 kg/m2 (HI) [place] Body Weight (IBW) : 67.45 kg SUSHMA MARQUEZ RN - 10/18/2020 19:09 EDT documented in this encounter Plan of Treatment Not on file documented as of this encounter Visit Diagnoses Not on filedocumented in this encounter Care Teams Resource Conservationist Relationship Specialty Start Date End Date Maya Torres, ROTARY DRUM DYER [address] [phone] PCP - General Family Medicine 08/27/22 documented as of this encounter
--- OUTSIDE RECORDS SUMMARY | 2025-07-12 10:09 | XMS_ITS | Encounter Summary ---
Author Organization [employer] ([place], [place], [place], [place], [place]) Address [address] [place] [address] Care Team Providers Care Land Leasing Examiner Name Role Phone Maya Torres Reji BELCHER Primary Care Provider +1- [phone] Encounter Details Date Type Department Care Team (Late st Contact Info) Description 10/27/2020 Transcribed Document [facility] [place] [address] [place] [address] ProviderJean MD [address] [place] [address] Social History Tobacco Use Types [...] On: 10/27/2020 12:21 EDT by Jasmin Thornton GUM SPRAYER General-Functional Assess Preferred Communication Mode : Verbal Communication Barrier : None Primary Language : Sammarinese Any Spiritual/Cultural Needs or Requests : No [...] Rhythm : Regular Nail Bed Color : Glidden Chest Pain : No Capillary Refill, Left [...] lower abdominal area (horizontal in nature) [Jasmin hTornton RN - 10/27/2020 12:21 EDT] ) Cough [...] mm Pupil Size, Right : 3 mm [place] Coma Scale Link : Open GCS Jasmin Thornton RN - 10/27/2020 12:21 EDT Diana Coma Diana Best Motor Response : Obey commands Diana Best Verbal Response : Oriented [place] Eye Opening Response : Spontaneous [place] Coma Score : 15 Jasmin Thornton RN - 10/27/2020 12:21 EDT Electronically signed by [facility] Conversion Foil Spinner Cerner at 11/04/2022 3:11 PM CDT documented in this encounter Plan of Treatment Not on file documented as of this encounter Visit Diagnoses Not on filedocumented in this encounter Care Teams Land Leasing Examiner Relationship Specialty Start Date End Date Maya Torres, POCKET CUTTER [address] [phone] PCP - General Family Medicine 08/27/22 documented as of this encounter
--- OUTSIDE RECORDS SUMMARY | 2025-07-12 10:09 | XMS_ITS | Encounter Summary ---
Author Organization [employer] ([place], [place], [place], [place], [place]) Address [address] [place] [address] Care Team Providers Care Production Line Assembler Name Role Phone Maya Torres Reji BELCHER Primary Care Provider +1- [phone] Encounter Details Date Type Department Care Team (Late st Contact Info) Description 10/18/2020 Transcribed Document [facility] [place] Family [place] [address] ProviderJean MD [address] [place] [address] Social History Tobacco Use Types [...] Sawant MD - 10/18/2020 9:38 PM CDT [facility] [place], [place] [id number] ISATU MENDIETA :1950 Visit Time:10/18/2020 Your Visit [...] to ED if symptoms worsen. Where: [address] [facility] [address] [place] [address] Business (1) Follow Up with JACKIE LEONARD When Within 2 to 3 days Allergies No Known Medication Allergies Immunizations This Visit No Immunizations Found Medications What How Much When Instructions Next Dose codeine-guaifenesin (codeine-guaifenesin 6.3 mg-100 mg/ 5 mL oral liquid) 7.5 Milliliter(s) Oral Every 6 Hours as needed for for cough Pickup at [facility] dextromethorphan-guaifenesin (dextromethorphan-guaifenesin 5 [...] 24HR 55 mcg/ inh nasal spray) 1 [place](s) Nasal Two Times A Day Pharmacy Information [facility]: [address] [place], [place] [id number] [phone] The home medications listed are only as [...] safe for you. General instructions ??? Take uoep-axu-tqfldll and prescription medicines only as told by [...] Reviewed: 01/04/2019 Vince Patient Education ?? 2020 [employer]. Emergency Awareness and Preventative Care STROKE is [...] Assistance with quitting is available by contacting 5-293-CIJF-NOW. This is a free resource providing counseling, [...] was given the opportunity to ask questions. Patient/Foundation Relations Director Name: Patient/Foundation Relations Director Signature: Relationship to Patient: Clinician/Hospital Foundation Relations Director Signature: Please Provide a Telephone Number Where You Can Be Reached: Is it Permissible To Leave a Message? Date: Electronically signed by Becky Tejeda Conversion Special Warfare Combatant Crewman Vita at 11/04/2022 3:16 PM CDT documented in this encounter Plan of Treatment Not on file documented as of this encounter Visit Diagnoses Not on filedocumented in this encounter Care Teams Production Line Assembler Relationship Specialty Start Date End Date Maya Torres, SIMI [address] [phone] PCP - General Family Medicine 08/27/22 documented as of this encounter
[2025-07-12 10:40] VITALS: BP 138/71; PULSE 65; RESP 19; O2SAT 96
[2025-07-12] MEDS: DAPTOmycin 1,000 MG in 0.9 % SODIUM CHLORIDE 50 ML 100 MG IV (10:40)
[2025-07-12 11:30] VITALS: BP 158/90; PULSE 86; RESP 20; O2SAT 95
== END 2025-07-12 23:59 | disposition home or self-care (01) ==
PROVIDERS: PCP Nurse Practitioner; Visit Provider Internal Medicine Infectious Disease
DX: T85.73 Infection and inflammatory reaction due to nervous system devices, implants and graft (principal)
CPT/HCPCS: 96365; 96523; J0878

== ENCOUNTER 2025-07-13 10:17 | Outpatient (CLI) | payer MEDICARE, OTHER, SELFPAY ==
--- OUTSIDE RECORDS SUMMARY | 2022-12-01 11:56 | XMS_ITS | Encounter Summary ---
[facility] Address [address] [place] [address] Care Team Providers Care Manager Application Name Role Phone Maya Torres Primary Care Provider + [phone] Encounter Details Date Type Department Care Team (Late st Contact Info) Description 12/01/2022 12:56 PM EDT Hospital Encounter [facility] PULMONARY & CRITICAL CARE MEDIC[facility] [place] [address] Social History Tobacco Use Types [...] Narrative 12/01/2022 1:31 PM EDT Stephane Annton [id number] 12/01/2022 Chest X-Ray PA & Lateral Indication: [...] on filedocumented in this encounter Care Teams Manager Application Relationship Specialty Start Date End Date Maya Torres [address] [place] [address] PCP - General Nurse Practitioner 09/28/22 documented as of this encounter
--- OUTSIDE RECORDS SUMMARY | 2024-04-27 06:30 | XMS_ITS ---
Author Organization [facility] Address [address] [place] [address] Care Team Providers Care It Security Consultant Name Role Phone Jerome Morrissey II Unavailable Michael COLEMAN -Pramod Velazquez MD, Issa Unavailable [phone] Allergies No Known Allergies REASON FOR VISIT Leg Pain (LT), Low back pain Medications Medication SIG (Take, Route, Frequency, Duration) Notes Start Date End Date Status Fluticasone Propionate 50 mcg intranasal use 05/20/2022 Active tamsulosin 0.4 mg 1 cap(s) orally once a day; Duration: 30 day(s) 05/20/2022 Active traZODone 150 mg as directed orally 05/20/2022 Active DULoxetine 60 mg 1 cap(s) orally once a day; Duration: 30 day(s) 05/20/2022 Active sulfaSALAzine 500 mg ; Duration: 90 Active LORazepam 1 mg 1 tab(s) orally once daily Active gabapentin 300 mg 1 cap(s) orally once a day Active Losartan 100 mg ; Duration: 90 Active montelukast 10 mg 1 tab(s) orally once a day; Duration: 30 day(s) 05/20/2022 Active omeprazole 40 mg ; Duration: 90 Active levoFLOXacin 500 mg 1 tab(s) orally ever y 24 hours; Duration: 6 day(s) 08/09/2022 Active Encounters Encounter Location Date Provider Diagnosis [facility] [address] [place] [address] 04/27/2024 Jerome Morrissey Other [facility] (current) drug therapy Z79.899 ; Spondylosis without myelopathy or radiculopathy, cervical region M47.812 ; Postlaminectomy syndrome, not elsewhere classified M96.1 and Spondylosis without myelopathy or radiculopathy, lumbar region M47.816 Assessments Encounter Date Diagnosis (ICD Code) Assessment Notes Treatment Notes Treatment Clinical Notes Section Notes 04/27/2024 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 Discontinue Henriette 5/325mg QD PRN 2. FU 1 month with Yuni 3. [facility] to change SCS settings 4. S/P TFESI LT L5/S1 Mr. Yanez returns today for an office visit. He is continuing to have issues with the neuropathic pain in the left lower extremity. This is despite our efforts to reprogram the spinal cord stimulator. He is complaining of pain in the L5 nerve root distribution on the left. It may be that a transforaminal epidural at L4-5 on the left would be helpful here. It has primarily been the last 2 weeks that these radicular symptoms have increased to the point where they are interfering with most all of his activities of daily living. Should he not respond to the transforaminal epidural steroid injection I would obtain an MRI and see if he has new issues with nerve root compression in this distribution. 04/02/2024 Here today for follow up. Patient continues to have nerve pain that starts in the left hip that radiates down the left side of the leg and stops at the left knee. Patient reports that he has been experiencing nerve pain since October. He received no relief with TFESI LT in January. [employer] rep in the room changing SCS settings. Patient should notice a difference in pain within the next 2-3 days, if pain continues after the third day patient encourage to call the office. Patient also verbalized that he discontinue the Hydrocodone. Last time he has taken his Hydrocodone was over a month ago. Denies experiencing withdrawls with discontinuing medication. Patient reports that he never received no relief that he does better with two extra strength Tylenol. Will have him to follow up in one month with . 02/08/2024 - #1 TFESI LT L5/S1 no relief 04/27/2024 Spondylosis without myelopathy or radiculopathy, cervical region (ICD-10 - M47.812) Mr. Yanez returns today for an office visit. He is continuing to have issues with the neuropathic pain in the left lower extremity. This is despite our efforts to reprogram the spinal cord stimulator. He is complaining of pain in the L5 nerve root distribution on the left. It may be that a transforaminal epidural at L4-5 on the left would be helpful here. It has primarily been the last 2 weeks that these radicular symptoms have increased to the point where they are interfering with most all of his activities of daily living. Should he not respond to the transforaminal epidural steroid injection I would obtain an MRI and see if he has new issues with nerve root compression in this distribution. 04/02/2024 Here today for follow up. Patient continues to have nerve pain that starts in the left hip that radiates down the left side of the leg and stops at the left knee. Patient reports that he has been experiencing nerve pain since October. He received no relief with TFESI LT in January. [employer] rep in the room changing SCS settings. Patient should notice a difference in pain within the next 2-3 days, if pain continues after the third day patient encourage to call the office. Patient also verbalized that he discontinue the Hydrocodone. Last time he has taken his Hydrocodone was over a month ago. Denies experiencing withdrawls with discontinuing medication. Patient reports that he never received no relief that he does better with two extra strength Tylenol. Will have him to follow up in one month with . 02/08/2024 - #1 TFESI LT L5/S1 no relief 04/27/2024 Postlaminectomy syndrome, not elsewhere classified (ICD-10 - M96.1) Mr. Yanez returns today for an office visit. He is continuing to have issues with the neuropathic pain in the left lower extremity. This is despite our efforts to reprogram the spinal cord stimulator. He is complaining of pain in the L5 nerve root distribution on the left. It may be that a transforaminal epidural at L4-5 on the left would be helpful here. It has primarily been the last 2 weeks that these radicular symptoms have increased to the point where they are interfering with most all of his activities of daily living. Should he not respond to the transforaminal epidural steroid injection I would obtain an MRI and see if he has new issues with nerve root compression in this distribution. 04/02/2024 Here today for follow up. Patient continues to have nerve pain that starts in the left hip that radiates down the left side of the leg and stops at the left knee. Patient reports that he has been experiencing nerve pain since October. He received no relief with TFESI LT in January. [employer] rep in the room changing SCS settings. Patient should notice a difference in pain within the next 2-3 days, if pain continues after the third day patient encourage to call the office. Patient also verbalized that he discontinue the Hydrocodone. Last time he has taken his Hydrocodone was over a month ago. Denies experiencing withdrawls with discontinuing medication. Patient reports that he never received no relief that he does better with two extra strength Tylenol. Will have him to follow up in one month with . 02/08/2024 - #1 TFESI LT L5/S1 no relief 04/27/2024 Spondylosis without myelopathy or radiculopathy, lumbar region (ICD-10 - M47.816) Mr. Yanez returns today for an office visit. He is continuing to have issues with the neuropathic pain in the left lower extremity. This is despite our efforts to reprogram the spinal cord stimulator. He is complaining of pain in the L5 nerve root distribution on the left. It may be that a transforaminal epidural at L4-5 on the left would be helpful here. It has primarily been the last 2 weeks that these radicular symptoms have increased to the point where they are interfering with most all of his activities of daily living. Should he not respond to the transforaminal epidural steroid injection I would obtain an MRI and see if he has new issues with nerve root compression in this distribution. 04/02/2024 Here today for follow up. Patient continues to have nerve pain that starts in the left hip that radiates down the left side of the leg and stops at the left knee. Patient reports that he has been experiencing nerve pain since October. He received no relief with TFESI LT in January. [employer] rep in the room changing SCS settings. Patient should notice a difference in pain within the next 2-3 days, if pain continues after the third day patient encourage to call the office. Patient also verbalized that he discontinue the Hydrocodone. Last time he has taken his Hydrocodone was over a month ago. Denies experiencing withdrawls with discontinuing medication. Patient reports that he never received no relief that he does better with two extra strength Tylenol. Will have him to follow up in one month with . 02/08/2024 - #1 TFESI LT L5/S1 no relief Plan Of Treatment Treatment Notes Assessment Notes Other [facility] (current) drug therapy 04/02/2024 1. Discontinue Henriette 5/325mg QD PRN 2. FU 1 month with Yuni 3. [employer] rep to change SCS settings 4. S/P TFESI LT L5/S1 Pending Test Test Name Order Date Urine Test ANALYZER 04/27/2024 Procedure Notes * Category Sub-Category Detail Notes PROVIDER ENCOUNTER AND OVERSIGHT Consult Performed By: Mack Steele (APRN-LEX) 04/02/2024 9:45:22 AM > collaborated treatment plan with Jerome crandall M.D., supervising physician who was present in office during consultation Progress Notes * Stephane YANEZ ADOB: 3 (74 yo M)Acc No.[id number]:04/27/2024 FollowUP Patient: Stephane RODRIGUEZ Provider: Reji Morrissey II, M.D. :1950 A ge:73 Y S ex:Male Date:04/27/2024 Address:[address] [place], [place] [id number] Subjective: * Chief Complaints: * 1 . Leg Pain (LT). 2. Low back pain. * HPI: T ODAYS PAIN EVALUATION: 73 year old male presents with c/o MEDICATION FOLLOW UP: P atient does not wnat any more opioids. CURRENT PAIN SYMPTOMS: L ocation of Worst Pain: L ow Back, Leg(s) Left, P ain Frequency: c onstant, P ain Description: s harp, A verage Pain Score VAS: 1 0, P ain Exacerbation: walking, P ain Alleviation: s itting, A DL/Quality of Life Interference: Everything. P AIN MANAGEMENT TREATMENT HISTORY: IMAGING HISTORY: 1 MRI Lumbar:Interval postoperative changes at L4/5. Overall stable to slightly progressed degenerative changes of the lumbar spine with multilevel moderate to advanced foraminal encroachment . P REVIOUS INJECTION\PROCEDURE HISTORY:? 0 08/21/2019#1 SIJI RT 20% relief for 1 hour 0 08/09/2022SCS Trial Gregory 80% relief for 1 week 0 02/13/2024#1 TFESI LT L5/S1 0% relief . P HYSICAL/AQUA THERAPY/DME/OTHER HISTORY: 2 -2023 Chiropractic therapy program complete 1 08/2022-Present: Patient continues a prescribed home exercise program 3-5 times per week which includes walking, lumbar stretches, and alternating leg lifts . P ERTINENT SURGICAL EVALUATIONS/SPECIALIST CONSULTS 1 - Dr. Rodriguez - No surgery recommened, recommends SCS trial . P REVIOUS PAIN CLINIC CARE: Reji dotson . S MIGEL OF INITIAL EVALUATION: 1 New patient consult referred by Michael COLEMAN for chronic back pain onset in 2018 without incident Otf javed was referred here in consultation for evaluation and treatment of their chronic pain. Most severe pain is in his low back radiating into the side of the right leg. Patient has secondary pain in his neck radiating into the left arm. Pain began in July 2018. Former pt of Dr. Saunders. Denies bowel or bladder incontinence. Denies saddle anesthesia . C OMPLIANCE: RISK ASSESSMENT AND STRATIFICATION: R ISK GROUP: MODERATE RISK . U RINE DRUG TESTIN 01/11/2024 Screen Expected Definitive Expected 0 02/08/2024 Screen Expected Definitive Expected 0 04/02/2024 Screen Expected. M ONITORING:? M orphine Equivalent (MME): 0 K ASPER reviewed today and appropriate . T ESTING/RISK ASSESSMENTS O RT Score/Result:. * ROS: G ENERAL: Fever D enies. H EENT: Sore throat D enies. C ARDIOVASCULAR: Positive for d enies cardiovascular symptoms. ? R ESPIRATORY: Positive for d enies respiratory issues. G ASTROINTESTINAL: Positive for d enies abdominal issues. G ENITOURINARY: Positive for d enies genitourinary issues. M USCULOSKELETAL: Positive for L ow back pain. N EUROLOGICAL: Positive for d enies neurological issues. P SYCHIATRIC: Positive for a nxiety. E NDOCRINE: Positive for d enies endocrine issues. * Medical History: a nxiety / Managed by PCP. * Surgical History: r ight knee replacement , Back surgery / Dr. Rodriguez 09/2019. * Hospitalization/Major Diagno stic Procedure: D enies Past Hospitalization. * Family History: N on-Contributory. Denies Family History of Substance Abuse. * Social History: S moking: no C igarettes Denies. * Medications: T aking levoFLOXacin 500 mg tablet 1 tab(s) orally every 24 hours , Taking LORazepam 1 mg tablet 1 tab(s) orally once daily , Taking gabapentin 300 mg capsule 1 cap(s) orally once a day , Taking Losartan 100 mg tablet , Taking montelukast 10 mg tablet 1 tab(s) orally once a day , Taking omeprazole 40 mg delayed release capsule , Taking sulfaSALAzine 500 mg tablet , Taking Fluticasone Propionate 50 mcg intranasal use , Taking tamsulosin 0.4 mg capsule 1 cap(s) orally once a day , Taking traZODone 150 mg tablet as directed orally , Taking DULoxetine 60 mg delayed release capsule 1 cap(s) orally once a day , Medication List reviewed and reconciled with the patient * Allergies: N .K.D.A. Objective: * Vitals: * Examination: G eneral Examination: Nurse/Inventory Transcriber: Phill McnamaraMA-[facility])Madeleine 04/02/2024 9:48:48 AM > . General Appearance: w ell-nourished individual in no acute distress. The patient is alert and oriented and cooperative for evaluation. HEENT: unremarkable. Neck, Thyroid : supple. Heart: regular rate and rhythm , no murmurs. Lungs: clear to auscultation bilaterally, no wheezes/rhonchi/rales. Neurologic Exam: P atient ambulates with an antalgic gait, pitched forward. Skin normal, no rash. Extremities: no clubbing, no edema. ? L umbar Spine/Lower Back: Palpation: diffuse tenderness throughout lumbar region, most particularly over lower lumbar facet joints. Spasms absent. Inspection: S eduardo alignment no abnormal curvature noted, surgical scar appears well-healed . Straight leg raising test: negative bilaterally. Sensory exam: s ensation intact to light touch throughout bilateral lower extremities, no edema or discoloration noted. Motor system: m otor strength 5/5 in all muscle groups bilaterally. Range of motion: R OM moderately limited, moderate pain induced. Hyperextension - Pain with Facet loading. C ervical Spine/Neck: Motor strength: m otor strength symmetric and 5/5, DTRs symmetric and 2+/4. Paraspinal muscle spasm: D iffuse tenderness with spasms noted. Sensations: s ensation intact to light palpation, FROM, pulses +2. Vertebral spine tenderness: tenderness over the upper facets bilaterally at the C2,3,4 facets. Range of motion of neck: R OM moderately limited ROM particularly w/ bilateral rotation, moderate pain induced. Inspection: n o surgical scars. Assessment: * Assessment: 1. 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 S pondylosis without myelopathy or radiculopathy, cervical region - M47.812 3 . P ostlaminectomy syndrome, not elsewhere classified - M96.1 4 . S pondylosis without myelopathy or radiculopathy, lumbar region - M47.816 Mr. Yanez returns today for an office visit. He is continuing to have issues with the neuropathic pain in the left lower extremity. This is despite our efforts to reprogram the spinal cord stimulator. He is complaining of pain in the L5 nerve root distribution on the left. It may be that a transforaminal epidural at L4-5 on the left would be helpful here. It has primarily been the last 2 weeks that these radicular symptoms have increased to the point where they are interfering with most all of his activities of daily living. Should he not respond to the transforaminal epidural steroid injection I would obtain an MRI and see if he has new issues with nerve root compression in this distribution. 04/02/2024 Here today for follow up. Patient continues to have nerve pain that starts in the left hip that radiates down the left side of the leg and stops at the left knee. Patient reports that he has been experiencing nerve pain since October. He received no relief with TFESI LT in January. [employer] rep in the room changing SCS settings. Patient should notice a difference in pain within the next 2-3 days, if pain continues after the third day patient encourage to call the office. Patient also verbalized that he discontinue the Hydrocodone. Last time he has taken his Hydrocodone was over a month ago. Denies experiencing withdrawls with discontinuing medication. Patient reports that he never received no relief that he does better with two extra strength Tylenol. Will have him to follow up in one month with . 02/08/2024 - #1 TFESI LT L5/S1 no relief. Plan: * Treatment: * Procedures: Papito HELTON ENCOUNTER AND OVERSIGHT: Consult Performed By: Dania apodaca (SIMI-SHAMAR)Mack 04/02/2024 9:45:22 AM > . c ollaborated treatment plan with Reji Morrissey M.D., supervising physician who was present in office during consultation. * * Electronic signature of Raymon Morrissey II, M.D. on 07/13/2025 at 09:20 AM MANAGER OF ENGINEERING Sign off status: Pending * Provider: Reji Morrissey II, M.D. Date: 1 Generated for Irwin spears/Davon/Bentleyitting on: 1 09/13/2024 09:20 AM MANAGER OF ENGINEERING History and Physical Notes * HPI (History of Present Illness) Category Sub-Category Detail Notes Category Not es PAIN MANAGEMENT TREATMENT HISTORY SUMMARY OF INITIAL EVALUATION: 04/19/2019New patient consult referred by Michael COLEMAN for chronic back pain onset in 2018 without incident Stephane was referred here in consultation for evaluation and treatment of their chronic pain. Most severe pain is in his low back radiating into the side of the right leg. Patient has secondary pain in his neck radiating into the left arm. Pain began in July 2018. Former pt of Dr. Saunders. Denies bowel or bladder incontinence. Denies saddle anesthesia IMAGING HISTORY: 04/20/2022 MRI Lumbar: Interval postoperative changes at L4/5. Overall stable to slightly progressed degenerative changes of the lumbar spine with multilevel moderate to advanced foraminal encroachment PHYSICAL/AQUA THERAPY/DME/OTHER HISTORY: 2692-0509 Chiropractic therapy program complete 06/2023-Present: Patient continues a prescribed home exercise program 3-5 times per week which includes walking, lumbar stretches, and alternating leg lifts PERTINENT SURGICAL EVALUATIONS/SPECIALIST CONSULTS 04/2022 - Dr. Rodriguez - No surgery recommened, recommends SCS trial PREVIOUS INJECTION\PROCEDURE HISTORY: 08/21/2019 #1 SIJI RT 20% relief for 1 hour 08/09/2022 SCS Trial Gregory 80% relief for 1 week 02/13/2024 #1 TFESI LT L5/S1 0% relief PREVIOUS PAIN CLINIC CARE: Denies COMPLIANCE RISK ASSESSMENT AND STRATIFICATI ON: RISK GROUP: MODERATE RISK URINE DRUG TESTIN01/11/2024 Screen Expected Definitive Expected 02/08/2024 Screen Expected Definitive Expected 04/02/2024 Screen Expected MONITORING: Morphine Equivalent (MME): 0 HANY reviewed today and appropriate TESTING/RISK ASSESSMENTS ORT Score/Result: TODAYS PAIN EVALUATION MEDICATION FOLLOW UP: Micaela remynt does not wnat any more opioids CURRENT PAIN SYMPTOMS: Location of Worst Pain:: Low Back, Leg(s) Left Pain Frequency:: constant Pain Description:: sharp Average Pain Score VAS:: 10 Pain Exacerbation:: walking Pain Alleviation:: sitting ADL/Quality of Life Interference:: Every thing Examination Category Sub-Category Detail Notes Category Not es General Examination HEENT: unremarkable Neck, Thyroid : supple Heart: regular rate and rhy thm , no murmurs Lungs: clear to auscultatio n bilaterally, no wheezes/rhonchi/rales Extremities: no clubbing, no amber a General Appearance: well-nourished indiv idual in no acute distress. The patient is alert and oriented and cooperative for evaluation Skin normal, no rash Neurologic Exam: Patient ambulates wi th an antalgic gait, pitched forward Nurse/Inventory Transcriber: Mendez SHARMA-Shamar)Francisco J 04/02/2024 9:48:48 AM > Cervical Spine/Neck Vertebral spine tenderness: tenderness over the upper facets bilaterally at the C2,3,4 facets Paraspinal muscle spasm: Diffuse tendern ess with spasms noted Range of motion of neck: ROM moderately limited ROM particularly w/ bilateral rotation, moderate pain induced Sensations: sensation intact to light palpation, FROM, pulses +2 Motor strength: motor strength symme tric and 5/5, DTRs symmetric and 2+/4 Inspection: no surgical scars Lumbar Spine/Lower Back Straight leg raising test: neg ative bilaterally Motor system: motor strength 5/5 i n all muscle groups bilaterally Sensory exam: sensation intact to light touch throughout bilateral lower extremities, no edema or discoloration noted Range of motion: ROM moderately limit ed, moderate pain induced. Hyperextension - Pain with Facet loading Inspection: Spinal alignment no abnormal curvature noted, surgical scar appears well-healed Palpation: diffuse tenderness t hroughout lumbar region, most particularly over lower lumbar facet joints. Spasms absent
--- OUTSIDE RECORDS SUMMARY | 2024-05-28 10:30 | XMS_ITS ---
Author Organization [facility] Address [address] [place] [address] Care Team Providers Care Endorsement Clerk Name Role Phone Jerome Morrissey II Unavailable Michael COLEMAN -Pramod Velazquez MD, Issa Unavailable [phone] Allergies No Known Allergies REASON FOR VISIT [...] Diagnosis [facility] [address] [address] 05/28/2024 Jerome Morrissey Other long term care administrator (current) drug therapy Z79.899 ; Spondylosis without myelopathy or radiculopathy, cervical region M47.812 ; Postlaminectomy syndrome, not elsewhere classified M96.1 and Spondylosis without myelopathy or radiculopathy, lumbar region M47.816 Assessments Encounter Date Diagnosis (ICD Code) Assessment Notes Treatment Notes Treatment Clinical Notes Section Notes 05/28/2024 Other senior living (current) drug therapy (ICD-10 - Z79.899) 04/02/2024 1. Discontinue [place] 5/325mg QD PRN 2. FU 1 month with [facility] 3. [employer] rep to change SCS settings 4. S/P [...] no relief with TFESI LT in January. [employer] rep in the room changing SCS settings. [...] no relief with TFESI LT in January. [employer] rep in the room changing SCS settings. [...] no relief with TFESI LT in January. [employer] in the room changing SCS settings. Patient [...] no relief with TFESI LT in January. [employer] rep in the room changing SCS settings. [...] Of Treatment Treatment Notes Assessment Notes Other long term care administrator (current) drug therapy 04/02/2024 1. Discontinue [place] 5/325mg QD PRN 2. FU 1 month with [facility] 3. [employer] rep to change SCS settings 4. S/P [...] Stephane MENDIETA ADOB: 3 (74 yo M)Acc No.[id number]:05/28/2024 Progress NOte Patient: Stephane RODRIGUEZ Provider: Reji Morrissey II, M.D. :1950 A ge:73 Y S ex:Male Date:05/28/2024 Address:[address] [place] [phone] Subjective: * Chief Complaints: * 1 . [...] for 1 hour 0 08/09/2022 SCS Trial Rkathe58% relief for 1 week 0 02/08/2024- #1 [...] * Vitals: * Examination: G eneral Examination: Nurse/Arts Administrator Or Manager: Madeleine Gonzalez (MA-Lex) 04/02/2024 9:48:48 AM > [...] scars. Assessment: * Assessment: 1. O ther senior living (current) drug therapy - Z79.899 (Primary) 2 [...] no relief with TFESI LT in January. [employer] rep in the room changing SCS settings. [...] Raymon Morrissey II, M.D. on 07/13/2025 at 09:21 AM OPAL POLISHER Sign off status: Pending * Provider: Reji Morrissey II, M.D. Date: 07/28/2023 Generated for Irwin spears/Davon/Nicholasransmitting on: 09/13/2024 09:21 AM OPAL POLISHER History and Physical Notes * HPI (History [...] to advanced foraminal encroachment PHYSICAL/AQUA THERAPY/DME/OTHER HISTORY: 7551-6552 Chiropractic therapy program complete 06/2023-Present: Patient continues a prescribed home exercise program 3-5 times per week which includes walking, lumbar stretches, and alternating leg lifts PERTINENT SURGICAL EVALUATIONS/SPECIALIST CONSULTS 04/2022 - Dr. Rodriguez - No surgery recommened, recommends SCS trial PREVIOUS INJECTION\PROCEDURE HISTORY: 08/21/2019 #1 SIJAYLYN RT 20% relief for 1 hour 08/09/2022 SCS Trial [place] 80% relief for 1 week 02/08/2024 - [...] wi th an antalgic gait, pitched forward Nurse/Arts Administrator Or Manager: Mendez (ALEJANDRINA-Shamar)Francisco J 04/02/2024 9:48:48 AM > [...]
--- OUTSIDE RECORDS SUMMARY | 2025-07-13 10:19 | XMS_ITS | Encounter Summary ---
Author Organization [employer] ([place], [place], [place], [place], [place]) Address [address] [place] [address] Care Team Providers Care Hoister Name Role Phone Maya Torres Reji BELCHER Primary Care Provider +1- [phone] Encounter Details Date Type Department Care Team (Late st Contact Info) Description 10/27/2020 Transcribed Document [facility] [place] [address] [place] [address] ProviderJean MD [address] [place] [address] Social History Tobacco Use Types [...] 10/27/2020 12:55:00 EDT fentaNYL,50mcg IV Push,Left Antecubital [place] Pain Assessment Pain Scale Used : 0-10 [...] on filedocumented in this encounter Care Teams Hoister Relationship Specialty Start Date End Date Maya Torres, COAT TAILOR [address] [phone] PCP - General Family Medicine 08/27/22 documented as of this encounter
--- OUTSIDE RECORDS SUMMARY | 2025-07-13 10:19 | XMS_ITS | Encounter Summary ---
Author Organization [employer] ([place], [place], [place], [place], [place]) Address [address] [place] [address] Care Team Providers Care Front Office Medical Assistant Name Role Phone Maya Torres Reji BELCHER Primary Care Provider +1- [phone] Encounter Details Date Type Department Care Team (Late st Contact Info) Description 10/27/2020 Transcribed Document [facility] [place] Family Medicine [facility] [place] [address] ProvidereJan MD [address] [place] [address] Social History Tobacco Use Types [...] on filedocumented in this encounter Care Teams Front Office Medical Assistant Relationship Specialty Start Date End Date Maya Torres, DRUG ENFORCEMENT ADMINISTRATION AGENT [address] [phone] PCP - General Family Medicine 08/27/22 documented as of this encounter
--- OUTSIDE RECORDS SUMMARY | 2025-07-13 10:19 | XMS_ITS | Encounter Summary ---
Author Organization [employer] ([place], [place], [place], [place], [place]) Address [address] [place] [address] Care Team Providers Care Sushi Chef Name Role Phone Maya Torres Reji BELCHER Primary Care Provider +1- [phone] Encounter Details Date Type Department Care Team (Late st Contact Info) Description 10/27/2020 Transcribed Document [facility] [place] Family Medicine [address] [place] [address] ProviderJean MD [address] [place] [address] Social History Tobacco Use Types [...] Jasmin Thornton RN - 10/27/2020 12:36 EDT Electronically signed by Becky Tejeda Conversion Medical Staff Credentialing Coordinator Cerner at 11/04/2022 3:24 PM CDT documented in this encounter Plan of Treatment Not on file documented as of this encounter Visit Diagnoses Not on filedocumented in this encounter Care Teams Sushi Chef Relationship Specialty Start Date End Date Maya Torres, NEPHROLOGIST [address] [phone] PCP - General Family Medicine 08/27/22 documented as of this encounter
--- OUTSIDE RECORDS SUMMARY | 2025-07-13 10:19 | XMS_ITS | Encounter Summary ---
Author Organization [employer] ([place], [place], [place], [place], [place]) Address [address] [place] [address] Care Team Providers Care Gmat Tutor Name Role Phone Maya Torres Reji BELCHER Primary Care Provider +1- [phone] Encounter Details Date Type Department Care Team (Late st Contact Info) Description 10/27/2020 Transcribed Document [facility] [place] [facility] [place] [address] ProviderJean MD [address] [place], [place] [address] Social History Tobacco Use Types Packs/Day Years [...] on filedocumented in this encounter Care Teams Gmat Tutor Relationship Specialty Start Date End Date Maya Torres, TREE TRIMMING LINE TECHNICIAN [address] [phone] PCP - General Family Medicine 08/27/22 documented as of this encounter
--- OUTSIDE RECORDS SUMMARY | 2025-07-13 10:19 | XMS_ITS | Clinical Summary ---
Author Organization [facility] Address [address] [place] [address] Care Team Providers Care Air Bag Stripper Name Role Phone Unavailable Primary Care Provider [...]
--- OUTSIDE RECORDS SUMMARY | 2025-07-13 10:19 | XMS_ITS | Encounter Summary ---
Author Organization [employer] ([place], [place], [place], [place], [place]) Address [address] [place] [address] Care Team Providers Care Internet Project Manager Name Role Phone Maya Torres Reji BELCHER Primary Care Provider +1- [phone] Encounter Details Date Type Department Care Team (Late st Contact Info) Description 10/27/2020 Transcribed Document [facility] [place] Family Medicine [address] [place] [address] ProviderJean MD [address] [place], [place] [id number] Social History Tobacco Use Types Packs/Day Years Used Date Smoking Tobacco: Never Assessed Sex and Gender Information Value Date Recorded Sex Assigned at Not on file Legal Sex Male 5:19 PM CDT Gender Identity Not on file Sexual Orientation Not on file documented as of this encounter Miscellaneous Notes * Cerner Conversion Note - Jean ProviderMD - 10/27/2020 11:59 AM CDT [place] Suicide Severity Rating Scale (C-SSRS) Entered On: 10/27/2020 12:32 EDT Performed On: 10/27/2020 12:21 EDT by Jasmin Thornton RN [place] Suicide Severity Rating Scale (C-SSRS) CSSRS Past [...] on filedocumented in this encounter Care Teams Internet Project Manager Relationship Specialty Start Date End Date Maya Torres, HEREDITARY CANCER PROGRAM COORDINATOR [address] [phone] PCP - General Family Medicine 08/27/22 documented as of this encounter
--- OUTSIDE RECORDS SUMMARY | 2025-07-13 10:19 | XMS_ITS | Encounter Summary ---
Author Organization [employer] ([place], [place], [place], [place], [place]) Address [address] [place] [address] Care Team Providers Care Black Puller Name Role Phone Maya Torres Reji BELCHER Primary Care Provider +1- [phone] Encounter Details Date Type Department Care Team (Late st Contact Info) Description 10/27/2020 Transcribed Document [facility] [place] Family [place] [facility] [place] [address] ProviderJean MD [address] [place] [address] Social History Tobacco Use Types [...] 12:04 EDT by Alina Easley Flex Team sports cartoonist Triage Across the Room Chief Complaint : pt here for abn bruising to lower abd ,states tore a muscle last week, had FU but not any better, states no blood thinners, pt c/o fullnes to abd, Triage Date/Time : 10/27/2020 12:04 EDT Alina Easley Flex Team Rn - 10/27/2020 12:04 EDT DCP GENERIC CODE Tracking Acuity : 2 - Emergent Tracking Group : [facility] ED Alina Easley Flex Team Rn - 10/27/2020 12:04 EDT Mode of Arrival : Ambulatory Transported to ED by : Private vehicle To Room Via : Wheelchair Accompanied By : Spouse ED Vital Signs : Document Height & Weight : Document ED Allergies : Document ED Reason for Visit : Document Tetanus Immunization : Less than 5 years Emergency Registrar Needed : No Alina Easley Flex Team [...] Problems(Active) At risk for sleep apnea (IMO :17610441 ) Name of Problem: At risk for sleep apnea ; Recorder: SYSTEM, SYSTEM; Confirmation: Confirmed ; Classification: Medical ; Code: 77535217 ; Last Updated: 06/16/2018 8:18 EST ; Life Cycle Date: 06/16/2018 ; Life Cycle Status: Active ; Vocabulary: IMO Enlarged prostate (SNOMED CT :650934540 ) Name of Problem: Enlarged prostate ; Recorder: Shavonne Jimenez RN; Confirmation: Confirmed ; Classification: Medical ; Code: 453101837 ; Contributor System: PowerChart ; Last Updated: 06/16/2018 8:22 EST ; Life Cycle Date: 06/16/2018 ; Life Cycle Status: Active ; Vocabulary: SNOMED CT Hypertension (SNOMED CT :2760221468 ) Name of Problem: Hypertension ; Recorder: Shavonne Jimenez RN; Confirmation: Confirmed ; Classification: Medical ; Code: 9309569546 ; Contributor System: PowerChart ; Last Updated: 06/16/2018 8:21 EST ; Life Cycle Date: 06/16/2018 ; Life Cycle Status: Active ; Vocabulary: SNOMED CT Seasonal allergies (SNOMED CT :4509571839 ) Name of Problem: Seasonal allergies ; Recorder: Shavonne Jimenez RN; Confirmation: Confirmed ; Classification: Medical ; Code: 3089652115 ; Contributor System: Best BidChart ; Last Updated: 06/16/2018 8:22 EST ; Life Cycle Date: 06/16/2018 ; Life Cycle Status: Active ; Vocabulary: SNOMED CT Diagnoses(Active) Medical screening exam Date: 10/27/2020 ; Diagnosis Type: Reason For Visit ; Confirmation: Complaint of ; Clinical Dx: Medical screening exam ; Classification: Medical ; Clinical Service: Non-Specified ; Code: PNED ; Probability: 0 ; Diagnosis Code: [id number] ED Height and Weight Height Source : Stated Height Entry Format : [place] Height, Feet : 5 ft(Converted to: 152 cm, 60 Inch) Height, Inches : 8 Inch(Converted to: 0 ft 8 Inch, 20.32 cm) Clinical Height : 172.72 cm Weight Source, ED : Critical estimated dosing weight Weight Entry Format : [place] Weight, Pounds : 250 lb Clinical Dosing Weight : 113.64 kg Body Surface Area (BSA) : 2.25 m2 Body Mass Index : 38.1 kg/m2 (HI) [place] Body Weight (IBW) : 67.45 kg Alina [...] form. Electronically signed by Becky Tejeda Conversion Journeyman Level Acoustic Analyst Cerner at 11/04/2022 3:20 PM CDT documented in this encounter Plan of Treatment Not on file documented as of this encounter Visit Diagnoses Not on filedocumented in this encounter Care Teams Black Puller Relationship Specialty Start Date End Date Maya Torres, CYBER THREAT ANALYST [address] [phone] PCP - General Family Medicine 08/27/22 documented as of this encounter
--- OUTSIDE RECORDS SUMMARY | 2025-07-13 10:20 | XMS_ITS | Clinical Summary ---
Author Organization [facility] , [facility] Address [address] [place] [address] Phone Care Team Providers Care Behavioral Health Consultant Name Role Phone Jose Cruz COLEMAN, Domingo Jett Unavailable [phone] Olga Licea APRN Unavailable [phone] Reason for Visit and Chief Complaint [Patient Encounter] Problems Includes: Problems addressed during this encounter and other active Problems All Visits Onset Date Date of Diagnosis Resolved Date Provider Condition Status Soft Tissue Pain Hand 12/05/2024 12/05/2024 Flako Pulido PA-C Active Last Documented On 5 1:43AM ; [facility], [facility] History of Lower Back Pain M idline Right Side 04/12/2022 04/12/2022 Holden Modi PA-C Active Last Documented On 5 1:41AM ; [facility], [facility] Joint Pain Left Thumb 03/12/2021 03/12/2021 Charles Hernandez MD Active Last Documented On 5 1:40AM ; [facility], [facility] Joint Pain in Both Knees 04/05/2019 04/05/2019 Arlet Billingsley MD Active Last Documented On 5 1:39AM ; [facility], [facility] Plan of Treatment Future Appointments Date Time Location Provi tahira Post Op 07/19/2025 11:00AM [facility] [place] Holden Modi PA-C Last Documented On 5 10:29AM ; [facility], [facility] Assessments Includes: Assessments from this encounter No Assessments Recorded Medical Equipment - Implanted Devices Includes: Current Devices No Medical Equipment Recorded Medications Includes: Medications discussed during this encounter and other current Medications Current Medications (continue as prescribed) Percocet 5-325 MG Oral Tablet 07/03/2025 - 07/18/2025 Provider: Issa Rodriguez MD Diagnosis: 1 po q 4h prn pain Last Documented On 8:39AM By Issa Rodriguez ; [facility] Clindamycin HCl 300 MG Oral Capsule 01/07/2025 Provi tahira: Holden Modi PA-C Diagnosis: Last Documented On 5 10:36AM By [facility] ; [facility] oxyCODONE-Acetaminophen 5-325 MG Oral Tablet Provider: Issa Rodriguez MD Diagnosis: Last Documented On 5 9:50AM By Quentin Gardunoillin ; [facility] Pantoprazole Sodium 40 MG Or al Tablet Delayed Release 12/09/2024 Provider: Maya Torres ELECTRICIAN SUBSTATION Diagnosis: Last Documented On 5 9:50AM By Quentin Burk ; [facility] LORazepam 1 MG Oral Tablet 12/04/2024 Provider: Nancy Torres ELECTRICIAN SUBSTATION Diagnosis: Last Documented On 5 9:50AM By Quentin Burk ; [facility] Doxycycline Hyclate 100 MG Oral Capsule 12/04/2024 P rovider: Diagnosis: Last Documented On 9:50AM By Quentin Burk ; [facility] sulfaSALAzine 500 MG Oral Tablet 11/27/2024 Provider : Maya Torres ELECTRICIAN SUBSTATION Diagnosis: Last Documented On 5 9:50AM By Quentin Burk ; [facility], [facility] Albuterol Sulfate HFA 108 (9 0 Base) MCG/ACT Inhalation Aerosol Solution 11/07/2024 Provider: Maya anderson ELECTRICIAN SUBSTATION Diagnosis: Last Documented On 5 9:50AM By Quentin Burk ; [facility] Finasteride 5 MG Oral Tablet 11/03/2024 Provider: Maya Torres ELECTRICIAN SUBSTATION Diagnosis: Last Documented On 5 9:50AM By Quentin Burk ; [facility], [facility] Tamsulosin HCl 0.4 MG Oral Capsule 11/03/2024 Provid er: Maya Torres APRN Diagnosis: Last Documented On 5 3:49PM By Marifer Nueñz ; [facility], [facility] Amoxicillin 875 MG Oral Tablet 09/11/2024 Provider: Diagnosis: Last Documented On 5 9:50AM By Quentin Burk ; [facility], [facility] predniSONE 10 MG Oral Tablet 03/11/2021 Provider: Jarek Muñiz DO Diagnosis: Last Documented On 8:34AM By Deborah Lowery ; [facility], [facility] Amoxicillin 500 MG Oral Capsule 03/11/2021 Provider: Jarek Muñiz DO Diagnosis: Last Documented On 8:34AM By Deborah Lowery ; [facility], [facility] Cephalexin 500 MG Oral Capsule 03/10/2021 Provider: Diagnosis: Last Documented On 8:34AM By Deborah Lowery ; [facility], [facility] HYDROcodone-Acetaminophen 5-325 MG Oral Tablet 021 Provider: Diagnosis: Last Documented On 8:34AM By Deborah Lowery ; [facility], [facility] Gabapentin 300 MG Oral Capsule 03/06/2021 Provider: Diagnosis: Last Documented On 8:34AM By Deborah Lowery ; [facility], [facility] LORazepam 1 MG Oral Tablet 03/06/2021 Provider: Diagnosis: Last Documented On 8:34AM By Deborah Lowery ; [facility], [facility] Esomeprazole Magnesium 40 MG Oral Capsule Delayed Rele ase 03/04/2021 Provider: Diagnosis: Last Documented On 8:34AM By Deborah Lowery ; [facility], [facility] Esomeprazole Magnesium 40 MG Oral Capsule Delayed Rele ase 03/04/2021 Provider: Diagnosis: Last Documented On 8:34AM By Deborah Lowery ; [facility], [facility] Fluticasone Propionate 50 MCG/ACT Nasal Suspension Provider: Diagnosis: Last Documented On 8:35AM By Deborah Lowery ; [facility], [facility] Medications Administered Includes: Administered Medications from this encounter No Administered Medications Recorded Results Includes: Results discussed during this encounter No Results Recorded For Specified Dates History of Present Illness Includes: History of Present Illness from this encounter No History of Present Illness Recorded Social History Description Last Updated Sex - Male 07/05/2025 Last Documented On 2:08PM ; [facility], [facility] Smoking Status Unknown Procedures and Surgical History Includes: Procedures from this encounter Procedures Code Diagnosis Performing Provider Service Location Service Date Revision or [place] [address] I/I react d/t implnt elec nstim, generator, init Issa Rodriguez MD [facility] 07/03/2025 Last Documented On 1:56PM ; [facility], [facility] Revision or removal of implanted spinal neurostimulator puls (Public Interviewer surgeon) 51382 I/I react d/t implnt elec nstim, generator, init Bekah Cagle PA-C [facility] 07/03/2025 Last Documented On 1:56PM ; [facility], [facility] Medical History Includes: Medical History addressed during this encounter No Medical History Recorded Family History Includes: Family History addressed during this encounter No Family History Recorded Review of Systems Includes: Review of Systems from this encounter No Review of Systems Recorded Physical Exam Includes: Physical Exam from this encounter No Physical Exam Recorded Allergies Includes: Active Allergies No Known Allergies Care Behavioral Health Consultant Name (Identifier) Role/Relation Location/Telecom Last Documented By Domingo Billingsley MD ([id number]) Assigned practitioner (occupation) tel:[phone] Last Documented On 07/05/2025 2:08PM ; [facility], [facility] Olga Licea APRN ([id number]) [address] [place] [address], [facility], [address] tel:[phone] Last Documented On 04/05/2019 9:06AM ; [facility], [facility] Encounters Encounter Provider Location (Healthcare Service Location) Date Check-In Time Check-Out Time Diagnosis Encounter Disposition [Patient Encounter] Issa Rodriugez MD [facility] 2024 1:55PM 11:59PM Payer Includes: Active Insurance Policies Plan Name (Payer ID) Coverage Type Member ID Group # Subscriber (ID) Relationship Effective Dates 1 - Medicare Part B [facility] ([id number]) [id number] Stephane Stover (Checked on 06/03/2025) Last Documented On 9 7:57AM ; [facility], [facility] 2 - C[employer] Medicare Supplemen t Insurance [id number] Stephane Stover 09/15/2017 - Unknown Last Documented On 9 8:40AM ; [facility]
--- OUTSIDE RECORDS SUMMARY | 2025-07-13 10:20 | XMS_ITS | Encounter Summary ---
Author Organization [facility] ([place], [place], [place], [place], [place]) Address [address] [place] [address] Care Team Providers Care Incident Response Coordinator Name Role Phone Maya Torres Reji BELCHER Primary Care Provider [phone] Encounter Details Date Type Department Care Team (Late st Contact Info) Description 10/27/2020 Transcribed Document [facility] [address] [place] [address] ProviderJean MD [address] [place] [address] Social History Tobacco Use Types [...] Sawant MD - 10/27/2020 6:36 PM CDT [facility] [place], [place] [id number] ISATU MENDIETA :1950 Visit Time:10/27/2020 Your Visit [...] to 3 days Where: [place] [place] [address] [facility] (1) Allergies No Known Medication Allergies [...] 24HR 55 mcg/ inh nasal spray) 1 [place](s) Nasal Two Times A Day The home [...] and 14.9 ) ANC #: 12 K/uL [place] Percent Man: 2 % -- Normal range [...] ) Urine Bilirubin Dipstick: Negative Urine Specific [place]: 1.006 -- Normal range between ( 1.005 [...] or lying down. General instructions ??? Take eleg-cbu-qdmzmly and prescription medicines only as told by [...] compression, and elevation. You may be given bfxv-gai-ywxlsnr medicines for pain. ??? Contact a health [...] provider. Document Revised: 02/22/2019 Document Reviewed: 02/22/2019 [employer] Patient Education ?? 2020 [employer]. Emergency Awareness and Preventative Care STROKE is [...] Assistance with quitting is available by contacting 2-192-FJIJ-NOW. This is a free resource providing counseling, [...] was given the opportunity to ask questions. Patient/Parlor Chaperone Name: Patient/Parlor Chaperone Signature: Relationship to Patient: Clinician/Hospital Parlor Chaperone Signature: Please Provide a Telephone Number Where You Can Be Reached: Is it Permissible To Leave a Message? Date: documented in this encounter Plan of Treatment Not on file documented as of this encounter Visit Diagnoses Not on filedocumented in this encounter Care Teams Incident Response Coordinator Relationship Specialty Start Date End Date Maya Torres, SIMI [address] [phone] PCP - General Family Medicine 08/27/22 documented as of this encounter
--- OUTSIDE RECORDS SUMMARY | 2025-07-13 10:20 | XMS_ITS | Clinical Summary ---
Author Organization [facility] , [facility] Address [address] [place] [address] Phone Care Team Providers Care Home Care Scheduler Name Role Phone Jose Cruz COLEMAN, Domingo Jett Unavailable [phone] Olga Licea APRN Unavailable [phone] Reason for Visit and Chief Complaint The Chief Complaint is: back pain Problems Includes: Problems addressed during this encounter and other active Problems All Visits Onset Date Date of Diagnosis Resolved Date Provider Condition Status Soft Tissue Pain Hand 12/05/2024 12/05/2024 Flako Pulido PA-C Active Last Documented On 5 1:43AM ; [facility], [facility] History of Lower Back Pain M idline Right Side 04/12/2022 04/12/2022 Holden Modi PA-C Active Last Documented On 5 1:41AM ; [facility], [facility] Joint Pain Left Thumb 03/12/2021 03/12/2021 Charles Hernandez MD Active Last Documented On 5 1:40AM ; [facility], [facility] Joint Pain in Both Knees 04/05/2019 04/05/2019 Arlet Billingsley MD Active Last Documented On 5 1:39AM ; [facility], [facility] Plan of Treatment - Patient screened for future fall risk: documentation of any fall with injury in past year - Last Documented On 06/11/2025 1:20PM ; [facility], [facility] Fall Risk Assessment: This patient has [...] - Last Documented On 06/11/2025 1:20PM ; [facility], [facility] Future Appointments Date Time Location Provi tahira Post Op 07/19/2025 11:00AM [facility] MIAH Modi PA-C Last Documented On 5 10:29AM ; [facility], [facility] Instructions to patient Lose weight Last Documented On 8:58AM ; [facility], [facility] Assessments Includes: Assessments from this encounter Findings - Overweight - Last Documented On 06/11/2025 1:20PM ; [facility], [facility] Instructions Includes: Instructions from this encounter Instructions to patient Lose weight Last Documented On 8:58AM ; [facility], [facility] Medical Equipment - Implanted Devices Includes: Current Devices No Medical Equipment Recorded Medications Includes: Medications discussed during this encounter and other current Medications Current Medications (continue as prescribed) Percocet 5-325 MG Oral Tablet 07/03/2025 - 07/18/2025 Provider: Issa Rodriguez MD Diagnosis: 1 po q 4h prn pain Last Documented On 5 8:39AM By Issa Rodriguez ; [facility], [facility] Clindamycin HCl 300 MG Oral Capsule 01/07/2025 Provi tahira: Holden Modi PA-C Diagnosis: Last Documented On 5 10:36AM By Quentin Burk ; [facility], [facility] oxyCODONE-Acetaminophen 5-325 MG Oral Tablet Provider: Issa Rodriguez MD Diagnosis: Last Documented On 5 9:50AM By Quentin Burk ; [facility], [facility] Pantoprazole Sodium 40 MG Or al Tablet Delayed Release 12/09/2024 Provider: Maya Torres APRN Diagnosis: Last Documented On 5 9:50AM By Quentin Burk ; [facility], [facility] LORazepam 1 MG Oral Tablet 12/04/2024 Provider: M ichelle Stone MARINE DIESEL MECHANIC Diagnosis: Last Documented On 5 9:50AM By Quentin Burk ; [facility], [facility] Doxycycline Hyclate 100 MG Oral Capsule 12/04/2024 Papito washingtonder: Diagnosis: Last Documented On 5 9:50AM By Quentin Burk ; [facility], [facility] sulfaSALAzine 500 MG Oral Tablet 11/27/2024 Provider : Maya Torres MARINE DIESEL MECHANIC Diagnosis: Last Documented On 5 9:50AM By Quentin Burk ; [facility], [facility] Albuterol Sulfate HFA 108 (9 0 Base) MCG/ACT Inhalation Aerosol Solution 11/07/2024 Provider: Maya anderson MARINE DIESEL MECHANIC Diagnosis: Last Documented On 5 9:50AM By Quentin Burk ; [facility], [facility] Finasteride 5 MG Oral Tablet 11/03/2024 Provider: Maya Torres MARINE DIESEL MECHANIC Diagnosis: Last Documented On 5 9:50AM By Quentin Burk ; [facility], [facility] Tamsulosin HCl 0.4 MG Oral Capsule 11/03/2024 Provid er: Maya Torres MARINE DIESEL MECHANIC Diagnosis: Last Documented On 5 3:49PM By Marifer Nuñez ; [facility], [facility] Amoxicillin 875 MG Oral Tablet 09/11/2024 Provider: Diagnosis: Last Documented On 5 9:50AM By Quentin Burk ; [facility], [facility] predniSONE 10 MG Oral Tablet 03/11/2021 Provider: Jarek Muñiz DO Diagnosis: Last Documented On 8:34AM By Deborah Lowery ; [facility], [facility] Amoxicillin 500 MG Oral Capsule 03/11/2021 Provider: Jarek Muñiz DO Diagnosis: Last Documented On 8:34AM By Deborah Lowery ; [facility], [facility] Cephalexin 500 MG Oral Capsule 03/10/2021 Provider: Diagnosis: Last Documented On 8:34AM By Deborah Lowery ; [facility], [facility] HYDROcodone-Acetaminophen 5-325 MG Oral Tablet Provider: Diagnosis: Last Documented On 8:34AM By Deborah Lowery ; [facility] Gabapentin 300 MG Oral Capsule 03/06/2021 Provider: Diagnosis: Last Documented On 8:34AM By Deborah Lowery ; [facility], [facility] LORazepam 1 MG Oral Tablet 03/06/2021 Provider: Diagnosis: Last Documented On 8:34AM By Deborah Lowery ; [facility], [facility] Esomeprazole Magnesium 40 MG Oral Capsule Delayed Rele ase 03/04/2021 Provider: Diagnosis: Last Documented On 8:34AM By Deborah Lowery ; [facility], [facility] Esomeprazole Magnesium 40 MG Oral Capsule Delayed Rele ase 03/04/2021 Provider: Diagnosis: Last Documented On 8:34AM By Deborah Lowery ; [facility], [facility] Fluticasone Propionate 50 MCG/ACT Nasal Suspension Provider: Diagnosis: Last Documented On 8:35AM By Deborah Lowery ; [facility], [facility] Past Medications on file Clindamycin HCl 300 MG Oral Capsule 01/07/2025 - 01/09/2025 Provider: Holden Steiner Diagnosis: take 2 pills, 3 three times a day Last Documented On 5 11:06AM By Quentin Burk ; [facility], [facility] Clindamycin HCl 300 MG Oral Capsule 12/28/2024 - 01/08/2025 Provider: Holden Steiner Diagnosis: three times a day Last Documented On 5 10:10AM By Quentin Burk ; [facility], [facility] Percocet 5-325 MG Oral Tablet 12/19/2024 - 01/03/2025 Provider: Issa Rodriguez MD Diagnosis: 1 po q 4h prn pain Last Documented On 5 8:40AM By Issa Rodriguez ; [facility], [facility] Losartan Potassium 100 MG Oral Tablet 12/05/2024 - Provider: Diagnosis: Last Documented On 5 3:50PM By Marifer Nuñez ; [facility], [facility] DULoxetine HCl 60 MG Oral Ca psule Delayed Release Particles 12/05/2024 - 03/05/2025 Provider: Diagnosis: Last Documented On 5 3:49PM By Marifer Nuñez ; [facility], [facility] Montelukast Sodium 10 MG Oral Tablet 12/05/2024 - 02/15 Provider: Diagnosis: Last Documented On 5 3:49PM By Marifer Nuñez ; [facility] Medications Administered Includes: Administered Medications from this encounter No Administered Medications Recorded Vital Signs Includes: Vital Signs from this encounter Vital Name 06/06/2025 09:02A Height (in) 69 Weight (lb) 252 Body Mass Index 37.2 Body Surface Area 2.3 Pain Level 5 Last Documented: On 06/06/2025 9:02AM ; [facility], [facility] Results Includes: Results discussed during this [...] Documented On 5 8:58AM ; [facility], [facility] No recent change in diet 04/22/2022 Last Documented On 5 8:58AM ; [facility], [facility] Not a current smoker. 04/22/2022 Last Documented On 5 8:58AM ; [facility] Non-smoker 03/12/2021 Last Documented On 5 8:58AM ; [facility], [facility] No tobacco use 04/05/2019 Last Documented On 5 8:58AM ; [facility], [facility] Smoking status : Never smoker 04/05/2019 Last Documented On 5 8:58AM ; [facility], [facility] Caffeine use 04/05/2019 Last Documented On 5 8:58AM ; [facility], [facility] No recent change in diet 04/05/2019 Last Documented On 5 8:58AM ; [facility], [facility] Not a current smoker 04/05/2019 Last Documented On 5 8:58AM ; [facility], [facility] Not exercising regularly 04/05/2019 Last Documented On 5 8:58AM ; [facility], [facility] Not using alcohol 04/05/2019 Last Documented On 5 8:58AM ; [facility] Not using drugs 04/05/2019 Last Documented On 5 8:58AM ; [facility] Sex - Male 07/05/2025 Last Documented On 5 2:08PM ; [facility] Procedures and Surgical History Includes: Procedures from this encounter Procedures Code Diagnosis Performing Provider Service Location Service Date X-RAY EXAM OF TRUNK SPINE [address] Encntr for adjust and mgmt of implanted nervous sys device, Presence of neurostimulator Issa Rodriguez MD [facility] 06/06/2025 Last Documented On 5 2:21PM ; [facility] Surgical History Last Updated History of hernia repair 04/05/2019 Last Documented On 5 8:58AM ; [facility] Medical History Includes: Medical History addressed during this encounter Description Last Updated No recent immunization for flu Last Documented On 5 8:58AM ; [facility] No recent immunization for pneumococcal pneumonia 03/12/2021 Last Documented On 5 8:58AM ; [facility] cataracs 04/05/2019 Last Documented On 5 8:58AM ; [facility] Arthritic joint problems 04/05/2019 Last Documented On 5 8:58AM ; [facility] Intermittent hypertension 04/05/2019 Last Documented On 5 8:58AM ; [facility] Family History Includes: Family History addressed during this encounter Description Last Updated Family history of cancer 04/05/2019 Last Documented On 5 8:58AM ; [facility] Family history of hypertension 9 Last Documented On 5 8:58AM ; [facility] Review of Systems Includes: [...] Anxiety Last Documented On 5 8:58AM ; [facility] Physical Exam Includes: Physical Exam from this encounter Allergies Includes: Active Allergies No Known Allergies Care Home Care Scheduler Name (Identifier) Role/Relation Location/Telecom Last Documented By Domingo Billingsley MD ([id number]) Assigned practitioner (occupation) tel:[phone] Last Documented On 07/05/2025 2:08PM ; [facility] Olga Cohen Vinayak BELCHER ([id number]) [address] [place] [address], [address] tel:[phone] Last Documented On 04/05/2019 9:06AM ; [facility] Encounters Encounter Provider Location (Healthcare Service Location) Date Check-In Time Check-Out Time Diagnosis Encounter Disposition Follow Up Issa Rodriguez MD [facility] 2024 8:53AM 10:11AM Overweight Payer Includes: Active Insurance Policies Plan Name (Payer ID) Coverage Type Member ID Group # Subscriber (ID) Relationship Effective Dates 1 - Medicare Part B [facility] ([id number]) [id number] Stephane Lozano Anam Self (Checked on 06/03/2025) Last Documented On 9 7:57AM ; [facility] 2 - [employer] Medicare Supplemen t Insurance [id number] Stephane Mendieta Self 09/15/2017 - Unknown Last Documented On 9 8:40AM ; [facility], [facility] Clinical Notes Includes: Clinical Notes from this encounter * Progress note Date Encounter Last Documented by 06/06/2025 Follow Up Last documented on 06/11/2025; 1:20 PM, Issa Rodriguez MD; [facility], [facility] Active Problems & Conditions - History [...] Care Team - Olga Licea APRN - DIATHERMY EQUIPMENT REPAIRER Health Reminders - Assess BMI satisfied 06/06/2025. - Assess Tobacco Use satisfied 04/05/2019. - Follow Up Plan BMI Management satisfied 06/06/2025.
--- OUTSIDE RECORDS SUMMARY | 2025-07-13 10:20 | XMS_ITS | Referral Summary ---
Author Organization [facility] ([place], [place], [place], [place], [place]) Address [address] [place] [address] Care Team Providers Care Dope Firer Name Role Phone Maya Torres APRN Primary Care Provider [phone] Allergies No known active allergies Medications traZODone [...] on file Insurance MEDICARE PART A B [facility] Care Teams Dope Firer Relationship Specialty Start Date End Date Maya Torres, FURNACE UTILITY OPERATOR [address] [phone] PCP - General Family Medicine 08/27/22
--- OUTSIDE RECORDS SUMMARY | 2025-07-13 10:20 | XMS_ITS ---
Care Plan - [facility] Created on: July 13, 2025 Stephane Mendieta : 1950 Sex: Male Author Organization [facility] Address [address] [place] [address] Phone Care Team Providers Care Visual Effects Editor Name Role Phone Jose Cruz COLEMAN, Domingo Jett Unavailable + [phone] Olga Licea APRN Unavailable [phone]
--- OUTSIDE RECORDS SUMMARY | 2025-07-13 10:20 | XMS_ITS | Encounter Summary ---
Author Organization [email or web address] ([place], [place], [place], [place], [place]) Address [address] [place] [address] Care Team Providers Care Tinware Lithograph Press Operator Name Role Phone Maya Torres Reji BELCHER Primary Care Provider [phone] Encounter Details Date Type Department Care Team (Late st Contact Info) Description 10/27/2020 Transcribed Document [facility] Family Medicine [address] [place] [address] ProviderJean MD [address] [place] [address] Social History Tobacco Use Types [...] on filedocumented in this encounter Care Teams Tinware Lithograph Press Operator Relationship Specialty Start Date End Date Maya Torres, WHEEL ADJUSTER [address] [phone] PCP - General Family Medicine 08/27/22 documented as of this encounter
--- OUTSIDE RECORDS SUMMARY | 2025-07-13 10:20 | XMS_ITS | Continuity of Care Document ---
Author Organization [employer] [facility] Address [address] [place] [address] Assessment No assessment recorded. Plan of Treatment [...] Orders lorazepam 1 mg tablet 2024 025 [facility] (Now [facility]), [address] [facility], [place], [address], 05/09/2025 18:00:59 Patient TargetsNo targets recorded. Patient InstructionsNo instructions recorded. Reason for Referral None Reported. Problems Name Problem SNOMED Code Status Onset Date Resolution Date Notes Provider Name and Address Organization Details Recorded Time Generali zed anxiety disorder 22683267 Completed 201609/21/2016 Problem Code: F41.1; Problem Code Type: ICD-10; Maya Torres APRN [address] [place], [address] , [employer] 3 11:40:35 Allergic rhinitis caused by pollen 16489645 Completed 201610/08/2016 Problem Code: J30.1; Problem Code Type: ICD-10; Not Available [facility] 2 21:50:51 Pain in right knee Completed 201608/23/2016 Problem Code: M25.561; Problem Code Type: ICD-10; Not Available [facility] 21:50:53 Pain in left knee Completed 201608/23/2016 Problem Code: M25.562; Problem Code Type: ICD-10; Not Available [facility] 21:51:03 Knee pain Completed 201608/23/2016 Problem Code: 719.46; Problem Code Type: ICD-9; JUAN ANTONIO [employer]. 11:16:05 Acute sinusiti s 60734936 Completed 201610/05/2016 Problem Code: J01.90; Problem Code Type: ICD-10; JUAN ANTONIO mortensen, [employer]. 11:16:05 Pain in right knee Completed 201611/04/2016 Problem Code: M25.561; Problem Code Type: ICD-10; Not Available [facility] 21:50:53 Prepatel lar bursitis of right knee 26708844242 9100 Completed 201612/20/2016 Not Available [facility] 21:50:54 Knee pain Completed 201611/04/2016 Problem Code: 719.46; Problem Code Type: ICD-9; JUAN ANTONIO mortensen [employer]. 11:16:05 Prepatel lar bursitis 73291992 Completed 201612/20/2016 Problem Code: 726.65; Problem Code Type: ICD-9; Not Available [facility] 21:51:17 Pain in right knee Completed 201612/13/2016 Problem Code: M25.561; Problem Code Type: ICD-10; Not Available [facility] 21:51:02 Knee pain Completed 201612/13/2016 Problem Code: 719.46; Problem Code Type: ICD-9; JUAN ANTONIO mortensen [employer]. 10/18/202 2 11:16:05 Allergic rhinitis 04202533 Completed 201603/11/2017 Problem Code: J30.9; Problem Code Type: ICD-10; Not Available [facility] 2 21:50:51 Allergic rhinitis 09766245 Completed 201605/06/2017 Problem Code: J30.9; Problem Code Type: ICD-10; Not Available [facility] 2 21:50:51 Allergic rhinitis caused by pollen 97640131 Completed 201608/02/2017 Problem Code: J30.1; Problem Code Type: ICD-10; Not Available [facility] 2 21:50:51 Hyperten sive disorder 62097275 Completed 201708/30/2017 Problem Code: I10; Problem Code Type: ICD-10; Not Available [facility] 2 21:50:50 Acute sinusiti s 42777376 Completed 201708/12/2017 Problem Code: J01.90; Problem Code Type: ICD-10; JUAN ANTONIO mortensen [employer]. 11:16:05 Benign essentia l hyperten marquis 6534406 Completed 201701/17/2018 Problem Code: 401.1; Problem Code Type: ICD-9; Not Available [facility] 2 21:51:06 Tinea pedis 8359256 Completed 201711/25/2017 Problem Code: B35.3; Problem Code Type: ICD-10; Not Available [facility] 2 21:50:48 Neck pain 44566347 Completed 201711/25/2017 Not Available [facility] 2 21:50:53 Hyperest hesia 74812154 Completed 201711/25/2017 Problem Code: R20.3; Problem Code Type: ICD-10; Not Available [facility] 2 21:50:55 Skin sensatio n disturba nce 11757680 Completed 201711/25/2017 Problem Code: 782.0; Problem Code Type: ICD-9; Not Available [facility] 2 21:51:11 Acquired deformit y of toe 64008031 Completed 201701/09/2021 Problem Code: 735.8; Problem Code Type: ICD-9; Not Available [facility] 2 21:51:11 Onychomy cosis due to dermatop hyte 062371761 Completed 201711/25/2017 Problem Code: 110.1; Problem Code Type: ICD-9; Not Available [facility] 2 21:51:15 Acute sinusiti s 80235997 Completed 201701/31/2018 Problem Code: J01.90; Problem Code Type: ICD-10; JUAN ANTONIO mortensen, [employer]. 11:16:05 Non-neop lastic nevus 786622063 Completed 201706/28/2019 Not Available [facility] 2 21:50:58 Large prostate 299342656 Completed 201703/10/2018 Problem Code: N40.0; Problem Code Type: ICD-10; Not Available [facility] 2 21:51:05 Generali zed atherosc lerosis 37913250 Completed 201701/09/2021 Problem Code: 440.9; Problem Code Type: ICD-9; Not Available [facility] 2 21:51:08 Benign prostati c hyperpla mel 964827448 Completed 201701/09/2021 Problem Code: 600.00; Problem Code Type: ICD-9; Not Available [facility] 2 21:51:09 Lacerati on of finger with foreign body 118940429 Completed 201704/25/2018 Problem Code: S61.222A ; Problem Code Type: ICD-10; Not Available [facility] 2 21:50:56 Pre-surg marjorie evaluati on Completed 201704/25/2018 Not Available [facility] 2 21:50:58 Open wound of finger with complica tion 16268426 Completed 201704/25/2018 Problem Code: 883.1; Problem Code Type: ICD-9; [facility] 21:51:10 Abnormal weight gain 090677490 Completed 201705/09/2018 Problem Code: R63.5; Problem Code Type: ICD-10; Not Available [facility] 21:50:55 Mixed hyperlip idemia 226718933 Completed 201701/09/2021 Problem Code: 272.2; Problem Code Type: ICD-9; Tamar mortensen [facility] [email or web address] [facility]. 09:56:03 Anemia of chronic disease 328180506 Completed 201706/28/2019 Problem Code: D63.8; Problem Code Type: ICD-10; Not Available [facility] 21:50:49 Prostate specific antigen above referenc e range 631281957 Completed 201705/12/2018 Problem Code: R97.20; Problem Code Type: ICD-10; Not Available [facility] 21:50:56 Iron deficien cy anemia secondar y to inadequa te dietary iron intake 287111949 Completed 201705/27/2018 Problem Code: D50.8; Problem Code Type: ICD-10; Not Available [facility] 21:50:49 Ulcerati ve pancolit is 561428971 Completed 201706/28/2019 Problem Code: K51.00; Problem Code Type: ICD-10; Not Available [facility] 21:50:52 Abscess of limb 001120916 Completed 201705/27/2018 Problem Code: L02.415; Problem Code Type: ICD-10; Not Available [facility] 21:51:00 Abscess of leg, except foot 48543064 Completed 201705/27/2018 Not Available [facility] 21:51:10 Ulcerati ve colitis 77604261 Completed 201701/09/2021 Problem Code: 556.6; Problem Code Type: ICD-9; Not Available [facility] 21:51:16 Anemia due to chronic blood loss 208999790 Active 2017 Problem Code: D50.0; Problem Code Type: ICD-10; Not Available [facility] 2 21:50:49 Ulcerati ve pancolit is 999255789 Completed 201706/28/2019 Problem Code: K51.00; Problem Code Type: ICD-10; Not Available [facility] 2 21:50:52 Ulcerati ve colitis 46746901 Completed 201701/09/2021 Problem Code: 556.6; Problem Code Type: ICD-9; Not Available [facility] 2 21:51:17 Acute posthemo rrhagic anemia 744044848 Completed 201706/12/2018 Problem Code: D62; Problem Code Type: ICD-10; Not Available [facility] 2 21:50:49 Acute posthemo rrhagic anemia 355656667 Completed 201706/17/2018 Problem Code: D62; Problem Code Type: ICD-10; Not Available [facility] 2 21:50:49 Acute posthemo rrhagic anemia 333268447 Completed 201706/24/2018 Problem Code: D62; Problem Code Type: ICD-10; Not Available [facility] 2 21:50:49 Pain in right knee Completed 201705/01/2018 Problem Code: M25.561; Problem Code Type: ICD-10; Not Available [facility] 2 21:50:53 Pain in left knee Completed 201705/01/2018 Problem Code: M25.562; Problem Code Type: ICD-10; Not Available [facility] 2 21:50:54 Knee pain Completed 201705/04/2022 Problem Code: 719.46; Problem Code Type: ICD-9; JUAN ANTONIO mortensen [employer] 2 11:16:05 Acute sinusiti s 16369570 Completed 201707/03/2018 Problem Code: J01.90; Problem Code Type: ICD-10; JUAN ANTONIO mortensen [employer] 11:16:05 Acute bronchit is 41351699 Completed 201708/18/2018 Problem Code: J20.9; Problem Code Type: ICD-10; Not Available [facility] 2 21:50:51 Idiopath ic osteoart hritis 898510582 Active 2018 Problem Code: M17.0; Problem Code Type: ICD-10; Not Available [facility] 2 21:51:01 Allergic sensitiz ation 153175025 Completed 201805/04/2022 JUAN ANTONIO mortensen, [employer] 11:16:05 Mixed hyperlip idemia 309226557 Active 2018 Problem Code: E78.2; Problem Code Type: ICD-10; Tamar mortensen, [employer] 5 09:56:03 Large prostate 298529293 Active 2018 Problem Code: N40.0; Problem Code Type: ICD-10; Not Available [facility] 2 21:50:54 Dysthymi a 18680126 Active 2018 Problem Code: R53.81; Problem Code Type: ICD-10; Not Available [facility] 21:51:11 Primary insomnia 2947468 Active 2018 Problem Code: F51.01; Problem Code Type: ICD-10; Not Available [facility] 2 21:50:50 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 11:16:05 Body mass index 30+ - obesity 707641421 Active 2018 Problem Code: Z68.35; Problem Code Type: ICD-10; Not Available [facility] 2 21:50:59 Diabetes mellitus screenin g Completed 201805/04/2022 Problem Code: Z13.1; Problem Code Type: ICD-10; JUAN ANTONIO mortensen [employer] 2 11:16:05 Body mass index 30+ - obesity 375733163 Completed 201807/17/2020 Problem Code: Z68.35; Problem Code Type: ICD-10; Not Available [facility] 21:51:01 Atelecta sis 94808239 Completed 201812/14/2019 Problem Code: J98.11; Problem Code Type: ICD-10; Not Available [facility] 2 21:50:52 General examinat ion of patient Completed 201806/28/2019 JUAN ANTONIO mortensen [employer] 2 11:16:05 Body mass index 30+ - obesity 803440620 Completed 201807/17/2020 Problem Code: Z68.35; Problem Code Type: ICD-10; Not Available [facility] 2 21:51:01 Body mass index 30+ - obesity 148187753 Completed 201807/17/2020 Problem Code: Z68.35; Problem Code Type: ICD-10; Not Available [facility] 2 21:51:00 Body mass index 30+ - obesity 362816685 Completed 201907/17/2020 Problem Code: Z68.36; Problem Code Type: ICD-10; Not Available [facility] 2 21:51:13 Disorder of skin and/or subcutan eous tissue 86427870 Completed 201905/04/2022 JUAN ANTONIO mortensen, [employer]. 11:16:05 Body mass index 30+ - obesity 588190116 Completed 201907/17/2020 Problem Code: Z68.36; Problem Code Type: ICD-10; Not Available [facility] 21:51:00 General examinat ion of patient Completed 201905/04/2022 JUAN ANTONIO mortensen, [employer] 11:16:05 General examinat ion of patient Completed 202009/15/2020 JUAN ANTONIO mortensen, [employer] 11:16:05 Body mass index 30+ - obesity 444311354 Completed 202009/15/2020 Problem Code: Z68.36; Problem Code Type: ICD-10; Not Available [facility] 21:51:14 Cough 78299094 Completed 202004/02/2021 Problem Code: R05; Problem Code Type: ICD-10; Not Available [facility] 21:50:54 Acute sinusiti s 55003242 Completed 202005/04/2022 Problem Code: J01; Problem Code Type: ICD-10; JUAN ANTONIO mortensen, [employer] 11:16:05 Eruption 914299575 Completed 202005/04/2022 Problem Code: R21; Problem Code Type: ICD-10; JUAN ANTONIO mortensen, [employer]. 11:16:05 Contusio n of anterior abdomina l wall 619958003 Completed 202005/04/2022 JUAN ANTONIO mortensen, [employer]. 11:16:05 Malignan t neoplasm of skin 792017501 Completed 202004/02/2021 Problem Code: C44.90; Problem Code Type: ICD-10; Not Available [facility] 09/05/202 2 21:50:49 Allergic rhinitis 55037519 Active 2020 Problem Code: J30.9; Problem Code Type: ICD-10; Not Available [facility] 2 21:50:52 Abrasion of skin of palm of hand 277681269 Completed 202109/24/2021 Not Available [facility] 2 21:50:56 Current drug user 483539358 Active 2021 Problem Code: Z79.899; Problem Code Type: ICD-10; Not Available [facility] 2 21:51:02 Acute frontal sinusiti s 27173948 Completed 202105/04/2022 Problem Code: J01.1; Problem Code Type: ICD-10; JUAN ANTONIO mortensen, [employer] 2 11:16:06 Generali zed anxiety disorder 42130557 Active 2022 Problem Code: F41.1; Problem Code Type: ICD-10; Maya Torres, SIMI [address] [place] [address], [address] , [employer] 3 11:40:35 Problem Notes None recorded. Procedures Surgical History Date Name Laterality Status Provider Name and Address Organization Details Recorded Time 7 hernia repair completed Not Available [facility] 03/23/2022 22:56:15 Imaging Results None recorded. Procedure [...] Updated DateTime 5 175.26 cm 36.8 kg/m2 905493. 5 g 83 /min 91 % 134/85 mm[Hg] Tamar Durham [employer] 5 10:47:28 Social History Question Answer Notes LastModified by Organizat ion Details LastModified Time Tobacco Smoking Status Former Smoker JUAN ANTONIO mortensen, [employer], [employer] 05/04/2022 11:17:53 Do You Have An Advance Directive? No Information n ot available 06/04/2022 Are You Blind Or Do You Have Difficulty Seeing? No [email or web address] Information n ot available 05/04/2022 What Is Your Level Of Caffeine Consumption? Moderate Information not available 11/30/2022 Are You A Caregiver? No [email or web address] Information not available 06/04/2022 In The 14 [...] Do You Have Serious Difficulty Hearing? No [email or web address] Information not available 05/04/2022 What Type Of Diet Are You Following? REGULAR [email or web address] Information n ot available 06/04/2022 Have There Been Any Changes To Your Family Or Social Situation? No Information no t available 06/04/2022 When Did You Quit Smoking? 6-10yearssinc elastcigarett e Information not available 06/01/2024 Do You Have A Medical Power Of Receipt And Report Clerk? No Information not available 06/04/2022 What Was The Date Of Your Most Recent Tobacco Screening? 05/09/2025 Information not available 05/09/2025 What Is Your Current Pack Years? 20-29packyear s [email or web address] Information not available 05/04/2022 What Is Your Relationship Status? [email or web address] Information not available 05/04/2022 Do You Use Your Seat Belt Or Car Seat Routinely? Yes [email or web address] Information not available 06/04/2022 Do You Have Smoke And Carbon Monoxide Detectors In Your Home? Yes [email or web address] Information not available 06/04/2022 How Much Tobacco Do You Smoke? 1 PPD Information not available 06/01/2024 Do You Use Sunscreen Routinely? No [email or web address] Information not available 06/04/2022 Have You Recently Traveled Abroad? No [email or web address] Information not available 06/04/2022 Do You Have Difficulty Walking Or Climbing Stairs? No [email or web address] Information not available 05/04/2022 Are You Currently In School? No [email or web address] Information not available 06/04/2022 Do You Have Any Dietary Restrictions? No [email or web address] Information not available 06/04/2022 Sex: Male Functional Status Question Answer Note LastModified by Organizat ion Details LastModified Time Do you use any illicit or recreational drugs? No Information not available 11/30/2022 What is your level of alcohol consumption? None [email or web address] Information not available 05/04/2022 Are you currently employed? No Information not available 06/04/2022 Do you have transportation difficulties? No [email or web address] Information not available 05/04/2022 Are you able to walk independently without assistance or assistive devices? YESWOREST [email or web address] Information not available 05/04/2022 Do you have difficulty doing errands alone? No [email or web address] Information not available 05/04/2022 Are you able to care for yourself independently? Yes [email or web address] Information not available 05/04/2022 Do you have difficulty dressing, bathing, grooming, or toileting? No [email or web address] Information not available 05/04/2022 What is your exercise level? None [email or web address] Information not available 06/04/2022 Mental Status Question Answer Note LastModified by Organization D etails LastModified Time Do you have difficulty concentrating, remembering or making decisions? No [email or web address] Information no t available 05/04/2022 Family History Relationship Description Onset Age of this Age Resolved Age Notes LastModified by Organization Details LastModified Time Unspecified Relation Family history of Hypertension [email or web address] Not available 11:16:26 Unspecified Relation Family history of malignant neoplasm [email or web address] Not available 05/04 11:16:34 Unspecified Relation Family history of polyp of colon [email or web address] Not available 05/04 11:16:39 Medical History Condition Response Allergies (Food, seasonal, environmental ) Y Hypertension Y GI Problems Y Immunizations Vaccine Type Date Status Note Provider Name and Address Organization Details Recorded Time zoster recombinant 024 cancelled patient objection Maya Torres APRN [address] [place], [address], [employer] 10/03/2023 13:15:21 pneumococcal polysaccharide PPV23 019 completed Tamar mortensen, [employer] 05/09/2025 10:23:09 Pneumococcal conjugate PCV 13 10/08/2 018 completed Tamar Durham null, [employer] 05/09/2025 10:23:09 COVID-19, mRNA, LNP-S, PF, 100 mcg/0.5mL dose or 50 mcg/0.25mL dose 021 completed Tamar Castellony null, [employer] 05/09/2025 10:23:09 COVID-19, mRNA, LNP-S, PF, 100 mcg/0.5mL dose or 50 mcg/0.25mL dose 021 completed Tamar Castellony null, [employer] 05/09/2025 10:23:09 COVID-19, mRNA, LNP-S, PF, 100 mcg/0.5mL dose or 50 mcg/0.25mL dose 021 completed Tamar Marva null, [employer] 05/09/2025 10:23:09 Influenza, high-dose, trivalent, PF 019 completed JUAN ANTONIO EILEEN null, [employer] 07/02/2022 11:24:10 Influenza, split virus, trivalent, PF 017 completed JUAN ANTONIO EILEEN null, [employer] 07/02/2022 11:24:10 Influenza, MDCK, quadrivalent, PF completed JUAN ANTONIO EILEEN null, [employer] 07/02/2022 11:24:10 Tdap 016 completed JUAN ANTONIO EILEEN null, [employer] 07/02/2022 11:24:10 Influenza, high-dose, trivalent, PF 018 completed JUAN ANTONIO EILEEN null, [employer] 07/02/2022 11:24:10 COVID-19, mRNA, LNP-S, bivalent, PF, 50 mcg/0.5 mL or 25mcg/0.25 mL dose 022 completed JUAN ANTONIO EILEEN null, [employer] 07/02/2022 11:24:10 Influenza, high-dose, quadrivalent, PF 022 completed [facility], [facility] [employer] 07/02/2022 11:24:10 Influenza, high-dose, quadrivalent, PF 021 completed [facility]AN ANTONIO mortensen [facility] [employer] 07/02/2022 11:24:10 RSV, recombinant, protein subunit RSVpreF, adjuvant reconstituted, 0.5 mL, PF 023 completed Not Available [facility] 05/09/2025 10:21:48 Influenza, high-dose, quadrivalent, PF 023 completed Not Available [facility] 05/09/2025 10:21:48 Influenza, high-dose, trivalent, PF 024 completed Not Available [facility] 05/09/2025 10:21:48 Pneumococcal conjugate PCV20, polysaccharide [id number] conjugate, adjuvant, PF 025 completed Not Available [facility] 05/09/2025 10:21:48 Influenza, high-dose, trivalent, PF 025 completed Not Available [facility] 05/09/2025 10:21:48 Influenza, high-dose, quadrivalent, PF 020 completed [facility]ar mortensen, [facility] [employer] 05/09/2025 10:23:09 Past Encounters Encounter ID Performer Location Encounter Start Date Encounter Closed Date Diagnosis/Indication Diagnosis SNOMED-CT Code Diagnosis ICD10 Code Diagnosis IMO Codes Diagnosis Note [id number] Maya Torres [address] [address] 05/09/2025 10:20:23 05/09/2025 11:27:11 Generalized anxiety disorder 94583776 F41.1 controlled substance agreement and drug screen UTD at this time. Essential hypertension 65791966 I10 Gastroesop hageal reflux disease without esophagitis 747556955 K21.9 Allergic rhinitis 420395 04 J30.9 Body mass index 30+ - obesity 123801640 Z68.36 832838 Health Concerns Section Related Observation LastModified by Organization Detai ls LastModified Time None Recorded Concern Status LastModified by Organization Details LastModified Time None Recorded Payers Encounter Date Sequence Insurance Name Policy Number Policy Sutherland Covered Member ID Sutherland Member ID Guarantor Name 05/09/2025 1 [place] Stephane Mendieta [id number] Stephane Mendieta 05/09/2025 2 [employer] SUPPLEMENTAL - [employer]URANCE (MEDICARE SUPPLEMENT) Stephane Lozano Anam [id number] Stephane Mendieta Notes Date Note Type Note Provider Name and Address Organization Details Recorded Time 05/09/2025 text/html pt here today for medication refills. pt states hes doing well on current medication regime and has no new complaints today. pt requested more trelegy samples and i gave him 4. Maya Torres, MARKETING MGR [address] [facility], [place], [address], [facility] [employer] 05/09/2025 18:02:01"
--- OUTSIDE RECORDS SUMMARY | 2025-07-13 10:20 | XMS_ITS | Encounter Summary ---
Author Organization [employer] ([place], [place], [place], [place], [place]) Address [address] [place] [address] Care Team Providers Care Coal And [employer] Supervisor Name Role Phone Maya Torres APRN Primary Care Provider [phone] Encounter Details Date Type Department Care Team (Late st Contact Info) Description 10/27/2020 Transcribed Document [facility] Family Medicine [address] [place] [address] ProviderJean MD [address] [place] [address] Social History Tobacco Use Types [...] 10/27/2020 6:32 PM CDT Electronically signed by [facility] Conversion Window Air Conditioner Installer Cerner at 11/04/2022 3:28 PM CDT documented in this encounter Plan of Treatment Not on file documented as of this encounter Visit Diagnoses Not on filedocumented in this encounter Care Teams [employer] And [employer] Supervisor Relationship Specialty Start Date End Date Maya Torres APRN [address] [facility] [address] [place] [address] PCP - General Family Medicine 08/27/22 documented as of this encounter
--- OUTSIDE RECORDS SUMMARY | 2025-07-13 10:20 | XMS_ITS | Clinical Summary ---
Author Organization [facility] Address [address] [place] [address] Phone Care Team Providers Care Spray Drier Operator Name Role Phone Jose Cruz COLEMAN, Domingo Jett Unavailable [phone] Olga Licea APRN Unavailable [phone] Reason for Visit and Chief Complaint [Patient Encounter] Problems Includes: Problems addressed during this encounter and other active Problems All Visits Onset Date Date of Diagnosis Resolved Date Provider Condition Status Soft Tissue Pain Hand 12/05/2024 12/05/2024 Flako Pulido PA-C Active Last Documented On 5 1:43AM ; [facility] History of Lower Back Pain M idline Right Side 04/12/2022 04/12/2022 Holden Modi PA-C Active Last Documented On 5 1:41AM ; [facility] Joint Pain Left Thumb 03/12/2021 03/12/2021 Charles Hernandez MD Active Last Documented On 5 1:40AM ; [facility] Joint Pain in Both Knees 04/05/2019 04/05/2019 Arlet Billingsley MD Active Last Documented On 5 1:39AM ; [facility] Plan of Treatment Future Appointments Date Time Location Provi [place] Post Op 07/19/2025 11:00AM [facility] [place] Holden Modi PA-C Last Documented On 5 10:29AM ; [facility] Assessments Includes: Assessments from this encounter No Assessments Recorded Medical Equipment - Implanted Devices Includes: Current Devices No Medical Equipment Recorded Medications Includes: Medications discussed during this encounter and other current Medications New / Renewed during this visit sIsa Rodriguez MD on 07/03/2025 Percocet 5-325 MG Oral Tablet Provider: Issa Rodriguez MD 15 day supply: 40 tablet, 0 refills Diagnosis: 1 po q 4h prn pain Pharmacy: [facility][id number] - [address] , [facility], [id number] - Last Documented On 8:39AM By Issa Rodriguez ; [facility] Current Medications (continue as prescribed) Clindamycin HCl 300 MG Oral Capsule 01/07/2025 Provi tahira: Holden Modi PA-C Diagnosis: Last Documented On 10:36AM By Quentin Burk ; [facility] oxyCODONE-Acetaminophen 5-325 MG Oral Tablet Provider: Issa Rodriguez MD Diagnosis: Last Documented On 9:50AM By Quentin Burk ; [facility] Pantoprazole Sodium 40 MG Or al Tablet Delayed Release 12/09/2024 Provider: Maya Torres GARNETT MACHINE OPERATOR Diagnosis: Last Documented On 9:50AM By Quentin Burk ; [facility] LORazepam 1 MG Oral Tablet 12/04/2024 Provider: Nancy Torres GARNETT MACHINE OPERATOR Diagnosis: Last Documented On 9:50AM By Quentin Burk ; [facility] Doxycycline Hyclate 100 MG Oral Capsule 12/04/2024 P rosoniader: Diagnosis: Last Documented On 9:50AM By Quentin Burk ; [facility] sulfaSALAzine 500 MG Oral Tablet 11/27/2024 Provider : Maya Torres GARNETT MACHINE OPERATOR Diagnosis: Last Documented On 9:50AM By Quentin Burk ; [facility] Albuterol Sulfate HFA 108 (9 0 Base) MCG/ACT Inhalation Aerosol Solution 11/07/2024 Provider: Maya anderson GARNETT MACHINE OPERATOR Diagnosis: Last Documented On 06/13/202 5 9:50AM By Quentin Burk ; [facility] Finasteride 5 MG Oral Tablet 11/03/2024 Provider: Maya Torres APRN Diagnosis: Last Documented On 5 9:50AM By Quentin Burk ; [facility] Tamsulosin HCl 0.4 MG Oral Capsule 11/03/2024 Provid er: Maya Torres APRN Diagnosis: Last Documented On 5 3:49PM By Marifer Nuñez ; [facility] Amoxicillin 875 MG Oral Tablet 09/11/2024 Provider: Diagnosis: Last Documented On 5 9:50AM By Quentin Burk ; [facility] predniSONE 10 MG Oral Tablet 03/11/2021 Provider: Jarek Muñiz DO Diagnosis: Last Documented On 8:34AM By Deborah Lowery ; [facility] Amoxicillin 500 MG Oral Capsule 03/11/2021 Provider: Jarek Muñiz DO Diagnosis: Last Documented On 8:34AM By Deborah Lowery ; [facility] Cephalexin 500 MG Oral Capsule 03/10/2021 Provider: Diagnosis: Last Documented On 8:34AM By Deborah Lowery ; [facility] HYDROcodone-Acetaminophen 5-325 MG Oral Tablet 021 Provider: Diagnosis: Last Documented On 8:34AM By Deborah Lowery ; [facility] Gabapentin 300 MG Oral Capsule 03/06/2021 Provider: Diagnosis: Last Documented On 8:34AM By Deborah Lowery ; [facility] LORazepam 1 MG Oral Tablet 03/06/2021 Provider: Diagnosis: Last Documented On 8:34AM By Deborah Lowery ; [facility] Esomeprazole Magnesium 40 MG Oral Capsule Delayed Rele ase 03/04/2021 Provider: Diagnosis: Last Documented On 8:34AM By Deborah Lowery ; [facility] Esomeprazole Magnesium 40 MG Oral Capsule Delayed Rele ase 03/04/2021 Provider: Diagnosis: Last Documented On 8:34AM By Deborah Lowery ; [facility] Fluticasone Propionate 50 MCG/ACT Nasal Suspension Provider: Diagnosis: Last Documented On 8:35AM By Deborah Lowery ; [facility] Medications Administered Includes: Administered Medications from this encounter No Administered Medications Recorded Results Includes: Results discussed during this encounter No Results Recorded For Specified Dates History of Present Illness Includes: History of Present Illness from this encounter No History of Present Illness Recorded Social History Description Last Updated Sex - Male 07/05/2025 Last Documented On 5 2:08PM ; [facility] Smoking Status Unknown Medical History [...] Includes: Active Allergies No Known Allergies Care Spray Drier Operator Name (Identifier) Role/Relation Location/Telecom Last Documented By Domingo Billingsley MD ([id number]) Assigned practitioner (occupation) tel:[phone] Last Documented On 07/05/2025 2:08PM ; [facility] Olga Vicki Licea APRN ([id number]) [address] [place] [address], [facility], [address] tel:[phone] Last Documented On 04/05/2019 9:06AM ; [facility] Encounters Encounter Provider Location (Healthcare Service Location) Date Check-In Time Check-Out Time Diagnosis Encounter Disposition [Patient Encounter] Issa Rodriguez MD 2024 8:31AM 11:59PM Payer Includes: Active Insurance Policies Plan Name (Payer ID) Coverage Type Member ID Group # Subscriber (ID) Relationship Effective Dates 1 - Medicare Part B [facility] ([id number]) [id number] Stephane Mendieta Self (Checked on 06/03/2025) Last Documented On 9 7:57AM ; [facility] 2 [facility] Insurance [id number] Stephane Marta AnnFraziers Bottom Self 09/15/2017 - Unknown Last Documented On 9 8:40AM ; [facility]
--- OUTSIDE RECORDS SUMMARY | 2025-07-13 10:20 | XMS_ITS | Encounter Summary ---
Author Organization [employer] ([place], [place], [place], [place], [place]) Address [address] [place] [address] Care Team Providers Care Merchandising Internship Name Role Phone Maya Torres SIMI Primary Care Provider [phone]- [phone] Encounter Details Date Type Department Care Team (Late st Contact Info) Description 10/27/[address] [facility] [place] [address] ProviderJean MD [address] [place] [id number] Social History Tobacco Use Types Packs/Day Years [...] EDT Height Source Stated Height Entry Format [place] Height/Length, MARTINIQUAIS (ft) 5 ft Height/Length MARTINIQUAIS 8 Inch CLINICALHEIGHT 172.72 cm [place] Body Weight 67.45 kg Weight Source, ED Critical estimated dosing weight Weight Entry Format [place] Weight [place] lb 250 lb CLINICALWEIGHT 113.64 [...] Color Yellow Urine Appearance Clear Urine Specific Ivor 1.006 Urine pH Dipstick 6.5 Urine Leukocyte [...] % LOW ALYC # 1 K/uL NA [place] Percent Man 2 % LOW Eos Percent Man 1 % Baso Percent Man 1 % Myelo Percent Man 2 % HI RBC Morphology Normal Platelet Ct Estimate Adequate Slide Review Add Diff Man PT 9.9 Second(s) INR 0.9 PTT 25.2 Second(s) Procalcitonin <0.25 ng/mL SARS-CoV-2 (COVID19 PCR) Negative . Radiology results: Radiology Results (Last 48 hours) [id number] -- 10/27/2020 11:59 CT Abdomen Pelvis W [...] on filedocumented in this encounter Care Teams Merchandising Internship Relationship Specialty Start Date End Date Maya Torres, CONSTRUCTION ENGINEERING MANAGER [address] [address] PCP - General Family Medicine 08/27/22 documented as of this encounter
--- OUTSIDE RECORDS SUMMARY | 2025-07-13 10:20 | XMS_ITS | Clinical Summary ---
Author Organization [employer] ([place], [place], [place], [place], [place]) Address [address] [place] [address] Care Team Providers Care Nutrition Assistant Name Role Phone Maya Torres APRN Primary Care Provider [phone]- [phone] Allergies No known active allergies Medications traZODone [...] Date Jan rded Speak language other than Indonesian at home Not on file 08/04/2023 Want [...] 04/24/2019, 2017 Insurance MEDICARE PART A B [facility] Care Teams Nutrition Assistant Relationship Specialty Start Date End Date Maya Torres, DATA COLLECTION ASSOCIATE [address] [phone] PCP - General Family Medicine 08/27/22
--- OUTSIDE RECORDS SUMMARY | 2025-07-13 10:20 | XMS_ITS | Encounter Summary ---
Author Organization [employer] ([place], [place], [place], [place], [place]) Address [address] [place] [address] Care Team Providers Care Exchange Underwriting Consultant Name Role Phone Maya Torres APRN Primary Care Provider [phone]- [phone] Encounter Details Date Type Department Care Team (Late st Contact Info) Description 10/30/2020 Transcribed Document [facility] Family Medicine [facility] [place] [address] ProviderJean MD [address] [place] [address] Social History Tobacco Use Types [...] on filedocumented in this encounter Care Teams Exchange Underwriting Consultant Relationship Specialty Start Date End Date Maya Torres APRN [address] [facility] [address] [place] [address] PCP - General Family Medicine 08/27/22 documented as of this encounter
--- OUTSIDE RECORDS SUMMARY | 2025-07-13 10:21 | XMS_ITS | Encounter Summary ---
Author Organization [employer] ([place], [place], [place], [place], [place]) Address [address] [place] [address] Care Team Providers Care Cross Enterprise Integrator Name Role Phone Maya Torres SIMI Primary Care Provider [phone]- [phone] Encounter Details Date Type Department Care Team (Late st Contact Info) Description 10/18/2020 Transcribed Document [facility] [place] [address] [place] [address] ProviderJean MD [address] [place], [place] [id number] Social History Tobacco Use Types Packs/Day Years [...] Communication Barrier : None Primary Language : [place] Leone[place] Any Spiritual/Cultural Needs or Requests : No [...] on filedocumented in this encounter Care Teams Cross Enterprise Integrator Relationship Specialty Start Date End Date Maya Torres, TECHNICIAN SEMICONDUCTOR DEVELOPMENT [address] [address] PCP - General Family Medicine 08/27/22 documented as of this encounter
--- OUTSIDE RECORDS SUMMARY | 2025-07-13 10:21 | XMS_ITS | Clinical Summary ---
Author Organization [facility] , [facility] Address [address] [place] [address] Phone Care Team Providers Care Grout Worker Name Role Phone Jose Cruz COLEMAN, Domingo Jett Unavailable [phone] Olga Licea APRN Unavailable [phone] Reason for Visit and Chief Complaint The Chief Complaint is: back pain Problems Includes: Problems addressed during this encounter and other active Problems All Visits Onset Date Date of Diagnosis Resolved Date Provider Condition Status Soft Tissue Pain Hand 12/05/2024 12/05/2024 Flako Pulido PA-C Active Last Documented On 5 1:43AM ; [facility], [facility] History of Lower Back Pain M idline Right Side 04/12/2022 04/12/2022 Holden Modi PA-C Active Last Documented On 5 1:41AM ; [facility], [facility] Joint Pain Left Thumb 03/12/2021 03/12/2021 Charles Hernandez MD Active Last Documented On 5 1:40AM ; [facility], [facility] Joint Pain in Both Knees 04/05/2019 04/05/2019 Arlet Billingsley MD Active Last Documented On 5 1:39AM ; [facility], [facility] Plan of Treatment Patient screened for future fall risk: documentation of any fall with injury in past year. - Last Documented On 01/28/2025 11:48AM ; [facility], [facility] Patient was seen by myself Holden Modi PA-C. Patient will follow up 1 week we are going to keep him on clindamycin we will take the geronimo out of all the incisions today and recheck this in a week - Last Documented On 01/28/2025 11:48AM ; [facility] Pending Tests Order Diagnosis Results Due Ordering P xena Radiology - MRI MRI Lumbar Spine 04/26/22 Chas Modi PA-C Last Documented On 2 1:06PM ; [facility], [facility] Future Appointments Date Time Location Provi [place] Post Op 07/19/2025 11:00AM 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 - Last Documented On 01/28/2025 11:48AM ; [facility] Instructions Includes: Instructions from this encounter Instructions to patient Lose weight Last Documented On 5 10:49AM ; [facility] Medical Equipment - Implanted Devices Includes: Current Devices No Medical Equipment Recorded Medications Includes: Medications discussed during this encounter and other current Medications New / Renewed during this visit Holden Modi PA-C on 01/07/2025 Clindamycin HCl 300 MG Oral Capsule Provider: Holden Modi PA-C 2 day supply: 21 capsule, 0 refills Diagnosis: take 2 pills, 3 three times a day Pharmacy: [id number] - [address] , [facility] [id number] - Last Documented On 5 11:06AM By Quentin Burk ; [facility] Current Medications (continue as prescribed) Percocet 5-325 MG Oral Tablet 07/03/2025 - 07/18/2025 Provider: Issa Rodriguez MD Diagnosis: 1 po q 4h prn pain Last Documented On 5 8:39AM By Issa Rodriguez ; [facility] Clindamycin HCl 300 MG Oral Capsule 01/07/2025 Provi t[place]ira: Holden Modi PA-C Diagnosis: Last Documented On 5 10:36AM By Quentin Burk ; [facility], [facility] oxyCODONE-Acetaminophen 5-325 MG Oral Tablet Provider: Issa Rodriguez MD Diagnosis: Last Documented On 5 9:50AM By Quentin Burk ; [facility], [facility] Pantoprazole Sodium 40 MG Or al Tablet Delayed Release 12/09/2024 Provider: Maya Torres LIBRARY CONSULTANT Diagnosis: Last Documented On 5 9:50AM By Quentin Burk ; [facility], [facility] LORazepam 1 MG Oral Tablet 12/04/2024 Provider: Nancy Torres LIBRARY CONSULTANT Diagnosis: Last Documented On 5 9:50AM By Quentin Burk ; [facility], [facility] Doxycycline Hyclate 100 MG Oral Capsule 12/04/2024 P padminider: Diagnosis: Last Documented On 5 9:50AM By Quentin Burk ; [facility], [facility] sulfaSALAzine 500 MG Oral Tablet 11/27/2024 Provider : Maya Torres LIBRARY CONSULTANT Diagnosis: Last Documented On 5 9:50AM By Quentin Burk ; [facility], [facility] Albuterol Sulfate HFA 108 (9 0 Base) MCG/ACT Inhalation Aerosol Solution 11/07/2024 Provider: Maya anderson LIBRARY CONSULTANT Diagnosis: Last Documented On 5 9:50AM By Quentin Burk ; [facility], [facility] Finasteride 5 MG Oral Tablet 11/03/2024 Provider: Maya Torres LIBRARY CONSULTANT Diagnosis: Last Documented On 5 9:50AM By Quentin Burk ; [facility], [facility] Tamsulosin HCl 0.4 MG Oral Capsule 11/03/2024 Provid er: Maya Torres LIBRARY CONSULTANT Diagnosis: Last Documented On 5 3:49PM By Marifer Nuñez ; [facility], [facility] Amoxicillin 875 MG Oral Tablet 09/11/2024 Provider: Diagnosis: Last Documented On 5 9:50AM By Quentin Burk ; [facility], [facility] predniSONE 10 MG Oral Tablet 03/11/2021 Provider: Jarek Muñiz DO Diagnosis: Last Documented On 8:34AM By Deborah Lowery ; [facility], [facility] Amoxicillin 500 MG Oral Capsule 03/11/2021 Provider: Jarek Muñiz DO Diagnosis: Last Documented On 8:34AM By Deborah Lowery ; [facility] Cephalexin 500 MG Oral Capsule 03/10/2021 Provider: Diagnosis: Last Documented On 8:34AM By Deborah Lowery ; [facility], [facility] HYDROcodone-Acetaminophen 5-325 MG Oral Tablet 021 Provider: Diagnosis: Last Documented On 8:34AM By Deborah Lowery ; [facility], [facility] Gabapentin 300 MG Oral Capsule 03/06/2021 Provider: Diagnosis: Last Documented On 8:34AM By Deborah Lowery ; [facility], [facility] LORazepam 1 MG Oral Tablet 03/06/2021 Provider: Diagnosis: Last Documented On 8:34AM By Deborah Lowery ; [facility], [facility] Esomeprazole Magnesium 40 MG Oral Capsule Delayed Rele ase 03/04/2021 Provider: Diagnosis: Last Documented On 8:34AM By Deborah Lowery ; [facility], [facility] Esomeprazole Magnesium 40 MG Oral Capsule Delayed Rele ase 03/04/2021 Provider: Diagnosis: Last Documented On 8:34AM By Deborah Lowery ; [facility], [facility] Fluticasone Propionate 50 MCG/ACT Nasal Suspension Provider: Diagnosis: Last Documented On 8:35AM By Deborah Lowery ; [facility], [facility] Past Medications on file Clindamycin HCl 300 MG Oral Capsule 12/28/2024 - 01/08/2025 Provider: Holden Steiner Diagnosis: three times a day Last Documented On 5 10:10AM By Quentin Burk ; [facility], [facility] Percocet 5-325 MG Oral Tablet 12/19/2024 - 01/03/2025 Provider: Issa Rodriguez MD Diagnosis: 1 po q 4h prn pain Last Documented On 5 8:40AM By Issa Rodriguez ; [facility], [facility] Losartan Potassium 100 MG Oral Tablet 12/05/2024 - Provider: Diagnosis: Last Documented On 3:50PM By Marifer Nuñez ; [facility] DULoxetine HCl 60 MG Oral Ca psule Delayed Release Particles 12/05/2024 - 03/05/2025 Provider: Diagnosis: Last Documented On 3:49PM By Marifer Nuñez ; [facility] Montelukast Sodium 10 MG Oral Tablet 12/05/2024 - 02/15 Provider: Diagnosis: Last Documented On 3:49PM By Marifer Nuñez ; [facility], [facility] Medications Administered Includes: Administered Medications from this encounter No Administered Medications Recorded Vital Signs Includes: Vital Signs from this encounter Vital Name 01/07/2025 11:15A 01/07/2025 10: 50A Temp-Oral (F) 97.5 Height (in) 69 Weight (lb) 250 Body Mass Index 36.9 Body Surface Area 2.3 Pain Level 2 Last Documented: On 01/07/2025 11:15A M ; [facility] On 01/07/2025 10:50AM ; [facility] Results Includes: Results discussed during this [...] Documented On 5 10:49AM ; [facility] No recent change in diet 04/22/2022 Last Documented On 5 10:49AM ; [facility] Not a current smoker. 04/22/2022 Last Documented On 5 10:49AM ; [facility] Non-smoker 03/12/2021 Last Documented On 5 10:49AM ; [facility] No tobacco use 04/05/2019 Last Documented On 5 10:49AM ; [facility], [facility] Smoking status : Never smoker 04/05/2019 Last Documented On 5 10:49AM ; [facility] Caffeine use 04/05/2019 Last Documented On 5 10:49AM ; [facility], [facility] No recent change in diet 04/05/2019 Last Documented On 5 10:49AM ; [facility] Not a current smoker 04/05/2019 Last Documented On 5 10:49AM ; [facility] Not exercising regularly 04/05/2019 Last Documented On 5 10:49AM ; [facility] Not using alcohol 04/05/2019 Last Documented On 5 10:49AM ; [facility], [facility] Not using drugs 04/05/2019 Last Documented On 5 10:49AM ; [facility], [facility] Sex - Male 07/05/2025 Last Documented On 5 2:08PM ; [facility], [facility] Procedures and Surgical History Surgical History Last Updated History of hernia repair 04/05/2019 Last Documented On 5 10:49AM ; [facility], [facility] Medical History Includes: Medical History addressed during this encounter Description Last Updated No recent immunization for flu Last Documented On 5 10:49AM ; [facility], [facility] No recent immunization for pneumococcal pneumonia 03/12/2021 Last Documented On 5 10:49AM ; [facility], [facility] cataracs 04/05/2019 Last Documented On 5 10:49AM ; [facility], [facility] Arthritic joint problems 04/05/2019 Last Documented On 5 10:49AM ; [facility], [facility] Intermittent hypertension 04/05/2019 Last Documented On 5 10:49AM ; [facility], [facility] Family History Includes: Family History addressed during this encounter Description Last Updated Family history of cancer 04/05/2019 Last Documented On 5 10:49AM ; [facility], [facility] Family history of hypertension 9 Last Documented On 10:49AM ; [facility] Review of Systems Includes: Review [...] Anxiety Last Documented On 5 10:49AM ; [facility] Physical Exam Includes: Physical Exam from this encounter Allergies Includes: Active Allergies No Known Allergies Care Grout Worker Name (Identifier) Role/Relation Location/Telecom Last Documented By Domingo Billingsley MD ([id number]) Assigned practitioner (occupation) tel: Last Documented On 07/05/2025 2:08PM ; [facility] Olga Licea APRN ([id number]) [address] [place] [address], [id number] tel: Last Documented On 04/05/2019 9:06AM ; [facility] Encounters Encounter Provider Location (Healthcare Service Location) Date Check-In Time Check-Out Time Diagnosis Encounter Disposition Post Op Holden Modi PA-C [facility] 2024 10:33AM 11:15AM Overweight Payer Includes: Active Insurance Policies Plan Name (Payer ID) Coverage Type Member ID Group # Subscriber (ID) Relationship Effective Dates 1 - Medicare Part B [facility] ([id number]) [id number] Stephane Mendieta Self (Checked on 06/03/2025) Last Documented On 9 7:57AM ; [facility], [facility] 2 - [employer] [facility] [id number] Stephane Mendieta Self 09/15/2017 - Unknown Last Documented On 9 8:40AM ; [facility], [facility] Clinical Notes Includes: Clinical Notes from this encounter * Progress note Date Encounter Last Documented by 01/07/2025 Post Op Last documented on 01/28/2025; 11:48 AM, Holden Modi PA-C; [facility], [facility] Active Problems & Conditions - History [...] Care Team - Olga Licea APRN - SEASONAL RECRUITER
--- OUTSIDE RECORDS SUMMARY | 2025-07-13 10:21 | XMS_ITS | Encounter Summary ---
Author Organization [employer] ([place], [place], [place], [place], [place]) Address [address] [place] [address] Care Team Providers Care Riding Instructor Name Role Phone Maya Torres Reji BELCHER Primary Care Provider [phone] Encounter Details Date Type Department Care Team (Late st Contact Info) Description 10/18/2020 Transcribed Document [facility] Family Medicine [facility] [place] [address] ProviderJean MD [address] [place] [address] Social History Tobacco Use Types [...] Sawant MD - 10/18/2020 9:38 PM CDT [facility] [place], [place] [id number] ISATU MENDIETA :1950 Visit Time:10/18/2020 Your Visit [...] to ED if symptoms worsen. Where: [address] [facility] [address] [place] [address] Business (1) Follow Up with JACKIE LEONARD When Within 2 to 3 days Allergies No Known Medication Allergies Immunizations This Visit No Immunizations Found Medications What How Much When Instructions Next Dose codeine-guaifenesin (codeine-guaifenesin 6.3 mg-100 mg/ 5 mL oral liquid) 7.5 Milliliter(s) Oral Every 6 Hours as needed for for cough Pickup at [id number] dextromethorphan-guaifenesin (dextromethorphan-guaifenesin 5 mg-100 [...] 24HR 55 mcg/ inh nasal spray) 1 Mckinney(s) Nasal Two Times A Day Pharmacy Information [id number]: [address] [place], [place] [id number] [phone] The home medications listed are only as [...] safe for you. General instructions ??? Take [id number] and prescription medicines only as told by [...] Reviewed: 01/04/2019 Vince Patient Education ?? 2020 [employer]. Emergency Awareness and Preventative Care STROKE is [...] Assistance with quitting is available by contacting 9-630-RRUJ-NOW. This is a free resource providing counseling, [...] was given the opportunity to ask questions. Patient/Gelatin Powder Mixer Name: Patient/Gelatin Powder Mixer Signature: Relationship to Patient: Clinician/Hospital Gelatin Powder Mixer Signature: Please Provide a Telephone Number Where You Can Be Reached: Is it Permissible To Leave a Message? Date: documented in this encounter Plan of Treatment Not on file documented as of this encounter Visit Diagnoses Not on filedocumented in this encounter Care Teams Riding Instructor Relationship Specialty Start Date End Date Maya Torres, SIMI [address] [id number] PCP - General Family Medicine 08/27/22 documented as of this encounter
--- OUTSIDE RECORDS SUMMARY | 2025-07-13 10:21 | XMS_ITS | Data Portability ---
Author Organization [employer] [facility] Address [address] [place] [address] Assessment No assessment recorded. Plan of Treatment Reminders Order Date Submit Date Provider Last Modified By Organization Details Last Modified Time Details Appointments SAME DAY ACCESS 2025 02:30P Nancy Torres APRN Not available Not available Not available FOLLOW UP 2025 10:30A M Stephanie Torres APRN Not available Not available Not available Lab lipid panel, serum 2024 025 [facility] [address] [place], [address], 03/09/2025 08:10:55 CBC w/ auto diff 2024 025 [facility] [address] [place], [address], 03/09/2025 08:10:54 TSH + free T4, serum 2024 025 [facility] [address] [place], [address], 03/09/2025 08:10:54 CMP, serum or plasma 2024 025 [facility] [address] [place], [address], 03/09/2025 08:10:55 HbA1c (hemoglob in A1c), blood 2024 025 [facility]), [address] [place], [address], 03/09/2025 08:10:56 vitamin D, 25-hydrox y, total, serum 2024 025 [facility]), [address] [place], [address], 03/09/2025 08:10:57 PSA, total, serum or plasma 2024 025 [facility]), [address] [place], [address], 03/09/2025 08:10:56 cobalamin and folate panel, serum 2024 025 [facility]), [address] [place], [address], 03/09/2025 08:10:56 drug screen, 14 drugs (detect ed), urine - Lorazepam last taken this AM. 2024 025 [facility]), [address] [place], [address], 10/04/2024 14:08:41 Referral None recorded. Procedures None recorded. Surgeries None recorded. Imaging None recorded. Medication Orders lorazepam 1 mg tablet 2024 [facility] (Now [facility]), [address], [place], [address], 05/09/2025 18:00:59 amoxicill in 875 mg-potass ium clavulana te 125 mg tablet 2024 [facility], [address] [place] [address], [address], 03/25/2025 05:01:32 duloxetin e 60 mg capsule,d elayed release 2024 [facility], [address] [address] [address], [place], [address], 02/01/2025 12:20:54 cetirizin e 10 mg tablet 2024 025 [facility], [address] [address], [place], [address], 02/01/2025 12:20:59 fluticaso ne propionat e 50 mcg/actua tion nasal spray,kvng pension 2024 025 [facility], [address] [facility] [address], [place], [address], 02/01/2025 12:20:55 finasteri de 5 mg tablet 2024 025 [facility], [address] [facility] [address], [place], [address], 02/01/2025 12:20:56 tamsulosi n 0.4 mg capsule 2024 025 [facility], [address] [facility] [address], [place], [address], 02/01/2025 12:20:55 prednison e 10 mg tablet 2024 025 [facility], [address] [facility] [address], [place], [address], 02/01/2025 12:20:58 ipratropi um 0.5 mg-albute rol 3 mg (2.5 mg base)/3 mL nebulizat ion soln 2024 025 [facility], [address] [facility] [address], [place], [address], 02/01/2025 12:20:58 prednison e 5 mg tablet 2024 025 [facility], [address] [facility] [address], [place], [address], 02/01/2025 10:52:54 lorazepam 1 mg tablet 2024 025 [facility], [address] , [place], [address], 12/03/2024 14:16:48 pantopraz ole 40 mg tablet,de layed release 2024 025 [facility], [address] , [place], [address], 09/27/2024 11:49:11 Patient TargetsNo targets recorded. Patient Instructions Encounter Date Encounter Id Patient Instructions Last Modified By Organization Details Last Modified Time 09/27/2024 [id number] controlled substance agreement* [email or web address] Not available 09/27/2024 11:49:09 02/01/2025 [id number] learning about healthy weight [email or web address] Not available 02/01/2025 18:33:18 Reason for Referral [...] ===== ===== ===== === Not Available [facility] ([facility]) [address] [place], [address], 10/04/2024 14:08:41 09/28/19 25 10/04/2024 COMPL IANCE DRUG CHARISSA SIS, UR pdf . Not Available [facility] ([facility]) [address] [place], [address], 10/04/2024 14:08:41 03/08/20 25 03/09/2025 TSH+F REE T4 TSH 3.680 uIU/m L 0.450- 4.500 normal Not Available [facility] ([facility]) [address] [facility], [place], [address], 03/09/2025 08:10:54 03/08/20 25 03/09/2025 TSH+F REE T4 T4,free(dire ct) 0.89 NG/dL 0.82-1 .77 normal Not Available [facility] ([facility]) [address] [place], [address], 03/09/2025 08:10:54 03/08/20 25 03/09/2025 CBC WITH DIFFE RENTI AL/PL ATELE T WBC 8.4 x10e3 /uL 3.4-10 .8 normal Not Available [facility] ([facility]) [address] [place], [address], 03/09/2025 08:10:54 03/08/20 25 03/09/2025 CBC WITH DIFFE RENTI AL/PL ATELE T RBC 3.97 x10e6 /uL 4.14-5 .80 below low normal Not Available [facility] ([facility]) [address] [place], [address], 03/09/2025 08:10:54 03/08/20 25 03/09/2025 CBC WITH DIFFE RENTI AL/PL ATELE T hemoglobin 11.1 g/dL 13.0-1 7.7 below low normal Not Available [facility] ([facility]) [address] [place], [address], 03/09/2025 08:10:54 03/08/20 25 03/09/2025 CBC WITH DIFFE RENTI AL/PL ATELE T hematocrit 35.3 % 37.5-5 1.0 below low normal Not Available [facility] ([facility]) [address] [place], [address], 03/09/2025 08:10:54 03/08/2003/09/2025 CBC WITH DIFFE RENTI AL/PL ATELE T MCV 89 fL 79-97 normal Not Available [facility] ([facility]) [address] [place], [address], 03/09/2025 08:10:54 03/08/20 25 03/09/2025 CBC WITH DIFFE RENTI AL/PL ATELE T MCH 28.0 pg 26.6-3 3.0 normal Not Available [facility] ([facility]) [address] [place], [address], 03/09/2025 08:10:54 03/08/20 25 03/09/2025 CBC WITH DIFFE RENTI AL/PL ATELE T MCHC 31.4 g/dL 31.5-3 5.7 below low normal Not Available [facility] ([facility]) [address] [place], [address], 03/09/2025 08:10:54 03/08/20 25 03/09/2025 CBC WITH DIFFE RENTI AL/PL ATELE T RDW 14.4 % 11.6-1 5.4 Not Available [facility] ([facility]) [address] [place], [address], 03/09/2025 08:10:54 03/08/20 25 03/09/2025 CBC WITH DIFFE RENTI AL/PL ATELE T platelets 238 x10e3 /uL 150-45 0 normal Not Available [facility] ([facility]) [address] [place], [address], 03/09/2025 08:10:54 03/08/20 25 03/09/2025 CBC WITH DIFFE RENTI AL/PL ATELE T neutrophils 68 % not estab. normal Not Available [facility] ([facility]) [address] [place], [address], 03/09/2025 08:10:54 03/08/20 25 03/09/2025 CBC WITH DIFFE RENTI AL/PL ATELE T lymphs 18 % not estab. normal Not Available [facility] ([facility]) [address] [place], [address], 03/09/2025 08:10:54 03/08/20 25 03/09/2025 CBC WITH DIFFE RENTI AL/PL ATELE T monocytes 9 % not estab. normal Not Available [facility] ([facility]) [address] [place], [address], 03/09/2025 08:10:54 03/08/20 25 03/09/2025 CBC WITH DIFFE RENTI AL/PL ATELE T eos 3 % not estab. normal Not Available [facility] ([facility]) [address] [place], [address], 03/09/2025 08:10:54 03/08/20 25 03/09/2025 CBC WITH DIFFE RENTI AL/PL ATELE T basos 1 % not estab. normal Not Available [facility] ([facility]) [address] [place], [address], 03/09/2025 08:10:54 03/08/20 25 03/09/2025 CBC WITH DIFFE RENTI AL/PL ATELE T immature cells ARC FURNACE OPERATOR Not Available [facility]) [address] [facility] [place], [address], 03/09/2025 08:10:54 03/08/20 25 03/09/2025 CBC WITH DIFFE RENTI AL/PL ATELE T neutrophils (absolute) 5.9 x10e3 /uL 1.4-7. 0 normal Not Available [facility] ([facility]) [address] [facility], [place], [address], 03/09/2025 08:10:54 03/08/20 25 03/09/2025 CBC WITH DIFFE RENTI AL/PL ATELE T lymphs (absolute) 1.5 x10e3 /uL 0.7-3. 1 normal Not Available [facility] ([facility]) [address] [facility], [place], [address], 03/09/2025 08:10:54 03/08/20 25 03/09/2025 CBC WITH DIFFE RENTI AL/PL ATELE T monocytes(ab solute) 0.8 x10e3 /uL 0.1-0. 9 normal Not Available [facility] ([facility]) [address] [place], [address], 03/09/2025 08:10:54 03/08/20 25 03/09/2025 CBC WITH DIFFE RENTI AL/PL ATELE T eos (absolute) 0.2 x10e3 /uL 0.0-0. 4 normal Not Available [facility] ([facility]) [address] [facility], [place], [address], 03/09/2025 08:10:54 03/08/20 25 03/09/2025 CBC WITH DIFFE RENTI AL/PL ATELE T baso (absolute) 0.1 x10e3 /uL 0.0-0. 2 normal Not Available [facility] ([facility]) [address] [place], [address], 03/09/2025 08:10:54 03/08/20 25 03/09/2025 CBC WITH DIFFE RENTI AL/PL ATELE T immature granulocytes 1 % not estab. Not Available [facility] ([facility]) [address] [facility], [place], [address], 03/09/2025 08:10:54 03/08/20 25 03/09/2025 CBC WITH DIFFE RENTI AL/PL ATELE T immature grans (abs) 0.1 x10e3 /uL 0.0-0. 1 Not Available [facility] ([facility]) [address] [facility], [place], [address], 03/09/2025 08:10:54 03/08/20 25 03/09/2025 CBC WITH DIFFE RENTI AL/PL ATELE T NRBC ARC FURNACE OPERATOR Not Available [facility] ([facility]) [address] [facility], [place], [address], 03/09/2025 08:10:54 03/08/20 25 03/09/2025 CBC WITH DIFFE RENTI AL/PL ATELE T hematology comments: ARC FURNACE OPERATOR Not Available [facility] ([facility]) [address] [facility], [place], [address], 03/09/2025 08:10:54 03/08/20 25 03/09/2025 COMP. METAB OLIC PANEL (14) glucose 84 mg/dL 70-99 normal Not Available [facility] ([facility]) [address] [place], [address], 03/09/2025 08:10:55 03/08/20 25 03/09/2025 COMP. METAB OLIC PANEL (14) BUN 12 mg/dL 8-27 normal Not Available [facility] ([facility]) [address] [place], [address], 03/09/2025 08:10:55 03/08/20 25 03/09/2025 COMP. METAB OLIC PANEL (14) creatinine 0.89 mg/dL 0.76-1 .27 normal Not Available [facility] ([facility]) [address] [facility], [place], [address], 03/09/2025 08:10:55 03/08/20 25 03/09/2025 COMP. METAB OLIC PANEL (14) eGFR 91 mL/mi n/1.7 3 >59 normal Not Available [facility] ([facility]) [address] [place], [address], 03/09/2025 08:10:55 03/08/20 25 03/09/2025 COMP. METAB OLIC PANEL (14) BUN/creatini ne ratio 13 10-24 normal Not Available [facility] ([facility]) [address] [place], [address], 03/09/2025 08:10:55 03/08/20 25 03/09/2025 COMP. METAB OLIC PANEL (14) sodium 139 mmol/ L 134-14 4 normal Not Available [facility] ([facility]) [address] [place], [address], 03/09/2025 08:10:55 03/08/20 25 03/09/2025 COMP. METAB OLIC PANEL (14) potassium 3.5 mmol/ L 3.5-5. 2 normal Not Available [facility] ([facility]) [address] [place], [address], 03/09/2025 08:10:55 03/08/20 25 03/09/2025 COMP. METAB OLIC PANEL (14) chloride 103 mmol/ L 96-106 normal Not Available [facility] ([facility]) [address] [place], [address], 03/09/2025 08:10:55 03/08/20 25 03/09/2025 COMP. METAB OLIC PANEL (14) carbon dioxide, total 21 mmol/ L 20-29 normal Not Available [facility] ([facility]) [address] [place], [address], 03/09/2025 08:10:55 03/08/20 25 03/09/2025 COMP. METAB OLIC PANEL (14) calcium 8.8 mg/dL 8.6-10 .2 normal Not Available [facility] ([facility]) [address] [place], [address], 03/09/2025 08:10:55 03/08/20 25 03/09/2025 COMP. METAB OLIC PANEL (14) protein, total 6.7 g/dL 6.0-8. 5 normal Not Available [facility] ([facility]) [address] [place], [address], 03/09/2025 08:10:55 03/08/20 25 03/09/2025 COMP. METAB OLIC PANEL (14) albumin 4.2 g/dL 3.8-4. 8 normal Not Available [facility] ([facility]) [address] [place], [address], 03/09/2025 08:10:55 03/08/20 25 03/09/2025 COMP. METAB OLIC PANEL (14) globulin, total 2.5 g/dL 1.5-4. 5 Not Available [facility] ([facility]) [address] [place], [address], 03/09/2025 08:10:55 03/08/20 25 03/09/2025 COMP. METAB OLIC PANEL (14) bilirubin, total 0.6 mg/dL 0.0-1. 2 normal Not Available [facility] ([facility]) [address] [place], [address], 03/09/2025 08:10:55 03/08/20 25 03/09/2025 COMP. METAB OLIC PANEL (14) alkaline phosphatase 61 IU/L 44-121 normal Not Available [facility]) [address] [place], [address], 03/09/2025 08:10:55 03/08/20 25 03/09/2025 COMP. METAB OLIC PANEL (14) AST (SGOT) 18 IU/L 0-40 normal Not Available [facility] ([facility]) [address] [place], [address], 03/09/2025 08:10:55 03/08/20 25 03/09/2025 COMP. METAB OLIC PANEL (14) ALT (SGPT) 14 IU/L 0-44 normal Not Available [facility] ([facility]) [address] [place], [address], 03/09/2025 08:10:55 03/08/20 25 03/09/2025 LIPID PANEL cholesterol, total 144 mg/dL 100-19 9 normal Not Available [facility] ([facility]) [address] [place], [address], 03/09/2025 08:10:55 03/08/20 25 03/09/2025 LIPID PANEL triglyceride s 165 mg/dL 0-149 above high normal Not Available [facility] ([facility]) [address] [place], [address], 03/09/2025 08:10:55 03/08/20 25 03/09/2025 LIPID PANEL HDL cholesterol 40 mg/dL >39 normal Not Available [facility]) [address] [place], [address], 03/09/2025 08:10:55 03/08/20 25 03/09/2025 LIPID PANEL VLDL cholesterol mirella 28 mg/dL 5-40 Not Available [facility] ([facility]) [address] [place], [address], 03/09/2025 08:10:55 03/08/20 25 03/09/2025 LIPID PANEL LDL chol calc ([facility]) 76 mg/dL 0-99 Not Available [facility]) [address] [place], [address], 03/09/2025 08:10:55 03/08/2003/09/2025 LIPID PANEL LDL calc comment: ARC FURNACE OPERATOR Not Available [facility] ([facility]) [address] [facility], [place], [address], 03/09/2025 08:10:55 03/08/20 25 03/09/2025 VITAM IN B12 AND FOLAT E vitamin B12 399 pg/mL 232-12 45 normal Not Available [facility] ([facility]) [address] [facility], [place], [address], 03/09/2025 08:10:56 03/08/2003/09/2025 VITAM IN B12 AND FOLAT E folate (folic acid), serum 5.0 NG/mL >3.0 normal A serum folat e scar ntrat ion of less than 3.1 ng/mL is consi dered to repre sent clini mirella defic iency . Not Available [facility] ([facility]) [address] [facility], [place], [address], 03/09/2025 08:10:56 03/08/2003/09/2025 HEMOG LOBIN A1C hemoglobin A1C 5.7 % 4.8-5. 6 above high normal Predi abete s: 5.7 - 6.4 Diabe sami: >6.4 Glyce mathew contr ol for adult s with diabe sami: <7.0 Not Available [facility] ([facility]) [address] [facility], [place], [address], 03/09/2025 08:10:56 03/08/2003/09/2025 PROST ATE-S PECIF IC [...] of jadyn restrepo se. Not Available [facility] ([facility]) [address] [facility], [place], [address], 03/09/2025 08:10:56 03/08/2003/09/2025 VITAM IN D, 25-HY [...] Evelio amaya [place]: [facility] [employer] . 2. Myah rose [place], Romana laurent [place], Ambrose off-F errar i RODRIGES, et al. Evalu ation , treat ment, and preve ntion of vitam in D defic iency : an Endoc rine Socie ty clini mirella pract ice guide line. JCEM. 2010; 96(7) :1911 -30. Not Available [facility] ([facility]) [address] [facility], [place], [address], 03/09/2025 08:10:57 Result Notes None recorded. Problems Name Problem SNOMED Code Status Onset Date Resolution Date Notes Provider Name and Address Organization Details Recorded Time Generali zed anxiety disorder [id number] Completed 201609/21/2016 Problem Code: F41.1; Problem Code Type: ICD-10; Maya Torres, DIRECTOR OF [employer] [address] [place], [address] , [employer] 3 11:40:35 Allergic rhinitis caused by pollen [id number] Completed 201610/08/2016 Problem Code: J30.1; Problem Code Type: ICD-10; Not Available [facility] 2 21:50:51 Pain in right knee Completed 201608/23/2016 Problem Code: M25.561; Problem Code Type: ICD-10; Not Available [facility] 2 21:50:53 Pain in left knee Completed 201608/23/2016 Problem Code: M25.562; Problem Code Type: ICD-10; Not Available [facility] 2 21:51:03 Knee pain Completed 201608/23/2016 Problem Code: 719.46; Problem Code Type: ICD-9; JUAN ANTONIO mortensen, [employer] 2 11:16:05 Acute sinusiti s 81883222 Completed 201610/05/2016 Problem Code: J01.90; Problem Code Type: ICD-10; JUAN ANTONIO mortensen, [employer] 2 11:16:05 Pain in right knee Completed 201611/04/2016 Problem Code: M25.561; Problem Code Type: ICD-10; Not Available [facility] 2 21:50:53 Prepatel lar bursitis of right knee [id number] 9100 Completed 201612/20/2016 Not Available [facility] 2 21:50:54 Knee pain Completed 201611/04/2016 Problem Code: 719.46; Problem Code Type: ICD-9; JUAN ANTONIO mortensen [employer] 2 11:16:05 Prepatel lar bursitis 75338640 Completed 201612/20/2016 Problem Code: 726.65; Problem Code Type: ICD-9; Not Available [facility] 2 21:51:17 Pain in right knee Completed 201612/13/2016 Problem Code: M25.561; Problem Code Type: ICD-10; Not Available [facility] 2 21:51:02 Knee pain Completed 201612/13/2016 Problem Code: 719.46; Problem Code Type: ICD-9; JUAN ANTONIO mortensen [employer] 2 11:16:05 Allergic rhinitis 67411073 Completed 201603/11/2017 Problem Code: J30.9; Problem Code Type: ICD-10; Not Available [facility] 2 21:50:51 Allergic rhinitis 10277220 Completed 201605/06/2017 Problem Code: J30.9; Problem Code Type: ICD-10; Not Available [facility] 2 21:50:51 Allergic rhinitis caused by pollen 21290376 Completed 201608/02/2017 Problem Code: J30.1; Problem Code Type: ICD-10; Not Available [facility] 2 21:50:51 Hyperten sive disorder 95362634 Completed 201708/30/2017 Problem Code: I10; Problem Code Type: ICD-10; Not Available [facility] 2 21:50:50 Acute sinusiti s 38524389 Completed 201708/12/2017 Problem Code: J01.90; Problem Code Type: ICD-10; JUAN ANTONIO mortensen [employer] 2 11:16:05 Benign essentia l hyperten marquis 7555361 Completed 201701/17/2018 Problem Code: 401.1; Problem Code Type: ICD-9; Not Available [facility] 2 21:51:06 Tinea pedis 5485262 Completed 201711/25/2017 Problem Code: B35.3; Problem Code Type: ICD-10; Not Available [facility] 2 21:50:48 Neck pain 34826230 Completed 201711/25/2017 Not Available [facility] 21:50:53 Hyperest hesia 25615850 Completed 201711/25/2017 Problem Code: R20.3; Problem Code Type: ICD-10; Not Available [facility] 2 21:50:55 Skin sensatio n disturba nce 97495364 Completed 201711/25/2017 Problem Code: 782.0; Problem Code Type: ICD-9; Not Available [facility] 2 21:51:11 Acquired deformit y of toe 31301089 Completed 201701/09/2021 Problem Code: 735.8; Problem Code Type: ICD-9; Not Available [facility] 21:51:11 Onychomy cosis due to dermatop hyte 790907248 Completed 201711/25/2017 Problem Code: 110.1; Problem Code Type: ICD-9; Not Available [facility] 2 21:51:15 Acute sinusiti s 32948378 Completed 201701/31/2018 Problem Code: J01.90; Problem Code Type: ICD-10; JUAN ANTONIO mortensen, [place] [employer] 11:16:05 Non-neop lastic nevus 945265931 Completed 201706/28/2019 Not Available [facility] 21:50:58 Large prostate 452571725 Completed 201703/10/2018 Problem Code: N40.0; Problem Code Type: ICD-10; Not Available [facility] 2 21:51:05 Generali zed atherosc lerosis 65446527 Completed 201701/09/2021 Problem Code: 440.9; Problem Code Type: ICD-9; Not Available [facility] 2 21:51:08 Benign prostati c hyperpla mel 480401849 Completed 201701/09/2021 Problem Code: 600.00; Problem Code Type: ICD-9; Not Available [facility] 2 21:51:09 Lacerati on of finger with foreign body 181764352 Completed 201704/25/2018 Problem Code: S61.222A ; Problem Code Type: ICD-10; Not Available [facility] 21:50:56 Pre-surg marjorie evaluati on Completed 201704/25/2018 Not Available [facility] 21:50:58 Open wound of finger with complica tion 58141974 Completed 201704/25/2018 Problem Code: 883.1; Problem Code Type: ICD-9; Not Available [facility] 21:51:10 Abnormal weight gain 750839399 Completed 201705/09/2018 Problem Code: R63.5; Problem Code Type: ICD-10; Not Available [facility] 21:50:55 Mixed hyperlip idemia 203911143 Completed 201701/09/2021 Problem Code: 272.2; Problem Code Type: ICD-9; Tamar mortensen, [employer] 5 09:56:03 Anemia of chronic disease 504186625 Completed 201706/28/2019 Problem Code: D63.8; Problem Code Type: ICD-10; Not Available [facility] 21:50:49 Prostate specific antigen above referenc e range 271965979 Completed 201705/12/2018 Problem Code: R97.20; Problem Code Type: ICD-10; Not Available [facility] 21:50:56 Iron deficien cy anemia secondar y to inadequa te dietary iron intake 825052826 Completed 201705/27/2018 Problem Code: D50.8; Problem Code Type: ICD-10; Not Available [facility] 21:50:49 Ulcerati ve pancolit is 559614035 Completed 201706/28/2019 Problem Code: K51.00; Problem Code Type: ICD-10; Not Available [facility] 21:50:52 Abscess of limb 759211713 Completed 201705/27/2018 Problem Code: L02.415; Problem Code Type: ICD-10; Not Available [facility] 2 21:51:00 Abscess of leg, except foot 73284116 Completed 201705/27/2018 Not Available [facility] 2 21:51:10 Ulcerati ve colitis 97746606 Completed 201701/09/2021 Problem Code: 556.6; Problem Code Type: ICD-9; Not Available [facility] 2 21:51:16 Anemia due to chronic blood loss 226935311 Active 2017 Problem Code: D50.0; Problem Code Type: ICD-10; Not Available [facility] 21:50:49 Ulcerati ve pancolit is 424005301 Completed 201706/28/2019 Problem Code: K51.00; Problem Code Type: ICD-10; Not Available [facility] 2 21:50:52 Ulcerati ve colitis 87908848 Completed 201701/09/2021 Problem Code: 556.6; Problem Code Type: ICD-9; Not Available [facility] 2 21:51:17 Acute posthemo rrhagic anemia 090494642 Completed 201706/12/2018 Problem Code: D62; Problem Code Type: ICD-10; Not Available [facility] 2 21:50:49 Acute posthemo rrhagic anemia 859093073 Completed 201706/17/2018 Problem Code: D62; Problem Code Type: ICD-10; Not Available [facility] 2 21:50:49 Acute posthemo rrhagic anemia 448279189 Completed 201706/24/2018 Problem Code: D62; Problem Code Type: ICD-10; Not Available [facility] 2 21:50:49 Pain in right knee Completed 201705/01/2018 Problem Code: M25.561; Problem Code Type: ICD-10; Not Available [facility] 2 21:50:53 Pain in left knee Completed 201705/01/2018 Problem Code: M25.562; Problem Code Type: ICD-10; Not Available [facility] [facility] 21:50:54 Knee pain Completed 201705/04/2022 Problem Code: 719.46; Problem Code Type: ICD-9; JUAN ANTONIO BROWNNER [employer], [employer] 2 11:16:05 Acute sinusiti s 10899173 Completed 201707/03/2018 Problem Code: J01.90; Problem Code Type: ICD-10; JUAN ANTONIO BROWNNER [employer], [employer] 2 11:16:05 Acute bronchit is 84514880 Completed 201708/18/2018 Problem Code: J20.9; Problem Code Type: ICD-10; Not Available [facility] 2 21:50:51 Idiopath ic osteoart hritis 299122002 Active 2018 Problem Code: M17.0; Problem Code Type: ICD-10; Not Available [facility] 2 21:51:01 Allergic sensitiz ation 375818716 Completed 201805/04/2022 JUAN ANTONIO mortensen, [employer] 2 11:16:05 Mixed hyperlip idemia 034121442 Active 2018 Problem Code: E78.2; Problem Code Type: ICD-10; Tamar Durham [employer], [employer] 5 09:56:03 Large prostate 930827633 Active 2018 Problem Code: N40.0; Problem Code Type: ICD-10; Not Available [facility] 2 21:50:54 Dysthymi a 81337276 Active 2018 Problem Code: R53.81; Problem Code Type: ICD-10; Not Available [facility] 2 21:51:11 Primary insomnia 3702759 Active 2018 Problem Code: F51.01; Problem Code Type: ICD-10; Not Available [facility] 2 21:50:50 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 57827333 Active 2018 Problem Code: M50.00; Problem Code Type: ICD-10; Not Available [facility] 21:50:54 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 Active 2018 Problem Code: G90.09; Problem Code Type: ICD-10; Not Available [facility] 21:50:50 Pain in left knee Active 2018 Problem Code: M25.562; Problem Code Type: ICD-10; Not Available [facility] 2 21:50:53 Post-mahesh gical wound care Completed 201805/04/2022 Problem Code: Z48.02; Problem Code Type: ICD-10; JUAN ANTONIO mortensen [employer] 11:16:05 Body mass index 30+ - obesity 912410100 Active 2018 Problem Code: Z68.35; Problem Code Type: ICD-10; Not Available [facility] 21:50:59 Diabetes mellitus screenin g Completed 201805/04/2022 Problem Code: Z13.1; Problem Code Type: ICD-10; JUAN ANTONIO mortensen [employer] 11:16:05 Body mass index 30+ - obesity 644375288 Completed 201807/17/2020 Problem Code: Z68.35; Problem Code Type: ICD-10; Not Available [facility] 2 21:51:01 [facility] 90529882 Completed 201812/14/2019 Problem Code: J98.11; Problem Code Type: ICD-10; Not Available [facility] 21:50:52 General examinat ion of patient Completed 201806/28/2019 JUAN ANTONIO mortensen [employer] 2 11:16:05 Body mass index 30+ - obesity 975508985 Completed 201807/17/2020 Problem Code: Z68.35; Problem Code Type: ICD-10; Not Available [facility] 21:51:01 Body mass index 30+ - obesity 686309636 Completed 201807/17/2020 Problem Code: Z68.35; Problem Code Type: ICD-10; Not Available [facility] 2 21:51:00 Body mass index 30+ - obesity 708860127 Completed 201907/17/2020 Problem Code: Z68.36; Problem Code Type: ICD-10; Not Available [facility] 2 21:51:13 Disorder of skin and/or subcutan eous tissue 23181859 Completed 201905/04/2022 JUAN ANTONIO mortensen, [employer] 11:16:05 Body mass index 30+ - obesity 591818909 Completed 201907/17/2020 Problem Code: Z68.36; Problem Code Type: ICD-10; Not Available [facility] 2 21:51:00 General examinat ion of patient Completed 201905/04/2022 JUAN ANTONIO ARELLANO [employer] 2 11:16:05 General examinat ion of patient Completed 202009/15/2020 JUAN ANTONIO EILEEN [employer] 11:16:05 Body mass index 30+ - obesity 841674080 Completed 202009/15/2020 Problem Code: Z68.36; Problem Code Type: ICD-10; Not Available [facility] 2 21:51:14 Cough 48147711 Completed 202004/02/2021 Problem Code: R05; Problem Code Type: ICD-10; Not Available [facility] 21:50:54 Acute sinusiti s 31393053 Completed 202005/04/2022 Problem Code: J01; Problem Code Type: ICD-10; JUAN ANTONIO mortensen, [employer] 2 11:16:05 Eruption 823452805 Completed 202005/04/2022 Problem Code: R21; Problem Code Type: ICD-10; JUAN ANTONIO mortensen, [employer] 2 11:16:05 Contusio n of anterior abdomina l wall 127447761 Completed 202005/04/2022 JUAN ANTONIO mortensen, [employer] 2 11:16:05 Malignan t neoplasm of skin 787992019 Completed 202004/02/2021 Problem Code: C44.90; Problem Code Type: ICD-10; Not Available [facility] 2 21:50:49 Allergic rhinitis 25129576 Active 2020 Problem Code: J30.9; Problem Code Type: ICD-10; Not Available [facility] 21:50:52 Abrasion of skin of palm of hand 736360691 Completed 202109/24/2021 Not Available [facility] 21:50:56 Current drug user 507381935 Active 2021 Problem Code: Z79.899; Problem Code Type: ICD-10; Not Available [facility] 2 21:51:02 Acute frontal sinusiti s 39378815 Completed 202105/04/2022 Problem Code: J01.1; Problem Code Type: ICD-10; JUAN ANTONIO mortensen, [employer] 2 11:16:06 Generali zed anxiety disorder 04621560 Active 2022 Problem Code: F41.1; Problem Code Type: ICD-10; Maya Torres APRN [address] [place] [address], [address] , [employer] 3 11:40:35 Problem Notes None recorded. Procedures Surgical History Date Name Laterality Status Provider Name and Address Organization Details Recorded Time 7 hernia repair completed Not Available [facility] 03/23/2022 22:56:15 Imaging Results None recorded. Procedure [...] Updated DateTime 5 175.26 cm 37.7 kg/m2 033865. 05 g 87 /min 94 % 192/72 mm[Hg] 158/78 mm[Hg] 132/76 mm[Hg] Tamar Durham [facility] [employer] 5 11:32:00 Date Recorded Body height Body mass index (BMI) Body weight Heart rate Oxygen saturation Systolic And Diastolic Provider Name and Address Organization Details Last Updated DateTime 5 175.26 cm 38.3 kg/m2 293046. 82 g 96 /min 92 % 130/80 mm[Hg] Tamar Durham [employer] 5 13:49:03 Date Recorded Body height Body mass index (BMI) Body weight Heart rate Oxygen saturation Systolic And Diastolic Provider Name and Address Organization Details Last Updated DateTime 5 175.26 cm 36.9 kg/m2 715874. 09 g 101 /min 92 % 130/79 mm[Hg] Tamar Durham [employer] 5 10:51:45 Date Recorded Body height Body mass index (BMI) Body weight Body temperature Heart rate Oxygen saturation Systolic And Diastolic Provider Name and Address Organization Details Last Updated DateTime 5 175.26 cm 36.9 kg/m2 869979. 09 g 97.3 [degF] 71 /min 90 % 138/81 mm[Hg] Tamar [employer] 5 08:44:21 Date Recorded Body height Body mass index (BMI) Body weight Heart rate Oxygen saturation Systolic And Diastolic Provider Name and Address Organization Details Last Updated DateTime 5 175.26 cm 36.8 kg/m2 964853. 5 g 83 /min 91 % 134/85 mm[Hg] Tamar [employer] 5 10:47:28 Social History Question Answer Notes LastModified by Organizat ion Details LastModified Time Tobacco Smoking Status Former Smoker JUAN ANTONIO mortensen [employer] 05/04/2022 11:17:53 Do You Have An Advance Directive? No [email or web address] Information n ot available 06/04/2022 Are You Blind Or Do You Have Difficulty Seeing? No Information n ot available 05/04/2022 What Is Your Level Of Caffeine Consumption? Moderate Information not available 11/30/2022 Are You A Caregiver? No [email or web address] Information not available 06/04/2022 In The 14 [...] Do You Have Serious Difficulty Hearing? No [email or web address] Information not available 05/04/2022 What Type Of Diet Are You Following? REGULAR Information n ot available 06/04/2022 Have There Been Any Changes To Your Family Or Social Situation? No [email or web address] Information no t available 06/04/2022 When Did You Quit Smoking? 6-10yearssinc elastcigarett e Information not available 06/01/2024 Do You Have A Medical Power Of Traveling Sales Executive? No [email or web address] Information not available 06/04/2022 What Was The Date Of Your Most Recent Tobacco Screening? 05/09/2025 Information not available 05/09/2025 What Is Your Current Pack Years? 20-29packyear s Information not available 05/04/2022 What Is Your Relationship Status? [email or web address] Information not available 05/04/2022 Do You Use Your Seat Belt Or Car Seat Routinely? Yes [email or web address] Information not available 06/04/2022 Do You Have Smoke And Carbon Monoxide Detectors In Your Home? Yes [email or web address] Information not available 06/04/2022 How Much Tobacco Do You Smoke? 1 PPD Information not available 06/01/2024 Do You Use Sunscreen Routinely? No [email or web address] Information not available 06/04/2022 Have You Recently Traveled Abroad? No [email or web address] Information not available 06/04/2022 Do You Have Difficulty Walking Or Climbing Stairs? No [email or web address] Information not available 05/04/2022 Are You Currently In School? No [email or web address] Information not available 06/04/2022 Do You Have Any Dietary Restrictions? No Information not available 06/04/2022 Sex: Male Functional Status Question Answer Note LastModified by Organizat ion Details LastModified Time Do you use any illicit or recreational drugs? No Information not available 11/30/2022 What is your level of alcohol consumption? None [email or web address] Information not available 05/04/2022 Are you currently employed? No Information not available 06/04/2022 Do you have transportation difficulties? No [email or web address] Information not available 05/04/2022 Are you able to walk independently without assistance or assistive devices? [email or web address] Information not available 05/04/2022 Do you have difficulty doing errands alone? No [email or web address] Information not available 05/04/2022 Are you able to care for yourself independently? Yes Information not available 05/04/2022 Do you have difficulty dressing, bathing, grooming, or toileting? No [email or web address] Information not available 05/04/2022 What is your exercise level? None [email or web address] Information not available 06/04/2022 Mental Status Question Answer Note LastModified by Organization D etails LastModified Time Do you have difficulty concentrating, remembering or making decisions? No [email or web address] Information no t available 05/04/2022 Family History Relationship Description Onset Age of this Age Resolved Age Notes LastModified by Organization Details LastModified Time Unspecified Relation Family history of Hypertension [email or web address] Not available 11:16:26 Unspecified Relation Family history of malignant neoplasm [email or web address] Not available 05/04 11:16:34 Unspecified Relation Family history of polyp of colon [email or web address] Not available 05/04 11:16:39 Medical History Condition Response Allergies (Food, seasonal, environmental ) Y Hypertension Y GI Problems Y Immunizations Vaccine Type Date Status Note Provider Name and Address Organization Details Recorded Time zoster recombinant 024 cancelled patient objection Maya Torres APRN [address] [place], [address], [employer] 10/03/2023 13:15:21 pneumococcal polysaccharide PPV23 019 completed Tamar mortensen [employer] 05/09/2025 10:23:09 Pneumococcal conjugate PCV 13 018 completed Tamar Durham null, [employer] 05/09/2025 10:23:09 COVID-19, mRNA, LNP-S, PF, 100 mcg/0.5mL dose or 50 mcg/0.25mL dose 021 completed Tamar Durham null, [employer] 05/09/2025 10:23:09 COVID-19, mRNA, LNP-S, PF, 100 mcg/0.5mL dose or 50 mcg/0.25mL dose 021 completed Tamar Durham null, [employer] 05/09/2025 10:23:09 COVID-19, mRNA, LNP-S, PF, 100 mcg/0.5mL dose or 50 mcg/0.25mL dose 021 completed Tamar Durham null, [employer] 05/09/2025 10:23:09 Influenza, high-dose, trivalent, PF 019 completed JUAN ANTONIO ARELLANO null, [employer] 07/02/2022 11:24:10 Influenza, split virus, trivalent, PF 017 completed JUAN ANTONIO ARELLANO null, [employer] 07/02/2022 11:24:10 Influenza, MDCK, quadrivalent, PF 016 completed JUAN ANTONIO ARELLANO null, [employer] 07/02/2022 11:24:10 Tdap 016 completed JUAN ANTONIO ARELLANO null, [employer] 07/02/2022 11:24:10 Influenza, high-dose, trivalent, PF 018 completed JUAN ANTONIO ARELLANO null, [employer] 07/02/2022 11:24:10 COVID-19, mRNA, LNP-S, bivalent, PF, 50 mcg/0.5 mL or 25mcg/0.25 mL dose 022 completed JUAN ANTONIO mortensen, [employer] 07/02/2022 11:24:10 Influenza, high-dose, quadrivalent, PF 022 completed JUAN ANTONIO mortensen, [employer] 07/02/2022 11:24:10 Influenza, high-dose, quadrivalent, PF 021 completed JUAN ANTONIO mortensen [employer] 07/02/2022 11:24:10 RSV, recombinant, protein subunit RSVpreF, adjuvant reconstituted, 0.5 mL, PF 023 completed Not Available [facility] 05/09/2025 10:21:48 Influenza, high-dose, quadrivalent, PF 023 completed Not Available [facility] 05/09/2025 10:21:48 Influenza, high-dose, trivalent, PF 024 completed Not Available [facility] 05/09/2025 10:21:48 Pneumococcal conjugate PCV20, polysaccharide LWP328 conjugate, adjuvant, PF 025 completed Not Available [facility] 05/09/2025 10:21:48 Influenza, high-dose, trivalent, PF 025 completed Not Available [facility] 05/09/2025 10:21:48 Influenza, high-dose, quadrivalent, PF 020 completed Tamar mortensen, [place] [employer] 05/09/2025 10:23:09 Past Encounters Encounter ID Performer Location Encounter Start Date Encounter Closed Date Diagnosis/Indication Diagnosis SNOMED-CT Code Diagnosis ICD10 Code Diagnosis IMO Codes Diagnosis Note [id number] Maya Torres [address] [address] 05/04/2022 11:06:44 05/04/2022 11:36:23 Dysthymia 63528098 R53.81 Idiopathic peripheral autonomic neuropathy 37512872 G90.09 [id number] Maya Torres [address] [address] 06/04/2022 10:50:55 06/04/2022 11:05:53 Idiopathic peripheral autonomic neuropathy 53264142 G90.09 Anxiety 77072517 F41.9 Allergic rhinitis 121244 04 J30.9 Body mass index 30+ - obesity 683464838 Z68.38 Acute sinusitis 14922045 J01.90 Dysthymia 63212218 R53.8 1 [id number] [place] [address] 07/02/2022 11:05:52 07/02/2022 11:41:18 Idiopathic peripheral autonomic neuropathy 36286379 G90.09 Mixed hyperlipidemia 267 088011 E78.2 Anxiety 81037297 F41.9 Body mass index 30+ - obesity 752759973 Z68.38 [id number] [place] [address] 07/15/2022 10:31:53 07/15/2022 13:11:18 Acute upper respiratory infection 87945928 J06.9 [id number] [place] [address] 08/02/2022 11:24:44 08/02/2022 11:46:36 Anxiety 97118073 F41.9 Allergic rhinitis 182465 04 J30.9 Idiopathic peripheral autonomic neuropathy 49597746 G90.09 Body mass index 30+ - obesity 098102310 Z68.38 [id number] [place] [address] 09/02/2022 11:07:10 09/02/2022 11:51:01 Dysthymia 71071806 R53.81 Anxiety 75414308 F41.9 Idiopathic peripheral autonomic neuropathy 25970876 G90.09 Body mass index 30+ - obesity 148488085 Z68.38 [id number] Maya Torres [place] [address] 0 10/01/2022 11:06:15 10/01/2022 11:37:36 Idiopathic peripheral autonomic neuropathy 38738570 G90.09 Anxiety 84486956 F41.9 Acute sinusitis 33287974 J01.90 [id number] [place] [address] 11/01/2022 10:18:50 11/01/2022 10:51:54 Cough 24382834 R05.9 Wheezing 48206638 R06.2 Idiopathic peripheral autonomic neuropathy 90336360 G90.09 Anxiety 91672003 F41.9 Body mass index 30+ - obesity 093726672 Z68.38 [id number] Maya Torres [address] 0 11/30/2022 10:11:55 11/30/2022 10:33:30 Gastroesophageal reflux disease without esophagitis 648268184 K21.9 Anxiety 62499701 F41.9 Idiopathic peripheral autonomic neuropathy 29145751 G90.09 Allergic rhinitis 685189 04 J30.9 [id number] Maya Torres [place] [address] 0 12/31/2022 10:19:21 12/31/2022 11:25:07 Fatigue 83908529 R53.83 Mixed hyperlipidemia 267 665983 E78.2 Nocturia 910552605 R35.1 Long-term drug therapy 095265973 Z79.899 Idiopathic peripheral autonomic neuropathy 35517900 G90.09 Anxiety 30931166 F41.9 Body mass index 30+ - obesity 642399090 Z68.38 [id number] [place] [address] 01/31/2023 10:35:26 01/31/2023 11:13:41 Idiopathic peripheral autonomic neuropathy 50028475 G90.09 Anxiety 60115224 F41.9 [id number] [place] [address] 03/03/2023 10:21:47 03/03/2023 10:54:56 Idiopathic peripheral autonomic neuropathy 51074514 G90.09 Anxiety 82448786 F41.9 Body mass index 30+ - obesity 483982105 Z68.38 [id number] [place] [address] 04/04/2023 11:25:04 04/04/2023 11:54:55 Allergic rhinitis 54901411 J30.9 Anxiety 09338940 F41.9 Idiopathic peripheral autonomic neuropathy 93994668 G90.09 Body mass index 30+ - obesity 004802880 Z68.38 [id number] [place] [address] 06/03/2023 10:34:54 06/03/2023 11:28:21 Dyspnea on exertion 95413409 R06.09 Essential hypertension 18772459 I10 Mixed hyperlipidemia 267 245101 E78.2 Idiopathic peripheral autonomic neuropathy 22890294 G90.09 Generalize d anxiety disorder 19307455 F41.1 Body mass index 30+ - obesity 205392253 Z68.38 [id number] [place] [address] 08/04/2023 10:38:40 08/04/2023 11:02:33 Dyspnea on exertion 88467692 R06.09 Anxiety 38034612 F41.9 Idiopathic peripheral autonomic neuropathy 62720299 G90.09 Body mass index 30+ - obesity 636801302 Z68.38 [id number] [place] [address] 0 10/03/2023 10:34:44 10/03/2023 11:27:11 Long-term drug therapy 705368796 Z79.899 Body mass index 30+ - obesity 484098970 Z68.38 Adult [facility] th examination 833055983 Z00.[address] vaccination declined 0375475352 102 Z28.20 Anxiety 43971315 F41.9 Idiopathic peripheral autonomic neuropathy 74277276 G90.09 Large prostate 708657811 N40.0 Mixed hyperlipidemia 267 691228 E78.2 Fatigue 00926391 R53.83 Chronic cough 41897052 R 05.3 [id number] Maya Torres, DIRECTOR OF [employer] [place] [address] 12/02/2023 10:24:11 12/02/2023 11:04:47 Pain of left hip joint 0241874803 99288 M25.552 Anxiety 16809927 F41.9 Idiopathic peripheral autonomic neuropathy 17969235 G90.09 Body mass index 30+ - obesity 501687733 Z68.38 [id number] [place] [address] 01/31/2024 10:36:29 01/31/2024 11:31:01 Idiopathic peripheral autonomic neuropathy 29999068 G90.09 Anxiety 85549460 F41.9 Pain of le ft hip joint 2637105607 08402 M25.552 Body mass index 30+ - obesity 048975457 Z68.38 [id number] [place] [address] 04/03/2024 10:26:32 04/03/2024 10:52:47 Pain of left hip joint 8198831229 09869 M25.552 Idiopathic peripheral autonomic neuropathy 35686899 G90.09 Generalize d anxiety disorder 19246035 F41.1 Body mass index 30+ - obesity 749744745 Z68.38 [id number] [place] [address] 06/01/2024 13:40:03 06/01/2024 14:09:33 Idiopathic osteoarthritis 224421921 M17.0 Acute sinusitis 96319073 J01.90 Generalize d anxiety disorder 88439685 F41.1 Idiopathic peripheral autonomic neuropathy 66039041 G90.09 Body mass index 30+ - obesity 665028126 Z68.38 [id number] Maya Torres [place] [address] 07/31/2024 10:27:29 07/31/2024 13:01:30 Generalized anxiety disorder 16865574 F41.1 Pneumonia 238029648 J18. 9 Chronic ob structive pulmonary disease 14034567 J44.9 Abdominal pain 86060656 R10.9 Fatigue 29419065 R53.83 Hyperlipidemia 66202070 E78.5 Hyperglycemia 67829514 R 73.9 Vitamin D deficiency 347 21491 E55.9 Vitamin B deficiency 479 82174 E53.9 Nocturia 042804108 R35.1 Iron defic iency anemia 16023823 D50.9 Body mass index 30+ - obesity 047601310 Z68.38 [id number] [place] [address] 09/27/2024 11:09:36 09/27/2024 11:58:20 Long-term drug therapy 518617828 Z79.899 Gastroesop hageal reflux disease without esophagitis 207853844 K21.9 Generalize d anxiety disorder 16797934 F41.1 Body mass index 30+ - obesity 821606972 Z68.38 [id number] [place] [address] 12/03/2024 13:33:16 12/03/2024 14:18:36 Generalized anxiety disorder 63597208 F41.1 Idiopathic osteoarthritis 253015946 M17.0 Body mass index 30+ - obesity 481564318 Z68.38 220502 [id number] [place] [address] 02/01/2025 10:37:10 02/01/2025 11:13:22 Generalized anxiety disorder 75931309 F41.1 controlled substance agreement and drug screen UTD at this time. Body mass index 30+ - obesity 878466616 Z68.38 825848 Allergic rhinitis 136572 04 J30.9 Dysthymia 04933235 R53.8 1 Large prostate 734786288 N40.0 Chronic ob structive pulmonary disease 16809023 J44.9 Pain of mu ltiple joints 46816045 M25.50 263588 [id number] [place] [address] 03/08/2025 08:21:58 03/08/2025 10:43:55 Acute bacterial sinusitis 21247424 J01.90 B96.89 48138 Fatigue 49285182 R53.83 2400478 Mixed hyperlipidemia 267 362101 E78.2 53318 Hyperglycemia 00439811 R 73.9 68227 Nocturia 682449046 R35.1 07580 Vitamin D deficiency 347 38599 E55.9 41820 Cobalamin deficiency 190 937735 E53.8 93777 History an d physical examination, annual for health maintenance 82242987 Z00.00 5761610430 Body mass index 30+ - obesity 614390696 Z68.36 103746 [id number] [place] [id number] 05/09/2025 10:20:23 05/09/2025 11:27:11 Generalized anxiety disorder 14609147 F41.1 controlled substance agreement and drug screen UTD at this time. Essential hypertension 06632173 I10 Gastroesop hageal reflux disease without esophagitis 231718890 K21.9 Allergic rhinitis 666084 04 J30.9 Body mass index 30+ - obesity 828281544 Z68.36 006935 Health Concerns Section Related Observation LastModified by Organization Detai ls LastModified Time None Recorded Concern Status LastModified by Organization Details LastModified Time None Recorded Advance Directives Directive N: Payers Insurance Date Sequence Insurance Name Policy Number Policy Sutherland Covered Member ID Sutherland Member ID Guarantor Name 12/05/2024 [place] - [facility] Stephane Mendieta [id number] Stephane Mendieta 05/06/2025 [place] [employer] [place] [facility] Stephane Mendieta [id number] Stephane Mendieta 05/06/2025 2 [employer] SUPPLEMENTAL - [employer]UR[employer] (MEDICARE SUPPLEMENT) Stephane Mendieta [id number] Stephane Mendieta 05/06/2025 1 [place] Stephane Mendieta [id number] Stephane Mendieta Notes Date Note Type Note Provider Name and Address Organization Details Recorded Time 09/27/2024 text/html 73 year old male presents for chronic disease fu. Denies acute concerns at this time. [facility] pulm gave him samples of trelegy but is unable to afford it monthly. Will give him samples today. States cough has improved. He recently got refill on lorazepam since he forgot to request febs refill. He is to let us know when he need his next refill. pt agrees Maya Torres APRN [address] [place], [address], [employer] 09/27/2024 12:37:03 12/03/2024 text/html pt here today for medication refills. pt states hes doing well on current medication regime and has no new complaints today. pt states that he has recently had more skin cancers removed, and needs another one removed. he is having spinal sx again the first of december to replace a lead. Maya Torres APRN [address] [place], [address], [employer] 12/03/2024 15:29:36 02/01/2025 text/html pt here today [...] he doesnt care. Maya Torres APRN [address] [place], [address], [employer] 02/01/2025 12:22:29 03/08/2025 text/html Annual WellnessReported [...] fluids. return for worsening symptoms. Tamar mortensen, [employer] 03/08/2025 10:12:47 05/09/2025 text/html pt here today for medication refills. pt states hes doing well on current medication regime and has no new complaints today. pt requested more trelegy samples and i gave him 4. Maya Torres, SIMI [address] [place], [address], [facility] [employer] 05/09/2025 18:02:01
--- OUTSIDE RECORDS SUMMARY | 2025-07-13 10:21 | XMS_ITS | Data Portability ---
Author Organization [facility] BROOKS GutierrezS [place] CLOSED Address [address] [place] [address] Care Team Providers Care Retail Loss Prevention Specialist Name Role Phone HERIBERTO PATEL Orthopedic Surgeon SHARMIN WHITAKER Primary Care Provider [phone] Assessment No assessment recorded. Plan of Treatment Reminders Order Date Submit Date Provider Last Modified By Organization Details Last Modified Time Details Appointments DERM ESTABLISH ED 2025 10:30A Nancy GONZALEZ MD Not available Not available Not available Lab surgical pathology study - Excision: Biopsy proven BCC check for clear margins 2024 05 025 [facility], [address] [place] [address], [phone], 11/22/2024 12:08:26 Referral None recorded. Procedures None recorded. Surgeries None recorded. Imaging None recorded. Medication Orders None recorded. Patient TargetsNo targets recorded. Patient InstructionsNo instructions recorded. Reason for Referral None Reported. Results Created Date Observation Date Name Description Value Unit Range Abnormal Flag Note LastModifiedBy Organization Detail LastModifiedTime 10/30/19 25 10/29/2024 SURGI MIRELLA surgical SEE BELOW abnormal Booker topat holog y Repor t NAME: ISATU [...] Out Date: 10/31 10:38 1 Not Available [facility] [address], [place], [address], 10/31/2024 10:39:11 11/21/19 25 11/20/2024 SURGI MIRELLA surgical SEE BELOW abnormal Booker topat holog y Repor t NAME: LANCE [...] Out Date: 11/22 12:08 1 Not Available [facility] [address] [place] [address], [phone], 11/22/2024 12:08:26 Result Notes None recorded. Problems No Known Problems Procedures Surgical History Date Name Laterality Status Provider Name and Address Organization Details Recorded Time 12/12/19 25 Suture/Staple removal completed Henny Seabrook [facility] 12/11/2024 07:41:19 11/21/19 25 DAK - Lesion Excision, [place]; trunk,arms,legs completed NUVIA SIDDIQUI JR, MD [address] [place] [address], [phone], [facility] 11/20/2024 14:00:58 10/30/19 25 DAK - Biopsy, Tangential completed Janna Zhou [facility] 10/29/2024 10:31:00 12/26/19 24 Biopsy Skin Lesion; Tangential completed Kelsey RAMEY - [facility] 12/26/2023 11:19:57 12/26/19 24 Destruction Premalignant Lesion(s) completed Kelsey RAMEY - [facility] 12/26/2023 11:19:17 06/23/20 23 Biopsy Skin Lesion; Tangential completed Kelsey RAMEY - [facility] 06/23/2023 11:49:07 06/23/20 23 Destruction Premalignant Lesion(s) completed Kelseytiny RAMEY - [facility] 06/23/2023 11:45:10 03/24/20 18 Stress Test - Echo Dobutamine completed GILDA LAGUNAS MD [address] [place], [address], [facility] 03/24/2018 12:52:45 03/24/20 18 Echocardiogram - Dobutamine Stress Test completed GILDA LAGUNAS MD [address] [place], [address] [place] [address] 03/24/2018 12:42:39 Hernia Repair completed Jazmin Short [facility] 02/14/2018 10:09:44 Other completed Jazmin Short [place] [facility] 02/14/2018 10:10:04 Other completed Jazmin Short [place] [facility] 02/14/2018 10:10:14 Other completed Jazmin Short [place] [facility] 02/14/2018 10:10:30 Other completed Jazmin Short [place] [facility] 02/14/2018 10:10:35 Other completed Jazmin Short [place] [facility] 03/03/2018 10:09:36 Imaging Results [...] Updated DateTime 11/20/2024 131/87 mm[Hg] Henny Tijerina [facility] 11/20/2024 11:58:18 Social History Question Answer Notes LastModified by Organizat ion Details LastModified Time Tobacco Smoking Status [facility]/14/2018 10:08:49 When Did You Quit Smoking? 16+yearssince lastcigarette Information not available 03/03/2018 Live Alone Or With Others? With Others [email or web address] Information not available 03/03/2018 Marital Status [email or web address] Informatio n not available 03/03/2018 What Was The Date Of Your Most Recent Tobacco Screening? 03/03/2018 Information n ot available 09/04/2019 Sex: Male Functional Status Question Answer Note LastModified by Organizat ion Details LastModified Time What is your level of alcohol consumption? None [email or web address] Information not available 02/14/2018 What is your occupation? [employer] [email or web address] Information not available 03/03/2018 Mental Status None recorded. Family History Relationship Description Onset Age of this Age Resolved Age Notes LastModified by Organization Details LastModified Time Unspecified Relation Family history of malignant neoplasm [email or web address] Not available 2017 10:08:14 Unspecified Relation Hypertensive disorder Not available 2017 10:08:34 Unspecified Relation Arthritis [email or web address] Not available 2017 10:08:43 Medical History Condition Response Arthritis Y Basal Cell Carcinoma Y Past Encounters Encounter ID Performer Location Encounter Start Date Encounter Closed Date Diagnosis/Indication Diagnosis SNOMED-CT Code Diagnosis ICD10 Code Diagnosis IMO Codes Diagnosis Note [id number] DEE FERNÁNDEZ MD CARDIOLOG Y [facility] CLOSED [address] [place] [address] 03/03/2018 09:58:12 03/03/2018 11:04:15 Atherosclerosis of arteries of the extremities [id number] I70.209 The patient has normal lower extremity pulses and essentiall y normal CORY. With findings of vascular calcificat ion recommend considerat ion for addition of statins and low-dose aspirin to his regimen. No further testing of his lower extremitie s is indicated at this time. Preoperati ve cardiovascular examination 026757519 Z01.810 The patient requires knee replacemen t. He has no evidence of aortic stenosis, angina or CHF and therefore I would anticipate a low cardiovasc ular risk. In light of the presence of atheroscle rosis, I suggest a preoperati ve dobutamine stress echocardio gram. Results will be forwarded to his orthopedic surgeon once available. [id number] GILDA LAGUNAS MD [facility] CLOSED [address] [facility] [place] [address] 03/24/2018 08:18:43 03/31/2018 15:16:10 Coronary arteriosclerosis in [place] artery [id number] 107 I25.10 [id number] GILDA LAGUNAS MD [facility] [address] [place] [address] 03/24/2018 08:19:09 03/24/2018 13:23:26 Coronary arteriosclerosis 69550518 I25.10 [id number] GIAN Espino, PERSONAL LINES SALES REP DAK [facility] [address] [place] [address] 06/23/2023 10:45:12 06/23/2023 11:56:59 History of malignant neoplasm of skin 618327986 Z85.828 Last skin cancer - 07/2022 - No evidence of recurrence today- Call with any worrisome lesions or if treated lesions return- Return at regular intervals for skin exam as recommende d Multiple b enign melanocytic nevi 369390075 D22.5 - Benign moles seen on exam [...] changing or worrisome lesions Seborrheic keratosis 394 383172 L82.1 - Benign overgrowth s of skin - Hereditary Senile angioma 5394570 I 78.1 - Benign blood vessel growths - Hereditary Solar lentigo 99243472 L 81.4 - Benign brown spots - Sun-induce d Actinic keratosis 424628 007 L57.0 Actinic keratoses are precancero us lesions that may progress to squamous cell carcinoma if untreated. UV light and genetics may increase risk. Treated lesions should blister, scab over, and heal within a few weeks. If treated lesion(s) does not resolve within 1-2 months, patient agrees to follow up for re-evaluat ion. Neoplasm o f uncertain behavior of skin 62297509 D48.5 Recommend blade biopsy. Risks, benefit, and procedure discussed with patient. Consent obtained. [id number] RINKU KELLY MD [address] [address] 08/16/2023 08:26:04 08/19/2023 14:47:05 [id number] GIAN Espino APRN [address] [address] 12/26/2023 10:46:06 12/26/2023 11:27:25 History of malignant neoplasm of skin 225522582 Z85.828 last skin cancer - 06/2023 - No evidence of recurrence today- Call with any worrisome lesions or if treated lesions return- Return at regular intervals for skin exam as recommende d Multiple b enign melanocytic nevi 740774360 D22.5 - Benign moles seen on exam [...] changing or worrisome lesions Seborrheic keratosis 394 523478 L82.1 - Benign overgrowth s of skin - Hereditary Senile angioma 0050014 I 78.1 - Benign blood vessel growths - Hereditary Solar lentigo 76969058 L 81.4 - Benign brown spots - Sun-induce d Neoplasm o f uncertain behavior of skin 79172241 D48.5 Recommend blade biopsy. Risks, benefit, and [...] agrees to follow up for re-evaluat ion. [id number] RINKU KELLY MD [address] [place] [address] 02/14/2024 08:21:31 02/16/2024 14:44:35 [id number] RINKU KELLY MD [address] [address] 03/14/2024 09:34:47 03/22/2024 04:26:11 Postoperative visit [id number] Z09 Scar 404136407 L90.5 History of malignant basal cell neoplasm of skin 827726846 Z85.828 No evidence of recurrence . Discussed risk of recurrence and new skin cancers, so regular self exam and profession al skin checks are recommende d. Sun protection with broad spectrum SPF 30 sunscreen and broad-brim med hat is recommende d. Sun protection with SPF 30 broad spectrum sunscreen and protective gear discussed. [id number] GIAN Espino APRN [address] [place] [address] 10/29/2024 09:42:30 10/29/2024 10:46:53 History of malignant neoplasm of skin 707400377 Z85.828 Most recent skin cancer 12/2023 - No evidence of recurrence today- Call with any worrisome lesions or if treated lesions return- Return at regular intervals for skin exam as recommende d Multiple b enign melanocytic nevi 949579636 D22.5 - Benign moles seen on exam [...] changing or worrisome lesions Seborrheic keratosis 394 476885 L82.1 - Benign overgrowth s of skin - Hereditary Senile angioma 0352356 I 78.1 - Benign blood vessel growths - Hereditary Solar lentigo 35600963 L 81.4 - Benign brown spots - Sun-induce d Neoplasm o f uncertain behavior of skin 36573288 D48.5 Recommend blade biopsy. Risks, benefit, and procedure discussed with patient. Consent obtained. Discussed the biopsy only takes the top layer of the lesion for testing. This does NOT treat the skin cancer if it is one. Advised they would need to return for more treatment given the type and depth of the skin cancer when the results come in. [id number] MD DANNY HINKLE JR [place] [address] [facility] [place] [address] 11/13/2024 09:51:03 11/13/2024 12:10:30 [id number] MD DANNY HINKLE JR [place] [address] [address] [facility] [place] [address] 11/20/2024 11:19:12 11/20/2024 13:33:38 Basal cell carcinoma of upper extremity 123660456 C44.612 [id number] MD DANNY HINKLE JR [place] [address] [place] [address] 11/27/2024 10:53:15 11/27/2024 14:06:05 [id number] NUVIA SIDDIQUI JR, MD [place] [address] [place] [address] 12/04/2024 09:54:33 12/04/2024 11:37:08 [id number] NUVIA SIDDIQUI JR, MD [place] [address] [place] [address] 12/11/2024 09:21:24 12/11/2024 09:46:54 Scar 996825253 L90.5 Wound in appropriat e stages of [...] (MEDICARE SUPPLEMENT) PLAN G Isatu Marta Anam [id number] Isatu Marta Anam 04/26/2025 1 [place] ([place] Isatu Marta Anam [id number] Isatu Mendieta 08/05/2023 2 [employer] Isatu Mendieta [id number] Isatu Mendieta 08/05/2023 1 [place] [id number] Isatu Mendieta [id number] Isatu Mendieta Notes Date Note Type Note Provider Name and Address Organization Details Recorded Time 11/13/2024 text/html ROS as noted in the [facility] Patient presents today for an excision to right posterior base of neck for treatment of BCC. Procedure changed to Mohs procedure. Not Available [employer] 11/19/2024 08:16:02 11/20/2024 text/html ROS as noted in the [facility] Patient presents today for an excision to Right Dorsal Forearm and Right Radial Forearm for treatment of biopsy proven BCC. NUVIA SIDDIQUI JR, MD [address] [place] [address], [phone], [facility] 11/20/2024 14:03:55 12/11/2024 text/html ROS as noted in the HPI Patient present today for fourteen day staple removal following Excision procedure on 11/27/2024 toLeft Midline Temporal Scalp for treatment of BCC. NUVIA SIDDIQUI JR, MD [address] [place] [address], [phone], [facility] 12/11/2024 10:11:03
--- OUTSIDE RECORDS SUMMARY | 2025-07-13 10:21 | XMS_ITS | Encounter Summary ---
Author Organization [employer] ([place], [place], [place], [place], [place]) Address [address] [place] [address] Care Team Providers Care Livestock Laborer Name Role Phone Maya Torres Reji BELCHER Primary Care Provider [phone]- [phone] Encounter Details Date Type Department Care Team (Late st Contact Info) Description 06/16/2018 Transcribed Document [facility] Family Medicine [facility] [place] [address] ProviderJean MD [address] [place], [place] [address] Social History Tobacco Use Types Packs/Day Years Used Date Smoking Tobacco: Never Assessed Sex and Gender Information Value Date Recorded Sex Assigned at Not on file Legal Sex Male 5:19 PM CDT Gender Identity Not on file Sexual Orientation Not on file documented as of this encounter Miscellaneous Notes * Cerner Conversion Note - Jean Sawant MD - 06/16/2018 8:43 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
--- OUTSIDE RECORDS SUMMARY | 2025-07-13 10:21 | XMS_ITS | Encounter Summary ---
Author Organization [employer] ([place], [place], [place], [place], [place]) Address [address] [place] [address] Care Team Providers Care Aerial Installer Name Role Phone Maya Torres Reji BELCHER Primary Care Provider [phone]- [phone] Encounter Details Date Type Department Care Team (Late st Contact Info) Description 10/18/2020 Transcribed Document [facility] [place] [address] [place] [address] ProviderJean MD [address] [place], [place] [address] Social History Tobacco Use Types Packs/Day Years Used Date Smoking Tobacco: Never Assessed Sex and Gender Information Value Date Recorded Sex Assigned at Not on file Legal Sex Male 5:19 PM CDT Gender Identity Not on file Sexual Orientation Not on file documented as of this encounter Miscellaneous Notes * Cerner Conversion Note - Jean ProviderMD - 10/18/2020 7:05 PM CDT [place] Suicide Severity Rating Scale (C-SSRS) Entered On: 10/18/2020 19:42 EDT Performed On: 10/18/2020 19:41 EDT by Dee Ocampo RN [place] Suicide Severity Rating Scale (C-SSRS) CSSRS Past [...] on filedocumented in this encounter Care Teams Aerial Installer Relationship Specialty Start Date End Date Maya Torres, MASS COMMUNICATIONS INSTRUCTOR [address] [address] PCP - General Family Medicine 08/27/22 documented as of this encounter
--- OUTSIDE RECORDS SUMMARY | 2025-07-13 10:21 | XMS_ITS | Encounter Summary ---
Author Organization [employer] ([place], [place], [place], [place], [place]) Address [address] [place] [address] Care Team Providers Care Email Marketing Executive Name Role Phone Maya Torres APRN Primary Care Provider [phone]- [phone] Encounter Details Date Type Department Care Team (Late st Contact Info) Description 10/18/2020 Transcribed Document [facility] [place] [address] [place] [address] ProviderJean MD [address] [place] [address] Social History Tobacco Use Types [...] 10/18/2020 9:20 PM CDT Electronically signed by [facility] Conversion Head Of Measurement & Insights Cerner at 11/04/2022 3:18 PM CDT documented in this encounter Plan of Treatment Not on file documented as of this encounter Visit Diagnoses Not on filedocumented in this encounter Care Teams Email Marketing Executive Relationship Specialty Start Date End Date Maya Torres APRN [address] [facility] [address] [place] [address] PCP - General Family Medicine 08/27/22 documented as of this encounter
--- OUTSIDE RECORDS SUMMARY | 2025-07-13 10:21 | XMS_ITS ---
Author Organization [facility] Address [address] [place] [address] Phone Care Team Providers Care Ingot Stripper Name Role Phone Jose Cruz COLEMAN, Domingo Jett Unavailable [phone] Olga Licea APRN Unavailable [phone] Reason for Referral 11/29/2024 Encounter for Follow Up Date Recorded Target Due Date Referral Type Referring Prov ider Reason For Referral 11/29/2024 Issa Rodriguez MD See PCP for BP Last Documented On 5 3:07PM ; [facility] 11/29/2024 Issa Rodriguez MD referral to physician Last Documented On 5 3:07PM ; [facility] 04/22/2022 Encounter for Follow Up Date Recorded Target Due Date Referral Type Referring Prov ider Reason For Referral 04/22/2022 Issa Rodriguez MD See PCP for BP Last Documented On 2 10:14AM ; [facility] 05/02/2022 Issa Rodriguez MD referral to physician Last Documented On 2 10:49AM ; [facility] 04/12/2022 Encounter for Follow Up Date Recorded Target Due Date Referral Type Referring Prov ider Reason For Referral 04/12/2022 Holden Modi PA-C See PC P for BP Last Documented On 2 9:57AM ; [facility] 04/07/2021 Encounter [...] BP Last Documented On 1 8:43AM ; [facility] Problems Includes: Active, inactive, and resolved Problems All Visits Onset Date Date of Diagnosis Resolved Date Provider Condition Status Soft Tissue Pain Hand 12/05/2024 12/05/2024 Flako Pulido PA-C Active Last Documented On 5 1:43AM ; [facility] History of Lower Back Pain M idline Right Side 04/12/2022 04/12/2022 Holden Modi PA-C Active Last Documented On 5 1:41AM ; [facility] Joint Pain Left Thumb 03/12/2021 03/12/2021 Charles Hernandez MD Active Last Documented On 5 1:40AM ; [facility] Joint Pain in Both Knees 04/05/2019 04/05/2019 [facility] zachary Billingsley MD Active Last Documented On 5 1:39AM ; [facility] Plan of Treatment Findings Encounter Date Patient screened for future fall risk: documentation of any fall with injury in past year Follow Up with Issa Rodriguez MD 06/06/2025 Last Documented On 5 8:58AM ; [facility] Patient screened for future fall risk: documentation of any fall with injury in past year Post Op with Holden Modi PA-C 01/14/2025 Last Documented On 5 10:36AM ; [facility] Patient screened for future fall risk: documentation of any fall with injury in past year Post Op with Holden Modi PA-C 01/07/2025 Last Documented On 5 10:49AM ; [facility] Patient screened for future fall risk: documentation of any fall with injury in past year Post Op with Holden Modi PA-C 12/28/2024 Last Documented On 5 9:50AM ; [facility] Patient screened for future fall risk: documentation of any fall with injury in past year IN HOUSE REFERRAL with Flako Pulido PA-C 12/05/2024 Last Documented On 5 2:27PM ; [facility] Pending Tests Order Diagnosis Results Due Ordering P rovider Radiology - MRI MRI Lumbar Spine 04/26/22 Chas Modi PA-C Last Documented On 2 1:06PM ; [facility] Future Appointments Date Time Location Provi tahira Post Op 07/19/2025 11:00AM [facility] [place] Last Documented On 5 10:29AM ; [facility] Instructions to patient Lose weight Last Documented On 5 8:58AM ; [facility] Lose weight Last Documented On 5 10:36AM ; [facility] Lose weight Last Documented On 5 10:49AM ; [facility] Lose weight Last Documented On 5 9:50AM ; [facility] Lose weight Last Documented On 5 2:27PM ; [facility] Lose weight Last Documented On 5 3:07PM ; [facility] Lose weight Last Documented On 2 10:14AM ; [facility] Lose weight Last Documented On 2 9:57AM ; [facility] Lose weight Last Documented On 1 8:13AM ; [facility] Lose weight Last Documented On 1 8:43AM ; [facility] Instructions for patient SEE PCP FOR BP AND WT Last Documented On 0 11:13AM ; [facility] Instructions for patient Last Documented On 0 3:05PM ; [facility] Instructions for patient Last Documented On 0 1:32PM ; [facility] Instructions for [...] 12/28/2024 Last Documented On 5 9:50AM ; [facility] Overweight IN [...] WT Last Documented On 0 11:13AM ; [facility] Instructions for patient Last Documented On 0 3:05PM ; [facility] Instructions for patient Last Documented On 0 1:32PM ; [facility] Instructions for patient to see pcp for bp Last Documented On 0 1:48PM ; [facility] Instructions for patient to see pcp for bp Last Documented On 9 3:13PM ; [facility] Instructions for patient to see pcp for bp Last Documented On 9 2:58PM ; [facility] Instructions for patient to see pcp for bp Last Documented On 9 9:14AM ; [facility] Medical Equipment - Implanted Devices Includes: Current and historical Devices No Medical Equipment Recorded Medications Includes: Current and historical Medications Current Medications (continue as prescribed) Percocet 5-325 MG Oral Tablet 07/03/2025 - 07/18/2025 Provider: Issa Rodriguez MD Diagnosis: 1 po q 4h prn pain Last Documented On 5 8:39AM By Issa Rodriguez ; [facility] Clindamycin HCl 300 MG Oral Capsule 01/07/2025 Provi tahira: Holden Modi PA-C Diagnosis: Last Documented On 5 10:36AM By Quentin Burk ; [facility] oxyCODONE-Acetaminophen 5-325 MG Oral Tablet 5 Provider: Issa Rodriguez MD Diagnosis: Last Documented On 5 9:50AM By Quentin Burk ; [facility] Pantoprazole Sodium 40 MG Or al Tablet Delayed Release 12/09/2024 Provider: Maya Torres DRIVER MATERIAL HANDLER Diagnosis: Last Documented On 5 9:50AM By Quentin Burk ; [facility] LORazepam 1 MG Oral Tablet 12/04/2024 Provider: Nancy Torres DRIVER MATERIAL HANDLER Diagnosis: Last Documented On 5 9:50AM By Quentin Burk ; [facility] Doxycycline Hyclate 100 MG Oral Capsule 12/04/2024 Papito mccallum: Diagnosis: Last Documented On 5 9:50AM By Quentin Burk ; [facility] sulfaSALAzine 500 MG Oral Tablet 11/27/2024 Provider : Maya Torres DRIVER MATERIAL HANDLER Diagnosis: Last Documented On 5 9:50AM By Quentin Bukr ; [facility] Albuterol Sulfate HFA 108 (9 0 Base) MCG/ACT Inhalation Aerosol Solution 11/07/2024 Provider: Maya anderson DRIVER MATERIAL HANDLER Diagnosis: Last Documented On 5 9:50AM By Quentin Burk ; [facility] Finasteride 5 MG Oral Tablet 11/03/2024 Provider: Maya Torres DRIVER MATERIAL HANDLER Diagnosis: Last Documented On 5 9:50AM By Quentin Burk ; [facility] Tamsulosin HCl 0.4 MG Oral Capsule 11/03/2024 Provid er: Maya Torres DRIVER MATERIAL HANDLER Diagnosis: Last Documented On 5 3:49PM By Marifer Nuñez ; [facility] Amoxicillin 875 MG Oral Tablet 09/11/2024 Provider: Diagnosis: Last Documented On 5 9:50AM By Quentin Burk ; [facility] predniSONE 10 MG Oral Tablet 03/11/2021 Provider: Jarek Muñiz DO Diagnosis: Last Documented On 8:34AM By Deborah Lowery ; [facility] Amoxicillin 500 MG Oral Capsule 03/11/2021 Provider: Jarek Muñiz DO Diagnosis: Last Documented On 8:34AM By Deborah Lowery ; [facility] Cephalexin 500 MG Oral Capsule 03/10/2021 Provider: Diagnosis: Last Documented On 8:34AM By Deborah Lowery ; [facility] HYDROcodone-Acetaminophen 5-325 MG Oral Tablet Provider: Diagnosis: Last Documented On 8:34AM By Deborah Lowery ; [facility] Gabapentin 300 MG Oral Capsule 03/06/2021 Provider: Diagnosis: Last Documented On 8:34AM By Deborah Lowery ; [facility] LORazepam 1 MG Oral Tablet 03/06/2021 Provider: Diagnosis: Last Documented On 1 8:34AM By Deborah Lowery ; [facility] Esomeprazole Magnesium 40 MG Oral Capsule Delayed Rele ase 03/04/2021 Provider: Diagnosis: Last Documented On 8:34AM By Deborah Lowery ; [facility] Esomeprazole Magnesium 40 MG Oral Capsule Delayed Rele ase 03/04/2021 Provider: Diagnosis: Last Documented On 1 8:34AM By Deborah Lowery ; [facility] Fluticasone Propionate 50 MCG/ACT Nasal Suspension Provider: Diagnosis: Last Documented On 8:35AM By Deborah Lowery ; [facility] Past Medications on file Clindamycin HCl 300 MG Oral Capsule 01/07/2025 - 01/09/2025 Provider: Holden Steiner Diagnosis: take 2 pills, 3 three times a day Last Documented On 5 11:06AM By Quentin Burk ; [facility] Clindamycin HCl 300 MG Oral Capsule 12/28/2024 - 01/08/2025 Provider: Holden Steiner Diagnosis: three times a day Last Documented On 5 10:10AM By Quentin Burk ; [facility] Percocet 5-325 MG Oral Tablet 12/19/2024 - 01/03/2025 Provider: Issa Rodriguez MD Diagnosis: 1 po q 4h prn pain Last Documented On 5 8:40AM By Issa Rodriguez ; [facility] Losartan Potassium 100 MG Oral Tablet 12/05/2024 - Provider: Diagnosis: Last Documented On 5 3:50PM By Marifer Nuñez ; [facility] DULoxetine HCl 60 MG Oral Ca psule Delayed Release Particles 12/05/2024 - 03/05/2025 Provider: Diagnosis: Last Documented On 5 3:49PM By Marifer Nuñez ; [facility] Montelukast Sodium 10 MG Oral Tablet 12/05/2024 - 02/15 Provider: Diagnosis: Last Documented On 5 3:49PM By Marifer Nuñez ; [facility] Losartan Potassium 100 MG Oral Tablet 03/03/2021 - Provider: Diagnosis: Last Documented On 5 3:50PM By Marifer Nuñez ; [facility] Montelukast Sodium 10 MG Oral Tablet 02/16/2021 - 11/16 Provider: Diagnosis: Last Documented On 5 3:49PM By Marifer Nuñez ; [facility] DULoxetine HCl 60 MG Oral Ca psule Delayed Release Particles 02/16/2021 - 12/05/2024 Provider: Diagnosis: Last Documented On 5 3:49PM By Marifer Nuñez ; [facility] Percocet 5-325 MG OR TABS 10/05/2019 - 03/12/2021 Prov ider: Issa Rodriguez MD Diagnosis: prn pain Last Documented On 1 8:36AM By Deborah Lowery ; [facility] Dilaudid 2 MG Oral Tablet 05/02/2019 - 03/12/2021 Provider: Domingo tan MD Diagnosis: 1-2 po q6h prn pain (RESCUE PAIN) DO NOT FILL TILL 05/04/2019 FOR SURGERY Last Documented On 1 8:36AM By Deborah Lowery ; [facility] Neurontin 300 MG Oral Capsule 05/02/2019 - 03/12/2021 Provider: Domingo tan MD Diagnosis: 1 every bedtime DO NOT SELVIN L TILL 05/04/2019 FOR SURGERY Last Documented On 1 8:36AM By Deborah Lowery ; [facility] traMADol HCl 50 MG Oral Tablet 05/02/2019 - 03/12/2021 Provider: Domingo tan MD Diagnosis: 1-2 po q6h prn pain DO NOT FILL TILL 05/04/2019 FOR SURGERY Last Documented On 1 8:35AM By Deborah Lowery ; [facility] oxyCODONE HCl 5 MG Oral Tablet 05/02/2019 - 03/12/2021 Provider: Domingo tan MD Diagnosis: 1-2 po q6h prn pain DO NOT FILL TILL 05/04/2019 FOR SURGERY Last Documented On 1 8:36AM By Deborah Lowery ; [facility] Zofran 4 MG Oral Tablet 05/02/2019 - 03/12/2021 Provid er: Domingo Billingsley MD Diagnosis: [id number] DO NOT FILL TILL 05/04/2019 FOR SURGERY Last Documented On 1 8:35AM By Deborah Lowery ; [facility] Keflex 500 MG Oral Capsule 05/02/2019 - 03/12/2021 Provider: Domingo tan MD Diagnosis: 1 every 6 hours DO NOT SELVIN L TILL 05/04/2019 FOR SURGERY Last Documented On 1 8:36AM By Deborah Lowery ; [facility] Acetaminophen 500 MG Oral Tablet 05/02/2019 - 03/12/2021 Provider: Domingo Billingsley MD Diagnosis: 2 three times a day DO NOT FILL TILL 05/04/2019 FOR SURGERY Last Documented On 1 8:36AM By Deborah Lowery ; [facility] Colace 100 MG Oral Capsule 05/02/2019 - 03/12/2021 Provider: Domingo tan MD Diagnosis: 1-2 tabs daily DO NOT FILL TILL 05/04/2019 FOR SURGERY Last Documented On 1 8:36AM By Deborah Lowery ; [facility] Mobic 15 MG Oral Tablet 05/02/2019 - 03/12/2021 Provid er: Domingo Billingsley MD Diagnosis: once a day DO NOT FILL TIL L 05/04/2019 FOR SURGERY Last Documented On 1 8:36AM By Deborah Lowery ; [facility] Mupirocin 2% External Ointment 04/09/2019 - 03/12/2021 Provider: Domingo tan MD Diagnosis: Apply to nostrils 3 times a day 5 days prior to surgery. Last Documented On 1 8:35AM By Deborah Lowery ; [facility] Gabapentin 300MG Oral Capsule 04/05/2019 - 03/12/2021 Provider: Diagnosis: Last Documented On 1 8:35AM By Deborah Lowery ; [facility] HM Loratadine 10MG Oral Tablet 04/05/2019 - 03/12/2021 Provider: Diagnosis: Last Documented On 1 8:35AM By Deborah Lowery ; [facility] sulfaSALAzine 500MG Oral Tablet 03/24/2019 - Provider: Olga Licea DRIVER MATERIAL HANDLER Diagnosis: Last Documented On 1 8:35AM By Deborah Lowery ; [facility] Losartan Potassium 100MG Ora l Tablet 03/05/2019 - 03/12/2021 Provider: Olga Lozano PRN Diagnosis: Last Documented On 8:35AM By Deborah Lowery ; [facility] Montelukast Sodium 10MG Oral Tablet 03/04/2019 - 03/12/2021 Provider: Olga Lozano PRN Diagnosis: Last Documented On 8:35AM By Deborah Lowery ; [facility] Tamsulosin HCl 0.4MG Oral Capsule 03/04/2019 - 03/12/2021 Provider: Olga Lozano PRN Diagnosis: Last Documented On 8:35AM By Deborah Lowery ; [facility] LORazepam 1MG Oral Tablet 02/22/2019 - 03/12/2021 Prov ider: Olga Licea DRIVER MATERIAL HANDLER Diagnosis: Last Documented On 8:35AM By Deborah Lowery ; [facility] DULoxetine HCl 60MG Oral Capsule Delayed Release Particles 02/09/2019 - 03/12/2021 Provider: Olga Lozano PRN Diagnosis: Last Documented On 1 8:35AM By Deborah Lowery ; [facility] Finasteride 5MG Oral Tablet 01/21/2019 - 03/12/2021 Pr ovider: Olga Licea DRIVER MATERIAL HANDLER Diagnosis: Last Documented On 1 8:35AM By Deborah Lowery ; [facility] traZODone HCl 150MG Oral Tablet 01/21/2019 - Provider: Olga Licea DRIVER MATERIAL HANDLER Diagnosis: Last Documented On 8:35AM By Deborah Lowery ; [facility] Omeprazole 20MG Oral Tablet Delayed Release 12/07/2018 - 03/12/2021 Provider: ANDREA Abbott II, MD Diagnosis: Last Documented On 8:35AM By Deborah Lowery ; [facility] Medications Administered Includes: Administered Medications in patient's chart No Administered Medications Recorded Vital Signs Includes: Vital Signs from 07/13/2024 through 07/13/2025 Vital Name 06/06/2025 09:02A 01/14/2025 10:36A 01/07/2025 [...] Documented: On 12/05/2024 3:51PM ; [facility] On 11/29/2024 3:22PM ; [facility] Results Includes: Results from 07/13/2024 through 07/13/2025 No Results Recorded For Specified Dates Social History Description Last Updated Tobacco non-user 04/22/2022 Last Documented On 2 10:50AM ; [facility] No recent change in diet 04/22/2022 Last Documented On 2 10:50AM ; [facility] Not a current smoker. 04/22/2022 Last Documented On 2 10:50AM ; [facility] Non-smoker 03/12/2021 Last Documented On 1 8:44AM ; [facility] No tobacco use 04/05/2019 Last Documented On 9 10:53AM ; [facility] Smoking status : Never smoker 04/05/2019 Last Documented On 9 10:53AM ; [facility] Caffeine use 04/05/2019 Last Documented On 9 10:53AM ; [facility] No recent change in diet 04/05/2019 Last Documented On 9 10:53AM ; [facility] Not a current smoker 04/05/2019 Last Documented On 9 10:53AM ; [facility] Not exercising regularly 04/05/2019 Last Documented On 9 10:53AM ; [facility] Not using alcohol 04/05/2019 Last Documented On 9 10:53AM ; [facility] Not using drugs 04/05/2019 Last Documented On 9 10:53AM ; [facility] Sex - Male 07/05/2025 Last Documented On 5 2:08PM ; [facility] Procedures and Surgical History Includes: Procedures from 07/13/2024 through 07/13/2025 Procedures Code Diagnosis Performing Provider Service Location Service Date Revision or removal of implanted spinal neurostimulator puls (Senior Systems Programmer surgeon) 51659 I/I react d/t implnt elec nstim, generator, init Bekah Cagle PA-C [facility] 07/03/2025 Last Documented On 5 1:56PM ; [facility] Revision or removal of implanted spinal neurostimulator puls 87344 I/I react d/t implnt elec nstim, generator, init Issa Rodriguez MD [facility] 07/03/2025 Last Documented On 5 1:56PM ; [facility] X-RAY EXAM OF TRUNK SPINE 43741 Encntr for adjust and mgmt of implanted nervous sys device, Presence of neurostimulator Issa Rodriguez MD [facility] 06/06/2025 Last Documented On 5 2:21PM ; [facility] Insertion or replacement of spinal neurostimulator pulse gen (Distinct procedure) 20021 Chronic pain syndrome Issa Rodriguez MD [facility] 12/19/2024 Last Documented On 5 5:16PM ; [facility] Revision including replacement, when [place] [address] [facility] compl of implnt elec nstim of spinal cord lead, init Issa Rodriguez MD [facility] 12/19/2024 Last Documented On 5 5:16PM ; [facility] X-RAY EXAM OF FINGER(S) 2-3 VIEWS (Bilateral Procedure) 99917 Trigger finger, left middle finger, 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 12/05/2024 Last Documented On 5 3:22PM ; [facility] Injection, betamethasone acetate 6mg per cc and betamethason J0702 Trigger finger, left middle finger, 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, [facility] 12/05/2024 Last Documented On 5 3:22PM ; [facility] INJ TENDON SHEATH/LIGAMENT (LEFT HAND, THIRD DIGIT) 62340 Trigger finger, left middle finger [facility] 12/05/2024 Last Documented On 5 3:22PM ; [facility] DRAIN/INJECT, JOINT/BURSA (RIGHT) 74205 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, r hand [facility] 12/05/2024 Last Documented On 5 3:22PM ; [facility] X-RAY EXAM OF LOWER SPINE 2-3 VIEWS LIMITED 20656 Chronic pain syndrome Issa Rodriguez MD [facility] 11/29/2024 Last Documented On 5 11:33AM ; [facility] X-RAY EXAM OF THORACIC SPINE 2 VIEWS 65659 Chronic pain syndrome Issa Rodriguez MD [facility] 11/29/2024 Last Documented On 5 11:33AM ; [facility] Surgical History Last Updated History of hernia repair 04/05/2019 Last Documented On 9 10:53AM ; [facility] Medical History Includes: Medical History in patient's chart Description Last Updated No recent immunization for flu Last Documented On 1 8:44AM ; [facility] No recent immunization for pneumococcal pneumonia 03/12/2021 Last Documented On 1 8:44AM ; [facility] cataracs 04/05/2019 Last Documented On 9 10:53AM ; [facility] Arthritic joint problems 04/05/2019 Last Documented On 9 10:53AM ; [facility] Intermittent hypertension 04/05/2019 Last Documented On 9 10:53AM ; [facility] Family History Includes: Family History in patient's chart Description Last Updated Family history of cancer 04/05/2019 Last Documented On 9 10:53AM ; [facility] Family history of hypertension 9 Last Documented On 9 10:53AM ; [facility] Mental Status Description Anxiety Last Documented On 5 8:58AM ; [facility] Anxiety Last Documented On 5 10:36AM ; [facility] Anxiety Last Documented On 5 10:49AM ; [facility] Anxiety Last Documented On 5 9:50AM ; [facility] Anxiety Last Documented On 5 2:27PM ; [facility] No anxiety Last Documented On 5 3:07PM ; [facility] No anxiety Last Documented On [...] and resolved Allergies No Known Allergies Care Ingot Stripper Name (Identifier) Role/Relation Location/Telecom Last Documented By Domingo Billingsley MD ([id number]) Assigned practitioner (occupation) tel:[phone] Last Documented On 07/05/2025 2:08PM ; [facility] Olga Licea APRN ([id number]) [address] [place] [address], [address] tel: Last Documented On 04/05/2019 9:06AM ; [facility] Encounters Includes: Encounters from 07/13/2024 through 07/13/2025 Encounter Provider Location (Healthcare Service Location) Date Check-In Time Check-Out Time Diagnosis Encounter Disposition [Patient Encounter] Issa Rodriguez MD [facility] Outpt 202406/06/2025 1:55PM 06/06/2025 11:59PM [Patient Encounter] Issa Rodriguez MD 202406/06/2025 8:31AM 06/06/2025 11:59PM Follow Up Issa Rodriguez MD [facility] 2024 8:53AM 10:11AM Overweight Post Op Holden Modi PA-C [facility] 2024 10:30AM 10:40AM Overweight Post Op Holden Modi [facility]-C [facility] 2024 10:33AM 11:15AM Overweight Post Op Holden Modi PA-C [facility] 2024 9:29AM 10:09AM Overweight [Patient Encounter] Issa Rodriguez MD 202412/05/2024 8:36AM 12/05/2024 11:59PM [facility] Issa Rodriguez MD Surgery 202412/23/2024 5:01PM 12/05/2024 11:59PM IN HOUSE REFERRAL Flako Pulido PA-C [facility] 2024 2:26PM 3:21PM Overweight Follow Up Issa Rodriguez MD [facility] 2024 3:04PM 3:32PM Payer Includes: Active Insurance Policies Plan Name (Payer ID) Coverage Type Member ID Group # Subscriber (ID) Relationship Effective Dates 1 - Medicare Part B [facility] ([id number]) [id number] Stephane Mendieta Self (Checked on 06/03/2025) Last Documented On 9 7:57AM ; [facility] 2 - C[employer] Medicare Supplemen t Insurance [id number] Stephane Mendieta Self 09/15/2017 - Unknown Last Documented On 9 8:40AM ; [facility] Clinical Notes Includes: Signed Clinical Notes starting from 07/01/2022 * Progress note Date Encounter Last Documented by 06/06/2025 Follow Up Last documented on 06/11/2025; 1:20 PM, Issa Rodriguez MD; [facility] Active Problems & Conditions [...] Care Team - Olga Licea APRN - BIOINFORMATICS ASSISTANT Health Reminders - Assess BMI satisfied 06/06/2025. - Assess Tobacco Use satisfied 04/05/2019. - Follow Up Plan BMI Management satisfied 06/06/2025. * Progress note Date Encounter Last Documented by 01/14/2025 Post Op Last documented on 01/14/2025; 10:41 AM, Holden Modi PA-C; [facility] Active Problems & Conditions [...] contain errors and omissions. Care Team - lOga Licea APRN - BIOINFORMATICS ASSISTANT * Progress note Date Encounter Last Documented by 01/07/2025 Post Op Last documented on 01/28/2025; 11:48 AM, Holden Modi PA-C; [facility] Active Problems & Conditions [...] Care Team - Olga Licea APRN - BIOINFORMATICS ASSISTANT * Progress note Date Encounter Last Documented by 12/28/2024 Post Op Last documented on 12/28/2024; 12:21 PM, Holden Modi PA-C; [facility] Active Problems [...] Care Team - Olga Licea APRN - BIOINFORMATICS ASSISTANT * Progress note Date Encounter Last Documented by 12/05/2024 IN HOUSE REFERRAL Last documente d on 12/05/2024; 4:17 PM, Flako Pulido PA-C; [facility] Active Problems [...] Care Team - Olga Licea APRN - BIOINFORMATICS ASSISTANT * Progress note Date Encounter Last Documented by 11/29/2024 Follow Up Last documented on 12/17/2024; 10:39 AM, Issa Rodriguez MD; [facility] Active Problems [...] be working 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 He is neurovascularly intact. He is [...] Care Team - Olga Licea APRN - BIOINFORMATICS ASSISTANT Health Reminders - Assess BMI satisfied 11/29/2024. - Assess Tobacco Use satisfied 04/05/2019. - Follow Up Plan BMI Management satisfied 11/29/2024.
--- OUTSIDE RECORDS SUMMARY | 2025-07-13 10:21 | XMS_ITS | Patient Health Record ---
Author Organization [facility] Address [address] [facility] [address] [place] [address] Care Team Providers Care Psychiatric Rn Name Role Phone Jerome Morrissey II Unavailable [phone] Michael COLEMAN -Issa Barry MD Unavailable [phone] Allergies No Known Allergies Reason For Referral [...] Status Risk Notes Problem Chronic pain syndrome (550161492) Chronic pain syndrome (G89.4) Active confirmed Problem Complex regional pain syndrome of lower limb (disorder) (516314465) Complex regional pain syndrome I of unspecified lower limb (G90.529) Active confirmed Problem Cervical spondylosis without myelopathy (480908945) Other spondylosis with radiculopathy, cervical region (M47.22) Active confirmed Problem Cervical spondylosis without myelopathy (093833857) Spondylosis without myelopathy or radiculopathy, cervical region (M47.812) Active confirmed Problem Lumbosacral spondylosis without myelopathy (35465681) Spondylosis without myelopathy or radiculopathy, lumbar region (M47.816) Active confirmed Problem Cervicalgia (11173169) Cervicalgia (M54.2) Active confirmed Problem Post-laminectom y syndrome (03799127) Postlaminectomy syndrome, not elsewhere classified (M96.1) Active confirmed Problem Long-term current use of drug therapy (505556671) Other neonatal surgeon (current) drug therapy (Z79.899) Active confirmed Problem Lumbar spondylosis (948200419) lumbar spondylosis (M47.816) Active confirmed Vital Signs Heart Rate 80 /min 10/19/2024 Blood pressure diastolic 75 mm Hg 10/19/2024 Height 69 in 10/19/2024 Blood pressure systolic 158 mm Hg 10/19/2024 Weight 250 lbs 10/19/2024 BMI 36.91 kg/m2 10/19/2024 Encounters Encounter Location Date Provider Diagnosis [facility] [address] [place] [address] [place] [address] 10/19/2024 Jerome Morrissey Other skilled nursing (current) drug [...] once again for the long-term. 10/19/2024 Other neonatal surgeon (current) drug therapy (ICD-10 - Z79.899) 04/02/2024 1. Discontinue [place] 5/325mg QD PRN 2. FU PRn Mr. [...] Urine Test ANALYZER 05/26/2022 Urine Test ANALYZER 10/15/2022 Urine Test ANALYZER 01/03/2024 Urine Test ANALYZER 10/19/2024 Urine Test ANALYZER 09/23/2022 Urine Test ANALYZER 08/16/2022 Insurance Providers Payer Name Payer Address Payer Phone Subscriber Number Group Number Insured Name Patient Relationship to Insured Coverage Start Date Coverage End Date [place] [address] [place] [address] [id number] Stephane Mendieta Self - patient is the insured 8 C[employer] Medicare Supplement [address] [place] [phone] [id number] Stephane Mendieta Self - patient is the insured 8 Medical (General) History Medical History History ICD Code anxiety / Managed by PCP Surgical History Surgery Date(Month/Year) Back surgery / Dr. Rodriguez 09/2019 right knee replacement
--- OUTSIDE RECORDS SUMMARY | 2025-07-13 10:21 | XMS_ITS | Clinical Summary ---
[facility] Address [address] [place] [address] Care Team Providers Care Chuck Wagon Cook Name Role Phone Maya Torres Primary Care Provider + [phone] Allergies No known active allergies Medications DULoxetine [...] Completed 10/27/2020 Medical Devices Implanted Type Area Mechanic Insulator Device Identifier Shelf Expiration Date Model / Serial / Lot Ld Stim Precsn Trial Lnr 8contct St/Tp50 - [id number] - [id number] Implanted:Qty : 1 on 10/05/2022 by Jerome Morrissey MD at [facility] Implant N/A: Spine Thoracic [employer] 08/30/2024 [id number] / [id number] / Ld Stim Precsn Trial Lnr 8contct St/Tp50 - [id number] - [id number] Implanted:Qty : 1 on 10/05/2022 by Jerome Morrissey MD at [facility] Implant N/A: Spine Thoracic [employer] 08/26/2024 [id number] / [id number] / Anchr Ld Scs Clikx Ea/St/2 - [id number] Implanted:Qty : 1 on 10/05/2022 by Jerome Morrissey MD at [facility] Implant N/A: Spine Thoracic [employer] 01/06/2024 [id number] / / [id number] Kt Ipg Wavewriter Alpha 16/Contct - [id number] - [id number] Implanted:Qty : 1 on 10/05/2022 by Jerome Morrissey MD at [facility] Implant N/A: Spine Thoracic [employer] [id number] 09/13/2024 [id number] / [id number] / [id number] Insurance MEDICARE A & B Member Subscriber Plan / Payer (Ef fective 2017-Present) Name:Stephane Mendieta Member ID:[id number] Relation to Subscriber:Self Name:Stephane Mendieta Subscriber ID:[id number] Payer ID:[id number] Group ID:Not on file Type:Not on file Address: [facility] [address] [place] [id number] [facility] [employer] Care Teams Chuck Wagon Cook Relationship Specialty Start Date End Date Maya Torres Kaylyn [place] [id number] PCP - General Nurse Practitioner 09/28/22
--- OUTSIDE RECORDS SUMMARY | 2025-07-13 10:21 | XMS_ITS | Encounter Summary ---
Author Organization [employer] ([place], [place], [place], [place], [place]) Address [address] [place] [address] Care Team Providers Care Computer Bookkeeper Name Role Phone Maya Torres Reji BELCHER Primary Care Provider [phone]- [phone] Encounter Details Date Type Department Care Team (Late st Contact Info) Description 10/18/2020 Transcribed Document [facility] [place] Family [facility] [place] [address] ProviderJean MD [address] [place] [address] Social History Tobacco Use Types Packs/Day Years [...] 10/18/2020 21:39 EDT Electronically signed by Ileana [facility] Conversion Cook Helper Meat Cerner at 11/04/2022 3:31 PM CDT documented in this encounter Plan of Treatment Not on file documented as of this encounter Visit Diagnoses Not on filedocumented in this encounter Care Teams Computer Bookkeeper Relationship Specialty Start Date End Date Maya Torres, MIXING MACHINE FEEDER [address] [phone] PCP - General Family Medicine 08/27/22 documented as of this encounter
--- OUTSIDE RECORDS SUMMARY | 2025-07-13 10:22 | XMS_ITS | Encounter Summary ---
Author Organization [employer] ([place], [place], [place], [place], [place]) Address [address] [place] [address] Care Team Providers Care Harness Worker Name Role Phone Maya Torres Reji BELCHER Primary Care Provider +1- [phone] Encounter Details Date Type Department Care Team (Late st Contact Info) Description 10/18/2020 Transcribed Document [facility] [place] Family [facility] [place] [address] ProviderJean MD [address] [place], [place] [id number] Social History Tobacco Use Types Packs/Day Years [...] On: 10/18/2020 19:09 EDT by SUSHMA MARQUEZ, PHOTO INTERN Triage Across the Room Chief Complaint : [...] : 3 - Urgent Tracking Group : [facility] ED SUSHMA MARQUEZ RN - 10/18/2020 [...] Problems(Active) At risk for sleep apnea (IMO :26771129 ) Name of Problem: At risk for sleep apnea ; Recorder: SYSTEM, SYSTEM; Confirmation: Confirmed ; Classification: Medical ; Code: 28516436 ; Last Updated: 06/16/2018 8:18 EST ; Life Cycle Date: 06/16/2018 ; Life Cycle Status: Active ; Vocabulary: IMO Enlarged prostate (SNOMED CT :672068514 ) Name of Problem: Enlarged prostate ; Recorder: Shavonne Jimenez RN; Confirmation: Confirmed ; Classification: Medical ; Code: 734043864 ; Contributor System: [employer]Chart ; Last Updated: 06/16/2018 8:22 EST ; Life Cycle Date: 06/16/2018 ; Life Cycle Status: Active ; Vocabulary: SNOMED CT Hypertension (SNOMED CT :8591105533 ) Name of Problem: Hypertension ; Recorder: Shavonne Jimenez RN; Confirmation: Confirmed ; Classification: Medical ; Code: 7838986587 ; Contributor System: [employer]Chart ; Last Updated: 06/16/2018 8:21 EST ; Life Cycle Date: 06/16/2018 ; Life Cycle Status: Active ; Vocabulary: SNOMED CT Seasonal allergies (SNOMED CT :6536797363 ) Name of Problem: Seasonal allergies ; Recorder: Shavonne Jimenez RN; Confirmation: Confirmed ; Classification: Medical ; Code: 5724396054 ; Contributor System: [employer] ; Last Updated: 06/16/2018 8:22 EST ; Life Cycle Date: 06/16/2018 ; Life Cycle Status: Active ; Vocabulary: SNOMED CT Diagnoses(Active) Rib/trunk pain-swelling Date: 10/18/2020 ; Diagnosis Type: Reason For Visit ; Confirmation: Complaint of ; Clinical Dx: Rib/trunk pain-swelling ; Classification: Medical ; Clinical Service: Emergency medicine ; Code: PNED ; Probability: 0 ; Diagnosis Code: [id number] ED Height and Weight Height Source : Stated Height Entry Format : [place] Height, Feet : 5 ft(Converted to: 152 cm, 60 Inch) Height, Inches : 8 Inch(Converted to: 0 ft 8 Inch, 20.32 cm) Clinical Height : 172.72 cm Weight Source, ED : Critical estimated dosing weight Weight Entry Format : [place] Weight, Pounds : 240 lb Clinical Dosing Weight : 109.09 kg Body Surface Area (BSA) : 2.21 m2 Body Mass Index : 36.6 kg/m2 (HI) [place] Body Weight (IBW) : 67.45 kg SUSHMA MARQUEZ RN - 10/18/2020 19:09 EDT documented in this encounter Plan of Treatment Not on file documented as of this encounter Visit Diagnoses Not on filedocumented in this encounter Care Teams Harness Worker Relationship Specialty Start Date End Date Maya Torres, FIBERGLASS BOAT FINISHER [address] [phone] PCP - General Family Medicine 08/27/22 documented as of this encounter
--- OUTSIDE RECORDS SUMMARY | 2025-07-13 10:22 | XMS_ITS | Encounter Summary ---
Author Organization [employer] ([place], [place], [place], [place], [place]) Address [address] [place] [address] Care Team Providers Care Liquid Center Assembler Name Role Phone Maya Torres Reji BELCHER Primary Care Provider +1- [phone] Encounter Details Date Type Department Care Team (Late st Contact Info) Description 10/27/2020 Transcribed Document [facility] Family Medicine [address] [place] [address] ProviderJean MD [address] [place] [address] Social History Tobacco Use Types [...] On: 10/27/2020 12:21 EDT by Jasmin Thornton VP CARE MANAGEMENT General-Functional Assess Preferred Communication Mode : Verbal Communication Barrier : None Primary Language : Iraqi Any Spiritual/Cultural Needs or Requests : No [...] Rhythm : Regular Nail Bed Color : White Signal Chest Pain : No Capillary Refill, Left [...] mm Pupil Size, Right : 3 mm Elmo Coma Scale Link : Open [facility] Jasmin Thornton RN - 10/27/2020 12:21 EDT Diana Coma Diana Best Motor Response : Obey commands Diana Best Verbal Response : Oriented Elmo Eye Opening Response : Spontaneous [place]mo Coma Score : 15 Jasmin Thornton RN - 10/27/2020 12:21 EDT Electronically signed by [facility] Conversion High School Business Teacher Cerner at 11/04/2022 3:11 PM CDT documented in this encounter Plan of Treatment Not on file documented as of this encounter Visit Diagnoses Not on filedocumented in this encounter Care Teams Liquid Center Assembler Relationship Specialty Start Date End Date Maya Torres, BENEFITS COUNSELOR [address] [phone] PCP - General Family Medicine 08/27/22 documented as of this encounter
--- OUTSIDE RECORDS SUMMARY | 2025-07-13 10:22 | XMS_ITS | Encounter Summary ---
Author Organization [employer] ([place], [place], [place], [place], [place]) Address [address] [place] [address] Care Team Providers Care Warm In Worker Name Role Phone Maya Torres Reji BELCHER Primary Care Provider +1- [phone] Encounter Details Date Type Department Care Team (Late st Contact Info) Description 10/18/2020 Transcribed Document [facility] [place] [address] [place] [address] ProviderJean MD [address] [place] [address] Social History Tobacco Use Types [...] : Low risk (0) [place] Interventions : [place] precautions for safety used Dee Ocampo, HOLA - 10/18/2020 19:41 EDT Electronically signed by Ileana [facility] Conversion Manager Statistics Cerner at 11/04/2022 3:34 PM CDT documented in this encounter Plan of Treatment Not on file documented as of this encounter Visit Diagnoses Not on filedocumented in this encounter Care Teams Warm In Worker Relationship Specialty Start Date End Date Maya Torres, WELDER FITTER HELPER [address] [phone] PCP - General Family Medicine 08/27/22 documented as of this encounter
--- OUTSIDE RECORDS SUMMARY | 2025-07-13 10:22 | XMS_ITS | Clinical Summary ---
Author Organization [facility] , [facility] Address [address] [place] [address] Phone Care Team Providers Care Endocrinology Nurse Name Role Phone Jose Cruz COLEMAN, Domingo Jett Unavailable [phone] Olga Licea APRN Unavailable [phone] Reason for Visit and Chief Complaint The Chief Complaint is: back pain Problems Includes: Problems addressed during this encounter and other active Problems All Visits Onset Date Date of Diagnosis Resolved Date Provider Condition Status Soft Tissue Pain Hand 12/05/2024 12/05/2024 Flako Pulido PA-C Active Last Documented On 5 1:43AM ; [facility], [facility] History of Lower Back Pain M idline Right Side 04/12/2022 04/12/2022 Holden Modi PA-C Active Last Documented On 5 1:41AM ; [facility] Joint Pain Left Thumb 03/12/2021 03/12/2021 Charles Hernandez MD Active Last Documented On 5 1:40AM ; [facility], [facility] Joint Pain in Both Knees 04/05/2019 04/05/2019 Arlet Billingsley MD Active Last Documented On 5 1:39AM ; [facility], [facility] Plan of Treatment Patient screened for future fall risk: documentation of any fall with injury in past year. - Last Documented On 01/14/2025 10:41AM ; [facility], [facility] Patient was seen by myself Holden [...] - Last Documented On 01/14/2025 10:41AM ; [facility], [facility] Pending Tests Order Diagnosis Results Due Ordering P rovider Radiology - MRI MRI Lumbar Spine 04/26/22 Chas Modi PA-C Last Documented On 2 1:06PM ; [facility] Future Appointments Date Time Location Provi tahira Post Op 07/19/2025 11:00AM [facility] Holden Modi PA-C Last Documented On 5 10:29AM ; [facility] Instructions to patient Lose weight Last Documented On 10:36AM ; [facility] Assessments Includes: Assessments from this encounter Findings - Overweight - Last Documented On 01/14/2025 10:41AM ; [facility] 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 December 19, 2024 - Last Documented On 01/14/2025 10:41AM ; [facility] Instructions Includes: Instructions from this encounter Instructions to patient Lose weight Last Documented On 10:36AM ; [facility] Medical Equipment - Implanted [...] On 5 10:36AM By Quentin Wm ; [facility] oxyCODONE-Acetaminophen 5-325 MG Oral Tablet Provider: Issa Rodriguez MD Diagnosis: Last Documented On 5 9:50AM By Quentin Burk ; [facility], [facility] Pantoprazole Sodium 40 MG Or al Tablet Delayed Release 12/09/2024 Provider: Maya Torres VFX ARTIST Diagnosis: Last Documented On 5 9:50AM By Quentin uBrk ; [facility], [facility] LORazepam 1 MG Oral Tablet 12/04/2024 Provider: Nancy Torres VFX ARTIST Diagnosis: Last Documented On 5 9:50AM By Quentin Burk ; [facility], [facility] Doxycycline Hyclate 100 MG Oral Capsule 12/04/2024 P rosoniader: Diagnosis: Last Documented On 5 9:50AM By Quentin Burk ; [facility], [facility] sulfaSALAzine 500 MG Oral Tablet 11/27/2024 Provider : Maya Torres VFX ARTIST Diagnosis: Last Documented On 5 9:50AM By Quentin Burk ; [facility], [facility] Albuterol Sulfate HFA 108 (9 0 Base) MCG/ACT Inhalation Aerosol Solution 11/07/2024 Provider: Maya anderson VFX ARTIST Diagnosis: Last Documented On 5 9:50AM By Quentin Burk ; [facility], [facility] Finasteride 5 MG Oral Tablet 11/03/2024 Provider: Maya Torres VFX ARTIST Diagnosis: Last Documented On 5 9:50AM By Quentin Burk ; [facility], [facility] Tamsulosin HCl 0.4 MG Oral Capsule 11/03/2024 Provid er: Maya Torres VFX ARTIST Diagnosis: Last Documented On 5 3:49PM By Marifer Nuñez ; [facility], [facility] Amoxicillin 875 MG Oral Tablet 09/11/2024 Provider: Diagnosis: Last Documented On 5 9:50AM By Quentin Burk ; [facility], [facility] predniSONE 10 MG Oral Tablet 03/11/2021 Provider: Jarek Muñiz DO Diagnosis: Last Documented On 1 8:34AM By Deborah Lowery ; [facility], [facility] Amoxicillin 500 MG Oral Capsule 03/11/2021 Provider: Jarek Muñiz DO Diagnosis: Last Documented On 1 8:34AM By Deborah Lowery ; [facility], [facility] Cephalexin 500 MG Oral Capsule 03/10/2021 Provider: Diagnosis: Last Documented On 8:34AM By Deborah Lowery ; [facility], [facility] HYDROcodone-Acetaminophen 5-325 MG Oral Tablet 021 Provider: Diagnosis: Last Documented On 8:34AM By Deborah Lowery ; [facility], [facility] Gabapentin 300 MG Oral Capsule 03/06/2021 Provider: Diagnosis: Last Documented On 8:34AM By Deborah Lowery ; [facility], [facility] LORazepam 1 MG Oral Tablet 03/06/2021 Provider: Diagnosis: Last Documented On 8:34AM By Deborah Lowery ; [facility], [facility] Esomeprazole Magnesium 40 MG Oral Capsule Delayed Rele ase 03/04/2021 Provider: Diagnosis: Last Documented On 8:34AM By Deborah Lowery ; [facility], [facility] Esomeprazole Magnesium 40 MG Oral Capsule Delayed Rele ase 03/04/2021 Provider: Diagnosis: Last Documented On 8:34AM By Deborah Lowery ; [facility], [facility] Fluticasone Propionate 50 MCG/ACT Nasal Suspension Provider: Diagnosis: Last Documented On 8:35AM By Deborah Lowery ; [facility], [facility] Past Medications on file Clindamycin HCl 300 MG Oral Capsule 01/07/2025 - 01/09/2025 Provider: Holden Steiner Diagnosis: take 2 pills, 3 three times a day Last Documented On 5 11:06AM By Quentin Burk ; [facility], [facility] Clindamycin HCl 300 MG Oral Capsule 12/28/2024 - 01/08/2025 Provider: Holden Steiner Diagnosis: three times a day Last Documented On 5 10:10AM By Quentin Burk ; [facility], [facility] Percocet 5-325 MG Oral Tablet 12/19/2024 - 01/03/2025 Provider: Issa Rodriguez MD Diagnosis: 1 po q 4h prn pain Last Documented On 5 8:40AM By Issa Rodriguez ; [facility], [facility] Losartan Potassium 100 MG Oral Tablet 12/05/2024 - Provider: Diagnosis: Last Documented On 5 3:50PM By Marifer Nuñez ; [facility] DULoxetine HCl 60 MG Oral Ca psule Delayed Release Particles 12/05/2024 - 03/05/2025 Provider: Diagnosis: Last Documented On 5 3:49PM By Marifer DANGELO [facility] Montelukast Sodium 10 MG Oral Tablet 12/05/2024 - 02/15 Provider: Diagnosis: Last Documented On 5 3:49PM By Marifer Nuñez ; [facility], [facility] Medications Administered Includes: Administered Medications from this encounter No Administered Medications Recorded Vital Signs Includes: Vital Signs from this encounter Vital Name 01/14/2025 10:36A Height (in) 69 Weight (lb) 250 Body Mass Index 36.9 Body Surface Area 2.3 Pain Level 3 Last Documented: On 01/14/2025 10:36A M ; [facility] Results Includes: Results discussed during this [...] Documented On 5 10:36AM ; [facility], [facility] No recent change in diet 04/22/2022 Last Documented On 5 10:36AM ; [facility], [facility] Not a current smoker. 04/22/2022 Last Documented On 5 10:36AM ; [facility], [facility] Non-smoker 03/12/2021 Last Documented On 5 10:36AM ; [facility], [facility] No tobacco use 04/05/2019 Last Documented On 5 10:36AM ; [facility] Smoking status : Never smoker 04/05/2019 Last Documented On 5 10:36AM ; [facility], [facility] Caffeine use 04/05/2019 Last Documented On 5 10:36AM ; [facility], [facility] No recent change in diet 04/05/2019 Last Documented On 5 10:36AM ; [facility], [facility] Not a current smoker 04/05/2019 Last Documented On 5 10:36AM ; [facility], [facility] Not exercising regularly 04/05/2019 Last Documented On 5 10:36AM ; [facility], [facility] Not using alcohol 04/05/2019 Last Documented On 5 10:36AM ; [facility], [facility] Not using drugs 04/05/2019 Last Documented On 5 10:36AM ; [facility], [facility] Sex - Male 07/05/2025 Last Documented On 5 2:08PM ; [facility], [facility] Procedures and Surgical History Surgical History Last Updated History of hernia repair 04/05/2019 Last Documented On 5 10:36AM ; [facility], [facility] Medical History Includes: Medical History addressed during this encounter Description Last Updated No recent immunization for flu Last Documented On 5 10:36AM ; [facility], [facility] No recent immunization for pneumococcal pneumonia 03/12/2021 Last Documented On 5 10:36AM ; [facility], [facility] cataracs 04/05/2019 Last Documented On 5 10:36AM ; [facility], [facility] Arthritic joint problems 04/05/2019 Last Documented On 5 10:36AM ; [facility], [facility] Intermittent hypertension 04/05/2019 Last Documented On 5 10:36AM ; [facility], [facility] Family History Includes: Family History addressed during this encounter Description Last Updated Family history of cancer 04/05/2019 Last Documented On 5 10:36AM ; [facility], [facility] Family history of hypertension 9 Last Documented On 5 10:36AM ; [facility], [facility] Review of Systems Includes: [...] Description Anxiety Last Documented On 10:36AM ; [facility] Physical Exam Includes: Physical Exam from this encounter Allergies Includes: Active Allergies No Known Allergies Care Endocrinology Nurse Name (Identifier) Role/Relation Location/Telecom Last Documented By Domingo Billingsley MD ([id number]) Assigned practitioner (occupation) tel:[phone] Last Documented On 07/05/2025 2:08PM ; [facility] Olga Vicki Licea APRN ([id number]) [address] [place] [address], [address] tel:[phone] Last Documented On 04/05/2019 9:06AM ; [facility] Encounters Encounter Provider Location (Healthcare Service Location) Date Check-In Time Check-Out Time Diagnosis Encounter Disposition Post Op Holden [facility] 10:30[facility] 10:40AM Overweight Payer Includes: Active Insurance Policies Plan Name (Payer ID) Coverage Type Member ID Group # Subscriber (ID) Relationship Effective Dates 1 - Medicare Part B [facility] ([id number]) [id number] Stephane Mendieta Self (Checked on 06/03/2025) Last Documented On 9 7:57AM ; [facility], [facility] 2 - C[employer] Medicare Supplemen t Insurance [id number] Stephane Mendieta Self 09/15/2017 - Unknown Last Documented On 9 8:40AM ; [facility], [facility] Clinical Notes Includes: Clinical Notes from this encounter * Progress note Date Encounter Last Documented by 01/14/2025 Post Op Last documented on 01/14/2025; 10:41 AM, Holden Modi PA-C; [facility], [facility] Active Problems & Conditions - History [...] Replacement spinal cord stimulator battery with the padPinoccios system. December 19, 2024 Previous Tests Available [...] Care Team - Olga Licea APRN - PC TECH
[2025-07-13] MEDS: DAPTOmycin 1,000 MG in 0.9 % SODIUM CHLORIDE 50 ML 100 MG IV (10:44)
[2025-07-13 11:15] VITALS: BP 140/70; PULSE 86; RESP 20; TEMP 36.8; O2SAT 92
[2025-07-13 11:38] VITALS: BP 147/80; PULSE 83; RESP 18; O2SAT 93
== END 2025-07-13 11:33 | disposition home or self-care (01) ==
LOC: INF 10:18
PROVIDERS: PCP Nurse Practitioner; Visit Provider Internal Medicine Infectious Disease
DX: T85.73 Infection and inflammatory reaction due to nervous system devices, implants and graft (principal)
CPT/HCPCS: 96365; J0878

== ENCOUNTER 2025-07-14 10:03 | Outpatient (CLI) | payer MEDICARE, OTHER, SELFPAY ==
--- OUTSIDE RECORDS SUMMARY | 2022-12-01 11:56 | XMS_ITS | Encounter Summary ---
[facility] [address] [place] [address] Care Team Providers Care International Account Manager Name Role Phone Maya Torres Primary Care Provider + [phone] Encounter Details Date Type Department Care Team (Late st Contact Info) Description 12/01/2022 12:56 PM EDT Hospital Encounter [facility] PULMONARY & CRITICAL CARE MEDICINE [facility] [place] [address] Social History Tobacco Use Types [...] Narrative 12/01/2022 1:31 PM EDT Stephane Annton [id number] 12/01/2022 Chest X-Ray PA & Lateral Indication: [...] on filedocumented in this encounter Care Teams International Account Manager Relationship Specialty Start Date End Date Maya Torres [address] [place] [address] PCP - General Nurse Practitioner 09/28/22 documented as of this encounter
--- OUTSIDE RECORDS SUMMARY | 2024-04-27 06:30 | XMS_ITS ---
Author Organization [facility] Address [address] [place] [address] Care Team Providers Care Vamp Seamer Name Role Phone Jerome Morrissey II Unavailable Michael COLEMAN -Pramod Velazquez MD, Issa Unavailable [phone] Allergies No Known Allergies REASON FOR VISIT [...] Diagnosis [facility] [address] [place] [address] 04/27/2024 Jerome Morrissey Other correction (current) drug therapy Z79.899 ; Spondylosis without myelopathy or radiculopathy, cervical region M47.812 ; Postlaminectomy syndrome, not elsewhere classified M96.1 and Spondylosis without myelopathy or radiculopathy, lumbar region M47.816 Assessments Encounter Date Diagnosis (ICD Code) Assessment Notes Treatment Notes Treatment Clinical Notes Section Notes 04/27/2024 Other lapel padder blindstitch (current) drug therapy (ICD-10 - Z79.899) 04/02/2024 1. Discontinue [place] 5/325mg QD PRN 2. FU 1 month with Yuni 3. [facility] to change SCS settings 4. S/P [...] no relief with TFESI LT in January. [employer] rep in the room changing SCS settings. [...] no relief with TFESI LT in January. [employer] rep in the room changing SCS settings. [...] no relief with TFESI LT in January. [employer] rep in the room changing SCS settings. [...] no relief with TFESI LT in January. [employer] rep in the room changing SCS settings. [...] Of Treatment Treatment Notes Assessment Notes Other correction (current) drug therapy 04/02/2024 1. Discontinue [place] 5/325mg QD PRN 2. FU 1 month with Yuni 3. [facility] rep to change SCS settings 4. S/P [...] Stephane YANEZ ADOB: 3 (74 yo M)Acc No.[id number]:04/27/2024 FollowUP Patient: Stephane RODRIGUEZ Provider: Reji Morrissey II, M.D. :1950 A ge:73 Y S ex:Male Date:04/27/2024 Address:[address] [place], [place] [id number] Subjective: * Chief Complaints: * 1 . [...] relief for 1 hour 0 08/09/2022SCS Trial [place] 80% relief for 1 week 0 02/13/2024#1 [...] * Vitals: * Examination: G eneral Examination: Nurse/Chief Deputy Sheriff: Phill McnamaraMA-Shamar)Madeleine 04/02/2024 9:48:48 AM > . [...] scars. Assessment: * Assessment: 1. O ther lapel padder blindstitch (current) drug therapy - Z79.899 (Primary) 2 [...] no relief with TFESI LT in January. [employer] rep in the room changing SCS settings. [...] signature of Raymon Morrissey II, M.D. on 07/14/2025 at 09:09 AM DAY TREATMENT CLINICIAN/ART THERAPIST Sign off status: Pending * Provider: Reji Morrissey II, M.D. Date: 1 Generated for Irwin spears/Davon/Bentleyitting on: 1 09/14/2024 09:09 AM DAY TREATMENT CLINICIAN/ART THERAPIST History and Physical Notes * HPI (History [...] to advanced foraminal encroachment PHYSICAL/AQUA THERAPY/DME/OTHER HISTORY: 8499-7031 Chiropractic therapy program complete 06/2023-Present: Patient continues a prescribed home exercise program 3-5 times per week which includes walking, lumbar stretches, and alternating leg lifts PERTINENT SURGICAL EVALUATIONS/SPECIALIST CONSULTS 04/2022 - Dr. Rodriguez - No surgery recommened, recommends SCS trial PREVIOUS INJECTION\PROCEDURE HISTORY: 08/21/2019 #1 SIJI RT 20% relief for 1 hour 08/09/2022 SCS Trial [place] 80% relief for 1 week 02/13/2024 #1 [...] wi th an antalgic gait, pitched forward Nurse/Chief Deputy Sheriff: Mendez SHARMA-Shamar)Francisco J 04/02/2024 9:48:48 AM > [...]
--- OUTSIDE RECORDS SUMMARY | 2024-05-28 10:30 | XMS_ITS ---
Author Organization [facility] Address [address] [place] [address] Care Team Providers Care Fabrication Supervisor Name Role Phone Jerome Morrissey II Unavailable Michael COLEMAN -Pramod Velazquez MD, Issa Unavailable [phone] Allergies No Known Allergies REASON FOR VISIT [...] Diagnosis [facility] [address] [address] 05/28/2024 Jerome Morrissey Other manager intermediate (current) drug therapy Z79.899 ; Spondylosis without myelopathy or radiculopathy, cervical region M47.812 ; Postlaminectomy syndrome, not elsewhere classified M96.1 and Spondylosis without myelopathy or radiculopathy, lumbar region M47.816 Assessments Encounter Date Diagnosis (ICD Code) Assessment Notes Treatment Notes Treatment Clinical Notes Section Notes 05/28/2024 Other detention (current) drug therapy (ICD-10 - Z79.899) 04/02/2024 1. Discontinue [place] 5/325mg QD PRN 2. FU 1 month with [facility] 3. [employer] rep to change SCS settings 4. S/P [...] no relief with TFESI LT in January. [employer] rep in the room changing SCS settings. [...] no relief with TFESI LT in January. [employer] rep in the room changing SCS settings. [...] no relief with TFESI LT in January. [employer] in the room changing SCS settings. Patient [...] no relief with TFESI LT in January. [employer] rep in the room changing SCS settings. [...] Of Treatment Treatment Notes Assessment Notes Other manager intermediate (current) drug therapy 04/02/2024 1. Discontinue [place] 5/325mg QD PRN 2. FU 1 month with [facility] 3. [employer] rep to change SCS settings 4. S/P [...] Stephane MENDIETA ADOB: 3 (74 yo M)Acc No.[id number]:05/28/2024 Progress NOte Patient: Stephane RODRIGUEZ Provider: Reji Morrissey II, M.D. :1950 A ge:73 Y S ex:Male Date:05/28/2024 Address:[address] [place] [phone] Subjective: * Chief Complaints: * 1 . [...] for 1 hour 0 08/09/2022 SCS Trial Xmmgek40% relief for 1 week 0 02/08/2024- #1 [...] * Vitals: * Examination: G eneral Examination: Nurse/Retirement Officer: Madeleine Gonzalez (MA-Lex) 04/02/2024 9:48:48 AM > [...] no relief with TFESI LT in January. [employer] rep in the room changing SCS settings. [...] Raymon Morrissey II, M.D. on 07/14/2025 at 09:10 AM SAND OPERATOR Sign off status: Pending * Provider: Reji Morrissey II, M.D. Date: 07/28/2023 Generated for Irwin spears/Davon/Nicholasransmitting on: 09/14/2024 09:10 AM SAND OPERATOR History and Physical Notes * HPI [...] to advanced foraminal encroachment PHYSICAL/AQUA THERAPY/DME/OTHER HISTORY: 3121-8893 Chiropractic therapy program complete 06/2023-Present: Patient continues a prescribed home exercise program 3-5 times per week which includes walking, lumbar stretches, and alternating leg lifts PERTINENT SURGICAL EVALUATIONS/SPECIALIST CONSULTS 04/2022 - Dr. Rodriguez - No surgery recommened, recommends SCS trial PREVIOUS INJECTION\PROCEDURE HISTORY: 08/21/2019 #1 SIJAYLYN RT 20% relief for 1 hour 08/09/2022 SCS Trial [place] 80% relief for 1 week 02/08/2024 - [...] wi th an antalgic gait, pitched forward Nurse/Retirement Officer: Mendez (ALEJANDRINA-Shamar)Francisco J 04/02/2024 9:48:48 AM > [...]
--- OUTSIDE RECORDS SUMMARY | 2025-07-14 10:09 | XMS_ITS | Encounter Summary ---
Author Organization [employer] ([place], [place], [place], [place], [place]) Address [address] [place] [address] Care Team Providers Care Accountant Tax Name Role Phone Maya Torres Reji BELCHER Primary Care Provider [phone] Encounter Details Date Type Department Care Team (Late st Contact Info) Description 10/27/2020 Transcribed Document [facility] Family Medicine [address] [place] [address] ProviderJean MD [address] [place] [address] Social History Tobacco Use Types [...] on filedocumented in this encounter Care Teams Accountant Tax Relationship Specialty Start Date End Date Maya Torres, ACID TENDER [address] [phone] PCP - General Family Medicine 08/27/22 documented as of this encounter
--- OUTSIDE RECORDS SUMMARY | 2025-07-14 10:09 | XMS_ITS | Clinical Summary ---
Author Organization [employer] ([place], [place], [place], [place], [place]) Address [address] [place] [address] Care Team Providers Care Hepatologist Name Role Phone Maya Torres APRN Primary Care Provider [phone]- [phone] Allergies No known active allergies Medications traZODone [...] 04/24/2019, 2017 Insurance MEDICARE PART A B [facility] Care Teams Hepatologist Relationship Specialty Start Date End Date Maya Torres, RIVET MAKER [address] [phone] PCP - General Family Medicine 08/27/22
--- OUTSIDE RECORDS SUMMARY | 2025-07-14 10:09 | XMS_ITS | Encounter Summary ---
Author Organization [employer] ([place], [place], [place], [place], [place]) Address [address] [place] [address] Care Team Providers Care Aviation Ordnance Officer Name Role Phone Maya Torres Reji BELCHER Primary Care Provider [phone] Encounter Details Date Type Department Care Team (Late st Contact Info) Description 10/27/2020 Transcribed Document [facility] [place] Pending sale to [facility] [place] [address] ProviderJean MD [address] [place] [address] Social History Tobacco Use Types [...] on filedocumented in this encounter Care Teams Aviation Ordnance Officer Relationship Specialty Start Date End Date Maya Torres, MANUFACTURING LEAD [address] [phone] PCP - General Family Medicine 08/27/22 documented as of this encounter
--- OUTSIDE RECORDS SUMMARY | 2025-07-14 10:09 | XMS_ITS | Encounter Summary ---
Author Organization [employer] ([place], [place], [place], [place], [place]) Address [address] [place] [address] Care Team Providers Care Hog Counter Name Role Phone Maya Torres Reji BELCHER Primary Care Provider [phone]- [phone] Encounter Details Date Type Department Care Team (Late st Contact Info) Description 10/27/2020 Transcribed Document [facility] Family Medicine [facility] [place] [address] ProviderJean MD [address] [place] [address] Social History Tobacco Use Types [...] on filedocumented in this encounter Care Teams Hog Counter Relationship Specialty Start Date End Date Maya Torres, SPECIAL MAKEUP FX ARTIST INSTRUCTOR [address] [phone] PCP - General Family Medicine 08/27/22 documented as of this encounter
--- OUTSIDE RECORDS SUMMARY | 2025-07-14 10:09 | XMS_ITS | Encounter Summary ---
Author Organization [employer] ([place], [place], [place], [place], [place]) Address [address] [place] [address] Care Team Providers Care Boiler Tube Blower Name Role Phone Maya Torres Reji BELCHER Primary Care Provider [phone]- [phone] Encounter Details Date Type Department Care Team (Late st Contact Info) Description 10/27/2020 Transcribed Document [facility] Family [facility] [place] [address] ProviderJean MD [address] [place] [address] Social History Tobacco Use Types [...] 12:04 EDT by Alina Easley Flex Team mobility architect Triage Across the Room Chief Complaint : pt here for abn bruising to lower abd ,states tore a muscle last week, had FU but not any better, states no blood thinners, pt c/o fullnes to abd, Triage Date/Time : 10/27/2020 12:04 EDT Alina Easley Flex Team Rn - 10/27/2020 12:04 EDT DCP GENERIC CODE Tracking Acuity : 2 - Emergent Tracking Group : [facility] ED Alina Easley Flex Team Rn - 10/27/2020 12:04 EDT Mode of Arrival : Ambulatory Transported to ED by : Private vehicle To Room Via : Wheelchair Accompanied By : Spouse ED Vital Signs : Document Height & Weight : Document ED Allergies : Document ED Reason for Visit : Document Tetanus Immunization : Less than 5 years Paid Search Marketing Analyst Needed : No Alina Easley Flex Team [...] Problems(Active) At risk for sleep apnea (IMO :35635738 ) Name of Problem: At risk for sleep apnea ; Recorder: SYSTEM, SYSTEM; Confirmation: Confirmed ; Classification: Medical ; Code: [id number] ; Last Updated: 06/16/2018 8:18 EST ; Life Cycle Date: 06/16/2018 ; Life Cycle Status: Active ; Vocabulary: IMO Enlarged prostate (SNOMED CT :078458750 ) Name of Problem: Enlarged prostate ; Recorder: Shavonne Jimenez RN; Confirmation: Confirmed ; Classification: Medical ; Code: [id number] ; Contributor System: PowerChart ; Last Updated: 06/16/2018 8:22 EST ; Life Cycle Date: 06/16/2018 ; Life Cycle Status: Active ; Vocabulary: SNOMED CT Hypertension (SNOMED CT :5923799738 ) Name of Problem: Hypertension ; Recorder: Shavonne Jimenez RN; Confirmation: Confirmed ; Classification: Medical ; Code: [id number] ; Contributor System: PowerChart ; Last Updated: 06/16/2018 8:21 EST ; Life Cycle Date: 06/16/2018 ; Life Cycle Status: Active ; Vocabulary: SNOMED CT Seasonal allergies (SNOMED CT :6149840401 ) Name of Problem: Seasonal allergies ; Recorder: Shavonne Jimenez RN; Confirmation: Confirmed ; Classification: Medical ; Code: [id number] ; Contributor System: AutopilotChart ; Last Updated: 06/16/2018 8:22 EST ; Life Cycle Date: 06/16/2018 ; Life Cycle Status: Active ; Vocabulary: SNOMED CT Diagnoses(Active) Medical screening exam Date: 10/27/2020 ; Diagnosis Type: Reason For Visit ; Confirmation: Complaint of ; Clinical Dx: Medical screening exam ; Classification: Medical ; Clinical Service: Non-Specified ; Code: PNED ; Probability: 0 ; Diagnosis Code: [id number] ED Height and Weight Height Source : Stated Height Entry Format : [place] Height, Feet : 5 ft(Converted to: 152 cm, 60 Inch) Height, Inches : 8 Inch(Converted to: 0 ft 8 Inch, 20.32 cm) Clinical Height : 172.72 cm Weight Source, ED : Critical estimated dosing weight Weight Entry Format : [place]les Weight, Pounds : 250 lb Clinical Dosing Weight : 113.64 kg Body Surface Area (BSA) : 2.25 m2 Body Mass Index : 38.1 kg/m2 (HI) [place] Body Weight (IBW) : 67.45 kg Alina [...] filedocumented in this encounter Care Teams Boiler Tube Blower Relationship Specialty Start Date End Date Maya Torres, RATINGS ANALYST [address] [phone] PCP - General Family Medicine 08/27/22 documented as of this encounter
--- OUTSIDE RECORDS SUMMARY | 2025-07-14 10:09 | XMS_ITS | Encounter Summary ---
Author Organization [employer] ([place], [place], [place], [place], [place]) Address [address] [place] [address] Care Team Providers Care Wicker Worker Name Role Phone Maya Torres Reji BELCHER Primary Care Provider +1- [phone] Encounter Details Date Type Department Care Team (Late st Contact Info) Description 10/27/2020 Transcribed Document [facility] Family Medicine [address] [place] [address] ProviderJean MD [address] [place] [address] Social History Tobacco Use Types [...] Sawant MD - 10/27/2020 6:36 PM CDT [facility] [place], [place] [id number] ISATU MENDIETA :1950 Visit Time:10/27/2020 Your Visit [...] to 3 days Where: [place] [address] [facility] (1) Allergies No Known Medication Allergies [...] 24HR 55 mcg/ inh nasal spray) 1 [place](s) Nasal Two Times A Day The home [...] and 14.9 ) ANC #: 12 K/uL [place] Percent Man: 2 % -- Normal range [...] ) Urine Bilirubin Dipstick: Negative Urine Specific Perry: 1.006 -- Normal range between ( 1.005 [...] or lying down. General instructions ??? Take zxgl-uat-dgbwcwz and prescription medicines only as told by [...] compression, and elevation. You may be given hqym-eah-dektumx medicines for pain. ??? Contact a health [...] provider. Document Revised: 02/22/2019 Document Reviewed: 02/22/2019 [employer] Patient Education ?? 2020 [employer]. Emergency Awareness and Preventative Care STROKE is [...] Assistance with quitting is available by contacting 5-532-FGTY-NOW. This is a free resource providing counseling, [...] was given the opportunity to ask questions. Patient/Staff Psychologist Name: Patient/Staff Psychologist Signature: Relationship to Patient: Clinician/Hospital Staff Psychologist Signature: Please Provide a Telephone Number Where You Can Be Reached: Is it Permissible To Leave a Message? Date: documented in this encounter Plan of Treatment Not on file documented as of this encounter Visit Diagnoses Not on filedocumented in this encounter Care Teams Wicker Worker Relationship Specialty Start Date End Date Maya Torres, SIMI [address] [phone] PCP - General Family Medicine 08/27/22 documented as of this encounter
--- OUTSIDE RECORDS SUMMARY | 2025-07-14 10:09 | XMS_ITS | Clinical Summary ---
Author Organization [facility] Address [address] [place] [address] Care Team Providers Care Filter Tank Operator Name Role Phone Unavailable Primary Care [...]
--- OUTSIDE RECORDS SUMMARY | 2025-07-14 10:09 | XMS_ITS | Encounter Summary ---
Author Organization [id number] ([place], [place], [place], [place], [place]) Address [address] [place] [address] Care Team Providers Care A R Specialist Name Role Phone Maya Torres Reji BELCHER Primary Care Provider [phone]- [phone] Encounter Details Date Type Department Care Team (Late st Contact Info) Description 10/27/2020 Transcribed Document [facility] Family Medicine [address] [place] [address] ProviderJean MD [address] [place], [place] [id number] Social History Tobacco Use Types Packs/Day Years Used Date Smoking Tobacco: Never Assessed Sex and Gender Information Value Date Recorded Sex Assigned at Not on file Legal Sex Male 5:19 PM CDT Gender Identity Not on file Sexual Orientation Not on file documented as of this encounter Miscellaneous Notes * [employer] Conversion Note - Jean ProviderMD - 10/27/2020 11:59 AM CDT [place] Suicide Severity Rating Scale (C-SSRS) Entered On: 10/27/2020 12:32 EDT Performed On: 10/27/2020 12:21 EDT by Jasmin Thornton RN [place] Suicide Severity Rating Scale (C-SSRS) CSSRS Past Month Wish to be : No CSSRS Past Month Suicidal Thoughts : No CSSRS Lifetime Suicide Behavior : No Suicide Severity Rating Score : 0 Suicide Severity Rating : No Additional Care Required at this time Jasmin Thornton RN - 10/27/2020 12:21 EDT Electronically signed by Becky Tejeda Conversion Divisional Merchandising Manager [employer] at 11/04/2022 3:15 PM CDT documented in this encounter Plan of Treatment Not on file documented as of this encounter Visit Diagnoses Not on filedocumented in this encounter Care Teams A R Specialist Relationship Specialty Start Date End Date Maya Torres, INTRUSION ANALYST [address] [phone] PCP - General Family Medicine 08/27/22 documented as of this encounter
--- OUTSIDE RECORDS SUMMARY | 2025-07-14 10:09 | XMS_ITS | Encounter Summary ---
Author Organization [employer] ([place], [place], [place], [place], [place]) Address [address] [place] [address] Care Team Providers Care Charcoal Unloader Name Role Phone Maya Torres APRN Primary Care Provider +1- [phone] Encounter Details Date Type Department Care Team (Late st Contact Info) Description 10/27/2020 Transcribed Document [facility] [place] [address] [place] [address] ProviderJean MD [address] [place] [address] Social History Tobacco Use Types [...] 10/27/2020 6:32 PM CDT Electronically signed by [facility] Conversion Manager Trainee Cerner at 11/04/2022 3:28 PM CDT documented in this encounter Plan of Treatment Not on file documented as of this encounter Visit Diagnoses Not on filedocumented in this encounter Care Teams Charcoal Unloader Relationship Specialty Start Date End Date Maya Torres APRN [address] [facility] [address] [place] [phone] PCP - General Family Medicine 08/27/22 documented as of this encounter
--- OUTSIDE RECORDS SUMMARY | 2025-07-14 10:09 | XMS_ITS | Encounter Summary ---
Author Organization [employer] ([place], [place], [place], [place], [place]) Address [address] [place] [address] Care Team Providers Care Legal Project Manager Name Role Phone Maya Torres SIMI Primary Care Provider +1- [phone] Encounter Details Date Type Department Care Team (Late st Contact Info) Description 10/27/2020 Transcribed Document [facility] [place] Family Medicine [facility] [place] [address] ProviderJean MD [address] [place] [address] Social History Tobacco Use Types Packs/Day Years [...] EDT Height Source Stated Height Entry Format [place] Height/Length, VIETNAMESE (ft) 5 ft Height/Length VIETNAMESE 8 Inch CLINICALHEIGHT 172.72 cm [place] Choice Body Weight 67.45 kg Weight Source, ED Critical estimated dosing weight Weight Entry Format [place] Weight Bruneian lb 250 lb CLINICALWEIGHT 113.64 kg Body [...] Color Yellow Urine Appearance Clear Urine Specific Delta 1.006 Urine pH Dipstick 6.5 Urine Leukocyte [...] % LOW ALYC # 1 K/uL NA [place] Percent Man 2 % LOW Eos Percent Man 1 % Baso Percent Man 1 % Myelo Percent Man 2 % HI RBC Morphology Normal Platelet Ct Estimate Adequate Slide Review Add Diff Man PT 9.9 Second(s) INR 0.9 PTT 25.2 Second(s) Procalcitonin <0.25 ng/mL SARS-CoV-2 (COVID19 PCR) Negative . Radiology results: Radiology Results (Last 48 hours) [id number] -- 10/27/2020 11:59 CT Abdomen Pelvis W [...] on filedocumented in this encounter Care Teams Legal Project Manager Relationship Specialty Start Date End Date Maya Torres, ORTHOPEDIC TECHNICIAN [address] [phone] PCP - General Family Medicine 08/27/22 documented as of this encounter
--- OUTSIDE RECORDS SUMMARY | 2025-07-14 10:09 | XMS_ITS | Encounter Summary ---
Author Organization [employer] ([place], [place], [place], [place], [place]) Address [address] [place] [address] Care Team Providers Care Diamond Cleaner Name Role Phone Maya Torres Reji BELCHER Primary Care Provider +1- [phone] Encounter Details Date Type Department Care Team (Late st Contact Info) Description 10/27/2020 Transcribed Document [facility] [place] [facility] [place] [address] ProvidereJan MD [address] [place], [place] [address] Social History Tobacco Use Types Packs/Day Years [...] on filedocumented in this encounter Care Teams Diamond Cleaner Relationship Specialty Start Date End Date Maya Torres, CUSTOMS ENTRY CLERK [address] [phone] PCP - General Family Medicine 08/27/22 documented as of this encounter
--- OUTSIDE RECORDS SUMMARY | 2025-07-14 10:09 | XMS_ITS | Encounter Summary ---
Author Organization [employer] ([place], [place], [place], [place], [place]) Address [address] [place] [address] Care Team Providers Care Health Systems Analyst Name Role Phone Maya Torres Reji BELCHER Primary Care Provider +1- [phone] Encounter Details Date Type Department Care Team (Late st Contact Info) Description 10/27/2020 Transcribed Document [facility] [place] [facility] [place] [address] ProviderJean MD [address] [place] [address] Social History Tobacco Use Types [...] 10/27/2020 12:55:00 EDT fentaNYL,50mcg IV Push,Left Antecubital [place] Pain Assessment Pain Scale Used : 0-10 [...] on filedocumented in this encounter Care Teams Health Systems Analyst Relationship Specialty Start Date End Date Maya Torres, SERVICE ATTENDANT CAFETERIA [address] [address] PCP - General Family Medicine 08/27/22 documented as of this encounter
--- OUTSIDE RECORDS SUMMARY | 2025-07-14 10:09 | XMS_ITS | Encounter Summary ---
Author Organization [employer] ([place], [place], [place], [place], [place]) Address [address] [place] [address] Care Team Providers Care Proj Mgr Name Role Phone Maya Torres APRN Primary Care Provider +1- [phone] Encounter Details Date Type Department Care Team (Late st Contact Info) Description 10/30/[address] [facility] [place] Family Medicine [facility] [place] [address] ProviderJean MD [address] [place] [address] Social History Tobacco Use Types [...] on filedocumented in this encounter Care Teams Proj Mgr Relationship Specialty Start Date End Date Maya Torres APRN [address] [facility] [address] [place] [address] PCP - General Family Medicine 08/27/22 documented as of this encounter
--- OUTSIDE RECORDS SUMMARY | 2025-07-14 10:10 | XMS_ITS | Encounter Summary ---
Author Organization [employer] ([place], [place], [place], [place], [place]) Address [address] [place] [address] Care Team Providers Care Account Support Rep Name Role Phone Maya Torres SIMI Primary Care Provider +1- [phone] Encounter Details Date Type Department Care Team (Late st Contact Info) Description 10/18/2020 Transcribed Document [facility] [place] [address] [place] [address] ProviderJean MD [address] [place], [place] [address] Social History Tobacco Use Types Packs/Day Years [...] Communication Barrier : None Primary Language : Sri Lankan Any Spiritual/Cultural Needs or Requests : No [...] on filedocumented in this encounter Care Teams Account Support Rep Relationship Specialty Start Date End Date Maya Torres, MECHANICAL APPLICATIONS ENGINEER [address] [phone] PCP - General Family Medicine 08/27/22 documented as of this encounter
--- OUTSIDE RECORDS SUMMARY | 2025-07-14 10:10 | XMS_ITS | Encounter Summary ---
Author Organization [employer] ([place], [place], [place], [place], [place]) Address [address] [place] [address] Care Team Providers Care Economics Professor Name Role Phone Maya Torres Reji BELCHER Primary Care Provider +1- [phone] Encounter Details Date Type Department Care Team (Late st Contact Info) Description 10/18/2020 Transcribed Document [facility] [place] [address] [place] [address] ProviderJean MD [address] [place] [address] Social History Tobacco Use Types [...] : Low risk (0) [place] Interventions : Glennie precautions for safety used Dee Ocampo, HOLA - 10/18/2020 19:41 EDT documented in this encounter Plan of Treatment Not on file documented as of this encounter Visit Diagnoses Not on filedocumented in this encounter Care Teams Economics Professor Relationship Specialty Start Date End Date Maya Torres, KEY ACCOUNT MANAGER [address] [phone] PCP - General Family Medicine 08/27/22 documented as of this encounter
--- OUTSIDE RECORDS SUMMARY | 2025-07-14 10:10 | XMS_ITS | Encounter Summary ---
Author Organization [employer] ([place], [place], [place], [place], [place]) Address [address] [place] [address] Care Team Providers Care Cloud Solutions Architect Name Role Phone Maya Torres Reji BELCHER Primary Care Provider +1- [phone] Encounter Details Date Type Department Care Team (Late st Contact Info) Description 06/16/2018 Transcribed Document [facility] [place] Family Medicine [facility] [place] [address] ProviderJean MD [address] [place], [place] [address] Social History Tobacco Use Types Packs/Day Years Used Date Smoking Tobacco: Never Assessed Sex and Gender Information Value Date Recorded Sex Assigned at Not on file Legal Sex Male 5:19 PM CDT Gender Identity Not on file Sexual Orientation Not on file documented as of this encounter Miscellaneous Notes * Cerner Conversion Note - Jean Sawant MD - 06/16/2018 8:43 AM WIND OPERATIONS MANAGER Patient: ISATU MENDIETA Age: 67 Years [...] 84 CXR- NAD Electronically signed by Ileana, [facility] Conversion Board Worker Cerner at 11/04/2022 3:24 PM CDT documented in this encounter Plan of Treatment Not on file documented as of this encounter Visit Diagnoses Not on filedocumented in this encounter Care Teams Cloud Solutions Architect Relationship Specialty Start Date End Date Maya Torres, ASSISTANT PROFESSOR OF FORESTRY [address] [phone] PCP - General Family Medicine 08/27/22 documented as of this encounter
--- OUTSIDE RECORDS SUMMARY | 2025-07-14 10:10 | XMS_ITS | Encounter Summary ---
Author Organization [employer] ([place], [place], [place], [place], [place]) Address [address] [place] [address] Care Team Providers Care Garage Supervisor Name Role Phone Maya Torres Reji BELCHER Primary Care Provider +1- [phone] Encounter Details Date Type Department Care Team (Late st Contact Info) Description 10/27/2020 Transcribed Document [facility] [place] [address] [place] [address] ProviderJean MD [address] [place] [address] Social History Tobacco Use Types [...] On: 10/27/2020 12:21 EDT by Jasmin Thornton GROUP ART SUPERVISOR General-Functional Assess Preferred Communication Mode : Verbal Communication Barrier : None Primary Language : Scottish Any Spiritual/Cultural Needs or Requests : No Currently in Unsafe Situation : No Jasmin Thornton RN - 10/27/2020 12:21 EDT Social Habits Smoking Status : Refused tobacco status screen Smokeless Tobacco Status : Refused tobacco status screen Desires Tobacco Cessation Calc : 0 Jsamin Thornton RN - 10/27/2020 12:21 EDT Social [...] Rhythm : Regular Nail Bed Color : [place] Chest Pain : No Capillary Refill, Left [...] mm Pupil Size, Right : 3 mm [place] Coma Scale Link : Open GCS Jasmin Thornton RN - 10/27/2020 12:21 EDT Diana Coma Diana Best Motor Response : Obey commands Diana Best Verbal Response : Oriented [place] Eye Opening Response : Spontaneous [place] Coma Score : 15 Jasmin Thornton RN - 10/27/2020 12:21 EDT Electronically signed by [facility] Conversion Tire Spotter Cerner at 11/04/2022 3:11 PM CDT documented in this encounter Plan of Treatment Not on file documented as of this encounter Visit Diagnoses Not on filedocumented in this encounter Care Teams Garage Supervisor Relationship Specialty Start Date End Date Maya Torres, UNEMPLOYMENT SPECIALIST [address] [phone] PCP - General Family Medicine 08/27/22 documented as of this encounter
--- OUTSIDE RECORDS SUMMARY | 2025-07-14 10:10 | XMS_ITS | Referral Summary ---
Author Organization [employer] ([place], [place], [place], [place], [place]) Address [address] [place] [address] Care Team Providers Care Bacon Stringer Name Role Phone Maya Torres APRN Primary Care Provider +1- [phone] Allergies No known active allergies Medications traZODone [...] on file Insurance [facility]IC[facility] Care Teams Bacon Stringer Relationship Specialty Start Date End Date Maya Torres, STEM FRAZER [address] [phone] PCP - General Family Medicine 08/27/22
--- OUTSIDE RECORDS SUMMARY | 2025-07-14 10:10 | XMS_ITS | Encounter Summary ---
Author Organization [employer] ([place], [place], [place], [place], [place]) Address [address] [place] [address] Care Team Providers Care Friction Paint Machine Tender Name Role Phone Maya Torres Reji BELCHER Primary Care Provider +1- [phone] Encounter Details Date Type Department Care Team (Late st Contact Info) Description 10/18/2020 Transcribed Document [facility] [place] [address] [place] [address] ProviderJean MD [address] [place], [place] [address] Social History Tobacco Use Types Packs/Day Years Used Date Smoking Tobacco: Never Assessed Sex and Gender Information Value Date Recorded Sex Assigned at Not on file Legal Sex Male 5:19 PM CDT Gender Identity Not on file Sexual Orientation Not on file documented as of this encounter Miscellaneous Notes * Cerner Conversion Note - Jean ProviderMD - 10/18/2020 7:05 PM CDT [place] Suicide Severity Rating Scale (C-SSRS) Entered On: 10/18/2020 19:42 EDT Performed On: 10/18/2020 19:41 EDT by Dee Ocampo RN [place] Suicide Severity Rating Scale (C-SSRS) CSSRS Past [...] on filedocumented in this encounter Care Teams Friction Paint Machine Tender Relationship Specialty Start Date End Date Maya Torres, SENIOR SQL DATABASE DEVELOPER [address] [phone] PCP - General Family Medicine 08/27/22 documented as of this encounter
--- OUTSIDE RECORDS SUMMARY | 2025-07-14 10:10 | XMS_ITS | Encounter Summary ---
Author Organization [employer] ([place], [place], [place], [place], [place]) Address [address] [place] [address] Care Team Providers Care Charging Board Operator Name Role Phone Maya Torres Reji BELCHER Primary Care Provider +1- [phone] Encounter Details Date Type Department Care Team (Late st Contact Info) Description 10/18/2020 Transcribed Document [facility] [place] Family [place] [facility] [place] [address] ProviderJean MD [address] [place] [address] Social History Tobacco Use Types [...] - 10/18/2020 9:38 PM CDT [facility] [place], [place] [id number] ISATU MENDIETA :1950 Visit Time:10/18/2020 Your Visit [...] to ED if symptoms worsen. Where: [address] [facility] [address] [place] [address] Business (1) Follow Up with JACKIE LEONARD When Within 2 to 3 days Allergies No Known Medication Allergies Immunizations This Visit No Immunizations Found Medications What How Much When Instructions Next Dose codeine-guaifenesin (codeine-guaifenesin 6.3 mg-100 mg/ 5 mL oral liquid) 7.5 Milliliter(s) Oral Every 6 Hours as needed for for cough Pickup at [facility] dextromethorphan-guaifenesin (dextromethorphan-guaifenesin 5 mg-100 [...] 24HR 55 mcg/ inh nasal spray) 1 [place](s) Nasal Two Times A Day Pharmacy Information [facility]: [address] [place], [place] [phone] The home medications listed are only as [...] safe for you. General instructions ??? Take mejg-fcw-petqhda and prescription medicines only as told by [...] Reviewed: 01/04/2019 Vince Patient Education ?? 2020 [employer] Emergency Awareness and Preventative Care STROKE is [...] Assistance with quitting is available by contacting 7-055-FOIJ-NOW. This is a free resource providing counseling, [...] was given the opportunity to ask questions. Patient/Paint Formulator Name: Patient/Paint Formulator Signature: Relationship to Patient: Clinician/Hospital Paint Formulator Signature: Please Provide a Telephone Number Where You Can Be Reached: Is it Permissible To Leave a Message? Date: documented in this encounter Plan of Treatment Not on file documented as of this encounter Visit Diagnoses Not on filedocumented in this encounter Care Teams Charging Board Operator Relationship Specialty Start Date End Date Maya Torres, SIMI [address] [phone] PCP - General Family Medicine 08/27/22 documented as of this encounter
--- OUTSIDE RECORDS SUMMARY | 2025-07-14 10:10 | XMS_ITS | Clinical Summary ---
[facility] Address [address] [place] [address] Care Team Providers Care Payment Specialist Name Role Phone Maya Torres Primary Care Provider + [phone] Allergies No known active allergies Medications DULoxetine [...] Completed 10/27/2020 Medical Devices Implanted Type Area Igniter Assembler Device Identifier Shelf Expiration Date Model / Serial / Lot Ld Stim Precsn Trial Lnr 8contct St/Tp50 - [id number] - [id number] Implanted:Qty : 1 on 10/05/2022 by Jerome Morrissey MD at [facility] Implant N/A: Spine Thoracic [employer] 08/30/2024 [id number] / [id number] / Ld Stim Precsn Trial Lnr 8contct St/Tp50 - [id number] - [id number] Implanted:Qty : 1 on 10/05/2022 by Jerome Morrissey MD at [facility] Implant N/A: Spine Thoracic [employer] 08/26/2024 [id number] / [id number] / Anchr Ld Scs Clikx Ea/St/2 - [id number] Implanted:Qty : 1 on 10/05/2022 by Jerome Morrissey MD at [facility] Implant N/A: Spine Thoracic [employer] 01/06/2024 [id number] / / [id number] Kt Ipg Wavewriter Alpha 16/Contct - [id number] - [id number] Implanted:Qty : 1 on 10/05/2022 by Jerome Morrissey MD at [facility] Implant N/A: Spine Thoracic [employer] [id number] 09/13/2024 [id number] / [id number] / [id number] Insurance MEDICARE A & B Member Subscriber Plan / Payer (Ef fective 2017-Present) Name:Stephane Mendieta Member ID:[id number] Relation to Subscriber:Self Name:Stephane Mendieta Subscriber ID:[id number] Payer ID:[id number] Group ID:Not on file Type:Not on file Address: [facility] [id number] [place] [id number] [facility] Droplr Care Teams Payment Specialist Relationship Specialty Start Date End Date Maya Torres Kaylyn [place] [phone] PCP - General Nurse Practitioner 09/28/22
--- OUTSIDE RECORDS SUMMARY | 2025-07-14 10:10 | XMS_ITS | Encounter Summary ---
Author Organization [employer] ([place], [place], [place], [place], [place]) Address [address] [place] [address] Care Team Providers Care Court Messenger Name Role Phone Maya Torres Reji BELCHER Primary Care Provider +1- [phone] Encounter Details Date Type Department Care Team (Late st Contact Info) Description 10/18/2020 Transcribed Document [facility] [place] [facility] [place] [address] ProviderJean MD [address] [place], [place] [id number] Social History Tobacco Use Types Packs/Day Years [...] On: 10/18/2020 19:09 EDT by SUSHMA MARQUEZ, MASTIC FLOOR LAYER Triage Across the Room Chief Complaint : [...] : 3 - Urgent Tracking Group : [facility] ED SUSHMA MARQUEZ RN - 10/18/2020 [...] Problems(Active) At risk for sleep apnea (IMO :86800039 ) Name of Problem: At risk for sleep apnea ; Recorder: SYSTEM, SYSTEM; Confirmation: Confirmed ; Classification: Medical ; Code: [id number] ; Last Updated: 06/16/2018 8:18 EST ; Life Cycle Date: 06/16/2018 ; Life Cycle Status: Active ; Vocabulary: IMO Enlarged prostate (SNOMED CT :469969738 ) Name of Problem: Enlarged prostate ; Recorder: Shavonne Jimenez RN; Confirmation: Confirmed ; Classification: Medical ; Code: [id number] ; Contributor System: SocialiteChart ; Last Updated: 06/16/2018 8:22 EST ; Life Cycle Date: 06/16/2018 ; Life Cycle Status: Active ; Vocabulary: SNOMED CT Hypertension (SNOMED CT :3887314487 ) Name of Problem: Hypertension ; Recorder: Shavonne Jimenez RN; Confirmation: Confirmed ; Classification: Medical ; Code: [id number] ; Contributor System: SocialiteChart ; Last Updated: 06/16/2018 8:21 EST ; Life Cycle Date: 06/16/2018 ; Life Cycle Status: Active ; Vocabulary: SNOMED CT Seasonal allergies (SNOMED CT :9386801931 ) Name of Problem: Seasonal allergies ; Recorder: Shavonne Jimenez RN; Confirmation: Confirmed ; Classification: Medical ; Code: [id number] ; Contributor System: PowerChart ; Last Updated: 06/16/2018 8:22 EST ; Life Cycle Date: 06/16/2018 ; Life Cycle Status: Active ; Vocabulary: SNOMED CT Diagnoses(Active) Rib/trunk pain-swelling Date: 10/18/2020 ; Diagnosis Type: Reason For Visit ; Confirmation: Complaint of ; Clinical Dx: Rib/trunk pain-swelling ; Classification: Medical ; Clinical Service: Emergency medicine ; Code: PNED ; Probability: 0 ; Diagnosis Code: [id number] ED Height and Weight Height Source : Stated Height Entry Format : [place] Height, Feet : 5 ft(Converted to: 152 cm, 60 Inch) Height, Inches : 8 Inch(Converted to: 0 ft 8 Inch, 20.32 cm) Clinical Height : 172.72 cm Weight Source, ED : Critical estimated dosing weight Weight Entry Format : [place] Weight, Pounds : 240 lb Clinical Dosing Weight : 109.09 kg Body Surface Area (BSA) : 2.21 m2 Body Mass Index : 36.6 kg/m2 (HI) [place] Body Weight (IBW) : 67.45 kg SUSHMA MARQUEZ RN - 10/18/2020 19:09 EDT documented in this encounter Plan of Treatment Not on file documented as of this encounter Visit Diagnoses Not on filedocumented in this encounter Care Teams Court Messenger Relationship Specialty Start Date End Date Maya Torres, ANALYTICS ARCHITECT [address] [phone] PCP - General Family Medicine 08/27/22 documented as of this encounter
--- OUTSIDE RECORDS SUMMARY | 2025-07-14 10:10 | XMS_ITS | Encounter Summary ---
Author Organization [employer] ([place], [place], [place], [place], [place]) Address [address] [place] [address] Care Team Providers Care String Laster Name Role Phone Maya Torres Reji BELCHER Primary Care Provider +1- [phone] Encounter Details Date Type Department Care Team (Late st Contact Info) Description 10/18/2020 Transcribed Document [facility] [place] [facility] [address] ProviderJean MD [address] [place], [place] [address] Social History Tobacco Use Types Packs/Day Years [...] 10/18/2020 21:39 EDT Electronically signed by Ileana [facility] Conversion Cow Trimmer Cerner at 11/04/2022 3:31 PM CDT documented in this encounter Plan of Treatment Not on file documented as of this encounter Visit Diagnoses Not on filedocumented in this encounter Care Teams String Laster Relationship Specialty Start Date End Date Maya Torres, GERIATRIC CASE MANAGER [address] [phone] PCP - General Family Medicine 08/27/22 documented as of this encounter
--- OUTSIDE RECORDS SUMMARY | 2025-07-14 10:10 | XMS_ITS | Patient Health Record ---
Author Organization [facility] Address [address] [facility] [address] [place] [address] Care Team Providers Care Unhairer Name Role Phone Jerome Morrissey II Unavailable Michael COLEMAN -Issa Barry MD Unavailable [phone] Allergies No Known Allergies Reason For Referral [...] Status Risk Notes Problem Chronic pain syndrome (165432922) Chronic pain syndrome (G89.4) Active confirmed Problem Complex regional pain syndrome of lower limb (disorder) (379924162) Complex regional pain syndrome I of unspecified lower limb (G90.529) Active confirmed Problem Cervical spondylosis without myelopathy (331185312) Other spondylosis with radiculopathy, cervical region (M47.22) Active confirmed Problem Cervical spondylosis without myelopathy (522899753) Spondylosis without myelopathy or radiculopathy, cervical region (M47.812) Active confirmed Problem Lumbosacral spondylosis without myelopathy (12468328) Spondylosis without myelopathy or radiculopathy, lumbar region (M47.816) Active confirmed Problem Cervicalgia (71148156) Cervicalgia (M54.2) Active confirmed Problem Post-laminectom y syndrome (28768980) Postlaminectomy syndrome, not elsewhere classified (M96.1) Active confirmed Problem Long-term current use of drug therapy (762979390) Other oysterman (current) drug therapy (Z79.899) Active confirmed Problem Lumbar spondylosis (083431557) lumbar spondylosis (M47.816) Active confirmed Vital Signs Heart Rate 80 /min 10/19/2024 Blood pressure diastolic 75 mm Hg 10/19/2024 Height 69 in 10/19/2024 Blood pressure systolic 158 mm Hg 10/19/2024 Weight 250 lbs 10/19/2024 BMI 36.91 kg/m2 10/19/2024 Encounters Encounter Location Date Provider Diagnosis [facility] [address] [facility] [address] [place] [address] 10/19/2024 Jerome Morrissey [facility] (current) drug therapy [...] once again for the long-term. 10/19/2024 Other oysterman (current) drug therapy (ICD-10 - Z79.899) 04/02/2024 1. Discontinue [place] 5/325mg QD PRN 2. FU PRn Mr. [...] Test ANALYZER 10/19/2024 Urine Test ANALYZER 01/03/2024 Insurance Providers Payer Name Payer Address Payer Phone Subscriber Number Group Number Insured Name Patient Relationship to Insured Coverage Start Date Coverage End Date [place] [address] [place] [address] [id number] Stephane Mendieta Self - patient is the insured 8 [employer] Medicare Supplement [address] [place] [phone] [id number] Stephane Mendieta Self - patient is the insured 8 Medical (General) History Medical History History ICD Code anxiety / Managed by PCP Surgical History Surgery Date(Month/Year) Back surgery / Dr. Rodriguez 09/2019 right knee replacement
--- OUTSIDE RECORDS SUMMARY | 2025-07-14 10:10 | XMS_ITS | Encounter Summary ---
Author Organization [employer] ([place], [place], [place], [place], [place]) Address [address] [place] [address] Care Team Providers Care Cook Fruit Name Role Phone Maya Torres APRN Primary Care Provider +1- [phone] Encounter Details Date Type Department Care Team (Late st Contact Info) Description 10/18/2020 Transcribed Document [facility] Family Medicine [address] [place] [address] ProviderJean MD [address] [place] [address] Social History Tobacco Use Types [...] 10/18/2020 9:20 PM CDT Electronically signed by [facility] Conversion Aquacultural Worker Supervisor Cerner at 11/04/2022 3:18 PM CDT documented in this encounter Plan of Treatment Not on file documented as of this encounter Visit Diagnoses Not on filedocumented in this encounter Care Teams Cook Fruit Relationship Specialty Start Date End Date Maya Torres APRN [address] [facility] [address] [place] [address] PCP - General Family Medicine 08/27/22 documented as of this encounter
[2025-07-14] MEDS: DAPTOmycin 1,000 MG in 0.9 % SODIUM CHLORIDE 50 ML 100 MG IV (10:33)
[2025-07-14 10:35] VITALS: BP 153/78; PULSE 75; RESP 20; TEMP 36.8; O2SAT 95
[2025-07-14 11:13] VITALS: BP 152/76; PULSE 75; RESP 12; TEMP 36.4; O2SAT 96
== END 2025-07-14 23:59 | disposition home or self-care (01) ==
LOC: INF 10:07
PROVIDERS: PCP Nurse Practitioner; Visit Provider Internal Medicine Infectious Disease
DX: T85.73 Infection and inflammatory reaction due to nervous system devices, implants and graft (principal)
CPT/HCPCS: 96365; J0878

== ENCOUNTER 2025-07-15 10:24 | Outpatient (CLI) | payer MEDICARE, OTHER, SELFPAY ==
--- OUTSIDE RECORDS SUMMARY | 2022-12-01 11:56 | XMS_ITS | Encounter Summary ---
[facility] Address [address] [place] [address] Care Team Providers Care Radiology Therapist Name Role Phone Maya Torres Primary Care Provider + [phone] Encounter Details Date Type Department Care Team (Late st Contact Info) Description 12/01/2022 12:56 PM EDT Hospital Encounter [facility] PULMONARY & CRITICAL CARE MEDICINE [facility] [place] [address] Social History Tobacco Use Types [...] Narrative 12/01/2022 1:31 PM EDT Stephane Annton [id number] 12/01/2022 Chest X-Ray PA & Lateral Indication: [...] on filedocumented in this encounter Care Teams Radiology Therapist Relationship Specialty Start Date End Date Maya Torres [address] [place] [address] PCP - General Nurse Practitioner 09/28/22 documented as of this encounter
--- OUTSIDE RECORDS SUMMARY | 2024-04-27 06:30 | XMS_ITS ---
Author Organization [facility] Address [address] [place] [address] Care Team Providers Care Tobacco Drying Machine Operator Name Role Phone Jerome Morrissey II Unavailable Michael COLEMAN -Pramod Velazquez MD, Issa Unavailable [phone] Allergies No Known Allergies REASON FOR VISIT [...] Diagnosis [facility] [address] [place] [address] 04/27/2024 Jerome Morrissey Other care home (current) drug therapy Z79.899 ; Spondylosis without myelopathy or radiculopathy, cervical region M47.812 ; Postlaminectomy syndrome, not elsewhere classified M96.1 and Spondylosis without myelopathy or radiculopathy, lumbar region M47.816 Assessments Encounter Date Diagnosis (ICD Code) Assessment Notes Treatment Notes Treatment Clinical Notes Section Notes 04/27/2024 Other terminal supervisor (current) drug therapy (ICD-10 - Z79.899) 04/02/2024 1. Discontinue [place] 5/325mg QD PRN 2. FU 1 month with [facility] 3. [facility] to change SCS settings 4. S/P [...] no relief with TFESI LT in January. [employer] rep in the room changing SCS settings. [...] no relief with TFESI LT in January. [employer] rep in the room changing SCS settings. [...] no relief with TFESI LT in January. [employer] rep in the room changing SCS settings. [...] no relief with TFESI LT in January. [employer] rep in the room changing SCS settings. [...] Of Treatment Treatment Notes Assessment Notes Other care home (current) drug therapy 04/02/2024 1. Discontinue [place] 5/325mg QD PRN 2. FU 1 month with [facility] 3. [employer] rep to change SCS settings 4. S/P [...] Stephane YANEZ ADOB: 3 (74 yo M)Acc No.[id number]:04/27/2024 FollowUP Patient: Stephane RODRIGUEZ Provider: Reji Morrissey II, M.D. :1950 A ge:73 Y S ex:Male Date:04/27/2024 Address:[address] [place], [place] [phone] Subjective: * Chief Complaints: * 1 . [...] relief for 1 hour 0 08/09/2022SCS Trial [place] 80% relief for 1 week 0 02/13/2024#1 [...] * Vitals: * Examination: G eneral Examination: Nurse/Malt House Kiln Operator: Phill McnamaraMA-Shamar)Madeleine 04/02/2024 9:48:48 AM > . [...] Assessment: * Assessment: 1. O ther terminal supervisor (current) drug therapy - Z79.899 (Primary) 2 [...] no relief with TFESI LT in January. [employer] rep in the room changing SCS settings. [...] signature of Raymon Morrissey II, M.D. on 07/15/2025 at 09:40 AM BRIM GREASER OPERATOR Sign off status: Pending * Provider: Reji Morrissey II, M.D. Date: 1 Generated for Irwin spears/Davon/Bentleyitting on: 1 09:40 AM BRIM GREASER OPERATOR History and Physical Notes * HPI (History [...] to advanced foraminal encroachment PHYSICAL/AQUA THERAPY/DME/OTHER HISTORY: 7307-1657 Chiropractic therapy program complete 06/2023-Present: Patient continues a prescribed home exercise program 3-5 times per week which includes walking, lumbar stretches, and alternating leg lifts PERTINENT SURGICAL EVALUATIONS/SPECIALIST CONSULTS 04/2022 - Dr. Rodriguez - No surgery recommened, recommends SCS trial PREVIOUS INJECTION\PROCEDURE HISTORY: 08/21/2019 #1 SIJI RT 20% relief for 1 hour 08/09/2022 SCS Trial [place] 80% relief for 1 week 02/13/2024 #1 TFESI LT L5/S1 0% relief PREVIOUS PAIN CLINIC CARE: Denies COMPLIANCE RISK ASSESSMENT AND STRATIFICATI ON: RISK GROUP: MODERATE RISK URINE DRUG TESTIN01/11/2024 Screen Expected Definitive Expected 02/08/2024 Screen Expected Definitive Expected 04/02/2024 Screen Expected MONITORING: Morphine Equivalent (MME): 0 HANY reviewed today and appropriate TESTING/RISK ASSESSMENTS ORT Score/Result: TODAYS PAIN EVALUATION MEDICATION FOLLOW UP: Micaela ermynt does not wnat any more opioids CURRENT [...] wi th an antalgic gait, pitched forward Nurse/Malt House Kiln Operator: Mendez SHARMA-Shamar)Francisco J 04/02/2024 9:48:48 AM > [...]
--- OUTSIDE RECORDS SUMMARY | 2024-05-28 10:30 | XMS_ITS ---
Author Organization [facility] Address [address] [place] [address] Care Team Providers Care Yarn Man Name Role Phone Jerome Morrissey II Unavailable Michael COLEMAN -Pramod Velazquez MD, Issa Unavailable [phone] Allergies No Known Allergies REASON FOR VISIT [...] Diagnosis [facility] [address] [address] 05/28/2024 Jerome Morrissey Other terminologist (current) drug therapy Z79.899 ; Spondylosis without myelopathy or radiculopathy, cervical region M47.812 ; Postlaminectomy syndrome, not elsewhere classified M96.1 and Spondylosis without myelopathy or radiculopathy, lumbar region M47.816 Assessments Encounter Date Diagnosis (ICD Code) Assessment Notes Treatment Notes Treatment Clinical Notes Section Notes 05/28/2024 Other mcfp (current) drug therapy (ICD-10 - Z79.899) 04/02/2024 1. Discontinue [place] 5/325mg QD PRN 2. FU 1 month with [facility] 3. [employer] rep to change SCS settings 4. S/P [...] no relief with TFESI LT in January. [employer] rep in the room changing SCS settings. [...] no relief with TFESI LT in January. [employer] rep in the room changing SCS settings. [...] no relief with TFESI LT in January. [employer] in the room changing SCS settings. Patient [...] no relief with TFESI LT in January. [employer] rep in the room changing SCS settings. [...] Of Treatment Treatment Notes Assessment Notes Other terminologist (current) drug therapy 04/02/2024 1. Discontinue [place] 5/325mg QD PRN 2. FU 1 month with [facility] 3. [employer] rep to change SCS settings 4. S/P [...] Stephane MENDIETA ADOB: 3 (74 yo M)Acc No.[id number]:05/28/2024 Progress NOte Patient: Stephane RODRIGUEZ Provider: Reji Morrissey II, M.D. :1950 A ge:73 Y S ex:Male Date:05/28/2024 Address:[address] [place] [phone] Subjective: * Chief Complaints: * 1 . [...] for 1 hour 0 08/09/2022 SCS Trial Obipex80% relief for 1 week 0 02/08/2024- #1 [...] * Vitals: * Examination: G eneral Examination: Nurse/Fine Craft Artist: Madeleine Gonzalez (MA-Lex) 04/02/2024 9:48:48 AM > [...] scars. Assessment: * Assessment: 1. O ther mcfp (current) drug therapy - Z79.899 (Primary) 2 [...] no relief with TFESI LT in January. [employer] rep in the room changing SCS settings. [...] Raymon Morrissey II, M.D. on 07/15/2025 at 09:41 AM MEDIA PRODUCTION SUPPORT MANAGER Sign off status: Pending * Provider: Reji Morrissey II, M.D. Date: 07/28/2023 Generated for Irwin spears/Davon/Nicholasransmitting on: 09:41 AM MEDIA PRODUCTION SUPPORT MANAGER History and Physical Notes * HPI (History [...] to advanced foraminal encroachment PHYSICAL/AQUA THERAPY/DME/OTHER HISTORY: 2640-5811 Chiropractic therapy program complete 06/2023-Present: Patient continues a prescribed home exercise program 3-5 times per week which includes walking, lumbar stretches, and alternating leg lifts PERTINENT SURGICAL EVALUATIONS/SPECIALIST CONSULTS 04/2022 - Dr. Rodriguez - No surgery recommened, recommends SCS trial PREVIOUS INJECTION\PROCEDURE HISTORY: 08/21/2019 #1 SIJAYLYN RT 20% relief for 1 hour 08/09/2022 SCS Trial [place] 80% relief for 1 week 02/08/2024 - [...] wi th an antalgic gait, pitched forward Nurse/Fine Craft Artist: Mendez (ALEJANDRINA-Shamar)Francisco J 04/02/2024 9:48:48 AM > [...]
[2025-07-15 10:40] VITALS: BP 158/79; PULSE 75; RESP 18; TEMP 36.8; O2SAT 99
--- OUTSIDE RECORDS SUMMARY | 2025-07-15 10:40 | XMS_ITS ---
Care Plan - [facility] Created on: July 15, 2025 Stephane Mendieta : 1950 Sex: Male Author Organization [facility] Address [address] [place] [address] Phone Care Team Providers Care Toxics Program Officer Name Role Phone Jose Cruz COLEMAN, Domingo Jett Unavailable + [phone] Olga Licea APRN Unavailable [phone]
--- OUTSIDE RECORDS SUMMARY | 2025-07-15 10:40 | XMS_ITS | Encounter Summary ---
Author Organization [employer] ([place], [place], [place], [place], [place]) Address [address] [place] [address] Care Team Providers Care Director Business Intelligence Name Role Phone Maya Torres Reji BELCHER Primary Care Provider +1- [phone] Encounter Details Date Type Department Care Team (Late st Contact Info) Description 10/27/2020 Transcribed Document [facility] [place] [address] [place] [address] ProviderJean MD [address] [place] [address] Social History Tobacco Use Types [...] Sawant MD - 10/27/2020 6:36 PM CDT [facility] [place], [place] [address] ISATU MENDIETA :1950 Visit Time:10/27/2020 Your Visit [...] to 3 days Where: [place] [place] [address] [facility] (1) Allergies No Known Medication [...] 24HR 55 mcg/ inh nasal spray) 1 Higden(s) Nasal Two Times A Day The home [...] and 14.9 ) ANC #: 12 K/uL [place] Percent Man: 2 % -- Normal range [...] ) Urine Bilirubin Dipstick: Negative Urine Specific [place]: 1.006 -- Normal range between ( 1.005 [...] or lying down. General instructions ??? Take eeio-jmn-srfruul and prescription medicines only as told by [...] compression, and elevation. You may be given uehh-huc-jqcswfz medicines for pain. ??? Contact a health [...] provider. Document Revised: 02/22/2019 Document Reviewed: 02/22/2019 [employer] Patient Education ?? 2020 [employer]. Emergency Awareness and Preventative Care STROKE is [...] Assistance with quitting is available by contacting 5-693-DDPO-NOW. This is a free resource providing counseling, [...] was given the opportunity to ask questions. Patient/Stone And Concrete Washer Name: Patient/Stone And Concrete Washer Signature: Relationship to Patient: Clinician/Hospital Stone And Concrete Washer Signature: Please Provide a Telephone Number Where You Can Be Reached: Is it Permissible To Leave a Message? Date: documented in this encounter Plan of Treatment Not on file documented as of this encounter Visit Diagnoses Not on filedocumented in this encounter Care Teams Director Business Intelligence Relationship Specialty Start Date End Date Maya Torres, SIMI [address] [phone] PCP - General Family Medicine 08/27/22 documented as of this encounter
--- OUTSIDE RECORDS SUMMARY | 2025-07-15 10:40 | XMS_ITS | Encounter Summary ---
Author Organization [employer] ([place], [place], [place], [place], [place]) Address [address] [place] [address] Care Team Providers Care Set Making Machine Operator Name Role Phone Maya Torres Reji BELCHER Primary Care Provider +1- [phone] Encounter Details Date Type Department Care Team (Late st Contact Info) Description 10/27/2020 Transcribed Document [facility] [place] [address] [place] [address] ProviderJean MD [address] [place], [place] [...] 10/27/2020 12:55:00 EDT fentaNYL,50mcg IV Push,Left Antecubital [place] Pain Assessment Pain Scale Used : 0-10 [...] form. Electronically signed by Becky Tejeda Conversion Solar Field Installation Crew Member Vita at 11/04/2022 3:13 PM CDT documented in this encounter Plan of Treatment Not on file documented as of this encounter Visit Diagnoses Not on filedocumented in this encounter Care Teams Set Making Machine Operator Relationship Specialty Start Date End Date Maya Torres, MAT MACHINE OPERATOR [address] [address] PCP - General Family Medicine 08/27/22 documented as of this encounter
--- OUTSIDE RECORDS SUMMARY | 2025-07-15 10:40 | XMS_ITS | Referral Summary ---
Author Organization [employer] ([place], [place], [place], [place], [place]) Address [address] [place] [address] Care Team Providers Care Sheet Rock Finisher Name Role Phone Maya Torres APRN Primary Care Provider +1- [phone] Allergies No known active allergies Medications traZODone [...] Date Jan rded Speak language other than Greek at home Not on file 08/04/2023 Want [...] on file Insurance [facility] Care Teams Sheet Rock Finisher Relationship Specialty Start Date End Date Maya Torres, SPECIAL TECHNICAL OPERATIONS OFFICER [address] [phone] PCP - General Family Medicine 08/27/22
--- OUTSIDE RECORDS SUMMARY | 2025-07-15 10:40 | XMS_ITS | Encounter Summary ---
Author Organization [employer] ([place], [place], [place], [place], [place]) Address [address] [place] [address] Care Team Providers Care Pharmacy Benefit Manager Name Role Phone Maya Torres Reji BELCHER Primary Care Provider +1- [phone] Encounter Details Date Type Department Care Team (Late st Contact Info) Description 10/27/2020 Transcribed Document [facility] [address] [place] [address] ProviderJean MD [address] [place] [address] Social History Tobacco Use Types [...] on filedocumented in this encounter Care Teams Pharmacy Benefit Manager Relationship Specialty Start Date End Date Maya Torres, HAND INSERTER OPERATOR [address] [phone] PCP - General Family Medicine 08/27/22 documented as of this encounter
--- OUTSIDE RECORDS SUMMARY | 2025-07-15 10:40 | XMS_ITS | Encounter Summary ---
Author Organization [employer] ([place], [place], [place], [place], [place]) Address [address] [place] [address] Care Team Providers Care Chief Dispatcher Service Name Role Phone Maya Torres APRN Primary Care Provider +1- [phone] Encounter Details Date Type Department Care Team (Late st Contact Info) Description 10/30/2020 Transcribed Document [facility] [place] [facility] [place] [address] ProviderJean MD [address] [place] [address] Social History Tobacco Use [...] on filedocumented in this encounter Care Teams Chief Dispatcher Service Relationship Specialty Start Date End Date Maya Torres APRN [address] [facility] [address] [place] [address] PCP - General Family Medicine 08/27/22 documented as of this encounter
--- OUTSIDE RECORDS SUMMARY | 2025-07-15 10:40 | XMS_ITS | Encounter Summary ---
Author Organization [employer] ([place], [place], [place], [place], [place]) Address [address] [place] [address] Care Team Providers Care Human Resources Receptionist Name Role Phone Maya Torres Reji BELCHER Primary Care Provider +1- [phone] Encounter Details Date Type Department Care Team (Late st Contact Info) Description 10/27/2020 Transcribed Document [facility] [place] [facility] [address] ProviderJean MD [address] [place] [address] Social History Tobacco Use Types [...] 12:04 EDT by Alina Easley Flex Team major general Triage Across the Room Chief Complaint : pt here for abn bruising to lower abd ,states tore a muscle last week, had FU but not any better, states no blood thinners, pt c/o fullnes to abd, Triage Date/Time : 10/27/2020 12:04 EDT Alina Easley Flex Team Rn - 10/27/2020 12:04 EDT DCP GENERIC CODE Tracking Acuity : 2 - Emergent Tracking Group : [facility] ED Alina Easley Flex Team Rn - 10/27/2020 12:04 EDT Mode of Arrival : Ambulatory Transported to ED by : Private vehicle To Room Via : Wheelchair Accompanied By : Spouse ED Vital Signs : Document Height & Weight : Document ED Allergies : Document ED Reason for Visit : Document Tetanus Immunization : Less than 5 years [place] [employer] Group Leader Needed : No Alina Easley Flex Team [...] Problems(Active) At risk for sleep apnea (IMO :63544670 ) Name of Problem: At risk for sleep apnea ; Recorder: SYSTEM, SYSTEM; Confirmation: Confirmed ; Classification: Medical ; Code: 27438734 ; Last Updated: 06/16/2018 8:18 EST ; Life Cycle Date: 06/16/2018 ; Life Cycle Status: Active ; Vocabulary: IMO Enlarged prostate (SNOMED CT :235296057 ) Name of Problem: Enlarged prostate ; Recorder: Shavonne Jimenez RN; Confirmation: Confirmed ; Classification: Medical ; Code: 504553036 ; Contributor System: PowerChart ; Last Updated: 06/16/2018 8:22 EST ; Life Cycle Date: 06/16/2018 ; Life Cycle Status: Active ; Vocabulary: SNOMED CT Hypertension (SNOMED CT :4330904688 ) Name of Problem: Hypertension ; Recorder: Shavonne Jimenez RN; Confirmation: Confirmed ; Classification: Medical ; Code: 5177231789 ; Contributor System: PowerChart ; Last Updated: 06/16/2018 8:21 EST ; Life Cycle Date: 06/16/2018 ; Life Cycle Status: Active ; Vocabulary: SNOMED CT Seasonal allergies (SNOMED CT :3279037076 ) Name of Problem: Seasonal allergies ; Recorder: Shavonne Jimenez RN; Confirmation: Confirmed ; Classification: Medical ; Code: 6892540042 ; Contributor System: [employer] FORMING TECHNOLOG[employer]Chart ; Last Updated: 06/16/2018 8:22 EST ; Life Cycle Date: 06/16/2018 ; Life Cycle Status: Active ; Vocabulary: SNOMED CT Diagnoses(Active) Medical screening exam Date: 10/27/2020 ; Diagnosis Type: Reason For Visit ; Confirmation: Complaint of ; Clinical Dx: Medical screening exam ; Classification: Medical ; Clinical Service: Non-Specified ; Code: PNED ; Probability: 0 ; Diagnosis Code: [id number] ED Height and Weight Height Source : Stated Height Entry Format : [place] Height, Feet : 5 ft(Converted to: 152 cm, 60 Inch) Height, Inches : 8 Inch(Converted to: 0 ft 8 Inch, 20.32 cm) Clinical Height : 172.72 cm Weight Source, ED : Critical estimated dosing weight Weight Entry Format : [place] Weight, Pounds : 250 lb Clinical Dosing Weight : 113.64 kg Body Surface Area (BSA) : 2.25 m2 Body Mass Index : 38.1 kg/m2 (HI) [place] Body Weight (IBW) : 67.45 kg Alina [...] on filedocumented in this encounter Care Teams Human Resources Receptionist Relationship Specialty Start Date End Date Maya Torres, SUPERVISOR BLOOD [address] [phone] PCP - General Family Medicine 08/27/22 documented as of this encounter
--- OUTSIDE RECORDS SUMMARY | 2025-07-15 10:40 | XMS_ITS | Encounter Summary ---
Author Organization [employer] ([place], [place], [place], [place], [place]) Address [address] [place] [address] Care Team Providers Care Accounting Machine Mechanic Name Role Phone Maya Torres APRN Primary Care Provider +1- [phone] Encounter Details Date Type Department Care Team (Late st Contact Info) Description 10/27/2020 Transcribed Document [facility] [place] [address] [place] [address] ProviderJean MD [address] [place] [address] Social History Tobacco Use Types [...] 10/27/2020 6:32 PM CDT Electronically signed by [facility] Conversion Block Inspector Cerner at 11/04/2022 3:28 PM CDT documented in this encounter Plan of Treatment Not on file documented as of this encounter Visit Diagnoses Not on filedocumented in this encounter Care Teams Accounting Machine Mechanic Relationship Specialty Start Date End Date Maya Torres APRN [address] [facility] [address] [place] [address] PCP - General Family Medicine 08/27/22 documented as of this encounter
--- OUTSIDE RECORDS SUMMARY | 2025-07-15 10:40 | XMS_ITS | Encounter Summary ---
Author Organization [employer] ([place], [place], [place], [place], [place]) Address [address] [place] [address] Care Team Providers Care Vice President Lending Name Role Phone Maya Torres Reji BELCHER Primary Care Provider +1- [phone] Encounter Details Date Type Department Care Team (Late st Contact Info) Description 10/27/2020 Transcribed Document [facility] [place] [facility] [place] [address] ProviderJean MD [address] [place], [place] [address] Social History Tobacco Use Types Packs/Day Years [...] on filedocumented in this encounter Care Teams Vice President Lending Relationship Specialty Start Date End Date Maya Torres, HUMAN GEOGRAPHY INSTRUCTOR [address] [phone] PCP - General Family Medicine 08/27/22 documented as of this encounter
--- OUTSIDE RECORDS SUMMARY | 2025-07-15 10:40 | XMS_ITS | Encounter Summary ---
Author Organization [employer] ([place], [place], [place], [place], [place]) Address [address] [place] [address] Care Team Providers Care Athletic Trainer Name Role Phone Maya Torres Reji BELCHER Primary Care Provider +1- [phone] Encounter Details Date Type Department Care Team (Late st Contact Info) Description 10/27/[address] [facility] [place] Family Medicine [address] [place] [address] ProviderJean MD [address] [place], [place] [id number] Social History Tobacco Use Types Packs/Day Years Used Date Smoking Tobacco: Never Assessed Sex and Gender Information Value Date Recorded Sex Assigned at Not on file Legal Sex Male 5:19 PM CDT Gender Identity Not on file Sexual Orientation Not on file documented as of this encounter Miscellaneous Notes * Cerner Conversion Note - Jean ProviderMD - 10/27/2020 11:59 AM CDT [place] Suicide Severity Rating Scale (C-SSRS) Entered On: 10/27/2020 12:32 EDT Performed On: 10/27/2020 12:21 EDT by Jasmin Thornton RN [place] Suicide Severity Rating Scale (C-SSRS) CSSRS Past [...] on filedocumented in this encounter Care Teams Athletic Trainer Relationship Specialty Start Date End Date Maya Torres, ADMINISTRATION VICE PRESIDENT [address] [phone] PCP - General Family Medicine 08/27/22 documented as of this encounter
--- OUTSIDE RECORDS SUMMARY | 2025-07-15 10:40 | XMS_ITS | Clinical Summary ---
Author Organization [facility] Address [address] [place] [address] Care Team Providers Care Piece Meat Trimmer Name Role Phone Unavailable Primary Care Provider [...]
--- OUTSIDE RECORDS SUMMARY | 2025-07-15 10:40 | XMS_ITS | Clinical Summary ---
Author Organization [facility] , [facility] Address [address] [place] [address] Phone Care Team Providers Care Funeral Counselor Name Role Phone Jose Cruz COLEMAN, Domingo Jett Unavailable [phone] Olga Licea APRN Unavailable [phone] Reason for Visit and Chief Complaint [Patient Encounter] Problems Includes: Problems addressed during this encounter and other active Problems All Visits Onset Date Date of Diagnosis Resolved Date Provider Condition Status Soft Tissue Pain Hand 12/05/2024 12/05/2024 Flako Pulido PA-C Active Last Documented On 5 1:43AM ; [facility], [facility] History of Lower Back Pain M idline Right Side 04/12/2022 04/12/2022 Holden Modi PA-C Active Last Documented On 5 1:41AM ; [facility], [facility] Joint Pain Left Thumb 03/12/2021 03/12/2021 Charles Hernandez MD Active Last Documented On 5 1:40AM ; [facility], [facility] Joint Pain in Both Knees 04/05/2019 04/05/2019 Arlet Billingsley MD Active Last Documented On 5 1:39AM ; [facility], [facility] Plan of Treatment Future Appointments Date Time Location Provi [place] Post Op 07/19/2025 11:00AM [facility] Holden Modi PA-C Last Documented On 5 10:29AM ; [facility] Assessments Includes: Assessments from this encounter [...] Documented On 8:39AM By Issa Rodriguez ; [facility] Clindamycin HCl 300 MG Oral Capsule 01/07/2025 Provi t[place]: Holden Modi PA-C Diagnosis: Last Documented On 5 10:36AM By [facility] ; [facility] oxyCODONE-Acetaminophen 5-325 MG Oral Tablet Provider: Issa Rodriguez MD Diagnosis: Last Documented On 5 9:50AM By Quentin Gardunoillin ; [facility] Pantoprazole Sodium 40 MG Or al Tablet Delayed Release 12/09/2024 Provider: Maya Torres WIRE ANNEALER Diagnosis: Last Documented On 5 9:50AM By Quentin Burk ; [facility] LORazepam 1 MG Oral Tablet 12/04/2024 Provider: Nancy Torres WIRE ANNEALER Diagnosis: Last Documented On 5 9:50AM By Quentin Burk ; [facility] Doxycycline Hyclate 100 MG Oral Capsule 12/04/2024 P rovider: Diagnosis: Last Documented On 9:50AM By Quentin Burk ; [facility] sulfaSALAzine 500 MG Oral Tablet 11/27/2024 Provider : Maya Torres WIRE ANNEALER Diagnosis: Last Documented On 5 9:50AM By Quentin Burk ; [facility] Albuterol Sulfate HFA 108 (9 0 Base) MCG/ACT Inhalation Aerosol Solution 11/07/2024 Provider: Maya anderson WIRE ANNEALER Diagnosis: Last Documented On 5 9:50AM By Quentin Burk ; [facility] Finasteride 5 MG Oral Tablet 11/03/2024 Provider: Maya Torres WIRE ANNEALER Diagnosis: Last Documented On 5 9:50AM By Quentin Burk ; [facility], [facility] Tamsulosin HCl 0.4 MG Oral Capsule 11/03/2024 Provid er: Maya Torres APRN Diagnosis: Last Documented On 5 3:49PM By Marifer Nuñez ; [facility], [facility] Amoxicillin 875 MG Oral Tablet 09/11/2024 Provider: Diagnosis: Last Documented On 5 9:50AM By Quentin Burk ; [facility], [facility] predniSONE 10 MG Oral Tablet 03/11/2021 Provider: Jarek Muñiz DO Diagnosis: Last Documented On 8:34AM By Deborah Lowery ; [facility], [facility] Amoxicillin 500 MG Oral Capsule 03/11/2021 Provider: Jarek Muñiz DO Diagnosis: Last Documented On 8:34AM By Deborah Lowery ; [facility], [facility] Cephalexin 500 MG Oral Capsule 03/10/2021 Provider: Diagnosis: Last Documented On 8:34AM By Deborah Lowery ; [facility] HYDROcodone-Acetaminophen 5-325 MG Oral Tablet 021 Provider: Diagnosis: Last Documented On 8:34AM By Deborah Lowery ; [facility] Gabapentin 300 MG Oral Capsule 03/06/2021 Provider: Diagnosis: Last Documented On 8:34AM By Deborah Lowery ; [facility] LORazepam 1 MG Oral Tablet 03/06/2021 Provider: Diagnosis: Last Documented On 8:34AM By Deborah Lowery ; [facility] Esomeprazole Magnesium 40 MG Oral Capsule Delayed Rele ase 03/04/2021 Provider: Diagnosis: Last Documented On 8:34AM By Deborah Lowery ; [facility], [facility] Esomeprazole Magnesium 40 MG Oral Capsule Delayed Rele ase 03/04/2021 Provider: Diagnosis: Last Documented On 8:34AM By Deborah Lowery ; [facility] Fluticasone Propionate 50 MCG/ACT Nasal Suspension Provider: Diagnosis: Last Documented On 8:35AM By Deborah Lowery ; [facility] Medications Administered Includes: Administered Medications from this encounter No Administered Medications Recorded Results Includes: Results discussed during this encounter No Results Recorded For Specified Dates History of Present Illness Includes: History of Present Illness from this encounter No History of Present Illness Recorded Social History Description Last Updated Sex - Male 07/05/2025 Last Documented On 2:08PM ; [facility], [facility] Smoking Status Unknown Procedures and Surgical History Includes: Procedures from this encounter Procedures Code Diagnosis Performing Provider Service Location Service Date Revision or [place] [address] I/I react d/t implnt elec nstim, generator, init Issa Rodriguez MD [facility] 07/03/2025 Last Documented On 1:56PM ; [facility], [facility] Revision or removal of implanted spinal neurostimulator puls (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) 28092 I/I react d/t implnt elec nstim, generator, init Bekah Cagle PA-C [facility] 07/03/2025 Last Documented On 1:56PM ; [facility], [facility] Medical History Includes: Medical History addressed during this encounter No Medical History Recorded Family History Includes: Family History addressed during this encounter No Family History Recorded Review of Systems Includes: Review of Systems from this encounter No Review of Systems Recorded Physical Exam Includes: Physical Exam from this encounter No Physical Exam Recorded Allergies Includes: Active Allergies No Known Allergies Care Funeral Counselor Name (Identifier) Role/Relation Location/Telecom Last Documented By Domingo Billingsley MD ([id number]) Assigned practitioner (occupation) tel:[phone] Last Documented On 07/05/2025 2:08PM ; [facility], [facility] Olga Licea APRN ([id number]) [address] [place] [address], [facility], [address] tel:[phone] Last Documented On 04/05/2019 9:06AM ; [facility], [facility] Encounters Encounter Provider Location (Healthcare Service Location) Date Check-In Time Check-Out Time Diagnosis Encounter Disposition [Patient Encounter] Issa Rodriguez MD [facility] 2024 1:55PM 11:59PM Payer Includes: Active Insurance Policies Plan Name (Payer ID) Coverage Type Member ID Group # Subscriber (ID) Relationship Effective Dates 1 - Medicare Part B [facility] ([id number]) [id number] Stephane Stover (Checked on 06/03/2025) Last Documented On 9 7:57AM ; [facility], [facility] 2 - [employer] Medicare Supplemen t Insurance [id number] Stephane Stover 09/15/2017 - Unknown Last Documented On 9 8:40AM ; [facility]
--- OUTSIDE RECORDS SUMMARY | 2025-07-15 10:40 | XMS_ITS | Encounter Summary ---
Author Organization [employer] ([place], [place], [place], [place], [place]) Address [address] [place] [address] Care Team Providers Care Complaint Specialist Name Role Phone Maya Torres SIMI Primary Care Provider [phone] Encounter Details Date Type Department Care Team (Late st Contact Info) Description 10/27/2020 Transcribed Document [facility] Family [facility] [place] [address] ProviderJean MD [address] [place] [id number] Social History Tobacco Use Types Packs/Day Years [...] EDT Height Source Stated Height Entry Format Bee Height/Length, SOMALI (ft) 5 ft Height/Length SOMALI 8 Inch CLINICALHEIGHT 172.72 cm [place] Body Weight 67.45 kg Weight Source, ED Critical estimated dosing weight Weight Entry Format Bee Weight Tajik lb 250 lb CLINICALWEIGHT 113.64 kg Body [...] Color Yellow Urine Appearance Clear Urine Specific [place] 1.006 Urine pH Dipstick 6.5 Urine Leukocyte [...] % LOW ALYC # 1 K/uL NA [place] Percent Man 2 % LOW Eos Percent Man 1 % Baso Percent Man 1 % Myelo Percent Man 2 % HI RBC Morphology Normal Platelet Ct Estimate Adequate Slide Review Add Diff Man PT 9.9 Second(s) INR 0.9 PTT 25.2 Second(s) Procalcitonin <0.25 ng/mL SARS-CoV-2 (COVID19 PCR) Negative . Radiology results: Radiology Results (Last 48 hours) [id number] -- 10/27/2020 11:59 CT Abdomen Pelvis W [...] on filedocumented in this encounter Care Teams Complaint Specialist Relationship Specialty Start Date End Date Maya Torres, EXPERIMENTAL OUTBOARD MOTORS MECHANIC [address] [phone] PCP - General Family Medicine 08/27/22 documented as of this encounter
--- OUTSIDE RECORDS SUMMARY | 2025-07-15 10:40 | XMS_ITS | Encounter Summary ---
Author Organization [employer] ([place], [place], [place], [place], [place]) Address [address] [place] [address] Care Team Providers Care Professional Wrestler Name Role Phone Maya Torres Reji BELCHER Primary Care Provider [phone] Encounter Details Date Type Department Care Team (Late st Contact Info) Description 10/27/2020 Transcribed Document [facility] [address] [place] [address] ProviderJean MD [address] [place] [address] Social History Tobacco Use Types [...] filedocumented in this encounter Care Teams Professional Wrestler Relationship Specialty Start Date End Date Maya Torres, CIGARETTE MAKER [address] [phone] PCP - General Family Medicine 08/27/22 documented as of this encounter
--- OUTSIDE RECORDS SUMMARY | 2025-07-15 10:40 | XMS_ITS | Encounter Summary ---
Author Organization [employer] ([place], [place], [place], [place], [place]) Address [address] [place] [address] Care Team Providers Care Public Relations Director Name Role Phone Maya Torres Reji BELCHER Primary Care Provider [phone]- [phone] Encounter Details Date Type Department Care Team (Late st Contact Info) Description 10/27/2020 Transcribed Document [facility] Family Medicine [facility] [place] [address] ProviderJean MD [address] [place] [address] Social History Tobacco Use Types [...] EDT Performed On: 10/27/2020 12:35 EDT by aJsmin Thornton RN Vital Signs ED Temperature Mode : Fahrenheit Blood Pressure Location : Arm, right upper Systolic Blood Pressure : 145 mmHg (HI) Diastolic Blood Pressure : 73 mmHg Jasmin Thornton RN - 10/27/2020 12:35 EDT documented in this encounter Plan of Treatment Not on file documented as of this encounter Visit Diagnoses Not on filedocumented in this encounter Care Teams Public Relations Director Relationship Specialty Start Date End Date Maya Torres, PICTURE ENGRAVER [address] [phone] PCP - General Family Medicine 08/27/22 documented as of this encounter
--- OUTSIDE RECORDS SUMMARY | 2025-07-15 10:40 | XMS_ITS | Clinical Summary ---
Author Organization [employer] ([place], [place], [place], [place], [place]) Address [address] [place] [address] Care Team Providers Care Poiser Balance Name Role Phone Maya Torres APRN Primary Care Provider [phone]- [phone] Allergies No known active allergies Medications traZODone [...] Date Jan rded Speak language other than Polish at home Not on file 08/04/2023 Want [...] 04/24/2019, 2017 Insurance MEDICARE PART A B [facility] Care Teams Poiser Balance Relationship Specialty Start Date End Date Maya Torres, CIGAR PACKER AND SHADER [address] [phone] PCP - General Family Medicine 08/27/22
--- OUTSIDE RECORDS SUMMARY | 2025-07-15 10:41 | XMS_ITS | Data Portability ---
Author Organization [facility] BROOKS GutierrezS [place] CLOS[place] Address [address] [place] [address] Care Team Providers Care Relay Shop Supervisor Name Role Phone HERIBERTO PATEL Orthopedic Surgeon SHARMIN WHITAKER Primary Care Provider [phone] Assessment No assessment recorded. Plan of Treatment Reminders Order Date Submit Date Provider Last Modified By Organization Details Last Modified Time Details Appointments DERM ESTABLISH ED 2025 10:30A Nancy GONZALEZ MD Not available Not available Not available Lab surgical pathology study - Excision: Biopsy proven BCC check for clear margins 2024 05 025 [facility], [address] [place] [address], [phone], 11/22/2024 12:08:26 Referral None recorded. Procedures None recorded. Surgeries None recorded. Imaging None recorded. Medication Orders None recorded. Patient TargetsNo targets recorded. Patient InstructionsNo instructions recorded. Reason for Referral None Reported. Results Created Date Observation Date Name Description Value Unit Range Abnormal Flag Note LastModifiedBy Organization Detail LastModifiedTime 10/30/19 25 10/29/2024 SURGI MIRELLA surgical SEE BELOW abnormal [place] topat holog y Repor t NAME: ISATU [...] Date: 10/31 10:38 1 Not Available [facility] [address], [place], [address], 10/31/2024 10:39:11 11/21/19 25 11/20/2024 SURGI MIRELLA surgical SEE BELOW abnormal [place] topat holog y Repor t NAME: LANCE [...] Date: 11/22 12:08 1 Not Available [facility] [address] [place] [address], [phone], 11/22/2024 12:08:26 Result Notes None recorded. Problems No Known Problems Procedures Surgical History Date Name Laterality Status Provider Name and Address Organization Details Recorded Time 12/12/19 25 Suture/Staple removal completed Henny [place] [facility] 12/11/2024 07:41:19 11/21/19 25 DAK - Lesion Excision, [place]; trunk,arms,legs completed NUVIA SIDDIQUI JR, MD [address] [place] [address], [phone], [facility] 11/20/2024 14:00:58 10/30/19 25 DAK - Biopsy, Tangential completed Janna Zhou [facility] 10/29/2024 10:31:00 12/26/19 24 Biopsy Skin Lesion; Tangential completed Kelsey RAMEY - [facility] 12/26/2023 11:19:57 12/26/19 24 Destruction Premalignant Lesion(s) completed Kelsey RAMEY - [facility] 12/26/2023 11:19:17 06/23/20 23 Biopsy Skin Lesion; Tangential completed Kelsey RAMEY - [facility] 06/23/2023 11:49:07 06/23/20 23 Destruction Premalignant Lesion(s) completed Kelseytiny RAMEY - [facility] 06/23/2023 11:45:10 03/24/20 18 Stress Test - Echo Dobutamine completed GILDA LAGUNAS MD [address] [place], [address], [facility] 03/24/2018 12:52:45 03/24/20 18 Echocardiogram - Dobutamine Stress Test completed GILDA LAGUNAS MD [address] [place], [phone] [place] [address] 03/24/2018 12:42:39 Hernia Repair completed Jazmin Short [facility] 02/14/2018 10:09:44 Other completed Jazmin Short [place] - [facility] 02/14/2018 10:10:04 Other completed Jazmin Short [place] - [facility] 02/14/2018 10:10:14 Other completed Jazmin Short [place] - [facility] 02/14/2018 10:10:30 Other completed Jazmin Short [place] - [facility] 02/14/2018 10:10:35 Other completed Jazmin Short [place] - [facility] 03/03/2018 10:09:36 Imaging Results None recorded. [...] Updated DateTime 11/20/2024 131/87 mm[Hg] Henny Tijerina [facility] 11/20/2024 11:58:18 Social History Question Answer Notes LastModified by Organizat ion Details LastModified Time Tobacco Smoking Status Former Sm[facility] 02/14/2018 10:08:49 When Did You Quit Smoking? 16+yearssince lastcigarette [email or web address] Information not available 03/03/2018 Live Alone Or With Others? With Others [email or web address] Information not available 03/03/2018 Marital Status [email or web address] Informatio n not available 03/03/2018 What Was The Date Of Your Most Recent Tobacco Screening? 03/03/2018 Information n ot available 09/04/2019 Sex: Male Functional Status Question Answer Note LastModified by Organizat ion Details LastModified Time What is your level of alcohol consumption? None Information not available 02/14/2018 What is your occupation? [employer] [email or web address] Information not available 03/03/2018 Mental Status None recorded. Family History Relationship Description Onset Age of this Age Resolved Age Notes LastModified by Organization Details LastModified Time Unspecified Relation Family history of malignant neoplasm [email or web address] Not available 2017 10:08:14 Unspecified Relation Hypertensive disorder [email or web address] Not available 2017 10:08:34 Unspecified Relation Arthritis [email or web address] Not available 2017 10:08:43 Medical History Condition Response Arthritis Y Basal Cell Carcinoma Y Past Encounters Encounter ID Performer Location Encounter Start Date Encounter Closed Date Diagnosis/Indication Diagnosis SNOMED-CT Code Diagnosis ICD10 Code Diagnosis IMO Codes Diagnosis Note [id number] DEE FERNÁNDEZ MD CARDIOLOG Y [facility] CLOSED [address] [place] [address] 03/03/2018 09:58:12 03/03/2018 11:04:15 Atherosclerosis of arteries of the extremities 48464873 I70.209 The patient has normal lower extremity pulses and essentiall y normal CORY. With findings of vascular calcificat ion recommend considerat ion for addition of statins and low-dose aspirin to his regimen. No further testing of his lower extremitie s is indicated at this time. Preoperati ve cardiovascular examination 022370662 Z01.810 The patient requires knee replacemen t. He has no evidence of aortic stenosis, angina or CHF and therefore I would anticipate a low cardiovasc ular risk. In light of the presence of atheroscle rosis, I suggest a preoperati ve dobutamine stress echocardio gram. Results will be forwarded to his orthopedic surgeon once available. [id number] GILDA LAGUNAS MD [facility] CLOSED [address] [facility] [place] [address] 03/24/2018 08:18:43 03/31/2018 15:16:10 Coronary arteriosclerosis in [place] artery [id number] 107 I25.10 [id number] GILDA LAGUNAS MD [facility] [address] [facility] [address] [place] [address] 03/24/2018 08:19:09 03/24/2018 13:23:26 Coronary arteriosclerosis 82343115 I25.10 [id number] GIAN Espino, [employer] DAK [facility] [address] [place] [address] 06/23/2023 10:45:12 06/23/2023 11:56:59 History of malignant neoplasm of skin 802390002 Z85.828 Last skin cancer - 07/2022 - No evidence of recurrence today- Call with any worrisome lesions or if treated lesions return- Return at regular intervals for skin exam as recommende d Multiple b enign melanocytic nevi 633316976 D22.5 - Benign moles seen on exam [...] changing or worrisome lesions Seborrheic keratosis 394 803741 L82.1 - Benign overgrowth s of skin - Hereditary Senile angioma 7193630 I 78.1 - Benign blood vessel growths - Hereditary Solar lentigo 91781665 L 81.4 - Benign brown spots - Sun-induce d Actinic keratosis 572369 007 L57.0 Actinic keratoses are precancero us lesions that may progress to squamous cell carcinoma if untreated. UV light and genetics may increase risk. Treated lesions should blister, scab over, and heal within a few weeks. If treated lesion(s) does not resolve within 1-2 months, patient agrees to follow up for re-evaluat ion. Neoplasm o f uncertain behavior of skin 39043869 D48.5 Recommend blade biopsy. Risks, benefit, and procedure discussed with patient. Consent obtained. [id number] RINKU KELLY MD [address] [address] 08/16/2023 08:26:04 08/19/2023 14:47:05 [id number] GIAN Espino APRN [address] [address] 12/26/2023 10:46:06 12/26/2023 11:27:25 History of malignant neoplasm of skin 813699042 Z85.828 last skin cancer - 06/2023 - No evidence of recurrence today- Call with any worrisome lesions or if treated lesions return- Return at regular intervals for skin exam as recommende d Multiple b enign melanocytic nevi 778391214 D22.5 - Benign moles seen on exam [...] changing or worrisome lesions Seborrheic keratosis 394 150768 L82.1 - Benign overgrowth s of skin - Hereditary Senile angioma 9637121 I 78.1 - Benign blood vessel growths - Hereditary Solar lentigo 01551513 L 81.4 - Benign brown spots - Sun-induce d Neoplasm o f uncertain behavior of skin 48698949 D48.5 Recommend blade biopsy. Risks, benefit, and [...] agrees to follow up for re-evaluat ion. [id number] RINKU KELLY MD [address] [place] [address] 02/14/2024 08:21:31 02/16/2024 14:44:35 [id number] RINKU KELLY MD [address] [place] [address] 03/14/2024 09:34:47 03/22/2024 04:26:11 Postoperative visit 544238103 Z09 Scar 341153291 L90.5 History of malignant basal cell neoplasm of skin 624108450 Z85.828 No evidence of recurrence . Discussed risk of recurrence and new skin cancers, so regular self exam and profession al skin checks are recommende d. Sun protection with broad spectrum SPF 30 sunscreen and broad-brim med hat is recommende d. Sun protection with SPF 30 broad spectrum sunscreen and protective gear discussed. [id number] GIAN Espino APRN [address] [place] [address] 10/29/2024 09:42:30 10/29/2024 10:46:53 History of malignant neoplasm of skin 504000525 Z85.828 Most recent skin cancer 12/2023 - No evidence of recurrence today- Call with any worrisome lesions or if treated lesions return- Return at regular intervals for skin exam as recommende d Multiple b enign melanocytic nevi 667951098 D22.5 - Benign moles seen on exam [...] changing or worrisome lesions Seborrheic keratosis 394 926632 L82.1 - Benign overgrowth s of skin - Hereditary Senile angioma 7194147 I 78.1 - Benign blood vessel growths - Hereditary Solar lentigo 46092881 L 81.4 - Benign brown spots - Sun-induce d Neoplasm o f uncertain behavior of skin 28682674 D48.5 Recommend blade biopsy. Risks, benefit, and procedure discussed with patient. Consent obtained. Discussed the biopsy only takes the top layer of the lesion for testing. This does NOT treat the skin cancer if it is one. Advised they would need to return for more treatment given the type and depth of the skin cancer when the results come in. [id number] MD DANNY HINKLE JR [place] [address] [facility] [place] [address] 11/13/2024 09:51:03 11/13/2024 12:10:30 [id number] MD DANNY HINKLE JR [place] [address] [address] [facility] [place] [address] 11/20/2024 11:19:12 11/20/2024 13:33:38 Basal cell carcinoma of upper extremity 969330037 C44.612 [id number] MD DANNY HINKLE JR [place] [address] [place] [address] 11/27/2024 10:53:15 11/27/2024 14:06:05 [id number] NUVIA SIDDIQUI JR, MD [place] [address] [place] [address] 12/04/2024 09:54:33 12/04/2024 11:37:08 [id number] NUVIA SIDDIQUI JR, MD [place] [address] [place] [address] 12/11/2024 09:21:24 12/11/2024 09:46:54 Scar 215657471 L90.5 Wound in appropriat e stages of [...] (MEDICARE SUPPLEMENT) PLAN G Isatu Marta Anam [id number] Isatu Marta Anam 04/26/2025 1 [place] Isatu Marta Anam [id number] Isatu Mendieta 08/05/2023 2 [employer] Isatu Mendieta [id number] Isatu Mendieta 08/05/2023 1 [place] [id number] Isatu Mendieta [id number] Isatu Mendieta Notes Date Note Type Note Provider Name and Address Organization Details Recorded Time 11/13/2024 text/html ROS as noted in the [facility] Patient presents today for an excision to right posterior base of neck for treatment of BCC. Procedure changed to Mohs procedure. Not Available [facility] 11/19/2024 08:16:02 11/20/2024 text/html ROS as noted in the [facility] Patient presents today for an excision to Right Dorsal Forearm and Right Radial Forearm for treatment of biopsy proven BCC. NUVIA SIDDIQUI JR, MD [address] [place] [address], [phone], [facility] 11/20/2024 14:03:55 12/11/2024 text/html ROS as noted in the HPI Patient present today for fourteen day staple removal following Excision procedure on 11/27/2024 toLeft Midline Temporal Scalp for treatment of BCC. NUVIA SIDDIQUI JR, MD [address] [place] [address], [phone], [facility] 12/11/2024 10:11:03
--- OUTSIDE RECORDS SUMMARY | 2025-07-15 10:41 | XMS_ITS | Encounter Summary ---
Author Organization [email or web address] ([place], [place], [place], [place], [place]) Address [address] [place] [address] Care Team Providers Care Live In Caregiver Name Role Phone Maya Torres SIMI Primary Care Provider [phone] Encounter Details Date Type Department Care Team (Late st Contact Info) Description 10/18/2020 Transcribed Document [facility] Family Medicine [address] [place] [address] ProviderJean MD [address] [place], [place] [address] Social History Tobacco Use Types Packs/Day Years [...] Communication Barrier : None Primary Language : Grenadian Any Spiritual/Cultural Needs or Requests : No [...] on filedocumented in this encounter Care Teams Live In Caregiver Relationship Specialty Start Date End Date Maya Torres, [employer] LINEMAN [address] [address] PCP - General Family Medicine 08/27/22 documented as of this encounter
--- OUTSIDE RECORDS SUMMARY | 2025-07-15 10:41 | XMS_ITS | Encounter Summary ---
Author Organization [facility] ([place], [place], [place], [place], [place]) Address [address] [place] [address] Care Team Providers Care County Surveyor Name Role Phone Maya Torres APRN Primary Care Provider [phone] Encounter Details Date Type Department Care Team (Late st Contact Info) Description 10/18/2020 Transcribed Document [facility] Family Medicine [address] [place] [address] ProviderJean MD [address] [place] [address] Social History Tobacco Use Types [...] 10/18/2020 9:20 PM CDT Electronically signed by [facility] Conversion Health Assistant Cerner at 11/04/2022 3:18 PM CDT documented in this encounter Plan of Treatment Not on file documented as of this encounter Visit Diagnoses Not on filedocumented in this encounter Care Teams County Surveyor Relationship Specialty Start Date End Date Maya Torres APRN [address] [facility] [address] [place] [address] PCP - General Family Medicine 08/27/22 documented as of this encounter
--- OUTSIDE RECORDS SUMMARY | 2025-07-15 10:41 | XMS_ITS | Clinical Summary ---
Author Organization [facility] , [facility] Address [address] [place] [address] Phone Care Team Providers Care Medicare Sales Executive Name Role Phone Jose Cruz COLEMAN, Domingo Jett Unavailable + [phone] Olga Licea APRN Unavailable [phone] Reason for Visit and Chief Complaint The Chief Complaint is: back pain Problems Includes: Problems addressed during this encounter and other active Problems All Visits Onset Date Date of Diagnosis Resolved Date Provider Condition Status Soft Tissue Pain Hand 12/05/2024 12/05/2024 Flako Pulido PA-C Active Last Documented On 5 1:43AM ; [facility], [facility] History of Lower Back Pain M idline Right Side 04/12/2022 04/12/2022 Holden Modi PA-C Active Last Documented On 5 1:41AM ; [facility], [facility] Joint Pain Left Thumb 03/12/2021 03/12/2021 Charles Hernandez MD Active Last Documented On 5 1:40AM ; [facility], [facility] Joint Pain in Both Knees 04/05/2019 04/05/2019 Arlet Billingsley MD Active Last Documented On 5 1:39AM ; [facility], [facility] Plan of Treatment Patient screened for future fall risk: documentation of any fall with injury in past year. - Last Documented On 01/28/2025 11:48AM ; [facility], [facility] Patient was seen by myself Holden Modi PA-C. Patient will follow up 1 week we are going to keep him on clindamycin we will take the geronimo out of all the incisions today and recheck this in a week - Last Documented On 01/28/2025 11:48AM ; [facility] Pending Tests Order Diagnosis Results Due Ordering P xena Radiology - MRI MRI Lumbar Spine 04/26/22 Chas Modi PA-C Last Documented On 2 1:06PM ; [facility], [facility] Future Appointments Date Time Location Provi tahira Post Op 07/19/2025 11:00AM [facility] Holden Modi PA-C Last Documented On 5 10:29AM ; [facility] Instructions to patient Lose weight Last Documented On 5 10:49AM ; [facility] Assessments Includes: Assessments from this encounter Findings - Overweight - Last Documented On 01/28/2025 11:48AM ; [facility] 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 - Last Documented On 01/28/2025 11:48AM ; [facility] Instructions Includes: Instructions from this encounter Instructions to patient Lose weight Last Documented On 5 10:49AM ; [facility] Medical Equipment - Implanted Devices Includes: Current Devices No Medical Equipment Recorded Medications Includes: Medications discussed during this encounter and other current Medications New / Renewed during this visit Holden Modi PA-C on 01/07/2025 Clindamycin HCl 300 MG Oral Capsule Provider: Holden Modi PA-C 2 day supply: 21 capsule, 0 refills Diagnosis: take 2 pills, 3 three times a day Pharmacy: [facility] [id number] , [facility], [id number] - Last Documented On 5 11:06AM By Quentin Burk ; [facility] Current Medications (continue as prescribed) Percocet 5-325 MG Oral Tablet 07/03/2025 - 07/18/2025 Provider: Issa Rodriguez MD Diagnosis: 1 po q 4h prn pain Last Documented On 5 8:39AM By Issa Rodriguez ; [facility] Clindamycin HCl 300 MG Oral Capsule 01/07/2025 Provi tahira: Holden Modi PA-C Diagnosis: Last Documented On 5 10:36AM By Quentin Burk ; [facility], [facility] oxyCODONE-Acetaminophen 5-325 MG Oral Tablet Provider: Issa Rodriguez MD Diagnosis: Last Documented On 5 9:50AM By Quentin Burk ; [facility], [facility] Pantoprazole Sodium 40 MG Or al Tablet Delayed Release 12/09/2024 Provider: Maya Torres CENTERLESS GRINDING MACHINE ADJUSTER Diagnosis: Last Documented On 5 9:50AM By Quentin Burk ; [facility], [facility] LORazepam 1 MG Oral Tablet 12/04/2024 Provider: Nancy Torres CENTERLESS GRINDING MACHINE ADJUSTER Diagnosis: Last Documented On 5 9:50AM By Quentin Burk ; [facility], [facility] Doxycycline Hyclate 100 MG Oral Capsule 12/04/2024 P padminider: Diagnosis: Last Documented On 5 9:50AM By Quentin Burk ; [facility], [facility] sulfaSALAzine 500 MG Oral Tablet 11/27/2024 Provider : Maya Torres CENTERLESS GRINDING MACHINE ADJUSTER Diagnosis: Last Documented On 5 9:50AM By Quentin Burk ; [facility], [facility] Albuterol Sulfate HFA 108 (9 0 Base) MCG/ACT Inhalation Aerosol Solution 11/07/2024 Provider: Maya anderson CENTERLESS GRINDING MACHINE ADJUSTER Diagnosis: Last Documented On 5 9:50AM By Quentin Burk ; [facility], [facility] Finasteride 5 MG Oral Tablet 11/03/2024 Provider: Maya Torres CENTERLESS GRINDING MACHINE ADJUSTER Diagnosis: Last Documented On 5 9:50AM By Quentin Burk ; [facility], [facility] Tamsulosin HCl 0.4 MG Oral Capsule 11/03/2024 Provid er: Maya Torres CENTERLESS GRINDING MACHINE ADJUSTER Diagnosis: Last Documented On 5 3:49PM By Marifer Nuñez ; [facility], [facility] Amoxicillin 875 MG Oral Tablet 09/11/2024 Provider: Diagnosis: Last Documented On 5 9:50AM By Quentin Burk ; [facility], [facility] predniSONE 10 MG Oral Tablet 03/11/2021 Provider: Jarek Muñiz DO Diagnosis: Last Documented On 8:34AM By Deborah Lowery ; [facility], [facility] Amoxicillin 500 MG Oral Capsule 03/11/2021 Provider: Jarek Muñiz DO Diagnosis: Last Documented On 8:34AM By Deborah Lowery ; [facility] Cephalexin 500 MG Oral Capsule 03/10/2021 Provider: Diagnosis: Last Documented On 8:34AM By Deborah Lowery ; [facility], [facility] HYDROcodone-Acetaminophen 5-325 MG Oral Tablet 021 Provider: Diagnosis: Last Documented On 8:34AM By Deborah Lowery ; [facility], [facility] Gabapentin 300 MG Oral Capsule 03/06/2021 Provider: Diagnosis: Last Documented On 8:34AM By Deborah Lowery ; [facility], [facility] LORazepam 1 MG Oral Tablet 03/06/2021 Provider: Diagnosis: Last Documented On 8:34AM By Deborah Lowery ; [facility], [facility] Esomeprazole Magnesium 40 MG Oral Capsule Delayed Rele ase 03/04/2021 Provider: Diagnosis: Last Documented On 8:34AM By Deborah Lowery ; [facility], [facility] Esomeprazole Magnesium 40 MG Oral Capsule Delayed Rele ase 03/04/2021 Provider: Diagnosis: Last Documented On 8:34AM By Deborah Lowery ; [facility], [facility] Fluticasone Propionate 50 MCG/ACT Nasal Suspension Provider: Diagnosis: Last Documented On 8:35AM By Deborah Lowery ; [facility], [facility] Past Medications on file Clindamycin HCl 300 MG Oral Capsule 12/28/2024 - 01/08/2025 Provider: Holden Steiner Diagnosis: three times a day Last Documented On 5 10:10AM By Quentin Burk ; [facility], [facility] Percocet 5-325 MG Oral Tablet 12/19/2024 - 01/03/2025 Provider: Issa Rodriguez MD Diagnosis: 1 po q 4h prn pain Last Documented On 5 8:40AM By Issa Rodriguez ; [facility], [facility] Losartan Potassium 100 MG Oral Tablet 12/05/2024 - Provider: Diagnosis: Last Documented On 3:50PM By Marifer Nuñez ; [facility] DULoxetine HCl 60 MG Oral Ca psule Delayed Release Particles 12/05/2024 - 03/05/2025 Provider: Diagnosis: Last Documented On 3:49PM By Marifer Nuñez ; [facility] Montelukast Sodium 10 MG Oral Tablet 12/05/2024 - 02/15 Provider: Diagnosis: Last Documented On 3:49PM By Marifer Nuñez ; [facility], [facility] Medications Administered Includes: Administered Medications from this encounter No Administered Medications Recorded Vital Signs Includes: Vital Signs from this encounter Vital Name 01/07/2025 11:15A 01/07/2025 10: 50A Temp-Oral (F) 97.5 Height (in) 69 Weight (lb) 250 Body Mass Index 36.9 Body Surface Area 2.3 Pain Level 2 Last Documented: On 01/07/2025 11:15A M ; [facility] On 01/07/2025 10:50AM ; [facility] Results Includes: Results discussed during this encounter [...] Documented On 5 10:49AM ; [facility] No recent change in diet 04/22/2022 Last Documented On 5 10:49AM ; [facility] Not a current smoker. 04/22/2022 Last Documented On 5 10:49AM ; [facility] Non-smoker 03/12/2021 Last Documented On 5 10:49AM ; [facility] No tobacco use 04/05/2019 Last Documented On 5 10:49AM ; [facility], [facility] Smoking status : Never smoker 04/05/2019 Last Documented On 5 10:49AM ; [facility] Caffeine use 04/05/2019 Last Documented On 5 10:49AM ; [facility], [facility] No recent change in diet 04/05/2019 Last Documented On 5 10:49AM ; [facility] Not a current smoker 04/05/2019 Last Documented On 5 10:49AM ; [facility] Not exercising regularly 04/05/2019 Last Documented On 5 10:49AM ; [facility] Not using alcohol 04/05/2019 Last Documented On 5 10:49AM ; [facility], [facility] Not using drugs 04/05/2019 Last Documented On 5 10:49AM ; [facility], [facility] Sex - Male 07/05/2025 Last Documented On 5 2:08PM ; [facility], [facility] Procedures and Surgical History Surgical History Last Updated History of hernia repair 04/05/2019 Last Documented On 5 10:49AM ; [facility], [facility] Medical History Includes: Medical History addressed during this encounter Description Last Updated No recent immunization for flu Last Documented On 5 10:49AM ; [facility], [facility] No recent immunization for pneumococcal pneumonia 03/12/2021 Last Documented On 5 10:49AM ; [facility], [facility] cataracs 04/05/2019 Last Documented On 5 10:49AM ; [facility], [facility] Arthritic joint problems 04/05/2019 Last Documented On 5 10:49AM ; [facility], [facility] Intermittent hypertension 04/05/2019 Last Documented On 5 10:49AM ; [facility], [facility] Family History Includes: Family History addressed during this encounter Description Last Updated Family history of cancer 04/05/2019 Last Documented On 5 10:49AM ; [facility], [facility] Family history of hypertension 9 Last Documented On 10:49AM ; [facility] Review of Systems Includes: Review [...] Anxiety Last Documented On 5 10:49AM ; [facility] Physical Exam Includes: Physical Exam from this encounter Allergies Includes: Active Allergies No Known Allergies Care Medicare Sales Executive Name (Identifier) Role/Relation Location/Telecom Last Documented By Domingo Billingsley MD ([id number]) Assigned practitioner (occupation) tel: Last Documented On 07/05/2025 2:08PM ; [facility] Olga Licea APRN ([id number]) [address] [place] [address], [id number] tel: Last Documented On 04/05/2019 9:06AM ; [facility] Encounters Encounter Provider Location (Healthcare Service Location) Date Check-In Time Check-Out Time Diagnosis Encounter Disposition Post Op Holden Modi PA-C [facility] 2024 10:33AM 11:15AM Overweight Payer Includes: Active Insurance Policies Plan Name (Payer ID) Coverage Type Member ID Group # Subscriber (ID) Relationship Effective Dates 1 - Medicare Part B [facility] ([id number]) [id number] Stephane Mendieta Self (Checked on 06/03/2025) Last Documented On 9 7:57AM ; [facility], [facility] 2 - [employer] [facility] [id number] Stephane Mendieta Self 09/15/2017 - Unknown Last Documented On 9 8:40AM ; [facility], [facility] Clinical Notes Includes: Clinical Notes from this encounter * Progress note Date Encounter Last Documented by 01/07/2025 Post Op Last documented on 01/28/2025; 11:48 AM, Holden Modi PA-C; [facility], [facility] Active Problems & Conditions - History of [...] Care Team - Olga Licea APRN - HAND TOUCH UP PAINTER
--- OUTSIDE RECORDS SUMMARY | 2025-07-15 10:41 | XMS_ITS | Encounter Summary ---
Author Organization [employer] ([place], [place], [place], [place], [place]) Address [address] [place] [address] Care Team Providers Care Retail Sales Consultant Name Role Phone Maya Torres Reji BELCHER Primary Care Provider [phone] Encounter Details Date Type Department Care Team (Late st Contact Info) Description 10/18/2020 Transcribed Document [facility] Family Medicine [facility] [place] [address] ProviderJean MD [address] [place] [address] Social History Tobacco Use Types Packs/Day Years [...] 10/18/2020 21:39 EDT Electronically signed by Ileana [facility] Conversion Engraver [employer]ner at 11/04/2022 3:31 PM CDT documented in this encounter Plan of Treatment Not on file documented as of this encounter Visit Diagnoses Not on filedocumented in this encounter Care Teams Retail Sales Consultant Relationship Specialty Start Date End Date Maya Torres, COFFEE BLENDER [address] [id number] PCP - General Family Medicine 08/27/22 documented as of this encounter
--- OUTSIDE RECORDS SUMMARY | 2025-07-15 10:41 | XMS_ITS | Encounter Summary ---
Author Organization [employer] ([place], [place], [place], [place], [place]) Address [address] [place] [address] Care Team Providers Care Plating Technician Name Role Phone Maya Torres Reji BELCHER Primary Care Provider [phone] Encounter Details Date Type Department Care Team (Late st Contact Info) Description 10/18/2020 Transcribed Document [facility] Family Medicine [address] [place] [address] ProviderJean MD [address] [place] [address] Social History Tobacco Use Types [...] Sawant MD - 10/18/2020 9:38 PM CDT [facility] [place], [place] [address] ISATU MENDIETA :1950 Visit Time:10/18/2020 Your Visit [...] worsen. Where: [address] [facility] [address] [place] [address] Business (1) Follow Up with JACKIE LEONARD [...] 24HR 55 mcg/ inh nasal spray) [address] [place](s) Nasal Two Times A Day Pharmacy Information [facility]: [address] [place], [place] [id number] [phone] The home medications listed are only as [...] safe for you. General instructions ??? Take ncuk-jwu-xthyxck and prescription medicines only as told by [...] Reviewed: 01/04/2019 Vince Patient Education ?? 2020 [employer]. Emergency Awareness and Preventative Care STROKE is [...] Assistance with quitting is available by contacting 4-800-PHCV-NOW. This is a free resource providing counseling, [...] was given the opportunity to ask questions. Patient/Drilling Supervisor Name: Patient/Drilling Supervisor Signature: Relationship to Patient: Clinician/Hospital Drilling Supervisor Signature: Please Provide a Telephone Number Where You Can Be Reached: Is it Permissible To Leave a Message? Date: documented in this encounter Plan of Treatment Not on file documented as of this encounter Visit Diagnoses Not on filedocumented in this encounter Care Teams Plating Technician Relationship Specialty Start Date End Date Maya Torers, SIMI [address] [id number] PCP - General Family Medicine 08/27/22 documented as of this encounter
--- OUTSIDE RECORDS SUMMARY | 2025-07-15 10:41 | XMS_ITS | Data Portability ---
Author Organization [employer], [facility] Address [address] [place] [address] Assessment No assessment recorded. Plan of Treatment Reminders Order Date Submit Date Provider Last Modified By Organization Details Last Modified Time Details Appointments SAME DAY ACCESS 2025 02:30P Nancy Torres APRN Not available Not available Not available FOLLOW UP 2025 10:30A M Stephanie Torres APRN Not available Not available Not available Lab lipid panel, serum 2024 025 [facility] [address] [place], [address], 03/09/2025 08:10:55 CBC w/ auto diff 2024 025 [facility] [address] [place], [address], 03/09/2025 08:10:54 TSH + free T4, serum 2024 025 [facility] [address] [place], [address], 03/09/2025 08:10:54 CMP, serum or plasma 2024 025 [facility] [address] [place], [address], 03/09/2025 08:10:55 HbA1c (hemoglob in A1c), blood 2024 025 [facility]), [address] [place], [address], 03/09/2025 08:10:56 vitamin D, 25-hydrox y, total, serum 2024 025 [facility]), [address] [place], [address], 03/09/2025 08:10:57 PSA, total, serum or plasma 2024 025 [facility]), [address] [place], [address], 03/09/2025 08:10:56 cobalamin and folate panel, serum 2024 025 [facility]), [address] [place], [address], 03/09/2025 08:10:56 drug screen, 14 drugs (detect ed), urine - Lorazepam last taken this AM. 2024 025 [facility]), [address] [place], [address], 10/04/2024 14:08:41 Referral None recorded. Procedures None recorded. Surgeries None recorded. Imaging None recorded. Medication Orders lorazepam 1 mg tablet [address] [facility] (Now [facility]), [address], [place], [address], 05/09/2025 18:00:59 amoxicill in 875 mg-potass ium clavulana te 125 mg tablet 2024 [facility], [address] [place] [address], [address], 03/25/2025 05:01:32 duloxetin e 60 mg capsule,d elayed release 2024 [facility], [address], [place], [address], 02/01/2025 12:20:54 cetirizin e 10 mg tablet 2024 025 [facility], [address], [place], [address], 02/01/2025 12:20:59 fluticaso ne propionat e 50 mcg/actua tion nasal spray,kvng pension 2024 025 [facility], [address], [place], [address], 02/01/2025 12:20:55 finasteri de 5 mg tablet 2024 025 [facility], [address], [place], [address], 02/01/2025 12:20:56 tamsulosi n 0.4 mg capsule 2024 025 [facility], [address], [place], [address], 02/01/2025 12:20:55 prednison e 10 mg tablet 2024 025 [facility], [address], [place], [address], 02/01/2025 12:20:58 ipratropi um 0.5 mg-albute rol 3 mg (2.5 mg base)/3 mL nebulizat ion soln 2024 025 [facility], [address], [place], [address], 02/01/2025 12:20:58 prednison e 5 mg tablet 2024 025 [facility], [address], [place], [address], 02/01/2025 10:52:54 lorazepam 1 mg tablet 2024 025 [facility], [address] , [place], [address], 12/03/2024 14:16:48 pantopraz ole 40 mg tablet,de layed release 2024 025 [facility], [address] , [place], [address], 09/27/2024 11:49:11 Patient TargetsNo targets recorded. Patient Instructions Encounter Date Encounter Id Patient Instructions Last Modified By Organization Details Last Modified Time 09/27/2024 [id number] controlled substance agreement* [email or web address] Not available 09/27/2024 11:49:09 02/01/2025 [id number] learning about healthy weight [email or web address] Not available 02/01/2025 18:33:18 Reason for Referral [...] [facility] ([facility]) [address] [facility] [place], [address], 10/04/2024 14:08:41 09/28/19 25 10/04/2024 COMPL IANCE DRUG CHARISSA SIS, UR pdf . Not Available [facility] ([facility]) [address] [facility] [place], [address], 10/04/2024 14:08:41 03/08/20 25 03/09/2025 TSH+F REE T4 TSH 3.680 uIU/m L 0.450- 4.500 normal Not Available [facility] ([facility]) [address] [facility], [place], [address], 03/09/2025 08:10:54 03/08/20 25 03/09/2025 TSH+F REE T4 T4,free(dire ct) 0.89 NG/dL 0.82-1 .77 normal Not Available [facility] ([facility]) [address] [facility] [place], [address], 03/09/2025 08:10:54 03/08/20 25 03/09/2025 CBC WITH DIFFE RENTI AL/PL ATELE T WBC 8.4 x10e3 /uL 3.4-10 .8 normal Not Available [facility] ([facility]) [address] [place], [address], 03/09/2025 08:10:54 03/08/20 25 03/09/2025 CBC WITH DIFFE RENTI AL/PL ATELE T RBC 3.97 x10e6 /uL 4.14-5 .80 below low normal Not Available [facility] ([facility]) [address] [facility] [place], [address], 03/09/2025 08:10:54 03/08/20 25 03/09/2025 CBC WITH DIFFE RENTI AL/PL ATELE T hemoglobin 11.1 g/dL 13.0-1 7.7 below low normal Not Available [facility] ([facility]) [address] [place], [address], 03/09/2025 08:10:54 03/08/20 25 03/09/2025 CBC WITH DIFFE RENTI AL/PL ATELE T hematocrit 35.3 % 37.5-5 1.0 below low normal Not Available [facility] ([facility]) [address] [place], [address], 03/09/2025 08:10:54 03/08/2003/09/2025 CBC WITH DIFFE RENTI AL/PL ATELE T MCV 89 fL 79-97 normal Not Available [facility] ([facility]) [address] [place], [address], 03/09/2025 08:10:54 03/08/20 25 03/09/2025 CBC WITH DIFFE RENTI AL/PL ATELE T MCH 28.0 pg 26.6-3 3.0 normal Not Available [facility] ([facility]) [address] [place], [address], 03/09/2025 08:10:54 03/08/20 25 03/09/2025 CBC WITH DIFFE RENTI AL/PL ATELE T MCHC 31.4 g/dL 31.5-3 5.7 below low normal Not Available [facility] ([facility]) [address] [place], [address], 03/09/2025 08:10:54 03/08/20 25 03/09/2025 CBC WITH DIFFE RENTI AL/PL ATELE T RDW 14.4 % 11.6-1 5.4 Not Available [facility] ([facility]) [address] [place], [address], 03/09/2025 08:10:54 03/08/20 25 03/09/2025 CBC WITH DIFFE RENTI AL/PL ATELE T platelets 238 x10e3 /uL 150-45 0 normal Not Available [facility] ([facility]) [address] [place], [address], 03/09/2025 08:10:54 03/08/20 25 03/09/2025 CBC WITH DIFFE RENTI AL/PL ATELE T neutrophils 68 % not estab. normal Not Available [facility] ([facility]) [address] [place], [address], 03/09/2025 08:10:54 03/08/20 25 03/09/2025 CBC WITH DIFFE RENTI AL/PL ATELE T lymphs 18 % not estab. normal Not Available [facility] ([facility]) [address] [place], [address], 03/09/2025 08:10:54 03/08/20 25 03/09/2025 CBC WITH DIFFE RENTI AL/PL ATELE T monocytes 9 % not estab. normal Not Available [facility] ([facility]) [address] [place], [address], 03/09/2025 08:10:54 03/08/20 25 03/09/2025 CBC WITH DIFFE RENTI AL/PL ATELE T eos 3 % not estab. normal Not Available [facility] ([facility]) [address] [place], [address], 03/09/2025 08:10:54 03/08/20 25 03/09/2025 CBC WITH DIFFE RENTI AL/PL ATELE T basos 1 % not estab. normal Not Available [facility] ([facility]) [address] [place], [address], 03/09/2025 08:10:54 03/08/20 25 03/09/2025 CBC WITH DIFFE RENTI AL/PL ATELE T immature cells BACON DE RINDER Not Available [facility] ([facility]) [address], [place], [address], 03/09/2025 08:10:54 03/08/20 25 03/09/2025 CBC WITH DIFFE RENTI AL/PL ATELE T neutrophils (absolute) 5.9 x10e3 /uL 1.4-7. 0 normal Not Available [facility] ([facility]) [address] [facility], [place], [address], 03/09/2025 08:10:54 03/08/20 25 03/09/2025 CBC WITH DIFFE RENTI AL/PL ATELE T lymphs (absolute) 1.5 x10e3 /uL 0.7-3. 1 normal Not Available [facility] ([facility]) [address] [facility], [place], [address], 03/09/2025 08:10:54 03/08/20 25 03/09/2025 CBC WITH DIFFE RENTI AL/PL ATELE T monocytes(ab solute) 0.8 x10e3 /uL 0.1-0. 9 normal Not Available [facility] ([facility]) [address] [place], [address], 03/09/2025 08:10:54 03/08/20 25 03/09/2025 CBC WITH DIFFE RENTI AL/PL ATELE T eos (absolute) 0.2 x10e3 /uL 0.0-0. 4 normal Not Available [facility] ([facility]) [address] [facility], [place], [address], 03/09/2025 08:10:54 03/08/20 25 03/09/2025 CBC WITH DIFFE RENTI AL/PL ATELE T baso (absolute) 0.1 x10e3 /uL 0.0-0. 2 normal Not Available [facility] ([facility]) [address] [place], [address], 03/09/2025 08:10:54 03/08/20 25 03/09/2025 CBC WITH DIFFE RENTI AL/PL ATELE T immature granulocytes 1 % not estab. Not Available [facility] ([facility]) [address] [facility], [place], [address], 03/09/2025 08:10:54 03/08/20 25 03/09/2025 CBC WITH DIFFE RENTI AL/PL ATELE T immature grans (abs) 0.1 x10e3 /uL 0.0-0. 1 Not Available [facility] ([facility]) [address] [facility], [place], [address], 03/09/2025 08:10:54 03/08/20 25 03/09/2025 CBC WITH DIFFE RENTI AL/PL ATELE T NRBC BACON DE RINDER Not Available [facility] ([facility]) [address] [facility], [place], [address], 03/09/2025 08:10:54 03/08/20 25 03/09/2025 CBC WITH DIFFE RENTI AL/PL ATELE T hematology comments: BACON DE RINDER Not Available [facility] ([facility]) [address] [facility], [place], [address], 03/09/2025 08:10:54 03/08/20 25 03/09/2025 COMP. METAB OLIC PANEL (14) glucose 84 mg/dL 70-99 normal Not Available [facility] ([facility]) [address] [place], [address], 03/09/2025 08:10:55 03/08/20 25 03/09/2025 COMP. METAB OLIC PANEL (14) BUN 12 mg/dL 8-27 normal Not Available [facility] ([facility]) [address] [place], [address], 03/09/2025 08:10:55 03/08/20 25 03/09/2025 COMP. METAB OLIC PANEL (14) creatinine 0.89 mg/dL 0.76-1 .27 normal Not Available [facility] ([facility]) [address] [facility], [place], [address], 03/09/2025 08:10:55 03/08/20 25 03/09/2025 COMP. METAB OLIC PANEL (14) eGFR 91 mL/mi n/1.7 3 >59 normal Not Available [facility] ([facility]) [address] [facility] [place], [address], 03/09/2025 08:10:55 03/08/20 25 03/09/2025 COMP. METAB OLIC PANEL (14) BUN/creatini ne ratio 13 10-24 normal Not Available [facility] ([facility]) [address] [facility] [place], [address], 03/09/2025 08:10:55 03/08/20 25 03/09/2025 COMP. METAB OLIC PANEL (14) sodium 139 mmol/ L 134-14 4 normal Not Available [facility] ([facility]) [address] [facility] [place], [address], 03/09/2025 08:10:55 03/08/20 25 03/09/2025 COMP. METAB OLIC PANEL (14) potassium 3.5 mmol/ L 3.5-5. 2 normal Not Available [facility] ([facility]) [address] [facility] [place], [address], 03/09/2025 08:10:55 03/08/20 25 03/09/2025 COMP. METAB OLIC PANEL (14) chloride 103 mmol/ L 96-106 normal Not Available [facility] ([facility]) [address] [facility] [place], [address], 03/09/2025 08:10:55 03/08/20 25 03/09/2025 COMP. METAB OLIC PANEL (14) carbon dioxide, total 21 mmol/ L 20-29 normal Not Available [facility] ([facility]) [address] [facility] [place], [address], 03/09/2025 08:10:55 03/08/20 25 03/09/2025 COMP. METAB OLIC PANEL (14) calcium 8.8 mg/dL 8.6-10 .2 normal Not Available [facility] ([facility]) [address] [facility] [place], [address], 03/09/2025 08:10:55 03/08/20 25 03/09/2025 COMP. METAB OLIC PANEL (14) protein, total 6.7 g/dL 6.0-8. 5 normal Not Available [facility] ([facility]) [address] [facility] [place], [address], 03/09/2025 08:10:55 03/08/20 25 03/09/2025 COMP. METAB OLIC PANEL (14) albumin 4.2 g/dL 3.8-4. 8 normal Not Available [facility] ([facility]) [address] [facility] [place], [address], 03/09/2025 08:10:55 03/08/20 25 03/09/2025 COMP. METAB OLIC PANEL (14) globulin, total 2.5 g/dL 1.5-4. 5 Not Available [facility] ([facility]) [address] [facility] [place], [address], 03/09/2025 08:10:55 03/08/20 25 03/09/2025 COMP. METAB OLIC PANEL (14) bilirubin, total 0.6 mg/dL 0.0-1. 2 normal Not Available [facility] ([facility]) [address] [facility] [place], [address], 03/09/2025 08:10:55 03/08/20 25 03/09/2025 COMP. METAB OLIC PANEL (14) alkaline phosphatase 61 IU/L 44-121 normal Not Available [facility]) [address] [facility] [place], [address], 03/09/2025 08:10:55 03/08/20 25 03/09/2025 COMP. METAB OLIC PANEL (14) AST (SGOT) 18 IU/L 0-40 normal Not Available [facility] ([facility]) [address] [facility] [place], [address], 03/09/2025 08:10:55 03/08/20 25 03/09/2025 COMP. METAB OLIC PANEL (14) ALT (SGPT) 14 IU/L 0-44 normal Not Available [facility] ([facility]) [address] [facility] [place], [address], 03/09/2025 08:10:55 03/08/20 25 03/09/2025 LIPID PANEL cholesterol, total 144 mg/dL 100-19 9 normal Not Available [facility] ([facility]) [address] [place], [address], 03/09/2025 08:10:55 03/08/20 25 03/09/2025 LIPID PANEL triglyceride s 165 mg/dL 0-149 above high normal Not Available [facility] ([facility]) [address] [place], [address], 03/09/2025 08:10:55 03/08/20 25 03/09/2025 LIPID PANEL HDL cholesterol 40 mg/dL >39 normal Not Available [facility]) [address] [place], [address], 03/09/2025 08:10:55 03/08/20 25 03/09/2025 LIPID PANEL VLDL cholesterol mirella 28 mg/dL 5-40 Not Available [facility] ([facility]) [address] [place], [address], 03/09/2025 08:10:55 03/08/20 25 03/09/2025 LIPID PANEL LDL chol calc ([facility]) 76 mg/dL 0-99 Not Available [facility]) [address] [place], [address], 03/09/2025 08:10:55 03/08/2003/09/2025 LIPID PANEL LDL calc comment: BACON DE RINDER Not Available [facility] ([facility]) [address] [facility], [place], [address], 03/09/2025 08:10:55 03/08/20 25 03/09/2025 VITAM IN B12 AND FOLAT E vitamin B12 399 pg/mL 232-12 45 normal Not Available [facility] ([facility]) [address] [facility], [place], [address], 03/09/2025 08:10:56 03/08/2003/09/2025 VITAM IN B12 AND FOLAT E folate (folic acid), serum 5.0 NG/mL >3.0 normal A serum folat e scar ntrat ion of less than 3.1 ng/mL is consi dered to repre sent clini mirella defic iency . Not Available [facility] ([facility]) [address] [facility], [place], [address], 03/09/2025 08:10:56 03/08/2003/09/2025 HEMOG LOBIN A1C hemoglobin A1C 5.7 % 4.8-5. 6 above high normal Predi abete s: 5.7 - 6.4 Diabe sami: >6.4 Glyce mathew contr ol for adult s with diabe sami: <7.0 Not Available [facility] ([facility]) [address] [facility], [place], [address], 03/09/2025 08:10:56 03/08/2003/09/2025 PROST ATE-S PECIF IC [...] [facility] ([facility]) [address] [facility], [place], [address], 03/09/2025 08:10:56 03/08/2003/09/2025 VITAM IN D, 25-HY [...] Evelio amaya [place]: [facility] . 2. Myah rose [place], Romana laurent [place], [place] off-F errar i RODRIGES, et al. Evalu ation , treat ment, and preve ntion of vitam in D defic iency : an Endoc rine Socie ty clini mirella pract ice guide line. JCEM. 2010; 96(7) :1911 -30. Not Available [facility] ([facility]) [address] [facility], [place], [address], 03/09/2025 08:10:57 Result Notes None recorded. Problems Name Problem SNOMED Code Status Onset Date Resolution Date Notes Provider Name and Address Organization Details Recorded Time Generali zed anxiety disorder [id number] Completed 201609/21/2016 Problem Code: F41.1; Problem Code Type: ICD-10; Maya Torres, MARKETING [employer] INTER[employer] [address] [place], [address] , [email or web address] 3 11:40:35 Allergic rhinitis caused by pollen [id number] Completed 201610/08/2016 Problem Code: J30.1; Problem Code Type: ICD-10; Not Available [facility] 2 21:50:51 Pain in right knee Completed 201608/23/2016 Problem Code: M25.561; Problem Code Type: ICD-10; Not Available [facility] 2 21:50:53 Pain in left knee Completed 201608/23/2016 Problem Code: M25.562; Problem Code Type: ICD-10; Not Available [facility] 2 21:51:03 Knee pain Completed 201608/23/2016 Problem Code: 719.46; Problem Code Type: ICD-9; JUAN ANTONIO mortensen, [email or web address] 2 11:16:05 Acute sinusiti s 56153021 Completed 201610/05/2016 Problem Code: J01.90; Problem Code Type: ICD-10; JUAN ANTONIO mortensen, [email or web address] 2 11:16:05 Pain in right knee Completed 201611/04/2016 Problem Code: M25.561; Problem Code Type: ICD-10; Not Available [facility] 2 21:50:53 Prepatel lar bursitis of right knee [id number] 9100 Completed 201612/20/2016 Not Available [facility] 2 21:50:54 Knee pain Completed 201611/04/2016 Problem Code: 719.46; Problem Code Type: ICD-9; JUAN ANTONIO mortensen [email or web address] 2 11:16:05 Prepatel lar bursitis 49757294 Completed 201612/20/2016 Problem Code: 726.65; Problem Code Type: ICD-9; Not Available [facility] 2 21:51:17 Pain in right knee Completed 201612/13/2016 Problem Code: M25.561; Problem Code Type: ICD-10; Not Available [facility] 2 21:51:02 Knee pain Completed 201612/13/2016 Problem Code: 719.46; Problem Code Type: ICD-9; JUAN ANTONIO mortensen [employer] 2 11:16:05 Allergic rhinitis 40307703 Completed 201603/11/2017 Problem Code: J30.9; Problem Code Type: ICD-10; Not Available [facility] 2 21:50:51 Allergic rhinitis 83139921 Completed 201605/06/2017 Problem Code: J30.9; Problem Code Type: ICD-10; Not Available [facility] 2 21:50:51 Allergic rhinitis caused by pollen 19989935 Completed 201608/02/2017 Problem Code: J30.1; Problem Code Type: ICD-10; Not Available [facility] 2 21:50:51 Hyperten sive disorder 16558791 Completed 201708/30/2017 Problem Code: I10; Problem Code Type: ICD-10; Not Available [facility] 2 21:50:50 Acute sinusiti s 80609062 Completed 201708/12/2017 Problem Code: J01.90; Problem Code Type: ICD-10; JUAN ANTONIO mortensen [employer] 2 11:16:05 Benign essentia l hyperten marquis 1076727 Completed 201701/17/2018 Problem Code: 401.1; Problem Code Type: ICD-9; Not Available [facility] 2 21:51:06 Tinea pedis 6006222 Completed 201711/25/2017 Problem Code: B35.3; Problem Code Type: ICD-10; Not Available [facility] 2 21:50:48 Neck pain 24985770 Completed 201711/25/2017 Not Available [facility] 21:50:53 Hyperest hesia 46948392 Completed 201711/25/2017 Problem Code: R20.3; Problem Code Type: ICD-10; Not Available [facility] 2 21:50:55 Skin sensatio n disturba nce 34030219 Completed 201711/25/2017 Problem Code: 782.0; Problem Code Type: ICD-9; Not Available [facility] 2 21:51:11 Acquired deformit y of toe 96440707 Completed 201701/09/2021 Problem Code: 735.8; Problem Code Type: ICD-9; Not Available [facility] 21:51:11 Onychomy cosis due to dermatop hyte 585246639 Completed 201711/25/2017 Problem Code: 110.1; Problem Code Type: ICD-9; Not Available [facility] 2 21:51:15 Acute sinusiti s 62531206 Completed 201701/31/2018 Problem Code: J01.90; Problem Code Type: ICD-10; JUAN ANTONIO mortensen, [place] [employer] 11:16:05 Non-neop lastic nevus 742374491 Completed 201706/28/2019 Not Available [facility] 21:50:58 Large prostate 797153361 Completed 201703/10/2018 Problem Code: N40.0; Problem Code Type: ICD-10; Not Available [facility] 2 21:51:05 Generali zed atherosc lerosis 51096057 Completed 201701/09/2021 Problem Code: 440.9; Problem Code Type: ICD-9; Not Available [facility] 2 21:51:08 Benign prostati c hyperpla mel 578665057 Completed 201701/09/2021 Problem Code: 600.00; Problem Code Type: ICD-9; Not Available [facility] 2 21:51:09 Lacerati on of finger with foreign body 706176629 Completed 201704/25/2018 Problem Code: S61.222A ; Problem Code Type: ICD-10; Not Available [facility] 21:50:56 Pre-surg marjorie evaluati on Completed 201704/25/2018 Not Available [facility] 21:50:58 Open wound of finger with complica tion 67679480 Completed 201704/25/2018 Problem Code: 883.1; Problem Code Type: ICD-9; Not Available [facility] 21:51:10 Abnormal weight gain 569098161 Completed 201705/09/2018 Problem Code: R63.5; Problem Code Type: ICD-10; Not Available [facility] 21:50:55 Mixed hyperlip idemia 766843817 Completed 201701/09/2021 Problem Code: 272.2; Problem Code Type: ICD-9; Tamar mortensen, [employer] 5 09:56:03 Anemia of chronic disease 244032309 Completed 201706/28/2019 Problem Code: D63.8; Problem Code Type: ICD-10; Not Available [facility] 21:50:49 Prostate specific antigen above referenc e range 596698971 Completed 201705/12/2018 Problem Code: R97.20; Problem Code Type: ICD-10; Not Available [facility] 21:50:56 Iron deficien cy anemia secondar y to inadequa te dietary iron intake 670741007 Completed 201705/27/2018 Problem Code: D50.8; Problem Code Type: ICD-10; Not Available [facility] 21:50:49 Ulcerati ve pancolit is 291911824 Completed 201706/28/2019 Problem Code: K51.00; Problem Code Type: ICD-10; Not Available [facility] 21:50:52 Abscess of limb 936820467 Completed 201705/27/2018 Problem Code: L02.415; Problem Code Type: ICD-10; Not Available [facility] 2 21:51:00 Abscess of leg, except foot 47662008 Completed 201705/27/2018 Not Available [facility] 2 21:51:10 Ulcerati ve colitis 18471710 Completed 201701/09/2021 Problem Code: 556.6; Problem Code Type: ICD-9; Not Available [facility] 2 21:51:16 Anemia due to chronic blood loss 065881659 Active 2017 Problem Code: D50.0; Problem Code Type: ICD-10; Not Available [facility] 21:50:49 Ulcerati ve pancolit is 310396763 Completed 201706/28/2019 Problem Code: K51.00; Problem Code Type: ICD-10; Not Available [facility] 2 21:50:52 Ulcerati ve colitis 27710852 Completed 201701/09/2021 Problem Code: 556.6; Problem Code Type: ICD-9; Not Available [facility] 2 21:51:17 Acute posthemo rrhagic anemia 183260553 Completed 201706/12/2018 Problem Code: D62; Problem Code Type: ICD-10; Not Available [facility] 2 21:50:49 Acute posthemo rrhagic anemia 428552481 Completed 201706/17/2018 Problem Code: D62; Problem Code Type: ICD-10; Not Available [facility] [facility] 2 21:50:49 Acute posthemo rrhagic anemia 540547412 Completed 201706/24/2018 Problem Code: D62; Problem Code Type: ICD-10; Not Available [facility] 2 21:50:49 Pain in right knee Completed 201705/01/2018 Problem Code: M25.561; Problem Code Type: ICD-10; Not Available [facility] 2 21:50:53 Pain in left knee Completed 201705/01/2018 Problem Code: M25.562; Problem Code Type: ICD-10; Not Available [facility] 2 21:50:54 Knee pain Completed 201705/04/2022 Problem Code: 719.46; Problem Code Type: ICD-9; JUAN ANTONIO BROWNNER festus, [employer] 2 11:16:05 Acute sinusiti s 37779241 Completed 201707/03/2018 Problem Code: J01.90; Problem Code Type: ICD-10; JUAN ANTONIO BROWNNER festus, [employer] 2 11:16:05 Acute bronchit is 43595294 Completed 201708/18/2018 Problem Code: J20.9; Problem Code Type: ICD-10; Not Available [facility] 2 21:50:51 Idiopath ic osteoart hritis 302876261 Active 2018 Problem Code: M17.0; Problem Code Type: ICD-10; Not Available [facility] 2 21:51:01 Allergic sensitiz ation 301691128 Completed 201805/04/2022 JUAN ANTONIO mortensen, [employer] 2 11:16:05 Mixed hyperlip idemia 529836656 Active 2018 Problem Code: E78.2; Problem Code Type: ICD-10; Tamar Durham festus, [employer] 5 09:56:03 Large prostate 469848787 Active 2018 Problem Code: N40.0; Problem Code Type: ICD-10; Not Available [facility] 2 21:50:54 Dysthymi a 07972821 Active 2018 Problem Code: R53.81; Problem Code Type: ICD-10; Not Available [facility] 2 21:51:11 Primary insomnia 8288060 Active 2018 Problem Code: F51.01; Problem Code Type: ICD-10; Not Available [facility] 2 21:50:50 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 59445885 Active 2018 Problem Code: M50.00; Problem Code Type: ICD-10; Not Available [facility] 21:50:54 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 78558237 Active 2018 Problem Code: G90.09; Problem Code Type: ICD-10; Not Available [facility] 21:50:50 Pain in left knee Active 2018 Problem Code: M25.562; Problem Code Type: ICD-10; Not Available [facility] 2 21:50:53 Post-mahesh gical wound care Completed 201805/04/2022 Problem Code: Z48.02; Problem Code Type: ICD-10; JUAN ANTONIO mortensen [employer] 11:16:05 Body mass index 30+ - obesity 461027380 Active 2018 Problem Code: Z68.35; Problem Code Type: ICD-10; Not Available [facility] 21:50:59 Diabetes mellitus screenin g Completed 201805/04/2022 Problem Code: Z13.1; Problem Code Type: ICD-10; JUAN ANTONIO mortensen [employer] 11:16:05 Body mass index 30+ - obesity 025984939 Completed 201807/17/2020 Problem Code: Z68.35; Problem Code Type: ICD-10; Not Available [facility] 2 21:51:01 [facility] 74570181 Completed 201812/14/2019 Problem Code: J98.11; Problem Code Type: ICD-10; Not Available [facility] 21:50:52 General examinat ion of patient Completed 201806/28/2019 JUAN ANTONIO mortensen [employer] 2 11:16:05 Body mass index 30+ - obesity 569445967 Completed 201807/17/2020 Problem Code: Z68.35; Problem Code Type: ICD-10; Not Available [facility] 21:51:01 Body mass index 30+ - obesity 189242843 Completed 201807/17/2020 Problem Code: Z68.35; Problem Code Type: ICD-10; Not Available [facility] 2 21:51:00 Body mass index 30+ - obesity 682318882 Completed 201907/17/2020 Problem Code: Z68.36; Problem Code Type: ICD-10; Not Available [facility] 2 21:51:13 Disorder of skin and/or subcutan eous tissue 93719003 Completed 201905/04/2022 JUAN ANTONIO mortensen, [employer] 11:16:05 Body mass index 30+ - obesity 261422194 Completed 201907/17/2020 Problem Code: Z68.36; Problem Code Type: ICD-10; Not Available [facility] 2 21:51:00 General examinat ion of patient Completed 201905/04/2022 JUAN ANTONIO ARELLANO [facility], [email or web address] 2 11:16:05 General examinat ion of patient Completed 202009/15/2020 JUAN ANTONIO EILEEN [facility], [employer] 11:16:05 Body mass index 30+ - obesity 903699328 Completed 202009/15/2020 Problem Code: Z68.36; Problem Code Type: ICD-10; Not Available [facility] 2 21:51:14 Cough 10048614 Completed 202004/02/2021 Problem Code: R05; Problem Code Type: ICD-10; Not Available [facility] 21:50:54 Acute sinusiti s 42937578 Completed 202005/04/2022 Problem Code: J01; Problem Code Type: ICD-10; JUAN ANTONIO mortensen, [email or web address] 2 11:16:05 Eruption 770651364 Completed 202005/04/2022 Problem Code: R21; Problem Code Type: ICD-10; JUAN ANTONIO mortensen, [email or web address] 2 11:16:05 Contusio n of anterior abdomina l wall 036253663 Completed 202005/04/2022 JUAN ANTONIO mortensen, [email or web address] 2 11:16:05 Malignan t neoplasm of skin 476559953 Completed 202004/02/2021 Problem Code: C44.90; Problem Code Type: ICD-10; Not Available [facility] 2 21:50:49 Allergic rhinitis 69324381 Active 2020 Problem Code: J30.9; Problem Code Type: ICD-10; Not Available [facility] 21:50:52 Abrasion of skin of palm of hand 966454087 Completed 202109/24/2021 Not Available [facility] 21:50:56 Current drug user 484537924 Active 2021 Problem Code: Z79.899; Problem Code Type: ICD-10; Not Available [facility] 2 21:51:02 Acute frontal sinusiti s 39549343 Completed 202105/04/2022 Problem Code: J01.1; Problem Code Type: ICD-10; JUAN ANTONIO mortensen, [email or web address] 2 11:16:06 Generali zed anxiety disorder 99325373 Active 2022 Problem Code: F41.1; Problem Code Type: ICD-10; Maya Torres APRN [address] [place] [address], [address] , [email or web address] 3 11:40:35 Problem Notes None recorded. Procedures Surgical History Date Name Laterality Status Provider Name and Address Organization Details Recorded Time 7 hernia repair completed Not Available [facility] 03/23/2022 22:56:15 Imaging Results None [...] Updated DateTime 5 175.26 cm 37.7 kg/m2 387768. 05 g 87 /min 94 % 192/72 mm[Hg] 158/78 mm[Hg] 132/76 mm[Hg] Tamar Durham [facility] [employer] 5 11:32:00 Date Recorded Body height Body mass index (BMI) Body weight Heart rate Oxygen saturation Systolic And Diastolic Provider Name and Address Organization Details Last Updated DateTime 5 175.26 cm 38.3 kg/m2 042172. 82 g 96 /min 92 % 130/80 mm[Hg] Tamar Durham [employer] 5 13:49:03 Date Recorded Body height Body mass index (BMI) Body weight Heart rate Oxygen saturation Systolic And Diastolic Provider Name and Address Organization Details Last Updated DateTime 5 175.26 cm 36.9 kg/m2 853783. 09 g 101 /min 92 % 130/79 mm[Hg] Tamar Durham [employer] 5 10:51:45 Date Recorded Body height Body mass index (BMI) Body weight Body temperature Heart rate Oxygen saturation Systolic And Diastolic Provider Name and Address Organization Details Last Updated DateTime 5 175.26 cm 36.9 kg/m2 611295. 09 g 97.3 [degF] 71 /min 90 % 138/81 mm[Hg] Tamar [employer] 5 08:44:21 Date Recorded Body height Body mass index (BMI) Body weight Heart rate Oxygen saturation Systolic And Diastolic Provider Name and Address Organization Details Last Updated DateTime 5 175.26 cm 36.8 kg/m2 013785. 5 g 83 /min 91 % 134/85 mm[Hg] Tamar [employer] 5 10:47:28 Social History Question Answer Notes LastModified by Organizat ion Details LastModified Time Tobacco Smoking Status Former Smoker JUAN ANTONIO mortensen [employer] 05/04/2022 11:17:53 Do You Have An Advance Directive? No [email or web address] Information n ot available 06/04/2022 Are You Blind Or Do You Have Difficulty Seeing? No [email or web address] Information n ot available 05/04/2022 What Is Your Level Of Caffeine Consumption? Moderate Information not available 11/30/2022 Are You A Caregiver? No [email or web address] Information not available 06/04/2022 In The 14 [...] Type Of Diet Are You Following? REGULAR [email or web address] Information n ot available 06/04/2022 Have There Been Any Changes To Your Family Or Social Situation? No [email or web address] Information no t available 06/04/2022 When Did You Quit Smoking? 6-10yearssinc elastcigarett e Information not available 06/01/2024 Do You Have A Medical Power Of Double End Chucking Machine Operator? No [email or web address] Information not available 06/04/2022 What Was The Date Of Your Most Recent Tobacco Screening? 05/09/2025 Information not available 05/09/2025 What Is Your Current Pack Years? 20-29packyear s [email or web address] Information not available 05/04/2022 What Is Your Relationship Status? [email or web address] Information not available 05/04/2022 Do You Use Your Seat Belt Or Car Seat Routinely? Yes [email or web address] Information not available 06/04/2022 Do You Have Smoke And Carbon Monoxide Detectors In Your Home? Yes [email or web address] Information not available 06/04/2022 How Much Tobacco Do You Smoke? 1 PPD Information not available 06/01/2024 Do You Use Sunscreen Routinely? No [email or web address] Information not available 06/04/2022 Have You Recently Traveled Abroad? No Information not available 06/04/2022 Do You Have Difficulty Walking Or Climbing Stairs? No [email or web address] Information not available 05/04/2022 Are You Currently In School? No Information not available 06/04/2022 Do You Have Any Dietary Restrictions? No [email or web address] Information not available 06/04/2022 Sex: Male Functional Status Question Answer Note LastModified by Organizat ion Details LastModified Time Do you use any illicit or recreational drugs? No Information not available 11/30/2022 What is your level of alcohol consumption? None [email or web address] Information not available 05/04/2022 Are you currently employed? No [email or web address] Information not available 06/04/2022 Do you have transportation difficulties? No [email or web address] Information not available 05/04/2022 Are you able to walk independently without assistance or assistive devices? YESWOREST [email or web address] Information not available 05/04/2022 Do you have difficulty doing errands alone? No [email or web address] Information not available 05/04/2022 Are you able to care for yourself independently? Yes [email or web address] Information not available 05/04/2022 Do you have difficulty dressing, bathing, grooming, or toileting? No [email or web address] Information not available 05/04/2022 What is your exercise level? None [email or web address] Information not available 06/04/2022 Mental Status Question Answer Note LastModified by Organization D etails LastModified Time Do you have difficulty concentrating, remembering or making decisions? No [email or web address] Information no t available 05/04/2022 Family History Relationship Description Onset Age of this Age Resolved Age Notes LastModified by Organization Details LastModified Time Unspecified Relation Family history of Hypertension [email or web address] Not available 11:16:26 Unspecified Relation Family history of malignant neoplasm Not available 05/04 11:16:34 Unspecified Relation Family history of polyp of colon [email or web address] Not available 05/04 11:16:39 Medical History Condition Response Allergies (Food, seasonal, environmental ) Y GI Problems Y Hypertension Y Immunizations Vaccine Type Date Status Note Provider Name and Address Organization Details Recorded Time zoster recombinant 024 cancelled patient objection Maya Torres APRN [address] [place], [address], [employer] 10/03/2023 13:15:21 pneumococcal polysaccharide PPV23 019 completed Tamar mortensen [employer] 05/09/2025 10:23:09 Pneumococcal conjugate PCV 13 018 completed Tamar Durham null, [employer] 05/09/2025 10:23:09 COVID-19, mRNA, LNP-S, PF, 100 mcg/0.5mL dose or 50 mcg/0.25mL dose 021 completed Tamar Durham null, [employer] 05/09/2025 10:23:09 COVID-19, mRNA, LNP-S, PF, 100 mcg/0.5mL dose or 50 mcg/0.25mL dose 021 completed Tamar Durham null, [employer] 05/09/2025 10:23:09 COVID-19, mRNA, LNP-S, PF, 100 mcg/0.5mL dose or 50 mcg/0.25mL dose 021 completed Tamar Durham null, [employer] 05/09/2025 10:23:09 Influenza, high-dose, trivalent, PF 019 completed JUAN ANTONIO ARELLANO null, [employer] 07/02/2022 11:24:10 Influenza, split virus, trivalent, PF 017 completed JUAN ANTONIO ARELLANO null, [employer] 07/02/2022 11:24:10 Influenza, MDCK, quadrivalent, PF 016 completed JUAN ANTONIO ARELLANO null, [employer] 07/02/2022 11:24:10 Tdap 016 completed JUAN ANTONIO ARELLANO null, [employer] 07/02/2022 11:24:10 Influenza, high-dose, trivalent, PF 018 completed JUAN ANTONIO ARELLANO null, [employer] 07/02/2022 11:24:10 COVID-19, mRNA, LNP-S, bivalent, PF, 50 mcg/0.5 mL or 25mcg/0.25 mL dose 022 completed JUAN ANTONIO mortensen, [employer] 07/02/2022 11:24:10 Influenza, high-dose, quadrivalent, PF 022 completed JUAN ANTONIO mortensen, [employer] 07/02/2022 11:24:10 Influenza, high-dose, quadrivalent, PF 021 completed JUAN ANTONIO mortensen [employer] 07/02/2022 11:24:10 RSV, recombinant, protein subunit RSVpreF, adjuvant reconstituted, 0.5 mL, PF 023 completed Not Available [facility] 05/09/2025 10:21:48 Influenza, high-dose, quadrivalent, PF 023 completed Not Available [facility] 05/09/2025 10:21:48 Influenza, high-dose, trivalent, PF 024 completed Not Available [facility] 05/09/2025 10:21:48 Pneumococcal conjugate PCV20, polysaccharide HEP247 conjugate, adjuvant, PF 025 completed Not Available [facility] 05/09/2025 10:21:48 Influenza, high-dose, trivalent, PF 025 completed Not Available [facility] 05/09/2025 10:21:48 Influenza, high-dose, quadrivalent, PF 020 completed Tamar mortensen, [place] [employer] 05/09/2025 10:23:09 Past Encounters Encounter ID Performer Location Encounter Start Date Encounter Closed Date Diagnosis/Indication Diagnosis SNOMED-CT Code Diagnosis ICD10 Code Diagnosis IMO Codes Diagnosis Note [id number] Maya Torres [address] [address] 05/04/2022 11:06:44 05/04/2022 11:36:23 Dysthymia 57390052 R53.81 Idiopathic peripheral autonomic neuropathy 73856222 G90.09 [id number] Maya Torres [address] [address] 06/04/2022 10:50:55 06/04/2022 11:05:53 Idiopathic peripheral autonomic neuropathy 40866838 G90.09 Anxiety 13303410 F41.9 Allergic rhinitis 234170 04 J30.9 Body mass index 30+ - obesity 545150540 Z68.38 Acute sinusitis 65747765 J01.90 Dysthymia 68086536 R53.8 1 [id number] [place] [address] 07/02/2022 11:05:52 07/02/2022 11:41:18 Idiopathic peripheral autonomic neuropathy 22760433 G90.09 Mixed hyperlipidemia 267 555018 E78.2 Anxiety 46936806 F41.9 Body mass index 30+ - obesity 430518193 Z68.38 [id number] [place] [address] 07/15/2022 10:31:53 07/15/2022 13:11:18 Acute upper respiratory infection 41543733 J06.9 [id number] [place] [address] 0 08/02/2022 11:24:44 08/02/2022 11:46:36 Anxiety 30627109 F41.9 Allergic rhinitis 657397 04 J30.9 Idiopathic peripheral autonomic neuropathy 01948956 G90.09 Body mass index 30+ - obesity 356344176 Z68.38 [id number] [place] [address] 09/02/2022 11:07:10 09/02/2022 11:51:01 Dysthymia 69531019 R53.81 Anxiety 09180916 F41.9 Idiopathic peripheral autonomic neuropathy 54691315 G90.09 Body mass index 30+ - obesity 346907380 Z68.38 [id number] Maya Torres [place] [address] 10/01/2022 11:06:15 10/01/2022 11:37:36 Idiopathic peripheral autonomic neuropathy 16504973 G90.09 Anxiety 49475002 F41.9 Acute sinusitis 98220715 J01.90 [id number] [place] [address] 11/01/2022 10:18:50 11/01/2022 10:51:54 Cough 48277444 R05.9 Wheezing 07655643 R06.2 Idiopathic peripheral autonomic neuropathy 20583856 G90.09 Anxiety 41668217 F41.9 Body mass index 30+ - obesity 961392276 Z68.38 [id number] Maya Torres [address] 0 11/30/2022 10:11:55 11/30/2022 10:33:30 Gastroesophageal reflux disease without esophagitis 009960243 K21.9 Anxiety 18540275 F41.9 Idiopathic peripheral autonomic neuropathy 96335575 G90.09 Allergic rhinitis 642871 04 J30.9 [id number] Maya Torres [place] [address] 0 12/31/2022 10:19:21 12/31/2022 11:25:07 Fatigue 84599316 R53.83 Mixed hyperlipidemia 267 405317 E78.2 Nocturia 581407463 R35.1 Long-term drug therapy 735595636 Z79.899 Idiopathic peripheral autonomic neuropathy 36722516 G90.09 Anxiety 18155695 F41.9 Body mass index 30+ - obesity 148152544 Z68.38 [id number] [place] [address] 01/31/2023 10:35:26 01/31/2023 11:13:41 Idiopathic peripheral autonomic neuropathy 12161448 G90.09 Anxiety 91704444 F41.9 [id number] [place] [address] 03/03/2023 10:21:47 03/03/2023 10:54:56 Idiopathic peripheral autonomic neuropathy 36759454 G90.09 Anxiety 97404925 F41.9 Body mass index 30+ - obesity 337615180 Z68.38 [id number] [place] [address] 0 04/04/2023 11:25:04 04/04/2023 11:54:55 Allergic rhinitis 33596663 J30.9 Anxiety 99201376 F41.9 Idiopathic peripheral autonomic neuropathy 36418417 G90.09 Body mass index 30+ - obesity 861019742 Z68.38 [id number] [place] [address] 0 06/03/2023 10:34:54 06/03/2023 11:28:21 Dyspnea on exertion 63877000 R06.09 Essential hypertension 83022193 I10 Mixed hyperlipidemia 267 076157 E78.2 Idiopathic peripheral autonomic neuropathy 08758158 G90.09 Generalize d anxiety disorder 36439553 F41.1 Body mass index 30+ - obesity 371852362 Z68.38 [id number] [place] [address] 08/04/2023 10:38:40 08/04/2023 11:02:33 Dyspnea on exertion 62858508 R06.09 Anxiety 74411159 F41.9 Idiopathic peripheral autonomic neuropathy 89337663 G90.09 Body mass index 30+ - obesity 602555147 Z68.38 [id number] [place] [address] 0 10/03/2023 10:34:44 10/03/2023 11:27:11 Long-term drug therapy 625624148 Z79.899 Body mass index 30+ - obesity 483257080 Z68.38 Adult [facility] th examination 886215706 Z00.[address] vaccination declined 3915233563 102 Z28.20 Anxiety 81083283 F41.9 Idiopathic peripheral autonomic neuropathy 30298207 G90.09 Large prostate 746043071 N40.0 Mixed hyperlipidemia 267 197505 E78.2 Fatigue 27222667 R53.83 Chronic cough 08373660 R 05.3 [id number] Maya Torres, [employer] [place] [address] 12/02/2023 10:24:11 12/02/2023 11:04:47 Pain of left hip joint 2062123002 39070 M25.552 Anxiety 19886169 F41.9 Idiopathic peripheral autonomic neuropathy 65158973 G90.09 Body mass index 30+ - obesity 065542833 Z68.38 [id number] [place] [address] 01/31/2024 10:36:29 01/31/2024 11:31:01 Idiopathic peripheral autonomic neuropathy 54911342 G90.09 Anxiety 01044976 F41.9 Pain of le ft hip joint 8329751478 76867 M25.552 Body mass index 30+ - obesity 998193964 Z68.38 [id number] [place] [address] 04/03/2024 10:26:32 04/03/2024 10:52:47 Pain of left hip joint 3006301025 91637 M25.552 Idiopathic peripheral autonomic neuropathy 60453549 G90.09 Generalize d anxiety disorder 49511668 F41.1 Body mass index 30+ - obesity 049342746 Z68.38 [id number] [place] [address] 06/01/2024 13:40:03 06/01/2024 14:09:33 Idiopathic osteoarthritis 298136743 M17.0 Acute sinusitis 61682285 J01.90 Generalize d anxiety disorder 70405601 F41.1 Idiopathic peripheral autonomic neuropathy 49557984 G90.09 Body mass index 30+ - obesity 095525860 Z68.38 [id number] Maya Torres [place] [id number] 07/31/2024 10:27:29 07/31/2024 13:01:30 Generalized anxiety disorder 16899944 F41.1 Pneumonia 692217102 J18. 9 Chronic ob structive pulmonary disease 54578760 J44.9 Abdominal pain 36263147 R10.9 Fatigue 66101845 R53.83 Hyperlipidemia 78014233 E78.5 Hyperglycemia 75181167 R 73.9 Vitamin D deficiency 347 09856 E55.9 Vitamin B deficiency 479 06711 E53.9 Nocturia 433386995 R35.1 Iron defic iency anemia 45570187 D50.9 Body mass index 30+ - obesity 534914972 Z68.38 [id number] [place] [address] 09/27/2024 11:09:36 09/27/2024 11:58:20 Long-term drug therapy 829850465 Z79.899 Gastroesop hageal reflux disease without esophagitis 598472190 K21.9 Generalize d anxiety disorder 44678130 F41.1 Body mass index 30+ - obesity 142829117 Z68.38 [id number] [place] [address] 12/03/2024 13:33:16 12/03/2024 14:18:36 Generalized anxiety disorder 20045702 F41.1 Idiopathic osteoarthritis 514868346 M17.0 Body mass index 30+ - obesity 142364454 Z68.38 223292 [id number] [place] [address] 02/01/2025 10:37:10 02/01/2025 11:13:22 Generalized anxiety disorder 01367991 F41.1 controlled substance agreement and drug screen UTD at this time. Body mass index 30+ - obesity 369671768 Z68.38 800539 Allergic rhinitis 763870 04 J30.9 Dysthymia 41233808 R53.8 1 Large prostate 863428036 N40.0 Chronic ob structive pulmonary disease 26341825 J44.9 Pain of mu ltiple joints 11818226 M25.50 805776 [id number] [place] [address] 03/08/2025 08:21:58 03/08/2025 10:43:55 Acute bacterial sinusitis 44409182 J01.90 B96.89 55616 Fatigue 62177603 R53.83 9258376 Mixed hyperlipidemia 267 980137 E78.2 60488 Hyperglycemia 48052246 R 73.9 54815 Nocturia 462092177 R35.1 27839 Vitamin D deficiency 347 10897 E55.9 47420 Cobalamin deficiency 190 744360 E53.8 64358 History an d physical examination, annual for health maintenance 97347529 Z00.00 5583634785 Body mass index 30+ - obesity 477052601 Z68.36 [id number] [place] [address] 05/09/2025 10:20:23 05/09/2025 11:27:11 Generalized anxiety disorder 04251032 F41.1 controlled substance agreement and drug screen UTD at this time. Essential hypertension 54235933 I10 Gastroesop hageal reflux disease without esophagitis 051363121 K21.9 Allergic rhinitis 291109 04 J30.9 Body mass index 30+ - obesity 481280064 Z68.36 948633 Health Concerns Section Related Observation LastModified by Organization Detai ls LastModified Time None Recorded Concern Status LastModified by Organization Details LastModified Time None Recorded Advance Directives Directive N: Payers Insurance Date Sequence Insurance Name Policy Number Policy Sutherland Covered Member ID Sutherland Member ID Guarantor Name 12/05/2024 [place] [employer] - [facility] Stephane Mendieta [id number] Stephane Mendieta 05/06/2025 [place] [employer] [place] [facility] Stephane Mendeita [id number] Stephane Mendieta 05/06/2025 2 [employer] SU[employer]AL - [employer]URANCE (MEDICARE SUPPLEMENT) Stephane Mendieta [id number] Stephane Mendieta 05/06/2025 1 [place] Stephane Mendieta [id number] 4 Stephane Mendieta Notes Date Note Type Note Provider Name and Address Organization Details Recorded Time 09/27/2024 text/html 73 year old male presents for chronic disease fu. Denies acute concerns at this time. [facility] pulm gave him samples of trelegy but is unable to afford it monthly. Will give him samples today. States cough has improved. He recently got refill on lorazepam since he forgot to request febs refill. He is to let us know when he need his next refill. pt agrees Maya Torres APRN [address] [place], [address], [employer] 09/27/2024 12:37:03 12/03/2024 text/html pt here today for medication refills. pt states hes doing well on current medication regime and has no new complaints today. pt states that he has recently had more skin cancers removed, and needs another one removed. he is having spinal sx again the first of december to replace a lead. Maya Torres APRN [address] [place], [address], [employer] 12/03/2024 15:29:36 02/01/2025 text/html pt here today [...] he doesnt care. Maya Torres APRN [address] [place], [address], [employer] 02/01/2025 12:22:29 03/08/2025 text/html Annual WellnessReported [...] fluids. return for worsening symptoms. Tamar mortensen, [email or web address] 03/08/2025 10:12:47 05/09/2025 text/html pt here today for medication refills. pt states hes doing well on current medication regime and has no new complaints today. pt requested more trelegy samples and i gave him 4. Maya Torres, [address] [place], [address], [facility] [employer] 05/09/2025 18:02:01
--- OUTSIDE RECORDS SUMMARY | 2025-07-15 10:41 | XMS_ITS | Encounter Summary ---
Author Organization [employer] ([place], [place], [place], [place], [place]) Address [address] [place] [address] Care Team Providers Care Hazardous Waste Technician Name Role Phone Maya Torres Reji BELCHER Primary Care Provider [phone] Encounter Details Date Type Department Care Team (Late st Contact Info) Description 06/16/2018 Transcribed Document [facility] Family Medicine [facility] [place] [address] ProviderJean MD [address] [place], [place] [address] Social History Tobacco Use Types Packs/Day Years Used Date Smoking Tobacco: Never Assessed Sex and Gender Information Value Date Recorded Sex Assigned at Not on file Legal Sex Male 5:19 PM CDT Gender Identity Not on file Sexual Orientation Not on file documented as of this encounter Miscellaneous Notes * Cerner Conversion Note - Jean Sawant MD - 06/16/2018 8:43 AM SLATE SPLITTING SUPERVISOR Patient: ISATU MENDIETA Age: 67 Years Sex: [...] 84 CXR- NAD Electronically signed by Ileana, [facility] Conversion Seafood And Service Meat Manager Cerner at 11/04/2022 3:24 PM CDT documented in this encounter Plan of Treatment Not on file documented as of this encounter Visit Diagnoses Not on filedocumented in this encounter Care Teams Hazardous Waste Technician Relationship Specialty Start Date End Date Maya Torres, JAVASCRIPT PROGRAMMER [address] [address] PCP - General Family Medicine 08/27/22 documented as of this encounter
--- OUTSIDE RECORDS SUMMARY | 2025-07-15 10:41 | XMS_ITS | Encounter Summary ---
Author Organization [employer] ([place], [place], [place], [place], [place]) Address [address] [place] [address] Care Team Providers Care Taxonomy Teacher Name Role Phone Maya Torres Reji BELCHER Primary Care Provider [phone]- [phone] Encounter Details Date Type Department Care Team (Late st Contact Info) Description 10/18/2020 Transcribed Document [facility] [place] [address] [place] [address] ProviderJean MD [address] [place], [place] [address] Social History Tobacco Use Types Packs/Day Years Used Date Smoking Tobacco: Never Assessed Sex and Gender Information Value Date Recorded Sex Assigned at Not on file Legal Sex Male 5:19 PM CDT Gender Identity Not on file Sexual Orientation Not on file documented as of this encounter Miscellaneous Notes * Cerner Conversion Note - Jean ProviderMD - 10/18/2020 7:05 PM CDT [place] Suicide Severity Rating Scale (C-SSRS) Entered On: 10/18/2020 19:42 EDT Performed On: 10/18/2020 19:41 EDT by Dee Ocampo RN [place] Suicide Severity Rating Scale (C-SSRS) CSSRS Past [...] on filedocumented in this encounter Care Teams Taxonomy Teacher Relationship Specialty Start Date End Date Maya Torres, SEWER CONTRACTOR [address] [address] PCP - General Family Medicine 08/27/22 documented as of this encounter
--- OUTSIDE RECORDS SUMMARY | 2025-07-15 10:41 | XMS_ITS | Clinical Summary ---
Author Organization [facility] Address [address] [place] [address] Phone Care Team Providers Care Metal Reed Tuner Name Role Phone Jose Cruz COLEMAN, Domingo Jett Unavailable [phone] Olga Licea APRN Unavailable [phone] Reason for Visit and Chief Complaint The Chief Complaint is: back pain Problems Includes: Problems addressed during this encounter and other active Problems All Visits Onset Date Date of Diagnosis Resolved Date Provider Condition Status Soft Tissue Pain Hand 12/05/2024 12/05/2024 Flako Pulido PA-C Active Last Documented On 5 1:43AM ; [facility], [facility] History of Lower Back Pain M idline Right Side 04/12/2022 04/12/2022 Holden Modi PA-C Active Last Documented On 5 1:41AM ; [facility], [facility] Joint Pain Left Thumb 03/12/2021 03/12/2021 Charles Hernandez MD Active Last Documented On 5 1:40AM ; [facility], [facility] Joint Pain in Both Knees 04/05/2019 04/05/2019 Arlet Billingsley MD Active Last Documented On 5 1:39AM ; [facility] Plan of Treatment - Patient screened for future fall risk: documentation of any fall with injury in past year - Last Documented On 06/11/2025 1:20PM ; [facility], [facility] Fall Risk [...] - Last Documented On 06/11/2025 1:20PM ; [facility] Future Appointments Date Time Location Provi tahira Post Op 07/19/2025 11:00AM [facility] MIAH Modi PA-C Last Documented On 5 10:29AM ; [facility] Instructions to patient Lose weight Last Documented On 8:58AM ; [facility] Assessments Includes: Assessments from this encounter Findings - Overweight - Last Documented On 06/11/2025 1:20PM ; [facility] Instructions Includes: Instructions from this encounter Instructions to patient Lose weight Last Documented On 8:58AM ; [facility] Medical Equipment - Implanted Devices Includes: Current Devices No Medical Equipment Recorded Medications Includes: Medications discussed during this encounter and other current Medications Current Medications (continue as prescribed) Percocet 5-325 MG Oral Tablet 07/03/2025 - 07/18/2025 Provider: Issa Rodriguez MD Diagnosis: 1 po q 4h prn pain Last Documented On 5 8:39AM By Issa Rodriguez ; [facility] Clindamycin HCl 300 MG Oral Capsule 01/07/2025 Provi tahira: Holden Modi PA-C Diagnosis: Last Documented On 5 10:36AM By Quentin Burk ; [facility] oxyCODONE-Acetaminophen 5-325 MG Oral Tablet Provider: Issa Rodriguez MD Diagnosis: Last Documented On 5 9:50AM By Quentin Burk ; [facility] Pantoprazole Sodium 40 MG Or al Tablet Delayed Release 12/09/2024 Provider: Maya Torres APRN Diagnosis: Last Documented On 5 9:50AM By Quentin Burk ; [facility] LORazepam 1 MG Oral Tablet 12/04/2024 Provider: M ichelle Stone ARMOURED CAR ESCORT Diagnosis: Last Documented On 5 9:50AM By Quentin Burk ; [facility] Doxycycline Hyclate 100 MG Oral Capsule 12/04/2024 Papito washingtonder: Diagnosis: Last Documented On 5 9:50AM By Quentin Burk ; [facility] sulfaSALAzine 500 MG Oral Tablet 11/27/2024 Provider : Maya Torres ARMOURED CAR ESCORT Diagnosis: Last Documented On 5 9:50AM By Quentin Burk ; [facility] Albuterol Sulfate HFA 108 (9 0 Base) MCG/ACT Inhalation Aerosol Solution 11/07/2024 Provider: Maya anderson ARMOURED CAR ESCORT Diagnosis: Last Documented On 5 9:50AM By Quentin Burk ; [facility] Finasteride 5 MG Oral Tablet 11/03/2024 Provider: Maya Torres ARMOURED CAR ESCORT Diagnosis: Last Documented On 5 9:50AM By Quentin Burk ; [facility] Tamsulosin HCl 0.4 MG Oral Capsule 11/03/2024 Provid er: Maya Torres ARMOURED CAR ESCORT Diagnosis: Last Documented On 5 3:49PM By Marifer Nuñez ; [facility] Amoxicillin 875 MG Oral Tablet 09/11/2024 Provider: Diagnosis: Last Documented On 5 9:50AM By Quentin Burk ; [facility] predniSONE 10 MG Oral Tablet 03/11/2021 Provider: Jarek Muñiz DO Diagnosis: Last Documented On 8:34AM By Dbeorah Lowery ; [facility] Amoxicillin 500 MG Oral Capsule 03/11/2021 Provider: Jarek Muñiz DO Diagnosis: Last Documented On 8:34AM By Deborah Lowery ; [facility] Cephalexin 500 MG Oral Capsule 03/10/2021 Provider: Diagnosis: Last Documented On 8:34AM By Deborah Lowery ; [facility] HYDROcodone-Acetaminophen 5-325 MG Oral Tablet Provider: Diagnosis: Last Documented On 8:34AM By Deborah Lowery ; [facility] Gabapentin 300 MG Oral Capsule 03/06/2021 Provider: Diagnosis: Last Documented On 8:34AM By Deborah Lowery ; [facility] LORazepam 1 MG Oral Tablet 03/06/2021 Provider: Diagnosis: Last Documented On 8:34AM By Deborah Lowery ; [facility] Esomeprazole Magnesium 40 MG Oral Capsule Delayed Rele ase 03/04/2021 Provider: Diagnosis: Last Documented On 8:34AM By Deborah Lowery ; [facility] Esomeprazole Magnesium 40 MG Oral Capsule Delayed Rele ase 03/04/2021 Provider: Diagnosis: Last Documented On 8:34AM By Deborah Lowery ; [facility] Fluticasone Propionate 50 MCG/ACT Nasal Suspension Provider: Diagnosis: Last Documented On 8:35AM By Deborah Lowery ; [facility] Past Medications on file Clindamycin HCl 300 MG Oral Capsule 01/07/2025 - 01/09/2025 Provider: Holden Steiner Diagnosis: take 2 pills, 3 three times a day Last Documented On 5 11:06AM By Quentin Burk ; [facility] Clindamycin HCl 300 MG Oral Capsule 12/28/2024 - 01/08/2025 Provider: Holden Steiner Diagnosis: three times a day Last Documented On 5 10:10AM By Quentin Burk ; [facility] Percocet 5-325 MG Oral Tablet 12/19/2024 - 01/03/2025 Provider: Issa Rodriguez MD Diagnosis: 1 po q 4h prn pain Last Documented On 5 8:40AM By Issa Rodriguez ; [facility] Losartan Potassium 100 MG Oral Tablet 12/05/2024 - Provider: Diagnosis: Last Documented On 5 3:50PM By Marifer Nuñez ; [facility] DULoxetine HCl 60 MG Oral Ca psule Delayed Release Particles 12/05/2024 - 03/05/2025 Provider: Diagnosis: Last Documented On 5 3:49PM By Marifer Nuñez ; [facility] Montelukast Sodium 10 MG [...] Last Documented On 5 8:58AM ; [facility] Not a current smoker. 04/22/2022 Last Documented On 5 8:58AM ; [facility] Non-smoker 03/12/2021 Last Documented On 5 8:58AM ; [facility] No tobacco use 04/05/2019 Last Documented On 5 8:58AM ; [facility] Smoking status : Never smoker 04/05/2019 Last Documented On 5 8:58AM ; [facility] Caffeine use 04/05/2019 Last Documented On 5 8:58AM ; [facility] No recent change in diet 04/05/2019 Last Documented On 5 8:58AM ; [facility] Not a current smoker 04/05/2019 Last Documented On 5 8:58AM ; [facility] Not exercising regularly 04/05/2019 Last Documented On 5 8:58AM ; [facility] Not using alcohol 04/05/2019 Last Documented On 5 8:58AM ; [facility] Not using drugs 04/05/2019 Last Documented On 5 8:58AM ; [facility] Sex - Male 07/05/2025 Last Documented On 5 2:08PM ; [facility] Procedures and Surgical History Includes: Procedures from this encounter Procedures Code Diagnosis Performing Provider Service Location Service Date X-RAY EXAM OF TRUNK SPINE [address] Encntr for adjust and mgmt of implanted nervous sys device, Presence of neurostimulator Issa Rodriguez MD [facility] 06/06/2025 Last Documented On 5 2:21PM ; [facility] Surgical History Last Updated History of hernia repair 04/05/2019 Last Documented On 5 8:58AM ; [facility] Medical History Includes: Medical History addressed during this encounter Description Last Updated No recent immunization for flu Last Documented On 5 8:58AM ; [facility] No recent immunization for pneumococcal pneumonia 03/12/2021 Last Documented On 5 8:58AM ; [facility] cataracs 04/05/2019 Last Documented On 5 8:58AM ; [facility] Arthritic joint problems 04/05/2019 Last Documented On 5 8:58AM ; [facility] Intermittent hypertension 04/05/2019 Last Documented On 5 8:58AM ; [facility] Family History Includes: Family History addressed during this encounter Description Last Updated Family history of cancer 04/05/2019 Last Documented On 5 8:58AM ; [facility] Family history of hypertension 9 Last Documented On 5 8:58AM ; [facility] Review of Systems Includes: Review [...] Anxiety Last Documented On 5 8:58AM ; [facility] Physical Exam Includes: Physical Exam from this encounter Allergies Includes: Active Allergies No Known Allergies Care Metal Reed Tuner Name (Identifier) Role/Relation Location/Telecom Last Documented By Domingo Billingsley MD ([id number]) Assigned practitioner (occupation) tel:[phone] Last Documented On 07/05/2025 2:08PM ; [facility] Olga Cohen Vinayak BELCHER ([id number]) [address] [place] [address], [address] tel:[phone] Last Documented On 04/05/2019 9:06AM ; [facility] Encounters Encounter Provider Location (Healthcare Service Location) Date Check-In Time Check-Out Time Diagnosis Encounter Disposition Follow Up Issa Rodriguez MD [facility] 2024 8:53AM 10:11AM Overweight Payer Includes: Active Insurance Policies Plan Name (Payer ID) Coverage Type Member ID Group # Subscriber (ID) Relationship Effective Dates 1 - Medicare Part B [facility] ([id number]) [id number] Stephane Lozano Anam Self (Checked on 06/03/2025) Last Documented On 9 7:57AM ; [facility] 2 - [employer] Medicare Supplemen t Insurance [id number] Stephane Mendieta Self 09/15/2017 - Unknown Last Documented On 9 8:40AM ; [facility] Clinical Notes Includes: Clinical Notes from this encounter * Progress note Date Encounter Last Documented by 06/06/2025 Follow Up Last documented on 06/11/2025; 1:20 PM, Issa Rodriguez MD; [facility] Active Problems & Conditions [...] Care Team - Olga Licea APRN - 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 - Assess Tobacco Use satisfied 04/05/2019. - Follow Up Plan BMI Management satisfied 06/06/2025.
--- OUTSIDE RECORDS SUMMARY | 2025-07-15 10:41 | XMS_ITS | Continuity of Care Document ---
Author Organization [employer] [facility] Address [address] [place] [address] Assessment No assessment recorded. Plan of Treatment [...] Orders lorazepam 1 mg tablet 2024 025 [facility] (Now [facility]), [address], [place], [address], 05/09/2025 18:00:59 Patient TargetsNo targets recorded. Patient InstructionsNo instructions recorded. Reason for Referral None Reported. Problems Name Problem SNOMED Code Status Onset Date Resolution Date Notes Provider Name and Address Organization Details Recorded Time Generali zed anxiety disorder [id number] Completed 201609/21/2016 Problem Code: F41.1; Problem Code Type: ICD-10; Maya Torres APRN [address] [place], [address] , [employer]. 3 11:40:35 Allergic rhinitis caused by pollen 43371975 Completed 201610/08/2016 Problem Code: J30.1; Problem Code Type: ICD-10; Not Available [facility] 2 21:50:51 Pain in right knee Completed 201608/23/2016 Problem Code: M25.561; Problem Code Type: ICD-10; Not Available [facility] 21:50:53 Pain in left knee Completed 201608/23/2016 Problem Code: M25.562; Problem Code Type: ICD-10; Not Available [facility] 21:51:03 Knee pain Completed 201608/23/2016 Problem Code: 719.46; Problem Code Type: ICD-9; JUAN ANTONIO [employer]. 11:16:05 Acute sinusiti s 24122506 Completed 201610/05/2016 Problem Code: J01.90; Problem Code Type: ICD-10; JUAN ANTONIO mortensen, [employer]. 11:16:05 Pain in right knee Completed 201611/04/2016 Problem Code: M25.561; Problem Code Type: ICD-10; Not Available [facility] 21:50:53 Prepatel lar bursitis of right knee [id number] 9100 Completed 201612/20/2016 Not Available [facility] 21:50:54 Knee pain Completed 201611/04/2016 Problem Code: 719.46; Problem Code Type: ICD-9; JUAN ANTONIO mortensen [employer]. 11:16:05 Prepatel lar bursitis 72623515 Completed 201612/20/2016 Problem Code: 726.65; Problem Code Type: ICD-9; Not Available [facility] 21:51:17 Pain in right knee Completed 201612/13/2016 Problem Code: M25.561; Problem Code Type: ICD-10; Not Available [facility] 21:51:02 Knee pain Completed 201612/13/2016 Problem Code: 719.46; Problem Code Type: ICD-9; JUAN ANTONIO mortensen [employer]. 10/18/202 2 11:16:05 Allergic rhinitis 48111704 Completed 201603/11/2017 Problem Code: J30.9; Problem Code Type: ICD-10; Not Available [facility] 2 21:50:51 Allergic rhinitis 28072640 Completed 201605/06/2017 Problem Code: J30.9; Problem Code Type: ICD-10; Not Available [facility] 2 21:50:51 Allergic rhinitis caused by pollen 94047031 Completed 201608/02/2017 Problem Code: J30.1; Problem Code Type: ICD-10; Not Available [facility] 2 21:50:51 Hyperten sive disorder 60408248 Completed 201708/30/2017 Problem Code: I10; Problem Code Type: ICD-10; Not Available [facility] 2 21:50:50 Acute sinusiti s 44300111 Completed 201708/12/2017 Problem Code: J01.90; Problem Code Type: ICD-10; JUAN ANTONIO mortensen [employer]. 11:16:05 Benign essentia l hyperten marquis 9972578 Completed 201701/17/2018 Problem Code: 401.1; Problem Code Type: ICD-9; Not Available [facility] 2 21:51:06 Tinea pedis 5979940 Completed 201711/25/2017 Problem Code: B35.3; Problem Code Type: ICD-10; Not Available [facility] 2 21:50:48 Neck pain 27776989 Completed 201711/25/2017 Not Available [facility] 2 21:50:53 Hyperest hesia 68656900 Completed 201711/25/2017 Problem Code: R20.3; Problem Code Type: ICD-10; Not Available [facility] 2 21:50:55 Skin sensatio n disturba nce 76451849 Completed 201711/25/2017 Problem Code: 782.0; Problem Code Type: ICD-9; Not Available [facility] 2 21:51:11 Acquired deformit y of toe 60906080 Completed 201701/09/2021 Problem Code: 735.8; Problem Code Type: ICD-9; Not Available [facility] 2 21:51:11 Onychomy cosis due to dermatop hyte 704090328 Completed 201711/25/2017 Problem Code: 110.1; Problem Code Type: ICD-9; Not Available [facility] 2 21:51:15 Acute sinusiti s 83548925 Completed 201701/31/2018 Problem Code: J01.90; Problem Code Type: ICD-10; JUAN ANTONIO mortensen, [employer]. 11:16:05 Non-neop lastic nevus 318344555 Completed 201706/28/2019 Not Available [facility] 2 21:50:58 Large prostate 323436464 Completed 201703/10/2018 Problem Code: N40.0; Problem Code Type: ICD-10; Not Available [facility] 2 21:51:05 Generali zed atherosc lerosis 94619086 Completed 201701/09/2021 Problem Code: 440.9; Problem Code Type: ICD-9; Not Available [facility] 2 21:51:08 Benign prostati c hyperpla mel 932285024 Completed 201701/09/2021 Problem Code: 600.00; Problem Code Type: ICD-9; Not Available [facility] 2 21:51:09 Lacerati on of finger with foreign body 249886330 Completed 201704/25/2018 Problem Code: S61.222A ; Problem Code Type: ICD-10; Not Available [facility] 2 21:50:56 Pre-surg marjorie evaluati on Completed 201704/25/2018 Not Available [facility] 2 21:50:58 Open wound of finger with complica tion 13143969 Completed 201704/25/2018 Problem Code: 883.1; Problem Code Type: ICD-9; Not Available [facility] 21:51:10 Abnormal weight gain 464872596 Completed 201705/09/2018 Problem Code: R63.5; Problem Code Type: ICD-10; Not Available [facility] 21:50:55 Mixed hyperlip idemia 176959530 Completed 201701/09/2021 Problem Code: 272.2; Problem Code Type: ICD-9; Tamar mortensen [facility]. 09:56:03 Anemia of chronic disease 811794447 Completed 201706/28/2019 Problem Code: D63.8; Problem Code Type: ICD-10; Not Available [facility] 21:50:49 Prostate specific antigen above referenc e range 817134776 Completed 201705/12/2018 Problem Code: R97.20; Problem Code Type: ICD-10; Not Available [facility] 21:50:56 Iron deficien cy anemia secondar y to inadequa te dietary iron intake 738950739 Completed 201705/27/2018 Problem Code: D50.8; Problem Code Type: ICD-10; Not Available [facility] 21:50:49 Ulcerati ve pancolit is 498316990 Completed 201706/28/2019 Problem Code: K51.00; Problem Code Type: ICD-10; Not Available [facility] 21:50:52 Abscess of limb 359716567 Completed 201705/27/2018 Problem Code: L02.415; Problem Code Type: ICD-10; Not Available [facility] 21:51:00 Abscess of leg, except foot 56277168 Completed 201705/27/2018 Not Available [facility] 21:51:10 Ulcerati ve colitis 44583791 Completed 201701/09/2021 Problem Code: 556.6; Problem Code Type: ICD-9; Not Available [facility] 21:51:16 Anemia due to chronic blood loss 377885263 Active 2017 Problem Code: D50.0; Problem Code Type: ICD-10; Not Available [facility] 2 21:50:49 Ulcerati ve pancolit is 494904332 Completed 201706/28/2019 Problem Code: K51.00; Problem Code Type: ICD-10; Not Available [facility] 2 21:50:52 Ulcerati ve colitis 23074018 Completed 201701/09/2021 Problem Code: 556.6; Problem Code Type: ICD-9; Not Available [facility] 2 21:51:17 Acute posthemo rrhagic anemia 560569041 Completed 201706/12/2018 Problem Code: D62; Problem Code Type: ICD-10; Not Available [facility] 2 21:50:49 Acute posthemo rrhagic anemia 673936361 Completed 201706/17/2018 Problem Code: D62; Problem Code Type: ICD-10; Not Available [facility] 2 21:50:49 Acute posthemo rrhagic anemia 040267748 Completed 201706/24/2018 Problem Code: D62; Problem Code Type: ICD-10; Not Available [facility] 2 21:50:49 Pain in right knee Completed 201705/01/2018 Problem Code: M25.561; Problem Code Type: ICD-10; Not Available [facility] 2 21:50:53 Pain in left knee Completed 201705/01/2018 Problem Code: M25.562; Problem Code Type: ICD-10; Not Available [facility] 2 21:50:54 Knee pain Completed 201705/04/2022 Problem Code: 719.46; Problem Code Type: ICD-9; JUAN ANTONIO mortensen [employer] 2 11:16:05 Acute sinusiti s 41287468 Completed 201707/03/2018 Problem Code: J01.90; Problem Code Type: ICD-10; JUAN ANTONIO mortensen [employer] 11:16:05 Acute bronchit is 35790712 Completed 201708/18/2018 Problem Code: J20.9; Problem Code Type: ICD-10; Not Available [facility] 2 21:50:51 Idiopath ic osteoart hritis 790434200 Active 2018 Problem Code: M17.0; Problem Code Type: ICD-10; Not Available [facility] 2 21:51:01 Allergic sensitiz ation 307424917 Completed 201805/04/2022 JUAN ANTONIO mortensen, [employer] 11:16:05 Mixed hyperlip idemia 424377122 Active 2018 Problem Code: E78.2; Problem Code Type: ICD-10; Tamar mortensen, [employer] 5 09:56:03 Large prostate 055458278 Active 2018 Problem Code: N40.0; Problem Code Type: ICD-10; Not Available [facility] 2 21:50:54 Dysthymi a 31513521 Active 2018 Problem Code: R53.81; Problem Code Type: ICD-10; Not Available [facility] 21:51:11 Primary insomnia 4535823 Active 2018 Problem Code: F51.01; Problem Code Type: ICD-10; Not Available [facility] 2 21:50:50 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 11:16:05 Body mass index 30+ - obesity 225303746 Active 2018 Problem Code: Z68.35; Problem Code Type: ICD-10; Not Available [facility] 2 21:50:59 Diabetes mellitus screenin g Completed 201805/04/2022 Problem Code: Z13.1; Problem Code Type: ICD-10; JUAN ANTONIO mortensen [employer] 2 11:16:05 Body mass index 30+ - obesity 661730512 Completed 201807/17/2020 Problem Code: Z68.35; Problem Code Type: ICD-10; Not Available [facility] 21:51:01 Atelecta sis 01762966 Completed 201812/14/2019 Problem Code: J98.11; Problem Code Type: ICD-10; Not Available [facility] 2 21:50:52 General examinat ion of patient Completed 201806/28/2019 JUAN ANTONIO mortensen [employer] 2 11:16:05 Body mass index 30+ - obesity 070329881 Completed 201807/17/2020 Problem Code: Z68.35; Problem Code Type: ICD-10; Not Available [facility] 2 21:51:01 Body mass index 30+ - obesity 087655285 Completed 201807/17/2020 Problem Code: Z68.35; Problem Code Type: ICD-10; Not Available [facility] 2 21:51:00 Body mass index 30+ - obesity 779912220 Completed 201907/17/2020 Problem Code: Z68.36; Problem Code Type: ICD-10; Not Available [facility] 2 21:51:13 Disorder of skin and/or subcutan eous tissue 73922764 Completed 201905/04/2022 JUAN ANTONIO mortensen, [employer]. 11:16:05 Body mass index 30+ - obesity 549821090 Completed 201907/17/2020 Problem Code: Z68.36; Problem Code Type: ICD-10; Not Available [facility] 21:51:00 General examinat ion of patient Completed 201905/04/2022 JUAN ANTONIO mortensen, [employer] 11:16:05 General examinat ion of patient Completed 202009/15/2020 JUAN ANTONIO mortensen, [employer]. 11:16:05 Body mass index 30+ - obesity 672966106 Completed 202009/15/2020 Problem Code: Z68.36; Problem Code Type: ICD-10; Not Available [facility] 21:51:14 Cough 56425395 Completed 202004/02/2021 Problem Code: R05; Problem Code Type: ICD-10; Not Available [facility] 21:50:54 Acute sinusiti s 28661451 Completed 202005/04/2022 Problem Code: J01; Problem Code Type: ICD-10; JUAN ANTONIO mortensen, [employer]. 11:16:05 Eruption 606049682 Completed 202005/04/2022 Problem Code: R21; Problem Code Type: ICD-10; JUAN ANTONIO mortensen, [employer]. 11:16:05 Contusio n of anterior abdomina l wall 999031042 Completed 202005/04/2022 JUAN ANTONIO mortensen, [employer]. 11:16:05 Malignan t neoplasm of skin 147295588 Completed 202004/02/2021 Problem Code: C44.90; Problem Code Type: ICD-10; Not Available [facility] 09/05/202 2 21:50:49 Allergic rhinitis 86072952 Active 2020 Problem Code: J30.9; Problem Code Type: ICD-10; Not Available [facility] 2 21:50:52 Abrasion of skin of palm of hand 298983424 Completed 202109/24/2021 Not Available [facility] 2 21:50:56 Current drug user 068767814 Active 2021 Problem Code: Z79.899; Problem Code Type: ICD-10; Not Available [facility] 2 21:51:02 Acute frontal sinusiti s 77586572 Completed 202105/04/2022 Problem Code: J01.1; Problem Code Type: ICD-10; JUAN ANTONIO mortensen, [employer] 2 11:16:06 Generali zed anxiety disorder 26362729 Active 2022 Problem Code: F41.1; Problem Code Type: ICD-10; Maya Torres, SIMI [address] [place] [address], [address] , [employer] 3 11:40:35 Problem Notes None recorded. Procedures Surgical History Date Name Laterality Status Provider Name and Address Organization Details Recorded Time 7 hernia repair completed Not Available [facility] 03/23/2022 22:56:15 Imaging Results None recorded. Procedure [...] Updated DateTime 5 175.26 cm 36.8 kg/m2 181499. 5 g 83 /min 91 % 134/85 mm[Hg] Tamar Durham [employer] 5 10:47:28 Social History Question Answer Notes LastModified by Organizat ion Details LastModified Time Tobacco Smoking Status Former Smoker JUAN ANTONIO mortensen, [employer], [employer] 05/04/2022 11:17:53 Do You Have An Advance Directive? No [email or web address] Information n ot available 06/04/2022 Are You Blind Or Do You Have Difficulty Seeing? No [email or web address] Information n ot available 05/04/2022 What Is Your Level Of Caffeine Consumption? Moderate Information not available 11/30/2022 Are You A Caregiver? No [email or web address] Information not available 06/04/2022 In The 14 [...] Do You Have Serious Difficulty Hearing? No [email or web address] Information not available 05/04/2022 What Type Of Diet Are You Following? REGULAR [email or web address] Information n ot available 06/04/2022 Have There Been Any Changes To Your Family Or Social Situation? No [email or web address] Information no t available 06/04/2022 When Did You Quit Smoking? 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 No [email or web address] Information not available 06/04/2022 What Was The Date Of Your Most Recent Tobacco Screening? 05/09/2025 Information not available 05/09/2025 What Is Your Current Pack Years? 20-29packyear s [email or web address] Information not available 05/04/2022 What Is Your Relationship Status? [email or web address] Information not available 05/04/2022 Do You Use Your Seat Belt Or Car Seat Routinely? Yes [email or web address] Information not available 06/04/2022 Do You Have Smoke And Carbon Monoxide Detectors In Your Home? Yes [email or web address] Information not available 06/04/2022 How Much Tobacco Do You Smoke? 1 PPD Information not available 06/01/2024 Do You Use Sunscreen Routinely? No [email or web address] Information not available 06/04/2022 Have You Recently Traveled Abroad? No [email or web address] Information not available 06/04/2022 Do You Have Difficulty Walking Or Climbing Stairs? No [email or web address] Information not available 05/04/2022 Are You Currently In School? No [email or web address] Information not available 06/04/2022 Do You Have Any Dietary Restrictions? No [email or web address] Information not available 06/04/2022 Sex: Male Functional Status Question Answer Note LastModified by Organizat ion Details LastModified Time Do you use any illicit or recreational drugs? No Information not available 11/30/2022 What is your level of alcohol consumption? None [email or web address] Information not available 05/04/2022 Are you currently employed? No [email or web address] Information not available 06/04/2022 Do you have transportation difficulties? No [email or web address] Information not available 05/04/2022 Are you able to walk independently without assistance or assistive devices? [employer]ST [email or web address] Information not available 05/04/2022 Do you have difficulty doing errands alone? No [email or web address] Information not available 05/04/2022 Are you able to care for yourself independently? Yes Information not available 05/04/2022 Do you have difficulty dressing, bathing, grooming, or toileting? No [email or web address] Information not available 05/04/2022 What is your exercise level? None [email or web address] Information not available 06/04/2022 Mental Status Question Answer Note LastModified by Organization D etails LastModified Time Do you have difficulty concentrating, remembering or making decisions? No Information no t available 05/04/2022 Family History Relationship Description Onset Age of this Age Resolved Age Notes LastModified by Organization Details LastModified Time Unspecified Relation Family history of Hypertension [email or web address] Not available 11:16:26 Unspecified Relation Family history of malignant neoplasm [email or web address] Not available 05/04 11:16:34 Unspecified Relation Family history of polyp of colon [email or web address] Not available 05/04 11:16:39 Medical History Condition Response Allergies (Food, seasonal, environmental ) Y Hypertension Y GI Problems Y Immunizations Vaccine Type Date Status Note Provider Name and Address Organization Details Recorded Time zoster recombinant 024 cancelled patient objection Maya Torres APRN [address] [place], [address], [employer] 10/03/2023 13:15:21 pneumococcal polysaccharide PPV23 019 completed Tamar mortensen, [employer] 05/09/2025 10:23:09 Pneumococcal conjugate PCV 13 10/08/2 018 completed Tamar Durham null, [employer] 05/09/2025 10:23:09 COVID-19, mRNA, LNP-S, PF, 100 mcg/0.5mL dose or 50 mcg/0.25mL dose 021 completed Tamar Castellony null, [employer] 05/09/2025 10:23:09 COVID-19, mRNA, LNP-S, PF, 100 mcg/0.5mL dose or 50 mcg/0.25mL dose 021 completed Tamar Castellony null, [employer] 05/09/2025 10:23:09 COVID-19, mRNA, LNP-S, PF, 100 mcg/0.5mL dose or 50 mcg/0.25mL dose 021 completed Tamar Marva null, [employer] 05/09/2025 10:23:09 Influenza, high-dose, trivalent, PF 019 completed JUAN ANTONIO EILEEN null, [employer] 07/02/2022 11:24:10 Influenza, split virus, trivalent, PF 017 completed JUAN ANTONIO EILEEN null, [employer] 07/02/2022 11:24:10 Influenza, MDCK, quadrivalent, PF completed JUAN ANTONIO EILEEN null, [employer] 07/02/2022 11:24:10 Tdap 016 completed JUAN ANTONIO EILEEN null, [employer] 07/02/2022 11:24:10 Influenza, high-dose, trivalent, PF 018 completed JUAN ANTONIO EILEEN null, [employer] 07/02/2022 11:24:10 COVID-19, mRNA, LNP-S, bivalent, PF, 50 mcg/0.5 mL or 25mcg/0.25 mL dose 022 completed JUAN ANTONIO EILEEN null, [employer] 07/02/2022 11:24:10 Influenza, high-dose, quadrivalent, PF 022 completed JUAN ANTONIO mortensen, [facility] 07/02/2022 11:24:10 Influenza, high-dose, quadrivalent, PF 021 completed [facility]UAN ANTONIO [facility]ensen [facility] 07/02/2022 11:24:10 RSV, recombinant, protein subunit RSVpreF, adjuvant reconstituted, 0.5 mL, PF 023 completed Not Available [facility] 05/09/2025 10:21:48 Influenza, high-dose, quadrivalent, PF 023 completed Not Available [facility] 05/09/2025 10:21:48 Influenza, high-dose, trivalent, PF 024 completed Not Available [facility] 05/09/2025 10:21:48 Pneumococcal conjugate PCV20, polysaccharide FTC888 conjugate, adjuvant, PF 025 completed Not Available [facility] 05/09/2025 10:21:48 Influenza, high-dose, trivalent, PF 025 completed Not Available [facility] 05/09/2025 10:21:48 Influenza, high-dose, quadrivalent, PF 020 completed Tamar mortensen, [facility] 05/09/2025 10:23:09 Past Encounters Encounter ID Performer Location Encounter Start Date Encounter Closed Date Diagnosis/Indication Diagnosis SNOMED-CT Code Diagnosis ICD10 Code Diagnosis IMO Codes Diagnosis Note [id number] Maya Torres [address] [address] 05/09/2025 10:20:23 05/09/2025 11:27:11 Generalized anxiety disorder 58656488 F41.1 controlled substance agreement and drug screen UTD at this time. Essential hypertension 61379089 I10 Gastroesop hageal reflux disease without esophagitis 284031752 K21.9 Allergic rhinitis 198941 04 J30.9 Body mass index 30+ - obesity 227721490 Z68.36 458259 Health Concerns Section Related Observation LastModified by Organization Detai ls LastModified Time None Recorded Concern Status LastModified by Organization Details LastModified Time None Recorded Payers Encounter Date Sequence Insurance Name Policy Number Policy Sutherland Covered Member ID Sutherland Member ID Guarantor Name 05/09/2025 2 [employer] - [employer] (MEDICARE SUPPLEMENT) Stephane Lozano Anam [id number] Stephane Mendieta 05/09/2025 1 [place] Stephane Mendieta [id number] Stephane Mendieta Notes Date Note Type Note Provider Name and Address Organization Details Recorded Time 05/09/2025 text/html pt here today for medication refills. pt states hes doing well on current medication regime and has no new complaints today. pt requested more trelegy samples and i gave him 4. Maya Torres, [employer]RAW[employer] [address], [place], [address], [facility] [employer] 05/09/2025 18:02:01
[2025-07-15] MEDS: DAPTOmycin 1,000 MG in 0.9 % SODIUM CHLORIDE 50 ML 100 MG IV (10:42)
--- OUTSIDE RECORDS SUMMARY | 2025-07-15 10:42 | XMS_ITS | Patient Health Record ---
Author Organization [facility] Address [address] [facility] [address] [place] [address] Care Team Providers Care Windows Consultant Name Role Phone Jerome Mrorissey II Unavailable [phone] Michael COLEMAN -Issa Barry MD Unavailable [phone] Allergies No Known Allergies Reason For Referral [...] Status Risk Notes Problem Chronic pain syndrome (714710876) Chronic pain syndrome (G89.4) Active confirmed Problem Complex regional pain syndrome of lower limb (disorder) (130252047) Complex regional pain syndrome I of unspecified lower limb (G90.529) Active confirmed Problem Cervical spondylosis without myelopathy (991419880) Other spondylosis with radiculopathy, cervical region (M47.22) Active confirmed Problem Cervical spondylosis without myelopathy (446837852) Spondylosis without myelopathy or radiculopathy, cervical region (M47.812) Active confirmed Problem Lumbosacral spondylosis without myelopathy (71491958) Spondylosis without myelopathy or radiculopathy, lumbar region (M47.816) Active confirmed Problem Cervicalgia (25678385) Cervicalgia (M54.2) Active confirmed Problem Post-laminectom y syndrome (65086396) Postlaminectomy syndrome, not elsewhere classified (M96.1) Active confirmed Problem Long-term current use of drug therapy (732786400) 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 Discontinue [place] 5/325mg QD PRN 2. FU PRn Mr. [...] Coverage End Date [place] [address] [place] [place] [address] [id number] Stephane Mendieta Self - patient is the insured 8 [employer] Medicare Supplement [address] [place] [phone] [id number] Stephane Mendieta Self - patient is the insured 8 Medical (General) History Medical History History ICD Code anxiety / Managed by PCP Surgical History Surgery Date(Month/Year) Back surgery / Dr. Rodriguez 09/2019 right knee replacement
--- OUTSIDE RECORDS SUMMARY | 2025-07-15 10:42 | XMS_ITS | Clinical Summary ---
Author Organization [facility] , [facility] Address [address] [place] [address] Phone Care Team Providers Care Oleomargarine Maker Name Role Phone Jose Cruz COLEMAN, Domingo Jett Unavailable [phone] Olga Licea APRN Unavailable [phone] Reason for Visit and Chief Complaint [Patient Encounter] Problems Includes: Problems addressed during this encounter and other active Problems All Visits Onset Date Date of Diagnosis Resolved Date Provider Condition Status Soft Tissue Pain Hand 12/05/2024 12/05/2024 Flako Pulido PA-C Active Last Documented On 5 1:43AM ; [facility], [facility] History of Lower Back Pain M idline Right Side 04/12/2022 04/12/2022 Holden Modi PA-C Active Last Documented On 5 1:41AM ; [facility], [facility] Joint Pain Left Thumb 03/12/2021 03/12/2021 Charles Hernandez MD Active Last Documented On 5 1:40AM ; [facility], [facility] Joint Pain in Both Knees 04/05/2019 04/05/2019 Arlet Billingsley MD Active Last Documented On 5 1:39AM ; [facility], [facility] Plan of Treatment Future Appointments Date Time Location Provi tahira Post Op 07/19/2025 11:00AM [facility] Holden oMdi PA-C Last Documented On 5 10:29AM ; [facility], [facility] Assessments Includes: Assessments from [...] q 4h prn pain Pharmacy: [facility][id number] - [address] , [facility], [id number] - Last Documented On 8:39AM By Issa Rodriguez ; [facility], [facility] Current Medications (continue as prescribed) Clindamycin HCl 300 MG Oral Capsule 01/07/2025 Provi tahira: Holden Modi PA-C Diagnosis: Last Documented On 10:36AM By Quentin Burk ; [facility], [facility] oxyCODONE-Acetaminophen 5-325 MG Oral Tablet Provider: Issa Rodriguez MD Diagnosis: Last Documented On 9:50AM By Quentin Burk ; [facility], [facility] Pantoprazole Sodium 40 MG Or al Tablet Delayed Release 12/09/2024 Provider: Maya Torres FISHER SPONGE HOOKING Diagnosis: Last Documented On 9:50AM By Quentin Burk ; [facility], [facility] LORazepam 1 MG Oral Tablet 12/04/2024 Provider: Nancy Torres [employer]ER SPONGE HOOKING Diagnosis: Last Documented On 9:50AM By Quentin Burk ; [facility], [facility] Doxycycline Hyclate 100 MG Oral Capsule 12/04/2024 P rosoniader: Diagnosis: Last Documented On 9:50AM By Quentin Burk ; [facility], [facility] sulfaSALAzine 500 MG Oral Tablet 11/27/2024 Provider : Maya Torres FISHER SPONGE HOOKING Diagnosis: Last Documented On 9:50AM By Quentin Burk ; [facility], [facility] Albuterol Sulfate HFA 108 (9 0 Base) MCG/ACT Inhalation Aerosol Solution 11/07/2024 Provider: Maya anderson [employer]ER SPONGE HOOKING Diagnosis: Last Documented On 06/13/202 5 9:50AM By Quentin Burk ; [facility] Finasteride 5 MG Oral Tablet 11/03/2024 Provider: Maya Torres APRN Diagnosis: Last Documented On 5 9:50AM By Quentin Burk ; [facility] Tamsulosin HCl 0.4 MG Oral Capsule 11/03/2024 Provid er: Maya Torres APRN Diagnosis: Last Documented On 5 3:49PM By Marifer Nuñez ; [facility] Amoxicillin 875 MG Oral Tablet 09/11/2024 Provider: Diagnosis: Last Documented On 5 9:50AM By Quentin Burk ; [facility] predniSONE 10 MG Oral Tablet 03/11/2021 Provider: Jarek Muñiz DO Diagnosis: Last Documented On 8:34AM By Deborah Lowery ; [facility] Amoxicillin 500 MG Oral Capsule 03/11/2021 Provider: Jarek Muñiz DO Diagnosis: Last Documented On 8:34AM By Deborah Lowery ; [facility] Cephalexin 500 MG Oral Capsule 03/10/2021 Provider: Diagnosis: Last Documented On 8:34AM By Deborah Lowery ; [facility] HYDROcodone-Acetaminophen 5-325 MG Oral Tablet 021 Provider: Diagnosis: Last Documented On 8:34AM By Deborah Lowery ; [facility] Gabapentin 300 MG Oral Capsule 03/06/2021 Provider: Diagnosis: Last Documented On 8:34AM By Deborah Lowery ; [facility] LORazepam 1 MG Oral Tablet 03/06/2021 Provider: Diagnosis: Last Documented On 8:34AM By Deborah Lowery ; [facility] Esomeprazole Magnesium 40 MG Oral Capsule Delayed Rele ase 03/04/2021 Provider: Diagnosis: Last Documented On 8:34AM By Deborah Lowery ; [facility] Esomeprazole Magnesium 40 MG Oral Capsule Delayed Rele ase 03/04/2021 Provider: Diagnosis: Last Documented On 8:34AM By Deborah Lowery ; [facility] Fluticasone Propionate 50 MCG/ACT Nasal Suspension Provider: Diagnosis: Last Documented On 8:35AM By Deborah Lowery ; [facility] Medications Administered Includes: Administered Medications from this encounter No Administered Medications Recorded Results Includes: Results discussed during this encounter No Results Recorded For Specified Dates History of Present Illness Includes: History of Present Illness from this encounter No History of Present Illness Recorded Social History Description Last Updated Sex - Male 07/05/2025 Last Documented On 5 2:08PM ; [facility] Smoking Status Unknown Medical History [...] Includes: Active Allergies No Known Allergies Care Oleomargarine Maker Name (Identifier) Role/Relation Location/Telecom Last Documented By Domingo Billingsley MD ([id number]) Assigned practitioner (occupation) tel:[phone] Last Documented On 07/05/2025 2:08PM ; [facility] Olga Vicki Licea APRN ([id number]) [address] [place] [address], [facility], [address] tel:[phone] Last Documented On 04/05/2019 9:06AM ; [facility] Encounters Encounter Provider Location (Healthcare Service Location) Date Check-In Time Check-Out Time Diagnosis Encounter Disposition [Patient Encounter] Issa Rodriguez MD 2024 8:31AM 11:59PM Payer Includes: Active Insurance Policies Plan Name (Payer ID) Coverage Type Member ID Group # Subscriber (ID) Relationship Effective Dates 1 - Medicare Part B [facility] ([id number]) [id number] Stephane Mendieta Self (Checked on 06/03/2025) Last Documented On 9 7:57AM ; [facility] [id number] Stephane Marta [place] Self 09/15/2017 - Unknown Last Documented On 9 8:40AM ; [facility], [facility]
--- OUTSIDE RECORDS SUMMARY | 2025-07-15 10:42 | XMS_ITS | Clinical Summary ---
[facility] Organization [facility] Address [address] [place] [address] Care Team Providers Care Bank Messenger Name Role Phone Maya Torres Primary Care Provider [phone] Allergies No known active allergies Medications DULoxetine [...] Completed 10/27/2020 Medical Devices Implanted Type Area Aircraft Stress Analyst Device Identifier Shelf Expiration Date Model / Serial / Lot Ld Stim Precsn Trial Lnr 8contct St/Tp50 - [id number] - [id number] Implanted:Qty : 1 on 10/05/2022 by Jerome [facility] MD at [facility] Implant N/A: Spine Thoracic [employer] 08/30/2024 [id number] / [id number] / Ld Stim Precsn Trial Lnr 8contct St/Tp50 - [id number] - [id number] Implanted:Qty : 1 on 10/05/2022 by Jerome Morrissey MD at [facility] Implant N/A: Spine Thoracic [employer] 08/26/2024 [id number] / [id number] / Anchr Ld Scs Clikx Ea/St/2 - [id number] Implanted:Qty : 1 on 10/05/2022 by Jerome Morrissey MD at [facility] Implant N/A: Spine Thoracic [employer] 01/06/2024 [id number] / / [id number] Kt Ipg Wavewriter Alpha 16/Contct - [id number] - [id number] Implanted:Qty : 1 on 10/05/2022 by Jerome Morrissey MD at [facility] Implant N/A: Spine Thoracic [employer] [id number] 09/13/2024 [id number] / [id number] / [id number] Insurance MEDICARE A & B Member Subscriber Plan / Payer (Ef fective 2017-Present) Name:Stephane Mendieta Member ID:[id number] Relation to Subscriber:Self Name:Stephane Mendieta Subscriber ID:[id number] Payer ID:[id number] Group ID:Not on file Type:Not on file Address: [facility] [address] [place] [id number] [facility] [employer] Care Teams Bank Messenger Relationship Specialty Start Date End Date Maya Torres Kaylyn [place] [id number] PCP - General Nurse Practitioner 09/28/22
--- OUTSIDE RECORDS SUMMARY | 2025-07-15 10:42 | XMS_ITS | Encounter Summary ---
Author Organization [employer] ([place], [place], [place], [place], [place]) Address [address] [place] [address] Care Team Providers Care Jig Fitter Name Role Phone Maya Torres Reji BELCHER Primary Care Provider [phone] Encounter Details Date Type Department Care Team (Late st Contact Info) Description 10/18/2020 Transcribed Document [facility] Family [facility] [place] [address] ProviderJean MD [address], [place] [id number] Social History Tobacco Use Types Packs/Day Years [...] On: 10/18/2020 19:09 EDT by SUSHMA MARQUEZ, [employer] [employer] Triage Across the Room Chief Complaint : [...] : 3 - Urgent Tracking Group : [facility] ED SUSHMA MARQUEZ RN - 10/18/2020 19:09 [...] Problems(Active) At risk for sleep apnea (IMO :85755215 ) Name of Problem: At risk for sleep apnea ; Recorder: SYSTEM, SYSTEM; Confirmation: Confirmed ; Classification: Medical ; Code: 65282769 ; Last Updated: 06/16/2018 8:18 EST ; Life Cycle Date: 06/16/2018 ; Life Cycle Status: Active ; Vocabulary: IMO Enlarged prostate (SNOMED CT :929421485 ) Name of Problem: Enlarged prostate ; Recorder: Shavonne Jimenez RN; Confirmation: Confirmed ; Classification: Medical ; Code: 806120723 ; Contributor System: A4 DataChart ; Last Updated: 06/16/2018 8:22 EST ; Life Cycle Date: 06/16/2018 ; Life Cycle Status: Active ; Vocabulary: SNOMED CT Hypertension (SNOMED CT :1389963425 ) Name of Problem: Hypertension ; Recorder: Shavonne Jimenez RN; Confirmation: Confirmed ; Classification: Medical ; Code: 7190443661 ; Contributor System: A4 DataChart ; Last Updated: 06/16/2018 8:21 EST ; Life Cycle Date: 06/16/2018 ; Life Cycle Status: Active ; Vocabulary: SNOMED CT Seasonal allergies (SNOMED CT :8597694183 ) Name of Problem: Seasonal allergies ; Recorder: Shavonne Jimenez RN; Confirmation: Confirmed ; Classification: Medical ; Code: 6857357083 ; Contributor System: PowerChart ; Last Updated: 06/16/2018 8:22 EST ; Life Cycle Date: 06/16/2018 ; Life Cycle Status: Active ; Vocabulary: SNOMED CT Diagnoses(Active) Rib/trunk pain-swelling Date: 10/18/2020 ; Diagnosis Type: Reason For Visit ; Confirmation: Complaint of ; Clinical Dx: Rib/trunk pain-swelling ; Classification: Medical ; Clinical Service: Emergency medicine ; Code: PNED ; Probability: 0 ; Diagnosis Code: [id number] ED Height and Weight Height Source : Stated Height Entry Format : [place] Height, Feet : 5 ft(Converted to: 152 cm, 60 Inch) Height, Inches : 8 Inch(Converted to: 0 ft 8 Inch, 20.32 cm) Clinical Height : 172.72 cm Weight Source, ED : Critical estimated dosing weight Weight Entry Format : [place] Weight, Pounds : 240 lb Clinical Dosing Weight : 109.09 kg Body Surface Area (BSA) : 2.21 m2 Body Mass Index : 36.6 kg/m2 (HI) [place] Body Weight (IBW) : 67.45 kg SUSHMA MARQUEZ RN - 10/18/2020 19:09 EDT documented in this encounter Plan of Treatment Not on file documented as of this encounter Visit Diagnoses Not on filedocumented in this encounter Care Teams Jig Fitter Relationship Specialty Start Date End Date Maya Torres, [employer] [address] [address] PCP - General Family Medicine 08/27/22 documented as of this encounter
--- OUTSIDE RECORDS SUMMARY | 2025-07-15 10:42 | XMS_ITS | Clinical Summary ---
Author Organization [facility] , [facility] Address [address] [place] [address] Phone Care Team Providers Care Director Of Nursing Name Role Phone Jose Cruz COLEMAN, Domingo Jett Unavailable [phone] Olga Licea APRN Unavailable [phone] Reason for Visit and Chief Complaint The Chief Complaint is: back pain Problems Includes: Problems addressed during this encounter and other active Problems All Visits Onset Date Date of Diagnosis Resolved Date Provider Condition Status Soft Tissue Pain Hand 12/05/2024 12/05/2024 Flako Pulido PA-C Active Last Documented On 5 1:43AM ; [facility] History of Lower Back Pain M idline Right Side 04/12/2022 04/12/2022 Holden Modi PA-C Active Last Documented On 5 1:41AM ; [facility] Joint Pain Left Thumb 03/12/2021 03/12/2021 Charles Hernandez MD Active Last Documented On 5 1:40AM ; [facility] Joint Pain in Both Knees 04/05/2019 04/05/2019 Arlet Billingsley MD Active Last Documented On 5 1:39AM ; [facility], [facility] Plan of Treatment Patient screened for future fall risk: documentation of any fall with injury in past year. - Last Documented On 01/14/2025 10:41AM ; [facility], [facility] Patient was seen by myself Holden [...] - Last Documented On 01/14/2025 10:41AM ; [facility] Pending Tests Order Diagnosis Results Due Ordering P rovider Radiology - MRI MRI Lumbar Spine 04/26/22 hCas Modi PA-C Last Documented On 2 1:06PM ; [facility] Future Appointments Date Time Location Provi [place] Post Op 07/19/2025 11:00AM [facility] Holden Modi PA-C Last Documented On 5 10:29AM ; [facility] Instructions to patient Lose weight Last Documented On 10:36AM ; [facility] Assessments Includes: Assessments from this encounter Findings - Overweight - Last Documented On 01/14/2025 10:41AM ; [facility] 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 December 19, 2024 - Last Documented On 01/14/2025 10:41AM ; [facility] Instructions Includes: Instructions from this encounter Instructions to patient Lose weight Last Documented On 10:36AM ; [facility] Medical Equipment - Implanted Devices Includes: Current Devices No Medical Equipment Recorded Medications Includes: Medications discussed during this encounter and other current Medications Current Medications (continue as prescribed) Percocet 5-325 MG Oral Tablet 07/03/2025 - 07/18/2025 Provider: Issa Rodriguez MD Diagnosis: 1 po q 4h prn pain Last Documented On 5 8:39AM By Issa Rodriguez ; [facility] Clindamycin HCl 300 MG Oral Capsule 01/07/2025 Provi tahira: Holden Modi PA-C Diagnosis: Last Documented On 5 10:36AM By Quentin Wm ; [facility] oxyCODONE-Acetaminophen 5-325 MG Oral Tablet Provider: Issa Rodriguez MD Diagnosis: Last Documented On 5 9:50AM By Quentin Burk ; [facility] Pantoprazole Sodium 40 MG Or al Tablet Delayed Release 12/09/2024 Provider: Maya Torres AOC PLANS INTELLIGENCE OFFICER CHIEF Diagnosis: Last Documented On 5 9:50AM By Quentin Burk ; [facility] LORazepam 1 MG Oral Tablet 12/04/2024 Provider: Nancy Torres AOC PLANS INTELLIGENCE OFFICER CHIEF Diagnosis: Last Documented On 5 9:50AM By Quentin Burk ; [facility] Doxycycline Hyclate 100 MG Oral Capsule 12/04/2024 P rosoniader: Diagnosis: Last Documented On 5 9:50AM By Quentin Burk ; [facility] sulfaSALAzine 500 MG Oral Tablet 11/27/2024 Provider : Maya Torres AOC PLANS INTELLIGENCE OFFICER CHIEF Diagnosis: Last Documented On 5 9:50AM By Quentin Burk ; [facility] Albuterol Sulfate HFA 108 (9 0 Base) MCG/ACT Inhalation Aerosol Solution 11/07/2024 Provider: Maya anderson AOC PLANS INTELLIGENCE OFFICER CHIEF Diagnosis: Last Documented On 5 9:50AM By Quentin Burk ; [facility] Finasteride 5 MG Oral Tablet 11/03/2024 Provider: Maya Torres AOC PLANS INTELLIGENCE OFFICER CHIEF Diagnosis: Last Documented On 5 9:50AM By Quentin Burk ; [facility] Tamsulosin HCl 0.4 MG Oral Capsule 11/03/2024 Provid er: Maya Torres AOC PLANS INTELLIGENCE OFFICER CHIEF Diagnosis: Last Documented On 5 3:49PM By Marifer Nuñez ; [facility] Amoxicillin 875 MG Oral Tablet 09/11/2024 Provider: Diagnosis: Last Documented On 5 9:50AM By Quentin Burk ; [facility] predniSONE 10 MG Oral Tablet 03/11/2021 Provider: Jarek Muñiz DO Diagnosis: Last Documented On 1 8:34AM By Deborah Lowery ; [facility] Amoxicillin 500 MG Oral Capsule 03/11/2021 Provider: Jarek Muñiz DO Diagnosis: Last Documented On 1 8:34AM By Deborah Lowery ; [facility] Cephalexin 500 MG Oral Capsule 03/10/2021 Provider: Diagnosis: Last Documented On 8:34AM By Deborah Lowery ; [facility], [facility] HYDROcodone-Acetaminophen 5-325 MG Oral Tablet 021 Provider: Diagnosis: Last Documented On 8:34AM By Deborah Lowery ; [facility] Gabapentin 300 MG Oral Capsule 03/06/2021 Provider: Diagnosis: Last Documented On 8:34AM By Deborah Lowery ; [facility], [facility] LORazepam 1 MG Oral Tablet 03/06/2021 Provider: Diagnosis: Last Documented On 8:34AM By Deborah Lowery ; [facility] Esomeprazole Magnesium 40 MG Oral Capsule Delayed Rele ase 03/04/2021 Provider: Diagnosis: Last Documented On 8:34AM By Deborah Lowery ; [facility] Esomeprazole Magnesium 40 MG Oral Capsule Delayed Rele ase 03/04/2021 Provider: Diagnosis: Last Documented On 8:34AM By Deborah Lowery ; [facility] Fluticasone Propionate 50 MCG/ACT Nasal Suspension Provider: Diagnosis: Last Documented On 8:35AM By Deborah Lowery ; [facility], [facility] Past Medications on file Clindamycin HCl 300 MG Oral Capsule 01/07/2025 - 01/09/2025 Provider: Holden Steiner Diagnosis: take 2 pills, 3 three times a day Last Documented On 5 11:06AM By Quentin Burk ; [facility] Clindamycin HCl 300 MG Oral Capsule 12/28/2024 - 01/08/2025 Provider: Holden Steiner Diagnosis: three times a day Last Documented On 5 10:10AM By Quentin Burk ; [facility] Percocet 5-325 MG Oral Tablet 12/19/2024 - 01/03/2025 Provider: Issa Rodriguez MD Diagnosis: 1 po q 4h prn pain Last Documented On 5 8:40AM By Issa Rodriguez ; [facility] Losartan Potassium 100 MG Oral Tablet 12/05/2024 - Provider: Diagnosis: Last Documented On 5 3:50PM By Marifer Nuñez ; [facility] DULoxetine HCl 60 MG Oral Ca psule Delayed Release Particles 12/05/2024 - 03/05/2025 Provider: Diagnosis: Last Documented On 5 3:49PM By Marifer [facility] Montelukast Sodium 10 MG Oral Tablet 12/05/2024 - 02/15 Provider: Diagnosis: Last Documented On 5 3:49PM By Marifer Nuñez ; [facility], [facility] Medications Administered Includes: Administered Medications from this encounter No Administered Medications Recorded Vital Signs Includes: Vital Signs from this encounter Vital Name 01/14/2025 10:36A Height (in) 69 Weight (lb) 250 Body Mass Index 36.9 Body Surface Area 2.3 Pain Level 3 Last Documented: On 01/14/2025 10:36A M ; [facility] Results Includes: Results discussed during this [...] Documented On 5 10:36AM ; [facility], [facility] No recent change in diet 04/22/2022 Last Documented On 5 10:36AM ; [facility], [facility] Not a current smoker. 04/22/2022 Last Documented On 5 10:36AM ; [facility], [facility] Non-smoker 03/12/2021 Last Documented On 5 10:36AM ; [facility], [facility] No tobacco use 04/05/2019 Last Documented On 5 10:36AM ; [facility] Smoking status : Never smoker 04/05/2019 Last Documented On 5 10:36AM ; [facility], [facility] Caffeine use 04/05/2019 Last Documented On 5 10:36AM ; [facility], [facility] No recent change in diet 04/05/2019 Last Documented On 5 10:36AM ; [facility], [facility] Not a current smoker 04/05/2019 Last Documented On 5 10:36AM ; [facility], [facility] Not exercising regularly 04/05/2019 Last Documented On 5 10:36AM ; [facility], [facility] Not using alcohol 04/05/2019 Last Documented On 5 10:36AM ; [facility], [facility] Not using drugs 04/05/2019 Last Documented On 5 10:36AM ; [facility], [facility] Sex - Male 07/05/2025 Last Documented On 5 2:08PM ; [facility], [facility] Procedures and Surgical History Surgical History Last Updated History of hernia repair 04/05/2019 Last Documented On 5 10:36AM ; [facility], [facility] Medical History Includes: Medical History addressed during this encounter Description Last Updated No recent immunization for flu Last Documented On 5 10:36AM ; [facility], [facility] No recent immunization for pneumococcal pneumonia 03/12/2021 Last Documented On 5 10:36AM ; [facility], [facility] cataracs 04/05/2019 Last Documented On 5 10:36AM ; [facility], [facility] Arthritic joint problems 04/05/2019 Last Documented On 5 10:36AM ; [facility], [facility] Intermittent hypertension 04/05/2019 Last Documented On 5 10:36AM ; [facility], [facility] Family History Includes: Family History addressed during this encounter Description Last Updated Family history of cancer 04/05/2019 Last Documented On 5 10:36AM ; [facility], [facility] Family history of hypertension 9 Last Documented On 5 10:36AM ; [facility], [facility] Review of Systems Includes: Review of [...] Description Anxiety Last Documented On 10:36AM ; [facility] Physical Exam Includes: Physical Exam from this encounter Allergies Includes: Active Allergies No Known Allergies Care Director Of Nursing Name (Identifier) Role/Relation Location/Telecom Last Documented By Domingo Billingsley MD ([id number]) Assigned practitioner (occupation) tel:[phone] Last Documented On 07/05/2025 2:08PM ; [facility] Olga Vicki Licea APRN ([id number]) [address] [place] [address], [address] tel:[phone] Last Documented On 04/05/2019 9:06AM ; [facility] Encounters Encounter Provider Location (Healthcare Service Location) Date Check-In Time Check-Out Time Diagnosis Encounter Disposition Post Op [facility] 10:30[facility] 10:40AM Overweight Payer Includes: Active Insurance Policies Plan Name (Payer ID) Coverage Type Member ID Group # Subscriber (ID) Relationship Effective Dates 1 - Medicare Part B [facility] ([id number]) [id number] Stephane Mendieta Self (Checked on 06/03/2025) Last Documented On 9 7:57AM ; [facility], [facility] 2 - [employer] Medicare Supplemen t Insurance [id number] Stephane Mendieta Self 09/15/2017 - Unknown Last Documented On 9 8:40AM ; [facility], [facility] Clinical Notes Includes: Clinical Notes from this encounter * Progress note Date Encounter Last Documented by 01/14/2025 Post Op Last documented on 01/14/2025; 10:41 AM, Holden Modi PA-C; [facility], [facility] Active Problems & Conditions - History [...] Replacement spinal cord stimulator battery with the padMOMENTFACE SROs system. December 19, 2024 Previous Tests Available [...] Care Team - Olga Licea APRN - MACHINE MAINTENANCE MECHANIC
--- OUTSIDE RECORDS SUMMARY | 2025-07-15 10:42 | XMS_ITS | Encounter Summary ---
Author Organization [employer] ([place], [place], [place], [place], [place]) Address [address] [place] [address] Care Team Providers Care Clinic Office Assistant Name Role Phone Maya Torres Reji BELCHER Primary Care Provider [phone] Encounter Details Date Type Department Care Team (Late st Contact Info) Description 10/18/2020 Transcribed Document [facility] [place] [facility] [address] [place] [address] ProviderJean MD [address] [place] [address] Social History Tobacco Use Types [...] : Low risk (0) [place] Interventions : [place] precautions for safety used Dee Ocampo, HOLA - 10/18/2020 19:41 EDT Electronically signed by Ileana [facility] Conversion Nutrition Director Cerner at 11/04/2022 3:34 PM CDT documented in this encounter Plan of Treatment Not on file documented as of this encounter Visit Diagnoses Not on filedocumented in this encounter Care Teams Clinic Office Assistant Relationship Specialty Start Date End Date Maya Torres, RELIGIOUS STUDIES PROFESSOR [address] [phone] PCP - General Family Medicine 08/27/22 documented as of this encounter
--- OUTSIDE RECORDS SUMMARY | 2025-07-15 10:42 | XMS_ITS | Encounter Summary ---
Author Organization [employer] ([place], [place], [place], [place], [place]) Address [address] [place] [address] Care Team Providers Care Automobile Body Repair Supervisor Name Role Phone Maya Torres Reji BELCHER Primary Care Provider [phone] Encounter Details Date Type Department Care Team (Late st Contact Info) Description 10/27/2020 Transcribed Document [facility] [place] [address] [place] [address] ProviderJean MD [address] [place] [address] Social History Tobacco Use Types [...] On: 10/27/2020 12:21 EDT by Jasmin Thornton IT DATA ARCHITECT General-Functional Assess Preferred Communication Mode : Verbal Communication Barrier : None Primary Language : Yemeni Any Spiritual/Cultural Needs or Requests : No [...] Rhythm : Regular Nail Bed Color : [place] Chest Pain : No Capillary Refill, Left [...] mm Pupil Size, Right : 3 mm [place] Coma Scale Link : Open GCS Jasmin Thornton RN - 10/27/2020 12:21 EDT Diana Coma Diana Best Motor Response : Obey commands Diana Best Verbal Response : Oriented [place] Eye Opening Response : Spontaneous [place] Coma Score : 15 Jasmin Thornton RN - 10/27/2020 12:21 EDT Electronically signed by [facility] Conversion Slip Mixer Cerner at 11/04/2022 3:11 PM CDT documented in this encounter Plan of Treatment Not on file documented as of this encounter Visit Diagnoses Not on filedocumented in this encounter Care Teams Automobile Body Repair Supervisor Relationship Specialty Start Date End Date Maya Torres, SEAMAN [address] [phone] PCP - General Family Medicine 08/27/22 documented as of this encounter
--- OUTSIDE RECORDS SUMMARY | 2025-07-15 10:42 | XMS_ITS ---
Author Organization [facility] Address [address] [place] [address] Phone Care Team Providers Care Nurse Reviewer Name Role Phone Jose Cruz COLEMAN, Domingo Jett Unavailable [phone] Olga Licea APRN Unavailable [phone] Reason for Referral 11/29/2024 Encounter for Follow Up Date Recorded Target Due Date Referral Type Referring Prov ider Reason For Referral 11/29/2024 Issa Rodriguez MD See PCP for BP Last Documented On 5 3:07PM ; [facility] 11/29/2024 Issa Rodriguez MD referral to physician Last Documented On 5 3:07PM ; [facility] 04/22/2022 Encounter for Follow Up Date Recorded Target Due Date Referral Type Referring Prov ider Reason For Referral 04/22/2022 Issa Rodriguez MD See PCP for BP Last Documented On 2 10:14AM ; [facility] 05/02/2022 Issa Rodriguez MD referral to physician Last Documented On 2 10:49AM ; [facility], [facility] 04/12/2022 Encounter for Follow Up Date Recorded Target Due Date Referral Type Referring Prov ider Reason For Referral 04/12/2022 Holden Modi PA-C See PC P for BP Last Documented On 2 9:57AM ; [facility] 04/07/2021 Encounter for Follow Up Date Recorded [...] BP Last Documented On 1 8:43AM ; [facility] Problems Includes: Active, inactive, and resolved Problems All Visits Onset Date Date of Diagnosis Resolved Date Provider Condition Status Soft Tissue Pain Hand 12/05/2024 12/05/2024 Falko Pulido PA-C Active Last Documented On 5 1:43AM ; [facility] History of Lower Back Pain M idline Right Side 04/12/2022 04/12/2022 Holden Modi PA-C Active Last Documented On 5 1:41AM ; [facility] Joint Pain Left Thumb 03/12/2021 03/12/2021 Charles Hernandez MD Active Last Documented On 5 1:40AM ; [facility] Joint Pain in Both Knees 04/05/2019 04/05/2019 [facility] zachary Billingsley MD Active Last Documented On 5 1:39AM ; [facility] Plan of Treatment Findings Encounter Date Patient screened for future fall risk: documentation of any fall with injury in past year Follow Up with Issa Rodriguez MD 06/06/2025 Last Documented On 5 8:58AM ; [facility] Patient screened for future fall risk: documentation of any fall with injury in past year Post Op with Holden Modi PA-C 01/14/2025 Last Documented On 5 10:36AM ; [facility] Patient screened for future fall risk: documentation of any fall with injury in past year Post Op with Holden Modi PA-C 01/07/2025 Last Documented On 5 10:49AM ; [facility] Patient screened for future fall risk: documentation of any fall with injury in past year Post Op with Holden Modi PA-C 12/28/2024 Last Documented On 5 9:50AM ; [facility] Patient screened for future fall risk: documentation of any fall with injury in past year IN HOUSE REFERRAL with Flako Pulido PA-C 12/05/2024 Last Documented On 5 2:27PM ; [facility] Pending Tests Order Diagnosis Results Due Ordering P rovider Radiology - MRI MRI Lumbar Spine 04/26/22 Chas Modi PA-C Last Documented On 2 1:06PM ; [facility] Future Appointments Date Time Location Provi tahira Post Op 07/19/2025 11:00AM [facility] WASHOEIrais Modi PA-C Last Documented On 5 10:29AM ; [facility] Instructions to patient Lose weight Last Documented On 5 8:58AM ; [facility] Lose weight Last Documented On 5 10:36AM ; [facility] Lose weight Last Documented On 5 10:49AM ; [facility] Lose weight Last Documented On 5 9:50AM ; [facility] Lose weight Last Documented On 5 2:27PM ; [facility] Lose weight Last Documented On 5 3:07PM ; [facility] Lose weight Last Documented On 2 10:14AM ; [facility] Lose weight Last Documented On 2 9:57AM ; [facility] Lose weight Last Documented On 1 8:13AM ; [facility] Lose weight Last Documented On 1 8:43AM ; [facility] Instructions for patient SEE PCP FOR BP AND WT Last Documented On 0 11:13AM ; [facility] Instructions for patient Last Documented On 0 3:05PM ; [facility] Instructions for patient Last Documented On 0 1:32PM ; [facility] Instructions for patient to see [...] 12/28/2024 Last Documented On 5 9:50AM ; [facility] Overweight IN HOUSE REFERRAL with [...] WT Last Documented On 0 11:13AM ; [facility] Instructions for patient Last Documented On 0 3:05PM ; [facility] Instructions for patient Last Documented On 0 1:32PM ; [facility] Instructions for patient to see pcp for bp Last Documented On 0 1:48PM ; [facility] Instructions for patient to see pcp for bp Last Documented On 9 3:13PM ; [facility] Instructions for patient to see pcp for bp Last Documented On 9 2:58PM ; [facility], [facility] Instructions for patient to see pcp for bp Last Documented On 9 9:14AM ; [facility], [facility] Medical Equipment - Implanted Devices Includes: Current and historical Devices No Medical Equipment Recorded Medications Includes: Current and historical Medications Current Medications (continue as prescribed) Percocet 5-325 MG Oral Tablet 07/03/2025 - 07/18/2025 Provider: Issa Rodriguez MD Diagnosis: 1 po q 4h prn pain Last Documented On 5 8:39AM By Issa Rodriguez ; [facility] Clindamycin HCl 300 MG Oral Capsule 01/07/2025 Provi tahira: Holden Modi PA-C Diagnosis: Last Documented On 5 10:36AM By Quentin Burk ; [facility] oxyCODONE-Acetaminophen 5-325 MG Oral Tablet 5 Provider: Issa Rodriguez MD Diagnosis: Last Documented On 5 9:50AM By Quentin Burk ; [facility] Pantoprazole Sodium 40 MG Or al Tablet Delayed Release 12/09/2024 Provider: Maya Torres MONUMENT INSTALLER Diagnosis: Last Documented On 5 9:50AM By Quentin Burk ; [facility] LORazepam 1 MG Oral Tablet 12/04/2024 Provider: Nancy Torres MONUMENT INSTALLER Diagnosis: Last Documented On 5 9:50AM By Quentin Burk ; [facility] Doxycycline Hyclate 100 MG Oral Capsule 12/04/2024 Papito mccallum: Diagnosis: Last Documented On 5 9:50AM By Quentin Burk ; [facility] sulfaSALAzine 500 MG Oral Tablet 11/27/2024 Provider : Maya Torres MONUMENT INSTALLER Diagnosis: Last Documented On 5 9:50AM By Quentin Burk ; [facility] Albuterol Sulfate HFA 108 (9 0 Base) MCG/ACT Inhalation Aerosol Solution 11/07/2024 Provider: Maya anderson MONUMENT INSTALLER Diagnosis: Last Documented On 5 9:50AM By Quentin Burk ; [facility] Finasteride 5 MG Oral Tablet 11/03/2024 Provider: Maya Torres MONUMENT INSTALLER Diagnosis: Last Documented On 5 9:50AM By Quentin Burk ; [facility] Tamsulosin HCl 0.4 MG Oral Capsule 11/03/2024 Provid er: Maya Torres MONUMENT INSTALLER Diagnosis: Last Documented On 5 3:49PM By Marifer Nuñez ; [facility], [facility] Amoxicillin 875 MG Oral Tablet 09/11/2024 Provider: Diagnosis: Last Documented On 5 9:50AM By Quentin Burk ; [facility] predniSONE 10 MG Oral Tablet 03/11/2021 Provider: Jarek Muñiz DO Diagnosis: Last Documented On 8:34AM By Deborah Lowery ; [facility] Amoxicillin 500 MG Oral Capsule 03/11/2021 Provider: Jarek Muñiz DO Diagnosis: Last Documented On 8:34AM By Deborah Lowery ; [facility] Cephalexin 500 MG Oral Capsule 03/10/2021 Provider: Diagnosis: Last Documented On 8:34AM By Deborah Lowery ; [facility] HYDROcodone-Acetaminophen 5-325 MG Oral Tablet Provider: Diagnosis: Last Documented On 8:34AM By Deborah Lowery ; [facility] Gabapentin 300 MG Oral Capsule 03/06/2021 Provider: Diagnosis: Last Documented On 8:34AM By Debroah Lowery ; [facility] LORazepam 1 MG Oral Tablet 03/06/2021 Provider: Diagnosis: Last Documented On 1 8:34AM By Deborah Lowery ; [facility] Esomeprazole Magnesium 40 MG Oral Capsule Delayed Rele ase 03/04/2021 Provider: Diagnosis: Last Documented On 8:34AM By Deborah Lowery ; [facility] Esomeprazole Magnesium 40 MG Oral Capsule Delayed Rele ase 03/04/2021 Provider: Diagnosis: Last Documented On 1 8:34AM By Deborah Lowery ; [facility] Fluticasone Propionate 50 MCG/ACT Nasal Suspension Provider: Diagnosis: Last Documented On 8:35AM By Deborah Lowery ; [facility] Past Medications on file Clindamycin HCl 300 MG Oral Capsule 01/07/2025 - 01/09/2025 Provider: Holden Steiner Diagnosis: take 2 pills, 3 three times a day Last Documented On 5 11:06AM By Quentin Burk ; [facility] Clindamycin HCl 300 MG Oral Capsule 12/28/2024 - 01/08/2025 Provider: Holden Steiner Diagnosis: three times a day Last Documented On 5 10:10AM By Quentin Burk ; [facility] Percocet 5-325 MG Oral Tablet 12/19/2024 - 01/03/2025 Provider: Issa Rodriguez MD Diagnosis: 1 po q 4h prn pain Last Documented On 5 8:40AM By Issa Rodriguez ; [facility] Losartan Potassium 100 MG Oral Tablet 12/05/2024 - Provider: Diagnosis: Last Documented On 5 3:50PM By Marifer Nuñez ; [facility] DULoxetine HCl 60 MG Oral Ca psule Delayed Release Particles 12/05/2024 - 03/05/2025 Provider: Diagnosis: Last Documented On 5 3:49PM By Marifer Nuñez ; [facility] Montelukast Sodium 10 MG Oral Tablet 12/05/2024 - 02/15 Provider: Diagnosis: Last Documented On 5 3:49PM By Marifer Nuñez ; [facility], [facility] Losartan Potassium 100 MG Oral Tablet 03/03/2021 - Provider: Diagnosis: Last Documented On 5 3:50PM By Marifer Nuñez ; [facility] Montelukast Sodium 10 MG Oral Tablet 02/16/2021 - 11/16 Provider: Diagnosis: Last Documented On 5 3:49PM By Marifer Nuñez ; [facility] DULoxetine HCl 60 MG Oral Ca psule Delayed Release Particles 02/16/2021 - 12/05/2024 Provider: Diagnosis: Last Documented On 5 3:49PM By Marifer Nuñez ; [facility] Percocet 5-325 MG OR TABS 10/05/2019 - 03/12/2021 Prov ider: Issa Rodriguez MD Diagnosis: prn pain Last Documented On 1 8:36AM By Deborah Lowery ; [facility] Dilaudid 2 MG Oral Tablet 05/02/2019 - 03/12/2021 Provider: Domingo tan MD Diagnosis: 1-2 po q6h prn pain (RESCUE PAIN) DO NOT FILL TILL 05/04/2019 FOR SURGERY Last Documented On 1 8:36AM By Deborah Lowery ; [facility] Neurontin 300 MG Oral Capsule 05/02/2019 - 03/12/2021 Provider: Domingo tan MD Diagnosis: 1 every bedtime DO NOT SELVIN L TILL 05/04/2019 FOR SURGERY Last Documented On 1 8:36AM By Deborah Lowery ; [facility] traMADol HCl 50 MG Oral Tablet 05/02/2019 - 03/12/2021 Provider: Domingo tan MD Diagnosis: 1-2 po q6h prn pain DO NOT FILL TILL 05/04/2019 FOR SURGERY Last Documented On 1 8:35AM By Deborah Lowery ; [facility] oxyCODONE HCl 5 MG Oral Tablet 05/02/2019 - 03/12/2021 Provider: Domingo tan MD Diagnosis: 1-2 po q6h prn pain DO NOT FILL TILL 05/04/2019 FOR SURGERY Last Documented On 1 8:36AM By Deborah Lowery ; [facility] Zofran 4 MG Oral Tablet 05/02/2019 - 03/12/2021 Provid er: Domingo Billingsley MD Diagnosis: [id number] DO NOT FILL TILL 05/04/2019 FOR SURGERY Last Documented On 1 8:35AM By Deborah Lowery ; [facility] Keflex 500 MG Oral Capsule 05/02/2019 - 03/12/2021 Provider: Domingo tan MD Diagnosis: 1 every 6 hours DO NOT SELVIN L TILL 05/04/2019 FOR SURGERY Last Documented On 1 8:36AM By Deborah Lowery ; [facility] Acetaminophen 500 MG Oral Tablet 05/02/2019 - 03/12/2021 Provider: Domingo Billingsley MD Diagnosis: 2 three times a day DO NOT FILL TILL 05/04/2019 FOR SURGERY Last Documented On 1 8:36AM By Deborah oLwery ; [facility] Colace 100 MG Oral Capsule 05/02/2019 - 03/12/2021 Provider: Domingo tan MD Diagnosis: 1-2 tabs daily DO NOT FILL TILL 05/04/2019 FOR SURGERY Last Documented On 1 8:36AM By Deborah Lowery ; [facility] Mobic 15 MG Oral Tablet 05/02/2019 - 03/12/2021 Provid er: Domingo Billingsley MD Diagnosis: once a day DO NOT FILL TIL L 05/04/2019 FOR SURGERY Last Documented On 1 8:36AM By Deborah Lowery ; [facility] Mupirocin 2% External Ointment 04/09/2019 - 03/12/2021 Provider: Domingo tan MD Diagnosis: Apply to nostrils 3 times a day 5 days prior to surgery. Last Documented On 1 8:35AM By Deborah Lowery ; [facility] Gabapentin 300MG Oral Capsule 04/05/2019 - 03/12/2021 Provider: Diagnosis: Last Documented On 1 8:35AM By Deborah Lowery ; [facility] HM Loratadine 10MG Oral Tablet 04/05/2019 - 03/12/2021 Provider: Diagnosis: Last Documented On 1 8:35AM By Deborah Lowery ; [facility], [facility] sulfaSALAzine 500MG Oral Tablet 03/24/2019 - Provider: Olga Licea MONUMENT INSTALLER Diagnosis: Last Documented On 1 8:35AM By Deborah Lowery ; [facility], [facility] Losartan Potassium 100MG Ora l Tablet 03/05/2019 - 03/12/2021 Provider: Olga Lozano PRN Diagnosis: Last Documented On 8:35AM By Deborah Lowery ; [facility] Montelukast Sodium 10MG Oral Tablet 03/04/2019 - 03/12/2021 Provider: Olga Lozano PRN Diagnosis: Last Documented On 8:35AM By Deborah Lowery ; [facility] Tamsulosin HCl 0.4MG Oral Capsule 03/04/2019 - 03/12/2021 Provider: Olga Lozano PRN Diagnosis: Last Documented On 8:35AM By Deborah Lowery ; [facility] LORazepam 1MG Oral Tablet 02/22/2019 - 03/12/2021 Prov ider: Olga Licea MONUMENT INSTALLER Diagnosis: Last Documented On 8:35AM By Deborah Lowery ; [facility] DULoxetine HCl 60MG Oral Capsule Delayed Release Particles 02/09/2019 - 03/12/2021 Provider: Olga Lozano PRN Diagnosis: Last Documented On 1 8:35AM By Deborah Lowery ; [facility] Finasteride 5MG Oral Tablet 01/21/2019 - 03/12/2021 Pr ovider: Olga Licea MONUMENT INSTALLER Diagnosis: Last Documented On 1 8:35AM By Deborah Lowery ; [facility] traZODone HCl 150MG Oral Tablet 01/21/2019 - Provider: Olga Licea MONUMENT INSTALLER Diagnosis: Last Documented On 8:35AM By Deborah Lowery ; [facility] Omeprazole 20MG Oral Tablet Delayed Release 12/07/2018 - 03/12/2021 Provider: ANDREA Abbott II, MD Diagnosis: Last Documented On 8:35AM By Deborah Lowery ; [facility] Medications Administered Includes: Administered Medications in patient's chart No Administered Medications Recorded Vital Signs Includes: Vital Signs from 07/15/2024 through 07/15/2025 Vital Name 06/06/2025 09:02A 01/14/2025 10:36A 01/07/2025 11:15A 01/07/2025 10:50A 12/28/2024 09:51A Height (in) 69 69 69 69 Weight (lb) 252 250 250 250 Body Mass Index 37.2 36.9 36.9 36.9 Body Surface Area 2.3 2.3 2.3 2.3 Pain Level 5 3 2 Temp-Oral (F) 97.5 Last Documented: On 06/06/2025 9:02AM ; [facility] On 01/14/2025 10:36AM ; [facility] On 01/07/2025 11:15AM ; [facility] On 01/07/2025 10:50AM ; [facility] On 12/28/2024 9:51AM ; [facility] Vital Name 12/05/2024 02:27P 11/29/2024 03: 21P Height (in) 69 68 Weight (lb) 250 250 Body Mass Index 36.9 38 Body Surface Area 2.3 2.2 Pain Level 8 Note: MCG Last Documented: On 12/05/2024 3:51PM ; [facility] On 11/29/2024 3:22PM ; [facility] Results Includes: Results from 07/15/2024 through 07/15/2025 No Results Recorded For Specified Dates Social History Description Last Updated Tobacco non-user 04/22/2022 Last Documented On 2 10:50AM ; [facility] No recent change in diet 04/22/2022 Last Documented On 2 10:50AM ; [facility] Not a current smoker. 04/22/2022 Last Documented On 2 10:50AM ; [facility] Non-smoker 03/12/2021 Last Documented On 1 8:44AM ; [facility] No tobacco use 04/05/2019 Last Documented On 9 10:53AM ; [facility] Smoking status : Never smoker 04/05/2019 Last Documented On 9 10:53AM ; [facility] Caffeine use 04/05/2019 Last Documented On 9 10:53AM ; [facility] No recent change in diet 04/05/2019 Last Documented On 9 10:53AM ; [facility] Not a current smoker 04/05/2019 Last Documented On 9 10:53AM ; [facility], [facility] Not exercising regularly 04/05/2019 Last Documented On 9 10:53AM ; [facility] Not using alcohol 04/05/2019 Last Documented On 9 10:53AM ; [facility] Not using drugs 04/05/2019 Last Documented On 9 10:53AM ; [facility], [facility] Sex - Male 07/05/2025 Last Documented On 5 2:08PM ; [facility], [facility] Procedures and Surgical History Includes: Procedures from 07/15/2024 through 07/15/2025 Procedures Code Diagnosis Performing Provider Service Location Service Date Revision or removal of implanted spinal neurostimulator puls (Metal Box Maker surgeon) 64980 I/I react d/t implnt elec nstim, generator, init Bekah Cagle PA-C [facility] 07/03/2025 Last Documented On 5 1:56PM ; [facility], [facility] Revision or removal of implanted spinal neurostimulator puls 46647 I/I react d/t implnt elec nstim, generator, init Issa Rodriguez MD [facility] 07/03/2025 Last Documented On 5 1:56PM ; [facility], [facility] X-RAY EXAM OF TRUNK SPINE 59478 Encntr for adjust and mgmt of implanted nervous sys device, Presence of neurostimulator Issa Rodriguez MD [facility] 06/06/2025 Last Documented On 5 2:21PM ; [facility] Insertion or replacement of spinal neurostimulator pulse gen (Distinct procedure) 59138 Chronic pain syndrome Issa Rodriguez MD [facility] 12/19/2024 Last Documented On 5 5:16PM ; [facility] Revision including replacement, when [place] [address] [facility] compl of implnt elec nstim of spinal cord lead, init Issa Rodriguez MD 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, r hand [facility] 12/05/2024 Last Documented On 5 3:22PM ; [facility] INJ TENDON SHEATH/LIGAMENT (LEFT HAND, THIRD DIGIT) 04168 Trigger finger, left middle finger [facility] 12/05/2024 Last Documented On 5 3:22PM ; [facility] DRAIN/INJECT, JOINT/BURSA (RIGHT) 66569 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, r hand [facility] 12/05/2024 Last Documented On 5 3:22PM ; [facility] X-RAY EXAM OF LOWER SPINE 2-3 VIEWS LIMITED 22685 Chronic pain syndrome Issa Rodriguez MD [facility] 11/29/2024 Last Documented On 5 11:33AM ; [facility] X-RAY EXAM OF THORACIC SPINE 2 VIEWS 29613 Chronic pain syndrome Issa Rodriguez MD [facility] 11/29/2024 Last Documented On 5 11:33AM ; [facility] Surgical History Last Updated History of hernia repair 04/05/2019 Last Documented On 9 10:53AM ; [facility] Medical History Includes: Medical History in patient's chart Description Last Updated No recent immunization for flu Last Documented On 1 8:44AM ; [facility] No recent immunization for pneumococcal pneumonia 03/12/2021 Last Documented On 1 8:44AM ; [facility] cataracs 04/05/2019 Last Documented On 9 10:53AM ; [facility] Arthritic joint problems 04/05/2019 Last Documented On 9 10:53AM ; [facility] Intermittent hypertension 04/05/2019 Last Documented On 9 10:53AM ; [facility] Family History Includes: Family History in patient's chart Description Last Updated Family history of cancer 04/05/2019 Last Documented On 9 10:53AM ; [facility] [facility] Family history of hypertension 9 Last Documented On 9 10:53AM ; [facility] Mental Status Description Anxiety Last Documented On 5 8:58AM ; [facility] Anxiety Last Documented On 5 10:36AM ; [facility] Anxiety Last Documented On 5 10:49AM ; [facility] Anxiety Last Documented On 5 9:50AM ; [facility] Anxiety Last Documented On 5 2:27PM ; [facility] No anxiety Last Documented On 5 3:07PM ; [facility] No anxiety Last Documented On [...] and resolved Allergies No Known Allergies Care Nurse Reviewer Name (Identifier) Role/Relation Location/Telecom Last Documented By Domingo Billingsley MD ([id number]) Assigned practitioner (occupation) tel:[phone] Last Documented On 07/05/2025 2:08PM ; [facility] Olga Licea APRN ([id number]) [address] [place] [address], [id number] tel: Last Documented On 04/05/2019 9:06AM ; [facility] Encounters Includes: Encounters from 07/15/2024 through 07/15/2025 Encounter Provider Location (Healthcare Service Location) Date Check-In Time Check-Out Time Diagnosis Encounter Disposition [Patient Encounter] Issa Rodriguez MD [facility] Outpt 202406/06/2025 1:55PM 06/06/2025 11:59PM [Patient Encounter] Issa Rodriguez MD 202406/06/2025 8:31AM 06/06/2025 11:59PM Follow Up Issa Rodriguez MD [facility] 2024 8:53AM 10:11AM Overweight Post Op Holden oMdi PA-C [facility] 2024 10:30AM 10:40AM Overweight Post Op Holden Modi PA-C [facility] 2024 10:33AM 11:15AM Overweight Post Op Holden Modi PA-C [facility] 2024 9:29AM 10:09AM Overweight [Patient Encounter] Issa Rodriguez MD 202412/05/2024 8:36AM 12/05/2024 11:59PM [facility] Issa Rodriguez MD Surgery 202412/23/2024 5:01PM 12/05/2024 11:59PM IN HOUSE REFERRAL Flako Pulido PA-C [facility] 2024 2:26PM 3:21PM Overweight Follow Up Issa Rodriguez MD [facility] 2024 3:04PM 3:32PM Payer Includes: Active Insurance Policies Plan Name (Payer ID) Coverage Type Member ID Group # Subscriber (ID) Relationship Effective Dates 1 - Medicare Part B [facility] ([id number]) [id number] Stephane Mendieta Self (Checked on 06/03/2025) Last Documented On 9 7:57AM ; [facility] 2 - [employer] Medicare Supplemen t Insurance [id number] Stephane Mendieta Self 09/15/2017 - Unknown Last Documented On 9 8:40AM ; [facility] Clinical Notes Includes: Signed Clinical Notes starting from 07/01/2022 * Progress note Date Encounter Last Documented by 06/06/2025 Follow Up Last documented on 06/11/2025; 1:20 PM, Issa Rodriguez MD; [facility] Active Problems [...] Care Team - Olga Licea APRN - CHECKERER HAND Health Reminders - Assess BMI satisfied 06/06/2025. - Assess Tobacco Use satisfied 04/05/2019. - Follow Up Plan BMI Management satisfied 06/06/2025. * Progress note Date Encounter Last Documented by 01/14/2025 Post Op Last documented on 01/14/2025; 10:41 AM, Holden Modi PA-C; [facility] Active Problems [...] Care Team - Olga Licea APRN - CHECKERER HAND * Progress note Date Encounter Last Documented by 01/07/2025 Post Op Last documented on 01/28/2025; 11:48 AM, Holden Modi PA-C; [facility] Active Problems [...] Care Team - Olga Licea APRN - CHECKERER HAND * Progress note Date Encounter Last Documented by 12/28/2024 Post Op Last documented on 12/28/2024; 12:21 PM, Holden Modi PA-C; [facility] Active Problems & [...] Care Team - Olga Licea APRN - CHECKERER HAND * Progress note Date Encounter Last Documented by 12/05/2024 IN HOUSE REFERRAL Last documente d on 12/05/2024; 4:17 PM, Flako Pulido PA-C; [facility] Active Problems & [...] Care Team - Olga Licea APRN - CHECKERER HAND * Progress note Date Encounter Last Documented by 11/29/2024 Follow Up Last documented on 12/17/2024; 10:39 AM, Issa Rodriguez MD; [facility] Active Problems & [...] 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 He is neurovascularly intact. He is [...] Care Team - Olga Licea APRN - CHECKERER HAND Health Reminders - Assess BMI satisfied 11/29/2024. - Assess Tobacco Use satisfied 04/05/2019. - Follow Up Plan BMI Management satisfied 11/29/2024.
[2025-07-15 10:44] LABS: Hematocrit 32.5 % (42.0-52.0); Hemoglobin 10.0 g/dL (14.1-18.0); Immature Granulocytes % 1.5 %; Mean Corpuscular HGB Conc 30.8 g/dL (31.8-35.4); Mean Corpuscular Hemoglobin 27.5 pg (27.0-31.2); Mean Corpuscular Volume 89.3 fl (80-94); Nucleated Red Blood Cells % 0 %; Platelet Count 214 K/mm3 (142-424); Red Blood Count 3.64 M/mm3 (4.60-6.20); Red Cell Distribution Width-SD 45.7 fL; White Blood Count 10.9 K/mm3 (4.8-10.8)
[2025-07-15 10:48] LABS: Albumin Level 3.9 g/dl (3.5-5.0); Chloride 105 mmol/L (98-107); Sodium 139 mmol/L (136-145)
[2025-07-15 10:49] LABS: Potassium 3.3 mmoL/L (3.5-5.1)
[2025-07-15 10:51] LABS: Alanine Aminotransferase 50 U/L (12-78); Albumin/Globulin Ratio 1.3 (1.1-1.8); Alkaline Phosphatase 64 U/L (38-126); Anion Gap 11.3 mEq/L (5-15); Aspartate Amino Transferase 76 U/L (17-59); Bilirubin,Total 0.3 mg/dl (0.2-1.3); Blood Urea Nitrogen 12 mg/dl (9-20); Carbon Dioxide 26 mmol/L (22.0-30.0); Creatinine,Serum 0.90 mg/dl (0.66-1.25); Estimated Glomerular Filt Rate 83 ml/min (>60); GFR (African American) 100 ML/MIN (>60); Globulin 3.0 g/dL (1.3-3.2); Total Protein,Serum 6.9 g/dl (6.3-8.2)
[2025-07-15 10:52] LABS: Calcium 9.4 mg/dl (8.4-10.2); Creatine Kinase 794 U/L (55-170); Glucose 123 mg/dl (74-100)
[2025-07-15 10:57] LABS: C-Reactive Protein 13.5 mg/L (0-4)
[2025-07-15 11:15] VITALS: BP 178/90; PULSE 74
[2025-07-15] MEDS: SODIUM CHLORIDE 0.9% 10ML FLUSH SYRINGE 10 ML IV (11:15)
== END 2025-07-15 23:59 | disposition home or self-care (01) ==
LOC: INF 10:27
PROVIDERS: PCP Nurse Practitioner; Visit Provider Internal Medicine Infectious Disease
DX: T85.73 Infection and inflammatory reaction due to nervous system devices, implants and graft (principal)
CPT/HCPCS: 80053; 82550; 85025; 85651; 86140; 96365; J0878

== ENCOUNTER 2025-07-16 10:11 | Outpatient (CLI) | payer MEDICARE, OTHER, SELFPAY ==
--- OUTSIDE RECORDS SUMMARY | 2022-12-01 11:56 | XMS_ITS | Encounter Summary ---
[facility] [address] [place] [address] Care Team Providers Care Enterprise Application Analyst Name Role Phone Maya Torres Primary Care Provider + [phone] Encounter Details Date Type Department Care Team (Late st Contact Info) Description 12/01/2022 12:56 PM EDT Hospital Encounter [facility] PULMONARY & CRITICAL CARE MEDICINE [facility] [place] [address] Social History Tobacco Use Types [...] Narrative 12/01/2022 1:31 PM EDT Stephane Annton [id number] 12/01/2022 Chest X-Ray PA & Lateral Indication: [...] on filedocumented in this encounter Care Teams Enterprise Application Analyst Relationship Specialty Start Date End Date Maya Torres [address] [place] [address] PCP - General Nurse Practitioner 09/28/22 documented as of this encounter
--- OUTSIDE RECORDS SUMMARY | 2024-04-27 06:30 | XMS_ITS ---
Author Organization [facility] Address [address] [place] [address] Care Team Providers Care Hospitality Services Manager Name Role Phone Jerome Morrissey II Unavailable Michael COLEMAN -Pramod Velazquez MD, Issa Unavailable [phone] Allergies No Known Allergies REASON FOR VISIT [...] Diagnosis [facility] [address] [place] [address] 04/27/2024 Jerome Morrissey Other skilled nursing (current) drug therapy Z79.899 ; Spondylosis without myelopathy or radiculopathy, cervical region M47.812 ; Postlaminectomy syndrome, not elsewhere classified M96.1 and Spondylosis without myelopathy or radiculopathy, lumbar region M47.816 Assessments Encounter Date Diagnosis (ICD Code) Assessment Notes Treatment Notes Treatment Clinical Notes Section Notes 04/27/2024 Other middle or intermediate school principal (current) drug therapy (ICD-10 - Z79.899) 04/02/2024 1. Discontinue [place] 5/325mg QD PRN 2. FU 1 month with [facility] 3. [employer] [facility] to change SCS settings 4. S/P [...] no relief with TFESI LT in January. [employer] rep in the room changing SCS settings. [...] no relief with TFESI LT in January. [employer] rep in the room changing SCS settings. [...] no relief with TFESI LT in January. [employer] rep in the room changing SCS settings. [...] no relief with TFESI LT in January. [employer] rep in the room changing SCS settings. [...] Of Treatment Treatment Notes Assessment Notes Other skilled nursing (current) drug therapy 04/02/2024 1. Discontinue [place] 5/325mg QD PRN 2. FU 1 month with [facility] 3. [employer] rep to change SCS settings 4. S/P [...] Stephane YANEZ ADOB: 3 (74 yo M)Acc No.[id number]:04/27/2024 FollowUP Patient: Stephane RODRIGUEZ Provider: Reji Morrissey II, M.D. :1950 A ge:73 Y S ex:Male Date:04/27/2024 Address:[address] [place], [place] [id number] Subjective: * Chief Complaints: * 1 . [...] relief for 1 hour 0 08/09/2022SCS Trial [place] 80% relief for 1 week 0 02/13/2024#1 [...] * Vitals: * Examination: G eneral Examination: Nurse/Barrelhead Inspector: Phill McnamaraMA-Shamar)Madeleine 04/02/2024 9:48:48 AM > . [...] scars. Assessment: * Assessment: 1. O ther middle or intermediate school principal (current) drug therapy - Z79.899 (Primary) 2 [...] no relief with TFESI LT in January. [employer] rep in the room changing SCS settings. [...] signature of Raymon Morrissey II, M.D. on 07/16/2025 at 09:36 AM SOW FARM BARN TECHNICIAN Sign off status: Pending * Provider: Reji Morrissey II, M.D. Date: 1 Generated for Irwin spears/Davon/Eric on: 1 09:36 AM SOW FARM BARN TECHNICIAN History and Physical Notes * HPI (History [...] to advanced foraminal encroachment PHYSICAL/AQUA THERAPY/DME/OTHER HISTORY: 2184-7280 Chiropractic therapy program complete 06/2023-Present: Patient continues a prescribed home exercise program 3-5 times per week which includes walking, lumbar stretches, and alternating leg lifts PERTINENT SURGICAL EVALUATIONS/SPECIALIST CONSULTS 04/2022 - Dr. Rodriguez - No surgery recommened, recommends SCS trial PREVIOUS INJECTION\PROCEDURE HISTORY: 08/21/2019 #1 SIJI RT 20% relief for 1 hour 08/09/2022 SCS Trial [place] 80% relief for 1 week 02/13/2024 #1 [...] wi th an antalgic gait, pitched forward Nurse/Barrelhead Inspector: Mendez SHARMA-Shamar)Fracnisco J 04/02/2024 9:48:48 AM > Cervical Spine/Neck [...]
--- OUTSIDE RECORDS SUMMARY | 2024-05-28 10:30 | XMS_ITS ---
Author Organization [facility] Address [address] [place] [address] Care Team Providers Care Certified Medication Aide Name Role Phone Jerome Morrissey II Unavailable [phone] Michael COLEMAN -Pramod Velazquez MD, Issa Unavailable [phone] Allergies No Known Allergies REASON FOR VISIT [...] Diagnosis [facility] [address] [address] 05/28/2024 Jerome Morrissey Other keno terminal operator (current) drug therapy Z79.899 ; Spondylosis without myelopathy or radiculopathy, cervical region M47.812 ; Postlaminectomy syndrome, not elsewhere classified M96.1 and Spondylosis without myelopathy or radiculopathy, lumbar region M47.816 Assessments Encounter Date Diagnosis (ICD Code) Assessment Notes Treatment Notes Treatment Clinical Notes Section Notes 05/28/2024 Other detention (current) drug therapy (ICD-10 - Z79.899) 04/02/2024 1. Discontinue [place] 5/325mg QD PRN 2. FU 1 month with [facility] 3. [employer] rep to change SCS settings 4. S/P [...] no relief with TFESI LT in January. [employer] rep in the room changing SCS settings. [...] no relief with TFESI LT in January. [employer] rep in the room changing SCS settings. [...] no relief with TFESI LT in January. [employer] in the room changing SCS settings. Patient [...] no relief with TFESI LT in January. [employer] rep in the room changing SCS settings. [...] Of Treatment Treatment Notes Assessment Notes Other keno terminal operator (current) drug therapy 04/02/2024 1. Discontinue [place] 5/325mg QD PRN 2. FU 1 month with [facility] 3. [employer] rep to change SCS settings 4. S/P [...] Stephane MENDIETA ADOB: 3 (74 yo M)Acc No.[id number]:05/28/2024 Progress NOte Patient: Stephane RODRIGUEZ Provider: Reji Morrissey II, M.D. :1950 A ge:73 Y S ex:Male Date:05/28/2024 Address:[address] [place] [phone] Subjective: * Chief Complaints: * 1 . [...] for 1 hour 0 08/09/2022 SCS Trial Nxnbcu87% relief for 1 week 0 02/08/2024- #1 [...] * Vitals: * Examination: G eneral Examination: Nurse/Public Relations Consultant: Madeleine Gonzalez (MA-Lex) 04/02/2024 9:48:48 AM > [...] scars. Assessment: * Assessment: 1. O ther detention (current) drug therapy - Z79.899 (Primary) 2 [...] no relief with TFESI LT in January. [employer] rep in the room changing SCS settings. [...] Raymon Morrissey II, M.D. on 07/16/2025 at 09:37 AM CEMENT BOAT AND BARGE LOADER Sign off status: Pending * Provider: Reji Morrissey II, M.D. Date: 07/28/2023 Generated for Irwin spears/Davon/Nicholasransmitting on: 09:37 AM CEMENT BOAT AND BARGE LOADER History and Physical Notes * HPI (History [...] to advanced foraminal encroachment PHYSICAL/AQUA THERAPY/DME/OTHER HISTORY: 4494-9454 Chiropractic therapy program complete 06/2023-Present: Patient continues a prescribed home exercise program 3-5 times per week which includes walking, lumbar stretches, and alternating leg lifts PERTINENT SURGICAL EVALUATIONS/SPECIALIST CONSULTS 04/2022 - Dr. Rodriguez - No surgery recommened, recommends SCS trial PREVIOUS INJECTION\PROCEDURE HISTORY: 08/21/2019 #1 SIJAYLYN RT 20% relief for 1 hour 08/09/2022 SCS Trial [place] 80% relief for 1 week 02/08/2024 - [...] wi th an antalgic gait, pitched forward Nurse/Public Relations Consultant: Mendez (ALEJANDRINA-[facility])Francisco J 04/02/2024 9:48:48 AM > [...]
[2025-07-16 10:25] VITALS: BP 154/96; PULSE 71; RESP 18; O2SAT 95
[2025-07-16] MEDS: DAPTOmycin 1,000 MG in 0.9 % SODIUM CHLORIDE 50 ML 100 MG IV (10:25)
--- OUTSIDE RECORDS SUMMARY | 2025-07-16 10:35 | XMS_ITS | Encounter Summary ---
Author Organization [employer] ([place], [place], [place], [place], [place]) Address [address] [place] [address] Care Team Providers Care Stoker Installation Mechanic Name Role Phone Maya Torres Reji BELCHER Primary Care Provider [phone]- [phone] Encounter Details Date Type Department Care Team (Late st Contact Info) Description 10/27/2020 Transcribed Document [facility] Family Medicine [facility] [place] [address] ProviderJean MD [address] [place] [address] Social History Tobacco Use Types Packs/Day Years Used Date Smoking Tobacco: Never Assessed Sex and Gender Information Value Date Recorded Sex Assigned at Not on file Legal Sex Male 5:19 PM CDT Gender Identity Not on file Sexual Orientation Not on file documented as of this encounter Miscellaneous Notes * Cerner Conversion Note - Jean Saawnt MD - 10/27/2020 12:35 PM CDT Vital Signs ED Entered On: 10/27/2020 12:36 EDT Performed On: 10/27/2020 12:35 EDT by Jasmin Thornton RN Vital Signs ED Temperature Mode : Fahrenheit Blood Pressure Location : Arm, right upper Systolic Blood Pressure : 145 mmHg (HI) Diastolic Blood Pressure : 73 mmHg Jasmin Thornton RN - 10/27/2020 12:35 EDT Electronically signed by Becky Tejeda Conversion Artificial Leather Calender Operator Cerner at 11/04/2022 3:22 PM CDT documented in this encounter Plan of Treatment Not on file documented as of this encounter Visit Diagnoses Not on filedocumented in this encounter Care Teams Stoker Installation Mechanic Relationship Specialty Start Date End Date Maya Torres, PREPRESS STRIPPER [address] [phone] PCP - General Family Medicine 08/27/22 documented as of this encounter
--- OUTSIDE RECORDS SUMMARY | 2025-07-16 10:36 | XMS_ITS | Encounter Summary ---
Author Organization [employer] ([place], [place], [place], [place], [place]) Address [address] [place] [address] Care Team Providers Care Relationship Banker Name Role Phone Maya Torres Reji BELCHER Primary Care Provider +1- [phone] Encounter Details Date Type Department Care Team (Late st Contact Info) Description 10/27/2020 Transcribed Document [facility] Family [facility] [place] [address] ProviderJean MD [address] [place] [address] Social History Tobacco Use Types [...] 12:04 EDT by Alina Easley Flex Team boat canvas maker installer Triage Across the Room Chief Complaint : [...] Tetanus Immunization : Less than 5 years Chief Technician X Ray Needed : No Alina Easley Flex Team [...] Problems(Active) At risk for sleep apnea (IMO :82933399 ) Name of Problem: At risk for sleep apnea ; Recorder: SYSTEM, SYSTEM; Confirmation: Confirmed ; Classification: Medical ; Code: [id number] ; Last Updated: 06/16/2018 8:18 EST ; Life Cycle Date: 06/16/2018 ; Life Cycle Status: Active ; Vocabulary: IMO Enlarged prostate (SNOMED CT :360666244 ) Name of Problem: Enlarged prostate ; Recorder: Shavonne Jimenez RN; Confirmation: Confirmed ; Classification: Medical ; Code: [id number] ; Contributor System: PowerChart ; Last Updated: 06/16/2018 8:22 EST ; Life Cycle Date: 06/16/2018 ; Life Cycle Status: Active ; Vocabulary: SNOMED CT Hypertension (SNOMED CT :9411296979 ) Name of Problem: Hypertension ; Recorder: Shavonne Jimenez RN; Confirmation: Confirmed ; Classification: Medical ; Code: [id number] ; Contributor System: PowerChart ; Last Updated: 06/16/2018 8:21 EST ; Life Cycle Date: 06/16/2018 ; Life Cycle Status: Active ; Vocabulary: SNOMED CT Seasonal allergies (SNOMED CT :7478446009 ) Name of Problem: Seasonal allergies ; Recorder: Shavonne Jimenez RN; Confirmation: Confirmed ; Classification: Medical ; Code: [id number] ; Contributor System: [employer] ; Last Updated: 06/16/2018 8:22 EST ; Life Cycle Date: 06/16/2018 ; Life Cycle Status: Active ; Vocabulary: SNOMED CT Diagnoses(Active) Medical screening exam Date: 10/27/2020 ; Diagnosis Type: Reason For Visit ; Confirmation: Complaint of ; Clinical Dx: Medical screening exam ; Classification: Medical ; Clinical Service: Non-Specified ; Code: PNED ; Probability: 0 ; Diagnosis Code: [id number] ED Height and Weight Height Source : Stated Height Entry Format : [place] Height, Feet : 5 ft(Converted to: 152 cm, 60 Inch) Height, Inches : 8 Inch(Converted to: 0 ft 8 Inch, 20.32 cm) Clinical Height : 172.72 cm Weight Source, ED : Critical estimated dosing weight Weight Entry Format : [place] Weight, Pounds : 250 lb Clinical Dosing Weight : 113.64 kg Body Surface Area (BSA) : 2.25 m2 Body Mass Index : 38.1 kg/m2 (HI) Blanca Body Weight (IBW) : 67.45 kg Alina [...] on filedocumented in this encounter Care Teams Relationship Banker Relationship Specialty Start Date End Date Maya Torres, INTERNATIONAL RECRUITER [address] [phone] PCP - General Family Medicine 08/27/22 documented as of this encounter
--- OUTSIDE RECORDS SUMMARY | 2025-07-16 10:36 | XMS_ITS | Encounter Summary ---
Author Organization [employer] ([place], [place], [place], [place], [place]) Address [address] [place] [address] Care Team Providers Care Extension Worker Name Role Phone Maya Torres APRN Primary Care Provider +1- [phone] Encounter Details Date Type Department Care Team (Late st Contact Info) Description 10/30/2020 Transcribed Document [facility] Family Medicine [facility] [place] [address] ProviderJean MD [address] [place] [address] Social History Tobacco Use Types [...] on filedocumented in this encounter Care Teams Extension Worker Relationship Specialty Start Date End Date Maya Torres APRN [address] [facility] [address] [place] [address] PCP - General Family Medicine 08/27/22 documented as of this encounter
--- OUTSIDE RECORDS SUMMARY | 2025-07-16 10:36 | XMS_ITS | Encounter Summary ---
Author Organization [employer] ([place], [place], [place], [place], [place]) Address [address] [place] [address] Care Team Providers Care Speech Language Pathologist Prn Name Role Phone Maya Torres APRN Primary Care Provider +1- [phone] Encounter Details Date Type Department Care Team (Late st Contact Info) Description 10/27/2020 Transcribed Document [facility] Family Medicine [address] [place] [address] ProviderJean MD [address] [place] [address] Social History Tobacco Use Types [...] 10/27/2020 6:32 PM CDT Electronically signed by [facility] Conversion Record Retrieval Specialist Cerner at 11/04/2022 3:28 PM CDT documented in this encounter Plan of Treatment Not on file documented as of this encounter Visit Diagnoses Not on filedocumented in this encounter Care Teams Speech Language Pathologist Prn Relationship Specialty Start Date End Date Maya Torres APRN [address] [facility] [address] [place] [address] PCP - General Family Medicine 08/27/22 documented as of this encounter
--- OUTSIDE RECORDS SUMMARY | 2025-07-16 10:36 | XMS_ITS ---
Care Plan - [facility], [facility] Created on: July 16, 2025 Stephane Mendieta : 1950 Sex: Male Author Organization [facility] Address [address] [place] [address] Phone Care Team Providers Care Teletypesetter Name Role Phone Jose Cruz COLEMAN, Domingo Jett Unavailable [phone] Olga Licea APRN Unavailable [phone]
--- OUTSIDE RECORDS SUMMARY | 2025-07-16 10:36 | XMS_ITS | Encounter Summary ---
Author Organization [employer] ([place], [place], [place], [place], [place]) Address [address] [place] [address] Care Team Providers Care Salesperson Furniture Name Role Phone Maya Torres Reji BELCHER Primary Care Provider +1- [phone] Encounter Details Date Type Department Care Team (Late st Contact Info) Description 10/27/2020 Transcribed Document [facility] Family Medicine [address] [place] [address] ProviderJean MD [address] [place] [id number] Social History Tobacco Use Types Packs/Day Years Used Date Smoking Tobacco: Never Assessed Sex and Gender Information Value Date Recorded Sex Assigned at Not on file Legal Sex Male 5:19 PM CDT Gender Identity Not on file Sexual Orientation Not on file documented as of this encounter Miscellaneous Notes * Cerner Conversion Note - Jean ProviderMD - 10/27/2020 11:59 AM CDT [place] Suicide Severity Rating Scale (C-SSRS) Entered On: 10/27/2020 12:32 EDT Performed On: 10/27/2020 12:21 EDT by Jasmin Thornton RN [place] Suicide Severity Rating Scale (C-SSRS) CSSRS Past [...] on filedocumented in this encounter Care Teams Salesperson Furniture Relationship Specialty Start Date End Date Maya Torres, FAMILY SERVICES ASSISTANT [address] [phone] PCP - General Family Medicine 08/27/22 documented as of this encounter
--- OUTSIDE RECORDS SUMMARY | 2025-07-16 10:36 | XMS_ITS | Encounter Summary ---
Author Organization [employer] ([place], [place], [place], [place], [place]) Address [address] [place] [address] Care Team Providers Care Engine Lathe Set Up Operator Tool Name Role Phone Maya Torres SIMI Primary Care Provider +1- [phone] Encounter Details Date Type Department Care Team (Late st Contact Info) Description 10/27/2020 Transcribed Document [facility] [place] [address] ProviderJean MD [address] [place] [id number] Social History Tobacco Use Types Packs/Day Years [...] EDT Height Source Stated Height Entry Format [place] Height/Length, GHANAIAN (ft) 5 ft Height/Length GHANAIAN 8 Inch CLINICALHEIGHT 172.72 cm [place] Body Weight 67.45 kg Weight Source, ED Critical estimated dosing weight Weight Entry Format [place] Weight Guyanese lb 250 lb CLINICALWEIGHT 113.64 kg Body [...] Color Yellow Urine Appearance Clear Urine Specific [place] 1.006 Urine pH Dipstick 6.5 Urine Leukocyte [...] % LOW ALYC # 1 K/uL NA [place] Percent Man 2 % LOW Eos Percent Man 1 % Baso Percent Man 1 % Myelo Percent Man 2 % HI RBC Morphology Normal Platelet Ct Estimate Adequate Slide Review Add Diff Man PT 9.9 Second(s) INR 0.9 PTT 25.2 Second(s) Procalcitonin <0.25 ng/mL SARS-CoV-2 (COVID19 PCR) Negative . Radiology results: Radiology Results (Last 48 hours) [id number] -- 10/27/2020 11:59 CT Abdomen Pelvis W [...] Patient care transitioned to: Time: 10/27/2020 16:26:00, ROSARUA THEODORE MD. Patient was given the following educational materials: Contusion. Follow up with: MAYA TORRES Within 2 to 3 days. Counseled: Patient, Regarding diagnosis, Regarding diagnostic results, Regarding treatment plan, Patient indicated understanding of instructions. documented in this encounter Plan of Treatment Not on file documented as of this encounter Visit Diagnoses Not on filedocumented in this encounter Care Teams Engine Lathe Set Up Operator Tool Relationship Specialty Start Date End Date Maya Torres, SUPERVISOR PRINTING AND STAMPING [address] [phone] PCP - General Family Medicine 08/27/22 documented as of this encounter
--- OUTSIDE RECORDS SUMMARY | 2025-07-16 10:36 | XMS_ITS | Encounter Summary ---
Author Organization [email or web address] ([place], [place], [place], [place], [place]) Address [address] [place] [address] Care Team Providers Care Semiconductor Engineer Name Role Phone Maya Torres Reji BELCHER Primary Care Provider +1- [phone] Encounter Details Date Type Department Care Team (Late st Contact Info) Description 10/27/2020 Transcribed Document [facility] [place] [address] [place] [address] ProviderJean MD [address] [place] [address] Social History Tobacco Use Types [...] on filedocumented in this encounter Care Teams Semiconductor Engineer Relationship Specialty Start Date End Date Maya Torres, CONSTRUCTION MILLWRIGHT [address] [phone] PCP - General Family Medicine 08/27/22 documented as of this encounter
--- OUTSIDE RECORDS SUMMARY | 2025-07-16 10:36 | XMS_ITS | Encounter Summary ---
Author Organization [employer] ([place], [place], [place], [place], [place]) Address [address] [place] [address] Care Team Providers Care Long Lines Operator Name Role Phone Maya Torres Reji BELCHER Primary Care Provider +1- [phone] Encounter Details Date Type Department Care Team (Late st Contact Info) Description 10/27/2020 Transcribed Document [facility] [place] [address] [place] [address] ProviderJean MD [address] [place] [address] Social History Tobacco Use Types [...] on filedocumented in this encounter Care Teams Long Lines Operator Relationship Specialty Start Date End Date Maya Torres, BUTT WELDER [address] [phone] PCP - General Family Medicine 08/27/22 documented as of this encounter
--- OUTSIDE RECORDS SUMMARY | 2025-07-16 10:36 | XMS_ITS | Clinical Summary ---
Author Organization [facility] Address [address] [place] [address] Phone Care Team Providers Care Md Ophthalmologist Name Role Phone Jose Cruz COLEMAN, Domingo Jett Unavailable [phone] Olga Licea APRN Unavailable [phone] Reason for Visit and Chief Complaint The Chief Complaint is: back pain Problems Includes: Problems addressed during this encounter and other active Problems All Visits Onset Date Date of Diagnosis Resolved Date Provider Condition Status Soft Tissue Pain Hand 12/05/2024 12/05/2024 Flako uPlido PA-C Active Last Documented On 5 1:43AM ; [facility] History of Lower Back Pain M idline Right Side 04/12/2022 04/12/2022 Holden Modi PA-C Active Last Documented On 5 1:41AM ; [facility], [facility] Joint Pain Left Thumb 03/12/2021 03/12/2021 Charles Hernandez MD Active Last Documented On 5 1:40AM ; [facility], [facility] Joint Pain in Both Knees 04/05/2019 04/05/2019 Arlet Billingsley MD Active Last Documented On 5 1:39AM ; [facility] Plan of Treatment - Patient screened for future fall risk: documentation of any fall with injury in past year - Last Documented On 06/11/2025 1:20PM ; [facility], [facility] Fall Risk Assessment: This patient has [...] - Last Documented On 06/11/2025 1:20PM ; [facility], [facility] Future Appointments Date Time Location Provi [place] Post Op 07/19/2025 11:00AM [facility] MIAH Modi PA-C Last Documented On 5 10:29AM ; [facility], [facility] Instructions to patient Lose weight Last Documented On 8:58AM ; [facility], [facility] Assessments Includes: Assessments from this encounter Findings - Overweight - Last Documented On 06/11/2025 1:20PM ; [facility], [facility] Instructions Includes: Instructions from this encounter Instructions to patient Lose weight Last Documented On 8:58AM ; [facility], [facility] Medical Equipment - Implanted Devices Includes: Current Devices No Medical Equipment Recorded Medications Includes: Medications discussed during this encounter and other current Medications Current Medications (continue as prescribed) Percocet 5-325 MG Oral Tablet 07/03/2025 - 07/18/2025 Provider: Issa Rodriguez MD Diagnosis: 1 po q 4h prn pain Last Documented On 5 8:39AM By Issa Rodriguez ; [facility], [facility] Clindamycin HCl 300 MG Oral Capsule 01/07/2025 Provi tahira: Holden Mdoi PA-C Diagnosis: Last Documented On 5 10:36AM By Quentin Burk ; [facility], [facility] oxyCODONE-Acetaminophen 5-325 MG Oral Tablet Provider: Issa Rodriguez MD Diagnosis: Last Documented On 5 9:50AM By Quentin Burk ; [facility], [facility] Pantoprazole Sodium 40 MG Or al Tablet Delayed Release 12/09/2024 Provider: Maya Torres APRN Diagnosis: Last Documented On 5 9:50AM By Quentin Burk ; [facility], [facility] LORazepam 1 MG Oral Tablet 12/04/2024 Provider: M ichelle Stone [employer]OWER B[employer]CHER [employer] PICKER Diagnosis: Last Documented On 5 9:50AM By Quentin Burk ; [facility], [facility] Doxycycline Hyclate 100 MG Oral Capsule 12/04/2024 Papito washingtonder: Diagnosis: Last Documented On 5 9:50AM By Quentin Burk ; [facility], [facility] sulfaSALAzine 500 MG Oral Tablet 11/27/2024 Provider : Maya Torres [employer]ER Diagnosis: Last Documented On 5 9:50AM By Quentin Burk ; [facility], [facility] Albuterol Sulfate HFA 108 (9 0 Base) MCG/ACT Inhalation Aerosol Solution 11/07/2024 Provider: Maya anderson [employer]ER Diagnosis: Last Documented On 5 9:50AM By Quentin Burk ; [facility], [facility] Finasteride 5 MG Oral Tablet 11/03/2024 Provider: Maya Torres [employer] PICKER Diagnosis: Last Documented On 5 9:50AM By Quentin Burk ; [facility], [facility] Tamsulosin HCl 0.4 MG Oral Capsule 11/03/2024 Provid er: Maya Torres [employer]ER Diagnosis: Last Documented On 5 3:49PM By Marifer Nuñez ; [facility], [facility] Amoxicillin 875 MG Oral Tablet 09/11/2024 Provider: Diagnosis: Last Documented On 5 9:50AM By Quentin Burk ; [facility], [facility] predniSONE 10 MG Oral Tablet 03/11/2021 Provider: Jarek Muñiz DO Diagnosis: Last Documented On 8:34AM By Deborah Lowery ; [facility], [facility] Amoxicillin 500 MG Oral Capsule 03/11/2021 Provider: Jarek Muñiz DO Diagnosis: Last Documented On 8:34AM By Deborah Lowery ; [facility], [facility] Cephalexin 500 MG Oral Capsule 03/10/2021 Provider: Diagnosis: Last Documented On 8:34AM By Deborah Lowery ; [facility], [facility] HYDROcodone-Acetaminophen 5-325 MG Oral Tablet Provider: Diagnosis: Last Documented On 8:34AM By Deborah Lowery ; [facility] Gabapentin 300 MG Oral Capsule 03/06/2021 Provider: Diagnosis: Last Documented On 8:34AM By Deborah Lowery ; [facility], [facility] LORazepam 1 MG Oral Tablet 03/06/2021 Provider: Diagnosis: Last Documented On 8:34AM By Deborah Lowery ; [facility], [facility] Esomeprazole Magnesium 40 MG Oral Capsule Delayed Rele ase 03/04/2021 Provider: Diagnosis: Last Documented On 8:34AM By Deborah Lowery ; [facility], [facility] Esomeprazole Magnesium 40 MG Oral Capsule Delayed Rele ase 03/04/2021 Provider: Diagnosis: Last Documented On 8:34AM By Deborah Lowery ; [facility], [facility] Fluticasone Propionate 50 MCG/ACT Nasal Suspension Provider: Diagnosis: Last Documented On 8:35AM By Deborah Lowery ; [facility], [facility] Past Medications on file Clindamycin HCl 300 MG Oral Capsule 01/07/2025 - 01/09/2025 Provider: Holden Steiner Diagnosis: take 2 pills, 3 three times a day Last Documented On 5 11:06AM By Quentin Burk ; [facility], [facility] Clindamycin HCl 300 MG Oral Capsule 12/28/2024 - 01/08/2025 Provider: Holden Steiner Diagnosis: three times a day Last Documented On 5 10:10AM By Quentin Burk ; [facility], [facility] Percocet 5-325 MG Oral Tablet 12/19/2024 - 01/03/2025 Provider: Issa Rodriguez MD Diagnosis: 1 po q 4h prn pain Last Documented On 5 8:40AM By Issa Rodriguez ; [facility], [facility] Losartan Potassium 100 MG Oral Tablet 12/05/2024 - Provider: Diagnosis: Last Documented On 5 3:50PM By Marifer Nuñez ; [facility], [facility] DULoxetine HCl 60 MG Oral Ca psule Delayed Release Particles 12/05/2024 - 03/05/2025 Provider: Diagnosis: Last Documented On 5 3:49PM By Marifer Nuñez ; [facility], [facility] Montelukast Sodium 10 MG Oral Tablet 12/05/2024 - 02/15 Provider: Diagnosis: Last Documented On 5 3:49PM By Marifer Nuñez ; [facility] Medications Administered Includes: Administered Medications from this encounter No Administered Medications Recorded Vital Signs Includes: Vital Signs from this encounter Vital Name 06/06/2025 09:02A Height (in) 69 Weight (lb) 252 Body Mass Index 37.2 Body Surface Area 2.3 Pain Level 5 Last Documented: On 06/06/2025 9:02AM ; [facility], [facility] Results Includes: Results discussed during [...] Documented On 5 8:58AM ; [facility], [facility] No recent change in diet 04/22/2022 Last Documented On 5 8:58AM ; [facility], [facility] Not a current smoker. 04/22/2022 Last Documented On 5 8:58AM ; [facility] Non-smoker 03/12/2021 Last Documented On 5 8:58AM ; [facility] No tobacco use 04/05/2019 Last Documented On 5 8:58AM ; [facility], [facility] Smoking status : Never smoker 04/05/2019 Last Documented On 5 8:58AM ; [facility], [facility] Caffeine use 04/05/2019 Last Documented On 5 8:58AM ; [facility] No recent change in diet 04/05/2019 Last Documented On 5 8:58AM ; [facility] Not a current smoker 04/05/2019 Last Documented On 5 8:58AM ; [facility] Not exercising regularly 04/05/2019 Last Documented On 5 8:58AM ; [facility], [facility] Not using alcohol 04/05/2019 Last Documented On 5 8:58AM ; [facility] Not using drugs 04/05/2019 Last Documented On 5 8:58AM ; [facility] Sex - Male 07/05/2025 Last Documented On 5 2:08PM ; [facility] Procedures and Surgical History Includes: Procedures from this encounter Procedures Code Diagnosis Performing Provider Service Location Service Date X-RAY EXAM OF TRUNK SPINE [address] Encntr for adjust and mgmt of implanted nervous sys device, Presence of neurostimulator Issa Rodriguez MD [facility] 06/06/2025 Last Documented On 5 2:21PM ; [facility] Surgical History Last Updated History of hernia repair 04/05/2019 Last Documented On 5 8:58AM ; [facility] Medical History Includes: Medical History addressed during this encounter Description Last Updated No recent immunization for flu Last Documented On 5 8:58AM ; [facility] No recent immunization for pneumococcal pneumonia 03/12/2021 Last Documented On 5 8:58AM ; [facility] cataracs 04/05/2019 Last Documented On 5 8:58AM ; [facility] Arthritic joint problems 04/05/2019 Last Documented On 5 8:58AM ; [facility] Intermittent hypertension 04/05/2019 Last Documented On 5 8:58AM ; [facility] Family History Includes: Family History addressed during this encounter Description Last Updated Family history of cancer 04/05/2019 Last Documented On 5 8:58AM ; [facility] Family history of hypertension 9 Last Documented On 5 8:58AM ; [facility] Review of Systems Includes: Review [...] Anxiety Last Documented On 5 8:58AM ; [facility] Physical Exam Includes: Physical Exam from this encounter Allergies Includes: Active Allergies No Known Allergies Care Md Ophthalmologist Name (Identifier) Role/Relation Location/Telecom Last Documented By Domingo Billingsley MD ([id number]) Assigned practitioner (occupation) tel:[phone] Last Documented On 07/05/2025 2:08PM ; [facility] Olga Cohen Vinayak BELCHER ([id number]) [address] [place] [address], [id number] tel:[phone] Last Documented On 04/05/2019 9:06AM ; [facility] Encounters Encounter Provider Location (Healthcare Service Location) Date Check-In Time Check-Out Time Diagnosis Encounter Disposition Follow Up Issa Rodriguez MD [facility] 2024 8:53AM 10:11AM Overweight Payer Includes: Active Insurance Policies Plan Name (Payer ID) Coverage Type Member ID Group # Subscriber (ID) Relationship Effective Dates 1 - Medicare Part B [facility] ([id number]) [id number] Stephane Lozano Anam Self (Checked on 06/03/2025) Last Documented On 9 7:57AM ; [facility] 2 - [employer] Medicare Supplemen t Insurance [id number] Stephane Mendieta Self 09/15/2017 - Unknown Last Documented On 9 8:40AM ; [facility], [facility] Clinical Notes Includes: Clinical Notes from this encounter * Progress note Date Encounter Last Documented by 06/06/2025 Follow Up Last documented on 06/11/2025; 1:20 PM, Issa Rodriguez MD; [facility], [facility] Active Problems & Conditions - [...] Care Team - Olga Licea APRN - ELEVATOR EXAMINER AND ADJUSTER Health Reminders - Assess BMI satisfied 06/06/2025. - Assess Tobacco Use satisfied 04/05/2019. - Follow Up Plan BMI Management satisfied 06/06/2025.
--- OUTSIDE RECORDS SUMMARY | 2025-07-16 10:36 | XMS_ITS | Referral Summary ---
Author Organization [employer] ([place], [place], [place], [place], [place]) Address [address] [place] [address] Care Team Providers Care Emergency Medical Technician Name Role Phone Maya Torres APRN Primary Care Provider [phone] Allergies No known active allergies Medications traZODone [...] Date Jan rded Speak language other than Amharic at home Not on file 08/04/2023 Want [...] on file Insurance MEDICARE PART [facility] Care Teams Emergency Medical Technician Relationship Specialty Start Date End Date Maya Torres, LOSS PREVENTION ANALYST [address] [phone] PCP - General Family Medicine 08/27/22
--- OUTSIDE RECORDS SUMMARY | 2025-07-16 10:36 | XMS_ITS | Clinical Summary ---
Author Organization [facility] Address [address] [place] [address] Phone Care Team Providers Care Pipefitter Welder Name Role Phone Jose Cruz COLEMAN, Domingo Jett Unavailable + [phone] Olga Licea APRN Unavailable [phone] Reason for Visit and Chief Complaint The Chief Complaint is: back pain Problems Includes: Problems addressed during this encounter and other active Problems All Visits Onset Date Date of Diagnosis Resolved Date Provider Condition Status Soft Tissue Pain Hand 12/05/2024 12/05/2024 Flako Pulido PA-C Active Last Documented On 5 1:43AM ; [facility], [facility] History of Lower Back Pain M idline Right Side 04/12/2022 04/12/2022 Holden Modi PA-C Active Last Documented On 5 1:41AM ; [facility], [facility] Joint Pain Left Thumb 03/12/2021 03/12/2021 Charles Hernandez MD Active Last Documented On 5 1:40AM ; [facility], [facility] Joint Pain in Both Knees 04/05/2019 04/05/2019 Arlet Billingsley MD Active Last Documented On 5 1:39AM ; [facility], [facility] Plan of Treatment Patient screened for future fall risk: documentation of any fall with injury in past year. - Last Documented On 01/28/2025 11:48AM ; [facility], [facility] Patient was seen by myself Holden Modi PA-C. Patient will follow up 1 week we are going to keep him on clindamycin we will take the geronimo out of all the incisions today and recheck this in a week - Last Documented On 01/28/2025 11:48AM ; [facility] Pending Tests Order Diagnosis Results Due Ordering P xena Radiology - MRI MRI Lumbar Spine 04/26/22 Chas Modi PA-C Last Documented On 2 1:06PM ; [facility], 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 - Last Documented On 01/28/2025 11:48AM ; [facility] Instructions Includes: Instructions from this encounter Instructions to patient Lose weight Last Documented On 5 10:49AM ; [facility] Medical Equipment - Implanted Devices Includes: Current Devices No Medical Equipment Recorded Medications Includes: Medications discussed during this encounter and other current Medications New / Renewed during this visit Holden Modi PA-C on 01/07/2025 Clindamycin HCl 300 MG Oral Capsule Provider: Holden Modi PA-C 2 day supply: 21 capsule, 0 refills Diagnosis: take 2 pills, 3 three times a day Pharmacy: [facility] [id number] , [facility], [id number] - Last Documented On 5 11:06AM By Quentin Burk ; [facility] Current Medications (continue as prescribed) Percocet 5-325 MG Oral Tablet 07/03/2025 - 07/18/2025 Provider: Issa Rodriguez MD Diagnosis: 1 po q 4h prn pain Last Documented On 5 8:39AM By Issa Rodriguez ; [facility] Clindamycin HCl 300 MG Oral Capsule 01/07/2025 Provi taihra: Holden Modi PA-C Diagnosis: Last Documented On 5 10:36AM By Quentin Burk ; [facility], [facility] oxyCODONE-Acetaminophen 5-325 MG Oral Tablet Provider: Issa Rodriguez MD Diagnosis: Last Documented On 5 9:50AM By Quentin Burk ; [facility], [facility] Pantoprazole Sodium 40 MG Or al Tablet Delayed Release 12/09/2024 Provider: Maya Torres BUHR DRESSER Diagnosis: Last Documented On 5 9:50AM By Quentin Burk ; [facility], [facility] LORazepam 1 MG Oral Tablet 12/04/2024 Provider: Nancy Torres BUHR DRESSER Diagnosis: Last Documented On 5 9:50AM By Quentin Burk ; [facility], [facility] Doxycycline Hyclate 100 MG Oral Capsule 12/04/2024 P padminider: Diagnosis: Last Documented On 5 9:50AM By Quentin Burk ; [facility], [facility] sulfaSALAzine 500 MG Oral Tablet 11/27/2024 Provider : Maya Torres BUHR DRESSER Diagnosis: Last Documented On 5 9:50AM By Quentin Burk ; [facility], [facility] Albuterol Sulfate HFA 108 (9 0 Base) MCG/ACT Inhalation Aerosol Solution 11/07/2024 Provider: Maya anderson BUHR DRESSER Diagnosis: Last Documented On 5 9:50AM By Quentin Burk ; [facility], [facility] Finasteride 5 MG Oral Tablet 11/03/2024 Provider: Maya Torres BUHR DRESSER Diagnosis: Last Documented On 5 9:50AM By Quentin Burk ; [facility], [facility] Tamsulosin HCl 0.4 MG Oral Capsule 11/03/2024 Provid er: Maya Torres BUHR DRESSER Diagnosis: Last Documented On 5 3:49PM By Marifer Nuñez ; [facility], [facility] Amoxicillin 875 MG Oral Tablet 09/11/2024 Provider: Diagnosis: Last Documented On 5 9:50AM By Quentin Burk ; [facility], [facility] predniSONE 10 MG Oral Tablet 03/11/2021 Provider: Jarek Muñiz DO Diagnosis: Last Documented On 8:34AM By Deborah Lowery ; [facility], [facility] Amoxicillin 500 MG Oral Capsule 03/11/2021 Provider: Jarek Muñiz DO Diagnosis: Last Documented On 8:34AM By Deborah Lowery ; [facility] Cephalexin 500 MG Oral Capsule 03/10/2021 Provider: Diagnosis: Last Documented On 8:34AM By Deborah Lowery ; [facility], [facility] HYDROcodone-Acetaminophen 5-325 MG Oral Tablet 021 Provider: Diagnosis: Last Documented On 8:34AM By Deborah Lowery ; [facility], [facility] Gabapentin 300 MG Oral Capsule 03/06/2021 Provider: Diagnosis: Last Documented On 8:34AM By Deborah Lowery ; [facility], [facility] LORazepam 1 MG Oral Tablet 03/06/2021 Provider: Diagnosis: Last Documented On 8:34AM By Deborah Lowery ; [facility], [facility] Esomeprazole Magnesium 40 MG Oral Capsule Delayed Rele ase 03/04/2021 Provider: Diagnosis: Last Documented On 8:34AM By Deborah Lowery ; [facility], [facility] Esomeprazole Magnesium 40 MG Oral Capsule Delayed Rele ase 03/04/2021 Provider: Diagnosis: Last Documented On 8:34AM By Deborah Lowery ; [facility], [facility] Fluticasone Propionate 50 MCG/ACT Nasal Suspension Provider: Diagnosis: Last Documented On 8:35AM By Deborah Lowery ; [facility], [facility] Past Medications on file Clindamycin HCl 300 MG Oral Capsule 12/28/2024 - 01/08/2025 Provider: Holden Steiner Diagnosis: three times a day Last Documented On 5 10:10AM By Quentin Burk ; [facility], [facility] Percocet 5-325 MG Oral Tablet 12/19/2024 - 01/03/2025 Provider: Issa Rodriguez MD Diagnosis: 1 po q 4h prn pain Last Documented On 5 8:40AM By Issa Rodriguez ; [facility], [facility] Losartan Potassium 100 MG Oral Tablet 12/05/2024 - Provider: Diagnosis: Last Documented On 3:50PM By Marifer Nuñez ; [facility] DULoxetine HCl 60 MG Oral Ca psule Delayed Release Particles 12/05/2024 - 03/05/2025 Provider: Diagnosis: Last Documented On 3:49PM By Marifer Nuñez ; [facility] Montelukast Sodium 10 MG Oral Tablet 12/05/2024 - 02/15 Provider: Diagnosis: Last Documented On 3:49PM By Marifer uNñez ; [facility], [facility] Medications Administered Includes: Administered Medications from this encounter No Administered Medications Recorded Vital Signs Includes: Vital Signs from this encounter Vital Name 01/07/2025 11:15A 01/07/2025 10: 50A Temp-Oral (F) 97.5 Height (in) 69 Weight (lb) 250 Body Mass Index 36.9 Body Surface Area 2.3 Pain Level 2 Last Documented: On 01/07/2025 11:15A M ; [facility] On 01/07/2025 10:50AM ; [facility] Results Includes: Results discussed during [...] Documented On 5 10:49AM ; [facility] No recent change in diet 04/22/2022 Last Documented On 5 10:49AM ; [facility] Not a current smoker. 04/22/2022 Last Documented On 5 10:49AM ; [facility] Non-smoker 03/12/2021 Last Documented On 5 10:49AM ; [facility] No tobacco use 04/05/2019 Last Documented On 5 10:49AM ; [facility], [facility] Smoking status : Never smoker 04/05/2019 Last Documented On 5 10:49AM ; [facility] Caffeine use 04/05/2019 Last Documented On 5 10:49AM ; [facility], [facility] No recent change in diet 04/05/2019 Last Documented On 5 10:49AM ; [facility] Not a current smoker 04/05/2019 Last Documented On 5 10:49AM ; [facility] Not exercising regularly 04/05/2019 Last Documented On 5 10:49AM ; [facility] Not using alcohol 04/05/2019 Last Documented On 5 10:49AM ; [facility], [facility] Not using drugs 04/05/2019 Last Documented On 5 10:49AM ; [facility], [facility] Sex - Male 07/05/2025 Last Documented On 5 2:08PM ; [facility], [facility] Procedures and Surgical History Surgical History Last Updated History of hernia repair 04/05/2019 Last Documented On 5 10:49AM ; [facility], [facility] Medical History Includes: Medical History addressed during this encounter Description Last Updated No recent immunization for flu Last Documented On 5 10:49AM ; [facility], [facility] No recent immunization for pneumococcal pneumonia 03/12/2021 Last Documented On 5 10:49AM ; [facility], [facility] cataracs 04/05/2019 Last Documented On 5 10:49AM ; [facility], [facility] Arthritic joint problems 04/05/2019 Last Documented On 5 10:49AM ; [facility], [facility] Intermittent hypertension 04/05/2019 Last Documented On 5 10:49AM ; [facility], [facility] Family History Includes: Family History addressed during this encounter Description Last Updated Family history of cancer 04/05/2019 Last Documented On 5 10:49AM ; [facility] Family history of hypertension 9 Last Documented On 10:49AM ; [facility] Review of Systems Includes: Review [...] Anxiety Last Documented On 5 10:49AM ; [facility] Physical Exam Includes: Physical Exam from this encounter Allergies Includes: Active Allergies No Known Allergies Care Pipefitter Welder Name (Identifier) Role/Relation Location/Telecom Last Documented By Domingo Billingsley MD ([id number]) Assigned practitioner (occupation) tel: Last Documented On 07/05/2025 2:08PM ; [facility] Olga Licea APRN ([id number]) [address] [place] [address], [id number] tel: Last Documented On 04/05/2019 9:06AM ; [facility] Encounters Encounter Provider Location (Healthcare Service Location) Date Check-In Time Check-Out Time Diagnosis Encounter Disposition Post Op Holden Modi PA-C [facility] 2024 10:33AM 11:15AM Overweight Payer Includes: Active Insurance Policies Plan Name (Payer ID) Coverage Type Member ID Group # Subscriber (ID) Relationship Effective Dates 1 - Medicare Part B [facility] ([id number]) [id number] Stephane Mendieta Self (Checked on 06/03/2025) Last Documented On 9 7:57AM ; [facility], [facility] 2 - [employer] [facility] [id number] Stephane Mendieta Self 09/15/2017 - Unknown Last Documented On 9 8:40AM ; [facility], [facility] Clinical Notes Includes: Clinical Notes from this encounter * Progress note Date Encounter Last Documented by 01/07/2025 Post Op Last documented on 01/28/2025; 11:48 AM, Holden Modi PA-C; [facility], [facility] Active Problems & Conditions - [...] Care Team - Olga Licea APRN - IT ADMIN
--- OUTSIDE RECORDS SUMMARY | 2025-07-16 10:36 | XMS_ITS | Clinical Summary ---
Author Organization Healthcare Address [address] [place] [address] Care Team Providers Care Hospital Nurse Liaison Name Role Phone Unavailable Primary Care Provider [...]
--- OUTSIDE RECORDS SUMMARY | 2025-07-16 10:36 | XMS_ITS | Encounter Summary ---
Author Organization [employer] ([place], [place], [place], [place], [place]) Address [address] [place] [address] Care Team Providers Care Military Administrative Technician Name Role Phone Maya Torres Reji BELCHER Primary Care Provider [phone] Encounter Details Date Type Department Care Team (Late st Contact Info) Description 10/27/2020 Transcribed Document [facility] Family Medicine [facility] [place] [address] ProviderJean MD [address] [place] [address] Social History Tobacco Use Types [...] 10/27/2020 12:55:00 EDT fentaNYL,50mcg IV Push,Left Antecubital Doucette Pain Assessment Pain Scale Used : 0-10 [...] on filedocumented in this encounter Care Teams Military Administrative Technician Relationship Specialty Start Date End Date Maya Torres, MANUFACTURING PROJECT ENGINEER [address] [address] PCP - General Family Medicine 08/27/22 documented as of this encounter
--- OUTSIDE RECORDS SUMMARY | 2025-07-16 10:36 | XMS_ITS | Encounter Summary ---
Author Organization [employer] ([place], [place], [place], [place], [place]) Address [address] [place] [address] Care Team Providers Care Wildlife Veterinarian Name Role Phone Maya Torres Reji BELCHER Primary Care Provider [phone] Encounter Details Date Type Department Care Team (Late st Contact Info) Description 10/27/2020 Transcribed Document [facility] [place] [address] [place] [address] ProviderJean MD [address] [place] [address] Social History Tobacco Use Types [...] Sawant MD - 10/27/2020 6:36 PM CDT [facility] [place], [place] [id number] ISATU MENDIETA :1950 Visit Time:10/27/2020 Your Visit [...] to 3 days Where: [place] [place] [address] [facility] (1) Allergies No Known Medication [...] 24HR 55 mcg/ inh nasal spray) 1 [place](s) Nasal Two Times A Day The home [...] and 14.9 ) ANC #: 12 K/uL [place] Percent Man: 2 % -- Normal range [...] ) Urine Bilirubin Dipstick: Negative Urine Specific [place]: 1.006 -- Normal range between ( 1.005 [...] or lying down. General instructions ??? Take kfoh-lfr-tvxwapy and prescription medicines only as told by [...] compression, and elevation. You may be given aiqn-pje-lokoxue medicines for pain. ??? Contact a health [...] provider. Document Revised: 02/22/2019 Document Reviewed: 02/22/2019 [employer] Patient Education ?? 2020 [employer]. Emergency Awareness and Preventative Care STROKE is [...] Assistance with quitting is available by contacting 5-736-SIXA-NOW. This is a free resource providing counseling, [...] was given the opportunity to ask questions. Patient/Career Consultant Name: Patient/Career Consultant Signature: Relationship to Patient: Clinician/Hospital Career Consultant Signature: Please Provide a Telephone Number Where You Can Be Reached: Is it Permissible To Leave a Message? Date: documented in this encounter Plan of Treatment Not on file documented as of this encounter Visit Diagnoses Not on filedocumented in this encounter Care Teams Wildlife Veterinarian Relationship Specialty Start Date End Date Maya Torres, SIMI [address] [phone] PCP - General Family Medicine 08/27/22 documented as of this encounter
--- OUTSIDE RECORDS SUMMARY | 2025-07-16 10:36 | XMS_ITS | Encounter Summary ---
Author Organization [employer] ([place], [place], [place], [place], [place]) Address [address] [place] [address] Care Team Providers Care Cad Draftsman Name Role Phone Maya Torres Reji BELCHER Primary Care Provider [phone] Encounter Details Date Type Department Care Team (Late st Contact Info) Description 10/27/2020 Transcribed Document [facility] [place] [facility] Family Medicine [facility] [place] [address] ProviderJean MD [address] [place], [place] [id number] Social History Tobacco Use Types Packs/Day Years [...] on filedocumented in this encounter Care Teams Cad Draftsman Relationship Specialty Start Date End Date Maya Torres, TOOL ROOM MACHINIST [address] [phone] PCP - General Family Medicine 08/27/22 documented as of this encounter
--- OUTSIDE RECORDS SUMMARY | 2025-07-16 10:36 | XMS_ITS | Clinical Summary ---
Author Organization [facility] Address [address] [place] [address] Phone Care Team Providers Care Welt Beater Name Role Phone Jose Cruz COLEMAN, Domingo Jett Unavailable [phone] Olga Licea APRN Unavailable [phone] Reason for Visit and Chief Complaint [Patient Encounter] Problems Includes: Problems addressed during this encounter and other active Problems All Visits Onset Date Date of Diagnosis Resolved Date Provider Condition Status Soft Tissue Pain Hand 12/05/2024 12/05/2024 Flako Pulido PA-C Active Last Documented On 5 1:43AM ; [facility] History of Lower Back Pain M idline Right Side 04/12/2022 04/12/2022 Holden Modi PA-C Active Last Documented On 5 1:41AM ; [facility], [facility] Joint Pain Left Thumb 03/12/2021 03/12/2021 Charles Hernandez MD Active Last Documented On 5 1:40AM ; [facility], [facility] Joint Pain in Both Knees 04/05/2019 04/05/2019 Arlet Billingsley MD Active Last Documented On 5 1:39AM ; [facility] Plan of Treatment Future Appointments Date Time Location Provi tahira Post Op 07/19/2025 11:00AM [facility] [place] Holden Modi PA-C Last Documented On 5 10:29AM ; [facility] Assessments Includes: Assessments from [...] Documented On 8:39AM By Issa Rodriguez ; [facility] Clindamycin HCl 300 MG Oral Capsule 01/07/2025 Provi tahira: Holden Modi PA-C Diagnosis: Last Documented On 5 10:36AM By [facility] ; [facility] oxyCODONE-Acetaminophen 5-325 MG Oral Tablet Provider: Issa Rodriguez MD Diagnosis: Last Documented On 5 9:50AM By Quentin Gardunoillin ; [facility] Pantoprazole Sodium 40 MG Or al Tablet Delayed Release 12/09/2024 Provider: Maya Torres CONTROLLER MECHANIC Diagnosis: Last Documented On 5 9:50AM By Quentin Burk ; [facility] LORazepam 1 MG Oral Tablet 12/04/2024 Provider: Nancy Torres CONTROLLER MECHANIC Diagnosis: Last Documented On 5 9:50AM By Quentin Burk ; [facility] Doxycycline Hyclate 100 MG Oral Capsule 12/04/2024 P rovider: Diagnosis: Last Documented On 9:50AM By Quentin Burk ; [facility] sulfaSALAzine 500 MG Oral Tablet 11/27/2024 Provider : Maya Torres CONTROLLER MECHANIC Diagnosis: Last Documented On 5 9:50AM By Quentin Burk ; [facility] Albuterol Sulfate HFA 108 (9 0 Base) MCG/ACT Inhalation Aerosol Solution 11/07/2024 Provider: Maya anderson CONTROLLER MECHANIC Diagnosis: Last Documented On 5 9:50AM By Quentin Burk ; [facility] Finasteride 5 MG Oral Tablet 11/03/2024 Provider: Maya Torres CONTROLLER MECHANIC Diagnosis: Last Documented On 5 9:50AM By Quentin Burk ; [facility] Tamsulosin HCl 0.4 MG Oral Capsule 11/03/2024 Provid er: Maya Torres APRN Diagnosis: Last Documented On 5 3:49PM By Marifer Nuñez ; [facility] Amoxicillin 875 MG Oral Tablet 09/11/2024 Provider: Diagnosis: Last Documented On 5 9:50AM By Quentin Burk ; [facility] predniSONE 10 MG Oral Tablet 03/11/2021 Provider: Jarek Muñiz DO Diagnosis: Last Documented On 8:34AM By Deborah Lowery ; [facility] Amoxicillin 500 MG Oral Capsule 03/11/2021 Provider: Jarek Muñiz DO Diagnosis: Last Documented On 8:34AM By Deborah Lowery ; [facility] Cephalexin 500 MG Oral Capsule 03/10/2021 Provider: Diagnosis: Last Documented On 8:34AM By Deborah Lowery ; [facility] HYDROcodone-Acetaminophen 5-325 MG Oral Tablet 021 Provider: Diagnosis: Last Documented On 8:34AM By Deborah Lowery ; [facility] Gabapentin 300 MG Oral Capsule 03/06/2021 Provider: Diagnosis: Last Documented On 8:34AM By Deborah Lowery ; [facility] LORazepam 1 MG Oral Tablet 03/06/2021 Provider: Diagnosis: Last Documented On 8:34AM By Deborah Lowery ; [facility] Esomeprazole Magnesium 40 MG Oral Capsule Delayed Rele ase 03/04/2021 Provider: Diagnosis: Last Documented On 8:34AM By Deborah Lowery ; [facility] Esomeprazole Magnesium 40 MG Oral Capsule Delayed Rele ase 03/04/2021 Provider: Diagnosis: Last Documented On 8:34AM By Deborah Lowery ; [facility] Fluticasone Propionate 50 MCG/ACT Nasal Suspension Provider: Diagnosis: Last Documented On 8:35AM By Deborah Lowery ; [facility] Medications Administered Includes: Administered Medications from this encounter No Administered Medications Recorded Results Includes: Results discussed during this encounter No Results Recorded For Specified Dates History of Present Illness Includes: History of Present Illness from this encounter No History of Present Illness Recorded Social History Description Last Updated Sex - Male 07/05/2025 Last Documented On 2:08PM ; [facility] Smoking Status Unknown Procedures and Surgical History Includes: Procedures from this encounter Procedures Code Diagnosis Performing Provider Service Location Service Date Revision or removal of [place] 88651 I/I react d/t implnt elec nstim, generator, init Issa Rodriguez MD [facility] 07/03/2025 Last Documented On 1:56PM ; [facility] Revision or removal of implanted spinal neurostimulator puls (Patient Access Coordinator surgeon) 71893 I/I react d/t implnt elec nstim, generator, init Bekah Cagle PA-C [facility] 07/03/2025 Last Documented On 1:56PM ; [facility] Medical History Includes: Medical [...] Includes: Active Allergies No Known Allergies Care Welt Beater Name (Identifier) Role/Relation Location/Telecom Last Documented By Domingo Billingsley MD ([id number]) Assigned practitioner (occupation) tel:[phone] Last Documented On 07/05/2025 2:08PM ; [facility] Olga Licea APRN ([id number]) [address] [place] [address], [facility], [address] tel:[phone] Last Documented On 04/05/2019 9:06AM ; [facility] Encounters Encounter Provider Location (Healthcare Service Location) Date Check-In Time Check-Out Time Diagnosis Encounter Disposition [Patient Encounter] Issa Rodriguez MD [facility] 2024 1:55PM 11:59PM Payer Includes: Active Insurance Policies Plan Name (Payer ID) Coverage Type Member ID Group # Subscriber (ID) Relationship Effective Dates 1 - Medicare Part B [facility] ([id number]) [id number] Stephane Stover (Checked on 06/03/2025) Last Documented On 9 7:57AM ; [facility] 2 - [employer] Medicare Supplemen t Insurance [id number] Stephane Stover 09/15/2017 - Unknown Last Documented On 9 8:40AM ; [facility]
--- OUTSIDE RECORDS SUMMARY | 2025-07-16 10:36 | XMS_ITS | Clinical Summary ---
Author Organization [employer] ([place], [place], [place], [place], [place]) Address [address] [place] [address] Care Team Providers Care Relief Salesperson Name Role Phone Maya Torres APRN Primary Care Provider [phone]- [phone] Allergies No known active allergies Medications traZODone [...] Date Jan rded Speak language other than Slovak at home Not on file 08/04/2023 Want [...] 04/24/2019, 2017 Insurance MEDICARE PART A B [facility] [place] [address] Care Teams Relief Salesperson Relationship Specialty Start Date End Date Maya Torres, STOCK BROKER SUPERVISOR [address] [address] PCP - General Family Medicine 08/27/22
--- OUTSIDE RECORDS SUMMARY | 2025-07-16 10:37 | XMS_ITS | Patient Health Record ---
Author Organization [facility] Address [address] [facility] [address] [place] [address] Care Team Providers Care Occupational Health Manager Name Role Phone Jerome Morrissey II Unavailable Michael COLEMAN -Issa Barry MD Unavailable [phone] Allergies No Known Allergies Reason For Referral [...] Status Risk Notes Problem Chronic pain syndrome (808729788) Chronic pain syndrome (G89.4) Active confirmed Problem Complex regional pain syndrome of lower limb (disorder) (891330939) Complex regional pain syndrome I of unspecified lower limb (G90.529) Active confirmed Problem Cervical spondylosis without myelopathy (564025698) Other spondylosis with radiculopathy, cervical region (M47.22) Active confirmed Problem Cervical spondylosis without myelopathy (520242315) Spondylosis without myelopathy or radiculopathy, cervical region (M47.812) Active confirmed Problem Lumbosacral spondylosis without myelopathy (75305067) Spondylosis without myelopathy or radiculopathy, lumbar region (M47.816) Active confirmed Problem Cervicalgia (18443457) Cervicalgia (M54.2) Active confirmed Problem Post-laminectom y syndrome (97261094) Postlaminectomy syndrome, not elsewhere classified (M96.1) Active confirmed Problem Long-term current use of drug therapy (746861078) Other superintendent terminal (current) drug therapy (Z79.899) Active confirmed Problem Lumbar spondylosis (603044601) lumbar spondylosis (M47.816) Active confirmed Vital Signs Heart Rate 80 /min 10/19/2024 Blood pressure diastolic 75 mm Hg 10/19/2024 Height 69 in 10/19/2024 Blood pressure systolic 158 mm Hg 10/19/2024 Weight 250 lbs 10/19/2024 BMI 36.91 kg/m2 10/19/2024 Encounters Encounter Location Date Provider Diagnosis [facility] [address] [facility] [address] [place] [address] 10/19/2024 Jerome Morrissey Other assisted (current) drug [...] once again for the long-term. 10/19/2024 Other superintendent terminal (current) drug therapy (ICD-10 - Z79.899) 04/02/2024 1. Discontinue Pinckney 5/325mg QD PRN 2. FU PRn Mr. [...] Coverage End Date [place] [address] [place] [address] [id number] Stephane Mendieta Self - patient is the insured 8 Cign[employer] Medicare Supplement [address] [place] [phone] [id number] Stephane Mendieta Self - patient is the insured 8 Medical (General) History Medical History History ICD Code anxiety / Managed by PCP Surgical History Surgery Date(Month/Year) Back surgery / Dr. Rodriguez 09/2019 right knee replacement
--- OUTSIDE RECORDS SUMMARY | 2025-07-16 10:37 | XMS_ITS | Encounter Summary ---
Author Organization [employer] ([place], [place], [place], [place], [place]) Address [address] [place] [address] Care Team Providers Care Supervisor Cloth Winding Name Role Phone Maya Torres Reji BELCHER Primary Care Provider [phone]- [phone] Encounter Details Date Type Department Care Team (Late st Contact Info) Description 10/18/2020 Transcribed Document [facility] Family Medicine [facility] [place] [address] ProviderJean MD [address] [place] [address] Social History Tobacco Use Types Packs/Day Years [...] filedocumented in this encounter Care Teams Supervisor Cloth Winding Relationship Specialty Start Date End Date Maya Torres, EXPLOITATION ANALYST [address] [address] PCP - General Family Medicine 08/27/22 documented as of this encounter
--- OUTSIDE RECORDS SUMMARY | 2025-07-16 10:37 | XMS_ITS | Clinical Summary ---
Author Organization [facility] Address [address] [place] [address] Care Team Providers Care Supervisor Logging Name Role Phone Maya Torres Primary Care Provider + [phone] Allergies No known active allergies Medications DULoxetine [...] Completed 10/27/2020 Medical Devices Implanted Type Area Concrete Batch Plant Operator Device Identifier Shelf Expiration Date Model / Serial / Lot Ld Stim Precsn Trial Lnr 8contct St/Tp50 - [id number] - [id number] Implanted:Qty : 1 on 10/05/2022 by Jerome Morrissey MD at [facility] Implant N/A: Spine Thoracic [employer] 08/30/2024 [id number] / [id number] / Ld Stim Precsn Trial Lnr 8contct St/Tp50 - [id number] - [id number] Implanted:Qty : 1 on 10/05/2022 by Jerome Morrissey MD at [facility] Implant N/A: Spine Thoracic [employer] 08/26/2024 [id number] / [id number] / Anchr Ld Scs Clikx Ea/St/2 - [id number] Implanted:Qty : 1 on 10/05/2022 by Jerome Morrissey MD at [facility] Implant N/A: Spine Thoracic [employer] 01/06/2024 [id number] / / [id number] Kt Ipg Wavewriter Alpha 16/Contct - [id number] - [id number] Implanted:Qty : 1 on 10/05/2022 by Jerome Morrissey MD at [facility] Implant N/A: Spine Thoracic [employer] [id number] 09/13/2024 [id number] / [id number] / [id number] Insurance MEDICARE A & B Member Subscriber Plan / Payer (Ef fective 2017-Present) Name:Stephane Mendieta Member ID:[id number] Relation to Subscriber:Self Name:Stephane Mendieta Subscriber ID:[id number] Payer ID:[id number] Group ID:Not on file Type:Not on file Address: [facility] [id number] [place] [id number] [facility] [employer] Care Teams Supervisor Logging Relationship Specialty Start Date End Date Maya Torres Kaylyn [place] [id number] PCP - General Nurse Practitioner 09/28/22
--- OUTSIDE RECORDS SUMMARY | 2025-07-16 10:37 | XMS_ITS | Encounter Summary ---
Author Organization [employer] ([place], [place], [place], [place], [place]) Address [address] [place] [address] Care Team Providers Care Weigher Alloy Name Role Phone Maya Torres Reji BELCHER Primary Care Provider +1- [phone] Encounter Details Date Type Department Care Team (Late st Contact Info) Description 06/16/2018 Transcribed Document [facility] [place] [facility] [address] ProviderJean MD [address] [place], [place] [address] Social History Tobacco Use Types Packs/Day Years Used Date Smoking Tobacco: Never Assessed Sex and Gender Information Value Date Recorded Sex Assigned at Not on file Legal Sex Male 5:19 PM CDT Gender Identity Not on file Sexual Orientation Not on file documented as of this encounter Miscellaneous Notes * Cerner Conversion Note - Jean Sawant MD - 06/16/2018 8:43 AM SALVAGE WINDER AND INSPECTOR Patient: ISATU MENDIETA Age: 67 Years Sex: [...] 84 CXR- NAD Electronically signed by Ileana, [facility] Conversion Veneer Glue Jointer Feedback Cerner at 11/04/2022 3:24 PM CDT documented in this encounter Plan of Treatment Not on file documented as of this encounter Visit Diagnoses Not on filedocumented in this encounter Care Teams Weigher Alloy Relationship Specialty Start Date End Date Maya Torres, CANE FLUME WATCHER [address] [address] PCP - General Family Medicine 08/27/22 documented as of this encounter
--- OUTSIDE RECORDS SUMMARY | 2025-07-16 10:37 | XMS_ITS | Encounter Summary ---
Author Organization [employer] ([place], [place], [place], [place], [place]) Address [address] [place] [address] Care Team Providers Care Amphibian Crewmember Name Role Phone Maya Torres Reji BELCHER Primary Care Provider +1- [phone] Encounter Details Date Type Department Care Team (Late st Contact Info) Description 10/18/2020 Transcribed Document [facility] Family Medicine [address] [place] [address] ProviderJean MD [address] [place], [place] [address] Social History Tobacco Use Types Packs/Day Years Used Date Smoking Tobacco: Never Assessed Sex and Gender Information Value Date Recorded Sex Assigned at Not on file Legal Sex Male 5:19 PM CDT Gender Identity Not on file Sexual Orientation Not on file documented as of this encounter Miscellaneous Notes * Cerner Conversion Note - Jean ProviderMD - 10/18/2020 7:05 PM CDT [place] Suicide Severity Rating Scale (C-SSRS) Entered On: 10/18/2020 19:42 EDT Performed On: 10/18/2020 19:41 EDT by Dee Ocampo RN [place] Suicide Severity Rating Scale (C-SSRS) CSSRS Past [...] on filedocumented in this encounter Care Teams Amphibian Crewmember Relationship Specialty Start Date End Date Maya Torres, CONCRETE PLANT LABORER [address] [address] PCP - General Family Medicine 08/27/22 documented as of this encounter
--- OUTSIDE RECORDS SUMMARY | 2025-07-16 10:37 | XMS_ITS | Encounter Summary ---
Author Organization [employer] ([place], [place], [place], [place], [place]) Address [address] [place] [address] Care Team Providers Care Sr Risk Management Consultant Name Role Phone Maya Torres Reji BELCHER Primary Care Provider [phone]- [phone] Encounter Details Date Type Department Care Team (Late st Contact Info) Description 10/18/2020 Transcribed Document [facility] [facility] [place] [facility] [place] [address] ProviderJean MD [address] [place] [address] Social History Tobacco Use Types [...] Sawant MD - 10/18/2020 9:38 PM CDT [facility] [place], [place] [id number] ISATU MENDIETA :1950 Visit Time:10/18/2020 Your Visit [...] to ED if symptoms worsen. Where: [address] [facility] [address] [place] [address] Business (1) Follow Up with JACKIE LEONARD When Within 2 to 3 days Allergies No Known Medication Allergies Immunizations This Visit No Immunizations Found Medications What How Much When Instructions Next Dose codeine-guaifenesin (codeine-guaifenesin 6.3 mg-100 mg/ 5 mL oral liquid) 7.5 Milliliter(s) Oral Every 6 Hours as needed for for cough Pickup at [facility] dextromethorphan-guaifenesin (dextromethorphan-guaifenesin 5 [...] 24HR 55 mcg/ inh nasal spray) 1 [place](s) Nasal Two Times A Day Pharmacy Information [facility]: [address] [place], [place] [id number] [phone] The home medications listed are only as [...] safe for you. General instructions ??? Take jipc-vpm-fpsiuct and prescription medicines only as told by [...] Reviewed: 01/04/2019 Vince Patient Education ?? 2020 [employer]. Emergency Awareness and Preventative Care STROKE is [...] Assistance with quitting is available by contacting 6-253-RUUH-NOW. This is a free resource providing counseling, [...] was given the opportunity to ask questions. Patient/Jira Developer Name: Patient/Jira Developer Signature: Relationship to Patient: Clinician/Hospital Jira Developer Signature: Please Provide a Telephone Number Where You Can Be Reached: Is it Permissible To Leave a Message? Date: Electronically signed by Becky Tejeda Conversion Embossing Press Operator Apprentice Vita at 11/04/2022 3:16 PM CDT documented in this encounter Plan of Treatment Not on file documented as of this encounter Visit Diagnoses Not on filedocumented in this encounter Care Teams Sr Risk Management Consultant Relationship Specialty Start Date End Date Maya Torres, SIMI [address] [phone] PCP - General Family Medicine 08/27/22 documented as of this encounter
--- OUTSIDE RECORDS SUMMARY | 2025-07-16 10:37 | XMS_ITS | Encounter Summary ---
Author Organization [employer] ([place], [place], [place], [place], [place]) Address [address] [place] [address] Care Team Providers Care Four Slide Operator Name Role Phone Maya Torres APRN Primary Care Provider +1- [phone] Encounter Details Date Type Department Care Team (Late st Contact Info) Description 10/18/2020 Transcribed Document [facility] [place] [address] [place] [address] ProviderJean MD [address] [place] [address] Social History Tobacco Use Types [...] 10/18/2020 9:20 PM CDT Electronically signed by [facility] Conversion Cost Accounting Clerk Cerner at 11/04/2022 3:18 PM CDT documented in this encounter Plan of Treatment Not on file documented as of this encounter Visit Diagnoses Not on filedocumented in this encounter Care Teams Four Slide Operator Relationship Specialty Start Date End Date Maya Torres APRN [address] [facility] [address] [place] [address] PCP - General Family Medicine 08/27/22 documented as of this encounter
--- OUTSIDE RECORDS SUMMARY | 2025-07-16 10:37 | XMS_ITS | Encounter Summary ---
Author Organization [employer] ([place], [place], [place], [place], [place]) Address [address] [place] [address] Care Team Providers Care Cord Maker Name Role Phone Maya Torres SMII Primary Care Provider +1- [phone] Encounter Details Date Type Department Care Team (Late st Contact Info) Description 10/18/2020 Transcribed Document [facility] [place] [address] [place] [address] ProviderJean MD [address] [place], [place] [address] Social History Tobacco Use Types Packs/Day Years [...] Communication Barrier : None Primary Language : Singaporean Any Spiritual/Cultural Needs or Requests : No [...] on filedocumented in this encounter Care Teams Cord Maker Relationship Specialty Start Date End Date Maya Torres, LEGAL SECRETARY RECEPTIONIST [address] [address] PCP - General Family Medicine 08/27/22 documented as of this encounter
--- OUTSIDE RECORDS SUMMARY | 2025-07-16 10:37 | XMS_ITS ---
Author Organization [facility] , [facility] Address [address] [place] [address] Phone Care Team Providers Care Coat Checker Name Role Phone Jose Cruz COLEMAN, Domingo Jett Unavailable [phone] Olga Licea APRN Unavailable [phone] Reason for Referral 11/29/2024 Encounter for Follow Up Date Recorded Target Due Date Referral Type Referring Prov ider Reason For Referral 11/29/2024 Issa Rodriguez MD See PCP for BP Last Documented On 5 3:07PM ; [facility], [facility] 11/29/2024 Issa Rodriguez MD referral to physician Last Documented On 5 3:07PM ; [facility] 04/22/2022 Encounter for Follow Up Date Recorded Target Due Date Referral Type Referring Prov ider Reason For Referral 04/22/2022 Issa Rodriguez MD See PCP for BP Last Documented On 2 10:14AM ; [facility], [facility] 05/02/2022 Issa Rodriguez MD referral to physician Last Documented On 2 10:49AM ; [facility], [facility] 04/12/2022 Encounter for Follow Up Date Recorded Target Due Date Referral Type Referring Prov ider Reason For Referral 04/12/2022 Holden Modi PA-C See PC P for BP Last Documented On 2 9:57AM ; [facility], [facility] 04/07/2021 Encounter for Follow Up [...] BP Last Documented On 1 8:43AM ; [facility], [facility] Problems Includes: Active, inactive, and resolved Problems All Visits Onset Date Date of Diagnosis Resolved Date Provider Condition Status Soft Tissue Pain Hand 12/05/2024 12/05/2024 Flako Pulido PA-C Active Last Documented On 5 1:43AM ; [facility] History of Lower Back Pain M idline Right Side 04/12/2022 04/12/2022 Holden Modi PA-C Active Last Documented On 5 1:41AM ; [facility] Joint Pain Left Thumb 03/12/2021 03/12/2021 Charles Hernandez MD Active Last Documented On 5 1:40AM ; [facility], [facility] Joint Pain in Both Knees 04/05/2019 04/05/2019 [facility] [place] zachary Billingsley MD Active Last Documented On 5 1:39AM ; [facility], [facility] Plan of Treatment Findings Encounter Date Patient screened for future fall risk: documentation of any fall with injury in past year Follow Up with Issa Rodriguez MD 06/06/2025 Last Documented On 5 8:58AM ; [facility], [facility] Patient screened for future fall risk: documentation of any fall with injury in past year Post Op with Holden Modi PA-C 01/14/2025 Last Documented On 5 10:36AM ; [facility] Patient screened for future fall risk: documentation of any fall with injury in past year Post Op with Holden Modi PA-C 01/07/2025 Last Documented On 5 10:49AM ; [facility] Patient screened for future fall risk: documentation of any fall with injury in past year Post Op with Holden Modi PA-C 12/28/2024 Last Documented On 5 9:50AM ; [facility] Patient screened for future fall risk: documentation of any fall with injury in past year IN HOUSE REFERRAL with Flako Pulido PA-C 12/05/2024 Last Documented On 5 2:27PM ; [facility] Pending Tests Order Diagnosis Results Due Ordering P rovider Radiology - MRI MRI Lumbar Spine 04/26/22 Chas Modi PA-C Last Documented On 2 1:06PM ; [facility] Future Appointments Date Time Location Provi tahira Post Op 07/19/2025 11:00AM [facility] [place] oMdi PA-C Last Documented On 5 10:29AM ; [facility] Instructions to patient Lose weight Last Documented On 5 8:58AM ; [facility] Lose weight Last Documented On 5 10:36AM ; [facility] Lose weight Last Documented On 5 10:49AM ; [facility] Lose weight Last Documented On 5 9:50AM ; [facility] Lose weight Last Documented On 5 2:27PM ; [facility] Lose weight Last Documented On 5 3:07PM ; [facility] Lose weight Last Documented On 2 10:14AM ; [facility] Lose weight Last Documented On 2 9:57AM ; [facility] Lose weight Last Documented On 1 8:13AM ; [facility] Lose weight Last Documented On 1 8:43AM ; [facility] Instructions for patient SEE PCP FOR BP AND WT Last Documented On 0 11:13AM ; [facility] Instructions for patient Last Documented On 0 3:05PM ; [facility] Instructions for patient Last Documented On 0 1:32PM ; [facility] Instructions for patient to [...] 12/28/2024 Last Documented On 5 9:50AM ; [facility] Overweight IN HOUSE REFERRAL [...] WT Last Documented On 0 11:13AM ; [facility] Instructions for patient Last Documented On 0 3:05PM ; [facility] Instructions for patient Last Documented On 0 1:32PM ; [facility] Instructions for patient to see pcp for bp Last Documented On 0 1:48PM ; [facility], [facility] Instructions for patient to see pcp for bp Last Documented On 9 3:13PM ; [facility] Instructions for patient to see pcp for bp Last Documented On 9 2:58PM ; [facility], [facility] Instructions for patient to see pcp for bp Last Documented On 9 9:14AM ; [facility], [facility] Medical Equipment - Implanted Devices Includes: Current and historical Devices No Medical Equipment Recorded Medications Includes: Current and historical Medications Current Medications (continue as prescribed) Percocet 5-325 MG Oral Tablet 07/03/2025 - 07/18/2025 Provider: Issa Rodriguez MD Diagnosis: 1 po q 4h prn pain Last Documented On 5 8:39AM By Issa Rodriguez ; [facility], [facility] Clindamycin HCl 300 MG Oral Capsule 01/07/2025 Provi tahira: Holden Modi PA-C Diagnosis: Last Documented On 5 10:36AM By Quentin Burk ; [facility], [facility] oxyCODONE-Acetaminophen 5-325 MG Oral Tablet 5 Provider: Issa Rodriguez MD Diagnosis: Last Documented On 5 9:50AM By Quentin Burk ; [facility], [facility] Pantoprazole Sodium 40 MG Or al Tablet Delayed Release 12/09/2024 Provider: Maya Torres [employer] Diagnosis: Last Documented On 5 9:50AM By Quentin Burk ; [facility], [facility] LORazepam 1 MG Oral Tablet 12/04/2024 Provider: Nancy Torres [employer] Diagnosis: Last Documented On 5 9:50AM By Quentin Burk ; [facility], [facility] Doxycycline Hyclate 100 MG Oral Capsule 12/04/2024 Papito mccallum: Diagnosis: Last Documented On 5 9:50AM By Quentin Burk ; [facility] sulfaSALAzine 500 MG Oral Tablet 11/27/2024 Provider : Maya Torres [employer] Diagnosis: Last Documented On 5 9:50AM By Quentin Burk ; [facility] Albuterol Sulfate HFA 108 (9 0 Base) MCG/ACT Inhalation Aerosol Solution 11/07/2024 Provider: Maya anderson [employer] Diagnosis: Last Documented On 5 9:50AM By Quentin Burk ; [facility] Finasteride 5 MG Oral Tablet 11/03/2024 Provider: Maya Torres [employer] Diagnosis: Last Documented On 5 9:50AM By Quentin Burk ; [facility] Tamsulosin HCl 0.4 MG Oral Capsule 11/03/2024 Provid er: Maya Torres [employer] Diagnosis: Last Documented On 5 3:49PM By Marifer Nuñez ; [facility], [facility] Amoxicillin 875 MG Oral Tablet 09/11/2024 Provider: Diagnosis: Last Documented On 5 9:50AM By Quentin Burk ; [facility] predniSONE 10 MG Oral Tablet 03/11/2021 Provider: Jarek Muñiz DO Diagnosis: Last Documented On 8:34AM By Deborah Lowery ; [facility] Amoxicillin 500 MG Oral Capsule 03/11/2021 Provider: Jarek Muñiz DO Diagnosis: Last Documented On 8:34AM By Deborah Lowery ; [facility] Cephalexin 500 MG Oral Capsule 03/10/2021 Provider: Diagnosis: Last Documented On 8:34AM By Deborah Lowery ; [facility] HYDROcodone-Acetaminophen 5-325 MG Oral Tablet Provider: Diagnosis: Last Documented On 8:34AM By Deborah Lowery ; [facility] Gabapentin 300 MG Oral Capsule 03/06/2021 Provider: Diagnosis: Last Documented On 8:34AM By Deborah Lowery ; [facility] LORazepam 1 MG Oral Tablet 03/06/2021 Provider: Diagnosis: Last Documented On 1 8:34AM By Deborah Lowery ; [facility] Esomeprazole Magnesium 40 MG Oral Capsule Delayed Rele ase 03/04/2021 Provider: Diagnosis: Last Documented On 8:34AM By Deborah Lowery ; [facility], [facility] Esomeprazole Magnesium 40 MG Oral Capsule Delayed Rele ase 03/04/2021 Provider: Diagnosis: Last Documented On 1 8:34AM By Deborah Lowery ; [facility], [facility] Fluticasone Propionate 50 MCG/ACT Nasal Suspension Provider: Diagnosis: Last Documented On 8:35AM By Deborah Lowery ; [facility] Past Medications on file Clindamycin HCl 300 MG Oral Capsule 01/07/2025 - 01/09/2025 Provider: Holden Steiner Diagnosis: take 2 pills, 3 three times a day Last Documented On 5 11:06AM By Quentin Burk ; [facility] Clindamycin HCl 300 MG Oral Capsule 12/28/2024 - 01/08/2025 Provider: Holden Steiner Diagnosis: three times a day Last Documented On 5 10:10AM By Quentin Burk ; [facility] Percocet 5-325 MG Oral Tablet 12/19/2024 - 01/03/2025 Provider: Issa Rodriguez MD Diagnosis: 1 po q 4h prn pain Last Documented On 5 8:40AM By Issa Rodriguez ; [facility] Losartan Potassium 100 MG Oral Tablet 12/05/2024 - Provider: Diagnosis: Last Documented On 5 3:50PM By Marifer Nuñez ; [facility], [facility] DULoxetine HCl 60 MG Oral Ca psule Delayed Release Particles 12/05/2024 - 03/05/2025 Provider: Diagnosis: Last Documented On 5 3:49PM By Marifer Nuñez ; [facility], [facility] Montelukast Sodium 10 MG Oral Tablet 12/05/2024 - 02/15 Provider: Diagnosis: Last Documented On 5 3:49PM By Marifer Nuñez ; [facility], [facility] Losartan Potassium 100 MG Oral Tablet 03/03/2021 - Provider: Diagnosis: Last Documented On 5 3:50PM By Marifer Nuñez ; [facility], [facility] Montelukast Sodium 10 MG Oral Tablet 02/16/2021 - 11/16 Provider: Diagnosis: Last Documented On 5 3:49PM By Marifer Nuñez ; [facility], [facility] DULoxetine HCl 60 MG Oral Ca psule Delayed Release Particles 02/16/2021 - 12/05/2024 Provider: Diagnosis: Last Documented On 5 3:49PM By Marifer Nuñez ; [facility], [facility] Percocet 5-325 MG OR TABS 10/05/2019 - 03/12/2021 Prov ider: Issa Rodriguez MD Diagnosis: prn pain Last Documented On 1 8:36AM By Deborah Lowery ; [facility], [facility] Dilaudid 2 MG Oral Tablet 05/02/2019 - 03/12/2021 Provider: Domingo tan MD Diagnosis: 1-2 po q6h prn pain (RESCUE PAIN) DO NOT FILL TILL 05/04/2019 FOR SURGERY Last Documented On 1 8:36AM By Deborah Lowery ; [facility], [facility] Neurontin 300 MG Oral Capsule 05/02/2019 - 03/12/2021 Provider: Domingo tan MD Diagnosis: 1 every bedtime DO NOT SELVIN L TILL 05/04/2019 FOR SURGERY Last Documented On 1 8:36AM By Deborah Lowery ; [facility], [facility] traMADol HCl 50 MG Oral Tablet 05/02/2019 - 03/12/2021 Provider: Domingo tan MD Diagnosis: 1-2 po q6h prn pain DO NOT FILL TILL 05/04/2019 FOR SURGERY Last Documented On 1 8:35AM By Deborah Lowery ; [facility], [facility] oxyCODONE HCl 5 MG Oral Tablet 05/02/2019 - 03/12/2021 Provider: Domingo tan MD Diagnosis: 1-2 po q6h prn pain DO NOT FILL TILL 05/04/2019 FOR SURGERY Last Documented On 1 8:36AM By Deborah Lowery ; [facility] Zofran 4 MG Oral Tablet 05/02/2019 - 03/12/2021 Provid er: Domingo Billingsley MD Diagnosis: [id number] DO NOT FILL TILL 05/04/2019 FOR SURGERY Last Documented On 1 8:35AM By Deborah Lowery ; [facility] Keflex 500 MG Oral Capsule 05/02/2019 - 03/12/2021 Provider: Domingo tan MD Diagnosis: 1 every 6 hours DO NOT SELVIN L TILL 05/04/2019 FOR SURGERY Last Documented On 1 8:36AM By Deborah Lowery ; [facility] Acetaminophen 500 MG Oral Tablet 05/02/2019 - 03/12/2021 Provider: Domingo Billingsley MD Diagnosis: 2 three times a day DO NOT FILL TILL 05/04/2019 FOR SURGERY Last Documented On 1 8:36AM By Deborah Lowery ; [facility] Colace 100 MG Oral Capsule 05/02/2019 - 03/12/2021 Provider: Domingo tan MD Diagnosis: 1-2 tabs daily DO NOT FILL TILL 05/04/2019 FOR SURGERY Last Documented On 1 8:36AM By Deborah Lowery ; [facility], [facility] Mobic 15 MG Oral Tablet 05/02/2019 - 03/12/2021 Provid er: Domingo Billingsley MD Diagnosis: once a day DO NOT FILL TIL L 05/04/2019 FOR SURGERY Last Documented On 1 8:36AM By Deborah Lowery ; [facility] Mupirocin 2% External Ointment 04/09/2019 - 03/12/2021 Provider: Domingo tan MD Diagnosis: Apply to nostrils 3 times a day 5 days prior to surgery. Last Documented On 1 8:35AM By Deborah Lowery ; [facility] Gabapentin 300MG Oral Capsule 04/05/2019 - 03/12/2021 Provider: Diagnosis: Last Documented On 1 8:35AM By Deborah Lowery ; [facility], [facility] HM Loratadine 10MG Oral Tablet 04/05/2019 - 03/12/2021 Provider: Diagnosis: Last Documented On 1 8:35AM By Deborah Lowery ; [facility], [facility] sulfaSALAzine 500MG Oral Tablet 03/24/2019 - Provider: Olga Licea [employer] Diagnosis: Last Documented On 1 8:35AM By Deborah Lowery ; [facility], [facility] Losartan Potassium 100MG Ora l Tablet 03/05/2019 - 03/12/2021 Provider: Olga Lozano PRN Diagnosis: Last Documented On 8:35AM By Deborah Lowery ; [facility], [facility] Montelukast Sodium 10MG Oral Tablet 03/04/2019 - 03/12/2021 Provider: Olga Lozano PRN Diagnosis: Last Documented On 8:35AM By Deborah Lowery ; [facility], [facility] Tamsulosin HCl 0.4MG Oral Capsule 03/04/2019 - 03/12/2021 Provider: Olga Lozano PRN Diagnosis: Last Documented On 8:35AM By Deborah Lowery ; [facility], [facility] LORazepam 1MG Oral Tablet 02/22/2019 - 03/12/2021 Prov ider: Olga Licea [employer] Diagnosis: Last Documented On 8:35AM By Deborah Lowery ; [facility], [facility] DULoxetine HCl 60MG Oral Capsule Delayed Release Particles 02/09/2019 - 03/12/2021 Provider: Olga Lozano PRN Diagnosis: Last Documented On 1 8:35AM By Deborah Lowery ; [facility], [facility] Finasteride 5MG Oral Tablet 01/21/2019 - 03/12/2021 Pr ovider: Olga Licea [employer] Diagnosis: Last Documented On 1 8:35AM By Deborah Lowery ; [facility], [facility] traZODone HCl 150MG Oral Tablet 01/21/2019 - Provider: Olga Licea [employer] Diagnosis: Last Documented On 8:35AM By Deborah Lowery ; [facility] Omeprazole 20MG Oral Tablet Delayed Release 12/07/2018 - 03/12/2021 Provider: ANDREA Abbott II, MD Diagnosis: Last Documented On 8:35AM By Deborah Lowery ; [facility] Medications Administered Includes: Administered Medications in patient's chart No Administered Medications Recorded Vital Signs Includes: Vital Signs from 07/16/2024 through 07/16/2025 Vital Name 06/06/2025 09:02A 01/14/2025 10:36A 01/07/2025 11:15A 01/07/2025 10:50A 12/28/2024 09:51A Height (in) 69 69 69 69 Weight (lb) 252 250 250 250 Body Mass Index 37.2 36.9 36.9 36.9 Body Surface Area 2.3 2.3 2.3 2.3 Pain Level 5 3 2 Temp-Oral (F) 97.5 Last Documented: On 06/06/2025 9:02AM ; [facility] On 01/14/2025 10:36AM ; [facility] On 01/07/2025 11:15AM ; [facility] On 01/07/2025 10:50AM ; [facility] On 12/28/2024 9:51AM ; [facility] Vital Name 12/05/2024 02:27P 11/29/2024 03: 21P Height (in) 69 68 Weight (lb) 250 250 Body Mass Index 36.9 38 Body Surface Area 2.3 2.2 Pain Level 8 Note: MCG Last Documented: On 12/05/2024 3:51PM ; [facility] On 11/29/2024 3:22PM ; [facility] Results Includes: Results from 07/16/2024 through 07/16/2025 No Results Recorded For Specified Dates Social History Description Last Updated Tobacco non-user 04/22/2022 Last Documented On 2 10:50AM ; [facility] No recent change in diet 04/22/2022 Last Documented On 2 10:50AM ; [facility] Not a current smoker. 04/22/2022 Last Documented On 2 10:50AM ; [facility] Non-smoker 03/12/2021 Last Documented On 1 8:44AM ; [facility] No tobacco use 04/05/2019 Last Documented On 9 10:53AM ; [facility] Smoking status : Never smoker 04/05/2019 Last Documented On 9 10:53AM ; [facility] Caffeine use 04/05/2019 Last Documented On 9 10:53AM ; [facility] No recent change in diet 04/05/2019 Last Documented On 9 10:53AM ; [facility] Not a current smoker 04/05/2019 Last Documented On 9 10:53AM ; [facility] Not exercising regularly 04/05/2019 Last Documented On 9 10:53AM ; [facility] Not using alcohol 04/05/2019 Last Documented On 9 10:53AM ; [facility] Not using drugs 04/05/2019 Last Documented On 9 10:53AM ; [facility], [facility] Sex - Male 07/05/2025 Last Documented On 5 2:08PM ; [facility], [facility] Procedures and Surgical History Includes: Procedures from 07/16/2024 through 07/16/2025 Procedures Code Diagnosis Performing Provider Service Location Service Date Revision or removal of implanted spinal neurostimulator puls (Office Services Specialist surgeon) 55305 I/I react d/t implnt elec nstim, generator, init Bekah Cagle PA-C [facility] 07/03/2025 Last Documented On 5 1:56PM ; [facility], [facility] Revision or removal of implanted spinal neurostimulator puls 67501 I/I react d/t implnt elec nstim, generator, init Issa Rodriguez MD [facility] 07/03/2025 Last Documented On 5 1:56PM ; [facility], [facility] X-RAY EXAM OF TRUNK SPINE 40417 Encntr for adjust and mgmt of implanted nervous sys device, Presence of neurostimulator Issa Rodriguez MD [facility] 06/06/2025 Last Documented On 5 2:21PM ; [facility], [facility] Insertion or replacement of spinal neurostimulator pulse gen (Distinct procedure) 92343 Chronic pain syndrome Issa Rodriguez MD [facility] 12/19/2024 Last Documented On 5 5:16PM ; [facility], [facility] Revision including replacement, when [place] [address] [facility] compl of implnt elec nstim of spinal cord lead, init Issa Rodriguez MD [facility] 12/19/2024 Last Documented On 5 5:16PM ; [facility], [facility] X-RAY EXAM OF FINGER(S) 2-3 VIEWS (Bilateral Procedure) 75092 Trigger finger, left middle finger, 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 12/05/2024 Last Documented On 5 3:22PM ; [facility] Injection, betamethasone acetate 6mg per cc and betamethason J0702 Trigger finger, left middle finger, 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, [facility] 12/05/2024 Last Documented On 5 3:22PM ; [facility] INJ TENDON SHEATH/LIGAMENT (LEFT HAND, THIRD DIGIT) 22389 Trigger finger, left middle finger [facility] 12/05/2024 Last Documented On 5 3:22PM ; [facility] DRAIN/INJECT, JOINT/BURSA (RIGHT) 96305 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, r hand [facility] 12/05/2024 Last Documented On 5 3:22PM ; [facility], [facility] X-RAY EXAM OF LOWER SPINE 2-3 VIEWS LIMITED 85648 Chronic pain syndrome Issa Rodriguez MD [facility] 11/29/2024 Last Documented On 5 11:33AM ; [facility], [facility] X-RAY EXAM OF THORACIC SPINE 2 VIEWS 24487 Chronic pain syndrome Issa Rodriguez MD [facility] 11/29/2024 Last Documented On 5 11:33AM ; [facility], [facility] Surgical History Last Updated History of hernia repair 04/05/2019 Last Documented On 9 10:53AM ; [facility], [facility] Medical History Includes: Medical History in patient's chart Description Last Updated No recent immunization for flu Last Documented On 1 8:44AM ; [facility], [facility] No recent immunization for pneumococcal pneumonia 03/12/2021 Last Documented On 1 8:44AM ; [facility], [facility] cataracs 04/05/2019 Last Documented On 9 10:53AM ; [facility], [facility] Arthritic joint problems 04/05/2019 Last Documented On 9 10:53AM ; [facility], [facility] Intermittent hypertension 04/05/2019 Last Documented On 9 10:53AM ; [facility], [facility] Family History Includes: Family History in patient's chart Description Last Updated Family history of cancer 04/05/2019 Last Documented On 9 10:53AM ; [facility], [facility] Family history of hypertension 9 Last Documented On 9 10:53AM ; [facility], [facility] Mental Status Description Anxiety Last Documented On 5 8:58AM ; [facility] Anxiety Last Documented On 5 10:36AM ; [facility] Anxiety Last Documented On 5 10:49AM ; [facility] Anxiety Last Documented On 5 9:50AM ; [facility] Anxiety Last Documented On 5 2:27PM ; [facility] No anxiety Last Documented On 5 3:07PM ; [facility] No anxiety Last Documented On [...] and resolved Allergies No Known Allergies Care Coat Checker Name (Identifier) Role/Relation Location/Telecom Last Documented By Domingo Billingsley MD ([id number]) Assigned practitioner (occupation) tel:[phone] Last Documented On 07/05/2025 2:08PM ; [facility] Olga Licea APRN ([id number]) [address] [place] [address], [id number] tel: Last Documented On 04/05/2019 9:06AM ; [facility] Encounters Includes: Encounters from 07/16/2024 through 07/16/2025 Encounter Provider Location (Healthcare Service Location) Date Check-In Time Check-Out Time Diagnosis Encounter Disposition [Patient Encounter] Issa Rodriguez MD [facility] Outpt 202406/06/2025 1:55PM 06/06/2025 11:59PM [Patient Encounter] Issa Rodriguez MD 202406/06/2025 8:31AM 06/06/2025 11:59PM Follow Up Issa Rodriguez MD [facility] 2024 8:53AM 10:11AM Overweight Post Op Holden Modi PA-C [facility] 2024 10:30AM 10:40AM Overweight Post Op Holden Modi [facility] 2024 10:33AM 11:15AM Overweight Post Op Holden Modi [facility] 2024 9:29AM 10:09AM Overweight [Patient Encounter] Issa Rodriguez MD 202412/05/2024 8:36AM 12/05/2024 11:59PM [facility] Issa Rodriguez MD Surgery 202412/23/2024 5:01PM 12/05/2024 11:59PM IN HOUSE REFERRAL Flako Pulido PA-C [facility] 2024 2:26PM 3:21PM Overweight Follow Up Issa Rodriguez MD [facility] 2024 3:04PM 3:32PM Payer Includes: Active Insurance Policies Plan Name (Payer ID) Coverage Type Member ID Group # Subscriber (ID) Relationship Effective Dates 1 - Medicare Part B [facility] ([id number]) [id number] Stephane Mendieta Self (Checked on 06/03/2025) Last Documented On 9 7:57AM ; [facility], [facility] 2 - [employer] Medicare Supplemen t Insurance [id number] Stephaen Mendieta Self 09/15/2017 - Unknown Last Documented On 9 8:40AM ; [facility], [facility] Clinical Notes Includes: Signed Clinical Notes starting from 07/01/2022 * Progress note Date Encounter Last Documented by 06/06/2025 Follow Up Last documented on 06/11/2025; 1:20 PM, Issa Rodriguez MD; [facility], [facility] Active Problems & Conditions - [...] Care Team - Olga Licea APRN - [facility] Health Reminders - Assess BMI satisfied 06/06/2025. - Assess Tobacco Use satisfied 04/05/2019. - Follow Up Plan BMI Management satisfied 06/06/2025. * Progress note Date Encounter Last Documented by 01/14/2025 Post Op Last documented on 01/14/2025; 10:41 AM, Holden Modi PA-C; [facility], [facility] Active Problems & Conditions - [...] Care Team - Olga Licea APRN - [facility] * Progress note Date Encounter Last Documented by 01/07/2025 Post Op Last documented on 01/28/2025; 11:48 AM, Holden Modi PA-C; [facility], [facility] Active Problems & Conditions - [...] Care Team - Olga Licea APRN - [facility] * Progress note Date Encounter Last Documented by 12/28/2024 Post Op Last documented on 12/28/2024; 12:21 PM, Holden Modi PA-C; [facility], [facility] Active Problems & Conditions - [...] Care Team - Olga Licea APRN - [facility] * Progress note Date Encounter Last Documented by 12/05/2024 IN HOUSE REFERRAL Last documente d on 12/05/2024; 4:17 PM, Flako Pulido PA-C; [facility], [facility] Active Problems & Conditions - [...] Care Team - Olga Licea APRN - [facility] * Progress note Date Encounter Last Documented by 11/29/2024 Follow Up Last documented on 12/17/2024; 10:39 AM, Issa Rodriguez MD; [facility], [facility] Active Problems & Conditions - [...] 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 He is neurovascularly intact. He is [...] Care Team - Olga Licea APRN - [facility] Health Reminders - Assess BMI satisfied 11/29/2024. - Assess Tobacco Use satisfied 04/05/2019. - Follow Up Plan BMI Management satisfied 11/29/2024.
--- OUTSIDE RECORDS SUMMARY | 2025-07-16 10:38 | XMS_ITS | Clinical Summary ---
Author Organization [facility] Address [address] [place] [address] Phone Care Team Providers Care Litigation Legal Secretary Name Role Phone Jose Cruz COLEMAN, Domingo Jett Unavailable [phone] Olga Licea APRN Unavailable [phone] Reason for Visit and Chief Complaint [Patient Encounter] Problems Includes: Problems addressed during this encounter and other active Problems All Visits Onset Date Date of Diagnosis Resolved Date Provider Condition Status Soft Tissue Pain Hand 12/05/2024 12/05/2024 Flako Pulido PA-C Active Last Documented On 5 1:43AM ; [facility], [facility] History of Lower Back Pain M idline Right Side 04/12/2022 04/12/2022 Holden Modi PA-C Active Last Documented On 5 1:41AM ; [facility], [facility] Joint Pain Left Thumb 03/12/2021 03/12/2021 Charles Hernandez MD Active Last Documented On 5 1:40AM ; [facility], [facility] Joint Pain in Both Knees 04/05/2019 04/05/2019 Arlet Billingsley MD Active Last Documented On 5 1:39AM ; [facility] Plan of Treatment Future Appointments Date Time Location Provi tahira Post Op 07/19/2025 11:00AM [facility] [place] Holden Modi PA-C Last Documented On 5 10:29AM ; [facility], [facility] Assessments Includes: Assessments from this [...] q 4h prn pain Pharmacy: [facility] #[id number] - [address] , [facility], [id number] - Last Documented On 8:39AM By Issa Rodriguez ; [facility], [facility] Current Medications (continue as prescribed) Clindamycin HCl 300 MG Oral Capsule 01/07/2025 Provi tahira: Holden Modi PA-C Diagnosis: Last Documented On 10:36AM By Quentin Burk ; [facility], [facility] oxyCODONE-Acetaminophen 5-325 MG Oral Tablet Provider: Issa Rodriguez MD Diagnosis: Last Documented On 9:50AM By Quentin Burk ; [facility], [facility] Pantoprazole Sodium 40 MG Or al Tablet Delayed Release 12/09/2024 Provider: Maya Torres [employer] Diagnosis: Last Documented On 9:50AM By Quentin Burk ; [facility], [facility] LORazepam 1 MG Oral Tablet 12/04/2024 Provider: Nancy Torres [employer] Diagnosis: Last Documented On 9:50AM By Quentin Burk ; [facility], [facility] Doxycycline Hyclate 100 MG Oral Capsule 12/04/2024 P rosoniader: Diagnosis: Last Documented On 9:50AM By Quentin Burk ; [facility], [facility] sulfaSALAzine 500 MG Oral Tablet 11/27/2024 Provider : Maya Torres [employer] Diagnosis: Last Documented On 9:50AM By Quentin Burk ; [facility], [facility] Albuterol Sulfate HFA 108 (9 0 Base) MCG/ACT Inhalation Aerosol Solution 11/07/2024 Provider: Maya anderson [employer] Diagnosis: Last Documented On 06/13/202 5 9:50AM By Quentin Burk ; [facility] Finasteride 5 MG Oral Tablet 11/03/2024 Provider: Maya Torres APRN Diagnosis: Last Documented On 5 9:50AM By Quentin Burk ; [facility] Tamsulosin HCl 0.4 MG Oral Capsule 11/03/2024 Provid er: Maya Torres APRN Diagnosis: Last Documented On 5 3:49PM By Marifer Nuñez ; [facility] Amoxicillin 875 MG Oral Tablet 09/11/2024 Provider: Diagnosis: Last Documented On 5 9:50AM By Quentin Burk ; [facility] predniSONE 10 MG Oral Tablet 03/11/2021 Provider: Jarek Muñiz DO Diagnosis: Last Documented On 8:34AM By Deborah Lowery ; [facility] Amoxicillin 500 MG Oral Capsule 03/11/2021 Provider: Jarek Muñiz DO Diagnosis: Last Documented On 8:34AM By Deborah Lowery ; [facility] Cephalexin 500 MG Oral Capsule 03/10/2021 Provider: Diagnosis: Last Documented On 8:34AM By Deborah Lowery ; [facility] HYDROcodone-Acetaminophen 5-325 MG Oral Tablet 021 Provider: Diagnosis: Last Documented On 8:34AM By Deborah Lowery ; [facility] Gabapentin 300 MG Oral Capsule 03/06/2021 Provider: Diagnosis: Last Documented On 8:34AM By Deborah Lowery ; [facility] LORazepam 1 MG Oral Tablet 03/06/2021 Provider: Diagnosis: Last Documented On 8:34AM By Deborah Lowery ; [facility] Esomeprazole Magnesium 40 MG Oral Capsule Delayed Rele ase 03/04/2021 Provider: Diagnosis: Last Documented On 8:34AM By Deborah Lowery ; [facility] Esomeprazole Magnesium 40 MG Oral Capsule Delayed Rele ase 03/04/2021 Provider: Diagnosis: Last Documented On 8:34AM By Deborah Lowery ; [facility] Fluticasone Propionate 50 MCG/ACT Nasal Suspension Provider: Diagnosis: Last Documented On 8:35AM By Deborah Lowery ; [facility] Medications Administered Includes: Administered Medications from this encounter No Administered Medications Recorded Results Includes: Results discussed during this encounter No Results Recorded For Specified Dates History of Present Illness Includes: History of Present Illness from this encounter No History of Present Illness Recorded Social History Description Last Updated Sex - Male 07/05/2025 Last Documented On 5 2:08PM ; [facility] Smoking Status Unknown Medical History Includes: [...] Includes: Active Allergies No Known Allergies Care Litigation Legal Secretary Name (Identifier) Role/Relation Location/Telecom Last Documented By Domingo Billingsley MD ([id number]) Assigned practitioner (occupation) tel:[phone] Last Documented On 07/05/2025 2:08PM ; [facility] Olga Vicki Licea APRN ([id number]) [address] [place] [address], [facility], [address] tel:[phone] Last Documented On 04/05/2019 9:06AM ; [facility] Encounters Encounter Provider Location (Healthcare Service Location) Date Check-In Time Check-Out Time Diagnosis Encounter Disposition [Patient Encounter] Issa Rodriguez MD 2024 8:31AM 11:59PM Payer Includes: Active Insurance Policies Plan Name (Payer ID) Coverage Type Member ID Group # Subscriber (ID) Relationship Effective Dates 1 - Medicare Part B [facility] ([id number]) [id number] Stephane Mendieta Self (Checked on 06/03/2025) Last Documented On 9 7:57AM ; [facility] [id number] Stephane Marta AnnDickinson Self 09/15/2017 - Unknown Last Documented On 9 8:40AM ; [facility]
--- OUTSIDE RECORDS SUMMARY | 2025-07-16 10:38 | XMS_ITS | Clinical Summary ---
Author Organization [facility] Address [address] [place] [address] Phone Care Team Providers Care Telephone Sales Representative Name Role Phone Jose Cruz COLEMAN, Domingo Jett Unavailable [phone] Olga Licea APRN Unavailable [phone] Reason for Visit and Chief Complaint The Chief Complaint is: back pain Problems Includes: Problems addressed during this encounter and other active Problems All Visits Onset Date Date of Diagnosis Resolved Date Provider Condition Status Soft Tissue Pain Hand 12/05/2024 12/05/2024 Flako Pulido PA-C Active Last Documented On 5 1:43AM ; [facility] History of Lower Back Pain M idline Right Side 04/12/2022 04/12/2022 Holden Modi PA-C Active Last Documented On 5 1:41AM ; [facility] Joint Pain Left Thumb 03/12/2021 03/12/2021 Charles Hernandez MD Active Last Documented On 5 1:40AM ; [facility] Joint Pain in Both Knees 04/05/2019 04/05/2019 Arlet Billingsley MD Active Last Documented On 5 1:39AM ; [facility] Plan of Treatment Patient screened for future fall risk: documentation of any fall with injury in past year. - Last Documented On 01/14/2025 10:41AM ; [facility] Patient was seen by myself Holden Modi [...] Last Documented On 01/14/2025 10:41AM ; [facility] Pending Tests Order Diagnosis Results Due Ordering P rovider Radiology - MRI MRI Lumbar Spine 04/26/22 Chas Modi PA-C Last Documented On 2 1:06PM ; [facility] Future Appointments Date Time Location Provi tahira Post Op 07/19/2025 11:00AM [facility] Holden Modi PA-C Last Documented On 5 10:29AM ; [facility] Instructions to patient Lose weight Last Documented On 10:36AM ; [facility] Assessments Includes: Assessments from this encounter Findings - Overweight - Last Documented On 01/14/2025 10:41AM ; [facility] 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 December 19, 2024 - Last Documented On 01/14/2025 10:41AM ; [facility] Instructions Includes: Instructions from this encounter Instructions to patient Lose weight Last Documented On 10:36AM ; [facility] Medical Equipment - Implanted Devices Includes: Current Devices No Medical Equipment Recorded Medications Includes: Medications discussed during this encounter and other current Medications Current Medications (continue as prescribed) Percocet 5-325 MG Oral Tablet 07/03/2025 - 07/18/2025 Provider: Issa Rodriguez MD Diagnosis: 1 po q 4h prn pain Last Documented On 5 8:39AM By Issa Rodriguez ; [facility] Clindamycin HCl 300 MG Oral Capsule 01/07/2025 Provi tahira: Holden Modi PA-C Diagnosis: Last Documented On 5 10:36AM By Quentin Wm ; [facility] oxyCODONE-Acetaminophen 5-325 MG Oral Tablet Provider: Issa Rodriguez MD Diagnosis: Last Documented On 5 9:50AM By Quentin Burk ; [facility] Pantoprazole Sodium 40 MG Or al Tablet Delayed Release 12/09/2024 Provider: Maya Torres REGISTERED NURSE SUPERVISOR Diagnosis: Last Documented On 5 9:50AM By Quentin Burk ; [facility] LORazepam 1 MG Oral Tablet 12/04/2024 Provider: Nancy Torres REGISTERED NURSE SUPERVISOR Diagnosis: Last Documented On 5 9:50AM By Quentin Burk ; [facility] Doxycycline Hyclate 100 MG Oral Capsule 12/04/2024 P rosoniader: Diagnosis: Last Documented On 5 9:50AM By Quentin Burk ; [facility] sulfaSALAzine 500 MG Oral Tablet 11/27/2024 Provider : Maya Torres REGISTERED NURSE SUPERVISOR Diagnosis: Last Documented On 5 9:50AM By Quentin Burk ; [facility] Albuterol Sulfate HFA 108 (9 0 Base) MCG/ACT Inhalation Aerosol Solution 11/07/2024 Provider: Maya anderson REGISTERED NURSE SUPERVISOR Diagnosis: Last Documented On 5 9:50AM By Quentin Burk ; [facility] Finasteride 5 MG Oral Tablet 11/03/2024 Provider: Maya Torres REGISTERED NURSE SUPERVISOR Diagnosis: Last Documented On 5 9:50AM By Quentin Burk ; [facility] Tamsulosin HCl 0.4 MG Oral Capsule 11/03/2024 Provid er: Maya Torres REGISTERED NURSE SUPERVISOR Diagnosis: Last Documented On 5 3:49PM By Marifer Nuñez ; [facility] Amoxicillin 875 MG Oral Tablet 09/11/2024 Provider: Diagnosis: Last Documented On 5 9:50AM By Quentin Burk ; [facility] predniSONE 10 MG Oral Tablet 03/11/2021 Provider: Jarek Muñiz DO Diagnosis: Last Documented On 1 8:34AM By Deborah Lowery ; [facility] Amoxicillin 500 MG Oral Capsule 03/11/2021 Provider: Jarek Muñiz DO Diagnosis: Last Documented On 1 8:34AM By Deborah Lowery ; [facility] Cephalexin 500 MG Oral Capsule 03/10/2021 Provider: Diagnosis: Last Documented On 8:34AM By Deborah Lowery ; [facility] HYDROcodone-Acetaminophen 5-325 MG Oral Tablet 021 Provider: Diagnosis: Last Documented On 8:34AM By Deborah Lowery ; [facility] Gabapentin 300 MG Oral Capsule 03/06/2021 Provider: Diagnosis: Last Documented On 8:34AM By Deborah Lowery ; [facility] LORazepam 1 MG Oral Tablet 03/06/2021 Provider: Diagnosis: Last Documented On 8:34AM By Deborah Lowery ; [facility] Esomeprazole Magnesium 40 MG Oral Capsule Delayed Rele ase 03/04/2021 Provider: Diagnosis: Last Documented On 8:34AM By Deborah Lowery ; [facility] Esomeprazole Magnesium 40 MG Oral Capsule Delayed Rele ase 03/04/2021 Provider: Diagnosis: Last Documented On 8:34AM By Deborah Lowery ; [facility] Fluticasone Propionate 50 MCG/ACT Nasal Suspension Provider: Diagnosis: Last Documented On 8:35AM By Deborah Lowery ; [facility] Past Medications on file Clindamycin HCl 300 MG Oral Capsule 01/07/2025 - 01/09/2025 Provider: Holden Steiner Diagnosis: take 2 pills, 3 three times a day Last Documented On 5 11:06AM By Quentin Burk ; [facility] Clindamycin HCl 300 MG Oral Capsule 12/28/2024 - 01/08/2025 Provider: Holden Steiner Diagnosis: three times a day Last Documented On 5 10:10AM By Quentin Burk ; [facility] Percocet 5-325 MG Oral Tablet 12/19/2024 - 01/03/2025 Provider: Issa Rodriguez MD Diagnosis: 1 po q 4h prn pain Last Documented On 5 8:40AM By Issa Rodriguez ; [facility] Losartan Potassium 100 MG Oral Tablet 12/05/2024 - Provider: Diagnosis: Last Documented On 5 3:50PM By Marifer Nuñez ; [facility] DULoxetine HCl 60 MG Oral Ca psule Delayed Release Particles 12/05/2024 - 03/05/2025 Provider: Diagnosis: Last Documented On 5 3:49PM By Marifer DANGEL[facility] Montelukast Sodium 10 MG Oral Tablet 12/05/2024 - 02/15 Provider: Diagnosis: Last Documented On 5 3:49PM By Marifer Nuñez ; [facility] Medications Administered Includes: Administered Medications from this encounter No Administered Medications Recorded Vital Signs Includes: Vital Signs from this encounter Vital Name 01/14/2025 10:36A Height (in) 69 Weight (lb) 250 Body Mass Index 36.9 Body Surface Area 2.3 Pain Level 3 Last Documented: On 01/14/2025 10:36A M ; [facility] Results Includes: Results discussed during this encounter [...] Documented On 5 10:36AM ; [facility] No recent change in diet 04/22/2022 Last Documented On 5 10:36AM ; [facility] Not a current smoker. 04/22/2022 Last Documented On 5 10:36AM ; [facility] Non-smoker 03/12/2021 Last Documented On 5 10:36AM ; [facility] No tobacco use 04/05/2019 Last Documented On 5 10:36AM ; [facility] Smoking status : Never smoker 04/05/2019 Last Documented On 5 10:36AM ; [facility] Caffeine use 04/05/2019 Last Documented On 5 10:36AM ; [facility] No recent change in diet 04/05/2019 Last Documented On 5 10:36AM ; [facility] Not a current smoker 04/05/2019 Last Documented On 5 10:36AM ; [facility] Not exercising regularly 04/05/2019 Last Documented On 5 10:36AM ; [facility] Not using alcohol 04/05/2019 Last Documented On 5 10:36AM ; [facility] Not using drugs 04/05/2019 Last Documented On 5 10:36AM ; [facility] Sex - Male 07/05/2025 Last Documented On 5 2:08PM ; [facility] Procedures and Surgical History Surgical History Last Updated History of hernia repair 04/05/2019 Last Documented On 5 10:36AM ; [facility] Medical History Includes: Medical History addressed during this encounter Description Last Updated No recent immunization for flu Last Documented On 5 10:36AM ; [facility] No recent immunization for pneumococcal pneumonia 03/12/2021 Last Documented On 5 10:36AM ; [facility] cataracs 04/05/2019 Last Documented On 5 10:36AM ; [facility] Arthritic joint problems 04/05/2019 Last Documented On 5 10:36AM ; [facility] Intermittent hypertension 04/05/2019 Last Documented On 5 10:36AM ; [facility] Family History Includes: Family History addressed during this encounter Description Last Updated Family history of cancer 04/05/2019 Last Documented On 5 10:36AM ; [facility] Family history of hypertension 9 Last Documented On 5 10:36AM ; [facility] Review of Systems Includes: Review of Systems [...] Anxiety Last Documented On 10:36AM ; [facility] Physical Exam Includes: Physical Exam from this encounter Allergies Includes: Active Allergies No Known Allergies Care Telephone Sales Representative Name (Identifier) Role/Relation Location/Telecom Last Documented By Domingo Billingsley MD ([id number]) Assigned practitioner (occupation) tel:[phone] Last Documented On 07/05/2025 2:08PM ; [facility] Olga Vicki Licea APRN ([id number]) [address] [place] [address], [address] tel:[phone] Last Documented On 04/05/2019 9:06AM ; [facility] Encounters Encounter Provider Location (Healthcare Service Location) Date Check-In Time Check-Out Time Diagnosis Encounter Disposition Post Op [facility] 10:30[facility] 10:40AM Overweight Payer Includes: Active Insurance Policies Plan Name (Payer ID) Coverage Type Member ID Group # Subscriber (ID) Relationship Effective Dates 1 - Medicare Part B [facility] ([id number]) [id number] Stephane Mendieta Self (Checked on 06/03/2025) Last Documented On 9 7:57AM ; [facility] 2 - [employer] Medicare Supplemen t Insurance [id number] Stephane Mendieta Self 09/15/2017 - Unknown Last Documented On 9 8:40AM ; [facility] Clinical Notes Includes: Clinical Notes from this encounter * Progress note Date Encounter Last Documented by 01/14/2025 Post Op Last documented on 01/14/2025; 10:41 AM, Holden Modi PA-C; [facility] Active Problems & Conditions - History of [...] Replacement spinal cord stimulator battery with the padQuantumID Technologiess system. December 19, 2024 Previous Tests Available [...] Care Team - Olga Licea APRN - SENIOR CARE PROVIDER
--- OUTSIDE RECORDS SUMMARY | 2025-07-16 10:38 | XMS_ITS | Encounter Summary ---
Author Organization [employer] ([place], [place], [place], [place], [place]) Address [address] [place] [address] Care Team Providers Care Deputy General Counsel Name Role Phone Maya Torres Reji BELCHER Primary Care Provider [phone] Encounter Details Date Type Department Care Team (Late st Contact Info) Description 10/27/2020 Transcribed Document [facility] [place] [address] [place] [address] ProviderJean MD [address] [place] [address] Social History Tobacco Use Types [...] On: 10/27/2020 12:21 EDT by Jasmin Thornton LEARNING DESIGN SPECIALIST General-Functional Assess Preferred Communication Mode : Verbal Communication Barrier : None Primary Language : [place] Any Spiritual/Cultural Needs or Requests : No [...] Rhythm : Regular Nail Bed Color : [place] Chest Pain : No Capillary Refill, Left [...] mm Pupil Size, Right : 3 mm [place] Coma Scale Link : Open GCS Jasmin Thornton RN - 10/27/2020 12:21 EDT Diana Coma Diana Best Motor Response : Obey commands Diana Best Verbal Response : Oriented [place] Eye Opening Response : Spontaneous [place] Coma Score : 15 Jasmin Thornton RN - 10/27/2020 12:21 EDT Electronically signed by [facility] Conversion Equipment Manager Cerner at 11/04/2022 3:11 PM CDT documented in this encounter Plan of Treatment Not on file documented as of this encounter Visit Diagnoses Not on filedocumented in this encounter Care Teams Deputy General Counsel Relationship Specialty Start Date End Date Maya Torres, CAP COVERER [address] [phone] PCP - General Family Medicine 08/27/22 documented as of this encounter
--- OUTSIDE RECORDS SUMMARY | 2025-07-16 10:38 | XMS_ITS | Encounter Summary ---
Author Organization [employer] ([place], [place], [place], [place], [place]) Address [address] [place] [address] Care Team Providers Care Interior Decorator Paperhanging Name Role Phone Maya Torres Reji BELCHER Primary Care Provider [phone] Encounter Details Date Type Department Care Team (Late st Contact Info) Description 10/18/2020 Transcribed Document [facility] [place] [facility] [place] [address] ProviderJean MD [address] [place], [place] [id number] Social History Tobacco Use Types Packs/Day Years [...] On: 10/18/2020 19:09 EDT by SUSHMA MARQUEZ, MECHANIC'S ASSISTANT Triage Across the Room Chief Complaint : [...] mmHg Oxygen Saturation : 95 % SUSHMA MARQUZE RN - 10/18/2020 19:09 EDT Allergy (As [...] Problems(Active) At risk for sleep apnea (IMO :47028212 ) Name of Problem: At risk for sleep apnea ; Recorder: SYSTEM, SYSTEM; Confirmation: Confirmed ; Classification: Medical ; Code: [id number] ; Last Updated: 06/16/2018 8:18 EST ; Life Cycle Date: 06/16/2018 ; Life Cycle Status: Active ; Vocabulary: IMO Enlarged prostate (SNOMED CT :085313192 ) Name of Problem: Enlarged prostate ; Recorder: Shavonne Jimenez RN; Confirmation: Confirmed ; Classification: Medical ; Code: [id number] ; Contributor System: [employer] ; Last Updated: 06/16/2018 8:22 EST ; Life Cycle Date: 06/16/2018 ; Life Cycle Status: Active ; Vocabulary: SNOMED CT Hypertension (SNOMED CT :6377992888 ) Name of Problem: Hypertension ; Recorder: Shavonne Jimenez RN; Confirmation: Confirmed ; Classification: Medical ; Code: [id number] ; Contributor System: [employer] ; Last Updated: 06/16/2018 8:21 EST ; Life Cycle Date: 06/16/2018 ; Life Cycle Status: Active ; Vocabulary: SNOMED CT Seasonal allergies (SNOMED CT :1182729238 ) Name of Problem: Seasonal allergies ; Recorder: Shavonne Jimenez RN; Confirmation: Confirmed ; Classification: Medical ; Code: [id number] ; Contributor System: [employer] ; Last Updated: 06/16/2018 8:22 EST ; Life Cycle Date: 06/16/2018 ; Life Cycle Status: Active ; Vocabulary: SNOMED CT Diagnoses(Active) Rib/trunk pain-swelling Date: 10/18/2020 ; Diagnosis Type: Reason For Visit ; Confirmation: Complaint of ; Clinical Dx: Rib/trunk pain-swelling ; Classification: Medical ; Clinical Service: Emergency medicine ; Code: PNED ; Probability: 0 ; Diagnosis Code: [id number] ED Height and Weight Height Source : Stated Height Entry Format : [place] Height, Feet : 5 ft(Converted to: 152 cm, 60 Inch) Height, Inches : 8 Inch(Converted to: 0 ft 8 Inch, 20.32 cm) Clinical Height : 172.72 cm Weight Source, ED : Critical estimated dosing weight Weight Entry Format : [place] Weight, Pounds : 240 lb Clinical Dosing Weight : 109.09 kg Body Surface Area (BSA) : 2.21 m2 Body Mass Index : 36.6 kg/m2 (HI) [place] Body Weight (IBW) : 67.45 kg SUSHMA MARQUEZ RN - 10/18/2020 19:09 EDT documented in this encounter Plan of Treatment Not on file documented as of this encounter Visit Diagnoses Not on filedocumented in this encounter Care Teams Interior Decorator Paperhanging Relationship Specialty Start Date End Date Maya Torres, INDIVIDUAL SMALL GROUP INSTRUCTOR [address] [phone] PCP - General Family Medicine 08/27/22 documented as of this encounter
--- OUTSIDE RECORDS SUMMARY | 2025-07-16 10:38 | XMS_ITS | Encounter Summary ---
Author Organization [employer] ([place], [place], [place], [place], [place]) Address [address] [place] [address] Care Team Providers Care Pool Table Mechanic Name Role Phone Maya Torres Reji BELCHER Primary Care Provider [phone]- [phone] Encounter Details Date Type Department Care Team (Late st Contact Info) Description 10/18/2020 Transcribed Document [facility] [place] Family Medicine [address] [place] [address] ProviderJean MD [address] [place], [place] [id number] Social History Tobacco Use Types Packs/Day Years [...] : Low risk (0) [place] Interventions : Randall precautions for safety used Dee Ocampo, HOLA - 10/18/2020 19:41 EDT documented in this encounter Plan of Treatment Not on file documented as of this encounter Visit Diagnoses Not on filedocumented in this encounter Care Teams Pool Table Mechanic Relationship Specialty Start Date End Date Maya Torres, SENIOR ANALYST [employer] [address] [phone] PCP - General Family Medicine 08/27/22 documented as of this encounter
[2025-07-16 11:18] VITALS: BP 156/101; PULSE 71; RESP 19; O2SAT 95
== END 2025-07-16 23:59 | disposition home or self-care (01) ==
PROVIDERS: PCP Nurse Practitioner; Visit Provider Internal Medicine Infectious Disease
DX: T85.73 Infection and inflammatory reaction due to nervous system devices, implants and graft (principal)
CPT/HCPCS: 96365; J0878

== ENCOUNTER 2025-07-17 10:08 | Outpatient (CLI) | payer MEDICARE, OTHER, SELFPAY ==
--- OUTSIDE RECORDS SUMMARY | 2022-12-01 11:56 | XMS_ITS | Encounter Summary ---
[facility] [address] [place] [address] Care Team Providers Care Slip Operator Name Role Phone Maya Torres Primary Care Provider + [phone] Encounter Details Date Type Department Care Team (Late st Contact Info) Description 12/01/2022 12:56 PM EDT Hospital Encounter [facility] PULMONARY & CRITICAL CARE MEDICINE [facility] [place] [address] Social History Tobacco Use Types [...] Narrative 12/01/2022 1:31 PM EDT Stephane Annton [id number] 12/01/2022 Chest X-Ray PA & Lateral Indication: [...] on filedocumented in this encounter Care Teams Slip Operator Relationship Specialty Start Date End Date Maya Torres [address] [place] [address] PCP - General Nurse Practitioner 09/28/22 documented as of this encounter
--- OUTSIDE RECORDS SUMMARY | 2024-04-27 06:30 | XMS_ITS ---
Author Organization [facility] Address [address] [place] [address] Care Team Providers Care Holder Pile Driving Name Role Phone Jerome Morrissey II Unavailable Michael CLOEMAN -Pramod Velazquez MD, Issa Unavailable [phone] Allergies No Known Allergies REASON FOR VISIT [...] Diagnosis [facility] [address] [place] [address] 04/27/2024 Jerome Morrissey Other shelter (current) drug therapy Z79.899 ; Spondylosis without myelopathy or radiculopathy, cervical region M47.812 ; Postlaminectomy syndrome, not elsewhere classified M96.1 and Spondylosis without myelopathy or radiculopathy, lumbar region M47.816 Assessments Encounter Date Diagnosis (ICD Code) Assessment Notes Treatment Notes Treatment Clinical Notes Section Notes 04/27/2024 Other termite control technician (current) drug therapy (ICD-10 - Z79.899) 04/02/2024 1. Discontinue [place] 5/325mg QD PRN 2. FU 1 month with [facility] 3. [employer] [facility] to change SCS settings 4. S/P TFESI [...] no relief with TFESI LT in January. [employer] rep in the room changing SCS settings. [...] no relief with TFESI LT in January. [employer] rep in the room changing SCS settings. [...] no relief with TFESI LT in January. [employer] rep in the room changing SCS settings. [...] no relief with TFESI LT in January. [employer] rep in the room changing SCS settings. [...] shelter (current) drug therapy 04/02/2024 1. Discontinue [place] 5/325mg QD PRN 2. FU 1 month with [facility] 3. [employer] rep to change SCS settings 4. S/P [...] Stephane YANEZ ADOB: 3 (74 yo M)Acc No.[id number]:04/27/2024 FollowUP Patient: Stephane RODRIGUEZ Provider: Reji Morrissey II, M.D. :1950 A ge:73 Y S ex:Male Date:04/27/2024 Address:[address] [place], [place] [id number] Subjective: * Chief Complaints: * 1 . [...] relief for 1 hour 0 08/09/2022SCS Trial [place] 80% relief for 1 week 0 02/13/2024#1 [...] * Vitals: * Examination: G eneral Examination: Nurse/Commission Associate: Phill McnamaraMA-Shamar)Madeleine 04/02/2024 9:48:48 AM > . [...] scars. Assessment: * Assessment: 1. O ther termite control technician (current) drug therapy - Z79.899 (Primary) 2 [...] no relief with TFESI LT in January. [employer] rep in the room changing SCS settings. [...] signature of Raymon Morrissey II, M.D. on 07/17/2025 at 09:11 AM OFFICE EXECUTIVE Sign off status: Pending * Provider: Reji Morrissey II, M.D. Date: Generated for Irwin spears/Davon/Bentleyitting on: 1 09:11 AM OFFICE EXECUTIVE History and Physical Notes * HPI (History [...] to advanced foraminal encroachment PHYSICAL/AQUA THERAPY/DME/OTHER HISTORY: 7214-2121 Chiropractic therapy program complete 06/2023-Present: Patient continues a prescribed home exercise program 3-5 times per week which includes walking, lumbar stretches, and alternating leg lifts PERTINENT SURGICAL EVALUATIONS/SPECIALIST CONSULTS 04/2022 - Dr. Rodriguez - No surgery recommened, recommends SCS trial PREVIOUS INJECTION\PROCEDURE HISTORY: 08/21/2019 #1 SIJI RT 20% relief for 1 hour 08/09/2022 SCS Trial [place] 80% relief for 1 week 02/13/2024 #1 [...] wi th an antalgic gait, pitched forward Nurse/Commission Associate: Mendez SHARMA-Shamar)Francisco J 04/02/2024 9:48:48 AM > [...]
--- OUTSIDE RECORDS SUMMARY | 2024-05-28 10:30 | XMS_ITS ---
Author Organization [facility] Address [address] [place] [address] Care Team Providers Care Surgical Nurse Name Role Phone Jerome Morrissey II Unavailable [phone] Michael COLEMAN -Pramod Velazquez MD, Issa Unavailable [phone] Allergies No Known Allergies REASON FOR VISIT [...] Diagnosis [facility] [address] [address] 05/28/2024 Jerome Morrissey Other marine oil terminal superintendent (current) drug therapy Z79.899 ; Spondylosis without myelopathy or radiculopathy, cervical region M47.812 ; Postlaminectomy syndrome, not elsewhere classified M96.1 and Spondylosis without myelopathy or radiculopathy, lumbar region M47.816 Assessments Encounter Date Diagnosis (ICD Code) Assessment Notes Treatment Notes Treatment Clinical Notes Section Notes 05/28/2024 Other retirement (current) drug therapy (ICD-10 - Z79.899) 04/02/2024 1. Discontinue [place] 5/325mg QD PRN 2. FU 1 month with [facility] 3. [employer] rep to change SCS settings 4. S/P [...] no relief with TFESI LT in January. [employer] rep in the room changing SCS settings. [...] no relief with TFESI LT in January. [employer] rep in the room changing SCS settings. [...] no relief with TFESI LT in January. [employer] in the room changing SCS settings. Patient [...] no relief with TFESI LT in January. [employer] rep in the room changing SCS settings. [...] Of Treatment Treatment Notes Assessment Notes Other marine oil terminal superintendent (current) drug therapy 04/02/2024 1. Discontinue [place] 5/325mg QD PRN 2. FU 1 month with [facility] 3. [employer] rep to change SCS settings 4. S/P [...] Stephane MENDIETA ADOB: 3 (74 yo M)Acc No.[id number]:05/28/2024 Progress NOte Patient: Stephane RODRIGUEZ Provider: Reji Morrissey II, M.D. :1950 A ge:73 Y S ex:Male Date:05/28/2024 Address:[address] [place] [phone] Subjective: * Chief Complaints: * 1 . [...] for 1 hour 0 08/09/2022 SCS Trial Ctuqdr53% relief for 1 week 0 02/08/2024- #1 [...] * Vitals: * Examination: G eneral Examination: Nurse/Contact Center Specialist: Madeleine Gonzalez (MA-Lex) 04/02/2024 9:48:48 AM > [...] scars. Assessment: * Assessment: 1. O ther retirement (current) drug therapy - Z79.899 (Primary) 2 [...] no relief with TFESI LT in January. [employer] rep in the room changing SCS settings. [...] Raymon Morrissey II, M.D. on 07/17/2025 at 09:12 AM TECHNICIAN SEMICONDUCTOR DEVELOPMENT Sign off status: Pending * Provider: Reji Morrissey II, M.D. Date: 07/28/2023 Generated for Irwin spears/Davon/Nicholasransmitting on: 09:12 AM TECHNICIAN SEMICONDUCTOR DEVELOPMENT History and Physical Notes * HPI (History [...] to advanced foraminal encroachment PHYSICAL/AQUA THERAPY/DME/OTHER HISTORY: 2994-2076 Chiropractic therapy program complete 06/2023-Present: Patient continues a prescribed home exercise program 3-5 times per week which includes walking, lumbar stretches, and alternating leg lifts PERTINENT SURGICAL EVALUATIONS/SPECIALIST CONSULTS 04/2022 - Dr. Rodriguez - No surgery recommened, recommends SCS trial PREVIOUS INJECTION\PROCEDURE HISTORY: 08/21/2019 #1 SIJAYLYN RT 20% relief for 1 hour 08/09/2022 SCS Trial [place] 80% relief for 1 week 02/08/2024 - [...] wi th an antalgic gait, pitched forward Nurse/Contact Center Specialist: Mendez (ALEJANDRINA-[facility])Francisco J 04/02/2024 9:48:48 AM > [...]
--- OUTSIDE RECORDS SUMMARY | 2025-07-17 10:11 | XMS_ITS | Encounter Summary ---
Author Organization [employer] ([place], [place], [place], [place], [place]) Address [address] [place] [address] Care Team Providers Care Crematorium Operator Name Role Phone Maya Torres SIMI Primary Care Provider +1- [phone] Encounter Details Date Type Department Care Team (Late st Contact Info) Description 10/27/2020 Transcribed Document [facility] [place] [facility] [place] [address] ProviderJean MD [address] [place] [id number] Social History Tobacco Use Types Packs/Day Years [...] EDT Height Source Stated Height Entry Format [place] Height/Length, BAHAMIAN (ft) 5 ft Height/Length BAHAMIAN 8 Inch CLINICALHEIGHT 172.72 cm [employer] Body Weight 67.45 kg Weight Source, ED Critical estimated dosing weight Weight Entry Format [place] Weight Nigerian lb 250 lb CLINICALWEIGHT 113.64 kg Body [...] Color Yellow Urine Appearance Clear Urine Specific [place] 1.006 Urine pH Dipstick 6.5 Urine Leukocyte [...] % LOW ALYC # 1 K/uL NA [place] Percent Man 2 % LOW Eos Percent Man 1 % Baso Percent Man 1 % Myelo Percent Man 2 % HI RBC Morphology Normal Platelet Ct Estimate Adequate Slide Review Add Diff Man PT 9.9 Second(s) INR 0.9 PTT 25.2 Second(s) Procalcitonin <0.25 ng/mL SARS-CoV-2 (COVID19 PCR) Negative . Radiology results: Radiology Results (Last 48 hours) [id number] -- 10/27/2020 11:59 CT Abdomen Pelvis W [...] on filedocumented in this encounter Care Teams Crematorium Operator Relationship Specialty Start Date End Date Maya Torres, MRI TECHNOLOGIST [address] [phone] PCP - General Family Medicine 08/27/22 documented as of this encounter
--- OUTSIDE RECORDS SUMMARY | 2025-07-17 10:11 | XMS_ITS | Encounter Summary ---
Author Organization [employer] ([place], [place], [place], [place], [place]) Address [address] [place] [address] Care Team Providers Care Transmitter Supervisor Name Role Phone Maya Torres Reji BELCHER Primary Care Provider +1- [phone] Encounter Details Date Type Department Care Team (Late st Contact Info) Description 10/27/2020 Transcribed Document [facility] [place] [address] [place] [address] ProviderJean MD [address] [place] [address] Social History Tobacco Use Types [...] on filedocumented in this encounter Care Teams Transmitter Supervisor Relationship Specialty Start Date End Date Maya Torres, LOG FEEDER [address] [phone] PCP - General Family Medicine 08/27/22 documented as of this encounter
--- OUTSIDE RECORDS SUMMARY | 2025-07-17 10:11 | XMS_ITS | Referral Summary ---
Author Organization [employer] ([place], [place], [place], [place], [place]) Address [address] [place] [address] Care Team Providers Care Web Services Architect Name Role Phone Maya Torres APRN Primary Care Provider +1- [phone] Allergies No known active allergies Medications traZODone [...] Date Jan rded Speak language other than Romanian at home Not on file 08/04/2023 Want [...] on file Insurance MEDICARE PART A B [facility] [facility] Care Teams Web Services Architect Relationship Specialty Start Date End Date Maya Torres, WRAPPING MACHINE HELPER [address] [phone] PCP - General Family Medicine 08/27/22
--- OUTSIDE RECORDS SUMMARY | 2025-07-17 10:11 | XMS_ITS | Encounter Summary ---
Author Organization [employer] ([place], [place], [place], [place], [place]) Address [address] [place] [address] Care Team Providers Care Studio Artist Name Role Phone Maya Torres Reji BELCHER Primary Care Provider +1- [phone] Encounter Details Date Type Department Care Team (Late st Contact Info) Description 10/27/2020 Transcribed Document [facility] [place] [place] Family Medicine [address] [place] [address] ProviderJean MD [address] [place] [address] Social History Tobacco Use [...] on filedocumented in this encounter Care Teams Studio Artist Relationship Specialty Start Date End Date Maya Torres, ROSS CARRIER DRIVER [address] [phone] PCP - General Family Medicine 08/27/22 documented as of this encounter
--- OUTSIDE RECORDS SUMMARY | 2025-07-17 10:11 | XMS_ITS | Clinical Summary ---
Author Organization [facility] Address [address] [place] [address] Care Team Providers Care Section Repairer Name Role Phone Unavailable Primary Care Provider [...]
--- OUTSIDE RECORDS SUMMARY | 2025-07-17 10:11 | XMS_ITS | Encounter Summary ---
Author Organization [email or web address] ([place], [place], [place], [place], [place]) Address [address] [place] [address] Care Team Providers Care Senior Software Project Manager Name Role Phone Maya Torres Reji BELCHER Primary Care Provider +1- [phone] Encounter Details Date Type Department Care Team (Late st Contact Info) Description 10/27/2020 Transcribed Document [facility] [place] Family Medicine [address] [place] [address] ProviderJean MD [address] [place], [place] [id number] Social History Tobacco Use Types Packs/Day Years Used Date Smoking Tobacco: Never Assessed Sex and Gender Information Value Date Recorded Sex Assigned at Not on file Legal Sex Male 5:19 PM CDT Gender Identity Not on file Sexual Orientation Not on file documented as of this encounter Miscellaneous Notes * Cerner Conversion Note - Jean ProviderMD - 10/27/2020 11:59 AM CDT Barnes Suicide Severity Rating Scale (C-SSRS) Entered On: 10/27/2020 12:32 EDT Performed On: 10/27/2020 12:21 EDT by Jasmin Thornton RN Barnes Suicide Severity Rating Scale (C-SSRS) CSSRS Past [...] filedocumented in this encounter Care Teams Senior Software Project Manager Relationship Specialty Start Date End Date Maya Torres, FISHING TOOL OPERATOR [address] [phone] PCP - General Family Medicine 08/27/22 documented as of this encounter
--- OUTSIDE RECORDS SUMMARY | 2025-07-17 10:11 | XMS_ITS | Encounter Summary ---
Author Organization [employer] ([place], [place], [place], [place], [place]) Address [address] [place] [address] Care Team Providers Care Supervisor Metal Hanging Name Role Phone Maya Torres APRN Primary Care Provider +1- [phone] Encounter Details Date Type Department Care Team (Late st Contact Info) Description 10/30/2020 Transcribed Document [facility] [place] [facility] [place] [address] ProviderJean MD [address] [place] [address] Social History Tobacco Use Types [...] filedocumented in this encounter Care Teams Supervisor Metal Hanging Relationship Specialty Start Date End Date Maya Torres APRN [address] [facility] [address] [place] [address] PCP - General Family Medicine 08/27/22 documented as of this encounter
--- OUTSIDE RECORDS SUMMARY | 2025-07-17 10:11 | XMS_ITS | Encounter Summary ---
Author Organization [employer] ([place], [place], [place], [place], [place]) Address [address] [place] [address] Care Team Providers Care Feller Seam Operator Name Role Phone aMya Torres Reji BELCHER Primary Care Provider +1- [phone] Encounter Details Date Type Department Care Team (Late st Contact Info) Description 10/27/2020 Transcribed Document [facility] [place] Family [place] [facility] [address] ProviderJean MD [address] [place], [place] [address] Social History Tobacco Use Types Packs/Day Years [...] on filedocumented in this encounter Care Teams Feller Seam Operator Relationship Specialty Start Date End Date Maya Torres, REINSURANCE ACCOUNTANT [address] [phone] PCP - General Family Medicine 08/27/22 documented as of this encounter
--- OUTSIDE RECORDS SUMMARY | 2025-07-17 10:11 | XMS_ITS | Encounter Summary ---
Author Organization [employer] ([place], [place], [place], [place], [place]) Address [address] [place] [address] Care Team Providers Care Level Vial Setter Name Role Phone Maya Torres Reji BELCHER Primary Care Provider +1- [phone] Encounter Details Date Type Department Care Team (Late st Contact Info) Description 10/27/2020 Transcribed Document [facility] [place] [address] [place] [address] ProviderJean MD [address] [place] [address] Social History Tobacco Use Types [...] Sawant MD - 10/27/2020 6:36 PM CDT [facility] [place], [place] [id number] ISATU MENDIETA :1950 Visit Time:10/27/2020 Your Visit [...] do next Follow-Up Appointments Follow Up with MYAA TORRES When Within 2 to 3 days Where: [place] [address] [facility] (1) Allergies No Known Medication [...] 24HR 55 mcg/ inh nasal spray) 1 [place](s) Nasal Two Times A Day The home [...] and 14.9 ) ANC #: 12 K/uL [place] Percent Man: 2 % -- Normal range [...] ) Urine Bilirubin Dipstick: Negative Urine Specific [place]: 1.006 -- Normal range between ( 1.005 [...] or lying down. General instructions ??? Take ljmg-ulj-unaxsgu and prescription medicines only as told by [...] compression, and elevation. You may be given tbgu-ckq-achqvup medicines for pain. ??? Contact a health [...] provider. Document Revised: 02/22/2019 Document Reviewed: 02/22/2019 [employer] Patient Education ?? 2020 [employer]. Emergency Awareness and Preventative Care STROKE is [...] Assistance with quitting is available by contacting 7-372-HUPJ-NOW. This is a free resource providing counseling, [...] was given the opportunity to ask questions. Patient/Licensed Prosthetist Name: Patient/Licensed Prosthetist Signature: Relationship to Patient: Clinician/Hospital Licensed Prosthetist Signature: Please Provide a Telephone Number Where You Can Be Reached: Is it Permissible To Leave a Message? Date: documented in this encounter Plan of Treatment Not on file documented as of this encounter Visit Diagnoses Not on filedocumented in this encounter Care Teams Level Vial Setter Relationship Specialty Start Date End Date Maya Torres, SIMI [address] [phone] PCP - General Family Medicine 08/27/22 documented as of this encounter
--- OUTSIDE RECORDS SUMMARY | 2025-07-17 10:11 | XMS_ITS | Encounter Summary ---
Author Organization [employer] ([place], [place], [place], [place], [place]) Address [address] [place] [address] Care Team Providers Care Hide Trimmer Name Role Phone Maya Torres Reji BELCHER Primary Care Provider +1- [phone] Encounter Details Date Type Department Care Team (Late st Contact Info) Description 10/27/2020 Transcribed Document [facility] [place] Family Medicine [facility] [place] [address] ProviderJean MD [address] [place] [address] Social History Tobacco Use Types [...] on filedocumented in this encounter Care Teams Hide Trimmer Relationship Specialty Start Date End Date Maya Torres, GEOSCIENCE TECHNICIAN [address] [phone] PCP - General Family Medicine 08/27/22 documented as of this encounter
--- OUTSIDE RECORDS SUMMARY | 2025-07-17 10:11 | XMS_ITS | Encounter Summary ---
Author Organization [employer] ([place], [place], [place], [place], [place]) Address [address] [place] [address] Care Team Providers Care Stripping Cutter And Winder Name Role Phone Maya Torres Reji BELCHER Primary Care Provider +1- [phone] Encounter Details Date Type Department Care Team (Late st Contact Info) Description 10/27/2020 Transcribed Document [facility] [place] [address] [place] [address] ProviderJean MD [address] [place] [address] Social History Tobacco Use Types [...] 10/27/2020 12:55:00 EDT fentaNYL,50mcg IV Push,Left Antecubital [place] Pain Assessment Pain Scale Used : 0-10 [...] on filedocumented in this encounter Care Teams Stripping Cutter And Winder Relationship Specialty Start Date End Date Maya Torres, MRI CT TECH [address] [phone] PCP - General Family Medicine 08/27/22 documented as of this encounter
--- OUTSIDE RECORDS SUMMARY | 2025-07-17 10:11 | XMS_ITS | Encounter Summary ---
Author Organization [employer] ([place], [place], [place], [place], [place]) Address [address] [place] [address] Care Team Providers Care Enterprise Application Architect Name Role Phone Maya Torres Reji BELCHER Primary Care Provider +1- [phone] Encounter Details Date Type Department Care Team (Late st Contact Info) Description 10/27/2020 Transcribed Document [facility] [place] [facility] [place] [address] ProviderJean MD [address] [place] [address] Social History Tobacco Use Types [...] 12:04 EDT by Alina Easley Flex Team ship's pilot Triage Across the Room Chief Complaint : [...] Tetanus Immunization : Less than 5 years Enterprise Resource Planning Consultant Needed : No Alina Easley Flex [...] Problems(Active) At risk for sleep apnea (IMO :81944387 ) Name of Problem: At risk for sleep apnea ; Recorder: SYSTEM, SYSTEM; Confirmation: Confirmed ; Classification: Medical ; Code: [id number] ; Last Updated: 06/16/2018 8:18 EST ; Life Cycle Date: 06/16/2018 ; Life Cycle Status: Active ; Vocabulary: IMO Enlarged prostate (SNOMED CT :419677586 ) Name of Problem: Enlarged prostate ; Recorder: Shavonne Jimenez RN; Confirmation: Confirmed ; Classification: Medical ; Code: [id number] ; Contributor System: PowerChart ; Last Updated: 06/16/2018 8:22 EST ; Life Cycle Date: 06/16/2018 ; Life Cycle Status: Active ; Vocabulary: SNOMED CT Hypertension (SNOMED CT :8040575376 ) Name of Problem: Hypertension ; Recorder: Shavonne Jimenez RN; Confirmation: Confirmed ; Classification: Medical ; Code: [id number] ; Contributor System: PowerChart ; Last Updated: 06/16/2018 8:21 EST ; Life Cycle Date: 06/16/2018 ; Life Cycle Status: Active ; Vocabulary: SNOMED CT Seasonal allergies (SNOMED CT :5034005150 ) Name of Problem: Seasonal allergies ; Recorder: Shavonne Jimenez RN; Confirmation: Confirmed ; Classification: Medical ; Code: [id number] ; Contributor System: ANDA NetworksChart ; Last Updated: 06/16/2018 8:22 EST ; Life Cycle Date: 06/16/2018 ; Life Cycle Status: Active ; Vocabulary: SNOMED CT Diagnoses(Active) Medical screening exam Date: 10/27/2020 ; Diagnosis Type: Reason For Visit ; Confirmation: Complaint of ; Clinical Dx: Medical screening exam ; Classification: Medical ; Clinical Service: Non-Specified ; Code: PNED ; Probability: 0 ; Diagnosis Code: [id number] ED Height and Weight Height Source : Stated Height Entry Format : [place] Height, Feet : 5 ft(Converted to: 152 cm, 60 Inch) Height, Inches : 8 Inch(Converted to: 0 ft 8 Inch, 20.32 cm) Clinical Height : 172.72 cm Weight Source, ED : Critical estimated dosing weight Weight Entry Format : [place] Weight, Pounds : 250 lb Clinical Dosing Weight : 113.64 kg Body Surface Area (BSA) : 2.25 m2 Body Mass Index : 38.1 kg/m2 (HI) [place] Body Weight (IBW) : 67.45 kg Alina [...] in this encounter Care Teams Enterprise Application Architect Relationship Specialty Start Date End Date Maya Torres, SPEECH THERAPY TEACHER [address] [phone] PCP - General Family Medicine 08/27/22 documented as of this encounter
--- OUTSIDE RECORDS SUMMARY | 2025-07-17 10:11 | XMS_ITS | Clinical Summary ---
Author Organization [employer] ([place], [place], [place], [place], [place]) Address [address] [place] [address] Care Team Providers Care Key Punch Operator Name Role Phone Maya Torres APRN Primary Care Provider +1- [phone] Allergies No known active allergies Medications traZODone [...] Date Jan rded Speak language other than Chinese at home Not on file 08/04/2023 Want [...] 04/24/2019, 2017 Insurance MEDICARE PART A B [facility] Care Teams Key Punch Operator Relationship Specialty Start Date End Date Maya Torres, CONTRACT ADMINISTRATIVE ASSISTANT [address] [phone] PCP - General Family Medicine 08/27/22
--- OUTSIDE RECORDS SUMMARY | 2025-07-17 10:11 | XMS_ITS | Encounter Summary ---
Author Organization [employer] ([place], [place], [place], [place], [place]) Address [address] [place] [address] Care Team Providers Care User Experience Architect Name Role Phone Maya Torres APRN Primary Care Provider +1- [phone] Encounter Details Date Type Department Care Team (Late st Contact Info) Description 10/27/2020 Transcribed Document [facility] [place] [address] [place] [address] ProviderJean MD [address] [place] [address] Social History Tobacco Use Types [...] 10/27/2020 6:32 PM CDT Electronically signed by [facility] Conversion Program Technician Cerner at 11/04/2022 3:28 PM CDT documented in this encounter Plan of Treatment Not on file documented as of this encounter Visit Diagnoses Not on filedocumented in this encounter Care Teams User Experience Architect Relationship Specialty Start Date End Date Maya Torres APRN [address] [facility] [address] [place] [phone] PCP - General Family Medicine 08/27/22 documented as of this encounter
--- OUTSIDE RECORDS SUMMARY | 2025-07-17 10:12 | XMS_ITS | Encounter Summary ---
Author Organization [employer] ([place], [place], [place], [place], [place]) Address [address] [place] [address] Care Team Providers Care Restaurant Server Name Role Phone Maya Torres APRN Primary Care Provider +1- [phone] Encounter Details Date Type Department Care Team (Late st Contact Info) Description 10/18/2020 Transcribed Document [facility] [place] Family [place] [address] [place] [address] ProviderJean MD [address] [place] [address] Social History Tobacco Use Types [...] 10/18/2020 9:20 PM CDT Electronically signed by [facility] Conversion Blade Grinder Cerner at 11/04/2022 3:18 PM CDT documented in this encounter Plan of Treatment Not on file documented as of this encounter Visit Diagnoses Not on filedocumented in this encounter Care Teams Restaurant Server Relationship Specialty Start Date End Date Maya Torres APRN [address] [facility] [address] [place] [address] PCP - General Family Medicine 08/27/22 documented as of this encounter
--- OUTSIDE RECORDS SUMMARY | 2025-07-17 10:12 | XMS_ITS | Data Portability ---
Author Organization [employer] Address [address] [place] [address] Assessment No assessment recorded. Plan of Treatment Reminders Order Date Submit Date Provider Last Modified By Organization Details Last Modified Time Details Appointments SAME DAY ACCESS 2025 02:30P Nancy Torres APRN Not available Not available Not available FOLLOW UP 2025 10:30A M Stephanie Torres APRN Not available Not available Not available Lab lipid panel, serum 2024 025 [facility] [address] [place], [address], 03/09/2025 08:10:55 CBC w/ auto diff 2024 025 [facility] [address] [place], [address], 03/09/2025 08:10:54 TSH + free T4, serum 2024 025 [facility] [address] [place], [address], 03/09/2025 08:10:54 CMP, serum or plasma 2024 025 [facility] [address] [place], [address], 03/09/2025 08:10:55 HbA1c (hemoglob in A1c), blood 2024 025 [facility]), [address] [place], [address], 03/09/2025 08:10:56 vitamin D, 25-hydrox y, total, serum 2024 025 [facility]), [address] [place], [address], 03/09/2025 08:10:57 PSA, total, serum or plasma 2024 025 [facility]), [address] [place], [address], 03/09/2025 08:10:56 cobalamin and folate panel, serum 2024 025 [facility]), [address] [place], [address], 03/09/2025 08:10:56 drug screen, 14 drugs (detect ed), urine - Lorazepam last taken this AM. 2024 025 [facility]), [address] [place], [address], 10/04/2024 14:08:41 Referral None recorded. Procedures None recorded. Surgeries None recorded. Imaging None recorded. Medication Orders lorazepam 1 mg tablet 2024 [facility] (Now [facility]), [address], [place], [address], 05/09/2025 18:00:59 amoxicill in 875 mg-potass ium clavulana te 125 mg tablet 2024 [facility], [address] [place] [address], [address], 03/25/2025 05:01:32 duloxetin e 60 mg capsule,d elayed release 2024 [facility], [address] [facility], [place], [address], 02/01/2025 12:20:54 cetirizin e 10 mg tablet 2024 025 [facility], [address] [facility], [place], [address], 02/01/2025 12:20:59 fluticaso ne propionat e 50 mcg/actua tion nasal spray,kvng pension 2024 025 [facility], [address] [facility], [place], [address], 02/01/2025 12:20:55 finasteri de 5 mg tablet 2024 025 [facility], [address] [facility], [place], [address], 02/01/2025 12:20:56 tamsulosi n 0.4 mg capsule 2024 025 [facility], [address] [facility], [place], [address], 02/01/2025 12:20:55 prednison e 10 mg tablet 2024 025 [facility], [address] [facility], [place], [address], 02/01/2025 12:20:58 ipratropi um 0.5 mg-albute rol 3 mg (2.5 mg base)/3 mL nebulizat ion soln 2024 025 [facility], [address] [facility], [place], [address], 02/01/2025 12:20:58 prednison e 5 mg tablet 2024 025 [facility], [address] [facility], [place], [address], 02/01/2025 10:52:54 lorazepam 1 mg tablet 2024 025 [facility], [address] , [place], [address], 12/03/2024 14:16:48 pantopraz ole 40 mg tablet,de layed release 2024 025 [facility], [address] , [place], [address], 09/27/2024 11:49:11 Patient TargetsNo targets recorded. Patient Instructions Encounter Date Encounter Id Patient Instructions Last Modified By Organization Details Last Modified Time 09/27/2024 [id number] controlled substance agreement* Not available 09/27/2024 11:49:09 02/01/2025 [id number] learning about healthy weight [email or web address] Not available 02/01/2025 18:33:18 Reason for Referral [...] mirella consu ltati on, pleas e call [phone]. ===== ===== ===== ===== ===== ===== ===== ===== ===== ===== ===== ===== ===== === Not Available [facility] ([facility]) [address] [facility] [place], [address], 10/04/2024 14:08:41 09/28/19 25 10/04/2024 COMPL IANCE DRUG CHARISSA SIS, UR pdf . Not Available [facility] ([facility]) [address] [facility] [place], [address], 10/04/2024 14:08:41 03/08/20 25 03/09/2025 TSH+F REE T4 TSH 3.680 uIU/m L 0.450- 4.500 normal Not Available [facility] ([facility]) [address] [facility], [place], [address], 03/09/2025 08:10:54 03/08/20 25 03/09/2025 TSH+F REE T4 T4,free(dire ct) 0.89 NG/dL 0.82-1 .77 normal Not Available [facility] ([facility]) [address] [facility] [place], [address], 03/09/2025 08:10:54 03/08/20 25 03/09/2025 CBC WITH DIFFE RENTI AL/PL ATELE T WBC 8.4 x10e3 /uL 3.4-10 .8 normal Not Available [facility] ([facility]) [address] [place], [address], 03/09/2025 08:10:54 03/08/20 25 03/09/2025 CBC WITH DIFFE RENTI AL/PL ATELE T RBC 3.97 x10e6 /uL 4.14-5 .80 below low normal Not Available [facility] ([facility]) [address] [facility] [place], [address], 03/09/2025 08:10:54 03/08/20 25 03/09/2025 CBC WITH DIFFE RENTI AL/PL ATELE T hemoglobin 11.1 g/dL 13.0-1 7.7 below low normal Not Available [facility] ([facility]) [address] [place], [address], 03/09/2025 08:10:54 03/08/20 25 03/09/2025 CBC WITH DIFFE RENTI AL/PL ATELE T hematocrit 35.3 % 37.5-5 1.0 below low normal Not Available [facility] ([facility]) [address] [place], [address], 03/09/2025 08:10:54 03/08/2003/09/2025 CBC WITH DIFFE RENTI AL/PL ATELE T MCV 89 fL 79-97 normal Not Available [facility] ([facility]) [address] [place], [address], 03/09/2025 08:10:54 03/08/20 25 03/09/2025 CBC WITH DIFFE RENTI AL/PL ATELE T MCH 28.0 pg 26.6-3 3.0 normal Not Available [facility] ([facility]) [address] [place], [address], 03/09/2025 08:10:54 03/08/20 25 03/09/2025 CBC WITH DIFFE RENTI AL/PL ATELE T MCHC 31.4 g/dL 31.5-3 5.7 below low normal Not Available [facility] ([facility]) [address] [place], [address], 03/09/2025 08:10:54 03/08/20 25 03/09/2025 CBC WITH DIFFE RENTI AL/PL ATELE T RDW 14.4 % 11.6-1 5.4 Not Available [facility] ([facility]) [address] [place], [address], 03/09/2025 08:10:54 03/08/20 25 03/09/2025 CBC WITH DIFFE RENTI AL/PL ATELE T platelets 238 x10e3 /uL 150-45 0 normal Not Available [facility] ([facility]) [address] [place], [address], 03/09/2025 08:10:54 03/08/20 25 03/09/2025 CBC WITH DIFFE RENTI AL/PL ATELE T neutrophils 68 % not estab. normal Not Available [facility] ([facility]) [address] [place], [address], 03/09/2025 08:10:54 03/08/20 25 03/09/2025 CBC WITH DIFFE RENTI AL/PL ATELE T lymphs 18 % not estab. normal Not Available [facility] ([facility]) [address] [place], [address], 03/09/2025 08:10:54 03/08/20 25 03/09/2025 CBC WITH DIFFE RENTI AL/PL ATELE T monocytes 9 % not estab. normal Not Available [facility] ([facility]) [address] [place], [address], 03/09/2025 08:10:54 03/08/20 25 03/09/2025 CBC WITH DIFFE RENTI AL/PL ATELE T eos 3 % not estab. normal Not Available [facility] ([facility]) [address] [place], [address], 03/09/2025 08:10:54 03/08/20 25 03/09/2025 CBC WITH DIFFE RENTI AL/PL ATELE T basos 1 % not estab. normal Not Available [facility] ([facility]) [address] [place], [address], 03/09/2025 08:10:54 03/08/20 25 03/09/2025 CBC WITH DIFFE RENTI AL/PL ATELE T immature cells CHAIR UPHOLSTERER Not Available [facility] ([facility]) [address] [facility] [place], [address], 03/09/2025 08:10:54 03/08/20 25 03/09/2025 CBC WITH DIFFE RENTI AL/PL ATELE T neutrophils (absolute) 5.9 x10e3 /uL 1.4-7. 0 normal Not Available [facility] ([facility]) [address] [facility], [place], [address], 03/09/2025 08:10:54 03/08/20 25 03/09/2025 CBC WITH DIFFE RENTI AL/PL ATELE T lymphs (absolute) 1.5 x10e3 /uL 0.7-3. 1 normal Not Available [facility] ([facility]) [address] [facility], [place], [address], 03/09/2025 08:10:54 03/08/20 25 03/09/2025 CBC WITH DIFFE RENTI AL/PL ATELE T monocytes(ab solute) 0.8 x10e3 /uL 0.1-0. 9 normal Not Available [facility] ([facility]) [address] [place], [address], 03/09/2025 08:10:54 03/08/20 25 03/09/2025 CBC WITH DIFFE RENTI AL/PL ATELE T eos (absolute) 0.2 x10e3 /uL 0.0-0. 4 normal Not Available [facility] ([facility]) [address] [facility], [place], [address], 03/09/2025 08:10:54 03/08/20 25 03/09/2025 CBC WITH DIFFE RENTI AL/PL ATELE T baso (absolute) 0.1 x10e3 /uL 0.0-0. 2 normal Not Available [facility] ([facility]) [address] [place], [address], 03/09/2025 08:10:54 03/08/20 25 03/09/2025 CBC WITH DIFFE RENTI AL/PL ATELE T immature granulocytes 1 % not estab. Not Available [facility] ([facility]) [address] [facility], [place], [address], 03/09/2025 08:10:54 03/08/20 25 03/09/2025 CBC WITH DIFFE RENTI AL/PL ATELE T immature grans (abs) 0.1 x10e3 /uL 0.0-0. 1 Not Available [facility] ([facility]) [address] [facility], [place], [address], 03/09/2025 08:10:54 03/08/20 25 03/09/2025 CBC WITH DIFFE RENTI AL/PL ATELE T NRBC CHAIR UPHOLSTERER Not Available [facility] ([facility]) [address] [facility], [place], [address], 03/09/2025 08:10:54 03/08/20 25 03/09/2025 CBC WITH DIFFE RENTI AL/PL ATELE T hematology comments: CHAIR UPHOLSTERER Not Available [facility] ([facility]) [address] [facility], [place], [address], 03/09/2025 08:10:54 03/08/20 25 03/09/2025 COMP. METAB OLIC PANEL (14) glucose 84 mg/dL 70-99 normal Not Available [facility] ([facility]) [address] [place], [address], 03/09/2025 08:10:55 03/08/20 25 03/09/2025 COMP. METAB OLIC PANEL (14) BUN 12 mg/dL 8-27 normal Not Available [facility] ([facility]) [address] [place], [address], 03/09/2025 08:10:55 03/08/20 25 03/09/2025 COMP. METAB OLIC PANEL (14) creatinine 0.89 mg/dL 0.76-1 .27 normal Not Available [facility] ([facility]) [address] [facility], [place], [address], 03/09/2025 08:10:55 03/08/20 25 03/09/2025 COMP. METAB OLIC PANEL (14) eGFR 91 mL/mi n/1.7 3 >59 normal Not Available [facility] ([facility]) [address] [facility] [place], [address], 03/09/2025 08:10:55 03/08/20 25 03/09/2025 COMP. METAB OLIC PANEL (14) BUN/creatini ne ratio 13 10-24 normal Not Available [facility] ([facility]) [address] [facility] [place], [address], 03/09/2025 08:10:55 03/08/20 25 03/09/2025 COMP. METAB OLIC PANEL (14) sodium 139 mmol/ L 134-14 4 normal Not Available [facility] ([facility]) [address] [facility] [place], [address], 03/09/2025 08:10:55 03/08/20 25 03/09/2025 COMP. METAB OLIC PANEL (14) potassium 3.5 mmol/ L 3.5-5. 2 normal Not Available [facility] ([facility]) [address] [facility] [place], [address], 03/09/2025 08:10:55 03/08/20 25 03/09/2025 COMP. METAB OLIC PANEL (14) chloride 103 mmol/ L 96-106 normal Not Available [facility] ([facility]) [address] [facility] [place], [address], 03/09/2025 08:10:55 03/08/20 25 03/09/2025 COMP. METAB OLIC PANEL (14) carbon dioxide, total 21 mmol/ L 20-29 normal Not Available [facility] ([facility]) [address] [facility] [place], [address], 03/09/2025 08:10:55 03/08/20 25 03/09/2025 COMP. METAB OLIC PANEL (14) calcium 8.8 mg/dL 8.6-10 .2 normal Not Available [facility] ([facility]) [address] [facility] [place], [address], 03/09/2025 08:10:55 03/08/20 25 03/09/2025 COMP. METAB OLIC PANEL (14) protein, total 6.7 g/dL 6.0-8. 5 normal Not Available [facility] ([facility]) [address] [facility] [place], [address], 03/09/2025 08:10:55 03/08/20 25 03/09/2025 COMP. METAB OLIC PANEL (14) albumin 4.2 g/dL 3.8-4. 8 normal Not Available [facility] ([facility]) [address] [facility] [place], [address], 03/09/2025 08:10:55 03/08/20 25 03/09/2025 COMP. METAB OLIC PANEL (14) globulin, total 2.5 g/dL 1.5-4. 5 Not Available [facility] ([facility]) [address] [facility] [place], [address], 03/09/2025 08:10:55 03/08/20 25 03/09/2025 COMP. METAB OLIC PANEL (14) bilirubin, total 0.6 mg/dL 0.0-1. 2 normal Not Available [facility] ([facility]) [address] [facility] [place], [address], 03/09/2025 08:10:55 03/08/20 25 03/09/2025 COMP. METAB OLIC PANEL (14) alkaline phosphatase 61 IU/L 44-121 normal Not Available [facility] ([facility]) [address] [facility] [place], [address], 03/09/2025 08:10:55 03/08/20 25 03/09/2025 COMP. METAB OLIC PANEL (14) AST (SGOT) 18 IU/L 0-40 normal Not Available [facility] ([facility]) [address] [facility] [place], [address], 03/09/2025 08:10:55 03/08/20 25 03/09/2025 COMP. METAB OLIC PANEL (14) ALT (SGPT) 14 IU/L 0-44 normal Not Available [facility] ([facility]) [address] [facility] [place], [address], 03/09/2025 08:10:55 03/08/20 25 03/09/2025 LIPID PANEL cholesterol, total 144 mg/dL 100-19 9 normal Not Available [facility] ([facility]) [address] [place], [address], 03/09/2025 08:10:55 03/08/20 25 03/09/2025 LIPID PANEL triglyceride s 165 mg/dL 0-149 above high normal Not Available [facility] ([facility]) [address] [place], [address], 03/09/2025 08:10:55 03/08/20 25 03/09/2025 LIPID PANEL HDL cholesterol 40 mg/dL >39 normal Not Available [facility] ([facility]) [address] [place], [address], 03/09/2025 08:10:55 03/08/20 25 03/09/2025 LIPID PANEL VLDL cholesterol mirella 28 mg/dL 5-40 Not Available [facility] ([facility]) [address] [place], [address], 03/09/2025 08:10:55 03/08/20 25 03/09/2025 LIPID PANEL LDL chol calc ([email or web address] 76 mg/dL 0-99 Not Available [facility] ([facility]) [address] [place], [address], 03/09/2025 08:10:55 03/08/2003/09/2025 LIPID PANEL LDL calc comment: CHAIR UPHOLSTERER Not Available [facility] ([facility]) [address] [facility], [place], [address], 03/09/2025 08:10:55 03/08/20 25 03/09/2025 VITAM IN B12 AND FOLAT E vitamin B12 399 pg/mL 232-12 45 normal Not Available [facility] ([facility]) [address] [facility], [place], [address], 03/09/2025 08:10:56 03/08/2003/09/2025 VITAM IN B12 AND FOLAT E folate (folic acid), serum 5.0 NG/mL >3.0 normal A serum folat e scar ntrat ion of less than 3.1 ng/mL is consi dered to repre sent clini mirella defic iency . Not Available [facility] ([facility]) [address] [facility], [place], [address], 03/09/2025 08:10:56 03/08/2003/09/2025 HEMOG LOBIN A1C hemoglobin A1C 5.7 % 4.8-5. 6 above high normal Predi abete s: 5.7 - 6.4 Diabe sami: >6.4 Glyce mathew contr ol for adult s with diabe sami: <7.0 Not Available [facility] ([facility]) [address] [facility], [place], [address], 03/09/2025 08:10:56 03/08/2003/09/2025 PROST ATE-S PECIF IC [...] jadyn restrepo se. Not Available [facility] ([facility]) [address] [facility], [place], [address], 03/09/2025 08:10:56 03/08/2003/09/2025 VITAM IN D, 25-HY [...] Evelio amaya [place]: [facility] . 2. Myah rose [place], Romana laurent [place], Ambrose off-F errar i RODRIGES, et al. Evalu ation , treat ment, and preve ntion of vitam in D defic iency : an Endoc rine Socie ty clini mirella pract ice guide line. JCEM. 2010; 96(7) :1911 -30. Not Available [facility] ([facility]) [address] [facility], [place], [address], 03/09/2025 08:10:57 Result Notes None recorded. Problems Name Problem SNOMED Code Status Onset Date Resolution Date Notes Provider Name and Address Organization Details Recorded Time Generali zed anxiety disorder 30364531 Completed 201609/21/2016 Problem Code: F41.1; Problem Code Type: ICD-10; Maya Torres, [employer] [address] [place], [address] , [employer] 3 11:40:35 Allergic rhinitis caused by pollen [id number] Completed 201610/08/2016 Problem Code: J30.1; Problem Code Type: ICD-10; Not Available [facility] 2 21:50:51 Pain in right knee Completed 201608/23/2016 Problem Code: M25.561; Problem Code Type: ICD-10; Not Available [facility] 2 21:50:53 Pain in left knee Completed 201608/23/2016 Problem Code: M25.562; Problem Code Type: ICD-10; Not Available [facility] 2 21:51:03 Knee pain Completed 201608/23/2016 Problem Code: 719.46; Problem Code Type: ICD-9; JUAN ANTONIO mortensen, [employer] 2 11:16:05 Acute sinusiti s [id number] Completed 201610/05/2016 Problem Code: J01.90; Problem Code Type: ICD-10; JUAN ANTONIO mortensen, [employer] 2 11:16:05 Pain in right knee Completed 201611/04/2016 Problem Code: M25.561; Problem Code Type: ICD-10; Not Available [facility] 2 21:50:53 Prepatel lar bursitis of right knee [id number] Completed 201612/20/2016 Not Available [facility] 2 21:50:54 Knee pain Completed 201611/04/2016 Problem Code: 719.46; Problem Code Type: ICD-9; JUAN ANTONIO mortensen [employer] 2 11:16:05 Prepatel lar bursitis 23017011 Completed 201612/20/2016 Problem Code: 726.65; Problem Code Type: ICD-9; Not Available [facility] 2 21:51:17 Pain in right knee Completed 201612/13/2016 Problem Code: M25.561; Problem Code Type: ICD-10; Not Available [facility] 2 21:51:02 Knee pain Completed 201612/13/2016 Problem Code: 719.46; Problem Code Type: ICD-9; JUAN ANTONIO mortensen [employer] 2 11:16:05 Allergic rhinitis 36658252 Completed 201603/11/2017 Problem Code: J30.9; Problem Code Type: ICD-10; Not Available [facility] 2 21:50:51 Allergic rhinitis 09014015 Completed 201605/06/2017 Problem Code: J30.9; Problem Code Type: ICD-10; Not Available [facility] 2 21:50:51 Allergic rhinitis caused by pollen [id number] Completed 201608/02/2017 Problem Code: J30.1; Problem Code Type: ICD-10; Not Available [facility] 2 21:50:51 Hyperten sive disorder 74896273 Completed 201708/30/2017 Problem Code: I10; Problem Code Type: ICD-10; Not Available [facility] 2 21:50:50 Acute sinusiti s 48058618 Completed 201708/12/2017 Problem Code: J01.90; Problem Code Type: ICD-10; JUAN ANTONIO mortensen [employer] 2 11:16:05 Benign essentia l hyperten marquis 9201176 Completed 201701/17/2018 Problem Code: 401.1; Problem Code Type: ICD-9; Not Available [facility] 2 21:51:06 Tinea pedis 0708378 Completed 201711/25/2017 Problem Code: B35.3; Problem Code Type: ICD-10; Not Available [facility] 2 21:50:48 Neck pain 58947210 Completed 201711/25/2017 Not Available [facility] 21:50:53 Hyperest hesia 19936102 Completed 201711/25/2017 Problem Code: R20.3; Problem Code Type: ICD-10; Not Available [facility] 2 21:50:55 Skin sensatio n disturba nce 60488645 Completed 201711/25/2017 Problem Code: 782.0; Problem Code Type: ICD-9; Not Available [facility] 2 21:51:11 Acquired deformit y of toe 36052619 Completed 201701/09/2021 Problem Code: 735.8; Problem Code Type: ICD-9; Not Available [facility] 21:51:11 Onychomy cosis due to dermatop hyte 241865082 Completed 201711/25/2017 Problem Code: 110.1; Problem Code Type: ICD-9; Not Available [facility] 2 21:51:15 Acute sinusiti s 91076276 Completed 201701/31/2018 Problem Code: J01.90; Problem Code Type: ICD-10; JUAN ANTONIO mortensen, [place] [employer] 11:16:05 Non-neop lastic nevus [id number] Completed 201706/28/2019 Not Available [facility] 21:50:58 Large prostate 023966902 Completed 201703/10/2018 Problem Code: N40.0; Problem Code Type: ICD-10; Not Available [facility] 2 21:51:05 Generali zed atherosc lerosis 18804243 Completed 201701/09/2021 Problem Code: 440.9; Problem Code Type: ICD-9; Not Available [facility] 2 21:51:08 Benign prostati c hyperpla mel 737868878 Completed 201701/09/2021 Problem Code: 600.00; Problem Code Type: ICD-9; Not Available [facility] 2 21:51:09 Lacerati on of finger with foreign body 348322530 Completed 201704/25/2018 Problem Code: S61.222A ; Problem Code Type: ICD-10; Not Available [facility] 21:50:56 Pre-surg marjorie evaluati on Completed 201704/25/2018 Not Available [facility] 21:50:58 Open wound of finger with complica tion 98634529 Completed 201704/25/2018 Problem Code: 883.1; Problem Code Type: ICD-9; Not Available [facility] 21:51:10 Abnormal weight gain 218670570 Completed 201705/09/2018 Problem Code: R63.5; Problem Code Type: ICD-10; Not Available [facility] 21:50:55 Mixed hyperlip idemia 930469935 Completed 201701/09/2021 Problem Code: 272.2; Problem Code Type: ICD-9; Tamar mortensen, [employer] 5 09:56:03 Anemia of chronic disease 110857685 Completed 201706/28/2019 Problem Code: D63.8; Problem Code Type: ICD-10; Not Available [facility] 21:50:49 Prostate specific antigen above referenc e range 821671229 Completed 201705/12/2018 Problem Code: R97.20; Problem Code Type: ICD-10; Not Available [facility] 21:50:56 Iron deficien cy anemia secondar y to inadequa te dietary iron intake 382814731 Completed 201705/27/2018 Problem Code: D50.8; Problem Code Type: ICD-10; Not Available [facility] 21:50:49 Ulcerati ve pancolit is 173716175 Completed 201706/28/2019 Problem Code: K51.00; Problem Code Type: ICD-10; Not Available [facility] 21:50:52 Abscess of limb 924356107 Completed 201705/27/2018 Problem Code: L02.415; Problem Code Type: ICD-10; Not Available [facility] 2 21:51:00 Abscess of leg, except foot 13593119 Completed 201705/27/2018 Not Available [facility] 2 21:51:10 Ulcerati ve colitis 41443722 Completed 201701/09/2021 Problem Code: 556.6; Problem Code Type: ICD-9; Not Available [facility] [facility] 2 21:51:16 Anemia due to chronic blood loss 602334827 Active 2017 Problem Code: D50.0; Problem Code Type: ICD-10; Not Available [facility] 21:50:49 Ulcerati ve pancolit is 694562443 Completed 201706/28/2019 Problem Code: K51.00; Problem Code Type: ICD-10; Not Available [facility] 2 21:50:52 Ulcerati ve colitis 88494964 Completed 201701/09/2021 Problem Code: 556.6; Problem Code Type: ICD-9; Not Available [facility] 2 21:51:17 Acute posthemo rrhagic anemia 975539025 Completed 201706/12/2018 Problem Code: D62; Problem Code Type: ICD-10; Not Available [facility] 2 21:50:49 Acute posthemo rrhagic anemia 950919698 Completed 201706/17/2018 Problem Code: D62; Problem Code Type: ICD-10; Not Available [facility] 2 21:50:49 Acute posthemo rrhagic anemia 549957323 Completed 201706/24/2018 Problem Code: D62; Problem Code Type: ICD-10; Not Available [facility] 2 21:50:49 Pain in right knee Completed 201705/01/2018 Problem Code: M25.561; Problem Code Type: ICD-10; Not Available [facility] 2 21:50:53 Pain in left knee Completed 201705/01/2018 Problem Code: M25.562; Problem Code Type: ICD-10; Not Available [facility] 2 21:50:54 Knee pain Completed 201705/04/2022 Problem Code: 719.46; Problem Code Type: ICD-9; JUAN ANTONIO BROWNNER festus, [employer] 2 11:16:05 Acute sinusiti s 06742851 Completed 201707/03/2018 Problem Code: J01.90; Problem Code Type: ICD-10; JUAN ANTONIO BROWNNER [employer], [employer]. 2 11:16:05 Acute bronchit is 70514715 Completed 201708/18/2018 Problem Code: J20.9; Problem Code Type: ICD-10; Not Available [facility] 2 21:50:51 Idiopath ic osteoart hritis 386906586 Active 2018 Problem Code: M17.0; Problem Code Type: ICD-10; Not Available [facility] 2 21:51:01 Allergic sensitiz ation 931071633 Completed 201805/04/2022 JUAN ANTONIO mortensen, [employer] 2 11:16:05 Mixed hyperlip idemia 013487220 Active 2018 Problem Code: E78.2; Problem Code Type: ICD-10; Tamar Durham [employer], [employer] 5 09:56:03 Large prostate 428273645 Active 2018 Problem Code: N40.0; Problem Code Type: ICD-10; Not Available [facility] 2 21:50:54 Dysthymi a 71803629 Active 2018 Problem Code: R53.81; Problem Code Type: ICD-10; Not Available [facility] 2 21:51:11 Primary insomnia 4417940 Active 2018 Problem Code: F51.01; Problem Code Type: ICD-10; Not Available [facility] 2 21:50:50 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 46192543 Active 2018 Problem Code: M50.00; Problem Code Type: ICD-10; Not Available [facility] 21:50:54 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 96388715 Active 2018 Problem Code: G90.09; Problem Code Type: ICD-10; Not Available [facility] 21:50:50 Pain in left knee Active 2018 Problem Code: M25.562; Problem Code Type: ICD-10; Not Available [facility] 2 21:50:53 Post-mahesh gical wound care Completed 201805/04/2022 Problem Code: Z48.02; Problem Code Type: ICD-10; JUAN ANTONIO mortensen [employer] 11:16:05 Body mass index 30+ - obesity 426444066 Active 2018 Problem Code: Z68.35; Problem Code Type: ICD-10; Not Available [facility] 21:50:59 Diabetes mellitus screenin g Completed 201805/04/2022 Problem Code: Z13.1; Problem Code Type: ICD-10; JUAN ANTONIO mortensen [employer]. 11:16:05 Body mass index 30+ - obesity 113393182 Completed 201807/17/2020 Problem Code: Z68.35; Problem Code Type: ICD-10; Not Available [facility] 2 21:51:01 Atelecta [facility] 89108504 Completed 201812/14/2019 Problem Code: J98.11; Problem Code Type: ICD-10; Not Available [facility] 21:50:52 General examinat ion of patient Completed 201806/28/2019 JUAN ANTONIO mortensen [employer]. 2 11:16:05 Body mass index 30+ - obesity 012763774 Completed 201807/17/2020 Problem Code: Z68.35; Problem Code Type: ICD-10; Not Available [facility] 21:51:01 Body mass index 30+ - obesity 735977290 Completed 201807/17/2020 Problem Code: Z68.35; Problem Code Type: ICD-10; Not Available [facility] 2 21:51:00 Body mass index 30+ - obesity 112413851 Completed 201907/17/2020 Problem Code: Z68.36; Problem Code Type: ICD-10; Not Available [facility] 2 21:51:13 Disorder of skin and/or subcutan eous tissue 68227869 Completed 201905/04/2022 JUAN ANTONIO mortensen, [employer]. 11:16:05 Body mass index 30+ - obesity 747488246 Completed 201907/17/2020 Problem Code: Z68.36; Problem Code Type: ICD-10; Not Available [facility] 2 21:51:00 General examinat ion of patient Completed 201905/04/2022 JUAN ANTONIO ARELLANO [employer], [employer] 2 11:16:05 General examinat ion of patient Completed 202009/15/2020 JUAN ANTONIO EILEEN [employer], [employer]. 11:16:05 Body mass index 30+ - obesity 023482094 Completed 202009/15/2020 Problem Code: Z68.36; Problem Code Type: ICD-10; Not Available [facility] 2 21:51:14 Cough 95489222 Completed 202004/02/2021 Problem Code: R05; Problem Code Type: ICD-10; Not Available [facility] 21:50:54 Acute sinusiti s 49118985 Completed 202005/04/2022 Problem Code: J01; Problem Code Type: ICD-10; JUAN ANTONIO mortensen, [employer] 2 11:16:05 Eruption 638325554 Completed 202005/04/2022 Problem Code: R21; Problem Code Type: ICD-10; JUAN ANTONIO mortensen, [employer] 2 11:16:05 Contusio n of anterior abdomina l wall 371556344 Completed 202005/04/2022 JUAN ANTONIO mortensen, [employer] 2 11:16:05 Malignan t neoplasm of skin 511989944 Completed 202004/02/2021 Problem Code: C44.90; Problem Code Type: ICD-10; Not Available [facility] 2 21:50:49 Allergic rhinitis 38531636 Active 2020 Problem Code: J30.9; Problem Code Type: ICD-10; Not Available [facility] 21:50:52 Abrasion of skin of palm of hand 871014602 Completed 202109/24/2021 Not Available [facility] 21:50:56 Current drug user 345600406 Active 2021 Problem Code: Z79.899; Problem Code Type: ICD-10; Not Available [facility] 2 21:51:02 Acute frontal sinusiti s 14996314 Completed 202105/04/2022 Problem Code: J01.1; Problem Code Type: ICD-10; JUAN ANTONIO mortensen, [employer] 2 11:16:06 Generali zed anxiety disorder 57931625 Active 2022 Problem Code: F41.1; Problem Code Type: ICD-10; Maya Torres APRN [address] [place] [address], [address] , [employer] 3 11:40:35 Problem Notes None recorded. Procedures Surgical History Date Name Laterality Status Provider Name and Address Organization Details Recorded Time 7 hernia repair completed Not Available [facility] 03/23/2022 22:56:15 Imaging Results None recorded. Procedure [...] Updated DateTime 5 175.26 cm 37.7 kg/m2 552495. 05 g 87 /min 94 % 192/72 mm[Hg] 158/78 mm[Hg] 132/76 mm[Hg] Tamar Durham [facility] [employer] 5 11:32:00 Date Recorded Body height Body mass index (BMI) Body weight Heart rate Oxygen saturation Systolic And Diastolic Provider Name and Address Organization Details Last Updated DateTime 5 175.26 cm 38.3 kg/m2 794280. 82 g 96 /min 92 % 130/80 mm[Hg] Tamar Durham [employer] 5 13:49:03 Date Recorded Body height Body mass index (BMI) Body weight Heart rate Oxygen saturation Systolic And Diastolic Provider Name and Address Organization Details Last Updated DateTime 5 175.26 cm 36.9 kg/m2 674048. 09 g 101 /min 92 % 130/79 mm[Hg] Tamar Durham [employer] 5 10:51:45 Date Recorded Body height Body mass index (BMI) Body weight Body temperature Heart rate Oxygen saturation Systolic And Diastolic Provider Name and Address Organization Details Last Updated DateTime 5 175.26 cm 36.9 kg/m2 665763. 09 g 97.3 [degF] 71 /min 90 % 138/81 mm[Hg] Tamar [employer] 5 08:44:21 Date Recorded Body height Body mass index (BMI) Body weight Heart rate Oxygen saturation Systolic And Diastolic Provider Name and Address Organization Details Last Updated DateTime 5 175.26 cm 36.8 kg/m2 630217. 5 g 83 /min 91 % 134/85 mm[Hg] Tamar [employer] 5 10:47:28 Social History Question Answer Notes LastModified by Organizat ion Details LastModified Time Tobacco Smoking Status Former Smoker JUAN ANTONIO mortensen [employer]. 05/04/2022 11:17:53 Do You Have An Advance Directive? No [email or web address] Information n ot available 06/04/2022 Are You Blind Or Do You Have Difficulty Seeing? No [email or web address] Information n ot available 05/04/2022 What Is Your Level Of Caffeine Consumption? Moderate Information not available 11/30/2022 Are You A Caregiver? No [email or web address] Information not available 06/04/2022 In The 14 [...] Do You Have Serious Difficulty Hearing? No [email or web address] Information not available 05/04/2022 What Type Of Diet Are You Following? REGULAR [email or web address] Information n ot available 06/04/2022 Have There Been Any Changes To Your Family Or Social Situation? No [email or web address] Information no t available 06/04/2022 When Did You Quit Smoking? 6-10yearssinc elastcigarett e Information not available 06/01/2024 Do You Have A Medical Power Of Beaming Inspector? No [email or web address] Information not available 06/04/2022 What Was The Date Of Your Most Recent Tobacco Screening? 05/09/2025 Information not available 05/09/2025 What Is Your Current Pack Years? 20-29packyear s Information not available 05/04/2022 What Is Your Relationship Status? [email or web address] Information not available 05/04/2022 Do You Use Your Seat Belt Or Car Seat Routinely? Yes [email or web address] Information not available 06/04/2022 Do You Have Smoke And Carbon Monoxide Detectors In Your Home? Yes [email or web address] Information not available 06/04/2022 How Much Tobacco Do You Smoke? 1 PPD Information not available 06/01/2024 Do You Use Sunscreen Routinely? No [email or web address] Information not available 06/04/2022 Have You Recently Traveled Abroad? No [email or web address] Information not available 06/04/2022 Do You Have Difficulty Walking Or Climbing Stairs? No [email or web address] Information not available 05/04/2022 Are You Currently In School? No [email or web address] Information not available 06/04/2022 Do You Have Any Dietary Restrictions? No Information not available 06/04/2022 Sex: Male Functional Status Question Answer Note LastModified by Organizat ion Details LastModified Time Do you use any illicit or recreational drugs? No Information not available 11/30/2022 What is your level of alcohol consumption? None [email or web address] Information not available 05/04/2022 Are you currently employed? No [email or web address] Information not available 06/04/2022 Do you have transportation difficulties? No [email or web address] Information not available 05/04/2022 Are you able to walk independently without assistance or assistive devices? YES[employer]OREST [email or web address] Information not available 05/04/2022 Do you have difficulty doing errands alone? No [email or web address] Information not available 05/04/2022 Are you able to care for yourself independently? Yes [email or web address] Information not available 05/04/2022 Do you have difficulty dressing, bathing, grooming, or toileting? No [email or web address] Information not available 05/04/2022 What is your exercise level? None [email or web address] Information not available 06/04/2022 Mental Status Question Answer Note LastModified by Organization D etails LastModified Time Do you have difficulty concentrating, remembering or making decisions? No [email or web address] Information no t available 05/04/2022 Family History Relationship Description Onset Age of this Age Resolved Age Notes LastModified by Organization Details LastModified Time Unspecified Relation Family history of Hypertension [email or web address] Not available 11:16:26 Unspecified Relation Family history of malignant neoplasm [email or web address] Not available 05/04 11:16:34 Unspecified Relation Family history of polyp of colon [email or web address] Not available 05/04 11:16:39 Medical History Condition Response Allergies (Food, seasonal, environmental ) Y Hypertension Y GI Problems Y Immunizations Vaccine Type Date Status Note Provider Name and Address Organization Details Recorded Time zoster recombinant 024 cancelled patient objection Maya Torres APRN [address] [place], [address], [employer] 10/03/2023 13:15:21 pneumococcal polysaccharide PPV23 019 completed Tamar mortensen [employer] 05/09/2025 10:23:09 Pneumococcal conjugate PCV 13 018 completed Tamar Durham null, [employer] 05/09/2025 10:23:09 COVID-19, mRNA, LNP-S, PF, 100 mcg/0.5mL dose or 50 mcg/0.25mL dose 021 completed Tamar Durham null, [employer] 05/09/2025 10:23:09 COVID-19, mRNA, LNP-S, PF, 100 mcg/0.5mL dose or 50 mcg/0.25mL dose 021 completed Tamar Durham null, [employer] 05/09/2025 10:23:09 COVID-19, mRNA, LNP-S, PF, 100 mcg/0.5mL dose or 50 mcg/0.25mL dose 021 completed Tamar Durham null, [employer] 05/09/2025 10:23:09 Influenza, high-dose, trivalent, PF 019 completed JUAN ANTONIO ARELLANO null, [employer] 07/02/2022 11:24:10 Influenza, split virus, trivalent, PF 017 completed JUAN ANTONIO ARELLANO null, [employer] 07/02/2022 11:24:10 Influenza, MDCK, quadrivalent, PF 016 completed JUAN ANTONIO ARELLANO null, [employer] 07/02/2022 11:24:10 Tdap 016 completed JUAN ANTONIO ARELLANO null, [employer] 07/02/2022 11:24:10 Influenza, high-dose, trivalent, PF 018 completed JUAN ANTONIO ARELLANO null, [employer] 07/02/2022 11:24:10 COVID-19, mRNA, LNP-S, bivalent, PF, 50 mcg/0.5 mL or 25mcg/0.25 mL dose 022 completed JUAN ANTONIO mortensen, [employer] 07/02/2022 11:24:10 Influenza, high-dose, quadrivalent, PF 022 completed JUAN ANTONIO mortensen, [employer] 07/02/2022 11:24:10 Influenza, high-dose, quadrivalent, PF 021 completed JUAN ANTONIO mortensen [employer] 07/02/2022 11:24:10 RSV, recombinant, protein subunit RSVpreF, adjuvant reconstituted, 0.5 mL, PF 023 completed Not Available [facility] 05/09/2025 10:21:48 Influenza, high-dose, quadrivalent, PF 023 completed Not Available [facility] 05/09/2025 10:21:48 Influenza, high-dose, trivalent, PF 024 completed Not Available [facility] 05/09/2025 10:21:48 Pneumococcal conjugate PCV20, polysaccharide USD080 conjugate, adjuvant, PF 025 completed Not Available [facility] 05/09/2025 10:21:48 Influenza, high-dose, trivalent, PF 025 completed Not Available [facility] 05/09/2025 10:21:48 Influenza, high-dose, quadrivalent, PF 020 completed Tamar mortensen, [place] [employer] 05/09/2025 10:23:09 Past Encounters Encounter ID Performer Location Encounter Start Date Encounter Closed Date Diagnosis/Indication Diagnosis SNOMED-CT Code Diagnosis ICD10 Code Diagnosis IMO Codes Diagnosis Note [id number] Maya Torres [address] [address] 05/04/2022 11:06:44 05/04/2022 11:36:23 Dysthymia 58200092 R53.81 Idiopathic peripheral autonomic neuropathy 98774603 G90.09 [id number] Maya Torres [address] [address] 06/04/2022 10:50:55 06/04/2022 11:05:53 Idiopathic peripheral autonomic neuropathy 56572630 G90.09 Anxiety 16116560 F41.9 Allergic rhinitis 756880 04 J30.9 Body mass index 30+ - obesity 122064992 Z68.38 Acute sinusitis 37021672 J01.90 Dysthymia 24053431 R53.8 1 [id number] [place] [address] 07/02/2022 11:05:52 07/02/2022 11:41:18 Idiopathic peripheral autonomic neuropathy 24167539 G90.09 Mixed hyperlipidemia 267 436017 E78.2 Anxiety 89933070 F41.9 Body mass index 30+ - obesity 898328767 Z68.38 [id number] [place] [address] 07/15/2022 10:31:53 07/15/2022 13:11:18 Acute upper respiratory infection 09915491 J06.9 [id number] [place] [address] 0 08/02/2022 11:24:44 08/02/2022 11:46:36 Anxiety 26303804 F41.9 Allergic rhinitis 769586 04 J30.9 Idiopathic peripheral autonomic neuropathy 01897930 G90.09 Body mass index 30+ - obesity 660384986 Z68.38 [id number] [place] [address] 09/02/2022 11:07:10 09/02/2022 11:51:01 Dysthymia 29490478 R53.81 Anxiety 66090098 F41.9 Idiopathic peripheral autonomic neuropathy 46272536 G90.09 Body mass index 30+ - obesity 694030594 Z68.38 [id number] Maya Torres [place] [address] 0 10/01/2022 11:06:15 10/01/2022 11:37:36 Idiopathic peripheral autonomic neuropathy 29869665 G90.09 Anxiety 99683115 F41.9 Acute sinusitis 02367835 J01.90 [id number] [place] [address] 11/01/2022 10:18:50 11/01/2022 10:51:54 Cough 71296452 R05.9 Wheezing 03755916 R06.2 Idiopathic peripheral autonomic neuropathy 06903610 G90.09 Anxiety 88212929 F41.9 Body mass index 30+ - obesity 387208810 Z68.38 [id number] Maya Torres [address] 0 11/30/2022 10:11:55 11/30/2022 10:33:30 Gastroesophageal reflux disease without esophagitis 493760738 K21.9 Anxiety 22959294 F41.9 Idiopathic peripheral autonomic neuropathy 43258294 G90.09 Allergic rhinitis 977616 04 J30.9 [id number] Maya Torres [place] [address] 0 12/31/2022 10:19:21 12/31/2022 11:25:07 Fatigue 59227672 R53.83 Mixed hyperlipidemia 267 414530 E78.2 Nocturia 865163639 R35.1 Long-term drug therapy 789937882 Z79.899 Idiopathic peripheral autonomic neuropathy 39142271 G90.09 Anxiety 87100576 F41.9 Body mass index 30+ - obesity 078153244 Z68.38 [id number] [place] [address] 01/31/2023 10:35:26 01/31/2023 11:13:41 Idiopathic peripheral autonomic neuropathy 36199460 G90.09 Anxiety 00166783 F41.9 [id number] [place] [address] 03/03/2023 10:21:47 03/03/2023 10:54:56 Idiopathic peripheral autonomic neuropathy 13464360 G90.09 Anxiety 44770410 F41.9 Body mass index 30+ - obesity 243527175 Z68.38 [id number] [place] [address] 04/04/2023 11:25:04 04/04/2023 11:54:55 Allergic rhinitis 95545634 J30.9 Anxiety 24482341 F41.9 Idiopathic peripheral autonomic neuropathy 73054310 G90.09 Body mass index 30+ - obesity 236822836 Z68.38 [id number] [place] [address] 06/03/2023 10:34:54 06/03/2023 11:28:21 Dyspnea on exertion 43565348 R06.09 Essential hypertension 90565687 I10 Mixed hyperlipidemia 267 873383 E78.2 Idiopathic peripheral autonomic neuropathy 54022014 G90.09 Generalize d anxiety disorder 66457438 F41.1 Body mass index 30+ - obesity 732249305 Z68.38 [id number] [place] [address] 08/04/2023 10:38:40 08/04/2023 11:02:33 Dyspnea on exertion 43842336 R06.09 Anxiety 24839105 F41.9 Idiopathic peripheral autonomic neuropathy 16213260 G90.09 Body mass index 30+ - obesity 626170343 Z68.38 [id number] [place] [address] 0 10/03/2023 10:34:44 10/03/2023 11:27:11 Long-term drug therapy 706381264 Z79.899 Body mass index 30+ - obesity 665404513 Z68.38 Adult [facility] th examination 276165669 Z00.[address] vaccination declined 7235624004 102 Z28.20 Anxiety 70274178 F41.9 Idiopathic peripheral autonomic neuropathy 19424129 G90.09 Large prostate 719968089 N40.0 Mixed hyperlipidemia 267 993158 E78.2 Fatigue 04485881 R53.83 Chronic cough 19525342 R 05.3 [id number] Maya Torres, [employer] [place] [address] 12/02/2023 10:24:11 12/02/2023 11:04:47 Pain of left hip joint 1155365918 77829 M25.552 Anxiety 02480965 F41.9 Idiopathic peripheral autonomic neuropathy 64779498 G90.09 Body mass index 30+ - obesity 340537530 Z68.38 [id number] [place] [address] 01/31/2024 10:36:29 01/31/2024 11:31:01 Idiopathic peripheral autonomic neuropathy 68328454 G90.09 Anxiety 47565280 F41.9 Pain of le ft hip joint 2267495174 26501 M25.552 Body mass index 30+ - obesity 745516460 Z68.38 [id number] [place] [address] 04/03/2024 10:26:32 04/03/2024 10:52:47 Pain of left hip joint 5250085326 90023 M25.552 Idiopathic peripheral autonomic neuropathy 86495397 G90.09 Generalize d anxiety disorder 23089434 F41.1 Body mass index 30+ - obesity 411197472 Z68.38 [id number] [place] [address] 06/01/2024 13:40:03 06/01/2024 14:09:33 Idiopathic osteoarthritis 690853743 M17.0 Acute sinusitis 38651117 J01.90 Generalize d anxiety disorder 31499838 F41.1 Idiopathic peripheral autonomic neuropathy 53918080 G90.09 Body mass index 30+ - obesity 335495557 Z68.38 [id number] Maya Torres [place] [address] 07/31/2024 10:27:29 07/31/2024 13:01:30 Generalized anxiety disorder 60260367 F41.1 Pneumonia 653732103 J18. 9 Chronic ob structive pulmonary disease 39654088 J44.9 Abdominal pain 60992610 R10.9 Fatigue 59068004 R53.83 Hyperlipidemia 66615418 E78.5 Hyperglycemia 54195158 R 73.9 Vitamin D deficiency 347 08787 E55.9 Vitamin B deficiency 479 40627 E53.9 Nocturia 061132605 R35.1 Iron defic iency anemia 92799323 D50.9 Body mass index 30+ - obesity 145653174 Z68.38 [id number] [place] [address] 09/27/2024 11:09:36 09/27/2024 11:58:20 Long-term drug therapy 925055355 Z79.899 Gastroesop hageal reflux disease without esophagitis 648755698 K21.9 Generalize d anxiety disorder 73180023 F41.1 Body mass index 30+ - obesity 041394949 Z68.38 [id number] [place] [address] 12/03/2024 13:33:16 12/03/2024 14:18:36 Generalized anxiety disorder 11427880 F41.1 Idiopathic osteoarthritis 627160066 M17.0 Body mass index 30+ - obesity 650795962 Z68.38 625870 [id number] [place] [address] 02/01/2025 10:37:10 02/01/2025 11:13:22 Generalized anxiety disorder 10336744 F41.1 controlled substance agreement and drug screen UTD at this time. Body mass index 30+ - obesity 914829087 Z68.38 706147 Allergic rhinitis 822371 04 J30.9 Dysthymia 58989138 R53.8 1 Large prostate 082593491 N40.0 Chronic ob structive pulmonary disease 43687424 J44.9 Pain of mu ltiple joints 66164661 M25.50 [id number] [place] [address] 03/08/2025 08:21:58 03/08/2025 10:43:55 Acute bacterial sinusitis 51821281 J01.90 B96.89 17867 Fatigue 67072595 R53.83 2792690 Mixed hyperlipidemia 267 438461 E78.2 20376 Hyperglycemia 36275793 R 73.9 09526 Nocturia 177782074 R35.1 90082 Vitamin D deficiency 347 85226 E55.9 14374 Cobalamin deficiency 190 941879 E53.8 16645 History an d physical examination, annual for health maintenance 79605549 Z00.00 1029205259 Body mass index 30+ - obesity 637679759 Z68.36 [id number] [place] [id number] 05/09/2025 10:20:23 05/09/2025 11:27:11 Generalized anxiety disorder 93894776 F41.1 controlled substance agreement and drug screen UTD at this time. Essential hypertension 01000647 I10 Gastroesop hageal reflux disease without esophagitis 960852892 K21.9 Allergic rhinitis 228475 04 J30.9 Body mass index 30+ - obesity 546997417 Z68.36 539817 Health Concerns Section Related Observation LastModified by Organization Detai ls LastModified Time None Recorded Concern Status LastModified by Organization Details LastModified Time None Recorded Advance Directives Directive N: Payers Insurance Date Sequence Insurance Name Policy Number Policy Sutherland Covered Member ID Sutherland Member ID Guarantor Name 12/05/2024 [place] [employer] - [facility] Stephane Mendieta [id number] Stephane Mendieta 05/06/2025 [place] [employer] [place] [facility] Stephane Mendieta [id number] Stephane Mendieta 05/06/2025 2 [employer] SU[employer]LEMENTAL - [employer] (MEDICARE SUPPLEMENT) Stephane Mendieta [id number] Stephane Mendieta 05/06/2025 1 [place] Stephane Mendieta [id number] Stephane Mendieta Notes Date Note Type Note Provider Name and Address Organization Details Recorded Time 09/27/2024 text/html 73 year old male presents for chronic disease fu. Denies acute concerns at this time. [facility] pulm gave him samples of trelegy but is unable to afford it monthly. Will give him samples today. States cough has improved. He recently got refill on lorazepam since he forgot to request febs refill. He is to let us know when he need his next refill. pt agrees Maya Torres APRN [address] [place], [address], [employer], [employer] 09/27/2024 12:37:03 12/03/2024 text/html pt here today for medication refills. pt states hes doing well on current medication regime and has no new complaints today. pt states that he has recently had more skin cancers removed, and needs another one removed. he is having spinal sx again the first of december to replace a lead. Maya Torres APRN [address] [place], [address], [employer], [employer] 12/03/2024 15:29:36 02/01/2025 text/html pt here today [...] he doesnt care. Maya Torres APRN [address] [place], [address], [employer] 02/01/2025 12:22:29 03/08/2025 text/html Annual WellnessReported [...] fluids. return for worsening symptoms. Tamar mortensen, [employer] 03/08/2025 10:12:47 05/09/2025 text/html pt here today for medication refills. pt states hes doing well on current medication regime and has no new complaints today. pt requested more trelegy samples and i gave him 4. Maya Torres, SIMI [address] [place], [address], [facility] [employer] 05/09/2025 18:02:01
--- OUTSIDE RECORDS SUMMARY | 2025-07-17 10:12 | XMS_ITS | Encounter Summary ---
Author Organization [employer] ([place], [place], [place], [place], [place]) Address [address] [place] [address] Care Team Providers Care Grooming Salon Manager Name Role Phone Maya Torres Reji BELCHER Primary Care Provider [phone] Encounter Details Date Type Department Care Team (Late st Contact Info) Description 10/18/2020 Transcribed Document [facility] Family Medicine [address] [place] [address] ProviderJean MD [address] [place], [place] [address] Social History Tobacco Use Types Packs/Day Years Used Date Smoking Tobacco: Never Assessed Sex and Gender Information Value Date Recorded Sex Assigned at Not on file Legal Sex Male 5:19 PM CDT Gender Identity Not on file Sexual Orientation Not on file documented as of this encounter Miscellaneous Notes * Cerner Conversion Note - Jean ProviderMD - 10/18/2020 7:05 PM CDT [place] Suicide Severity Rating Scale (C-SSRS) Entered On: 10/18/2020 19:42 EDT Performed On: 10/18/2020 19:41 EDT by Dee Ocampo RN [place] Suicide Severity Rating Scale (C-SSRS) CSSRS Past [...] on filedocumented in this encounter Care Teams Grooming Salon Manager Relationship Specialty Start Date End Date Maya Torres, [employer] [address] [id number] PCP - General Family Medicine 08/27/22 documented as of this encounter
--- OUTSIDE RECORDS SUMMARY | 2025-07-17 10:12 | XMS_ITS | Continuity of Care Document ---
Author Organization [employer] [facility] Address [address] [place] [address] Assessment No assessment recorded. Plan of Treatment [...] Orders lorazepam 1 mg tablet 2024 025 [facility][note 3] Pharmacy Mail Delivery (Now [facility]), [address] [facility], [place], [address], 05/09/2025 18:00:59 Patient TargetsNo targets recorded. Patient InstructionsNo instructions recorded. Reason for Referral None Reported. Problems Name Problem SNOMED Code Status Onset Date Resolution Date Notes Provider Name and Address Organization Details Recorded Time Generali zed anxiety disorder [id number] Completed 201609/21/2016 Problem Code: F41.1; Problem Code Type: ICD-10; Maya Torres APRN [address] [place], [address] , [employer] 3 11:40:35 Allergic rhinitis caused by pollen 92757898 Completed 201610/08/2016 Problem Code: J30.1; Problem Code Type: ICD-10; Not Available [facility] 2 21:50:51 Pain in right knee Completed 201608/23/2016 Problem Code: M25.561; Problem Code Type: ICD-10; Not Available [facility] 21:50:53 Pain in left knee Completed 201608/23/2016 Problem Code: M25.562; Problem Code Type: ICD-10; Not Available [facility] 21:51:03 Knee pain Completed 201608/23/2016 Problem Code: 719.46; Problem Code Type: ICD-9; JUAN ANTONIO mortensen[employer]. 11:16:05 Acute sinusiti s 60875185 Completed 201610/05/2016 Problem Code: J01.90; Problem Code Type: ICD-10; JUAN ANTONIO mortensen, [employer] 11:16:05 Pain in right knee Completed 201611/04/2016 Problem Code: M25.561; Problem Code Type: ICD-10; Not Available [facility] 21:50:53 Prepatel lar bursitis of right knee [id number] 9100 Completed 201612/20/2016 Not Available [facility] 21:50:54 Knee pain Completed 201611/04/2016 Problem Code: 719.46; Problem Code Type: ICD-9; JUAN ANTONIO mortensen [employer] 11:16:05 Prepatel lar bursitis 33407281 Completed 201612/20/2016 Problem Code: 726.65; Problem Code Type: ICD-9; Not Available [facility] 21:51:17 Pain in right knee Completed 201612/13/2016 Problem Code: M25.561; Problem Code Type: ICD-10; Not Available [facility] 21:51:02 Knee pain Completed 201612/13/2016 Problem Code: 719.46; Problem Code Type: ICD-9; JUAN ANTONIO mortensen [employer] 10/18/202 2 11:16:05 Allergic rhinitis 89943317 Completed 201603/11/2017 Problem Code: J30.9; Problem Code Type: ICD-10; Not Available [facility] 2 21:50:51 Allergic rhinitis 55080648 Completed 201605/06/2017 Problem Code: J30.9; Problem Code Type: ICD-10; Not Available [facility] 2 21:50:51 Allergic rhinitis caused by pollen 92451873 Completed 201608/02/2017 Problem Code: J30.1; Problem Code Type: ICD-10; Not Available [facility] 2 21:50:51 Hyperten sive disorder 32092871 Completed 201708/30/2017 Problem Code: I10; Problem Code Type: ICD-10; Not Available [facility] 2 21:50:50 Acute sinusiti s 47691138 Completed 201708/12/2017 Problem Code: J01.90; Problem Code Type: ICD-10; JUAN ANTONIO mortensen [employer] 11:16:05 Benign essentia l hyperten marquis 7273646 Completed 201701/17/2018 Problem Code: 401.1; Problem Code Type: ICD-9; Not Available [facility] 2 21:51:06 Tinea pedis 7965169 Completed 201711/25/2017 Problem Code: B35.3; Problem Code Type: ICD-10; Not Available [facility] 2 21:50:48 Neck pain 13652259 Completed 201711/25/2017 Not Available [facility] 2 21:50:53 Hyperest hesia 71826370 Completed 201711/25/2017 Problem Code: R20.3; Problem Code Type: ICD-10; Not Available [facility] 2 21:50:55 Skin sensatio n disturba nce 28957454 Completed 201711/25/2017 Problem Code: 782.0; Problem Code Type: ICD-9; Not Available [facility] 2 21:51:11 Acquired deformit y of toe 38246347 Completed 201701/09/2021 Problem Code: 735.8; Problem Code Type: ICD-9; Not Available [facility] 2 21:51:11 Onychomy cosis due to dermatop hyte 855767319 Completed 201711/25/2017 Problem Code: 110.1; Problem Code Type: ICD-9; Not Available [facility] 2 21:51:15 Acute sinusiti s 18367993 Completed 201701/31/2018 Problem Code: J01.90; Problem Code Type: ICD-10; JUAN ANTONIO mortensen, [employer] 11:16:05 Non-neop lastic nevus 822586484 Completed 201706/28/2019 Not Available [facility] 2 21:50:58 Large prostate 648853735 Completed 201703/10/2018 Problem Code: N40.0; Problem Code Type: ICD-10; Not Available [facility] 2 21:51:05 Generali zed atherosc lerosis 00702620 Completed 201701/09/2021 Problem Code: 440.9; Problem Code Type: ICD-9; Not Available [facility] 2 21:51:08 Benign prostati c hyperpla mel 669316798 Completed 201701/09/2021 Problem Code: 600.00; Problem Code Type: ICD-9; Not Available [facility] 2 21:51:09 Lacerati on of finger with foreign body 635439756 Completed 201704/25/2018 Problem Code: S61.222A ; Problem Code Type: ICD-10; Not Available [facility] 2 21:50:56 Pre-surg marjorie evaluati on Completed 201704/25/2018 Not Available [facility] 2 21:50:58 Open wound of finger with complica tion 68521153 Completed 201704/25/2018 Problem Code: 883.1; Problem Code Type: ICD-9; Not Available [facility] 21:[facility]:10 Abnormal weight gain 834054860 Completed 201705/09/2018 Problem Code: R63.5; Problem Code Type: ICD-10; Not Available [facility] 21:50:55 Mixed hyperlip idemia 001077769 Completed 201701/09/2021 Problem Code: 272.2; Problem Code Type: ICD-9; Tamar mortensen [facility] [employer] [facility]. 09:56:03 Anemia of chronic disease 472689425 Completed 201706/28/2019 Problem Code: D63.8; Problem Code Type: ICD-10; Not Available [facility] 21:50:49 Prostate specific antigen above referenc e range 227222666 Completed 201705/12/2018 Problem Code: R97.20; Problem Code Type: ICD-10; Not Available [facility] 21:50:56 Iron deficien cy anemia secondar y to inadequa te dietary iron intake 235907846 Completed 201705/27/2018 Problem Code: D50.8; Problem Code Type: ICD-10; Not Available [facility] 21:50:49 Ulcerati ve pancolit is 664492816 Completed 201706/28/2019 Problem Code: K51.00; Problem Code Type: ICD-10; Not Available [facility] 21:50:52 Abscess of limb 162082716 Completed 201705/27/2018 Problem Code: L02.415; Problem Code Type: ICD-10; Not Available [facility] 21:51:00 Abscess of leg, except foot 49192776 Completed 201705/27/2018 Not Available [facility] 21:51:10 Ulcerati ve colitis 69314928 Completed 201701/09/2021 Problem Code: 556.6; Problem Code Type: ICD-9; Not Available [facility] 21:51:16 Anemia due to chronic blood loss 030615790 Active 2017 Problem Code: D50.0; Problem Code Type: ICD-10; Not Available [facility] 2 21:50:49 Ulcerati ve pancolit is 691614211 Completed 201706/28/2019 Problem Code: K51.00; Problem Code Type: ICD-10; Not Available [facility] 2 21:50:52 Ulcerati ve colitis 22642639 Completed 201701/09/2021 Problem Code: 556.6; Problem Code Type: ICD-9; Not Available [facility] 2 21:51:17 Acute posthemo rrhagic anemia 174739298 Completed 201706/12/2018 Problem Code: D62; Problem Code Type: ICD-10; Not Available [facility] 2 21:50:49 Acute posthemo rrhagic anemia 950616546 Completed 201706/17/2018 Problem Code: D62; Problem Code Type: ICD-10; Not Available [facility] 2 21:50:49 Acute posthemo rrhagic anemia 323074204 Completed 201706/24/2018 Problem Code: D62; Problem Code Type: ICD-10; Not Available [facility] 2 21:50:49 Pain in right knee Completed 201705/01/2018 Problem Code: M25.561; Problem Code Type: ICD-10; Not Available [facility] 2 21:50:53 Pain in left knee Completed 201705/01/2018 Problem Code: M25.562; Problem Code Type: ICD-10; Not Available [facility] 2 21:50:54 Knee pain Completed 201705/04/2022 Problem Code: 719.46; Problem Code Type: ICD-9; JUAN ANTONIO mortensen [employer] 2 11:16:05 Acute sinusiti s 64289201 Completed 201707/03/2018 Problem Code: J01.90; Problem Code Type: ICD-10; JUAN ANTONIO mortensen [employer] 11:16:05 Acute bronchit is 46165615 Completed 201708/18/2018 Problem Code: J20.9; Problem Code Type: ICD-10; Not Available [facility] 2 21:50:51 Idiopath ic osteoart hritis 805401875 Active 2018 Problem Code: M17.0; Problem Code Type: ICD-10; Not Available [facility] 2 21:51:01 Allergic sensitiz ation 096848240 Completed 201805/04/2022 JUAN ANTONIO mortensen, [facility] 11:16:05 Mixed hyperlip idemia 083338699 Active 2018 Problem Code: E78.2; Problem Code Type: ICD-10; Tamar mortensen, [facility] [employer] 5 09:56:03 Large prostate 517306240 Active 2018 Problem Code: N40.0; Problem Code Type: ICD-10; Not Available [facility] 2 21:50:54 Dysthymi a 46141187 Active 2018 Problem Code: R53.81; Problem Code Type: ICD-10; Not Available [facility] 21:51:11 Primary insomnia 3706493 Active 2018 Problem Code: F51.01; Problem Code Type: ICD-10; Not Available [facility] 2 21:50:50 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 11:16:05 Body mass index 30+ - obesity 152480251 Active 2018 Problem Code: Z68.35; Problem Code Type: ICD-10; Not Available [facility] 2 21:50:59 Diabetes mellitus screenin g Completed 201805/04/2022 Problem Code: Z13.1; Problem Code Type: ICD-10; JUAN ANTONIO mortensen [employer] 2 11:16:05 Body mass index 30+ - obesity 594260948 Completed 201807/17/2020 Problem Code: Z68.35; Problem Code Type: ICD-10; Not Available [facility] 21:51:01 Atelecta sis 14892238 Completed 201812/14/2019 Problem Code: J98.11; Problem Code Type: ICD-10; Not Available [facility] 2 21:50:52 General examinat ion of patient Completed 201806/28/2019 JUAN ANTONIO mortensen [employer] 2 11:16:05 Body mass index 30+ - obesity 232146279 Completed 201807/17/2020 Problem Code: Z68.35; Problem Code Type: ICD-10; Not Available [facility] 2 21:51:01 Body mass index 30+ - obesity 184579248 Completed 201807/17/2020 Problem Code: Z68.35; Problem Code Type: ICD-10; Not Available [facility] 2 21:51:00 Body mass index 30+ - obesity 513218343 Completed 201907/17/2020 Problem Code: Z68.36; Problem Code Type: ICD-10; Not Available [facility] 2 21:51:13 Disorder of skin and/or subcutan eous tissue 66969251 Completed 201905/04/2022 JUAN ANTONIO mortensen, [employer] 11:16:05 Body mass index 30+ - obesity 284827082 Completed 201907/17/2020 Problem Code: Z68.36; Problem Code Type: ICD-10; Not Available [facility] 21:51:00 General examinat ion of patient Completed 201905/04/2022 JUAN ANTONIO mortensen, [employer] 11:16:05 General examinat ion of patient Completed 202009/15/2020 JUAN ANTONIO mortensen, [employer] 11:16:05 Body mass index 30+ - obesity 201999993 Completed 202009/15/2020 Problem Code: Z68.36; Problem Code Type: ICD-10; Not Available [facility] 21:51:14 Cough 70012338 Completed 202004/02/2021 Problem Code: R05; Problem Code Type: ICD-10; Not Available [facility] 21:50:54 Acute sinusiti s 47574123 Completed 202005/04/2022 Problem Code: J01; Problem Code Type: ICD-10; JUAN ANTONIO mortensen, [employer] 11:16:05 Eruption 457100666 Completed 202005/04/2022 Problem Code: R21; Problem Code Type: ICD-10; JUAN ANTONIO mortensen, [employer]. 11:16:05 Contusio n of anterior abdomina l wall 359812744 Completed 202005/04/2022 JUAN ANTONIO mortensen, [employer]. 11:16:05 Malignan t neoplasm of skin 038764672 Completed 202004/02/2021 Problem Code: C44.90; Problem Code Type: ICD-10; Not Available [facility] 09/05/202 2 21:50:49 Allergic rhinitis 96332407 Active 2020 Problem Code: J30.9; Problem Code Type: ICD-10; Not Available [facility] 2 21:50:52 Abrasion of skin of palm of hand 288865994 Completed 202109/24/2021 Not Available [facility] 2 21:50:56 Current drug user 145924578 Active 2021 Problem Code: Z79.899; Problem Code Type: ICD-10; Not Available [facility] 2 21:51:02 Acute frontal sinusiti s 29197356 Completed 202105/04/2022 Problem Code: J01.1; Problem Code Type: ICD-10; JUAN ANTONIO mortensen, [employer] 2 11:16:06 Generali zed anxiety disorder 69841466 Active 2022 Problem Code: F41.1; Problem Code Type: ICD-10; Maya Torres, SIMI [address] [place] [address], [address] , [employer] 3 11:40:35 Problem Notes None recorded. Procedures Surgical History Date Name Laterality Status Provider Name and Address Organization Details Recorded Time 7 hernia repair completed Not Available [facility] 03/23/2022 22:56:15 Imaging Results None recorded. [...] Updated DateTime 5 175.26 cm 36.8 kg/m2 028282. 5 g 83 /min 91 % 134/85 mm[Hg] Tamar Durham [employer] 5 10:47:28 Social History Question Answer Notes LastModified by Organizat ion Details LastModified Time Tobacco Smoking Status Former Smoker JUAN ANTONIO mortensen, [employer], [employer] 05/04/2022 11:17:53 Do You Have An Advance Directive? No [email or web address] Information n ot available 06/04/2022 Are You Blind Or Do You Have Difficulty Seeing? No [email or web address] Information n ot available 05/04/2022 What Is Your Level Of Caffeine Consumption? Moderate Information not available 11/30/2022 Are You A Caregiver? No [email or web address] Information not available 06/04/2022 In The 14 [...] Type Of Diet Are You Following? REGULAR [email or web address] Information n ot available 06/04/2022 Have There Been Any Changes To Your Family Or Social Situation? No [email or web address] Information no t available 06/04/2022 When Did You Quit Smoking? 6-10yearssinc elastcigarett e Information not available 06/01/2024 Do You Have A Medical Power Of Adobe Layer Helper? No [email or web address] Information not available 06/04/2022 What Was The Date Of Your Most Recent Tobacco Screening? 05/09/2025 Information not available 05/09/2025 What Is Your Current Pack Years? 20-29packyear s [email or web address] Information not available 05/04/2022 What Is Your Relationship Status? [email or web address] Information not available 05/04/2022 Do You Use Your Seat Belt Or Car Seat Routinely? Yes [email or web address] Information not available 06/04/2022 Do You Have Smoke And Carbon Monoxide Detectors In Your Home? Yes [email or web address] Information not available 06/04/2022 How Much Tobacco Do You Smoke? 1 PPD Information not available 06/01/2024 Do You Use Sunscreen Routinely? No [email or web address] Information not available 06/04/2022 Have You Recently Traveled Abroad? No [email or web address] Information not available 06/04/2022 Do You Have Difficulty Walking Or Climbing Stairs? No [email or web address] Information not available 05/04/2022 Are You Currently In School? No [email or web address] Information not available 06/04/2022 Do You Have Any Dietary Restrictions? No [email or web address] Information not available 06/04/2022 Sex: Male Functional Status Question Answer Note LastModified by Organizat ion Details LastModified Time Do you use any illicit or recreational drugs? No Information not available 11/30/2022 What is your level of alcohol consumption? None [email or web address] Information not available 05/04/2022 Are you currently employed? No [email or web address] Information not available 06/04/2022 Do you have transportation difficulties? No [email or web address] Information not available 05/04/2022 Are you able to walk independently without assistance or assistive devices? [email or web address] Information not available 05/04/2022 Do you have difficulty doing errands alone? No [email or web address] Information not available 05/04/2022 Are you able to care for yourself independently? Yes Information not available 05/04/2022 Do you have difficulty dressing, bathing, grooming, or toileting? No Information not available 05/04/2022 What is your exercise level? None [email or web address] Information not available 06/04/2022 Mental Status Question Answer Note LastModified by Organization D etails LastModified Time Do you have difficulty concentrating, remembering or making decisions? No [email or web address] Information no t available 05/04/2022 Family History Relationship Description Onset Age of this Age Resolved Age Notes LastModified by Organization Details LastModified Time Unspecified Relation Family history of Hypertension [email or web address] Not available 11:16:26 Unspecified Relation Family history of malignant neoplasm [email or web address] Not available 05/04 11:16:34 Unspecified Relation Family history of polyp of colon [email or web address] Not available 05/04 11:16:39 Medical History Condition Response Allergies (Food, seasonal, environmental ) Y Hypertension Y GI Problems Y Immunizations Vaccine Type Date Status Note Provider Name and Address Organization Details Recorded Time zoster recombinant 024 cancelled patient objection Maya Torres APRN [address] [place], [address], [employer] 10/03/2023 13:15:21 pneumococcal polysaccharide PPV23 019 completed Tamar mortensen, [employer] 05/09/2025 10:23:09 Pneumococcal conjugate PCV 13 10/08/2 018 completed Tamar Durham null, [employer] 05/09/2025 10:23:09 COVID-19, mRNA, LNP-S, PF, 100 mcg/0.5mL dose or 50 mcg/0.25mL dose 021 completed Tamar Castellony null, [employer] 05/09/2025 10:23:09 COVID-19, mRNA, LNP-S, PF, 100 mcg/0.5mL dose or 50 mcg/0.25mL dose 021 completed Tamar Castellony null, [employer] 05/09/2025 10:23:09 COVID-19, mRNA, LNP-S, PF, 100 mcg/0.5mL dose or 50 mcg/0.25mL dose 021 completed Tamar Marva null, [employer] 05/09/2025 10:23:09 Influenza, high-dose, trivalent, PF 019 completed JUAN ANTONIO EILEEN null, [employer] 07/02/2022 11:24:10 Influenza, split virus, trivalent, PF 017 completed JUAN ANTONIO EILEEN null, [employer] 07/02/2022 11:24:10 Influenza, MDCK, quadrivalent, PF completed JUAN ANTONIO EILEEN null, [employer] 07/02/2022 11:24:10 Tdap 016 completed JUAN ANTONIO EILEEN null, [employer] 07/02/2022 11:24:10 Influenza, high-dose, trivalent, PF 018 completed JUAN ANTONIO EILEEN null, [employer] 07/02/2022 11:24:10 COVID-19, mRNA, LNP-S, bivalent, PF, 50 mcg/0.5 mL or 25mcg/0.25 mL dose 022 completed JUAN ANTONIO EILEEN null, [employer] 07/02/2022 11:24:10 Influenza, high-dose, quadrivalent, PF 022 completed [facility] ANTONIO mortensen, [facility] 07/02/2022 11:24:10 Influenza, high-dose, quadrivalent, PF 021 completed [facility] AN[facility]ensen [facility] 07/02/2022 11:24:10 RSV, recombinant, protein subunit RSVpreF, adjuvant reconstituted, 0.5 mL, PF 023 completed Not Available [facility] 05/09/2025 10:21:48 Influenza, high-dose, quadrivalent, PF 023 completed Not Available [facility] 05/09/2025 10:21:48 Influenza, high-dose, trivalent, PF 024 completed Not Available [facility] 05/09/2025 10:21:48 Pneumococcal conjugate PCV20, polysaccharide [id number] conjugate, adjuvant, PF 025 completed Not Available [facility] 05/09/2025 10:21:48 Influenza, high-dose, trivalent, PF 025 completed Not Available [facility] 05/09/2025 10:21:48 Influenza, high-dose, quadrivalent, PF 020 completed Tamar mortensen, [facility] 05/09/2025 10:23:09 Past Encounters Encounter ID Performer Location Encounter Start Date Encounter Closed Date Diagnosis/Indication Diagnosis SNOMED-CT Code Diagnosis ICD10 Code Diagnosis IMO Codes Diagnosis Note [id number] Maya Torres [address] [address] 05/09/2025 10:20:23 05/09/2025 11:27:11 Generalized anxiety disorder 30079466 F41.1 controlled substance agreement and drug screen UTD at this time. Essential hypertension 07094824 I10 Gastroesop hageal reflux disease without esophagitis 586338801 K21.9 Allergic rhinitis 300159 04 J30.9 Body mass index 30+ - obesity 732425283 Z68.36 163885 Health Concerns Section Related Observation LastModified by Organization Detai ls LastModified Time None Recorded Concern Status LastModified by Organization Details LastModified Time None Recorded Payers Encounter Date Sequence Insurance Name Policy Number Policy Sutherland Covered Member ID Sutherland Member ID Guarantor Name 05/09/2025 2 [employer] - [employer] (MEDICARE SUPPLEMENT) Stephane Lozano Anam [id number] Stephane Mendieta 05/09/2025 1 [place] Stephane Mendieta [id number] Stephane Mendieta Notes Date Note Type Note Provider Name and Address Organization Details Recorded Time 05/09/2025 text/html pt here today for medication refills. pt states hes doing well on current medication regime and has no new complaints today. pt requested more trelegy samples and i gave him 4. Maya Torres, MARKETING COORDINATOR [address] [facility], [place], [address], [facility] [employer] 05/09/2025 18:02:01
--- OUTSIDE RECORDS SUMMARY | 2025-07-17 10:13 | XMS_ITS | Encounter Summary ---
Author Organization [employer] ([place], [place], [place], [place], [place]) Address [address] [place] [address] Care Team Providers Care Bottom Cager Name Role Phone Maya Torres Reji BELCHER Primary Care Provider [phone] Encounter Details Date Type Department Care Team (Late st Contact Info) Description 10/18/2020 Transcribed Document [facility] Family Medicine [facility] [place] [address] ProviderJean MD [address] [place] [address] Social History Tobacco Use Types Packs/Day Years [...] 10/18/2020 21:39 EDT Electronically signed by Ileana [facility] [employer] at 11/04/2022 3:31 PM CDT documented in this encounter Plan of Treatment Not on file documented as of this encounter Visit Diagnoses Not on filedocumented in this encounter Care Teams Bottom Cager Relationship Specialty Start Date End Date Maya Torres, ARCHITECTURAL MANAGER [address] [address] PCP - General Family Medicine 08/27/22 documented as of this encounter
--- OUTSIDE RECORDS SUMMARY | 2025-07-17 10:13 | XMS_ITS | Patient Health Record ---
Author Organization [facility] Address [address] [facility] [address] [place] [address] Care Team Providers Care Zookeeper Name Role Phone Jerome Morrissey II Unavailable [phone] Michael COLEMAN -Issa Barry MD Unavailable [phone] Allergies No Known Allergies Reason For Referral [...] Status Risk Notes Problem Chronic pain syndrome (530536334) Chronic pain syndrome (G89.4) Active confirmed Problem Complex regional pain syndrome of lower limb (disorder) (706451287) Complex regional pain syndrome I of unspecified lower limb (G90.529) Active confirmed Problem Cervical spondylosis without myelopathy (276453239) Other spondylosis with radiculopathy, cervical region (M47.22) Active confirmed Problem Cervical spondylosis without myelopathy (201565435) Spondylosis without myelopathy or radiculopathy, cervical region (M47.812) Active confirmed Problem Lumbosacral spondylosis without myelopathy (49793910) Spondylosis without myelopathy or radiculopathy, lumbar region (M47.816) Active confirmed Problem Cervicalgia (11608804) Cervicalgia (M54.2) Active confirmed Problem Post-laminectom y syndrome (06151409) Postlaminectomy syndrome, not elsewhere classified (M96.1) Active confirmed Problem Long-term current use of drug therapy (047202619) Other manager intermediate (current) drug therapy (Z79.899) Active confirmed Problem Lumbar spondylosis (493482920) lumbar spondylosis (M47.816) Active confirmed Vital Signs Heart Rate 80 /min 10/19/2024 Blood pressure diastolic 75 mm Hg 10/19/2024 Height 69 in 10/19/2024 Blood pressure systolic 158 mm Hg 10/19/2024 Weight 250 lbs 10/19/2024 BMI 36.91 kg/m2 10/19/2024 Encounters Encounter Location Date Provider Diagnosis [facility] [address] [facility] [address] [place] [address] 10/19/2024 Jerome Morrissey Other fpc (current) drug therapy [...] once again for the long-term. 10/19/2024 Other manager intermediate (current) drug therapy (ICD-10 - Z79.899) 04/02/2024 1. Discontinue [place] 5/325mg QD PRN 2. FU PRn Mr. [...] Coverage End [place] [address] [place] [address] [id number] Stephane Mendieta Self - patient is the insured 8 [employer] Medicare Supplement [address] [place] [phone] [id number] Stephane Mendieta Self - patient is the insured 8 Medical (General) History Medical History History ICD Code anxiety / Managed by PCP Surgical History Surgery Date(Month/Year) Back surgery / Dr. Rodriguez 09/2019 right knee replacement
--- OUTSIDE RECORDS SUMMARY | 2025-07-17 10:13 | XMS_ITS | Encounter Summary ---
Author Organization [employer] ([place], [place], [place], [place], [place]) Address [address] [place] [address] Care Team Providers Care Low Pressure Boiler Tender Name Role Phone Maya Torres Reji BELCHER Primary Care Provider [phone] Encounter Details Date Type Department Care Team (Late st Contact Info) Description 10/18/2020 Transcribed Document [facility] [place] Family Medicine [facility] [place] [address] ProviderJean MD [address] [place], [place] [id number] Social History Tobacco Use Types Packs/Day Years [...] On: 10/18/2020 19:09 EDT by SUSHMA MARQUEZ, ESCROW REPRESENTATIVE Triage Across the Room Chief Complaint : [...] : 3 - Urgent Tracking Group : [facility] ED SUSHMA MARQUEZ RN - [...] Problems(Active) At risk for sleep apnea (IMO :46534150 ) Name of Problem: At risk for sleep apnea ; Recorder: SYSTEM, SYSTEM; Confirmation: Confirmed ; Classification: Medical ; Code: [id number] ; Last Updated: 06/16/2018 8:18 EST ; Life Cycle Date: 06/16/2018 ; Life Cycle Status: Active ; Vocabulary: IMO Enlarged prostate (SNOMED CT :090190167 ) Name of Problem: Enlarged prostate ; Recorder: Shavonne Jimenez RN; Confirmation: Confirmed ; Classification: Medical ; Code: 056276797 ; Contributor System: [employer] ; Last Updated: 06/16/2018 8:22 EST ; Life Cycle Date: 06/16/2018 ; Life Cycle Status: Active ; Vocabulary: SNOMED CT Hypertension (SNOMED CT :2399830367 ) Name of Problem: Hypertension ; Recorder: Shavonne Jimenez RN; Confirmation: Confirmed ; Classification: Medical ; Code: 6983989166 ; Contributor System: [employer] ; Last Updated: 06/16/2018 8:21 EST ; Life Cycle Date: 06/16/2018 ; Life Cycle Status: Active ; Vocabulary: SNOMED CT Seasonal allergies (SNOMED CT :7408013209 ) Name of Problem: Seasonal allergies ; Recorder: Shavonne Jimenez RN; Confirmation: Confirmed ; Classification: Medical ; Code: 0515010720 ; Contributor System: [employer] ; Last Updated: 06/16/2018 8:22 EST ; Life Cycle Date: 06/16/2018 ; Life Cycle Status: Active ; Vocabulary: SNOMED CT Diagnoses(Active) Rib/trunk pain-swelling Date: 10/18/2020 ; Diagnosis Type: Reason For Visit ; Confirmation: Complaint of ; Clinical Dx: Rib/trunk pain-swelling ; Classification: Medical ; Clinical Service: Emergency medicine ; Code: PNED ; Probability: 0 ; Diagnosis Code: [id number] ED Height and Weight Height Source : Stated Height Entry Format : [place] Height, Feet : 5 ft(Converted to: 152 cm, 60 Inch) Height, Inches : 8 Inch(Converted to: 0 ft 8 Inch, 20.32 cm) Clinical Height : 172.72 cm Weight Source, ED : Critical estimated dosing weight Weight Entry Format : [place] Weight, Pounds : 240 lb Clinical Dosing Weight : 109.09 kg Body Surface Area (BSA) : 2.21 m2 Body Mass Index : 36.6 kg/m2 (HI) [place] Body Weight (IBW) : 67.45 kg SUSHMA MARQUEZ RN - 10/18/2020 19:09 EDT documented in this encounter Plan of Treatment Not on file documented as of this encounter Visit Diagnoses Not on filedocumented in this encounter Care Teams Low Pressure Boiler Tender Relationship Specialty Start Date End Date Maya Torres, TRIAL MANAGEMENT ASSOCIATE [address] [address] PCP - General Family Medicine 08/27/22 documented as of this encounter
--- OUTSIDE RECORDS SUMMARY | 2025-07-17 10:13 | XMS_ITS | Clinical Summary ---
[facility] Address [address] [place] [address] Care Team Providers Care Deputy Clerk Of Court Name Role Phone Maya Torres Primary Care Provider + [phone] Allergies No known active allergies Medications DULoxetine [...] Completed 10/27/2020 Medical Devices Implanted Type Area Air Quality Manager Device Identifier Shelf Expiration Date Model / Serial / Lot Ld Stim Precsn Trial Lnr 8contct St/Tp50 - [id number] - [id number] Implanted:Qty : 1 on 10/05/2022 by Jerome Morrissey MD at [facility] Implant N/A: Spine Thoracic [employer] 08/30/2024 [id number] / [id number] / Ld Stim Precsn Trial Lnr 8contct St/Tp50 - [id number] - [id number] Implanted:Qty : 1 on 10/05/2022 by Jerome Morrissey MD at [facility] Implant N/A: Spine Thoracic [employer] 08/26/2024 [id number] / [id number] / Anchr Ld Scs Clikx Ea/St/2 - [id number] Implanted:Qty : 1 on 10/05/2022 by Jerome Morrissey MD at [facility] Implant N/A: Spine Thoracic [employer] 01/06/2024 [id number] / / [id number] Kt Ipg Wavewriter Alpha 16/Contct - [id number] - [id number] Implanted:Qty : 1 on 10/05/2022 by Jerome Morrissey MD at [facility] Implant N/A: Spine Thoracic [employer] [id number] 09/13/2024 [id number] / [id number] / [id number] Insurance MEDICARE A & B Member Subscriber Plan / Payer (Ef fective 2017-Present) Name:Stephane Mendieta Member ID:[id number] Relation to Subscriber:Self Name:Stephane Mendieta Subscriber ID:[id number] Payer ID:[id number] Group ID:Not on file Type:Not on file Address: [facility] [id number] [place] [id number] [facility] [employer] Care Teams Deputy Clerk Of Court Relationship Specialty Start Date End Date Maya Torres Kaylyn [place] [place] [phone] PCP - General Nurse Practitioner 09/28/22
--- OUTSIDE RECORDS SUMMARY | 2025-07-17 10:13 | XMS_ITS | Encounter Summary ---
Author Organization [employer] ([place], [place], [place], [place], [place]) Address [address] [place] [address] Care Team Providers Care Cell Biologist Name Role Phone Maya Torres Reji BELCHER Primary Care Provider [phone]- [phone] Encounter Details Date Type Department Care Team (Late st Contact Info) Description 10/27/2020 Transcribed Document [facility] [address] [place] [address] ProviderJean MD [address] [place] [address] Social History Tobacco Use Types Packs/Day Years Used Date Smoking Tobacco: Never Assessed Sex and Gender Information Value Date Recorded Sex Assigned at Not on file Legal Sex Male 5:19 PM CDT Gender Identity Not on file Sexual Orientation Not on file documented as of this encounter Miscellaneous Notes * Cerner Conversion Note - Jaen ProviderMD - 10/27/2020 11:59 AM CDT ED Assessment Entered On: 10/27/2020 12:32 EDT Performed On: 10/27/2020 12:21 EDT by Jasmin Thornton CAR SCRUBBER General-Functional Assess Preferred Communication Mode : Verbal Communication Barrier : None Primary Language : Peruvian Any Spiritual/Cultural Needs or Requests : No [...] Rhythm : Regular Nail Bed Color : [place] Chest Pain : No Capillary Refill, Left [...] mm Pupil Size, Right : 3 mm [place] Coma Scale Link : Open GCS Jasmin Thornton RN - 10/27/2020 12:21 EDT Diana Coma Diana Best Motor Response : Obey commands Diana Best Verbal Response : Oriented [place] Eye Opening Response : Spontaneous [place] Coma Score : 15 Jasmin Thornton RN - 10/27/2020 12:21 EDT Electronically signed by [facility], [facility] Conversion Cnc Technician Cerner at 11/04/2022 3:11 PM CDT documented in this encounter Plan of Treatment Not on file documented as of this encounter Visit Diagnoses Not on filedocumented in this encounter Care Teams Cell Biologist Relationship Specialty Start Date End Date Maya Torres, DIRECT MARKETING ANALYST [address] [phone] PCP - General Family Medicine 08/27/22 documented as of this encounter
--- OUTSIDE RECORDS SUMMARY | 2025-07-17 10:13 | XMS_ITS | Data Portability ---
Author Organization [facility] [place] [facility] Address [address] [facility] [address] [place] [address] Care Team Providers Care Conciliation Court Judge Name Role Phone HERIBERTO PATEL Orthopedic Surgeon [phone] SHARMIN WHITAKER Primary Care Provider Assessment No assessment recorded. Plan of Treatment Reminders Order Date Submit Date Provider Last Modified By Organization Details Last Modified Time Details Appointments [facility]ER[facility] EST[facility]LISH ED 2025 10:30A Nancy GONZALEZ MD Not available Not available Not available Lab surgical pathology study - Excision: Biopsy proven BCC check for clear margins 2024 05 025 [facility], [address] [place] [address], [phone], 11/22/2024 12:08:26 Referral None recorded. Procedures None recorded. Surgeries None recorded. Imaging None recorded. Medication Orders None recorded. Patient TargetsNo targets recorded. Patient InstructionsNo instructions recorded. Reason for Referral None Reported. Results Created Date Observation Date Name Description Value Unit Range Abnormal Flag Note LastModifiedBy Organization Detail LastModifiedTime 10/30/19 25 10/29/2024 SURGI MIRELLA surgical SEE BELOW abnormal [place] topat holog y Repor t NAME: ISATU [...] Out Date: 10/31 10:38 1 Not Available [facility] [address] [facility], [place], [address], 10/31/2024 10:39:11 11/21/19 25 11/20/2024 SURGI MIRELLA surgical SEE BELOW abnormal [place] topat holog y Repor t NAME: LANCE [...] Out Date: 11/22 12:08 1 Not Available [facility] [address] [place] [address], [phone], 11/22/2024 12:08:26 Result Notes None recorded. Problems No Known Problems Procedures Surgical History Date Name Laterality Status Provider Name and Address Organization Details Recorded Time 12/12/19 25 Suture/Staple removal completed Henny Carney [facility] 12/11/2024 07:41:19 11/21/19 25 DAK - Lesion Excision, [place]; trunk,arms,legs completed NUVIA SIDDIQUI JR, MD [address] [place] [address], [address], [facility] 11/20/2024 14:00:58 10/30/19 25 DAK - Biopsy, Tangential completed Janna Zhou [facility] 10/29/2024 10:31:00 12/26/19 24 Biopsy Skin Lesion; Tangential completed Kelsey RAMEY - [facility] 12/26/2023 11:19:57 12/26/19 24 Destruction Premalignant Lesion(s) completed Kelsey RAMEY - [facility] 12/26/2023 11:19:17 06/23/20 23 Biopsy Skin Lesion; Tangential completed Kelsey RAMEY - [facility] 06/23/2023 11:49:07 06/23/20 23 Destruction Premalignant Lesion(s) completed Kelseytiny RAMEY - [facility] 06/23/2023 11:45:10 03/24/20 18 Stress Test - Echo Dobutamine completed GILDA LAGUNAS MD [address] [place], [address], [facility] 03/24/2018 12:52:45 03/24/20 18 Echocardiogram - Dobutamine Stress Test completed GILDA LAGUNAS MD [address] [place], [address] [place] [address] 03/24/2018 12:42:39 Hernia Repair completed Jazmin Short [facility] 02/14/2018 10:09:44 Other completed Jazmin Short [place] - [facility] 02/14/2018 10:10:04 Other completed Jazmin Short [place] - [facility] 02/14/2018 10:10:14 Other completed Jazmin Short [place] - [facility] 02/14/2018 10:10:30 Other completed Jazmin Short [place] - [facility] 02/14/2018 10:10:35 Other completed Jazmin Short [place] - [facility] 03/03/2018 10:09:36 Imaging Results None recorded. [...] Not Available trazodone active Not Available Not Poala ilable Not Available gabapenti n active Not Available Not Available Not Available balsalazi de 250mg TID 06/23 completed Not Available Not Available Not Available duloxetin e active Not Available Not Available Not Available Vitals Date Recorded Systolic And Diastolic Provider Name and Address Organization Details Last Updated DateTime 11/20/2024 131/87 mm[Hg] Henny Tijerina [facility] 11/20/2024 11:58:18 Social History Question Answer Notes LastModified by Organizat ion Details LastModified Time Tobacco Smoking Status Former [facility] 02/14/2018 10:08:49 When Did You Quit Smoking? 16+yearssince lastcigarette Information not available 03/03/2018 Live Alone Or With Others? With Others [email or web address] Information not available 03/03/2018 Marital Status Informatio n not available 03/03/2018 What Was The Date Of Your Most Recent Tobacco Screening? 03/03/2018 Information n ot available 09/04/2019 Sex: Male Functional Status Question Answer Note LastModified by Organizat ion Details LastModified Time What is your level of alcohol consumption? None [email or web address] Information not available 02/14/2018 What is your occupation? [employer] [email or web address] Information not available 03/03/2018 Mental Status None recorded. Family History Relationship Description Onset Age of this Age Resolved Age Notes LastModified by Organization Details LastModified Time Unspecified Relation Family history of malignant neoplasm [email or web address] Not available 2017 10:08:14 Unspecified Relation Hypertensive disorder [email or web address] Not available 2017 10:08:34 Unspecified Relation Arthritis [email or web address] Not available 2017 10:08:43 Medical History Condition Response Arthritis Y Basal Cell Carcinoma Y Past Encounters Encounter ID Performer Location Encounter Start Date Encounter Closed Date Diagnosis/Indication Diagnosis SNOMED-CT Code Diagnosis ICD10 Code Diagnosis IMO Codes Diagnosis Note [id number] DEE FERNÁNDEZ MD CARDIOLOG Y [facility] [address] [place] [address] 03/03/2018 09:58:12 03/03/2018 11:04:15 Atherosclerosis of arteries of the extremities 98777418 I70.209 The patient has normal lower extremity pulses and essentiall y normal CORY. With findings of vascular calcificat ion recommend considerat ion for addition of statins and low-dose aspirin to his regimen. No further testing of his lower extremitie s is indicated at this time. Preoperati ve cardiovascular examination 804474155 Z01.810 The patient requires knee replacemen t. He has no evidence of aortic stenosis, angina or CHF and therefore I would anticipate a low cardiovasc ular risk. In light of the presence of atheroscle rosis, I suggest a preoperati ve dobutamine stress echocardio gram. Results will be forwarded to his orthopedic surgeon once available. [id number] GILDA LAGUNAS MD [facility] CL[facility] [address] [facility] [place] [address] 03/24/2018 08:18:43 03/31/2018 15:16:10 Coronary arteriosclerosis in inupiat artery 0194814709 107 I25.10 [id number] GILDA LAGUNAS MD [facility] [address] [facility] [address] [place] [address] 03/24/2018 08:19:09 03/24/2018 13:23:26 Coronary arteriosclerosis 51547229 I25.10 [id number] GIAN Espino, ACCOUNT AUDITOR [facility] [address] [place] [address] 06/23/2023 10:45:12 06/23/2023 11:56:59 History of malignant neoplasm of skin 813261445 Z85.828 Last skin cancer - 07/2022 - No evidence of recurrence today- Call with any worrisome lesions or if treated lesions return- Return at regular intervals for skin exam as recommende d Multiple b enign melanocytic nevi 870940409 D22.5 - Benign moles seen on exam [...] changing or worrisome lesions Seborrheic keratosis 394 207637 L82.1 - Benign overgrowth s of skin - Hereditary Senile angioma 6835254 I 78.1 - Benign blood vessel growths - Hereditary Solar lentigo 56186678 L 81.4 - Benign brown spots - Sun-induce d Actinic keratosis 578677 007 L57.0 Actinic keratoses are precancero us lesions that may progress to squamous cell carcinoma if untreated. UV light and genetics may increase risk. Treated lesions should blister, scab over, and heal within a few weeks. If treated lesion(s) does not resolve within 1-2 months, patient agrees to follow up for re-evaluat ion. Neoplasm o f uncertain behavior of skin 24046613 D48.5 Recommend blade biopsy. Risks, benefit, and procedure discussed with patient. Consent obtained. [id number] RINKU KELLY MD [address] [address] 08/16/2023 08:26:04 08/19/2023 14:47:05 [id number] GIAN Espino APRN [address] [address] 12/26/2023 10:46:06 12/26/2023 11:27:25 History of malignant neoplasm of skin 533574513 Z85.828 last skin cancer - 06/2023 - No evidence of recurrence today- Call with any worrisome lesions or if treated lesions return- Return at regular intervals for skin exam as recommende d Multiple b enign melanocytic nevi 669387142 D22.5 - Benign moles seen on exam [...] changing or worrisome lesions Seborrheic keratosis 394 239220 L82.1 - Benign overgrowth s of skin - Hereditary Senile angioma 9899101 I 78.1 - Benign blood vessel growths - Hereditary Solar lentigo 83924542 L 81.4 - Benign brown spots - Sun-induce d Neoplasm o f uncertain behavior of skin 00318808 D48.5 Recommend blade biopsy. Risks, benefit, and [...] agrees to follow up for re-evaluat ion. [id number] RINKU KELLY MD [address] [place] [address] 02/14/2024 08:21:31 02/16/2024 14:44:35 [id number] RINKU KELLY MD [address] [address] 03/14/2024 09:34:47 03/22/2024 04:26:11 Postoperative visit 049231553 Z09 Scar 665052224 L90.5 History of malignant basal cell neoplasm of skin 183572047 Z85.828 No evidence of recurrence . Discussed risk of recurrence and new skin cancers, so regular self exam and profession al skin checks are recommende d. Sun protection with broad spectrum SPF 30 sunscreen and broad-brim med hat is recommende d. Sun protection with SPF 30 broad spectrum sunscreen and protective gear discussed. [id number] GIAN Espino APRN [address] [place] [address] 10/29/2024 09:42:30 10/29/2024 10:46:53 History of malignant neoplasm of skin 215281241 Z85.828 Most recent skin cancer 12/2023 - No evidence of recurrence today- Call with any worrisome lesions or if treated lesions return- Return at regular intervals for skin exam as recommende d Multiple b enign melanocytic nevi 249763728 D22.5 - Benign moles seen on exam [...] changing or worrisome lesions Seborrheic keratosis 394 175016 L82.1 - Benign overgrowth s of skin - Hereditary Senile angioma 5139353 I 78.1 - Benign blood vessel growths - Hereditary Solar lentigo 23703073 L 81.4 - Benign brown spots - Sun-induce d Neoplasm o f uncertain behavior of skin 84422587 D48.5 Recommend blade biopsy. Risks, benefit, and procedure discussed with patient. Consent obtained. Discussed the biopsy only takes the top layer of the lesion for testing. This does NOT treat the skin cancer if it is one. Advised they would need to return for more treatment given the type and depth of the skin cancer when the results come in. [id number] MD DANNY [address]LE [address] [place] [address] [facility] [place] [address] 11/13/2024 09:51:03 11/13/2024 12:10:30 [id number] MD DANNY [address] [place] [address] [address] [facility] [place] [address] 11/20/2024 11:19:12 11/20/2024 13:33:38 Basal cell carcinoma of upper extremity 859966938 C44.612 [id number] MD DANNY [address] [place] [address] [place] [address] 11/27/2024 10:53:15 11/27/2024 14:06:05 [id number] NUVIA SIDDIQUI JR, MD [place] [address] [place] [address] 12/04/2024 09:54:33 12/04/2024 11:37:08 [id number] NUVIA SIDDIQUI JR, MD [place] [address] [place] [address] 12/11/2024 09:21:24 12/11/2024 09:46:54 Scar 323955147 L90.5 Wound in appropriat e stages of [...] (MEDICARE SUPPLEMENT) PLAN G Isatu Marta Anam [id number] Isatu Marta Anam 04/26/2025 1 MEDICARE-[place] (MEDICARE) Isatu Marta Anam [id number] Isatu Mendieta 08/05/2023 2 [employer] Isatu Mendieta [id number] Isatu Mendieta 08/05/2023 1 [place] [id number] Isatu Mendieta [id number] Isatu Mendieta Notes Date Note Type Note Provider Name and Address Organization Details Recorded Time 11/13/2024 text/html ROS as noted in the [facility] Patient presents today for an excision to right posterior base of neck for treatment of BCC. Procedure changed to Mohs procedure. Not Available [employer] 11/19/2024 08:16:02 11/20/2024 text/html ROS as noted in the [facility] Patient presents today for an excision to Right Dorsal Forearm and Right Radial Forearm for treatment of biopsy proven BCC. NUVIA SIDDIQUI JR, MD [address] [place] [address], [phone], [facility] 11/20/2024 14:03:55 12/11/2024 text/html ROS as noted in the HPI Patient present today for fourteen day staple removal following Excision procedure on 11/27/2024 toLeft Midline Temporal Scalp for treatment of BCC. NUVIA SIDDIQUI JR, MD [address] [place] [address], [phone], [facility] 12/11/2024 10:11:03
--- OUTSIDE RECORDS SUMMARY | 2025-07-17 10:13 | XMS_ITS | Encounter Summary ---
Author Organization [employer] ([place], [place], [place], [place], [place]) Address [address] [place] [address] Care Team Providers Care Primary Special Educator Name Role Phone Maya oTrres Reji BELCHER Primary Care Provider [phone]- [phone] Encounter Details Date Type Department Care Team (Late st Contact Info) Description 10/18/2020 Transcribed Document [facility] [place] [facility] [place] [address] ProviderJean MD [address] [place] [address] Social History Tobacco Use Types [...] Sawant MD - 10/18/2020 9:38 PM CDT [facility] [place], [place] [id number] ISATU MENDIETA :1950 Visit Time:10/18/2020 Your Visit [...] symptoms worsen. Where: [facility] [address] [place] [address] Business (1) Follow Up with JACKIE LEONARD When Within 2 to 3 days Allergies No Known Medication Allergies Immunizations This Visit No Immunizations Found Medications What How Much When Instructions Next Dose codeine-guaifenesin (codeine-guaifenesin 6.3 mg-100 mg/ 5 mL oral liquid) 7.5 Milliliter(s) Oral Every 6 Hours as needed for for cough Pickup at [facility] dextromethorphan-guaifenesin (dextromethorphan-guaifenesin 5 mg-100 mg/ [...] 24HR 55 mcg/ inh nasal spray) 1 [place](s) Nasal Two Times A Day Pharmacy Information [facility]: [address] [place], [place] [id number] [phone] The home medications listed are only as [...] safe for you. General instructions ??? Take [id number] and prescription medicines only as told by [...] Reviewed: 01/04/2019 Vince Patient Education ?? 2020 My [employer]. Emergency Awareness and Preventative Care STROKE is [...] Assistance with quitting is available by contacting 6-961-YNSJ-NOW. This is a free resource providing counseling, [...] was given the opportunity to ask questions. Patient/Hearing And Speech Assistant Name: Patient/Hearing And Speech Assistant Signature: Relationship to Patient: Clinician/Hospital Hearing And Speech Assistant Signature: Please Provide a Telephone Number Where You Can Be Reached: Is it Permissible To Leave a Message? Date: documented in this encounter Plan of Treatment Not on file documented as of this encounter Visit Diagnoses Not on filedocumented in this encounter Care Teams Primary Special Educator Relationship Specialty Start Date End Date Maya Torres, SIMI [address] [phone] PCP - General Family Medicine 08/27/22 documented as of this encounter
--- OUTSIDE RECORDS SUMMARY | 2025-07-17 10:13 | XMS_ITS | Encounter Summary ---
Author Organization [employer] ([place], [place], [place], [place], [place]) Address [address] [place] [address] Care Team Providers Care Ibm Websphere Portal Developer Name Role Phone Maya Torres SIMI Primary Care Provider [phone]- [phone] Encounter Details Date Type Department Care Team (Late st Contact Info) Description 10/18/2020 Transcribed Document [facility] [place] [address] [place] [address] ProviderJean MD [address] [place], [place] [id number] Social History Tobacco Use Types Packs/Day Years [...] Communication Barrier : None Primary Language : Kazakh Any Spiritual/Cultural Needs or Requests : No [...] EDT Electronically signed by Becky Tejeda Conversion [employer] Charter Bus Driver Cerner at 11/04/2022 3:29 PM CDT documented in this encounter Plan of Treatment Not on file documented as of this encounter Visit Diagnoses Not on filedocumented in this encounter Care Teams Ibm Websphere Portal Developer Relationship Specialty Start Date End Date Maya Torres, ALMOND SORTER [address] [phone] PCP - General Family Medicine 08/27/22 documented as of this encounter
--- OUTSIDE RECORDS SUMMARY | 2025-07-17 10:13 | XMS_ITS | Encounter Summary ---
Author Organization [employer] ([place], [place], [place], [place], [place]) Address [address] [place] [address] Care Team Providers Care News Writer Name Role Phone Maya Torres Reji BELCHER Primary Care Provider +1- [phone] Encounter Details Date Type Department Care Team (Late st Contact Info) Description 10/18/2020 Transcribed Document [facility] [place] [address] [place] [address] ProviderJean MD [address] [place] [id number] Social History Tobacco Use Types Packs/Day Years [...] : Low risk (0) [place] Interventions : [place] precautions for safety used Dee Ocampo, HOLA - 10/18/2020 19:41 EDT Electronically signed by Ileana [facility] Conversion Operating Room Tech Cerner at 11/04/2022 3:34 PM CDT documented in this encounter Plan of Treatment Not on file documented as of this encounter Visit Diagnoses Not on filedocumented in this encounter Care Teams News Writer Relationship Specialty Start Date End Date Maya Torres, DISK SANDER [address] [phone] PCP - General Family Medicine 08/27/22 documented as of this encounter
--- OUTSIDE RECORDS SUMMARY | 2025-07-17 10:13 | XMS_ITS | Encounter Summary ---
Author Organization [employer] ([place], [place], [place], [place], [place]) Address [address] [place] [address] Care Team Providers Care Superintendent Automotive Name Role Phone Maya Torres Reji BELCHER Primary Care Provider +1- [phone] Encounter Details Date Type Department Care Team (Late st Contact Info) Description 06/16/2018 Transcribed Document [facility] [place] [facility] [place] [address] ProviderJean MD [address] [place], [place] [id number] Social History Tobacco Use Types Packs/Day Years Used Date Smoking Tobacco: Never Assessed Sex and Gender Information Value Date Recorded Sex Assigned at Not on file Legal Sex Male 5:19 PM CDT Gender Identity Not on file Sexual Orientation Not on file documented as of this encounter Miscellaneous Notes * Cerner Conversion Note - Jean Sawant MD - 06/16/2018 8: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
[2025-07-17 10:55] VITALS: BP 145/86; PULSE 73; RESP 18; O2SAT 94
[2025-07-17] MEDS: DAPTOmycin 1,000 MG in 0.9 % SODIUM CHLORIDE 50 ML 100 MG IV (10:55)
[2025-07-17 11:37] VITALS: BP 126/90; PULSE 74; RESP 19; O2SAT 94
== END 2025-07-17 23:59 | disposition home or self-care (01) ==
PROVIDERS: PCP Nurse Practitioner; Visit Provider Internal Medicine Infectious Disease
DX: T85.733A Infection and inflammatory reaction due to implanted electronic neurostimulator of spinal cord, electrode (lead), initial encounter (principal)
CPT/HCPCS: 96365; J0878